=== PATIENT | male | born 1955 | race Caucasian/White ===

== ENCOUNTER 2018-08-03 20:40 | Inpatient (IN) | payer MEDICAID, OTHER ==
[2018-08-03] MEDS ORDERED: SOLU-Medrol IV ONE (20:52)
[2018-08-03] MEDS ORDERED: DUONEB *Not for PRN Use IH ONE (20:52)
[2018-08-03] MEDS ORDERED: MAGNESIUM SULFATE 2GM/50ML 2 GM/50 ML BAG IV ONE (21:02)
--- NOTE | 2018-08-03 21:15 | Emergency Department Report ---
ED Chest Pain HPI - General Stated Complaint: CHEST PAIN Time Seen by Provider: 08/03/18 20:43 Source: patient Mode of arrival: Stretcher Limitations: No Limitations - History of Present Illness Initial Comments: 62-year-old male with a past medical history of continued smoking, Osteoarthritis, HIV with undetectable viral load on meds, COPD without home oxygen use, HTN, elevated cholesterol, and family history of CAD presents to the hospital complaints of intermittent shortness of breath and chest tightness for the last several days. Symptoms worse with exertion. Patient does have some wheezing and states he uses a bronchodilator at home one time today with minimal improvement. Patient denies cough, fever, leg edema, or calf tenderness. He is on Eliquis for an unknown reason. He states he has several doctors but can not recall any of the names. He only has a card for Dr. Hurtado who is a pain specialist. Pt a sees a pain specialist for chronic back pain and denies being pain medications at this time. Pt did provide a written list of his meds that will be placed in the chart by RN. - Related Data Home Medications Medication Instructions Recorded Confirmed Last Taken Apixaban [Eliquis] 5 mg PO BID 08/03/18 08/03/18 Unknown Losartan-Hctz 50-12.5 mg Tab 1 each PO DAILY 08/03/18 08/04/18 Unknown Lovastatin 20 mg PO DAILY 08/03/18 08/03/18 Unknown Tamsulosin [Flomax] 0.4 mg PO DAILY 08/03/18 08/04/18 Unknown Triumeq 600-50-300 mg Tablet 1 each DAILY 08/03/18 08/04/18 Unknown clonazePAM 1 mg PO PRN PRN 08/03/18 08/04/18 1 Day Ago ~08/03/18 Previous Rx's Medication Instructions Recorded Last Taken Type Prednisone [predniSONE 10 mg 10 mg PO QDAY #5 tab.ds.pk 01/23/13 Unknown Rx (6-Day Pack, 21 Tabs)] traMADol [Ultram] 50 mg PO Q6HR PRN #20 tablet 12/21/15 Unknown Rx Allergies Allergy/AdvReac Type Severity Reaction Status Date / Time No Known Allergies Allergy Verified 01/22/13 22:23 Heart Score - HEART Score History: Moderately suspicious EKG: Normal Age: 45-65 Risk factors: > 3 risk factors or hx of atherosclerotic disease Troponin: < normal limit HEART Score: 4 ED Review of Systems ROS: Stated complaint: CHEST PAIN Other details as noted in HPI Comment: All other systems reviewed and negative ED Past Medical Hx - Past Medical History Hx Hypertension: Yes Hx COPD: Yes Hx HIV: Yes Additional medical history: Elevated Cholesterol & Chronic back pain. - Social History Smoking Status: Former Smoker Substance Use Type: None - Medications Home Medications: Home Medications Medication Instructions Recorded Confirmed Last Taken Type Prednisone [predniSONE 10 mg 10 mg PO QDAY #5 tab.ds.pk 01/23/13 08/04/18 Unknown Rx (6-Day Pack, 21 Tabs)] traMADol [Ultram] 50 mg PO Q6HR PRN #20 tablet 12/21/15 08/04/18 Unknown Rx Apixaban [Eliquis] 5 mg PO BID 08/03/18 08/03/18 Unknown History Losartan-Hctz 50-12.5 mg Tab 1 each PO DAILY 08/03/18 08/04/18 Unknown History Lovastatin 20 mg PO DAILY 08/03/18 08/03/18 Unknown History Tamsulosin [Flomax] 0.4 mg PO DAILY 08/03/18 08/04/18 Unknown History Triumeq 600-50-300 mg Tablet 1 each DAILY 08/03/18 08/04/18 Unknown History clonazePAM 1 mg PO PRN PRN 08/03/18 08/04/18 1 Day Ago History ~08/03/18 ED Physical Exam - Other Other exam information: General: No limitations, patient is alert in no acute distress Head exam: Atraumatic, normocephalic Eyes exam: Normal appearance ENT: Moist mucous membrane Neck exam: Normal inspection, full range of motion, no meningismus nontender Respiratory exam: Bilateral expiratory wheezing, tachypnea or accessory muscle use Cardiovascular: Normal rate and rhythm, normal heart sounds Abdomen: Soft, nondistended, and nontender, with normal bowel sounds, no rebound, or guarding Extremity: Full range of motion normal inspection no deformity, no calf tenderness or edema Back: Normal Inspection, full range of motion, no tenderness Neurologic: Alert, oriented x3, cranial nerves intact, no motor or sensory deficit Psychiatric: normal affect, normal mood Skin: Warm, dry, intact ED Course Vital Signs 08/03/18 08/03/18 08/03/18 20:53 20:56 21:00 Temperature 98.3 F Pulse Rate 87 85 86 Pulse Rate [ 82 Right Lower Lobe] Respiratory 16 18 18 Rate Respiratory 18 Rate [Right Lower Lobe] Blood Pressure 132/91 132/91 132/91 O2 Sat by Pulse 99 99 100 Oximetry 08/03/18 08/03/18 08/03/18 21:25 21:30 22:00 Temperature Pulse Rate 88 90 Pulse Rate [ Right Lower Lobe] Respiratory 18 18 42 H Rate Respiratory Rate [Right Lower Lobe] Blood Pressure 131/86 131/86 O2 Sat by Pulse 99 97 97 Oximetry 08/03/18 08/03/18 08/03/18 22:37 23:00 23:31 Temperature Pulse Rate 85 82 86 Pulse Rate [ Right Lower Lobe] Respiratory 13 22 16 Rate Respiratory Rate [Right Lower Lobe] Blood Pressure 131/86 131/84 131/84 O2 Sat by Pulse 96 93 94 Oximetry 08/04/18 00:00 Temperature Pulse Rate 80 Pulse Rate [ Right Lower Lobe] Respiratory 18 Rate Respiratory Rate [Right Lower Lobe] Blood Pressure 141/82 O2 Sat by Pulse 96 Oximetry GUIDO score - Guido Score Age > 65: (0) No Aspirin use within the Past 7 Days: (0) No 3 or more CAD Risk Factors: (1) Yes 2 or more Angina events in past 24 hrs: (1) Yes Known CAD with more than 50% Stenosis: (0) No Elevated Cardiac Markers: (0) No ST Deviation Greater than 0.5mm: (0) No GUIDO Score: 2 ED Medical Decision Making - Lab Data Result diagrams: 08/03/18 21:04 08/03/18 21:04 Lab Results 08/03/18 08/03/18 08/03/18 Range/Units 21:04 21:04 21:04 WBC 8.6 (4.5-11.0) K/mm3 RBC 3.55 L (3.65-5.03) M/mm3 Hgb 9.9 L (11.8-15.2) gm/dl Hct 30.8 L (35.5-45.6) % MCV 87 (84-94) fl MCH 28 (28-32) pg MCHC 32 (32-34) % RDW 16.8 H (13.2-15.2) % Plt Count 313 (140-440) K/mm3 Lymph % (Auto) 24.4 (13.4-35.0) % Hunt % (Auto) 11.5 H (0.0-7.3) % Eos % (Auto) 1.4 (0.0-4.3) % Baso % (Auto) 0.5 (0.0-1.8) % Lymph # 2.1 (1.2-5.4) K/mm3 Hunt # 1.0 H (0.0-0.8) K/mm3 Eos # 0.1 (0.0-0.4) K/mm3 Baso # 0.0 (0.0-0.1) K/mm3 Seg Neutrophils % 62.2 (40.0-70.0) % Seg Neutrophils # 5.3 (1.8-7.7) K/mm3 PT 14.4 (12.2-14.9) Sec. INR 1.05 (0.87-1.13) APTT 24.7 (24.2-36.6) Sec. Sodium 143 (137-145) mmol/L Potassium 3.9 (3.6-5.0) mmol/L Chloride 101.8 (98-107) mmol/L Carbon Dioxide 28 (22-30) mmol/L Anion Gap 17 mmol/L BUN 22 H (9-20) mg/dL Creatinine 1.8 H (0.8-1.5) mg/dL Estimated GFR 38 ml/min BUN/Creatinine Ratio 12 % Glucose 116 H (75-100) mg/dL Calcium 8.2 L (8.4-10.2) mg/dL Total Bilirubin 0.30 (0.1-1.2) mg/dL AST 29 (5-40) units/L ALT 17 (7-56) units/L Alkaline Phosphatase 60 (35-129) units/L Troponin T < 0.010 (0.00-0.029) ng/mL Total Protein 7.1 (6.3-8.2) g/dL Albumin 3.8 L (3.9-5) g/dL Albumin/Globulin Ratio 1.2 % - EKG Data -: EKG Interpreted by Mi EKG shows normal: sinus rhythm, axis (82), QRS complexes (qrs 106), ST-T waves (no stemi/t inv) Rate: normal - Radiology Data Radiology results: report reviewed PROCEDURE: XR CHEST 1V AP TECHNIQUE: Chest radiograph single view. HISTORY: sob, cp COMPARISONS: None . FINDINGS: Heart: Normal. Mediastinum/Vessels: Normal. Lungs/Pleural space: No infiltrate, effusion, or pneumothorax. Bony thorax: No acute osseous abnormality. Life support devices: None. IMPRESSION: No radiographic evidence of acute cardiopulmonary abnormality. - Medical Decision Making pt tx with nebs and steroids cp and sob due to copd vs cardiac unclear hx on eliquis plan to admit for further tx trop and ekg unremarkable - Differential Diagnosis copd, mi, unstable angina, pneumothorax, PE Critical Care Time: No Critical care attestation.: If time is entered above; I have spent that time in minutes in the direct care of this critically ill patient, excluding procedure time. ED Disposition Clinical Impression: COPD exacerbation, Chest pain, HIV (human immunodeficiency virus infection), Anticoagulant long-term use Disposition: OP ADMIT IP TO THIS HOSP Is pt being admited?: Yes Condition: Stable Time of Disposition: 22:07 (Hospitalist)
[2018-08-03 21:30] LABS: Basophils % (Auto) 0.5 % (0.0-1.8); Eosinophils # (Auto) 0.1 K/mm3 (0.0-0.4); Eosinophils % (Auto) 1.4 % (0.0-4.3); Hematocrit 30.8 % (35.5-45.6); Hemoglobin 9.9 gm/dl (11.8-15.2); Lymphocytes # (Auto) 2.1 K/mm3 (1.2-5.4); Lymphocytes % (Auto) 24.4 % (13.4-35.0); Mean Corpuscular HGB Conc 32 % (32-34); Mean Corpuscular Volume 87 fl (84-94); Monocytes % (Auto) 11.5 % (0.0-7.3); Platelet Count 313 K/mm3 (140-440); Red Blood Count 3.55 M/mm3 (3.65-5.03); Red Cell Distribution Width 16.8 % (13.2-15.2)
[2018-08-03 21:33] LABS: INR 1.05 (0.87-1.13)
[2018-08-03 21:34] LABS: Partial Thromboplastin Time 24.7 Sec. (24.2-36.6)
[2018-08-03 21:36] LABS: Alanine Aminotransferase 17 units/L (7-56); Albumin 3.8 g/dL (3.9-5); BUN/Creatinine Ratio 12; Blood Urea Nitrogen 22 mg/dL (9-20); Calcium 8.2 mg/dL (8.4-10.2); Hemolysis Index 3
--- NOTE | 2018-08-03 22:01 | XRay Report ---
PROCEDURE: XR CHEST 1V AP TECHNIQUE: Chest radiograph single view. HISTORY: sob, cp COMPARISONS: None . FINDINGS: Heart: Normal. Mediastinum/Vessels: Normal. Lungs/Pleural space: No infiltrate, effusion, or pneumothorax. Bony thorax: No acute osseous abnormality. Life support devices: None. IMPRESSION: No radiographic evidence of acute cardiopulmonary abnormality. This document is electronically signed by Kathleen Mcfadden MD., August 03 2018 09:59:09 PM ET
[2018-08-03] MEDS ORDERED: SODIUM CHLORIDE FLUSH SYRINGE 10 ML IV PRN (22:25)
[2018-08-03] MEDS ORDERED: ZOFRAN IV PRN (22:25)
[2018-08-03] MEDS ORDERED: PROVENTIL IH PRN (22:25)
[2018-08-03] MEDS ORDERED: DILAUDID IV PRN (22:28)
[2018-08-03] MEDS ORDERED: NITROSTAT SL PRN (22:29)
[2018-08-03] MEDS ORDERED: APRESOLINE IV PRN (22:35)
--- NOTE | 2018-08-03 23:02 | History and Physical Report ---
<VINNY LIN - Last Filed: 08/03/18 23:09> History of Present Illness Date of examination: 08/03/18 Date of admission: 08/03/18 22:26 Chief complaint: Chest pain and shortness of breath History of present illness: 62-year-old male who is an ongoing smoker with history of chronic back pain (sees Dr. Hurtado), DVT anticoagulated on Eliquis, COPD, HIV (undetectable viral loads compliant with antiretroviral meds), hypertension, hyperlipidemia who presents to [facility] ED with complaints of intermittent substernal chest for a day. Patient states that his symptoms began early this morning while sleeping. He was awakened from sleep with chest pain. He describes his pain as intermittent squeezing pressure with radiation to left upper extremity and posterior cervical area . He rates it 10/10. His pain is aggravated with exertion and relieved with pain medicine. Additionally patient complains of intermittent chest tightness, wheezing and shortness of breath for the past 2-3 days. Patient states that he tried using has bronchodilators with minimal relief. Admits: Cough, nausea, intermittent chest pain, shortness of breath at rest, wheezing Denies fever, vomiting, sputum production, hemoptysis, headache, visual disturb ances, gait dysfunction, or recent sick contacts Past History Past Medical History: COPD, DVT, HIV/AIDS, hypertension, hyperlipidemia Past Surgical History: No surgical history Social history: smoking (X4 to 5 cigarettes per day) Family history: no significant family history Medications and Allergies Allergies Allergy/AdvReac Type Severity Reaction Status Date / Time No Known Allergies Allergy Verified 01/22/13 22:23 Home Medications Medication Instructions Recorded Confirmed Last Taken Type Prednisone [predniSONE 10 mg 10 mg PO QDAY #5 tab.ds.pk 01/23/13 Unknown Rx (6-Day Pack, 21 Tabs)] traMADol [Ultram] 50 mg PO Q6HR PRN #20 tablet 12/21/15 Unknown Rx Apixaban [Eliquis] 5 mg PO BID 08/03/18 08/03/18 Unknown History Losartan-Hctz 50-12.5 mg Tab mg PO 08/03/18 Unknown History Lovastatin 20 mg PO DAILY 08/03/18 08/03/18 Unknown History Tamsulosin [Flomax] PO DAILY 08/03/18 Unknown History Triumeq 600-50-300 mg Tablet 50 DAILY 08/03/18 Unknown History clonazePAM 1 mg PO PRN 08/03/18 Unknown History Active Meds: Active Medications Acetaminophen (Tylenol) 650 mg PO Q4H PRN PRN Reason: Pain MILD(1-3)/Fever >100.5/KOENIG Albuterol (Proventil) 2.5 mg IH Q3HRT PRN PRN Reason: Shortness Of Breath Albuterol/Ipratropium (Duoneb *Not For Prn Use*) 1 ampul IH Q6HRT [facility] Amlodipine Besylate (Norvasc) 10 mg PO QDAY [facility] Apixaban (Eliquis) 5 mg PO BID [facility]; Protocol Aspirin (Baby Aspirin) 81 mg PO QDAY [facility] Atorvastatin Calcium (Lipitor) 40 mg PO QHS [facility] Budesonide (Pulmicort) 0.5 mg IH Q12HRT [facility] Docusate Sodium (Colace) 100 mg PO BID [facility] Hydralazine HCl (Apresoline) 10 mg IV Q4HR PRN PRN Reason: Blood Pressure Hydromorphone HCl (Dilaudid) 0.5 mg IV Q3H PRN PRN Reason: Pain , Severe (7-10) Stop: 08/04/18 23:59 Sodium Chloride (Nacl 0.9% 1000 Ml) 1,000 mls @ 100 mls/hr IV DIRECT [facility] Methylprednisolone Sodium Succinate (Solu-Medrol) 60 mg IV Q8HR [facility] Miscellaneous Medication (Triumeq 600-50-300 Mg Tablet) 600 mg PO DAILY [facility] Morphine Sulfate (Morphine) 2 mg IV Q4H PRN PRN Reason: Pain, Moderate (4-6) Stop: 08/04/18 23:59 Nicotine (Habitrol) 14 mg TD QDAY [facility] Nitroglycerin (Nitrostat) 0.4 mg SL Q5M PRN PRN Reason: Chest Pain Ondansetron HCl (Zofran) 4 mg IV Q8H PRN PRN Reason: Nausea And Vomiting Sodium Chloride (Sodium Chloride Flush Syringe 10 Ml) 10 ml IV BID [facility] Sodium Chloride (Sodium Chloride Flush Syringe 10 Ml) 10 ml IV PRN PRN PRN Reason: LINE FLUSH Tamsulosin HCl (Flomax) 0.4 mg PO DAILY [facility] Review of Systems All systems: negative (reviewed in no additional unremarkable complaints except as noted below) Cardiovascular: chest pain (with radiation to left upper extremity and left posterior cervical area), shortness of breath Respiratory: cough, congestion, wheezing Exam - Physical Exam Narrative exam: Physical exam General appearance: Present: No acute distress, alert and oriented 3, poor historian - EENT Eyes: Present: PERRL, EOM intact ENT: hearing intact, poor dentition - Neck Neck: Present: supple, normal ROM - Respiratory Respiratory effort: Non-labored Respiratory: Scattered wheezing with poor air movement - Cardiovascular Heart rate: 82 (bpm) Rhythm: Sinus rhythm Heart Sounds: Present: S1 & S2. Absent: rub, click - Extremities Extremities: no ischemia, pulses intact, - Peripheral Assessment Peripheral Pulses: within normal limits - Abdominal General gastrointestinal: soft, non-tender, normal bowel sounds - Integumentary Integumentary: Present: warm, dry - Musculoskeletal Musculoskeletal: generalized weakness -Neurological Neurological: Able to move all extremities - Psychiatric Psychiatric: cooperative - Constitutional Vitals: Temp Pulse Resp BP Pulse Ox 98.3 F 85 13 131/86 96 08/03/18 20:56 08/03/18 22:37 08/03/18 22:37 08/03/18 22:37 08/03/18 22:37 Results - Labs CBC & Chem 7: 08/03/18 21:04 08/03/18 21:04 Labs: Laboratory Last Values WBC 8.6 K/mm3 (4.5-11.0) 08/03/18 21:04 RBC 3.55 M/mm3 (3.65-5.03) L 08/03/18 21:04 Hgb 9.9 gm/dl (11.8-15.2) L 08/03/18 21:04 Hct 30.8 % (35.5-45.6) L 08/03/18 21:04 MCV 87 fl (84-94) 08/03/18 21:04 MCH 28 pg (28-32) 08/03/18 21:04 MCHC 32 % (32-34) 08/03/18 21:04 RDW 16.8 % (13.2-15.2) H 08/03/18 21:04 Plt Count 313 K/mm3 (140-440) 08/03/18 21:04 Lymph % (Auto) 24.4 % (13.4-35.0) 08/03/18 21:04 [place] % (Auto) 11.5 % (0.0-7.3) H 08/03/18 21:04 Eos % (Auto) 1.4 % (0.0-4.3) 08/03/18 21:04 Baso % (Auto) 0.5 % (0.0-1.8) 08/03/18 21:04 Lymph # 2.1 K/mm3 (1.2-5.4) 08/03/18 21:04 [place] # 1.0 K/mm3 (0.0-0.8) H 08/03/18 21:04 Eos # 0.1 K/mm3 (0.0-0.4) 08/03/18 21:04 Baso # 0.0 K/mm3 (0.0-0.1) 08/03/18 21:04 Seg Neutrophils % 62.2 % (40.0-70.0) 08/03/18 21:04 Seg Neutrophils # 5.3 K/mm3 (1.8-7.7) 08/03/18 21:04 PT 14.4 Sec. (12.2-14.9) 08/03/18 21:04 INR 1.05 (0.87-1.13) 08/03/18 21:04 APTT 24.7 Sec. (24.2-36.6) 08/03/18 21:04 Sodium 143 mmol/L (137-145) 08/03/18 21:04 Potassium 3.9 mmol/L (3.6-5.0) 08/03/18 21:04 Chloride 101.8 mmol/L (98-107) 08/03/18 21:04 Carbon Dioxide 28 mmol/L (22-30) 08/03/18 21:04 17 mmol/L 08/03/18 21:04 BUN 22 mg/dL (9-20) H 08/03/18 21:04 1.8 mg/dL (0.8-1.5) H 08/03/18 21:04 Estimated GFR 38 ml/min 08/03/18 21:04 12 % 08/03/18 21:04 Glucose 116 mg/dL (75-100) H 08/03/18 21:04 Calcium 8.2 mg/dL (8.4-10.2) L 08/03/18 21:04 0.30 mg/dL (0.1-1.2) 08/03/18 21:04 AST 29 units/L (5-40) 08/03/18 21:04 ALT 17 units/L (7-56) 08/03/18 21:04 60 units/L (35-129) 08/03/18 21:04 < 0.010 ng/mL (0.00-0.029) 08/03/18 21:04 7.1 g/dL (6.3-8.2) 08/03/18 21:04 3.8 g/dL (3.9-5) L 08/03/18 21:04 1.2 % 08/03/18 21:04 - Imaging and Cardiology EKG: image reviewed (sinus rhythm 82 bpm) Chest x-ray: report reviewed (No radiographic evidence of acute cardiopulmonary abnormality.), image reviewed Assessment and Plan Assessment and plan: 62-year-old male who is an ongoing smoker with history of chronic back pain (Dr. Hurtado), DVT anticoagulated on Eliquis, COPD, HIV (undetectable viral load compliant with antiretroviral meds), hypertension, hyperlipidemia who presents to [facility] ED with complaints of intermittent substernal chest radiating to left upper extremity and posterior cervical area for a day. Troponin negative 1. EKG unrevealing acute ischemic abnormalities. CXR unrevealing for acute cardiopulmonary abnormalities. On auscultation scattered wheezing with poor air movement noted. Patient has wet cough with no sputum production. We will admit to telemetry for further evaluation. R/O ACS AE COPD HTN HLD HIV Hx DVT on Eliquis Dehydration ANGELIC Tobacco abuse Plan: Continue supportive care Continuous telemetry monitoring Stress test (treadmill) pending for a.m. ASA 81mg, Lipitor 40 mg daily at bedtime Continue anti-retroviral medication Monitor BP Norvasc 10 mg daily; IV hydralazine when necessary Continue this 5 mg twice a day Hydrate with NS 100 mL/hr Monitor BUN/creatinine if no improvement will consider nephrology consult Counseled for smoking cessation, start nicotine patch Start Levaquin 500 mg every 24 hours 5 doses Schedule DuoNeb nebs and Pulmicort, albuterol when necessary Mucinex DVT PPX on Eliquis and SCD's Advance Directives: No VTE prophylaxis?: Chemical Plan of care discussed with patient/family: Yes <JUAN MTIMOTHY Gilliam - Last Filed: 08/03/18 23:53> History of Present Illness Date of admission: 08/03/18 22:26 Medications and Allergies Active Meds: Active Medications Abacavir Sulfate (Ziagen) 600 mg PO DAILY [facility] Acetaminophen (Tylenol) 650 mg PO Q4H PRN PRN Reason: Pain MILD(1-3)/Fever >100.5/KOENIG Albuterol (Proventil) 2.5 mg IH Q3HRT PRN PRN Reason: Shortness Of Breath Albuterol/Ipratropium (Duoneb *Not For Prn Use*) 1 ampul IH Q6HRT [facility] Amlodipine Besylate (Norvasc) 10 mg PO QDAY [facility] Apixaban (Eliquis) 5 mg PO BID [facility]; Protocol Aspirin (Baby Aspirin) 81 mg PO QDAY [facility] Atorvastatin Calcium (Lipitor) 40 mg PO QHS [facility] Budesonide (Pulmicort) 0.5 mg IH Q12HRT [facility] Docusate Sodium (Colace) 100 mg PO BID [facility] Hydralazine HCl (Apresoline) 10 mg IV Q4HR PRN PRN Reason: Blood Pressure Hydromorphone HCl (Dilaudid) 0.5 mg IV Q3H PRN PRN Reason: Pain , Severe (7-10) Stop: 08/04/18 23:59 Sodium Chloride (Nacl 0.9% 1000 Ml) 1,000 mls @ 100 mls/hr IV DIRECT [facility] Levofloxacin/Dextrose (Levaquin 500mg/100ml) 500 mg in 100 mls @ 100 mls/hr IV ONCE ONE; Protocol Stop: 08/04/18 10:59 Levofloxacin/Dextrose (Levaquin 250mg/50ml) 250 mg in 50 mls @ 50 mls/hr IV Q24HR [facility]; Protocol Lamivudine (Epivir) 300 mg PO DAILY [facility] Methylprednisolone Sodium Succinate (Solu-Medrol) 60 mg IV Q8HR [facility] Morphine Sulfate (Morphine) 2 mg IV Q4H PRN PRN Reason: Pain, Moderate (4-6) Stop: 08/04/18 23:59 Nicotine (Habitrol) 14 mg TD QDAY [facility] Nitroglycerin (Nitrostat) 0.4 mg SL Q5M PRN PRN Reason: Chest Pain Ondansetron HCl (Zofran) 4 mg IV Q8H PRN PRN Reason: Nausea And Vomiting Sodium Chloride (Sodium Chloride Flush Syringe 10 Ml) 10 ml IV BID [facility] Sodium Chloride (Sodium Chloride Flush Syringe 10 Ml) 10 ml IV PRN PRN PRN Reason: LINE FLUSH Tamsulosin HCl (Flomax) 0.4 mg PO DAILY [facility] Exam - Constitutional Vitals: Temp Pulse Resp BP Pulse Ox 98.3 F 85 13 131/86 96 08/03/18 20:56 08/03/18 22:37 08/03/18 22:37 08/03/18 22:37 08/03/18 22:37 Results - Labs CBC & Chem 7: 08/03/18 21:04 08/03/18 21:04 Labs: Laboratory Last Values WBC 8.6 K/mm3 (4.5-11.0) 08/03/18 21:04 RBC 3.55 M/mm3 (3.65-5.03) L 08/03/18 21:04 Hgb 9.9 gm/dl (11.8-15.2) L 08/03/18 21:04 Hct 30.8 % (35.5-45.6) L 08/03/18 21:04 MCV 87 fl (84-94) 08/03/18 21:04 MCH 28 pg (28-32) 08/03/18 21:04 MCHC 32 % (32-34) 08/03/18 21:04 RDW 16.8 % (13.2-15.2) H 08/03/18 21:04 Plt Count 313 K/mm3 (140-440) 08/03/18 21:04 Lymph % (Auto) 24.4 % (13.4-35.0) 08/03/18 21:04 [place] % (Auto) 11.5 % (0.0-7.3) H 08/03/18 21:04 Eos % (Auto) 1.4 % (0.0-4.3) 08/03/18 21:04 Baso % (Auto) 0.5 % (0.0-1.8) 08/03/18 21:04 Lymph # 2.1 K/mm3 (1.2-5.4) 08/03/18 21:04 [place] # 1.0 K/mm3 (0.0-0.8) H 08/03/18 21:04 Eos # 0.1 K/mm3 (0.0-0.4) 08/03/18 21:04 Baso # 0.0 K/mm3 (0.0-0.1) 08/03/18 21:04 Seg Neutrophils % 62.2 % (40.0-70.0) 08/03/18 21:04 Seg Neutrophils # 5.3 K/mm3 (1.8-7.7) 08/03/18 21:04 PT 14.4 Sec. (12.2-14.9) 08/03/18 21:04 INR 1.05 (0.87-1.13) 08/03/18 21:04 APTT 24.7 Sec. (24.2-36.6) 08/03/18 21:04 Sodium 143 mmol/L (137-145) 08/03/18 21:04 Potassium 3.9 mmol/L (3.6-5.0) 08/03/18 21:04 Chloride 101.8 mmol/L (98-107) 08/03/18 21:04 Carbon Dioxide 28 mmol/L (22-30) 08/03/18 21:04 17 mmol/L 08/03/18 21:04 BUN 22 mg/dL (9-20) H 08/03/18 21:04 1.8 mg/dL (0.8-1.5) H 08/03/18 21:04 Estimated GFR 38 ml/min 08/03/18 21:04 12 % 08/03/18 21:04 Glucose 116 mg/dL (75-100) H 08/03/18 21:04 Calcium 8.2 mg/dL (8.4-10.2) L 08/03/18 21:04 0.30 mg/dL (0.1-1.2) 08/03/18 21:04 AST 29 units/L (5-40) 08/03/18 21:04 ALT 17 units/L (7-56) 08/03/18 21:04 60 units/L (35-129) 08/03/18 21:04 < 0.010 ng/mL (0.00-0.029) 08/03/18 21:04 7.1 g/dL (6.3-8.2) 08/03/18 21:04 3.8 g/dL (3.9-5) L 08/03/18 21:04 1.2 % 08/03/18 21:04 Assessment and Plan Assessment and plan: I saw and evaluated the patient. I agree with the findings and the plan of care as documented in the Nurse Practitioner's~note, with the following corrections and additions.
[2018-08-04] MEDS: NACL 0.9% 1000 ML 1,000 ML IV SCH (00:56)
[2018-08-04] MEDS: SODIUM CHLORIDE FLUSH SYRINGE 10 ML IV SCH ×3 (00:57→22:00)
[2018-08-04] MEDS: DUONEB *Not for PRN Use IH SCH ×4 (01:39→19:20)
[2018-08-04 05:35] LABS: Hematocrit 29.3 % (35.5-45.6); Hemoglobin 9.6 gm/dl (11.8-15.2); Mean Corpuscular HGB Conc 33 % (32-34); Mean Corpuscular Volume 86 fl (84-94); Platelet Count 278 K/mm3 (140-440); Red Blood Count 3.41 M/mm3 (3.65-5.03); Red Cell Distribution Width 16.5 % (13.2-15.2)
[2018-08-04] MEDS: SOLU-Medrol IV SCH ×3 (05:43→22:00)
[2018-08-04 06:00] LABS: Calcium 7.7 mg/dL (8.4-10.2)
[2018-08-04] MEDS ORDERED: LEXISCAN IV ONE ×2 (08:18)
[2018-08-04 08:53] LABS: Basophils % (Manual) 0 % (0.0-1.8); Eosinophils % (Manual) 0 % (0.0-4.3); Monocytes % (Manual) 0 % (0.0-7.3); Total Cells Counted 100
[2018-08-04 08:54] LABS: Anisocytosis Few; Ovalocytes Few; Platelet Estimate Consistent w Auto
[2018-08-04] MEDS: BABY ASPIRIN PO SCH (09:57)
[2018-08-04] MEDS: COLACE PO SCH ×2 (09:57→22:00)
[2018-08-04] MEDS: ELIQUIS PO SCH ×2 (09:58→22:00)
[2018-08-04] MEDS: FLOMAX PO SCH (09:58)
[2018-08-04] MEDS: HABITROL TD SCH (09:58)
[2018-08-04] MEDS ORDERED: LEVAQUIN 500MG/100ML 500 MG/100 ML BAG IV ONE (10:00)
[2018-08-04] MEDS ORDERED: NON-FORMULARY (Triumeq 600-50-300 Mg Tablet 600 MG) PO SCH (10:00)
[2018-08-04] MEDS ORDERED: LEVAQUIN 500MG/100ML 500 MG/100 ML BAG IV SCH (10:00)
[2018-08-04] MEDS: NORVASC PO SCH (10:12)
[2018-08-04] MEDS: TYLENOL PO PRN (10:36)
[2018-08-04] MEDS: MORPHINE IV PRN ×2 (10:48→17:07)
[2018-08-04] MEDS: PULMICORT IH SCH ×2 (10:52→19:20)
[2018-08-04] MEDS: ZIAGEN PO SCH (13:39)
[2018-08-04] MEDS: EPIVIR PO SCH (13:42)
[2018-08-04] MEDS: TIVICAY PO SCH (13:43)
--- NOTE | 2018-08-04 23:32 | Progress Note ---
Assessment and Plan Assessment and plan: 62-year-old male who is an ongoing smoker with history of chronic back pain (Dr. Hurtado), DVT anticoagulated on Eliquis, COPD, HIV (undetectable viral load compliant with antiretroviral meds), hypertension, hyperlipidemia who presents to [facility] with complaints of intermittent substernal chest radiating to left upper extremity and posterior cervical area for a day. Troponin negative 1. EKG unrevealing acute ischemic abnormalities. CXR unrevealing for acute cardiopulmonary abnormalities. On auscultation scattered wheezing with poor air movement noted. Patient has wet cough with no sputum production. We will admit to telemetry for further evaluation. Atypical chest pain secondary to COPD AE COPD HTN HLD HIV Hx DVT on Eliquis Dehydration ANGELIC Tobacco abuse Plan: Continue supportive care Continuous telemetry monitoring Stress test (treadmill) pending for a.m. ASA 81mg, Lipitor 40 mg daily at bedtime Continue anti-retroviral medication Monitor BP Norvasc 10 mg daily; IV hydralazine when necessary Continue this 5 mg twice a day Monitor BUN/creatinine if no improvement will consider nephrology consult Counseled for smoking cessation, start nicotine patch Continue Levaquin 500 mg every 24 hours 5 doses Schedule DuoNeb nebs and Pulmicort, albuterol when necessary Mucinex DVT PPX on Eliquis and SCD's History Interval history: Patient seen and examined, still wheezing. No new complaints. Hospitalist Physical - Physical exam Narrative exam: VITAL SIGNS: Reviewed. GENERAL: The patient appeared well nourished and normally developed, Vital signs as documented. HEAD: No signs of head trauma. EYES: Pupils are equal. Extraocular motions intact. EARS: Hearing grossly intact. MOUTH: Oropharynx is normal. NECK: No adenopathy, no JVD. CHEST: Chest with wheezin breath sounds bilaterally. No rales, or rhonchi. CARDIAC: Regular rate and rhythm. S1 and S2, without murmurs, gallops, or rubs. VASCULAR: No Edema. Peripheral pulses normal and equal in all extremities. ABDOMEN: Soft, non tender and non distended. No rebound or guarding, and no masses palpated. Bowel Sounds normal. MUSCULOSKELETAL: Good range of motion of all major joints. Extremities without clubbing, cyanosis or edema. NEUROLOGIC EXAM: Alert and oriented x 3 No focal sensory or strength deficits. Speech normal. Follows commands. PSYCHIATRIC: Mood normal. SKIN: No rash or lesions. - Constitutional Vitals: Temp Pulse Resp BP Pulse Ox 98.6 F 91 H 17 145/85 99 08/04/18 19:25 08/04/18 19:31 08/04/18 19:31 08/04/18 19:25 08/04/18 19:25 Results - Labs CBC & Chem 7: 08/04/18 04:48 08/04/18 04:48 Labs: Laboratory Last Values WBC 3.9 K/mm3 (4.5-11.0) L 08/04/18 04:48 RBC 3.41 M/mm3 (3.65-5.03) L 08/04/18 04:48 Hgb 9.6 gm/dl (11.8-15.2) L 08/04/18 04:48 Hct 29.3 % (35.5-45.6) L 08/04/18 04:48 MCV 86 fl (84-94) 08/04/18 04:48 MCH 28 pg (28-32) 08/04/18 04:48 MCHC 33 % (32-34) 08/04/18 04:48 RDW 16.5 % (13.2-15.2) H 08/04/18 04:48 Plt Count 278 K/mm3 (140-440) 08/04/18 04:48 Lymph % (Auto) 24.4 % (13.4-35.0) 08/03/18 21:04 [place] % (Auto) 11.5 % (0.0-7.3) H 08/03/18 21:04 Eos % (Auto) 1.4 % (0.0-4.3) 08/03/18 21:04 Baso % (Auto) 0.5 % (0.0-1.8) 08/03/18 21:04 Lymph # 2.1 K/mm3 (1.2-5.4) 08/03/18 21:04 [place] # 1.0 K/mm3 (0.0-0.8) H 08/03/18 21:04 Eos # 0.1 K/mm3 (0.0-0.4) 08/03/18 21:04 Baso # 0.0 K/mm3 (0.0-0.1) 08/03/18 21:04 Add Manual Diff Complete 08/04/18 04:48 Total Counted 100 08/04/18 04:48 Seg Neutrophils % Hitting Coach 08/04/18 04:48 Seg Neuts % (Manual) 95.0 % (40.0-70.0) H 08/04/18 04:48 0 % 08/04/18 04:48 5.0 % (13.4-35.0) L 08/04/18 04:48 Reactive Lymphs % (Man) 0 % 08/04/18 04:48 0 % (0.0-7.3) 08/04/18 04:48 0 % (0.0-4.3) 08/04/18 04:48 0 % (0.0-1.8) 08/04/18 04:48 0 % 08/04/18 04:48 0 % 08/04/18 04:48 0 % 08/04/18 04:48 0 % 08/04/18 04:48 Nucleated RBC % Not Reportable 08/04/18 04:48 Seg Neutrophils # 5.3 K/mm3 (1.8-7.7) 08/03/18 21:04 Seg Neutrophils # Man 3.7 K/mm3 (1.8-7.7) 08/04/18 04:48 Band Neutrophils # 0.0 K/mm3 08/04/18 04:48 0.2 K/mm3 (1.2-5.4) L 08/04/18 04:48 Abs React Lymphs (Man) 0.0 K/mm3 08/04/18 04:48 0.0 K/mm3 (0.0-0.8) 08/04/18 04:48 0.0 K/mm3 (0.0-0.4) 08/04/18 04:48 0.0 K/mm3 (0.0-0.1) 08/04/18 04:48 0.0 K/mm3 08/04/18 04:48 0.0 K/mm3 08/04/18 04:48 0.0 K/mm3 08/04/18 04:48 Blast Cells # 0.0 K/mm3 08/04/18 04:48 WBC Morphology Not Reportable 08/04/18 04:48 Hypersegmented Neuts Not Reportable 08/04/18 04:48 Hyposegmented Neuts Not Reportable 08/04/18 04:48 Hypogranular Neuts Not Reportable 08/04/18 04:48 Not Reportable 08/04/18 04:48 Not Reportable 08/04/18 04:48 Not Reportable 08/04/18 04:48 Not Reportable 08/04/18 04:48 Not Reportable 08/04/18 04:48 Not Reportable 08/04/18 04:48 Consistent w auto 08/04/18 04:48 Not Reportable 08/04/18 04:48 Plt Clumps, EDTA Not Reportable 08/04/18 04:48 Not Reportable 08/04/18 04:48 Not Reportable 08/04/18 04:48 Not Reportable 08/04/18 04:48 Plt Morphology Comment Not Reportable 08/04/18 04:48 RBC Morphology Not Reportable 08/04/18 04:48 Dimorphic RBCs Not Reportable 08/04/18 04:48 Not Reportable 08/04/18 04:48 Not Reportable 08/04/18 04:48 Not Reportable 08/04/18 04:48 Few 08/04/18 04:48 Not Reportable 08/04/18 04:48 Not Reportable 08/04/18 04:48 Not Reportable 08/04/18 04:48 Not Reportable 08/04/18 04:48 Not Reportable 08/04/18 04:48 Not Reportable 08/04/18 04:48 Not Reportable 08/04/18 04:48 Few 08/04/18 04:48 Not Reportable 08/04/18 04:48 Not Reportable 08/04/18 04:48 Not Reportable 08/04/18 04:48 Not Reportable 08/04/18 04:48 Not Reportable 08/04/18 04:48 Not Reportable 08/04/18 04:48 Not Reportable 08/04/18 04:48 Acanthocytes (Spur) Not Reportable 08/04/18 04:48 Rouleaux Not Reportable 08/04/18 04:48 Not Reportable 08/04/18 04:48 Not Reportable 08/04/18 04:48 Not Reportable 08/04/18 04:48 Not Reportable 08/04/18 04:48 Hem Pathologist Commnt No 08/04/18 04:48 PT 14.4 Sec. (12.2-14.9) 08/03/18 21:04 INR 1.05 (0.87-1.13) 08/03/18 21:04 APTT 24.7 Sec. (24.2-36.6) 08/03/18 21:04 Sodium 139 mmol/L (137-145) 08/04/18 04:48 Potassium 3.8 mmol/L (3.6-5.0) 08/04/18 04:48 Chloride 101.1 mmol/L (98-107) 08/04/18 04:48 Carbon Dioxide 24 mmol/L (22-30) 08/04/18 04:48 18 mmol/L 08/04/18 04:48 BUN 20 mg/dL (9-20) 08/04/18 04:48 1.5 mg/dL (0.8-1.5) 08/04/18 04:48 Estimated GFR 47 ml/min 08/04/18 04:48 13 % 08/04/18 04:48 Glucose 170 mg/dL (75-100) H 08/04/18 04:48 Calcium 7.7 mg/dL (8.4-10.2) L 08/04/18 04:48 0.30 mg/dL (0.1-1.2) 08/03/18 21:04 AST 29 units/L (5-40) 08/03/18 21:04 ALT 17 units/L (7-56) 08/03/18 21:04 60 units/L (35-129) 08/03/18 21:04 < 0.010 ng/mL (0.00-0.029) 08/04/18 04:48 7.1 g/dL (6.3-8.2) 08/03/18 21:04 3.8 g/dL (3.9-5) L 08/03/18 21:04 1.2 % 08/03/18 21:04 Active Medications - Current Medications Current Medications: Generic Name Dose Route Start Last Admin Trade Name Freq PRN Reason Stop Dose Admin Abacavir Sulfate 600 mg 08/04/18 10:00 08/04/18 13:39 Ziagen PO 600 mg DAILY NADIA Administration Acetaminophen 650 mg 08/03/18 22:25 08/04/18 10:36 Tylenol PO 650 mg Q4H PRN Administration Pain MILD(1-3)/Fever >100.5/KOENIG Albuterol 2.5 mg 08/03/18 22:25 Proventil IH Q3HRT PRN Shortness Of Breath Albuterol/Ipratropium 1 ampul 08/04/18 02:00 08/04/18 19:20 Duoneb *Not For Prn Use* IH 1 ampul Q6HRT NADIA Administration Amlodipine Besylate 10 mg 08/04/18 10:00 08/04/18 10:12 Norvasc PO 10 mg QDAY NADIA Administration Apixaban 5 mg 08/04/18 10:00 08/04/18 09:58 Eliquis PO 5 mg BID NADIA Administration Protocol Aspirin 81 mg 08/04/18 10:00 08/04/18 09:57 Baby Aspirin PO 81 mg QDAY NADIA Administration Atorvastatin Calcium 40 mg 08/04/18 22:00 Lipitor PO QHS NADIA Budesonide 0.5 mg 08/04/18 08:00 08/04/18 19:20 Pulmicort IH 0.5 mg Q12HRT NADIA Administration Docusate Sodium 100 mg 08/04/18 10:00 08/04/18 09:57 Colace PO 100 mg BID NADIA Administration Hydralazine HCl 10 mg 08/03/18 22:35 Apresoline IV Q4HR PRN Blood Pressure Hydromorphone HCl 0.5 mg 08/03/18 22:28 Dilaudid IV 08/04/18 23:59 Q3H PRN Pain , Severe (7-10) Sodium Chloride 1,000 mls @ 100 mls/hr 08/03/18 23:00 08/04/18 00:56 Nacl 0.9% 1000 Ml IV 100 mls/hr DIRECT NADIA Administration Levofloxacin/Dextrose 250 mg in 50 mls @ 50 mls/hr 08/05/18 10:00 Levaquin 250mg/50ml IV Q24HR NADIA Protocol Lamivudine 300 mg 08/04/18 10:00 08/04/18 13:42 Epivir PO 300 mg DAILY NADIA Administration Methylprednisolone Sodium Succinate 60 mg 08/04/18 06:00 08/04/18 13:49 Solu-Medrol IV 60 mg Q8HR NADIA Administration Morphine Sulfate 2 mg 08/03/18 22:25 08/04/18 17:07 Morphine IV 08/04/18 23:59 2 mg Q4H PRN Administration Pain, Moderate (4-6) Nicotine 14 mg 08/04/18 10:00 08/04/18 09:58 Habitrol TD 14 mg QDAY NADIA Administration Nitroglycerin 0.4 mg 08/03/18 22:29 Nitrostat SL Q5M PRN Chest Pain Ondansetron HCl 4 mg 08/03/18 22:25 Zofran IV Q8H PRN Nausea And Vomiting Sodium Chloride 10 ml 08/04/18 10:00 08/04/18 10:19 Sodium Chloride Flush Syringe 10 Ml IV 10 ml BID NADIA Administration Sodium Chloride 10 ml 08/03/18 22:25 Sodium Chloride Flush Syringe 10 Ml IV PRN PRN LINE FLUSH Tamsulosin HCl 0.4 mg 08/04/18 10:00 08/04/18 09:58 Flomax PO 0.4 mg DAILY NADIA Administration
[2018-08-05] MEDS: DUONEB *Not for PRN Use IH SCH ×3 (01:31→13:15)
[2018-08-05] MEDS: SOLU-Medrol IV SCH ×2 (05:08→14:40)
[2018-08-05] MEDS: PULMICORT IH SCH (08:32)
[2018-08-05] MEDS ORDERED: LEVAQUIN 250MG/50ML 250 MG/50 ML BAG IV SCH (10:00)
[2018-08-05] MEDS: BABY ASPIRIN PO SCH (11:27)
[2018-08-05] MEDS: COLACE PO SCH (11:28)
[2018-08-05] MEDS: ELIQUIS PO SCH (11:28)
[2018-08-05] MEDS: TIVICAY PO SCH (11:28)
[2018-08-05] MEDS: ZIAGEN PO SCH (11:29)
[2018-08-05] MEDS: HABITROL TD SCH (11:30)
[2018-08-05] MEDS: NORVASC PO SCH (11:30)
[2018-08-05] MEDS: SODIUM CHLORIDE FLUSH SYRINGE 10 ML IV SCH (11:30)
[2018-08-05] MEDS: EPIVIR PO SCH (11:31)
[2018-08-05] MEDS: FLOMAX PO SCH (11:32)
[2018-08-05] MEDS: NACL 0.9% 1000 ML 1,000 ML IV SCH (11:40)
[2018-08-05] MEDS: TYLENOL PO PRN (12:20)
[2018-08-05] MEDS ORDERED: ULTRAM PO PRN (14:16)
[2018-08-05 16:54] VITALS: BP 131/83
--- NOTE | 2018-08-05 17:25 | Discharge Summary ---
Providers - Providers Date of Admission: 08/03/18 22:26 Attending physician: TIMOTHY MCGOWAN MD Primary care physician: CONY SIMPSON Hospitalization Reason for admission: chest pain Condition: Stable Hospital course: 62-year-old male who is an ongoing smoker with history of chronic back pain (Dr. Hurtado), DVT anticoagulated on Eliquis, COPD, HIV (undetectable viral load compliant with antiretroviral meds), hypertension, hyperlipidemia who presents to [facility] with complaints of intermittent substernal chest radiating to left upper extremity and posterior cervical area for a day. Troponin negative 1. EKG unrevealing acute ischemic abnormalities. CXR unrevealing for acute cardiopulmonary abnormalities. On auscultation scattered wheezing with poor air movement noted. Patient has wet cough with no sputum production. We will admit to telemetry for further evaluation. Patient was treated for copd exacerbation and improving, he underwent a stress test Which was negative for ischemia. his chest pain is now improved Atypical chest pain secondary to costochondritis Costochondritis AE COPD HTN HLD HIV Hx DVT on Eliquis Dehydration ANGELIC Tobacco abuse Disposition: DC-01 TO HOME OR SELFCARE Time spent for discharge: 35 mins Core Measure Documentation - Palliative Care Palliative Care/ Comfort Measures: Not Applicable - Core Measures Any of the following diagnoses?: none Exam - Physical Exam Narrative exam: VITAL SIGNS: Reviewed. GENERAL: The patient appeared well nourished and normally developed, Vital signs as documented. HEAD: No signs of head trauma. EYES: Pupils are equal. Extraocular motions intact. EARS: Hearing grossly intact. MOUTH: Oropharynx is normal. NECK: No adenopathy, no JVD. CHEST: Chest with wheezin breath sounds bilaterally. No rales, or rhonchi. CARDIAC: Regular rate and rhythm. S1 and S2, without murmurs, gallops, or rubs. VASCULAR: No Edema. Peripheral pulses normal and equal in all extremities. ABDOMEN: Soft, non tender and non distended. No rebound or guarding, and no masses palpated. Bowel Sounds normal. MUSCULOSKELETAL: Good range of motion of all major joints. Extremities without clubbing, cyanosis or edema. NEUROLOGIC EXAM: Alert and oriented x 3 No focal sensory or strength deficits. Speech normal. Follows commands. PSYCHIATRIC: Mood normal. SKIN: No rash or lesions. - Constitutional Vitals: Temp Pulse Resp BP Pulse Ox 98.1 F 96 H 18 131/83 98 08/05/18 16:52 08/05/18 16:52 08/05/18 16:52 08/05/18 16:52 08/05/18 16:52 Plan Follow up with: CONY SIMPSON MD [Primary Care Provider] - 7 Days Prescriptions: Aspirin [Aspirin BABY CHEW TAB] 81 mg PO QDAY #30 tab.chew Tamsulosin [Flomax] 0.4 mg PO DAILY #30 capsule Fluticasone Propionate [Flovent Hfa] 10.6 gm IH BID 30 Days aer.w.adap Nicotine [Habitrol] 14 mg TD QDAY #4 patch Lovastatin 20 mg PO DAILY #30 amLODIPine [Norvasc] 10 mg PO QDAY #30 tablet Prednisone [predniSONE 10 mg (6-Day Pack, 21 Tabs)] 10 mg PO QDAY #5 tab.ds.pk
--- NOTE | 2018-08-07 10:43 | Treadmill Report ---
NUCLEAR MYOCARDIAL PERFUSION IMAGING REPORT INDICATION FOR PROCEDURE: Myocardial perfusion images were obtained using 1-day protocol. Rest images followed by post-stress images and post-stress gated images were obtained using technetium pyrophosphate sestamibi. Post-stress images showed mild moderate sized apical defect, which appears to be more or less fixed during the rest images. No significant reversibility noted. Transient ischemic dilation ratio was found to be 1.08. The patient's left ventricular size was found to be normal with normal contractility. Calculated ejection fraction of 56% noted. FINAL IMPRESSION: 1. No evidence of significant ischemia on myocardial perfusion imaging. 2. Normal left ventricular systolic function, calculated to be 56% noted. 3. Prognostically, this was found to be low-risk study for future cardiac events. [facility]# [id number] ADAIR/MALORIE
== END 2018-08-05 19:00 | disposition home or self-care (01) | DRG 191 ==
LOC: ED 20:40 → 4A 22:26
PROVIDERS: ADMIT Internal Medicine; ATTEND Internal Medicine
DX: J44.1 Chronic obstructive pulmonary disease with (acute) exacerbation (principal); N17.9 Acute kidney failure, unspecified; B20 Human immunodeficiency virus [HIV] disease; M94.0 Chondrocostal junction syndrome [Tietze]; M19.90 Unspecified osteoarthritis, unspecified site; I10 Essential (primary) hypertension; G89.29 Other chronic pain; M54.9 Dorsalgia, unspecified; F17.210 Nicotine dependence, cigarettes, uncomplicated; E78.5 Hyperlipidemia, unspecified; Z86.718 Personal history of other venous thrombosis and embolism; Z79.01 Long term (current) use of anticoagulants
CPT/HCPCS: 36415; 71045; 78452; 80048; 80053; 84484; 85007; 85025; 85610; 85730; 93005; 93010; 93017; 94640; 96365; 96375; 99406; G0378; A9270-GY; A9502; J1170; J1956; J2270; J2785; J2930; J3475; J7030

== ENCOUNTER 2018-08-09 07:56 | Inpatient (IN) | payer MEDICAID, OTHER ==
[2018-08-09 08:48] LABS: Basophils % (Auto) 0.2 % (0.0-1.8); Eosinophils # (Auto) 0.2 K/mm3 (0.0-0.4); Eosinophils % (Auto) 2.7 % (0.0-4.3); Hematocrit 27.9 % (35.5-45.6); Hemoglobin 9.3 gm/dl (11.8-15.2); Lymphocytes # (Auto) 1.1 K/mm3 (1.2-5.4); Lymphocytes % (Auto) 19.6 % (13.4-35.0); Mean Corpuscular HGB Conc 33 % (32-34); Mean Corpuscular Volume 84 fl (84-94); Monocytes # (Auto) 0.6 K/mm3 (0.0-0.8); Monocytes % (Auto) 9.7 % (0.0-7.3); Platelet Count 306 K/mm3 (140-440); Red Blood Count 3.33 M/mm3 (3.65-5.03); Red Cell Distribution Width 16.6 % (13.2-15.2)
[2018-08-09 09:00] LABS: Albumin 3.7 g/dL (3.9-5); Calcium 7.5 mg/dL (8.4-10.2)
--- NOTE | 2018-08-09 09:31 | Emergency Department Report ---
ED Chest Pain HPI - General Chief Complaint: Chest Pain Stated Complaint: TIGHTNESS IN CHEST Time Seen by Provider: 08/09/18 09:29 Source: EMS Mode of arrival: Stretcher Limitations: No Limitations - History of Present Illness Initial Comments: This is a 62-year-old man former IV drug abuser positive for HIV continued tobacco dependency (cigarettes) with recurrent chest pain. Patient describes the chest pain as tightness in his central anterior chest which somewhat radiates to the neck. He denies arm radiation. He is also complaining of shortness of breath associated with his COPD. He was recently discharged from this hospital and did have a negative stress test. Patient does not complain of leg pain or swelling. Patient's current meds do include Eliquis. Hospitalization 07/2018: Reason for admission: chest pain Condition: Stable Hospital course: 62-year-old male who is an ongoing smoker with history of chronic back pain (Dr. Hurtado), DVT anticoagulated on Eliquis, COPD, HIV (undetectable viral load compliant with antiretroviral meds), hypertension, hyperlipidemia who presents to [facility] ED with complaints of intermittent substernal chest radiating to left upper extremity and posterior cervical area for a day. Troponin negative 1. EKG unrevealing acute ischemic abnormalities. CXR unrevealing for acute cardiop ulmonary abnormalities. On auscultation scattered wheezing with poor air movement noted. Patient has wet cough with no sputum production. We will admit to telemetry for further evaluation. Patient was treated for copd exacerbation and improving, he underwent a stress test Which was negative for ischemia. his chest pain is now improved Atypical chest pain secondary to costochondritis Costochondritis AE COPD HTN HLD HIV Hx DVT on Eliquis Dehydration ANGELIC Tobacco abuse Complaint: chest pain -: hour(s) (since about 3 in the morning) Onset: during rest Pain Location: substernal Pain Radiation: neck Severity: moderate Quality: tightness Consistency: constant (states still present) Improves With: nothing Worsens With: nothing re: dyspnea Other Symptoms: denies: cough, fever, syncope Treatments Prior to Arrival: none Aspirin use within the Past 7 Days: (0) No - Related Data Home Medications Medication Instructions Recorded Confirmed Last Taken Apixaban [Eliquis] 5 mg PO BID 08/03/18 08/03/18 Unknown Losartan-Hctz 50-12.5 mg Tab 1 each PO DAILY 08/03/18 08/04/18 Unknown Triumeq 600-50-300 mg Tablet 1 each DAILY 08/03/18 08/04/18 Unknown clonazePAM 1 mg PO PRN PRN 08/03/18 08/04/18 1 Day Ago ~08/03/18 Previous Rx's Medication Instructions Recorded Last Taken Type traMADol [Ultram 50 MG tab] 50 mg PO Q6HR PRN #20 tablet 12/21/15 Unknown Rx Aspirin [Aspirin BABY CHEW TAB] 81 mg PO QDAY #30 tab.chew 08/05/18 Unknown Rx Fluticasone Propionate [Flovent 10.6 gm IH BID 30 Days aer.w.adap 08/05/18 Unknown Rx Hfa] Lovastatin 20 mg PO DAILY #30 08/05/18 Unknown Rx Nicotine [Habitrol] 14 mg TD QDAY #4 patch 08/05/18 Unknown Rx Prednisone [predniSONE 10 mg 10 mg PO QDAY #5 tab.ds.pk 08/05/18 Unknown Rx (6-Day Pack, 21 Tabs)] Tamsulosin [Flomax] 0.4 mg PO DAILY #30 capsule 08/05/18 Unknown Rx amLODIPine [Norvasc] 10 mg PO QDAY #30 tablet 08/05/18 Unknown Rx Allergies Allergy/AdvReac Type Severity Reaction Status Date / Time No Known Allergies Allergy Verified 01/22/13 22:23 Heart Score - HEART Score History: Moderately suspicious EKG: Normal Age: 45-65 Risk factors: > 3 risk factors or hx of atherosclerotic disease Troponin: < normal limit HEART Score: 4 ED Review of Systems ROS: Stated complaint: TIGHTNESS IN CHEST Other details as noted in HPI Constitutional: denies: chills, fever Eyes: denies: eye pain, eye discharge, vision change ENT: denies: ear pain, throat pain Respiratory: shortness of breath, wheezing. denies: cough Cardiovascular: chest pain. denies: palpitations Endocrine: no symptoms reported Gastrointestinal: denies: abdominal pain, nausea, diarrhea Genitourinary: denies: urgency, dysuria Musculoskeletal: denies: back pain, joint swelling, arthralgia Skin: denies: rash, lesions Neurological: denies: headache, weakness, paresthesias Psychiatric: denies: anxiety, depression Hematological/Lymphatic: denies: easy bleeding, easy bruising ED Past Medical Hx - Past Medical History Hx Hypertension: Yes Hx Asthma: Yes Hx COPD: Yes Hx HIV: Yes Additional medical history: Elevated Cholesterol & Chronic back pain. - Social History Smoking Status: Unknown if ever smoked - Medications Home Medications: Home Medications Medication Instructions Recorded Confirmed Last Taken Type traMADol [Ultram 50 MG tab] 50 mg PO Q6HR PRN #20 tablet 12/21/15 08/04/18 Unknown Rx Apixaban [Eliquis] 5 mg PO BID 08/03/18 08/03/18 Unknown History Losartan-Hctz 50-12.5 mg Tab 1 each PO DAILY 08/03/18 08/04/18 Unknown History Triumeq 600-50-300 mg Tablet 1 each DAILY 08/03/18 08/04/18 Unknown History clonazePAM 1 mg PO PRN PRN 08/03/18 08/04/18 1 Day Ago History ~08/03/18 Aspirin [Aspirin BABY CHEW TAB] 81 mg PO QDAY #30 tab.chew 08/05/18 Unknown Rx Fluticasone Propionate [Flovent 10.6 gm IH BID 30 Days aer.w.adap 08/05/18 Unknown Rx Hfa] Lovastatin 20 mg PO DAILY #30 08/05/18 Unknown Rx Nicotine [Habitrol] 14 mg TD QDAY #4 patch 08/05/18 Unknown Rx Prednisone [predniSONE 10 mg 10 mg PO QDAY #5 tab.ds.pk 08/05/18 Unknown Rx (6-Day Pack, 21 Tabs)] Tamsulosin [Flomax] 0.4 mg PO DAILY #30 capsule 08/05/18 Unknown Rx amLODIPine [Norvasc] 10 mg PO QDAY #30 tablet 08/05/18 Unknown Rx ED Physical Exam - General Limitations: No Limitations General appearance: alert, in no apparent distress - Head Head exam: Present: atraumatic, normocephalic - Eye Eye exam: Present: normal appearance. Absent: scleral icterus - ENT ENT exam: Present: mucous membranes moist - Neck Neck exam: Present: normal inspection - Respiratory Respiratory exam: Present: wheezes (end expiratory), decreased breath sounds, other (increased work of breathing). Absent: respiratory distress - Cardiovascular Cardiovascular Exam: Present: regular rate, normal rhythm. Absent: systolic murmur, diastolic murmur, rubs, gallop - GI/Abdominal GI/Abdominal exam: Present: soft, normal bowel sounds - Rectal Rectal exam: Present: deferred - Extremities Exam Extremities exam: Present: normal inspection - Back Exam Back exam: Present: normal inspection - Neurological Exam Neurological exam: Present: alert, oriented X3 - Psychiatric Psychiatric exam: Present: normal affect, normal mood - Skin Skin exam: Present: warm, dry, intact, normal color. Absent: rash ED Course Vital Signs 08/09/18 08/09/18 07:58 09:34 Temperature 98.2 F 97.6 F Pulse Rate 85 66 Respiratory 16 18 Rate Blood Pressure 122/90 Blood Pressure 123/80 [Right] O2 Sat by Pulse 96 Oximetry - Reevaluation(s) Reevaluation #1: Given a DuoNeb. Ultimately given Solu-Medrol. A d-dimer over 350 is noted. This is discussed with Dr. MCGOWAN. CTA is ordered. I do note although the patient is presumably taking Eliquis, his coagulation studies are totally nor mal. 08/09/18 11:22 08/09/18 11:23 08/09/18 11:27 08/09/18 11:28 GUIDO score - Guido Score Age > 65: (0) No Aspirin use within the Past 7 Days: (0) No 3 or more CAD Risk Factors: (1) Yes 2 or more Angina events in past 24 hrs: (1) Yes Known CAD with more than 50% Stenosis: (0) No Elevated Cardiac Markers: (0) No ST Deviation Greater than 0.5mm: (0) No GUIDO Score: 2 ED Medical Decision Making - Lab Data Result diagrams: 08/09/18 08:35 08/09/18 08:35 Laboratory Results - last 24 hr 08/09/18 08/09/18 08:35 08:35 WBC 5.7 RBC 3.33 L Hgb 9.3 L Hct 27.9 L MCV 84 MCH 28 MCHC 33 RDW 16.6 H Plt Count 306 Lymph % (Auto) 19.6 Collier % (Auto) 9.7 H Eos % (Auto) 2.7 Baso % (Auto) 0.2 Lymph # 1.1 L Collier # 0.6 Eos # 0.2 Baso # 0.0 Seg Neutrophils % 67.8 Seg Neutrophils # 3.8 Sodium 141 Potassium 3.6 Chloride 100.7 Carbon Dioxide 30 Anion Gap 14 BUN 13 Creatinine 1.3 Estimated GFR 56 BUN/Creatinine Ratio 10 Glucose 108 H Calcium 7.5 L Total Bilirubin 0.40 AST 18 ALT 17 Alkaline Phosphatase 55 Total Protein 6.7 Albumin 3.7 L Albumin/Globulin Ratio 1.2 Laboratory Results - last 24 hr 08/09/18 08/09/18 08/09/18 08:35 08:35 08:35 WBC 5.7 RBC 3.33 L Hgb 9.3 L Hct 27.9 L MCV 84 MCH 28 MCHC 33 RDW 16.6 H Plt Count 306 Lymph % (Auto) 19.6 Collier % (Auto) 9.7 H Eos % (Auto) 2.7 Baso % (Auto) 0.2 Lymph # 1.1 L Collier # 0.6 Eos # 0.2 Baso # 0.0 Seg Neutrophils % 67.8 Seg Neutrophils # 3.8 PT INR APTT D-Dimer Sodium 141 Potassium 3.6 Chloride 100.7 Carbon Dioxide 30 Anion Gap 14 BUN 13 Creatinine 1.3 Estimated GFR 56 BUN/Creatinine Ratio 10 Glucose 108 H Calcium 7.5 L Magnesium 2.10 Total Bilirubin 0.40 Direct Bilirubin Indirect Bilirubin AST 18 ALT 17 Alkaline Phosphatase 55 NT-Pro-B Natriuret Pep Total Protein 6.7 Albumin 3.7 L Albumin/Globulin Ratio 1.2 TSH Free T4 PTH Intact 08/09/18 08/09/18 08/09/18 08:35 08:35 08:35 WBC RBC Hgb Hct MCV MCH MCHC RDW Plt Count Lymph % (Auto) Collier % (Auto) Eos % (Auto) Baso % (Auto) Lymph # Collier # Eos # Baso # Seg Neutrophils % Seg Neutrophils # PT INR APTT D-Dimer Sodium Potassium Chloride Carbon Dioxide Anion Gap BUN Creatinine Estimated GFR BUN/Creatinine Ratio Glucose Calcium Magnesium Total Bilirubin 0.40 Direct Bilirubin < 0.2 Indirect Bilirubin 0.2 AST 18 ALT 19 Alkaline Phosphatase 58 NT-Pro-B Natriuret Pep Total Protein 6.5 Albumin 3.8 L Albumin/Globulin Ratio 1.4 TSH 0.653 Free T4 1.76 H PTH Intact 25.41 08/09/18 08/09/18 08:35 08:35 WBC RBC Hgb Hct MCV MCH MCHC RDW Plt Count Lymph % (Auto) Collier % (Auto) Eos % (Auto) Baso % (Auto) Lymph # Collier # Eos # Baso # Seg Neutrophils % Seg Neutrophils # PT 13.6 INR 1.07 APTT 24.9 D-Dimer 364.66 H Sodium Potassium Chloride Carbon Dioxide Anion Gap BUN Creatinine Estimated GFR BUN/Creatinine Ratio Glucose Calcium Magnesium Total Bilirubin Direct Bilirubin Indirect Bilirubin AST ALT Alkaline Phosphatase NT-Pro-B Natriuret Pep 258.9 Total Protein Albumin Albumin/Globulin Ratio TSH Free T4 PTH Intact - EKG Data -: EKG Interpreted by Me EKG shows normal: sinus rhythm, axis, intervals, QRS complexes, ST-T waves Rate: normal - EKG Data Interpretation: no acute changes, other (somewhat low-voltage, right atrial enlargement.) - Radiology Data Radiology results: report reviewed Chest x-ray no acute process Critical care attestation.: If time is entered above; I have spent that time in minutes in the direct care of this critically ill patient, excluding procedure time. ED Disposition Clinical Impression: COPD exacerbation, Hypocalcemia, Elevated d-dimer Chest pain Qualifiers: Chest pain type: unspecified Qualified Code(s): R07.9 - Chest pain, unspecified HIV (human immunodeficiency virus infection) Qualifiers: HIV symptom status: unspecified Qualified Code(s): B20 - Human immunodeficiency virus [HIV] disease Anemia Qualifiers: Anemia type: unspecified type Qualified Code(s): D64.9 - Anemia, unspecified Disposition: 09 OP ADMIT IP TO THIS HOSP Is pt being admited?: Yes Does the pt Need Aspirin: Yes Condition: Stable Instructions: Chest Pain (ED), Chronic Obstructive Pulmonary Disease (ED) Referrals: BRINA GARCIA MD [Primary Care Provider] - 3-5 Days Time of Disposition: 11:29
[2018-08-09] MEDS ORDERED: DUONEB *Not for PRN Use IH ONE (09:40)
[2018-08-09] MEDS ORDERED: SODIUM CHLORIDE FLUSH SYRINGE 10 ML IV PRN ×2 (10:01→10:02)
[2018-08-09] MEDS ORDERED: NITROSTAT SL PRN (10:01)
[2018-08-09] MEDS ORDERED: TYLENOL PO PRN (10:02)
[2018-08-09] MEDS ORDERED: ZOFRAN IV PRN (10:02)
[2018-08-09] MEDS ORDERED: PROVENTIL IH PRN (10:03)
--- NOTE | 2018-08-09 10:13 | XRay Report ---
PROCEDURE: XR CHEST 1V AP TECHNIQUE: Chest, portable upright HISTORY: Chest Pain COMPARISON: 08/03/2018 FINDINGS: The heart size is normal. There is no pulmonary vascular congestion seen. Mediastinal contours are normal. Lungs are clear. There is no pleural effusion seen. There is no pneumothorax seen. IMPRESSION: No acute abnormality identified. This document is electronically signed by Maia Rosenberg MD., August 09 2018 10:11:57 AM ET
[2018-08-09 10:14] LABS: INR 1.07 (0.87-1.13)
[2018-08-09 10:15] LABS: Partial Thromboplastin Time 24.9 Sec. (24.2-36.6)
[2018-08-09] MEDS: SOLU-Medrol IV SCH ×2 (10:28→18:04)
[2018-08-09 10:34] LABS: Alanine Aminotransferase 19 units/L (7-56); Albumin 3.8 g/dL (3.9-5)
[2018-08-09 10:35] LABS: Bilirubin,Direct < 0.2 mg/dL (0-0.2)
[2018-08-09 10:41] LABS: Free T4 (Free Thyroxine) 1.76 ng/dL (0.76-1.46)
[2018-08-09] MEDS ORDERED: PULMICORT IH ONE (11:00)
[2018-08-09] MEDS ORDERED: BABY ASPIRIN PO ONE (11:30)
[2018-08-09] MEDS: BROVANA NEBU IH SCH ×2 (11:51→20:02)
--- NOTE | 2018-08-09 12:23 | Consultation ---
History of Present Illness Consult date: 08/09/18 Requesting physician: TIMOTHY MCGOWAN Consult reason: chest pain History of present illness: 62-year-old male who is an ongoing smoker with history of chronic back pain (Dr. Hurtado), DVT anticoagulated on Eliquis, COPD, HIV (undetectable viral load compliant with antiretroviral meds), hypertension, hyperlipidemia who presents to [facility] ED with complaints of intermittent substernal chest radiating to left upper extremity and posterior cervical area for a day. Troponin negative 1. EKG unrevealing acute ischemic abnormalities. CXR unrevealing for acute cardiopulmonary abnormalities. On auscultation scattered wheezing with poor air movement noted. Patient has wet cough with no sputum production. We will admit to telemetry for further evaluation. Patient was treated for copd exacerbation and improving, he underwent a stress test Which was negative for ischemia. his chest pain is now improved. Patient returns back to the emergency room having chest discomfort midsternal and takes deep breath patient has decreased breath sounds patient still smoker troponin has been negative reproducible-type pain Past History Past Medical History: COPD, DVT, HIV/AIDS, hypertension Social history: smoking. denies: alcohol abuse, prescription drug abuse Family history: denies: no significant family history Medications and Allergies Allergies Allergy/AdvReac Type Severity Reaction Status Date / Time No Known Allergies Allergy Verified 01/22/13 22:23 Home Medications Medication Instructions Recorded Confirmed Last Taken Type traMADol [Ultram 50 MG tab] 50 mg PO Q6HR PRN #20 tablet 12/21/15 08/04/18 Unknown Rx Apixaban [Eliquis] 5 mg PO BID 08/03/18 08/03/18 Unknown History Losartan-Hctz 50-12.5 mg Tab 1 each PO DAILY 08/03/18 08/04/18 Unknown History Triumeq 600-50-300 mg Tablet 1 each DAILY 08/03/18 08/04/18 Unknown History clonazePAM 1 mg PO PRN PRN 08/03/18 08/04/18 1 Day Ago History ~08/03/18 Aspirin [Aspirin BABY CHEW TAB] 81 mg PO QDAY #30 tab.chew 08/05/18 Unknown Rx Fluticasone Propionate [Flovent 10.6 gm IH BID 30 Days aer.w.adap 08/05/18 Unknown Rx Hfa] Lovastatin 20 mg PO DAILY #30 08/05/18 Unknown Rx Nicotine [Habitrol] 14 mg TD QDAY #4 patch 08/05/18 Unknown Rx Prednisone [predniSONE 10 mg 10 mg PO QDAY #5 tab.ds.pk 08/05/18 Unknown Rx (6-Day Pack, 21 Tabs)] Tamsulosin [Flomax] 0.4 mg PO DAILY #30 capsule 08/05/18 Unknown Rx amLODIPine [Norvasc] 10 mg PO QDAY #30 tablet 08/05/18 Unknown Rx Active Meds: Active Medications Acetaminophen (Tylenol) 650 mg PO Q4H PRN PRN Reason: Pain MILD(1-3)/Fever >100.5/KOENIG Albuterol (Proventil) 2.5 mg IH Q4H PRN PRN Reason: Shortness Of Breath Albuterol/Ipratropium (Duoneb *Not For Prn Use*) 1 ampul IH TIDRT [facility] Arformoterol Tartrate (Brovana Nebu) 15 mcg IH Q12HRT [facility] Last Admin: 08/09/18 11:51 Dose: Not Given Documented by: Atorvastatin Calcium (Lipitor) 40 mg PO QHS [facility] Budesonide (Pulmicort) 0.25 mg IH Q12HRT [facility] Methylprednisolone Sodium Succinate (Solu-Medrol) 80 mg IV Q8H [facility] Last Admin: 08/09/18 10:28 Dose: 80 mg Documented by: Nitroglycerin (Nitrostat) 0.4 mg SL Q5M PRN PRN Reason: Chest Pain Ondansetron HCl (Zofran) 4 mg IV Q8H PRN PRN Reason: Nausea And Vomiting Sodium Chloride (Sodium Chloride Flush Syringe 10 Ml) 10 ml IV PRN PRN PRN Reason: LINE FLUSH Sodium Chloride (Sodium Chloride Flush Syringe 10 Ml) 10 ml IV BID NADIA Sodium Chloride (Sodium Chloride Flush Syringe 10 Ml) 10 ml IV PRN PRN PRN Reason: LINE FLUSH Review of Systems All systems: negative (as per HPI) Physical Examination Vital Signs Temp Pulse Resp BP Pulse Ox 98.2 F 85 16 122/90 96 08/09/18 07:58 08/09/18 07:58 08/09/18 07:58 08/09/18 07:58 08/09/18 07:58 General appearance: no acute distress, well-nourished HEENT: Positive: PERRL, Mucus Membranes Moist Neck: Positive: neck supple, trachea midline Cardiac: Positive: Reg Rate and Rhythm, S1/S2. Negative: Audible Murmur Lungs: Positive: Decreased Breath Sounds Neuro: Positive: Grossly Intact Abdomen: Positive: Soft, Active Bowel Sounds. Negative: Tender, Distended Male genitourinary: Positive: normal Skin: Positive: Clear Incision: Cardiac Cath Site Musculoskeletal: No Pain, Normal Range of Motion Extremities: Present: normal. Absent: edema Results 08/09/18 08:35 08/09/18 08:35 Cardiac Enzymes 08/09/18 08/09/18 08/09/18 Range/Units 08:35 08:35 08:35 WBC 5.7 (4.5-11.0) K/mm3 RBC 3.33 L (3.65-5.03) M/mm3 Hgb 9.3 L (11.8-15.2) gm/dl Hct 27.9 L (35.5-45.6) % MCV 84 (84-94) fl MCH 28 (28-32) pg MCHC 33 (32-34) % RDW 16.6 H (13.2-15.2) % Plt Count 306 (140-440) K/mm3 Lymph % (Auto) 19.6 (13.4-35.0) % Emmet % (Auto) 9.7 H (0.0-7.3) % Eos % (Auto) 2.7 (0.0-4.3) % Baso % (Auto) 0.2 (0.0-1.8) % Lymph # 1.1 L (1.2-5.4) K/mm3 Emmet # 0.6 (0.0-0.8) K/mm3 Eos # 0.2 (0.0-0.4) K/mm3 Baso # 0.0 (0.0-0.1) K/mm3 Seg Neutrophils % 67.8 (40.0-70.0) % Seg Neutrophils # 3.8 (1.8-7.7) K/mm3 PT (12.2-14.9) Sec. INR (0.87-1.13) APTT (24.2-36.6) Sec. D-Dimer (0-234) ng/mlDDU POC ABG pH (7.35-7.45) POC ABG pCO2 (35-45) POC ABG pO2 (80-105) POC ABG HCO3 (22-26 mml/L) POC ABG Total CO2 (23-27mmol/L) POC ABG O2 Sat POC ABG Base Excess ((-2) - (+3)mmol/L) FiO2 % Sodium 141 (137-145) mmol/L Potassium 3.6 (3.6-5.0) mmol/L Chloride 100.7 (98-107) mmol/L Carbon Dioxide 30 (22-30) mmol/L Anion Gap 14 mmol/L BUN 13 (9-20) mg/dL Creatinine 1.3 (0.8-1.5) mg/dL Estimated GFR 56 ml/min BUN/Creatinine Ratio 10 % Glucose 108 H (75-100) mg/dL Calcium 7.5 L (8.4-10.2) mg/dL Magnesium 2.10 (1.7-2.3) mg/dL Total Bilirubin 0.40 (0.1-1.2) mg/dL Direct Bilirubin (0-0.2) mg/dL Indirect Bilirubin mg/dL AST 18 (5-40) units/L ALT 17 (7-56) units/L Alkaline Phosphatase 55 (35-129) units/L NT-Pro-B Natriuret Pep (0-900) pg/mL Total Protein 6.7 (6.3-8.2) g/dL Albumin 3.7 L (3.9-5) g/dL Albumin/Globulin Ratio 1.2 % TSH (0.270-4.200) mlU/mL Free T4 (0.76-1.46) ng/dL PTH Intact (15-65) pg/mL 08/09/18 08/09/18 08/09/18 Range/Units 08:35 08:35 08:35 WBC (4.5-11.0) K/mm3 RBC (3.65-5.03) M/mm3 Hgb (11.8-15.2) gm/dl Hct (35.5-45.6) % MCV (84-94) fl MCH (28-32) pg MCHC (32-34) % RDW (13.2-15.2) % Plt Count (140-440) K/mm3 Lymph % (Auto) (13.4-35.0) % Emmet % (Auto) (0.0-7.3) % Eos % (Auto) (0.0-4.3) % Baso % (Auto) (0.0-1.8) % Lymph # (1.2-5.4) K/mm3 Emmet # (0.0-0.8) K/mm3 Eos # (0.0-0.4) K/mm3 Baso # (0.0-0.1) K/mm3 Seg Neutrophils % (40.0-70.0) % Seg Neutrophils # (1.8-7.7) K/mm3 PT (12.2-14.9) Sec. INR (0.87-1.13) APTT (24.2-36.6) Sec. D-Dimer (0-234) ng/mlDDU POC ABG pH (7.35-7.45) POC ABG pCO2 (35-45) POC ABG pO2 (80-105) POC ABG HCO3 (22-26 mml/L) POC ABG Total CO2 (23-27mmol/L) POC ABG O2 Sat POC ABG Base Excess ((-2) - (+3)mmol/L) FiO2 % Sodium (137-145) mmol/L Potassium (3.6-5.0) mmol/L Chloride (98-107) mmol/L Carbon Dioxide (22-30) mmol/L Anion Gap mmol/L BUN (9-20) mg/dL Creatinine (0.8-1.5) mg/dL Estimated GFR ml/min BUN/Creatinine Ratio % Glucose (75-100) mg/dL Calcium (8.4-10.2) mg/dL Magnesium (1.7-2.3) mg/dL Total Bilirubin 0.40 (0.1-1.2) mg/dL Direct Bilirubin < 0.2 (0-0.2) mg/dL Indirect Bilirubin 0.2 mg/dL AST 18 (5-40) units/L ALT 19 (7-56) units/L Alkaline Phosphatase 58 (35-129) units/L NT-Pro-B Natriuret Pep (0-900) pg/mL Total Protein 6.5 (6.3-8.2) g/dL Albumin 3.8 L (3.9-5) g/dL Albumin/Globulin Ratio 1.4 % TSH 0.653 (0.270-4.200) mlU/mL Free T4 1.76 H (0.76-1.46) ng/dL PTH Intact 25.41 (15-65) pg/mL 08/09/18 08/09/18 08/09/18 Range/Units 08:35 08:35 12:14 WBC (4.5-11.0) K/mm3 RBC (3.65-5.03) M/mm3 Hgb (11.8-15.2) gm/dl Hct (35.5-45.6) % MCV (84-94) fl MCH (28-32) pg MCHC (32-34) % RDW (13.2-15.2) % Plt Count (140-440) K/mm3 Lymph % (Auto) (13.4-35.0) % Emmet % (Auto) (0.0-7.3) % Eos % (Auto) (0.0-4.3) % Baso % (Auto) (0.0-1.8) % Lymph # (1.2-5.4) K/mm3 Emmet # (0.0-0.8) K/mm3 Eos # (0.0-0.4) K/mm3 Baso # (0.0-0.1) K/mm3 Seg Neutrophils % (40.0-70.0) % Seg Neutrophils # (1.8-7.7) K/mm3 PT 13.6 (12.2-14.9) Sec. INR 1.07 (0.87-1.13) APTT 24.9 (24.2-36.6) Sec. D-Dimer 364.66 H (0-234) ng/mlDDU POC ABG pH 7.399 (7.35-7.45) POC ABG pCO2 45.3 H (35-45) POC ABG pO2 82 (80-105) POC ABG HCO3 28.0 (22-26 mml/L) POC ABG Total CO2 29 (23-27mmol/L) POC ABG O2 Sat 96 POC ABG Base Excess 3 ((-2) - (+3)mmol/L) FiO2 32 % Sodium (137-145) mmol/L Potassium (3.6-5.0) mmol/L Chloride (98-107) mmol/L Carbon Dioxide (22-30) mmol/L Anion Gap mmol/L BUN (9-20) mg/dL Creatinine (0.8-1.5) mg/dL Estimated GFR ml/min BUN/Creatinine Ratio % Glucose (75-100) mg/dL Calcium (8.4-10.2) mg/dL Magnesium (1.7-2.3) mg/dL Total Bilirubin (0.1-1.2) mg/dL Direct Bilirubin (0-0.2) mg/dL Indirect Bilirubin mg/dL AST (5-40) units/L ALT (7-56) units/L Alkaline Phosphatase (35-129) units/L NT-Pro-B Natriuret Pep 258.9 (0-900) pg/mL Total Protein (6.3-8.2) g/dL Albumin (3.9-5) g/dL Albumin/Globulin Ratio % TSH (0.270-4.200) mlU/mL Free T4 (0.76-1.46) ng/dL PTH Intact (15-65) pg/mL Coagulation 08/09/18 Range/Units 08:35 PT 13.6 (12.2-14.9) Sec. INR 1.07 (0.87-1.13) APTT 24.9 (24.2-36.6) Sec. CBC 08/09/18 Range/Units 08:35 WBC 5.7 (4.5-11.0) K/mm3 RBC 3.33 L (3.65-5.03) M/mm3 Hgb 9.3 L (11.8-15.2) gm/dl Hct 27.9 L (35.5-45.6) % Plt Count 306 (140-440) K/mm3 Lymph # 1.1 L (1.2-5.4) K/mm3 Emmet # 0.6 (0.0-0.8) K/mm3 Eos # 0.2 (0.0-0.4) K/mm3 Baso # 0.0 (0.0-0.1) K/mm3 Comprehensive Metabolic Panel 08/09/18 08/09/18 Range/Units 08:35 08:35 Sodium 141 (137-145) mmol/L Potassium 3.6 (3.6-5.0) mmol/L Chloride 100.7 (98-107) mmol/L Carbon Dioxide 30 (22-30) mmol/L BUN 13 (9-20) mg/dL Creatinine 1.3 (0.8-1.5) mg/dL Glucose 108 H (75-100) mg/dL Calcium 7.5 L (8.4-10.2) mg/dL Direct Bilirubin < 0.2 (0-0.2) mg/dL Indirect Bilirubin 0.2 mg/dL AST 18 18 (5-40) units/L ALT 17 19 (7-56) units/L Alkaline Phosphatase 55 58 (35-129) units/L Total Protein 6.7 6.5 (6.3-8.2) g/dL Albumin 3.7 L 3.8 L (3.9-5) g/dL - Imaging and Cardiology Stress echo: other (08/04/2018 normal myocardial perfusion scan no significant ischemia and normal LV function) EKG interpretations - Telemetry EKG Rhythm: Sinus Rhythm (normal sinus rhythm nonspecific ST-T is no change) Assessment and Plan Atypical chest pain possible costochondritis COPD Hypertension HIV DVT Recommend in view of recent negative stress negative troponin atypical chest pain treat patient with anti-inflammatories and for continued treatment of COPD he will have an echocardiogram for right-sided heart pressures
[2018-08-09] MEDS ORDERED: MORPHINE IV PRN (12:46)
[2018-08-09] MEDS ORDERED: NON-FORMULARY (Clonazepam 1 MG) PO PRN (12:47)
[2018-08-09] MEDS ORDERED: ULTRAM PO PRN (12:47)
--- NOTE | 2018-08-09 13:48 | Cat Scan Report ---
PROCEDURE: CT ANGIO CHEST TECHNIQUE: Computerized tomographic angiography of the chest was performed after the IV injection of iodinated nonionic contrast including image processing. The image data was postprocessed using 2-di mensional multiplanar reformatted (MPR) and 3-dimensional (MIP and/or volume rendered) techniques. Au tomated exposure control, adjustment of mA and/or kV according to patient size, or iterative reconstr uction dose optimization techniques were utilized. CT DOSE LENGTH PRODUCT: 517.4 mGycm HISTORY: chest pain and elevated d-dimer COMPARISONS: None . FINDINGS: Heart and pericardium: Normal. Thoracic aorta: Normal. Pulmonary vasculature: Normal. Lymph nodes: No enlarged thoracic lymph nodes. Lungs: Moderate to severe centrilobular and paraseptal emphysema is seen. Several calcified pulmonar y granulomas are seen. No noncalcified pulmonary nodules or masses are seen. Pleural space: No effusion, thickening, or pneumothorax. Musculoskeletal structures: No significant abnormality. Upper abdominal structures: A cluster of calcifications is seen in the right hepatic lobe. Colonic d iverticulosis is seen. No evidence of diverticulitis. The left gastric artery has a separate origin f rom the abdominal aorta. IMPRESSION: 1. No central or segmental pulmonary embolism. 2. Moderate to severe pulmonary emphysema. 3. Colonic diverticulosis. This document is electronically signed by Sharmila Chávez., August 09 2018 01:46:08 PM ET
[2018-08-09] MEDS: DUONEB *Not for PRN Use IH SCH ×2 (13:59→20:08)
[2018-08-09] MEDS: FLOMAX PO SCH (18:01)
[2018-08-09] MEDS: NORVASC PO SCH (18:02)
[2018-08-09] MEDS: HABITROL TD SCH ×2 (18:03→18:11)
--- NOTE | 2018-08-09 18:18 | History and Physical Report ---
History of Present Illness Date of examination: 08/09/18 Date of admission: 08/09/18 11:44 Chief complaint: shortness of breath and pleuritic chest pain History of present illness: 62-year-old male who is an ongoing smoker with history of chronic back pain (Dr. Hurtado), DVT anticoagulated on Eliquis, COPD, HIV (undetectable viral load compliant with antiretroviral meds), hypertension, hyperlipidemia who was recently discharged from the hospital with complaints of chest pain returns today with complaint of chest tightness and pressure with associated shortness of breath. On further evaluation appears that the patient when he has exacerbation of his COPD complaints of chest discomfort also. In the ER has recommended for admission due to wheezing but during my evaluation the patient consistently was asking for pain medication again he did not his primary care physicians and specialists as recommended on discharge. He had a recent stress test that was negative, but actively short of breath on my exam. Admits: Cough, nausea, intermittent chest pain, shortness of breath at rest, wheezing ROS: except as noted in the HPI all 14 point system have been reviewed and otherwise negative Past History Past Medical History: COPD, DVT, HIV/AIDS, hypertension, hyperlipidemia Past Surgical History: No surgical history Social history: smoking (X4 to 5 cigarettes per day) Family history: no significant family history Past History Past Medical History: COPD, DVT, HIV/AIDS, hypertension Social history: smoking. denies: alcohol abuse, prescription drug abuse Family history: denies: no significant family history Medications and Allergies Allergies Allergy/AdvReac Type Severity Reaction Status Date / Time No Known Allergies Allergy Verified 01/22/13 22:23 Home Medications Medication Instructions Recorded Confirmed Last Taken Type traMADol [Ultram 50 MG tab] 50 mg PO Q6HR PRN #20 tablet 12/21/15 08/09/18 Unknown Rx Apixaban [Eliquis] 5 mg PO BID 08/03/18 08/09/18 Unknown History Losartan-Hctz 50-12.5 mg Tab 1 each PO DAILY 08/03/18 08/09/18 Unknown History Triumeq 600-50-300 mg Tablet 1 each DAILY 08/03/18 08/09/18 Unknown History clonazePAM 1 mg PO PRN PRN 08/03/18 08/09/18 1 Day Ago History ~08/03/18 Aspirin [Aspirin BABY CHEW TAB] 81 mg PO QDAY #30 tab.chew 08/05/18 08/09/18 Unknown Rx Fluticasone Propionate [Flovent 10.6 gm IH BID 30 Days aer.w.adap 08/05/18 08/09/18 Unknown Rx Hfa] Lovastatin 20 mg PO DAILY #30 08/05/18 08/09/18 Unknown Rx Nicotine [Habitrol] 14 mg TD QDAY #4 patch 08/05/18 08/09/18 Unknown Rx Prednisone [predniSONE 10 mg 10 mg PO QDAY #5 tab.ds.pk 08/05/18 08/09/18 Unknown Rx (6-Day Pack, 21 Tabs)] Tamsulosin [Flomax] 0.4 mg PO DAILY #30 capsule 08/05/18 08/09/18 Unknown Rx amLODIPine [Norvasc] 10 mg PO QDAY #30 tablet 08/05/18 08/09/18 Unknown Rx Active Meds: Active Medications Abacavir Sulfate (Ziagen) 300 mg PO DAILY [facility] Acetaminophen (Tylenol) 650 mg PO Q4H PRN PRN Reason: Pain MILD(1-3)/Fever >100.5/KOENIG Albuterol (Proventil) 2.5 mg IH Q4H PRN PRN Reason: Shortness Of Breath Albuterol/Ipratropium (Duoneb *Not For Prn Use*) 1 ampul IH TIDRT [facility] Last Admin: 08/09/18 13:59 Dose: 1 ampul Documented by: Amlodipine Besylate (Norvasc) 10 mg PO QDAY [facility] Last Admin: 08/09/18 18:02 Dose: 10 mg Documented by: Apixaban (Eliquis) 5 mg PO BID [facility]; Protocol Arformoterol Tartrate (Brovana Nebu) 15 mcg IH Q12HRT [facility] Last Admin: 08/09/18 11:51 Dose: Not Given Documented by: Aspirin (Baby Aspirin) 81 mg PO QDAY [facility] Atorvastatin Calcium (Lipitor) 40 mg PO QHS [facility] Budesonide (Pulmicort) 0.25 mg IH Q12HRT [facility] Clonazepam (Klonopin) 1 mg PO BID PRN PRN Reason: anxiety Hydrochlorothiazide (Hctz) 12.5 mg PO QDAY [facility] Lamivudine (Epivir) 300 mg PO DAILY [facility] Losartan Potassium (Cozaar) 50 mg PO QDAY [facility] Methylprednisolone Sodium Succinate (Solu-Medrol) 80 mg IV Q8H [facility] Last Admin: 08/09/18 18:04 Dose: 80 mg Documented by: Morphine Sulfate (Morphine) 2 mg IV Q6H PRN PRN Reason: Pain, Moderate (4-6) Nicotine (Habitrol) 14 mg TD QDAY [facility] Last Admin: 08/09/18 18:11 Dose: Not Given Documented by: Nitroglycerin (Nitrostat) 0.4 mg SL Q5M PRN PRN Reason: Chest Pain Ondansetron HCl (Zofran) 4 mg IV Q8H PRN PRN Reason: Nausea And Vomiting Sodium Chloride (Sodium Chloride Flush Syringe 10 Ml) 10 ml IV PRN PRN PRN Reason: LINE FLUSH Sodium Chloride (Sodium Chloride Flush Syringe 10 Ml) 10 ml IV BID [facility] Sodium Chloride (Sodium Chloride Flush Syringe 10 Ml) 10 ml IV PRN PRN PRN Reason: LINE FLUSH Tamsulosin HCl (Flomax) 0.4 mg PO DAILY [facility] Last Admin: 08/09/18 18:01 Dose: 0.4 mg Documented by: Tramadol HCl (Ultram) 50 mg PO Q6H PRN PRN Reason: Pain (MILD to MODERATE) Last Admin: 08/09/18 18:02 Dose: 50 mg Documented by: Exam - Physical Exam Narrative exam: VITAL SIGNS: Reviewed. GENERAL: The patient appeared well nourished and normally developed, Vital signs as documented. HEAD: No signs of head trauma. EYES: Pupils are equal. Extraocular motions intact. EARS: Hearing grossly intact. MOUTH: Oropharynx is normal. NECK: No adenopathy, no JVD. CHEST: Chest with wheezing breath sounds bilaterally. No rales, or rhonchi. CARDIAC: Regular rate and rhythm. S1 and S2, without murmurs, gallops, or rubs. VASCULAR: No Edema. Peripheral pulses normal and equal in all extremities. ABDOMEN: Soft, non tender and non distended. No rebound or guarding, and no masses palpated. Bowel Sounds normal. MUSCULOSKELETAL: Good range of motion of all major joints. Extremities without clubbing, cyanosis or edema. NEUROLOGIC EXAM: Alert and oriented x 3 No focal sensory or strength deficits. Speech normal. Follows commands. PSYCHIATRIC: Mood normal. SKIN: No rash or lesions. - Constitutional Vitals: Temp Pulse Resp BP Pulse Ox 98.9 F 92 H 18 136/82 98 08/09/18 16:22 08/09/18 18:02 08/09/18 16:22 08/09/18 18:02 08/09/18 16:22 Results - Labs CBC & Chem 7: 08/10/18 03:56 08/10/18 03:56 Labs: Laboratory Last Values WBC 5.7 K/mm3 (4.5-11.0) 08/09/18 08:35 RBC 3.33 M/mm3 (3.65-5.03) L 08/09/18 08:35 Hgb 9.3 gm/dl (11.8-15.2) L 08/09/18 08:35 Hct 27.9 % (35.5-45.6) L 08/09/18 08:35 MCV 84 fl (84-94) 08/09/18 08:35 MCH 28 pg (28-32) 08/09/18 08:35 MCHC 33 % (32-34) 08/09/18 08:35 RDW 16.6 % (13.2-15.2) H 08/09/18 08:35 Plt Count 306 K/mm3 (140-440) 08/09/18 08:35 Lymph % (Auto) 19.6 % (13.4-35.0) 08/09/18 08:35 [place] % (Auto) 9.7 % (0.0-7.3) H 08/09/18 08:35 Eos % (Auto) 2.7 % (0.0-4.3) 08/09/18 08:35 Baso % (Auto) 0.2 % (0.0-1.8) 08/09/18 08:35 Lymph # 1.1 K/mm3 (1.2-5.4) L 08/09/18 08:35 [place] # 0.6 K/mm3 (0.0-0.8) 08/09/18 08:35 Eos # 0.2 K/mm3 (0.0-0.4) 08/09/18 08:35 Baso # 0.0 K/mm3 (0.0-0.1) 08/09/18 08:35 Seg Neutrophils % 67.8 % (40.0-70.0) 08/09/18 08:35 Seg Neutrophils # 3.8 K/mm3 (1.8-7.7) 08/09/18 08:35 PT 13.6 Sec. (12.2-14.9) 08/09/18 08:35 INR 1.07 (0.87-1.13) 08/09/18 08:35 APTT 24.9 Sec. (24.2-36.6) 08/09/18 08:35 364.66 ng/mlDDU (0-234) H 08/09/18 08:35 POC ABG pH 7.399 (7.35-7.45) 08/09/18 12:14 POC ABG pCO2 45.3 (35-45) H 08/09/18 12:14 POC ABG pO2 82 (80-105) 08/09/18 12:14 POC ABG HCO3 28.0 (22-26 mml/L) 08/09/18 12:14 POC ABG Total CO2 29 (23-27mmol/L) 08/09/18 12:14 POC ABG O2 Sat 96 08/09/18 12:14 POC ABG Base Excess 3 ((-2) - (+3)mmol/L) 08/09/18 12:14 32 % 08/09/18 12:14 Sodium 141 mmol/L (137-145) 08/09/18 08:35 Potassium 3.6 mmol/L (3.6-5.0) 08/09/18 08:35 Chloride 100.7 mmol/L (98-107) 08/09/18 08:35 Carbon Dioxide 30 mmol/L (22-30) 08/09/18 08:35 14 mmol/L 08/09/18 08:35 BUN 13 mg/dL (9-20) 08/09/18 08:35 1.3 mg/dL (0.8-1.5) 08/09/18 08:35 Estimated GFR 56 ml/min 08/09/18 08:35 10 % 08/09/18 08:35 Glucose 108 mg/dL (75-100) H 08/09/18 08:35 Calcium 7.5 mg/dL (8.4-10.2) L 08/09/18 08:35 Magnesium 2.10 mg/dL (1.7-2.3) 08/09/18 08:35 0.40 mg/dL (0.1-1.2) 08/09/18 08:35 0.40 mg/dL (0.1-1.2) 08/09/18 08:35 < 0.2 mg/dL (0-0.2) 08/09/18 08:35 0.2 mg/dL 08/09/18 08:35 AST 18 units/L (5-40) 08/09/18 08:35 AST 18 units/L (5-40) 08/09/18 08:35 ALT 17 units/L (7-56) 08/09/18 08:35 ALT 19 units/L (7-56) 08/09/18 08:35 55 units/L (35-129) 08/09/18 08:35 58 units/L (35-129) 08/09/18 08:35 NT-Pro-B Natriuret Pep 258.9 pg/mL (0-900) 08/09/18 08:35 6.5 g/dL (6.3-8.2) 08/09/18 08:35 6.7 g/dL (6.3-8.2) 08/09/18 08:35 3.7 g/dL (3.9-5) L 08/09/18 08:35 3.8 g/dL (3.9-5) L 08/09/18 08:35 1.2 % 08/09/18 08:35 1.4 % 08/09/18 08:35 TSH 0.653 mlU/mL (0.270-4.200) 08/09/18 08:35 Free T4 1.76 ng/dL (0.76-1.46) H 08/09/18 08:35 PTH Intact 25.41 pg/mL (15-65) 08/09/18 08:35 Assessment and Plan Assessment and plan: 62-year-old male who is an ongoing smoker with history of chronic back pain (Dr. Hurtado), DVT anticoagulated on Eliquis, COPD, HIV (undetectable viral load compliant with antiretroviral meds), hypertension, hyperlipidemia who was recently discharged from the hospital with complaints of chest pain returns today with complaint of chest tightness and pressure with associated shortness of breath. On further evaluation appears that the patient when he has exacerbation of his COPD complaints of chest discomfort also. In the ER has recommended for admission due to wheezing but during my evaluation the patient consistently was asking for pain medication again he did not his primary care physicians and specialists as recommended on discharge. He had a recent stress test that was negative, but actively short of breath on my exam. COPD EXACERBATION severe emphysema Atypical chest pain secondary to Pulmonary disease leading to costochondritis tobacco use disorder Secondary Hypercoagluopathy remote hx of IVDA HTN HLD HIV Hx DVT on Eliquis Dehydration ANGELIC Tobacco abuse Plan: Admit to observation with Tele Obtain cardiology and pulmonary consult Need to have case management assit with disposition. Patient at high risk for continued readmission Pain only due to copd exacerbation but patient continues to report generalized body pain. Continue anti-retroviral medication Monitor BP Monitor BUN/creatinine if no improvement will consider nephrology consult Counseled for smoking cessation, start nicotine patch Schedule DuoNeb nebs and Pulmicort, albuterol when necessary Mucinex DVT PPX on Eliquis and SCD's Advance Directives: Yes Plan of care discussed with patient/family: Yes
[2018-08-09] MEDS: PULMICORT IH SCH (20:02)
[2018-08-09] MEDS: ELIQUIS PO SCH (21:27)
[2018-08-09] MEDS: SODIUM CHLORIDE FLUSH SYRINGE 10 ML IV SCH (21:33)
[2018-08-09] MEDS ORDERED: FLUTICASONE PROPIONATE IH SCH (22:00)
[2018-08-10] MEDS: SOLU-Medrol IV SCH ×2 (02:02→12:22)
[2018-08-10 03:26] LABS: Amphetamine Screen,Urine PRESUMPTIVE NEGATIVE; Benzodiazepines Screen,Urine PRESUMPTIVE NEGATIVE; Cannabinoid Screen,Urine PRESUMPTIVE NEGATIVE; Methadone Screen,Urine PRESUMPTIVE NEGATIVE; Opiate Screen,Urine PRESUMPTIVE NEGATIVE
[2018-08-10 03:58] LABS: Cocaine Screen,Urine PRESUMPTIVE POSITIVE
[2018-08-10 04:12] LABS: Hematocrit 27.8 % (35.5-45.6); Hemoglobin 9.2 gm/dl (11.8-15.2); Mean Corpuscular HGB Conc 33 % (32-34); Mean Corpuscular Volume 84 fl (84-94); Platelet Count 318 K/mm3 (140-440); Red Cell Distribution Width 16.5 % (13.2-15.2)
[2018-08-10 04:36] LABS: Alanine Aminotransferase 17 units/L (7-56); Albumin 3.6 g/dL (3.9-5); BUN/Creatinine Ratio 13; Blood Urea Nitrogen 16 mg/dL (9-20); Calcium 7.3 mg/dL (8.4-10.2); Hemolysis Index 3
[2018-08-10 05:11] LABS: Basophils % (Manual) 0 % (0.0-1.8); Eosinophils % (Manual) 0 % (0.0-4.3); Monocytes % (Manual) 0 % (0.0-7.3); Total Cells Counted 100
[2018-08-10 05:13] LABS: Anisocytosis 1+; Hypochromasia 1+; Ovalocytes Few; Platelet Estimate Consistent w Auto; Target Cells Few
[2018-08-10] MEDS: PULMICORT IH SCH (08:51)
[2018-08-10] MEDS: BROVANA NEBU IH SCH (08:51)
[2018-08-10] MEDS: DUONEB *Not for PRN Use IH SCH (08:51)
[2018-08-10] MEDS ORDERED: TRIUMEQ PO SCH (10:00)
[2018-08-10] MEDS ORDERED: BABY ASPIRIN PO SCH (10:00)
[2018-08-10] MEDS ORDERED: HCTZ PO SCH (10:00)
[2018-08-10] MEDS ORDERED: LOVASTATIN 20 MG PO SCH (10:00)
[2018-08-10] MEDS ORDERED: ZIAGEN PO SCH (10:00)
[2018-08-10] MEDS ORDERED: TIVICAY PO SCH (10:00)
[2018-08-10] MEDS ORDERED: COZAAR PO SCH (10:00)
[2018-08-10] MEDS ORDERED: LOSARTAN HCTZ PO SCH (10:00)
[2018-08-10] MEDS ORDERED: EPIVIR PO SCH (10:00)
--- NOTE | 2018-08-10 10:41 | Consultation ---
History of Present Illness Consult date: 08/10/18 Requesting physician: TIMOTHY MCGOWAN Reason for consult: COPD History of present illness: 62 y/o male with known COPD, continued tobacco and drug abuse admitted with chest pain and COPD exacerbation. Patient continues to smoke cigarettes and states that the cigarettes must have been lined with cocaine as he does not sn ort it. Per patient he has an albuterol nebulizer at home and a rescue inhaler. He is on long acting medications but does not know the name of them. Remainder is negative. He does feel better with the treatments. Past History Past Medical History: COPD, DVT, HIV/AIDS, hypertension, other (substance abuse) Social history: smoking. denies: alcohol abuse, prescription drug abuse Family history: denies: no significant family history Medications and Allergies Allergies Allergy/AdvReac Type Severity Reaction Status Date / Time No Known Allergies Allergy Verified 01/22/13 22:23 Home Medications Medication Instructions Recorded Confirmed Last Taken Type traMADol [Ultram 50 MG tab] 50 mg PO Q6HR PRN #20 tablet 12/21/15 08/09/18 Unknown Rx Apixaban [Eliquis] 5 mg PO BID 08/03/18 08/09/18 Unknown History Losartan-Hctz 50-12.5 mg Tab 1 each PO DAILY 08/03/18 08/09/18 Unknown History Triumeq 600-50-300 mg Tablet 1 each DAILY 08/03/18 08/09/18 Unknown History clonazePAM 1 mg PO PRN PRN 08/03/18 08/09/18 1 Day Ago History ~08/03/18 Aspirin [Aspirin BABY CHEW TAB] 81 mg PO QDAY #30 tab.chew 08/05/18 08/09/18 Unknown Rx Fluticasone Propionate [Flovent 10.6 gm IH BID 30 Days aer.w.adap 08/05/18 Unknown Rx Hfa] Lovastatin 20 mg PO DAILY #30 08/05/18 08/09/18 Unknown Rx Nicotine [Habitrol] 14 mg TD QDAY #4 patch 08/05/18 08/09/18 Unknown Rx Prednisone [predniSONE 10 mg 10 mg PO QDAY #5 tab.ds.pk 08/05/18 08/09/18 Unknown Rx (6-Day Pack, 21 Tabs)] Tamsulosin [Flomax] 0.4 mg PO DAILY #30 capsule 08/05/18 08/09/18 Unknown Rx amLODIPine [Norvasc] 10 mg PO QDAY #30 tablet 08/05/18 08/09/18 Unknown Rx Active Meds: Active Medications Abacavir Sulfate (Ziagen) 300 mg PO DAILY [facility] Acetaminophen (Tylenol) 650 mg PO Q4H PRN PRN Reason: Pain MILD(1-3)/Fever >100.5/KOENIG Albuterol (Proventil) 2.5 mg IH Q4H PRN PRN Reason: Shortness Of Breath Albuterol/Ipratropium (Duoneb *Not For Prn Use*) 1 ampul IH TIDRT [facility] Last Admin: 08/10/18 08:51 Dose: 1 ampul Documented by: Amlodipine Besylate (Norvasc) 10 mg PO QDAY [facility] Last Admin: 08/09/18 18:02 Dose: 10 mg Documented by: Apixaban (Eliquis) 5 mg PO BID [facility]; Protocol Last Admin: 08/09/18 21:27 Dose: 5 mg Documented by: Arformoterol Tartrate (Brovana Nebu) 15 mcg IH Q12HRT [facility] Last Admin: 08/10/18 08:51 Dose: 15 mcg Documented by: Aspirin (Baby Aspirin) 81 mg PO QDAY [facility] Atorvastatin Calcium (Lipitor) 40 mg PO QHS [facility] Last Admin: 08/09/18 21:27 Dose: 40 mg Documented by: Budesonide (Pulmicort) 0.25 mg IH Q12HRT [facility] Last Admin: 08/10/18 08:51 Dose: 0.25 mg Documented by: Clonazepam (Klonopin) 1 mg PO BID PRN PRN Reason: anxiety Last Admin: 08/09/18 21:30 Dose: 1 mg Documented by: Hydrochlorothiazide (Hctz) 12.5 mg PO QDAY [facility] Lamivudine (Epivir) 300 mg PO DAILY [facility] Losartan Potassium (Cozaar) 50 mg PO QDAY [facility] Methylprednisolone Sodium Succinate (Solu-Medrol) 80 mg IV Q8H [facility] Last Admin: 08/10/18 02:02 Dose: 80 mg Documented by: Morphine Sulfate (Morphine) 2 mg IV Q6H PRN PRN Reason: Pain, Moderate (4-6) Nicotine (Habitrol) 14 mg TD QDAY [facility] Last Admin: 08/09/18 18:11 Dose: Not Given Documented by: Nitroglycerin (Nitrostat) 0.4 mg SL Q5M PRN PRN Reason: Chest Pain Ondansetron HCl (Zofran) 4 mg IV Q8H PRN PRN Reason: Nausea And Vomiting Sodium Chloride (Sodium Chloride Flush Syringe 10 Ml) 10 ml IV PRN PRN PRN Reason: LINE FLUSH Sodium Chloride (Sodium Chloride Flush Syringe 10 Ml) 10 ml IV BID [facility] Last Admin: 08/09/18 21:33 Dose: 10 ml Documented by: Sodium Chloride (Sodium Chloride Flush Syringe 10 Ml) 10 ml IV PRN PRN PRN Reason: LINE FLUSH Tamsulosin HCl (Flomax) 0.4 mg PO DAILY [facility] Last Admin: 08/09/18 18:01 Dose: 0.4 mg Documented by: Tramadol HCl (Ultram) 50 mg PO Q6H PRN PRN Reason: Pain (MILD to MODERATE) Last Admin: 08/09/18 18:02 Dose: 50 mg Documented by: Review of Systems All systems: negative Physical Examination Vital signs: Vital Signs Temp Pulse Resp BP Pulse Ox 98.2 F 85 16 122/90 96 08/09/18 07:58 08/09/18 07:58 08/09/18 07:58 08/09/18 07:58 08/09/18 07:58 General appearance: no acute distress, alert Eyes: non-icteric ENT: oropharynx moist, other (edentulous) Neck: supple Effort: normal Percussion: Bilateral: not dull Tactile fremitus: Bilateral: normal Cardiovascular: regular rate and rhythm Gastrointestinal: normoactive bowel sounds, soft, non-tender Extremities: no cyanosis, no edema, pink and warm, pulses normal normal mental status, non-focal exam mood appropriate, affect normal Results - Laboratory Findings CBC and BMP: 08/10/18 03:56 08/10/18 03:56 ABG POC ABG pH 7.399 (7.35-7.45) 08/09/18 12:14 POC ABG pCO2 45.3 (35-45) H 08/09/18 12:14 POC ABG pO2 82 (80-105) 08/09/18 12:14 POC ABG HCO3 28.0 (22-26 mml/L) 08/09/18 12:14 POC ABG Total CO2 29 (23-27mmol/L) 08/09/18 12:14 POC ABG O2 Sat 96 08/09/18 12:14 PT/INR, D-dimer PT 13.6 Sec. (12.2-14.9) 08/09/18 08:35 INR 1.07 (0.87-1.13) 08/09/18 08:35 364.66 ng/mlDDU (0-234) H 08/09/18 08:35 Abnormal lab findings: Abnormal Labs 08/09/18 08/09/18 08/09/18 08:35 08:35 08:35 RBC 3.33 L Hgb 9.3 L Hct 27.9 L RDW 16.6 H Person % (Auto) 9.7 H Lymph # 1.1 L Seg Neuts % (Manual) Lymphocytes % (Manual) Lymphocytes # (Manual) D-Dimer POC ABG pCO2 Glucose 108 H Calcium 7.5 L Albumin 3.7 L Free T4 1.76 H 08/09/18 08/09/18 08/09/18 08:35 08:35 12:14 RBC Hgb Hct RDW [place] % (Auto) Lymph # Seg Neuts % (Manual) Lymphocytes % (Manual) Lymphocytes # (Manual) D-Dimer 364.66 H POC ABG pCO2 45.3 H Glucose Calcium Albumin 3.8 L Free T4 08/10/18 08/10/18 03:56 03:56 RBC 3.30 L Hgb 9.2 L Hct 27.8 L RDW 16.5 H Person % (Auto) Lymph # Seg Neuts % (Manual) 99.0 H Lymphocytes % (Manual) 1.0 L Lymphocytes # (Manual) 0.1 L D-Dimer POC ABG pCO2 Glucose 157 H Calcium 7.3 L Albumin 3.6 L Free T4 - Diagnostic Findings CT scan - chest: image reviewed (centrilobular emphysema, otherwise no acute lung disease) Assessment and Plan 62 y/o male, smoker, admitted with exacerbation of COPD secondary to continued smoking and drub abuse (cocaine) 1. Stop smoking 2. Will place on BID pulmicort and brovana 3. Will schedule ipratroprium therapy 4. OOB to chair and ambulate as tolerated 5. Agree with steroids but would switch to PO 60 daily and taper from there as follows: 60x4 days, 40x4 days, 20x4 days, 10x4 days then stop
--- NOTE | 2018-08-10 11:21 | Progress Note ---
Assessment and Plan Assessment: Atypical chest pain - AMI r/o; possible costochondritis; s/p lexiscan MPI stress test 08/04/2018 which was negative COPD exacerbation Tobacco use Hypertension HIV H/o DVT Plan: Recommend in view of recent negative stress negative troponin atypical chest pain to treat patient with anti-inflammatories. Cont treatment of COPD. he will have an echocardiogram for right-sided heart pressures. The patient has been seen in conjunction with Dr. Gavino Jovel who agrees with the assessment and plan of care. Subjective Date of service: 08/10/18 Principal diagnosis: cp Interval history: pt resting in bed, reports resolution of chest pain, SOB improving. Objective Last Vital Signs Temp 98.2 F 08/10/18 07:56 Pulse 90 08/10/18 09:18 Resp 20 08/10/18 09:18 BP 131/83 08/10/18 07:56 Pulse Ox 95 08/10/18 08:55 - Physical Examination General: No Apparent Distress HEENT: Positive: PERRL, Mucus Membranes Moist Neck: Positive: neck supple, trachea midline Cardiac: Positive: Reg Rate and Rhythm, S1/S2 Lungs: Positive: Decreased Breath Sounds Neuro: Positive: Grossly Intact Abdomen: Positive: Soft, Active Bowel Sounds. Negative: Tender, Distended Skin: Positive: Clear Incision: Cardiac Cath Site Musculoskeletal: No Pain, Normal Range of Motion Extremities: Present: normal. Absent: edema - Labs and Meds Cardiac Enzymes 08/10/18 Range/Units 03:56 AST 13 (5-40) units/L CBC 08/10/18 Range/Units 03:56 WBC 6.7 (4.5-11.0) K/mm3 RBC 3.30 L (3.65-5.03) M/mm3 Hgb 9.2 L (11.8-15.2) gm/dl Hct 27.8 L (35.5-45.6) % Plt Count 318 (140-440) K/mm3 Comprehensive Metabolic Panel 08/10/18 Range/Units 03:56 Sodium 139 (137-145) mmol/L Potassium 3.8 (3.6-5.0) mmol/L Chloride 98.8 (98-107) mmol/L Carbon Dioxide 27 (22-30) mmol/L BUN 16 (9-20) mg/dL Creatinine 1.2 (0.8-1.5) mg/dL Glucose 157 H (75-100) mg/dL Calcium 7.3 L (8.4-10.2) mg/dL AST 13 (5-40) units/L ALT 17 (7-56) units/L Alkaline Phosphatase 55 (35-129) units/L Total Protein 6.4 (6.3-8.2) g/dL Albumin 3.6 L (3.9-5) g/dL - Imaging and Cardiology Stress echo: other (08/04/2018 normal myocardial perfusion scan no significant ischemia and normal LV function)
--- NOTE | 2018-08-10 11:31 | Discharge Summary ---
Providers - Providers Date of Admission: 08/09/18 11:44 Attending physician: TIMOTHY MCGOWAN MD 08/09/18 Consult to Cardiac Rehabilitation [CONS] Routine Reason For Exam: Phase I 08/09/18 10:01 Consult to Cardiology [CONS] Routine Consulting Provider: GODWIN CANALES Reason For Exam: chest pain 08/09/18 10:04 Consult to Physician [CONS] Routine Comment: Consulting Provider: LIVE REYNOSO Physician Instructions: Reason For Exam: copd exacerbation [facility] Reason for admission: copd exacerbation Condition: Stable Hospital course: 62-year-old male who is an ongoing smoker with history of chronic back pain (Dr. Hurtado), DVT anticoagulated on Eliquis, COPD, HIV (undetectable viral load compliant with antiretroviral meds), hypertension, hyperlipidemia who was recently discharged from the hospital with complaints of chest pain returns today with complaint of chest tightness and pressure with associated shortness of breath. On further evaluation appears that the patient when he has exacerbation of his COPD complaints of chest discomfort also. In the ER has recommended for admission due to wheezing but during my evaluation the patient consistently was asking for pain medication again he did not his primary care physicians and specialists as recommended on discharge. He had a recent stress test that was negative, but actively short of breath on my exam. Patient was seen by cardiology and pulmonary. Following extensive conversation patient verbalized understand of need to be complaint with medications. also follow up. Medications were renewed. COPD EXACERBATION Severe emphysema Atypical chest pain secondary to Pulmonary disease leading to costochondritis tobacco use disorder Secondary Hypercoagluopathy Remote hx of IVDA HTN HLD HIV Hx DVT on Eliquis Dehydration ANGELIC secondary to vasomotor nephropathy Tobacco abuse Disposition: TO HOME OR SELFCARE Time spent for discharge: 35 mins Core Measure Documentation - Palliative Care Palliative Care/ Comfort Measures: Not Applicable - Core Measures Any of the following diagnoses?: none Exam - Physical Exam Narrative exam: VITAL SIGNS: Reviewed. GENERAL: The patient appeared well nourished and normally developed, Vital signs as documented. HEAD: No signs of head trauma. EYES: Pupils are equal. Extraocular motions intact. EARS: Hearing grossly intact. MOUTH: Oropharynx is normal. NECK: No adenopathy, no JVD. CHEST: Chest with diminshed breath sounds bilaterally. No rales, or rhonchi. CARDIAC: Regular rate and rhythm. S1 and S2, without murmurs, gallops, or rubs. VASCULAR: No Edema. Peripheral pulses normal and equal in all extremities. ABDOMEN: Soft, non tender and non distended. No rebound or guarding, and no masses palpated. Bowel Sounds normal. MUSCULOSKELETAL: Good range of motion of all major joints. Extremities without clubbing, cyanosis or edema. NEUROLOGIC EXAM: Alert and oriented x 3 No focal sensory or strength deficits. Speech normal. Follows commands. PSYCHIATRIC: Mood normal. SKIN: No rash or lesions. - Constitutional Vitals: Temp Pulse Resp BP Pulse Ox 98.2 F 90 20 131/83 95 08/10/18 07:56 08/10/18 09:18 08/10/18 09:18 08/10/18 07:56 08/10/18 08:55 Plan Activity: advance as tolerated, fall precautions Diet: low fat Special Instructions: smoking cessation [facility]-5 Days MARTHA CRAWFORD MD [Staff Physician] - 7 Days FRANCIS WAGNER MD [Staff Physician] - 7 Days Prescriptions: Ipratropium/Albuterol Sulfate [DUONEB *Not for PRN Use*] 1 ampul IH Q6HR #120 ampul.neb Fluticasone Propionate [Flovent Hfa] 10.6 gm IH BID 30 Days aer.w.adap Prednisone [predniSONE 10 mg (6-Day Pack, 21 Tabs)] 10 mg PO QDAY #5 tab.ds.pk Other Discharge Orders: Nebulizer (Amb) Location: None Selected
[2018-08-10] MEDS ORDERED: ATROVENT IH SCH (12:00)
[2018-08-10] MEDS: NORVASC PO SCH (12:21)
[2018-08-10] MEDS: ELIQUIS PO SCH (12:21)
[2018-08-10] MEDS: HABITROL TD SCH (12:22)
[2018-08-10] MEDS: FLOMAX PO SCH (12:22)
[2018-08-10] MEDS: SODIUM CHLORIDE FLUSH SYRINGE 10 ML IV SCH (12:23)
[2018-08-10 13:30] VITALS: BP 117/72
== END 2018-08-10 14:30 | disposition home or self-care (01) | DRG 917 ==
LOC: ED 07:56 → 4A 11:44
PROVIDERS: ADMIT Internal Medicine; ATTEND Internal Medicine
PROC: 4A033R1 Measurement of Arterial Saturation, Peripheral, Percutaneous Approach (ICD-10-PCS; principal; 2018-08-09)
DX: T40.5X1A Poisoning by cocaine, accidental (unintentional), initial encounter (principal); N17.0 Acute kidney failure with tubular necrosis; D68.69 Other thrombophilia; B20 Human immunodeficiency virus [HIV] disease; M94.0 Chondrocostal junction syndrome [Tietze]; F17.210 Nicotine dependence, cigarettes, uncomplicated; I10 Essential (primary) hypertension; E78.5 Hyperlipidemia, unspecified; G89.29 Other chronic pain; M54.9 Dorsalgia, unspecified; E83.51 Hypocalcemia; D64.9 Anemia, unspecified; J43.9 Emphysema, unspecified; Y92.89 Other specified places as the place of occurrence of the external cause; Z79.01 Long term (current) use of anticoagulants; Z79.82 Long term (current) use of aspirin; Z86.718 Personal history of other venous thrombosis and embolism
CPT/HCPCS: 36415; 71045; 71275; 80053; 80076; 80307; 82803; 83735; 83880; 83970; 84439; 84443; 85007; 85025; 85379; 85610; 85730; 87116; 93005; 93010; 94640; 99406; G0378; A9270-GY; J2930; Q9967

== ENCOUNTER 2018-10-30 01:15 | Inpatient (IN) | payer OTHER ==
[2018-10-30] MEDS ORDERED: PROVENTIL IH ONE (02:23)
[2018-10-30] MEDS ORDERED: ATROVENT IH ONE (02:23)
--- NOTE | 2018-10-30 02:30 | Emergency Department Report ---
HPI - General Chief Complaint: Dyspnea/Respdistress Time Seen by Provider: 10/30/18 02:12 - HPI HPI: Room 19 The patient is a 62-year-old male presenting with a chief complaint shortness of breath. The patient reportedly has shortness of breath earlier today secondary to COPD. EMS was called and administered nebulizer and the patient improved. The patient then took his blood pressure medicationfor shortness of breath returned in addition to intermittent sharp substernal chest pain. Patient states shortness of breath worsened EMS was called second time and administered in addition to Solu-Medrol and magnesium sulfate. Patient presents to the ED with continued increased work of breathing. Patient currently is chest pain score 7/10. Patient denies cough or fever. The patient missed to occasional cocaine use and states he last used approximately 4 days ago. The patient states he's never had a cardiac catheterization Location: [See above] Duration: [See above] Quality: [See above] Severity: [See above] Timing: [See above] Context: [See above] Modifying factors: [See above] Associated signs and symptoms: [see above] ED Past Medical Hx - Past Medical History Previous Medical History?: Yes Hx Hypertension: Yes Hx Asthma: Yes Hx COPD: Yes Hx HIV: Yes Additional medical history: Elevated Cholesterol & Chronic back pain. - Surgical History Past Surgical History?: No - Family History Family history: no significant - Social History Smoking Status: Current Some Day Smoker (occasional) Substance Use Type: Cocaine (last use reported 4 days ago) - Medications Home Medications: Home Medications Medication Instructions Recorded Confirmed Last Taken Type traMADol [Ultram 50 MG tab] 50 mg PO Q6HR PRN #20 tablet 12/21/15 08/09/18 Unknown Rx Apixaban [Eliquis] 5 mg PO BID 08/03/18 08/09/18 Unknown History Losartan-Hctz 50-12.5 mg Tab 1 each PO DAILY 08/03/18 08/09/18 Unknown History Triumeq 600-50-300 mg Tablet 1 each DAILY 08/03/18 08/09/18 Unknown History clonazePAM 1 mg PO PRN PRN 08/03/18 08/09/18 1 Day Ago History ~08/03/18 Aspirin [Aspirin BABY CHEW TAB] 81 mg PO QDAY #30 tab.chew 08/05/18 08/09/18 Unknown Rx Lovastatin 20 mg PO DAILY #30 06/12/19 06/16/19 Unknown Rx Nicotine [Habitrol] 14 mg TD QDAY #4 patch 08/05/18 08/09/18 Unknown Rx Tamsulosin [Flomax] 0.4 mg PO DAILY #30 capsule 08/05/18 08/09/18 Unknown Rx amLODIPine [Norvasc] 10 mg PO QDAY #30 tablet 08/05/18 08/09/18 Unknown Rx Fluticasone Propionate [Flovent 10.6 gm IH BID 30 Days aer.w.adap 08/10/18 Unknown Rx Hfa] Ipratropium/Albuterol Sulfate 1 ampul IH Q6HR #120 ampul.neb 08/10/18 Unknown Rx [DUONEB *Not for PRN Use*] Prednisone [predniSONE 10 mg 10 mg PO QDAY #5 tab.ds.pk 08/10/18 Unknown Rx (6-Day Pack, 21 Tabs)] ED Review of Systems ROS: Stated complaint: RESP DISTRESS Other details as noted in HPI Constitutional: denies: fever Eyes: denies: eye pain ENT: denies: throat pain Respiratory: shortness of breath. denies: cough Cardiovascular: chest pain Endocrine: no symptoms reported Gastrointestinal: denies: abdominal pain Genitourinary: denies: dysuria Musculoskeletal: denies: back pain Neurological: denies: headache Physical Exam - Physical Exam Vital Signs: Vital Signs 10/30/18 10/30/18 10/30/18 01:25 01:30 01:45 Temperature 98.3 F Pulse Rate Respiratory 29 H Rate Blood Pressure O2 Sat by Pulse 95 93 82 L Oximetry 10/30/18 01:46 Temperature Pulse Rate 76 Respiratory 25 H Rate Blood Pressure 160/101 O2 Sat by Pulse 97 Oximetry Physical Exam: GENERAL: The patient is well-developed well-nourished female lying on stretcher exhibiting slightly increased work of breathing. [] HEENT: Normocephalic. Atraumatic. Extraocular motions are intact. Patient has moist mucous membranes. NECK: Supple. Trachea midline CHEST/LUNGS: Diminished breath sounds bilaterally. There is slightly increased work of breathing HEART/CARDIOVASCULAR: Regular. There is no tachycardia. There is no gallop rub or murmur. ABDOMEN: Abdomen is soft, nontender. Patient has normal bowel sounds. There is no abdominal distention. SKIN: There is no rash. There is no diaphoresis. NEURO: The patient is awake, alert, and oriented. The patient is cooperative. The patient has normal speech MUSCULOSKELETAL: There is no evidence of acute injury. ED Course Vital Signs 10/30/18 10/30/18 10/30/18 01:25 01:30 01:45 Temperature 98.3 F Pulse Rate Respiratory 29 H Rate Blood Pressure O2 Sat by Pulse 95 93 82 L Oximetry 10/30/18 01:46 Temperature Pulse Rate 76 Respiratory 25 H Rate Blood Pressure 160/101 O2 Sat by Pulse 97 Oximetry ED Medical Decision Making - Lab Data Result diagrams: 10/30/18 02:47 10/30/18 02:47 Laboratory Tests 10/30/18 10/30/18 10/30/18 02:47 02:47 02:47 WBC 6.7 RBC 4.27 Hgb 9.3 L Hct 30.0 L MCV 70 L MCH 22 L MCHC 31 L RDW 20.5 H Plt Count 340 Lymph % (Auto) 10.1 L [place] % (Auto) 3.8 Eos % (Auto) 1.5 Baso % (Auto) 0.6 Lymph # 0.7 L [place] # 0.3 Eos # 0.1 Baso # 0.0 Seg Neutrophils % 84.0 H Seg Neutrophils # 5.6 PT 12.8 INR 0.99 Sodium 142 Potassium 3.5 L Chloride 98.0 Carbon Dioxide 29 Anion Gap 19 BUN 16 Creatinine 1.4 Estimated GFR 51 BUN/Creatinine Ratio 11 Glucose 169 H Calcium 7.6 L Total Bilirubin 0.20 AST 21 ALT 14 Alkaline Phosphatase 59 Lactate Dehydrogenase Total Creatine Kinase 466 H CK-MB (CK-2) 6.5 H CK-MB (CK-2) Rel Index 1.3 Troponin T < 0.010 NT-Pro-B Natriuret Pep 237.8 Total Protein 8.0 Albumin 3.9 Albumin/Globulin Ratio 1.0 10/30/18 02:47 WBC RBC Hgb Hct MCV MCH MCHC RDW Plt Count Lymph % (Auto) [place] % (Auto) Eos % (Auto) Baso % (Auto) Lymph # [place] # Eos # Baso # Seg Neutrophils % Seg Neutrophils # PT INR Sodium Potassium Chloride Carbon Dioxide Anion Gap BUN Creatinine Estimated GFR BUN/Creatinine Ratio Glucose Calcium Total Bilirubin AST ALT Alkaline Phosphatase Lactate Dehydrogenase 272 H Total Creatine Kinase CK-MB (CK-2) CK-MB (CK-2) Rel Index Troponin T NT-Pro-B Natriuret Pep Total Protein Albumin Albumin/Globulin Ratio - EKG Data -: EKG Interpreted by Me EKG shows normal: sinus rhythm Rate: bradycardia (59 bpm) - EKG Data When compared to previous EKG there are: previous EKG unavailable Interpretation: other (no ischemic changes seen) - Radiology Data Radiology results: report reviewed (chest x-ray), image reviewed (chest x-ray) interpreted by me: Chest x-ray-no focal infiltrates, no pneumothorax [facility] [address] [place] [address] XRay Report Signed Patient: NAVARRO YAN MR #: [id number] : 1955 Acct:[id number] Age/Sex: 62 / M ADM Date: 10/30/18 Loc: ED Attending Dr: Ordering Physician: TUSHAR TRUONG MD Date of Service: 10/30/18 Procedure(s): XR chest 1V ap Accession Number(s): [id number] cc: TUSHAR TRUONG MD Fluoro Time In Minutes: CHEST 1 VIEW 10/30/2018 2:26 AM INDICATION / CLINICAL INFORMATION: shortness of breath. COMPARISON: Chest x-ray 08/09/2018 FINDINGS: SUPPORT DEVICES: None. HEART / MEDIASTINUM: No significant abnormality. LUNGS / PLEURA: No significant pulmonary or pleural abnormality. No pneumothorax. ADDITIONAL FINDINGS: No significant additional findings. IMPRESSION: 1. No acute findings. Signer Name: Narendra Torres MD Signed: 10/30/2018 2:49 AM Workstation Name: [id number] Transcribed By: TL Dictated By: Narendra Torres MD Electronically Authenticated By: Narendra Torres MD Signed Date/Time: 10/30/18248 DD/ 8 TD/TT: - Differential Diagnosis CPD exacerbation, pneumonia, PJP, ACS, pericarditis, GERD Critical care attestation.: If time is entered above; I have spent that time in minutes in the direct care of this critically ill patient, excluding procedure time. ED Disposition Clinical Impression: COPD exacerbation, Chest pain Disposition: OP ADMIT IP TO THIS HOSP Is pt being admited?: Yes Does the pt Need Aspirin: Yes Condition: Fair Instructions: Chest Pain (ED), Chronic Obstructive Pulmonary Disease (ED) Referrals: PRIMARY CARE,MD [Primary Care Provider] - 3-5 Days Time of Disposition: 03:50 (hospitalist paged (Dr. Ora Yang))
--- NOTE | 2018-10-30 02:54 | XRay Report ---
CHEST 1 VIEW 10/30/2018 2:26 AM INDICATION / CLINICAL INFORMATION: shortness of breath. COMPARISON: Chest x-ray 08/09/2018 FINDINGS: SUPPORT DEVICES: None. HEART / MEDIASTINUM: No significant abnormality. LUNGS / PLEURA: No significant pulmonary or pleural abnormality. No pneumothorax. ADDITIONAL FINDINGS: No significant additional findings. IMPRESSION: 1. No acute findings. Signer Name: Narendra Torres MD Signed: 10/30/2018 2:49 AM Workstation Name: [id number]
[2018-10-30 03:22] LABS: INR 0.99 (0.87-1.13)
[2018-10-30 03:23] LABS: Basophils % (Auto) 0.6 % (0.0-1.8); Creatine Kinase MB 6.5 ng/mL (0.0-4.0); Eosinophils # (Auto) 0.1 K/mm3 (0.0-0.4); Eosinophils % (Auto) 1.5 % (0.0-4.3); Hemoglobin 9.3 gm/dl (11.8-15.2); Lymphocytes # (Auto) 0.7 K/mm3 (1.2-5.4); Lymphocytes % (Auto) 10.1 % (13.4-35.0); Mean Corpuscular HGB Conc 31 % (32-34); Mean Corpuscular Volume 70 fl (84-94); Monocytes # (Auto) 0.3 K/mm3 (0.0-0.8); Monocytes % (Auto) 3.8 % (0.0-7.3); Platelet Count 340 K/mm3 (140-440); Red Blood Count 4.27 M/mm3 (3.65-5.03)
[2018-10-30 03:24] LABS: Alanine Aminotransferase 14 units/L (7-56); Albumin 3.9 g/dL (3.9-5); BUN/Creatinine Ratio 11; Blood Urea Nitrogen 16 mg/dL (9-20); Calcium 7.6 mg/dL (8.4-10.2); Hemolysis Index 1
[2018-10-30 03:37] LABS: Red Cell Distribution Width 20.5 % (13.2-15.2)
[2018-10-30] MEDS ORDERED: ASPIRIN PO ONE (03:51)
[2018-10-30] MEDS ORDERED: MORPHINE IV PRN (05:12)
[2018-10-30] MEDS ORDERED: ZOFRAN IV PRN (05:12)
[2018-10-30] MEDS ORDERED: SODIUM CHLORIDE FLUSH SYRINGE 10 ML IV PRN (05:12)
--- NOTE | 2018-10-30 05:23 | History and Physical Report ---
<CARI CARTAGENA - Last Filed: 10/30/18 06:21> History of Present Illness Date of examination: 10/30/18 Date of admission: T Chief complaint: chest pain, SOB History of present illness: Patient is a 62-year-old male with PMHx of COPD, HIV infection, HDL who was brought to the ER for c/o SOBx 2 days. Pt states that she has a h/o COPD, he use her negulizer at home without improvement in her symptoms, he was giving nebulizer by EMS with improvement of his symptoms. Pt states that the SOB returned, associated with sharp substernal chest pain, EMS was called again, he received additional nebulizer treatment and Solumedrol and was taking to the ER for further evaluation. In the ER, pt was put in a bipap due to unresolved dyspnea, he admits to occasional cocaine use, denies prior heart disease. Patient denies cough, chest congestion, denies ill-contact, denies any fever, denies chills. Pt was seen in the ER and admitted fof further evaluation and treatment. Past History Past Medical History: COPD, hypertension, hyperlipidemia, other (HIV infection) Past Surgical History: No surgical history Social history: other (cocaine use disorder) Family history: no significant family history Medications and Allergies Allergies Allergy/AdvReac Type Severity Reaction Status Date / Time No Known Allergies Allergy Verified 01/22/13 22:23 Home Medications Medication Instructions Recorded Confirmed Last Taken Type traMADol [Ultram 50 MG tab] 50 mg PO Q6HR PRN #20 tablet 12/21/15 08/09/18 Unknown Rx Apixaban [Eliquis] 5 mg PO BID 08/03/18 08/09/18 Unknown History Losartan-Hctz 50-12.5 mg Tab 1 each PO DAILY 08/03/18 08/09/18 Unknown History Triumeq 600-50-300 mg Tablet 1 each DAILY 08/03/18 08/09/18 Unknown History clonazePAM 1 mg PO PRN PRN 08/03/18 08/09/18 1 Day Ago History ~08/03/18 Aspirin [Aspirin BABY CHEW TAB] 81 mg PO QDAY #30 tab.chew 08/05/18 08/09/18 Unknown Rx Lovastatin 20 mg PO DAILY #30 08/05/18 08/09/18 Unknown Rx Nicotine [Habitrol] 14 mg TD QDAY #4 patch 08/05/18 08/09/18 Unknown Rx Tamsulosin [Flomax] 0.4 mg PO DAILY #30 capsule 08/05/18 08/09/18 Unknown Rx amLODIPine [Norvasc] 10 mg PO QDAY #30 tablet 08/05/18 08/09/18 Unknown Rx Fluticasone Propionate [Flovent 10.6 gm IH BID 30 Days aer.w.adap 08/10/18 Unknown Rx Hfa] Ipratropium/Albuterol Sulfate 1 ampul IH Q6HR #120 ampul.neb 08/10/18 Unknown Rx [DUONEB *Not for PRN Use*] Prednisone [predniSONE 10 mg 10 mg PO QDAY #5 tab.ds.pk 08/10/18 Unknown Rx (6-Day Pack, 21 Tabs)] Active Meds: Active Medications Acetaminophen (Tylenol) 650 mg PO Q4H PRN PRN Reason: Pain MILD(1-3)/Fever >100.5/KOENIG Famotidine (Pepcid) 20 mg IV BID NADIA Morphine Sulfate (Morphine) 2 mg IV Q4H PRN PRN Reason: Pain, Moderate (4-6) Ondansetron HCl (Zofran) 4 mg IV Q8H PRN PRN Reason: Nausea And Vomiting Sodium Chloride (Sodium Chloride Flush Syringe 10 Ml) 10 ml IV BID NADIA Sodium Chloride (Sodium Chloride Flush Syringe 10 Ml) 10 ml IV PRN PRN PRN Reason: LINE FLUSH Review of Systems Cardiovascular: chest pain, shortness of breath Respiratory: shortness of breath Exam - Constitutional Vitals: Temp Pulse Resp BP Pulse Ox 98.3 F 64 20 113/79 100 10/30/18 01:45 10/30/18 04:00 10/30/18 04:00 10/30/18 04:00 10/30/18 04:00 General appearance: Present: mild distress - EENT Eyes: Present: EOM intact ENT: hearing intact - Neck Neck: Present: normal ROM - Respiratory Respiratory effort: normal Respiratory: bilateral: diminished - Cardiovascular Rhythm: regular Heart Sounds: Present: S1 & S2 - Extremities Extremities: no ischemia, No edema, normal color, Full ROM Peripheral Pulses: within normal limits - Abdominal General gastrointestinal: Present: deferred Male genitourinary: Present: deferred - Rectal Rectal Exam: deferred - Integumentary Integumentary: Present: warm, dry - Musculoskeletal Musculoskeletal: strength equal bilaterally - Psychiatric Psychiatric: appropriate mood/affect - Neurologic Neurologic: moves all extremities Results - Labs CBC & Chem 7: 10/30/18 02:47 10/30/18 02:47 Labs: Laboratory Last Values WBC 6.7 K/mm3 (4.5-11.0) 10/30/18 02:47 RBC 4.27 M/mm3 (3.65-5.03) 10/30/18 02:47 Hgb 9.3 gm/dl (11.8-15.2) L 10/30/18 02:47 Hct 30.0 % (35.5-45.6) L 10/30/18 02:47 MCV 70 fl (84-94) L 10/30/18 02:47 MCH 22 pg (28-32) L 10/30/18 02:47 MCHC 31 % (32-34) L 10/30/18 02:47 RDW 20.5 % (13.2-15.2) H 10/30/18 02:47 Plt Count 340 K/mm3 (140-440) 10/30/18 02:47 Lymph % (Auto) 10.1 % (13.4-35.0) L 10/30/18 02:47 [place] % (Auto) 3.8 % (0.0-7.3) 10/30/18 02:47 Eos % (Auto) 1.5 % (0.0-4.3) 10/30/18 02:47 Baso % (Auto) 0.6 % (0.0-1.8) 10/30/18 02:47 Lymph # 0.7 K/mm3 (1.2-5.4) L 10/30/18 02:47 [place] # 0.3 K/mm3 (0.0-0.8) 10/30/18 02:47 Eos # 0.1 K/mm3 (0.0-0.4) 10/30/18 02:47 Baso # 0.0 K/mm3 (0.0-0.1) 10/30/18 02:47 Seg Neutrophils % 84.0 % (40.0-70.0) H 10/30/18 02:47 Seg Neutrophils # 5.6 K/mm3 (1.8-7.7) 10/30/18 02:47 PT 12.8 Sec. (12.2-14.9) 10/30/18 02:47 INR 0.99 (0.87-1.13) 10/30/18 02:47 Sodium 142 mmol/L (137-145) 10/30/18 02:47 Potassium 3.5 mmol/L (3.6-5.0) L 10/30/18 02:47 Chloride 98.0 mmol/L (98-107) 10/30/18 02:47 Carbon Dioxide 29 mmol/L (22-30) 10/30/18 02:47 19 mmol/L 10/30/18 02:47 BUN 16 mg/dL (9-20) 10/30/18 02:47 1.4 mg/dL (0.8-1.5) 10/30/18 02:47 Estimated GFR 51 ml/min 10/30/18 02:47 11 % 10/30/18 02:47 Glucose 169 mg/dL (75-100) H 10/30/18 02:47 Calcium 7.6 mg/dL (8.4-10.2) L 10/30/18 02:47 0.20 mg/dL (0.1-1.2) 10/30/18 02:47 AST 21 units/L (5-40) 10/30/18 02:47 ALT 14 units/L (7-56) 10/30/18 02:47 59 units/L (35-129) 10/30/18 02:47 272 units/L (91-180) H 10/30/18 02:47 466 units/L (55-170) H 10/30/18 02:47 CK-MB (CK-2) 6.5 ng/mL (0.0-4.0) H 10/30/18 02:47 CK-MB (CK-2) Rel Index 1.3 (0-4) 10/30/18 02:47 < 0.010 ng/mL (0.00-0.029) 10/30/18 02:47 NT-Pro-B Natriuret Pep 237.8 pg/mL (0-900) 10/30/18 02:47 8.0 g/dL (6.3-8.2) 10/30/18 02:47 3.9 g/dL (3.9-5) 10/30/18 02:47 1.0 % 10/30/18 02:47 Assessment and Plan Assessment and plan: Chest pain (Multifactorial, likely due to cocaine use) COPD exacerbation Acute dyspnea (due to COPD) HTN HDL H/o HIV infection Anemia Multifactirial) Admit to medtele Consult cardiology Continue CE q6hr x 2 more Monitor vital signs Continue home meds Nebulizer treatment q4hr PRN Sulumedrol q6hr RT to monitor bipap Plan of care d/w pt, voiced understading Advance Directives: Yes VTE prophylaxis?: Mechanical Plan of care discussed with patient/family: Yes <GISSELLE ROSSI - Last Filed: 10/30/18 06:32> History of Present Illness Date of admission: 10/30/18 05:12 Medications and Allergies Active Meds: Active Medications Acetaminophen (Tylenol) 650 mg PO Q4H PRN PRN Reason: Pain MILD(1-3)/Fever >100.5/KOENIG Albuterol/Ipratropium (Duoneb *Not For Prn Use*) 1 ampul IH Q6HRT NADIA Budesonide (Pulmicort) 0.5 mg IH Q12HRT NADIA Famotidine (Pepcid) 20 mg IV BID NADIA Methylprednisolone Sodium Succinate (Solu-Medrol) 80 mg IV Q6HR NADIA Montelukast Sodium (Singulair) 10 mg PO QHS NADIA Ondansetron HCl (Zofran) 4 mg IV Q8H PRN PRN Reason: Nausea And Vomiting Sodium Chloride (Sodium Chloride Flush Syringe 10 Ml) 10 ml IV BID NADIA Sodium Chloride (Sodium Chloride Flush Syringe 10 Ml) 10 ml IV PRN PRN PRN Reason: LINE FLUSH Exam - Constitutional Vitals: Temp Pulse Resp BP Pulse Ox 98.3 F 56 L 19 124/78 100 10/30/18 01:45 10/30/18 06:00 10/30/18 06:00 10/30/18 06:00 10/30/18 06:00 Results - Labs CBC & Chem 7: 10/30/18 02:47 10/30/18 02:47 Labs: Laboratory Last Values WBC 6.7 K/mm3 (4.5-11.0) 10/30/18 02:47 RBC 4.27 M/mm3 (3.65-5.03) 10/30/18 02:47 Hgb 9.3 gm/dl (11.8-15.2) L 10/30/18 02:47 Hct 30.0 % (35.5-45.6) L 10/30/18 02:47 MCV 70 fl (84-94) L 10/30/18 02:47 MCH 22 pg (28-32) L 10/30/18 02:47 MCHC 31 % (32-34) L 10/30/18 02:47 RDW 20.5 % (13.2-15.2) H 10/30/18 02:47 Plt Count 340 K/mm3 (140-440) 10/30/18 02:47 Lymph % (Auto) 10.1 % (13.4-35.0) L 10/30/18 02:47 [place] % (Auto) 3.8 % (0.0-7.3) 10/30/18 02:47 Eos % (Auto) 1.5 % (0.0-4.3) 10/30/18 02:47 Baso % (Auto) 0.6 % (0.0-1.8) 10/30/18 02:47 Lymph # 0.7 K/mm3 (1.2-5.4) L 10/30/18 02:47 [place] # 0.3 K/mm3 (0.0-0.8) 10/30/18 02:47 Eos # 0.1 K/mm3 (0.0-0.4) 10/30/18 02:47 Baso # 0.0 K/mm3 (0.0-0.1) 10/30/18 02:47 Seg Neutrophils % 84.0 % (40.0-70.0) H 10/30/18 02:47 Seg Neutrophils # 5.6 K/mm3 (1.8-7.7) 10/30/18 02:47 PT 12.8 Sec. (12.2-14.9) 10/30/18 02:47 INR 0.99 (0.87-1.13) 10/30/18 02:47 Sodium 142 mmol/L (137-145) 10/30/18 02:47 Potassium 3.5 mmol/L (3.6-5.0) L 10/30/18 02:47 Chloride 98.0 mmol/L (98-107) 10/30/18 02:47 Carbon Dioxide 29 mmol/L (22-30) 10/30/18 02:47 19 mmol/L 10/30/18 02:47 BUN 16 mg/dL (9-20) 10/30/18 02:47 1.4 mg/dL (0.8-1.5) 10/30/18 02:47 Estimated GFR 51 ml/min 10/30/18 02:47 11 % 10/30/18 02:47 Glucose 169 mg/dL (75-100) H 10/30/18 02:47 Calcium 7.6 mg/dL (8.4-10.2) L 10/30/18 02:47 0.20 mg/dL (0.1-1.2) 10/30/18 02:47 AST 21 units/L (5-40) 10/30/18 02:47 ALT 14 units/L (7-56) 10/30/18 02:47 59 units/L (35-129) 10/30/18 02:47 272 units/L (91-180) H 10/30/18 02:47 466 units/L (55-170) H 10/30/18 02:47 CK-MB (CK-2) 6.5 ng/mL (0.0-4.0) H 10/30/18 02:47 CK-MB (CK-2) Rel Index 1.3 (0-4) 10/30/18 02:47 < 0.010 ng/mL (0.00-0.029) 10/30/18 02:47 NT-Pro-B Natriuret Pep 237.8 pg/mL (0-900) 10/30/18 02:47 8.0 g/dL (6.3-8.2) 10/30/18 02:47 3.9 g/dL (3.9-5) 10/30/18 02:47 1.0 % 10/30/18 02:47 Assessment and Plan Assessment and plan: 62-year-old man with a history of HIV, COPD, hypertension, hyperlipidemia comes emergency room with complaints of shortness of breath, wheezing to started last night and tightness in his chest that radiated stress test a few months ago, agree with steroids, breathing treatment, BiPAP, check cardiac enzymes
[2018-10-30] MEDS ORDERED: SOLU-Medrol IV SCH ×2 (06:00→06:31)
[2018-10-30] MEDS: DUONEB *Not for PRN Use IH SCH ×5 (08:12→19:30)
[2018-10-30] MEDS: PULMICORT IH SCH ×2 (08:12→19:30)
[2018-10-30] MEDS: SODIUM CHLORIDE FLUSH SYRINGE 10 ML IV SCH ×2 (10:29→22:07)
[2018-10-30] MEDS: PEPCID IV SCH ×2 (10:29→22:07)
[2018-10-30 14:25] LABS: Creatine Kinase MB 7.5 ng/mL (0.0-4.0)
--- NOTE | 2018-10-30 15:06 | Event Note ---
Date: 10/30/18 Pt seen and examined. This is a follow up of admission earlier this am. We will continue plan as outlined in the h and p
[2018-10-30] MEDS: SOLU-Medrol IV SCH ×2 (16:26→22:06)
[2018-10-30] MEDS: TYLENOL PO PRN ×2 (16:33→22:10)
[2018-10-30] MEDS: SINGULAIR PO SCH (22:06)
[2018-10-31] MEDS: AMBIEN PO PRN ×2 (01:09→21:39)
[2018-10-31] MEDS: DUONEB *Not for PRN Use IH SCH ×4 (03:01→20:01)
[2018-10-31] MEDS: SOLU-Medrol IV SCH ×3 (06:00→21:38)
[2018-10-31] MEDS: PULMICORT IH SCH ×2 (08:00→20:01)
--- NOTE | 2018-10-31 09:33 | Progress Note ---
Subjective Date of service: 10/31/18 Interval history: Impression Atypical sharp chest pain Cigarette smoker Cocaine Use HTN Hyperlipidemia No prior CAD of CHF. COPD HIV. Plan Trop negative x 2 ECG normal SB otherwise wnl. CXR normal heart size, no CHF. CK elevated suspect mild rhabdo Monitor 24 hrs, outpt stress Objective Vital Signs Temp Pulse Pulse Resp Resp BP Pulse Ox 10/31/18 08:40 98.8 F 95 H 16 149/92 96 10/31/18 03:59 98.2 F 84 16 151/81 94 10/31/18 03:02 85 18 10/31/18 03:00 86 10/31/18 00:46 98.0 F 79 18 129/67 95 10/30/18 23:00 20 96 10/30/18 19:43 98.1 F 85 20 151/87 95 10/30/18 19:33 95 10/30/18 19:30 87 18 10/30/18 19:00 81 10/30/18 17:33 20 10/30/18 17:02 80 20 96 10/30/18 16:53 97.5 F L 80 20 146/91 96 10/30/18 16:33 20 10/30/18 14:46 122.0 F H 78 24 124/63 94 10/30/18 12:20 97 10/30/18 12:09 95 H 22 10/30/18 11:57 22 94 10/30/18 11:55 80 - Physical Examination General: No Apparent Distress Neck: Negative: JVD/HJR Cardiac: Positive: Reg Rate and Rhythm, S1/S2 Lungs: Positive: Normal Exam Neuro: Positive: Grossly Intact Abdomen: Positive: Soft Extremities: Present: normal - Labs and Meds Cardiac Enzymes 10/30/18 Range/Units 13:04 CK-MB (CK-2) 7.5 H (0.0-4.0) ng/mL
[2018-10-31] MEDS: SODIUM CHLORIDE FLUSH SYRINGE 10 ML IV SCH ×2 (10:07→21:39)
[2018-10-31] MEDS: PEPCID IV SCH ×2 (10:07→21:38)
[2018-10-31] MEDS: TYLENOL PO PRN (14:09)
--- NOTE | 2018-10-31 15:45 | Progress Note ---
Assessment and Plan Assessment and plan: Chest pain. Trop negative x 2, ECG normal. CXR normal heart size, no CHF. Cardiology consulted and recommends OP stress Rhabdomyolysis. CK elevated suspect mild rhabdo--IVF hydration COPD exacerbation. Cont. Bronchodilators and nebs, steroids HTN. Cont. BP meds HDL. Cont statin H/o HIV infection Anemia. H/H stable History Interval history: No new issues overnight Hospitalist Physical - Constitutional Vitals: Temp Pulse Resp BP Pulse Ox 98.8 F 81 20 149/92 98 10/31/18 08:40 10/31/18 13:00 10/31/18 13:00 10/31/18 08:40 10/31/18 10:00 General appearance: Present: no acute distress - EENT Eyes: Present: PERRL, EOM intact ENT: hearing intact, clear oral mucosa, dentition normal - Neck Neck: Present: supple, normal ROM - Respiratory Respiratory effort: normal Respiratory: bilateral: CTA - Cardiovascular Rhythm: regular Heart Sounds: Present: S1 & S2. Absent: gallop, rub - Extremities Extremities: no ischemia, No edema, Full ROM - Abdominal General gastrointestinal: soft, non-tender, non-distended, normal bowel sounds - Integumentary Integumentary: Present: clear, warm, dry - Neurologic Neurologic: CNII-XII intact, moves all extremities Results - Labs CBC & Chem 7: 10/30/18 02:47 10/30/18 02:47 Labs: Laboratory Last Values WBC 6.7 K/mm3 (4.5-11.0) 10/30/18 02:47 RBC 4.27 M/mm3 (3.65-5.03) 10/30/18 02:47 Hgb 9.3 gm/dl (11.8-15.2) L 10/30/18 02:47 Hct 30.0 % (35.5-45.6) L 10/30/18 02:47 MCV 70 fl (84-94) L 10/30/18 02:47 MCH 22 pg (28-32) L 10/30/18 02:47 MCHC 31 % (32-34) L 10/30/18 02:47 RDW 20.5 % (13.2-15.2) H 10/30/18 02:47 Plt Count 340 K/mm3 (140-440) 10/30/18 02:47 Lymph % (Auto) 10.1 % (13.4-35.0) L 10/30/18 02:47 [place] % (Auto) 3.8 % (0.0-7.3) 10/30/18 02:47 Eos % (Auto) 1.5 % (0.0-4.3) 10/30/18 02:47 Baso % (Auto) 0.6 % (0.0-1.8) 10/30/18 02:47 Lymph # 0.7 K/mm3 (1.2-5.4) L 10/30/18 02:47 [place] # 0.3 K/mm3 (0.0-0.8) 10/30/18 02:47 Eos # 0.1 K/mm3 (0.0-0.4) 10/30/18 02:47 Baso # 0.0 K/mm3 (0.0-0.1) 10/30/18 02:47 Seg Neutrophils % 84.0 % (40.0-70.0) H 10/30/18 02:47 Seg Neutrophils # 5.6 K/mm3 (1.8-7.7) 10/30/18 02:47 PT 12.8 Sec. (12.2-14.9) 10/30/18 02:47 INR 0.99 (0.87-1.13) 10/30/18 02:47 Sodium 142 mmol/L (137-145) 10/30/18 02:47 Potassium 3.5 mmol/L (3.6-5.0) L 10/30/18 02:47 Chloride 98.0 mmol/L (98-107) 10/30/18 02:47 Carbon Dioxide 29 mmol/L (22-30) 10/30/18 02:47 19 mmol/L 10/30/18 02:47 BUN 16 mg/dL (9-20) 10/30/18 02:47 1.4 mg/dL (0.8-1.5) 10/30/18 02:47 Estimated GFR 51 ml/min 10/30/18 02:47 11 % 10/30/18 02:47 Glucose 169 mg/dL (75-100) H 10/30/18 02:47 POC Glucose 119 (70-105) H 10/31/18 11:36 Calcium 7.6 mg/dL (8.4-10.2) L 10/30/18 02:47 0.20 mg/dL (0.1-1.2) 10/30/18 02:47 AST 21 units/L (5-40) 10/30/18 02:47 ALT 14 units/L (7-56) 10/30/18 02:47 59 units/L (35-129) 10/30/18 02:47 272 units/L (91-180) H 10/30/18 02:47 406 units/L (55-170) H 10/30/18 13:04 CK-MB (CK-2) 7.5 ng/mL (0.0-4.0) H 10/30/18 13:04 CK-MB (CK-2) Rel Index 1.8 (0-4) 10/30/18 13:04 < 0.010 ng/mL (0.00-0.029) 10/30/18 13:04 NT-Pro-B Natriuret Pep 237.8 pg/mL (0-900) 10/30/18 02:47 8.0 g/dL (6.3-8.2) 10/30/18 02:47 3.9 g/dL (3.9-5) 10/30/18 02:47 1.0 % 10/30/18 02:47 Active Medications - Current Medications Current Medications: Generic Name Dose Route Start Last Admin Trade Name Freq PRN Reason Stop Dose Admin Acetaminophen 650 mg 10/30/18 05:12 10/31/18 14:09 Tylenol PO 650 mg Q4H PRN Administration Pain MILD(1-3)/Fever >100.5/KOENIG Albuterol/Ipratropium 1 ampul 10/30/18 08:00 10/31/18 13:00 Duoneb *Not For Prn Use* IH 1 ampul Q6HRT NADIA Administration Budesonide 0.5 mg 10/30/18 08:00 10/31/18 08:00 Pulmicort IH 0.5 mg Q12HRT NADIA Administration Famotidine 20 mg 10/30/18 10:00 10/31/18 10:07 Pepcid IV 20 mg BID NADIA Administration Methylprednisolone Sodium Succinate 60 mg 10/30/18 14:00 10/31/18 14:09 Solu-Medrol IV 60 mg Q8HR NADIA Administration Montelukast Sodium 10 mg 10/30/18 22:00 10/30/18 22:06 Singulair PO 10 mg QHS NADIA Administration Ondansetron HCl 4 mg 10/30/18 05:12 Zofran IV Q8H PRN Nausea And Vomiting Sodium Chloride 10 ml 10/30/18 10:00 10/31/18 10:07 Sodium Chloride Flush Syringe 10 Ml IV 10 ml BID NADIA Administration Sodium Chloride 10 ml 10/30/18 05:12 Sodium Chloride Flush Syringe 10 Ml IV PRN PRN LINE FLUSH Zolpidem Tartrate 5 mg 10/30/18 22:52 10/31/18 01:09 Ambien PO 5 mg QHS PRN Administration Sleep
[2018-10-31] MEDS: SINGULAIR PO SCH (21:38)
[2018-11-01] MEDS: DUONEB *Not for PRN Use IH SCH ×3 (01:29→15:05)
[2018-11-01 06:06] VITALS: BP 146/88
[2018-11-01] MEDS: SOLU-Medrol IV SCH (06:30)
[2018-11-01] MEDS: PULMICORT IH SCH (07:02)
--- NOTE | 2018-11-01 07:59 | Discharge Summary ---
Providers - Providers Date of Admission: 10/30/18 05:12 Date of discharge: 11/01/18 Attending physician: HERO LANTIGUA 10/31/18 08:43 Consult to Physician [CONS] Routine Comment: Consulting Provider: LALI FRIED Physician Instructions: Reason For Exam: cp Primary care physician: [employer]ST[employer]ER Hospitalization Reason for admission: copd exac, cp Condition: Fair Hospital course: Patient is a 62-year-old male with PMHx of COPD, HIV infection, HDL who was brought to the ER for c/o SOBx 2 days [employer]PER[employer]. Pt states that he has a h/o COPD and used negulizer at home without improvement in symptoms. EMS was initially called and he received nebulizer treatment with improvement. Pt states that the SOB returned, associated with sharp substernal chest pain, EMS was called again and he received additional nebulizer treatment and Solumedrol and was taking to the ER for further evaluation. In the ER, pt was put in a bipap due to unresolved dyspnea. He admitted to occasional cocaine use but denied prior heart disease. Patient denied cough, chest congestion, denies ill-contact, denies any fever, denies chills. Pt was seen in the ER and admitted for further evaluation and treatment. The patient was admitted with diagnosis of atypical chest pain and COPD exacerbation. The patient received bronchodilators, nebulizer and steroid treatment for the COPD exacerbation with improvement back to baseline. The patient was seen by cardiology in consultation for the chest pain. Patient with troponin that was negative and ECG that was normal. Chest x-ray revealed normal heart size and no evidence of CHF. Cardiology recommended outpatient stress test. Patient is felt to have received [facility] enefit and will be discharged home. Dedicated discharge time 32 minutes. Disposition: DC-01 TO HOME OR SELFCARE Time spent for discharge: 32 - Discharge Diagnoses (1) COPD exacerbation Status: Acute (2) Chest pain Status: Acute (3) Anemia Status: Acute Qualifiers: Anemia type: unspecified type Qualified Code(s): D64.9 - Anemia, unspecified (4) HIV (human immunodeficiency virus infection) Status: Acute Qualifiers: HIV symptom status: unspecified Qualified Code(s): B20 - Human immunodeficiency virus [HIV] disease Core Measure Documentation - Palliative Care Palliative Care/ Comfort Measures: Not Applicable - Core Measures Any of the following diagnoses?: none Exam - Constitutional Vitals: Temp Pulse Resp BP Pulse Ox 98.3 F 86 20 146/88 95 11/01/18 05:17 11/01/18 05:17 11/01/18 05:17 11/01/18 05:11/01/18 05:17 General appearance: Present: no acute distress, well-nourished - EENT Eyes: Present: PERRL ENT: hearing intact, clear oral mucosa - Neck Neck: Present: supple, normal ROM - Respiratory Respiratory effort: normal Respiratory: bilateral: CTA - Cardiovascular Heart Sounds: Present: S1 & S2. Absent: rub, click - Extremities Extremities: pulses symmetrical, No edema Peripheral Pulses: within normal limits - Abdominal General gastrointestinal: Present: soft, non-tender, non-distended, normal bowel sounds Male genitourinary: Present: normal - Integumentary Integumentary: Present: clear, warm, dry - Musculoskeletal Musculoskeletal: gait normal, strength equal bilaterally - Psychiatric Psychiatric: appropriate mood/affect, intact judgment & insight - Neurologic Neurologic: CNII-XII intact, moves all extremities Plan Activity: no restrictions Weight Bearing Status: Full Weight Bearing Diet: low fat, low cholesterol, low salt Additional Instructions: F/U with Dr. Prince for OP stress test Follow up with: PRIMARY CAREMD [Primary Care Provider] - 3-5 Days DAVE PRINCE MD [Staff Physician] - 7 Days Prescriptions: Aspirin [Aspirin BABY CHEW TAB] 81 mg PO QDAY #30 tab.chew traZODone [Desyrel] 50 mg PO QHS #30 tablet Ipratropium/Albuterol Sulfate [DUONEB *Not for PRN Use*] 1 ampul IH Q6HR #120 ampul.neb Apixaban [Eliquis] 5 mg PO BID #60 tablet Tamsulosin [Flomax] 0.4 mg PO DAILY #30 capsule Fluticasone Propionate [Flovent Hfa] 10.6 gm IH BID 30 Days aer.w.adap Losartan-Hctz 50-12.5 mg Tab 1 each PO DAILY #30 methylPREDNISolone [Medrol 4MG DOSEPAK (21 tabs)] 4 mg PO DAILY #1 tab.ds.pk amLODIPine [Norvasc] 10 mg PO QDAY #30 tablet Montelukast [Singulair] 10 mg PO QHS #30 tablet
[2018-11-01] MEDS: PEPCID IV SCH (10:22)
[2018-11-01] MEDS: SODIUM CHLORIDE FLUSH SYRINGE 10 ML IV SCH (10:31)
== END 2018-11-01 13:35 | disposition home or self-care (01) | DRG 191 ==
LOC: ED 01:15 → 4A 05:12
PROVIDERS: ADMIT Internal Medicine; ATTEND Hospitalist
PROC: 5A09357 Assistance with Respiratory Ventilation, Less than 24 Consecutive Hours, Continuous Positive Airway Pressure (ICD-10-PCS; principal; 2018-10-30)
DX: J44.1 Chronic obstructive pulmonary disease with (acute) exacerbation (principal); M62.82 Rhabdomyolysis; I10 Essential (primary) hypertension; G89.29 Other chronic pain; F17.210 Nicotine dependence, cigarettes, uncomplicated; Z21 Asymptomatic human immunodeficiency virus [HIV] infection status; E87.5 Hyperkalemia; F14.90 Cocaine use, unspecified, uncomplicated; D64.9 Anemia, unspecified; R07.89 Other chest pain; Z79.82 Long term (current) use of aspirin
CPT/HCPCS: 36415; 71045; 80053; 82550; 82553; 82962; 83615; 83880; 84484; 85025; 85610; 93005; 93010; 94640; 94644; 94760; 99406; G0378; J2930

== ENCOUNTER 2018-12-01 12:28 | Emergency (ER) | payer SELFPAY ==
[2018-12-01] MEDS ORDERED: ACETAMINOPHEN 325 MG TAB PO ONE (13:14)
[2018-12-01] MEDS ORDERED: ALBUTEROL 2.5 MG/3 ML NEBU IH ONE (13:14)
[2018-12-01] MEDS ORDERED: SUCRALFATE 1 GM/10 ML ORAL LIQD PO ONE (13:14)
[2018-12-01] MEDS ORDERED: FAMOTIDINE 20 MG TAB PO ONE (13:14)
[2018-12-01] MEDS ORDERED: IBUPROFEN 400 MG TAB PO ONE (13:14)
--- NOTE | 2018-12-01 13:15 | Emergency Department Report ---
<SRI ESPANA - Last Filed: 12/01/18 16:20> ED General Adult HPI - General Chief complaint: Chest Pain Stated complaint: CP/RICKY Time Seen by Provider: 12/01/18 12:37 - Related Data Home Medications Medication Instructions Recorded Confirmed Last Taken Triumeq 600-50-300 mg Tablet 1 each DAILY 08/03/18 10/30/18 Unknown clonazePAM 1 mg PO PRN PRN 08/03/18 10/30/18 1 Day Ago ~08/03/18 Previous Rx's Medication Instructions Recorded Last Taken Type Nicotine [Habitrol] 14 mg TD QDAY #4 patch 08/05/18 Unknown Rx Apixaban [Eliquis] 5 mg PO BID #60 tablet 11/01/18 Unknown Rx Aspirin [Aspirin BABY CHEW TAB] 81 mg PO QDAY #30 tab.chew 11/01/18 Unknown Rx Fluticasone Propionate [Flovent 10.6 gm IH BID 30 Days aer.w.adap 11/01/18 Unknown Rx Hfa] Ipratropium/Albuterol Sulfate 1 ampul IH Q6HR #120 ampul.neb 11/01/18 Unknown Rx [DUONEB *Not for PRN Use*] Losartan-Hctz 50-12.5 mg Tab 1 each PO DAILY #30 11/01/18 Unknown Rx Montelukast [Singulair] 10 mg PO QHS #30 tablet 11/01/18 Unknown Rx Tamsulosin [Flomax] 0.4 mg PO DAILY #30 capsule 11/01/18 Unknown Rx amLODIPine [Norvasc] 10 mg PO QDAY #30 tablet 11/01/18 Unknown Rx methylPREDNISolone [Medrol 4MG 4 mg PO DAILY #1 tab.ds.pk 11/01/18 Unknown Rx DOSEPAK (21 tabs)] traZODone [Desyrel] 50 mg PO QHS #30 tablet 11/01/18 Unknown Rx Albuterol Sulfate [Proair 90 mcg IH Q4HR PRN #2 aer.pow.ba 11/14/18 Unknown Rx Respiclick] Aspirin [Aspirin BABY CHEW TAB] 81 mg PO QDAY #30 tab.chew 11/14/18 Unknown Rx Famotidine [Pepcid] 20 mg PO BID #10 tablet 11/14/18 Unknown Rx Acetaminophen [Non-Aspirin Extra 500 mg PO Q6HR PRN #30 tablet 12/01/18 Unknown Rx Strength] Albuterol Sulfate [Proair 90 mcg IH Q4HR PRN #2 aer.pow.ba 12/01/18 Unknown Rx Respiclick] Aspirin [Aspirin BABY CHEW TAB] 81 mg PO QDAY #30 tab.chew 12/01/18 Unknown Rx Famotidine [Pepcid] 20 mg PO BID #30 tablet 12/01/18 Unknown Rx Allergies Allergy/AdvReac Type Severity Reaction Status Date / Time No Known Allergies Allergy Verified 01/22/13 22:23 ED Past Medical Hx - Medications Home Medications: Home Medications Medication Instructions Recorded Confirmed Last Taken Type Triumeq 600-50-300 mg Tablet 1 each DAILY 08/03/18 10/30/18 Unknown History clonazePAM 1 mg PO PRN PRN 08/03/18 10/30/18 1 Day Ago History ~08/03/18 Nicotine [Habitrol] 14 mg TD QDAY #4 patch 08/05/18 10/30/18 Unknown Rx Apixaban [Eliquis] 5 mg PO BID #60 tablet 11/01/18 Unknown Rx Aspirin [Aspirin BABY CHEW TAB] 81 mg PO QDAY #30 tab.chew 11/01/18 Unknown Rx Fluticasone Propionate [Flovent 10.6 gm IH BID 30 Days aer.w.adap 11/01/18 Unknown Rx Hfa] Ipratropium/Albuterol Sulfate 1 ampul IH Q6HR #120 ampul.neb 11/01/18 Unknown Rx [DUONEB *Not for PRN Use*] Losartan-Hctz 50-12.5 mg Tab 1 each PO DAILY #30 11/01/18 Unknown Rx Montelukast [Singulair] 10 mg PO QHS #30 tablet 11/01/18 Unknown Rx Tamsulosin [Flomax] 0.4 mg PO DAILY #30 capsule 11/01/18 Unknown Rx amLODIPine [Norvasc] 10 mg PO QDAY #30 tablet 11/01/18 Unknown Rx methylPREDNISolone [Medrol 4MG 4 mg PO DAILY #1 tab.ds.pk 11/01/18 Unknown Rx DOSEPAK (21 tabs)] traZODone [Desyrel] 50 mg PO QHS #30 tablet 11/01/18 Unknown Rx Albuterol Sulfate [Proair 90 mcg IH Q4HR PRN #2 aer.pow.ba 11/14/18 Unknown Rx Respiclick] Aspirin [Aspirin BABY CHEW TAB] 81 mg PO QDAY #30 tab.chew 11/14/18 Unknown Rx Famotidine [Pepcid] 20 mg PO BID #10 tablet 11/14/18 Unknown Rx Acetaminophen [Non-Aspirin Extra 500 mg PO Q6HR PRN #30 tablet 12/01/18 Unknown Rx Strength] Albuterol Sulfate [Proair 90 mcg IH Q4HR PRN #2 aer.pow.ba 12/01/18 Unknown Rx Respiclick] Aspirin [Aspirin BABY CHEW TAB] 81 mg PO QDAY #30 tab.chew 12/01/18 Unknown Rx Famotidine [Pepcid] 20 mg PO BID #30 tablet 12/01/18 Unknown Rx ED Medical Decision Making - Lab Data Result diagrams: 12/01/18 13:18 12/01/18 13:18 ED Disposition Clinical Impression: Chest pain, Renal insufficiency Disposition: DC- TO HOME OR SELFCARE Condition: Stable Additional Instructions: Avoid consumption of Motrin, ibuprofen, Naprosyn, Aleve. Take the prescribed medications as needed/directed. Avoid consumption of heavy and/or spicy foods. Continue current outpatient medications, recommend follow-up with the primary care doctor within the next 7-10 days. Recommend follow-up with a hand cloth folder within the next 3-5 days. Return to the emergency room right away with new, worse or different symptoms not present on the initial emergency room evaluation. Prescriptions: Aspirin [Aspirin BABY CHEW TAB] 81 mg PO QDAY #30 tab.chew Acetaminophen [Non-Aspirin Extra Strength] 500 mg PO Q6HR PRN #30 tablet PRN Reason: Pain , Severe (7-10) Famotidine [Pepcid] 20 mg PO BID #30 tablet Albuterol Sulfate [Proair Respiclick] 90 mcg IH Q4HR PRN #2 aer.pow.ba PRN Reason: Wheezing Referrals: [facility] [Provider Group] - 3-5 Days [facility] [Provider Group] - 3-5 Days [facility] [Provider Group] - 3-5 Days <BLADE GABRIEL - Last Filed: 12/02/18 14:18> ED General Adult HPI - General Source: patient, EMS (ems notes not available at time of chart dictation), RN notes reviewed, old records reviewed Mode of arrival: Stretcher Limitations: No Limitations - History of Present Illness Initial comments: This is a 63-year-old gentleman. I am familiar with this patient. He has a past medical history of COPD, HIV, high cholesterol, who was recently evaluated by myself for chest pain. Patient also recently had an unremarkable nuclear stress at this hospital. When I recently evaluated him, he is a negative CT scan of the chest for pulmonary embolus, multiple negative troponins, and unchanged EKG. Today, the patient presents to the ER with a complaint of central chest pain, present for 11 hours. The pain is constant and does not radiate to the back. He endorses chronic shortness of breath. He denies recurrent or new DVT or pulmonary embolus risk factors. He denies vomiting, diaphoresis. He denies additional complaints. His presentation today is similar to his prior presentation. -: Gradual Location: chest Severity scale (0 -10): 7 Consistency: constant Improves with: none Worsens with: none ED Review of Systems ROS: Stated complaint: CP/RICKY Other details as noted in HPI Constitutional: denies: fever Eyes: denies: eye discharge ENT: congestion Respiratory: shortness of breath Cardiovascular: chest pain Gastrointestinal: denies: nausea, vomiting Musculoskeletal: denies: back pain Skin: denies: lesions Neurological: denies: weakness ED Past Medical Hx - Past Medical History Hx Hypertension: Yes Hx Congestive Heart Failure: No Hx Diabetes: No Hx Asthma: Yes Hx COPD: Yes Hx HIV: Yes Additional medical history: Elevated Cholesterol & Chronic back pain. - Social History Smoking Status: Current Every Day Smoker Substance Use Type: None ED Physical Exam - General Limitations: No Limitations General appearance: alert, in no apparent distress - Head Head exam: Present: atraumatic, normocephalic - Eye Eye exam: Present: normal appearance, EOMI. Absent: nystagmus - ENT ENT exam: Present: normal exam, normal orophraynx, mucous membranes moist, normal external ear exam - Neck Neck exam: Present: normal inspection, full ROM. Absent: tenderness, meningismus - Respiratory Respiratory exam: Present: normal lung sounds bilaterally, decreased breath sounds. Absent: respiratory distress, rales, rhonchi, stridor - Cardiovascular Cardiovascular Exam: Present: regular rate, normal rhythm, normal heart sounds. Absent: bradycardia, tachycardia, irregular rhythm, systolic murmur, diastolic murmur, rubs, gallop - GI/Abdominal GI/Abdominal exam: Present: soft. Absent: distended, tenderness, guarding, rebound, rigid, pulsatile mass - Rectal Rectal exam: Present: deferred - Extremities Exam Extremities exam: Present: normal inspection, full ROM, other (2+ pulses noted in the bilateral upper, lower extremities. Compartments soft. No long bony tenderness. The pelvis is stable.). Absent: pedal edema, calf tenderness - Back Exam Back exam: Present: normal inspection, full ROM. Absent: tenderness, CVA tenderness (R), CVA tenderness (L), paraspinal tenderness, vertebral tenderness - Neurological Exam Neurological exam: Present: alert, other (Extraocular movements intact. Tongue midline. No facial droop. Facial sensation intact to light touch in the V1, V2, V3 distribution bilaterally. 5 and 5 strength in 4 extremities.. Sensation is intact to light touch in 4 extremities.). Absent: motor sensory deficit - Psychiatric Psychiatric exam: Present: flat affect - Skin Skin exam: Present: warm, dry, intact, normal color. Absent: rash ED Course Vital Signs 12/01/18 12/01/18 12/01/18 12:48 12:58 16:35 Temperature 98.2 F 98.2 F 98.2 F Pulse Rate 90 90 72 Respiratory 17 17 17 Rate Blood Pressure 110/72 Blood Pressure 110/72 110/72 115/82 [Left] O2 Sat by Pulse 97 97 98 Oximetry - Reevaluation(s) Reevaluation #1: 12/01/18 14:18 Differential diagnosis, including but not limited to: Pneumonia, bronchitis, COPD, acute coronary syndrome, Assessment and plan: 63-year-old gentleman, presenting with recurrent chest pain and shortness of breath. He is not tachycardic, hypoxic, tachypneic, and he does not appear to be in any acute distress. His examination today is similar to her prior evaluation. I recently evaluated for similar complaints, and he was ruled out for pulmonary embolus, pneumonia and pneumothorax. I find him to be low risk by well's criteria, and given his recent extensive workup, did not see a reason to repeat risk stratification for pulmonary embolism, as I do not suspect a pulmonary embolism at this time. From a cardiac risk stratification standpoint, his troponin is negative, EKG is unchanged, and he recently had a nuclear stress test. Given all the subjective information, and clinical history, duration of symptoms, the patient in my opinion is at low risk for major adverse cardiac event. Has incidental mild renal insufficiency, he'll be given IV fluids. He can follow up with an outpatient primary care doctor. ED Medical Decision Making - Lab Data Result diagrams: 12/01/18 13:18 12/01/18 13:18 Vital Signs 12/01/18 12/01/18 12:48 12:58 Temperature 98.2 F 98.2 F Pulse Rate 90 90 Respiratory 17 17 Rate Blood Pressure 110/72 Blood Pressure 110/72 110/72 [Left] O2 Sat by Pulse 97 97 Oximetry Lab Results 12/01/18 12/01/18 12/01/18 Range/Units 13:18 13:18 13:18 WBC 6.2 (4.5-11.0) K/mm3 RBC 4.12 (3.65-5.03) M/mm3 Hgb 8.6 L (11.8-15.2) gm/dl Hct 28.2 L (35.5-45.6) % MCV 69 L (84-94) fl MCH 21 L (28-32) pg MCHC 30 L (32-34) % RDW 21.2 H (13.2-15.2) % Plt Count 341 (140-440) K/mm3 PT 13.8 (12.2-14.9) Sec. INR 1.09 (0.87-1.13) APTT 25.3 (24.2-36.6) Sec. Sodium 144 (137-145) mmol/L Potassium 4.0 (3.6-5.0) mmol/L Chloride 108.0 H (98-107) mmol/L Carbon Dioxide 24 (22-30) mmol/L Anion Gap 16 mmol/L BUN 24 H (9-20) mg/dL Creatinine 1.7 H (0.8-1.5) mg/dL Estimated GFR 41 ml/min BUN/Creatinine Ratio 14 % Glucose 103 H (75-100) mg/dL Calcium 7.3 L (8.4-10.2) mg/dL Magnesium 2.20 (1.7-2.3) mg/dL Total Creatine Kinase 711 H (55-170) units/L Troponin T < 0.010 (0.00-0.029) ng/mL - EKG Data -: EKG Interpreted by Hi EKG shows normal: sinus rhythm Rate: normal - EKG Data When compared to previous EKG there are: no significant change 12/01/18 14:17 Today's EKG is unchanged from prior. EKG #1 shows a sinus rhythm, 69 bpm, left axis deviation, low voltage, motion artifact, high left ventricular voltage, the EKG is abnormal, it is unchanged from prior October 2018, EKG #[address] is not consistent with ST elevation myocardial infarction. EKG #2 was unchanged from prior. Both EKGs are unchanged. - Radiology Data Radiology results: report reviewed, image reviewed Print Report Referring Physician: BLADE GABRIEL Patient Name: NAVARRO YAN Date of : 1955 Sex: Male Report Date: 2018-12-01 Report Status: Finalized Findings [facility] [address] [place] [address] XRay Report Signed Patient: NAVARRO YAN MR #: [id number] : 1955 Acct:[id number] Age/Sex: 63 / M ADM Date: 12/01/18 Loc: ED Attending Dr: Ordering Physician: BLADE GABRIEL MD Date of Service: 12/01/18 Procedure(s): XR chest 1V ap Accession Number(s): [id number] cc: BLADE GABRIEL MD Fluoro Time In Minutes: CHEST 1 VIEW INDICATION: Chest Pain. COMPARISON: 11/14/2018 FINDINGS: Support devices: None. Heart: Within normal limits. Lungs/Pleura: No acute air space or interstitial disease. Mild underlying emphysematous changes are suspected in the upper lobes. Additional findings: None. IMPRESSION: No acute findings. Signer Name: Edmund Valdes Jr, MD Signed: 12/01/2018 1:44 PM Workstation Name: [id number] Transcribed By: TTR Dictated By: EDMUND VALDES JR, MD Electronically Authenticated By: EDMUND VALDES JR, MD Signed Date/Time: 12/01/18 134 Referring Physician: BLADE GABRIEL Patient Name: NAVARRO YAN Date of : 1955 Sex: Male Report Date: 2018-11-14 Report Status: Finalized [facility] [address] [place] [address] Cat Scan Report Signed Patient: NAVARRO YAN MR #: [id number] : 1955 Acct:[id number] Age/Sex: 62 / M ADM Date: 11/14/18 Loc: ED Attending Dr: Ordering Physician: BLADE GABRIEL MD Date of Service: 11/14/18 Procedure(s): CT angio chest Accession Number(s): [id number] cc: BLADE GABRIEL MD CT angio chest INDICATION / CLINICAL INFORMATION: cp sob. TECHNIQUE: Precontrast bolus timing images were obtained followed by postcontrast axial and reformatted images. 3-plane MIP reconstructions were performed at an independent workstation by the technologist. All CT scans at this location are performed using CT dose reduction for ALARA by means of automated exposure control. COMPARISON: 08/09/2018 FINDINGS: Pulmonary arterial enhancement is normal bilaterally. No evidence of pulmonary embolus. No mediastinal abnormality. Scattered calcified granulomata are seen bilaterally. There is mild bullous lung disease but no superimposed acute pulmonary opacities. There is a small parenchymal density medially in the left lower lobe that likely represents atelectasis. No significant osseous abnormality. IMPRESSION: 1. No pulmonary embolus or acute lung disease. Signer Name: Rich Menendez MD Signed: 11/14/2018 3:29 PM Workstation Name: [id number] Transcribed By: MERE Dictated By: Rich Menendez MD Electronically Authenticated By: Rich Menendez MD Signed Date/Time: 11/14/18 1529 Vital Signs 12/01/18 12/01/18 12:48 12:58 Temperature 98.2 F 98.2 F Pulse Rate 90 90 Respiratory 17 17 Rate Blood Pressure 110/72 Blood Pressure 110/72 110/72 [Left] O2 Sat by Pulse 97 97 Oximetry Lab Results 12/01/18 12/01/18 12/01/18 Range/Units 13:18 13:18 13:18 WBC 6.2 (4.5-11.0) K/mm3 RBC 4.12 (3.65-5.03) M/mm3 Hgb 8.6 L (11.8-15.2) gm/dl Hct 28.2 L (35.5-45.6) % MCV 69 L (84-94) fl MCH 21 L (28-32) pg MCHC 30 L (32-34) % RDW 21.2 H (13.2-15.2) % Plt Count 341 (140-440) K/mm3 PT 13.8 (12.2-14.9) Sec. INR 1.09 (0.87-1.13) APTT 25.3 (24.2-36.6) Sec. Sodium 144 (137-145) mmol/L Potassium 4.0 (3.6-5.0) mmol/L Chloride 108.0 H (98-107) mmol/L Carbon Dioxide 24 (22-30) mmol/L Anion Gap 16 mmol/L BUN 24 H (9-20) mg/dL Creatinine 1.7 H (0.8-1.5) mg/dL Estimated GFR 41 ml/min BUN/Creatinine Ratio 14 % Glucose 103 H (75-100) mg/dL Calcium 7.3 L (8.4-10.2) mg/dL Magnesium 2.20 (1.7-2.3) mg/dL Total Creatine Kinase 711 H (55-170) units/L Troponin T < 0.010 (0.00-0.029) ng/mL Critical care attestation.: If time is entered above; I have spent that time in minutes in the direct care of this critically ill patient, excluding procedure time. ED Disposition Is pt being admited?: No Does the pt Need Aspirin: No
[2018-12-01 13:43] LABS: Hematocrit 28.2 % (35.5-45.6); Hemoglobin 8.6 gm/dl (11.8-15.2); INR 1.09 (0.87-1.13); Mean Corpuscular HGB Conc 30 % (32-34); Platelet Count 341 K/mm3 (140-440); Red Blood Count 4.12 M/mm3 (3.65-5.03)
[2018-12-01 13:44] LABS: Mean Corpuscular Volume 69 fl (84-94); Partial Thromboplastin Time 25.3 Sec. (24.2-36.6); Red Cell Distribution Width 21.2 % (13.2-15.2)
--- NOTE | 2018-12-01 13:48 | XRay Report ---
CHEST 1 VIEW INDICATION: Chest Pain. COMPARISON: 11/14/2018 FINDINGS: Support devices: None. Heart: Within normal limits. Lungs/Pleura: No acute air space or interstitial disease. Mild underlying emphysematous changes are s uspected in the upper lobes. Additional findings: None. IMPRESSION: No acute findings. Signer Name: Edmund Valdes Jr, MD Signed: 12/01/2018 1:44 PM Workstation Name: [id number]
[2018-12-01 14:00] LABS: BUN/Creatinine Ratio 14; Blood Urea Nitrogen 24 mg/dL (9-20); Calcium 7.3 mg/dL (8.4-10.2); Hemolysis Index 1
[2018-12-01] MEDS ORDERED: SODIUM CHLORIDE 0.9% 1000 ML 1,000 ML IV ONE (14:07)
[2018-12-01 16:36] VITALS: BP 115/82
== END 2018-12-01 16:35 | disposition home or self-care (01) ==
LOC: ED 12:28
DX: R07.89 Other chest pain (principal); R06.02 Shortness of breath; I10 Essential (primary) hypertension; J44.9 Chronic obstructive pulmonary disease, unspecified; E78.00 Pure hypercholesterolemia, unspecified; M54.9 Dorsalgia, unspecified; G89.29 Other chronic pain; F17.200 Nicotine dependence, unspecified, uncomplicated
CPT/HCPCS: 36415; 71045; 80048; 82550; 83735; 84484; 85027; 85610; 85730; 93005; 93010; 94640; 99284; J7030

== ENCOUNTER 2018-12-10 08:00 | Emergency (ER) | payer SELFPAY ==
--- NOTE | 2018-12-10 08:38 | Emergency Department Report ---
HPI - General Chief Complaint: Dyspnea/Respdistress Time Seen by Provider: 12/10/18 08:31 - HPI HPI: 63 yo AA male come to ER with co SOB. Per EMS they are at his place weekly to give him breathing treatment. He states he can not afford his meds. He does have GoodRx and states hes been to [facility] and they could not help him. EMS told pt they would bring him to the hosp everytime he comes because they cant keep coming to his home to give him without coming to hosp. On arrival to ER he has no wheezing. He admits to cocaine use- a week ago-- he gets it free. He has no chest pain. He lives alone and has no family close. PMH HTN COPD HIV denies cig/etoh PSH none Rx he can not tell me Pt has been in ER 6 times since July of this year. He has been admitted. He has had 2 CTA's Also, had nuclear stress test- which was normal. ED Past Medical Hx - Past Medical History Hx Hypertension: Yes Hx CVA: No Hx Heart Attack/AMI: No Hx Congestive Heart Failure: No Hx Diabetes: No Hx Deep Vein Thrombosis: No Hx Pulmonary Embolism: Yes (was on blood thinner at one time pt states taken off them) Hx GERD: No Hx Liver Disease: No Hx Renal Disease: No Hx of Cancer: No Hx Sickle Cell Disease: No Hx Arthritis: No Hx Headaches / Migraines: No Hx Seizures: No Hx Kidney Stones: No Hx Psychiatric Treatment: No Hx Asthma: Yes Hx COPD: Yes Hx Tuberculosis: No Hx Dementia: No Hx HIV: Yes Additional medical history: Elevated Cholesterol & Chronic back pain. - Surgical History Past Surgical History?: No - Family History Family history: no significant - Social History Smoking Status: Never Smoker Substance Use Type: Cocaine - Medications Home Medications: Home Medications Medication Instructions Recorded Confirmed Last Taken Type Triumeq 600-50-300 mg Tablet 1 each DAILY 08/03/18 10/30/18 Unknown History Albuterol Sulfate [Proair 90 mcg IH Q4HR PRN #2 aer.pow.ba 12/10/18 Unknown Rx Respiclick] Apixaban [Eliquis] 5 mg PO BID #60 tablet 12/10/18 Unknown Rx Aspirin [Aspirin BABY CHEW TAB] 81 mg PO QDAY #30 tab.chew 12/10/18 Unknown Rx Ipratropium/Albuterol Sulfate 1 ampul IH Q6HR #120 ampul.neb 12/10/18 Unknown Rx [DUONEB *Not for PRN Use*] Losartan/Hydrochlorothiazide 1 each PO DAILY #30 tablet 12/10/18 Unknown Rx [Losartan-Hctz 50-12.5 mg Tab] Montelukast [Singulair] 10 mg PO QHS #30 tablet 12/10/18 Unknown Rx ED Review of Systems ROS: Stated complaint: RICKY Other details as noted in HPI Comment: All other systems reviewed and negative Physical Exam - Physical Exam Vital Signs: Vital Signs 12/10/18 12/10/18 08:01 08:08 Temperature 98.0 F Pulse Rate 88 Respiratory 16 Rate Blood Pressure 178/114 O2 Sat by Pulse 100 99 Oximetry Physical Exam: ALERT AND ORIENTED S1S2 LUNGS CTA ON ARRIVAL NO EDEMA NO JVD ED Course Vital Signs 12/10/18 12/10/18 08:01 08:08 Temperature 98.0 F Pulse Rate 88 Respiratory 16 Rate Blood Pressure 178/114 O2 Sat by Pulse 100 99 Oximetry ED Medical Decision Making - Medical Decision Making Vital Signs 12/10/18 12/10/18 12/10/18 08:01 08:08 08:45 Temperature 98.0 F Pulse Rate 88 Respiratory 16 Rate Blood Pressure 178/114 112/63 O2 Sat by Pulse 100 99 Oximetry 12/10/18 12/10/18 12/10/18 09:00 09:16 09:31 Temperature Pulse Rate Respiratory Rate Blood Pressure 133/80 121/79 130/78 O2 Sat by Pulse Oximetry 12/10/18 12/10/18 12/10/18 09:45 10:00 10:46 Temperature Pulse Rate Respiratory Rate Blood Pressure 121/76 119/68 156/75 O2 Sat by Pulse Oximetry SOCIAL ADMIT - SEE HPI SOCIAL WORK HAS MET WITH PT PT VERBALIZES UNDERSTANDING OF DC PLAN OF CARE. DC HOME WITH PLAN FOR RX AND FOLLOW UP ARRANGED AMBULATORY NO WHEEZING VSS NO FEVER NO SPUTUM TAKING PO - Differential Diagnosis copd med non adherence issue Critical care attestation.: If time is entered above; I have spent that time in minutes in the direct care of this critically ill patient, excluding procedure time. ED Disposition Clinical Impression: COPD exacerbation, Nonadherence to medical treatment Disposition: DC-01 TO HOME OR SELFCARE Is pt being admited?: No Does the pt Need Aspirin: No Condition: Stable Instructions: Chronic Obstructive Pulmonary Disease (ED) Additional Instructions: TAKE MEDS INSTRUCTED IF YOU LIVE IN [facility] - THEY OFTEN HAVE PHARMACY SAMPLES AVOID DRUGS AND ALCOHOL FOLLOW UP WITH PCP REFERRAL BELOW Prescriptions: Montelukast [Singulair] 10 mg PO QHS #30 tablet Aspirin [Aspirin BABY CHEW TAB] 81 mg PO QDAY #30 tab.chew Ipratropium/Albuterol Sulfate [DUONEB *Not for PRN Use*] 1 ampul IH Q6HR #120 ampul.neb Apixaban [Eliquis] 5 mg PO BID #60 tablet Losartan/Hydrochlorothiazide [Losartan-Hctz 50-12.5 mg Tab] 1 each PO DAILY #30 tablet Albuterol Sulfate [Proair Respiclick] 90 mcg IH Q4HR PRN #2 aer.pow.ba PRN Reason: Wheezing Referrals: [facility] [Outside] - 3-5 Days [facility] [Outside] - 3-5 Days Time of Disposition: 09:08
[2018-12-10] MEDS ORDERED: methylPREDNISolone Sod Succinate 125 MG/2 ML INJ IM ONE (08:46)
[2018-12-10] MEDS ORDERED: cloNIDine 0.1 MG TAB PO ONE (09:08)
[2018-12-10 11:20] VITALS: BP 156/75
== END 2018-12-10 11:36 | disposition home or self-care (01) ==
LOC: ED 08:00
DX: J44.1 Chronic obstructive pulmonary disease with (acute) exacerbation (principal); I10 Essential (primary) hypertension; M54.9 Dorsalgia, unspecified; G89.29 Other chronic pain; Z91.19 Patient's noncompliance with other medical treatment and regimen; Z21 Asymptomatic human immunodeficiency virus [HIV] infection status; Z86.711 Personal history of pulmonary embolism; Z79.82 Long term (current) use of aspirin; Z79.899 Other long term (current) drug therapy
CPT/HCPCS: 99283; J2930; 96372

== ENCOUNTER 2018-12-30 10:38 | Emergency (ER) | payer OTHER ==
[2018-12-30] MEDS ORDERED: APIXABAN 5 MG TAB PO ONE (11:35)
--- NOTE | 2018-12-30 11:35 | Emergency Department Report ---
ED Chest Pain HPI - General Chief Complaint: Chest Pain Stated Complaint: RICKY Time Seen by Provider: 12/30/18 11:34 Source: EMS Mode of arrival: Stretcher Limitations: No Limitations - History of Present Illness Initial Comments: 63 yo male well known to us comes in with sob, cp and weakness. On provider entrance to room he is ambulatory and eating chips. PCP none RX- OFF all triumeq albuterol eloquid asa losartan singulair VSS. No tachycardia, hypoxia or hypotension. No JVD or swelling of legs. PSH none PMH HIV COPD HTN PE/DVT HPLD stress test normal, EF 56% 11-14-18 CT PE neg 07/2018 CT PE neg Pt states pain comes and goes and has for years. Denies fever or chills. Nothing makes pain better or worse. Pt has taken nothing at home to feel better. He does not take his home meds. Pt has had 3 admits and at least 4 ER visits since July 2018 MD Complaint: chest pain Aspirin use within the Past 7 Days: (0) No - Related Data Home Medications Medication Instructions Recorded Confirmed Last Taken Triumeq 600-50-300 mg Tablet 1 each DAILY 08/03/18 10/30/18 Unknown Previous Rx's Medication Instructions Recorded Last Taken Type Albuterol Sulfate [Proair 90 mcg IH Q4HR PRN #2 aer.pow.ba 12/10/18 Unknown Rx Respiclick] Apixaban [Eliquis] 5 mg PO BID #60 tablet 12/10/18 Unknown Rx Aspirin [Aspirin BABY CHEW TAB] 81 mg PO QDAY #30 tab.chew 12/10/18 Unknown Rx Ipratropium/Albuterol Sulfate 1 ampul IH Q6HR #120 ampul.neb 12/10/18 Unknown Rx [DUONEB *Not for PRN Use*] Losartan/Hydrochlorothiazide 1 each PO DAILY #30 tablet 12/10/18 Unknown Rx [Losartan-Hctz 50-12.5 mg Tab] Montelukast [Singulair] 10 mg PO QHS #30 tablet 12/10/18 Unknown Rx Allergies Allergy/AdvReac Type Severity Reaction Status Date / Time No Known Allergies Allergy Verified 12/30/18 10:44 Heart Score - HEART Score History: Slightly suspicious EKG: Normal Age: 45-65 Risk factors: 1-2 risk factors Troponin: < normal limit HEART Score: 2 ED Review of Systems ROS: Stated complaint: RICKY Other details as noted in HPI Comment: All other systems reviewed and negative ED Past Medical Hx - Past Medical History Hx Hypertension: Yes Hx CVA: No Hx Heart Attack/AMI: No Hx Congestive Heart Failure: No Hx Diabetes: No Hx Deep Vein Thrombosis: No Hx Pulmonary Embolism: Yes (was on blood thinner at one time pt states taken off them) Hx GERD: No Hx Liver Disease: No Hx Renal Disease: No Hx Sickle Cell Disease: No Hx Arthritis: No Hx Headaches / Migraines: No Hx Seizures: No Hx Kidney Stones: No Hx Psychiatric Treatment: No Hx Asthma: Yes Hx COPD: Yes Hx Tuberculosis: No Hx Dementia: No Hx HIV: Yes Additional medical history: Elevated Cholesterol & Chronic back pain. - Surgical History Past Surgical History?: No - Family History Family history: no significant - Social History Smoking Status: Never Smoker - Medications Home Medications: Home Medications Medication Instructions Recorded Confirmed Last Taken Type Triumeq 600-50-300 mg Tablet 1 each DAILY 08/03/18 10/30/18 Unknown History Albuterol Sulfate [Proair 90 mcg IH Q4HR PRN #2 aer.pow.ba 12/10/18 Unknown Rx Respiclick] Apixaban [Eliquis] 5 mg PO BID #60 tablet 12/10/18 Unknown Rx Aspirin [Aspirin BABY CHEW TAB] 81 mg PO QDAY #30 tab.chew 12/10/18 Unknown Rx Ipratropium/Albuterol Sulfate 1 ampul IH Q6HR #120 ampul.neb 12/10/18 Unknown Rx [DUONEB *Not for PRN Use*] Losartan/Hydrochlorothiazide 1 each PO DAILY #30 tablet 12/10/18 Unknown Rx [Losartan-Hctz 50-12.5 mg Tab] Montelukast [Singulair] 10 mg PO QHS #30 tablet 12/10/18 Unknown Rx ED Physical Exam - General Limitations: No Limitations General appearance: alert, in no apparent distress - Head Head exam: Present: atraumatic, normocephalic - Eye Eye exam: Present: normal appearance - ENT ENT exam: Present: mucous membranes moist - Neck Neck exam: Present: normal inspection - Respiratory Respiratory exam: Present: normal lung sounds bilaterally. Absent: respiratory distress - Cardiovascular Cardiovascular Exam: Present: regular rate, normal rhythm. Absent: systolic murmur, diastolic murmur, rubs, gallop - GI/Abdominal GI/Abdominal exam: Present: soft, normal bowel sounds - Rectal Rectal exam: Present: deferred - Extremities Exam Extremities exam: Present: normal inspection - Back Exam Back exam: Present: normal inspection - Neurological Exam Neurological exam: Present: alert, oriented X3 - Psychiatric Psychiatric exam: Present: normal affect, normal mood - Skin Skin exam: Present: warm, dry, intact, normal color. Absent: rash ED Course Vital Signs 12/30/18 12/30/18 12/30/18 10:41 11:48 13:54 Temperature 98.5 F 98.7 F Pulse Rate 82 76 78 Respiratory 18 16 16 Rate Blood Pressure 140/68 Blood Pressure 138/82 138/74 [Right] O2 Sat by Pulse 100 100 100 Oximetry GUIDO score - Guido Score Age > 65: (0) No Aspirin use within the Past 7 Days: (0) No 3 or more CAD Risk Factors: (0) No 2 or more Angina events in past 24 hrs: (0) No Known CAD with more than 50% Stenosis: (0) No Elevated Cardiac Markers: (0) No ST Deviation Greater than 0.5mm: (0) No GUIDO Score: 0 ED Medical Decision Making - Lab Data Result diagrams: 12/30/18 10:59 12/30/18 10:59 - EKG Data -: EKG Interpreted by Vt EKG shows normal: sinus rhythm Rate: normal - EKG Data When compared to previous EKG there are: no significant change - Radiology Data Radiology results: report reviewed, image reviewed - Medical Decision Making Labs 12/30/18 12/30/18 12/30/18 10:59 10:59 10:59 WBC 3.9 L RBC 3.72 Hgb 7.8 L Hct 25.4 L MCV 68 L MCH 21 L MCHC 31 L RDW 21.5 H Plt Count 422 Lymph % (Auto) Cash Management Clerk Mora % (Auto) Cash Management Clerk Eos % (Auto) Cash Management Clerk Baso % (Auto) Cash Management Clerk Lymph # Cash Management Clerk Mora # Cash Management Clerk Eos # Cash Management Clerk Baso # Cash Management Clerk Seg Neutrophils % Cash Management Clerk Seg Neutrophils # Cash Management Clerk PT 13.4 INR 1.03 APTT 26.5 Sodium 144 Potassium 3.8 Chloride 103.8 Carbon Dioxide 25 Anion Gap 19 BUN 11 Creatinine 1.4 Estimated GFR 51 BUN/Creatinine Ratio 8 Glucose 108 H Calcium 7.2 L Total Bilirubin 0.20 AST 13 ALT 9 Alkaline Phosphatase 57 Troponin T < 0.010 Total Protein 7.5 Albumin 4.0 Albumin/Globulin Ratio 1.1 12/30/18 12:58 WBC RBC Hgb Hct MCV MCH MCHC RDW Plt Count Lymph % (Auto) Mora % (Auto) Eos % (Auto) Baso % (Auto) Lymph # Mora # Eos # Baso # Seg Neutrophils % Seg Neutrophils # PT INR APTT Sodium Potassium Chloride Carbon Dioxide Anion Gap BUN Creatinine Estimated GFR BUN/Creatinine Ratio Glucose Calcium Total Bilirubin AST ALT Alkaline Phosphatase Troponin T < 0.010 Total Protein Albumin Albumin/Globulin Ratio Vital Signs 12/30/18 12/30/18 10:41 11:48 Temperature 98.5 F 98.7 F Pulse Rate 82 76 Respiratory 18 16 Rate Blood Pressure 140/68 Blood Pressure 138/82 [Right] O2 Sat by Pulse 100 100 Oximetry vss staffed with Dr Freeman 12 lead and trop neg x 2 Long discussion with pt about all of his ER visits/admits... and med non adheren ce. We have provided him Rx on numerous occasions for his meds but he does not get them filled. Pt being dc home with dc plan of care and referrals. Pt verbalizes understanding of his role in his health care. Pt has recently spoke at length with the hospice social worker who has provided resources. Dc home with family. Critical care attestation.: If time is entered above; I have spent that time in minutes in the direct care of this critically ill patient, excluding procedure time. ED Disposition Clinical Impression: Chest pain, HIV (human immunodeficiency virus infection), Chronic anemia, Non- adherence to medical treatment Disposition: DC-01 TO HOME OR SELFCARE Is pt being admited?: No Does the pt Need Aspirin: No Condition: Stable Instructions: Chest Pain (ED) Additional Instructions: FOLLOW UP WITH PCP REFERRAL BELOW THEY CAN SEE YOU FOR YOUR ONGOING MEDICAL NEEDS AND ASSIST WITH MEDICATIONS. DIET AND ACTIVITY TOLERATED NO DRUGS, CIGARETTES OR ALCOHOL TAKE YOUR HOME MEDS PER ROUTINE Referrals: [facility] [Outside] - 3-5 Days TRISH BERMEO MD [Staff Physician] - 3-5 Days Time of Disposition: 13:37
[2018-12-30 11:37] LABS: INR 1.03 (0.87-1.13)
[2018-12-30 11:38] LABS: Partial Thromboplastin Time 26.5 Sec. (24.2-36.6)
[2018-12-30 11:45] LABS: Hematocrit 25.4 % (35.5-45.6); Hemoglobin 7.8 gm/dl (11.8-15.2); Mean Corpuscular HGB Conc 31 % (32-34); Mean Corpuscular Volume 68 fl (84-94); Platelet Count 422 K/mm3 (140-440); Red Blood Count 3.72 M/mm3 (3.65-5.03); Red Cell Distribution Width 21.5 % (13.2-15.2)
[2018-12-30 11:52] LABS: Alanine Aminotransferase 9 units/L (7-56); BUN/Creatinine Ratio 8; Blood Urea Nitrogen 11 mg/dL (9-20); Calcium 7.2 mg/dL (8.4-10.2); Hemolysis Index 2
--- NOTE | 2018-12-30 12:13 | XRay Report ---
CHEST 2 VIEWS INDICATION / CLINICAL INFORMATION: Chest Pain. COMPARISON: 12/01/2018. FINDINGS: SUPPORT DEVICES: None. HEART / MEDIASTINUM: The heart size and pulmonary vasculature are normal LUNGS / PLEURA: The lungs are hyperinflated. There are a few tiny calcified granulomata in the upper lung zones. The lungs are otherwise clear. No pneumothorax. ADDITIONAL FINDINGS: No significant additional findings. IMPRESSION: Emphysema without acute abnormality. Signer Name: Juan Egan MD Signed: 12/30/2018 12:08 PM Workstation Name: [id number]
[2018-12-30 13:58] VITALS: BP 138/74
== END 2018-12-30 13:55 | disposition home or self-care (01) ==
LOC: ED 10:38
DX: D64.9 Anemia, unspecified (principal); R07.89 Other chest pain; I10 Essential (primary) hypertension; J45.909 Unspecified asthma, uncomplicated; E78.00 Pure hypercholesterolemia, unspecified; Z91.19 Patient's noncompliance with other medical treatment and regimen; Z21 Asymptomatic human immunodeficiency virus [HIV] infection status; Z86.711 Personal history of pulmonary embolism; Z79.899 Other long term (current) drug therapy
CPT/HCPCS: 36415; 71046; 80053; 84484; 85025; 85610; 85730; 93005; 93010

== ENCOUNTER 2019-04-26 13:57 | Inpatient (IN) | payer OTHER ==
[2019-04-26] MEDS ORDERED: IPRATROPIUM 0.02% NEBU 2.5 ML IH ONE (14:58)
[2019-04-26] MEDS ORDERED: methylPREDNISolone Sod Succinate 125 MG/2 ML INJ IV ONE (14:58)
[2019-04-26] MEDS ORDERED: ALBUTEROL 2.5 MG/3 ML NEBU IH ONE ×2 (14:58→20:23)
[2019-04-26] MEDS ORDERED: MAGNESIUM SULFATE 2 GM/50 ML BAG IV ONE (14:58)
[2019-04-26] MEDS ORDERED: KETOROLAC 30 MG/1 ML INJ IV ONE (14:59)
[2019-04-26 15:26] LABS: Hemoglobin 10.8 gm/dl (11.8-15.2); Mean Corpuscular HGB Conc 32 % (32-34); Mean Corpuscular Volume 78 fl (84-94); Platelet Count 344 K/mm3 (140-440); Red Blood Count 4.38 M/mm3 (3.65-5.03)
[2019-04-26 15:31] LABS: Red Cell Distribution Width 29.9 % (13.2-15.2)
--- NOTE | 2019-04-26 15:43 | XRay Report ---
CHEST 1 VIEW INDICATION: cp, sob. COMPARISON: 12/30/2018 FINDINGS: Support devices: None. Heart: Within normal limits. Lungs/Pleura: No acute air space or interstitial disease. Additional findings: None. IMPRESSION: 1. No acute findings. Signer Name: Tanvir Khan MD Signed: 04/26/2019 3:39 PM Workstation Name: [id number]
[2019-04-26 15:52] LABS: BUN/Creatinine Ratio 14; Blood Urea Nitrogen 24 mg/dL (9-20); Calcium 8.7 mg/dL (8.4-10.2); Hemolysis Index 0
[2019-04-26 16:25] LABS: Anisocytosis 2+; Basophils % (Manual) 0 % (0.0-1.8); Eosinophils % (Manual) 0 % (0.0-4.3); Total Cells Counted 100
[2019-04-26 16:26] LABS: Dimorphic RBC Yes; Hypochromasia 1+
[2019-04-26] MEDS ORDERED: SODIUM CHLORIDE 0.9% 1000 ML 1,000 ML IV ONE (17:06)
--- NOTE | 2019-04-26 18:35 | Emergency Department Report ---
ED Shortness of Breath HPI - General Chief Complaint: Dyspnea/Respdistress Stated Complaint: RICKY Time Seen by Provider: 04/26/19 14:49 Source: patient, EMS Mode of arrival: Stretcher Limitations: No Limitations - History of Present Illness Initial Comments: 63-year-old male with a past medical history of HIV with unknown CD4 (but pt denies AIDS), hypertension, COPD without home oxygen use, previous pulmonary embolism but not currently on Eliquis, elevated cholesterol, and asthma presents to the hospital complaining of shortness of breath and wheezing x2 days. Patient also reports a cough and anterior chest pain worse with palpation and cough. Patient been compliant with his medications. However, he does not have any bronchodilators and was unable to take any nebs when wheezing worsened. Patient had a room air saturation of 88% upon arrival. - Related Data Home Medications Medication Instructions Recorded Confirmed Last Taken Triumeq 600-50-300 mg Tablet 1 each DAILY 08/03/18 04/26/19 Unknown Previous Rx's Medication Instructions Recorded Last Taken Type Albuterol Sulfate [Proair 90 mcg IH Q4HR PRN #2 aer.pow.ba 12/10/18 Unknown Rx Respiclick] Apixaban [Eliquis] 5 mg PO BID #60 tablet 12/10/18 Unknown Rx Aspirin [Aspirin BABY CHEW TAB] 81 mg PO QDAY #30 tab.chew 12/10/18 Unknown Rx Ipratropium/Albuterol Sulfate 1 ampul IH Q6HR #120 ampul.neb 12/10/18 Unknown Rx [DUONEB *Not for PRN Use*] Losartan/Hydrochlorothiazide 1 each PO DAILY #30 tablet 12/10/18 Unknown Rx [Losartan-Hctz 50-12.5 mg Tab] Montelukast [Singulair] 10 mg PO QHS #30 tablet 12/10/18 Unknown Rx Allergies Allergy/AdvReac Type Severity Reaction Status Date / Time No Known Allergies Allergy Verified 12/30/18 10:44 ED Review of Systems ROS: Stated complaint: RICKY Other details as noted in HPI Comment: All other systems reviewed and negative ED Past Medical Hx - Past Medical History Hx Hypertension: Yes Hx CVA: No Hx Heart Attack/AMI: No Hx Congestive Heart Failure: No Hx Diabetes: No Hx Deep Vein Thrombosis: No Hx Pulmonary Embolism: Yes (was on blood thinner at one time pt states taken off them) Hx GERD: No Hx Liver Disease: No Hx Renal Disease: No Hx Sickle Cell Disease: No Hx Arthritis: No Hx Headaches / Migraines: No Hx Seizures: No Hx Kidney Stones: No Hx Psychiatric Treatment: No Hx Asthma: Yes Hx COPD: Yes Hx Tuberculosis: No Hx Dementia: No Hx HIV: Yes Additional medical history: Elevated Cholesterol & Chronic back pain. - Surgical History Past Surgical History?: No - Social History Smoking Status: Current Some Day Smoker Substance Use Type: Cocaine - Medications Home Medications: Home Medications Medication Instructions Recorded Confirmed Last Taken Type Triumeq 600-50-300 mg Tablet 1 each DAILY 08/03/18 04/26/19 Unknown History Albuterol Sulfate [Proair 90 mcg IH Q4HR PRN #2 aer.pow.ba 12/10/18 04/26/19 Unknown Rx Respiclick] Apixaban [Eliquis] 5 mg PO BID #60 tablet 12/10/18 04/26/19 Unknown Rx Aspirin [Aspirin BABY CHEW TAB] 81 mg PO QDAY #30 tab.chew 12/10/18 04/26/19 Unknown Rx Ipratropium/Albuterol Sulfate 1 ampul IH Q6HR #120 ampul.neb 12/10/18 04/26/19 Unknown Rx [DUONEB *Not for PRN Use*] Losartan/Hydrochlorothiazide 1 each PO DAILY #30 tablet 12/10/18 04/26/19 Unknown Rx [Losartan-Hctz 50-12.5 mg Tab] Montelukast [Singulair] 10 mg PO QHS #30 tablet 12/10/18 04/26/19 Unknown Rx ED Physical Exam - General Limitations: No Limitations - Other Other exam information: General: No acute distress Head: Atraumatic Eyes: normal appearance ENT: Moist mucous membranes Neck: Normal appearance, no midline tenderness Chest: Bilateral wheezing, mild tachypnea, anterior chest wall tenderness to palpation CV: Regular rate and rhythm Abdomen: Soft, normal bowel sounds, nontender, nondistended, no rebound or guarding Back: Normal inspection Extremity: Normal inspection, full range of motion, no calf tenderness or leg edema Neuro: Alert O x 3, no facial asymmetry, speech clear, no gross motor sensory deficit Psych: Appropriate behavior Skin: No rash ED Course Vital Signs 03/02/20 03/02/20 03/02/20 14:28 14:36 15:25 Temperature 99.4 F Pulse Rate 105 H Pulse Rate [ 103 H Anterior Bilateral Throughout] Respiratory 23 23 Rate Respiratory 21 Rate [Anterior Bilateral Throughout] Blood Pressure 123/78 Blood Pressure [Right] O2 Sat by Pulse 88 Oximetry 04/26/19 04/26/19 04/26/19 15:57 16:15 17:05 Temperature 98.6 F Pulse Rate 102 H 89 Pulse Rate [ Anterior Bilateral Throughout] Respiratory 24 19 20 Rate Respiratory Rate [Anterior Bilateral Throughout] Blood Pressure Blood Pressure 90/42 89/50 [Right] O2 Sat by Pulse 98 95 Oximetry 04/26/19 04/26/19 04/26/19 19:00 19:49 20:30 Temperature Pulse Rate 74 75 76 Pulse Rate [ Anterior Bilateral Throughout] Respiratory 27 H 26 H 24 Rate Respiratory Rate [Anterior Bilateral Throughout] Blood Pressure 91/60 Blood Pressure 93/51 120/92 [Right] O2 Sat by Pulse 95 88 94 Oximetry 04/26/19 21:16 Temperature Pulse Rate 77 Pulse Rate [ Anterior Bilateral Throughout] Respiratory 25 H Rate Respiratory Rate [Anterior Bilateral Throughout] Blood Pressure 111/71 Blood Pressure [Right] O2 Sat by Pulse 100 Oximetry ED Medical Decision Making - Lab Data Result diagrams: 04/26/19 15:05 04/26/19 15:05 Lab Results 04/26/19 04/26/19 04/26/19 Range/Units 15:05 15:05 20:00 WBC 5.7 (4.5-11.0) K/mm3 RBC 4.38 (3.65-5.03) M/mm3 Hgb 10.8 L (11.8-15.2) gm/dl Hct 34.0 L (35.5-45.6) % MCV 78 L (84-94) fl MCH 25 L (28-32) pg MCHC 32 (32-34) % RDW 29.9 H (13.2-15.2) % Plt Count 344 (140-440) K/mm3 Add Manual Diff Complete Total Counted 100 Seg Neuts % (Manual) 84.0 H (40.0-70.0) % Band Neutrophils % 0 % Lymphocytes % (Manual) 12.0 L (13.4-35.0) % Reactive Lymphs % (Man) 0 % Monocytes % (Manual) 4.0 (0.0-7.3) % Eosinophils % (Manual) 0 (0.0-4.3) % Basophils % (Manual) 0 (0.0-1.8) % Metamyelocytes % 0 % Myelocytes % 0 % Promyelocytes % 0 % Blast Cells % 0 % Nucleated RBC % Not Reportable Seg Neutrophils # Man 4.8 (1.8-7.7) K/mm3 Band Neutrophils # 0.0 K/mm3 Lymphocytes # (Manual) 0.7 L (1.2-5.4) K/mm3 Abs React Lymphs (Man) 0.0 K/mm3 Monocytes # (Manual) 0.2 (0.0-0.8) K/mm3 Eosinophils # (Manual) 0.0 (0.0-0.4) K/mm3 Basophils # (Manual) 0.0 (0.0-0.1) K/mm3 Metamyelocytes # 0.0 K/mm3 Myelocytes # 0.0 K/mm3 Promyelocytes # 0.0 K/mm3 Blast Cells # 0.0 K/mm3 WBC Morphology Not Reportable Hypersegmented Neuts Not Reportable Hyposegmented Neuts Not Reportable Hypogranular Neuts Not Reportable Smudge Cells Not Reportable Toxic Granulation Not Reportable Toxic Vacuolation Not Reportable Dohle Bodies Not Reportable Pelger-Huet Anomaly Not Reportable Ruma Rods Not Reportable Platelet Estimate Not Reportable Clumped Platelets Not Reportable Plt Clumps, EDTA Not Reportable Large Platelets Not Reportable Giant Platelets Not Reportable Platelet Satelliting Not Reportable Plt Morphology Comment Not Reportable RBC Morphology Not Reportable Dimorphic RBCs Yes Polychromasia Not Reportable Hypochromasia 1+ Poikilocytosis Not Reportable Anisocytosis 2+ Microcytosis Not Reportable Macrocytosis Not Reportable Spherocytes Not Reportable Pappenheimer Bodies Not Reportable Sickle Cells Not Reportable Target Cells Not Reportable Tear Drop Cells Not Reportable Ovalocytes Not Reportable Helmet Cells Not Reportable David-[place] Bodies Not Reportable [place] Rings Not Reportable Mangum Cells Not Reportable Bite Cells Not Reportable Crenated Cell Not Reportable Elliptocytes Not Reportable Acanthocytes (Spur) Not Reportable Rouleaux Not Reportable Hemoglobin C Crystals Not Reportable Schistocytes Not Reportable Malaria parasites Not Reportable Ric Bodies Not Reportable Hem Pathologist Commnt No ABG pH 7.335 L (7.350-7.450) pH Units ABG pCO2 55.8 mm Hg ABG pO2 46.5 L (80.0-90.0) mm Hg ABG HCO3 29.1 H (20.0-26.0) mmol/L ABG O2 Saturation 78.2 L (95.0-99.0) % ABG O2 Content 11.6 (0.0-44) ABG Base Excess 2.4 (-2.0-3.0) mmol/L ABG Hemoglobin 11.0 L (14.0-18.0) gm/dl ABG Carboxyhemoglobin 3.1 (0.0-5.0) % ABG Methemoglobin 0.8 (0.0-1.5) % Oxyhemoglobin 75.2 L (95.0-99.0) % FiO2 21 % Sodium 139 (137-145) mmol/L Potassium 4.8 (3.6-5.0) mmol/L Chloride 98.4 (98-107) mmol/L Carbon Dioxide 24 (22-30) mmol/L Anion Gap 21 mmol/L BUN 24 H (9-20) mg/dL Creatinine 1.7 H (0.8-1.5) mg/dL Estimated GFR 41 ml/min BUN/Creatinine Ratio 14 % Glucose 98 (75-100) mg/dL Calcium 8.7 (8.4-10.2) mg/dL Troponin T < 0.010 (0.00-0.029) ng/mL - EKG Data -: EKG Interpreted by Hi EKG shows normal: sinus rhythm, ST-T waves (no stemi) Rate: normal (95) - EKG Data When compared to previous EKG there are: no significant change - Radiology Data Radiology results: report reviewed CHEST 1 VIEW INDICATION: cp, sob. COMPARISON: 12/30/2018 FINDINGS: Support devices: None. Heart: Within normal limits. Lungs/Pleura: No acute air space or interstitial disease. Additional findings: None. IMPRESSION: 1. No acute findings. CTA CHEST WITH IV CONTRAST INDICATION: hypoxia copd hx of pe. TECHNIQUE: Axial CT images were obtained through the chest after injection of IV contrast. 3 plane MIP reconstructions were produced. All CT scans at this location are performed using CT dose reduction for ALARA by means of automated exposure control. COMPARISON: CT 11/14/2018 FINDINGS: Pulmonary Arteries: No pulmonary emboli. Thoracic Aorta: No acute abnormality. Heart: Normal. Lungs: Chronic COPD changes are noted. No consolidation is seen. Mild scarring versus atelectasis is noted in the bases, greater on the left. Stable calcified granulomas are noted. Pleura: No pleural effusion. No pneumothorax. Lymph Nodes: No significant adenopathy. Additional Findings: None. Upper Abdomen: No acute findings. Skeletal Structures: No significant osseous abnormality. IMPRESSION: 1. No CT evidence for pulmonary embolism. 2. Chronic COPD changes. No superimposed acute consolidation or pleural effusion. No pneumothorax. - Medical Decision Making With ED treatment wheezing seems to be improving the patient has persistent hypoxia. ABG reveals mild CO2 retention and respiratory acidosis with significant room air hypoxia. Given patient's history of pulmonary embolism a CT angiogram has been ordered to be followed up by the hospitalist. Patient will be admitted to the hospital with COPD exacerbation and hypoxia diagnosis with cta chest pending. Patient had transient hypotension that responded to 1 L normal saline bolus. mild renal sufficiency noted with GFR 41. Plan to perform CT angiogram therefore additional IV fluids provided and patient received a reduced contrast bolus. case d/w Dr Negar Masters informed of cta results neg for pe - Differential Diagnosis COPD, asthma, pneumonia, bronchitis, pulmonary embolus Critical Care Time: No Critical care attestation.: If time is entered above; I have spent that time in minutes in the direct care o f this critically ill patient, excluding procedure time. ED Disposition Clinical Impression: HIV (human immunodeficiency virus infection), COPD exacerbation, Hypoxia Disposition: OP ADMIT IP TO THIS HOSP Is pt being admited?: Yes Condition: Stable Time of Disposition: 21:27 (Dr masters/hosp)
[2019-04-26 20:07] LABS: ABG Base Excess 2.4 mmol/L (-2.0-3.0); ABG HCO3 29.1 mmol/L (20.0-26.0); ABG Methemoglobin 0.8 % (0.0-1.5); ABG Oxygen Saturation 78.2 % (95.0-99.0); ABG PCO2 55.8 mm Hg; ABG PH 7.335 pH Units (7.350-7.450); ABG PO2 46.5 mm Hg (80.0-90.0)
[2019-04-26] MEDS: SODIUM CHLORIDE 0.9% 1000 ML 1,000 ML IV ONE ×2 (22:14→22:16)
--- NOTE | 2019-04-26 22:51 | Cat Scan Report ---
CTA CHEST WITH IV CONTRAST INDICATION: hypoxia copd hx of pe. TECHNIQUE: Axial CT images were obtained through the chest after injection of IV contrast. 3 plane MIP reconstru ctions were produced. All CT scans at this location are performed using CT dose reduction for ALARA b y means of automated exposure control. COMPARISON: CT 11/14/2018 FINDINGS: Pulmonary Arteries: No pulmonary emboli. Thoracic Aorta: No acute abnormality. Heart: Normal. Lungs: Chronic COPD changes are noted. No consolidation is seen. Mild scarring versus atelectasis is noted in the bases, greater on the left. Stable calcified granulomas are noted. Pleura: No pleural effusion. No pneumothorax. Lymph Nodes: No significant adenopathy. Additional Findings: None. Upper Abdomen: No acute findings. Skeletal Structures: No significant osseous abnormality. IMPRESSION: 1. No CT evidence for pulmonary embolism. 2. Chronic COPD changes. No superimposed acute consolidation or pleural effusion. No pneumothorax. Signer Name: Jose Moreno MD Signed: 04/26/2019 10:47 PM Workstation Name: [id number]
[2019-04-26] MEDS ORDERED: NICOTINE 14 MG/24 HR PATCH TD ONE (23:47)
[2019-04-26] MEDS ORDERED: ONDANSETRON 4 MG/2 ML INJ IV PRN (23:47)
[2019-04-26] MEDS ORDERED: ACETAMINOPHEN 325 MG TAB PO PRN (23:47)
--- NOTE | 2019-04-26 23:57 | History and Physical Report ---
History of Present Illness Date of examination: 04/26/19 Chief complaint: SOB History of present illness: 63M with PMH of COPD, HIV, Tobacco dependence,Cocaine use, PE and who is on Eliquis presents with c/o progressive SOB and wheezing in the last few days. He quickly told me that he ran out of his inhaler 3 days ago and that he goes to a [facility] in [place]. He reports increase in phlegm production but denies any high fevers, hemoptysis, hematemesis, rash, orthopnea, PND, Dysuria, syncope, headaches. He was kept in ED for close monitoring and for likely DC but he was SOB and pt did not really improve with bronchodilators. He admits to continued cigarettes smoking of 2-3 per day. Also, upon my further questioning, he revealed that he smoked some Cocaine 2 days ago, "by being stupid". He denies any IV drug use. He says he does not have a pillbox and that he just has his meds on the table and takes what he needs. Past History Past Medical History: COPD, HIV/AIDS, pulmonary embolism Past Surgical History: Other Social history: Lives alone, smoking, full code. denies: IV drug use Family history: hypertension Medications and Allergies Allergies Allergy/AdvReac Type Severity Reaction Status Date / Time No Known Allergies Allergy Verified 04/27/19 00:01 Home Medications Medication Instructions Recorded Confirmed Last Taken Type Triumeq 600-50-300 mg Tablet 1 each DAILY 08/03/18 04/26/19 Unknown History Albuterol Sulfate [Proair 90 mcg IH Q4HR PRN #2 aer.pow.ba 12/10/18 04/26/19 Unknown Rx Respiclick] Apixaban [Eliquis] 5 mg PO BID #60 tablet 12/10/18 04/26/19 Unknown Rx Aspirin [Aspirin BABY CHEW TAB] 81 mg PO QDAY #30 tab.chew 12/10/18 04/26/19 Unknown Rx Ipratropium/Albuterol Sulfate 1 ampul IH Q6HR #120 ampul.neb 12/10/18 04/26/19 Unknown Rx [DUONEB *Not for PRN Use*] Losartan/Hydrochlorothiazide 1 each PO DAILY #30 tablet 12/10/18 04/26/19 Unknown Rx [Losartan-Hctz 50-12.5 mg Tab] Montelukast [Singulair] 10 mg PO QHS #30 tablet 12/10/18 04/26/19 Unknown Rx Active Meds: Active Medications Acetaminophen (Tylenol) 650 mg PO Q4H PRN PRN Reason: Pain MILD(1-3)/Fever >100.5/KOENIG Azithromycin (Zithromax) 500 mg PO QDAY [facility] Budesonide (Pulmicort) 0.5 mg IH Q12HRT [facility] Methylprednisolone Sodium Succinate 60 mg/ Sodium Chloride 100 mls @ 200 mls/hr IV Q6HR NADIA Sodium Chloride (Nacl 0.9% 1000 Ml) 1,000 mls @ 125 mls/hr IV DIRECT NADIA Stop: 04/28/19 07:44 Nicotine (Habitrol) 14 mg TD DAILY ONE Stop: 04/26/19 23:48 Ondansetron HCl (Zofran) 4 mg IV Q8H PRN PRN Reason: Nausea And Vomiting Oxycodone/Acetaminophen (Percocet 5/325) 1 tab PO Q6H PRN PRN Reason: Pain, Moderate (4-6) Sodium Chloride (Sodium Chloride Flush Syringe 10 Ml) 10 ml IV BID NADIA Sodium Chloride (Sodium Chloride Flush Syringe 10 Ml) 10 ml IV PRN PRN PRN Reason: LINE FLUSH Review of Systems All systems: negative Exam - Constitutional Vitals: Temp Pulse Resp BP Pulse Ox 98.6 F 77 25 H 111/71 100 04/26/19 17:05 04/26/19 21:16 04/26/19 21:16 04/26/19 21:16 04/26/19 21:16 General appearance: Present: no acute distress, well-nourished, cachectic, di sheveled - EENT Eyes: Present: PERRL ENT: hearing intact, clear oral mucosa - Neck Neck: Present: supple, normal ROM - Respiratory Respiratory: bilateral: rhonchi - Cardiovascular Heart Sounds: Present: S1 & S2. Absent: rub, click - Extremities Extremities: pulses symmetrical, No edema Peripheral Pulses: within normal limits - Abdominal Male genitourinary: Present: normal - Integumentary Integumentary: Present: clear, warm, dry - Musculoskeletal Musculoskeletal: gait normal, strength equal bilaterally - Psychiatric Psychiatric: appropriate mood/affect, intact judgment & insight - Neurologic Neurologic: CNII-XII intact, moves all extremities SHARIF score - Sharif Score Age > 65: (0) No Aspirin use within the Past 7 Days: (0) No 3 or more CAD Risk Factors: (0) No 2 or more Angina events in past 24 hrs: (0) No Known CAD with more than 50% Stenosis: (0) No Elevated Cardiac Markers: (0) No ST Deviation Greater than 0.5mm: (0) No SHARIF Score: 0 Results - Labs CBC & Chem 7: 04/26/19 15:05 04/26/19 15:05 Labs: Laboratory Last Values WBC 5.7 K/mm3 (4.5-11.0) 04/26/19 15:05 RBC 4.38 M/mm3 (3.65-5.03) 04/26/19 15:05 Hgb 10.8 gm/dl (11.8-15.2) L 04/26/19 15:05 Hct 34.0 % (35.5-45.6) L 04/26/19 15:05 MCV 78 fl (84-94) L 04/26/19 15:05 MCH 25 pg (28-32) L 04/26/19 15:05 MCHC 32 % (32-34) 04/26/19 15:05 RDW 29.9 % (13.2-15.2) H 04/26/19 15:05 Plt Count 344 K/mm3 (140-440) 04/26/19 15:05 Add Manual Diff Complete 04/26/19 15:05 Total Counted 100 04/26/19 15:05 Seg Neuts % (Manual) 84.0 % (40.0-70.0) H 04/26/19 15:05 Band Neutrophils % 0 % 04/26/19 15:05 Lymphocytes % (Manual) 12.0 % (13.4-35.0) L 04/26/19 15:05 Reactive Lymphs % (Man) 0 % 04/26/19 15:05 Monocytes % (Manual) 4.0 % (0.0-7.3) 04/26/19 15:05 Eosinophils % (Manual) 0 % (0.0-4.3) 04/26/19 15:05 Basophils % (Manual) 0 % (0.0-1.8) 04/26/19 15:05 Metamyelocytes % 0 % 04/26/19 15:05 Myelocytes % 0 % 04/26/19 15:05 Promyelocytes % 0 % 04/26/19 15:05 Blast Cells % 0 % 04/26/19 15:05 Nucleated RBC % Not Reportable 04/26/19 15:05 Seg Neutrophils # Man 4.8 K/mm3 (1.8-7.7) 04/26/19 15:05 Band Neutrophils # 0.0 K/mm3 04/26/19 15:05 Lymphocytes # (Manual) 0.7 K/mm3 (1.2-5.4) L 04/26/19 15:05 Abs React Lymphs (Man) 0.0 K/mm3 04/26/19 15:05 Monocytes # (Manual) 0.2 K/mm3 (0.0-0.8) 04/26/19 15:05 Eosinophils # (Manual) 0.0 K/mm3 (0.0-0.4) 04/26/19 15:05 Basophils # (Manual) 0.0 K/mm3 (0.0-0.1) 04/26/19 15:05 Metamyelocytes # 0.0 K/mm3 04/26/19 15:05 Myelocytes # 0.0 K/mm3 04/26/19 15:05 Promyelocytes # 0.0 K/mm3 04/26/19 15:05 Blast Cells # 0.0 K/mm3 04/26/19 15:05 WBC Morphology Not Reportable 04/26/19 15:05 Hypersegmented Neuts Not Reportable 04/26/19 15:05 Hyposegmented Neuts Not Reportable 04/26/19 15:05 Hypogranular Neuts Not Reportable 04/26/19 15:05 Smudge Cells Not Reportable 04/26/19 15:05 Toxic Granulation Not Reportable 04/26/19 15:05 Toxic Vacuolation Not Reportable 04/26/19 15:05 Dohle Bodies Not Reportable 04/26/19 15:05 Pelger-Huet Anomaly Not Reportable 04/26/19 15:05 Ruma Rods Not Reportable 04/26/19 15:05 Platelet Estimate Not Reportable 04/26/19 15:05 Clumped Platelets Not Reportable 04/26/19 15:05 Plt Clumps, EDTA Not Reportable 04/26/19 15:05 Large Platelets Not Reportable 04/26/19 15:05 Giant Platelets Not Reportable 04/26/19 15:05 Platelet Satelliting Not Reportable 04/26/19 15:05 Plt Morphology Comment Not Reportable 04/26/19 15:05 RBC Morphology Not Reportable 04/26/19 15:05 Dimorphic RBCs Yes 04/26/19 15:05 Polychromasia Not Reportable 04/26/19 15:05 Hypochromasia 1+ 04/26/19 15:05 Poikilocytosis Not Reportable 04/26/19 15:05 Anisocytosis 2+ 04/26/19 15:05 Microcytosis Not Reportable 04/26/19 15:05 Macrocytosis Not Reportable 04/26/19 15:05 Spherocytes Not Reportable 04/26/19 15:05 Pappenheimer Bodies Not Reportable 04/26/19 15:05 Sickle Cells Not Reportable 04/26/19 15:05 Target Cells Not Reportable 04/26/19 15:05 Tear Drop Cells Not Reportable 04/26/19 15:05 Ovalocytes Not Reportable 04/26/19 15:05 Helmet Cells Not Reportable 04/26/19 15:05 David-Yah-Ta-Hey Bodies Not Reportable 04/26/19 15:05 [place] Rings Not Reportable 04/26/19 15:05 [place] Cells Not Reportable 04/26/19 15:05 Bite Cells Not Reportable 04/26/19 15:05 Crenated Cell Not Reportable 04/26/19 15:05 Elliptocytes Not Reportable 04/26/19 15:05 Acanthocytes (Spur) Not Reportable 04/26/19 15:05 Rouleaux Not Reportable 04/26/19 15:05 Hemoglobin C Crystals Not Reportable 04/26/19 15:05 Schistocytes Not Reportable 04/26/19 15:05 Malaria parasites Not Reportable 04/26/19 15:05 Ric Bodies Not Reportable 04/26/19 15:05 Hem Pathologist Commnt No 04/26/19 15:05 ABG pH 7.335 pH Units (7.350-7.450) L 04/26/19 20:00 ABG pCO2 55.8 mm Hg 04/26/19 20:00 ABG pO2 46.5 mm Hg (80.0-90.0) L 04/26/19 20:00 ABG HCO3 29.1 mmol/L (20.0-26.0) H 04/26/19 20:00 ABG O2 Saturation 78.2 % (95.0-99.0) L 04/26/19 20:00 ABG O2 Content 11.6 (0.0-44) 04/26/19 20:00 ABG Base Excess 2.4 mmol/L (-2.0-3.0) 04/26/19 20:00 ABG Hemoglobin 11.0 gm/dl (14.0-18.0) L 04/26/19 20:00 ABG Carboxyhemoglobin 3.1 % (0.0-5.0) 04/26/19 20:00 ABG Methemoglobin 0.8 % (0.0-1.5) 04/26/19 20:00 Oxyhemoglobin 75.2 % (95.0-99.0) L 04/26/19 20:00 FiO2 21 % 04/26/19 20:00 Sodium 139 mmol/L (137-145) 04/26/19 15:05 Potassium 4.8 mmol/L (3.6-5.0) 04/26/19 15:05 Chloride 98.4 mmol/L (98-107) 04/26/19 15:05 Carbon Dioxide 24 mmol/L (22-30) 04/26/19 15:05 Anion Gap 21 mmol/L 04/26/19 15:05 BUN 24 mg/dL (9-20) H 04/26/19 15:05 Creatinine 1.7 mg/dL (0.8-1.5) H 04/26/19 15:05 Estimated GFR 41 ml/min 04/26/19 15:05 BUN/Creatinine Ratio 14 % 04/26/19 15:05 Glucose 98 mg/dL (75-100) 04/26/19 15:05 Calcium 8.7 mg/dL (8.4-10.2) 04/26/19 15:05 Troponin T < 0.010 ng/mL (0.00-0.029) 04/26/19 15:05 Assessment and Plan Assessment and plan: Acute HYpoxic Respiratory Failure Due to Acute COPD Exacerbation, likely caused by his recent Cocaine and Tobacco use - GIven Po2 of 46, PE was strongly considered given pt's history of PE and medication nonadherence but CT chest was negative for PE - Continue bronchodilators, steroids, Azithromycin Cocaine USe - pt counseled against any illcit drug use - MOnitor pt for any signs of withdrawal - with self admittance, no need for UDS - Drug program referral needed. Hx of PE - restart Eliquis - pt is unsure if he takes it daily - CT chest done is negative for PE HIV/AIDS - stable - no Age defining illness - continue HAART and pt to follow up with ID Polsubstance Dependence - Cocaine, Tobacco - pt counseled against illicit drug use and urged to quit Tobacco - Nicotine patch ANemia - stable - likely anemia of chronic inflammation CKD - stable renal indices - reassess after IVF Full code Advance Directives: Yes VTE prophylaxis?: Not ordered Reason for no VTE Prophylaxis: Medical contraindication Plan of care discussed with patient/family: Yes
[2019-04-27] MEDS: methylPREDNISolone Sod Suc 60 MG in SODIUM CHLORIDE 0.9% 100 ML IV SCH ×4 (01:54→18:42)
[2019-04-27] MEDS: BUDESONIDE 0.5 MG/2 ML NEBU IH SCH ×3 (02:50→22:14)
[2019-04-27] MEDS: SODIUM CHLORIDE 0.9% 1000 ML 1,000 ML IV SCH ×2 (04:43→14:20)
--- NOTE | 2019-04-27 09:04 | Progress Note ---
Assessment and Plan Assessment and plan: --Acute hypoxic respiratory Failure; Secondary to COPD exacerbation, ABG: PO2 46.5 O2 sats 78.2 room air Oxygen titrate O2 sats more than 90%, BiPAP as needed, nebulizers IV steroids Advised to quit cocaine use, smoking cessation --Hx of PE on Eliquis pt is unsure if he takes it daily CT chest done is negative for PE --Acute kidney injury; vasomotor nephropathy IV hydration, monitor renal function, avoid nephrotoxins Nephrology consult if no improvement --HIV/AIDS continue HAART and pt to follow up with ID/health department Upon discharge --Polsubstance Dependence Cocaine, Tobacco Smoking cessation advised, nicotine patch as needed Patient strongly counseled to quit recreational drug use Patient verbalized understanding --Anemia Monitor closelyTransfuse as needed --Full code Advance Directives: Yes VTE prophylaxis?: Not ordered Reason for no VTE Prophylaxis: Patient on Eliquis Plan of care discussed with patient/family: Yes Plan of care reviewed with the patient and his nurse History Interval history: Patient seen and examined at bedside patient's chart and medical records reviewed Admitted with worsening shortness of breath CTA chest negative for PE Patient complains of shortness of breath Vital signs noted Hospitalist Physical - Constitutional Vitals: Temp Pulse Resp BP Pulse Ox 98.0 F 77 18 102/57 98 04/27/19 04:28 04/27/19 04:28 04/27/19 04:28 04/27/19 04:28 04/27/19 04:28 General appearance: Present: no acute distress, well-nourished - EENT Eyes: Present: PERRL, EOM intact - Neck Neck: Present: supple, normal ROM - Respiratory Respiratory effort: normal Respiratory: bilateral: diminished, rhonchi, negative: rales, wheezing - Cardiovascular Rhythm: regular Heart Sounds: Present: S1 & S2 - Extremities Extremities: no ischemia, No edema - Abdominal General gastrointestinal: soft, non-tender, non-distended, normal bowel sounds - Integumentary Integumentary: Present: clear, warm - Psychiatric Psychiatric: appropriate mood/affect, cooperative - Neurologic Neurologic: CNII-XII intact, moves all extremities SHARIF score - Sharif Score Age > 65: (0) No Aspirin use within the Past 7 Days: (0) No 3 or more CAD Risk Factors: (0) No 2 or more Angina events in past 24 hrs: (0) No Known CAD with more than 50% Stenosis: (0) No Elevated Cardiac Markers: (0) No ST Deviation Greater than 0.5mm: (0) No SHARIF Score: 0 Results - Labs CBC & Chem 7: 04/27/19 08:34 04/27/19 08:34 Labs: Laboratory Last Values WBC 5.7 K/mm3 (4.5-11.0) 04/26/19 15:05 RBC 4.38 M/mm3 (3.65-5.03) 04/26/19 15:05 Hgb 10.8 gm/dl (11.8-15.2) L 04/26/19 15:05 Hct 34.0 % (35.5-45.6) L 04/26/19 15:05 MCV 78 fl (84-94) L 04/26/19 15:05 MCH 25 pg (28-32) L 04/26/19 15:05 MCHC 32 % (32-34) 04/26/19 15:05 RDW 29.9 % (13.2-15.2) H 04/26/19 15:05 Plt Count 344 K/mm3 (140-440) 04/26/19 15:05 Add Manual Diff Complete 04/26/19 15:05 Total Counted 100 04/26/19 15:05 Seg Neuts % (Manual) 84.0 % (40.0-70.0) H 04/26/19 15:05 Band Neutrophils % 0 % 04/26/19 15:05 Lymphocytes % (Manual) 12.0 % (13.4-35.0) L 04/26/19 15:05 Reactive Lymphs % (Man) 0 % 04/26/19 15:05 Monocytes % (Manual) 4.0 % (0.0-7.3) 04/26/19 15:05 Eosinophils % (Manual) 0 % (0.0-4.3) 04/26/19 15:05 Basophils % (Manual) 0 % (0.0-1.8) 04/26/19 15:05 Metamyelocytes % 0 % 04/26/19 15:05 Myelocytes % 0 % 04/26/19 15:05 Promyelocytes % 0 % 04/26/19 15:05 Blast Cells % 0 % 04/26/19 15:05 Nucleated RBC % Not Reportable 04/26/19 15:05 Seg Neutrophils # Man 4.8 K/mm3 (1.8-7.7) 04/26/19 15:05 Band Neutrophils # 0.0 K/mm3 04/26/19 15:05 Lymphocytes # (Manual) 0.7 K/mm3 (1.2-5.4) L 04/26/19 15:05 Abs React Lymphs (Man) 0.0 K/mm3 04/26/19 15:05 Monocytes # (Manual) 0.2 K/mm3 (0.0-0.8) 04/26/19 15:05 Eosinophils # (Manual) 0.0 K/mm3 (0.0-0.4) 04/26/19 15:05 Basophils # (Manual) 0.0 K/mm3 (0.0-0.1) 04/26/19 15:05 Metamyelocytes # 0.0 K/mm3 04/26/19 15:05 Myelocytes # 0.0 K/mm3 04/26/19 15:05 Promyelocytes # 0.0 K/mm3 04/26/19 15:05 Blast Cells # 0.0 K/mm3 04/26/19 15:05 WBC Morphology Not Reportable 04/26/19 15:05 Hypersegmented Neuts Not Reportable 04/26/19 15:05 Hyposegmented Neuts Not Reportable 04/26/19 15:05 Hypogranular Neuts Not Reportable 04/26/19 15:05 Smudge Cells Not Reportable 04/26/19 15:05 Toxic Granulation Not Reportable 04/26/19 15:05 Toxic Vacuolation Not Reportable 04/26/19 15:05 Dohle Bodies Not Reportable 04/26/19 15:05 Pelger-Huet Anomaly Not Reportable 04/26/19 15:05 Ruma Rods Not Reportable 04/26/19 15:05 Platelet Estimate Not Reportable 04/26/19 15:05 Clumped Platelets Not Reportable 04/26/19 15:05 Plt Clumps, EDTA Not Reportable 04/26/19 15:05 Large Platelets Not Reportable 04/26/19 15:05 Giant Platelets Not Reportable 04/26/19 15:05 Platelet Satelliting Not Reportable 04/26/19 15:05 Plt Morphology Comment Not Reportable 04/26/19 15:05 RBC Morphology Not Reportable 04/26/19 15:05 Dimorphic RBCs Yes 04/26/19 15:05 Polychromasia Not Reportable 04/26/19 15:05 Hypochromasia 1+ 04/26/19 15:05 Poikilocytosis Not Reportable 04/26/19 15:05 Anisocytosis 2+ 04/26/19 15:05 Microcytosis Not Reportable 04/26/19 15:05 Macrocytosis Not Reportable 04/26/19 15:05 Spherocytes Not Reportable 04/26/19 15:05 Pappenheimer Bodies Not Reportable 04/26/19 15:05 Sickle Cells Not Reportable 04/26/19 15:05 Target Cells Not Reportable 04/26/19 15:05 Tear Drop Cells Not Reportable 04/26/19 15:05 Ovalocytes Not Reportable 04/26/19 15:05 Helmet Cells Not Reportable 04/26/19 15:05 David-Barnard Bodies Not Reportable 04/26/19 15:05 [place] Rings Not Reportable 04/26/19 15:05 [place] Cells Not Reportable 04/26/19 15:05 Bite Cells Not Reportable 04/26/19 15:05 Crenated Cell Not Reportable 04/26/19 15:05 Elliptocytes Not Reportable 04/26/19 15:05 Acanthocytes (Spur) Not Reportable 04/26/19 15:05 Rouleaux Not Reportable 04/26/19 15:05 Hemoglobin C Crystals Not Reportable 04/26/19 15:05 Schistocytes Not Reportable 04/26/19 15:05 Malaria parasites Not Reportable 04/26/19 15:05 Ric Bodies Not Reportable 04/26/19 15:05 Hem Pathologist Commnt No 04/26/19 15:05 ABG pH 7.335 pH Units (7.350-7.450) L 04/26/19 20:00 ABG pCO2 55.8 mm Hg 04/26/19 20:00 ABG pO2 46.5 mm Hg (80.0-90.0) L 04/26/19 20:00 ABG HCO3 29.1 mmol/L (20.0-26.0) H 04/26/19 20:00 ABG O2 Saturation 78.2 % (95.0-99.0) L 04/26/19 20:00 ABG O2 Content 11.6 (0.0-44) 04/26/19 20:00 ABG Base Excess 2.4 mmol/L (-2.0-3.0) 04/26/19 20:00 ABG Hemoglobin 11.0 gm/dl (14.0-18.0) L 04/26/19 20:00 ABG Carboxyhemoglobin 3.1 % (0.0-5.0) 04/26/19 20:00 ABG Methemoglobin 0.8 % (0.0-1.5) 04/26/19 20:00 Oxyhemoglobin 75.2 % (95.0-99.0) L 04/26/19 20:00 FiO2 21 % 04/26/19 20:00 Sodium 139 mmol/L (137-145) 04/26/19 15:05 Potassium 4.8 mmol/L (3.6-5.0) 04/26/19 15:05 Chloride 98.4 mmol/L (98-107) 04/26/19 15:05 Carbon Dioxide 24 mmol/L (22-30) 04/26/19 15:05 Anion Gap 21 mmol/L 04/26/19 15:05 BUN 24 mg/dL (9-20) H 04/26/19 15:05 Creatinine 1.7 mg/dL (0.8-1.5) H 04/26/19 15:05 Estimated GFR 41 ml/min 04/26/19 15:05 BUN/Creatinine Ratio 14 % 04/26/19 15:05 Glucose 98 mg/dL (75-100) 04/26/19 15:05 Calcium 8.7 mg/dL (8.4-10.2) 04/26/19 15:05 Troponin T < 0.010 ng/mL (0.00-0.029) 04/26/19 15:05 Active Medications - Current Medications Current Medications: Generic Name Dose Route Start Last Admin Trade Name Freq PRN Reason Stop Dose Admin Abacavir Sulfate 600 mg 04/27/19 10:00 Ziagen PO QDAY NADIA Acetaminophen 650 mg 04/26/19 23:47 Tylenol PO Q4H PRN Pain MILD(1-3)/Fever >100.5/KOENIG Apixaban 5 mg 04/27/19 10:00 Eliquis PO BID [facility] Protocol Aspirin 81 mg 04/27/19 10:00 Baby Aspirin PO QDAY [facility] Azithromycin 500 mg 04/27/19 10:00 Zithromax PO QDAY [facility] Budesonide 0.5 mg 04/26/19 23:45 04/27/19 02:50 Pulmicort IH Not Given Q12HRT [facility] Methylprednisolone Sodium 100 mls @ 200 mls/hr 04/27/19 00:00 04/27/19 01:54 Succinate 60 mg/ Sodium IV 200 mls/hr Chloride Q6HR NADIA Administration Sodium Chloride 1,000 mls @ 125 mls/hr 04/26/19 23:45 04/27/19 04:43 Nacl 0.9% 1000 Ml IV 04/28/19 07:44 125 mls/hr DIRECT NADIA Administration Lamivudine 300 mg 04/27/19 10:00 Epivir PO QDAY [facility] Montelukast Sodium 10 mg 04/27/19 22:00 Singulair PO QHS [facility] Ondansetron HCl 4 mg 04/26/19 23:47 Zofran IV Q8H PRN Nausea And Vomiting Oxycodone/Acetaminophen 1 tab 04/26/19 23:47 Percocet 5/325 PO Q6H PRN Pain, Moderate (4-6) Pneumococcal Polyvalent Vaccine 0.5 ml 04/27/19 10:00 Pneumovax 23 IM 04/27/19 10:01 .ONCE ONE Sodium Chloride 10 ml 04/27/19 10:00 Sodium Chloride Flush Syringe 10 Ml IV BID [facility] Sodium Chloride 10 ml 04/26/19 23:47 04/27/19 04:43 Sodium Chloride Flush Syringe 10 Ml IV 10 ml PRN PRN Administration LINE FLUSH
[2019-04-27 09:19] LABS: Calcium 7.7 mg/dL (8.4-10.2)
[2019-04-27 09:25] LABS: Hematocrit 30.3 % (35.5-45.6); Hemoglobin 9.4 gm/dl (11.8-15.2); Mean Corpuscular HGB Conc 31 % (32-34); Mean Corpuscular Volume 78 fl (84-94); Platelet Count 268 K/mm3 (140-440); Red Blood Count 3.87 M/mm3 (3.65-5.03)
[2019-04-27 09:26] LABS: Red Cell Distribution Width 29.8 % (13.2-15.2)
[2019-04-27] MEDS ORDERED: PNEUMOCOCCAL 23 Valent 0.5 ML VIAL IM ONE (10:00)
[2019-04-27] MEDS ORDERED: TRIUMEQ PO SCH (10:00)
[2019-04-27] MEDS ORDERED: FLU VACC QUAD 2019-20 (3 YR UP)/PF 60 MCG/0.5 ML SYRINGE IM ONE (10:00)
[2019-04-27 10:14] LABS: Anisocytosis 2+; Basophils % (Manual) 0 % (0.0-1.8); Eosinophils % (Manual) 0 % (0.0-4.3); Total Cells Counted 100
[2019-04-27 10:15] LABS: Hypochromasia 1+; Platelet Estimate Consistent w Auto
[2019-04-27] MEDS: DOLUTEGRAVIR 50 MG TAB PO SCH (10:54)
[2019-04-27] MEDS: APIXABAN 5 MG TAB PO SCH ×2 (10:55→22:26)
[2019-04-27] MEDS: AZITHROMYCIN 250 MG TAB PO SCH (10:55)
[2019-04-27] MEDS: ABACAVIR 300 MG TAB PO SCH (10:56)
[2019-04-27] MEDS: ASPIRIN 81 MG TAB CHEW PO SCH (10:56)
[2019-04-27] MEDS ORDERED: MONTELUKAST 10 MG TAB PO SCH (22:00)
[2019-04-27] MEDS: oxyCODONE /ACETAMINOPHEN 5-325MG TAB PO PRN (22:26)
[2019-04-28] MEDS: SODIUM CHLORIDE 0.9% 1000 ML 1,000 ML IV SCH (01:40)
[2019-04-28] MEDS: methylPREDNISolone Sod Suc 60 MG in SODIUM CHLORIDE 0.9% 100 ML IV SCH ×5 (01:40→11:20)
[2019-04-28 06:43] LABS: Alanine Aminotransferase 13 units/L (7-56); Albumin 3.2 g/dL (3.9-5); BUN/Creatinine Ratio 20; Blood Urea Nitrogen 22 mg/dL (9-20); Calcium 7.5 mg/dL (8.4-10.2); Hemolysis Index 0
[2019-04-28 06:46] VITALS: BP 145/81
[2019-04-28] MEDS: BUDESONIDE 0.5 MG/2 ML NEBU IH SCH (07:59)
[2019-04-28] MEDS: AZITHROMYCIN 250 MG TAB PO SCH (11:11)
[2019-04-28] MEDS: ASPIRIN 81 MG TAB CHEW PO SCH (11:11)
[2019-04-28] MEDS: APIXABAN 5 MG TAB PO SCH (11:11)
[2019-04-28] MEDS: DOLUTEGRAVIR 50 MG TAB PO SCH (11:12)
[2019-04-28] MEDS: ABACAVIR 300 MG TAB PO SCH (11:12)
[2019-04-28] MEDS: oxyCODONE /ACETAMINOPHEN 5-325MG TAB PO PRN (11:19)
--- NOTE | 2019-04-28 13:01 | Discharge Summary ---
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 Hospitalization Reason for admission: Acute hypoxic respiratory failure, worsening shortness of breath Condition: Stable Pertinent studies: CTA chest; no CT evidence for pulmonary embolism Chronic COPD changes consolidation pleural effusion Chest x-ray; no acute abnormality Hospital course: Very pleasant 63-year-old male patient with significant past medical history of COPD HIV ongoing tobacco cocaine and other recreational drug use history of PE on Eliquis who was admitted through emergency room with worsening shortness of breath of few days duration, Patient also reports that he ran out of his inhalers and other medications.Patient was noted to be in acute hypoxic respiratory failure requiring BiPAP, symptoms slowly but gradually improved CTA chest negative for PE, however patient reports that his physician has requested him to continue anticoagulation as before Today patient is comfortable no new complaints vital signs stable physical examination unremarkable Hemodynamically and clinically stable at discharge Discharge diagnosis: --Acute hypoxic respiratory Failure; Oxygen titrate O2 sats to more than 90%, BiPAP as needed Treat the underlying cause --COPD exacerbation, ABG: PO2 46.5 O2 sats 78.2 room air Oxygen titrate O2 sats more than 90%, BiPAP as needed, nebulizers IV steroids Symptoms significantly improved Room air O2 sats more than 95% --Past Hx of PE;on Eliquis CTA chest done during this admission negative for PE However patient is on Eliquis and reports that his primary care physician advised him to continue --Acute kidney injury; vasomotor nephropathy IV hydration, monitor renal function, avoid nephrotoxins Resolved, continue current management --HIV/AIDS continue HAART and pt to follow up with ID/health department --Polsubstance Dependence; Strongly advised to quit tobacco use and recreational drug use Patient verbalized understanding Cocaine, Tobacco Smoking cessation advised, nicotine patch as needed --Anemia; monitor H&H, Transfuse as needed --Full code Advance Directives: Yes VTE prophylaxis?: Not ordered Reason for no VTE Prophylaxis: Patient on Eliquis Plan of care discussed with patient/family: Yes Patient is stable at discharge Follow-up with nephrology primary care physician ID/health department per schedule Disposition: TO HOME OR SELFCARE Time spent for discharge: 32 min Core Measure Documentation - Palliative Care Palliative Care/ Comfort Measures: Not Applicable - Core Measures Any of the following diagnoses?: none Exam - Constitutional Vitals: Temp Pulse Resp BP Pulse Ox 97.8 F 76 17 145/81 100 04/28/19 05:49 04/28/19 07:59 04/28/19 07:59 04/28/19 05:49 04/28/19 08:00 General appearance: Present: no acute distress, well-nourished - EENT Eyes: Present: PERRL, EOM intact - Neck Neck: Present: supple, normal ROM - Respiratory Respiratory effort: normal Respiratory: bilateral: diminished, negative: rales, rhonchi, wheezing - Cardiovascular Rhythm: regular Heart Sounds: Present: S1 & S2 - Extremities Extremities: no ischemia, No edema - Abdominal General gastrointestinal: Present: soft, non-tender, non-distended, normal bowel sounds - Integumentary Integumentary: Present: clear, warm - Musculoskeletal Musculoskeletal: strength equal bilaterally - Psychiatric Psychiatric: appropriate mood/affect, cooperative - Neurologic Neurologic: moves all extremities Plan Activity: advance as tolerated, fall precautions Diet: regular Additional Instructions: If you have severe shortness of breath or chest pain contact MD or go to emergency room. Follow ID or health department for your HIV needs Follow up with: PRIMARY CARE,MD [Primary Care Provider] - 3-5 Days Prescriptions: Prednisone [predniSONE 10 mg (6-Day Pack, 21 Tabs)] 10 mg PO .TAPER #1 tab.ds.pk Albuterol INH(or & Nicu Only) [ProAir HFA Inhaler] 2 puff IH QID PRN #8.5 gram PRN Reason: Shortness Of Breath Albuterol Sulfate [Proair Respiclick] 90 mcg IH Q4HR PRN #2 aer.[email or web address] PRN Reason: Wheezing Azithromycin [Zithromax Z-MYNOR] 0 mg PO DAILY #1 packet
== END 2019-04-28 19:30 | disposition home or self-care (01) | DRG 682 ==
LOC: ED 13:57 → 3A 23:47
PROVIDERS: ADMIT Hospitalist; ATTEND Internal Medicine
PROC: 4A033R1 Measurement of Arterial Saturation, Peripheral, Percutaneous Approach (ICD-10-PCS; principal; 2019-04-26)
PROC: 3E0234Z Introduction of Serum, Toxoid and Vaccine into Muscle, Percutaneous Approach (ICD-10-PCS; 2019-04-27)
DX: N17.0 Acute kidney failure with tubular necrosis (principal); J96.01 Acute respiratory failure with hypoxia; B20 Human immunodeficiency virus [HIV] disease; J44.1 Chronic obstructive pulmonary disease with (acute) exacerbation; F19.20 Other psychoactive substance dependence, uncomplicated; D64.9 Anemia, unspecified; F17.200 Nicotine dependence, unspecified, uncomplicated; F14.90 Cocaine use, unspecified, uncomplicated; N18.9 Chronic kidney disease, unspecified; I12.9 Hypertensive chronic kidney disease with stage 1 through stage 4 chronic kidney disease, or unspecified chronic kidney disease; G89.29 Other chronic pain; M54.9 Dorsalgia, unspecified; Z86.711 Personal history of pulmonary embolism; Z79.01 Long term (current) use of anticoagulants; Z71.51 Drug abuse counseling and surveillance of drug abuser; Z71.6 Tobacco abuse counseling; Z82.49 Family history of ischemic heart disease and other diseases of the circulatory system; Z79.899 Other long term (current) drug therapy; Z79.82 Long term (current) use of aspirin; Z23 Encounter for immunization
CPT/HCPCS: 36415; 71045; 71275; 80048; 80053; 82803; 84484; 85007; 85025; 87116; 90686; 90732; 93005; 93010; 94640; 94644; 94760; 96365; 96367; 96375; 99406; G0378; J1885; J2930; J3475; J7030; Q9967

== ENCOUNTER 2019-05-08 17:19 | Emergency (ER) | payer SELFPAY ==
[2019-05-08] MEDS ORDERED: HYDROmorphone 1 MG/1 ML INJ IV ONE (19:44)
[2019-05-08] MEDS ORDERED: methylPREDNISolone Sod Succinate 125 MG/2 ML INJ IV ONE (19:44)
[2019-05-08] MEDS ORDERED: ALBUTEROL 2.5 MG/3 ML NEBU IH ONE (19:44)
[2019-05-08] MEDS ORDERED: IPRATROPIUM 0.02% NEBU 2.5 ML IH ONE (19:44)
[2019-05-08] MEDS ORDERED: MAGNESIUM SULFATE 2 GM/50 ML BAG IV ONE (19:44)
--- NOTE | 2019-05-08 19:51 | Emergency Department Report ---
ED Chest Pain HPI - General Chief Complaint: Chest Pain Stated Complaint: CHEST PAIN/SOB Time Seen by Provider: 05/08/19 18:45 Source: patient Mode of arrival: Ambulatory Limitations: No Limitations - History of Present Illness Initial Comments: 63-year-old male with a past medical history of COPD now home oxygen use, hypertension, pulmonary embolism possibly still on Eliquis, HIV denies full- blown AIDS and takes antiretrovirals presents to the hospital planing of chest pain and shortness processes a.m. Patient have admitted in upper sharp intermit tent chest pain worse with inspiration, movement, and palpation. Presence of shortness and wheezing. Patient states he does not have any nebulizers at home despite recent hospital admission and prescriptions provided. I admitted patient April 25 for COPD exacerbation with mild CO2 retention and with a negative CT angiogram for PE at that time. Patient admits to continued smoking but has not smoked in 1 week and last used cocaine 4 days ago. - Related Data Home Medications Medication Instructions Recorded Confirmed Last Taken Triumeq 600-50-300 mg Tablet 1 each DAILY 08/03/18 04/26/19 Unknown Previous Rx's Medication Instructions Recorded Last Taken Type Apixaban [Eliquis] 5 mg PO BID #60 tablet 12/10/18 Unknown Rx Aspirin [Aspirin BABY CHEW TAB] 81 mg PO QDAY #30 tab.chew 12/10/18 Unknown Rx Losartan/Hydrochlorothiazide 1 each PO DAILY #30 tablet 12/10/18 Unknown Rx [Losartan-Hctz 50-12.5 mg Tab] Montelukast [Singulair] 10 mg PO QHS #30 tablet 12/10/18 Unknown Rx Albuterol INH(or & Nicu Only) 2 puff IH QID PRN #8.5 gram 04/28/19 Unknown Rx [ProAir HFA Inhaler] Albuterol Sulfate [Proair 90 mcg IH Q4HR PRN #2 aer.pow.ba 04/28/19 Unknown Rx Respiclick] Azithromycin [Zithromax Z-MYNOR] 0 mg PO DAILY #1 packet 04/28/19 Unknown Rx ALBUTEROL NEB's [Proventil 0.083% 2.5 mg IH TID PRN #60 neb 05/09/19 Unknown Rx NEBS] Ipratropium/Albuterol Sulfate 1 ampul IH Q6HR #120 ampul.neb 05/09/19 Unknown Rx [DUONEB *Not for PRN Use*] Prednisone [predniSONE 10 mg 10 mg PO .TAPER #1 tab.ds.pk 05/09/19 Unknown Rx (6-Day Pack, 21 Tabs)] traMADoL [Ultram 50 MG tab] 50 mg PO Q6HR PRN #14 tablet 05/09/19 Unknown Rx Allergies Allergy/AdvReac Type Severity Reaction Status Date / Time No Known Allergies Allergy Verified 04/27/19 00:01 Heart Score - HEART Score History: Slightly suspicious EKG: Non-specific Age: 45-65 Risk factors: > 3 risk factors or hx of atherosclerotic disease Troponin: < normal limit HEART Score: 4 ED Review of Systems ROS: Stated complaint: CHEST PAIN/SOB Other details as noted in HPI Comment: All other systems reviewed and negative ED Past Medical Hx - Past Medical History Hx Hypertension: Yes Hx CVA: No Hx Heart Attack/AMI: No Hx Congestive Heart Failure: No Hx Diabetes: No Hx Deep Vein Thrombosis: No Hx Pulmonary Embolism: Yes (was on blood thinner at one time pt states taken off them) Hx GERD: No Hx Liver Disease: No Hx Renal Disease: No Hx Sickle Cell Disease: No Hx Arthritis: No Hx Headaches / Migraines: No Hx Seizures: No Hx Kidney Stones: No Hx Psychiatric Treatment: No Hx Asthma: Yes Hx COPD: Yes Hx Tuberculosis: No Hx Dementia: No Hx HIV: No Additional medical history: Elevated Cholesterol & Chronic back pain. - Surgical History Past Surgical History?: No - Social History Smoking Status: Current Every Day Smoker - Medications Home Medications: Home Medications Medication Instructions Recorded Confirmed Last Taken Type Triumeq 600-50-300 mg Tablet 1 each DAILY 08/03/18 04/26/19 Unknown History Apixaban [Eliquis] 5 mg PO BID #60 tablet 12/10/18 04/26/19 Unknown Rx Aspirin [Aspirin BABY CHEW TAB] 81 mg PO QDAY #30 tab.chew 12/10/18 04/26/19 Unknown Rx Losartan/Hydrochlorothiazide 1 each PO DAILY #30 tablet 12/10/18 04/26/19 Unknown Rx [Losartan-Hctz 50-12.5 mg Tab] Montelukast [Singulair] 10 mg PO QHS #30 tablet 12/10/18 04/26/19 Unknown Rx Albuterol INH(or & Nicu Only) 2 puff IH QID PRN #8.5 gram 04/28/19 Unknown Rx [ProAir HFA Inhaler] Albuterol Sulfate [Proair 90 mcg IH Q4HR PRN #2 aer.pow.ba 04/28/19 Unknown Rx Respiclick] Azithromycin [Zithromax Z-MYNOR] 0 mg PO DAILY #1 packet 04/28/19 Unknown Rx ALBUTEROL NEB's [Proventil 0.083% 2.5 mg IH TID PRN #60 neb 05/09/19 Unknown Rx NEBS] Ipratropium/Albuterol Sulfate 1 ampul IH Q6HR #120 ampul.neb 05/09/19 Unknown Rx [DUONEB *Not for PRN Use*] Prednisone [predniSONE 10 mg 10 mg PO .TAPER #1 tab.ds.pk 05/09/19 Unknown Rx (6-Day Pack, 21 Tabs)] traMADoL [Ultram 50 MG tab] 50 mg PO Q6HR PRN #14 tablet 05/09/19 Unknown Rx ED Physical Exam - General Limitations: No Limitations - Other Other exam information: General: No acute distress Head: Atraumatic Eyes: normal appearance ENT: Moist mucous membranes Neck: Normal appearance, no midline tenderness Chest: Bilateral wheezing with mild tachypnea CV: Regular rate and rhythm Abdomen: Soft, normal bowel sounds, nontender, nondistended, no rebound or guarding Back: Normal inspection Extremity: Normal inspection, full range of motion, no calf tenderness or leg edema Neuro: Alert O x 3, no facial asymmetry, speech clear, no gross motor sensory deficit Psych: Appropriate behavior Skin: No rash ED Course Vital Signs 05/08/19 05/08/19 05/08/19 18:27 19:45 19:46 Temperature 99.0 F Pulse Rate 93 H 83 87 Pulse Rate [ Posterior Bilateral Throughout] Respiratory 22 17 16 Rate Respiratory Rate [Posterior Bilateral Throughout] Blood Pressure 152/98 Blood Pressure 131/86 152/98 [Right] O2 Sat by Pulse 93 97 Oximetry 05/08/19 05/08/19 05/08/19 20:20 20:30 21:00 Temperature Pulse Rate 82 75 Pulse Rate [ 82 Posterior Bilateral Throughout] Respiratory 17 20 Rate Respiratory 20 Rate [Posterior Bilateral Throughout] Blood Pressure 152/98 163/95 Blood Pressure [Right] O2 Sat by Pulse 100 100 Oximetry 05/08/19 05/08/19 05/08/19 21:30 21:33 21:50 Temperature Pulse Rate 77 76 Pulse Rate [ 78 Posterior Bilateral Throughout] Respiratory 30 H 20 Rate Respiratory 18 Rate [Posterior Bilateral Throughout] Blood Pressure 133/86 Blood Pressure 133/86 [Right] O2 Sat by Pulse 100 100 Oximetry 05/08/19 05/08/19 05/08/19 22:00 22:36 23:00 Temperature Pulse Rate 80 73 73 Pulse Rate [ Posterior Bilateral Throughout] Respiratory 24 22 24 Rate Respiratory Rate [Posterior Bilateral Throughout] Blood Pressure 147/87 160/97 Blood Pressure 160/97 [Right] O2 Sat by Pulse 91 94 83 L Oximetry 05/08/19 05/08/19 05/09/19 23:30 23:45 00:00 Temperature Pulse Rate 75 77 78 Pulse Rate [ Posterior Bilateral Throughout] Respiratory 27 H 28 H 25 H Rate Respiratory Rate [Posterior Bilateral Throughout] Blood Pressure 145/85 154/88 141/84 Blood Pressure [Right] O2 Sat by Pulse 88 92 92 Oximetry - Reevaluation(s) Reevaluation #1: 05/08/19 22:32 Patient feeling better after Solu-Medrol, magnesium, and hour continuous nebs as well as pain medication. Only complaint currently is being hungry and wanting food second troponin pending SHARIF score - Sharif Score Age > 65: (0) No Aspirin use within the Past 7 Days: (0) No 3 or more CAD Risk Factors: (0) No 2 or more Angina events in past 24 hrs: (0) No Known CAD with more than 50% Stenosis: (0) No Elevated Cardiac Markers: (0) No ST Deviation Greater than 0.5mm: (0) No SHARIF Score: 0 ED Medical Decision Making - Lab Data Result diagrams: 05/08/19 20:01 05/08/19 20:01 Lab Results 05/08/19 05/08/19 05/08/19 Range/Units 20:01 20:01 20:01 WBC 6.2 (4.5-11.0) K/mm3 RBC 4.36 (3.65-5.03) M/mm3 Hgb 11.1 L (11.8-15.2) gm/dl Hct 35.0 L (35.5-45.6) % MCV 80 L (84-94) fl MCH 26 L (28-32) pg MCHC 32 (32-34) % RDW 30.6 H (13.2-15.2) % Plt Count 342 (140-440) K/mm3 Add Manual Diff Complete Total Counted 100 Seg Neuts % (Manual) 74.0 H (40.0-70.0) % Band Neutrophils % 0 % Lymphocytes % (Manual) 17.0 (13.4-35.0) % Reactive Lymphs % (Man) 0 % Monocytes % (Manual) 8.0 H (0.0-7.3) % Eosinophils % (Manual) 1.0 (0.0-4.3) % Basophils % (Manual) 0 (0.0-1.8) % Metamyelocytes % 0 % Myelocytes % 0 % Promyelocytes % 0 % Blast Cells % 0 % Nucleated RBC % Not Reportable Seg Neutrophils # Man 4.6 (1.8-7.7) K/mm3 Band Neutrophils # 0.0 K/mm3 Lymphocytes # (Manual) 1.1 L (1.2-5.4) K/mm3 Abs React Lymphs (Man) 0.0 K/mm3 Monocytes # (Manual) 0.5 (0.0-0.8) K/mm3 Eosinophils # (Manual) 0.1 (0.0-0.4) K/mm3 Basophils # (Manual) 0.0 (0.0-0.1) K/mm3 Metamyelocytes # 0.0 K/mm3 Myelocytes # 0.0 K/mm3 Promyelocytes # 0.0 K/mm3 Blast Cells # 0.0 K/mm3 WBC Morphology Not Reportable Hypersegmented Neuts Not Reportable Hyposegmented Neuts Not Reportable Hypogranular Neuts Not Reportable Smudge Cells Not Reportable Toxic Granulation Not Reportable Toxic Vacuolation Not Reportable Dohle Bodies Not Reportable Pelger-Huet Anomaly Not Reportable Ruma Rods Not Reportable Platelet Estimate Consistent w auto Clumped Platelets Not Reportable Plt Clumps, EDTA Not Reportable Large Platelets Few Giant Platelets Not Reportable Platelet Satelliting Not Reportable Plt Morphology Comment Not Reportable RBC Morphology Not Reportable Dimorphic RBCs Not Reportable Polychromasia Not Reportable Hypochromasia Few Poikilocytosis Not Reportable Anisocytosis 1+ Microcytosis Not Reportable Macrocytosis Not Reportable Spherocytes Not Reportable Pappenheimer Bodies Not Reportable Sickle Cells Not Reportable Target Cells Not Reportable Tear Drop Cells Not Reportable Ovalocytes Not Reportable Helmet Cells Not Reportable David-[place] Bodies Not Reportable [place] Rings Not Reportable Don Cells Not Reportable Bite Cells Not Reportable Crenated Cell Not Reportable Elliptocytes Few Acanthocytes (Spur) Not Reportable Rouleaux Not Reportable Hemoglobin C Crystals Not Reportable Schistocytes Not Reportable Malaria parasites Not Reportable Ric Bodies Not Reportable Hem Pathologist Commnt No PT (12.2-14.9) Sec. INR (0.87-1.13) ABG pH (7.350-7.450) pH Units ABG pCO2 mm Hg ABG pO2 (80.0-90.0) mm Hg ABG HCO3 (20.0-26.0) mmol/L ABG O2 Saturation (95.0-99.0) % ABG O2 Content (0.0-44) ABG Base Excess (-2.0-3.0) mmol/L ABG Hemoglobin (14.0-18.0) gm/dl ABG Carboxyhemoglobin (0.0-5.0) % ABG Methemoglobin (0.0-1.5) % Oxyhemoglobin (95.0-99.0) % FiO2 % Sodium 132 L (137-145) mmol/L Potassium 4.3 (3.6-5.0) mmol/L Chloride 92.4 L (98-107) mmol/L Carbon Dioxide 26 (22-30) mmol/L Anion Gap 18 mmol/L BUN 19 (9-20) mg/dL Creatinine 1.7 H (0.8-1.5) mg/dL Estimated GFR 41 ml/min BUN/Creatinine Ratio 11 % Glucose 96 (75-100) mg/dL Calcium 7.8 L (8.4-10.2) mg/dL Total Bilirubin 0.20 (0.1-1.2) mg/dL AST 20 (5-40) units/L ALT 22 (7-56) units/L Alkaline Phosphatase 89 (35-129) units/L Troponin T < 0.010 (0.00-0.029) ng/mL NT-Pro-B Natriuret Pep 721.5 (0-900) pg/mL Total Protein 8.4 H (6.3-8.2) g/dL Albumin 3.2 L (3.9-5) g/dL Albumin/Globulin Ratio 0.6 % Urine Opiates Screen Urine Methadone Screen Ur Barbiturates Screen Ur Phencyclidine Scrn Ur Amphetamines Screen U Benzodiazepines Scrn Urine Cocaine Screen U Marijuana (THC) Screen Drugs of Abuse Note 05/08/19 05/08/19 05/08/19 Range/Units 20:01 20:12 23:16 WBC (4.5-11.0) K/mm3 RBC (3.65-5.03) M/mm3 Hgb (11.8-15.2) gm/dl Hct (35.5-45.6) % MCV (84-94) fl MCH (28-32) pg MCHC (32-34) % RDW (13.2-15.2) % Plt Count (140-440) K/mm3 Add Manual Diff Total Counted Seg Neuts % (Manual) (40.0-70.0) % Band Neutrophils % % Lymphocytes % (Manual) (13.4-35.0) % Reactive Lymphs % (Man) % Monocytes % (Manual) (0.0-7.3) % Eosinophils % (Manual) (0.0-4.3) % Basophils % (Manual) (0.0-1.8) % Metamyelocytes % % Myelocytes % % Promyelocytes % % Blast Cells % % Nucleated RBC % Seg Neutrophils # Man (1.8-7.7) K/mm3 Band Neutrophils # K/mm3 Lymphocytes # (Manual) (1.2-5.4) K/mm3 Abs React Lymphs (Man) K/mm3 Monocytes # (Manual) (0.0-0.8) K/mm3 Eosinophils # (Manual) (0.0-0.4) K/mm3 Basophils # (Manual) (0.0-0.1) K/mm3 Metamyelocytes # K/mm3 Myelocytes # K/mm3 Promyelocytes # K/mm3 Blast Cells # K/mm3 WBC Morphology Hypersegmented Neuts Hyposegmented Neuts Hypogranular Neuts Smudge Cells Toxic Granulation Toxic Vacuolation Dohle Bodies Pelger-Huet Anomaly Ruma Rods Platelet Estimate Clumped Platelets Plt Clumps, EDTA Large Platelets Giant Platelets Platelet Satelliting Plt Morphology Comment RBC Morphology Dimorphic RBCs Polychromasia Hypochromasia Poikilocytosis Anisocytosis Microcytosis Macrocytosis Spherocytes Pappenheimer Bodies Sickle Cells Target Cells Tear Drop Cells Ovalocytes Helmet Cells David-[place] Bodies [place] Rings Don Cells Bite Cells Crenated Cell Elliptocytes Acanthocytes (Spur) Rouleaux Hemoglobin C Crystals Schistocytes Malaria parasites Ric Bodies Hem Pathologist Commnt PT 13.9 (12.2-14.9) Sec. INR 1.06 (0.87-1.13) ABG pH 7.422 (7.350-7.450) pH Units ABG pCO2 44.8 mm Hg ABG pO2 73.4 L (80.0-90.0) mm Hg ABG HCO3 28.5 H (20.0-26.0) mmol/L ABG O2 Saturation 95.4 (95.0-99.0) % ABG O2 Content 14.8 (0.0-44) ABG Base Excess 3.6 H (-2.0-3.0) mmol/L ABG Hemoglobin 11.3 L (14.0-18.0) gm/dl ABG Carboxyhemoglobin 1.8 (0.0-5.0) % ABG Methemoglobin 0.5 (0.0-1.5) % Oxyhemoglobin 93.1 L (95.0-99.0) % FiO2 21 % Sodium (137-145) mmol/L Potassium (3.6-5.0) mmol/L Chloride (98-107) mmol/L Carbon Dioxide (22-30) mmol/L Anion Gap mmol/L BUN (9-20) mg/dL Creatinine (0.8-1.5) mg/dL Estimated GFR ml/min BUN/Creatinine Ratio % Glucose (75-100) mg/dL Calcium (8.4-10.2) mg/dL Total Bilirubin (0.1-1.2) mg/dL AST (5-40) units/L ALT (7-56) units/L Alkaline Phosphatase (35-129) units/L Troponin T (0.00-0.029) ng/mL NT-Pro-B Natriuret Pep (0-900) pg/mL Total Protein (6.3-8.2) g/dL Albumin (3.9-5) g/dL Albumin/Globulin Ratio % Urine Opiates Screen Presumptive negative Urine Methadone Screen Presumptive negative Ur Barbiturates Screen Presumptive negative Ur Phencyclidine Scrn Presumptive negative Ur Amphetamines Screen Presumptive negative U Benzodiazepines Scrn Presumptive negative Urine Cocaine Screen Presumptive positive U Marijuana (THC) Screen Presumptive negative Drugs of Abuse Note Disclamer 05/08/19 Range/Units 23:21 WBC (4.5-11.0) K/mm3 RBC (3.65-5.03) M/mm3 Hgb (11.8-15.2) gm/dl Hct (35.5-45.6) % MCV (84-94) fl MCH (28-32) pg MCHC (32-34) % RDW (13.2-15.2) % Plt Count (140-440) K/mm3 Add Manual Diff Total Counted Seg Neuts % (Manual) (40.0-70.0) % Band Neutrophils % % Lymphocytes % (Manual) (13.4-35.0) % Reactive Lymphs % (Man) % Monocytes % (Manual) (0.0-7.3) % Eosinophils % (Manual) (0.0-4.3) % Basophils % (Manual) (0.0-1.8) % Metamyelocytes % % Myelocytes % % Promyelocytes % % Blast Cells % % Nucleated RBC % Seg Neutrophils # Man (1.8-7.7) K/mm3 Band Neutrophils # K/mm3 Lymphocytes # (Manual) (1.2-5.4) K/mm3 Abs React Lymphs (Man) K/mm3 Monocytes # (Manual) (0.0-0.8) K/mm3 Eosinophils # (Manual) (0.0-0.4) K/mm3 Basophils # (Manual) (0.0-0.1) K/mm3 Metamyelocytes # K/mm3 Myelocytes # K/mm3 Promyelocytes # K/mm3 Blast Cells # K/mm3 WBC Morphology Hypersegmented Neuts Hyposegmented Neuts Hypogranular Neuts Smudge Cells Toxic Granulation Toxic Vacuolation Dohle Bodies Pelger-Huet Anomaly Ruma Rods Platelet Estimate Clumped Platelets Plt Clumps, EDTA Large Platelets Giant Platelets Platelet Satelliting Plt Morphology Comment RBC Morphology Dimorphic RBCs Polychromasia Hypochromasia Poikilocytosis Anisocytosis Microcytosis Macrocytosis Spherocytes Pappenheimer Bodies Sickle Cells Target Cells Tear Drop Cells Ovalocytes Helmet Cells David-[place] Bodies [place] Rings [place] Cells Bite Cells Crenated Cell Elliptocytes Acanthocytes (Spur) Rouleaux Hemoglobin C Crystals Schistocytes Malaria parasites Ric Bodies Hem Pathologist Commnt PT (12.2-14.9) Sec. INR (0.87-1.13) ABG pH (7.350-7.450) pH Units ABG pCO2 mm Hg ABG pO2 (80.0-90.0) mm Hg ABG HCO3 (20.0-26.0) mmol/L ABG O2 Saturation (95.0-99.0) % ABG O2 Content (0.0-44) ABG Base Excess (-2.0-3.0) mmol/L ABG Hemoglobin (14.0-18.0) gm/dl ABG Carboxyhemoglobin (0.0-5.0) % ABG Methemoglobin (0.0-1.5) % Oxyhemoglobin (95.0-99.0) % FiO2 % Sodium (137-145) mmol/L Potassium (3.6-5.0) mmol/L Chloride (98-107) mmol/L Carbon Dioxide (22-30) mmol/L Anion Gap mmol/L BUN (9-20) mg/dL Creatinine (0.8-1.5) mg/dL Estimated GFR ml/min BUN/Creatinine Ratio % Glucose (75-100) mg/dL Calcium (8.4-10.2) mg/dL Total Bilirubin (0.1-1.2) mg/dL AST (5-40) units/L ALT (7-56) units/L Alkaline Phosphatase (35-129) units/L Troponin T < 0.010 (0.00-0.029) ng/mL NT-Pro-B Natriuret Pep (0-900) pg/mL Total Protein (6.3-8.2) g/dL Albumin (3.9-5) g/dL Albumin/Globulin Ratio % Urine Opiates Screen Urine Methadone Screen Ur Barbiturates Screen Ur Phencyclidine Scrn Ur Amphetamines Screen U Benzodiazepines Scrn Urine Cocaine Screen U Marijuana (THC) Screen Drugs of Abuse Note - EKG Data -: EKG Interpreted by Me EKG shows normal: sinus rhythm - Radiology Data Radiology results: report reviewed CHEST 1 VIEW INDICATION / CLINICAL INFORMATION: Chest Pain. COMPARISON: 04/26/2019 FINDINGS: SUPPORT DEVICES: None. HEART / MEDIASTINUM: No significant abnormality. LUNGS / PLEURA: No significant pulmonary or pleural abnormality.. No pneumothorax. ADDITIONAL FINDINGS: No significant additional findings. IMPRESSION: 1. No significant change. - Medical Decision Making pt feeling better with ED treatment. Patient had a sharp intermittent chest pain with negative CTA performed less than 2 weeks ago. Patient had wheezing on exam suggestive of COPD exacerbation. Symptoms improved with ED treatment. Patient with history of PE in the past and is unsure if he is currently on Eliquis because he cannot recall any of his medications. ABG performed on room air and does not reveal significant hypoxia or CO2 retention compared to recent admission. Patient not require supplemental oxygenation at this time. Once again patient is not using his nebs and states he does not have any. I question patient's compliance with his meds and he is continuing to use cocaine. Troponin negative x2 without acute ischemic findings on EKG. Patient will be discharged home with meds for COPD exacerbation - Differential Diagnosis Costochondritis, PE, COPD, asthma, pneumonia, RI Critical Care Time: No Critical care attestation.: If time is entered above; I have spent that time in minutes in the direct care of this critically ill patient, excluding procedure time. ED Disposition Clinical Impression: COPD exacerbation, HIV (human immunodeficiency virus infection), Cocaine abuse Disposition: DC-01 TO HOME OR SELFCARE Is pt being admited?: No Does the pt Need Aspirin: No Condition: Stable Instructions: Chronic Obstructive Pulmonary Disease (ED), Cocaine Abuse (ED) Additional Instructions: Take the medication as prescribed. Follow-up with your doctor or doctor/clinic provided. Return if symptoms worsen as indicated by your discharge instructions. Prescriptions: Ipratropium/Albuterol Sulfate [DUONEB *Not for PRN Use*] 1 ampul IH Q6HR #120 ampul.neb Prednisone [predniSONE 10 mg (6-Day Pack, 21 Tabs)] 10 mg PO .TAPER #1 tab.ds.pk ALBUTEROL NEB's [Proventil 0.083% NEBS] 2.5 mg IH TID PRN #60 neb PRN Reason: Wheezing traMADoL [Ultram 50 MG tab] 50 mg PO Q6HR PRN #14 tablet PRN Reason: Pain Referrals: PRIMARY CARE,MD [Primary Care Provider] - 3-5 Days FRANCISCO MILLER MD [Staff Physician] - 3-5 Days (Lung specialist) CONY SIMPSON MD [Staff Physician] - 3-5 Days (Primary care doctor) Time of Disposition: 00:28
--- NOTE | 2019-05-08 20:01 | XRay Report ---
CHEST 1 VIEW INDICATION / CLINICAL INFORMATION: Chest Pain. COMPARISON: 04/26/2019 FINDINGS: SUPPORT DEVICES: None. HEART / MEDIASTINUM: No significant abnormality. LUNGS / PLEURA: No significant pulmonary or pleural abnormality.. No pneumothorax. ADDITIONAL FINDINGS: No significant additional findings. IMPRESSION: 1. No significant change. Signer Name: Hugo Gonzalez MD Signed: 05/08/2019 7:56 PM Workstation Name: [id number]
[2019-05-08 20:18] LABS: Hemoglobin 11.1 gm/dl (11.8-15.2); Mean Corpuscular HGB Conc 32 % (32-34); Mean Corpuscular Volume 80 fl (84-94); Platelet Count 342 K/mm3 (140-440); Red Blood Count 4.36 M/mm3 (3.65-5.03)
[2019-05-08 20:19] LABS: Red Cell Distribution Width 30.6 % (13.2-15.2)
[2019-05-08 20:21] LABS: ABG Base Excess 3.6 mmol/L (-2.0-3.0); ABG HCO3 28.5 mmol/L (20.0-26.0); ABG Methemoglobin 0.5 % (0.0-1.5); ABG Oxygen Saturation 95.4 % (95.0-99.0); ABG PCO2 44.8 mm Hg; ABG PH 7.422 pH Units (7.350-7.450); ABG PO2 73.4 mm Hg (80.0-90.0)
[2019-05-08 20:41] LABS: INR 1.06 (0.87-1.13)
[2019-05-08 20:42] LABS: Alanine Aminotransferase 22 units/L (7-56); Albumin 3.2 g/dL (3.9-5); BUN/Creatinine Ratio 11; Blood Urea Nitrogen 19 mg/dL (9-20); Calcium 7.8 mg/dL (8.4-10.2); Hemolysis Index 5
[2019-05-08] MEDS ORDERED: SODIUM CHLORIDE 0.9% 1000 ML 1,000 ML IV ONE (21:15)
[2019-05-08 22:11] LABS: Anisocytosis 1+; Basophils % (Manual) 0 % (0.0-1.8); Hypochromasia Few; Large Platelets Few; Platelet Estimate Consistent w Auto; Total Cells Counted 100
[2019-05-08 23:57] LABS: Amphetamine Screen,Urine PRESUMPTIVE NEGATIVE; Benzodiazepines Screen,Urine PRESUMPTIVE NEGATIVE; Cannabinoid Screen,Urine PRESUMPTIVE NEGATIVE; Methadone Screen,Urine PRESUMPTIVE NEGATIVE; Opiate Screen,Urine PRESUMPTIVE NEGATIVE
[2019-05-08 23:58] LABS: Cocaine Screen,Urine PRESUMPTIVE POSITIVE
[2019-05-09 00:04] VITALS: BP 141/84
== END 2019-05-09 00:46 | disposition home or self-care (01) ==
LOC: ED 17:19
DX: J44.1 Chronic obstructive pulmonary disease with (acute) exacerbation (principal); F14.10 Cocaine abuse, uncomplicated; I10 Essential (primary) hypertension; F17.200 Nicotine dependence, unspecified, uncomplicated; Z79.82 Long term (current) use of aspirin; Z21 Asymptomatic human immunodeficiency virus [HIV] infection status; Z79.899 Other long term (current) drug therapy
CPT/HCPCS: 36415; 71045; 80053; 80307; 82803; 83880; 84484; 85007; 85025; 85610; 93005; 93010; 94644; 96365; 96375; 99284; J1170; J2930; J3475; J7030

== ENCOUNTER 2019-06-29 14:52 | Emergency (ER) | payer SELFPAY ==
[2019-06-29 14:59] VITALS: BP 131/81
--- NOTE | 2019-06-29 15:23 | XRay Report ---
CHEST 2 VIEWS INDICATION: SOB hx of COPD. COMPARISON: 05/13/2019 FINDINGS: Support devices: None. Heart: Within normal limits. Lungs/pleura: Aside from a few scattered calcified granulomata, there is right perihilar interstitial thickening and a small amount of fluid tracking along the minor fissure. The left lung is clear. No pneumothorax. Additional findings: None. IMPRESSION: 1. Pulmonary findings as above. Signer Name: Tanvir Khan MD Signed: 06/29/2019 3:18 PM Workstation Name: [id number]
[2019-06-29 16:24] LABS: Basophils % (Auto) 0.6 % (0.0-1.8); Eosinophils # (Auto) 0.1 K/mm3 (0.0-0.4); Hematocrit 36.3 % (35.5-45.6); Hemoglobin 11.5 gm/dl (11.8-15.2); Lymphocytes # (Auto) 1.2 K/mm3 (1.2-5.4); Lymphocytes % (Auto) 16.3 % (13.4-35.0); Mean Corpuscular HGB Conc 32 % (32-34); Mean Corpuscular Volume 79 fl (84-94); Monocytes % (Auto) 13.5 % (0.0-7.3); Platelet Count 334 K/mm3 (140-440)
[2019-06-29] MEDS ORDERED: ALBUTEROL 2.5 MG/3 ML NEBU IH ONE (16:25)
[2019-06-29] MEDS ORDERED: SODIUM CHLORIDE 0.9% 1000 ML 1,000 ML IV ONE (16:25)
[2019-06-29] MEDS ORDERED: predniSONE 20 MG TAB PO ONE (16:27)
--- NOTE | 2019-06-29 16:27 | Emergency Department Report ---
Minor Respiratory - HPI Chief Complaint: Dyspnea/Respdistress Stated Complaint: RICKY Time Seen by Provider: 06/29/19 16:24 Pain Location: Chest Severity: mild Minor Respiratory: Yes Able to Tolerate Fluids, Yes Shortness of Breath, No Rhinorrhea, No Sore Throat, No Ear Pain, No Cough, No Sick Contacts, No Hemoptysis, No Chest Pain, No Fever Other History: Patient is a 63-year-old male that comes to the emergency room with underlying COPD and complaints of shortness of breath. His sat is 97% in triage. He tells me that he cannot afford his albuterol medications. It is made [place] and the allergies/pollen are aggravating his COPD/asthma. Patient does endorse history of cocaine use 2 days ago. He denies chest pain. He denied to me marijuana use however he told the nurse in triage that he does use marijuana. Patient is off of his HIV medications again due to insurance. He has no recent travel. Patient denies coughing or sputum. He denies fever or chills. He is ambulatory without hypoxia. Although patient is high risk I am not concerned based on his clinical presentation that he has COVID-19. ED Review of Systems ROS: Stated complaint: RICKY Other details as noted in HPI Comment: All other systems reviewed and negative ED Past Medical Hx - Past Medical History Previous Medical History?: Yes Hx Hypertension: Yes Hx CVA: No Hx Heart Attack/AMI: No Hx Congestive Heart Failure: No Hx Diabetes: No Hx Deep Vein Thrombosis: No Hx Pulmonary Embolism: Yes (was on blood thinner at one time pt states taken off them) Hx GERD: No Hx Liver Disease: No Hx Renal Disease: No Hx Sickle Cell Disease: No Hx Arthritis: No Hx Headaches / Migraines: No Hx Seizures: No Hx Kidney Stones: No Hx Psychiatric Treatment: No Hx Asthma: Yes Hx COPD: Yes Hx Tuberculosis: No Hx Dementia: No Hx HIV: No Additional medical history: Elevated Cholesterol & Chronic back pain. - Surgical History Past Surgical History?: No - Family History Family history: no significant - Social History Smoking Status: Current Every Day Smoker Substance Use Type: Cocaine - Medications Home Medications: Home Medications Medication Instructions Recorded Confirmed Last Taken Type Triumeq 600-50-300 mg Tablet 1 each DAILY 08/03/18 04/26/19 Unknown History ALBUTEROL NEB's [Proventil 0.083% 2.5 mg IH TID PRN #30 nebu 06/29/19 Unknown Rx NEBS] Albuterol INH(or & Nicu Only) 2 puff IH QID PRN #8.5 gram 06/29/19 Unknown Rx [ProAir HFA Inhaler] Azithromycin [Zithromax Z-MYNOR] 0 mg PO DAILY #1 packet 06/29/19 Unknown Rx Minor Respiratory Exam - Exam General: Vital signs noted. No distress. Alert and acting appropriately. HEENT: Yes Moist Mucous Membranes, No Pharyngeal Erythema, No Pharyngeal Exud ates, No Rhinorrhea, No Conjuctival Injection, No Frontal Tenderness, No Maxillary Tenderness Ear: Neither TM Bulge, Neither TM Erythema, Neither EAC Pain, Neither EAC Discharge Neck: Yes Supple, No Adenopathy Lungs: Yes Good Air Exchange, Yes Wheezes, No Ronchi, No Stridor, No Cough, No Labored Respirations, No Retractions, No Use of Accessory Muscles, No Other Abnormal Lung Sounds Heart: Yes Regular, No Murmur Abdomen: Yes Normal Bowel Sounds, No Tenderness, No Peritoneal Signs Skin: No Rash, No Edema Neurologic: Alert and oriented, no deficits. Musculoskeletal: Unremarkable. ED Course Vital Signs 06/29/19 14:56 Temperature 98.1 F Pulse Rate 73 Respiratory 24 Rate Blood Pressure 131/81 O2 Sat by Pulse 95 Oximetry ED Medical Decision Making - Lab Data Result diagrams: 06/29/19 15:39 06/29/19 15:39 - EKG Data -: EKG Interpreted by Ar EKG shows normal: sinus rhythm - EKG Data Interpretation: no acute changes - Radiology Data Radiology results: report reviewed, image reviewed - Medical Decision Making Vital Signs 06/29/19 14:56 Temperature 98.1 F Pulse Rate 73 Respiratory 24 Rate Blood Pressure 131/81 O2 Sat by Pulse 95 Oximetry Labs 06/29/19 06/29/19 15:39 15:39 WBC 7.6 RBC 4.60 Hgb 11.5 L Hct 36.3 MCV 79 L MCH 25 L MCHC 32 RDW 22.5 H Plt Count 334 Lymph % (Auto) 16.3 [place] % (Auto) 13.5 H Eos % (Auto) 1.0 Baso % (Auto) 0.6 Lymph # 1.2 [place] # 1.0 H Eos # 0.1 Baso # 0.0 Seg Neutrophils % 68.6 Seg Neutrophils # 5.2 Sodium 142 Potassium 4.4 Chloride 102.2 Carbon Dioxide 29 Anion Gap 15 BUN 12 Creatinine 1.5 Estimated GFR 47 BUN/Creatinine Ratio 8 Glucose 82 Calcium 7.5 L Total Bilirubin 0.20 AST 12 ALT 9 Alkaline Phosphatase 65 Total Protein 7.9 Albumin 3.3 L Albumin/Globulin Ratio 0.7 Vital Signs 06/29/19 14:56 Temperature 98.1 F Pulse Rate 73 Respiratory 24 Rate Blood Pressure 131/81 O2 Sat by Pulse 95 Oximetry Labs noted. X-ray noted. Twelve-lead EKG noted. Troponin negative. Patient medicated in the emergency room with DuoNeb, normal saline, prednisone and azithromycin. I have educated patient about the importance of following up with his primary care and/or the [place] [facility] given his HIV and high risk for COVID. Patient verbalizes understanding. He is also been given local referrals. He has been given good Rx and prescription discount codes. Patient is nontoxic, ambulatory and taking p.o. in the ER. Patient being discharged home with follow-up plan. - Differential Diagnosis Rule out pneumonia: COPD exacerbation with or without infection Critical care attestation.: If time is entered above; I have spent that time in minutes in the direct care of this critically ill patient, excluding procedure time. ED Disposition Clinical Impression: COPD exacerbation, HIV (human immunodeficiency virus infection), URTI (acute upper respiratory infection), Non-adherence to medical treatment, Substance abuse Disposition: - TO HOME OR SELFCARE Is pt being admited?: No Does the pt Need Aspirin: No Condition: Stable Instructions: Chronic Obstructive Pulmonary Disease (ED) Additional Instructions: DIET AND ACTIVITY TOLERATED AVOID DRUGS/CIG AND ALCOHOL MEDS ORDERED TODAY FOLLOW UP WITH PCP AND PATERSON ID CLINIC REFERRALS BELOW Prescriptions: Albuterol INH(or & Nicu Only) [ProAir HFA Inhaler] 2 puff IH QID PRN #8.5 gram PRN Reason: Shortness Of Breath ALBUTEROL NEB's [Proventil 0.083% NEBS] 2.5 mg IH TID PRN #30 nebu PRN Reason: Wheezing Azithromycin [Zithromax Z-MYNOR] 0 mg PO DAILY #1 packet Referrals: CONY SIMPSON MD [Staff Physician] - 3-5 Days [facility] [Outside] - 3-5 Days Time of Disposition: 16:48
[2019-06-29 16:29] LABS: Red Cell Distribution Width 22.5 % (13.2-15.2)
[2019-06-29 16:42] LABS: Albumin 3.3 g/dL (3.9-5); Calcium 7.5 mg/dL (8.4-10.2)
[2019-06-29] MEDS ORDERED: AZITHROMYCIN 500 MG in SODIUM CHLORIDE 0.9% 250ML 250 ML IV ONE (17:00)
== END 2019-06-29 18:45 | disposition home or self-care (01) ==
LOC: ED 14:52
DX: J44.9 Chronic obstructive pulmonary disease, unspecified (principal); J06.9 Acute upper respiratory infection, unspecified; F19.10 Other psychoactive substance abuse, uncomplicated; I10 Essential (primary) hypertension; F17.200 Nicotine dependence, unspecified, uncomplicated; F12.10 Cannabis abuse, uncomplicated; Z21 Asymptomatic human immunodeficiency virus [HIV] infection status; Z91.19 Patient's noncompliance with other medical treatment and regimen; Z79.899 Other long term (current) drug therapy
CPT/HCPCS: 36415; 71046; 80053; 84484; 85025; 93005; 94640; 96365; 99284; J0456; J7030; J7050; J7512

== ENCOUNTER 2019-07-12 04:56 | Emergency (ER) | payer SELFPAY ==
--- NOTE | 2019-07-12 05:10 | Emergency Department Report ---
ED Shortness of Breath HPI - General Stated Complaint: RICKY Time Seen by Provider: 07/12/19 05:10 - History of Present Illness Initial Comments: 63-year-old male no acute distress nontoxic in appearance well-known to this emergency room and just left yesterday for difficulty breathing. Patient reports back to the emergency room this morning for the same complaint. Patient reports he has not got his prescriptions filled for his medication. Patient has been seen here 3 times this month for the same complaints. Patient has not followed up with any primary care provider. Patient has a past medical history of asthma and HIV and currently on no medication. Patient denies any fever chills nausea vomiting no chest pain. -: During the night Known History Of: COPD, asthma, HIV Associated Symptoms: denies other symptoms Treatments Prior to Arrival: none - Related Data Home Oxygen Therapy: No Home Medications Medication Instructions Recorded Confirmed Last Taken Triumeq 600-50-300 mg Tablet 1 each DAILY 08/03/18 04/26/19 Unknown Previous Rx's Medication Instructions Recorded Last Taken Type ALBUTEROL NEB's [Proventil 0.083% 2.5 mg IH TID PRN #30 nebu 06/29/19 Unknown Rx NEBS] Albuterol INH(or & Nicu Only) 2 puff IH QID PRN #8.5 gram 06/29/19 Unknown Rx [ProAir HFA Inhaler] Azithromycin [Zithromax Z-MYNOR] 0 mg PO DAILY #1 packet 06/29/19 Unknown Rx Albuterol Sulfate [Proventil Hfa] 2 puff IH Q4HR PRN #1 hfa.aer.ad 07/05/19 Unkn own Rx predniSONE [Deltasone] 50 mg PO QDAY #5 tab 07/05/19 Unknown Rx Albuterol Sulfate [Albuterol 0.63% 0.63 mg IH TID PRN #1 box 07/11/19 Unknown Rx NEBS] Allergies Allergy/AdvReac Type Severity Reaction Status Date / Time No Known Allergies Allergy Verified 04/27/19 00:01 ED Review of Systems ROS: Stated complaint: RICKY Other details as noted in HPI Comment: All other systems reviewed and negative ED Past Medical Hx - Past Medical History Hx Hypertension: Yes Hx CVA: No Hx Heart Attack/AMI: No Hx Congestive Heart Failure: No Hx Diabetes: No Hx Deep Vein Thrombosis: No Hx Pulmonary Embolism: Yes (was on blood thinner at one time pt states taken off them) Hx GERD: No Hx Liver Disease: No Hx Renal Disease: No Hx Sickle Cell Disease: No Hx Arthritis: No Hx Headaches / Migraines: No Hx Seizures: No Hx Kidney Stones: No Hx Psychiatric Treatment: No Hx Asthma: Yes Hx COPD: Yes Hx Tuberculosis: No Hx Dementia: No Hx HIV: No Additional medical history: Elevated Cholesterol & Chronic back pain. - Social History Smoking Status: Former Smoker Substance Use Type: None - Medications Home Medications: Home Medications Medication Instructions Recorded Confirmed Last Taken Type Triumeq 600-50-300 mg Tablet 1 each DAILY 08/03/18 04/26/19 Unknown History ALBUTEROL NEB's [Proventil 0.083% 2.5 mg IH TID PRN #30 nebu 06/29/19 Unknown Rx NEBS] Albuterol INH(or & Nicu Only) 2 puff IH QID PRN #8.5 gram 06/29/19 Unknown Rx [ProAir HFA Inhaler] Azithromycin [Zithromax Z-MYNOR] 0 mg PO DAILY #1 packet 06/29/19 Unknown Rx Albuterol Sulfate [Proventil Hfa] 2 puff IH Q4HR PRN #1 hfa.aer.ad 07/05/19 Unknown Rx predniSONE [Deltasone] 50 mg PO QDAY #5 tab 07/05/19 Unknown Rx Albuterol Sulfate [Albuterol 0.63% 0.63 mg IH TID PRN #1 box 07/11/19 Unknown R x NEBS] ED Physical Exam - General General appearance: alert, in no apparent distress - Head Head exam: Present: atraumatic, normocephalic - Eye Eye exam: Present: normal appearance - ENT ENT exam: Present: mucous membranes moist - Neck Neck exam: Present: normal inspection - Respiratory Respiratory exam: Present: normal lung sounds bilaterally, accessory muscle use. Absent: respiratory distress - Cardiovascular Cardiovascular Exam: Present: regular rate, normal rhythm. Absent: systolic murmur, diastolic murmur, rubs, gallop - GI/Abdominal GI/Abdominal exam: Present: soft, normal bowel sounds - Rectal Rectal exam: Present: deferred - Extremities Exam Extremities exam: Present: normal inspection - Back Exam Back exam: Present: normal inspection - Neurological Exam Neurological exam: Present: alert, oriented X3 - Psychiatric Psychiatric exam: Present: normal affect, normal mood - Skin Skin exam: Present: warm, dry, intact, normal color. Absent: rash ED Course Vital Signs 07/12/19 05:22 Pulse Rate [ 79 Anterior Bilateral Throughout] Respiratory 18 Rate [Anterior Bilateral Throughout] ED Medical Decision Making - Medical Decision Making 63-year-old male no acute distress nontoxic in appearance well-known to this emergency room and just left yesterday for difficulty breathing. Patient reports back to the emergency room this morning for the same complaint. Patient reports he has not got his prescriptions filled for his medication. Patient has been seen here 3 times this month for the same complaints. Patient has not followed up with any primary care provider. Patient has a past medical history of asthma and HIV and currently on no medication. Patient denies any fever chills nausea vomiting no chest pain. Albuterol 5 mg inhalation has been ordered. Critical care attestation.: If time is entered above; I have spent that time in minutes in the direct care of this critically ill patient, excluding procedure time. ED Disposition Clinical Impression: Non-adherence to medical treatment, SOB (shortness of breath), Asthma Disposition: DC-01 TO HOME OR SELFCARE Is pt being admited?: No Does the pt Need Aspirin: No Condition: Stable Instructions: Asthma (ED) Additional Instructions: Please fill your prescription that was given to you yesterday. Referrals: CONY SIMPSON MD [Staff Physician] - 3-5 Days
[2019-07-12] MEDS ORDERED: ALBUTEROL 2.5 MG/3 ML NEBU IH ONE (05:13)
== END 2019-07-12 06:53 | disposition home or self-care (01) ==
LOC: ED 04:56
DX: J45.909 Unspecified asthma, uncomplicated (principal); Z91.19 Patient's noncompliance with other medical treatment and regimen; I10 Essential (primary) hypertension
CPT/HCPCS: 94640; 94644; 99283

== ENCOUNTER 2019-07-17 01:51 | Observation (INO) | payer SELFPAY ==
[2019-07-17] MEDS ORDERED: ASPIRIN 325 MG TAB PO ONE (02:26)
--- NOTE | 2019-07-17 02:51 | XRay Report ---
CHEST 1 VIEW, 07/17/2019 2:50 AM CLINICAL INFORMATION/INDICATION: Chest pain COMPARISON: Chest radiograph, 07/11/2019 FINDINGS: SUPPORT DEVICES: None. HEART: The cardiac silhouette is normal in size. LUNGS/PLEURA: The lungs are hyperexpanded but appear clear of focal airspace disease or significant p leural effusion. Few small scattered calcified granulomas are noted within the right upper lobe. ADDITIONAL FINDINGS: No additional acute findings. IMPRESSION: 1. No evidence of acute cardiopulmonary process. Signer Name: Jodee Tran MD Signed: 07/17/2019 2:46 AM Workstation Name: [id number]
[2019-07-17] MEDS ORDERED: MAGNESIUM SULFATE 2 GM/50 ML BAG IV ONE (03:44)
[2019-07-17] MEDS ORDERED: ALBUTEROL 2.5 MG/3 ML NEBU IH ONE (03:44)
[2019-07-17] MEDS ORDERED: methylPREDNISolone Sod Succinate 125 MG/2 ML INJ IV ONE (03:44)
[2019-07-17] MEDS ORDERED: IPRATROPIUM 0.02% NEBU 2.5 ML IH ONE (03:44)
--- NOTE | 2019-07-17 03:46 | Emergency Department Report ---
ED Chest Pain HPI - General Chief Complaint: Chest Pain Stated Complaint: CHEST PAIN/RICKY PUI?: No Time Seen by Provider: 07/17/19 03:43 Source: patient Mode of arrival: Ambulatory Limitations: No Limitations - History of Present Illness Initial Comments: Patient is a 63-year-old male that presents emergency room with complaints of chest pain, shortness of breath and dizziness. Patient states his chest pain or shortness of breath started approximately 2 hours ago. Patient states his chest pain shortness breath worse with exertion better with rest. Patient states he is having difficulty breathing. Patient is a history of HIV, COPD and hypertension. They states he is a former smoker. Patient states that is brought in by EMS. Patient denies fever and chills. Patient denies cough. Patient denies recent travel. Patient denies recent international travel. Patient denies exposure to the novel coronavirus. Patient denies sick contacts. Patient denies fever and chills. Patient denies cough. Patient denies krut rrhea. Patient denies coming in contact with anybody with symptoms of the novel coronavirus. MD Complaint: chest pain -: Sudden Onset: during rest Pain Location: substernal Severity: moderate Severity scale (0 -10): 6 Quality: tightness, heaviness, pressure Consistency: constant Improves With: rest Worsens With: exertion, movement re: dyspnea. denies: nausea, vomting, diaphoresis, sense of impending doom Other Symptoms: cough. denies: fever, syncope, rash, acid taste in mouth, leg swelling, palpitations, burping Treatments Prior to Arrival: none Aspirin use within the Past 7 Days: (0) No - Related Data On Oral Contraceptives: No Home Medications Medication Instructions Recorded Confirmed Last Taken Triumeq 600-50-300 mg Tablet 1 each DAILY 08/03/18 04/26/19 Unknown Previous Rx's Medication Instructions Recorded Last Taken Type ALBUTEROL NEB's [Proventil 0.083% 2.5 mg IH TID PRN #30 nebu 06/29/19 Unknown Rx NEBS] Albuterol INH(or & Nicu Only) 2 puff IH QID PRN #8.5 gram 06/29/19 Unknown Rx [ProAir HFA Inhaler] Azithromycin [Zithromax Z-MYNOR] 0 mg PO DAILY #1 packet 06/29/19 Unknown Rx Albuterol Sulfate [Proventil Hfa] 2 puff IH Q4HR PRN #1 hfa.aer.ad 07/05/19 Unknown Rx predniSONE [Deltasone] 50 mg PO QDAY #5 tab 07/05/19 Unknown Rx Albuterol Sulfate [Albuterol 0.63% 0.63 mg IH TID PRN #1 box 07/11/19 Unknown Rx NEBS] Allergies Allergy/AdvReac Type Severity Reaction Status Date / Time No Known Allergies Allergy Verified 04/27/19 00:01 Heart Score - HEART Score History: Slightly suspicious EKG: Normal Age: 45-65 Risk factors: 1-2 risk factors Troponin: < normal limit HEART Score: 2 ED Review of Systems ROS: Stated complaint: CHEST PAIN/RICKY Other details as noted in HPI Constitutional: denies: chills, fever Eyes: denies: eye pain, eye discharge, vision change ENT: denies: ear pain, throat pain Respiratory: cough, shortness of breath. denies: wheezing Cardiovascular: chest pain. denies: palpitations Endocrine: no symptoms reported Gastrointestinal: denies: abdominal pain, nausea, diarrhea Genitourinary: denies: urgency, dysuria Musculoskeletal: denies: back pain, joint swelling, arthralgia Skin: denies: rash, lesions Neurological: denies: headache, weakness, paresthesias Psychiatric: denies: anxiety, depression Hematological/Lymphatic: denies: easy bleeding, easy bruising ED Past Medical Hx - Past Medical History Previous Medical History?: Yes Hx Hypertension: Yes Hx CVA: No Hx Heart Attack/AMI: No Hx Congestive Heart Failure: No Hx Diabetes: No Hx Deep Vein Thrombosis: No Hx Pulmonary Embolism: Yes (was on blood thinner at one time pt states taken off them) Hx GERD: No Hx Liver Disease: No Hx Renal Disease: No Hx Sickle Cell Disease: No Hx Arthritis: No Hx Headaches / Migraines: No Hx Seizures: No Hx Kidney Stones: No Hx Psychiatric Treatment: No Hx Asthma: Yes Hx COPD: Yes Hx Tuberculosis: No Hx Dementia: No Hx HIV: Yes Additional medical history: Elevated Cholesterol & Chronic back pain. - Surgical History Past Surgical History?: Yes - Family History Family history: no significant - Social History Smoking Status: Former Smoker Substance Use Type: None - Medications Home Medications: Home Medications Medication Instructions Recorded Confirmed Last Taken Type Triumeq 600-50-300 mg Tablet 1 each DAILY 08/03/18 04/26/19 Unknown History ALBUTEROL NEB's [Proventil 0.083% 2.5 mg IH TID PRN #30 nebu 06/29/19 Unknown Rx NEBS] Albuterol INH(or & Nicu Only) 2 puff IH QID PRN #8.5 gram 06/29/19 Unknown Rx [ProAir HFA Inhaler] Azithromycin [Zithromax Z-MYNOR] 0 mg PO DAILY #1 packet 06/29/19 Unknown Rx Albuterol Sulfate [Proventil Hfa] 2 puff IH Q4HR PRN #1 hfa.aer.ad 07/05/19 Unknown Rx predniSONE [Deltasone] 50 mg PO QDAY #5 tab 07/05/19 Unknown Rx Albuterol Sulfate [Albuterol 0.63% 0.63 mg IH TID PRN #1 box 07/11/19 Unknown Rx NEBS] ED Physical Exam - General Limitations: No Limitations General appearance: alert, in no apparent distress - Head Head exam: Present: atraumatic, normocephalic - Eye Eye exam: Present: normal appearance - ENT ENT exam: Present: mucous membranes moist - Neck Neck exam: Present: normal inspection - Respiratory Respiratory exam: Present: wheezes, chest wall tenderness, decreased breath sounds. Absent: respiratory distress - Cardiovascular Cardiovascular Exam: Present: regular rate, normal rhythm. Absent: systolic murmur, diastolic murmur, rubs, gallop - GI/Abdominal GI/Abdominal exam: Present: soft, normal bowel sounds - Rectal Rectal exam: Present: deferred - Extremities Exam Extremities exam: Present: normal inspection - Back Exam Back exam: Present: normal inspection - Neurological Exam Neurological exam: Present: alert, oriented X3 - Psychiatric Psychiatric exam: Present: normal affect, normal mood - Skin Skin exam: Present: warm, dry, intact, normal color. Absent: rash ED Course Vital Signs 07/17/19 07/17/19 07/17/19 02:17 02:25 03:55 Temperature 98.1 F 97.9 F Pulse Rate 72 73 Respiratory 18 24 Rate Blood Pressure 154/96 Blood Pressure 187/116 [Left] O2 Sat by Pulse 96 100 Oximetry - Reevaluation(s) Reevaluation #1: Patient's lung sounds are improved. Patient states he is feeling better. Patient states the chest pain has improved. Patient states shortness of breath is improved. 07/17/19 04:24 Reevaluation #2: I discussed all results with patient. I discussed plan of care with patient. Patient agrees with plan of care and admission. Patient to be admitted to the hospitalist service. 07/17/19 05:24 - Consultations Consultation #1: Hospitalist consulted for admission. Hospitalist to admit patient. 07/17/19 05:05 SHARIF score - Sharif Score Age > 65: (0) No Aspirin use within the Past 7 Days: (0) No 3 or more CAD Risk Factors: (0) No 2 or more Angina events in past 24 hrs: (0) No Known CAD with more than 50% Stenosis: (0) No Elevated Cardiac Markers: (0) No ST Deviation Greater than 0.5mm: (0) No SHARIF Score: 0 ED Medical Decision Making - Lab Data Result diagrams: 07/17/19 03:08 07/17/19 03:08 - EKG Data -: EKG Interpreted by Tx EKG shows normal: sinus rhythm, axis, intervals, QRS complexes, ST-T waves Rate: normal - Radiology Data Radiology results: report reviewed, image reviewed CHEST 1 VIEW, 07/17/2019 2:50 AM CLINICAL INFORMATION/INDICATION: Chest pain COMPARISON: Chest radiograph, 07/11/2019 FINDINGS: SUPPORT DEVICES: None. HEART: The cardiac silhouette is normal in size. LUNGS/PLEURA: The lungs are hyperexpanded but appear clear of focal airspace disease or significant pleural effusion. Few small scattered calcified granulomas are noted within the right upper lobe. ADDITIONAL FINDINGS: No additional acute findings. IMPRESSION: 1. No evidence of acute cardiopulmonary process. - Medical Decision Making Patient is a 63-year-old male that presents emergency room with complaints of shortness of breath and chest pain. Patient found to be hypoxic and placed on oxygen. Patient's lung sounds are abnormal and found to have wheezing and increased work to breathe. Patient given Solu-Medrol, magnesium, DuoNeb and patient's lung sounds and work to breathe improved. Patient's oxygen also improved with treatment and nasal cannula oxygen. Patient's chest x-ray is ne gative for acute findings. Patient's labs are essentially unremarkable. Patient EKG shows no acute findings. Patient admitted to the hospitalist service for further evaluation and treatment. Patient clinical findings are consistent with a COPD exacerbation and hypoxia. - Differential Diagnosis COPD exacerbation, chest pain, shortness of breath, hypoxia. Pneumonia Critical Care Time: Yes Critical care time in (mins) excluding proc time.: 35 Critical care attestation.: If time is entered above; I have spent that time in minutes in the direct care of this critically ill patient, excluding procedure time. Critical Care Time: 35 minutes ED Disposition Clinical Impression: COPD exacerbation, Hypoxia, SOB (shortness of breath) Asthma with acute exacerbation Qualifiers: Asthma severity: severe Asthma persistence: unspecified Qualified Code(s): J45.901 - Unspecified asthma with (acute) exacerbation Chest pain Qualifiers: Chest pain type: unspecified Qualified Code(s): R07.9 - Chest pain, unspecified Disposition: DC-09 OP ADMIT IP TO THIS HOSP Is pt being admited?: Yes Does the pt Need Aspirin: No Condition: Critical Time of Disposition: 05:05
[2019-07-17 03:48] LABS: Basophils % (Auto) 0.5 % (0.0-1.8); Eosinophils # (Auto) 0.1 K/mm3 (0.0-0.4); Eosinophils % (Auto) 1.3 % (0.0-4.3); Hematocrit 37.9 % (35.5-45.6); Lymphocytes # (Auto) 1.2 K/mm3 (1.2-5.4); Lymphocytes % (Auto) 15.7 % (13.4-35.0); Mean Corpuscular HGB Conc 32 % (32-34); Mean Corpuscular Volume 78 fl (84-94); Monocytes # (Auto) 0.9 K/mm3 (0.0-0.8); Monocytes % (Auto) 12.3 % (0.0-7.3); Platelet Count 283 K/mm3 (140-440); Red Blood Count 4.84 M/mm3 (3.65-5.03)
[2019-07-17 04:00] LABS: BUN/Creatinine Ratio 18; Blood Urea Nitrogen 23 mg/dL (9-20); Calcium 8.2 mg/dL (8.4-10.2); Hemolysis Index 2
[2019-07-17 04:16] LABS: Red Cell Distribution Width 21.1 % (13.2-15.2)
[2019-07-17] MEDS ORDERED: ONDANSETRON 4 MG/2 ML INJ IV PRN (05:52)
--- NOTE | 2019-07-17 05:58 | History and Physical Report ---
History of Present Illness History of present illness: 63-year-old man with a history of HIV, COPD, hypertension, hyperlipidemia comes emergency room for evaluation. He complaints of shortness of breath, wheezing to started today, symptoms not relieved with his nebulizer treatment. Also stated that at the same time he developed chest pain in the anterior chest which he describes a sharp pain, intermittent every 2 minutes, intensity 4/10, no radiation. Denies nausea vomiting, diaphoresis or palpitation. He had a stress test last year. The patient will be admitted for COPD exacerbation, chest pain Review Of Systems: Constitutional: no weight loss, fever, chills Ears, eyes, nose, mouth and throat: no nasal congestion, no nasal discharge, no sinus pressure, blurry vision, diplopia Neck: No neck pain or rigidity. Cardiovascular: No palpitations, chest pain Respiratory: No cough Gastrointestinal: No hematochezia Genitourinary : no dysuria, frequency Musculoskeletal: no muscle ache , joint pain Integumentary: no rash, no pruritis Neurological: no parathesias, focal weakness Endocrine: no cold or heat intolerance, no polyuria or polydipsia Hematologic/Lymphatic: no easy bruising, no easy bleeding, no gland swelling Allergic/Immunologic: no urticaria, no angioedema. PAST MEDICAL HISTORY: HIV, COPD, hypertension, hyperlipidemia PAST SURGICAL HISTORY: None SOCIAL HISTORY: Denies alcohol, tobacco, drugs FAMILY HISTORY: Hypertension l Medications and Allergies Allergies Allergy/AdvReac Type Severity Reaction Status Date / Time No Known Allergies Allergy Verified 04/27/19 00:01 Home Medications Medication Instructions Recorded Confirmed Last Taken Type Triumeq 600-50-300 mg Tablet 1 each DAILY 08/03/18 07/17/19 06/17/19 History ALBUTEROL NEB's [Proventil 0.083% 2.5 mg IH TID PRN #30 nebu 06/29/19 07/17/19 07/14/19 Rx NEBS] Albuterol INH(or & Nicu Only) 2 puff IH QID PRN #8.5 gram 06/29/19 07/17/19 07/17/19 09:01 Rx [ProAir HFA Inhaler] Albuterol Sulfate [Proventil Hfa] 2 puff IH Q4HR PRN #1 hfa.aer.ad 07/05/19 07/17/19 07/14/19 Rx lisinopriL [Zestril TAB] 10 mg PO QDAY 07/17/19 07/17/19 07/14/19 09:00 History Active Meds: Active Medications Acetaminophen (Tylenol) 650 mg PO Q4H PRN PRN Reason: Pain MILD(1-3)/Fever >100.5/KOENIG Albuterol/Ipratropium (Duoneb *Not For Prn Use*) 1 ampul IH Q6HRT NADIA Enoxaparin Sodium (Enoxaparin) 30 mg SUB-Q QDAY NADIA Ondansetron HCl (Zofran) 4 mg IV Q8H PRN PRN Reason: Nausea And Vomiting Sodium Chloride (Sodium Chloride Flush Syringe 10 Ml) 10 ml IV BID NADIA Sodium Chloride (Sodium Chloride Flush Syringe 10 Ml) 10 ml IV PRN PRN PRN Reason: LINE FLUSH Exam - Physical Exam Narrative exam: Gen. appearance: Patient lying in bed, no apparent distress HEENT: Normocephalic, atraumatic, pupils equally round and reactive to light, extraocular movement intact, and no sclericterus,. No JVD or thyromegaly or nodule,neck supple, no carotid bruit ,mucous membranes moist, no exudate or erythema Heart: S1, S2, regular rate and rhythm Lungs: Wheezing bilaterally, breathing comfortable Abdomen: Positive bowel sounds, nontender, nondistended, no organomegaly Extremity: no edema, cyanosis, clubbing Skin: No rash, nodules, warm, dry Neuro: Cranial nerves II to XII intact, speech is fluent, moves extremities, sensory intact - Constitutional Vitals: Temp Pulse Resp BP Pulse Ox 97.9 F 73 24 187/116 100 07/17/19 03:55 07/17/19 03:55 07/17/19 03:55 07/17/19 03:55 07/17/19 03:55 HEART Score - HEART Score EKG: Normal Age: 45-65 Risk factors: 1-2 risk factors Troponin: Troponin T < 0.010 ng/mL (0.00-0.029) 07/17/19 03:08 Troponin: < normal limit Results - Labs CBC & Chem 7: 07/17/19 03:08 07/17/19 03:08 Labs: Abnormal lab results 07/17/19 07/17/19 Range/Units 03:08 03:08 MCV 78 L (84-94) fl MCH 25 L (28-32) pg RDW 21.1 H (13.2-15.2) % [place] % (Auto) 12.3 H (0.0-7.3) % [place] # 0.9 H (0.0-0.8) K/mm3 Seg Neutrophils % 70.2 H (40.0-70.0) % Carbon Dioxide 31 H (22-30) mmol/L BUN 23 H (9-20) mg/dL Calcium 8.2 L (8.4-10.2) mg/dL - Imaging and Cardiology EKG: image reviewed Chest x-ray: report reviewed Assessment and Plan Assessment COPD exacerbation Start high-dose steroids, nebulizer treatments Chest pain, atypical Check cardiac enzymes, consult cardiology Status post stress test last year Hypertension Restart outpatient medications HIV, continue medications DVT prophylaxis
[2019-07-17] MEDS: MORPHINE 2 MG/1 ML INJ IV PRN ×3 (06:20→22:48)
[2019-07-17 06:25] LABS: Creatine Kinase MB 4.7 ng/mL (0.0-4.0)
[2019-07-17] MEDS: IPRATROPIUM/ALBUTEROL SULFATE 3 ML AMPUL.NEB IH SCH ×3 (09:00→21:03)
[2019-07-17] MEDS ORDERED: ENOXAPARIN 30 MG/0.3 ML INJ SUB-Q SCH (10:00)
[2019-07-17] MEDS: ENOXAPARIN 40 MG/0.4 ML INJ SUB-Q SCH (10:17)
--- NOTE | 2019-07-17 11:20 | Consultation ---
Medications and Allergies Allergies Allergy/AdvReac Type Severity Reaction Status Date / Time No Known Allergies Allergy Verified 04/27/19 00:01 Home Medications Medication Instructions Recorded Confirmed Last Taken Type Triumeq 600-50-300 mg Tablet 1 each DAILY 08/03/18 07/17/19 06/17/19 History ALBUTEROL NEB's [Proventil 0.083% 2.5 mg IH TID PRN #30 nebu 06/29/19 07/17/19 07/14/19 Rx NEBS] Albuterol INH(or & Nicu Only) 2 puff IH QID PRN #8.5 gram 06/29/19 07/17/19 07/17/19 09:01 Rx [ProAir HFA Inhaler] Albuterol Sulfate [Proventil Hfa] 2 puff IH Q4HR PRN #1 hfa.aer.ad 07/05/19 07/17/19 07/14/19 Rx Active Meds: Active Medications Acetaminophen (Tylenol) 650 mg PO Q4H PRN PRN Reason: Pain MILD(1-3)/Fever >100.5/KOENIG Albuterol/Ipratropium (Duoneb *Not For Prn Use*) 1 ampul IH Q6HRT [facility] Last Admin: 07/17/19 09:00 Dose: 1 ampul Documented by: Amlodipine Besylate (Amlodipine) 5 mg PO QDAY [facility] Aspirin (Baby Aspirin) 81 mg PO QDAY [facility] Enoxaparin Sodium (Enoxaparin) 40 mg SUB-Q QDAY@1000 [facility] Last Admin: 07/17/19 10:17 Dose: 40 mg Documented by: Hydralazine HCl (Apresoline) 10 mg IV Q4HR PRN PRN Reason: SBP>160 or DBP>110 Methylprednisolone Sodium Succinate (Solu-Medrol) 60 mg IV Q8HR [facility] Morphine Sulfate (Morphine) 2 mg IV Q4H PRN PRN Reason: Pain, Moderate (4-6) Last Admin: 07/17/19 06:20 Dose: 2 mg Documented by: Ondansetron HCl (Zofran) 4 mg IV Q8H PRN PRN Reason: Nausea And Vomiting Sodium Chloride (Sodium Chloride Flush Syringe 10 Ml) 10 ml IV BID [facility] Last Admin: 07/17/19 10:18 Dose: 10 ml Documented by: Sodium Chloride (Sodium Chloride Flush Syringe 10 Ml) 10 ml IV PRN PRN PRN Reason: LINE FLUSH Physical Examination Vital Signs Temp Resp BP 98.1 F 18 154/96 07/17/19 02:17 07/17/19 02:17 07/17/19 02:17 Results 07/17/19 03:08 07/17/19 03:08 Cardiac Enzymes 07/17/19 Range/Units 05:32 CK-MB (CK-2) 4.7 H (0.0-4.0) ng/mL CBC 07/17/19 Range/Units 03:08 WBC 7.6 (4.5-11.0) K/mm3 RBC 4.84 (3.65-5.03) M/mm3 Hgb 12.0 (11.8-15.2) gm/dl Hct 37.9 (35.5-45.6) % Plt Count 283 (140-440) K/mm3 Lymph # 1.2 (1.2-5.4) K/mm3 [place] # 0.9 H (0.0-0.8) K/mm3 Eos # 0.1 (0.0-0.4) K/mm3 Baso # 0.0 (0.0-0.1) K/mm3 Comprehensive Metabolic Panel 07/17/19 Range/Units 03:08 Sodium 143 (137-145) mmol/L Potassium 4.9 (3.6-5.0) mmol/L Chloride 98.7 (98-107) mmol/L Carbon Dioxide 31 H (22-30) mmol/L BUN 23 H (9-20) mg/dL Creatinine 1.3 (0.8-1.5) mg/dL Glucose 90 (75-100) mg/dL Calcium 8.2 L (8.4-10.2) mg/dL Assessment and Plan pt seen and examined full consult dictated
--- NOTE | 2019-07-17 11:39 | Event Note ---
Date: 07/17/19 Patient presents with chest pain. BP elevated. I have seen and examined him. Add Hydralazine iv prn. resume home meds. cardiology following.
[2019-07-17] MEDS: methylPREDNISolone Sod Succinate 125 MG/2 ML INJ IV SCH ×2 (11:51→21:56)
[2019-07-17] MEDS: ASPIRIN 81 MG TAB CHEW PO SCH (11:51)
[2019-07-17] MEDS: amLODIPine 5 MG TAB PO SCH (11:51)
--- NOTE | 2019-07-17 12:52 | Consultation ---
CARDIOLOGY CONSULTATION Room 476. REFERRING PHYSICIAN: Dr. Calloway. REASON FOR CONSULTATION: Advice regarding shortness of breath. HISTORY OF PRESENT ILLNESS: The patient is a very pleasant 63-year-old gentleman with a history of HIV, COPD, hypertension, hyperlipidemia, who presents to Emergency Room for evaluation of shortness of breath. Started wheezing, had worsening wheezing. Denies any chest pain today, states she had sharp chest pain yesterday, which was fleeting, has not had any further chest pain, no syncope or presyncope, no abdominal pain. States he feels much better. No nausea, vomiting, diaphoresis, rash, hematochezia, melena, hemoptysis, blurred vision or headache. No fevers, chills, dysuria or polyuria. PAST MEDICAL HISTORY: As aforementioned. PAST SURGICAL HISTORY: None. SOCIAL HISTORY: He does smoke, no alcohol or drugs. FAMILY HISTORY: Hypertension. ALLERGIES: No known drug, food, or environmental allergies. MEDICATIONS: Inpatient and outpatient medications reviewed. PHYSICAL EXAMINATION: VITAL SIGNS: Blood pressure is 160/70, is afebrile. Tele reveals sinus rhythm in the 60s-80s. O2 sats 98% on room air. His chest x-ray on arrival to the Emergency Room yesterday revealed no acute cardiopulmonary process. He did have an EKG, which revealed normal sinus rhythm, indeterminate axis. No acute ST segment shift. LABORATORY DATA: Cardiac enzymes are negative x 1, creatinine and potassium are normal. ASSESSMEN: In summary, the patient is a pleasant 63-year-old gentleman. 1. Acute on chronic hypoxemic respiratory failure, likely consistent with chronic obstructive pulmonary disease exacerbation, clinically improving. 2. Atypical chest pain with normal EKG and 1 normal troponin. He has had no further chest pain, stress lab is now unavailable and closed. Initiate baby aspirin. 4. Hypertension. We will add Norvasc if his blood pressure is trending up. Creatinine is borderline at 1.3. I had a long discussion with the patient regarding lifestyle changes discussed smoking cessation for approximately 5 minutes. At this point, he is clinically stable. No further chest pain, COPD exacerbation is improving. We will consider outpatient stress testing. Check echocardiogram. Thank you for this consultation. We would be happy following with you. JOB# [id number] SBM/NTS
[2019-07-17 12:54] LABS: Creatine Kinase MB 6.4 ng/mL (0.0-4.0)
[2019-07-17] MEDS: hydrALAZINE 20 MG/1 ML INJ IV PRN ×2 (17:44→21:56)
[2019-07-17] MEDS: ACETAMINOPHEN 325 MG TAB PO PRN (20:41)
[2019-07-18] MEDS: IPRATROPIUM/ALBUTEROL SULFATE 3 ML AMPUL.NEB IH SCH ×2 (02:24→07:30)
[2019-07-18] MEDS: methylPREDNISolone Sod Succinate 125 MG/2 ML INJ IV SCH ×2 (06:08→12:59)
[2019-07-18 07:02] LABS: Basophils % (Auto) 0.1 % (0.0-1.8); Hematocrit 34.5 % (35.5-45.6); Hemoglobin 10.9 gm/dl (11.8-15.2); Lymphocytes # (Auto) 0.7 K/mm3 (1.2-5.4); Lymphocytes % (Auto) 6.1 % (13.4-35.0); Mean Corpuscular HGB Conc 32 % (32-34); Mean Corpuscular Volume 77 fl (84-94); Monocytes # (Auto) 0.5 K/mm3 (0.0-0.8); Monocytes % (Auto) 3.9 % (0.0-7.3); Platelet Count 254 K/mm3 (140-440); Red Blood Count 4.48 M/mm3 (3.65-5.03)
[2019-07-18 07:18] LABS: BUN/Creatinine Ratio 21; Blood Urea Nitrogen 25 mg/dL (9-20); Calcium 7.6 mg/dL (8.4-10.2); Hemolysis Index 2
[2019-07-18 07:26] LABS: Red Cell Distribution Width 21.7 % (13.2-15.2)
[2019-07-18] MEDS: ACETAMINOPHEN 325 MG TAB PO PRN (08:05)
[2019-07-18] MEDS ORDERED: ALBUTEROL 2.5 MG/3 ML NEBU IH PRN (09:01)
[2019-07-18] MEDS: amLODIPine 5 MG TAB PO SCH (09:33)
[2019-07-18] MEDS: ASPIRIN 81 MG TAB CHEW PO SCH (09:34)
[2019-07-18] MEDS: ENOXAPARIN 40 MG/0.4 ML INJ SUB-Q SCH (09:34)
[2019-07-18] MEDS: MORPHINE 2 MG/1 ML INJ IV PRN (09:38)
--- NOTE | 2019-07-18 09:56 | Discharge Summary ---
Providers - Providers Date of Admission: 07/17/19 06:58 Date of discharge: 07/18/19 Attending physician: BALDE DUONG 07/17/19 05:54 Consult to Physician [CONS] Routine Comment: Consulting Provider: CATRACHITA JOVEL Physician Instructions: Reason For Exam: cp Primary care physician: COOK PRESSURE Hospitalization Condition: Fair Hospital course: patient is 63-year-old man with a history of HIV, COPD, hypertension, hyperlipidemia presented with shortness of breath, wheezing. His symptoms not relieved with his nebulizer treatment. Also stated that at the same time he developed chest pain in the anterior chest which he describes a sharp pain, intermittent every 2 minutes, intensity 4/10, no radiation. He was started on Aspirin, solumedrol, nebulizer and admitted. The patient will be admitted for COPD exacerbation, chest pain. He was evaluated by Cardiology. By that time, chest pain had resolved and cardiology recommended outpatient stress test. he was then discharged home. R Disposition: DC-01 TO HOME OR SELFCARE - Discharge Diagnoses (1) GERD (gastroesophageal reflux disease) Status: Acute (2) COPD exacerbation Status: Acute (3) Chest pain Status: Acute Qualifiers: Chest pain type: unspecified Qualified Code(s): R07.9 - Chest pain, unspecified Comment: Due to GERD Core Measure Documentation - Palliative Care Palliative Care/ Comfort Measures: Not Applicable - Core Measures Any of the following diagnoses?: none Exam - Constitutional Vitals: Temp Pulse Resp BP Pulse Ox 98.1 F 103 H 20 145/77 96 07/18/19 08:24 07/18/19 09:33 07/18/19 08:24 07/18/19 09:33 07/18/19 08:35 Plan Activity: advance as tolerated Diet: low fat, low cholesterol, low salt Additional Instructions: 1.Follow up with PCP in 1 week. 2.Follow up with Dr. Catrachita Jovel in 1 week Plan of Treatment: 1.Follow up with PCP in 1 week. 2.Follow up with Dr. Catrachita Jovel in 1 week Follow up with: PRIMARY CARE, [Primary Care Provider] - 7 Days Prescriptions: Aspirin EC [Halfprin EC] 81 mg PO QDAY #30 tablet.dr Prednisone [predniSONE 5 mg (6-Day Pack, 21 Tabs)] 5 mg PO .TAPER #1 tab.ds.pk
--- NOTE | 2019-07-18 10:23 | Progress Note ---
Assessment and Plan asx (atypical cp 2 days ago), stress not available in hopsital for 2 days ecg nonacute, ce neg echo reviewed baby asa avois sig exertion until w/u is complete stress mpi as an outpt- contact info given to pt Subjective Date of service: 07/18/19 Interval history: no sxs overnight Objective Vital Signs Temp Pulse Pulse Pulse Pulse Pulse Resp 07/18/19 09:33 103 H 07/18/19 08:35 07/18/19 08:24 98.1 F 98 H 20 07/18/19 07:30 103 H 07/18/19 07:00 103 H 103 H 103 H 19 07/18/19 03:24 97.7 F 106 H 16 07/18/19 02:32 100 H 07/17/19 23:24 97.8 F 116 H 16 07/17/19 23:18 16 07/17/19 22:48 18 07/17/19 21:56 104 H 07/17/19 21:41 16 07/17/19 21:06 102 H 07/17/19 21:05 07/17/19 20:41 0 L 07/17/19 19:42 98.2 F 104 H 20 07/17/19 16:46 83 07/17/19 16:38 97.8 F 80 20 07/17/19 15:32 81 07/17/19 13:29 76 07/17/19 11:56 98.0 F 79 19 07/17/19 11:51 81 Resp BP Pulse Ox 07/18/19 09:33 145/77 07/18/19 08:35 96 07/18/19 08:24 150/91 98 07/18/19 07:30 20 07/18/19 07:00 99 07/18/19 03:24 130/79 96 07/18/19 02:32 20 07/17/19 23:24 165/83 98 07/17/19 23:18 07/17/19 22:48 07/17/19 21:56 180/104 07/17/19 21:41 07/17/19 21:06 20 07/17/19 21:05 98 07/17/19 20:41 07/17/19 19:42 181/104 98 07/17/19 16:46 188/100 93 07/17/19 16:38 181/97 93 05/23/20 15:32 07/17/19 13:29 20 07/17/19 11:56 158/98 92 07/17/19 11:51 185/103 - Labs and Meds Cardiac Enzymes 07/17/19 Range/Units 12:04 CK-MB (CK-2) 6.4 H (0.0-4.0) ng/mL CBC 07/18/19 Range/Units 05:51 WBC 11.8 H (4.5-11.0) K/mm3 RBC 4.48 (3.65-5.03) M/mm3 Hgb 10.9 L (11.8-15.2) gm/dl Hct 34.5 L (35.5-45.6) % Plt Count 254 (140-440) K/mm3 Lymph # 0.7 L (1.2-5.4) K/mm3 [place] # 0.5 (0.0-0.8) K/mm3 Eos # 0.0 (0.0-0.4) K/mm3 Baso # 0.0 (0.0-0.1) K/mm3 Comprehensive Metabolic Panel 07/18/19 Range/Units 05:51 Sodium 138 (137-145) mmol/L Potassium 4.6 (3.6-5.0) mmol/L Chloride 97.9 L (98-107) mmol/L Carbon Dioxide 28 (22-30) mmol/L BUN 25 H (9-20) mg/dL Creatinine 1.2 (0.8-1.5) mg/dL Glucose 108 H (75-100) mg/dL Calcium 7.6 L (8.4-10.2) mg/dL - Imaging and Cardiology EKG: image reviewed
[2019-07-18 12:33] VITALS: BP 142/83
== END 2019-07-18 13:15 | disposition home or self-care (01) ==
LOC: ED 01:51 → SUATTDRO 01:51 → 4A 06:58 → UNDOADMOB 06:58
PROVIDERS: ADMIT Internal Medicine; ATTEND Internal Medicine
DX: J44.1 Chronic obstructive pulmonary disease with (acute) exacerbation (principal); I10 Essential (primary) hypertension; E78.5 Hyperlipidemia, unspecified; E78.00 Pure hypercholesterolemia, unspecified; G89.29 Other chronic pain; M54.9 Dorsalgia, unspecified; Z86.711 Personal history of pulmonary embolism; Z87.891 Personal history of nicotine dependence; Z79.899 Other long term (current) drug therapy
CPT/HCPCS: 36415; 71045; 80048; 82550; 82553; 84484; 85025; 87641; 93005; 93306; 94640; 96365; 96372; 96375; 96376; 99291; G0378; J0360; J1650; J2270; J2405; J2930; J3475

== ENCOUNTER 2019-07-19 16:01 | Emergency (ER) | payer SELFPAY ==
[2019-07-19] MEDS ORDERED: dexAMETHasone 20 MG/5 ML VIAL IV ONE (17:08)
[2019-07-19] MEDS ORDERED: IPRATROPIUM/ALBUTEROL SULFATE 3 ML AMPUL.NEB IH ONE (17:08)
--- NOTE | 2019-07-19 17:36 | XRay Report ---
CHEST 2 VIEWS INDICATION / CLINICAL INFORMATION: Chest Pain. COMPARISON: Chest radiograph 07/17/2019 FINDINGS: SUPPORT DEVICES: None. HEART / MEDIASTINUM: No significant abnormality. LUNGS / PLEURA: No significant pulmonary or pleural abnormality. No pneumothorax. ADDITIONAL FINDINGS: No significant additional findings. IMPRESSION: No acute finding or significant change. Signer Name: Hayden Ambrocio MD Signed: 07/19/2019 5:32 PM Workstation Name: [id number]
[2019-07-19 17:42] LABS: Hematocrit 37.1 % (35.5-45.6); Hemoglobin 11.7 gm/dl (11.8-15.2); Mean Corpuscular HGB Conc 32 % (32-34); Mean Corpuscular Volume 77 fl (84-94); Platelet Count 314 K/mm3 (140-440)
[2019-07-19 18:06] LABS: Alanine Aminotransferase 22 units/L (7-56); Albumin 3.7 g/dL (3.9-5); BUN/Creatinine Ratio 24; Blood Urea Nitrogen 34 mg/dL (9-20); Calcium 7.9 mg/dL (8.4-10.2); Hemolysis Index 5
[2019-07-19 18:43] LABS: Basophils % (Manual) 0 % (0.0-1.8); Eosinophils % (Manual) 0 % (0.0-4.3); Total Cells Counted 100
[2019-07-19 18:44] LABS: Anisocytosis 1+; Hypochromasia 1+
[2019-07-19] MEDS ORDERED: ACETAMINOPHEN 325 MG TAB PO ONE (19:33)
--- NOTE | 2019-07-19 19:54 | Emergency Department Report ---
ED General Adult HPI - General Chief complaint: Dyspnea/Respdistress Stated complaint: SOB Time Seen by Provider: 07/19/19 16:58 Source: patient Mode of arrival: Ambulatory Limitations: No Limitations - History of Present Illness Initial comments: Patient is a 63-year-old male presents emergency room with complaints of a productive cough and shortness of breath that began this morning. He states that he also experiences chest pain after frequent coughing. He denies any nausea, vomiting, diarrhea, fever. He states that he ran out of his albuterol inhaler. He states that he has been taking prednisone. He has a past medical history of hypertension, COPD, HIV. He states he has been taking his medications. He reports he quit smoking 3 weeks ago, he reports that he last used cocaine a week ago. - Related Data Home Medications Medication Instructions Recorded Confirmed Last Taken Triumeq 600-50-300 mg Tablet 1 each DAILY 08/03/18 07/17/19 06/17/19 lisinopriL [Zestril TAB] 10 mg PO QDAY 07/17/19 07/17/19 07/14/19 09:00 Previous Rx's Medication Instructions Recorded Last Taken Type Albuterol Sulfate [Proventil Hfa] 2 puff IH Q4HR PRN #1 hfa.aer.ad 07/05/19 07/14/19 Rx Aspirin EC [Halfprin EC] 81 mg PO QDAY #30 tablet.dr 07/18/19 Unknown Rx Prednisone [predniSONE 5 mg (6-Day 5 mg PO .TAPER #1 tab.ds.pk 07/18/19 Unknown Rx Pack, 21 Tabs)] ALBUTEROL NEB's [Proventil 0.083% 2.5 mg IH TID PRN #30 nebu 07/19/19 Unknown Rx NEBS] Albuterol INH(or & Nicu Only) 2 puff IH QID PRN #8.5 gram 07/19/19 Unknown Rx [ProAir HFA Inhaler] Azithromycin [Zithromax TAB] 250 mg PO QDAY 5 Days #6 tablet 07/19/19 Unknown Rx amLODIPine 10 mg PO DAILY #30 tab 07/19/19 Unknown Rx guaiFENesin/DEXTROMETHORPHAN 1 each PO Q8HR PRN #10 capsule 07/19/19 Unknown Rx [Coricidin Hbp Chest Ajith-Cough] Allergies Allergy/AdvReac Type Severity Reaction Status Date / Time No Known Allergies Allergy Verified 04/27/19 00:01 ED Review of Systems ROS: Stated complaint: SOB Other details as noted in HPI Comment: All other systems reviewed and negative ED Past Medical Hx - Past Medical History Previous Medical History?: Yes Hx Hypertension: Yes Hx CVA: No Hx Heart Attack/AMI: No Hx Congestive Heart Failure: No Hx Diabetes: No Hx Deep Vein Thrombosis: No Hx Pulmonary Embolism: Yes (was on blood thinner at one time pt states taken off them) Hx GERD: No Hx Liver Disease: No Hx Renal Disease: No Hx Sickle Cell Disease: No Hx Arthritis: No Hx Headaches / Migraines: No Hx Seizures: No Hx Kidney Stones: No Hx Psychiatric Treatment: No Hx Asthma: Yes Hx COPD: Yes Hx Tuberculosis: No Hx Dementia: No Hx HIV: No Additional medical history: Elevated Cholesterol & Chronic back pain. - Social History Smoking Status: Former Smoker Substance Use Type: Cocaine - Medications Home Medications: Home Medications Medication Instructions Recorded Confirmed Last Taken Type Triumeq 600-50-300 mg Tablet 1 each DAILY 08/03/18 07/17/19 06/17/19 History Albuterol Sulfate [Proventil Hfa] 2 puff IH Q4HR PRN #1 hfa.aer.ad 07/05/1907/14/19 Rx lisinopriL [Zestril TAB] 10 mg PO QDAY 07/17/19 07/17/19 07/14/19 09:00 History Aspirin EC [Halfprin EC] 81 mg PO QDAY #30 tablet.dr 07/18/19 Unknown Rx Prednisone [predniSONE 5 mg (6-Day 5 mg PO .TAPER #1 tab.ds.pk 07/18/19 Unknown Rx Pack, 21 Tabs)] ALBUTEROL NEB's [Proventil 0.083% 2.5 mg IH TID PRN #30 nebu 07/19/19 Unknown Rx NEBS] Albuterol INH(or & Nicu Only) 2 puff IH QID PRN #8.5 gram 07/19/19 Unknown Rx [ProAir HFA Inhaler] Azithromycin [Zithromax TAB] 250 mg PO QDAY 5 Days #6 tablet 07/19/19 Unknown Rx amLODIPine 10 mg PO DAILY #30 tab 07/19/19 Unknown Rx guaiFENesin/DEXTROMETHORPHAN 1 each PO Q8HR PRN #10 capsule 07/19/19 Unknown Rx [Coricidin Hbp Chest Ajith-Cough] ED Physical Exam - General Limitations: No Limitations General appearance: alert, in no apparent distress - Head Head exam: Present: atraumatic, normocephalic - Eye Eye exam: Present: normal appearance - ENT ENT exam: Present: mucous membranes moist - Respiratory Respiratory exam: Present: wheezes (mild), rhonchi (bilaterally). Absent: respiratory distress, rales, stridor, chest wall tenderness, accessory muscle use, decreased breath sounds, prolonged expiratory - Cardiovascular Cardiovascular Exam: Present: regular rate, normal rhythm, normal heart sounds. Absent: systolic murmur, diastolic murmur, rubs, gallop - Neurological Exam Neurological exam: Present: alert, oriented X3 - Psychiatric Psychiatric exam: Present: normal affect, normal mood - Skin Skin exam: Present: warm, dry, intact ED Course Vital Signs 07/19/19 07/19/19 07/19/19 16:12 19:53 20:26 Temperature 98.7 F Pulse Rate 85 78 Respiratory 22 18 18 Rate Blood Pressure 170/105 Blood Pressure 188/113 [Left] O2 Sat by Pulse 95 100 Oximetry ED Medical Decision Making - Lab Data Result diagrams: 07/19/19 17:23 07/19/19 17:23 Lab Results 07/19/19 07/19/19 07/19/19 Range/Units 17:23 17:23 19:45 WBC 16.9 H (4.5-11.0) K/mm3 RBC 4.80 (3.65-5.03) M/mm3 Hgb 11.7 L (11.8-15.2) gm/dl Hct 37.1 (35.5-45.6) % MCV 77 L (84-94) fl MCH 24 L (28-32) pg MCHC 32 (32-34) % RDW 22.0 H (13.2-15.2) % Plt Count 314 (140-440) K/mm3 Add Manual Diff Complete Total Counted 100 Seg Neutrophils % Search Director Seg Neuts % (Manual) 88.0 H (40.0-70.0) % Band Neutrophils % 0 % Lymphocytes % (Manual) 9.0 L (13.4-35.0) % Reactive Lymphs % (Man) 0 % Monocytes % (Manual) 3.0 (0.0-7.3) % Eosinophils % (Manual) 0 (0.0-4.3) % Basophils % (Manual) 0 (0.0-1.8) % Metamyelocytes % 0 % Myelocytes % 0 % Promyelocytes % 0 % Blast Cells % 0 % Nucleated RBC % Not Reportable Seg Neutrophils # Man 14.9 H (1.8-7.7) K/mm3 Band Neutrophils # 0.0 K/mm3 Lymphocytes # (Manual) 1.5 (1.2-5.4) K/mm3 Abs React Lymphs (Man) 0.0 K/mm3 Monocytes # (Manual) 0.5 (0.0-0.8) K/mm3 Eosinophils # (Manual) 0.0 (0.0-0.4) K/mm3 Basophils # (Manual) 0.0 (0.0-0.1) K/mm3 Metamyelocytes # 0.0 K/mm3 Myelocytes # 0.0 K/mm3 Promyelocytes # 0.0 K/mm3 Blast Cells # 0.0 K/mm3 WBC Morphology Not Reportable Hypersegmented Neuts Not Reportable Hyposegmented Neuts Not Reportable Hypogranular Neuts Not Reportable Smudge Cells Not Reportable Toxic Granulation Not Reportable Toxic Vacuolation Not Reportable Dohle Bodies Not Reportable Pelger-Huet Anomaly Not Reportable Ruma Rods Not Reportable Platelet Estimate Not Reportable Clumped Platelets Not Reportable Plt Clumps, EDTA Not Reportable Large Platelets Not Reportable Giant Platelets Not Reportable Platelet Satelliting Not Reportable Plt Morphology Comment Not Reportable RBC Morphology Not Reportable Dimorphic RBCs Not Reportable Polychromasia Not Reportable Hypochromasia 1+ Poikilocytosis Not Reportable Anisocytosis 1+ Microcytosis 1+ Macrocytosis Not Reportable Spherocytes Not Reportable Pappenheimer Bodies Not Reportable Sickle Cells Not Reportable Target Cells Not Reportable Tear Drop Cells Not Reportable Ovalocytes Not Reportable Helmet Cells Not Reportable [place] Bodies Not Reportable Cantril Rings Not Reportable [place] Cells Not Reportable Bite Cells Not Reportable Crenated Cell Not Reportable Elliptocytes Not Reportable Acanthocytes (Spur) Not Reportable Rouleaux Not Reportable Hemoglobin C Crystals Not Reportable Schistocytes Not Reportable Malaria parasites Not Reportable Ric Bodies Not Reportable Hem Pathologist Commnt No Sodium 140 (137-145) mmol/L Potassium 5.3 H (3.6-5.0) mmol/L Chloride 97.2 L (98-107) mmol/L Carbon Dioxide 29 (22-30) mmol/L Anion Gap 19 mmol/L BUN 34 H (9-20) mg/dL Creatinine 1.4 (0.8-1.5) mg/dL Estimated GFR 51 ml/min BUN/Creatinine Ratio 24 % Glucose 109 H (75-100) mg/dL Calcium 7.9 L (8.4-10.2) mg/dL Total Bilirubin < 0.20 (0.1-1.2) mg/dL AST 17 (5-40) units/L ALT 22 (7-56) units/L Alkaline Phosphatase 69 (35-129) units/L Troponin T < 0.010 < 0.010 (0.00-0.029) ng/mL Total Protein 8.6 H (6.3-8.2) g/dL Albumin 3.7 L (3.9-5) g/dL Albumin/Globulin Ratio 0.8 % - EKG Data EKG shows normal: sinus rhythm, axis, intervals, QRS complexes, ST-T waves Rate: normal - Radiology Data Radiology results: report reviewed CHEST 2 VIEWS INDICATION / CLINICAL INFORMATION: Chest Pain. COMPARISON: Chest radiograph 07/17/2019 FINDINGS: SUPPORT DEVICES: None. HEART / MEDIASTINUM: No significant abnormality. LUNGS / PLEURA: No significant pulmonary or pleural abnormality. No pneumothorax. ADDITIONAL FINDINGS: No significant additional findings. IMPRESSION: No acute finding or significant change. Signer Name: Hayden Ambrocio MD Signed: 07/19/2019 5:32 PM Workstation Name: [id number] Transcribed By: DMB Dictated By: Hayden Ambrocio MD Electronically Authenticated By: Hayden Ambrocio MD Signed Date/Time: 07/19/191731 DD/ 30 TD/TT: - Medical Decision Making Patient is a 63-year-old male presents emergency room with complaints of a productive cough and shortness of breath that began this morning. He states that he also experiences chest pain after frequent coughing. He denies any nausea, vomiting, diarrhea, fever. He states that he ran out of his albuterol inhaler. He states that he has been taking prednisone. He has a past medical history of hypertension, COPD, HIV. He states he has been taking his medications. He reports he quit smoking 3 weeks ago, he reports that he last used cocaine a week ago. Vitals with elevated blood pressure otherwise stable. He states that they changed his lisinopril to carvedilol but he states he does not think it has been controlling his blood pressure. He is not complaining of any elevated blood pressure symptoms. Labs with elevated white blood cell count most likely secondary to steroid use. CMP is stable from priors. Troponin is negative x2. EKG is within normal limits. Chest x-ray with no acute process. On exam patient has mild wheezing and rhonchi. Patient given DuoNeb and steroids and breath sounds improved. Given that patient has COPD and is now having a change in his sputum, will cover patient with antibiotics for acute bronchitis. Patient given refill of his inhaler and his nebulizer solution. Patient given prescription for azithromycin and Coricidin. We will also start patient on amlodipine for better blood pressure control and discussed that he would need to see his primary care doctor regarding his blood pressure. Advised patient Please take medication as prescribed. Please continue taking the prednisone. Please follow-up with a primary care doctor in the next 2 to 3 days for reexamination. Please take your blood pressure and keep a log and take this to the primary care doctor. Eat a low-sodium low-salt diet incorporate 30 minutes of daily exercise return to the emergency room for any new or worsening symptoms. - Differential Diagnosis acute on COPD, CHF, PNA, URI, viral syndrome, asthma, reactive airway Critical care attestation.: If time is entered above; I have spent that time in minutes in the direct care of this critically ill patient, excluding procedure time. ED Disposition Clinical Impression: Acute bronchitis with chronic obstructive pulmonary disease (COPD), Elevated blood pressure reading Disposition: TO HOME OR SELFCARE Is pt being admited?: No Does the pt Need Aspirin: No Condition: Stable Instructions: Chronic Obstructive Pulmonary Disease (ED), Chronic Hypertension (ED) Additional Instructions: Please take medication as prescribed. Please continue taking the prednisone. Please follow-up with a primary care doctor in the next 2 to 3 days for reexamination. Please take your blood pressure and keep a log and take this to the primary care doctor. Eat a low-sodium low-salt diet incorporate 30 minutes of daily exercise return to the emergency room for any new or worsening symptoms. Prescriptions: amLODIPine 10 mg PO DAILY #30 tab guaiFENesin/DEXTROMETHORPHAN [Coricidin Hbp Chest Ajith-Cough] 1 each PO Q8HR PRN #10 capsule PRN Reason: cough Albuterol INH(or & Nicu Only) [ProAir HFA Inhaler] 2 puff IH QID PRN #8.5 gram PRN Reason: Shortness Of Breath ALBUTEROL NEB's [Proventil 0.083% NEBS] 2.5 mg IH TID PRN #30 nebu PRN Reason: Wheezing Azithromycin [Zithromax TAB] 250 mg PO QDAY 5 Days #6 tablet Referrals: CONY SIMPSON MD [Staff Physician] - 3-5 Days [facility] [Provider Group] - 3-5 Days Time of Disposition: 20:36 Print Language: GHANAIAN
[2019-07-19 20:27] VITALS: BP 188/113
== END 2019-07-19 21:03 | disposition home or self-care (01) ==
LOC: ED 16:01
DX: J44.9 Chronic obstructive pulmonary disease, unspecified (principal); I10 Essential (primary) hypertension; E78.00 Pure hypercholesterolemia, unspecified; Z87.891 Personal history of nicotine dependence
CPT/HCPCS: 36415; 71046; 80053; 84484; 85007; 85025; 93005; 96374; 99284; J1100

== ENCOUNTER 2019-07-26 05:12 | Emergency (ER) | payer SELFPAY ==
[2019-07-26 06:17] LABS: Eosinophils # (Auto) 0.1 K/mm3 (0.0-0.4); Eosinophils % (Auto) 1.5 % (0.0-4.3); Monocytes # (Auto) 0.7 K/mm3 (0.0-0.8); Monocytes % (Auto) 9.3 % (0.0-7.3)
[2019-07-26 06:22] LABS: Basophils % (Auto) 0.2 % (0.0-1.8); Hematocrit 33.3 % (35.5-45.6); Hemoglobin 10.9 gm/dl (11.8-15.2); Lymphocytes # (Auto) 0.8 K/mm3 (1.2-5.4); Mean Corpuscular HGB Conc 33 % (32-34); Mean Corpuscular Volume 77 fl (84-94); Platelet Count 300 K/mm3 (140-440)
--- NOTE | 2019-07-26 06:22 | XRay Report ---
CHEST 1 VIEW INDICATION / CLINICAL INFORMATION: SOB. Dyspnea COMPARISON: None available. FINDINGS: SUPPORT DEVICES: None. HEART / MEDIASTINUM: No significant abnormality. LUNGS / PLEURA: No significant pulmonary or pleural abnormality. No pneumothorax. ADDITIONAL FINDINGS: No significant additional findings. IMPRESSION: 1. No acute findings. Signer Name: Cristi Triana MD Signed: 07/26/2019 6:18 AM Workstation Name: [id number]
[2019-07-26 06:31] LABS: Alanine Aminotransferase 22 units/L (7-56); Albumin 3.7 g/dL (3.9-5); BUN/Creatinine Ratio 16; Blood Urea Nitrogen 19 mg/dL (9-20); Calcium 7.4 mg/dL (8.4-10.2)
[2019-07-26 06:32] LABS: Red Cell Distribution Width 22.1 % (13.2-15.2)
[2019-07-26] MEDS ORDERED: ACETAMINOPHEN 500 MG TAB PO ONE (06:35)
[2019-07-26 06:37] LABS: INR 0.94 (0.87-1.13)
[2019-07-26 06:38] LABS: Partial Thromboplastin Time 24.6 Sec. (24.2-36.6)
[2019-07-26] MEDS ORDERED: IPRATROPIUM 0.02% NEBU 2.5 ML IH ONE (06:39)
[2019-07-26] MEDS ORDERED: ALBUTEROL 2.5 MG/3 ML NEBU IH ONE (06:39)
--- NOTE | 2019-07-26 06:39 | Emergency Department Report ---
ED Shortness of Breath HPI - General Chief Complaint: Dyspnea/Respdistress Stated Complaint: DIFFICULTY BREATHING Time Seen by Provider: 07/26/19 06:34 Source: patient, EMS Mode of arrival: Ambulatory Limitations: No Limitations - History of Present Illness Initial Comments: Patient is 63 years old male with history of COPD and asthma. Patient brought to the emergency room via EMS from home for evaluation of shortness of breath for the last few days. Patient also complaining of cough, greenish sputum. Patient denied any fever or chills. No chest pain. Patient also denied any nausea or vomiting. Patient stated that he has been using his albuterol with no significant improvement. Patient received albuterol and Solu-Medrol 125 mg in route. MD Complaint: shortness of breath, cough - Related Data Home Medications Medication Instructions Recorded Confirmed Last Taken Triumeq 600-50-300 mg Tablet 1 each DAILY 08/03/18 07/17/19 06/17/19 lisinopriL [Zestril TAB] 10 mg PO QDAY 07/17/19 07/17/19 07/14/19 09:00 Previous Rx's Medication Instructions Recorded Last Taken Type Albuterol Sulfate [Proventil Hfa] 2 puff IH Q4HR PRN #1 hfa.aer.ad 07/05/19 07/14/19 Rx Aspirin EC [Halfprin EC] 81 mg PO QDAY #30 tablet.dr 07/18/19 Unknown Rx Prednisone [predniSONE 5 mg (6-Day 5 mg PO .TAPER #1 tab.ds.pk 07/18/19 Unknown Rx Pack, 21 Tabs)] ALBUTEROL NEB's [Proventil 0.083% 2.5 mg IH TID PRN #30 nebu 07/19/19 Unknown Rx NEBS] Albuterol INH(or & Nicu Only) 2 puff IH QID PRN #8.5 gram 07/19/19 Unknown Rx [ProAir HFA Inhaler] Azithromycin [Zithromax TAB] 250 mg PO QDAY 5 Days #6 tablet 07/19/19 Unknown Rx amLODIPine 10 mg PO DAILY #30 tab 07/19/19 Unknown Rx guaiFENesin/DEXTROMETHORPHAN 1 each PO Q8HR PRN #10 capsule 07/19/19 Unknown Rx [Coricidin Hbp Chest Ajith-Cough] Allergies Allergy/AdvReac Type Severity Reaction Status Date / Time No Known Allergies Allergy Verified 04/27/19 00:01 ED Review of Systems ROS: Stated complaint: DIFFICULTY BREATHING Other details as noted in HPI ED Past Medical Hx - Past Medical History Previous Medical History?: Yes Hx Hypertension: Yes Hx CVA: No Hx Heart Attack/AMI: No Hx Congestive Heart Failure: No Hx Diabetes: No Hx Deep Vein Thrombosis: No Hx Pulmonary Embolism: Yes (was on blood thinner at one time pt states taken off them) Hx GERD: No Hx Liver Disease: No Hx Renal Disease: No Hx Sickle Cell Disease: No Hx Arthritis: No Hx Headaches / Migraines: No Hx Seizures: No Hx Kidney Stones: No Hx Psychiatric Treatment: No Hx Asthma: Yes Hx COPD: Yes Hx Tuberculosis: No Hx Dementia: No Hx HIV: Yes Additional medical history: Elevated Cholesterol & Chronic back pain. - Social History Smoking Status: Former Smoker - Medications Home Medications: Home Medications Medication Instructions Recorded Confirmed Last Taken Type Triumeq 600-50-300 mg Tablet 1 each DAILY 08/03/18 07/17/19 06/17/19 History Albuterol Sulfate [Proventil Hfa] 2 puff IH Q4HR PRN #1 hfa.aer.ad 07/05/19 07/17/19 07/14/19 Rx lisinopriL [Zestril TAB] 10 mg PO QDAY 07/17/19 07/17/19 07/14/19 09:00 History Aspirin EC [Halfprin EC] 81 mg PO QDAY #30 tablet.dr 07/18/19 Unknown Rx Prednisone [predniSONE 5 mg (6-Day 5 mg PO .TAPER #1 tab.ds.pk 07/18/19 Unknown Rx Pack, 21 Tabs)] ALBUTEROL NEB's [Proventil 0.083% 2.5 mg IH TID PRN #30 nebu 07/19/19 Unknown Rx NEBS] Albuterol INH(or & Nicu Only) 2 puff IH QID PRN #8.5 gram 07/19/19 Unknown Rx [ProAir HFA Inhaler] Azithromycin [Zithromax TAB] 250 mg PO QDAY 5 Days #6 tablet 07/19/19 Unknown Rx amLODIPine 10 mg PO DAILY #30 tab 07/19/19 Unknown Rx guaiFENesin/DEXTROMETHORPHAN 1 each PO Q8HR PRN #10 capsule 07/19/19 Unknown Rx [Coricidin Hbp Chest Ajith-Cough] ED Physical Exam - General Limitations: No Limitations General appearance: alert, in no apparent distress - Head Head exam: Present: atraumatic, normocephalic, normal inspection - Eye Eye exam: Present: normal appearance - ENT ENT exam: Present: normal exam, normal orophraynx, mucous membranes moist - Neck Neck exam: Present: normal inspection, full ROM. Absent: tenderness, meni ngismus - Respiratory Respiratory exam: Present: wheezes. Absent: rales, rhonchi, accessory muscle use, decreased breath sounds, prolonged expiratory - Cardiovascular Cardiovascular Exam: Present: regular rate, normal rhythm, normal heart sounds - GI/Abdominal GI/Abdominal exam: Present: soft, normal bowel sounds. Absent: distended, tenderness, guarding, rebound, rigid, organomegaly, mass, bruit, pulsatile mass, hernia - Extremities Exam Extremities exam: Present: normal inspection, full ROM, normal capillary refill. Absent: pedal edema, calf tenderness - Back Exam Back exam: Present: normal inspection, full ROM. Absent: CVA tenderness (R), CVA tenderness (L), muscle spasm, paraspinal tenderness, vertebral tenderness - Neurological Exam Neurological exam: Present: alert, oriented X3, CN II-XII intact, normal gait. Absent: motor sensory deficit - Psychiatric Psychiatric exam: Present: normal mood - Skin Skin exam: Present: warm, intact, normal color ED Course Vital Signs 07/26/19 07/26/19 07/26/19 05:30 05:33 05:53 Temperature 97.9 F 97.9 F Pulse Rate 78 78 Respiratory 20 20 20 Rate Blood Pressure 137/91 Blood Pressure 137/91 [Left] O2 Sat by Pulse 91 91 91 Oximetry ED Medical Decision Making - Lab Data Result diagrams: 07/26/19 06:00 07/26/19 06:00 - EKG Data -: EKG Interpreted by Wa EKG shows normal: sinus rhythm Rate: normal - EKG Data Interpretation: no acute changes - Radiology Data Radiology results: report reviewed - Medical Decision Making Patient is 63 years old male with history of COPD and asthma. Patient brought to the emergency room via EMS from home for evaluation of shortness of breath for the last few days. Patient also complaining of cough, greenish sputum. Patient denied any fever or chills. No chest pain. Patient denied any contact with patient with COVID-19. Patient also denied any nausea or vomiting. Patient stated that he has been using his albuterol with no significant improvement. Patient received albuterol and Solu-Medrol 125 mg in route. Patient received albuterol and Atrovent in the emergency room. Labs reviewed and is unremarkable. Chest x-ray is unremarkable. Patient stated that he is feeling much better. Patient given prescription for prednisone, Levaquin. Patient advised to follow-up with his primary care physician in the next 2 to 3 days and to return to the ER if he develop any new symptoms. Critical care attestation.: If time is entered above; I have spent that time in minutes in the direct care of this critically ill patient, excluding procedure time. ED Disposition Clinical Impression: COPD exacerbation Disposition: DC-01 TO HOME OR SELFCARE Is pt being admited?: No Condition: Stable Instructions: Chronic Obstructive Pulmonary Disease (ED) Referrals: PRIMARY CARE, [Primary Care Provider] - 3-5 Days
[2019-07-26 09:03] VITALS: BP 125/83
== END 2019-07-26 09:05 | disposition home or self-care (01) ==
LOC: ED 05:12
DX: J44.1 Chronic obstructive pulmonary disease with (acute) exacerbation (principal)
CPT/HCPCS: 36415; 71045; 80053; 83880; 84484; 85025; 85610; 85730; 93005

== ENCOUNTER 2019-07-31 11:06 | Emergency (ER) | payer SELFPAY ==
[2019-07-31 11:32] VITALS: BP 120/82
--- NOTE | 2019-07-31 12:21 | XRay Report ---
CHEST 1 VIEW INDICATION: Lightheadedness/Dizziness COMPARISON: 07/26/2019 FINDINGS: SUPPORT DEVICES: None. HEART / MEDIASTINUM: No significant abnormality. LUNGS / PLEURA: No significant pulmonary or pleural abnormality. No pneumothorax. ADDITIONAL FINDINGS: IMPRESSION: 1. No acute cardiopulmonary disease Signer Name: Te Zarate MD Signed: 07/31/2019 12:17 PM Workstation Name: [id number]
[2019-07-31 12:29] LABS: Basophils % (Auto) 0.2 % (0.0-1.8); Eosinophils % (Auto) 0.3 % (0.0-4.3); Hematocrit 33.4 % (35.5-45.6); Hemoglobin 10.7 gm/dl (11.8-15.2); Lymphocytes # (Auto) 0.7 K/mm3 (1.2-5.4); Lymphocytes % (Auto) 10.8 % (13.4-35.0); Mean Corpuscular HGB Conc 32 % (32-34); Mean Corpuscular Volume 77 fl (84-94); Monocytes # (Auto) 0.6 K/mm3 (0.0-0.8); Monocytes % (Auto) 9.6 % (0.0-7.3); Platelet Count 371 K/mm3 (140-440); Red Blood Count 4.33 M/mm3 (3.65-5.03)
[2019-07-31 12:30] LABS: Red Cell Distribution Width 21.9 % (13.2-15.2)
[2019-07-31 12:48] LABS: BUN/Creatinine Ratio 20; Blood Urea Nitrogen 38 mg/dL (9-20); Calcium 8.1 mg/dL (8.4-10.2); Hemolysis Index 1
== END 2019-07-31 13:44 | disposition left against medical advice (07) ==
LOC: ED 11:06
DX: R42 Dizziness and giddiness (principal); Z53.21 Procedure and treatment not carried out due to patient leaving prior to being seen by health care provider
CPT/HCPCS: 36415; 71045; 80048; 83690; 84484; 85025

== ENCOUNTER 2019-08-23 17:37 | Observation (INO) | payer OTHER ==
--- NOTE | 2019-08-23 18:37 | Event Note ---
ED Screening Note Date of service: 08/23/19 Time: 18:35 ED Screening Note: Pt complains of substernal chest pain x this morning. Patient also states he is short of breath History of cocaine abuse Denies history of congestive heart failure +Hx of COPD-current O2 sat 92% on room air This initial assessment/diagnostic orders/clinical plan/treatment(s) is/are subject to change based on patients health status, clinical progression and re- assessment by fellow clinical providers in the ED. Further treatment and workup at subsequent clinical providers discretion. Patient/guardian urged not to elope from the ED as their condition may be serious if not clinically assessed and managed. Initial orders include: labs CXR EKG oxygen via nasal cannula
--- NOTE | 2019-08-23 19:23 | XRay Report ---
CHEST 2 VIEWS INDICATION: chest pain. COMPARISON: 08/21/2019 FINDINGS: Support devices: None. Heart: Within normal limits. Lungs/Pleura: No acute air space or interstitial disease. No significant pleural effusion. IMPRESSION: No acute findings. Signer Name: Bobby Vela MD Signed: 08/23/2019 7:18 PM Workstation Name: [id number]
[2019-08-23 19:25] LABS: Basophils % (Auto) 0.3 % (0.0-1.8); Eosinophils # (Auto) 0.1 K/mm3 (0.0-0.4); Eosinophils % (Auto) 1.6 % (0.0-4.3); Hematocrit 29.8 % (35.5-45.6); Hemoglobin 9.6 gm/dl (11.8-15.2); Lymphocytes # (Auto) 1.2 K/mm3 (1.2-5.4); Lymphocytes % (Auto) 18.9 % (13.4-35.0); Mean Corpuscular HGB Conc 32 % (32-34); Mean Corpuscular Volume 79 fl (84-94); Monocytes # (Auto) 0.7 K/mm3 (0.0-0.8); Monocytes % (Auto) 10.8 % (0.0-7.3); Platelet Count 442 K/mm3 (140-440); Red Blood Count 3.79 M/mm3 (3.65-5.03)
[2019-08-23 19:33] LABS: Red Cell Distribution Width 20.5 % (13.2-15.2)
[2019-08-23 19:52] LABS: Alanine Aminotransferase 16 units/L (7-56); Albumin 3.7 g/dL (3.9-5); BUN/Creatinine Ratio 14; Blood Urea Nitrogen 19 mg/dL (9-20); Calcium 7.6 mg/dL (8.4-10.2); Hemolysis Index 14
[2019-08-23 20:26] LABS: Bilirubin,Urine NEG (Negative); Blood,Urine NEG (Negative); Color,Urine Yellow (Yellow); Mucus,Urine FEW /HPF; RBC,Urine < 1.0 /HPF (0.0-6.0); WBC,Urine < 1.0 /HPF (0.0-6.0)
[2019-08-23] MEDS ORDERED: fentaNYL 100 MCG/2 ML INJ IV ONE (20:33)
[2019-08-23] MEDS ORDERED: ONDANSETRON 4 MG/2 ML INJ IV ONE (20:33)
[2019-08-23] MEDS ORDERED: NITROGLYCERIN 2% OINT 1 GM TP ONE (20:33)
[2019-08-23] MEDS ORDERED: ASPIRIN 325 MG TAB PO ONE (20:34)
--- NOTE | 2019-08-23 20:53 | Emergency Department Report ---
HPI - General Chief Complaint: Chest Pain Time Seen by Provider: 08/23/19 20:29 - HPI HPI: Room 7 The patient is a 63-year-old male present with a chief complaint of chest pain. Patient states he developed anterior chest pain this morning that was sharp in nature associated with shortness of breath. Patient admits to pleurisy but denies fever or cough. Patient denies nausea/vomiting or diaphoresis with this pain. Patient states he is never had a cardiac catheterization. Patient gives his pain a score of 9/10 ED Past Medical Hx - Past Medical History Previous Medical History?: Yes Hx Hypertension: Yes Hx Pulmonary Embolism: Yes (was on blood thinner at one time pt states taken off them) Hx Asthma: Yes Hx COPD: Yes Hx HIV: Yes Additional medical history: Elevated Cholesterol & Chronic back pain. - Family History Family history: no significant - Social History Smoking Status: Current Some Day Smoker Substance Use Type: Cocaine (Last use 1 week ago) - Medications Home Medications: Home Medications Medication Instructions Recorded Confirmed Last Taken Type clonazePAM [Klonopin] 1 mg PO HS 08/23/19 08/23/19 Unknown History traZODone 50 mg PO 08/23/19 08/23/19 Unknown History ED Review of Systems ROS: Stated complaint: RICKY/CHEST PAIN Other details as noted in HPI Constitutional: denies: fever Eyes: denies: eye pain Respiratory: shortness of breath. denies: cough Cardiovascular: chest pain Endocrine: no symptoms reported Gastrointestinal: denies: nausea, vomiting Genitourinary: denies: dysuria Musculoskeletal: denies: back pain Neurological: denies: headache Physical Exam - Physical Exam Vital Signs: Vital Signs 08/23/19 08/23/19 18:00 18:35 Temperature 98.1 F 98.1 F Pulse Rate 98 H 99 H Respiratory 20 24 Rate Blood Pressure 145/81 145/81 O2 Sat by Pulse 94 92 Oximetry Physical Exam: GENERAL: The patient is well-developed well-nourished male lying on stretcher not appearing to be in acute distress. [] HEENT: Normocephalic. Atraumatic. Extraocular motions are intact. Patient has moist mucous membranes. NECK: Supple. Trachea midline CHEST/LUNGS: Clear to auscultation. There is no respiratory distress noted. HEART/CARDIOVASCULAR: Regular. There is no tachycardia. There is no gallop rub or murmur. ABDOMEN: Abdomen is soft, nontender. Patient has normal bowel sounds. There is no abdominal distention. SKIN: There is no rash. There is no edema. There is no diaphoresis. NEURO: The patient is awake, alert, and oriented. The patient is cooperative. The patient has normal speech MUSCULOSKELETAL: There is no evidence of acute injury. ED Course Vital Signs 08/23/19 08/23/19 18:00 18:35 Temperature 98.1 F 98.1 F Pulse Rate 98 H 99 H Respiratory 20 24 Rate Blood Pressure 145/81 145/81 O2 Sat by Pulse 94 92 Oximetry ED Medical Decision Making - Lab Data Result diagrams: 08/23/19 19:04 08/23/19 19:04 Laboratory Tests 08/23/19 08/23/19 08/23/19 19:04 19:04 19:04 WBC 6.6 RBC 3.79 Hgb 9.6 L Hct 29.8 L MCV 79 L MCH 25 L MCHC 32 RDW 20.5 H Plt Count 442 H Lymph % (Auto) 18.9 [place] % (Auto) 10.8 H Eos % (Auto) 1.6 Baso % (Auto) 0.3 Lymph # 1.2 [place] # 0.7 Eos # 0.1 Baso # 0.0 Seg Neutrophils % 68.4 Seg Neutrophils # 4.5 D-Dimer Sodium 142 Potassium 4.2 Chloride 99.8 Carbon Dioxide 31 H Anion Gap 15 BUN 19 Creatinine 1.4 Estimated GFR 51 BUN/Creatinine Ratio 14 Glucose 87 Calcium 7.6 L Total Bilirubin 0.20 AST 17 ALT 16 Alkaline Phosphatase 73 Troponin T < 0.010 NT-Pro-B Natriuret Pep 312.5 Total Protein 7.9 Albumin 3.7 L Albumin/Globulin Ratio 0.9 Urine Color Urine Turbidity Urine pH Ur Specific [place] Urine Protein Urine Glucose (UA) Urine Ketones Urine Blood Urine Nitrite Urine Bilirubin Urine Urobilinogen Ur Leukocyte Esterase Urine WBC (Auto) Urine RBC (Auto) Urine Mucus Urine Opiates Screen Urine Methadone Screen Ur Barbiturates Screen Ur Phencyclidine Scrn Ur Amphetamines Screen U Benzodiazepines Scrn Urine Cocaine Screen U Marijuana (THC) Screen Drugs of Abuse Note 08/23/19 08/23/19 08/23/19 20:51 20:51 Unknown WBC RBC Hgb Hct MCV MCH MCHC RDW Plt Count Lymph % (Auto) [place] % (Auto) Eos % (Auto) Baso % (Auto) Lymph # [place] # Eos # Baso # Seg Neutrophils % Seg Neutrophils # D-Dimer 425.09 H Sodium Potassium Chloride Carbon Dioxide Anion Gap BUN Creatinine Estimated GFR BUN/Creatinine Ratio Glucose Calcium Total Bilirubin AST ALT Alkaline Phosphatase Troponin T < 0.010 NT-Pro-B Natriuret Pep Total Protein Albumin Albumin/Globulin Ratio Urine Color Yellow Urine Turbidity Clear Urine pH 6.0 Ur Specific [place] 1.017 Urine Protein 100 mg/dl Urine Glucose (UA) Neg Urine Ketones Neg Urine Blood Neg Urine Nitrite Neg Urine Bilirubin Neg Urine Urobilinogen 2.0 Ur Leukocyte Esterase Neg Urine WBC (Auto) < 1.0 Urine RBC (Auto) < 1.0 Urine Mucus Few Urine Opiates Screen Urine Methadone Screen Ur Barbiturates Screen Ur Phencyclidine Scrn Ur Amphetamines Screen U Benzodiazepines Scrn Urine Cocaine Screen U Marijuana (THC) Screen Drugs of Abuse Note 08/23/19 Unknown WBC RBC Hgb Hct MCV MCH MCHC RDW Plt Count Lymph % (Auto) [place] % (Auto) Eos % (Auto) Baso % (Auto) Lymph # [place] # Eos # Baso # Seg Neutrophils % Seg Neutrophils # D-Dimer Sodium Potassium Chloride Carbon Dioxide Anion Gap BUN Creatinine Estimated GFR BUN/Creatinine Ratio Glucose Calcium Total Bilirubin AST ALT Alkaline Phosphatase Troponin T NT-Pro-B Natriuret Pep Total Protein Albumin Albumin/Globulin Ratio Urine Color Urine Turbidity Urine pH Ur Specific [place] Urine Protein Urine Glucose (UA) Urine Ketones Urine Blood Urine Nitrite Urine Bilirubin Urine Urobilinogen Ur Leukocyte Esterase Urine WBC (Auto) Urine RBC (Auto) Urine Mucus Urine Opiates Screen Presumptive negative Urine Methadone Screen Presumptive negative Ur Barbiturates Screen Presumptive negative Ur Phencyclidine Scrn Presumptive negative Ur Amphetamines Screen Presumptive negative U Benzodiazepines Scrn Presumptive negative Urine Cocaine Screen Presumptive positive U Marijuana (THC) Screen Presumptive negative Drugs of Abuse Note Disclamer - EKG Data -: EKG Interpreted by Me EKG shows normal: sinus rhythm Rate: normal - EKG Data When compared to previous EKG there are: previous EKG unavailable Interpretation: other (no ischemic changes) - Radiology Data Radiology results: report reviewed (CXR, CT chest), image reviewed (CXR, CT chest) interpreted by me: CXR- no focal infilktrates no ptx Findings [facility] [address] [place] [address] XRay Report Signed Patient: NAVARRO YAN MR #: [id number] : 1955 Acct:[id number] Age/Sex: 63 / M ADM Date: 08/23/19 Loc: ED Attending Dr: Ordering Physician: NARAYAN GIPSON Date of Service: 08/23/19 Procedure(s): XR chest routine 2V Accession Number(s): [id number] cc: NARAYAN GIPSON Fluoro Time In Minutes: CHEST 2 VIEWS INDICATION: chest pain. COMPARISON: 08/21/2019 FINDINGS: Support devices: None. Heart: Within normal limits. Lungs/Pleura: No acute air space or interstitial disease. No significant pleural effusion. IMPRESSION: No acute findings. Signer Name: Bobby Vela MD Signed: 08/23/2019 7:18 PM Workstation Name: [id number] Transcribed By: ES Dictated By: Bobby Vela MD Electronically Authenticated By: Bobby Vela MD Signed Date/Time: 08/23/191917 DD/ 17 TD/TT: [facility] [address] [place] [address] Cat Scan Report Signed Patient: NAVARRO YAN MR #: [id number] : 1955 Acct:[id number] Age/Sex: 63 / M ADM Date: 08/23/19 Loc: ED Attend ing Dr: Ordering Physician: TUSHAR TRUONG MD Date of Service: 08/23/19 Procedure(s): CT angio chest Accession Number(s): [id number] cc: TUSHAR TRUONG MD CTA CHEST WITH IV CONTRAST INDICATION: P.E. PROTOCOL!! Chest pain, shortness of breath x 3 days. Omnipaque 350 / 100ml's was used for this exam. . TECHNIQUE: Axial CT images were obtained through the chest after injection of IV contrast. 3 plane MIP reconstructions were produced. All CT scans at this location are performed using CT dose reduction for ALARA by means of automated exposure control. COMPARISON: CTA 08/03/2019 FINDINGS: Pulmonary Arteries: No pulmonary emboli. Thoracic Aorta: No acute abnormality. Heart: Normal. Lungs: No acute air space or interstitial disease. Emphysematous changes are again noted. Pleura: No pleural effusion. No pneumothorax. Lymph Nodes: No significant adenopathy. Additional Findings: None. Upper Abdomen: No acute findings. Skeletal Structures: No significant osseous abnormality. IMPRESSION: 1. No CT evidence for pulmonary embolism. 2. No acute findings. Signer Name: Jose Moreno MD Signed: 08/23/2019 11:44 PM Workstation Name: [id number] Transcribed By: KINJAL Dictated By: Jose Moreno MD Electronically Authenticated By: Jose Moreno MD Signed Date/Time: 08/23/192343 DD/ 41 TD/TT: - Differential Diagnosis acs, pe, pericarditis, gerd Critical care attestation.: If time is entered above; I have spent that time in minutes in the direct care of this critically ill patient, excluding procedure time. ED Disposition Clinical Impression: Chest pain Disposition: -09 OP ADMIT IP TO THIS HOSP Is pt being admited?: Yes Does the pt Need Aspirin: Yes Condition: Fair Instructions: Chest Pain (ED) Referrals: PRIMARY CARE, [Primary Care Provider] - 3-5 Days Time of Disposition: 00:29 (Hospitalist paged (Dr Cook))
[2019-08-23 20:59] LABS: Amphetamine Screen,Urine PRESUMPTIVE NEGATIVE; Benzodiazepines Screen,Urine PRESUMPTIVE NEGATIVE; Cannabinoid Screen,Urine PRESUMPTIVE NEGATIVE; Cocaine Screen,Urine PRESUMPTIVE POSITIVE
[2019-08-23 21:00] LABS: Methadone Screen,Urine PRESUMPTIVE NEGATIVE; Opiate Screen,Urine PRESUMPTIVE NEGATIVE
--- NOTE | 2019-08-23 23:49 | Cat Scan Report ---
CTA CHEST WITH IV CONTRAST INDICATION: P.E. PROTOCOL!! Chest pain, shortness of breath x 3 days. Omnipaque 350 / 100ml's was used for this exam. . TECHNIQUE: Axial CT images were obtained through the chest after injection of IV contrast. 3 plane MIP reconstru ctions were produced. All CT scans at this location are performed using CT dose reduction for ALARA b y means of automated exposure control. COMPARISON: CTA 08/03/2019 FINDINGS: Pulmonary Arteries: No pulmonary emboli. Thoracic Aorta: No acute abnormality. Heart: Normal. Lungs: No acute air space or interstitial disease. Emphysematous changes are again noted. Pleura: No pleural effusion. No pneumothorax. Lymph Nodes: No significant adenopathy. Additional Findings: None. Upper Abdomen: No acute findings. Skeletal Structures: No significant osseous abnormality. IMPRESSION: 1. No CT evidence for pulmonary embolism. 2. No acute findings. Signer Name: Jose Moreno MD Signed: 08/23/2019 11:44 PM Workstation Name: [id number]
[2019-08-24] MEDS ORDERED: ACETAMINOPHEN 325 MG TAB PO PRN (01:20)
[2019-08-24] MEDS ORDERED: hydrALAZINE 20 MG/1 ML INJ IV PRN (01:20)
[2019-08-24] MEDS ORDERED: MORPHINE 2 MG/1 ML INJ IV PRN (01:20)
[2019-08-24] MEDS ORDERED: ONDANSETRON 4 MG/2 ML INJ IV PRN (01:20)
[2019-08-24] MEDS ORDERED: NITROGLYCERIN 0.4 MG TAB SUBL SL PRN (01:20)
[2019-08-24] MEDS ORDERED: MAGNESIUM HYDROXIDE (MOM) ORAL LIQD UDC PO PRN (01:20)
--- NOTE | 2019-08-24 01:32 | History and Physical Report ---
History of Present Illness Date of examination: 08/24/19 Date of admission: 08/24/19 00:56 Chief complaint: Chest pain History of present illness: 63-year-old male presenting to the emergency room today complaining of chest pain He has known history of COPD, history of pulmonary embolism in the past, history of HIV with unknown CD4 count. Chest pain is said to be sharp and was said to be in the midsternal area. No no relieving or exacerbating factor. He had associated shortness of breath, denies any nausea vomiting, denies any diaphoresis, no fever or chills, no headache or dizziness. On a scale of 10 pain was said to be about 9/10. Patient admits to using cocaine about a week ago. He denies any use sick contacts, no recent travel, and no contact with anyone with COVID-19. Evaluation in the emergency room today did not reveal any significant findings except for positive cocaine in the UDS. Past History Past Medical History: COPD, GERD, hypertension, hyperlipidemia, pulmonary embolism, other (Chronic back pain, history of HIV CD4 count unknown) Past Surgical History: No surgical history Social history: smoking (Current every day smoker), other (This cocaine occasionally. Last use was about a week ago) Family history: no significant family history Medications and Allergies Allergies Allergy/AdvReac Type Severity Reaction Status Date / Time No Known Allergies Allergy Verified 04/27/19 00:01 Home Medications Medication Instructions Recorded Confirmed Last Taken Type clonazePAM [Klonopin] 1 mg PO HS 08/23/19 08/23/19 Unknown History traZODone 50 mg PO HS 08/23/19 08/23/19 Unknown History Review of Systems Constitutional: no fever, no chills Ears, nose, mouth and throat: no nasal congestion, no sore throat Cardiovascular: chest pain, no palpitations Respiratory: no cough, no shortness of breath Gastrointestinal: no abdominal pain, no nausea, no vomiting, no diarrhea Genitourinary Male: no dysuria, no hematuria, no flank pain Musculoskeletal: no neck pain, no low back pain Integumentary: no rash, no pruritis Neurological: no headaches, no confusion Psychiatric: no anxiety, no depression Exam - Constitutional Vitals: Temp Pulse Resp BP Pulse Ox 98.2 F 90 25 H 146/102 98 08/23/19 20:49 08/23/19 20:57 08/23/19 20:56 08/23/19 20:57 08/23/19 20:49 General appearance: Present: no acute distress, well-nourished - EENT Eyes: Present: PERRL, EOM intact. Absent: scleral icterus ENT: hearing intact, clear oral mucosa, dentition normal - Neck Neck: Present: supple - Respiratory Respiratory effort: normal Respiratory: bilateral: CTA - Cardiovascular Rhythm: regular Heart Sounds: Present: S1 & S2. Absent: gallop, systolic murmur, diastolic murmur, rub - Extremities Extremities: no ischemia, pulses intact, pulses symmetrical, No edema, Full ROM Peripheral Pulses: within normal limits - Abdominal General gastrointestinal: Present: soft, non-tender, non-distended, normal bowel sounds. Absent: mass - Integumentary Integumentary: Present: clear, warm, dry. Absent: jaundice, rash - Musculoskeletal Musculoskeletal: strength equal bilaterally - Psychiatric Psychiatric: appropriate mood/affect, intact judgment & insight, memory intact, cooperative - Neurologic Neurologic: CNII-XII intact, moves all extremities HEART Score - HEART Score Troponin: Troponin T < 0.010 ng/mL (0.00-0.029) 08/23/19 20:51 Results - Labs CBC & Chem 7: 08/23/19 19:04 08/23/19 19:04 Labs: Abnormal lab results 08/23/19 08/23/19 08/23/19 Range/Units 19:04 19:04 20:51 Hgb 9.6 L (11.8-15.2) gm/dl Hct 29.8 L (35.5-45.6) % MCV 79 L (84-94) fl MCH 25 L (28-32) pg RDW 20.5 H (13.2-15.2) % Plt Count 442 H (140-440) K/mm3 [place] % (Auto) 10.8 H (0.0-7.3) % D-Dimer 425.09 H (0-234) ng/mlDDU Carbon Dioxide 31 H (22-30) mmol/L Calcium 7.6 L (8.4-10.2) mg/dL Albumin 3.7 L (3.9-5) g/dL Assessment and Plan - Patient Problems (1) Chest pain Current Visit: Yes Status: Acute Plan to address problem: Patient admitted and placed on telemetry. Will check serial cardiac enzymes. Patient will be scheduled for echocardiogram and stress test in the a.m. He has been placed on aspirin, sublingual nitroglycerin and IV morphine as needed for chest pain. Will monitor EKG and will continue to trend serial cardiac enzymes. (2) Cocaine abuse Current Visit: No Status: Acute Plan to address problem: Patient counseled on quitting cocaine abuse. (3) Hypertension Current Visit: No Status: Acute Plan to address problem: We will continue patient on his routine antihypertensive. Will monitor vitals closely. (4) HIV (human immunodeficiency virus infection) Current Visit: No Status: Acute Plan to address problem: CD4 count unknown. We will continue patient on his routine home medications. (5) DVT prophylaxis Current Visit: No Status: Acute Plan to address problem: Patient placed on subcutaneous heparin. (6) Full code status Current Visit: No Status: Acute
[2019-08-24 06:51] LABS: Calcium 7.3 mg/dL (8.4-10.2)
[2019-08-24 06:52] LABS: Chol/HDL Ratio 1.68 %
[2019-08-24 07:50] LABS: Hematocrit 27.9 % (35.5-45.6); Hemoglobin 8.8 gm/dl (11.8-15.2); Mean Corpuscular HGB Conc 31 % (32-34); Mean Corpuscular Volume 77 fl (84-94); Platelet Count 414 K/mm3 (140-440); Red Blood Count 3.64 M/mm3 (3.65-5.03); Red Cell Distribution Width 18.9 % (13.2-15.2)
[2019-08-24] MEDS ORDERED: REGADENOSON 0.4 MG/5 ML INJ IV ONE ×2 (10:25→10:34)
--- NOTE | 2019-08-24 11:36 | Consultation ---
History of Present Illness Consult date: 08/24/19 Requesting physician: RONA KINCAID Consult reason: chest pain History of present illness: The pt is a 63-year-old male with a past medical history of HIV, COPD, tobacco use, PE in the past. He has been seen by our practice on prior hospitalization. He presented with c/o chest pain for the past several days. He describes his chest pain as a sharp, midsternal intermittent pain with no clear aggravating or alleviating factors. He reports associated shortness of breath. He denies any palpitations, n/v, diaphoresis, dizziness or syncope. Patient admits to using cocaine about a week ago. Evaluation in the emergency room did not reveal any significant findings except for positive cocaine in the UDS. Pt was ordered st ress test overnight and is evaluated in stress lab. No current complaints on evaluation. Stress MPI done 07/2018 was negative. tte done 06/2019 showed EF 60-65%, impaired relaxation. Past History Past Medical History: COPD, GERD, hypertension, hyperlipidemia, pulmonary embolism, other (Chronic back pain, history of HIV CD4 count unknown) Past Surgical History: No surgical history Social history: smoking (Current every day smoker), other (This cocaine occasionally. Last use was about a week ago) Family history: no significant family history Medications and Allergies Allergies Allergy/AdvReac Type Severity Reaction Status Date / Time No Known Allergies Allergy Verified 04/27/19 00:01 Home Medications Medication Instructions Recorded Confirmed Last Taken Type clonazePAM [Klonopin] 1 mg PO HS 08/23/19 08/23/19 Unknown History traZODone 50 mg PO HS 08/23/19 08/23/19 Unknown History Active Meds: Active Medications Acetaminophen (Tylenol) 650 mg PO Q4H PRN PRN Reason: Pain MILD(1-3)/Fever >100.5/KOENIG Aspirin (Ecotrin) 325 mg PO QDAY NADIA Heparin Sodium (Porcine) (Heparin) 5,000 unit SUB-Q Q8HR NADIA Hydralazine HCl (Apresoline) 10 mg IV Q6H PRN PRN Reason: FOR SBP > target Magnesium Hydroxide (Milk Of Magnesia) 30 ml PO Q4H PRN PRN Reason: Constipation Morphine Sulfate (Morphine) 2 mg IV Q5MIN PRN PRN Reason: Chest Pain unrelieved by NTG Last Admin: 08/24/19 02:28 Dose: 2 mg Documented by: Nitroglycerin (Nitrostat) 0.4 mg SL Q5M PRN PRN Reason: Chest Pain Ondansetron HCl (Zofran) 4 mg IV Q8H PRN PRN Reason: Nausea And Vomiting Sodium Chloride (Sodium Chloride Flush Syringe 10 Ml) 10 ml IV BID NADIA Sodium Chloride (Sodium Chloride Flush Syringe 10 Ml) 10 ml IV PRN PRN PRN Reason: LINE FLUSH Last Admin: 08/24/19 02:29 Dose: 10 ml Documented by: Review of Systems Constitutional: no weight loss, no weight gain, no fever, no chills, no sweats Ears, nose, mouth and throat: no ear pain, no nose pain, no sinus pressure, no sinus pain Cardiovascular: chest pain, shortness of breath, high blood pressure, no orthopnea, no palpitations, no rapid/irregular heart beat, no edema, no syncope, no lightheadedness, no dyspnea on exertion, no leg edema Respiratory: shortness of breath, no cough, no congestion, no wheezing, no pain on inspiration Gastrointestinal: no abdominal pain, no nausea, no vomiting, no diarrhea, no constipation, no change in bowel habits Genitourinary Male: no dysuria, no hematuria, no flank pain, no discharge, no urinary frequency, no urinary hesitancy Musculoskeletal: no neck stiffness, no neck pain, no shooting arm pain, no arm numbness/tingling, no low back pain, no shooting leg pain Integumentary: no rash, no pruritis, no redness, no sores, no wounds Neurological: no head injury, no paralysis, no weakness, no parathesias, no numbness, no tingling, no seizures, no syncope Psychiatric: no anxiety Endocrine: no cold intolerance, no heat intolerance Hematologic/Lymphatic: no easy bruising, no easy bleeding Allergic/Immunologic: no urticaria Physical Examination Vital Signs Temp Pulse Resp BP Pulse Ox 98.1 F 98 H 20 145/81 94 08/23/19 18:00 08/23/19 18:00 08/23/19 18:00 08/23/19 18:00 08/23/19 18:00 General appearance: no acute distress HEENT: Positive: PERRL, Normocephaly, Mucus Membranes Moist Neck: Positive: neck supple, trachea midline Cardiac: Positive: Reg Rate and Rhythm, S1/S2 Lungs: Positive: Decreased Breath Sounds Neuro: Positive: Grossly Intact Abdomen: Negative: Tender Skin: Negative: Rash Musculoskeletal: No Pain Extremities: Absent: edema Results 08/24/19 05:22 08/24/19 05:22 Cardiac Enzymes 08/23/19 Range/Units 19:04 AST 17 (5-40) units/L Lipids 08/24/19 Range/Units 05:22 Triglycerides 38 (2-149) mg/dL Cholesterol 175 (50-199) mg/dL HDL Cholesterol 104 H (40-59) mg/dL Cholesterol/HDL Ratio 1.68 % CBC 08/23/19 08/24/19 Range/Units 19:04 05:22 WBC 6.6 5.9 (4.5-11.0) K/mm3 RBC 3.79 3.64 L (3.65-5.03) M/mm3 Hgb 9.6 L 8.8 L (11.8-15.2) gm/dl Hct 29.8 L 27.9 L (35.5-45.6) % Plt Count 442 H 414 (140-440) K/mm3 Lymph # 1.2 (1.2-5.4) K/mm3 [place] # 0.7 (0.0-0.8) K/mm3 Eos # 0.1 (0.0-0.4) K/mm3 Baso # 0.0 (0.0-0.1) K/mm3 Comprehensive Metabolic Panel 08/23/19 08/24/19 Range/Units 19:04 05:22 Sodium 142 141 (137-145) mmol/L Potassium 4.2 4.2 (3.6-5.0) mmol/L Chloride 99.8 98.2 (98-107) mmol/L Carbon Dioxide 31 H 35 H (22-30) mmol/L BUN 19 17 (9-20) mg/dL Creatinine 1.4 1.4 (0.8-1.5) mg/dL Glucose 87 104 H (75-100) mg/dL Calcium 7.6 L 7.3 L (8.4-10.2) mg/dL AST 17 (5-40) units/L ALT 16 (7-56) units/L Alkaline Phosphatase 73 (35-129) units/L Total Protein 7.9 (6.3-8.2) g/dL Albumin 3.7 L (3.9-5) g/dL - Imaging and Cardiology Echo: report reviewed (06/2019 showed EF 60-65%, impaired relaxation. ) EKG: report reviewed, image reviewed EKG interpretations - Telemetry EKG Rhythm: Sinus Rhythm - EKG Sinus rhythms and dysrhythmias: sinus rhythm Assessment and Plan DDimer elevated - chest CTA negative for PE, no significant findings. AMI r/o. Chest pain currently resolved. S/p lexiscan MPI stress test today which was negative for ischemia. Currently stable cardiac status. Pt may discharge from cardiology standpoint. Recommend pt follow up in our office with Dr. Gavino Jovel within 1-2 weeks ([phone]). The patient has been seen in conjunction with Dr. Gavino Jovel who agrees with the assessment and plan of care. - Patient Problems (1) Chest pain Current Visit: Yes Status: Resolved (2) Hypertension Current Visit: Yes Status: Chronic (3) COPD (chronic obstructive pulmonary disease) Current Visit: Yes Status: Chronic (4) Tobacco use Current Visit: Yes Status: Chronic (5) Cocaine abuse Current Visit: Yes Status: Acute (6) HIV (human immunodeficiency virus infection) Current Visit: Yes Status: Chronic (7) History of pulmonary embolism Current Visit: Yes Status: Chronic (8) Anemia Current Visit: Yes Status: Chronic Qualifiers: Anemia type: unspecified type Qualified Code(s): D64.9 - Anemia, unspecified
[2019-08-24 11:45] VITALS: BP 146/90
--- NOTE | 2019-08-24 13:01 | Discharge Summary ---
Providers - Providers Date of Admission: 08/24/19 00:56 Date of discharge: 08/24/19 Attending physician: SUE LEON 08/24/19 Consult to Cardiac Rehabilitation [CONS] Routine Reason For Exam: Phase I 08/24/19 01:20 Consult to Cardiology [CONS] Routine Consulting Provider: EMELYN LÓPEZ Reason For Exam: CHEST PAIN Primary care physician: AUTOMOTIVE PAINT TECHNICIAN Hospitalization Condition: Fair Hospital course: The pt is a 63-year-old male with a past medical history of HIV, COPD, tobacco use, PE in the past presented with c/o chest pain for the past several days. Patient was evaluated in the ER, initial cardiac enzyme and EKG was unremarkable, chest x-ray showed no infiltrates. Patient was admitted and underwent myocardial stress test which was normal. Patient was then discharged home in stable condition with outpatient follow-up. Discharge diagnosis: (1) Chest pain, atypical Current Visit: Yes Status: Resolved Could be cocaine induced versus GERD DDimer elevated - chest CTA negative for PE, no significant findings. S/p lexiscan MPI stress test today which was negative for ischemia. tte done 06/2019 showed EF 60-65%, impaired relaxation. (2) Hypertension Current Visit: Yes Status: Chronic (3) COPD (chronic obstructive pulmonary disease) Current Visit: Yes Status: Chronic (4) Tobacco use Current Visit: Yes Status: Chronic (5) Cocaine abuse Current Visit: Yes Status: Acute (6) HIV (human immunodeficiency virus infection) Current Visit: Yes Status: Chronic (7) History of pulmonary embolism Current Visit: Yes Status: Chronic (8) Anemia Current Visit: Yes Status: Chronic Qualifiers: Anemia type: unspecified type Qualified Code(s): D64.9 - Anemia, unspecified Physical exam: GENERAL: well-developed -[place] male lying on bed appeared to be in no discomfort. HEENT: Normocephalic. Atraumatic. No conjunctival congestion or icterus. Patient has moist mucous membranes. NECK: Supple. Trachea midline. CHEST/LUNGS: Clear to auscultated bilaterally, breathing nonlabored. No wheezes crackles or rhonchi. HEART/CARDIOVASCULAR: Regular in rate and rhythm. S1 and S2 positive. ABDOMEN: Abdomen is soft, nontender. Patient has normal bowel sounds. SKIN: There is no rash. Warm and dry. NEURO: No focal motor deficit. Follows command. MUSCULOSKELETAL: No joint effusion or tenderness. EXTRIMITY: No edema, no cyanosis or clubbing. PSYCH: Cooperative. Disposition: DC-01 TO HOME OR SELFCARE Core Measure Documentation - Palliative Care Palliative Care/ Comfort Measures: Not Applicable - Core Measures Any of the following diagnoses?: none Exam - Constitutional Vitals: Temp Pulse Resp BP Pulse Ox 98.4 F 90 18 146/90 99 08/24/19 07:27 08/24/19 04:19 08/24/19 07:27 08/24/19 10:38 08/24/19 12:42 Plan Activity: advance as tolerated Weight Bearing Status: Weight Bear as Tolerated Diet: low fat, low salt Follow up with: PRIMARY CARE, [Primary Care Provider] - 3-5 Days Prescriptions: Pantoprazole [Protonix] 40 mg PO QDAY #30 tablet
[2019-08-24] MEDS ORDERED: HEPARIN 5,000 UNIT/1 ML VIAL SUB-Q SCH (14:00)
[2019-08-24 15:05] LABS: Band Neutrophils # (Manual) 0.1 K/mm3; Basophils % (Manual) 0 % (0.0-1.8); Myelocytes # (Manual) 0.1 K/mm3; Total Cells Counted 100
[2019-08-24 15:06] LABS: Hypochromasia 1+; Ovalocytes Few; Platelet Estimate Consistent w Auto
[2019-08-25] MEDS ORDERED: ASPIRIN EC 325 MG TAB PO SCH (10:00)
--- NOTE | 2019-08-25 15:01 | Treadmill Report ---
REFERRING PHYSICIAN: Hospitalist service. PROTOCOL: The patient was assessed in a postabsorptive state, given 10 mCi of technetium 99m at of rest. Imaging was performed. Lexiscan stress test performed via standard protocol. At peak stress, the patient was given 26 mCi of technetium 99m. Shortly thereafter, the patient underwent stress imaging. Raw imaging reveals mild GI artifact, no significant motion artifact. SPECT images examined carefully in horizontal long axis, vertical long axis, short axis views. There is normal mitral uptake of radioisotope in all parts segments. No evidence of significant fixed or reversible perfusion defect suggestive of prior infarction or ischemia. Gated wall motion reveals mild global left ventricular hypokinesis. Estimated ejection fraction of 45%, no TID. CONCLUSIONS: 1. Normal myocardial perfusion scan without evidence of active ischemia or prior infarction. 2. Mild global left ventricular hypokinesis estimated at 45% without evidence of stress-induced segmental wall motion abnormalities or transient ischemic dilation. JOB# [id number] JAMAL/MALORIE
== END 2019-08-24 17:40 | disposition home or self-care (01) ==
LOC: ED 17:37 → 4A 08-24 00:56
PROVIDERS: ADMIT Internal Medicine Geriatric Medicine; ATTEND Internal Medicine
DX: R07.89 Other chest pain (principal); I10 Essential (primary) hypertension; J44.9 Chronic obstructive pulmonary disease, unspecified; K21.9 Gastro-esophageal reflux disease without esophagitis; E78.5 Hyperlipidemia, unspecified; D64.9 Anemia, unspecified; G89.29 Other chronic pain; M54.9 Dorsalgia, unspecified; F14.10 Cocaine abuse, uncomplicated; F17.200 Nicotine dependence, unspecified, uncomplicated; Z86.711 Personal history of pulmonary embolism; Z79.899 Other long term (current) drug therapy
CPT/HCPCS: 36415; 71046; 71275; 78452; 80048; 80053; 80061; 80307; 81001; 83880; 84484; 85007; 85025; 85379; 93005; 93017; 94760; 96374; 96375; 99285; A9502; G0378; J2270; J2405; J2785; J3010; Q9967

== ENCOUNTER 2019-09-04 04:28 | Inpatient (IN) | payer SELFPAY ==
[2019-09-04 05:41] LABS: Basophils % (Auto) 0.6 % (0.0-1.8); Eosinophils # (Auto) 0.1 K/mm3 (0.0-0.4); Eosinophils % (Auto) 1.8 % (0.0-4.3); Hematocrit 29.3 % (35.5-45.6); Hemoglobin 9.1 gm/dl (11.8-15.2); Lymphocytes % (Auto) 15.5 % (13.4-35.0); Mean Corpuscular HGB Conc 31 % (32-34); Mean Corpuscular Volume 76 fl (84-94); Monocytes # (Auto) 0.9 K/mm3 (0.0-0.8); Monocytes % (Auto) 13.8 % (0.0-7.3); Platelet Count 360 K/mm3 (140-440); Red Blood Count 3.85 M/mm3 (3.65-5.03); Red Cell Distribution Width 18.9 % (13.2-15.2)
[2019-09-04 05:56] LABS: BUN/Creatinine Ratio 9; Blood Urea Nitrogen 15 mg/dL (9-20); Hemolysis Index 0
--- NOTE | 2019-09-04 06:25 | Emergency Department Report ---
ED Shortness of Breath HPI - General Chief Complaint: Dyspnea/Respdistress Stated Complaint: CHEST PAIN/RICKY Time Seen by Provider: 09/04/19 06:16 Source: patient Mode of arrival: Ambulatory Limitations: Other - History of Present Illness Initial Comments: Discharge diagnosis: (1) Chest pain, atypical Current Visit: Yes Status: Resolved Could be cocaine induced versus GERD DDimer elevated - chest CTA negative for PE, no significant findings. S/p lexiscan MPI stress test today which was negative for ischemia. tte done 06/2019 showed EF 60-65%, impaired relaxation. (2) Hypertension Current Visit: Yes Status: Chronic (3) COPD (chronic obstructive pulmonary disease) Current Visit: Yes Status: Chronic (4) Tobacco use Current Visit: Yes Status: Chronic (5) Cocaine abuse Current Visit: Yes Status: Acute (6) HIV (human immunodeficiency virus infection) Current Visit: Yes Status: Chronic (7) History of pulmonary embolism Current Visit: Yes Status: Chronic (8) Anemia Current Visit: Yes Status: Chronic Qualifiers: Anemia type: unspecified type Qualified Code(s): D64.9 - Anemia, unspecified - Related Data Home Medications Medication Instructions Recorded Confirmed Last Taken clonazePAM [Klonopin] 1 mg PO HS 08/23/19 08/23/19 Unknown traZODone 50 mg PO HS 08/23/19 08/23/19 Unknown Previous Rx's Medication Instructions Recorded Last Taken Type ALBUTEROL NEB's [Proventil 0.083% 2.5 mg IH TID PRN #30 neb 08/24/19 Unknown Rx NEBS] Pantoprazole [Protonix] 40 mg PO QDAY #30 tablet 08/24/19 Unknown Rx Allergies Allergy/AdvReac Type Severity Reaction Status Date / Time No Known Allergies Allergy Verified 04/27/19 00:01 ED Review of Systems ROS: Stated complaint: CHEST PAIN/RICKY Other details as noted in HPI ED Past Medical Hx - Past Medical History Previous Medical History?: Yes Hx Hypertension: Yes Hx Pulmonary Embolism: Yes (was on blood thinner at one time pt states taken off them) Hx Asthma: Yes Hx COPD: Yes Hx HIV: Yes Additional medical history: Elevated Cholesterol & Chronic back pain. - Surgical History Past Surgical History?: No - Social History Smoking Status: Current Every Day Smoker Substance Use Type: None, Cocaine - Medications Home Medications: Home Medications Medication Instructions Recorded Confirmed Last Taken Type clonazePAM [Klonopin] 1 mg PO HS 08/23/19 08/23/19 Unknown History traZODone 50 mg PO HS 08/23/19 08/23/19 Unknown History ALBUTEROL NEB's [Proventil 0.083% 2.5 mg IH TID PRN #30 neb 08/24/19 Unknown Rx NEBS] Pantoprazole [Protonix] 40 mg PO QDAY #30 tablet 08/24/19 Unknown Rx ED Physical Exam - General Limitations: Other ED Course Vital Signs 09/04/19 09/04/19 04:44 05:00 Temperature 98.2 F Pulse Rate 83 80 Respiratory 22 25 H Rate Blood Pressure 125/81 155/83 O2 Sat by Pulse 100 100 Oximetry ED Medical Decision Making - Lab Data Result diagrams: 09/04/19 05:20 09/04/19 05:20 Laboratory Results - last 24 hr 09/04/19 09/04/19 05:20 05:20 WBC 6.4 RBC 3.85 Hgb 9.1 L Hct 29.3 L MCV 76 L MCH 24 L MCHC 31 L RDW 18.9 H Plt Count 360 Lymph % (Auto) 15.5 [place] % (Auto) 13.8 H Eos % (Auto) 1.8 Baso % (Auto) 0.6 Lymph # 1.0 L [place] # 0.9 H Eos # 0.1 Baso # 0.0 Seg Neutrophils % 68.3 Seg Neutrophils # 4.4 Sodium 142 Potassium 4.9 Chloride 105.2 Carbon Dioxide 26 Anion Gap 16 BUN 15 Creatinine 1.6 H Estimated GFR 44 BUN/Creatinine Ratio 9 Glucose 119 H Calcium 8.0 L Troponin T < 0.010 Critical care attestation.: If time is entered above; I have spent that time in minutes in the direct care of this critically ill patient, excluding procedure time. ED Disposition Condition: Stable Referrals: BRINA GARCIA MD [Primary Care Provider] - 3-5 Days
--- NOTE | 2019-09-04 06:42 | XRay Report ---
CHEST 1 VIEW 09/04/2019 5:25 AM INDICATION / CLINICAL INFORMATION: Chest Pain. COMPARISON: 08/23/2019 FINDINGS: SUPPORT DEVICES: None. HEART / MEDIASTINUM: No significant abnormality. LUNGS / PLEURA: No significant pulmonary or pleural abnormality. No pneumothorax. ADDITIONAL FINDINGS: No significant additional findings. IMPRESSION: 1. No acute findings. Signer Name: Narendra Torres MD Signed: 09/04/2019 6:37 AM Workstation Name: [id number]
[2019-09-04] MEDS ORDERED: AZITHROMYCIN 500 MG in SODIUM CHLORIDE 0.9% 250ML 250 ML IV ONE (07:00)
[2019-09-04] MEDS ORDERED: methylPREDNISolone Sod Succinate 125 MG/2 ML INJ IV ONE (07:44)
[2019-09-04] MEDS ORDERED: MAGNESIUM SULFATE 2 GM/50 ML BAG IV ONE (07:44)
--- NOTE | 2019-09-04 07:44 | Emergency Department Report ---
ED Chest Pain HPI - General Chief Complaint: Dyspnea/Respdistress Stated Complaint: CHEST PAIN/RICKY Time Seen by Provider: 09/04/19 06:16 Source: patient Mode of arrival: Ambulatory Limitations: Other - History of Present Illness Initial Comments: This is a 63-year-old man who has multiple medical comorbidities to include COPD hypertension and asthma. He does have a history of pulmonary embolism. He has had multiple previous CTAs to rule out pulmonary embolism the last 1 was the end of July which was negative. He was admitted here for atypical chest pain at that time. See following discharge summary. The patient states that at about 10:00 last night he developed chest pain which was anterior in his chest and associated with shortness of breath. He had no cough. He states he has not been exposed to anyone with coronavirus. EMS was summoned. He was given albuterol. I do not know if he was given Solu-Medrol and magnesium. This has been ordered. He was found to have a room air pulse oximetry of 83%. He is again noncompliant with his HIV meds, etc. At the time of my encounter the patient states that the chest pain is resolved. He is resting comfortably. He is not short of breath. His pulse oximetry has been measured at 100% on room air. Discharge diagnosis: (1) Chest pain, atypical Current Visit: Yes Status: Resolved Could be cocaine induced versus GERD DDimer elevated - chest CTA negative for PE, no significant findings. S/p lexiscan MPI stress test today which was negative for ischemia. tte done 06/2019 showed EF 60-65%, impaired relaxation. (2) Hypertension Current Visit: Yes Status: Chronic (3) COPD (chronic obstructive pulmonary disease) Current Visit: Yes Status: Chronic (4) Tobacco use Current Visit: Yes Status: Chronic (5) Cocaine abuse Current Visit: Yes Status: Acute (6) HIV (human immunodeficiency virus infection) Current Visit: Yes Status: Chronic (7) History of pulmonary embolism Current Visit: Yes Status: Chronic (8) Anemia Current Visit: Yes Status: Chronic Qualifiers: Anemia type: unspecified type Qualified Code(s): D64.9 - Anemia, unspecified - Related Data MD Complaint: chest pain -: Sudden Onset: during rest Pain Location: substernal Pain Radiation: none Severity: moderate Quality: sharp Consistency: now resolved Improves With: nothing Worsens With: nothing re: dyspnea. denies: nausea, vomting, diaphoresis Other Symptoms: denies: cough, fever, syncope Treatments Prior to Arrival: none Aspirin use within the Past 7 Days: (0) No - Related Data On Oral Contraceptives: No Home Medications Medication Instructions Recorded Confirmed Last Taken clonazePAM [Klonopin] 1 mg PO HS 08/23/19 08/23/19 Unknown traZODone 50 mg PO HS 08/23/19 08/23/19 Unknown Previous Rx's Medication Instructions Recorded Last Taken Type ALBUTEROL NEB's [Proventil 0.083% 2.5 mg IH TID PRN #30 neb 08/24/19 Unknown Rx NEBS] Pantoprazole [Protonix] 40 mg PO QDAY #30 tablet 08/24/19 Unknown Rx Allergies Allergy/AdvReac Type Severity Reaction Status Date / Time No Known Allergies Allergy Verified 04/27/19 00:01 Heart Score - HEART Score History: Slightly suspicious EKG: Non-specific Age: 45-65 Risk factors: > 3 risk factors or hx of atherosclerotic disease Troponin: < normal limit HEART Score: 4 - Critical Actions Critical Actions: 4-6 pts:12-16.6% risk of adverse cardiac event. Should be admitted ED Review of Systems ROS: Stated complaint: CHEST PAIN/RICKY Other details as noted in HPI Constitutional: denies: chills, fever Eyes: denies: eye pain, eye discharge, vision change ENT: denies: ear pain, throat pain Respiratory: shortness of breath. denies: cough, wheezing Cardiovascular: chest pain. denies: palpitations Endocrine: no symptoms reported Gastrointestinal: denies: abdominal pain, nausea, diarrhea Genitourinary: denies: urgency, dysuria Musculoskeletal: denies: back pain, joint swelling, arthralgia Skin: denies: rash, lesions Neurological: denies: headache, weakness, paresthesias Psychiatric: denies: anxiety, depression Hematological/Lymphatic: denies: easy bleeding, easy bruising ED Past Medical Hx - Past Medical History Previous Medical History?: Yes Hx Hypertension: Yes Hx Pulmonary Embolism: Yes (was on blood thinner at one time pt states taken off them) Hx Asthma: Yes Hx COPD: Yes Hx HIV: Yes Additional medical history: Elevated Cholesterol & Chronic back pain. - Surgical History Past Surgical History?: No - Social History Smoking Status: Current Every Day Smoker Substance Use Type: None, Cocaine - Medications Home Medications: Home Medications Medication Instructions Recorded Confirmed Last Taken Type clonazePAM [Klonopin] 1 mg PO HS 08/23/19 08/23/19 Unknown History traZODone 50 mg PO HS 08/23/19 08/23/19 Unknown History ALBUTEROL NEB's [Proventil 0.083% 2.5 mg IH TID PRN #30 neb 08/24/19 Unknown Rx NEBS] Pantoprazole [Protonix] 40 mg PO QDAY #30 tablet 08/24/19 Unknown Rx ED Physical Exam - General Limitations: Other General appearance: alert, in no apparent distress - Head Head exam: Present: atraumatic, normocephalic - Eye Eye exam: Present: normal appearance. Absent: scleral icterus - ENT ENT exam: Present: mucous membranes moist - Neck Neck exam: Present: normal inspection - Respiratory Respiratory exam: Present: normal lung sounds bilaterally. Absent: respiratory distress - Cardiovascular Cardiovascular Exam: Present: regular rate, normal rhythm. Absent: systolic murmur, diastolic murmur, rubs, gallop - GI/Abdominal GI/Abdominal exam: Present: soft, normal bowel sounds. Absent: distended, tenderness, guarding, rebound - Rectal Rectal exam: Present: deferred - Extremities Exam Extremities exam: Present: normal inspection - Back Exam Back exam: Present: normal inspection - Neurological Exam Neurological exam: Present: alert, oriented X3 - Psychiatric Psychiatric exam: Present: normal affect, normal mood - Skin Skin exam: Present: warm, dry, intact, normal color. Absent: rash ED Course Vital Signs 09/04/19 09/04/19 04:44 05:00 Temperature 98.2 F Pulse Rate 83 80 Respiratory 22 25 H Rate Blood Pressure 125/81 155/83 O2 Sat by Pulse 100 100 Oximetry - Reevaluation(s) Reevaluation #1: Patient with COPD and hypoxia. Also complaining of chest pain. His sats have improved. He is clinically stable. He will be admitted to the hospital for further care and evaluation. 09/04/19 08:02 GUIDO score - Guido Score Age > 65: (0) No Aspirin use within the Past 7 Days: (0) No 3 or more CAD Risk Factors: (0) No 2 or more Angina events in past 24 hrs: (1) Yes Known CAD with more than 50% Stenosis: (0) No Elevated Cardiac Markers: (0) No ST Deviation Greater than 0.5mm: (0) No GUIDO Score: 1 ED Medical Decision Making - Lab Data Result diagrams: 09/04/19 05:20 09/04/19 05:20 Laboratory Results - last 24 hr 09/04/19 09/04/19 05:20 05:20 WBC 6.4 RBC 3.85 Hgb 9.1 L Hct 29.3 L MCV 76 L MCH 24 L MCHC 31 L RDW 18.9 H Plt Count 360 Lymph % (Auto) 15.5 [place] % (Auto) 13.8 H Eos % (Auto) 1.8 Baso % (Auto) 0.6 Lymph # 1.0 L [place] # 0.9 H Eos # 0.1 Baso # 0.0 Seg Neutrophils % 68.3 Seg Neutrophils # 4.4 Sodium 142 Potassium 4.9 Chloride 105.2 Carbon Dioxide 26 Anion Gap 16 BUN 15 Creatinine 1.6 H Estimated GFR 44 BUN/Creatinine Ratio 9 Glucose 119 H Calcium 8.0 L Troponin T < 0.010 - EKG Data -: EKG Interpreted by Pr EKG shows normal: sinus rhythm, axis, intervals, QRS complexes, ST-T waves - EKG Data Interpretation: other (Low voltage standard leads) - Radiology Data Radiology results: report reviewed (No acute findings, chronic changes), image reviewed Critical care attestation.: If time is entered above; I have spent that time in minutes in the direct care of this critically ill patient, excluding procedure time. ED Disposition Clinical Impression: COPD exacerbation, Hypoxia, Medical non-compliance Chest pain Qualifiers: Chest pain type: unspecified Qualified Code(s): R07.9 - Chest pain, unspecified HIV (human immunodeficiency virus infection) Qualifiers: HIV symptom status: asymptomatic Qualified Code(s): Z21 - Asymptomatic human immunodeficiency virus [HIV] infection status Disposition: OP ADMIT IP TO THIS HOSP Is pt being admited?: Yes Does the pt Need Aspirin: Yes Condition: Stable Instructions: Chest Pain (ED), Chronic Obstructive Pulmonary Disease (ED) Referrals: BRINA GARCIA MD [Primary Care Provider] - 3-5 Days Time of Disposition: 08:37
[2019-09-04] MEDS ORDERED: SODIUM CHLORIDE 0.9% 1000 ML 1,000 ML IV ONE (07:58)
[2019-09-04] MEDS ORDERED: ASPIRIN 325 MG TAB PO ONE (08:38)
[2019-09-04 08:45] LABS: C-Reactive Protein 0.5 mg/dL (0.00-1.30)
[2019-09-04] MEDS ORDERED: IPRATROPIUM/ALBUTEROL SULFATE 3 ML AMPUL.NEB IH ONE ×2 (12:19→12:29)
--- NOTE | 2019-09-04 12:45 | History and Physical Report ---
History of Present Illness Date of examination: 09/04/19 Date of admission: 09/04/19 09:28 Chief complaint: Increasing shortness of breath since yesterday History of present illness: History of Present Illness 63-year-old male with history of COPD hypertension, HIV and asthma comes in for increasing shortness of breath since yesterday morning. No relief with his inhalers. Cough productive of mucoid sputum. No fever or chills. Patient had some chest pain last night which resolved immediately. Patient had a chest pain work-up in July which was negative for Lexiscan and a and his echo was normal with ejection fraction of 60 to 65%. Last admission was reviewed from August to July 2019 where he was admitted for chest pain and hypertension and COPD and tobacco use and cocaine use and HIV. Patient is short of breath and was hypoxic initially in the emergency room. His oxygen saturation was 83% is improved to 93% with breathing treatments. Last admission from July reviewed - Past Medical History Previous Medical History?: Yes Hx Hypertension: Yes Hx Pulmonary Embolism: Yes (was on blood thinner at one time pt states taken off them) Hx Asthma: Yes Hx COPD: Yes Hx HIV: Yes0--not taking any medicines Additional medical history: Elevated Cholesterol & Chronic back pain. - Surgical History Past Surgical History?: No - Social History Smoking Status: Current Every Day Smoker Substance Use Type: None, Cocaine - Medications Home Medications: Home Medications Medication Instructions Recorded Confirmed Last Taken Type clonazePAM [Klonopin] 1 mg PO HS 08/23/19 08/23/19 Unknown History traZODone 50 mg PO HS 08/23/19 08/23/19 Unknown History ALBUTEROL NEB's [Proventil 0.083% 2.5 mg IH TID PRN #30 neb 08/24/19 Unknown Rx NEBS] Pantoprazole [Protonix] 40 mg PO QDAY #30 tablet 08/24/19 Unknown Rx Review of Systems ROS: Stated complaint: CHEST PAIN/RICKY Other details as noted in HPI Constitutional: denies: chills, fever Eyes: denies: eye pain, eye discharge, vision change ENT: denies: ear pain, throat pain Respiratory: shortness of breath. denies: cough, wheezing Cardiovascular: chest pain. denies: palpitations Endocrine: no symptoms reported Gastrointestinal: denies: abdominal pain, nausea, diarrhea Genitourinary: denies: urgency, dysuria Musculoskeletal: denies: back pain, joint swelling, arthralgia Skin: denies: rash, lesions Neurological: denies: headache, weakness, paresthesias Psychiatric: denies: anxiety, depression Hematological/Lymphatic: denies: easy bleeding, easy bruising Medications and Allergies Allergies Allergy/AdvReac Type Severity Reaction Status Date / Time No Known Allergies Allergy Verified 04/27/19 00:01 Home Medications Medication Instructions Recorded Confirmed Last Taken Type clonazePAM [Klonopin] 1 mg PO HS 08/23/19 09/04/19 Unknown History traZODone 50 mg PO HS 08/23/19 09/04/19 Unknown History ALBUTEROL NEB's [Proventil 0.083% 2.5 mg IH TID PRN #30 neb 08/24/19 09/04/19 Unknown Rx NEBS] Lisinopril [Zestril TAB] 2.5 mg PO QDAY 09/04/19 09/04/19 Unknown History Active Meds: Active Medications Sodium Chloride (Nacl 0.9% 1000 Ml) 1,000 mls @ 125 mls/hr IV ONCE ONE Stop: 09/04/19 15:57 Last Admin: 09/04/19 08:53 Dose: 125 mls/hr Documented by: Exam - Constitutional Vitals: Temp Pulse Resp BP Pulse Ox 98.2 F 82 27 H 128/81 100 09/04/19 04:44 09/04/19 10:53 09/04/19 10:53 09/04/19 10:53 09/04/19 10:53 General appearance: Present: no acute distress, mild distress, well-nourished - EENT Eyes: Present: PERRL ENT: hearing intact, clear oral mucosa - Neck Neck: Present: supple, normal ROM - Respiratory Respiratory effort: normal Respiratory: bilateral: CTA, diminished, rhonchi, wheezing - Cardiovascular Heart rate: 78 Rhythm: regular Heart Sounds: Present: S1 & S2. Absent: rub, click - Extremities Extremities: no ischemia, pulses intact, pulses symmetrical, No edema Peripheral Pulses: within normal limits - Abdominal General gastrointestinal: Present: soft, non-tender, non-distended, normal bowel sounds Male genitourinary: Present: normal - Rectal Rectal Exam: deferred - Integumentary Integumentary: Present: clear, warm, dry - Musculoskeletal Musculoskeletal: gait normal, strength equal bilaterally - Psychiatric Psychiatric: appropriate mood/affect, intact judgment & insight - Neurologic Neurologic: CNII-XII intact, moves all extremities - Allied Health Allied health notes reviewed: nursing, case management HEART Score - HEART Score EKG: Non-specific Age: 45-65 Risk factors: > 3 risk factors or hx of atherosclerotic disease Troponin: Troponin T < 0.010 ng/mL (0.00-0.029) 09/04/19 11:01 Troponin: < normal limit - Critical Actions Critical Actions: 4-6 pts:12-16.6% risk of adverse cardiac event. Should be admitted Results - Labs CBC & Chem 7: 09/04/19 05:20 09/04/19 07:11 Labs: Laboratory Last Values WBC 6.4 K/mm3 (4.5-11.0) 09/04/19 05:20 RBC 3.85 M/mm3 (3.65-5.03) 09/04/19 05:20 Hgb 9.1 gm/dl (11.8-15.2) L 09/04/19 05:20 Hct 29.3 % (35.5-45.6) L 09/04/19 05:20 MCV 76 fl (84-94) L 09/04/19 05:20 MCH 24 pg (28-32) L 09/04/19 05:20 MCHC 31 % (32-34) L 09/04/19 05:20 RDW 18.9 % (13.2-15.2) H 09/04/19 05:20 Plt Count 360 K/mm3 (140-440) 09/04/19 05:20 Lymph % (Auto) 15.5 % (13.4-35.0) 09/04/19 05:20 [place] % (Auto) 13.8 % (0.0-7.3) H 09/04/19 05:20 Eos % (Auto) 1.8 % (0.0-4.3) 09/04/19 05:20 Baso % (Auto) 0.6 % (0.0-1.8) 09/04/19 05:20 Lymph # 1.0 K/mm3 (1.2-5.4) L 09/04/19 05:20 [place] # 0.9 K/mm3 (0.0-0.8) H 09/04/19 05:20 Eos # 0.1 K/mm3 (0.0-0.4) 09/04/19 05:20 Baso # 0.0 K/mm3 (0.0-0.1) 09/04/19 05:20 Seg Neutrophils % 68.3 % (40.0-70.0) 09/04/19 05:20 Seg Neutrophils # 4.4 K/mm3 (1.8-7.7) 09/04/19 05:20 D-Dimer 513.32 ng/mlDDU (0-234) H 09/04/19 07:11 Sodium 142 mmol/L (137-145) 09/04/19 05:20 Potassium 4.9 mmol/L (3.6-5.0) 09/04/19 05:20 Chloride 105.2 mmol/L (98-107) 09/04/19 05:20 Carbon Dioxide 26 mmol/L (22-30) 09/04/19 05:20 Anion Gap 16 mmol/L 09/04/19 05:20 BUN 15 mg/dL (9-20) 09/04/19 05:20 Creatinine 1.6 mg/dL (0.8-1.5) H 09/04/19 05:20 Estimated GFR 44 ml/min 09/04/19 05:20 BUN/Creatinine Ratio 9 % 09/04/19 05:20 Glucose 114 mg/dL (75-100) H 09/04/19 07:11 Lactic Acid 0.90 mmol/L (0.7-2.0) 09/04/19 07:11 Calcium 8.0 mg/dL (8.4-10.2) L 09/04/19 05:20 Ferritin 12.9 ng/mL (13.0-400.0) L 09/04/19 07:11 Ferritin 14.2 ng/mL (13.0-400.0) 09/04/19 07:11 Lactate Dehydrogenase 305 units/L (91-180) H 09/04/19 07:11 Troponin T < 0.010 ng/mL (0.00-0.029) 09/04/19 11:01 C-Reactive Protein 0.50 mg/dL (0.00-1.30) 09/04/19 07:11 Procalcitonin < 0.05 ng/mL (<0.15) 09/04/19 07:11 Short CBC 09/04/19 Range/Units 05:20 WBC 6.4 (4.5-11.0) K/mm3 Hgb 9.1 L (11.8-15.2) gm/dl Hct 29.3 L (35.5-45.6) % Plt Count 360 (140-440) K/mm3 BMP 09/04/19 09/04/19 05:20 07:11 Sodium 142 Potassium 4.9 Chloride 105.2 Carbon Dioxide 26 BUN 15 Creatinine 1.6 H Glucose 119 H 114 H Calcium 8.0 L Cardiac Enzymes 09/04/19 09/04/19 Range/Units 05:20 11:01 Troponin T < 0.010 < 0.010 (0.00-0.029) ng/mL - Imaging and Cardiology Chest x-ray: report reviewed (No acute findings) [place]/IV: IV Catheter Type [Right Hand] INT / Saline Lock Assessment and Plan Advance Directives: Yes (Full code) VTE prophylaxis?: Chemical Plan of care discussed with patient/family: Yes - Patient Problems (1) Acute respiratory failure with hypoxia Current Visit: Yes Status: Acute Plan to address problem: Patient to get nebulizer treatments duo nebs PRN and [id number], IV Levaquin and IV Solu-Medrol at 40 mg every 8 hours Patient does not need BiPAP or intubation at this point of time (2) COPD exacerbation Current Visit: Yes Status: Acute Plan to address problem: Patient initiated on nebulizer treatments [id number] and as needed, IV with Solu-Medrol 40 mg every 8 and IV Levaquin 750 mg every 24 BiPAP and intubation if necessary Stable at this point (3) HIV (human immunodeficiency virus infection) Current Visit: Yes Status: Chronic Qualifiers: HIV symptom status: asymptomatic Qualified Code(s): Z21 - Asymptomatic human immunodeficiency virus [HIV] infection status Plan to address problem: Patient not taking any medication He wants to wait till he gets his Medicare card (4) Elevated d-dimer Current Visit: No Status: Acute Plan to address problem: No work-up necessary at this point Nonspecific elevation (5) Hypertension Current Visit: No Status: Chronic Qualifiers: Hypertension type: essential hypertension Qualified Code(s): I10 - Essential (primary) hypertension Plan to address problem: Continue antihypertensives Monitor blood pressure Adjust medications as necessary (6) Tobacco use Current Visit: No Status: Chronic Plan to address problem: Counseled about stopping smoking (7) Chest pain Current Visit: No Status: Inactive Qualifiers: Chest pain type: unspecified Qualified Code(s): R07.9 - Chest pain, unspecified Plan to address problem: Very nonspecific and resolved within 5 minutes Musculoskeletal Patient had Lexiscan and echocardiogram last month and was normal (8) DVT prophylaxis Current Visit: No Status: Acute Plan to address problem: Heparin 5000 every 12 and GI prophylaxis
[2019-09-04] MEDS ORDERED: ALBUTEROL 2.5 MG/3 ML NEBU IH PRN (12:49)
[2019-09-04] MEDS ORDERED: ACETAMINOPHEN 325 MG TAB PO PRN ×2 (12:50→13:59)
[2019-09-04] MEDS ORDERED: ONDANSETRON 4 MG/2 ML INJ IV PRN ×2 (12:50→13:59)
[2019-09-04] MEDS ORDERED: IPRATROPIUM/ALBUTEROL SULFATE 3 ML AMPUL.NEB IH PRN (12:53)
[2019-09-04] MEDS ORDERED: NON-FORMULARY EACH (Lisinopril [Zestril Tab] 2.5 MG) PO SCH (13:00)
[2019-09-04] MEDS ORDERED: SODIUM CHLORIDE 0.9% 1000 ML 1,000 ML IV SCH (13:00)
[2019-09-04] MEDS ORDERED: LISINOPRIL 5 MG TAB ONE ×2 (13:21→14:25)
[2019-09-04] MEDS ORDERED: DOCUSATE SODIUM 100 MG CAP ONE (13:21)
[2019-09-04] MEDS ORDERED: methylPREDNISolone Sod Succinate 40 MG/1 ML INJ ONE (13:21)
[2019-09-04] MEDS: DOCUSATE SODIUM 100 MG CAP PO SCH ×2 (13:43→21:43)
[2019-09-04] MEDS ORDERED: HYDROmorphone 1 MG/1 ML INJ IV PRN (13:59)
[2019-09-04] MEDS ORDERED: HEPARIN 5,000 UNIT/1 ML VIAL ONE (14:25)
[2019-09-04] MEDS: HEPARIN 5,000 UNIT/1 ML VIAL SUB-Q SCH ×2 (14:25→21:44)
[2019-09-04 17:38] LABS: Bilirubin,Urine NEG (Negative); Blood,Urine SM (Negative); Color,Urine Yellow (Yellow); Mucus,Urine FEW /HPF; Urobilinogen,Urine < 2.0 mg/dL (<2.0); WBC,Urine < 1.0 /HPF (0.0-6.0)
[2019-09-04 17:42] LABS: Amphetamine Screen,Urine PRESUMPTIVE NEGATIVE; Benzodiazepines Screen,Urine PRESUMPTIVE NEGATIVE; Cannabinoid Screen,Urine PRESUMPTIVE NEGATIVE; Cocaine Screen,Urine PRESUMPTIVE POSITIVE; Methadone Screen,Urine PRESUMPTIVE NEGATIVE; Opiate Screen,Urine PRESUMPTIVE NEGATIVE
[2019-09-04] MEDS: IPRATROPIUM/ALBUTEROL SULFATE 3 ML AMPUL.NEB IH SCH ×3 (18:54→21:59)
[2019-09-04] MEDS: methylPREDNISolone Sod Succinate 125 MG/2 ML INJ IV SCH (21:41)
[2019-09-04] MEDS: clonazePAM 0.5 MG TAB PO SCH (21:42)
[2019-09-04] MEDS: FAMOTIDINE 20 MG/2 ML INJ IV SCH (21:43)
[2019-09-04] MEDS: traZODone 50 MG TAB PO SCH (21:43)
[2019-09-04] MEDS ORDERED: NON-FORMULARY EACH (Trazodone 50 MG) PO SCH (22:00)
[2019-09-04] MEDS ORDERED: NON-FORMULARY EACH (Clonazepam [Klonopin] 1 MG) PO SCH (22:00)
[2019-09-05] MEDS: methylPREDNISolone Sod Succinate 125 MG/2 ML INJ IV SCH ×3 (04:57→21:33)
[2019-09-05 08:09] LABS: Basophils % (Auto) 0.1 % (0.0-1.8); Hematocrit 26.5 % (35.5-45.6); Hemoglobin 8.3 gm/dl (11.8-15.2); Lymphocytes # (Auto) 0.4 K/mm3 (1.2-5.4); Lymphocytes % (Auto) 11.3 % (13.4-35.0); Mean Corpuscular HGB Conc 32 % (32-34); Mean Corpuscular Volume 75 fl (84-94); Monocytes # (Auto) 0.1 K/mm3 (0.0-0.8); Monocytes % (Auto) 3.8 % (0.0-7.3); Platelet Count 292 K/mm3 (140-440); Red Blood Count 3.52 M/mm3 (3.65-5.03); Red Cell Distribution Width 18.5 % (13.2-15.2)
[2019-09-05] MEDS: IPRATROPIUM/ALBUTEROL SULFATE 3 ML AMPUL.NEB IH SCH ×4 (08:11→21:26)
[2019-09-05 08:18] LABS: Albumin 3.7 g/dL (3.9-5); Calcium 7.8 mg/dL (8.4-10.2)
[2019-09-05] MEDS: HEPARIN 5,000 UNIT/1 ML VIAL SUB-Q SCH ×2 (09:25→21:34)
[2019-09-05] MEDS: FAMOTIDINE 20 MG/2 ML INJ IV SCH ×2 (09:25→21:30)
[2019-09-05] MEDS: DOCUSATE SODIUM 100 MG CAP PO SCH ×2 (09:25→21:30)
[2019-09-05] MEDS: LISINOPRIL 5 MG TAB PO SCH (09:26)
[2019-09-05] MEDS ORDERED: MAGNESIUM CITRATE 300 ML ORAL LIQD PO PRN (13:58)
[2019-09-05] MEDS: oxyCODONE /ACETAMINOPHEN 5-325MG TAB PO PRN (14:01)
--- NOTE | 2019-09-05 15:43 | Progress Note ---
Assessment and Plan - Patient Problems (1) Acute respiratory failure with hypoxia Current Visit: Yes Status: Acute Plan to address problem: Patient to get nebulizer treatments duo nebs PRN and [id number], IV Levaquin and IV Solu-Medrol at 40 mg every 8 hours Patient does not need BiPAP or intubation at this point of time (2) COPD exacerbation Current Visit: Yes Status: Acute Plan to address problem: Patient initiated on nebulizer treatments [id number] and as needed, IV with Solu-Medrol 40 mg every 8 and IV Levaquin 750 mg every 24 BiPAP and intubation if necessary Stable at this point (3) HIV (human immunodeficiency virus infection) Current Visit: Yes Status: Chronic Qualifiers: HIV symptom status: asymptomatic Qualified Code(s): Z21 - Asymptomatic human immunodeficiency virus [HIV] infection status Plan to address problem: Patient not taking any medication He wants to wait till he gets his Medicare card (4) Elevated d-dimer Current Visit: No Status: Acute Plan to address problem: No work-up necessary at this point Nonspecific elevation (5) Hypertension Current Visit: No Status: Chronic Qualifiers: Hypertension type: essential hypertension Qualified Code(s): I10 - Essential (primary) hypertension Plan to address problem: Continue antihypertensives Monitor blood pressure Adjust medications as necessary (6) Tobacco use Current Visit: No Status: Chronic Plan to address problem: Counseled about stopping smoking (7) Chest pain Current Visit: No Status: Inactive Qualifiers: Chest pain type: unspecified Qualified Code(s): R07.9 - Chest pain, unspecified Plan to address problem: Very nonspecific and resolved within 5 minutes Musculoskeletal Patient had Lexiscan and echocardiogram last month and was normal (8) DVT prophylaxis Current Visit: No Status: Acute Plan to address problem: Heparin 5000 every 12 and GI prophylaxis Subjective Date of service: 09/05/19 Objective - Constitutional Vitals: Vital Signs - 12hr 09/05/19 09/05/19 09/05/19 08:00 09:31 10:00 Temperature Pulse Rate Pulse Rate [ 87 Posterior] Respiratory Rate Respiratory 20 Rate [Posterior ] Blood Pressure 118/65 O2 Sat by Pulse 99 Oximetry 09/05/19 09/05/19 13:54 15:31 Temperature 98.7 F Pulse Rate 82 Pulse Rate [ 82 Posterior] Respiratory 24 Rate Respiratory 20 Rate [Posterior ] Blood Pressure 116/73 O2 Sat by Pulse 100 Oximetry - Labs CBC & Chem 7: 09/05/19 07:35 09/05/19 07:35 Labs: Abnormal lab results 09/05/19 09/05/19 Range/Units 07:35 07:35 WBC 3.9 L (4.5-11.0) K/mm3 RBC 3.52 L (3.65-5.03) M/mm3 Hgb 8.3 L (11.8-15.2) gm/dl Hct 26.5 L (35.5-45.6) % MCV 75 L (84-94) fl MCH 24 L (28-32) pg RDW 18.5 H (13.2-15.2) % Lymph % (Auto) 11.3 L (13.4-35.0) % Lymph # 0.4 L (1.2-5.4) K/mm3 Seg Neutrophils % 84.8 H (40.0-70.0) % Glucose 149 H (75-100) mg/dL Calcium 7.8 L (8.4-10.2) mg/dL Albumin 3.7 L (3.9-5) g/dL HEART Score - HEART Score EKG: Non-specific Age: 45-65 Risk factors: > 3 risk factors or hx of atherosclerotic disease Troponin: Troponin T < 0.010 ng/mL (0.00-0.029) 09/04/19 11:01 Troponin: < normal limit - Critical Actions Critical Actions: 4-6 pts:12-16.6% risk of adverse cardiac event. Should be admitted
[2019-09-05] MEDS: clonazePAM 0.5 MG TAB PO SCH (21:30)
[2019-09-05] MEDS: traZODone 50 MG TAB PO SCH (21:30)
[2019-09-06] MEDS: methylPREDNISolone Sod Succinate 125 MG/2 ML INJ IV SCH ×2 (04:09→12:40)
[2019-09-06] MEDS: IPRATROPIUM/ALBUTEROL SULFATE 3 ML AMPUL.NEB IH SCH ×2 (07:35→14:21)
--- NOTE | 2019-09-06 08:41 | Nuclear Medicine Report ---
NUCLEAR MEDICINE PERFUSION ONLY LUNG SCAN HISTORY: Difficulty in breathing TECHNIQUE: 5.1 mCi of technetium 99m MAA was administered intravenously. Multiple perfusion images of the chest were obtained. COMPARISON: AP chest performed the same day. CTA chest performed 08/03/2019. IMPRESSION: There is heterogeneous distribution of the radiotracer bilaterally, particularly in the upper lung zo zeynep. No segmental perfusion defect extending to the pleural surface is confidently identified. These findings are more suggestive of COPD or pulmonary hypertension than pulmonary emboli. Recent CTA ches t on 08/23/2019 demonstrates moderate emphysematous changes. If further evaluation is needed, CTA ches t could be obtained. Signer Name: Edmund Valdes Jr, MD Signed: 09/06/2019 8:37 AM Workstation Name: [id number]
--- NOTE | 2019-09-06 08:42 | XRay Report ---
CHEST 1 VIEW INDICATION: dimer /sob. COMPARISON: 08/05/2019 FINDINGS: Support devices: None. Heart: Within normal limits. Lungs/Pleura: The lungs remain hyperinflated suggesting underlying emphysema. No evidence for infiltr ate, pleural fluid or pneumothorax. Additional findings: None. IMPRESSION: Hyperinflated lungs. No acute change since 08/05/2019. Signer Name: Edmund Valdes Jr, MD Signed: 09/06/2019 8:38 AM Workstation Name: [id number]
[2019-09-06] MEDS: HEPARIN 5,000 UNIT/1 ML VIAL SUB-Q SCH (10:26)
[2019-09-06] MEDS: DOCUSATE SODIUM 100 MG CAP PO SCH (10:26)
[2019-09-06] MEDS: FAMOTIDINE 20 MG/2 ML INJ IV SCH (10:26)
[2019-09-06] MEDS: LISINOPRIL 5 MG TAB PO SCH (10:33)
[2019-09-06] MEDS: oxyCODONE /ACETAMINOPHEN 5-325MG TAB PO PRN (10:51)
[2019-09-06 18:15] VITALS: BP 137/95
[2019-09-06] MEDS ORDERED: FAMOTIDINE 20 MG TAB PO SCH (22:00)
== END 2019-09-06 18:49 | disposition home or self-care (01) | DRG 189 ==
LOC: ED 04:28 → 3A 09:28
PROVIDERS: ADMIT Internal Medicine; ATTEND Internal Medicine
DX: J96.01 Acute respiratory failure with hypoxia (principal); J44.1 Chronic obstructive pulmonary disease with (acute) exacerbation; Z21 Asymptomatic human immunodeficiency virus [HIV] infection status; I10 Essential (primary) hypertension; F17.200 Nicotine dependence, unspecified, uncomplicated; G89.29 Other chronic pain; M54.9 Dorsalgia, unspecified; F14.90 Cocaine use, unspecified, uncomplicated; Z79.899 Other long term (current) drug therapy; Z03.818 Encounter for observation for suspected exposure to other biological agents ruled out; Z71.6 Tobacco abuse counseling; Z86.711 Personal history of pulmonary embolism; Z91.14 Patient's other noncompliance with medication regimen
CPT/HCPCS: 36415; 71045; 78580; 80048; 80053; 80307; 81001; 82140; 82728; 82947; 83036; 83615; 84145; 84484; 85025; 85379; 86140; 87040; 93005; 94640; 94760; G0378; A9540; J0456; J1644; J1956; J2920; J2930; J3475; J7030; J7050; U0003-CS

== ENCOUNTER 2019-10-01 18:26 | Emergency (ER) | payer SELFPAY ==
[2019-10-01] MEDS ORDERED: ASPIRIN 325 MG TAB PO ONE (23:03)
[2019-10-01] MEDS ORDERED: NITROGLYCERIN 0.4 MG TAB SUBL SL ONE (23:03)
--- NOTE | 2019-10-01 23:45 | XRay Report ---
CHEST 1 VIEW INDICATION / CLINICAL INFORMATION: SOB. COMPARISON: 09/22/2019 FINDINGS: SUPPORT DEVICES: None. HEART / MEDIASTINUM: No significant abnormality. LUNGS / PLEURA: No significant pulmonary or pleural abnormality. No pneumothorax. ADDITIONAL FINDINGS: No significant additional findings. IMPRESSION: No acute pulmonary or pleural abnormality. No change from 09/22/2019 Signer Name: Leno Monzon MD FACR Signed: 10/01/2019 11:40 PM Workstation Name: [id number]
[2019-10-02 00:11] VITALS: BP 135/84
[2019-10-02 00:12] LABS: Basophils % (Auto) 0.2 % (0.0-1.8); Eosinophils # (Auto) 0.1 K/mm3 (0.0-0.4); Eosinophils % (Auto) 0.9 % (0.0-4.3); Hematocrit 28.7 % (35.5-45.6); Lymphocytes # (Auto) 2.1 K/mm3 (1.2-5.4); Lymphocytes % (Auto) 22.1 % (13.4-35.0); Mean Corpuscular HGB Conc 31 % (32-34); Mean Corpuscular Volume 72 fl (84-94); Monocytes # (Auto) 1.3 K/mm3 (0.0-0.8); Monocytes % (Auto) 14.1 % (0.0-7.3); Platelet Count 507 K/mm3 (140-440); Red Blood Count 3.99 M/mm3 (3.65-5.03); Red Cell Distribution Width 18.8 % (13.2-15.2)
[2019-10-02 00:36] LABS: BUN/Creatinine Ratio 17; Blood Urea Nitrogen 26 mg/dL (9-20); Calcium 8.2 mg/dL (8.4-10.2); Hemolysis Index 0
--- NOTE | 2019-10-02 02:27 | Emergency Department Report ---
ED Chest Pain HPI - General Chief Complaint: Dyspnea/Respdistress Stated Complaint: SOB Time Seen by Provider: 10/01/19 22:59 Source: patient, EMS Mode of arrival: Ambulatory Limitations: No Limitations - History of Present Illness Initial Comments: Patient is a 63-year-old male with past medical history of COPD as well as cocaine abuse who states his last cocaine abuse use was 3 days ago. He states he is having shortness of breath chest pain. He received 5 mg of albuterol prior to arrival which he states helped with shortness of breath he states his chest still feels very tight. He has shortness of breath worse with exertion. Patient denies cough congestion fevers or chills. Of note review of the patient's past medical history he is well-known to the department is been here numerous times for the same complaint. Patient had a treadmill stress test performed August 23 of this year which showed normal myocardial perfusion without evidence of active ischemia or prior infarction. Patient also had a echocardiogram in June 2019 which showed ejection fraction of 60 to 65%. There was no significant significant findings at that time except for some mild diastolic dysfunction. Severity scale (0 -10): 9 - Related Data Previous Rx's Medication Instructions Recorded Last Taken Type ALBUTEROL NEB's [Proventil 0.083% 2.5 mg IH TID PRN #30 neb 09/24/19 Unknown Rx NEBS] Aspirin EC [Halfprin EC] 81 mg PO QDAY #30 tablet. 09/24/19 Unknown Rx AtorvaSTATin [Lipitor] 40 mg PO QHS #30 tab 09/24/19 Unknown Rx Famotidine [Pepcid] 20 mg PO BID #60 tablet 09/24/19 Unknown Rx Ipratropium/Albuterol Sulfate 1 ampul IH TIDRT #50 ampul.andre 09/24/19 Unknown Rx [DUONEB *Not for PRN Use*] Lisinopril [Zestril TAB] 2.5 mg PO QDAY #30 09/24/19 Unknown Rx Nicotine [Habitrol] 14 mg TD DAILY #30 patch 09/24/19 Unknown Rx Prednisone [predniSONE 10 mg 10 mg PO .TAPER #1 tab.ds.pk 09/24/19 Unknown Rx (6-Day Pack, 21 Tabs)] Sennosides Tab [Senokot] 8.6 mg PO Q12HR #30 tablet 09/24/19 Unknown Rx clonazePAM [Klonopin] 1 mg PO HS #10 09/24/19 Unknown Rx traZODone 50 mg PO HS #14 09/24/19 Unknown Rx Allergies Allergy/AdvReac Type Severity Reaction Status Date / Time No Known Allergies Allergy Verified 10/01/19 18:34 Heart Score - HEART Score History: Slightly suspicious EKG: Normal Age: 45-65 Risk factors: 1-2 risk factors Troponin: < normal limit HEART Score: 2 ED Review of Systems ROS: Stated complaint: SOB Other details as noted in HPI Comment: All other systems reviewed and negative ED Past Medical Hx - Past Medical History Previous Medical History?: Yes Hx Hypertension: Yes Hx Pulmonary Embolism: Yes Hx Asthma: Yes Hx COPD: Yes Hx HIV: Yes (Unknown CD4 count) Additional medical history: Elevated Cholesterol & Chronic back pain. - Surgical History Past Surgical History?: No - Social History Smoking Status: Current Some Day Smoker Substance Use Type: Cocaine - Medications Home Medications: Home Medications Medication Instructions Recorded Confirmed Last Taken Type ALBUTEROL NEB's [Proventil 0.083% 2.5 mg IH TID PRN #30 neb 09/24/19 Unknown Rx NEBS] Aspirin EC [Halfprin EC] 81 mg PO QDAY #30 tablet. 09/24/19 Unknown Rx AtorvaSTATin [Lipitor] 40 mg PO QHS #30 tab 09/24/19 Unknown Rx Famotidine [Pepcid] 20 mg PO BID #60 tablet 09/24/19 Unknown Rx Ipratropium/Albuterol Sulfate 1 ampul IH TIDRT #50 ampul.neb 09/24/19 Unknown Rx [DUONEB *Not for PRN Use*] Lisinopril [Zestril TAB] 2.5 mg PO QDAY #30 09/24/19 Unknown Rx Nicotine [Habitrol] 14 mg TD DAILY #30 patch 09/24/19 Unknown Rx Prednisone [predniSONE 10 mg 10 mg PO .TAPER #1 tab.ds.pk 09/24/19 Unknown Rx (6-Day Pack, 21 Tabs)] Sennosides Tab [Senokot] 8.6 mg PO Q12HR #30 tablet 09/24/19 Unknown Rx clonazePAM [Klonopin] 1 mg PO HS #10 09/24/19 Unknown Rx traZODone 50 mg PO HS #14 09/24/19 Unknown Rx ED Physical Exam - General Limitations: No Limitations General appearance: alert, in no apparent distress - Head Head exam: Present: atraumatic, normocephalic - Eye Eye exam: Present: normal appearance, PERRL, EOMI - ENT ENT exam: Present: mucous membranes moist - Neck Neck exam: Present: normal inspection - Respiratory Respiratory exam: Present: normal lung sounds bilaterally. Absent: respiratory distress, wheezes, rales, rhonchi, stridor - Cardiovascular Cardiovascular Exam: Present: regular rate, normal rhythm, normal heart sounds. Absent: systolic murmur, diastolic murmur, rubs, gallop - GI/Abdominal GI/Abdominal exam: Present: soft, normal bowel sounds. Absent: distended, tenderness, guarding, rebound - Rectal Rectal exam: Present: deferred - Extremities Exam Extremities exam: Present: normal inspection - Back Exam Back exam: Present: normal inspection - Neurological Exam Neurological exam: Present: alert, oriented X3 - Psychiatric Psychiatric exam: Present: normal affect, normal mood - Skin Skin exam: Present: warm, dry, intact, normal color. Absent: rash ED Course Vital Signs 10/01/19 10/01/19 10/01/19 18:41 18:57 23:20 Temperature 98.4 F Pulse Rate 84 92 H Respiratory 18 18 Rate Blood Pressure 110/76 Blood Pressure 155/86 [Left] O2 Sat by Pulse 97 97 Oximetry 10/02/19 00:07 Temperature Pulse Rate 89 Respiratory Rate Blood Pressure 135/84 Blood Pressure [Left] O2 Sat by Pulse Oximetry SHARIF score - Sharif Score Age > 65: (0) No Aspirin use within the Past 7 Days: (0) No 3 or more CAD Risk Factors: (1) Yes 2 or more Angina events in past 24 hrs: (1) Yes Known CAD with more than 50% Stenosis: (0) No Elevated Cardiac Markers: (0) No ST Deviation Greater than 0.5mm: (0) No SHARIF Score: 2 ED Medical Decision Making - Lab Data Result diagrams: 10/01/19 23:24 10/01/19 23:24 Lab Results 10/01/19 10/01/19 10/02/19 Range/Units 23:24 23:24 01:22 WBC 9.5 (4.5-11.0) K/mm3 RBC 3.99 (3.65-5.03) M/mm3 Hgb 9.0 L (11.8-15.2) gm/dl Hct 28.7 L (35.5-45.6) % MCV 72 L (84-94) fl MCH 23 L (28-32) pg MCHC 31 L (32-34) % RDW 18.8 H (13.2-15.2) % Plt Count 507 H (140-440) K/mm3 Lymph % (Auto) 22.1 (13.4-35.0) % [place] % (Auto) 14.1 H (0.0-7.3) % Eos % (Auto) 0.9 (0.0-4.3) % Baso % (Auto) 0.2 (0.0-1.8) % Lymph # 2.1 (1.2-5.4) K/mm3 [place] # 1.3 H (0.0-0.8) K/mm3 Eos # 0.1 (0.0-0.4) K/mm3 Baso # 0.0 (0.0-0.1) K/mm3 Seg Neutrophils % 62.7 (40.0-70.0) % Seg Neutrophils # 5.9 (1.8-7.7) K/mm3 Sodium 145 (137-145) mmol/L Potassium 4.9 (3.6-5.0) mmol/L Chloride 101.7 (98-107) mmol/L Carbon Dioxide 30 (22-30) mmol/L Anion Gap 18 mmol/L BUN 26 H (9-20) mg/dL Creatinine 1.5 H (0.8-1.3) mg/dL Estimated GFR 47 ml/min BUN/Creatinine Ratio 17 % Glucose 89 (75-100) mg/dL Calcium 8.2 L (8.4-10.2) mg/dL Troponin T < 0.010 < 0.010 (0.00-0.029) ng/mL - EKG Data -: EKG Interpreted by [place] EKG shows normal: sinus rhythm, axis, intervals, QRS complexes, ST-T waves Rate: normal - EKG Data Interpretation: normal EKG - Radiology Data Chest x-ray shows no acute abnormality - Medical Decision Making Patient is a 63-year-old male with history of cocaine abuse and COPD who is presenting with chest pain shortness of breath. I personally never heard patient wheezing during his interaction. He received a 5 mg albuterol prior to arrival. Regarding patient's chest pain is likely secondary to is breathing status. Is also could be secondary to his cocaine abuse which was recent. He has 2- troponins and negative stress test approximately 2 months ago. I feel confident the patient does not have an acute MT. Patient will be discharged home. Critical care attestation.: If time is entered above; I have spent that time in minutes in the direct care of this critically ill patient, excluding procedure time. ED Disposition Clinical Impression: Atypical chest pain, COPD exacerbation, Cocaine abuse Disposition: DC-01 TO HOME OR SELFCARE Is pt being admited?: No Does the pt Need Aspirin: No Condition: Stable Instructions: Chest Pain (ED), Cocaine Abuse (ED) Referrals: BRINA GARCIA MD [Referring] - 3-5 Days Time of Disposition: 02:26
== END 2019-10-02 04:00 | disposition home or self-care (01) ==
LOC: ED 18:26
DX: J44.1 Chronic obstructive pulmonary disease with (acute) exacerbation (principal); F14.10 Cocaine abuse, uncomplicated; I10 Essential (primary) hypertension; F17.200 Nicotine dependence, unspecified, uncomplicated; Z21 Asymptomatic human immunodeficiency virus [HIV] infection status; Z79.899 Other long term (current) drug therapy
CPT/HCPCS: 36415; 71045; 80048; 84484; 85025; 93005

== ENCOUNTER 2019-10-20 09:28 | Emergency (ER) | payer SELFPAY ==
[2019-10-20] MEDS ORDERED: FAMOTIDINE 20 MG TAB PO STA (13:42)
[2019-10-20] MEDS ORDERED: ALBUTEROL 2.5 MG/3 ML NEBU IH PRN (13:42)
[2019-10-20] MEDS ORDERED: NON-FORMULARY EACH (Lisinopril [Zestril Tab] 5 MG) PO STA (13:42)
--- NOTE | 2019-10-20 13:44 | Emergency Department Report ---
ED General Adult HPI - General Chief complaint: Dyspnea/Respdistress Stated complaint: SOB/MED REFILL PUI?: No Time Seen by Provider: 10/20/19 12:55 Source: patient, EMS ( EMS documentation not available at time of chart dictation ), RN notes reviewed, old records reviewed Mode of arrival: Stretcher Limitations: No Limitations - History of Present Illness Initial comments: The patient was evaluated in the emergency department for symptoms described in the history of present illness. He/she was evaluated in the context of the global COVID-19 pandemic, which necessitated consideration that the patient might be at risk for infection with the virus that causes COVID-19. Institutional protocols and algorithms that pertain to the evaluation of patients at risk for COVID-19 are in a state of rapid change based on informatio n released by regulatory bodies including the CDC and federal and state organizations. These policies and algorithms were followed during the patient's care in the emergency department. Please note that these policies, procedures and recommendations changed on a rapid basis. This is a 63-year-old gentleman. I have evaluated him in the past. Past medical history includes COPD, HIV, high cholesterol, negative nuclear cardiac stress test. In addition, patient had a CT angiogram of the chest October 2018, April 2019, July. All of these were negative for pulmonary embolism. In addition, the patient had a cardiac catheterization in August 2019. The catheterization showed mild nonobstructive coronary artery disease, and a right dominant system, with a 25% mid right coronary artery stenosis. He was found to have an ejection fraction of 50 to 60%, no evidence of aortic stenosis, and unremarkable root aortography. Extensive discussions were had in the past with the patient recommending blood pressure control, primary and secondary prevention measures, baby aspirin, statin therapy, and appropriate diet lifestyle modifications. He is also had a history of noncompliance, and tobacco use. Today, the patient presents to the ER with complaints of central, left-sided, and right-sided chest pain. The pain does not radiate anywhere. There is no nausea or vomiting. There is no diaphoresis. He has chronic shortness of breath and a chronic cough. The cough is not new, worsened or different. He is also asking for refills on his medications. No posterior leg pain and/or swelling. No complaint of headache, neck pain, abdominal pain. -: days(s) Location: chest Consistency: intermittent Improves with: none Worsens with: none - Related Data Previous Rx's Medication Instructions Recorded Last Taken Type Ipratropium/Albuterol Sulfate 1 ampul IH TIDRT #50 ampul.neb 09/24/19 Unknown Rx [DUONEB *Not for PRN Use*] Nicotine [Habitrol] 14 mg TD DAILY #30 patch 09/24/19 Unknown Rx Sennosides Tab [Senokot] 8.6 mg PO Q12HR #30 tablet 09/24/19 Unknown Rx clonazePAM [Klonopin] 1 mg PO HS #10 09/24/19 Unknown Rx traZODone 50 mg PO HS #14 09/24/19 Unknown Rx ALBUTEROL NEB's [Proventil 0.083% 2.5 mg IH TID PRN #30 neb 10/20/19 Unknown Rx NEBS] Aspirin EC [Halfprin EC] 81 mg PO QDAY #30 tablet. 10/20/19 Unknown Rx AtorvaSTATin [Lipitor] 40 mg PO QHS #30 tab 10/20/19 Unknown Rx Famotidine [Pepcid] 20 mg PO BID #60 tablet 10/20/19 Unknown Rx Lisinopril [Zestril TAB] 2.5 mg PO QDAY #30 10/20/19 Unknown Rx clonazePAM [KlonoPIN] 1 mg PO QHS tablet 10/20/19 Unknown Rx Allergies Allergy/AdvReac Type Severity Reaction Status Date / Time No Known Allergies Allergy Verified 10/01/19 18:34 ED Review of Systems ROS: Stated complaint: SOB/MED REFILL Other details as noted in HPI Constitutional: denies: fever Eyes: denies: eye discharge ENT: congestion Respiratory: cough, shortness of breath Cardiovascular: chest pain Gastrointestinal: denies: abdominal pain, nausea, vomiting Musculoskeletal: myalgia Neurological: denies: weakness Hematological/Lymphatic: denies: easy bleeding ED Past Medical Hx - Past Medical History Hx Hypertension: Yes Hx Pulmonary Embolism: Yes Hx Asthma: Yes Hx COPD: Yes Hx HIV: Yes (Unknown CD4 count) Additional medical history: Elevated Cholesterol & Chronic back pain. - Social History Smoking Status: Never Smoker Substance Use Type: Cocaine - Medications Home Medications: Home Medications Medication Instructions Recorded Confirmed Last Taken Type Ipratropium/Albuterol Sulfate 1 ampul IH TIDRT #50 ampul.neb 09/24/19 Unknown Rx [DUONEB *Not for PRN Use*] Nicotine [Habitrol] 14 mg TD DAILY #30 patch 09/24/19 Unknown Rx Sennosides Tab [Senokot] 8.6 mg PO Q12HR #30 tablet 09/24/19 Unknown Rx clonazePAM [Klonopin] 1 mg PO HS #10 09/24/19 Unknown Rx traZODone 50 mg PO HS #14 09/24/19 Unknown Rx ALBUTEROL NEB's [Proventil 0.083% 2.5 mg IH TID PRN #30 neb 10/20/19 Unknown Rx NEBS] Aspirin EC [Halfprin EC] 81 mg PO QDAY #30 tablet. 10/20/19 Unknown Rx AtorvaSTATin [Lipitor] 40 mg PO QHS #30 tab 10/20/19 Unknown Rx Famotidine [Pepcid] 20 mg PO BID #60 tablet 10/20/19 Unknown Rx Lisinopril [Zestril TAB] 2.5 mg PO QDAY #30 10/20/19 Unknown Rx clonazePAM [KlonoPIN] 1 mg PO QHS tablet 10/20/19 Unknown Rx ED Physical Exam - General Limitations: No Limitations General appearance: alert, in no apparent distress, obese - Head Head exam: Present: atraumatic, normocephalic - Eye Eye exam: Present: normal appearance, EOMI. Absent: nystagmus - ENT ENT exam: Present: normal exam, normal orophraynx, mucous membranes moist, normal external ear exam - Neck Neck exam: Present: normal inspection, full ROM. Absent: tenderness, me ningismus - Respiratory Respiratory exam: Present: normal lung sounds bilaterally. Absent: respiratory distress - Cardiovascular Cardiovascular Exam: Present: regular rate, normal rhythm, normal heart sounds. Absent: bradycardia, tachycardia, irregular rhythm, systolic murmur, diastolic murmur, rubs, gallop - GI/Abdominal GI/Abdominal exam: Present: soft. Absent: distended, tenderness, guarding, rebound, rigid, pulsatile mass - Rectal Rectal exam: Present: deferred - Extremities Exam Extremities exam: Present: normal inspection (Right upper extremity shows no evidence of thrill or bruit.), full ROM, other (2+ pulses noted in the bilateral upper and lower extremities. There is no palpable cord. negative Homans sign. Muscular compartments are soft. The pelvis is stable.). Absent: pedal e regina, calf tenderness - Back Exam Back exam: Present: normal inspection, full ROM. Absent: tenderness, CVA tenderness (R), CVA tenderness (L), paraspinal tenderness, vertebral tenderness - Neurological Exam Neurological exam: Present: alert, normal gait, other (No facial droop. Tongue midline. Extraocular movements intact bilaterally. Facial sensation intact to light touch in V1, V2, V3 distribution bilaterally. 5 and a 5 strength in 4 extremities. Sensation intact to light touch in 4 extremities.). Absent: motor sensory deficit - Psychiatric Psychiatric exam: Present: anxious - Skin Skin exam: Present: warm, dry, intact, normal color. Absent: rash ED Course Vital Signs 10/20/19 10/20/19 10/20/19 09:56 13:00 13:07 Temperature 98.2 F Pulse Rate 80 87 Respiratory 18 30 H 31 H Rate Blood Pressure 164/100 179/110 O2 Sat by Pulse 97 97 98 Oximetry 10/20/19 15:09 Temperature Pulse Rate 91 H Respiratory Rate Blood Pressure 179/109 O2 Sat by Pulse Oximetry - Reevaluation(s) Reevaluation #1: 10/20/19 14:36 Differential diagnosis, including but not limited to: GERD, gastritis, hiatal hernia, pneumonia, medication refill Assessment and plan: 63-year-old gentleman, who is not currently tachycardic, tachypneic or hypoxic, who does not appear to be any in any acute distress, has had multiple CAT scans of the chest this year which were negative for pulmonary embolism, had a cardiac catheterization last month which did not show any significant coronary artery disease, recommended for medical management. Patient also requesting medication refill. Check EKG x1, unchanged from prior. Check basic labs, x-ray the chest which was unremarkable. Continue current outpatient medications. He will need to follow-up as an outpatient assuming unremarkable diagnostics Reevaluation #2: 10/20/19 16:02 Patient reassessed multiple times. He is in no acute distress. His laboratory studies and x-ray were unremarkable. His EKG is unchanged from prior. We will refill his medications. He will need to follow-up as an outpatient ED Medical Decision Making - Lab Data Result diagrams: 10/20/19 14:54 10/20/19 14:54 Vital Signs 10/20/19 10/20/19 10/20/19 09:56 13:00 13:07 Temperature 98.2 F Pulse Rate 80 87 Respiratory 18 30 H 31 H Rate Blood Pressure 164/100 179/110 O2 Sat by Pulse 97 97 98 Oximetry Lab Results 10/20/19 10/20/19 10/20/19 Range/Units 14:54 14:54 14:54 Hgb 9.0 L (11.8-15.2) gm/dl Hct 29.0 L (35.5-45.6) % Plt Count 347 (140-440) K/mm3 PT 14.0 (12.2-14.9) Sec. INR 1.06 (0.87-1.13) Sodium 138 (137-145) mmol/L Potassium 4.3 (3.6-5.0) mmol/L Chloride 98.6 (98-107) mmol/L Carbon Dioxide 24 (22-30) mmol/L Anion Gap 20 mmol/L BUN 11 (9-20) mg/dL Creatinine 1.2 (0.8-1.3) mg/dL Estimated GFR > 60 ml/min BUN/Creatinine Ratio 9 % Glucose 89 (75-100) mg/dL Calcium 8.3 L (8.4-10.2) mg/dL Magnesium 2.10 (1.7-2.3) mg/dL Total Creatine Kinase 255 H (55-170) units/L Troponin T (0.00-0.029) ng/mL 10/20/19 Range/Units 14:54 Hgb (11.8-15.2) gm/dl Hct (35.5-45.6) % Plt Count (140-440) K/mm3 PT (12.2-14.9) Sec. INR (0.87-1.13) Sodium (137-145) mmol/L Potassium (3.6-5.0) mmol/L Chloride (98-107) mmol/L Carbon Dioxide (22-30) mmol/L Anion Gap mmol/L BUN (9-20) mg/dL Creatinine (0.8-1.3) mg/dL Estimated GFR ml/min BUN/Creatinine Ratio % Glucose (75-100) mg/dL Calcium (8.4-10.2) mg/dL Magnesium (1.7-2.3) mg/dL Total Creatine Kinase (55-170) units/L Troponin T < 0.010 (0.00-0.029) ng/mL - EKG Data -: EKG Interpreted by Me EKG shows normal: sinus rhythm Rate: normal - EKG Data When compared to previous EKG there are: no significant change 10/20/19 14:34 Compared to prior EKG from October 02, 2019. No acute findings/changes. Sinus rhythm, 91 bpm, normal axis, QTC prolonged, left ventricular hypertrophy, Q waves noted in V2, motion artifact. Abnormal EKG, not a STEMI. - Radiology Data Radiology results: pending, report reviewed, image reviewed interpreted by me: 1 view x-ray of the chest, interpreted by myself: Chronic emphysematous findings, no infiltrate, no pneumothorax, unremarkable cardiac silhouette, unremarkable bony anatomy X-ray of the chest negative for acute finding Critical care attestation.: If time is entered above; I have spent that time in minutes in the direct care of this critically ill patient, excluding procedure time. ED Disposition Clinical Impression: Medical non-compliance, Chronic chest pain, Medication refill COPD (chronic obstructive pulmonary disease) Qualifiers: COPD type: unspecified COPD Qualified Code(s): J44.9 - Chronic obstructive pulmonary disease, unspecified Disposition: - TO HOME OR SELFCARE Is pt being admited?: No Does the pt Need Aspirin: No Condition: Stable Additional Instructions: Please continue current outpatient medications. Take the prescribed medications as directed and needed. Avoid consumption of Motrin, ibuprofen, Naprosyn, Aleve, heavy and spicy foods, and tobacco consumption. Follow-up with a primary care doctor or your electron beam welding machine operator within the next 3 to 5 days. Follow-up with a security support analyst within the next month. Long-term consumption of tobacco/cigarette smoke may lead to disability, , paralysis, loss of quality of life. Noncompliance with prescription medications may lead to worsening medical conditions, which can lead to , paralysis, loss of quality of life, heart attack and stroke. Please return to the emergency room right away with new pain, worsened pain, migration of pain, rectal vomiting, change in mental status, confusion, inability to tolerate liquid feeds, new, worsened or different symptoms not present on the initial emergency room evaluation peer Prescriptions: AtorvaSTATin [Lipitor] 40 mg PO QHS #30 tab Aspirin EC [Halfprin EC] 81 mg PO QDAY #30 tablet. Famotidine [Pepcid] 20 mg PO BID #60 tablet ALBUTEROL NEB's [Proventil 0.083% NEBS] 2.5 mg IH TID PRN #30 neb PRN Reason: Wheezing Lisinopril [Zestril TAB] 2.5 mg PO QDAY #30 Referrals: CATRACHITA RAE MD [Staff Physician] - 3-5 Days ENRRIQUE VINES MD [Staff Physician] - 3-5 Days [facility] [Provider Group] - 3-5 Days
[2019-10-20] MEDS ORDERED: amLODIPine 5 MG TAB PO ONE (13:47)
[2019-10-20] MEDS ORDERED: IPRATROPIUM/ALBUTEROL SULFATE 3 ML AMPUL.NEB IH SCH (14:00)
[2019-10-20] MEDS ORDERED: SUCRALFATE 1 GM/10 ML ORAL LIQD PO ONE (14:29)
[2019-10-20] MEDS ORDERED: ACETAMINOPHEN 325 MG TAB PO ONE (14:29)
--- NOTE | 2019-10-20 14:55 | XRay Report ---
CHEST 1 VIEW INDICATION: cp. COMPARISON: Chest x-ray from 10/01/2019 FINDINGS: SUPPORT DEVICES: None. HEART: Within normal limits. LUNGS/PLEURA: Tiny calcified granulomata in the right upper lobe. Otherwise clear lungs. ADDITIONAL FINDINGS: None. IMPRESSION: 1. No acute findings. Signer Name: Tanvir Khan MD Signed: 10/20/2019 2:50 PM Workstation Name: [id number]
[2019-10-20] MEDS: NICOTINE 14 MG/24 HR PATCH TD SCH ×2 (15:09→15:14)
[2019-10-20 15:25] LABS: INR 1.06 (0.87-1.13)
[2019-10-20 15:49] LABS: BUN/Creatinine Ratio 9; Blood Urea Nitrogen 11 mg/dL (9-20); Calcium 8.3 mg/dL (8.4-10.2); Hemolysis Index 2
[2019-10-20 16:12] VITALS: BP 165/101
[2019-10-20] MEDS ORDERED: clonazePAM 0.5 MG TAB PO SCH (22:00)
[2019-10-20] MEDS ORDERED: NON-FORMULARY EACH (Clonazepam [Klonopin] 1 MG) PO SCH (22:00)
[2019-10-21] MEDS ORDERED: ASPIRIN EC 81 MG TAB PO SCH (10:00)
== END 2019-10-20 16:12 | disposition home or self-care (01) ==
LOC: ED 09:28
DX: I10 Essential (primary) hypertension (principal); J44.9 Chronic obstructive pulmonary disease, unspecified; E78.00 Pure hypercholesterolemia, unspecified; F14.10 Cocaine abuse, uncomplicated; Z79.899 Other long term (current) drug therapy; Z86.711 Personal history of pulmonary embolism; Z79.01 Long term (current) use of anticoagulants
CPT/HCPCS: 36415; 71045; 80048; 82550; 83735; 84484; 85014; 85018; 85049; 85610; 93005; 94644; 99284; A9270; J3246

== ENCOUNTER 2019-10-22 05:38 | Observation (INO) | payer SELFPAY ==
--- NOTE | 2019-10-22 06:31 | XRay Report ---
CHEST 1 VIEW, 10/22/2019 5:22 AM CLINICAL INFORMATION/INDICATION: Chest pain COMPARISON: Chest radiograph, 10/20/2019 at 1:54 PM FINDINGS: SUPPORT DEVICES: None. HEART: The cardiac silhouette is normal in size. LUNGS/PLEURA: The lungs are clear of focal airspace disease or significant pleural effusion. ADDITIONAL FINDINGS: No additional acute findings. IMPRESSION: 1. No evidence of acute cardiopulmonary process. Signer Name: Jodee Tran MD Signed: 10/22/2019 6:27 AM Workstation Name: [id number]
[2019-10-22 07:11] LABS: Hemoglobin 8.5 gm/dl (11.8-15.2); Mean Corpuscular HGB Conc 30 % (32-34); Mean Corpuscular Volume 70 fl (84-94); Platelet Count 407 K/mm3 (140-440); Red Blood Count 3.99 M/mm3 (3.65-5.03)
[2019-10-22 07:14] LABS: BUN/Creatinine Ratio 10; Blood Urea Nitrogen 14 mg/dL (9-20); Calcium 7.9 mg/dL (8.4-10.2); Hemolysis Index 12
[2019-10-22 10:01] LABS: Anisocytosis 1+; Basophils % (Manual) 0 % (0.0-1.8); Hypochromasia 2+; Ovalocytes Few; Platelet Estimate Consistent w Auto; Total Cells Counted 100
--- NOTE | 2019-10-22 17:49 | Emergency Department Report ---
HPI - General Chief Complaint: Chest Pain Time Seen by Provider: 10/22/19 17:29 - HPI HPI: Room 35 The patient is a 63-year-old male present with a chief complaint of chest pain. Patient states his symptoms began last night with substernal chest pain that was constant and sharp in nature. Patient admits to nausea but denies vomiting. Patient admits to diaphoresis with his pain. The patient admits to cocaine use and states he last used 6 days ago ED Past Medical Hx - Past Medical History Previous Medical History?: Yes Hx Hypertension: Yes Hx Pulmonary Embolism: Yes Hx Asthma: Yes Hx COPD: Yes Hx HIV: Yes (Unknown CD4 count) Additional medical history: Elevated Cholesterol & Chronic back pain. - Surgical History Past Surgical History?: No - Family History Family history: no significant - Social History Smoking Status: Former Smoker (None x5 months) Substance Use Type: Cocaine - Medications Home Medications: Home Medications Medication Instructions Recorded Confirmed Last Taken Type Ipratropium/Albuterol Sulfate 1 ampul IH TIDRT #50 ampul.neb 09/24/19 Unknown Rx [DUONEB *Not for PRN Use*] Nicotine [Habitrol] 14 mg TD DAILY #30 patch 09/24/19 Unknown Rx Sennosides Tab [Senokot] 8.6 mg PO Q12HR #30 tablet 09/24/19 Unknown Rx clonazePAM [Klonopin] 1 mg PO HS #10 09/24/19 Unknown Rx traZODone 50 mg PO HS #14 09/24/19 Unknown Rx ALBUTEROL NEB's [Proventil 0.083% 2.5 mg IH TID PRN #30 neb 10/20/19 Unknown Rx NEBS] Aspirin EC [Halfprin EC] 81 mg PO QDAY #30 tablet. 10/20/19 Unknown Rx AtorvaSTATin [Lipitor] 40 mg PO QHS #30 tab 10/20/19 Unknown Rx Famotidine [Pepcid] 20 mg PO BID #60 tablet 10/20/19 Unknown Rx Lisinopril [Zestril TAB] 2.5 mg PO QDAY #30 10/20/19 Unknown Rx clonazePAM [KlonoPIN] 1 mg PO QHS tablet 10/20/19 Unknown Rx ED Review of Systems ROS: Stated complaint: RICKY Other details as noted in HPI Constitutional: diaphoresis Respiratory: shortness of breath Cardiovascular: chest pain Endocrine: no symptoms reported Gastrointestinal: nausea. denies: vomiting Physical Exam - Physical Exam Vital Signs: Vital Signs 10/22/19 10/22/19 10/22/19 05:45 05:47 05:50 Temperature 98.1 F Pulse Rate 82 86 Respiratory 18 20 Rate Blood Pressure 170/102 O2 Sat by Pulse 100 100 100 Oximetry 10/22/19 15:35 Temperature 97.9 F Pulse Rate 106 H Respiratory 26 H Rate Blood Pressure 169/115 O2 Sat by Pulse 89 Oximetry Physical Exam: GENERAL: The patient is well-developed well-nourished male lying on stretcher not appearing to be in acute distress. [] HEENT: Normocephalic. Atraumatic. Extraocular motions are intact. Patient has moist mucous membranes. NECK: Supple. Trachea midline CHEST/LUNGS: Clear to auscultation. There is no respiratory distress noted. HEART/CARDIOVASCULAR: Regular. There is no tachycardia. There is no gallop rub or murmur. ABDOMEN: Abdomen is soft, nontender. Patient has normal bowel sounds. There is no abdominal distention. SKIN: There is no rash. There is no edema. There is no diaphoresis. NEURO: The patient is awake, alert, and oriented. The patient is cooperative. The patient has normal speech MUSCULOSKELETAL: There is no evidence of acute injury. ED Course Vital Signs 10/22/19 10/22/19 10/22/19 05:45 05:47 05:50 Temperature 98.1 F Pulse Rate 82 86 Respiratory 18 20 Rate Blood Pressure 170/102 O2 Sat by Pulse 100 100 100 Oximetry 10/22/19 15:35 Temperature 97.9 F Pulse Rate 106 H Respiratory 26 H Rate Blood Pressure 169/115 O2 Sat by Pulse 89 Oximetry ED Medical Decision Making - Lab Data Result diagrams: 10/22/19 06:00 10/22/19 06:00 Laboratory Tests 10/22/19 10/22/19 10/22/19 06:00 06:00 08:44 WBC 4.8 RBC 3.99 Hgb 8.5 L Hct 28.0 L MCV 70 L MCH 21 L MCHC 30 L RDW 18.0 H Plt Count 407 [place] % (Auto) Swimming Pool Service Technician Add Manual Diff Complete Total Counted 100 Seg Neuts % (Manual) 64.0 Band Neutrophils % 1.0 Lymphocytes % (Manual) 18.0 Reactive Lymphs % (Man) 0 Monocytes % (Manual) 13.0 H Eosinophils % (Manual) 4.0 Basophils % (Manual) 0 Metamyelocytes % 0 Myelocytes % 0 Promyelocytes % 0 Blast Cells % 0 Nucleated RBC % Not Reportable Seg Neutrophils # Man 3.1 Band Neutrophils # 0.0 Lymphocytes # (Manual) 0.9 L Abs React Lymphs (Man) 0.0 Monocytes # (Manual) 0.6 Eosinophils # (Manual) 0.2 Basophils # (Manual) 0.0 Metamyelocytes # 0.0 Myelocytes # 0.0 Promyelocytes # 0.0 Blast Cells # 0.0 WBC Morphology Not Reportable Hypersegmented Neuts Not Reportable Hyposegmented Neuts Not Reportable Hypogranular Neuts Not Reportable Smudge Cells Not Reportable Toxic Granulation Not Reportable Toxic Vacuolation Not Reportable Dohle Bodies Not Reportable Pelger-Huet Anomaly Not Reportable Ruma Rods Not Reportable Platelet Estimate Consistent w auto Clumped Platelets Not Reportable Plt Clumps, EDTA Not Reportable Large Platelets Not Reportable Giant Platelets Not Reportable Platelet Satelliting Not Reportable Plt Morphology Comment Not Reportable RBC Morphology Not Reportable Dimorphic RBCs Not Reportable Polychromasia Not Reportable Hypochromasia 2+ Poikilocytosis Not Reportable Anisocytosis 1+ Microcytosis 1+ Macrocytosis Not Reportable Spherocytes Not Reportable Pappenheimer Bodies Not Reportable Sickle Cells Not Reportable Target Cells Not Reportable Tear Drop Cells Not Reportable Ovalocytes Few Helmet Cells Not Reportable [place] Bodies Not Reportable [place] Rings Not Reportable [place] Cells Not Reportable Bite Cells Not Reportable Crenated Cell Not Reportable Elliptocytes Not Reportable Acanthocytes (Spur) Not Reportable Rouleaux Not Reportable Hemoglobin C Crystals Not Reportable Schistocytes Not Reportable Malaria parasites Not Reportable Ric Bodies Not Reportable Hem Pathologist Commnt No Sodium 141 Potassium 4.5 Chloride 101.6 Carbon Dioxide 23 Anion Gap 21 BUN 14 Creatinine 1.4 H Estimated GFR 51 BUN/Creatinine Ratio 10 Glucose 101 H Calcium 7.9 L Troponin T < 0.010 < 0.010 10/22/19 13:47 WBC RBC Hgb Hct MCV MCH MCHC RDW Plt Count [place] % (Auto) Add Manual Diff Total Counted Seg Neuts % (Manual) Band Neutrophils % Lymphocytes % (Manual) Reactive Lymphs % (Man) Monocytes % (Manual) Eosinophils % (Manual) Basophils % (Manual) Metamyelocytes % Myelocytes % Promyelocytes % Blast Cells % Nucleated RBC % Seg Neutrophils # Man Band Neutrophils # Lymphocytes # (Manual) Abs React Lymphs (Man) Monocytes # (Manual) Eosinophils # (Manual) Basophils # (Manual) Metamyelocytes # Myelocytes # Promyelocytes # Blast Cells # WBC Morphology Hypersegmented Neuts Hyposegmented Neuts Hypogranular Neuts Smudge Cells Toxic Granulation Toxic Vacuolation Dohle Bodies Pelger-Huet Anomaly Ruma Rods Platelet Estimate Clumped Platelets Plt Clumps, EDTA Large Platelets Giant Platelets Platelet Satelliting Plt Morphology Comment RBC Morphology Dimorphic RBCs Polychromasia Hypochromasia Poikilocytosis Anisocytosis Microcytosis Macrocytosis Spherocytes Pappenheimer Bodies Sickle Cells Target Cells Tear Drop Cells Ovalocytes Helmet Cells [place] Bodies [place] Rings Remington Cells Bite Cells Crenated Cell Elliptocytes Acanthocytes (Spur) Rouleaux Hemoglobin C Crystals Schistocytes Malaria parasites Ric Bodies Hem Pathologist Commnt Sodium Potassium Chloride Carbon Dioxide Anion Gap BUN Creatinine Estimated GFR BUN/Creatinine Ratio Glucose Calcium Troponin T < 0.010 - EKG Data -: EKG Interpreted by Me EKG shows normal: sinus rhythm Rate: normal - EKG Data When compared to previous EKG there are: no significant change Interpretation: other (No ischemic changes seen) - Radiology Data Radiology results: report reviewed (Chest x-ray), image reviewed (Chest x-ray) interpreted by me: Chest x-ray-no focal infiltrates, no pneumothorax Findings [facility] [address] [place] [address] XRay Report Signed Patient: NAVARRO YAN MR #: [id number] : 1955 Acct:[id number] Age/Sex: 63 / M ADM Date: 10/22/19 Loc: ED Attending Dr: Ordering Physician: SERINA MCKINNEY MD Date of Service: 10/22/19 Procedure(s): XR chest 1V ap Accession Number(s): [id number] cc: ED MD FAYE Fluoro Time In Minutes: CHEST 1 VIEW, 10/22/2019 5:22 AM CLINICAL INFORMATION/INDICATION: Chest pain COMPARISON: Chest radiograph, 10/20/2019 at 1:54 PM FINDINGS: SUPPORT DEVICES: None. HEART: The cardiac silhouette is normal in size. LUNGS/PLEURA: The lungs are clear of focal airspace disease or significant pleural effusion. ADDITIONAL FINDINGS: No additional acute findings. IMPRESSION: 1. No evidence of acute cardiopulmonary process. Signer Name: Jodee Tran MD Signed: 10/22/2019 6:27 AM Workstation Name: [id number] Transcribed By: EB Dictated By: Jodee Tran MD Electronically Authenticated By: Jodee Tran MD Signed Date/Time: 10/22/19626 DD/ 5 TD/TT: - Differential Diagnosis ACS, pericarditis, GERD Critical care attestation.: If time is entered above; I have spent that time in minutes in the direct care of this critically ill patient, excluding procedure time. ED Disposition Clinical Impression: Chest pain, Cocaine use Disposition: -09 OP ADMIT IP TO THIS HOSP Is pt being admited?: Yes Does the pt Need Aspirin: Yes Condition: Fair Instructions: Chest Pain (ED) Referrals: PRIMARY CARE, [Primary Care Provider] - 3-5 Days Time of Disposition: 18:41 (Hospitalist paged (Dr Correa))
[2019-10-22] MEDS ORDERED: ASPIRIN 325 MG TAB PO ONE (17:51)
[2019-10-22] MEDS ORDERED: MORPHINE 4 MG/1 ML INJ IV ONE (17:52)
[2019-10-22] MEDS ORDERED: NITROGLYCERIN 2% OINT 1 GM TP ONE (17:52)
[2019-10-22] MEDS ORDERED: ONDANSETRON 4 MG/2 ML INJ IV ONE (17:52)
[2019-10-22] MEDS ORDERED: IPRATROPIUM 0.02% NEBU 2.5 ML IH ONE (19:08)
[2019-10-22] MEDS ORDERED: ALBUTEROL 2.5 MG/3 ML NEBU IH ONE (19:08)
[2019-10-22] MEDS ORDERED: ACETAMINOPHEN 325 MG TAB PO PRN ×2 (22:56)
[2019-10-22] MEDS ORDERED: MAGNESIUM HYDROXIDE (MOM) ORAL LIQD UDC PO PRN (22:56)
[2019-10-22] MEDS ORDERED: ONDANSETRON 4 MG/2 ML INJ IV PRN (22:56)
[2019-10-22] MEDS ORDERED: MORPHINE 4 MG/1 ML INJ IV PRN (22:56)
[2019-10-22] MEDS ORDERED: NITROGLYCERIN 0.4 MG TAB SUBL SL PRN (22:56)
--- NOTE | 2019-10-22 23:13 | History and Physical Report ---
History of Present Illness Date of examination: 10/22/19 Date of admission: 10/22/19 21:27 Chief complaint: Chest Pain History of present illness: 63-year-old male with significant past medical history of hypertension, COPD, hyperlipidemia, history of pulmonary embolism, history of HIV with unknown CD4 count presenting to the emergency room today complaining of chest pain. Chest pain is said to be substernal and started overnight. Pain is constant and sharp in nature. He had associated nausea and was diaphoretic. He denies any vomiting, no headache or dizziness, denies any fever or chills. Patient also admits to using illicit drug-cocaine. Last use was about 6 days ago. Work-up in the emergency room so far has been unremarkable. Patient is being ad mitted for further work-up. Past History Past Medical History: COPD, hypertension, hyperlipidemia, pulmonary embolism, other (Asthma,HIV + with unknown CD4 count,Chronic Back Pain) Past Surgical History: No surgical history Social history: smoking (Former Smoker,), other (H/O Cocaine use.) Family history: no significant family history Medications and Allergies Allergies Allergy/AdvReac Type Severity Reaction Status Date / Time No Known Allergies Allergy Verified 10/01/19 18:34 Home Medications Medication Instructions Recorded Confirmed Last Taken Type Ipratropium/Albuterol Sulfate 1 ampul IH TIDRT #50 ampul.neb 09/24/19 10/22/19 Unknown Rx [DUONEB *Not for PRN Use*] Sennosides Tab [Senokot] 8.6 mg PO Q12HR #30 tablet 09/24/19 10/22/19 Unknown Rx clonazePAM [Klonopin] 1 mg PO HS #10 09/24/19 10/23/19 1 Day Ago Rx ~10/22/19 1 mg traZODone 50 mg PO HS #14 09/24/19 10/22/19 Unknown Rx ALBUTEROL NEB's [Proventil 0.083% 2.5 mg IH TID PRN #30 neb 10/20/19 10/22/19 Unknown Rx NEBS] Aspirin EC [Halfprin EC] 81 mg PO QDAY #30 tablet. 10/20/19 10/22/19 Unknown Rx AtorvaSTATin [Lipitor] 40 mg PO QHS #30 tab 10/20/19 10/23/19 Unknown Rx Famotidine [Pepcid] 20 mg PO BID #60 tablet 10/20/19 10/22/19 Unknown Rx Lisinopril [Zestril TAB] 2.5 mg PO QDAY #30 10/20/19 10/23/19 1 Day Ago Rx ~10/22/19 2.5 mg Active Meds: Active Medications Acetaminophen (Tylenol) 650 mg PO Q6H PRN PRN Reason: Pain, Mild (1-3) Acetaminophen (Tylenol) 650 mg PO Q4H PRN PRN Reason: Pain MILD(1-3)/Fever >100.5/KOENIG Aspirin (Ecotrin) 325 mg PO QDAY NADIA Magnesium Hydroxide (Milk Of Magnesia) 30 ml PO Q4H PRN PRN Reason: Constipation Morphine Sulfate (Morphine) 2 mg IV Q5MIN PRN PRN Reason: Chest Pain Nitroglycerin (Nitrostat) 0.4 mg SL Q5M PRN PRN Reason: Chest Pain Ondansetron HCl (Zofran) 4 mg IV Q8H PRN PRN Reason: Nausea And Vomiting Sodium Chloride (Sodium Chloride Flush Syringe 10 Ml) 10 ml IV PRN PRN PRN Reason: LINE FLUSH Sodium Chloride (Sodium Chloride Flush Syringe 10 Ml) 10 ml IV BID NADIA Sodium Chloride (Sodium Chloride Flush Syringe 10 Ml) 10 ml IV PRN PRN PRN Reason: LINE FLUSH Review of Systems Constitutional: no fever, no chills Ears, nose, mouth and throat: no nasal congestion, no sore throat Cardiovascular: chest pain, no palpitations Respiratory: no cough, no shortness of breath Gastrointestinal: no abdominal pain, no nausea, no vomiting, no diarrhea Genitourinary Male: no dysuria, no hematuria, no flank pain Musculoskeletal: no neck pain, no low back pain Integumentary: no rash, no pruritis Neurological: no headaches, no confusion Psychiatric: no anxiety, no depression Exam - Constitutional Vitals: Temp Pulse Resp BP Pulse Ox 97.9 F 94 H 18 170/117 96 10/22/19 15:35 10/22/19 19:52 10/22/19 19:52 10/22/19 19:52 10/22/19 19:52 General appearance: Present: no acute distress, well-nourished - EENT Eyes: Present: PERRL, EOM intact. Absent: scleral icterus ENT: hearing intact, clear oral mucosa, dentition normal - Neck Neck: Present: supple, normal ROM - Respiratory Respiratory effort: normal Respiratory: bilateral: CTA - Cardiovascular Rhythm: regular Heart Sounds: Present: S1 & S2. Absent: gallop, systolic murmur, diastolic murmur, rub - Extremities Extremities: no ischemia, pulses intact, pulses symmetrical, No edema, Full ROM Peripheral Pulses: within normal limits - Abdominal General gastrointestinal: Present: soft, non-tender, non-distended, normal bowel sounds. Absent: mass - Integumentary Integumentary: Present: clear, warm, dry - Musculoskeletal Musculoskeletal: strength equal bilaterally - Psychiatric Psychiatric: appropriate mood/affect, intact judgment & insight, memory intact, cooperative - Neurologic Neurologic: CNII-XII intact, no focal deficits, moves all extremities HEART Score - HEART Score Troponin: Troponin T < 0.010 ng/mL (0.00-0.029) 10/22/19 13:47 Results - Labs CBC & Chem 7: 10/23/19 02:55 10/23/19 02:55 Labs: Abnormal lab results 10/22/19 10/22/19 Range/Units 06:00 06:00 Hgb 8.5 L (11.8-15.2) gm/dl Hct 28.0 L (35.5-45.6) % MCV 70 L (84-94) fl MCH 21 L (28-32) pg MCHC 30 L (32-34) % RDW 18.0 H (13.2-15.2) % Monocytes % (Manual) 13.0 H (0.0-7.3) % Lymphocytes # (Manual) 0.9 L (1.2-5.4) K/mm3 Creatinine 1.4 H (0.8-1.3) mg/dL Glucose 101 H (75-100) mg/dL Calcium 7.9 L (8.4-10.2) mg/dL Assessment and Plan - Patient Problems (1) Chest pain Current Visit: Yes Status: Acute Plan to address problem: Patient admitted and placed on telemetry. Will check serial cardiac enzymes. Patient is placed on daily aspirin, sublingual nitroglycerin and IV morphine as needed for chest pain. Patient had a cardiac cath sometime in August 2019 and it showed a 25% RCA stenos is. We will await further evaluation and recommendation from cardiology. (2) Cocaine use Current Visit: Yes Status: Acute Plan to address problem: Patient counseled on quitting illicit drug use. (3) HIV (human immunodeficiency virus infection) Current Visit: No Status: Chronic Qualifiers: HIV symptom status: asymptomatic Qualified Code(s): Z21 - Asymptomatic human immunodeficiency virus [HIV] infection status Plan to address problem: We will encourage patient to follow-up with infectious disease. CD4 count is unknown. (4) DVT prophylaxis Current Visit: No Status: Acute Plan to address problem: Patient placed on subcutaneous heparin. (5) Full code status Current Visit: No Status: Acute (6) Hypertension Current Visit: No Status: Chronic Qualifiers: Hypertension type: essential hypertension Qualified Code(s): I10 - Essential (primary) hypertension
[2019-10-23 01:10] LABS: Hematocrit 29.8 % (35.5-45.6); Hemoglobin 9.1 gm/dl (11.8-15.2); Mean Corpuscular HGB Conc 31 % (32-34); Mean Corpuscular Volume 70 fl (84-94); Platelet Count 415 K/mm3 (140-440); Red Blood Count 4.25 M/mm3 (3.65-5.03)
[2019-10-23 03:01] LABS: Anisocytosis 1+; Basophils % (Manual) 0 % (0.0-1.8); Eosinophils % (Manual) 0 % (0.0-4.3); Platelet Estimate Consistent w Auto; Total Cells Counted 100
[2019-10-23 03:20] LABS: Calcium 8.3 mg/dL (8.4-10.2); Chol/HDL Ratio 2.39 %
[2019-10-23 04:07] LABS: Hematocrit 27.8 % (35.5-45.6); Hemoglobin 8.6 gm/dl (11.8-15.2); Mean Corpuscular HGB Conc 31 % (32-34); Mean Corpuscular Volume 71 fl (84-94); Platelet Count 364 K/mm3 (140-440); Red Blood Count 3.93 M/mm3 (3.65-5.03); Red Cell Distribution Width 17.9 % (13.2-15.2)
[2019-10-23 04:18] LABS: INR 0.85 (0.87-1.13)
[2019-10-23 04:19] LABS: Calcium 7.9 mg/dL (8.4-10.2)
[2019-10-23 06:09] LABS: Total Cells Counted 100
[2019-10-23 06:10] LABS: Anisocytosis 1+; Hypochromasia 1+; Platelet Estimate Consistent w Auto
[2019-10-23] MEDS: HEPARIN 5,000 UNIT/1 ML VIAL SUB-Q SCH ×2 (06:25→13:18)
--- NOTE | 2019-10-23 08:42 | Consultation ---
History of Present Illness Consult date: 10/23/19 Requesting physician: RONA KINCAID Consult reason: chest pain History of present illness: Pt is a 63 y.o. male who presented with complaints of constant substernal chest pain for several months. Pt states pain became severe last night, prompting him to seek care. He describes the pain as sharp and reports it is worse with exertion. Pain is non-radiating. Associated with SOB and occasional diaphoresis. No additional cardiac sx. Of note, pt admits to cocaine use, last use approximately 1 week ago. Trop neg x 3. ECG reveals no acute ischemic changes. CXR unremarkable. Pt presents frequently with similar complaints and has been seen by our group during previous hospitalizations. LHC 09/15/2019 - mild non-obstructive CAD; 25% mid RCA stenosis; EF 55-60%. Stress test 08/24/2019 - no evidence of ischemia or prior infarction; mild global LV hypokinesis estimated at 45% without evidence of stress-induced segmental wall motion abnormalities or transient ischemic dilation. Echo 07/17/2019 - EF 60-65%; impaired relaxation; no significant valvular abnormalities. Past History Past Medical History: COPD, hypertension, hyperlipidemia, pulmonary embolism, other (asthma, HIV + with unknown CD4 count) Social history: smoking (former smoker), other (active cocaine abuse) Medications and Allergies Allergies Allergy/AdvReac Type Severity Reaction Status Date / Time No Known Allergies Allergy Verified 10/01/19 18:34 Home Medications Medication Instructions Recorded Confirmed Last Taken Type Ipratropium/Albuterol Sulfate 1 ampul IH TIDRT #50 ampul.neb 09/24/19 10/22/19 Unknown Rx [DUONEB *Not for PRN Use*] Sennosides Tab [Senokot] 8.6 mg PO Q12HR #30 tablet 09/24/19 10/22/19 Unknown Rx clonazePAM [Klonopin] 1 mg PO HS #10 09/24/19 10/23/19 1 Day Ago Rx ~10/22/19 1 mg traZODone 50 mg PO HS #14 09/24/19 10/22/19 Unknown Rx ALBUTEROL NEB's [Proventil 0.083% 2.5 mg IH TID PRN #30 neb 10/20/19 10/22/19 Unknown Rx NEBS] Aspirin EC [Halfprin EC] 81 mg PO QDAY #30 tablet. 10/20/19 10/22/19 Unknown Rx AtorvaSTATin [Lipitor] 40 mg PO QHS #30 tab 10/20/19 10/23/19 Unknown Rx Famotidine [Pepcid] 20 mg PO BID #60 tablet 10/20/19 10/22/19 Unknown Rx Lisinopril [Zestril TAB] 2.5 mg PO QDAY #30 10/20/19 10/23/19 1 Day Ago Rx ~10/22/19 2.5 mg Active Meds: Active Medications Acetaminophen (Tylenol) 650 mg PO Q4H PRN PRN Reason: Pain MILD(1-3)/Fever >100.5/KOENIG Aspirin (Ecotrin) 325 mg PO QDAY NADIA Heparin Sodium (Porcine) (Heparin) 5,000 unit SUB-Q Q8HR NADIA Last Admin: 10/23/19 06:25 Dose: 5,000 unit Documented by: Labetalol HCl (Labetalol) 20 mg IV Q6HR PRN PRN Reason: Give for SBP greater than 160 Last Admin: 10/23/19 02:03 Dose: 20 mg Documented by: Magnesium Hydroxide (Milk Of Magnesia) 30 ml PO Q4H PRN PRN Reason: Constipation Morphine Sulfate (Morphine) 2 mg IV Q5MIN PRN PRN Reason: Chest Pain Nitroglycerin (Nitrostat) 0.4 mg SL Q5M PRN PRN Reason: Chest Pain Ondansetron HCl (Zofran) 4 mg IV Q8H PRN PRN Reason: Nausea And Vomiting Sodium Chloride (Sodium Chloride Flush Syringe 10 Ml) 10 ml IV PRN PRN PRN Reason: LINE FLUSH Last Admin: 10/23/19 02:05 Dose: 10 ml Documented by: Sodium Chloride (Sodium Chloride Flush Syringe 10 Ml) 10 ml IV BID [facility] Review of Systems Constitutional: sweats, no fever, no chills Ears, nose, mouth and throat: no nasal congestion, no sore throat Cardiovascular: chest pain, shortness of breath, no orthopnea, no palpitations, no edema, no syncope, no lightheadedness, no dyspnea on exertion, no paroxysmal nocturnal dyspnea, no claudication Respiratory: shortness of breath, no cough, no dyspnea on exertion Gastrointestinal: nausea, no abdominal pain, no vomiting, no diarrhea, no constipation Genitourinary Male: no dysuria, no flank pain Musculoskeletal: no neck stiffness, no neck pain, no myalgias Integumentary: no rash, no wounds Neurological: no head injury, no paralysis, no weakness, no parathesias, no numbness, no tingling, no seizures, no syncope, no vertigo, no headaches Endocrine: no cold intolerance, no heat intolerance, no polydipsia, no polyuria Hematologic/Lymphatic: no easy bruising, no easy bleeding Allergic/Immunologic: no urticaria Physical Examination Last Vital Signs Temp 98.2 F 10/23/19 07:24 Pulse 89 10/23/19 08:23 Resp 19 10/23/19 08:23 BP 142/88 10/23/19 07:24 Pulse Ox 94 10/23/19 08:23 General appearance: no acute distress HEENT: Positive: EOMI, Normocephaly, Mucus Membranes Moist Neck: Positive: neck supple, trachea midline Cardiac: Positive: Reg Rate and Rhythm, S1/S2 Lungs: Positive: clear to auscultation (bilaterally) Neuro: Positive: Grossly Intact Abdomen: Positive: Soft, Active Bowel Sounds. Negative: Tender Skin: Negative: Rash Musculoskeletal: No Pain, Normal Range of Motion Extremities: Present: upper extr. pulses, lower extr. pulses. Absent: edema Results 10/23/19 02:55 10/23/19 02:55 Coagulation 10/23/19 Range/Units 02:55 PT 11.7 L (12.2-14.9) Sec. INR 0.85 L (0.87-1.13) Lipids 10/23/19 Range/Units 00:40 Triglycerides 98 (2-149) mg/dL Cholesterol 199 (50-199) mg/dL HDL Cholesterol 83 H (40-59) mg/dL Cholesterol/HDL Ratio 2.39 % CBC 10/22/19 10/23/19 10/23/19 Range/Units 06:00 00:40 02:55 WBC 4.8 5.4 4.7 (4.5-11.0) K/mm3 RBC 3.99 4.25 3.93 (3.65-5.03) M/mm3 Hgb 8.5 L 9.1 L 8.6 L (11.8-15.2) gm/dl Hct 28.0 L 29.8 L 27.8 L (35.5-45.6) % Plt Count 407 415 364 (140-440) K/mm3 Comprehensive Metabolic Panel 10/23/19 10/23/19 Range/Units 00:40 02:55 Sodium 140 140 (137-145) mmol/L Potassium 4.6 4.8 (3.6-5.0) mmol/L Chloride 98.6 101.2 (98-107) mmol/L Carbon Dioxide 21 L 24 (22-30) mmol/L BUN 19 20 (9-20) mg/dL Creatinine 1.6 H 1.7 H (0.8-1.3) mg/dL Glucose 105 H 89 (75-100) mg/dL Calcium 8.3 L 7.9 L (8.4-10.2) mg/dL - Imaging and Cardiology Echo: report reviewed (07/17/2019 - EF 60-65%; impaired relaxation; no significant valvular abnormalities) Cardiac cath: report reviewed (09/15/2019 mild non-obstructive CAD; 25% mid RCA stenosis; EF 55-60%. ) EKG: report reviewed, image reviewed - EKG Interpretation EKG: no acute changes EKG interpretations - EKG Sinus rhythms and dysrhythmias: sinus rhythm Chamber hypertrophy or enlargement: right atrial enlargment Assessment and Plan No plans for further ischemic workup at this time. Initiate PO Lopressor 25mg BID. Hold home Lisinopril for now given renal fxn. Pt seen in conjunction with Dr. LESLIE Jovel, who agrees with the assessment and plan of care. - Patient Problems (1) Chest pain Current Visit: Yes Status: Acute Qualifiers: Ischemic chest pain type: stable angina pectoris (2) COPD (chronic obstructive pulmonary disease) Current Visit: Yes Status: Chronic Qualifiers: COPD type: unspecified COPD Qualified Code(s): J44.9 - Chronic obstructive pulmonary disease, unspecified (3) Asthma Current Visit: Yes Status: Chronic (4) ANGELIC (acute kidney injury) Current Visit: Yes Status: Acute (5) Anemia Current Visit: Yes Status: Acute Qualifiers: Anemia type: unspecified type Qualified Code(s): D64.9 - Anemia, unspecified (6) Cocaine use Current Visit: Yes Status: Chronic (7) Hypertension Current Visit: Yes Status: Chronic Qualifiers: Hypertension type: essential hypertension Qualified Code(s): I10 - Essential (primary) hypertension (8) History of pulmonary embolism Current Visit: Yes Status: Chronic (9) HIV (human immunodeficiency virus infection) Current Visit: Yes Status: Chronic Qualifiers: HIV symptom status: asymptomatic Qualified Code(s): Z21 - Asymptomatic human immunodeficiency virus [HIV] infection status
[2019-10-23] MEDS ORDERED: ASPIRIN EC 325 MG TAB PO SCH (10:00)
--- NOTE | 2019-10-23 11:26 | Progress Note ---
Assessment and Plan Assessment and plan: (1) Chest pain Current Visit: Yes Status: Acute Plan to address problem: Patient admitted and placed on telemetry. Will check serial cardiac enzymes. Patient is placed on daily aspirin, sublingual nitroglycerin and IV morphine as needed for chest pain. Patient had a cardiac cath sometime in August 2019 and it showed a 25% RCA stenosis. We will await further evaluation and recommendation from cardiology. (2) Cocaine use Current Visit: Yes Status: Acute Plan to address problem: Patient counseled on quitting illicit drug use. (3) HIV (human immunodeficiency virus infection) Current Visit: No Status: Chronic Qualifiers: HIV symptom status: asymptomatic Qualified Code(s): Z21 - Asymptomatic human immunodeficiency virus [HIV] infection status Plan to address problem: We will encourage patient to follow-up with infectious disease. CD4 count is unknown. (4) DVT prophylaxis Current Visit: No Status: Acute Plan to address problem: Patient placed on subcutaneous heparin. (5) Full code status Current Visit: No Status: Acute (6) Hypertension Current Visit: No Status: Chronic Qualifiers: Hypertension type: essential hypertension Qualified Code(s): I10 - Essential (primary) hypertension Hospitalist Physical - Constitutional Vitals: Temp Pulse Resp BP Pulse Ox 98.2 F 89 19 142/88 94 10/23/19 07:24 10/23/19 08:23 10/23/19 08:23 10/23/19 07:24 10/23/19 08:23 General appearance: Present: no acute distress HEART Score - HEART Score Troponin: Troponin T < 0.010 ng/mL (0.00-0.029) 10/23/19 04:09 Results - Labs CBC & Chem 7: 10/23/19 02:55 10/23/19 02:55 Labs: Laboratory Last Values WBC 4.7 K/mm3 (4.5-11.0) 10/23/19 02:55 RBC 3.93 M/mm3 (3.65-5.03) 10/23/19 02:55 Hgb 8.6 gm/dl (11.8-15.2) L 10/23/19 02:55 Hct 27.8 % (35.5-45.6) L 10/23/19 02:55 MCV 71 fl (84-94) L 10/23/19 02:55 MCH 22 pg (28-32) L 10/23/19 02:55 MCHC 31 % (32-34) L 10/23/19 02:55 RDW 17.9 % (13.2-15.2) H 10/23/19 02:55 Plt Count 364 K/mm3 (140-440) 10/23/19 02:55 [place] % (Auto) Cutter Hand 10/23/19 02:55 Add Manual Diff Complete 10/23/19 02:55 Total Counted 100 10/23/19 02:55 Seg Neuts % (Manual) 64.0 % (40.0-70.0) 10/23/19 02:55 Band Neutrophils % 0 % 10/23/19 02:55 Lymphocytes % (Manual) 22.0 % (13.4-35.0) 10/23/19 02:55 Reactive Lymphs % (Man) 0 % 10/23/19 02:55 Monocytes % (Manual) 9.0 % (0.0-7.3) H 10/23/19 02:55 Eosinophils % (Manual) 4.0 % (0.0-4.3) 10/23/19 02:55 Basophils % (Manual) 1.0 % (0.0-1.8) 10/23/19 02:55 Metamyelocytes % 0 % 10/23/19 02:55 Myelocytes % 0 % 10/23/19 02:55 Promyelocytes % 0 % 10/23/19 02:55 Blast Cells % 0 % 10/23/19 02:55 Nucleated RBC % Not Reportable 10/23/19 02:55 Seg Neutrophils # Man 3.0 K/mm3 (1.8-7.7) 10/23/19 02:55 Band Neutrophils # 0.0 K/mm3 10/23/19 02:55 Lymphocytes # (Manual) 1.0 K/mm3 (1.2-5.4) L 10/23/19 02:55 Abs React Lymphs (Man) 0.0 K/mm3 10/23/19 02:55 Monocytes # (Manual) 0.4 K/mm3 (0.0-0.8) 10/23/19 02:55 Eosinophils # (Manual) 0.2 K/mm3 (0.0-0.4) 10/23/19 02:55 Basophils # (Manual) 0.0 K/mm3 (0.0-0.1) 10/23/19 02:55 Metamyelocytes # 0.0 K/mm3 10/23/19 02:55 Myelocytes # 0.0 K/mm3 10/23/19 02:55 Promyelocytes # 0.0 K/mm3 10/23/19 02:55 Blast Cells # 0.0 K/mm3 10/23/19 02:55 WBC Morphology Not Reportable 10/23/19 02:55 Hypersegmented Neuts Not Reportable 10/23/19 02:55 Hyposegmented Neuts Not Reportable 10/23/19 02:55 Hypogranular Neuts Not Reportable 10/23/19 02:55 Smudge Cells Not Reportable 10/23/19 02:55 Toxic Granulation Not Reportable 10/23/19 02:55 Toxic Vacuolation Not Reportable 10/23/19 02:55 Dohle Bodies Not Reportable 10/23/19 02:55 Pelger-Huet Anomaly Not Reportable 10/23/19 02:55 Ruma Rods Not Reportable 10/23/19 02:55 Platelet Estimate Consistent w auto 10/23/19 02:55 Clumped Platelets Not Reportable 10/23/19 02:55 Plt Clumps, EDTA Not Reportable 10/23/19 02:55 Large Platelets Not Reportable 10/23/19 02:55 Giant Platelets Not Reportable 10/23/19 02:55 Platelet Satelliting Not Reportable 10/23/19 02:55 Plt Morphology Comment Not Reportable 10/23/19 02:55 RBC Morphology Not Reportable 10/23/19 02:55 Dimorphic RBCs Not Reportable 10/23/19 02:55 Polychromasia Not Reportable 10/23/19 02:55 Hypochromasia 1+ 10/23/19 02:55 Poikilocytosis Not Reportable 10/23/19 02:55 Anisocytosis 1+ 10/23/19 02:55 Microcytosis Not Reportable 10/23/19 02:55 Macrocytosis Not Reportable 10/23/19 02:55 Spherocytes Not Reportable 10/23/19 02:55 Pappenheimer Bodies Not Reportable 10/23/19 02:55 Sickle Cells Not Reportable 10/23/19 02:55 Target Cells Not Reportable 10/23/19 02:55 Tear Drop Cells Not Reportable 10/23/19 02:55 Ovalocytes Not Reportable 10/23/19 02:55 Helmet Cells Not Reportable 10/23/19 02:55 David-Humnoke Bodies Not Reportable 10/23/19 02:55 [place] Rings Not Reportable 10/23/19 02:55 Don Cells Not Reportable 10/23/19 02:55 Bite Cells Not Reportable 10/23/19 02:55 Crenated Cell Not Reportable 10/23/19 02:55 Elliptocytes Not Reportable 10/23/19 02:55 Acanthocytes (Spur) Not Reportable 10/23/19 02:55 Rouleaux Not Reportable 10/23/19 02:55 Hemoglobin C Crystals Not Reportable 10/23/19 02:55 Schistocytes Not Reportable 10/23/19 02:55 Malaria parasites Not Reportable 10/23/19 02:55 Ric Bodies Not Reportable 10/23/19 02:55 Hem Pathologist Commnt No 10/23/19 02:55 PT 11.7 Sec. (12.2-14.9) L 10/23/19 02:55 INR 0.85 (0.87-1.13) L 10/23/19 02:55 Sodium 140 mmol/L (137-145) 10/23/19 02:55 Potassium 4.8 mmol/L (3.6-5.0) 10/23/19 02:55 Chloride 101.2 mmol/L (98-107) 10/23/19 02:55 Carbon Dioxide 24 mmol/L (22-30) 10/23/19 02:55 Anion Gap 20 mmol/L 10/23/19 02:55 BUN 20 mg/dL (9-20) 10/23/19 02:55 Creatinine 1.7 mg/dL (0.8-1.3) H 10/23/19 02:55 Estimated GFR 41 ml/min 10/23/19 02:55 BUN/Creatinine Ratio 12 % 10/23/19 02:55 Glucose 89 mg/dL (75-100) 10/23/19 02:55 Calcium 7.9 mg/dL (8.4-10.2) L 10/23/19 02:55 Troponin T < 0.010 ng/mL (0.00-0.029) 10/23/19 04:09 Triglycerides 98 mg/dL (2-149) 10/23/19 00:40 Cholesterol 199 mg/dL (50-199) 10/23/19 00:40 LDL Cholesterol Direct 102 mg/dL (50-130) 10/23/19 00:40 HDL Cholesterol 83 mg/dL (40-59) H 10/23/19 00:40 Cholesterol/HDL Ratio 2.39 % 10/23/19 00:40 [place]/IV: Voiding Method Urinal IV Catheter Type [Right Distal INT / Saline Lock Port Hand] Active Medications - Current Medications Current Medications: Generic Name Dose Route Start Last Admin Trade Name Freq PRN Reason Stop Dose Admin Acetaminophen 650 mg 10/22/19 22:56 Tylenol PO Q4H PRN Pain MILD(1-3)/Fever >100.5/KOENIG Aspirin 325 mg 10/23/19 10:00 10/23/19 09:41 Ecotrin PO 325 mg QDAY NADIA Administration Heparin Sodium (Porcine) 5,000 unit 10/23/19 06:00 10/23/19 06:25 Heparin SUB-Q 5,000 unit Q8HR NADIA Administration Labetalol HCl 20 mg 10/23/19 01:23 10/23/19 02:03 Labetalol IV 20 mg Q6HR PRN Administration Give for SBP greater than 160 Magnesium Hydroxide 30 ml 10/22/19 22:56 Milk Of Magnesia PO Q4H PRN Constipation Morphine Sulfate 2 mg 10/22/19 22:56 10/23/19 11:08 Morphine IV 2 mg Q5MIN PRN Administration Chest Pain Nitroglycerin 0.4 mg 10/22/19 22:56 Nitrostat SL Q5M PRN Chest Pain Ondansetron HCl 4 mg 10/22/19 22:56 Zofran IV Q8H PRN Nausea And Vomiting Sodium Chloride 10 ml 10/22/19 22:56 10/23/19 02:05 Sodium Chloride Flush Syringe 10 Ml IV 10 ml PRN PRN Administration LINE FLUSH Sodium Chloride 10 ml 10/23/19 10:00 10/23/19 10:45 Sodium Chloride Flush Syringe 10 Ml IV Not Given BID NADIA
[2019-10-23] MEDS ORDERED: IPRATROPIUM/ALBUTEROL SULFATE 3 ML AMPUL.NEB IH SCH (14:00)
--- NOTE | 2019-10-23 15:20 | Discharge Summary ---
Providers - Providers Date of Admission: 10/22/19 21:27 Date of discharge: 10/23/19 Attending physician: KIMBERLY GUTIERREZ 10/22/19 Consult to Cardiac Rehabilitation [CONS] Routine Reason For Exam: Phase I 10/22/19 22:56 Consult to Cardiology [CONS] Routine Consulting Provider: DEE RAE Reason For Exam: chest pain Primary care physician: [employer] Hospitalization Condition: Fair Disposition: DC-01 TO HOME OR SELFCARE Time spent for discharge: 32 min Core Measure Documentation - Palliative Care Palliative Care/ Comfort Measures: Not Applicable - Core Measures Any of the following diagnoses?: none Exam - Constitutional Vitals: Temp Pulse Resp BP Pulse Ox 98.3 F 70 20 148/93 97 10/23/19 11:25 10/23/19 13:59 10/23/19 13:59 10/23/19 11:25 10/23/19 13:38 General appearance: Present: no acute distress, well-nourished - EENT Eyes: Present: PERRL, EOM intact - Neck Neck: Present: supple, normal ROM - Respiratory Respiratory effort: normal Respiratory: bilateral: diminished, negative: rales, rhonchi, wheezing - Cardiovascular Rhythm: regular Heart Sounds: Present: S1 & S2 - Extremities Extremities: no ischemia, No edema Peripheral Pulses: within normal limits - Abdominal General gastrointestinal: Present: soft, non-tender, non-distended, normal bowel sounds - Integumentary Integumentary: Present: clear, warm - Musculoskeletal Musculoskeletal: strength equal bilaterally - Psychiatric Psychiatric: appropriate mood/affect, cooperative - Neurologic Neurologic: moves all extremities Plan Activity: advance as tolerated Diet: other (cardiac diet) Additional Instructions: If you have worsening symptoms contact MD or go to emergency room. Advised to drink plenty of oral fluids. Check with your optical advisor within 1 week. Follow-up jewel bearing polisher in 1 to 2 weeks. Do not take your BP medicine LISINOPRIL Follow up with: NIKOS SEWELL MD [Primary Care Provider] - 3-5 Days SAPNA HASSAN MD [Staff Physician] - 7 Days DEE RAE MD [Staff Physician] - 14 Days Prescriptions: Metoprolol [Lopressor TAB] 25 mg PO BID #60 tablet
[2019-10-23 16:20] VITALS: BP 122/83
[2019-10-23] MEDS ORDERED: METOPROLOL TARTRATE 25 MG TAB PO SCH (22:00)
== END 2019-10-23 16:27 | disposition home or self-care (01) ==
LOC: ED 05:38 → 4A 21:27
PROVIDERS: ADMIT Internal Medicine Geriatric Medicine; ATTEND Internal Medicine
DX: R07.89 Other chest pain (principal); F14.90 Cocaine use, unspecified, uncomplicated; I10 Essential (primary) hypertension; J44.9 Chronic obstructive pulmonary disease, unspecified; E78.5 Hyperlipidemia, unspecified; N17.9 Acute kidney failure, unspecified; D64.9 Anemia, unspecified; Z21 Asymptomatic human immunodeficiency virus [HIV] infection status; Z86.711 Personal history of pulmonary embolism; Z87.891 Personal history of nicotine dependence; Z79.82 Long term (current) use of aspirin
CPT/HCPCS: 36415; 71045; 80048; 80061; 84484; 85007; 85025; 85610; 93005; 94640; 94644; 96372; 96374; 96375; 96376; 99285; 99406; G0378; J1644; J2270; J2405

== ENCOUNTER 2019-10-24 16:12 | Emergency (ER) | payer SELFPAY ==
[2019-10-24 16:44] LABS: Hematocrit 29.9 % (35.5-45.6); Mean Corpuscular HGB Conc 30 % (32-34); Mean Corpuscular Volume 71 fl (84-94); Platelet Count 389 K/mm3 (140-440); Red Cell Distribution Width 17.5 % (13.2-15.2)
--- NOTE | 2019-10-24 16:46 | XRay Report ---
CHEST 1 VIEW 10/24/2019 4:36 PM INDICATION / CLINICAL INFORMATION: Cough. COMPARISON: 10/22/2019 FINDINGS: SUPPORT DEVICES: None. HEART / MEDIASTINUM: No significant abnormality. LUNGS / PLEURA: Calcified right upper lobe granulomas No significant pulmonary or pleural abnormality . No pneumothorax. ADDITIONAL FINDINGS: No significant additional findings. IMPRESSION: 1. No acute findings. Signer Name: Narendra Torres MD Signed: 10/24/2019 4:41 PM Workstation Name: [id number]
--- NOTE | 2019-10-24 17:20 | Emergency Department Report ---
ED General Adult HPI - General Chief complaint: Dyspnea/Respdistress Stated complaint: CP/SOB PUI?: No Time Seen by Provider: 10/24/19 17:18 Source: patient, EMS ( EMS documentation not available at time of chart dictatio n ), RN notes reviewed Mode of arrival: Ambulatory Limitations: No Limitations - History of Present Illness Initial comments: The patient was evaluated in the emergency department for symptoms described in the history of present illness. He/she was evaluated in the context of the global COVID-19 pandemic, which necessitated consideration that the patient might be at risk for infection with the virus that causes COVID-19. Institutional protocols and algorithms that pertain to the evaluation of patients at risk for COVID-19 are in a state of rapid change based on information released by regulatory bodies including the CDC and federal and state organizations. These policies and algorithms were followed during the patient's care in the emergency department. Please note that these policies, procedures and recommendations changed on a rapid basis. The patient is a 63-year-old gentleman. This patient is a frequent utilizer of this emergency room. I saw this patient 4 days ago. Please see my note from October 20, 2019 for complete details on the patient's past medical history. Today, the patient presents with his typical complaint of nontraumatic sporadic central, right-sided and left-sided chest pain. He also has a chronic shortness of breath. He was recently seen by cardiology, and he recently had a cardiac catheterization. Recent cardiology documentation indicates no further recom mendations for cardiac risk ratification. The patient denies vomiting and diaphoresis. The patient denies fever, abdominal pain, focal extremity weakness and or numbness. The patient endorses that he does not have insurance at this time and therefore he cannot afford his prescriptions, and he cannot follow-up with a primary care doctor or choirmaster until next month. He does not describe exacerbating or relieving factors that he is aware of. He indicates his pain does not radiate anywhere. -: week(s) Location: chest - Related Data Previous Rx's Medication Instructions Recorded Last Taken Type Ipratropium/Albuterol Sulfate 1 ampul IH TIDRT #50 ampul.neb 09/24/19 Unknown Rx [DUONEB *Not for PRN Use*] Sennosides Tab [Senokot] 8.6 mg PO Q12HR #30 tablet 09/24/19 Unknown Rx clonazePAM [Klonopin] 1 mg PO HS #10 09/24/19 1 Day Ago Rx ~10/22/19 1 mg traZODone 50 mg PO HS #14 09/24/19 Unknown Rx ALBUTEROL NEB's [Proventil 0.083% 2.5 mg IH TID PRN #30 neb 10/20/19 Unknown Rx NEBS] Aspirin EC [Halfprin EC] 81 mg PO QDAY #30 tablet.dr 10/20/19 Unknown Rx AtorvaSTATin [Lipitor] 40 mg PO QHS #30 tab 10/20/19 Unknown Rx Famotidine [Pepcid] 20 mg PO BID #60 tablet 10/20/19 Unknown Rx Metoprolol [Lopressor TAB] 25 mg PO BID #60 tablet 10/23/19 Unknown Rx Allergies Allergy/AdvReac Type Severity Reaction Status Date / Time No Known Allergies Allergy Verified 10/01/19 18:34 ED Review of Systems ROS: Stated complaint: CP/SOB Other details as noted in HPI Constitutional: denies: fever ENT: congestion Respiratory: shortness of breath Cardiovascular: chest pain Gastrointestinal: denies: vomiting ED Past Medical Hx - Past Medical History Previous Medical History?: Yes Hx Hypertension: Yes Hx Pulmonary Embolism: Yes Hx Asthma: Yes Hx COPD: Yes Hx HIV: Yes (unknown CD4 count) Additional medical history: Elevated Cholesterol & Chronic back pain. - Surgical History Past Surgical History?: No - Social History Smoking Status: Former Smoker Substance Use Type: Cocaine - Medications Home Medications: Home Medications Medication Instructions Recorded Confirmed Last Taken Type Ipratropium/Albuterol Sulfate 1 ampul IH TIDRT #50 ampul.neb 09/24/19 10/22/19 Unknown Rx [DUONEB *Not for PRN Use*] Sennosides Tab [Senokot] 8.6 mg PO Q12HR #30 tablet 09/24/19 10/22/19 Unknown Rx clonazePAM [Klonopin] 1 mg PO HS #10 09/24/19 10/23/19 1 Day Ago Rx ~10/22/19 1 mg traZODone 50 mg PO HS #14 09/24/19 10/22/19 Unknown Rx ALBUTEROL NEB's [Proventil 0.083% 2.5 mg IH TID PRN #30 neb 10/20/19 10/22/19 Unknown Rx NEBS] Aspirin EC [Halfprin EC] 81 mg PO QDAY #30 tablet. 10/20/19 10/22/19 Unknown Rx AtorvaSTATin [Lipitor] 40 mg PO QHS #30 tab 10/20/19 10/23/19 Unknown Rx Famotidine [Pepcid] 20 mg PO BID #60 tablet 10/20/19 10/22/19 Unknown Rx Metoprolol [Lopressor TAB] 25 mg PO BID #60 tablet 10/23/19 Unknown Rx ED Physical Exam - General Limitations: No Limitations General appearance: alert, in no apparent distress - Head Head exam: Present: atraumatic, normocephalic - Eye Eye exam: Present: normal appearance, EOMI. Absent: nystagmus - ENT ENT exam: Present: normal exam, normal orophraynx, mucous membranes moist, normal external ear exam - Neck Neck exam: Present: normal inspection, full ROM. Absent: tenderness, meningismus - Respiratory Respiratory exam: Present: normal lung sounds bilaterally. Absent: respiratory distress, wheezes, rales, rhonchi, stridor, decreased breath sounds - Cardiovascular Cardiovascular Exam: Present: regular rate, normal rhythm, normal heart sounds. Absent: bradycardia, tachycardia, irregular rhythm, systolic murmur, diastolic murmur, rubs, gallop - GI/Abdominal GI/Abdominal exam: Present: soft. Absent: distended, tenderness, guarding, rebound, rigid, pulsatile mass - Rectal Rectal exam: Present: deferred - Extremities Exam Extremities exam: Present: normal inspection, full ROM, other (2+ pulses noted in the bilateral upper and lower extremities. There is no palpable cord. negative Homans sign. Muscular compartments are soft. The pelvis is stable.). Absent: pedal edema, calf tenderness - Back Exam Back exam: Present: normal inspection, full ROM. Absent: tenderness, CVA tenderness (R), CVA tenderness (L), paraspinal tenderness, vertebral tenderness - Neurological Exam Neurological exam: Present: alert, normal gait, other (No facial droop. Tongue midline. Extraocular movements intact bilaterally. Facial sensation intact to light touch in V1, V2, V3 distribution bilaterally. 5 and a 5 strength in 4 extremities. Sensation intact to light touch in 4 extremities.). Absent: motor sensory deficit - Psychiatric Psychiatric exam: Present: normal affect, normal mood - Skin Skin exam: Present: warm, dry, intact, normal color. Absent: rash ED Course Vital Signs 10/24/19 16:17 Temperature 97.9 F Pulse Rate 74 Respiratory 22 Rate Blood Pressure 145/104 O2 Sat by Pulse 100 Oximetry ED Medical Decision Making - Lab Data Result diagrams: 10/24/19 16:25 10/24/19 16:25 Vital Signs 10/24/19 16:17 Temperature 97.9 F Pulse Rate 74 Respiratory 22 Rate Blood Pressure 145/104 O2 Sat by Pulse 100 Oximetry Lab Results 10/24/19 Range/Units 16:25 WBC 4.2 L (4.5-11.0) K/mm3 RBC 4.20 (3.65-5.03) M/mm3 Hgb 9.0 L (11.8-15.2) gm/dl Hct 29.9 L (35.5-45.6) % MCV 71 L (84-94) fl MCH 21 L (28-32) pg MCHC 30 L (32-34) % RDW 17.5 H (13.2-15.2) % Plt Count 389 (140-440) K/mm3 [place] % (Auto) Research/Program Director Add Manual Diff Complete Total Counted 100 Seg Neuts % (Manual) 50.0 (40.0-70.0) % Band Neutrophils % 0 % Lymphocytes % (Manual) 27.0 (13.4-35.0) % Reactive Lymphs % (Man) 3.0 % Monocytes % (Manual) 15.0 H (0.0-7.3) % Eosinophils % (Manual) 4.0 (0.0-4.3) % Basophils % (Manual) 1.0 (0.0-1.8) % Metamyelocytes % 0 % Myelocytes % 0 % Promyelocytes % 0 % Blast Cells % 0 % Nucleated RBC % Not Reportable Seg Neutrophils # Man 2.1 (1.8-7.7) K/mm3 Band Neutrophils # 0.0 K/mm3 Lymphocytes # (Manual) 1.1 L (1.2-5.4) K/mm3 Abs React Lymphs (Man) 0.1 K/mm3 Monocytes # (Manual) 0.6 (0.0-0.8) K/mm3 Eosinophils # (Manual) 0.2 (0.0-0.4) K/mm3 Basophils # (Manual) 0.0 (0.0-0.1) K/mm3 Metamyelocytes # 0.0 K/mm3 Myelocytes # 0.0 K/mm3 Promyelocytes # 0.0 K/mm3 Blast Cells # 0.0 K/mm3 WBC Morphology Not Reportable Hypersegmented Neuts Not Reportable Hyposegmented Neuts Not Reportable Hypogranular Neuts Not Reportable Smudge Cells Not Reportable Toxic Granulation Not Reportable Toxic Vacuolation Not Reportable Dohle Bodies Not Reportable Pelger-Huet Anomaly Not Reportable Ruma Rods Not Reportable Platelet Estimate Consistent w auto Clumped Platelets Not Reportable Plt Clumps, EDTA Not Reportable Large Platelets Not Reportable Giant Platelets Not Reportable Platelet Satelliting Not Reportable Plt Morphology Comment Not Reportable RBC Morphology Not Reportable Dimorphic RBCs Not Reportable Polychromasia Not Reportable Hypochromasia 2+ Poikilocytosis Not Reportable Anisocytosis 1+ Microcytosis Not Reportable Macrocytosis Not Reportable Spherocytes Not Reportable Pappenheimer Bodies Not Reportable Sickle Cells Not Reportable Target Cells Not Reportable Tear Drop Cells Not Reportable Ovalocytes Not Reportable Helmet Cells Not Reportable David-Lyford Bodies Not Reportable [place] Rings Not Reportable Don Cells Not Reportable Bite Cells Not Reportable Crenated Cell Not Reportable Elliptocytes Not Reportable Acanthocytes (Spur) Not Reportable Rouleaux Not Reportable Hemoglobin C Crystals Not Reportable Schistocytes Not Reportable Malaria parasites Not Reportable Ric Bodies Not Reportable Hem Pathologist Commnt No Lab Results 10/24/19 10/24/19 Range/Units 16:25 16:25 WBC 4.2 L (4.5-11.0) K/mm3 RBC 4.20 (3.65-5.03) M/mm3 Hgb 9.0 L (11.8-15.2) gm/dl Hct 29.9 L (35.5-45.6) % MCV 71 L (84-94) fl MCH 21 L (28-32) pg MCHC 30 L (32-34) % RDW 17.5 H (13.2-15.2) % Plt Count 389 (140-440) K/mm3 [place] % (Auto) Research/Program Director Add Manual Diff Complete Total Counted 100 Seg Neuts % (Manual) 50.0 (40.0-70.0) % Band Neutrophils % 0 % Lymphocytes % (Manual) 27.0 (13.4-35.0) % Reactive Lymphs % (Man) 3.0 % Monocytes % (Manual) 15.0 H (0.0-7.3) % Eosinophils % (Manual) 4.0 (0.0-4.3) % Basophils % (Manual) 1.0 (0.0-1.8) % Metamyelocytes % 0 % Myelocytes % 0 % Promyelocytes % 0 % Blast Cells % 0 % Nucleated RBC % Not Reportable Seg Neutrophils # Man 2.1 (1.8-7.7) K/mm3 Band Neutrophils # 0.0 K/mm3 Lymphocytes # (Manual) 1.1 L (1.2-5.4) K/mm3 Abs React Lymphs (Man) 0.1 K/mm3 Monocytes # (Manual) 0.6 (0.0-0.8) K/mm3 Eosinophils # (Manual) 0.2 (0.0-0.4) K/mm3 Basophils # (Manual) 0.0 (0.0-0.1) K/mm3 Metamyelocytes # 0.0 K/mm3 Myelocytes # 0.0 K/mm3 Promyelocytes # 0.0 K/mm3 Blast Cells # 0.0 K/mm3 WBC Morphology Not Reportable Hypersegmented Neuts Not Reportable Hyposegmented Neuts Not Reportable Hypogranular Neuts Not Reportable Smudge Cells Not Reportable Toxic Granulation Not Reportable Toxic Vacuolation Not Reportable Dohle Bodies Not Reportable Pelger-Huet Anomaly Not Reportable Ruma Rods Not Reportable Platelet Estimate Consistent w auto Clumped Platelets Not Reportable Plt Clumps, EDTA Not Reportable Large Platelets Not Reportable Giant Platelets Not Reportable Platelet Satelliting Not Reportable Plt Morphology Comment Not Reportable RBC Morphology Not Reportable Dimorphic RBCs Not Reportable Polychromasia Not Reportable Hypochromasia 2+ Poikilocytosis Not Reportable Anisocytosis 1+ Microcytosis Not Reportable Macrocytosis Not Reportable Spherocytes Not Reportable Pappenheimer Bodies Not Reportable Sickle Cells Not Reportable Target Cells Not Reportable Tear Drop Cells Not Reportable Ovalocytes Not Reportable Helmet Cells Not Reportable David-Lyford Bodies Not Reportable [place] Rings Not Reportable Don Cells Not Reportable Bite Cells Not Reportable Crenated Cell Not Reportable Elliptocytes Not Reportable Acanthocytes (Spur) Not Reportable Rouleaux Not Reportable Hemoglobin C Crystals Not Reportable Schistocytes Not Reportable Malaria parasites Not Reportable Ric Bodies Not Reportable Hem Pathologist Commnt No Sodium 141 (137-145) mmol/L Potassium 4.9 (3.6-5.0) mmol/L Chloride 101.9 (98-107) mmol/L Carbon Dioxide 27 (22-30) mmol/L Anion Gap 17 mmol/L BUN 24 H (9-20) mg/dL Creatinine 1.6 H (0.8-1.3) mg/dL Estimated GFR 44 ml/min BUN/Creatinine Ratio 15 % Glucose 98 (75-100) mg/dL Calcium 8.0 L (8.4-10.2) mg/dL Troponin T < 0.010 (0.00-0.029) ng/mL - EKG Data -: EKG Interpreted by [facility] EKG shows normal: sinus rhythm Rate: normal - EKG Data 10/24/19 17:31 EKG shows a sinus rhythm, 74 bpm, normal axis, QTC 436 ms, there is left ventricular hypertrophy and motion artifact. The EKG is not a STEMI. The EKG has nonspecific abnormalities. The EKG appears to be grossly unchanged from prior EKGs. - Radiology Data Radiology results: pending, report reviewed, image reviewed X-ray of the chest negative for acute findings. Chronic findings are noted, and appears to be unchanged from prior. - Medical Decision Making Differential diagnosis, including not limited to: Chronic chest pain, chronic shortness of breath, chronic noncompliance, case management patient Assessment and plan: 63-year-old gentleman whom I have evaluated multiple times in the past, who has had 4 visits to this emergency department this month with a complaint of chest pain or shortness of breath. His EKG is unchanged multiple times. He recently had a cardiac catheterization. He has had multiple CT scans of the chest within the past year and 1/2 to 2 years which were negative for pulmonary embolism. He was recently seen by cardiology who did not recommend further cardiac risk ratification. We appreciate that the patient has multiple medical comorbidities, but he is not clinically decompensated at this time. He is resting comfortably, in no acute distress, laboratory studies appear to be at baseline, and the patient does not meet criteria for hospitalization or admission at this time. He is clinically sober at this time. Patient will be given a good Rx affordable prescription card. I recently re filled his prescription medications. I will also place a case management consultation in the computer so that they may consult the/assist the patient tomorrow and provide assistance with following up as an outpatient and and assisting with prescriptions. Critical care attestation.: If time is entered above; I have spent that time in minutes in the direct care of this critically ill patient, excluding procedure time. ED Disposition Clinical Impression: Chronic dyspnea, Chronic chest pain, Case management patient, Medical non- compliance Disposition: DC- TO HOME OR SELFCARE Is pt being admited?: No Does the pt Need Aspirin: No Condition: Stable Additional Instructions: Please continue the outpatient medications that were recently prescribed for you by this emergency department. For the patient's convenience, he is being provided with a good Rx affordable prescription drug savings card. Please follow the instructions on the card to obtain assistance and acquiring affordable prescriptions. Recommend abstinence from tobacco, alcohol, cocaine, recreational drugs. Recommend follow-up with a primary care doctor/choirmaster within the next week. Please return to the emergency room right away with new pain, worsening pain, migration of pain, projectile vomiting, change in mental status, confusion, inability to tolerate liquid feeds, new, worsened or different symptoms not present on the initial emergency room evaluation Referrals: JOSE NATARAJAN MD [Staff Physician] - 7-10 days CONY SIMPSON MD [Staff Physician] - 7-10 days
[2019-10-24 17:23] LABS: Anisocytosis 1+; Hypochromasia 2+; Platelet Estimate Consistent w Auto; Total Cells Counted 100
[2019-10-24] MEDS ORDERED: FAMOTIDINE 20 MG TAB PO STA (17:25)
[2019-10-24] MEDS ORDERED: ALBUTEROL 2.5 MG/3 ML NEBU IH STA (17:25)
[2019-10-24] MEDS ORDERED: METOPROLOL TARTRATE 25 MG TAB PO STA (17:25)
[2019-10-24] MEDS ORDERED: ASPIRIN EC 81 MG TAB PO ONE (17:25)
[2019-10-24 17:42] LABS: BUN/Creatinine Ratio 15; Blood Urea Nitrogen 24 mg/dL (9-20); Hemolysis Index 1
[2019-10-24 17:52] VITALS: BP 147/99
== END 2019-10-24 18:15 | disposition home or self-care (01) ==
LOC: ED 16:12
DX: R07.89 Other chest pain (principal); R06.02 Shortness of breath; G89.29 Other chronic pain
CPT/HCPCS: 36415; 71045; 80048; 84484; 85007; 85025; 94644; 99284; A9270

== ENCOUNTER 2019-11-02 00:54 | Observation (INO) | payer MEDICARE ==
[2019-11-02] MEDS ORDERED: ALBUTEROL 2.5 MG/3 ML NEBU IH ONE (01:14)
[2019-11-02] MEDS ORDERED: IPRATROPIUM 0.02% NEBU 2.5 ML IH ONE (01:14)
[2019-11-02 01:41] LABS: ABG Base Excess 2.6 mmol/L (-2.0-3.0); ABG HCO3 28.4 mmol/L (20.0-26.0); ABG Methemoglobin 0.4 % (0.0-1.5); ABG Oxygen Saturation 96.7 % (95.0-99.0); ABG PCO2 51.3 mm Hg; ABG PH 7.361 pH Units (7.350-7.450); ABG PO2 82.6 mm Hg (80.0-90.0)
[2019-11-02 01:45] LABS: Basophils % (Auto) 0.4 % (0.0-1.8); Eosinophils # (Auto) 0.2 K/mm3 (0.0-0.4); Eosinophils % (Auto) 2.6 % (0.0-4.3); Lymphocytes # (Auto) 1.2 K/mm3 (1.2-5.4); Lymphocytes % (Auto) 18.2 % (13.4-35.0); Mean Corpuscular HGB Conc 31 % (32-34); Mean Corpuscular Volume 70 fl (84-94); Monocytes # (Auto) 0.9 K/mm3 (0.0-0.8); Monocytes % (Auto) 14.2 % (0.0-7.3); Platelet Count 330 K/mm3 (140-440); Red Blood Count 3.71 M/mm3 (3.65-5.03); Red Cell Distribution Width 18.2 % (13.2-15.2)
[2019-11-02 01:47] LABS: INR 0.99 (0.87-1.13)
[2019-11-02 01:48] LABS: Partial Thromboplastin Time 25.7 Sec. (24.2-36.6)
--- NOTE | 2019-11-02 01:51 | XRay Report ---
CHEST 1 VIEW INDICATION: sob COMPARISON: 10/26/2019 FINDINGS: SUPPORT DEVICES: None. HEART / MEDIASTINUM: No significant abnormality. LUNGS / PLEURA: No significant pulmonary or pleural abnormality. No pneumothorax. ADDITIONAL FINDINGS: IMPRESSION: 1. No acute cardiopulmonary disease Signer Name: Te Zarate MD Signed: 11/02/2019 1:47 AM Workstation Name: [id number]
[2019-11-02 01:57] LABS: BUN/Creatinine Ratio 11; Blood Urea Nitrogen 17 mg/dL (9-20); Calcium 7.6 mg/dL (8.4-10.2); Hemolysis Index 0
--- NOTE | 2019-11-02 02:17 | Emergency Department Report ---
ED Shortness of Breath HPI - General Chief Complaint: Dyspnea/Respdistress Stated Complaint: RICKY Time Seen by Provider: 11/02/19 01:00 Source: EMS Mode of arrival: Stretcher Limitations: Other - History of Present Illness Initial Comments: 63-year-old male with history of COPD presents to ED with difficulty breathing. Patient has had multiple visits to this facility for same. Patient admits to using cocaine approximately 1 week ago. Patient also had an admission sometime last week. Patient reports his difficulty breathing started this evening. EMS was called, patient was given albuterol nebulizer, Solu-Medrol 125 mg, magnesium sulfate 2 g IV. Patient presents to ED diaphoretic and in tripod position in acute respiratory distress. Patient immediately placed on BiPAP. MD Complaint: shortness of breath -: Last night Severity: severe Consistency: constant Improves With: nothing Worsens With: exertion Known History Of: COPD Associated Symptoms: chest pain Treatments Prior to Arrival: bronchodilator, other - Related Data Home Oxygen Therapy: No Previous Rx's Medication Instructions Recorded Last Taken Type Ipratropium/Albuterol Sulfate 1 ampul IH TIDRT #50 ampul.neb 09/24/19 Unknown Rx [DUONEB *Not for PRN Use*] clonazePAM [Klonopin] 1 mg PO HS #10 09/24/19 1 Day Ago Rx ~10/22/19 1 mg traZODone 50 mg PO HS #14 09/24/19 Unknown Rx Aspirin EC [Halfprin EC] 81 mg PO QDAY #30 tablet. 10/24/19 Unknown Rx AtorvaSTATin [Lipitor] 40 mg PO QHS #30 tab 10/24/19 Unknown Rx Famotidine [Pepcid] 20 mg PO BID #60 tablet 10/24/19 Unknown Rx Sennosides Tab [Senokot] 8.6 mg PO Q12HR #30 tablet 10/24/19 Unknown Rx ALBUTEROL NEB's [Proventil 0.083% 2.5 mg IH TID PRN #30 neb 10/28/19 Unknown Rx NEBS] Fluticasone/Vilanterol [Breo 1 each IH DAILY #1 blst.w.dev 10/28/19 Unknown Rx Ellipta 100-25 Mcg INH] Metoprolol [Lopressor TAB] 25 mg PO BID #60 tablet 10/28/19 Unknown Rx Prednisone [predniSONE 10 mg 10 mg PO .TAPER #1 tab.ds.pk 10/28/19 Unknown Rx (6-Day Pack, 21 Tabs)] Allergies Allergy/AdvReac Type Severity Reaction Status Date / Time No Known Allergies Allergy Verified 10/01/19 18:34 ED Review of Systems ROS: Stated complaint: RICKY Other details as noted in HPI Comment: All other systems reviewed and negative Constitutional: denies: chills, fever Respiratory: shortness of breath Cardiovascular: chest pain ED Past Medical Hx - Past Medical History Hx Hypertension: Yes Hx Pulmonary Embolism: Yes Hx Asthma: Yes Hx COPD: Yes Hx HIV: Yes (unknown CD4 count) Additional medical history: Elevated Cholesterol & Chronic back pain. - Social History Smoking Status: Current Some Day Smoker Substance Use Type: Alcohol, Cocaine - Medications Home Medications: Home Medications Medication Instructions Recorded Confirmed Last Taken Type Ipratropium/Albuterol Sulfate 1 ampul IH TIDRT #50 ampul.neb 09/24/19 10/22/19 Unknown Rx [DUONEB *Not for PRN Use*] clonazePAM [Klonopin] 1 mg PO HS #10 09/24/19 10/23/19 1 Day Ago Rx ~10/22/19 1 mg traZODone 50 mg PO HS #14 09/24/19 10/22/19 Unknown Rx Aspirin EC [Halfprin EC] 81 mg PO QDAY #30 tablet. 10/24/19 Unknown Rx AtorvaSTATin [Lipitor] 40 mg PO QHS #30 tab 10/24/19 Unknown Rx Famotidine [Pepcid] 20 mg PO BID #60 tablet 10/24/19 Unknown Rx Sennosides Tab [Senokot] 8.6 mg PO Q12HR #30 tablet 10/24/19 Unknown Rx ALBUTEROL NEB's [Proventil 0.083% 2.5 mg IH TID PRN #30 neb 10/28/19 Unknown Rx NEBS] Fluticasone/Vilanterol [Breo 1 each IH DAILY #1 blst.w.dev 10/28/19 Unknown Rx Ellipta 100-25 Mcg INH] Metoprolol [Lopressor TAB] 25 mg PO BID #60 tablet 10/28/19 Unknown Rx Prednisone [predniSONE 10 mg 10 mg PO .TAPER #1 tab.ds.pk 09/03/20 Unknown Rx (6-Day Pack, 21 Tabs)] ED Physical Exam - General Limitations: Other General appearance: alert - Head Head exam: Present: atraumatic, normocephalic - Eye Eye exam: Present: normal appearance, EOMI - ENT ENT exam: Present: mucous membranes moist - Neck Neck exam: Present: normal inspection - Respiratory Respiratory exam: Present: respiratory distress, accessory muscle use, decreased breath sounds - Cardiovascular Cardiovascular Exam: Present: regular rate, normal rhythm - GI/Abdominal GI/Abdominal exam: Present: soft. Absent: distended, tenderness - Extremities Exam Extremities exam: Present: normal inspection. Absent: pedal edema, calf tenderness - Neurological Exam Neurological exam: Present: alert, oriented X3 - Psychiatric Psychiatric exam: Present: normal affect, normal mood - Skin Skin exam: Present: diaphoretic ED Course Vital Signs 11/02/19 11/02/19 11/02/19 01:00 01:15 01:22 Temperature 98 F Pulse Rate 81 86 Pulse Rate [ 90 Anterior Bilateral Throughout] Respiratory 24 32 H Rate Respiratory 28 H Rate [Anterior Bilateral Throughout] Blood Pressure 194/121 [Left] O2 Sat by Pulse 95 98 Oximetry 11/02/19 11/02/19 11/02/19 01:32 01:56 02:15 Temperature Pulse Rate 84 76 Pulse Rate [ 88 Anterior Bilateral Throughout] Respiratory 20 19 Rate Respiratory 18 Rate [Anterior Bilateral Throughout] Blood Pressure 166/114 168/112 [Left] O2 Sat by Pulse 98 100 Oximetry 11/02/19 03:22 Temperature Pulse Rate 62 Pulse Rate [ Anterior Bilateral Throughout] Respiratory 26 H Rate Respiratory Rate [Anterior Bilateral Throughout] Blood Pressure 156/106 [Left] O2 Sat by Pulse 98 Oximetry ED Medical Decision Making - Lab Data Result diagrams: 11/02/19 01:21 11/02/19 01:21 - EKG Data -: EKG Interpreted by [facility] EKG shows normal: sinus rhythm, axis, intervals, QRS complexes, ST-T waves Rate: normal - EKG Data Interpretation: no acute changes - Radiology Data Radiology results: report reviewed, image reviewed - Medical Decision Making 63-year-old male with acute COPD exacerbation requiring BiPAP. Patient given albuterol nebs, Solu-Medrol, mag sulfate. Labs are unremarkable. Chest x-ray shows no acute findings. Patient will be admitted to hospitalist, Dr. Cook, for further management. - Differential Diagnosis COPD, pneumonia, pulmonary edema Critical Care Time: Yes Critical care time in (mins) excluding proc time.: 35 Critical care attestation.: If time is entered above; I have spent that time in minutes in the direct care of this critically ill patient, excluding procedure time. Critical Care Time: 35 min ED Disposition Clinical Impression: Acute respiratory failure with hypoxia, COPD exacerbation Disposition: OP ADMIT IP TO THIS HOSP Is pt being admited?: Yes Condition: Stable Time of Disposition: 02:17
[2019-11-02] MEDS ORDERED: ACETAMINOPHEN 325 MG TAB PO PRN (03:04)
[2019-11-02] MEDS ORDERED: DEXTROSE 50% IN WATER (25GM) 50 ML SYRINGE IV PRN (03:04)
[2019-11-02] MEDS ORDERED: MAGNESIUM HYDROXIDE (MOM) ORAL LIQD UDC PO PRN (03:04)
[2019-11-02] MEDS ORDERED: ONDANSETRON 4 MG/2 ML INJ IV PRN (03:04)
--- NOTE | 2019-11-02 03:32 | History and Physical Report ---
History of Present Illness Date of examination: 11/02/19 Date of admission: 11/02/2019 Chief complaint: Shortness of Breath History of present illness: 63-year-old male with known history of COPD who has been admitted to this hospital on multiple occasions presenting to the emergency room today complaining of shortness of breath. Patient admits to using cocaine about a week ago. And started having shortness of breath sometime this evening. EMS was called and patient had nebulizing treatments, IV Solu-Medrol and magnesium with some improvement. Patient continues to smoke tobacco on a daily basis and has been admitted on multiple occasions with similar complaints. Upon arrival in the emergency room patient was found to be in respiratory distress and was diaphoretic. Was subsequently placed on BiPAP. Work-up in the emergency room today including chest x-ray did not reveal any significant abnormality. Past History Past Medical History: hypertension, hyperlipidemia, pulmonary embolism, other (HIV +ve - unknown CD 4 count,) Past Surgical History: Other (Chronic back pain) Social history: smoking (Current daily Smoker), alcohol abuse, other (Uses Cociane) Family history: no significant family history Medications and Allergies Allergies Allergy/AdvReac Type Severity Reaction Status Date / Time No Known Allergies Allergy Verified 10/01/19 18:34 Home Medications Medication Instructions Recorded Confirmed Last Taken Type Ipratropium/Albuterol Sulfate 1 ampul IH TIDRT #50 ampul.andre 09/24/19 10/22/19 Unknown Rx [DUONEB *Not for PRN Use*] clonazePAM [Klonopin] 1 mg PO HS #10 09/24/19 10/23/19 1 Day Ago Rx ~10/22/19 1 mg traZODone 50 mg PO HS #14 09/24/19 10/22/19 Unknown Rx Aspirin EC [Halfprin EC] 81 mg PO QDAY #30 tablet. 10/24/19 Unknown Rx AtorvaSTATin [Lipitor] 40 mg PO QHS #30 tab 10/24/19 Unknown Rx Famotidine [Pepcid] 20 mg PO BID #60 tablet 10/24/19 Unknown Rx Sennosides Tab [Senokot] 8.6 mg PO Q12HR #30 tablet 10/24/19 Unknown Rx ALBUTEROL NEB's [Proventil 0.083% 2.5 mg IH TID PRN #30 neb 10/28/19 Unknown Rx NEBS] Fluticasone/Vilanterol [Breo 1 each IH DAILY #1 blst.w.dev 10/28/19 Unknown Rx Ellipta 100-25 Mcg INH] Metoprolol [Lopressor TAB] 25 mg PO BID #60 tablet 10/28/19 Unknown Rx Prednisone [predniSONE 10 mg 10 mg PO .TAPER #1 tab.ds.pk 10/28/19 Unknown Rx (6-Day Pack, 21 Tabs)] Review of Systems Constitutional: no fever, no chills Ears, nose, mouth and throat: no nasal congestion, no sore throat Cardiovascular: no chest pain, no palpitations Respiratory: cough, shortness of breath Gastrointestinal: no abdominal pain, no nausea, no vomiting, no diarrhea Genitourinary Male: no dysuria, no hematuria, no flank pain Musculoskeletal: no neck pain, no low back pain Integumentary: no rash, no pruritis Neurological: no headaches, no confusion Psychiatric: no anxiety, no depression Exam - Constitutional Vitals: Temp Pulse Resp BP Pulse Ox 98 F 62 26 H 156/106 98 11/02/19 01:00 11/02/19 03:22 11/02/19 03:22 11/02/19 03:22 11/02/19 03:22 General appearance: Present: no acute distress, well-nourished - EENT Eyes: Present: PERRL, EOM intact. Absent: scleral icterus ENT: hearing intact, clear oral mucosa, dentition normal - Neck Neck: Present: supple, normal ROM - Respiratory Respiratory effort: normal Respiratory: bilateral: diminished - Cardiovascular Rhythm: regular Heart Sounds: Present: S1 & S2. Absent: gallop, systolic murmur, diastolic murmur, rub - Extremities Extremities: no ischemia, pulses intact, pulses symmetrical, No edema, Full ROM Peripheral Pulses: within normal limits - Abdominal General gastrointestinal: Present: soft, non-tender, non-distended, normal bowel sounds. Absent: mass - Integumentary Integumentary: Present: clear, warm, dry. Absent: rash - Musculoskeletal Musculoskeletal: strength equal bilaterally - Psychiatric Psychiatric: appropriate mood/affect, intact judgment & insight, memory intact, cooperative - Neurologic Neurologic: CNII-XII intact, no focal deficits, moves all extremities HEART Score - HEART Score Troponin: Troponin T < 0.010 ng/mL (0.00-0.029) 11/02/19 01:21 Results - Labs CBC & Chem 7: 11/02/19 01:21 11/02/19 01:21 Labs: Abnormal lab results 11/02/19 11/02/19 11/02/19 Range/Units 01:14 01:21 01:21 Hgb 8.0 L (11.8-15.2) gm/dl Hct 26.0 L (35.5-45.6) % MCV 70 L (84-94) fl MCH 21 L (28-32) pg MCHC 31 L (32-34) % RDW 18.2 H (13.2-15.2) % [place] % (Auto) 14.2 H (0.0-7.3) % [place] # 0.9 H (0.0-0.8) K/mm3 ABG HCO3 28.4 H (20.0-26.0) mmol/L ABG Hemoglobin 7.9 L (14.0-18.0) gm/dl Oxyhemoglobin 94.7 L (95.0-99.0) % Creatinine 1.6 H (0.8-1.3) mg/dL Glucose 120 H (75-100) mg/dL Calcium 7.6 L (8.4-10.2) mg/dL Assessment and Plan - Patient Problems (1) Acute respiratory failure with hypoxia Current Visit: Yes Status: Acute Plan to address problem: Possibly secondary to COPD exacerbation. We will keep O2 saturation greater or equal to 94%. (2) COPD exacerbation Current Visit: Yes Status: Acute Plan to address problem: Patient placed on nebulizing treatments and IV steroid. (3) History of HIV infection Current Visit: Yes Status: Acute Plan to address problem: CD4 count unknown. Patient encouraged to follow-up with infectious disease. (4) DVT prophylaxis Current Visit: No Status: Acute Plan to address problem: We will place patient on subcutaneous heparin. (5) Full code status Current Visit: No Status: Acute
[2019-11-02] MEDS: HEPARIN 5,000 UNIT/1 ML VIAL SUB-Q SCH ×3 (06:25→21:37)
[2019-11-02] MEDS: methylPREDNISolone Sod Succinate 40 MG/1 ML INJ IV SCH ×3 (06:25→21:38)
[2019-11-02] MEDS: IPRATROPIUM/ALBUTEROL SULFATE 3 ML AMPUL.NEB IH SCH ×5 (06:28→21:00)
--- NOTE | 2019-11-02 15:00 | Event Note ---
Date: 11/02/19 Patient seen and examined c/o SOB, on NC O2 cont nebs, steroid possible d/c tomorrow
[2019-11-02] MEDS: oxyCODONE /ACETAMINOPHEN 5-325MG TAB PO PRN ×2 (15:25→21:38)
[2019-11-03] MEDS: IPRATROPIUM/ALBUTEROL SULFATE 3 ML AMPUL.NEB IH SCH ×2 (02:18→07:45)
[2019-11-03] MEDS: oxyCODONE /ACETAMINOPHEN 5-325MG TAB PO PRN ×2 (05:12→12:04)
[2019-11-03] MEDS: methylPREDNISolone Sod Succinate 40 MG/1 ML INJ IV SCH (05:12)
[2019-11-03] MEDS: HEPARIN 5,000 UNIT/1 ML VIAL SUB-Q SCH (05:16)
[2019-11-03 06:37] LABS: Basophils % (Auto) 0.1 % (0.0-1.8); Hematocrit 25.3 % (35.5-45.6); Hemoglobin 7.9 gm/dl (11.8-15.2); Lymphocytes # (Auto) 0.7 K/mm3 (1.2-5.4); Lymphocytes % (Auto) 8.6 % (13.4-35.0); Mean Corpuscular HGB Conc 31 % (32-34); Monocytes # (Auto) 0.5 K/mm3 (0.0-0.8); Monocytes % (Auto) 5.5 % (0.0-7.3); Platelet Count 376 K/mm3 (140-440); Red Blood Count 3.72 M/mm3 (3.65-5.03); Red Cell Distribution Width 18.2 % (13.2-15.2)
[2019-11-03 06:38] LABS: Mean Corpuscular Volume 68 fl (84-94)
[2019-11-03 06:49] LABS: BUN/Creatinine Ratio 18; Blood Urea Nitrogen 20 mg/dL (9-20); Calcium 7.4 mg/dL (8.4-10.2); Hemolysis Index 0
[2019-11-03] MEDS ORDERED: FLUTICASONE IH SCH (10:30)
[2019-11-03] MEDS ORDERED: VILANTEROL IH SCH (10:30)
[2019-11-03] MEDS ORDERED: amLODIPine 10 MG TAB PO SCH (11:30)
[2019-11-03 11:44] VITALS: BP 152/90
[2019-11-03] MEDS ORDERED: METOPROLOL TARTRATE 25 MG TAB PO SCH ×2 (12:00→22:00)
[2019-11-03] MEDS ORDERED: IPRATROPIUM/ALBUTEROL SULFATE 3 ML AMPUL.NEB IH SCH (14:00)
--- NOTE | 2019-11-03 15:30 | Discharge Summary ---
Providers - Providers Date of Admission: 11/02/19 03:08 Date of discharge: 11/03/19 Attending physician: SUE LOEN Primary care physician: FIREWORKS MAKER Hospitalization Condition: Stable Pertinent studies: CXR Hospital course: 63-year-old male with known history of COPD, HIV, with history of cocaine and tobacco abuse who has been admitted to this hospital on multiple occasions presented to the emergency room this time with complaining of shortness of breath. Patient admited using cocaine about a week ago. EMS was called and patient had nebulizing treatments, IV Solu-Medrol and magnesium with some improvement. Upon arrival in the emergency room patient was found to be in respiratory distress and was diaphoretic. Was subsequently placed on BiPAP. Patient was admitted to medical floor with scheduled nebs, iv steroids, weaned off from BiPAP and placed on supplemental O2 to keep O2 sat at 94%. CXR showed no infiltrates. Patients symptom improved with medical management. Patient was then discharged home in stable condition with outpt f/u. Discharge diagnosis: Acute hypoxic and hypercapnic respiratory failure, resolved COPD with acute exacerbation, resolved HIV, on antiretroviral medications Cocaine abuse, counseled Tobacco abuse, counseled Hypertension, continue home medications Disposition: DC- TO HOME OR SELFCARE Time spent for discharge: 34 minutes Core Measure Documentation - Palliative Care Palliative Care/ Comfort Measures: Not Applicable - Core Measures Any of the following diagnoses?: none Exam - Physical Exam Narrative exam: GENERAL: well-developed and well-nourished male lying on bed appeared to be in no discomfort. HEENT: Normocephalic. Atraumatic. No conjunctival congestion or icterus. Patient has moist mucous membranes. NECK: Supple. Trachea midline. CHEST/LUNGS: Clear to auscultated bilaterally, breathing nonlabored. No wheezes crackles or rhonchi. HEART/CARDIOVASCULAR: Regular in rate and rhythm. S1 and S2 positive. ABDOMEN: Abdomen is soft, nontender. Patient has normal bowel sounds. SKIN: There is no rash. Warm and dry. NEURO: No focal motor deficit. Follows command. MUSCULOSKELETAL: No joint effusion or tenderness. EXTRIMITY: No edema, no cyanosis or clubbing. PSYCH: Cooperative. - Constitutional Vitals: Temp Pulse Resp BP Pulse Ox 97.3 F L 71 20 152/90 100 11/03/19 11:39 11/03/19 11:44 11/03/19 11:39 11/03/19 11:44 11/03/19 11:39 Plan Activity: advance as tolerated Weight Bearing Status: Weight Bear as Tolerated Diet: low fat, low salt Special Instructions: smoking cessation Follow up with: PRIMARY CARE, [Primary Care Provider] - 3-5 Days MEGAN IRAHETA MD [Staff Physician] - 7 Days Prescriptions: AtorvaSTATin [Lipitor] 40 mg PO QHS #30 tab amLODIPine 10 mg PO QDAY #30 tablet Fluticasone/Vilanterol [Breo Ellipta 100-25 Mcg INH] 1 each IH DAILY #1 blst.w.dev Metoprolol [Lopressor TAB] 25 mg PO BID #60 tablet Prednisone [predniSONE 10 mg (6-Day Pack, 21 Tabs)] 10 mg PO .TAPER #1 tab.ds.pk Ipratropium/Albuterol Sulfate [DUONEB *Not for PRN Use*] 1 ampul IH TIDRT #50 ampul.neb
[2019-11-03] MEDS ORDERED: NON-FORMULARY EACH (Clonazepam [Klonopin] 1 MG) PO SCH (22:00)
[2019-11-03] MEDS ORDERED: SENNOSIDES 8.6 MG TAB PO SCH (22:00)
[2019-11-03] MEDS ORDERED: FAMOTIDINE 20 MG TAB PO SCH (22:00)
[2019-11-03] MEDS ORDERED: clonazePAM 0.5 MG TAB PO SCH (22:00)
[2019-11-03] MEDS ORDERED: NON-FORMULARY EACH (Trazodone 50 MG) PO SCH (22:00)
[2019-11-03] MEDS ORDERED: traZODone 50 MG TAB PO SCH (22:00)
[2019-11-04] MEDS ORDERED: ASPIRIN EC 81 MG TAB PO SCH (10:00)
[2019-11-04] MEDS ORDERED: methylPREDNISolone Sod Succinate 40 MG/1 ML INJ IV SCH (10:00)
== END 2019-11-03 13:44 | disposition home or self-care (01) ==
LOC: ED 00:54 → 4A 03:08
PROVIDERS: ADMIT Internal Medicine Geriatric Medicine; ATTEND Internal Medicine
DX: J96.91 Respiratory failure, unspecified with hypoxia (principal); J44.1 Chronic obstructive pulmonary disease with (acute) exacerbation; I10 Essential (primary) hypertension; E78.5 Hyperlipidemia, unspecified; F17.200 Nicotine dependence, unspecified, uncomplicated; F14.10 Cocaine abuse, uncomplicated; G89.29 Other chronic pain; M54.9 Dorsalgia, unspecified; Z21 Asymptomatic human immunodeficiency virus [HIV] infection status; Z86.711 Personal history of pulmonary embolism; Z79.82 Long term (current) use of aspirin
CPT/HCPCS: 36415; 71045; 80048; 82803; 82962; 84484; 85025; 85610; 85730; 93005; 94640; 94644; 94760; 96372; 96374; 96376; 99291; G0378; J1644; J2920

== ENCOUNTER 2019-11-18 23:21 | Observation (INO) | payer MEDICARE ==
[2019-11-19 02:31] LABS: Albumin 4.6 g/dL (3.9-5); Calcium 8.1 mg/dL (8.4-10.2)
[2019-11-19 02:33] LABS: Hematocrit 31.2 % (35.5-45.6); Hemoglobin 9.5 gm/dl (11.8-15.2); Mean Corpuscular HGB Conc 31 % (32-34); Platelet Count 292 K/mm3 (140-440); Red Blood Count 4.55 M/mm3 (3.65-5.03); Red Cell Distribution Width 18.2 % (13.2-15.2)
--- NOTE | 2019-11-19 02:36 | XRay Report ---
CHEST 2 VIEWS INDICATION / CLINICAL INFORMATION: shortness of breath. COMPARISON: 11/13/2019 FINDINGS: SUPPORT DEVICES: None. HEART / MEDIASTINUM: No significant abnormality. LUNGS / PLEURA: No significant pulmonary or pleural abnormality. Calcified right upper lobe granuloma , unchanged No pneumothorax. ADDITIONAL FINDINGS: No significant additional findings. IMPRESSION: 1. No acute findings. Signer Name: Narendra Torres MD Signed: 11/19/2019 2:30 AM Workstation Name: [id number]
[2019-11-19 02:45] LABS: Basophils % (Auto) 0.2 % (0.0-1.8); Eosinophils % (Auto) 0.2 % (0.0-4.3); Lymphocytes % (Auto) 3.6 % (13.4-35.0); Mean Corpuscular Volume 69 fl (84-94); Monocytes % (Auto) 1.7 % (0.0-7.3)
[2019-11-19 02:46] LABS: Lymphocytes # (Auto) 0.4 K/mm3 (1.2-5.4); Monocytes # (Auto) 0.2 K/mm3 (0.0-0.8)
[2019-11-19] MEDS ORDERED: ALBUTEROL 2.5 MG/3 ML NEBU IH PRN (07:30)
[2019-11-19] MEDS ORDERED: ALBUTEROL 8.5 GM MDI INHALATION IH PRN (07:55)
--- NOTE | 2019-11-19 08:37 | Emergency Department Report ---
ED General Adult HPI - General Chief complaint: Dyspnea/Respdistress Stated complaint: RESP DISTRESS PUI?: No Time Seen by Provider: 11/19/19 07:41 Source: patient, EMS ( EMS documentation not available at time of chart d ictation ), RN notes reviewed, old records reviewed Mode of arrival: Stretcher Limitations: No Limitations - History of Present Illness Initial comments: The patient was evaluated in the emergency department for symptoms described in the history of present illness. He/she was evaluated in the context of the global COVID-19 pandemic, which necessitated consideration that the patient might be at risk for infection with the virus that causes COVID-19. Institutional protocols and algorithms that pertain to the evaluation of patients at risk for COVID-19 are in a state of rapid change based on information released by regulatory bodies including the CDC and federal and state organizations. These policies and algorithms were followed during the patient's care in the emergency department. Please note that these policies, procedures and recommendations changed on a rapid basis. The patient is a 63-year-old gentleman who is well-known to myself in this department, he is a frequent utilizer of this emergency department. His past medical history includes COPD, HIV, history of cocaine and tobacco ab use. He recently had a cardiac catheterization at this hospital which was negative for significant findings. He recently had a CT scan of the chest at this hospital, negative for pulmonary embolism/pneumonia. The patient frequently presents to this hospital with complaints of poorly characterized chest pain and shortness of breath. Today, the patient presents with his typical constellation of symptoms, including chest pain and shortness of breath. Reportedly he was hypoxic in the field, and treated appropriately by emergency medical services. The patient indicates his chest pain is central and left-sided. He does not indicate that it radiates to the back, arms or neck. There is no vomiting or diaphoresis. There is chronic shortness of breath. The patient denies leg pain, leg swel ling, oral contraceptive use, and DVT, pulmonary embolism risk factors. Patient makes no complaint of headache, neck pain or abdominal pain. The patient complains of chronic shortness of breath. -: days(s) Location: chest Radiation: non-radiation Severity scale (0 -10): 0 Consistency: constant Improves with: none Worsens with: none - Related Data Previous Rx's Medication Instructions Recorded Last Taken Type Albuterol Mdi (or & Nicu Only) 2 puff IH QID PRN #1 inhalation 11/19/19 Unknown Rx [ProAir HFA Inhaler] Aspirin EC [Halfprin EC] 81 mg PO QDAY #30 tablet. 11/19/19 Unknown Rx AtorvaSTATin [Lipitor] 40 mg PO QHS #30 tab 11/19/19 Unknown Rx Famotidine [Pepcid] 20 mg PO BID #60 tablet 11/19/19 Unknown Rx Fluticasone/Vilanterol [Breo 1 each IH DAILY #1 blst.w.dev 11/19/19 Unknown Rx Ellipta 100-25 Mcg INH] Sennosides Tab [Senokot] 8.6 mg PO Q12HR #30 tablet 11/19/19 Unknown Rx amLODIPine 10 mg PO QDAY #30 tablet 11/19/19 Unknown Rx Allergies Allergy/AdvReac Type Severity Reaction Status Date / Time No Known Allergies Allergy Verified 10/01/19 18:34 ED Review of Systems ROS: Stated complaint: RESP DISTRESS Other details as noted in HPI Constitutional: denies: fever ENT: congestion Respiratory: cough, shortness of breath Cardiovascular: chest pain Gastrointestinal: denies: abdominal pain Genitourinary: as per HPI Musculoskeletal: as per HPI Skin: as per HPI Neurological: as per HPI Psychiatric: as per HPI, anxiety ED Past Medical Hx - Past Medical History Previous Medical History?: Yes Hx Hypertension: Yes Hx Congestive Heart Failure: No Hx Diabetes: No Hx Pulmonary Embolism: Yes Hx Asthma: Yes Hx COPD: Yes Hx HIV: Yes (unknown CD4 count) Additional medical history: Elevated Cholesterol & Chronic back pain. - Surgical History Past Surgical History?: No - Social History Smoking Status: Never Smoker Substance Use Type: Cocaine - Medications Home Medications: Home Medications Medication Instructions Recorded Confirmed Last Taken Type Albuterol Mdi (or & Nicu Only) 2 puff IH QID PRN #1 inhalation 11/19/19 Unknown Rx [ProAir HFA Inhaler] Aspirin EC [Halfprin EC] 81 mg PO QDAY #30 tablet. 11/19/19 Unknown Rx AtorvaSTATin [Lipitor] 40 mg PO QHS #30 tab 11/19/19 Unknown Rx Famotidine [Pepcid] 20 mg PO BID #60 tablet 11/19/19 Unknown Rx Fluticasone/Vilanterol [Breo 1 each IH DAILY #1 blst.w.dev 11/19/19 Unknown Rx Ellipta 100-25 Mcg INH] Sennosides Tab [Senokot] 8.6 mg PO Q12HR #30 tablet 11/19/19 Unknown Rx amLODIPine 10 mg PO QDAY #30 tablet 11/19/19 Unknown Rx ED Physical Exam - General Limitations: No Limitations General appearance: alert, anxious - Head Head exam: Present: atraumatic, normocephalic - Eye Eye exam: Present: normal appearance, EOMI. Absent: nystagmus - ENT ENT exam: Present: normal exam, normal orophraynx, mucous membranes moist, normal external ear exam - Neck Neck exam: Present: normal inspection, full ROM. Absent: tenderness, meningismus - Respiratory Respiratory exam: Present: normal lung sounds bilaterally, accessory muscle use. Absent: respiratory distress, wheezes, rales, rhonchi, stridor - Cardiovascular Cardiovascular Exam: Present: regular rate, normal rhythm, normal heart sounds. Absent: bradycardia, tachycardia, irregular rhythm, systolic murmur, diastolic murmur, rubs, gallop - GI/Abdominal GI/Abdominal exam: Present: soft. Absent: distended, tenderness, guarding, rebound, rigid, pulsatile mass - Rectal Rectal exam: Present: deferred - Extremities Exam Extremities exam: Present: normal inspection, full ROM, other (2+ pulses noted in the bilateral upper and lower extremities. There is no palpable cord. negative Homans sign. Muscular compartments are soft. The pelvis is stable.). Absent: pedal edema, calf tenderness - Back Exam Back exam: Present: normal inspection, full ROM. Absent: tenderness, CVA tenderness (R), CVA tenderness (L), paraspinal tenderness, vertebral tenderness - Neurological Exam Neurological exam: Present: alert, other (No facial droop. Tongue midline. Extraocular movements intact bilaterally. Facial sensation intact to light touch in V1, V2, V3 distribution bilaterally. 5 and a 5 strength in 4 extremities. Sensation intact to light touch in 4 extremities.). Absent: motor sensory deficit - Psychiatric Psychiatric exam: Present: anxious - Skin Skin exam: Present: warm, dry, intact, normal color. Absent: rash ED Course Vital Signs 11/19/19 11/19/19 11/19/19 01:33 07:33 09:25 Temperature 98.3 F 98.0 F Pulse Rate 100 H 94 H Pulse Rate [ 97 H Anterior Bilateral Throughout] Respiratory 18 24 Rate Respiratory 22 Rate [Anterior Bilateral Throughout] Blood Pressure 144/90 125/92 [Left] O2 Sat by Pulse 98 94 Oximetry - Reevaluation(s) Reevaluation #1: 11/19/19 09:32 Arterial blood gas shows hypoxemic respiratory failure, PaO2 62. This correlates with patient's tachypnea, and reported inability to ambulate. The patient would not/was unable to participate with his trial of ambulation supplemental oxygen is ordered. Additional medications ordered. Patient now meets criteria for hospitalization/admission for hypoxemic respiratory failure, likely secondary to noncompliance and COPD. Hospital physician, Dr. Chandra to admit 11/19/19 09:33 ED Medical Decision Making - Lab Data Result diagrams: 11/19/19 02:00 11/19/19 02:00 Vital Signs 11/19/19 11/19/19 01:33 07:33 Temperature 98.3 F 98.0 F Pulse Rate 100 H 94 H Respiratory 18 24 Rate Blood Pressure 144/90 125/92 [Left] O2 Sat by Pulse 98 94 Oximetry Lab Results 11/19/19 11/19/19 11/19/19 Range/Units 02:00 02:00 02:00 WBC 10.6 (4.5-11.0) K/mm3 RBC 4.55 (3.65-5.03) M/mm3 Hgb 9.5 L (11.8-15.2) gm/dl Hct 31.2 L (35.5-45.6) % MCV 69 L (84-94) fl MCH 21 L (28-32) pg MCHC 31 L (32-34) % RDW 18.2 H (13.2-15.2) % Plt Count 292 (140-440) K/mm3 Lymph % (Auto) 3.6 L (13.4-35.0) % [place] % (Auto) 1.7 (0.0-7.3) % Eos % (Auto) 0.2 (0.0-4.3) % Baso % (Auto) 0.2 (0.0-1.8) % Lymph # (Auto) 0.4 L (1.2-5.4) K/mm3 [place] # (Auto) 0.2 (0.0-0.8) K/mm3 Eos # (Auto) 0.0 (0.0-0.4) K/mm3 Baso # (Auto) 0.0 (0.0-0.1) K/mm3 Seg Neutrophils % Karate Teacher Seg Neutrophils # 9.9 H (1.8-7.7) K/mm3 Sodium 142 (137-145) mmol/L Potassium 4.6 (3.6-5.0) mmol/L Chloride 101.6 (98-107) mmol/L Carbon Dioxide 25 (22-30) mmol/L Anion Gap 20 mmol/L BUN 23 H (9-20) mg/dL Creatinine 1.5 H (0.8-1.3) mg/dL Estimated GFR 47 ml/min BUN/Creatinine Ratio 15 % Glucose 141 H (75-100) mg/dL Calcium 8.1 L (8.4-10.2) mg/dL Total Bilirubin 0.30 (0.1-1.2) mg/dL AST 16 (5-40) units/L ALT 17 (7-56) units/L Alkaline Phosphatase 85 (35-129) units/L Total Creatine Kinase 127 (55-170) units/L Troponin T < 0.010 (0.00-0.029) ng/mL Total Protein 8.6 H (6.3-8.2) g/dL Albumin 4.6 (3.9-5) g/dL Albumin/Globulin Ratio 1.2 % - EKG Data -: EKG Interpreted by Nh EKG shows normal: sinus rhythm Rate: normal - EKG Data Interpretation: unchanged when compared t 11/19/19 08:39 The EKG today shows a sinus rhythm, 96 bpm, there is a normal axis, the QTC is prolonged, there is borderline left ventricular hypertrophy and motion artifact. The EKG is abnormal. The EKG is not a STEMI. The EKG appears to be unchanged from prior EKG from October 2019 This EKG is not a STEMI. - Radiology Data Radiology results: report reviewed, image reviewed Print Report Referring Physician: NARAYAN GIPSON Patient Name: NAVARRO YAN Date of : 1955 Sex: Male Report Date: 2019-11-19 Report Status: Finalized Findings [facility] [address] [id number] XRay Report Signed Patient: NAVARRO YAN MR #: [id number] : 1955 Acct:[id number] Age/Sex: 63 / M ADM Date: 11/18/19 Loc: ED Attending Dr: Ordering Physician: NARAYAN GIPSON Date of Service: 11/19/19 Procedure(s): XR chest routine 2V Accession Number(s): [id number] cc: NARAYAN GIPSON Fluoro Time In Minutes: CHEST 2 VIEWS INDICATION / CLINICAL INFORMATION: shortness of breath. COMPARISON: 11/13/2019 FINDINGS: SUPPORT DEVICES: None. HEART / MEDIASTINUM: No significant abnormality. LUNGS / PLEURA: No significant pulmonary or pleural abnormality. Calcified right upper lobe granuloma, unchanged No pneumothorax. ADDITIONAL FINDINGS: No significant additional findings. IMPRESSION: 1. No acute findings. Signer Name: Narendra Torres MD Signed: 11/19/2019 2:30 AM Workstation Name: [id number] Transcribed By: TL Dictated By: Narendra Torres MD Electronically Authenticated By: Narendra Torres MD Signed Date/Time: 11/19/19229 DD/ 9 TD/TT: - Medical Decision Making Differential diagnosis, including but not limited to: Reactive airway disease, COPD, noncompliance, GERD, gastritis, hiatal hernia, coronary artery disease, malingering Assessment and plan: 63-year-old gentleman, who is afebrile, with reassuring vital signs, not currently tachycardic or hypoxic, saturating at 95 to 100% on room air, has been observed in this department for 8 hours, without clinical decompensation. Recently had a cardiac catheterization which was negative for angiographic findings, no further ischemic work-up was recommended by cardio logy, recently had a CT scan of the chest which was negative for acute findings, EKG unchanged from prior, troponin chronically negative, has chronic renal insufficiency, chronic microcytic anemia. The patient is clinically sober at this time, and does exhibit decision-making capacity, he does not meet criteria for 1013 hold or involuntary hold He refused to get up for trial of ambulation, arterial blood gas will be obtained, however, we anticipate discharge. I will refill the patient's medic ations, and he has been counseled to discontinue recreational drug consumption. Critical care attestation.: If time is entered above; I have spent that time in minutes in the direct care of this critically ill patient, excluding procedure time. ED Disposition Clinical Impression: COPD (chronic obstructive pulmonary disease), Cocaine use, Renal insufficiency, Medical non-compliance, History of chest pain, Microcytic anemia, COPD exacerbation, SOB (shortness of breath), Acute respiratory failure with hypoxia Disposition: 09 OP ADMIT IP TO THIS HOSP Is pt being admited?: Yes Does the pt Need Aspirin: No Condition: Fair Instructions: Chronic Obstructive Pulmonary Disease (ED) Additional Instructions: Take the prescribed medications as needed and directed. Recommend that patient avoid consumption of cocaine, alcohol, tobacco and smoke products. Consumption of the aforementioned puts the patient at risk for disability, paralysis, permanent loss of quality of life. 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 Please return to the emergency room right away with new, worsened or different symptoms, or symptoms not present on the initial emergency room evaluation. Prescriptions: AtorvaSTATin [Lipitor] 40 mg PO QHS #30 tab amLODIPine 10 mg PO QDAY #30 tablet Fluticasone/Vilanterol [Breo Ellipta 100-25 Mcg INH] 1 each IH DAILY #1 blst.w.dev Aspirin EC [Halfprin EC] 81 mg PO QDAY #30 tablet. Famotidine [Pepcid] 20 mg PO BID #60 tablet Albuterol Mdi (or & Nicu Only) [ProAir HFA Inhaler] 2 puff IH QID PRN #1 inhalation PRN Reason: Shortness Of Breath Sennosides Tab [Senokot] 8.6 mg PO Q12HR #30 tablet Referrals: OCNY SIMPSON MD [Staff Physician] - 3-5 Days KARAN TROTTER MD [Staff Physician] - 3-5 Days
[2019-11-19 09:19] LABS: ABG Base Excess 0.2 mmol/L (-2.0-3.0); ABG HCO3 25.7 mmol/L (20.0-26.0); ABG Methemoglobin 0.5 % (0.0-1.5); ABG Oxygen Saturation 90.4 % (95.0-99.0); ABG PCO2 45.6 mm Hg; ABG PH 7.368 pH Units (7.350-7.450); ABG PO2 62.9 mm Hg (80.0-90.0)
[2019-11-19] MEDS ORDERED: IPRATROPIUM 0.02% NEBU 2.5 ML IH ONE ×2 (09:30→11:35)
[2019-11-19] MEDS ORDERED: ALBUTEROL 2.5 MG/3 ML NEBU IH ONE ×2 (09:30→11:35)
[2019-11-19] MEDS ORDERED: methylPREDNISolone Sod Succinate 40 MG/1 ML INJ IV ONE (09:30)
[2019-11-19] MEDS: IPRATROPIUM/ALBUTEROL SULFATE 3 ML AMPUL.NEB IH SCH ×3 (09:31→19:18)
[2019-11-19] MEDS ORDERED: DOXYCYCLINE 100 MG CAP PO ONE (09:34)
[2019-11-19] MEDS ORDERED: ASPIRIN EC 81 MG TAB PO SCH (10:00)
[2019-11-19] MEDS: amLODIPine 10 MG TAB PO SCH (10:33)
[2019-11-19] MEDS: FAMOTIDINE 20 MG TAB PO SCH ×2 (10:33→21:01)
[2019-11-19] MEDS ORDERED: MORPHINE 2 MG/1 ML INJ IV ONE (14:49)
[2019-11-19] MEDS ORDERED: ONDANSETRON 4 MG/2 ML INJ IV PRN (17:59)
[2019-11-19] MEDS ORDERED: ACETAMINOPHEN 325 MG TAB PO PRN (17:59)
--- NOTE | 2019-11-19 18:05 | History and Physical Report ---
History of Present Illness Date of examination: 11/19/19 Date of admission: 11/19/19 09:34 Chief complaint: Shortness of breath. History of present illness: 63-year-old male with a history of COPD hypertension cocaine abuse tobacco abuse presents with atypical chest pain. Patient presents for the same atypical chest pain each time. Patient has had extensive negative work-up including CT scan of chest cardiac work-up. Been unremarkable. Patient comes in after cocaine use and abuse noncompliant with medications for COPD. At present patient is resting comfortably not hypoxemic satting 100% on room air. Patient is eating very fast. Limited conversation about chest pain. Patient is in no acute distress. He understands chest pain is been worked up 20 times is currently chest pain- free does not appear to be any pain or distress at all. Patient was up walking to the bathroom bending over without any discomfort. Past History Past Medical History: COPD, hypertension, hyperlipidemia. denies: acute OK, atrial fib, arrhythmia, anemia, arthritis, CAD, cancer, dialysis, DVT, GERD, heart failure, hypothyroidism, liver disease, pulmonary embolism, renal failure Past Surgical History: No surgical history Social history: single, Lives alone, smoking. denies: IV drug use Family history: no significant family history Medications and Allergies Allergies Allergy/AdvReac Type Severity Reaction Status Date / Time No Known Allergies Allergy Verified 10/01/19 18:34 Home Medications Medication Instructions Recorded Confirmed Last Taken Type Albuterol Mdi (or & Nicu Only) 2 puff IH QID PRN #1 inhalation 11/19/19 Unknown Rx [ProAir HFA Inhaler] Aspirin EC [Halfprin EC] 81 mg PO QDAY #30 tablet. 11/19/19 Unknown Rx AtorvaSTATin [Lipitor] 40 mg PO QHS #30 tab 11/19/19 Unknown Rx Famotidine [Pepcid] 20 mg PO BID #60 tablet 11/19/19 Unknown Rx Fluticasone/Vilanterol [Breo 1 each IH DAILY #1 blst.w.dev 11/19/19 Unknown Rx Ellipta 100-25 Mcg INH] Sennosides Tab [Senokot] 8.6 mg PO Q12HR #30 tablet 11/19/19 Unknown Rx amLODIPine 10 mg PO QDAY #30 tablet 11/19/19 Unknown Rx Active Meds: Active Medications Albuterol (Proventil) 2.5 mg IH QIDRT PRN PRN Reason: Shortness Of Breath Albuterol/Ipratropium (Duoneb *Not For Prn Use*) 1 ampul IH TIDRT [facility] Last Admin: 11/19/19 16:50 Dose: 1 ampul Documented by: Amlodipine Besylate (Amlodipine) 10 mg PO QDAY [facility] Last Admin: 11/19/19 10:33 Dose: 10 mg Documented by: Aspirin (Halfprin Ec) 81 mg PO QDAY [facility] Atorvastatin Calcium (Lipitor) 40 mg PO QHS [facility] Clonazepam (Klonopin) 1 mg PO QHS [facility] Famotidine (Pepcid) 20 mg PO BID [facility] Last Admin: 11/19/19 10:33 Dose: 20 mg Documented by: Review of Systems Constitutional: no weight loss, no weight gain, no fever, no night sweats, no fatigue, no weakness, no malaise, no daytime sleepiness Ears, nose, mouth and throat: no ear pain, no tinnitis, no nose pain, no nasal congestion, no bleeding gums, no dental pain, no mouth pain, no voice changes, no post-nasal drip, no vertigo Cardiovascular: chest pain, shortness of breath, no orthopnea, no palpitations, no rapid/irregular heart beat, no edema, no syncope, no lightheadedness, no dyspnea on exertion, no paroxysmal nocturnal dyspnea, no claudication, no phlebitis, no decreased exercise tolerance Respiratory: no cough with sputum, no excessive sputum, no hemoptysis, no dyspnea on exertion, no wheezing, no sleep apnea Gastrointestinal: no nausea, no diarrhea, no hematemesis, no hematochezia, no loss of appetite, no dyspepsia/bloating, no lactose intolerance Rectal: no bleeding Musculoskeletal: no neck pain, no arm numbness/tingling, no shooting leg pain, no leg numbness/tingling, no hot joints, no muscle weakness, no myalgias, no frequent falls, no fractures Integumentary: no blisters, no onychomycosis Neurological: no weakness, no parathesias, no seizures, no migraines, no aphasia, no change in mentation, no loss of vision Endocrine: no cold intolerance, no heat intolerance, no excessive thirst, no proptosis, no high blood sugars Exam - Constitutional Vitals: Temp Pulse Resp BP Pulse Ox 98.0 F 86 24 136/86 96 11/19/19 07:33 11/19/19 12:00 11/19/19 12:00 11/19/19 12:00 11/19/19 12:00 General appearance: Present: no acute distress, well-nourished - EENT Eyes: Present: PERRL ENT: hearing intact, clear oral mucosa - Neck Neck: Present: supple, normal ROM - Respiratory Respiratory effort: normal Respiratory: bilateral: CTA - Cardiovascular Heart Sounds: Present: S1 & S2. Absent: rub, click - Extremities Extremities: pulses symmetrical, No edema Peripheral Pulses: within normal limits - Abdominal General gastrointestinal: Present: soft, non-tender, non-distended, normal bowel sounds Male genitourinary: Present: normal - Integumentary Integumentary: Present: clear, warm, dry - Musculoskeletal Musculoskeletal: gait normal, strength equal bilaterally - Psychiatric Psychiatric: appropriate mood/affect, intact judgment & insight - Neurologic Neurologic: CNII-XII intact, moves all extremities HEART Score - HEART Score History: Slightly suspicious EKG: Normal Age: 45-65 Risk factors: 1-2 risk factors Troponin: Troponin T < 0.010 ng/mL (0.00-0.029) 11/19/19 02:00 Troponin: < normal limit HEART Score: 2 Results - Labs CBC & Chem 7: 11/19/19 02:00 11/19/19 02:00 Labs: Laboratory Last Values WBC 10.6 K/mm3 (4.5-11.0) 11/19/19 02:00 RBC 4.55 M/mm3 (3.65-5.03) 11/19/19 02:00 Hgb 9.5 gm/dl (11.8-15.2) L 11/19/19 02:00 Hct 31.2 % (35.5-45.6) L 11/19/19 02:00 MCV 69 fl (84-94) L 11/19/19 02:00 MCH 21 pg (28-32) L 11/19/19 02:00 MCHC 31 % (32-34) L 11/19/19 02:00 RDW 18.2 % (13.2-15.2) H 11/19/19 02:00 Plt Count 292 K/mm3 (140-440) 11/19/19 02:00 Lymph % (Auto) 3.6 % (13.4-35.0) L 11/19/19 02:00 Evans % (Auto) 1.7 % (0.0-7.3) 11/19/19 02:00 Eos % (Auto) 0.2 % (0.0-4.3) 11/19/19 02:00 Baso % (Auto) 0.2 % (0.0-1.8) 11/19/19 02:00 Lymph # (Auto) 0.4 K/mm3 (1.2-5.4) L 11/19/19 02:00 Evans # (Auto) 0.2 K/mm3 (0.0-0.8) 11/19/19 02:00 Eos # (Auto) 0.0 K/mm3 (0.0-0.4) 11/19/19 02:00 Baso # (Auto) 0.0 K/mm3 (0.0-0.1) 11/19/19 02:00 Seg Neutrophils % [employer] 11/19/19 02:00 Seg Neutrophils # 9.9 K/mm3 (1.8-7.7) H 11/19/19 02:00 ABG pH 7.368 pH Units (7.350-7.450) 11/19/19 09:10 ABG pCO2 45.6 mm Hg 11/19/19 09:10 ABG pO2 62.9 mm Hg (80.0-90.0) L 11/19/19 09:10 ABG HCO3 25.7 mmol/L (20.0-26.0) 11/19/19 09:10 ABG O2 Saturation 90.4 % (95.0-99.0) L 11/19/19 09:10 ABG O2 Content 11.3 (0.0-44) 11/19/19 09:10 ABG Base Excess 0.2 mmol/L (-2.0-3.0) 11/19/19 09:10 ABG Hemoglobin 9.0 gm/dl (14.0-18.0) L 11/19/19 09:10 ABG Carboxyhemoglobin 1.5 % (0.0-5.0) 11/19/19 09:10 ABG Methemoglobin 0.5 % (0.0-1.5) 11/19/19 09:10 Oxyhemoglobin 88.6 % (95.0-99.0) L 11/19/19 09:10 FiO2 21 % 11/19/19 09:10 Sodium 142 mmol/L (137-145) 11/19/19 02:00 Potassium 4.6 mmol/L (3.6-5.0) 11/19/19 02:00 Chloride 101.6 mmol/L (98-107) 11/19/19 02:00 Carbon Dioxide 25 mmol/L (22-30) 11/19/19 02:00 Anion Gap 20 mmol/L 11/19/19 02:00 BUN 23 mg/dL (9-20) H 11/19/19 02:00 Creatinine 1.5 mg/dL (0.8-1.3) H 11/19/19 02:00 Estimated GFR 47 ml/min 11/19/19 02:00 BUN/Creatinine Ratio 15 % 11/19/19 02:00 Glucose 141 mg/dL (75-100) H 11/19/19 02:00 Calcium 8.1 mg/dL (8.4-10.2) L 11/19/19 02:00 Total Bilirubin 0.30 mg/dL (0.1-1.2) 11/19/19 02:00 AST 16 units/L (5-40) 11/19/19 02:00 ALT 17 units/L (7-56) 11/19/19 02:00 Alkaline Phosphatase 85 units/L (35-129) 11/19/19 02:00 Total Creatine Kinase 127 units/L (55-170) 11/19/19 02:00 Troponin T < 0.010 ng/mL (0.00-0.029) 11/19/19 02:00 Total Protein 8.6 g/dL (6.3-8.2) H 11/19/19 02:00 Albumin 4.6 g/dL (3.9-5) 11/19/19 02:00 Albumin/Globulin Ratio 1.2 % 11/19/19 02:00 - Imaging and Cardiology EKG: image reviewed Chest x-ray: report reviewed, image reviewed [place]/IV: Voiding Method Toilet IV Catheter Type [Right Hand] Peripheral IV Assessment and Plan Advance Directives: Yes Plan of care discussed with patient/family: Yes - Patient Problems (1) COPD exacerbation Current Visit: Yes Status: Acute Plan to address problem: Patient presents minimal mild COPD exacerbation. Will start Solu-Medrol will start nebulizers. Patient actually is satting at 100% on room air without any discomfort. Patient eating well. No concerns no distress. Will just anticipate discharge in a.m. We will not use steroids upon discharge patient does not appear to be having a significant enough exacerbation. (2) History of chest pain Current Visit: Yes Status: Acute Plan to address problem: Patient extensive work-up currently chest pain-free no new recommendations at this time continue present medical management. (3) Medical non-compliance Current Visit: Yes Status: Acute Plan to address problem: Explained about importance of compliance and continue therapeutic COPD meds. (4) Renal insufficiency Current Visit: Yes Status: Acute (5) Cocaine use Current Visit: Yes Status: Chronic Plan to address problem: Discussed concurrent cocaine abuse tobacco abuse and noncompliance and is significant for an acute OK. (6) Full code status Current Visit: No Status: Acute
[2019-11-19] MEDS ORDERED: clonazePAM 0.5 MG TAB PO SCH (22:00)
[2019-11-19] MEDS ORDERED: NON-FORMULARY EACH (Clonazepam [Klonopin] 1 MG) PO SCH (22:00)
[2019-11-19] MEDS: oxyCODONE /ACETAMINOPHEN 5-325MG TAB PO PRN (22:27)
[2019-11-20 06:38] LABS: Calcium 7.4 mg/dL (8.4-10.2)
--- NOTE | 2019-11-20 08:29 | Discharge Summary ---
Providers - Providers Date of Admission: 11/19/19 09:34 Date of discharge: 11/20/19 Attending physician: DAIN MILLER none Primary care physician: INTERNAL MEDICINE PHYSICIAN ASSISTANT Hospitalization Condition: Fair Hospital course: 63-year-old male presents with COPD exacerbation. Patient defervesced well with steroids and nebulizer treatments. Stable for discharge. Satting 98% room air. Walking without difficulty no wheezing. Disposition: - TO HOME OR SELFCARE - Discharge Diagnoses (1) COPD exacerbation Status: Acute Comment: Most likely secondary to noncompliance. Patient educated to use nebulizers accordingly. (2) History of chest pain Status: Acute (3) Medical non-compliance Status: Acute (4) Renal insufficiency Status: Acute (5) Cocaine use Status: Chronic (6) Full code status Status: Acute Core Measure Documentation - Palliative Care Palliative Care/ Comfort Measures: Not Applicable - Core Measures Any of the following diagnoses?: none Exam - Constitutional Vitals: Temp Pulse Resp BP Pulse Ox 97.5 F L 86 20 160/99 96 11/20/19 06:02 11/20/19 06:02 11/20/19 06:02 11/20/19 06:02 11/20/19 06:02 Plan Activity: advance as tolerated Weight Bearing Status: Full Weight Bearing Diet: low cholesterol Follow up with: CONY SIMPSON MD [Staff Physician] - 3-5 Days KARAN TROTTER MD [Staff Physician] - 3-5 Days Prescriptions: amLODIPine 10 mg PO QDAY #30 tablet Fluticasone/Vilanterol [Breo Ellipta 100-25 Mcg INH] 1 each IH DAILY #1 blst.w.dev Ipratropium/Albuterol Sulfate [DUONEB *Not for PRN Use*] 1 ampul IH TIDRT #1 ampul.neb Aspirin EC [Halfprin EC] 81 mg PO QDAY #30 tablet. AtorvaSTATin [Lipitor] 40 mg PO QHS #30 tab Famotidine [Pepcid] 20 mg PO BID #60 tablet oxyCODONE /ACETAMINOPHEN [Percocet 5/325 mg] 1 tab PO Q6H PRN #7 tablet PRN Reason: Pain, Moderate (4-6) Albuterol Mdi (or & Nicu Only) [ProAir HFA Inhaler] 2 puff IH QID PRN #1 inhalation PRN Reason: Shortness Of Breath Sennosides Tab [Senokot] 8.6 mg PO Q12HR #30 tablet
[2019-11-20] MEDS ORDERED: FAMOTIDINE 20 MG TAB PO SCH (10:00)
[2019-11-20] MEDS: IPRATROPIUM/ALBUTEROL SULFATE 3 ML AMPUL.NEB IH SCH ×2 (10:06→15:31)
[2019-11-20] MEDS: oxyCODONE /ACETAMINOPHEN 5-325MG TAB PO PRN (10:06)
[2019-11-20] MEDS: amLODIPine 10 MG TAB PO SCH (10:08)
[2019-11-20 16:50] VITALS: BP 132/94
== END 2019-11-20 15:15 | disposition home or self-care (01) ==
LOC: ED 23:21 → 3A 11-19 09:34
PROVIDERS: ADMIT Internal Medicine; ATTEND Internal Medicine
DX: J96.01 Acute respiratory failure with hypoxia (principal); J44.1 Chronic obstructive pulmonary disease with (acute) exacerbation; N28.9 Disorder of kidney and ureter, unspecified; D50.9 Iron deficiency anemia, unspecified; R07.89 Other chest pain; I10 Essential (primary) hypertension; E78.5 Hyperlipidemia, unspecified; E78.00 Pure hypercholesterolemia, unspecified; M54.9 Dorsalgia, unspecified; G89.29 Other chronic pain; F14.90 Cocaine use, unspecified, uncomplicated; Z79.82 Long term (current) use of aspirin; Z91.19 Patient's noncompliance with other medical treatment and regimen; Z86.711 Personal history of pulmonary embolism; Z68.21 Body mass index [BMI] 21.0-21.9, adult
CPT/HCPCS: 36415; 71046; 80048; 80053; 82550; 82803; 84484; 85025; 93005; 94640; 94644; 94760; 96374; 96375; 99285; A9270; G0378; J2270; J2920

== ENCOUNTER 2019-12-04 21:28 | Emergency (ER) | payer MEDICARE ==
[2019-12-04] MEDS ORDERED: ASPIRIN 325 MG TAB PO ONE (21:59)
--- NOTE | 2019-12-04 22:21 | XRay Report ---
CHEST 1 VIEW INDICATION / CLINICAL INFORMATION: Chest Pain. FINDINGS: SUPPORT DEVICES: None. HEART / MEDIASTINUM: No significant abnormality. LUNGS / PLEURA: No significant pulmonary or pleural abnormality. No pneumothorax. ADDITIONAL FINDINGS: No significant additional findings. IMPRESSION: 1. No acute findings. Signer Name: Cristi Triana MD Signed: 12/04/2019 10:16 PM Workstation Name: [id number]
[2019-12-04 22:31] LABS: Hematocrit 24.1 % (35.5-45.6); Hemoglobin 7.7 gm/dl (11.8-15.2); Lymphocytes # (Auto) 0.6 K/mm3 (1.2-5.4); Lymphocytes % (Auto) 7.9 % (13.4-35.0); Mean Corpuscular HGB Conc 32 % (32-34); Monocytes # (Auto) 0.5 K/mm3 (0.0-0.8); Monocytes % (Auto) 6.6 % (0.0-7.3); Platelet Count 428 K/mm3 (140-440); Red Blood Count 3.61 M/mm3 (3.65-5.03)
[2019-12-04 22:33] LABS: Mean Corpuscular Volume 67 fl (84-94)
[2019-12-04 22:52] LABS: BUN/Creatinine Ratio 29; Blood Urea Nitrogen 46 mg/dL (9-20); Calcium 7.9 mg/dL (8.4-10.2); Hemolysis Index 6
[2019-12-04] MEDS ORDERED: IPRATROPIUM 0.02% NEBU 2.5 ML IH ONE (23:10)
[2019-12-04] MEDS ORDERED: ALBUTEROL 2.5 MG/3 ML NEBU IH ONE (23:10)
[2019-12-04] MEDS ORDERED: predniSONE 20 MG TAB PO ONE (23:11)
--- NOTE | 2019-12-04 23:11 | Emergency Department Report ---
ED Shortness of Breath HPI - General Chief Complaint: Chest Pain Stated Complaint: DIFF BREATHING Time Seen by Provider: 12/04/19 22:56 Source: patient, EMS Mode of arrival: Stretcher Limitations: No Limitations - History of Present Illness Initial Comments: 64-year-old male, history of HIV, renal insufficiency, anemia, presents to the ED with complaint of shortness of breath. Patient has history of COPD and crack cocaine abuse. He reports last use of crack was 2 days ago. He reports onset of difficulty breathing this morning. Patient states he administered nebulizer treatment at home, however called EMS so that he can get some additional oxygen which usually helps. Patient is not on home O2. Patient states he is currently feeling much better but feels like he may need another breathing treatment. Patient reported associated chest tightness that usually accompanies his COPD exacerbation. Patient denies any cough or fever, nausea or vomiting, or diaphoresis. MD Complaint: shortness of breath -: This morning Severity: moderate Consistency: intermittent Improves With: oxygen, bronchodilators Worsens With: exertion Known History Of: COPD Associated Symptoms: chest pain Treatments Prior to Arrival: oxygen, bronchodilator - Related Data Home Oxygen Therapy: No Previous Rx's Medication Instructions Recorded Last Taken Type Albuterol Mdi (or & Nicu Only) 2 puff IH QID PRN #1 inhalation 11/19/19 Unknown Rx [ProAir HFA Inhaler] Aspirin EC [Halfprin EC] 81 mg PO QDAY #30 tablet.dr 11/19/19 Unknown Rx AtorvaSTATin [Lipitor] 40 mg PO QHS #30 tab 11/19/19 Unknown Rx Famotidine [Pepcid] 20 mg PO BID #60 tablet 11/19/19 Unknown Rx Fluticasone/Vilanterol [Breo 1 each IH DAILY #1 blst.w.dev 11/19/19 Unknown Rx Ellipta 100-25 Mcg INH] Sennosides Tab [Senokot] 8.6 mg PO Q12HR #30 tablet 11/19/19 Unknown Rx amLODIPine 10 mg PO QDAY #30 tablet 11/19/19 Unknown Rx Acetaminophen [Acetaminophen TAB] 650 mg PO Q4H PRN tablet 11/20/19 Unknown Rx Aspirin EC [Halfprin EC] 81 mg PO QDAY tablet 11/20/19 Unknown Rx AtorvaSTATin [Lipitor] 40 mg PO QHS #30 tablet 11/20/19 Unknown Rx Famotidine [Pepcid] 20 mg PO DAILY #14 tablet 11/20/19 Unknown Rx Ipratropium/Albuterol Sulfate 1 ampul IH TIDRT #1 ampul.neb 11/20/19 Unknown Rx [DUONEB *Not for PRN Use*] amLODIPine 10 mg PO QDAY #30 tablet 11/20/19 Unknown Rx clonazePAM [KlonoPIN] 1 mg PO QHS #30 tablet 11/20/19 Unknown Rx oxyCODONE /ACETAMINOPHEN [Percocet 1 tab PO Q6H PRN #7 tablet 11/20/19 Unknown Rx 5/325 mg] ALBUTEROL NEB's [Proventil 0.083% 2.5 mg IH QIDRT PRN #60 nebu 12/05/19 Unknown Rx NEBS] Albuterol Sulfate [Proventil Hfa] 2 puff IH Q4HR PRN #1 hfa.aer.ad 12/05/19 Unknown Rx predniSONE [Deltasone] 50 mg PO QDAY #5 tab 12/05/19 Unknown Rx Allergies Allergy/AdvReac Type Severity Reaction Status Date / Time No Known Allergies Allergy Verified 10/01/19 18:34 ED Review of Systems ROS: Stated complaint: DIFF BREATHING Other details as noted in HPI Comment: All other systems reviewed and negative Constitutional: denies: chills, fever Respiratory: shortness of breath Cardiovascular: chest pain Gastrointestinal: denies: nausea, vomiting ED Past Medical Hx - Past Medical History Previous Medical History?: Yes Hx Hypertension: Yes Hx Congestive Heart Failure: No Hx Diabetes: No Hx Pulmonary Embolism: Yes Hx Asthma: Yes Hx COPD: Yes Hx HIV: Yes (unknown CD4 count) Additional medical history: Elevated Cholesterol & Chronic back pain. - Surgical History Past Surgical History?: No - Social History Smoking Status: Current Every Day Smoker Substance Use Type: Marijuana - Medications Home Medications: Home Medications Medication Instructions Recorded Confirmed Last Taken Type Albuterol Mdi (or & Nicu Only) 2 puff IH QID PRN #1 inhalation 11/19/19 Unknown Rx [ProAir HFA Inhaler] Aspirin EC [Halfprin EC] 81 mg PO QDAY #30 tablet. 11/19/19 Unknown Rx AtorvaSTATin [Lipitor] 40 mg PO QHS #30 tab 11/19/19 Unknown Rx Famotidine [Pepcid] 20 mg PO BID #60 tablet 11/19/19 Unknown Rx Fluticasone/Vilanterol [Breo 1 each IH DAILY #1 blst.w.dev 11/19/19 Unknown Rx Ellipta 100-25 Mcg INH] Sennosides Tab [Senokot] 8.6 mg PO Q12HR #30 tablet 11/19/19 Unknown Rx amLODIPine 10 mg PO QDAY #30 tablet 11/19/19 Unknown Rx Acetaminophen [Acetaminophen TAB] 650 mg PO Q4H PRN tablet 11/20/19 Unknown Rx Aspirin EC [Halfprin EC] 81 mg PO QDAY tablet 11/20/19 Unknown Rx AtorvaSTATin [Lipitor] 40 mg PO QHS #30 tablet 11/20/19 Unknown Rx Famotidine [Pepcid] 20 mg PO DAILY #14 tablet 11/20/19 Unknown Rx Ipratropium/Albuterol Sulfate 1 ampul IH TIDRT #1 ampul.neb 11/20/19 Unknown Rx [DUONEB *Not for PRN Use*] amLODIPine 10 mg PO QDAY #30 tablet 11/20/19 Unknown Rx clonazePAM [KlonoPIN] 1 mg PO QHS #30 tablet 11/20/19 Unknown Rx oxyCODONE /ACETAMINOPHEN [Percocet 1 tab PO Q6H PRN #7 tablet 11/20/19 Unknown Rx 5/325 mg] ALBUTEROL NEB's [Proventil 0.083% 2.5 mg IH QIDRT PRN #60 nebu 12/05/19 Unknown Rx NEBS] Albuterol Sulfate [Proventil Hfa] 2 puff IH Q4HR PRN #1 hfa.aer.ad 12/05/19 Unknown Rx predniSONE [Deltasone] 50 mg PO QDAY #5 tab 12/05/19 Unknown Rx ED Physical Exam - General Limitations: No Limitations General appearance: alert, in no apparent distress - Head Head exam: Present: atraumatic, normocephalic - Eye Eye exam: Present: normal appearance, EOMI - ENT ENT exam: Present: mucous membranes moist - Neck Neck exam: Present: normal inspection - Respiratory Respiratory exam: Present: respiratory distress (mild), wheezes (faint), prolonged expiratory - Cardiovascular Cardiovascular Exam: Present: regular rate, normal rhythm - GI/Abdominal GI/Abdominal exam: Present: soft. Absent: distended, tenderness - Extremities Exam Extremities exam: Present: normal inspection - Neurological Exam Neurological exam: Present: alert, oriented X3 - Psychiatric Psychiatric exam: Present: normal affect, normal mood - Skin Skin exam: Present: warm, dry, intact, normal color ED Course Vital Signs 12/04/19 12/05/19 21:48 00:49 Temperature 98.3 F Pulse Rate 79 Respiratory 18 20 Rate Blood Pressure 117/74 O2 Sat by Pulse 95 94 Oximetry ED Medical Decision Making - Lab Data Result diagrams: 12/04/19 22:02 12/04/19 22:02 - EKG Data -: EKG Interpreted by Nh EKG shows normal: sinus rhythm, axis, intervals, QRS complexes, ST-T waves Rate: normal - EKG Data Interpretation: no acute changes - Radiology Data Radiology results: report reviewed, image reviewed - Medical Decision Making History of renal insufficiency. GFR at baseline compared to last couple of admissions. Hemoglobin is 7.7, patient has history of anemia. He does not require transfusion at this time. O2 sats are normal. Patient given nebulizer treatment and prednisone here in ED. Chest x-ray is negative. EKG is unremarkable. Troponin is normal. Patient is feeling much better at this time. Will discharge home. Outpatient follow-up advised. Return precautions given. - Differential Diagnosis COPD, pneumonia, ACS Critical care attestation.: If time is entered above; I have spent that time in minutes in the direct care of this critically ill patient, excluding procedure time. ED Disposition Clinical Impression: COPD exacerbation Disposition: - TO HOME OR SELFCARE Is pt being admited?: No Condition: Stable Instructions: Chronic Obstructive Pulmonary Disease (ED) Prescriptions: predniSONE [Deltasone] 50 mg PO QDAY #5 tab Albuterol Sulfate [Proventil Hfa] 2 puff IH Q4HR PRN #1 hfa.aer.ad PRN Reason: Wheezing ALBUTEROL NEB's [Proventil 0.083% NEBS] 2.5 mg IH QIDRT PRN #60 nebu PRN Reason: Shortness Of Breath Referrals: PRIMARY CARE, [Primary Care Provider] - 3-5 Days [facility] [Provider Group] - 3-5 Days Time of Disposition: 01:04
[2019-12-05 03:15] VITALS: BP 124/53
== END 2019-12-05 02:30 | disposition home or self-care (01) ==
LOC: ED 21:28
DX: J44.1 Chronic obstructive pulmonary disease with (acute) exacerbation (principal); I10 Essential (primary) hypertension; F17.200 Nicotine dependence, unspecified, uncomplicated; F12.10 Cannabis abuse, uncomplicated; Z79.82 Long term (current) use of aspirin; Z79.899 Other long term (current) drug therapy
CPT/HCPCS: 36415; 71045; 80048; 84484; 85025; 93005; 94644; 94645; 99285; J7512

== ENCOUNTER 2019-12-10 10:52 | Emergency (ER) | payer MEDICARE ==
[2019-12-10] MEDS ORDERED: ASPIRIN 325 MG TAB PO ONE (11:19)
--- NOTE | 2019-12-10 11:47 | XRay Report ---
CHEST 1 VIEW 12/10/2019 10:41 AM INDICATION / CLINICAL INFORMATION: Chest Pain. COMPARISON: 12/04/2019 FINDINGS: SUPPORT DEVICES: None. HEART / MEDIASTINUM: No significant abnormality. LUNGS / PLEURA: Stable scattered calcified granulomata. No acute findings. No pneumothorax. ADDITIONAL FINDINGS: No significant additional findings. IMPRESSION: 1. No acute findings. Signer Name: Omega Mcintyre MD Signed: 12/10/2019 11:43 AM Workstation Name: [id number]
[2019-12-10 11:58] LABS: Hematocrit 30.4 % (35.5-45.6); Hemoglobin 9.4 gm/dl (11.8-15.2); Mean Corpuscular HGB Conc 31 % (32-34); Platelet Count 439 K/mm3 (140-440); Red Blood Count 4.38 M/mm3 (3.65-5.03)
[2019-12-10 12:02] LABS: Mean Corpuscular Volume 69 fl (84-94); Red Cell Distribution Width 21.2 % (13.2-15.2)
[2019-12-10 12:20] LABS: BUN/Creatinine Ratio 16; Blood Urea Nitrogen 21 mg/dL (9-20); Calcium 7.3 mg/dL (8.4-10.2); Hemolysis Index 2
[2019-12-10 14:02] LABS: Anisocytosis 1+; Basophils % (Manual) 0 % (0.0-1.8); Eosinophils % (Manual) 0 % (0.0-4.3); Total Cells Counted 100
[2019-12-10 14:03] LABS: Hypochromasia 2+; Platelet Clumps Rare; Platelet Estimate Appears Decreased; Target Cells Rare
[2019-12-10] MEDS ORDERED: HYDROcodone/ACETAMINOPHEN 5-325 MG TAB PO ONE (18:09)
[2019-12-10] MEDS ORDERED: IPRATROPIUM/ALBUTEROL SULFATE 3 ML AMPUL.NEB IH ONE (18:09)
--- NOTE | 2019-12-10 18:09 | Emergency Department Report ---
ED Chest Pain HPI - General Chief Complaint: Chest Pain Stated Complaint: RICKY Time Seen by Provider: 12/10/19 17:56 Source: patient Mode of arrival: Wheelchair Limitations: No Limitations - History of Present Illness Initial Comments: This is a 64-year-old male presents to the emergency department with a complaint of midsternal chest pain and shortness of breath that started earlier today. Currently the chest pain is a 6 out of 10 in intensity. It worsens with respirations. No known alleviating factors. He has not taken anything for symptoms prior to presentation. He denies any fever, cough, lower extremity swelling, nausea, vomiting, back pain or diaphoresis. He has a past medical history of asthma, COPD, HIV, hypertension, elevated cholesterol and a history of previous pulmonary embolism. Patient is not on any anticoagulation. He is also not on any oxygen at home for his COPD. He is still a tobacco smoker but says he only smokes 1 to 2 cigarettes/day. No recent travel or sick contacts at home. He has not taken anything for symptoms prior to presentation today. The patient has some recent cardiac work-ups including a negative stress test in July and in late August the patient had a cardiac catheterization that showed very mild nonobstructive coronary artery disease with 25% mid right coronary artery stenosis. 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 - Related Data Previous Rx's Medication Instructions Recorded Last Taken Type Albuterol Mdi (or & Nicu Only) 2 puff IH QID PRN #1 inhalation 11/19/19 Unknown Rx [ProAir HFA Inhaler] Aspirin EC [Halfprin EC] 81 mg PO QDAY #30 tablet. 11/19/19 Unknown Rx AtorvaSTATin [Lipitor] 40 mg PO QHS #30 tab 11/19/19 Unknown Rx Famotidine [Pepcid] 20 mg PO BID #60 tablet 11/19/19 Unknown Rx Fluticasone/Vilanterol [Breo 1 each IH DAILY #1 blst.w.dev 11/19/19 Unknown Rx Ellipta 100-25 Mcg INH] Sennosides Tab [Senokot] 8.6 mg PO Q12HR #30 tablet 11/19/19 Unknown Rx amLODIPine 10 mg PO QDAY #30 tablet 11/19/19 Unknown Rx Acetaminophen [Acetaminophen TAB] 650 mg PO Q4H PRN tablet 11/20/19 Unknown Rx Aspirin EC [Halfprin EC] 81 mg PO QDAY tablet 11/20/19 Unknown Rx AtorvaSTATin [Lipitor] 40 mg PO QHS #30 tablet 11/20/19 Unknown Rx Famotidine [Pepcid] 20 mg PO DAILY #14 tablet 11/20/19 Unknown Rx Ipratropium/Albuterol Sulfate 1 ampul IH TIDRT #1 ampul.neb 11/20/19 Unknown Rx [DUONEB *Not for PRN Use*] amLODIPine 10 mg PO QDAY #30 tablet 11/20/19 Unknown Rx clonazePAM [KlonoPIN] 1 mg PO QHS #30 tablet 11/20/19 Unknown Rx oxyCODONE /ACETAMINOPHEN [Percocet 1 tab PO Q6H PRN #7 tablet 11/20/19 Unknown Rx 5/325 mg] ALBUTEROL NEB's [Proventil 0.083% 2.5 mg IH QIDRT PRN #60 nebu 12/05/19 Unknown Rx NEBS] predniSONE [Deltasone] 50 mg PO QDAY #5 tab 12/05/19 Unknown Rx Albuterol Sulfate [Proventil Hfa] 2 puff IH Q4HR PRN #1 hfa.aer.ad 12/10/19 U nknown Rx predniSONE [Deltasone] 20 mg PO BID #6 tab 12/10/19 Unknown Rx Allergies Allergy/AdvReac Type Severity Reaction Status Date / Time No Known Allergies Allergy Verified 10/01/19 18:34 Heart Score - HEART Score History: Slightly suspicious EKG: Normal Age: 45-65 Risk factors: > 3 risk factors or hx of atherosclerotic disease Troponin: < normal limit HEART Score: 3 - Critical Actions Critical Actions: 0-3 pts:0.9-1.7%risk of adverse cardiac event.Candidate for discharge ED Review of Systems ROS: Stated complaint: RICKY Other details as noted in HPI Comment: All other systems reviewed and negative Constitutional: denies: chills, fever Eyes: denies: eye pain, vision change ENT: denies: ear pain, throat pain Respiratory: shortness of breath. denies: wheezing Cardiovascular: chest pain. denies: palpitations, edema Gastrointestinal: denies: abdominal pain, vomiting Genitourinary: denies: dysuria, discharge Musculoskeletal: denies: back pain, arthralgia Skin: denies: rash, lesions Neurological: denies: headache, weakness ED Past Medical Hx - Past Medical History Previous Medical History?: Yes Hx Hypertension: Yes Hx Congestive Heart Failure: No Hx Diabetes: No Hx Pulmonary Embolism: Yes Hx Asthma: Yes Hx COPD: Yes Hx HIV: Yes (unknown CD4 count) Additional medical history: Elevated Cholesterol & Chronic back pain. - Social History Smoking Status: Former Smoker Substance Use Type: Cocaine - Medications Home Medications: Home Medications Medication Instructions Recorded Confirmed Last Taken Type Albuterol Mdi (or & Nicu Only) 2 puff IH QID PRN #1 inhalation 11/19/19 Unknown Rx [ProAir HFA Inhaler] Aspirin EC [Halfprin EC] 81 mg PO QDAY #30 tablet. 11/19/19 Unknown Rx AtorvaSTATin [Lipitor] 40 mg PO QHS #30 tab 11/19/19 Unknown Rx Famotidine [Pepcid] 20 mg PO BID #60 tablet 11/19/19 Unknown Rx Fluticasone/Vilanterol [Breo 1 each IH DAILY #1 blst.w.dev 11/19/19 Unknown Rx Ellipta 100-25 Mcg INH] Sennosides Tab [Senokot] 8.6 mg PO Q12HR #30 tablet 11/19/19 Unknown Rx amLODIPine 10 mg PO QDAY #30 tablet 11/19/19 Unknown Rx Acetaminophen [Acetaminophen TAB] 650 mg PO Q4H PRN tablet 11/20/19 Unknown Rx Aspirin EC [Halfprin EC] 81 mg PO QDAY tablet 11/20/19 Unknown Rx AtorvaSTATin [Lipitor] 40 mg PO QHS #30 tablet 11/20/19 Unknown Rx Famotidine [Pepcid] 20 mg PO DAILY #14 tablet 11/20/19 Unknown Rx Ipratropium/Albuterol Sulfate 1 ampul IH TIDRT #1 ampul.neb 11/20/19 Unknown Rx [DUONEB *Not for PRN Use*] amLODIPine 10 mg PO QDAY #30 tablet 11/20/19 Unknown Rx clonazePAM [KlonoPIN] 1 mg PO QHS #30 tablet 11/20/19 Unknown Rx oxyCODONE /ACETAMINOPHEN [Percocet 1 tab PO Q6H PRN #7 tablet 11/20/19 Unknown Rx 5/325 mg] ALBUTEROL NEB's [Proventil 0.083% 2.5 mg IH QIDRT PRN #60 nebu 12/05/19 Unknown Rx NEBS] predniSONE [Deltasone] 50 mg PO QDAY #5 tab 12/05/19 Unknown Rx Albuterol Sulfate [Proventil Hfa] 2 puff IH Q4HR PRN #1 hfa.aer.ad 12/10/19 Unknown Rx predniSONE [Deltasone] 20 mg PO BID #6 tab 12/10/19 Unknown Rx ED Physical Exam - General Limitations: No Limitations - Other Other exam information: GENERAL: The patient is well-developed well-nourished. HENT: Normocephalic. Atraumatic. Patient has moist mucous membranes. EYES: Extraocular motions are intact. NECK: Supple. Trachea is midline. CHEST/LUNGS: Mild expiratory wheezing. A cough heard during examination. No tachypnea or accessory muscle use. There is no respiratory distress noted. There is reproducible tenderness to palpation along the chest wall, but no crepitus or deformity. HEART/CARDIOVASCULAR: Regular. There is no tachycardia. There is no murmur. ABDOMEN: Abdomen is soft, nontender. Patient has normal bowel sounds. SKIN: Skin is warm and dry. NEURO: The patient is awake, alert, and oriented. The patient is cooperative. The patient has no focal neurologic deficits. Normal speech. MUSCULOSKELETAL: There is no tenderness or deformity. There is no limitation range of motion. ED Course Vital Signs 12/10/19 12/10/19 18:19 20:10 Temperature 98.2 F Pulse Rate 65 Respiratory 18 18 Rate Blood Pressure 134/96 [Left] O2 Sat by Pulse 97 Oximetry SHARIF score - Sharif Score Age > 65: (0) No Aspirin use within the Past 7 Days: (0) No 3 or more CAD Risk Factors: (1) Yes 2 or more Angina events in past 24 hrs: (1) Yes Known CAD with more than 50% Stenosis: (0) No Elevated Cardiac Markers: (0) No ST Deviation Greater than 0.5mm: (0) No SHARIF Score: 2 ED Medical Decision Making - Lab Data Result diagrams: 12/10/19 11:40 12/10/19 11:40 - EKG Data -: EKG Interpreted by De EKG shows normal: sinus rhythm, axis, intervals, QRS complexes, ST-T waves Rate: normal - EKG Data When compared to previous EKG there are: no significant change Interpretation: unchanged when compared t (12/04/19) - Radiology Data Radiology results: image reviewed interpreted by me: Chest x-ray does not show any acute process. There are no pleural effusions, obvious pneumonia and there is no pneumothorax. No significant cardiomegaly. - Medical Decision Making This patient presents to the emergency department with a complaint of some chest pain and shortness of breath that started earlier today. EKG is normal without any morphology consistent with ST elevation myocardial infarction or any dysrhythmia or ischemia. Chest x-ray does not show any pneumonia, pleural effusions, pneumothorax, focal consolidation, or any other acute process. The patient's labs have been unremarkable including CBC, metabolic panel, negative troponins x3 and a D-dimer under the negative predictive value for DVT/PE. On examination the patient has some mild expiratory wheezing but does not appear in any respiratory or acute distress. His chest pain is reproducible to palpation of the chest wall. The patient had a negative stress test in July of this year and had a recent heart catheterization that showed nonobstructive coronary artery disease. His vital signs have been reassuring throughout his ED course including being afebrile. For obvious reason the patient appears safe for discharge home. He was given a breathing treatment, and a dose of [place], and upon reevaluation he is feeling greatly improved. He will be discharged home with an albuterol inhaler and a few days of steroids for what I also believe is a COPD exacerbation. The patient's contact information has been sent over to [facility], and someone from their office should be contacting him shortly for close outpatient follow-up. The patient has been instructed to return to the emergency department with any worsening of his symptoms or with any acute distress. Critical Care Time: No Critical care attestation.: If time is entered above; I have spent that time in minutes in the direct care of this critically ill patient, excluding procedure time. ED Disposition Clinical Impression: Tobacco use, History of HIV infection Chest pain Qualifiers: Chest pain type: unspecified Qualified Code(s): R07.9 - Chest pain, unspecified COPD (chronic obstructive pulmonary disease) Qualifiers: COPD type: COPD with acute exacerbation Qualified Code(s): J44.1 - Chronic obstructive pulmonary disease with (acute) exacerbation Disposition: DC-01 TO HOME OR SELFCARE Is pt being admited?: No Condition: Stable Instructions: Chest Pain (ED), Chronic Obstructive Pulmonary Disease (ED) Additional Instructions: Please follow-up with a primary care physician in the next few days. I am sending your contact information to [facility], and someone from their office should be contacting you shortly for close outpatient follow- up. Just in case, I have also given you a referral for Dr. Hernandez, who is one of the cardiologists from that group. Please quit smoking. Take your home medications as prescribed. Return to the emergency department with any worsening of your symptoms, new or concerning symptoms not addressed during this current emergency department visit, or with any acute distress. Prescriptions: predniSONE [Deltasone] 20 mg PO BID #6 tab Albuterol Sulfate [Proventil Hfa] 2 puff IH Q4HR PRN #1 hfa.aer.ad PRN Reason: Wheezing Referrals: PRIMARY CAREMD [Primary Care Provider] - 3-5 Days DAIN MILLER MD [Staff Physician] - 3-5 Days [facility] [Provider Group] - 3-5 Days FRANCIS HERNANDEZ MD [Staff Physician] - 3-5 Days Time of Disposition: 19:48
[2019-12-10 20:11] VITALS: BP 134/96
== END 2019-12-10 20:22 | disposition home or self-care (01) ==
LOC: ED 10:52
DX: J44.9 Chronic obstructive pulmonary disease, unspecified (principal); R07.89 Other chest pain; I10 Essential (primary) hypertension; Z72.0 Tobacco use; Z21 Asymptomatic human immunodeficiency virus [HIV] infection status; Z79.899 Other long term (current) drug therapy
CPT/HCPCS: 36415; 71045; 80048; 84484; 85007; 85025; 85379; 93005; 94640

== ENCOUNTER 2019-12-16 14:38 | Observation (INO) | payer MEDICARE ==
[2019-12-16] MEDS ORDERED: ASPIRIN 325 MG TAB PO ONE (15:20)
[2019-12-16 15:52] LABS: Mean Corpuscular HGB Conc 30 % (32-34); Mean Corpuscular Volume 75 fl (84-94); Platelet Count 287 K/mm3 (140-440); Red Blood Count 4.09 M/mm3 (3.65-5.03)
--- NOTE | 2019-12-16 16:02 | XRay Report ---
CHEST 1 VIEW INDICATION / CLINICAL INFORMATION: Chest Pain. COMPARISON: 12/10/2019 FINDINGS: SUPPORT DEVICES: None. HEART / MEDIASTINUM: No significant abnormality. LUNGS / PLEURA: No significant pulmonary or pleural abnormality. No pneumothorax. ADDITIONAL FINDINGS: No significant additional findings. IMPRESSION: No acute disease or interval change from 12/10/2019 Signer Name: Leno Monzon MD FACR Signed: 12/16/2019 3:57 PM Workstation Name: [id number]
[2019-12-16 16:03] LABS: Hematocrit 30.5 % (35.5-45.6); Hemoglobin 9.1 gm/dl (11.8-15.2); Red Cell Distribution Width 28.8 % (13.2-15.2)
[2019-12-16 16:12] LABS: Calcium 6.9 mg/dL (8.4-10.2)
[2019-12-16] MEDS ORDERED: MORPHINE 4 MG/1 ML INJ IV ONE (16:29)
[2019-12-16] MEDS ORDERED: ONDANSETRON 4 MG/2 ML INJ IV ONE (16:29)
[2019-12-16] MEDS ORDERED: NITROGLYCERIN 2% OINT 1 GM TP ONE (16:29)
--- NOTE | 2019-12-16 16:30 | Emergency Department Report ---
HPI - General Chief Complaint: Chest Pain Time Seen by Provider: 12/16/19 16:18 - HPI HPI: Room 26 The patient is a 64-year-old male present with a chief complaint of chest pain. The patient states this morning developed substernal chest pain that was sharp and constant in nature. Patient is to shortness of breath, diaphoresis and nausea without vomiting associated with this chest pain. Patient currently gives his pain a score of 8/10. The patient admits to cocaine use and states he last used yesterday. Patient states he has never had a cardiac catheterization ED Past Medical Hx - Past Medical History Previous Medical History?: Yes Hx Hypertension: Yes Hx Pulmonary Embolism: Yes Hx Asthma: Yes Hx COPD: Yes Hx HIV: Yes (unknown CD4 count) Additional medical history: Elevated Cholesterol & Chronic back pain. - Family History Family history: no significant - Social History Smoking Status: Former Smoker Substance Use Type: Cocaine - Medications Home Medications: Home Medications Medication Instructions Recorded Confirmed Last Taken Type Albuterol Mdi (or & Nicu Only) 2 puff IH QID PRN #1 inhalation 11/19/19 Unknown Rx [ProAir HFA Inhaler] Aspirin EC [Halfprin EC] 81 mg PO QDAY #30 tablet. 11/19/19 Unknown Rx AtorvaSTATin [Lipitor] 40 mg PO QHS #30 tab 11/19/19 Unknown Rx Famotidine [Pepcid] 20 mg PO BID #60 tablet 11/19/19 Unknown Rx Fluticasone/Vilanterol [Breo 1 each IH DAILY #1 blst.w.dev 11/19/19 Unknown Rx Ellipta 100-25 Mcg INH] Sennosides Tab [Senokot] 8.6 mg PO Q12HR #30 tablet 11/19/19 Unknown Rx amLODIPine 10 mg PO QDAY #30 tablet 11/19/19 Unknown Rx Acetaminophen [Acetaminophen TAB] 650 mg PO Q4H PRN tablet 11/20/19 Unknown Rx Aspirin EC [Halfprin EC] 81 mg PO QDAY tablet 11/20/19 Unknown Rx AtorvaSTATin [Lipitor] 40 mg PO QHS #30 tablet 11/20/19 Unknown Rx Famotidine [Pepcid] 20 mg PO DAILY #14 tablet 11/20/19 Unknown Rx Ipratropium/Albuterol Sulfate 1 ampul IH TIDRT #1 ampul.neb 11/20/19 Unknown Rx [DUONEB *Not for PRN Use*] amLODIPine 10 mg PO QDAY #30 tablet 11/20/19 Unknown Rx clonazePAM [KlonoPIN] 1 mg PO QHS #30 tablet 11/20/19 Unknown Rx oxyCODONE /ACETAMINOPHEN [Percocet 1 tab PO Q6H PRN #7 tablet 11/20/19 Unknown Rx 5/325 mg] ALBUTEROL NEB's [Proventil 0.083% 2.5 mg IH QIDRT PRN #60 nebu 12/05/19 Unknown Rx NEBS] predniSONE [Deltasone] 50 mg PO QDAY #5 tab 12/05/19 Unknown Rx Albuterol Sulfate [Proventil Hfa] 2 puff IH Q4HR PRN #1 hfa.aer.ad 12/10/19 Unknown Rx predniSONE [Deltasone] 20 mg PO BID #6 tab 12/10/19 Unknown Rx ED Review of Systems ROS: Stated complaint: RICKY Other details as noted in HPI Constitutional: diaphoresis Respiratory: shortness of breath Cardiovascular: chest pain Gastrointestinal: nausea. denies: vomiting Physical Exam - Physical Exam Vital Signs: Vital Signs 12/16/19 15:20 Temperature 98 F Pulse Rate 99 H Respiratory 24 Rate Blood Pressure 150/90 [Right] O2 Sat by Pulse 99 Oximetry Physical Exam: GENERAL: The patient is well-developed well-nourished male lying on stretcher not appearing to be in acute distress. [] HEENT: Normocephalic. Atraumatic. Extraocular motions are intact. Patient has moist mucous membranes. NECK: Supple. Trachea midline CHEST/LUNGS: Clear to auscultation. There is no respiratory distress noted. HEART/CARDIOVASCULAR: Regular. There is no tachycardia. There is no gallop rub or murmur. ABDOMEN: Abdomen is soft, nontender. Patient has normal bowel sounds. There is no abdominal distention. SKIN: There is no rash. There is no edema. There is no diaphoresis. NEURO: The patient is awake, alert, and oriented. The patient is cooperative. The patient has normal speech MUSCULOSKELETAL: There is no evidence of acute injury. ED Course Vital Signs 12/16/19 15:20 Temperature 98 F Pulse Rate 99 H Respiratory 24 Rate Blood Pressure 150/90 [Right] O2 Sat by Pulse 99 Oximetry ED Medical Decision Making - Lab Data Result diagrams: 12/16/19 15:36 12/16/19 15:36 Laboratory Tests 12/16/19 12/16/19 15:36 15:36 WBC 8.3 RBC 4.09 Hgb 9.1 L Hct 30.5 L MCV 75 L MCH 22 L MCHC 30 L RDW 28.8 H Plt Count 287 Add Manual Diff Complete Total Counted 100 Seg Neuts % (Manual) 84.0 H Band Neutrophils % 0 Lymphocytes % (Manual) 6.0 L Reactive Lymphs % (Man) 0 Monocytes % (Manual) 8.0 H Eosinophils % (Manual) 2.0 Basophils % (Manual) 0 Metamyelocytes % 0 Myelocytes % 0 Promyelocytes % 0 Blast Cells % 0 Nucleated RBC % Not Reportable Seg Neutrophils # Man 7.0 Band Neutrophils # 0.0 Lymphocytes # (Manual) 0.5 L Abs React Lymphs (Man) 0.0 Monocytes # (Manual) 0.7 Eosinophils # (Manual) 0.2 Basophils # (Manual) 0.0 Metamyelocytes # 0.0 Myelocytes # 0.0 Promyelocytes # 0.0 Blast Cells # 0.0 WBC Morphology Not Reportable Hypersegmented Neuts Not Reportable Hyposegmented Neuts Not Reportable Hypogranular Neuts Not Reportable Smudge Cells Not Reportable Toxic Granulation Not Reportable Toxic Vacuolation Not Reportable Dohle Bodies Not Reportable Pelger-Huet Anomaly Not Reportable Ruma Rods Not Reportable Platelet Estimate Consistent w auto Clumped Platelets Not Reportable Plt Clumps, EDTA Not Reportable Large Platelets Not Reportable Giant Platelets Not Reportable Platelet Satelliting Not Reportable Plt Morphology Comment Not Reportable RBC Morphology Not Reportable Dimorphic RBCs Not Reportable Polychromasia Not Reportable Hypochromasia 1+ Poikilocytosis Not Reportable Anisocytosis 3+ Microcytosis Few Macrocytosis Not Reportable Spherocytes Not Reportable Pappenheimer Bodies Not Reportable Sickle Cells Not Reportable Target Cells Not Reportable Tear Drop Cells Not Reportable Ovalocytes Not Reportable Helmet Cells Not Reportable [place] Bodies Not Reportable [place] Rings Not Reportable [place] Cells Not Reportable Bite Cells Not Reportable Crenated Cell Not Reportable Elliptocytes Few Acanthocytes (Spur) Rare Rouleaux Not Reportable Hemoglobin C Crystals Not Reportable Schistocytes Not Reportable Malaria parasites Not Reportable Ric Bodies Not Reportable Hem Pathologist Commnt No Sodium 142 Potassium 4.1 Chloride 101.7 Carbon Dioxide 23 Anion Gap 21 BUN 24 H Creatinine 1.7 H Estimated GFR 41 BUN/Creatinine Ratio 14 Glucose 88 Calcium 6.9 L - EKG Data -: EKG Interpreted by Me EKG shows normal: sinus rhythm Rate: normal - EKG Data When compared to previous EKG there are: no significant change Interpretation: nonspecific ST-T wave toya (T wave inversion in lead aVL) - Radiology Data Radiology results: report reviewed (Chest x-ray), image reviewed (Chest x-ray) interpreted by me: Chest x-ray-no focal infiltrates, no pneumothorax. No foreign body seen [facility] [address] [place] [address] XRay Report Signed Patient: NAVARRO YAN MR #: [id number] : 1955 Acct:[id number] Age/Sex: 64 / M ADM Date: 12/16/19 Loc: ED Attending Dr: Ordering Physician: ED MD FAYE Date of Service: 12/16/19 Procedure(s): XR chest 1V ap Accession Number(s): [id number] cc: ED DOCMD Fluoro Time In Minutes: CHEST 1 VIEW INDICATION / CLINICAL INFORMATION: Chest Pain. COMPARISON: 12/10/2019 FINDINGS: SUPPORT DEVICES: None. HEART / MEDIASTINUM: No significant abnormality. LUNGS / PLEURA: No significant pulmonary or pleural abnormality. No pneumothorax. ADDITIONAL FINDINGS: No significant additional findings. IMPRESSION: No acute disease or interval change from 12/10/2019 Signer Name: Leno Monzon MD FACR Signed: 12/16/2019 3:57 PM Workstation Name: [id number] Transcribed By: MS Dictated By: Leno Monzon MD Electronically Authenticated By: Leno Monzon MD Signed Date/Time: 12/16/191556 DD/ 56 TD/TT: - Differential Diagnosis Cocaine cardiomyopathy, ACS, pericarditis, GERD Critical care attestation.: If time is entered above; I have spent that time in minutes in the direct care of this critically ill patient, excluding procedure time. ED Disposition Clinical Impression: Chest pain, Cocaine use Disposition: DC- OP ADMIT IP TO THIS HOSP Is pt being admited?: Yes Does the pt Need Aspirin: Yes Condition: Fair Instructions: Chest Pain (ED) Time of Disposition: 17:54 (Hospitalist paged (Dr. Rangel)) HEART Score - HEART Score History: Moderately suspicious EKG: Non-specific Age: 45-65 Risk factors: > 3 risk factors or hx of atherosclerotic disease Troponin: < normal limit HEART Score: 5
[2019-12-16 17:08] LABS: Anisocytosis 3+; Basophils % (Manual) 0 % (0.0-1.8); Hypochromasia 1+; Total Cells Counted 100
[2019-12-16 17:11] LABS: Platelet Estimate Consistent w Auto
[2019-12-16 17:57] LABS: Creatine Kinase MB 13.2 ng/mL (0.0-4.0)
--- NOTE | 2019-12-16 18:59 | Event Note ---
Date: 12/16/19
[2019-12-16 21:38] VITALS: BP 109/68
== END 2019-12-16 21:38 | disposition home or self-care (01) ==
LOC: ED 14:38 → 4A 17:55
PROVIDERS: ADMIT Internal Medicine; ATTEND Internal Medicine
DX: R07.89 Other chest pain (principal); F14.90 Cocaine use, unspecified, uncomplicated; I10 Essential (primary) hypertension; J44.9 Chronic obstructive pulmonary disease, unspecified; E78.00 Pure hypercholesterolemia, unspecified; G89.29 Other chronic pain; M54.9 Dorsalgia, unspecified; Z21 Asymptomatic human immunodeficiency virus [HIV] infection status; Z86.711 Personal history of pulmonary embolism; Z87.891 Personal history of nicotine dependence; Z79.82 Long term (current) use of aspirin
CPT/HCPCS: 36415; 71045; 80048; 82550; 82553; 84484; 85007; 85025; 93005; 96374; 96375; 99285; G0378; J2270; J2405

== ENCOUNTER 2019-12-22 04:16 | Emergency (ER) | payer MEDICARE ==
--- NOTE | 2019-12-22 05:21 | XRay Report ---
CHEST 1 VIEW 4:48 AM INDICATION / CLINICAL INFORMATION: Chest Pain. Difficulty breathing. COMPARISON: 12/16/19. FINDINGS: SUPPORT DEVICES: None. HEART / MEDIASTINUM: The heart size and pulmonary vasculature are normal. LUNGS / PLEURA: There is a tiny calcified granuloma in the right upper lobe. The lungs are otherwise clear. No pneumothorax. ADDITIONAL FINDINGS: No significant additional findings. IMPRESSION: No acute abnormality or significant change. Signer Name: Juan Egan MD Signed: 12/22/2019 5:17 AM Workstation Name: [id number]
[2019-12-22 06:18] LABS: Hematocrit 29.2 % (35.5-45.6); Hemoglobin 8.7 gm/dl (11.8-15.2); Mean Corpuscular HGB Conc 30 % (32-34); Mean Corpuscular Volume 75 fl (84-94); Platelet Count 256 K/mm3 (140-440); Red Blood Count 3.92 M/mm3 (3.65-5.03)
[2019-12-22 06:19] LABS: Red Cell Distribution Width 28.5 % (13.2-15.2)
[2019-12-22 06:20] LABS: Basophils % (Auto) 0.1 % (0.0-1.8); Eosinophils # (Auto) 0.4 K/mm3 (0.0-0.4); Eosinophils % (Auto) 6.1 % (0.0-4.3); Lymphocytes # (Auto) 0.5 K/mm3 (1.2-5.4); Lymphocytes % (Auto) 7.8 % (13.4-35.0); Monocytes # (Auto) 0.6 K/mm3 (0.0-0.8); Monocytes % (Auto) 9.3 % (0.0-7.3)
[2019-12-22] MEDS ORDERED: IPRATROPIUM/ALBUTEROL SULFATE 3 ML AMPUL.NEB IH ONE (06:39)
[2019-12-22] MEDS ORDERED: MAGNESIUM SULFATE 2 GM/50 ML BAG IV ONE (06:39)
[2019-12-22] MEDS ORDERED: methylPREDNISolone Sod Succinate 125 MG/2 ML INJ IV ONE (06:39)
[2019-12-22 06:45] LABS: BUN/Creatinine Ratio 12; Blood Urea Nitrogen 20 mg/dL (9-20); Calcium 7.2 mg/dL (8.4-10.2); Hemolysis Index 0
--- NOTE | 2019-12-22 07:25 | Emergency Department Report ---
ED General Adult HPI - General Chief complaint: Dyspnea/Respdistress Stated complaint: RICKY PUI?: No Time Seen by Provider: 12/22/19 06:14 Source: patient, EMS Mode of arrival: Stretcher Limitations: No Limitations - History of Present Illness Initial comments: Patient is a 64-year old man with a history of COPD, HIV positive. He states that he is not on oxygen but he is on home nebs. He states this was ineffective. EMS was called. Patient himself states that they administered no treatments or medication. The nurse informs me that the medics stated that they did give a albuterol neb. Not withstanding this, the patient states that he still is short of breath. He was noted to be a bit tachypneic but not wheezing. He denied fever or chills. He denied any significant cough. He states he stopped smoking "3 weeks ago". He is not on prednisone currently but states he is placed on this typically. He states he was here 5 days ago in the emergency department and was given a course of prednisone. Review of the patient's last visit here indicates that he was seen for chest pain associated with cocaine abuse. There is an event note by a hospitalist which is not filled out. I would presume that the patient eloped or signed out AMA. The triage record indicates that "upon arrival to the emergency department the patient reported sharp, burning, constant sternal chest pain that radiates to the left chest onset 30 minutes prior to arrival". He had no complaint of chest pain upon my encounter. -: Gradual, days(s) Location: chest Quality: other (Not complaining of chest pain to me) Associated Symptoms: denies other symptoms - Related Data Previous Rx's Medication Instructions Recorded Last Taken Type AtorvaSTATin [Lipitor] 40 mg PO QHS #30 tab 11/19/19 Unknown Rx Famotidine [Pepcid] 20 mg PO BID #60 tablet 11/19/19 Unknown Rx Fluticasone/Vilanterol [Breo 1 each IH DAILY #1 blst.w.dev 11/19/19 Unknown Rx Ellipta 100-25 Mcg INH] Sennosides Tab [Senokot] 8.6 mg PO Q12HR #30 tablet 11/19/19 Unknown Rx amLODIPine 10 mg PO QDAY #30 tablet 11/19/19 Unknown Rx Acetaminophen [Acetaminophen TAB] 650 mg PO Q4H PRN tablet 11/20/19 Unknown Rx Aspirin EC [Halfprin EC] 81 mg PO QDAY tablet 11/20/19 Unknown Rx AtorvaSTATin [Lipitor] 40 mg PO QHS #30 tablet 11/20/19 Unknown Rx Famotidine [Pepcid] 20 mg PO DAILY #14 tablet 11/20/19 Unknown Rx Ipratropium/Albuterol Sulfate 1 ampul IH TIDRT #1 ampul.neb 11/20/19 Unknown Rx [DUONEB *Not for PRN Use*] amLODIPine 10 mg PO QDAY #30 tablet 11/20/19 Unknown Rx clonazePAM [KlonoPIN] 1 mg PO QHS #30 tablet 11/20/19 Unknown Rx oxyCODONE /ACETAMINOPHEN [Percocet 1 tab PO Q6H PRN #7 tablet 11/20/19 Unknown Rx 5/325 mg] predniSONE [Deltasone] 50 mg PO QDAY #5 tab 12/05/19 Unknown Rx Albuterol Sulfate [Proventil Hfa] 2 puff IH Q4HR PRN #1 hfa.aer.ad 12/10/19 Unknown Rx predniSONE [Deltasone] 20 mg PO BID #6 tab 12/10/19 Unknown Rx ALBUTEROL NEB's [Proventil 0.083% 2.5 mg IH QIDRT PRN #60 nebu 12/22/19 Unknown Rx NEBS] Albuterol Mdi (or & Nicu Only) 2 puff IH QID PRN #1 inhalation 12/22/19 Unknown Rx [ProAir HFA Inhaler] Aspirin EC [Halfprin EC] 81 mg PO QDAY #30 tablet. 12/22/19 Unknown Rx Allergies Allergy/AdvReac Type Severity Reaction Status Date / Time No Known Allergies Allergy Verified 10/01/19 18:34 ED Review of Systems ROS: Stated complaint: RICKY Other details as noted in HPI Constitutional: denies: chills, fever Eyes: denies: eye pain, eye discharge, vision change ENT: denies: ear pain, throat pain Respiratory: shortness of breath, wheezing. denies: cough Cardiovascular: as per HPI. denies: palpitations Endocrine: no symptoms reported Gastrointestinal: denies: abdominal pain, nausea, diarrhea Genitourinary: denies: urgency, dysuria Musculoskeletal: denies: back pain, joint swelling, arthralgia Skin: denies: rash, lesions Neurological: denies: headache, weakness, paresthesias Psychiatric: denies: anxiety, depression Hematological/Lymphatic: denies: easy bleeding, easy bruising ED Past Medical Hx - Past Medical History Previous Medical History?: Yes Hx Hypertension: Yes Hx Congestive Heart Failure: No Hx Diabetes: No Hx Pulmonary Embolism: Yes Hx Asthma: Yes Hx COPD: Yes Hx HIV: Yes (unknown CD4 count) Additional medical history: Elevated Cholesterol & Chronic back pain. - Surgical History Past Surgical History?: No - Social History Smoking Status: Former Smoker - Medications Home Medications: Home Medications Medication Instructions Recorded Confirmed Last Taken Type AtorvaSTATin [Lipitor] 40 mg PO QHS #30 tab 11/19/19 12/22/19 Unknown Rx Famotidine [Pepcid] 20 mg PO BID #60 tablet 11/19/19 12/22/19 Unknown Rx Fluticasone/Vilanterol [Breo 1 each IH DAILY #1 blst.w.dev 11/19/19 12/22/19 Unknown Rx Ellipta 100-25 Mcg INH] Sennosides Tab [Senokot] 8.6 mg PO Q12HR #30 tablet 11/19/19 12/22/19 Unknown Rx amLODIPine 10 mg PO QDAY #30 tablet 11/19/19 12/22/19 Unknown Rx Acetaminophen [Acetaminophen TAB] 650 mg PO Q4H PRN tablet 11/20/19 12/22/19 Unknown Rx Aspirin EC [Halfprin EC] 81 mg PO QDAY tablet 11/20/19 12/22/19 Unknown Rx AtorvaSTATin [Lipitor] 40 mg PO QHS #30 tablet 11/20/19 12/22/19 Unknown Rx Famotidine [Pepcid] 20 mg PO DAILY #14 tablet 11/20/19 12/22/19 Unknown Rx Ipratropium/Albuterol Sulfate 1 ampul IH TIDRT #1 ampul.neb 11/20/19 12/22/19 Unknown Rx [DUONEB *Not for PRN Use*] amLODIPine 10 mg PO QDAY #30 tablet 11/20/19 12/22/19 Unknown Rx clonazePAM [KlonoPIN] 1 mg PO QHS #30 tablet 11/20/19 12/22/19 Unknown Rx oxyCODONE /ACETAMINOPHEN [Percocet 1 tab PO Q6H PRN #7 tablet 11/20/19 12/22/19 Unknown Rx 5/325 mg] predniSONE [Deltasone] 50 mg PO QDAY #5 tab 12/05/19 12/22/19 Unknown Rx Albuterol Sulfate [Proventil Hfa] 2 puff IH Q4HR PRN #1 hfa.aer.ad 12/10/19 12/22/19 Unknown Rx predniSONE [Deltasone] 20 mg PO BID #6 tab 12/10/19 12/22/19 Unknown Rx ALBUTEROL NEB's [Proventil 0.083% 2.5 mg IH QIDRT PRN #60 nebu 12/22/19 Unknown Rx NEBS] Albuterol Mdi (or & Nicu Only) 2 puff IH QID PRN #1 inhalation 12/22/19 Unknown Rx [ProAir HFA Inhaler] Aspirin EC [Halfprin EC] 81 mg PO QDAY #30 tablet. 12/22/19 Unknown Rx ED Physical Exam - General Limitations: No Limitations General appearance: alert, in no apparent distress - Head Head exam: Present: atraumatic, normocephalic - Eye Eye exam: Present: normal appearance. Absent: scleral icterus - ENT ENT exam: Present: mucous membranes moist - Neck Neck exam: Present: normal inspection - Respiratory Respiratory exam: Present: other (Somewhat tachypneic but no wheezes noted). Absent: respiratory distress, wheezes - Cardiovascular Cardiovascular Exam: Present: regular rate, normal rhythm. Absent: systolic murmur, diastolic murmur, rubs, gallop - GI/Abdominal GI/Abdominal exam: Present: soft, normal bowel sounds. Absent: distended, tenderness, guarding, rebound, rigid - Rectal Rectal exam: Present: deferred - Extremities Exam Extremities exam: Present: normal inspection. Absent: calf tenderness - Back Exam Back exam: Present: normal inspection - Neurological Exam Neurological exam: Present: alert, oriented X3, CN II-XII intact. Absent: motor sensory deficit - Psychiatric Psychiatric exam: Present: normal affect, normal mood - Skin Skin exam: Present: warm, dry, intact, normal color. Absent: rash ED Course Vital Signs 12/22/19 12/22/19 12/22/19 04:28 04:30 05:00 Temperature 98.4 F Pulse Rate 90 88 90 Respiratory 22 22 23 Rate Blood Pressure 154/100 136/88 O2 Sat by Pulse 100 100 99 Oximetry 12/22/19 12/22/19 12/22/19 05:30 06:00 06:30 Temperature Pulse Rate 83 80 60 Respiratory 25 H 20 22 Rate Blood Pressure 136/88 131/83 129/87 O2 Sat by Pulse 93 98 78 L Oximetry 12/22/19 12/22/19 12/22/19 07:00 07:30 08:00 Temperature Pulse Rate 86 70 69 Respiratory 19 18 27 H Rate Blood Pressure 144/96 140/94 136/81 O2 Sat by Pulse 91 90 Oximetry 12/22/19 12/22/19 12/22/19 08:30 09:00 09:30 Temperature Pulse Rate 66 62 64 Respiratory 24 24 24 Rate Blood Pressure 124/68 142/79 128/78 O2 Sat by Pulse 92 89 94 Oximetry 12/22/19 12:00 Temperature Pulse Rate 86 Respiratory 21 Rate Blood Pressure 118/82 O2 Sat by Pulse 95 Oximetry - Reevaluation(s) Reevaluation #1: Patient resting comfortably. He is breathing without wheezing. He agrees that he should stop abusing cocaine. 12/22/19 12:27 ED Medical Decision Making - Lab Data Result diagrams: 12/22/19 05:30 12/22/19 05:30 Laboratory Results - last 24 hr 12/22/19 12/22/19 12/22/19 05:30 05:30 07:44 WBC 6.0 RBC 3.92 Hgb 8.7 L Hct 29.2 L MCV 75 L MCH 22 L MCHC 30 L RDW 28.5 H Plt Count 256 Lymph % (Auto) 7.8 L [place] % (Auto) 9.3 H Eos % (Auto) 6.1 H Baso % (Auto) 0.1 Lymph # (Auto) 0.5 L [place] # (Auto) 0.6 Eos # (Auto) 0.4 Baso # (Auto) 0.0 Seg Neutrophils % 76.7 H Seg Neutrophils # 4.6 PT INR APTT D-Dimer ABG pH ABG pCO2 ABG pO2 ABG HCO3 ABG O2 Saturation ABG O2 Content ABG Base Excess ABG Hemoglobin ABG Carboxyhemoglobin ABG Methemoglobin Oxyhemoglobin FiO2 Sodium 142 Potassium 3.7 Chloride 102.6 Carbon Dioxide 31 H Anion Gap 12 BUN 20 Creatinine 1.7 H Estimated GFR 41 BUN/Creatinine Ratio 12 Glucose 100 Calcium 7.2 L Magnesium Total Bilirubin Direct Bilirubin Indirect Bilirubin AST ALT Alkaline Phosphatase Troponin T < 0.010 < 0.010 NT-Pro-B Natriuret Pep Total Protein Albumin Albumin/Globulin Ratio Urine Bilirubin Urine RBC (Auto) U Epithel Cells (Auto) Urine Opiates Screen Urine Methadone Screen Ur Barbiturates Screen Ur Phencyclidine Scrn Ur Amphetamines Screen U Benzodiazepines Scrn U Marijuana (THC) Screen 12/22/19 12/22/19 12/22/19 07:44 08:11 08:21 WBC RBC Hgb Hct MCV MCH MCHC RDW Plt Count Lymph % (Auto) [place] % (Auto) Eos % (Auto) Baso % (Auto) Lymph # (Auto) [place] # (Auto) Eos # (Auto) Baso # (Auto) Seg Neutrophils % Seg Neutrophils # PT 13.6 INR 1.03 APTT 23.9 L D-Dimer 420.59 H ABG pH 7.408 ABG pCO2 46.1 ABG pO2 64.2 L ABG HCO3 28.4 H ABG O2 Saturation 92.0 L ABG O2 Content 11.4 ABG Base Excess 3.3 H ABG Hemoglobin 9.0 L ABG Carboxyhemoglobin 2.0 ABG Methemoglobin 0.5 Oxyhemoglobin 89.7 L FiO2 21 Sodium Potassium Chloride Carbon Dioxide Anion Gap BUN Creatinine Estimated GFR BUN/Creatinine Ratio Glucose Calcium Magnesium 2.10 Total Bilirubin 0.20 Direct Bilirubin < 0.2 Indirect Bilirubin 0.0 AST 17 ALT 21 Alkaline Phosphatase 64 Troponin T NT-Pro-B Natriuret Pep 476.1 Total Protein 6.7 Albumin 3.2 L Albumin/Globulin Ratio 0.9 Urine Bilirubin Urine RBC (Auto) U Epithel Cells (Auto) Urine Opiates Screen Urine Methadone Screen Ur Barbiturates Screen Ur Phencyclidine Scrn Ur Amphetamines Screen U Benzodiazepines Scrn U Marijuana (THC) Screen 12/22/19 12/22/19 08:40 08:40 WBC RBC Hgb Hct MCV MCH MCHC RDW Plt Count Lymph % (Auto) [place] % (Auto) Eos % (Auto) Baso % (Auto) Lymph # (Auto) [place] # (Auto) Eos # (Auto) Baso # (Auto) Seg Neutrophils % Seg Neutrophils # PT INR APTT D-Dimer ABG pH ABG pCO2 ABG pO2 ABG HCO3 ABG O2 Saturation ABG O2 Content ABG Base Excess ABG Hemoglobin ABG Carboxyhemoglobin ABG Methemoglobin Oxyhemoglobin FiO2 Sodium Potassium Chloride Carbon Dioxide Anion Gap BUN Creatinine Estimated GFR BUN/Creatinine Ratio Glucose Calcium Magnesium Total Bilirubin Direct Bilirubin Indirect Bilirubin AST ALT Alkaline Phosphatase Troponin T NT-Pro-B Natriuret Pep Total Protein Albumin Albumin/Globulin Ratio Urine Bilirubin Neg Urine RBC (Auto) < 1.0 U Epithel Cells (Auto) < 1.0 Urine Opiates Screen Negative Urine Methadone Screen Negative Ur Barbiturates Screen Negative Ur Phencyclidine Scrn Negative Ur Amphetamines Screen Negative U Benzodiazepines Scrn Negative U Marijuana (THC) Screen Negative Laboratory Results - last 24 hr 12/22/19 12/22/19 12/22/19 05:30 05:30 07:44 WBC 6.0 RBC 3.92 Hgb 8.7 L Hct 29.2 L MCV 75 L MCH 22 L MCHC 30 L RDW 28.5 H Plt Count 256 Lymph % (Auto) 7.8 L [place] % (Auto) 9.3 H Eos % (Auto) 6.1 H Baso % (Auto) 0.1 Lymph # (Auto) 0.5 L [place] # (Auto) 0.6 Eos # (Auto) 0.4 Baso # (Auto) 0.0 Seg Neutrophils % 76.7 H Seg Neutrophils # 4.6 PT INR APTT D-Dimer ABG pH ABG pCO2 ABG pO2 ABG HCO3 ABG O2 Saturation ABG O2 Content ABG Base Excess ABG Hemoglobin ABG Carboxyhemoglobin ABG Methemoglobin Oxyhemoglobin FiO2 Sodium 142 Potassium 3.7 Chloride 102.6 Carbon Dioxide 31 H Anion Gap 12 BUN 20 Creatinine 1.7 H Estimated GFR 41 BUN/Creatinine Ratio 12 Glucose 100 Calcium 7.2 L Magnesium Total Bilirubin Direct Bilirubin Indirect Bilirubin AST ALT Alkaline Phosphatase Troponin T < 0.010 < 0.010 NT-Pro-B Natriuret Pep Total Protein Albumin Albumin/Globulin Ratio Urine Color Urine Turbidity Urine pH Ur Specific [place] Urine Protein Urine Glucose (UA) Urine Ketones Urine Blood Urine Nitrite Urine Bilirubin Urine Urobilinogen Ur Leukocyte Esterase Urine WBC (Auto) Urine RBC (Auto) U Epithel Cells (Auto) Urine Opiates Screen Urine Methadone Screen Ur Barbiturates Screen Ur Phencyclidine Scrn Ur Amphetamines Screen U Benzodiazepines Scrn Urine Cocaine Screen U Marijuana (THC) Screen Drugs of Abuse Note 12/22/19 12/22/19 12/22/19 07:44 08:11 08:21 WBC RBC Hgb Hct MCV MCH MCHC RDW Plt Count Lymph % (Auto) [place] % (Auto) Eos % (Auto) Baso % (Auto) Lymph # (Auto) [place] # (Auto) Eos # (Auto) Baso # (Auto) Seg Neutrophils % Seg Neutrophils # PT 13.6 INR 1.03 APTT 23.9 L D-Dimer 420.59 H ABG pH 7.408 ABG pCO2 46.1 ABG pO2 64.2 L ABG HCO3 28.4 H ABG O2 Saturation 92.0 L ABG O2 Content 11.4 ABG Base Excess 3.3 H ABG Hemoglobin 9.0 L ABG Carboxyhemoglobin 2.0 ABG Methemoglobin 0.5 Oxyhemoglobin 89.7 L FiO2 21 Sodium Potassium Chloride Carbon Dioxide Anion Gap BUN Creatinine Estimated GFR BUN/Creatinine Ratio Glucose Calcium Magnesium 2.10 Total Bilirubin 0.20 Direct Bilirubin < 0.2 Indirect Bilirubin 0.0 AST 17 ALT 21 Alkaline Phosphatase 64 Troponin T NT-Pro-B Natriuret Pep 476.1 Total Protein 6.7 Albumin 3.2 L Albumin/Globulin Ratio 0.9 Urine Color Urine Turbidity Urine pH Ur Specific [place] Urine Protein Urine Glucose (UA) Urine Ketones Urine Blood Urine Nitrite Urine Bilirubin Urine Urobilinogen Ur Leukocyte Esterase Urine WBC (Auto) Urine RBC (Auto) U Epithel Cells (Auto) Urine Opiates Screen Urine Methadone Screen Ur Barbiturates Screen Ur Phencyclidine Scrn Ur Amphetamines Screen U Benzodiazepines Scrn Urine Cocaine Screen U Marijuana (THC) Screen Drugs of Abuse Note 12/22/19 12/22/19 12/22/19 08:40 08:40 10:39 WBC RBC Hgb Hct MCV MCH MCHC RDW Plt Count Lymph % (Auto) [place] % (Auto) Eos % (Auto) Baso % (Auto) Lymph # (Auto) [place] # (Auto) Eos # (Auto) Baso # (Auto) Seg Neutrophils % Seg Neutrophils # PT INR APTT D-Dimer ABG pH ABG pCO2 ABG pO2 ABG HCO3 ABG O2 Saturation ABG O2 Content ABG Base Excess ABG Hemoglobin ABG Carboxyhemoglobin ABG Methemoglobin Oxyhemoglobin FiO2 Sodium Potassium Chloride Carbon Dioxide Anion Gap BUN Creatinine Estimated GFR BUN/Creatinine Ratio Glucose Calcium Magnesium Total Bilirubin Direct Bilirubin Indirect Bilirubin AST ALT Alkaline Phosphatase Troponin T < 0.010 NT-Pro-B Natriuret Pep Total Protein Albumin Albumin/Globulin Ratio Urine Color Yellow Urine Turbidity Clear Urine pH 5.0 Ur Specific [place] 1.019 Urine Protein 100 mg/dl Urine Glucose (UA) 50 Urine Ketones Neg Urine Blood Neg Urine Nitrite Neg Urine Bilirubin Neg Urine Urobilinogen < 2.0 Ur Leukocyte Esterase Neg Urine WBC (Auto) < 1.0 Urine RBC (Auto) < 1.0 U Epithel Cells (Auto) < 1.0 Urine Opiates Screen Negative Urine Methadone Screen Negative Ur Barbiturates Screen Negative Ur Phencyclidine Scrn Negative Ur Amphetamines Screen Negative U Benzodiazepines Scrn Negative Urine Cocaine Screen Positive U Marijuana (THC) Screen Negative Drugs of Abuse Note Disclamer - EKG Data -: EKG Interpreted by Me EKG shows normal: sinus rhythm, axis, intervals, QRS complexes, ST-T waves Rate: normal - EKG Data Interpretation: other (P pulmonale no acute ischemic changes) - Radiology Data Radiology results: report reviewed (No acute process consistent with COPD, perfusion scan was not indicative of pulmonary embolism), image reviewed Critical care attestation.: If time is entered above; I have spent that time in minutes in the direct care of this critically ill patient, excluding procedure time. ED Disposition Clinical Impression: Atypical chest pain, COPD exacerbation, Cocaine abuse Disposition: TO HOME OR SELFCARE Is pt being admited?: No Does the pt Need Aspirin: No Condition: Stable Instructions: Chest Pain (ED), Chronic Obstructive Pulmonary Disease (ED), Cocaine Abuse (ED) Additional Instructions: Return to the emergency department any acute change or problem. Prescriptions: Aspirin EC [Halfprin EC] 81 mg PO QDAY #30 tablet. Albuterol i (or & Nicu Only) [ProAir HFA Inhaler] 2 puff IH QID PRN #1 inhalation PRN Reason: Shortness Of Breath ALBUTEROL NEB's [Proventil 0.083% NEBS] 2.5 mg IH QIDRT PRN #60 nebu PRN Reason: Shortness Of Breath Referrals: PRIMARY CARE, [Primary Care Provider] - 3-5 Days [facility] [Provider Group] - 2-3 Days Time of Disposition: 12:28
[2019-12-22 08:37] LABS: ABG Base Excess 3.3 mmol/L (-2.0-3.0); ABG HCO3 28.4 mmol/L (20.0-26.0); ABG Methemoglobin 0.5 % (0.0-1.5); ABG PCO2 46.1 mm Hg; ABG PH 7.408 pH Units (7.350-7.450); ABG PO2 64.2 mm Hg (80.0-90.0)
[2019-12-22 08:40] LABS: Alanine Aminotransferase 21 units/L (7-56); Albumin 3.2 g/dL (3.9-5)
[2019-12-22 08:41] LABS: INR 1.03 (0.87-1.13)
[2019-12-22 08:42] LABS: Partial Thromboplastin Time 23.9 Sec. (24.2-36.6)
[2019-12-22 08:44] LABS: Bilirubin,Direct < 0.2 mg/dL (0-0.2)
[2019-12-22 09:24] LABS: Bilirubin,Urine NEG (Negative); Blood,Urine NEG (Negative); Color,Urine Yellow (Yellow); RBC,Urine < 1.0 /HPF (0.0-6.0); Urobilinogen,Urine < 2.0 mg/dL (<2.0); WBC,Urine < 1.0 /HPF (0.0-6.0)
[2019-12-22 09:29] LABS: Amphetamine Screen,Urine Negative; Benzodiazepines Screen,Urine Negative; Cannabinoid Screen,Urine Negative; Methadone Screen,Urine Negative; Opiate Screen,Urine Negative
[2019-12-22 10:00] LABS: Cocaine Screen,Urine Positive
--- NOTE | 2019-12-22 10:15 | Nuclear Medicine Report ---
NM perfusion only lung scan INDICATION / CLINICAL INFORMATION: CP mildly elevated dimer. TECHNIQUE: Dose / Agent / Route 4.8 mCi technetium MAA, IV COMPARISON: 09/12/2019, chest radiograph done earlier today. FINDINGS: Uptake throughout both lungs is very inhomogeneous but unchanged from the previous exam. Current ches t radiograph shows emphysema but no acute disease. IMPRESSION: 1. Perfusion scan is abnormal, but findings are probably due to emphysema. The lack of change in 3 mo nths suggests no pulmonary embolus. In this patient, radionuclide scan is not very helpful. If pulmonary emboli are suspected, CT angiogr am is the better choice. Signer Name: Clifton Burr MD Signed: 12/22/2019 10:11 AM Workstation Name: [id number]
[2019-12-22 14:51] VITALS: BP 131/86
== END 2019-12-22 14:51 | disposition home or self-care (01) ==
LOC: ED 04:16
DX: J44.1 Chronic obstructive pulmonary disease with (acute) exacerbation (principal); R07.89 Other chest pain; F14.10 Cocaine abuse, uncomplicated; I10 Essential (primary) hypertension; Z21 Asymptomatic human immunodeficiency virus [HIV] infection status; Z87.891 Personal history of nicotine dependence; Z79.899 Other long term (current) drug therapy
CPT/HCPCS: 36415; 71045; 78580; 80048; 80076; 80307; 81001; 82803; 83735; 83880; 84484; 85025; 85379; 85610; 85730; 93005; 94640; 96365; 96375; 99285; A9540; J2930; J3475; 94644

== ENCOUNTER 2019-12-24 19:35 | Emergency (ER) | payer MEDICARE ==
[2019-12-24 22:16] VITALS: BP 151/92
[2019-12-24] MEDS ORDERED: IPRATROPIUM/ALBUTEROL SULFATE 3 ML AMPUL.NEB IH ONE ×2 (22:53→22:58)
[2019-12-24] MEDS ORDERED: ASPIRIN 81 MG TAB CHEW PO ONE (23:31)
--- NOTE | 2019-12-25 00:23 | XRay Report ---
CHEST 2 VIEWS INDICATION / CLINICAL INFORMATION: Chest Pain. FINDINGS: SUPPORT DEVICES: None. HEART / MEDIASTINUM: No significant abnormality. LUNGS / PLEURA: No significant pulmonary or pleural abnormality. No pneumothorax. ADDITIONAL FINDINGS: No significant additional findings. IMPRESSION: 1. No acute findings. Signer Name: Cristi Triana MD Signed: 12/25/2019 12:19 AM Workstation Name: [id number]
[2019-12-25 00:48] LABS: Hematocrit 30.9 % (35.5-45.6); Hemoglobin 9.6 gm/dl (11.8-15.2); Mean Corpuscular HGB Conc 31 % (32-34); Mean Corpuscular Volume 73 fl (84-94); Platelet Count 396 K/mm3 (140-440); Red Blood Count 4.22 M/mm3 (3.65-5.03)
[2019-12-25 01:02] LABS: Red Cell Distribution Width 27.7 % (13.2-15.2)
[2019-12-25 01:08] LABS: Alanine Aminotransferase 25 units/L (7-56); Albumin 3.8 g/dL (3.9-5); BUN/Creatinine Ratio 18; Blood Urea Nitrogen 35 mg/dL (9-20); Calcium 7.3 mg/dL (8.4-10.2); Hemolysis Index 1
--- NOTE | 2019-12-25 02:54 | Emergency Department Report ---
ED Chest Pain HPI - General Chief Complaint: Adult Asthma Stated Complaint: DIFF BREATHING Time Seen by Provider: 12/24/19 23:29 Source: patient Mode of arrival: Stretcher Limitations: No Limitations - History of Present Illness Initial Comments: 64-year-old male with past medical history of asthma, COPD, HIV with unknown CD4 count, hypertension ,hypercholesterolemia and several visits to the emergency department involving chest pain and/or shortness of breath some involving the utilization of cocaine presents emerged department complaining of a sudden onset of shortness of breath associated with wheezing, chest pressure and a cough. Symptoms have been going on for the past few hours and were exacerbated while ambulating and smoking. Reports no fever, chills, hemoptysis, hematemesis, hematochezia. States that chest pain is substernal, she is towards advised with no palliative or provocative factors. Is not tried any [id number] counter home medications to remedy this exacerbation shortness of breath and chest pain was recently seen in the emergency department for similar symptoms. Severity scale (0 -10): 0 Improves With: nothing Worsens With: nothing - Related Data Previous Rx's Medication Instructions Recorded Last Taken Type AtorvaSTATin [Lipitor] 40 mg PO QHS #30 tab 11/19/19 Unknown Rx Famotidine [Pepcid] 20 mg PO BID #60 tablet 11/19/19 Unknown Rx Fluticasone/Vilanterol [Breo 1 each IH DAILY #1 blst.w.dev 11/19/19 Unknown Rx Ellipta 100-25 Mcg INH] Sennosides Tab [Senokot] 8.6 mg PO Q12HR #30 tablet 11/19/19 Unknown Rx amLODIPine 10 mg PO QDAY #30 tablet 11/19/19 Unknown Rx Acetaminophen [Acetaminophen TAB] 650 mg PO Q4H PRN tablet 11/20/19 Unknown Rx Aspirin EC [Halfprin EC] 81 mg PO QDAY tablet 11/20/19 Unknown Rx AtorvaSTATin [Lipitor] 40 mg PO QHS #30 tablet 11/20/19 Unknown Rx Famotidine [Pepcid] 20 mg PO DAILY #14 tablet 11/20/19 Unknown Rx Ipratropium/Albuterol Sulfate 1 ampul IH TIDRT #1 ampul.neb 11/20/19 Unknown Rx [DUONEB *Not for PRN Use*] amLODIPine 10 mg PO QDAY #30 tablet 11/20/19 Unknown Rx clonazePAM [KlonoPIN] 1 mg PO QHS #30 tablet 11/20/19 Unknown Rx oxyCODONE /ACETAMINOPHEN [Percocet 1 tab PO Q6H PRN #7 tablet 11/20/19 Unknown Rx 5/325 mg] Albuterol Sulfate [Proventil Hfa] 2 puff IH Q4HR PRN #1 hfa.aer.ad 12/10/19 Unknown Rx predniSONE [Deltasone] 20 mg PO BID #6 tab 12/10/19 Unknown Rx ALBUTEROL NEB's [Proventil 0.083% 2.5 mg IH QIDRT PRN #60 nebu 12/22/19 Unknown Rx NEBS] Albuterol Mdi (or & Nicu Only) 2 puff IH QID PRN #1 inhalation 12/22/19 Unknown Rx [ProAir HFA Inhaler] Aspirin EC [Halfprin EC] 81 mg PO QDAY #30 tablet.dr 12/22/19 Unknown Rx Montelukast (Nf) [Singulair (Nf)] 5 mg PO QPM #20 tab.chew 12/25/19 Unknown Rx Montelukast [Singulair] 10 mg PO QPM #30 tablet 12/25/19 Unknown Rx predniSONE [Deltasone] 50 mg PO QDAY #5 tab 12/25/19 Unknown Rx Allergies Allergy/AdvReac Type Severity Reaction Status Date / Time No Known Allergies Allergy Verified 10/01/19 18:34 Heart Score - HEART Score History: Slightly suspicious EKG: Normal Age: < 45 Risk factors: No known risk factors Troponin: < normal limit HEART Score: 0 ED Review of Systems ROS: Stated complaint: DIFF BREATHING Other details as noted in HPI Comment: All other systems reviewed and negative ED Past Medical Hx - Past Medical History Previous Medical History?: Yes Hx Hypertension: Yes Hx Congestive Heart Failure: No Hx Diabetes: No Hx Pulmonary Embolism: Yes Hx Asthma: Yes Hx COPD: Yes Hx HIV: Yes (unknown CD4 count) Additional medical history: Elevated Cholesterol & Chronic back pain. - Surgical History Past Surgical History?: No - Social History Smoking Status: Current Every Day Smoker Substance Use Type: Cocaine, Marijuana - Medications Home Medications: Home Medications Medication Instructions Recorded Confirmed Last Taken Type AtorvaSTATin [Lipitor] 40 mg PO QHS #30 tab 11/19/19 12/22/19 Unknown Rx Famotidine [Pepcid] 20 mg PO BID #60 tablet 11/19/19 12/22/19 Unknown Rx Fluticasone/Vilanterol [Breo 1 each IH DAILY #1 blst.w.dev 11/19/19 12/22/19 Unknown Rx Ellipta 100-25 Mcg INH] Sennosides Tab [Senokot] 8.6 mg PO Q12HR #30 tablet 11/19/19 12/22/19 Unknown Rx amLODIPine 10 mg PO QDAY #30 tablet 11/19/19 12/22/19 Unknown Rx Acetaminophen [Acetaminophen TAB] 650 mg PO Q4H PRN tablet 11/20/19 12/22/19 Unknown Rx Aspirin EC [Halfprin EC] 81 mg PO QDAY tablet 11/20/19 12/22/19 Unknown Rx AtorvaSTATin [Lipitor] 40 mg PO QHS #30 tablet 11/20/19 12/22/19 Unknown Rx Famotidine [Pepcid] 20 mg PO DAILY #14 tablet 11/20/19 12/22/19 Unknown Rx Ipratropium/Albuterol Sulfate 1 ampul IH TIDRT #1 ampul.neb 11/20/19 12/22/19 Unknown Rx [DUONEB *Not for PRN Use*] amLODIPine 10 mg PO QDAY #30 tablet 11/20/19 12/22/19 Unknown Rx clonazePAM [KlonoPIN] 1 mg PO QHS #30 tablet 11/20/19 12/22/19 Unknown Rx oxyCODONE /ACETAMINOPHEN [Percocet 1 tab PO Q6H PRN #7 tablet 11/20/19 12/22/19 Unknown Rx 5/325 mg] Albuterol Sulfate [Proventil Hfa] 2 puff IH Q4HR PRN #1 hfa.aer.ad 12/10/19 12/22/19 Unknown Rx predniSONE [Deltasone] 20 mg PO BID #6 tab 12/10/19 12/22/19 Unknown Rx ALBUTEROL NEB's [Proventil 0.083% 2.5 mg IH QIDRT PRN #60 nebu 12/22/19 Unknown Rx NEBS] Albuterol Mdi (or & Nicu Only) 2 puff IH QID PRN #1 inhalation 12/22/19 Unknown Rx [ProAir HFA Inhaler] Aspirin EC [Halfprin EC] 81 mg PO QDAY #30 tablet.dr 12/22/19 Unknown Rx Montelukast (Nf) [Singulair (Nf)] 5 mg PO QPM #20 tab.chew 12/25/19 Unknown Rx Montelukast [Singulair] 10 mg PO QPM #30 tablet 12/25/19 Unknown Rx predniSONE [Deltasone] 50 mg PO QDAY #5 tab 12/25/19 Unknown Rx ED Physical Exam - General Limitations: No Limitations General appearance: alert, in no apparent distress - Head Head exam: Present: atraumatic, normocephalic - Eye Eye exam: Present: normal appearance, PERRL, EOMI Pupils: Present: normal accommodation - ENT ENT exam: Present: normal exam, normal orophraynx, mucous membranes moist, TM's normal bilaterally - Neck Neck exam: Present: normal inspection, full ROM - Respiratory Respiratory exam: Present: normal lung sounds bilaterally, wheezes, decreased breath sounds, prolonged expiratory. Absent: respiratory distress, rales, chest wall tenderness, accessory muscle use - Cardiovascular Cardiovascular Exam: Present: regular rate, normal rhythm. Absent: systolic murmur, diastolic murmur, rubs, gallop - GI/Abdominal GI/Abdominal exam: Present: soft, normal bowel sounds. Absent: distended, tenderness, guarding, rebound, hyperactive bowel sounds, organomegaly, mass, pulsatile mass - Rectal Rectal exam: Present: deferred - Extremities Exam Extremities exam: Present: normal inspection, full ROM, normal capillary refill - Back Exam Back exam: Present: normal inspection. Absent: CVA tenderness (R), CVA tenderness (L) - Neurological Exam Neurological exam: Present: alert, oriented X3 - Psychiatric Psychiatric exam: Present: normal affect, normal mood - Skin Skin exam: Present: warm, dry, intact, normal color. Absent: rash ED Course Vital Signs 12/24/19 12/24/19 12/24/19 22:11 23:06 23:42 Temperature 98.9 F Pulse Rate 108 H 98 H Pulse Rate [ 103 H Bilateral Throughout] Respiratory 22 20 Rate Respiratory 22 Rate [Bilateral Throughout] Blood Pressure 151/92 O2 Sat by Pulse 100 97 Oximetry - Consultations Consultation #1: 12/25/19 06:[address] Viera and Dr. Schear SHARIF score - Sharif Score Age > 65: (0) No Aspirin use within the Past 7 Days: (0) No 3 or more CAD Risk Factors: (1) Yes 2 or more Angina events in past 24 hrs: (0) No Known CAD with more than 50% Stenosis: (0) No Elevated Cardiac Markers: (0) No ST Deviation Greater than 0.5mm: (0) No SHARIF Score: 1 ED Medical Decision Making - Lab Data Result diagrams: 12/25/19 00:40 12/25/19 00:40 - EKG Data EKG shows normal: sinus rhythm Rate: normal - EKG Data When compared to previous EKG there are: no significant change Interpretation: no acute changes - Radiology Data Radiology results: report reviewed Referring Physician:KAREEN VELASCOPatient Name:NAVARRO Sandovaltient ID:[id number] of :[id number]:MaleAccession:[id number] Date:[id number] Status:[place] [address] XRay Report Signed Patient: NAVARRO YAN MR #: [id number] : 1955 Acct:[id number] Age/Sex: 64 / M ADM Date: 12/24/19 Loc: ED Attending Dr: Ordering Physician: PITER PENNINGTON Date of Service: 12/24/19 Procedure(s): XR chest routine 2V Accession Number(s): [id number] cc: PITER PENNINGTON Fluoro Time In Minutes: CHEST 2 VIEWS INDICATION / CLINICAL INFORMATION: Chest Pain. FINDINGS: SUPPORT DEVICES: None. HEART / MEDIASTINUM: No significant abnormality. LUNGS / PLEURA: No significant pulmonary or pleural abnormality. No pneumothorax. ADDITIONAL FINDINGS: No significant additional findings. IMPRESSION: 1. No acute findings. Signer Name: Cristi Triana MD Signed: 12/25/2019 12:19 AM Workstation Name: [id number] Transcribed By: BC Dictated By: Cristi Triana MD Electronically Authenticated By: Cristi Triana MD Signed Date/Time: 12/25/1918 DD/ TD/TT: - Medical Decision Making 64-year-old male with past medical history asthma, COPD, HIV who was recently seen in the emergency department to 2 to 3 days ago for similar symptoms presents complaining of chest pain shortness of breath and was found to have very similar symptoms as well has an elevated dimer. Labs also appear to support chronic renal insufficiency as well. He obtained a VQ scan on 10/14/2019 which was positive suggestive of emphysema which also showed the lack of change in eighth 3 months. When compared to the previous VQ scan. His symptoms are similar to today with similar laboratory findings and similar resolution with the utilization of steroids as well as bronchodilators so we will forego a repeat VQ scan at this point have the patient to follow-up with [facility] and also advised him to follow-up with pulmonology. Currently he is resting comfortably no acute distress states that he feels much better and is seeking to be discharged home. He admitted later to cocaine utilization prior to his arrival to the emergency department his troponins and cardiac findings have remained negative throughout this hospital visit. The emergency department evaluation has not identified any cause for suspicion that this chest pain has a cardiac etiology. Based on their history, EKG (which showed no evidence of infarction) and imaging, in addition to the patient's physical exam, I see no evidence at this time for a malignant etiology for the patient's chest pain. There is evidence for pulmonary embolus but given the prior history and findings on VQ scan unlikely, no evidence of acute myocardial infarction, pneumothorax, Boerhaeve syndrome, cardiac tamponade, thoracic artery dissection, or any other emergent cardiac, pulmonary or aortic pathology. Given the low pre-test probability for cardiac etiology of chest pain and the absence of any sign of ischemia or infarction, discharge for outpatient follow-up and further evaluation is reasonable. I have explained to the patient that even though a cardiac problem is very unlikely, follow-up and further testing is required to reduce further the already small uncertainty that exists. Other life-threatening diagnoses have been considered. The patient understands the need to return immediately if their symptoms worsen or they develop any new symptoms, and not to engage in any significant exertional activity until follow-up is obtained. Critical care attestation.: If time is entered above; I have spent that time in minutes in the direct care of this critically ill patient, excluding procedure time. ED Disposition Clinical Impression: Cocaine use, Asthma with acute exacerbation, Chest pain Disposition: DC-01 TO HOME OR SELFCARE Is pt being admited?: No Does the pt Need Aspirin: No Condition: Stable Instructions: Chest Pain (ED), Asthma (ED) Additional Instructions: We have faxed information over to [facility] to arrange a follow-up for chest pain Prescriptions: predniSONE [Deltasone] 50 mg PO QDAY #5 tab Montelukast [Singulair] 10 mg PO QPM #30 tablet Montelukast (Nf) [Singulair (Nf)] 5 mg PO QPM #20 tab.chew Referrals: PRIMARY CARE,MD [Primary Care Provider] - 3-[address] [facility] [Provider Group] - 2-3 Days
[2019-12-25 05:29] LABS: Anisocytosis 1+; Band Neutrophils # (Manual) 0.1 K/mm3; Basophils % (Manual) 0 % (0.0-1.8); Platelet Estimate Consistent w Auto; Total Cells Counted 100
== END 2019-12-25 07:28 | disposition home or self-care (01) ==
LOC: ED 19:35
DX: J45.901 Unspecified asthma with (acute) exacerbation (principal); R07.89 Other chest pain; F14.10 Cocaine abuse, uncomplicated; I10 Essential (primary) hypertension; F17.200 Nicotine dependence, unspecified, uncomplicated; F12.10 Cannabis abuse, uncomplicated; Z21 Asymptomatic human immunodeficiency virus [HIV] infection status; Z86.711 Personal history of pulmonary embolism; Z79.899 Other long term (current) drug therapy
CPT/HCPCS: 36415; 71046; 80053; 84484; 85007; 85025; 85379; 93005; 94640; 94644

== ENCOUNTER 2019-12-26 13:04 | Emergency (ER) | payer MEDICARE ==
--- NOTE | 2019-12-26 13:06 | Emergency Department Report ---
Blank Doc - Documentation Documentation: 64-year-old male with cp and SOB. This initial assessment/diagnostic orders/clinical plan/treatment(s) is/are subject to change based on patient's health status, clinical progression and re- assessment by fellow clinical providers in the ED. Further treatment and workup at subsequent clinical providers discretion. Patient/guardians urged not to elope from the ED as their condition may be serious if not clinically assessed and managed. Initial orders include: 1- Patient sent to MAIN ED for further evaluation and treatment 2- cardiac workup
--- NOTE | 2019-12-26 13:36 | XRay Report ---
CHEST 2 VIEWS INDICATION / CLINICAL INFORMATION: Chest Pain. COMPARISON: 12/25/2019 FINDINGS: SUPPORT DEVICES: None. HEART / MEDIASTINUM: No significant abnormality. LUNGS / PLEURA: No significant pulmonary or pleural abnormality. No pneumothorax. ADDITIONAL FINDINGS: No significant additional findings. IMPRESSION: 1. No acute findings. No significant change from the prior study. Signer Name: Omega Mcintyre MD Signed: 12/26/2019 1:31 PM Workstation Name: [id number]
[2019-12-26 14:58] LABS: Hematocrit 31.3 % (35.5-45.6); Hemoglobin 9.7 gm/dl (11.8-15.2); Mean Corpuscular HGB Conc 31 % (32-34); Mean Corpuscular Volume 75 fl (84-94); Platelet Count 416 K/mm3 (140-440); Red Blood Count 4.17 M/mm3 (3.65-5.03)
[2019-12-26 15:01] LABS: Red Cell Distribution Width 27.3 % (13.2-15.2)
[2019-12-26 15:06] LABS: INR 1.01 (0.87-1.13)
[2019-12-26 15:07] LABS: Partial Thromboplastin Time 26.2 Sec. (24.2-36.6)
[2019-12-26 15:21] LABS: Alanine Aminotransferase 23 units/L (7-56); Albumin 3.3 g/dL (3.9-5); BUN/Creatinine Ratio 10; Blood Urea Nitrogen 17 mg/dL (9-20); Hemolysis Index 5
[2019-12-26 15:34] LABS: Anisocytosis 1+; Total Cells Counted 100
[2019-12-26] MEDS ORDERED: methylPREDNISolone Sod Succinate 125 MG/2 ML INJ IV ONE (20:32)
--- NOTE | 2019-12-26 20:32 | Emergency Department Report ---
ED Chest Pain HPI - General Chief Complaint: Chest Pain Stated Complaint: CHEST PAIN/RICKY Time Seen by Provider: 12/26/19 13:05 Source: patient Mode of arrival: Wheelchair Limitations: No Limitations - History of Present Illness Initial Comments: This is a 64-year-old male who presents to the emergency department with complaint of midsternal chest pain that has been going on since this morning. It is associated with some shortness of breath and a dry cough. He denies any fever, nausea, vomiting, back pain, diaphoresis. The patient was admitted here on 12/15 for similar symptoms. He was also seen in the emergency department on 12/21 and yesterday for similar symptoms as well. He has a past medical history that includes HIV, COPD not oxygen dependent, asthma, hyperlipidemia, hypertension, tobacco and cocaine abuse, and a previous PE. Patient had a ventilation/perfusion scan done 3 days ago that appeared consistent with his emphysema/COPD. There was a left heart cath done on 09/15/2019 that showed mild nonobstructive coronary artery disease. He had a negative stress test on 08/24/2019. No recent travel or sick contacts at home. The patient did not take anything for his symptoms prior to presentation. Severity scale (0 -10): 0 - Related Data Previous Rx's Medication Instructions Recorded Last Taken Type AtorvaSTATin [Lipitor] 40 mg PO QHS #30 tab 11/19/19 Unknown Rx Famotidine [Pepcid] 20 mg PO BID #60 tablet 11/19/19 Unknown Rx Fluticasone/Vilanterol [Breo 1 each IH DAILY #1 blst.w.dev 11/19/19 Unknown Rx Ellipta 100-25 Mcg INH] Sennosides Tab [Senokot] 8.6 mg PO Q12HR #30 tablet 11/19/19 Unknown Rx amLODIPine 10 mg PO QDAY #30 tablet 11/19/19 Unknown Rx Acetaminophen [Acetaminophen TAB] 650 mg PO Q4H PRN tablet 11/20/19 Unknown Rx Aspirin EC [Halfprin EC] 81 mg PO QDAY tablet 11/20/19 Unknown Rx AtorvaSTATin [Lipitor] 40 mg PO QHS #30 tablet 11/20/19 Unknown Rx Famotidine [Pepcid] 20 mg PO DAILY #14 tablet 11/20/19 Unknown Rx Ipratropium/Albuterol Sulfate 1 ampul IH TIDRT #1 ampul.neb 11/20/19 Unknown Rx [DUONEB *Not for PRN Use*] amLODIPine 10 mg PO QDAY #30 tablet 11/20/19 Unknown Rx clonazePAM [KlonoPIN] 1 mg PO QHS #30 tablet 11/20/19 Unknown Rx oxyCODONE /ACETAMINOPHEN [Percocet 1 tab PO Q6H PRN #7 tablet 11/20/19 Unknown Rx 5/325 mg] Albuterol Mdi (or & Nicu Only) 2 puff IH QID PRN #1 inhalation 12/22/19 Unknown Rx [ProAir HFA Inhaler] Aspirin EC [Halfprin EC] 81 mg PO QDAY #30 tablet.dr 12/22/19 Unknown Rx Montelukast (Nf) [Singulair (Nf)] 5 mg PO QPM #20 tab.chew 12/25/19 Unknown Rx Montelukast [Singulair] 10 mg PO QPM #30 tablet 12/25/19 Unknown Rx predniSONE [Deltasone] 50 mg PO QDAY #5 tab 12/25/19 Unknown Rx ALBUTEROL NEB's [Proventil 0.083% 2.5 mg IH QIDRT PRN #60 nebu 12/26/19 Unknown Rx NEBS] Albuterol Sulfate [Proventil Hfa] 2 puff IH Q4HR PRN #1 hfa.aer.ad 12/26/19 Unknown Rx predniSONE [Deltasone] 20 mg PO BID #6 tab 12/26/19 Unknown Rx Allergies Allergy/AdvReac Type Severity Reaction Status Date / Time No Known Allergies Allergy Verified 10/01/19 18:34 Heart Score - HEART Score History: Slightly suspicious EKG: Normal Age: 45-65 Risk factors: > 3 risk factors or hx of atherosclerotic disease Troponin: < normal limit HEART Score: 3 - Critical Actions Critical Actions: 0-3 pts:0.9-1.7%risk of adverse cardiac event.Candidate for discharge ED Review of Systems ROS: Stated complaint: CHEST PAIN/RICKY Other details as noted in HPI Comment: All other systems reviewed and negative Constitutional: denies: chills, fever Eyes: denies: eye pain, vision change ENT: denies: ear pain, throat pain Respiratory: cough, shortness of breath, wheezing Cardiovascular: chest pain. denies: edema Gastrointestinal: denies: abdominal pain, vomiting Genitourinary: denies: dysuria, discharge Musculoskeletal: denies: back pain, arthralgia Skin: denies: rash, lesions Neurological: denies: headache, weakness ED Past Medical Hx - Past Medical History Previous Medical History?: Yes Hx Hypertension: Yes Hx Congestive Heart Failure: No Hx Diabetes: No Hx Pulmonary Embolism: Yes Hx Asthma: Yes Hx COPD: Yes Hx HIV: Yes (unknown CD4 count) Additional medical history: Elevated Cholesterol & Chronic back pain. - Social History Smoking Status: Never Smoker Substance Use Type: None - Medications Home Medications: Home Medications Medication Instructions Recorded Confirmed Last Taken Type AtorvaSTATin [Lipitor] 40 mg PO QHS #30 tab 11/19/19 12/22/19 Unknown Rx Famotidine [Pepcid] 20 mg PO BID #60 tablet 11/19/19 12/22/19 Unknown Rx Fluticasone/Vilanterol [Breo 1 each IH DAILY #1 blst.w.dev 11/19/19 12/22/19 Unknown Rx Ellipta 100-25 Mcg INH] Sennosides Tab [Senokot] 8.6 mg PO Q12HR #30 tablet 11/19/19 12/22/19 Unknown Rx amLODIPine 10 mg PO QDAY #30 tablet 11/19/19 12/22/19 Unknown Rx Acetaminophen [Acetaminophen TAB] 650 mg PO Q4H PRN tablet 11/20/19 12/22/19 Unknown Rx Aspirin EC [Halfprin EC] 81 mg PO QDAY tablet 11/20/19 12/22/19 Unknown Rx AtorvaSTATin [Lipitor] 40 mg PO QHS #30 tablet 11/20/19 12/22/19 Unknown Rx Famotidine [Pepcid] 20 mg PO DAILY #14 tablet 11/20/19 12/22/19 Unknown Rx Ipratropium/Albuterol Sulfate 1 ampul IH TIDRT #1 ampul.neb 11/20/19 12/22/19 Unknown Rx [DUONEB *Not for PRN Use*] amLODIPine 10 mg PO QDAY #30 tablet 11/20/19 12/22/19 Unknown Rx clonazePAM [KlonoPIN] 1 mg PO QHS #30 tablet 11/20/19 12/22/19 Unknown Rx oxyCODONE /ACETAMINOPHEN [Percocet 1 tab PO Q6H PRN #7 tablet 11/20/19 12/22/19 Unknown Rx 5/325 mg] Albuterol Mdi (or & Nicu Only) 2 puff IH QID PRN #1 inhalation 12/22/19 Unknown Rx [ProAir HFA Inhaler] Aspirin EC [Halfprin EC] 81 mg PO QDAY #30 tablet.dr 12/22/19 Unknown Rx Montelukast (Nf) [Singulair (Nf)] 5 mg PO QPM #20 tab.chew 12/25/19 Unknown Rx Montelukast [Singulair] 10 mg PO QPM #30 tablet 12/25/19 Unknown Rx predniSONE [Deltasone] 50 mg PO QDAY #5 tab 12/25/19 Unknown Rx ALBUTEROL NEB's [Proventil 0.083% 2.5 mg IH QIDRT PRN #60 nebu 12/26/19 Unknown Rx NEBS] Albuterol Sulfate [Proventil Hfa] 2 puff IH Q4HR PRN #1 hfa.aer.ad 12/26/19 Unknown Rx predniSONE [Deltasone] 20 mg PO BID #6 tab 12/26/19 Unknown Rx ED Physical Exam - General Limitations: No Limitations - Other Other exam information: GENERAL: The patient is well-developed well-nourished. HENT: Normocephalic. Atraumatic. Patient has moist mucous membranes. EYES: Extraocular motions are intact. NECK: Supple. Trachea is midline. CHEST/LUNGS: Mild wheezing throughout the chest. No tachypnea accessory muscle use. There is no respiratory distress noted. Chest pain is reproducible to palpation of the chest wall. HEART/CARDIOVASCULAR: Regular. There is no tachycardia. There is no murmur. ABDOMEN: Abdomen is soft, nontender. Patient has normal bowel sounds. SKIN: Skin is warm and dry. NEURO: The patient is awake, alert, and oriented. The patient is cooperative. The patient has no focal neurologic deficits. Normal speech. MUSCULOSKELETAL: There is no tenderness or deformity. There is no limitation range of motion. ED Course Vital Signs 12/26/19 12/26/19 12/26/19 13:40 18:57 20:38 Temperature 98.3 F 98.5 F Pulse Rate 94 H 125 H Pulse Rate [ Anterior Bilateral Throughout] Respiratory 24 32 H Rate Respiratory Rate [Anterior Bilateral Throughout] Blood Pressure 122/88 150/92 O2 Sat by Pulse 94 90 99 Oximetry 12/26/19 12/26/19 12/26/19 20:54 20:55 20:57 Temperature Pulse Rate 91 H 95 H Pulse Rate [ 94 H Anterior Bilateral Throughout] Respiratory 22 31 H Rate Respiratory 23 Rate [Anterior Bilateral Throughout] Blood Pressure O2 Sat by Pulse 100 100 Oximetry 12/26/19 12/26/19 12/26/19 21:00 21:15 21:31 Temperature Pulse Rate 93 H 96 H 96 H Pulse Rate [ Anterior Bilateral Throughout] Respiratory 22 28 H 20 Rate Respiratory Rate [Anterior Bilateral Throughout] Blood Pressure 143/89 152/86 96/63 O2 Sat by Pulse 100 100 100 Oximetry 12/26/19 12/26/19 12/26/19 21:45 22:00 22:15 Temperature Pulse Rate 97 H 92 H 120 H Pulse Rate [ Anterior Bilateral Throughout] Respiratory 33 H 28 H 49 H Rate Respiratory Rate [Anterior Bilateral Throughout] Blood Pressure 136/85 107/54 107/54 O2 Sat by Pulse 100 99 81 L Oximetry 12/26/19 12/26/19 12/26/19 22:30 22:45 23:00 Temperature Pulse Rate 100 H 92 H 109 H Pulse Rate [ Anterior Bilateral Throughout] Respiratory 41 H 28 H 39 H Rate Respiratory Rate [Anterior Bilateral Throughout] Blood Pressure 153/87 128/80 146/89 O2 Sat by Pulse 91 99 93 Oximetry 12/26/19 12/26/19 12/26/19 23:15 23:30 23:45 Temperature Pulse Rate 99 H 79 73 Pulse Rate [ Anterior Bilateral Throughout] Respiratory 32 H 32 H 25 H Rate Respiratory Rate [Anterior Bilateral Throughout] Blood Pressure 146/89 117/64 100/52 O2 Sat by Pulse 94 97 99 Oximetry 12/27/19 12/27/19 12/27/19 00:00 00:02 00:15 Temperature Pulse Rate 88 93 H Pulse Rate [ 96 H Anterior Bilateral Throughout] Respiratory 22 15 Rate Respiratory 23 Rate [Anterior Bilateral Throughout] Blood Pressure 106/70 106/70 O2 Sat by Pulse 100 100 Oximetry 12/27/19 12/27/19 12/27/19 00:30 00:45 00:50 Temperature Pulse Rate 103 H 85 Pulse Rate [ Anterior Bilateral Throughout] Respiratory 18 20 Rate Respiratory Rate [Anterior Bilateral Throughout] Blood Pressure 115/78 115/78 O2 Sat by Pulse 99 95 Oximetry - Reevaluation(s) Reevaluation #1: 12/27/19 01:24 Lab Results 12/26/19 12/26/19 12/26/19 Range/Units 14:45 14:45 14:45 WBC 6.3 (4.5-11.0) K/mm3 RBC 4.17 (3.65-5.03) M/mm3 Hgb 9.7 L (11.8-15.2) gm/dl Hct 31.3 L (35.5-45.6) % MCV 75 L (84-94) fl MCH 23 L (28-32) pg MCHC 31 L (32-34) % RDW 27.3 H (13.2-15.2) % Plt Count 416 (140-440) K/mm3 [place] % (Auto) Transfer And Line Up Worker Add Manual Diff Complete Total Counted 100 Seg Neuts % (Manual) 69.0 (40.0-70.0) % Band Neutrophils % 0 % Lymphocytes % (Manual) 10.0 L (13.4-35.0) % Reactive Lymphs % (Man) 0 % Monocytes % (Manual) 17.0 H (0.0-7.3) % Eosinophils % (Manual) 2.0 (0.0-4.3) % Basophils % (Manual) 2.0 H (0.0-1.8) % Metamyelocytes % 0 % Myelocytes % 0 % Promyelocytes % 0 % Blast Cells % 0 % Nucleated RBC % Not Reportable Seg Neutrophils # Man 4.3 (1.8-7.7) K/mm3 Band Neutrophils # 0.0 K/mm3 Lymphocytes # (Manual) 0.6 L (1.2-5.4) K/mm3 Abs React Lymphs (Man) 0.0 K/mm3 Monocytes # (Manual) 1.1 H (0.0-0.8) K/mm3 Eosinophils # (Manual) 0.1 (0.0-0.4) K/mm3 Basophils # (Manual) 0.1 (0.0-0.1) K/mm3 Metamyelocytes # 0.0 K/mm3 Myelocytes # 0.0 K/mm3 Promyelocytes # 0.0 K/mm3 Blast Cells # 0.0 K/mm3 WBC Morphology Not Reportable Hypersegmented Neuts Not Reportable Hyposegmented Neuts Not Reportable Hypogranular Neuts Not Reportable Smudge Cells Not Reportable Toxic Granulation Not Reportable Toxic Vacuolation Not Reportable Dohle Bodies Not Reportable Pelger-Huet Anomaly Not Reportable Ruma Rods Not Reportable Platelet Estimate Not Reportable Clumped Platelets Not Reportable Plt Clumps, EDTA Not Reportable Large Platelets Not Reportable Giant Platelets Not Reportable Platelet Satelliting Not Reportable Plt Morphology Comment Not Reportable RBC Morphology Not Reportable Dimorphic RBCs Not Reportable Polychromasia Not Reportable Hypochromasia Not Reportable Poikilocytosis Not Reportable Anisocytosis 1+ Microcytosis Not Reportable Macrocytosis Not Reportable Spherocytes Not Reportable Pappenheimer Bodies Not Reportable Sickle Cells Not Reportable Target Cells Not Reportable Tear Drop Cells Not Reportable Ovalocytes Not Reportable Helmet Cells Not Reportable [place] Bodies Not Reportable [place] Rings Not Reportable [place] Cells Not Reportable Bite Cells Not Reportable Crenated Cell Not Reportable Elliptocytes Not Reportable Acanthocytes (Spur) Not Reportable Rouleaux Not Reportable Hemoglobin C Crystals Not Reportable Schistocytes Not Reportable Malaria parasites Not Reportable Ric Bodies Not Reportable Hem Pathologist Commnt No PT 13.5 (12.2-14.9) Sec. INR 1.01 (0.87-1.13) APTT 26.2 (24.2-36.6) Sec. Sodium 143 (137-145) mmol/L Potassium 4.1 (3.6-5.0) mmol/L Chloride 102.1 (98-107) mmol/L Carbon Dioxide 28 (22-30) mmol/L Anion Gap 17 mmol/L BUN 17 (9-20) mg/dL Creatinine 1.7 H (0.8-1.3) mg/dL Estimated GFR 41 ml/min BUN/Creatinine Ratio 10 % Glucose 110 H (75-100) mg/dL Calcium 7.0 L (8.4-10.2) mg/dL Total Bilirubin 0.30 (0.1-1.2) mg/dL AST 17 (5-40) units/L ALT 23 (7-56) units/L Alkaline Phosphatase 72 (35-129) units/L Troponin T < 0.010 (0.00-0.029) ng/mL Total Protein 7.4 (6.3-8.2) g/dL Albumin 3.3 L (3.9-5) g/dL Albumin/Globulin Ratio 0.8 % 12/26/19 Range/Units 17:55 WBC (4.5-11.0) K/mm3 RBC (3.65-5.03) M/mm3 Hgb (11.8-15.2) gm/dl Hct (35.5-45.6) % MCV (84-94) fl MCH (28-32) pg MCHC (32-34) % RDW (13.2-15.2) % Plt Count (140-440) K/mm3 [place] % (Auto) Add Manual Diff Total Counted Seg Neuts % (Manual) (40.0-70.0) % Band Neutrophils % % Lymphocytes % (Manual) (13.4-35.0) % Reactive Lymphs % (Man) % Monocytes % (Manual) (0.0-7.3) % Eosinophils % (Manual) (0.0-4.3) % Basophils % (Manual) (0.0-1.8) % Metamyelocytes % % Myelocytes % % Promyelocytes % % Blast Cells % % Nucleated RBC % Seg Neutrophils # Man (1.8-7.7) K/mm3 Band Neutrophils # K/mm3 Lymphocytes # (Manual) (1.2-5.4) K/mm3 Abs React Lymphs (Man) K/mm3 Monocytes # (Manual) (0.0-0.8) K/mm3 Eosinophils # (Manual) (0.0-0.4) K/mm3 Basophils # (Manual) (0.0-0.1) K/mm3 Metamyelocytes # K/mm3 Myelocytes # K/mm3 Promyelocytes # K/mm3 Blast Cells # K/mm3 WBC Morphology Hypersegmented Neuts Hyposegmented Neuts Hypogranular Neuts Smudge Cells Toxic Granulation Toxic Vacuolation Dohle Bodies Pelger-Huet Anomaly Ruma Rods Platelet Estimate Clumped Platelets Plt Clumps, EDTA Large Platelets Giant Platelets Platelet Satelliting Plt Morphology Comment RBC Morphology Dimorphic RBCs Polychromasia Hypochromasia Poikilocytosis Anisocytosis Microcytosis Macrocytosis Spherocytes Pappenheimer Bodies Sickle Cells Target Cells Tear Drop Cells Ovalocytes Helmet Cells David-[place] Bodies [place] Rings Don Cells Bite Cells Crenated Cell Elliptocytes Acanthocytes (Spur) Rouleaux Hemoglobin C Crystals Schistocytes Malaria parasites Ric Bodies Hem Pathologist Commnt PT (12.2-14.9) Sec. INR (0.87-1.13) APTT (24.2-36.6) Sec. Sodium (137-145) mmol/L Potassium (3.6-5.0) mmol/L Chloride (98-107) mmol/L Carbon Dioxide (22-30) mmol/L Anion Gap mmol/L BUN (9-20) mg/dL Creatinine (0.8-1.3) mg/dL Estimated GFR ml/min BUN/Creatinine Ratio % Glucose (75-100) mg/dL Calcium (8.4-10.2) mg/dL Total Bilirubin (0.1-1.2) mg/dL AST (5-40) units/L ALT (7-56) units/L Alkaline Phosphatase (35-129) units/L Troponin T < 0.010 (0.00-0.029) ng/mL Total Protein (6.3-8.2) g/dL Albumin (3.9-5) g/dL Albumin/Globulin Ratio % SHARIF score - Sharif Score Age > 65: (0) No Aspirin use within the Past 7 Days: (0) No 3 or more CAD Risk Factors: (1) Yes 2 or more Angina events in past 24 hrs: (0) No Known CAD with more than 50% Stenosis: (0) No Elevated Cardiac Markers: (0) No ST Deviation Greater than 0.5mm: (0) No SHARIF Score: 1 ED Medical Decision Making - Lab Data Result diagrams: 12/26/19 14:45 12/26/19 14:45 - EKG Data -: EKG Interpreted by Me EKG shows normal: sinus rhythm, axis, intervals, QRS complexes, ST-T waves Rate: normal - EKG Data When compared to previous EKG there are: no significant change Interpretation: unchanged when compared t (12/22/19) - Radiology Data Radiology results: image reviewed interpreted by me: Chest x-ray does not show any acute process. There are no pleural effusions, obvious pneumonia and there is no pneumothorax. No significant cardiomegaly. - Medical Decision Making This patient presents to the emergency department with complaint of midsternal chest pain and shortness of breath. He has been here multiple times for the same symptoms. EKG is normal without ST elevation [place], ischemia or dysrhythmia. Chest x-ray does not show any pneumonia, pleural effusions, pneumothorax, or any other acute process. The patient's labs have been unremarkable including CBC, metabolic panel, and negative troponins x2. The patient does have some renal insufficiency but this is consistent with previous visits. Patient was given 2 rounds of breathing treatments, Solu-Medrol, magnesium, IV fluid and upon reevaluation appears improved. Heart and lung sounds are normal to auscultation. The pain is reproducible to palpation of chest wall without crepitus or deformity. The patient had a left heart catheterization done a few months ago that showed mild nonobstructive coronary artery disease. For these reasons the patient appears safe for discharge home at this time. He has been given a prescription for albuterol inhaler and nebulizer treatments, as well as a course of steroids. His contact information has been sent over to the [facility], and someone from their office should be contacting him shortly for close outpatient follow-up. He has been instructed to return to the emergency department with any worsening of his symptoms or with any acute distress. Critical Care Time: No Critical care attestation.: If time is entered above; I have spent that time in minutes in the direct care of this critically ill patient, excluding procedure time. ED Disposition Clinical Impression: Atypical chest pain, COPD exacerbation, Tobacco use Anemia Qualifiers: Anemia type: unspecified type Qualified Code(s): D64.9 - Anemia, unspecified CKD (chronic kidney disease) Qualifiers: Chronic kidney disease stage: unspecified stage Qualified Code(s): N18.9 - Chronic kidney disease, unspecified Disposition: DC-01 TO HOME OR SELFCARE Is pt being admited?: No Condition: Stable Instructions: Chest Pain (ED), Costochondritis (ED), Chronic Obstructive Pulmonary Disease (ED) Additional Instructions: Please follow-up with a primary care physician in the next few days. Your contact information has been sent over to [facility], and someone from their office should be contacting you shortly for close outpatient follow-up. I am also giving you a referral for one of their cardiologists, Dr. Hernandez. Please quit smoking. Do not use any further cocaine or any other illicit drugs. Return to the emergency department with any worsening of your symptoms, new or concerning symptoms not addressed during this current emergency department visit, or with any acute distress. Prescriptions: predniSONE [Deltasone] 20 mg PO BID #6 tab Albuterol Sulfate [Proventil Hfa] 2 puff IH Q4HR PRN #1 hfa.aer.ad PRN Reason: Wheezing ALBUTEROL NEB's [Proventil 0.083% NEBS] 2.5 mg IH QIDRT PRN #60 nebu PRN Reason: Shortness Of Breath Referrals: PRIMARY CARE, [Primary Care Provider] - 2-3 Days FRANCIS HERNANDEZ MD [Staff Physician] - 2-3 Days Time of Disposition: 22:51
[2019-12-26] MEDS ORDERED: ALBUTEROL 2.5 MG/3 ML NEBU IH ONE ×2 (20:33→23:09)
[2019-12-26] MEDS ORDERED: IPRATROPIUM 0.02% NEBU 2.5 ML IH ONE (20:33)
[2019-12-26] MEDS ORDERED: SODIUM CHLORIDE 0.9% 1000 ML 1,000 ML IV ONE (20:33)
[2019-12-26] MEDS ORDERED: MAGNESIUM SULFATE 2 GM/50 ML BAG IV ONE (23:09)
[2019-12-27 00:43] VITALS: BP 115/78
== END 2019-12-27 01:00 | disposition home or self-care (01) ==
LOC: ED 13:04
DX: J44.9 Chronic obstructive pulmonary disease, unspecified (principal); D64.9 Anemia, unspecified; I12.9 Hypertensive chronic kidney disease with stage 1 through stage 4 chronic kidney disease, or unspecified chronic kidney disease; N18.9 Chronic kidney disease, unspecified; Z86.711 Personal history of pulmonary embolism; Z79.01 Long term (current) use of anticoagulants; Z72.0 Tobacco use; Z79.899 Other long term (current) drug therapy
CPT/HCPCS: 36415; 71046; 80053; 84484; 85007; 85025; 85610; 85730; 93005; 94640; 96361; 96365; 96375; 99285; J2930; J3475; J7030; 94644

== ENCOUNTER 2020-01-21 09:56 | Emergency (ER) | payer MEDICARE ==
[2020-01-21] MEDS ORDERED: ALBUTEROL 2.5 MG/3 ML NEBU IH ONE ×2 (11:43→14:04)
[2020-01-21] MEDS ORDERED: IPRATROPIUM 0.02% NEBU 2.5 ML IH ONE (11:43)
[2020-01-21] MEDS ORDERED: methylPREDNISolone Sod Succinate 125 MG/2 ML INJ IV ONE (11:43)
--- NOTE | 2020-01-21 12:06 | XRay Report ---
XR chest 1V ap INDICATION / CLINICAL INFORMATION: resp distress. COMPARISON: 01/04/2020. FINDINGS: SUPPORT DEVICES: None. HEART /PULMONARY VASCULATURE: No significant abnormality. LUNGS / PLEURA: There are mild diffuse increased interstitial markings bilaterally, unchanged from pr ior study. No focal airspace consolidation or pleural effusion. No pneumothorax. ADDITIONAL FINDINGS: No significant additional findings. IMPRESSION: Stable findings in the chest without acute cardiopulmonary abnormality. Signer Name: Mingo Alvarado MD Signed: 01/21/2020 12:02 PM Workstation Name: [id number]
[2020-01-21 12:42] VITALS: BP 145/79
[2020-01-21 13:09] LABS: Hematocrit 26.4 % (35.5-45.6); Hemoglobin 8.1 gm/dl (11.8-15.2); Mean Corpuscular HGB Conc 31 % (32-34); Mean Corpuscular Volume 74 fl (84-94); Platelet Count 309 K/mm3 (140-440); Red Blood Count 3.56 M/mm3 (3.65-5.03)
[2020-01-21 13:12] LABS: Red Cell Distribution Width 23.6 % (13.2-15.2)
[2020-01-21 13:25] LABS: Amphetamine Screen,Urine Negative; Benzodiazepines Screen,Urine Negative; Cannabinoid Screen,Urine Negative; Methadone Screen,Urine Negative; Opiate Screen,Urine Negative
[2020-01-21 13:30] LABS: Alanine Aminotransferase 21 units/L (7-56); Albumin 3.5 g/dL (3.9-5); BUN/Creatinine Ratio 14; Blood Urea Nitrogen 19 mg/dL (9-20); Calcium 7.7 mg/dL (8.4-10.2); Hemolysis Index 2
[2020-01-21] MEDS ORDERED: HYDROcodone/ACETAMINOPHEN 5-325 MG TAB PO ONE (13:49)
--- NOTE | 2020-01-21 13:55 | Emergency Department Report ---
ED Chest Pain HPI - General Chief Complaint: Dyspnea/Respdistress Stated Complaint: RICKY Time Seen by Provider: 01/21/20 11:42 Source: patient Mode of arrival: Ambulatory Limitations: No Limitations - History of Present Illness Initial Comments: Patient is a 64-year-old male with past medical history of COPD and cocaine abuse who is well-known to our department is coming in with chest pain and shortness of breath. Patient states symptoms been present throughout the day. He states he has not used cocaine in the last 2 weeks however the patient is known for denies use is testing positive for cocaine. He denies any nausea vomiting diarrhea or body aches or fever. Severity scale (0 -10): 0 - Related Data Previous Rx's Medication Instructions Recorded Last Taken Type Acetaminophen [Acetaminophen TAB] 650 mg PO Q4H PRN tablet 11/20/19 Unknown Rx Ipratropium/Albuterol Sulfate 1 ampul IH TIDRT #1 ampul.neb 11/20/19 Unknown Rx [DUONEB *Not for PRN Use*] clonazePAM [KlonoPIN] 1 mg PO QHS #30 tablet 11/20/19 Unknown Rx Albuterol Mdi (or & Nicu Only) 2 puff IH QID PRN #1 inhalation 01/07/20 Unknown Rx [ProAir HFA Inhaler] Aspirin EC [Halfprin EC] 81 mg PO QDAY #30 tablet. 01/07/20 Unknown Rx AtorvaSTATin [Lipitor] 40 mg PO QHS #30 tablet 01/07/20 Unknown Rx Montelukast (Nf) [Singulair] 5 mg PO QPM #20 tab.chew 01/07/20 Unknown Rx dilTIAZem CD [Cardizem CD] 120 mg PO QDAY #30 capsule 01/07/20 Unknown Rx oxyCODONE /ACETAMINOPHEN [Percocet 1 tab PO BID PRN #6 01/07/20 Unknown Rx 5/325 mg] predniSONE [Deltasone] 20 mg PO BID #6 tab 01/07/20 Unknown Rx Albuterol Mdi (or & Nicu Only) 2 puff IH QID PRN #1 inhalation 01/21/20 Unknown Rx [ProAir HFA Inhaler] Benzonatate [Tessalon Perles] 100 mg PO Q8HR #10 capsule 01/21/20 Unknown Rx DOXYCYCLINE Hyclate [Vibramycin 100 mg PO Q12HR #14 capsule 01/21/20 Unknown Rx CAP] HYDROcodone/APAP 5-325 [[place] 1 each PO Q6HR PRN #6 tablet 01/21/20 Unknown Rx 5/325] predniSONE [Deltasone] 20 mg PO QDAY #5 tab 01/21/20 Unknown Rx Allergies Allergy/AdvReac Type Severity Reaction Status Date / Time No Known Allergies Allergy Verified 01/21/20 10:26 Heart Score - HEART Score History: Slightly suspicious EKG: Normal Age: 45-65 Risk factors: 1-2 risk factors Troponin: < normal limit HEART Score: 2 ED Review of Systems ROS: Stated complaint: RICKY Other details as noted in HPI Comment: All other systems reviewed and negative ED Past Medical Hx - Past Medical History Hx Hypertension: Yes Hx Congestive Heart Failure: No Hx Diabetes: No Hx Pulmonary Embolism: Yes Hx Asthma: Yes Hx COPD: Yes Hx HIV: Yes Additional medical history: Elevated Cholesterol & Chronic back pain. - Social History Smoking Status: Current Some Day Smoker - Medications Home Medications: Home Medications Medication Instructions Recorded Confirmed Last Taken Type Acetaminophen [Acetaminophen TAB] 650 mg PO Q4H PRN tablet 11/20/19 01/05/20 Unknown Rx Ipratropium/Albuterol Sulfate 1 ampul IH TIDRT #1 ampul.neb 11/20/19 01/05/20 Unknown Rx [DUONEB *Not for PRN Use*] clonazePAM [KlonoPIN] 1 mg PO QHS #30 tablet 11/20/19 01/05/20 Unknown Rx Albuterol Mdi (or & Nicu Only) 2 puff IH QID PRN #1 inhalation 01/07/20 Unknown Rx [ProAir HFA Inhaler] Aspirin EC [Halfprin EC] 81 mg PO QDAY #30 tablet. 01/07/20 Unknown Rx AtorvaSTATin [Lipitor] 40 mg PO QHS #30 tablet 01/07/20 Unknown Rx Montelukast (Nf) [Singulair] 5 mg PO QPM #20 tab.chew 01/07/20 Unknown Rx dilTIAZem CD [Cardizem CD] 120 mg PO QDAY #30 capsule 01/07/20 Unknown Rx oxyCODONE /ACETAMINOPHEN [Percocet 1 tab PO BID PRN #6 01/07/20 Unknown Rx 5/325 mg] predniSONE [Deltasone] 20 mg PO BID #6 tab 01/07/20 Unknown Rx Albuterol Mdi (or & Nicu Only) 2 puff IH QID PRN #1 inhalation 01/21/20 Unknown Rx [ProAir HFA Inhaler] Benzonatate [Tessalon Perles] 100 mg PO Q8HR #10 capsule 01/21/20 Unknown Rx DOXYCYCLINE Hyclate [Vibramycin 100 mg PO Q12HR #14 capsule 01/21/20 Unknown Rx CAP] HYDROcodone/APAP 5-325 [[place] 1 each PO Q6HR PRN #6 tablet 01/21/20 Unknown Rx 5/325] predniSONE [Deltasone] 20 mg PO QDAY #5 tab 01/21/20 Unknown Rx ED Physical Exam - General Limitations: No Limitations General appearance: alert, in no apparent distress - Head Head exam: Present: atraumatic, normocephalic - Eye Eye exam: Present: normal appearance - ENT ENT exam: Present: mucous membranes moist - Neck Neck exam: Present: normal inspection - Respiratory Respiratory exam: Present: respiratory distress, wheezes. Absent: normal lung sounds bilaterally, rales, rhonchi, stridor - Cardiovascular Cardiovascular Exam: Present: regular rate, normal rhythm, normal heart sounds. Absent: systolic murmur, diastolic murmur, rubs, gallop - GI/Abdominal GI/Abdominal exam: Present: soft, normal bowel sounds. Absent: distended, tenderness, guarding - Rectal Rectal exam: Present: deferred - Extremities Exam Extremities exam: Present: normal inspection - Back Exam Back exam: Present: normal inspection - Neurological Exam Neurological exam: Present: alert, oriented X3 - Psychiatric Psychiatric exam: Present: normal affect, normal mood - Skin Skin exam: Present: warm, dry, intact, normal color. Absent: rash ED Course Vital Signs 01/21/20 01/21/20 01/21/20 10:29 11:46 12:00 Temperature 98.4 F Pulse Rate 85 88 84 Respiratory 20 38 H 13 Rate Blood Pressure 124/66 156/78 Blood Pressure [Left] O2 Sat by Pulse 95 96 94 Oximetry 01/21/20 01/21/20 01/21/20 12:16 12:30 12:40 Temperature Pulse Rate 111 H 81 84 Respiratory 14 32 H 30 H Rate Blood Pressure 141/77 136/85 Blood Pressure 145/79 [Left] O2 Sat by Pulse 81 L 96 93 Oximetry 01/21/20 01/21/20 12:45 13:00 Temperature Pulse Rate 83 81 Respiratory 14 21 Rate Blood Pressure 145/92 145/79 Blood Pressure [Left] O2 Sat by Pulse 97 100 Oximetry SHARIF score - Sharif Score Age > 65: (0) No Aspirin use within the Past 7 Days: (0) No 3 or more CAD Risk Factors: (1) Yes 2 or more Angina events in past 24 hrs: (0) No Known CAD with more than 50% Stenosis: (0) No Elevated Cardiac Markers: (0) No ST Deviation Greater than 0.5mm: (0) No SHARIF Score: 1 ED Medical Decision Making - Lab Data Result diagrams: 01/21/20 12:22 01/21/20 12:22 Lab Results 01/21/20 01/21/20 01/21/20 Range/Units 12:22 12:22 13:03 WBC 6.8 (4.5-11.0) K/mm3 RBC 3.56 L (3.65-5.03) M/mm3 Hgb 8.1 L (11.8-15.2) gm/dl Hct 26.4 L (35.5-45.6) % MCV 74 L (84-94) fl MCH 23 L (28-32) pg MCHC 31 L (32-34) % RDW 23.6 H (13.2-15.2) % Plt Count 309 (140-440) K/mm3 [place] % (Auto) Relay Technician Sodium 140 (137-145) mmol/L Potassium 4.4 (3.6-5.0) mmol/L Chloride 103.8 (98-107) mmol/L Carbon Dioxide 27 (22-30) mmol/L Anion Gap 14 mmol/L BUN 19 (9-20) mg/dL Creatinine 1.4 H (0.8-1.3) mg/dL Estimated GFR 51 ml/min BUN/Creatinine Ratio 14 % Glucose 93 (75-100) mg/dL Calcium 7.7 L (8.4-10.2) mg/dL Total Bilirubin 0.20 (0.1-1.2) mg/dL AST 17 (5-40) units/L ALT 21 (7-56) units/L Alkaline Phosphatase 92 (35-129) units/L Troponin T < 0.010 (0.00-0.029) ng/mL NT-Pro-B Natriuret Pep 169.4 (0-900) pg/mL Total Protein 7.7 (6.3-8.2) g/dL Albumin 3.5 L (3.9-5) g/dL Albumin/Globulin Ratio 0.8 % Urine Opiates Screen Negative Urine Methadone Screen Negative Ur Barbiturates Screen Negative Ur Phencyclidine Scrn Negative Ur Amphetamines Screen Negative U Benzodiazepines Scrn Negative U Marijuana (THC) Screen Negative - EKG Data -: EKG Interpreted by Me EKG shows normal: sinus rhythm, axis, intervals, QRS complexes, ST-T waves Rate: normal - EKG Data Interpretation: normal EKG - Radiology Data [facility] [address] [place] [address] XRay Report Signed Patient: NAVARRO YAN MR #: [id number] : 1955 Acct:[id number] Age/Sex: 64 / M ADM Date: 01/21/20 Loc: ED Attending Dr: Ordering Physician: DELMI GARDINER MD Date of Service: 01/21/20 Procedure(s): XR chest 1V ap Accession Number(s): [id number] cc: DELMI GARDINER MD Fluoro Time In Minutes: XR chest 1V ap INDICATION / CLINICAL INFORMATION: resp distress. COMPARISON: 01/04/2020. FINDINGS: SUPPORT DEVICES: None. HEART /PULMONARY VASCULATURE: No significant abnormality. LUNGS / PLEURA: There are mild diffuse increased interstitial markings channing aterally, unchanged from prior study. No focal airspace consolidation or pleural effusion. No pneu mothorax. ADDITIONAL FINDINGS: No significant additional findings. IMPRESSION: Stable findings in the chest without acute cardiopulmonary abnormality. Signer Name: Mingo Alvarado MD Signed: 01/21/2020 12:02 PM Workstation Name: [id number] - Medical Decision Making Patient is a 64-year-old male with a history of cocaine abuse who is here for shortness of breath. Patient was wheezing. Received hour-long neb treatment Decadron and did have improvement of his shortness of breath and is wheezing. Patient still states that he has some soreness in his chest. At the time of discharge patient cocaine level is still pending and was likely positiv e. Patient given 1 Vicodin for pain control can be discharged home. Critical care attestation.: If time is entered above; I have spent that time in minutes in the direct care of this critically ill patient, excluding procedure time. ED Disposition Clinical Impression: COPD exacerbation, Cocaine abuse, Atypical chest pain Disposition: TO HOME OR SELFCARE Is pt being admited?: No Does the pt Need Aspirin: No Condition: Stable Instructions: Chronic Obstructive Pulmonary Disease (ED), Chest Pain (ED), Nonspecific Chest Pain, Adult, Chronic Obstructive Pulmonary Disease, [id number] Referrals: PRIMARY CARE, [Primary Care Provider] - 3-5 Days Time of Disposition: 13:55
[2020-01-21] MEDS ORDERED: MAGNESIUM SULFATE 2 GM/50 ML BAG IV ONE (14:01)
[2020-01-21 14:04] LABS: Cocaine Screen,Urine PRESUMPTIVE POSITIVE
[2020-01-21 14:57] LABS: Hypochromasia 1+; Total Cells Counted 100
[2020-01-21 14:58] LABS: Anisocytosis 2+; Schistocytes Few
[2020-01-21 14:59] LABS: Platelet Estimate Consistent w Auto
== END 2020-01-21 15:38 ==
LOC: ED 09:56
DX: J44.9 Chronic obstructive pulmonary disease, unspecified (principal); F14.10 Cocaine abuse, uncomplicated; I10 Essential (primary) hypertension; E78.00 Pure hypercholesterolemia, unspecified; F17.200 Nicotine dependence, unspecified, uncomplicated; Z79.899 Other long term (current) drug therapy
CPT/HCPCS: 36415; 71045; 80053; 80307; 83880; 84484; 85007; 85025; 93005; 96365; 96375; 99285; J2930; J3475

== ENCOUNTER 2020-01-28 15:22 | Emergency (ER) | payer MEDICARE ==
--- NOTE | 2020-01-28 15:53 | Event Note ---
ED Screening Note Date of service: 01/28/20 Time: 15:52 ED Screening Note: Patient presents with complaints of chest pain and suicidal thoughts Denies plan This initial assessment/diagnostic orders/clinical plan/treatment(s) is/are subject to change based on patients health status, clinical progression and re- assessment by fellow clinical providers in the ED. Further treatment and workup at subsequent clinical providers discretion. Patient/guardian urged not to elope from the ED as their condition may be serious if not clinically assessed and managed. Initial orders include: Labs EKG Chest x-ray 1013
--- NOTE | 2020-01-28 16:16 | XRay Report ---
CHEST 2 VIEWS INDICATION: Chest Pain. COMPARISON: 01/21/2020 FINDINGS: Support devices: None. Heart: Within normal limits. Lungs/Pleura: No acute air space or interstitial disease. No significant pleural effusion. Mild und erlying COPD. IMPRESSION: No acute findings. Signer Name: Bobby Vela MD Signed: 01/28/2020 4:11 PM Workstation Name: [id number]
[2020-01-28 16:35] LABS: Hematocrit 28.7 % (35.5-45.6); Hemoglobin 8.9 gm/dl (11.8-15.2); Mean Corpuscular HGB Conc 31 % (32-34); Mean Corpuscular Volume 73 fl (84-94); Platelet Count 482 K/mm3 (140-440); Red Blood Count 3.93 M/mm3 (3.65-5.03)
[2020-01-28 16:36] LABS: Red Cell Distribution Width 22.4 % (13.2-15.2)
[2020-01-28 17:12] LABS: Alanine Aminotransferase 20 units/L (7-56); Albumin 3.9 g/dL (3.9-5); BUN/Creatinine Ratio 22; Blood Urea Nitrogen 38 mg/dL (9-20); Calcium 7.9 mg/dL (8.4-10.2); Hemolysis Index 4
[2020-01-28] MEDS ORDERED: SODIUM CHLORIDE 0.9% 1000 ML 1,000 ML IV ONE (17:32)
[2020-01-28] MEDS ORDERED: ALBUTEROL 2.5 MG/3 ML NEBU IH ONE (17:46)
[2020-01-28] MEDS ORDERED: predniSONE 20 MG TAB PO ONE (17:46)
[2020-01-28] MEDS ORDERED: IPRATROPIUM 0.02% NEBU 2.5 ML IH ONE (17:46)
--- NOTE | 2020-01-28 17:59 | Emergency Department Report ---
ED General Adult HPI - General Chief complaint: Chest Pain Stated complaint: SOB Time Seen by Provider: 01/28/20 15:46 Source: EMS Mode of arrival: Wheelchair Limitations: No Limitations - History of Present Illness Initial comments: Patient is a 64-year-old male well-known to our department who is presenting with shortness of breath and chest pain. Patient is here almost weekly throughout the last year. Patient states he has not gotten his last prescriptions out of the pharmacy. Does have COPD as well. Patient used a large amount of cocaine last night. At triage patient stated that he was suicidal and wanted to kill himself with cocaine. During my interaction the patient stated that he was not suicidal and stated "are you crazy? do you think I would hurt myself?". Patient may have wanted to get into a room quicker by stating that he was suicidal. - Related Data Previous Rx's Medication Instructions Recorded Last Taken Type Acetaminophen [Acetaminophen TAB] 650 mg PO Q4H PRN tablet 11/20/19 Unknown Rx Ipratropium/Albuterol Sulfate 1 ampul IH TIDRT #1 ampul.neb 11/20/19 Unknown Rx [DUONEB *Not for PRN Use*] clonazePAM [KlonoPIN] 1 mg PO QHS #30 tablet 11/20/19 Unknown Rx Albuterol Mdi (or & Nicu Only) 2 puff IH QID PRN #1 inhalation 01/07/20 Unknown Rx [ProAir HFA Inhaler] Aspirin EC [Halfprin EC] 81 mg PO QDAY #30 tablet. 01/07/20 Unknown Rx AtorvaSTATin [Lipitor] 40 mg PO QHS #30 tablet 01/07/20 Unknown Rx Montelukast (Nf) [Singulair] 5 mg PO QPM #20 tab.chew 01/07/20 Unknown Rx dilTIAZem CD [Cardizem CD] 120 mg PO QDAY #30 capsule 01/07/20 Unknown Rx oxyCODONE /ACETAMINOPHEN [Percocet 1 tab PO BID PRN #6 01/07/20 Unknown Rx 5/325 mg] predniSONE [Deltasone] 20 mg PO BID #6 tab 01/07/20 Unknown Rx Albuterol Mdi (or & Nicu Only) 2 puff IH QID PRN #1 inhalation 01/21/20 Unknown Rx [ProAir HFA Inhaler] Benzonatate [Tessalon Perles] 100 mg PO Q8HR #10 capsule 01/21/20 Unknown Rx DOXYCYCLINE Hyclate [Vibramycin 100 mg PO Q12HR #14 capsule 01/21/20 Unknown Rx CAP] HYDROcodone/APAP 5-325 [[place] 1 each PO Q6HR PRN #6 tablet 01/21/20 Unknown Rx 5/325] predniSONE [Deltasone] 20 mg PO QDAY #5 tab 01/21/20 Unknown Rx Albuterol Mdi (or & Nicu Only) 2 puff IH QID PRN #1 inhalation 01/28/20 Unknown Rx [ProAir HFA Inhaler] Allergies Allergy/AdvReac Type Severity Reaction Status Date / Time No Known Allergies Allergy Verified 01/28/20 15:32 ED Review of Systems ROS: Stated complaint: SOB Other details as noted in HPI Comment: All other systems reviewed and negative ED Past Medical Hx - Past Medical History Hx Hypertension: Yes Hx Congestive Heart Failure: No Hx Diabetes: No Hx Pulmonary Embolism: Yes Hx Asthma: Yes Hx COPD: Yes Hx HIV: Yes Additional medical history: Elevated Cholesterol & Chronic back pain. - Surgical History Past Surgical History?: No - Social History Smoking Status: Current Some Day Smoker Substance Use Type: Alcohol, Cocaine - Medications Home Medications: Home Medications Medication Instructions Recorded Confirmed Last Taken Type Acetaminophen [Acetaminophen TAB] 650 mg PO Q4H PRN tablet 11/20/19 01/05/20 Unknown Rx Ipratropium/Albuterol Sulfate 1 ampul IH TIDRT #1 ampul.neb 11/20/19 01/05/20 Unknown Rx [DUONEB *Not for PRN Use*] clonazePAM [KlonoPIN] 1 mg PO QHS #30 tablet 11/20/19 01/05/20 Unknown Rx Albuterol Mdi (or & Nicu Only) 2 puff IH QID PRN #1 inhalation 01/07/20 Unknown Rx [ProAir HFA Inhaler] Aspirin EC [Halfprin EC] 81 mg PO QDAY #30 tablet. 01/07/20 Unknown Rx AtorvaSTATin [Lipitor] 40 mg PO QHS #30 tablet 01/07/20 Unknown Rx Montelukast (Nf) [Singulair] 5 mg PO QPM #20 tab.chew 01/07/20 Unknown Rx dilTIAZem CD [Cardizem CD] 120 mg PO QDAY #30 capsule 01/07/20 Unknown Rx oxyCODONE /ACETAMINOPHEN [Percocet 1 tab PO BID PRN #6 01/07/20 Unknown Rx 5/325 mg] predniSONE [Deltasone] 20 mg PO BID #6 tab 01/07/20 Unknown Rx Albuterol Mdi (or & Nicu Only) 2 puff IH QID PRN #1 inhalation 01/21/20 Unknown Rx [ProAir HFA Inhaler] Benzonatate [Tessalon Perles] 100 mg PO Q8HR #10 capsule 01/21/20 Unknown Rx DOXYCYCLINE Hyclate [Vibramycin 100 mg PO Q12HR #14 capsule 01/21/20 Unknown Rx CAP] HYDROcodone/APAP 5-325 [[place] 1 each PO Q6HR PRN #6 tablet 01/21/20 Unknown Rx 5/325] predniSONE [Deltasone] 20 mg PO QDAY #5 tab 01/21/20 Unknown Rx Albuterol Mdi (or & Nicu Only) 2 puff IH QID PRN #1 inhalation 01/28/20 Unknown Rx [ProAir HFA Inhaler] ED Physical Exam - General Limitations: No Limitations General appearance: alert, in no apparent distress - Head Head exam: Present: atraumatic, normocephalic - Eye Eye exam: Present: normal appearance, PERRL, EOMI - ENT ENT exam: Present: mucous membranes moist - Neck Neck exam: Present: normal inspection - Respiratory Respiratory exam: Present: normal lung sounds bilaterally, prolonged expiratory. Absent: respiratory distress, wheezes, rales, rhonchi - Cardiovascular Cardiovascular Exam: Present: regular rate, normal rhythm. Absent: systolic murmur, diastolic murmur, rubs, gallop - GI/Abdominal GI/Abdominal exam: Present: soft, normal bowel sounds - Rectal Rectal exam: Present: deferred - Extremities Exam Extremities exam: Present: normal inspection - Back Exam Back exam: Present: normal inspection - Neurological Exam Neurological exam: Present: alert, oriented X3 - Psychiatric Psychiatric exam: Present: normal affect, normal mood - Skin Skin exam: Present: warm, dry, intact, normal color. Absent: rash ED Course Vital Signs 01/28/20 15:34 Temperature 98.2 F Pulse Rate 98 H Respiratory 16 Rate Blood Pressure 162/105 O2 Sat by Pulse 100 Oximetry ED Medical Decision Making - Lab Data Result diagrams: 01/28/20 15:54 01/28/20 15:54 Lab Results 01/28/20 01/28/20 01/28/20 Range/Units 15:54 15:54 15:54 WBC 7.7 (4.5-11.0) K/mm3 RBC 3.93 (3.65-5.03) M/mm3 Hgb 8.9 L (11.8-15.2) gm/dl Hct 28.7 L (35.5-45.6) % MCV 73 L (84-94) fl MCH 23 L (28-32) pg MCHC 31 L (32-34) % RDW 22.4 H (13.2-15.2) % Plt Count 482 H (140-440) K/mm3 Lymph % (Auto) Confidential Secretary [place] % (Auto) Confidential Secretary Eos % (Auto) Confidential Secretary Baso % (Auto) Confidential Secretary Lymph # (Auto) Confidential Secretary [place] # (Auto) Confidential Secretary Eos # (Auto) Confidential Secretary Baso # (Auto) Confidential Secretary Seg Neutrophils % Confidential Secretary Seg Neutrophils # Confidential Secretary Sodium 139 (137-145) mmol/L Potassium 4.1 (3.6-5.0) mmol/L Chloride 102.7 (98-107) mmol/L Carbon Dioxide 25 (22-30) mmol/L Anion Gap 15 mmol/L BUN 38 H (9-20) mg/dL Creatinine 1.7 H (0.8-1.3) mg/dL Estimated GFR 41 ml/min BUN/Creatinine Ratio 22 % Glucose 110 H (75-100) mg/dL Calcium 7.9 L (8.4-10.2) mg/dL Total Bilirubin 0.30 (0.1-1.2) mg/dL AST 18 (5-40) units/L ALT 20 (7-56) units/L Alkaline Phosphatase 88 (35-129) units/L Troponin T < 0.010 (0.00-0.029) ng/mL Total Protein 8.3 H (6.3-8.2) g/dL Albumin 3.9 (3.9-5) g/dL Albumin/Globulin Ratio 0.9 % Salicylates < 0.3 L (2.8-20.0) mg/dL Acetaminophen (10.0-30.0) ug/mL 01/28/20 Range/Units 15:54 WBC (4.5-11.0) K/mm3 RBC (3.65-5.03) M/mm3 Hgb (11.8-15.2) gm/dl Hct (35.5-45.6) % MCV (84-94) fl MCH (28-32) pg MCHC (32-34) % RDW (13.2-15.2) % Plt Count (140-440) K/mm3 Lymph % (Auto) [place] % (Auto) Eos % (Auto) Baso % (Auto) Lymph # (Auto) [place] # (Auto) Eos # (Auto) Baso # (Auto) Seg Neutrophils % Seg Neutrophils # Sodium (137-145) mmol/L Potassium (3.6-5.0) mmol/L Chloride (98-107) mmol/L Carbon Dioxide (22-30) mmol/L Anion Gap mmol/L BUN (9-20) mg/dL Creatinine (0.8-1.3) mg/dL Estimated GFR ml/min BUN/Creatinine Ratio % Glucose (75-100) mg/dL Calcium (8.4-10.2) mg/dL Total Bilirubin (0.1-1.2) mg/dL AST (5-40) units/L ALT (7-56) units/L Alkaline Phosphatase (35-129) units/L Troponin T (0.00-0.029) ng/mL Total Protein (6.3-8.2) g/dL Albumin (3.9-5) g/dL Albumin/Globulin Ratio % Salicylates (2.8-20.0) mg/dL Acetaminophen 5.0 L (10.0-30.0) ug/mL - EKG Data -: EKG Interpreted by Sc EKG shows normal: sinus rhythm, axis, intervals, QRS complexes, ST-T waves Rate: normal - EKG Data Interpretation: normal EKG - Radiology Data Fluoro Time In Minutes: CHEST 2 VIEWS INDICATION: Chest Pain. COMPARISON: 01/21/2020 FINDINGS: Support devices: None. Heart: Within normal limits. Lungs/Pleura: No acute air space or interstitial disease. No significant pleural effusion. Mild underlying COPD. IMPRESSION: No acute findings. Signer Name: Bobby Vela MD Signed: 01/28/2020 4:11 PM Workstation Name: [id number] Transcribed By: ES Dictated By: Bobby Vela MD Electronically Authenticated By: Bobby Vela MD Signed Date/Time: 01/28/20 1611 - Medical Decision Making Patient is a 64-year-old male who is presenting with chest pain shortness of breath. Patient is a chronic cocaine user and is often here stating he cannot breathe. O2 saturation was 95% and above today. Patient is not wheezing but did have a prolonged expiratory phase and was given a neb treatment. Do not believe the patient is suicidal at this time and likely said there is a triage for secondary gain. Patient will be discharged home and has been encouraged to get his prescriptions filled and take better care of himself. Also given the patient follow-up with substance abuse facilities. Critical care attestation.: If time is entered above; I have spent that time in minutes in the direct care of this critically ill patient, excluding procedure time. ED Disposition Clinical Impression: COPD exacerbation, Cocaine abuse Disposition: DC-01 TO HOME OR SELFCARE Is pt being admited?: No Does the pt Need Aspirin: No Condition: Stable Instructions: Chronic Obstructive Pulmonary Disease (ED) Referrals: PRIMARY CARE, [Primary Care Provider] - 3-5 Days Time of Disposition: 18:00
[2020-01-28 21:34] VITALS: BP 141/99
== END 2020-01-28 20:00 | disposition home or self-care (01) ==
LOC: ED 15:22
DX: J44.1 Chronic obstructive pulmonary disease with (acute) exacerbation (principal); F14.10 Cocaine abuse, uncomplicated; I10 Essential (primary) hypertension; F17.200 Nicotine dependence, unspecified, uncomplicated; Z21 Asymptomatic human immunodeficiency virus [HIV] infection status; Z79.899 Other long term (current) drug therapy
CPT/HCPCS: 36415; 71046; 80053; 84484; 85025; 93005; 94640; 99285; J7512; 80320; 94644; G0480

== ENCOUNTER 2020-02-18 03:27 | Emergency (ER) | payer MEDICARE ==
[2020-02-18] MEDS ORDERED: ASPIRIN 325 MG TAB PO ONE (05:10)
--- NOTE | 2020-02-18 06:00 | XRay Report ---
CHEST 1 VIEW INDICATION: Chest Pain. COMPARISON: 02/10/2020 FINDINGS: SUPPORT DEVICES: None. HEART: Within normal limits. LUNGS/PLEURA: Aside from a few scattered calcified granulomata, the lungs remain clear. ADDITIONAL FINDINGS: None. IMPRESSION: 1. No acute findings. Signer Name: Tanvir Khan MD Signed: 02/18/2020 5:55 AM Workstation Name: [id number]
[2020-02-18 06:45] LABS: BUN/Creatinine Ratio 19; Basophils % (Auto) 0.1 % (0.0-1.8); Blood Urea Nitrogen 21 mg/dL (9-20); Eosinophils # (Auto) 0.3 K/mm3 (0.0-0.4); Eosinophils % (Auto) 3.7 % (0.0-4.3); Hemoglobin 8.3 gm/dl (11.8-15.2); Hemolysis Index 0; Lymphocytes # (Auto) 0.9 K/mm3 (1.2-5.4); Lymphocytes % (Auto) 11.2 % (13.4-35.0); Mean Corpuscular HGB Conc 31 % (32-34); Mean Corpuscular Volume 70 fl (84-94); Monocytes % (Auto) 12.1 % (0.0-7.3); Platelet Count 376 K/mm3 (140-440); Red Blood Count 3.84 M/mm3 (3.65-5.03)
[2020-02-18 06:46] LABS: Red Cell Distribution Width 21.2 % (13.2-15.2)
--- NOTE | 2020-02-18 10:22 | Emergency Department Report ---
ED Chest Pain HPI - General Chief Complaint: Chest Pain Stated Complaint: DIFFICULTY BREATHING Time Seen by Provider: 02/18/20 10:09 Source: patient Mode of arrival: Stretcher Limitations: No Limitations - History of Present Illness Initial Comments: This is a 64-year-old male presents to the emergency department from home with complaint of some generalized chest discomfort and shortness of breath that has been going on since this morning. It is associated with a mixed dry and productive cough, but the patient denies any back pain, fever, lower extremity swelling, nausea, vomiting or diaphoresis. He has been using his albuterol inhaler and nebulizer at home without any relief. He has a past medical history of HIV, COPD not oxygen dependent, continued tobacco use, and the patient has been seen and admitted here multiple times in the past for recurrent respiratory failure. The patient had a cardiac catheterization done in August of this year that showed mild nonobstructive coronary artery disease. No recent travel or sick contacts at home. No known exposure to anyone with COVID-19. Severity scale (0 -10): 8 - Related Data Previous Rx's Medication Instructions Recorded Last Taken Type Acetaminophen [Acetaminophen TAB] 650 mg PO Q4H PRN tablet 11/20/19 Unknown Rx Ipratropium/Albuterol Sulfate 1 ampul IH TIDRT #1 ampul.neb 11/20/19 Unknown Rx [DUONEB *Not for PRN Use*] clonazePAM [KlonoPIN] 1 mg PO QHS #30 tablet 11/20/19 Unknown Rx Aspirin EC [Halfprin EC] 81 mg PO QDAY #30 tablet.dr 01/07/20 Unknown Rx AtorvaSTATin [Lipitor] 40 mg PO QHS #30 tablet 01/07/20 Unknown Rx Montelukast (Nf) [Singulair] 5 mg PO QPM #20 tab.chew 01/07/20 Unknown Rx dilTIAZem CD [Cardizem CD] 120 mg PO QDAY #30 capsule 01/07/20 Unknown Rx oxyCODONE /ACETAMINOPHEN [Percocet 1 tab PO BID PRN #6 01/07/20 Unknown Rx 5/325 mg] Albuterol Mdi (or & Nicu Only) 2 puff IH QID PRN #1 inhalation 01/21/20 Unknown Rx [ProAir HFA Inhaler] Benzonatate [Tessalon Perles] 100 mg PO Q8HR #10 capsule 01/21/20 Unknown Rx DOXYCYCLINE Hyclate [Vibramycin 100 mg PO Q12HR #14 capsule 01/21/20 Unknown Rx CAP] HYDROcodone/APAP 5-325 [[place] 1 each PO Q6HR PRN #6 tablet 01/21/20 Unknown Rx 5-325 mg TAB] Albuterol Mdi (or & Nicu Only) 2 puff IH QID PRN #1 inhalation 01/28/20 Unknown Rx [ProAir HFA Inhaler] Azithromycin [Zithromax Z-MYNOR] 250 mg PO DAILY #6 tablet 02/14/20 Unknown Rx predniSONE [Deltasone] 20 mg PO QDAY #5 tab 02/14/20 Unknown Rx ALBUTEROL NEB's [Proventil 0.083% 2.5 mg IH TID PRN #1 box 02/18/20 Unknown Rx NEBS] Albuterol Mdi (or & Nicu Only) 2 puff IH QID PRN #1 inhalation 02/18/20 Unknown Rx [ProAir HFA Inhaler] predniSONE [Deltasone] 20 mg PO BID #6 tab 02/18/20 Unknown Rx Allergies Allergy/AdvReac Type Severity Reaction Status Date / Time No Known Allergies Allergy Verified 01/28/20 15:32 Heart Score - HEART Score History: Slightly suspicious EKG: Normal Age: 45-65 Risk factors: > 3 risk factors or hx of atherosclerotic disease Troponin: < normal limit HEART Score: 3 - Critical Actions Critical Actions: 0-3 pts:0.9-1.7%risk of adverse cardiac event.Candidate for discharge ED Review of Systems ROS: Stated complaint: DIFFICULTY BREATHING Other details as noted in HPI Comment: All other systems reviewed and negative Constitutional: denies: chills, fever Eyes: denies: eye pain, vision change ENT: denies: ear pain, throat pain Respiratory: cough, shortness of breath Cardiovascular: chest pain. denies: edema Gastrointestinal: denies: abdominal pain, vomiting Genitourinary: denies: dysuria, discharge Musculoskeletal: denies: back pain, arthralgia Skin: denies: rash, lesions Neurological: denies: headache, weakness ED Past Medical Hx - Past Medical History Previous Medical History?: Yes Hx Hypertension: Yes Hx Congestive Heart Failure: No Hx Diabetes: No Hx Pulmonary Embolism: Yes Hx Asthma: Yes Hx COPD: Yes Hx HIV: Yes Additional medical history: Elevated Cholesterol & Chronic back pain. - Surgical History Past Surgical History?: No - Social History Smoking Status: Current Every Day Smoker - Medications Home Medications: Home Medications Medication Instructions Recorded Confirmed Last Taken Type Acetaminophen [Acetaminophen TAB] 650 mg PO Q4H PRN tablet 11/20/19 01/05/20 Unknown Rx Ipratropium/Albuterol Sulfate 1 ampul IH TIDRT #1 ampul.neb 11/20/19 01/05/20 Unknown Rx [DUONEB *Not for PRN Use*] clonazePAM [KlonoPIN] 1 mg PO QHS #30 tablet 11/20/19 01/05/20 Unknown Rx Aspirin EC [Halfprin EC] 81 mg PO QDAY #30 tablet.dr 01/07/20 Unknown Rx AtorvaSTATin [Lipitor] 40 mg PO QHS #30 tablet 01/07/20 Unknown Rx Montelukast (Nf) [Singulair] 5 mg PO QPM #20 tab.chew 01/07/20 Unknown Rx dilTIAZem CD [Cardizem CD] 120 mg PO QDAY #30 capsule 01/07/20 Unknown Rx oxyCODONE /ACETAMINOPHEN [Percocet 1 tab PO BID PRN #6 01/07/20 Unknown Rx 5/325 mg] Albuterol Mdi (or & Nicu Only) 2 puff IH QID PRN #1 inhalation 01/21/20 Unknown Rx [ProAir HFA Inhaler] Benzonatate [Tessalon Perles] 100 mg PO Q8HR #10 capsule 01/21/20 Unknown Rx DOXYCYCLINE Hyclate [Vibramycin 100 mg PO Q12HR #14 capsule 01/21/20 Unknown Rx CAP] HYDROcodone/APAP 5-325 [[place] 1 each PO Q6HR PRN #6 tablet 01/21/20 Unknown Rx 5-325 mg TAB] Albuterol Mdi (or & Nicu Only) 2 puff IH QID PRN #1 inhalation 01/28/20 Unknown Rx [ProAir HFA Inhaler] Azithromycin [Zithromax Z-MYNOR] 250 mg PO DAILY #6 tablet 02/14/20 Unknown Rx predniSONE [Deltasone] 20 mg PO QDAY #5 tab 02/14/20 Unknown Rx ALBUTEROL NEB's [Proventil 0.083% 2.5 mg IH TID PRN #1 box 02/18/20 Unknown Rx NEBS] Albuterol Mdi (or & Nicu Only) 2 puff IH QID PRN #1 inhalation 02/18/20 Unknown Rx [ProAir HFA Inhaler] predniSONE [Deltasone] 20 mg PO BID #6 tab 02/18/20 Unknown Rx ED Physical Exam - General Limitations: No Limitations - Other Other exam information: GENERAL: The patient is well-developed well-nourished. HENT: Normocephalic. Atraumatic. Patient has moist mucous membranes. EYES: Extraocular motions are intact. NECK: Supple. Trachea is midline. CHEST/LUNGS: Clear to auscultation. There is no respiratory distress noted. HEART/CARDIOVASCULAR: Regular. There is no tachycardia. There is no murmur. ABDOMEN: Abdomen is soft, nontender. Patient has normal bowel sounds. SKIN: Skin is warm and dry. NEURO: The patient is awake, alert, and oriented. The patient is cooperative. The patient has no focal neurologic deficits. Normal speech. MUSCULOSKELETAL: There is no tenderness or deformity. There is no limitation range of motion. ED Course Vital Signs 02/18/20 02/18/20 02/18/20 04:45 09:42 13:00 Temperature 98.0 F 98.4 F Pulse Rate 93 H 84 Respiratory 14 16 16 Rate Blood Pressure 152/86 Blood Pressure 147/92 [Left] O2 Sat by Pulse 99 97 Oximetry SHARIF score - Sharif Score Age > 65: (0) No Aspirin use within the Past 7 Days: (0) No 3 or more CAD Risk Factors: (1) Yes 2 or more Angina events in past 24 hrs: (1) Yes Known CAD with more than 50% Stenosis: (0) No Elevated Cardiac Markers: (0) No ST Deviation Greater than 0.5mm: (0) No SHARIF Score: 2 ED Medical Decision Making - Lab Data Result diagrams: 02/18/20 05:59 02/18/20 05:59 Lab Results 02/18/20 02/18/20 02/18/20 Range/Units 05:59 05:59 08:06 WBC 7.9 (4.5-11.0) K/mm3 RBC 3.84 (3.65-5.03) M/mm3 Hgb 8.3 L (11.8-15.2) gm/dl Hct 27.0 L (35.5-45.6) % MCV 70 L (84-94) fl MCH 22 L (28-32) pg MCHC 31 L (32-34) % RDW 21.2 H (13.2-15.2) % Plt Count 376 (140-440) K/mm3 Lymph % (Auto) 11.2 L (13.4-35.0) % [place] % (Auto) 12.1 H (0.0-7.3) % Eos % (Auto) 3.7 (0.0-4.3) % Baso % (Auto) 0.1 (0.0-1.8) % Lymph # (Auto) 0.9 L (1.2-5.4) K/mm3 [place] # (Auto) 1.0 H (0.0-0.8) K/mm3 Eos # (Auto) 0.3 (0.0-0.4) K/mm3 Baso # (Auto) 0.0 (0.0-0.1) K/mm3 Seg Neutrophils % 72.9 H (40.0-70.0) % Seg Neutrophils # 5.8 (1.8-7.7) K/mm3 Sodium 142 (137-145) mmol/L Potassium 3.6 (3.6-5.0) mmol/L Chloride 100.2 (98-107) mmol/L Carbon Dioxide 29 (22-30) mmol/L Anion Gap 16 mmol/L BUN 21 H (9-20) mg/dL Creatinine 1.1 (0.8-1.3) mg/dL Estimated GFR > 60 ml/min BUN/Creatinine Ratio 19 % Glucose 96 (75-100) mg/dL Calcium 7.0 L (8.4-10.2) mg/dL Troponin T < 0.010 < 0.010 (0.00-0.029) ng/mL 02/18/20 Range/Units 10:54 WBC (4.5-11.0) K/mm3 RBC (3.65-5.03) M/mm3 Hgb (11.8-15.2) gm/dl Hct (35.5-45.6) % MCV (84-94) fl MCH (28-32) pg MCHC (32-34) % RDW (13.2-15.2) % Plt Count (140-440) K/mm3 Lymph % (Auto) (13.4-35.0) % [place] % (Auto) (0.0-7.3) % Eos % (Auto) (0.0-4.3) % Baso % (Auto) (0.0-1.8) % Lymph # (Auto) (1.2-5.4) K/mm3 [place] # (Auto) (0.0-0.8) K/mm3 Eos # (Auto) (0.0-0.4) K/mm3 Baso # (Auto) (0.0-0.1) K/mm3 Seg Neutrophils % (40.0-70.0) % Seg Neutrophils # (1.8-7.7) K/mm3 Sodium (137-145) mmol/L Potassium (3.6-5.0) mmol/L Chloride (98-107) mmol/L Carbon Dioxide (22-30) mmol/L Anion Gap mmol/L BUN (9-20) mg/dL Creatinine (0.8-1.3) mg/dL Estimated GFR ml/min BUN/Creatinine Ratio % Glucose (75-100) mg/dL Calcium (8.4-10.2) mg/dL Troponin T < 0.010 (0.00-0.029) ng/mL - EKG Data -: EKG Interpreted by Me EKG shows normal: sinus rhythm, axis, intervals, QRS complexes, ST-T waves Rate: normal - EKG Data When compared to previous EKG there are: no significant change (02/11/20) Interpretation: normal EKG, unchanged when compared t - Radiology Data Radiology results: image reviewed interpreted by me: Chest x-ray does not show any acute process. There are no pleural effusions, obvious pneumonia and there is no pneumothorax. No significant cardiomegaly. - Medical Decision Making This patient presents to the emergency department with complaints of some generalized chest discomfort and shortness of breath. The patient's work-up was initiated prior to my shift starting today at 10 AM. The chest x-ray does not show any pneumonia, pleural effusions, pneumothorax, focal consolidation, or any other acute process. Patient's labs have been mostly unremarkable including CBC, metabolic panel and negative troponins x3. EKG did not have any morphology consistent with ST elevation myocardial infarction or any dysrhythmia and is unchanged from previous. Patient was given some steroids, a dose of Toradol, and a breathing treatment, and upon reevaluation says that he is feeling greatly improved. The patient is low on the heart and SHARIF score. The patient does not have any significant tachycardia, hypoxia, and does not have any risk factors noted for thromboembolic disease. The patient also had a heart cath d one in August of this year that showed nonobstructive disease. For all these reasons the patient will be discharged home at this time and has been given outpatient referrals for primary care and pulmonology. His contact information has also been sent over to the [facility] and someone from their office should be contacting him shortly for close outpatient follow-up as part of our [facility] low risk chest pain protocol. Critical Care Time: No Critical care attestation.: If time is entered above; I have spent that time in minutes in the direct care of this critically ill patient, excluding procedure time. ED Disposition Clinical Impression: COPD exacerbation Anemia Qualifiers: Anemia type: unspecified type Qualified Code(s): D64.9 - Anemia, unspecified Hypertension Qualifiers: Hypertension type: essential hypertension Qualified Code(s): I10 - Essential (primary) hypertension Disposition: DC- TO HOME OR SELFCARE Is pt being admited?: No Condition: Stable Instructions: Chronic Obstructive Pulmonary Disease Exacerbation, Tobacco Use Disorder, Hypertension, Adult, Chronic Obstructive Pulmonary Disease (ED), Hypertension (ED) Additional Instructions: Please follow-up with a primary care physician in the next few days. I have given you a referral for a local bottom precipitator operator, Dr. Vines. Please quit smoking. Take your medications as prescribed. Return to the emergency department with any worsening of your symptoms, new or concerning symptoms not addressed during this current emergency department visit, or with any acute distress. Prescriptions: predniSONE [Deltasone] 20 mg PO BID #6 tab Albuterol Mdi (or & Nicu Only) [ProAir HFA Inhaler] 2 puff IH QID PRN #1 inhalation PRN Reason: Shortness Of Breath ALBUTEROL NEB's [Proventil 0.083% NEBS] 2.5 mg IH TID PRN #1 box PRN Reason: Wheezing Referrals: PRIMARY CARE, [Primary Care Provider] - 3-5 Days ENRRIQUE VINES MD [Staff Physician] - 3-5 Days DAIN MILLER MD [Staff Physician] - 3-5 Days [facility] [Provider Group] - 3-5 Days Time of Disposition: 12:35
[2020-02-18] MEDS ORDERED: KETOROLAC 30 MG/1 ML INJ IM ONE (10:24)
[2020-02-18] MEDS ORDERED: ALBUTEROL 2.5 MG/3 ML NEBU IH ONE (10:24)
[2020-02-18] MEDS ORDERED: IPRATROPIUM 0.02% NEBU 2.5 ML IH ONE (10:24)
[2020-02-18] MEDS ORDERED: predniSONE 20 MG TAB PO ONE (10:24)
[2020-02-18 14:46] VITALS: BP 147/92
== END 2020-02-18 13:05 | disposition home or self-care (01) ==
LOC: ED 03:27
DX: J44.1 Chronic obstructive pulmonary disease with (acute) exacerbation (principal); D64.9 Anemia, unspecified; I10 Essential (primary) hypertension; F17.200 Nicotine dependence, unspecified, uncomplicated; Z21 Asymptomatic human immunodeficiency virus [HIV] infection status; Z79.899 Other long term (current) drug therapy
CPT/HCPCS: 36415; 71045; 80048; 84484; 85025; 93005; 94640; 96372; 99284; J1885; J7512

== ENCOUNTER 2020-03-13 15:46 | Emergency (ER) | payer MEDICARE ==
[2020-03-13] MEDS ORDERED: dexAMETHasone 20 MG/5 ML VIAL IV ONE (17:32)
[2020-03-13] MEDS ORDERED: ALBUTEROL 2.5 MG/3 ML NEBU IH ONE (17:32)
[2020-03-13] MEDS ORDERED: IPRATROPIUM 0.02% NEBU 2.5 ML IH ONE (17:32)
[2020-03-13] MEDS ORDERED: MAGNESIUM SULFATE 2 GM/50 ML BAG IV ONE (17:32)
--- NOTE | 2020-03-13 17:46 | Emergency Department Report ---
ED Shortness of Breath HPI - General Chief Complaint: Dyspnea/Respdistress Stated Complaint: DIFFICULTY BREATHING Time Seen by Provider: 03/13/20 16:21 Source: patient, EMS Mode of arrival: Wheelchair Limitations: No Limitations - History of Present Illness Initial Comments: Patient is a 64-year-old male who presents emergency room with complaints of sh ortness of breath that began this morning. He has associated chest tightness. He states it feels like his COPD. He states that he has been out of his nebulizer solution for 1 day and has not been able to do his nebulizer treatments. He does not have a rescue inhaler. He denies any cough, fever, vomiting, diarrhea. He denies any leg swelling. He denies any sick contacts or recent travel. He has a past medical history of HIV not on his medications, COPD, hypertension. No allergies to medications. - Related Data Previous Rx's Medication Instructions Recorded Last Taken Type Acetaminophen [Acetaminophen TAB] 650 mg PO Q4H PRN tablet 11/20/19 Unknown Rx Ipratropium/Albuterol Sulfate 1 ampul IH TIDRT #1 ampul.neb 11/20/19 Unknown Rx [DUONEB *Not for PRN Use*] clonazePAM [KlonoPIN] 1 mg PO QHS #30 tablet 11/20/19 Unknown Rx Aspirin EC [Halfprin EC] 81 mg PO QDAY #30 tablet.dr 01/07/20 Unknown Rx AtorvaSTATin [Lipitor] 40 mg PO QHS #30 tablet 01/07/20 Unknown Rx Montelukast (Nf) [Singulair] 5 mg PO QPM #20 tab.chew 01/07/20 Unknown Rx dilTIAZem CD [Cardizem CD] 120 mg PO QDAY #30 capsule 01/07/20 Unknown Rx oxyCODONE /ACETAMINOPHEN [Percocet 1 tab PO BID PRN #6 01/07/20 Unknown Rx 5/325 mg] Albuterol Mdi (or & Nicu Only) 2 puff IH QID PRN #1 inhalation 01/21/20 Unknown Rx [ProAir HFA Inhaler] Benzonatate [Tessalon Perles] 100 mg PO Q8HR #10 capsule 01/21/20 Unknown Rx DOXYCYCLINE Hyclate [Vibramycin 100 mg PO Q12HR #14 capsule 01/21/20 Unknown Rx CAP] HYDROcodone/APAP 5-325 [[place] 1 each PO Q6HR PRN #6 tablet 01/21/20 Unknown Rx 5-325 mg TAB] Albuterol Mdi (or & Nicu Only) 2 puff IH QID PRN #1 inhalation 01/28/20 Unknown Rx [ProAir HFA Inhaler] Azithromycin [Zithromax Z-MYNOR] 250 mg PO DAILY #6 tablet 02/14/20 Unknown Rx predniSONE [Deltasone] 20 mg PO QDAY #5 tab 02/14/20 Unknown Rx predniSONE [Deltasone] 20 mg PO BID #6 tab 02/18/20 Unknown Rx ALBUTEROL NEB's [Proventil 0.083% 2.5 mg IH TID PRN #1 box 03/13/20 Unknown Rx NEBS] Albuterol Mdi (or & Nicu Only) 2 puff IH QID PRN #1 inhalation 03/13/20 Unknown Rx [ProAir HFA Inhaler] predniSONE [Deltasone] 20 mg PO QDAY 9 Days #18 tab 03/13/20 Unknown Rx Allergies Allergy/AdvReac Type Severity Reaction Status Date / Time No Known Allergies Allergy Verified 01/28/20 15:32 ED Review of Systems ROS: Stated complaint: DIFFICULTY BREATHING Other details as noted in HPI Comment: All other systems reviewed and negative ED Past Medical Hx - Past Medical History Previous Medical History?: Yes Hx Hypertension: Yes Hx Congestive Heart Failure: No Hx Diabetes: No Hx Pulmonary Embolism: Yes Hx Asthma: Yes Hx COPD: Yes Hx HIV: Yes Additional medical history: Elevated Cholesterol & Chronic back pain. - Social History Smoking Status: Never Smoker Substance Use Type: None - Medications Home Medications: Home Medications Medication Instructions Recorded Confirmed Last Taken Type Acetaminophen [Acetaminophen TAB] 650 mg PO Q4H PRN tablet 11/20/19 01/05/20 Unknown Rx Ipratropium/Albuterol Sulfate 1 ampul IH TIDRT #1 ampul.neb 11/20/19 01/05/20 Unknown Rx [DUONEB *Not for PRN Use*] clonazePAM [KlonoPIN] 1 mg PO QHS #30 tablet 11/20/19 01/05/20 Unknown Rx Aspirin EC [Halfprin EC] 81 mg PO QDAY #30 tablet. 01/07/20 Unknown Rx AtorvaSTATin [Lipitor] 40 mg PO QHS #30 tablet 01/07/20 Unknown Rx Montelukast (Nf) [Singulair] 5 mg PO QPM #20 tab.chew 01/07/20 Unknown Rx dilTIAZem CD [Cardizem CD] 120 mg PO QDAY #30 capsule 01/07/20 Unknown Rx oxyCODONE /ACETAMINOPHEN [Percocet 1 tab PO BID PRN #6 01/07/20 Unknown Rx 5/325 mg] Albuterol Mdi (or & Nicu Only) 2 puff IH QID PRN #1 inhalation 01/21/20 Unknown Rx [ProAir HFA Inhaler] Benzonatate [Tessalon Perles] 100 mg PO Q8HR #10 capsule 01/21/20 Unknown Rx DOXYCYCLINE Hyclate [Vibramycin 100 mg PO Q12HR #14 capsule 01/21/20 Unknown Rx CAP] HYDROcodone/APAP 5-325 [[place] 1 each PO Q6HR PRN #6 tablet 01/21/20 Unknown Rx 5-325 mg TAB] Albuterol Mdi (or & Nicu Only) 2 puff IH QID PRN #1 inhalation 01/28/20 Unknown Rx [ProAir HFA Inhaler] Azithromycin [Zithromax Z-MYNOR] 250 mg PO DAILY #6 tablet 02/14/20 Unknown Rx predniSONE [Deltasone] 20 mg PO QDAY #5 tab 02/14/20 Unknown Rx predniSONE [Deltasone] 20 mg PO BID #6 tab 02/18/20 Unknown Rx ALBUTEROL NEB's [Proventil 0.083% 2.5 mg IH TID PRN #1 box 03/13/20 Unknown Rx NEBS] Albuterol Mdi (or & Nicu Only) 2 puff IH QID PRN #1 inhalation 03/13/20 Unknown Rx [ProAir HFA Inhaler] predniSONE [Deltasone] 20 mg PO QDAY 9 Days #18 tab 03/13/20 Unknown Rx ED Physical Exam - General Limitations: No Limitations General appearance: alert, in no apparent distress - Head Head exam: Present: atraumatic, normocephalic - Eye Eye exam: Present: normal appearance - ENT ENT exam: Present: mucous membranes moist - Respiratory Respiratory exam: Present: wheezes (bilaterally), decreased breath sounds (bilaterally), prolonged expiratory. Absent: respiratory distress, rales, rhonchi, stridor, chest wall tenderness - Cardiovascular Cardiovascular Exam: Present: regular rate, normal rhythm, normal heart sounds. Absent: systolic murmur, diastolic murmur, rubs, gallop - Neurological Exam Neurological exam: Present: alert, oriented X3 - Psychiatric Psychiatric exam: Present: normal affect, normal mood - Skin Skin exam: Present: warm, dry, intact ED Course Vital Signs 03/13/20 03/13/20 03/13/20 16:49 20:55 21:50 Temperature 98.2 F 97.9 F Pulse Rate 92 H 106 H 95 H Respiratory 20 20 20 Rate Blood Pressure 148/83 Blood Pressure 150/93 [Right] O2 Sat by Pulse 99 92 94 Oximetry - Consultations Consultation #1: 03/13/20 21:[address] Marc Gaines, ER attending who advised to discharge patient home with outpatient follow-up ED Medical Decision Making - Lab Data Vital Signs 03/13/20 03/13/20 03/13/20 16:49 20:55 21:50 Temperature 98.2 F 97.9 F Pulse Rate 92 H 106 H 95 H Respiratory 20 20 20 Rate Blood Pressure 148/83 Blood Pressure 150/93 [Right] O2 Sat by Pulse 99 92 94 Oximetry - Radiology Data Radiology results: report reviewed Chest x-ray no acute findings - Medical Decision Making Patient is a 64-year-old male who presents emergency room with complaints of shortness of breath that began this morning. He has associated chest tightness. He states it feels like his COPD. He states that he has been out of his nebulizer solution for 1 day and has not been able to do his nebulizer treatments. He does not have a rescue inhaler. He denies any cough, fever, vomiting, diarrhea. He denies any leg swelling. He denies any sick contacts or recent travel. He has a past medical history of HIV not on his medications, COPD, hypertension. No allergies to medications. Vitals are stable. Oxygen saturation is 92% or greater on room air. During patient's last hospitalization, he was sent home with supplemental home oxygen but has not been using it. On initial exam he has wheezing and poor air movement and prolonged expiratory phase, patient given IV Decadron, IV magnesium, continuous neb treatment and wheezing has improved. Discussed patient with Dr. Marc Gaines, ER attending who advised to discharge patient home with outpatient follow-up. Examination appears consistent with acute on chronic COPD exacerbation, patient does not meet criteria for hospitalization at this time. Patient given prescription for his home medications and steroid taper. Advised patient Please use medication as prescribed. Please follow-up with your primary care doctor. Please follow-up with a trauma surgeon. Return to emergency room for any new or worsening symptoms. Also discussed with patient the importance of following up with her primary care doctor or his infectious disease doctor to get back on his medications, he verbalized understanding. Critical care attestation.: If time is entered above; I have spent that time in minutes in the direct care of this critically ill patient, excluding procedure time. ED Disposition Clinical Impression: COPD exacerbation Disposition: - TO HOME OR SELFCARE Is pt being admited?: No Does the pt Need Aspirin: No Condition: Stable Instructions: Chronic Obstructive Pulmonary Disease, [id number], Chronic Obstructive Pulmonary Disease (ED) Additional Instructions: Please use medication as prescribed. Please follow-up with your primary care doctor. Please follow-up with a trauma surgeon. Return to emergency room for any new or worsening symptoms. Prescriptions: predniSONE [Deltasone] 20 mg PO QDAY 9 Days #18 tab Albuterol Mdi (or & Nicu Only) [ProAir HFA Inhaler] 2 puff IH QID PRN #1 inhalation PRN Reason: Shortness Of Breath ALBUTEROL NEB's [Proventil 0.083% NEBS] 2.5 mg IH TID PRN #1 box PRN Reason: Wheezing Referrals: PRIMARY CARE, [Primary Care Provider] - 2-3 Days MEGAN IRAHETA MD [Staff Physician] - 2-3 Days Time of Disposition: 21:30 Print Language: SAMI
--- NOTE | 2020-03-13 18:07 | XRay Report ---
CHEST 2 VIEWS INDICATION / CLINICAL INFORMATION: SOB, hx of copd. COMPARISON: 02/18/2020 FINDINGS: SUPPORT DEVICES: None. HEART / MEDIASTINUM: No significant abnormality. LUNGS / PLEURA: Stable hyperexpansion and scattered calcified granulomata without acute abnormality. No pneumothorax. ADDITIONAL FINDINGS: No significant additional findings. IMPRESSION: 1. No acute findings. Signer Name: Omega Mcintyre MD Signed: 03/13/2020 6:02 PM Workstation Name: [id number]
[2020-03-13 20:56] VITALS: BP 150/93
== END 2020-03-13 21:52 | disposition home or self-care (01) ==
LOC: ED 15:46
DX: J44.1 Chronic obstructive pulmonary disease with (acute) exacerbation (principal); I10 Essential (primary) hypertension; Z21 Asymptomatic human immunodeficiency virus [HIV] infection status; Z79.2 Long term (current) use of antibiotics; Z79.899 Other long term (current) drug therapy
CPT/HCPCS: 71046; 94640; 96365; 96366; 96375; 99284; J1100; J3475

== ENCOUNTER 2020-03-22 13:24 | Inpatient (IN) | payer MEDICARE ==
--- NOTE | 2020-03-22 13:33 | Event Note ---
ED Screening Note ED Screening Note: copd home oxygen out of all meds co cp and sob covid test 2 w ago neg hx drug use non well appearing This initial assessment/diagnostic orders/clinical plan/treatment(s) is/are subject to change based on patients health status, clinical progression and re- assessment by fellow clinical providers in the ED. Further treatment and workup at subsequent clinical providers discretion. Patient/guardian urged not to elope from the ED as their condition may be serious if not clinically assessed and managed. Initial orders include: copd ae ro infection
--- NOTE | 2020-03-22 13:57 | XRay Report ---
CHEST 2 VIEWS INDICATION: Dyspnea. COMPARISON: 03/13/2020. FINDINGS: Support devices: None. Heart: Within normal limits. Lungs/Pleura: No acute air space or interstitial disease. Hyperexpansion of the lungs and changes of prior granulomatous exposure is stable. No significant pleural effusion. IMPRESSION: Stable chest. Signer Name: Bobby Vela MD Signed: 03/22/2020 1:53 PM Workstation Name: [id number]
[2020-03-22 15:04] LABS: Mean Corpuscular HGB Conc 30 % (32-34); Mean Corpuscular Volume 73 fl (84-94); Platelet Count 421 K/mm3 (140-440); Red Blood Count 4.66 M/mm3 (3.65-5.03)
[2020-03-22 15:09] LABS: Hematocrit 33.8 % (35.5-45.6); Hemoglobin 10.1 gm/dl (11.8-15.2); Red Cell Distribution Width 23.7 % (13.2-15.2)
[2020-03-22 15:28] LABS: Alanine Aminotransferase 32 units/L (7-56); Albumin 3.7 g/dL (3.9-5); BUN/Creatinine Ratio 32; Blood Urea Nitrogen 32 mg/dL (9-20); Calcium 6.9 mg/dL (8.4-10.2); Hemolysis Index 6
[2020-03-22 15:57] LABS: Anisocytosis 2+; Total Cells Counted 100
[2020-03-22 15:58] LABS: Hypochromasia 1+
[2020-03-22] MEDS ORDERED: IPRATROPIUM 0.02% NEBU 2.5 ML IH ONE (17:46)
[2020-03-22] MEDS ORDERED: ALBUTEROL 2.5 MG/3 ML NEBU IH ONE (17:46)
[2020-03-22] MEDS ORDERED: methylPREDNISolone Sod Succinate 125 MG/2 ML INJ IV ONE (17:46)
--- NOTE | 2020-03-22 17:52 | Emergency Department Report ---
ED Shortness of Breath HPI - General Chief Complaint: Dyspnea/Respdistress Stated Complaint: RICKY, CHEST PAIN Time Seen by Provider: 03/22/20 13:32 Source: patient, EMS Mode of arrival: Wheelchair Limitations: No Limitations - History of Present Illness Initial Comments: Patient is 64 years old male with history of COPD on 2 L of oxygen at home. Patient also has a history of HIV. Patient presented to the ER complaining of shortness of breath and difficulty breathing for the last 2 to 3 days. Patient stated that he is using his albuterol with no improvement. Patient denied any fever or chills. No chest pain. Patient also denied any nausea or vomiting. MD Complaint: shortness of breath, cough -: days(s) Known History Of: COPD - Related Data Previous Rx's Medication Instructions Recorded Last Taken Type Ipratropium/Albuterol Sulfate 1 ampul IH TIDRT #1 ampul.neb 11/20/19 Unknown Rx [DUONEB *Not for PRN Use*] clonazePAM [KlonoPIN] 1 mg PO QHS #30 tablet 11/20/19 Unknown Rx Aspirin EC [Halfprin EC] 81 mg PO QDAY #30 tablet.dr 01/07/20 Unknown Rx AtorvaSTATin [Lipitor] 40 mg PO QHS #30 tablet 01/07/20 Unknown Rx Montelukast (Nf) [Singulair] 5 mg PO QPM #20 tab.chew 01/07/20 Unknown Rx dilTIAZem CD [Cardizem CD] 120 mg PO QDAY #30 capsule 01/07/20 Unknown Rx Albuterol Mdi (or & Nicu Only) 2 puff IH QID PRN #1 inhalation 01/21/20 Unknown Rx [ProAir HFA Inhaler] ALBUTEROL NEB's [Proventil 0.083% 2.5 mg IH TID PRN #1 box 03/13/20 Unknown Rx NEBS] Allergies Allergy/AdvReac Type Severity Reaction Status Date / Time No Known Allergies Allergy Verified 01/28/20 15:32 ED Review of Systems ROS: Stated complaint: RICKY, CHEST PAIN Other details as noted in HPI Comment: All other systems reviewed and negative Constitutional: denies: chills, fever Respiratory: cough, orthopnea, shortness of breath, SOB with exertion, SOB at rest, wheezing Cardiovascular: denies: chest pain, palpitations Gastrointestinal: denies: abdominal pain, nausea, vomiting ED Past Medical Hx - Past Medical History Previous Medical History?: Yes Hx Hypertension: Yes Hx Congestive Heart Failure: No Hx Diabetes: No Hx Pulmonary Embolism: Yes Hx Asthma: Yes Hx COPD: Yes Hx HIV: Yes Additional medical history: Elevated Cholesterol & Chronic back pain. - Social History Smoking Status: Smoker, Current Status Unknown Substance Use Type: Cocaine, Other - Medications Home Medications: Home Medications Medication Instructions Recorded Confirmed Last Taken Type Ipratropium/Albuterol Sulfate 1 ampul IH TIDRT #1 ampul.neb 11/20/19 01/05/20 Unknown Rx [DUONEB *Not for PRN Use*] clonazePAM [KlonoPIN] 1 mg PO QHS #30 tablet 11/20/19 01/05/20 Unknown Rx Aspirin EC [Halfprin EC] 81 mg PO QDAY #30 tablet.dr 01/07/20 Unknown Rx AtorvaSTATin [Lipitor] 40 mg PO QHS #30 tablet 01/07/20 Unknown Rx Montelukast (Nf) [Singulair] 5 mg PO QPM #20 tab.chew 01/07/20 Unknown Rx dilTIAZem CD [Cardizem CD] 120 mg PO QDAY #30 capsule 01/07/20 Unknown Rx Albuterol Mdi (or & Nicu Only) 2 puff IH QID PRN #1 inhalation 01/21/20 Unknown Rx [ProAir HFA Inhaler] ALBUTEROL NEB's [Proventil 0.083% 2.5 mg IH TID PRN #1 box 03/13/20 Unknown Rx NEBS] ED Physical Exam - General Limitations: No Limitations General appearance: alert, in distress - Head Head exam: Present: atraumatic, normocephalic, normal inspection - Eye Eye exam: Present: normal appearance, PERRL - ENT ENT exam: Present: normal exam, normal orophraynx, mucous membranes moist - Neck Neck exam: Present: normal inspection, full ROM. Absent: tenderness, meningismus - Respiratory Respiratory exam: Present: respiratory distress, wheezes, rales, rhonchi, accessory muscle use, decreased breath sounds, prolonged expiratory - Cardiovascular Cardiovascular Exam: Present: regular rate, normal rhythm, normal heart sounds - GI/Abdominal GI/Abdominal exam: Present: soft, normal bowel sounds. Absent: distended, tenderness, guarding, rebound, rigid, organomegaly, mass, bruit, pulsatile mass, hernia - Extremities Exam Extremities exam: Present: normal inspection - Neurological Exam Neurological exam: Present: alert, oriented X3, CN II-XII intact - Psychiatric Psychiatric exam: Present: normal mood - Skin Skin exam: Present: warm, intact, normal color ED Course Vital Signs 03/22/20 13:27 Temperature 98.1 F Pulse Rate 76 Respiratory 22 Rate Blood Pressure 136/69 O2 Sat by Pulse 99 Oximetry ED Medical Decision Making - Lab Data Result diagrams: 03/22/20 14:42 03/22/20 14:42 - Radiology Data Radiology results: report reviewed - Medical Decision Making Patient is 64 years old male with history of COPD on 2 L of oxygen at home. Patient presented to the ER complaining of shortness of breath and difficulty breathing for the last 2 to 3 days. Patient stated that he is using his albuterol with no improvement. Patient denied any fever or chills. No chest pain. Patient also denied any nausea or vomiting. Patient received albuterol, Atrovent and Solu-Medrol. Chest x-ray showed no evidence of pneumonia however patient white blood cells of 17,000 indicating probably bronchitis with greenish sputum. I discussed the patient with , He agreed to admit the patient to medical service for further management. Critical Care Time: Yes Critical care time in (mins) excluding proc time.: 30 Critical care attestation.: If time is entered above; I have spent that time in minutes in the direct care of this critically ill patient, excluding procedure time. ED Disposition Clinical Impression: Asthma with acute exacerbation, COPD exacerbation Disposition: OP ADMIT IP TO THIS HOSP Is pt being admited?: Yes Condition: Stable Instructions: Chronic Obstructive Pulmonary Disease (ED) Referrals: PRIMARY CARE, [Primary Care Provider] - 3-5 Days
[2020-03-22] MEDS ORDERED: MAGNESIUM HYDROXIDE (MOM) ORAL LIQD UDC PO PRN (18:22)
[2020-03-22] MEDS ORDERED: ONDANSETRON 4 MG/2 ML INJ IV PRN (18:22)
--- NOTE | 2020-03-22 18:34 | History and Physical Report ---
History of Present Illness Date of examination: 03/22/20 Date of admission: 03/22/2020 Chief complaint: Shortness of Breath History of present illness: 64-year-old male with known history of hypertension, hyperlipidemia, COPD, HIV with unknown CD4 count presenting to the emergency room today complaining of shortness of breath and cough. This has been ongoing for about 2 to 3 days. Cough has been productive of some yellowish to greenish sputum. He denies any fever or chills, no chest pain, no headache or dizziness, no nausea or vomiting, no abdominal pain, no hematuria or dysuria. Patient denies any sick contacts and no recent travel. Denies any contact with anyone with COVID-19. Upon arrival in the emergency room patient was tachypneic and slightly tach ycardic. Work-up in the emergency room reveals elevated white count. His x-ray shows chronic changes. Patient admitted with COPD exacerbation with possible underlying bronchitis. Past History Past Medical History: COPD, hypertension, hyperlipidemia, pulmonary embolism, other (Chronic pain,HIV,) Past Surgical History: No surgical history Social history: smoking (Current daily smoker,), other (Cocaine abuse) Family history: no significant family history Medications and Allergies Allergies Allergy/AdvReac Type Severity Reaction Status Date / Time No Known Allergies Allergy Verified 01/28/20 15:32 Home Medications Medication Instructions Recorded Confirmed Last Taken Type Ipratropium/Albuterol Sulfate 1 ampul IH TIDRT #1 ampul.neb 11/20/19 01/05/20 Unknown Rx [DUONEB *Not for PRN Use*] clonazePAM [KlonoPIN] 1 mg PO QHS #30 tablet 11/20/19 01/05/20 Unknown Rx Aspirin EC [Halfprin EC] 81 mg PO QDAY #30 tablet.dr 01/07/20 Unknown Rx AtorvaSTATin [Lipitor] 40 mg PO QHS #30 tablet 01/07/20 Unknown Rx Montelukast (Nf) [Singulair] 5 mg PO QPM #20 tab.chew 01/07/20 Unknown Rx dilTIAZem CD [Cardizem CD] 120 mg PO QDAY #30 capsule 01/07/20 Unknown Rx Albuterol Mdi (or & Nicu Only) 2 puff IH QID PRN #1 inhalation 01/21/20 Unknown Rx [ProAir HFA Inhaler] ALBUTEROL NEB's [Proventil 0.083% 2.5 mg IH TID PRN #1 box 03/13/20 Unknown Rx NEBS] Active Meds: Active Medications Acetaminophen (Acetaminophen 325 Mg Tab) 650 mg PO Q4H PRN PRN Reason: Pain MILD(1-3)/Fever >100.5/KOENIG Levofloxacin/Dextrose (Levaquin 500mg/100ml) 500 mg in 100 mls @ 100 mls/hr IV ONCE ONE; Protocol Stop: 03/22/20 18:45 Last Admin: 03/22/20 18:04 Dose: 100 mls/hr Documented by: Levofloxacin/Dextrose (Levaquin 750mg/150ml) 750 mg in 150 mls @ 100 mls/hr IV Q24H NADIA; Protocol Magnesium Hydroxide (Magnesium Hydroxide (Mom) Oral Liqd Udc) 30 ml PO Q4H PRN PRN Reason: Constipation Methylprednisolone Sodium Succinate (Methylprednisolone Sod Succinate 40 Mg/1 Ml Inj) 40 mg IV Q8HR NADIA Morphine Sulfate (Morphine 2 Mg/1 Ml Inj) 2 mg IV Q4H PRN PRN Reason: Pain, Moderate (4-6) Ondansetron HCl (Ondansetron 4 Mg/2 Ml Inj) 4 mg IV Q8H PRN PRN Reason: Nausea And Vomiting Sodium Chloride (Sodium Chloride 0.9% 10 Ml Flush Syringe) 10 ml IV BID NADIA Sodium Chloride (Sodium Chloride 0.9% 10 Ml Flush Syringe) 10 ml IV PRN PRN PRN Reason: LINE FLUSH Review of Systems Constitutional: no fever, no chills Ears, nose, mouth and throat: no nasal congestion, no sore throat Cardiovascular: no chest pain, no palpitations Respiratory: cough, shortness of breath Gastrointestinal: no abdominal pain, no nausea, no vomiting, no diarrhea Genitourinary Male: no dysuria, no hematuria, no flank pain Musculoskeletal: no neck pain, no low back pain Integumentary: no rash, no pruritis Neurological: no headaches, no confusion Psychiatric: no anxiety, no depression Exam - Constitutional Vitals: Temp Pulse Resp BP Pulse Ox 98.1 F 92 H 22 157/92 100 03/22/20 13:27 03/22/20 18:16 03/22/20 18:16 03/22/20 17:48 03/22/20 17:48 General appearance: Present: no acute distress, well-nourished - EENT Eyes: Present: PERRL, EOM intact. Absent: scleral icterus ENT: hearing intact, clear oral mucosa, dentition normal - Neck Neck: Present: supple, normal ROM - Respiratory Respiratory effort: normal Respiratory: bilateral: diminished - Cardiovascular Rhythm: regular Heart Sounds: Present: S1 & S2. Absent: gallop, systolic murmur, diastolic murmur, rub - Extremities Extremities: no ischemia, pulses intact, pulses symmetrical, Full ROM Extremity abnormal: edema (Trace bilateral ankle edema) Peripheral Pulses: within normal limits - Abdominal General gastrointestinal: Present: soft, non-tender, non-distended, normal bowel sounds. Absent: mass - Integumentary Integumentary: Present: clear, warm, dry, normal turgor. Absent: rash - Musculoskeletal Musculoskeletal: strength equal bilaterally - Psychiatric Psychiatric: appropriate mood/affect, intact judgment & insight, memory intact, cooperative - Neurologic Neurologic: CNII-XII intact, no focal deficits, moves all extremities HEART Score - HEART Score Troponin: Troponin T < 0.010 ng/mL (0.00-0.029) 03/22/20 16:07 Results - Labs CBC & Chem 7: 03/22/20 14:42 03/22/20 14:42 Labs: Abnormal lab results 03/22/20 03/22/20 Range/Units 14:42 14:42 WBC 17.0 H (4.5-11.0) K/mm3 Hgb 10.1 L (11.8-15.2) gm/dl Hct 33.8 L (35.5-45.6) % MCV 73 L (84-94) fl MCH 22 L (28-32) pg MCHC 30 L (32-34) % RDW 23.7 H (13.2-15.2) % Seg Neuts % (Manual) 77.0 H (40.0-70.0) % Monocytes % (Manual) 8.0 H (0.0-7.3) % Seg Neutrophils # Man 13.1 H (1.8-7.7) K/mm3 Monocytes # (Manual) 1.4 H (0.0-0.8) K/mm3 Chloride 97.8 L (98-107) mmol/L Carbon Dioxide 38 H (22-30) mmol/L BUN 32 H (9-20) mg/dL Glucose 117 H (75-100) mg/dL Calcium 6.9 L (8.4-10.2) mg/dL Albumin 3.7 L (3.9-5) g/dL Assessment and Plan - Patient Problems (1) COPD exacerbation Current Visit: Yes Status: Acute Plan to address problem: Patient placed on nebulizing treatments and IV steroid. We will keep O2 saturation greater or equal to 94%. We will place consult to pulmonology for evaluation. (2) HIV (human immunodeficiency virus infection) Current Visit: No Status: Chronic Qualifiers: HIV symptom status: asymptomatic Plan to address problem: CD4 count unknown. Patient encouraged to follow-up with his infectious disease physician. (3) Hypertension Current Visit: No Status: Chronic Qualifiers: Hypertension type: essential hypertension Qualified Code(s): I10 - Ess ential (primary) hypertension Plan to address problem: We will resume routine home medications once reconciled and monitor vital signs closely. (4) DVT prophylaxis Current Visit: No Status: Acute Plan to address problem: Patient placed on subcutaneous Lovenox. (5) Full code status Current Visit: No Status: Acute Plan to address problem: Patient is a full code.
[2020-03-22] MEDS: MORPHINE 2 MG/1 ML INJ IV PRN (19:54)
[2020-03-22] MEDS: ENOXAPARIN 40 MG/0.4 ML INJ SUB-Q SCH (22:07)
[2020-03-22] MEDS: methylPREDNISolone Sod Succinate 40 MG/1 ML INJ IV SCH (22:07)
[2020-03-23] MEDS: methylPREDNISolone Sod Succinate 40 MG/1 ML INJ IV SCH ×3 (05:16→21:58)
[2020-03-23 06:12] LABS: BUN/Creatinine Ratio 32; Blood Urea Nitrogen 32 mg/dL (9-20); Calcium 6.4 mg/dL (8.4-10.2); Hemolysis Index 2
[2020-03-23 06:35] LABS: Hematocrit 27.4 % (35.5-45.6); Hemoglobin 8.6 gm/dl (11.8-15.2); Mean Corpuscular HGB Conc 31 % (32-34); Mean Corpuscular Volume 71 fl (84-94); Platelet Count 336 K/mm3 (140-440); Red Blood Count 3.85 M/mm3 (3.65-5.03)
[2020-03-23 06:42] LABS: Red Cell Distribution Width 23.5 % (13.2-15.2)
[2020-03-23 06:44] LABS: INR 1.13 (0.87-1.13)
[2020-03-23 08:06] LABS: Total Cells Counted 100
[2020-03-23 08:07] LABS: Anisocytosis 2+; Hypochromasia 2+; Ovalocytes 1+; Platelet Estimate Consistent w Auto; Poikilocytosis 1+; Tear Drop Cells Few
[2020-03-23] MEDS: MORPHINE 2 MG/1 ML INJ IV PRN ×3 (09:01→18:12)
[2020-03-23] MEDS: ACETAMINOPHEN 325 MG TAB PO PRN (10:54)
--- NOTE | 2020-03-23 14:28 | Consultation ---
History of Present Illness Consult date: 03/23/20 Requesting physician: RONA KINCAID Reason for consult: COPD (with acute exacerbation) History of present illness: PULMONARY/CCM CONSULT NOTE (Full dictation # [id number]) Please see dictated notes for full details Past History Past Medical History: COPD, hypertension, hyperlipidemia, pulmonary embolism, other (Chronic pain,HIV,) Past Surgical History: No surgical history Social history: smoking (Current daily smoker,), other (Cocaine abuse) Family history: no significant family history Medications and Allergies Allergies Allergy/AdvReac Type Severity Reaction Status Date / Time No Known Allergies Allergy Verified 01/28/20 15:32 Home Medications Medication Instructions Recorded Confirmed Last Taken Type Ipratropium/Albuterol Sulfate 1 ampul IH TIDRT #1 ampul.neb 11/20/19 01/05/20 Unknown Rx [DUONEB *Not for PRN Use*] clonazePAM [KlonoPIN] 1 mg PO QHS #30 tablet 11/20/19 01/05/20 Unknown Rx Aspirin EC [Halfprin EC] 81 mg PO QDAY #30 tablet.dr 01/07/20 Unknown Rx AtorvaSTATin [Lipitor] 40 mg PO QHS #30 tablet 01/07/20 Unknown Rx Montelukast (Nf) [Singulair] 5 mg PO QPM #20 tab.chew 01/07/20 Unknown Rx dilTIAZem CD [Cardizem CD] 120 mg PO QDAY #30 capsule 01/07/20 Unknown Rx Albuterol Mdi (or & Nicu Only) 2 puff IH QID PRN #1 inhalation 01/21/20 Unknown Rx [ProAir HFA Inhaler] ALBUTEROL NEB's [Proventil 0.083% 2.5 mg IH TID PRN #1 box 03/13/20 Unknown Rx NEBS] Active Meds: Active Medications Acetaminophen (Acetaminophen 325 Mg Tab) 650 mg PO Q4H PRN PRN Reason: Pain MILD(1-3)/Fever >100.5/KOENIG Last Admin: 03/23/20 10:54 Dose: 650 mg Documented by: Enoxaparin Sodium (Enoxaparin 40 Mg/0.4 Ml Inj) 40 mg SUB-Q QDAY@2200 NADIA; Protocol Last Admin: 03/22/20 22:07 Dose: 40 mg Documented by: Levofloxacin/Dextrose (Levaquin 750mg/150ml) 750 mg in 150 mls @ 100 mls/hr IV Q24H NADIA; Protocol Magnesium Hydroxide (Magnesium Hydroxide (Mom) Oral Liqd Udc) 30 ml PO Q4H PRN PRN Reason: Constipation Methylprednisolone Sodium Succinate (Methylprednisolone Sod Succinate 40 Mg/1 Ml Inj) 40 mg IV Q8HR NADIA Last Admin: 03/23/20 13:55 Dose: 40 mg Documented by: Morphine Sulfate (Morphine 2 Mg/1 Ml Inj) 2 mg IV Q4H PRN PRN Reason: Pain, Moderate (4-6) Last Admin: 03/23/20 13:55 Dose: 2 mg Documented by: Ondansetron HCl (Ondansetron 4 Mg/2 Ml Inj) 4 mg IV Q8H PRN PRN Reason: Nausea And Vomiting Sodium Chloride (Sodium Chloride 0.9% 10 Ml Flush Syringe) 10 ml IV BID NADIA Last Admin: 03/23/20 09:03 Dose: 10 ml Documented by: Sodium Chloride (Sodium Chloride 0.9% 10 Ml Flush Syringe) 10 ml IV PRN PRN PRN Reason: LINE FLUSH Physical Examination Vital signs: Vital Signs Temp Pulse Resp BP Pulse Ox 98.1 F 76 22 136/69 99 03/22/20 13:27 03/22/20 13:27 03/22/20 13:27 03/22/20 13:27 03/22/20 13:27 Results - Laboratory Findings CBC and BMP: 03/23/20 05:35 03/23/20 05:35 PT/INR, D-dimer PT 14.4 Sec. (12.2-14.9) 03/23/20 05:35 INR 1.13 (0.87-1.13) 03/23/20 05:35 Abnormal lab findings: Abnormal Labs 03/22/20 03/22/20 03/23/20 14:42 14:42 05:35 WBC 17.0 H Hgb 10.1 L 8.6 L Hct 33.8 L 27.4 L D MCV 73 L 71 L MCH 22 L 22 L MCHC 30 L 31 L RDW 23.7 H 23.5 H Seg Neuts % (Manual) 77.0 H 99.0 H Monocytes % (Manual) 8.0 H Seg Neutrophils # Man 13.1 H 8.6 H Lymphocytes # (Manual) 0.0 L Monocytes # (Manual) 1.4 H Chloride 97.8 L Carbon Dioxide 38 H BUN 32 H Glucose 117 H Calcium 6.9 L Albumin 3.7 L 03/23/20 05:35 WBC Hgb Hct MCV MCH MCHC RDW Seg Neuts % (Manual) Monocytes % (Manual) Seg Neutrophils # Man Lymphocytes # (Manual) Monocytes # (Manual) Chloride Carbon Dioxide 35 H BUN 32 H Glucose 229 H Calcium 6.4 L Albumin
[2020-03-23] MEDS: ALBUTEROL 2.5 MG/3 ML NEBU IH SCH ×2 (15:26→19:58)
--- NOTE | 2020-03-23 17:48 | Progress Note ---
Assessment and Plan Assessment and plan: 64-year-old male with past medical history as above who presents with acute dyspnea secondary to COPD exacerbation. Plan: Acute COPD exacerbation Pulmonology consulted Albuterol nebulizers and IV steroids Levaquin antibiotics HIV infection, chronic CD4 is unknown Patient follow-up with his infectious disease physician in the outpatient setting Hypertension We will start patient on amlodipine, patient's home medication Continue to monitor Chronic microcytic anemia Etiology unknown, possibly secondary to HIV infection Continue to monitor, consider iron supplementation. Steroid-induced hyperglycemia Continue to monitor Hypocalcemia Replete as needed CODE STATUS: Full DVT prophylaxis: Heparin History Interval history: 03/23/2020 patient seen and examined, continues to have shortness of breath, no fevers or chills. Hospitalist Physical - Physical exam Narrative exam: General appearance: Present: no acute distress, well-nourished - EENT Eyes: Present: PERRL, EOM intact ENT: hearing intact, clear oral mucosa - Respiratory Respiratory effort: normal Respiratory: bilateral: Bilateral wheezes and middle lung cano, no crackles or rhonchi heard - Cardiovascular Rhythm: regular Heart Sounds: Present: S1 & S2. Absent: rub, click - Extremities Extremities: no ischemia, No edema, normal temperature, normal color, Full ROM - Abdominal General gastrointestinal: soft, non-tender, non-distended, normal bowel sounds - Integumentary Integumentary: Present: clear, warm, dry, normal turgor - Neurologic Neurologic: CNII-XII intact, no focal deficits, moves all extremities - Constitutional Vitals: Temp Pulse Resp BP Pulse Ox 98.6 F 97 H 20 155/85 100 03/23/20 16:00 03/23/20 16:00 03/23/20 16:00 03/23/20 16:00 03/23/20 16:00 HEART Score - HEART Score Troponin: Troponin T < 0.010 ng/mL (0.00-0.029) 03/22/20 16:07 Results - Labs CBC & Chem 7: 03/23/20 05:35 03/23/20 05:35 Labs: Laboratory Last Values WBC 8.7 K/mm3 (4.5-11.0) 03/23/20 05:35 RBC 3.85 M/mm3 (3.65-5.03) 03/23/20 05:35 Hgb 8.6 gm/dl (11.8-15.2) L 03/23/20 05:35 Hct 27.4 % (35.5-45.6) L D 03/23/20 05:35 MCV 71 fl (84-94) L 03/23/20 05:35 MCH 22 pg (28-32) L 03/23/20 05:35 MCHC 31 % (32-34) L 03/23/20 05:35 RDW 23.5 % (13.2-15.2) H 03/23/20 05:35 Plt Count 336 K/mm3 (140-440) 03/23/20 05:35 Add Manual Diff Complete 03/23/20 05:35 Total Counted 100 03/23/20 05:35 Seg Neutrophils % Power Sweeper Operator 03/23/20 05:35 Seg Neuts % (Manual) 99.0 % (40.0-70.0) H 03/23/20 05:35 Lymphocytes % (Manual) 15.0 % (13.4-35.0) 03/22/20 14:42 Monocytes % (Manual) 1.0 % (0.0-7.3) 03/23/20 05:35 Nucleated RBC % Not Reportable 03/23/20 05:35 Seg Neutrophils # Man 8.6 K/mm3 (1.8-7.7) H 03/23/20 05:35 Band Neutrophils # 0.0 K/mm3 03/23/20 05:35 Lymphocytes # (Manual) 0.0 K/mm3 (1.2-5.4) L 03/23/20 05:35 Abs React Lymphs (Man) 0.0 K/mm3 03/23/20 05:35 Monocytes # (Manual) 0.1 K/mm3 (0.0-0.8) 03/23/20 05:35 Eosinophils # (Manual) 0.0 K/mm3 (0.0-0.4) 03/23/20 05:35 Basophils # (Manual) 0.0 K/mm3 (0.0-0.1) 03/23/20 05:35 Metamyelocytes # 0.0 K/mm3 03/23/20 05:35 Myelocytes # 0.0 K/mm3 03/23/20 05:35 Promyelocytes # 0.0 K/mm3 03/23/20 05:35 Blast Cells # 0.0 K/mm3 03/23/20 05:35 WBC Morphology Not Reportable 03/23/20 05:35 Hypersegmented Neuts Not Reportable 03/23/20 05:35 Hyposegmented Neuts Not Reportable 03/23/20 05:35 Hypogranular Neuts Not Reportable 03/23/20 05:35 Smudge Cells Not Reportable 03/23/20 05:35 Toxic Granulation Not Reportable 03/23/20 05:35 Toxic Vacuolation Not Reportable 03/23/20 05:35 Dohle Bodies Not Reportable 03/23/20 05:35 Pelger-Huet Anomaly Not Reportable 03/23/20 05:35 Ruma Rods Not Reportable 03/23/20 05:35 Platelet Estimate Consistent w auto 03/23/20 05:35 Clumped Platelets Not Reportable 03/23/20 05:35 Plt Clumps, EDTA Not Reportable 03/23/20 05:35 Large Platelets Not Reportable 03/23/20 05:35 Giant Platelets Not Reportable 03/23/20 05:35 Platelet Satelliting Not Reportable 03/23/20 05:35 Plt Morphology Comment Not Reportable 03/23/20 05:35 RBC Morphology Not Reportable 03/23/20 05:35 Dimorphic RBCs Not Reportable 03/23/20 05:35 Polychromasia Not Reportable 03/23/20 05:35 Hypochromasia 2+ 03/23/20 05:35 Poikilocytosis 1+ 03/23/20 05:35 Anisocytosis 2+ 03/23/20 05:35 Microcytosis Not Reportable 03/23/20 05:35 Macrocytosis Not Reportable 03/23/20 05:35 Spherocytes Not Reportable 03/23/20 05:35 Pappenheimer Bodies Not Reportable 03/23/20 05:35 Sickle Cells Not Reportable 03/23/20 05:35 Target Cells Not Reportable 03/23/20 05:35 Tear Drop Cells Few 03/23/20 05:35 Ovalocytes 1+ 03/23/20 05:35 Helmet Cells Not Reportable 03/23/20 05:35 [place] Bodies Not Reportable 03/23/20 05:35 [place] Rings Not Reportable 03/23/20 05:35 [place] Cells Not Reportable 03/23/20 05:35 Bite Cells Not Reportable 03/23/20 05:35 Crenated Cell Not Reportable 03/23/20 05:35 Elliptocytes Few 03/23/20 05:35 Acanthocytes (Spur) Not Reportable 03/23/20 05:35 Rouleaux Not Reportable 03/23/20 05:35 Hemoglobin C Crystals Not Reportable 03/23/20 05:35 Schistocytes Not Reportable 03/23/20 05:35 Malaria parasites Not Reportable 03/23/20 05:35 Ric Bodies Not Reportable 03/23/20 05:35 Hem Pathologist Commnt No 03/23/20 05:35 PT 14.4 Sec. (12.2-14.9) 03/23/20 05:35 INR 1.13 (0.87-1.13) 03/23/20 05:35 Sodium 144 mmol/L (137-145) 03/23/20 05:35 Potassium 4.1 mmol/L (3.6-5.0) 03/23/20 05:35 Chloride 99.1 mmol/L (98-107) 03/23/20 05:35 Carbon Dioxide 35 mmol/L (22-30) H 03/23/20 05:35 Anion Gap 14 mmol/L 03/23/20 05:35 BUN 32 mg/dL (9-20) H 03/23/20 05:35 Creatinine 1.0 mg/dL (0.8-1.3) 03/23/20 05:35 Estimated GFR > 60 ml/min 03/23/20 05:35 BUN/Creatinine Ratio 32 % 03/23/20 05:35 Glucose 229 mg/dL (75-100) H 03/23/20 05:35 Lactic Acid 1.50 mmol/L (0.7-2.0) 03/22/20 16:07 Calcium 6.4 mg/dL (8.4-10.2) L 03/23/20 05:35 Total Bilirubin 0.40 mg/dL (0.1-1.2) 03/22/20 14:42 AST 16 units/L (5-40) 03/22/20 14:42 ALT 32 units/L (7-56) 03/22/20 14:42 Alkaline Phosphatase 62 units/L (35-129) 03/22/20 14:42 Troponin T < 0.010 ng/mL (0.00-0.029) 03/22/20 16:07 Total Protein 7.0 g/dL (6.3-8.2) 03/22/20 14:42 Albumin 3.7 g/dL (3.9-5) L 03/22/20 14:42 Albumin/Globulin Ratio 1.1 % 03/22/20 14:42 Microbiology: Microbiology 03/22/20 18:07 Peripheral/Venous Blood Culture - Preliminary Culture in Progress 03/22/20 17:54 Peripheral/Venous Blood Culture - Preliminary Culture in Progress [place]/IV: Voiding Method Urinal IV Catheter Type [Left Hand] Peripheral IV IV Catheter Type [Right Hand] INT / Saline Lock Active Medications - Current Medications Current Medications: Generic Name Dose Route Start Last Admin Trade Name Freq PRN Reason Stop Dose Admin Acetaminophen 650 mg 03/22/20 18:22 03/23/20 10:54 Acetaminophen 325 Mg Tab PO 650 mg Q4H PRN Administration Pain MILD(1-3)/Fever >100.5/KOENIG Albuterol 2.5 mg 03/23/20 15:14 03/23/20 15:26 Albuterol 2.5 Mg/3 Ml Nebu IH 2.5 mg TIDRT NADIA Administration Amlodipine Besylate 10 mg 03/23/20 18:00 Amlodipine 10 Mg Tab PO QDAY NADIA Enoxaparin Sodium 40 mg 03/22/20 22:00 03/22/20 22:07 Enoxaparin 40 Mg/0.4 Ml Inj SUB-Q 40 mg QDAY@2200 NADIA Administration Protocol Ferrous Sulfate 325 mg 03/23/20 20:00 Ferrous Sulfate 325 Mg Tab PO TID NADIA Levofloxacin/Dextrose 750 mg in 150 mls @ 100 mls/hr 03/23/20 17:00 Levaquin 750mg/150ml IV Q24H [facility] Protocol Calcium Gluconate 1,000 mg/ 110 mls @ 660 mls/hr 03/23/20 17:42 Sodium Chloride IV 03/23/20 17:51 ONCE ONE Magnesium Hydroxide 30 ml 03/22/20 18:22 Magnesium Hydroxide (Mom) Oral Liqd Udc PO Q4H PRN Constipation Methylprednisolone Sodium Succinate 40 mg 03/22/20 22:00 03/23/20 13:55 Methylprednisolone Sod Succinate 40 Mg/1 Ml Inj IV 40 mg Q8HR NADIA Administration Morphine Sulfate 2 mg 03/22/20 18:22 03/23/20 13:55 Morphine 2 Mg/1 Ml Inj IV 2 mg Q4H PRN Administration Pain, Moderate (4-6) Ondansetron HCl 4 mg 03/22/20 18:22 Ondansetron 4 Mg/2 Ml Inj IV Q8H PRN Nausea And Vomiting Sodium Chloride 10 ml 03/22/20 22:00 03/23/20 09:03 Sodium Chloride 0.9% 10 Ml Flush Syringe IV 10 ml BID NADIA Administration Sodium Chloride 10 ml 03/22/20 18:22 Sodium Chloride 0.9% 10 Ml Flush Syringe IV PRN PRN LINE FLUSH
[2020-03-23] MEDS: amLODIPine 10 MG TAB PO SCH (18:12)
[2020-03-23 18:47] LABS: Bilirubin,Urine NEG (Negative); Blood,Urine NEG (Negative); Color,Urine Yellow (Yellow); Mucus,Urine FEW /HPF; Urobilinogen,Urine < 2.0 mg/dL (<2.0)
[2020-03-23 18:48] LABS: RBC,Urine < 1.0 /HPF (0.0-6.0)
[2020-03-23 18:53] LABS: Amphetamine Screen,Urine Negative; Benzodiazepines Screen,Urine Negative; Cannabinoid Screen,Urine Negative; Cocaine Screen,Urine Negative; Methadone Screen,Urine Negative; Opiate Screen,Urine Negative
[2020-03-23] MEDS ORDERED: CALCIUM GLUCONATE 1,000 MG in SODIUM CHLORIDE 0.9% 100 ML IV ONE (19:00)
[2020-03-23] MEDS ORDERED: ALBUTEROL 2.5 MG/3 ML NEBU IH SCH (20:00)
[2020-03-23] MEDS ORDERED: ALBUTEROL 2.5 MG/3 ML NEBU IH PRN (20:07)
[2020-03-23] MEDS: ENOXAPARIN 40 MG/0.4 ML INJ SUB-Q SCH (21:58)
[2020-03-23] MEDS: FERROUS SULFATE 325 MG TAB PO SCH (21:59)
[2020-03-23] MEDS ORDERED: dilTIAZem 25 MG/5 ML INJ IV ONE ×2 (22:46→23:14)
[2020-03-24] MEDS: dilTIAZem/D5W 100 MG/100 ML BAG IV SCH ×2 (00:40→11:55)
[2020-03-24] MEDS ORDERED: ALBUTEROL 8.5 GM MDI INHALATION IH PRN (00:44)
[2020-03-24] MEDS ORDERED: ALBUTEROL 2.5 MG/3 ML NEBU IH PRN (00:44)
[2020-03-24] MEDS: ALUM-MAG HYDROXIDE-SIMETHICONE 200-200-20MG/5ML ORAL LIQD 30 ML PO PRN ×2 (00:47→23:34)
[2020-03-24] MEDS: MORPHINE 2 MG/1 ML INJ IV PRN ×3 (02:35→23:49)
[2020-03-24] MEDS: methylPREDNISolone Sod Succinate 40 MG/1 ML INJ IV SCH ×3 (05:24→21:00)
[2020-03-24] MEDS ORDERED: IPRATROPIUM/ALBUTEROL SULFATE 3 ML AMPUL.NEB IH SCH (08:00)
--- NOTE | 2020-03-24 08:18 | Progress Note ---
Assessment and Plan AE-COPD Afib with RVR Acute hypoxia Moderate protein calorie malnutrition Tobacco use disorder/Nicotine dependence Substance abuse disorder-h/o Cocaine, UDS negative this visit Microcytic anemia HIV-AIDS Wean steroids as tolerated On Cardizem infusion for Afib with RVR, was stopped this morning. Monitor heart rate, keep <100 Get lower extremity dopplers and D-dimer r/o possible VTE. If renal function is stable get CTA r/o PE May benefit from low dose Beta blockers, his UDS was negative for cocaine this visit CXR, ABG as clinically indicated Wean supplemental oxygen to keep O2 sats 88-90% ID for ART and HIV management - Continue bronchodilators, HEIDI/CLEMENTE - Continue steroids, start taper in the morning - Continue VTE prophylaxis - Continue Nicotine withdrawal precautions -Smoking cessation counselling, done at the bedside -Accuchecks with glycemic control while on steroids, keep blood glucose <180mg/dL -Chronic home medications -Monitor renal functions and dose medications for CrCL/GFR -Optimize nutritional status -Outpatient pulmonary follow up to evaluate FEV1, optimize pulmonary status Subjective Date of service: 03/24/20 Interval history: Patient seen in follow up for:AE-COPD;Acute hypoxia;Moderate protein calorie malnutrition;Tobacco use disorder/Nicotine dependence Patient seen and examined. Vitals, labs, medications, chart reviewed. Discussed with nursing and respiratory staff; Transferred to ICU fro Cardizem infusion, developed Afib with RVR overnight. Feeling better, slight cough. Denies any chest pain, no shortness of breath. Objective - Exam Narrative Exam: Vitals reviewed General appearance: Present: no acute distress, chronically ill looking - EENT Eyes: Present: PERRL, EOM intact ENT: hearing intact, clear oral mucosa - Respiratory Respiratory effort: normal Respiratory: Bilateral wheezes heard, no crackles or rhonchi heard - Cardiovascular Rhythm: Irregular rate and rhythm Heart Sounds: Present: S1 & S2. Absent: rub, click - Extremities Extremities: no ischemia, No edema, normal temperature, normal color, Full ROM - Abdominal General gastrointestinal: soft, non-tender, non-distended, normal bowel sounds - Integumentary Integumentary: Present: clear, warm, dry, normal turgor - Neurologic Neurologic: CNII-XII intact, no focal deficits, moves all extremities Vital Signs - 12hr 03/23/20 03/23/20 03/23/20 21:40 22:53 23:20 Temperature 98.1 F Pulse Rate 87 146 H 150 H Pulse Rate [ From Monitor] Respiratory 18 Rate Blood Pressure 150/80 148/100 112/84 O2 Sat by Pulse 97 Oximetry 03/24/20 03/24/20 03/24/20 00:42 00:50 01:01 Temperature Pulse Rate 159 H 158 H Pulse Rate [ From Monitor] Respiratory 22 34 H 28 H Rate Blood Pressure 152/123 152/123 O2 Sat by Pulse 96 97 Oximetry 03/24/20 03/24/20 03/24/20 01:03 01:11 01:21 Temperature Pulse Rate 140 H 148 H Pulse Rate [ 155 H From Monitor] Respiratory 25 H 23 21 Rate Blood Pressure 158/90 114/66 O2 Sat by Pulse 99 99 100 Oximetry 03/24/20 03/24/20 03/24/20 01:31 01:41 01:51 Temperature Pulse Rate 136 H 138 H 150 H Pulse Rate [ From Monitor] Respiratory 21 22 25 H Rate Blood Pressure 110/71 110/71 98/74 O2 Sat by Pulse 100 99 97 Oximetry 03/24/20 03/24/20 03/24/20 02:01 02:11 02:21 Temperature Pulse Rate 131 H 140 H 167 H Pulse Rate [ From Monitor] Respiratory 21 21 30 H Rate Blood Pressure 98/74 98/74 122/95 O2 Sat by Pulse 98 97 97 Oximetry 03/24/20 03/24/20 03/24/20 02:31 02:41 02:50 Temperature Pulse Rate 158 H 131 H 145 H Pulse Rate [ From Monitor] Respiratory 23 19 22 Rate Blood Pressure 106/73 96/65 102/60 O2 Sat by Pulse 99 99 98 Oximetry 03/24/20 03/24/20 03/24/20 03:00 03:10 03:21 Temperature Pulse Rate 133 H 140 H 118 H Pulse Rate [ From Monitor] Respiratory 20 22 21 Rate Blood Pressure 102/60 100/70 O2 Sat by Pulse 99 100 100 Oximetry 03/24/20 03/24/20 03/24/20 03:31 03:41 03:51 Temperature Pulse Rate 143 H 144 H 120 H Pulse Rate [ From Monitor] Respiratory 25 H 29 H 23 Rate Blood Pressure 96/68 96/68 103/65 O2 Sat by Pulse 99 99 100 Oximetry 01/03/24/20 03/24/20 04:00 04:11 04:21 Temperature 97.7 F Pulse Rate 123 H 122 H 119 H Pulse Rate [ 134 H From Monitor] Respiratory 24 23 21 Rate Blood Pressure 96/63 96/63 102/70 O2 Sat by Pulse 97 95 97 Oximetry 03/24/20 03/24/20 03/24/20 04:31 04:41 04:51 Temperature Pulse Rate 138 H 152 H 111 H Pulse Rate [ From Monitor] Respiratory 26 H 53 H 19 Rate Blood Pressure 102/70 121/77 130/69 O2 Sat by Pulse 97 96 100 Oximetry 03/24/20 03/24/20 03/24/20 05:01 05:11 05:21 Temperature Pulse Rate 129 H 119 H 114 H Pulse Rate [ From Monitor] Respiratory 21 20 18 Rate Blood Pressure 117/60 117/60 117/69 O2 Sat by Pulse 98 100 100 Oximetry 03/24/20 03/24/20 03/24/20 05:30 05:41 05:51 Temperature Pulse Rate 121 H 113 H 105 H Pulse Rate [ From Monitor] Respiratory Rate Blood Pressure 111/70 111/70 123/55 O2 Sat by Pulse 99 100 100 Oximetry 03/24/20 06:01 Temperature Pulse Rate 110 H Pulse Rate [ From Monitor] Respiratory Rate Blood Pressure 123/55 O2 Sat by Pulse 99 Oximetry CBC and BMP: 03/25/20 04:24 03/25/20 04:24 ABG, PT/INR, D-dimer: PT/INR, D-dimer PT 14.4 Sec. (12.2-14.9) 03/23/20 05:35 INR 1.13 (0.87-1.13) 03/23/20 05:35 Abnormal lab findings: Abnormal Labs 03/22/20 03/22/20 03/23/20 14:42 14:42 05:35 WBC 17.0 H Hgb 10.1 L 8.6 L Hct 33.8 L 27.4 L D MCV 73 L 71 L MCH 22 L 22 L MCHC 30 L 31 L RDW 23.7 H 23.5 H Seg Neuts % (Manual) 77.0 H 99.0 H Monocytes % (Manual) 8.0 H Seg Neutrophils # Man 13.1 H 8.6 H Lymphocytes # (Manual) 0.0 L Monocytes # (Manual) 1.4 H Chloride 97.8 L Carbon Dioxide 38 H BUN 32 H Glucose 117 H Calcium 6.9 L Albumin 3.7 L 03/23/20 05:35 WBC Hgb Hct MCV MCH MCHC RDW Seg Neuts % (Manual) Monocytes % (Manual) Seg Neutrophils # Man Lymphocytes # (Manual) Monocytes # (Manual) Chloride Carbon Dioxide 35 H BUN 32 H Glucose 229 H Calcium 6.4 L Albumin
[2020-03-24] MEDS: IPRATROPIUM/ALBUTEROL SULFATE 3 ML AMPUL.NEB IH SCH ×3 (08:39→20:45)
[2020-03-24] MEDS: FERROUS SULFATE 325 MG TAB PO SCH ×3 (08:45→20:55)
[2020-03-24] MEDS ORDERED: dilTIAZem CD 120 MG CAP PO SCH (10:00)
[2020-03-24] MEDS: ASPIRIN EC 81 MG TAB PO SCH (10:29)
[2020-03-24] MEDS: amLODIPine 10 MG TAB PO SCH (11:41)
--- NOTE | 2020-03-24 15:46 | Consultation ---
History of Present Illness Consult date: 03/24/20 Requesting physician: JOSE DAS Consult reason: atrial fibrillation History of present illness: The pt is a 64-year-old male with a past medical history of transient atrial fibrillation (no systemic AC in the past secondary to brief duration of AFib, anemia and medical noncompliance), nonobstructive CAD, HTN, HIV with unknown CD4 count, COPD, tobacco use, cocaine abuse, PE in the past. He has been seen by our practice on multiple prior hospitalizations. He presented with c/o shortness of breath and palpitations for several days prior to arrival. He admits that he has not taken any prescription medications in several months. Following arrival, pt was noted to be in AFib with RVR and was initiated on cardizem gtt. LHC done 09/15/2019 showed mild nonobstructive CAD (25% mid RCA), EF 55-60%. Stress MPI done 08/24/2019 was negative. tte done 06/2019 showed EF 60-65%, impaired relaxation. Past History Past Medical History: COPD, hypertension, hyperlipidemia, pulmonary embolism, other (Chronic pain,HIV,) Past Surgical History: No surgical history Social history: smoking (Current daily smoker,), other (Cocaine abuse) Family history: no significant family history Medications and Allergies Allergies Allergy/AdvReac Type Severity Reaction Status Date / Time No Known Allergies Allergy Verified 01/28/20 15:32 Home Medications Medication Instructions Recorded Confirmed Last Taken Type Ipratropium/Albuterol Sulfate 1 ampul IH TIDRT #1 ampul.neb 11/20/19 01/05/20 Unknown Rx [DUONEB *Not for PRN Use*] clonazePAM [KlonoPIN] 1 mg PO QHS #30 tablet 11/20/19 01/05/20 Unknown Rx Aspirin EC [Halfprin EC] 81 mg PO QDAY #30 tablet. 01/07/20 Unknown Rx AtorvaSTATin [Lipitor] 40 mg PO QHS #30 tablet 01/07/20 Unknown Rx Montelukast (Nf) [Singulair] 5 mg PO QPM #20 tab.chew 01/07/20 Unknown Rx dilTIAZem CD [Cardizem CD] 120 mg PO QDAY #30 capsule 01/07/20 Unknown Rx Albuterol Mdi (or & Nicu Only) 2 puff IH QID PRN #1 inhalation 01/21/20 Unknown Rx [ProAir HFA Inhaler] ALBUTEROL NEB's [Proventil 0.083% 2.5 mg IH TID PRN #1 box 03/13/20 Unknown Rx NEBS] Active Meds: Active Medications Acetaminophen (Acetaminophen 325 Mg Tab) 650 mg PO Q4H PRN PRN Reason: Pain MILD(1-3)/Fever >100.5/KOENIG Last Admin: 03/23/20 10:54 Dose: 650 mg Documented by: Al Hydrox/Mg Hydrox/Simethicone (Alum-Mag Hydroxide-Simethicone [phone]/5ml Oral Liqd 30 Ml) 30 ml PO Q6H PRN PRN Reason: Indigestion Last Admin: 03/24/20 00:47 Dose: 30 ml Documented by: Albuterol (Albuterol 2.5 Mg/3 Ml Nebu) 2.5 mg IH Q4HRT PRN PRN Reason: Shortness Of Breath Albuterol/Ipratropium (Ipratropium/Albuterol Sulfate 3 Ml Ampul.Neb) 1 ampul IH TIDRT [facility] Last Admin: 03/24/20 15:09 Dose: Not Given Documented by: Amlodipine Besylate (Amlodipine 10 Mg Tab) 10 mg PO QDAY [facility] Last Admin: 03/24/20 11:41 Dose: Not Given Documented by: Aspirin (Aspirin Ec 81 Mg Tab) 81 mg PO QDAY [facility] Last Admin: 03/24/20 10:29 Dose: 81 mg Documented by: Atorvastatin Calcium (Atorvastatin 40 Mg Tab) 40 mg PO QHS [facility] Clonazepam (Clonazepam 0.5 Mg Tab) 1 mg PO QHS [facility] Diltiazem HCl (Diltiazem Cd 120 Mg Cap) 120 mg PO QDAY [facility] Last Admin: 03/24/20 10:29 Dose: 120 mg Documented by: Enoxaparin Sodium (Enoxaparin 40 Mg/0.4 Ml Inj) 40 mg SUB-Q QDAY@2200 [facility]; Protocol Last Admin: 03/23/20 21:58 Dose: 40 mg Documented by: Ferrous Sulfate (Ferrous Sulfate 325 Mg Tab) 325 mg PO TID [facility] Last Admin: 03/24/20 13:50 Dose: 325 mg Documented by: Levofloxacin/Dextrose (Levaquin 750mg/150ml) 750 mg in 150 mls @ 100 mls/hr IV Q24H NADIA; Protocol Last Admin: 03/23/20 18:11 Dose: 100 mls/hr Documented by: Diltiazem HCl (Cardizem/D5w 100mg/100ml) 100 mg in 100 mls @ 5 mls/hr IV TITR NADIA; Protocol Last Titration: 03/24/20 15:10 Dose: 5 mg/hr, 5 mls/hr Documented by: Magnesium Hydroxide (Magnesium Hydroxide (Mom) Oral Liqd Udc) 30 ml PO Q4H PRN PRN Reason: Constipation Methylprednisolone Sodium Succinate (Methylprednisolone Sod Succinate 40 Mg/1 Ml Inj) 40 mg IV Q8HR NADIA Last Admin: 03/24/20 13:50 Dose: 40 mg Documented by: Morphine Sulfate (Morphine 2 Mg/1 Ml Inj) 2 mg IV Q4H PRN PRN Reason: Pain, Moderate (4-6) Last Admin: 03/24/20 02:35 Dose: 2 mg Documented by: Ondansetron HCl (Ondansetron 4 Mg/2 Ml Inj) 4 mg IV Q8H PRN PRN Reason: Nausea And Vomiting Sodium Chloride (Sodium Chloride 0.9% 10 Ml Flush Syringe) 10 ml IV BID NADIA Last Admin: 03/24/20 10:30 Dose: 10 ml Documented by: Sodium Chloride (Sodium Chloride 0.9% 10 Ml Flush Syringe) 10 ml IV PRN PRN PRN Reason: LINE FLUSH Review of Systems Constitutional: no weight loss, no weight gain, no fever, no chills, no sweats Ears, nose, mouth and throat: no ear pain, no nose pain, no sinus pressure, no sinus pain Cardiovascular: palpitations, rapid/irregular heart beat, shortness of breath, dyspnea on exertion, high blood pressure, no chest pain, no orthopnea, no edema, no syncope, no lightheadedness Respiratory: no cough, no congestion, no wheezing, no pain on inspiration Gastrointestinal: no abdominal pain, no nausea, no vomiting, no diarrhea, no constipation, no change in bowel habits Genitourinary Male: no dysuria, no hematuria, no flank pain, no discharge, no urinary frequency, no urinary hesitancy Musculoskeletal: no neck stiffness, no neck pain, no shooting arm pain, no arm numbness/tingling, no low back pain, no shooting leg pain Integumentary: no rash, no pruritis, no redness, no sores, no wounds Neurological: no head injury, no paralysis, no weakness, no parathesias, no numbness, no tingling, no seizures, no syncope Psychiatric: no anxiety Endocrine: no cold intolerance, no heat intolerance Hematologic/Lymphatic: no easy bruising, no easy bleeding Allergic/Immunologic: no urticaria Physical Examination Vital Signs Temp Pulse Resp BP Pulse Ox 98.1 F 76 22 136/69 99 03/22/20 13:27 03/22/20 13:27 03/22/20 13:27 03/22/20 13:27 03/22/20 13:27 General appearance: no acute distress HEENT: Positive: PERRL, Normocephaly, Mucus Membranes Moist Neck: Positive: neck supple, trachea midline Cardiac: Positive: irregularly irregular, S1/S2 Lungs: Positive: Decreased Breath Sounds Neuro: Positive: Grossly Intact Abdomen: Negative: Tender Skin: Negative: Rash Musculoskeletal: No Pain Extremities: Absent: edema Results 03/23/20 05:35 03/23/20 05:35 - Imaging and Cardiology Echo: report reviewed (06/2019 showed EF 60-65%, impaired relaxation. ) Cardiac cath: report reviewed (09/15/2019 showed mild nonobstructive CAD (25% mid RCA), EF 55-60%. ) EKG: report reviewed, image reviewed EKG interpretations - Telemetry EKG Rhythm: Atrial Fibrillation - EKG Supraventricular dysrhythmia: atrial fibrillation Assessment and Plan Optimize HR and BPs - agree with IV cardizem, cont PO cardizem and wean cardizem gtt off for resting HR <100. Avoid BB given h/o cocaine abuse. Pt has not received systemic AC in the past secondary to brief duration of AFib, anemia and medical noncompliance. However, given recurrent AFib, will initiate full dosage lovenox BID and consider transition to OAC prior to hospital discharge. F/u CBC in AM. Will follow. The patient has been seen in conjunction with Dr. Gavino Jovel who agrees with the assessment and plan of care. - Patient Problems (1) Paroxysmal atrial fibrillation with RVR Current Visit: Yes Status: Acute (2) Nonobstructive atherosclerosis of coronary artery Current Visit: Yes Status: Chronic (3) Hypertension Current Visit: Yes Status: Chronic Qualifiers: Hypertension type: essential hypertension Qualified Code(s): I10 - Essential (primary) hypertension (4) COPD (chronic obstructive pulmonary disease) Current Visit: Yes Status: Chronic Qualifiers: COPD type: unspecified COPD Qualified Code(s): J44.9 - Chronic obstructive pulmonary disease, unspecified (5) HIV (human immunodeficiency virus infection) Current Visit: Yes Status: Chronic Qualifiers: HIV symptom status: asymptomatic Qualified Code(s): Z21 - Asymptomatic human immunodeficiency virus [HIV] infection status (6) Anemia Current Visit: Yes Status: Chronic Qualifiers: Anemia type: unspecified type Qualified Code(s): D64.9 - Anemia, unspecified (7) History of pulmonary embolism Current Visit: Yes Status: Chronic (8) Tobacco use Current Visit: Yes Status: Chronic (9) Medical noncompliance Current Visit: Yes Status: Chronic (10) Cocaine use Current Visit: Yes Status: Chronic
[2020-03-24] MEDS: dilTIAZem 60 MG TAB PO SCH ×3 (16:15→23:46)
--- NOTE | 2020-03-24 18:28 | Progress Note ---
Assessment and Plan Assessment and plan: 64-year-old male with past medical history as above who presents with acute dyspnea secondary to COPD exacerbation. Plan: Acute COPD exacerbation Pulmonology consulted Albuterol nebulizers and IV steroids Levaquin antibiotics Atrial fibrillation with RVR Cardiology consulted Cardizem drip Transition to p.o. Cardizem We will start oral anticoagulation HIV infection, chronic CD4 is unknown Patient follow-up with his infectious disease physician in the outpatient setting Hypertension We will start patient on amlodipine, patient's home medication Continue to monitor Chronic microcytic anemia Etiology unknown, possibly secondary to HIV infection Continue to monitor, consider iron supplementation. Steroid-induced hyperglycemia Continue to monitor Hypocalcemia Replete as needed CODE STATUS: Full DVT prophylaxis: Heparin History Interval history: Patient with shortness of breath especially with exertion. Nurse at the bedside, seen in the CCU. Patient continues to be in [facility] Hospitalist Physical - Physical exam Narrative exam: General appearance: Present: no acute distress, well-nourished - EENT Eyes: Present: PERRL, EOM intact ENT: hearing intact, clear oral mucosa - Respiratory Respiratory effort: normal Respiratory: Bilateral wheezes heard, no crackles or rhonchi heard - Cardiovascular Rhythm: Irregular rate and rhythm Heart Sounds: Present: S1 & S2. Absent: rub, click - Extremities Extremities: no ischemia, No edema, normal temperature, normal color, Full ROM - Abdominal General gastrointestinal: soft, non-tender, non-distended, normal bowel sounds - Integumentary Integumentary: Present: clear, warm, dry, normal turgor - Neurologic Neurologic: CNII-XII intact, no focal deficits, moves all extremities - Constitutional Vitals: Temp Pulse Resp BP Pulse Ox 98.2 F 106 H 25 H 101/65 100 03/24/20 16:00 03/24/20 18:00 03/24/20 13:11 03/24/20 18:00 03/24/20 13:11 General appearance: Present: no acute distress HEART Score - HEART Score Troponin: Troponin T < 0.010 ng/mL (0.00-0.029) 03/22/20 16:07 Results - Labs CBC & Chem 7: 03/23/20 05:35 03/23/20 05:35 Labs: Laboratory Last Values WBC 8.7 K/mm3 (4.5-11.0) 03/23/20 05:35 RBC 3.85 M/mm3 (3.65-5.03) 03/23/20 05:35 Hgb 8.6 gm/dl (11.8-15.2) L 03/23/20 05:35 Hct 27.4 % (35.5-45.6) L D 03/23/20 05:35 MCV 71 fl (84-94) L 03/23/20 05:35 MCH 22 pg (28-32) L 03/23/20 05:35 MCHC 31 % (32-34) L 03/23/20 05:35 RDW 23.5 % (13.2-15.2) H 03/23/20 05:35 Plt Count 336 K/mm3 (140-440) 03/23/20 05:35 Add Manual Diff Complete 03/23/20 05:35 Total Counted 100 03/23/20 05:35 Seg Neutrophils % Industrial/Organizational Psychologist 03/23/20 05:35 Seg Neuts % (Manual) 99.0 % (40.0-70.0) H 03/23/20 05:35 Lymphocytes % (Manual) 15.0 % (13.4-35.0) 03/22/20 14:42 Monocytes % (Manual) 1.0 % (0.0-7.3) 03/23/20 05:35 Nucleated RBC % Not Reportable 03/23/20 05:35 Seg Neutrophils # Man 8.6 K/mm3 (1.8-7.7) H 03/23/20 05:35 Band Neutrophils # 0.0 K/mm3 03/23/20 05:35 Lymphocytes # (Manual) 0.0 K/mm3 (1.2-5.4) L 03/23/20 05:35 Abs React Lymphs (Man) 0.0 K/mm3 03/23/20 05:35 Monocytes # (Manual) 0.1 K/mm3 (0.0-0.8) 03/23/20 05:35 Eosinophils # (Manual) 0.0 K/mm3 (0.0-0.4) 03/23/20 05:35 Basophils # (Manual) 0.0 K/mm3 (0.0-0.1) 03/23/20 05:35 Metamyelocytes # 0.0 K/mm3 03/23/20 05:35 Myelocytes # 0.0 K/mm3 03/23/20 05:35 Promyelocytes # 0.0 K/mm3 03/23/20 05:35 Blast Cells # 0.0 K/mm3 03/23/20 05:35 WBC Morphology Not Reportable 03/23/20 05:35 Hypersegmented Neuts Not Reportable 03/23/20 05:35 Hyposegmented Neuts Not Reportable 03/23/20 05:35 Hypogranular Neuts Not Reportable 03/23/20 05:35 Smudge Cells Not Reportable 03/23/20 05:35 Toxic Granulation Not Reportable 03/23/20 05:35 Toxic Vacuolation Not Reportable 03/23/20 05:35 Dohle Bodies Not Reportable 03/23/20 05:35 Pelger-Huet Anomaly Not Reportable 03/23/20 05:35 Ruma Rods Not Reportable 03/23/20 05:35 Platelet Estimate Consistent w auto 03/23/20 05:35 Clumped Platelets Not Reportable 03/23/20 05:35 Plt Clumps, EDTA Not Reportable 03/23/20 05:35 Large Platelets Not Reportable 03/23/20 05:35 Giant Platelets Not Reportable 03/23/20 05:35 Platelet Satelliting Not Reportable 03/23/20 05:35 Plt Morphology Comment Not Reportable 03/23/20 05:35 RBC Morphology Not Reportable 03/23/20 05:35 Dimorphic RBCs Not Reportable 03/23/20 05:35 Polychromasia Not Reportable 03/23/20 05:35 Hypochromasia 2+ 03/23/20 05:35 Poikilocytosis 1+ 03/23/20 05:35 Anisocytosis 2+ 03/23/20 05:35 Microcytosis Not Reportable 03/23/20 05:35 Macrocytosis Not Reportable 03/23/20 05:35 Spherocytes Not Reportable 03/23/20 05:35 Pappenheimer Bodies Not Reportable 03/23/20 05:35 Sickle Cells Not Reportable 03/23/20 05:35 Target Cells Not Reportable 03/23/20 05:35 Tear Drop Cells Few 03/23/20 05:35 Ovalocytes 1+ 03/23/20 05:35 Helmet Cells Not Reportable 03/23/20 05:35 David-Osino Bodies Not Reportable 03/23/20 05:35 Frederick Rings Not Reportable 03/23/20 05:35 Don Cells Not Reportable 03/23/20 05:35 Bite Cells Not Reportable 03/23/20 05:35 Crenated Cell Not Reportable 03/23/20 05:35 Elliptocytes Few 03/23/20 05:35 Acanthocytes (Spur) Not Reportable 03/23/20 05:35 Rouleaux Not Reportable 03/23/20 05:35 Hemoglobin C Crystals Not Reportable 03/23/20 05:35 Schistocytes Not Reportable 03/23/20 05:35 Malaria parasites Not Reportable 03/23/20 05:35 Ric Bodies Not Reportable 03/23/20 05:35 Hem Pathologist Commnt No 03/23/20 05:35 PT 14.4 Sec. (12.2-14.9) 03/23/20 05:35 INR 1.13 (0.87-1.13) 03/23/20 05:35 Sodium 144 mmol/L (137-145) 03/23/20 05:35 Potassium 4.1 mmol/L (3.6-5.0) 03/23/20 05:35 Chloride 99.1 mmol/L (98-107) 03/23/20 05:35 Carbon Dioxide 35 mmol/L (22-30) H 03/23/20 05:35 Anion Gap 14 mmol/L 03/23/20 05:35 BUN 32 mg/dL (9-20) H 03/23/20 05:35 Creatinine 1.0 mg/dL (0.8-1.3) 03/23/20 05:35 Estimated GFR > 60 ml/min 03/23/20 05:35 BUN/Creatinine Ratio 32 % 03/23/20 05:35 Glucose 229 mg/dL (75-100) H 03/23/20 05:35 Lactic Acid 1.50 mmol/L (0.7-2.0) 03/22/20 16:07 Calcium 6.4 mg/dL (8.4-10.2) L 03/23/20 05:35 Total Bilirubin 0.40 mg/dL (0.1-1.2) 03/22/20 14:42 AST 16 units/L (5-40) 03/22/20 14:42 ALT 32 units/L (7-56) 03/22/20 14:42 Alkaline Phosphatase 62 units/L (35-129) 03/22/20 14:42 Troponin T < 0.010 ng/mL (0.00-0.029) 03/22/20 16:07 Total Protein 7.0 g/dL (6.3-8.2) 03/22/20 14:42 Albumin 3.7 g/dL (3.9-5) L 03/22/20 14:42 Albumin/Globulin Ratio 1.1 % 03/22/20 14:42 Urine Color Yellow (Yellow) 03/23/20 Unknown Urine Turbidity Clear (Clear) 03/23/20 Unknown Urine pH 5.0 (5.0-7.0) 03/23/20 Unknown Ur Specific Somis 1.015 (1.003-1.030) 03/23/20 Unknown Urine Protein 100 mg/dl mg/dL (Negative) 03/23/20 Unknown Urine Glucose (UA) >=500 mg/dL (Negative) 03/23/20 Unknown Urine Ketones Neg mg/dL (Negative) 03/23/20 Unknown Urine Blood Neg (Negative) 03/23/20 Unknown Urine Nitrite Neg (Negative) 03/23/20 Unknown Urine Bilirubin Neg (Negative) 03/23/20 Unknown Urine Urobilinogen < 2.0 mg/dL (<2.0) 03/23/20 Unknown Ur Leukocyte Esterase Neg (Negative) 03/23/20 Unknown Urine WBC (Auto) 2.0 /HPF (0.0-6.0) 03/23/20 Unknown Urine RBC (Auto) < 1.0 /HPF (0.0-6.0) 03/23/20 Unknown Urine Mucus Few /HPF 03/23/20 Unknown Urine Opiates Screen Negative 03/23/20 Unknown Urine Methadone Screen Negative 03/23/20 Unknown Ur Barbiturates Screen Negative 03/23/20 Unknown Ur Phencyclidine Scrn Negative 03/23/20 Unknown Ur Amphetamines Screen Negative 03/23/20 Unknown U Benzodiazepines Scrn Negative 03/23/20 Unknown Urine Cocaine Screen Negative 03/23/20 Unknown U Marijuana (THC) Screen Negative 03/23/20 Unknown Drugs of Abuse Note Disclamer 03/23/20 Unknown Microbiology: Microbiology 03/22/20 18:07 Peripheral/Venous Blood Culture - Preliminary NO GROWTH AFTER 48 HOURS 03/22/20 17:54 Peripheral/Venous Blood Culture - Preliminary NO GROWTH AFTER 48 HOURS Clayton/IV: Voiding Method Urinal IV Catheter Type [Left Hand] Peripheral IV IV Catheter Type [Right Hand] INT / Saline Lock Active Medications - Current Medications Current Medications: Generic Name Dose Route Start Last Admin Trade Name Freq PRN Reason Stop Dose Admin Acetaminophen 650 mg 03/22/20 18:22 03/23/20 10:54 Acetaminophen 325 Mg Tab PO 650 mg Q4H PRN Administration Pain MILD(1-3)/Fever >100.5/KOENIG Al Hydrox/Mg Hydrox/Simethicone 30 ml 03/24/20 00:36 03/24/20 00:47 Alum-Mag Hydroxide-Simethicone [id number]/5ml Oral Liqd 30 Ml PO 30 ml Q6H PRN Administration Indigestion Albuterol 2.5 mg 03/23/20 20:07 Albuterol 2.5 Mg/3 Ml Nebu IH Q4HRT PRN Shortness Of Breath Albuterol/Ipratropium 1 ampul 03/24/20 08:00 03/24/20 15:09 Ipratropium/Albuterol Sulfate 3 Ml Ampul.Neb IH Not Given TIDRT NADIA Aspirin 81 mg 03/24/20 10:00 03/24/20 10:29 Aspirin Ec 81 Mg Tab PO 81 mg QDAY NADIA Administration Atorvastatin Calcium 40 mg 03/24/20 22:00 Atorvastatin 40 Mg Tab PO QHS NADIA Clonazepam 1 mg 03/24/20 22:00 Clonazepam 0.5 Mg Tab PO QHS [facility] Diltiazem HCl 60 mg 03/24/20 15:56 03/24/20 18:00 Diltiazem 60 Mg Tab PO 60 mg Q6HR NADIA Administration Enoxaparin Sodium 70 mg 03/24/20 22:00 Enoxaparin 80 Mg/0.8 Ml Inj SUB-Q Q12HR [facility] Protocol Ferrous Sulfate 325 mg 03/23/20 20:00 03/24/20 13:50 Ferrous Sulfate 325 Mg Tab PO 325 mg TID NADIA Administration Levofloxacin/Dextrose 750 mg in 150 mls @ 100 mls/hr 03/23/20 17:00 03/24/20 18:00 Levaquin 750mg/150ml IV 100 mls/hr Q24H NADIA Administration Protocol Diltiazem HCl 100 mg in 100 mls @ 5 mls/hr 03/23/20 23:45 03/24/20 18:00 Cardizem/D5w 100mg/100ml IV 5 mg/hr TITR NADIA 5 mls/hr Titration Protocol 5 MG/HR Magnesium Hydroxide 30 ml 03/22/20 18:22 Magnesium Hydroxide (Mom) Oral Liqd Udc PO Q4H PRN Constipation Methylprednisolone Sodium Succinate 40 mg 03/22/20 22:00 03/24/20 13:50 Methylprednisolone Sod Succinate 40 Mg/1 Ml Inj IV 40 mg Q8HR NADIA Administration Morphine Sulfate 2 mg 03/22/20 18:22 03/24/20 16:16 Morphine 2 Mg/1 Ml Inj IV 2 mg Q4H PRN Administration Pain, Moderate (4-6) Ondansetron HCl 4 mg 03/22/20 18:22 Ondansetron 4 Mg/2 Ml Inj IV Q8H PRN Nausea And Vomiting Sodium Chloride 10 ml 03/22/20 22:00 03/24/20 10:30 Sodium Chloride 0.9% 10 Ml Flush Syringe IV 10 ml BID NADIA Administration Sodium Chloride 10 ml 03/22/20 18:22 Sodium Chloride 0.9% 10 Ml Flush Syringe IV PRN PRN LINE FLUSH
[2020-03-24] MEDS: ENOXAPARIN 80 MG/0.8 ML INJ SUB-Q SCH (21:00)
[2020-03-24] MEDS: clonazePAM 0.5 MG TAB PO SCH (21:00)
--- NOTE | 2020-03-24 21:37 | Consultation ---
PULMONARY CONSULT NOTE CONSULTING PHYSICIAN: Dr. Rodney Cook REASON FOR CONSULTATION: Acute COPD exacerbation. CHIEF COMPLAINT AND HISTORY OF PRESENT ILLNESS: The patient is a now 64-year-old male with a past medical history significant amongst other things for a diagnosis of COPD, who came into the Emergency Room complaining of shortness of breath, cough that was mostly nonproductive. It had been going on for about a couple of days. He states he is on albuterol at home and states he has been compliant with his albuterol. He told me he had a dry cough, but in the Emergency Room it mentioned yellowish to greenish phlegm. He denied any fevers or chills. He denied nausea, vomiting, or overt aspiration. He denied any new onset leg pain or swelling either unilaterally or bilaterally. He denied any known contacts with anyone with COVID-19 infection. He denied any recent travel. In the Emergency Room, he was tachypneic. He was tachycardic. He was short of breath. He had an elevated white count. He was admitted with a diagnosis of COPD exacerbation. We are asked to assist with management. When I stopped by to see him, he was resting in bed. He was on supplemental oxygen at the time I saw him at 2 liters nasal cannula. That really is as much of the history of presentation. PAST MEDICAL HISTORY: COPD, hypertension, hyperlipidemia, history of pulmonary embolism. He has a history of chronic pain. He is HIV positive. PAST SURGICAL HISTORY: Denies. MEDICATIONS: He was on at the time I stopped by to see him were reviewed. Pertinent medications according to the medication administration record included the following: He was on Tylenol 650 mg p.o. q. 4 hours p.r.n. mild pain or fevers, Lovenox 40 mg subcutaneous daily, Levaquin 750 mg IV daily, p.r.n. magnesium hydroxide, Solu-Medrol 40 mg IV q. 8 hours, morphine sulfate 2 mg IV q. 4 hours p.r.n. moderate pain, Zofran 4 mg IV q. 8 hours p.r.n. nausea and vomiting. ALLERGIES: No known drug allergies. DIET: Thin gentleman. Denies acute weight loss or gain in the preceding few weeks to months. FAMILY AND SOCIAL HISTORY: Lives in the community. He denies alcohol use or abuse. He does smoke. He tries to give me a history about a [id number] tobacco smoking history, states now he is smoking only about 2 sticks a day. He also has a history of cocaine abuse. FAMILY HISTORY: Otherwise, unknown. REVIEW OF SYSTEMS: No loss of consciousness. No new onset seizures. No new onset focal weakness. Denies gross hematochezia or melena. Denies gross hematuria or dysuria. Denies hematemesis. Denies hemoptysis, denies heat or cold intolerance. Denies polydipsia or polyuria. Complains of shortness of breath. He denies rhinorrhea, diarrhea, sore throat, itchy eyes, or any other sign of upper viral infection. Review of systems otherwise unobtainable or as in the body of history above. PHYSICAL EXAMINATION: VITAL SIGNS: At presentation in the Emergency Room, review of vital signs show that he was afebrile, temperature 98.1 degrees Fahrenheit with a pulse of 76, respiratory rate of 22, blood pressure 136/69, O2 sats were 99%, inspired oxygen concentration at that time was not recorded, O2 sats were 98% at the time of my examination on 2 liters nasal cannula. GENERAL: He is an elderly looking male. Normocephalic, atraumatic. Talking to me in full sentences without significantly increased respiratory effort at rest. HEAD, EYES, EARS, NOSE AND THROAT: Anicteric. No conjunctival erythema. Oropharynx was moist. No gross jugular venous distention, no thyromegaly. NECK: Grossly, there were no palpable lymph nodes in the supraclavicular or submandibular lymph node chains. LUNGS: Auscultation of both lung cano significant for diminished bilateral breath sounds, prolonged expiratory phase, faint expiratory wheezing particularly in the upper left posterior chest wall. HEART: Heart sounds 1 and 2 are heard. They were regular in rate and rhythm at time of my evaluation without overt rubs or murmurs. ABDOMEN: Soft, flat. Bowel sounds are positive, nontender, no palpable hepatosplenomegaly. EXTREMITIES: Without overt digital clubbing, no cyanosis, no pedal edema. Pedal pulses were 2+ bilaterally. NEUROLOGIC: Pupils were equal, round, about 4 mm, reactive to light. Extraocular muscle movements were intact. He moves all 4 extremities spontaneously. SKIN: Normal turgor in the areas examined without overt cellulitis or rash. Please see the wound care nurse's notes for full description of his skin. PSYCHIATRIC: Mood was normal. Affect was appropriate. He had intact insight and judgment. LABORATORY DATA: From my review were as follows: Admission white cell count 17,000 with a hemoglobin of 10.1, hematocrit of 33.8 and a platelet count of 421. No band forms on the manual differential. INR 1.13. Serum sodium was 145, potassium 4.4, chloride 98, bicarbonate 38, BUN 32, creatinine 1.0, glucose was 117. Lactic acid level was within normal limits. Liver function tests essentially within normal limits. Urinalysis was negative for nitrites and leukocyte esterase and essentially bland. Urine drug screen was negative on all drugs screened for. Two sets of blood cultures, no growth to date. He had a chest x-ray done that essentially shows chronically increased looking interstitial markings. Taking the hyperinflation into consideration, he has borderline cardiomegaly. There is significant tenting of the hemidiaphragm, no gross pneumothorax, no gross bony fracture, no focal infiltrate that I can see and looked stable. ASSESSMENT: 1. Acute hypoxemic respiratory failure, possibly on chronic, he says he is not on home oxygen. 2. Acute chronic obstructive pulmonary disease exacerbation. 3. Human immunodeficiency virus positive. 4. History of hypertension. 5. Anemia that is microcytic. 6. History of cocaine abuse. 7. Tobacco use disorder. 8. Acute kidney injury. PLAN: I do agree with current interventions including empiric treatment for community-acquired pneumonia as well as systemic steroids. I will add long-acting bronchodilators into the mix as well as inhaled corticosteroids. Oxygen will be weaned to keep sats greater than or equal to about 88-90% acutely with restrictive oxygen therapies. Tobacco abstinence has been strongly counseled. I have explained to him he would still continue to benefit from stopping tobacco abuse at any point in time. We will continue GI and DVT prophylaxis. A consideration should be given for volume rehydration in light of the prerenal numbers. Flu and pneumonia vaccination will be addressed per protocol. Thank you very much for the consult. We will follow along and make further recommendations as picture progresses/becomes clearer. JOB# [id number] AJM/NTS
[2020-03-25 05:37] LABS: Hematocrit 29.3 % (35.5-45.6); Mean Corpuscular HGB Conc 31 % (32-34); Mean Corpuscular Volume 73 fl (84-94); Platelet Count 321 K/mm3 (140-440); Red Blood Count 4.03 M/mm3 (3.65-5.03)
[2020-03-25] MEDS: dilTIAZem 60 MG TAB PO SCH ×3 (05:44→17:24)
[2020-03-25] MEDS: ALUM-MAG HYDROXIDE-SIMETHICONE 200-200-20MG/5ML ORAL LIQD 30 ML PO PRN (05:44)
[2020-03-25] MEDS: methylPREDNISolone Sod Succinate 40 MG/1 ML INJ IV SCH ×3 (05:44→21:23)
[2020-03-25 05:54] LABS: Calcium 6.9 mg/dL (8.4-10.2)
[2020-03-25 06:12] LABS: Red Cell Distribution Width 23.9 % (13.2-15.2)
[2020-03-25] MEDS: IPRATROPIUM/ALBUTEROL SULFATE 3 ML AMPUL.NEB IH SCH ×3 (08:39→19:53)
[2020-03-25] MEDS: ASPIRIN EC 81 MG TAB PO SCH (09:05)
[2020-03-25] MEDS: FERROUS SULFATE 325 MG TAB PO SCH ×2 (09:05→14:17)
[2020-03-25] MEDS: ENOXAPARIN 80 MG/0.8 ML INJ SUB-Q SCH ×2 (09:05→21:23)
--- NOTE | 2020-03-25 11:16 | Progress Note ---
Assessment and Plan AE-COPD Afib with RVR Acute hypoxia Moderate protein calorie malnutrition Tobacco use disorder/Nicotine dependence Substance abuse disorder-h/o Cocaine, UDS negative this visit Microcytic anemia HIV-AIDS Continue to wean steroids as tolerated On Cardizem infusion for Afib with RVR, once he i soff Cardizem adn HR is controlled , can whit Cardiac telemtry May benefit from low dose Beta blockers, his UDS was negative for cocaine this visit-defer Cardiology CXR, ABG as clinically indicated Wean supplemental oxygen to keep O2 sats 88-90% ID for ART and HIV management - Continue bronchodilators, HEIDI/CLEMENTE - Continue steroids, start taper in the morning - Continue VTE prophylaxis - Continue Nicotine withdrawal precautions -Smoking cessation counselling, done at the bedside -Accuchecks with glycemic control while on steroids, keep blood glucose <180mg/dL -Chronic home medications -Monitor renal functions and dose medications for CrCL/GFR -Optimize nutritional status -Outpatient pulmonary follow up to evaluate FEV1, optimize pulmonary status Subjective Date of service: 03/25/20 Interval history: Patient seen in follow up for:AE-COPD;Acute hypoxia;Moderate protein calorie malnutrition;Tobacco use disorder/Nicotine dependence Patient seen and examined. Vitals, labs, medications, chart reviewed. Discussed with nursing and respiratory staff; Feeling better, slight cough. Denies any chest pain, no shortness of breath, no fevers, no diarrhea States he stopped Cocaine use, smokes a cigarette occasionally had to go back on Cardizem infusion, his HR remained consistently above 100 Objective - Exam Narrative Exam: General appearance: Present: no acute distress, chronically ill looking - EENT Eyes: Present: PERRL, EOM intact ENT: hearing intact, clear oral mucosa - Respiratory Respiratory effort: normal Respiratory: Continues to have bilateral wheezes in upper middle and lower lobe of the lungs, no rales rhonchi heard - Cardiovascular Rhythm: Irregular rate and rhythm, tachycardia Heart Sounds: Present: S1 & S2. Absent: rub, click - Extremities Extremities: no ischemia, No edema, normal temperature, normal color, Full ROM - Abdominal General gastrointestinal: soft, non-tender, non-distended, normal bowel sounds - Integumentary Integumentary: Present: clear, warm, dry, normal turgor - Neurologic Neurologic: CNII-XII intact, no focal deficits, moves all extremities Vital Signs - 12hr 03/24/20 03/24/20 03/24/20 23:21 23:31 23:39 Temperature Pulse Rate 100 H 123 H 124 H Pulse Rate [ Anterior Bilateral Throughout] Pulse Rate [ From Monitor] Respiratory 26 H 35 H 18 Rate Respiratory Rate [Anterior Bilateral Throughout] Blood Pressure 108/67 108/67 O2 Sat by Pulse 100 95 94 Oximetry 03/24/20 03/24/20 03/24/20 23:41 23:46 23:49 Temperature Pulse Rate 119 H 116 H Pulse Rate [ Anterior Bilateral Throughout] Pulse Rate [ From Monitor] Respiratory 31 H 26 H Rate Respiratory Rate [Anterior Bilateral Throughout] Blood Pressure 108/67 111/63 O2 Sat by Pulse 96 Oximetry 03/24/20 03/25/20 03/25/20 23:51 00:00 00:11 Temperature 98.0 F Pulse Rate 107 H 106 H 119 H Pulse Rate [ Anterior Bilateral Throughout] Pulse Rate [ 106 H From Monitor] Respiratory 25 H 25 H 26 H Rate Respiratory Rate [Anterior Bilateral Throughout] Blood Pressure 111/63 96/58 96/58 O2 Sat by Pulse 100 100 100 Oximetry 03/25/20 03/25/20 03/25/20 00:21 00:30 00:41 Temperature Pulse Rate 97 H 112 H 109 H Pulse Rate [ Anterior Bilateral Throughout] Pulse Rate [ From Monitor] Respiratory 20 25 H 27 H Rate Respiratory Rate [Anterior Bilateral Throughout] Blood Pressure 90/60 99/59 99/59 O2 Sat by Pulse 98 96 97 Oximetry 03/25/20 03/25/20 03/25/20 00:51 01:01 01:11 Temperature Pulse Rate 125 H 113 H 114 H Pulse Rate [ Anterior Bilateral Throughout] Pulse Rate [ From Monitor] Respiratory 31 H 26 H 26 H Rate Respiratory Rate [Anterior Bilateral Throughout] Blood Pressure 120/85 105/66 105/66 O2 Sat by Pulse 100 100 99 Oximetry 03/25/20 03/25/20 03/25/20 01:21 01:31 01:41 Temperature Pulse Rate 114 H 94 H 110 H Pulse Rate [ Anterior Bilateral Throughout] Pulse Rate [ From Monitor] Respiratory 25 H 26 H 27 H Rate Respiratory Rate [Anterior Bilateral Throughout] Blood Pressure 99/67 99/67 103/68 O2 Sat by Pulse 98 98 97 Oximetry 03/25/20 03/25/20 03/25/20 01:51 02:01 02:11 Temperature Pulse Rate 98 H 114 H 118 H Pulse Rate [ Anterior Bilateral Throughout] Pulse Rate [ From Monitor] Respiratory 26 H 24 20 Rate Respiratory Rate [Anterior Bilateral Throughout] Blood Pressure 79/46 79/46 107/72 O2 Sat by Pulse 92 93 93 Oximetry 03/25/20 03/25/20 03/25/20 02:21 02:31 02:41 Temperature Pulse Rate 104 H 96 H 121 H Pulse Rate [ Anterior Bilateral Throughout] Pulse Rate [ From Monitor] Respiratory 24 27 H 27 H Rate Respiratory Rate [Anterior Bilateral Throughout] Blood Pressure 111/78 111/78 106/73 O2 Sat by Pulse 100 98 96 Oximetry 03/25/20 03/25/20 03/25/20 02:51 03:01 03:11 Temperature Pulse Rate 109 H 106 H 115 H Pulse Rate [ Anterior Bilateral Throughout] Pulse Rate [ From Monitor] Respiratory 13 24 30 H Rate Respiratory Rate [Anterior Bilateral Throughout] Blood Pressure 89/66 100/70 100/70 O2 Sat by Pulse 93 93 92 Oximetry 03/25/20 03/25/20 03/25/20 03:21 03:31 03:41 Temperature Pulse Rate 126 H 104 H 110 H Pulse Rate [ Anterior Bilateral Throughout] Pulse Rate [ From Monitor] Respiratory 24 18 22 Rate Respiratory Rate [Anterior Bilateral Throughout] Blood Pressure 99/77 99/77 O2 Sat by Pulse 92 99 99 Oximetry 03/25/20 03/25/20 03/25/20 03:51 03:58 04:00 Temperature 97.9 F Pulse Rate 92 H 95 H Pulse Rate [ Anterior Bilateral Throughout] Pulse Rate [ 95 H From Monitor] Respiratory 23 22 Rate Respiratory Rate [Anterior Bilateral Throughout] Blood Pressure O2 Sat by Pulse 98 99 Oximetry 03/25/20 03/25/20 03/25/20 04:01 04:11 04:20 Temperature Pulse Rate 95 H 107 H 111 H Pulse Rate [ Anterior Bilateral Throughout] Pulse Rate [ From Monitor] Respiratory 22 15 27 H Rate Respiratory Rate [Anterior Bilateral Throughout] Blood Pressure 53/34 108/70 O2 Sat by Pulse 99 99 95 Oximetry 03/25/20 03/25/20 03/25/20 04:31 04:41 04:51 Temperature Pulse Rate 108 H 101 H 102 H Pulse Rate [ Anterior Bilateral Throughout] Pulse Rate [ From Monitor] Respiratory 24 25 H 26 H Rate Respiratory Rate [Anterior Bilateral Throughout] Blood Pressure 69/40 69/40 122/89 O2 Sat by Pulse 99 99 94 Oximetry 03/25/20 03/25/20 03/25/20 05:01 05:11 05:21 Temperature Pulse Rate 120 H 102 H 99 H Pulse Rate [ Anterior Bilateral Throughout] Pulse Rate [ From Monitor] Respiratory 24 21 25 H Rate Respiratory Rate [Anterior Bilateral Throughout] Blood Pressure 114/92 114/92 114/92 O2 Sat by Pulse 94 93 93 Oximetry 03/25/20 03/25/20 03/25/20 05:31 05:41 05:44 Temperature Pulse Rate 92 H 114 H 82 Pulse Rate [ Anterior Bilateral Throughout] Pulse Rate [ From Monitor] Respiratory 11 L 19 Rate Respiratory Rate [Anterior Bilateral Throughout] Blood Pressure 114/92 110/76 110/76 O2 Sat by Pulse 100 94 Oximetry 03/25/20 03/25/20 03/25/20 05:51 06:00 06:11 Temperature Pulse Rate 102 H 101 H 106 H Pulse Rate [ Anterior Bilateral Throughout] Pulse Rate [ From Monitor] Respiratory 26 H 28 H 22 Rate Respiratory Rate [Anterior Bilateral Throughout] Blood Pressure 131/88 131/88 113/63 O2 Sat by Pulse 95 93 91 Oximetry 03/25/20 03/25/20 03/25/20 06:21 06:31 06:41 Temperature Pulse Rate 113 H 91 H 90 Pulse Rate [ Anterior Bilateral Throughout] Pulse Rate [ From Monitor] Respiratory 17 24 16 Rate Respiratory Rate [Anterior Bilateral Throughout] Blood Pressure 121/88 121/88 113/63 O2 Sat by Pulse 90 95 97 Oximetry 03/25/20 03/25/20 03/25/20 06:51 07:00 07:11 Temperature Pulse Rate 94 H 115 H 93 H Pulse Rate [ Anterior Bilateral Throughout] Pulse Rate [ From Monitor] Respiratory 18 13 22 Rate Respiratory Rate [Anterior Bilateral Throughout] Blood Pressure 109/73 104/70 104/70 O2 Sat by Pulse 98 94 94 Oximetry 03/25/20 03/25/20 03/25/20 07:21 07:31 07:41 Temperature Pulse Rate 102 H 89 99 H Pulse Rate [ Anterior Bilateral Throughout] Pulse Rate [ From Monitor] Respiratory 21 25 H 14 Rate Respiratory Rate [Anterior Bilateral Throughout] Blood Pressure 71/49 120/86 120/86 O2 Sat by Pulse 93 92 97 Oximetry 03/25/20 03/25/20 03/25/20 07:51 08:00 08:11 Temperature 97.8 F Pulse Rate 104 H 91 H 95 H Pulse Rate [ Anterior Bilateral Throughout] Pulse Rate [ 91 H From Monitor] Respiratory 43 H 27 H 20 Rate Respiratory Rate [Anterior Bilateral Throughout] Blood Pressure 66/36 122/64 O2 Sat by Pulse 86 92 93 Oximetry 03/25/20 03/25/20 03/25/20 08:21 08:31 08:39 Temperature Pulse Rate 129 H 115 H Pulse Rate [ 100 H Anterior Bilateral Throughout] Pulse Rate [ From Monitor] Respiratory 37 H 39 H Rate Respiratory 26 H Rate [Anterior Bilateral Throughout] Blood Pressure 127/71 127/71 O2 Sat by Pulse 96 98 Oximetry 03/25/20 03/25/20 03/25/20 08:41 08:45 08:51 Temperature Pulse Rate 94 H 122 H Pulse Rate [ Anterior Bilateral Throughout] Pulse Rate [ From Monitor] Respiratory 28 H 18 Rate Respiratory Rate [Anterior Bilateral Throughout] Blood Pressure 127/71 103/53 O2 Sat by Pulse 97 95 100 Oximetry 03/25/20 03/25/20 03/25/20 09:01 09:11 09:21 Temperature Pulse Rate 112 H 107 H 114 H Pulse Rate [ Anterior Bilateral Throughout] Pulse Rate [ From Monitor] Respiratory 28 H 27 H 26 H Rate Respiratory Rate [Anterior Bilateral Throughout] Blood Pressure 106/64 106/64 105/64 O2 Sat by Pulse 97 94 94 Oximetry 03/25/20 03/25/20 03/25/20 09:31 09:41 09:51 Temperature Pulse Rate 117 H 106 H 107 H Pulse Rate [ Anterior Bilateral Throughout] Pulse Rate [ From Monitor] Respiratory 27 H 27 H 24 Rate Respiratory Rate [Anterior Bilateral Throughout] Blood Pressure 103/53 67/52 103/71 O2 Sat by Pulse 93 91 Oximetry 03/25/20 03/25/20 03/25/20 10:01 10:11 10:21 Temperature Pulse Rate 121 H 116 H 98 H Pulse Rate [ Anterior Bilateral Throughout] Pulse Rate [ From Monitor] Respiratory 28 H 29 H 29 H Rate Respiratory Rate [Anterior Bilateral Throughout] Blood Pressure 101/63 101/63 117/67 O2 Sat by Pulse 92 88 89 Oximetry 03/25/20 03/25/20 03/25/20 10:31 10:41 10:51 Temperature Pulse Rate 123 H 106 H Pulse Rate [ Anterior Bilateral Throughout] Pulse Rate [ From Monitor] Respiratory 25 H 26 H Rate Respiratory Rate [Anterior Bilateral Throughout] Blood Pressure 102/67 102/67 120/69 O2 Sat by Pulse 90 89 95 Oximetry 03/25/20 11:01 Temperature Pulse Rate 122 H Pulse Rate [ Anterior Bilateral Throughout] Pulse Rate [ From Monitor] Respiratory 27 H Rate Respiratory Rate [Anterior Bilateral Throughout] Blood Pressure 117/72 O2 Sat by Pulse 90 Oximetry CBC and BMP: 03/27/20 06:47 03/27/20 06:47 ABG, PT/INR, D-dimer: PT/INR, D-dimer PT 14.4 Sec. (12.2-14.9) 03/23/20 05:35 INR 1.13 (0.87-1.13) 03/23/20 05:35 Abnormal lab findings: Abnormal Labs 03/22/20 03/22/20 03/23/20 14:42 14:42 05:35 WBC 17.0 H Hgb 10.1 L 8.6 L Hct 33.8 L 27.4 L D MCV 73 L 71 L MCH 22 L 22 L MCHC 30 L 31 L RDW 23.7 H 23.5 H Seg Neuts % (Manual) 77.0 H 99.0 H Monocytes % (Manual) 8.0 H Seg Neutrophils # Man 13.1 H 8.6 H Lymphocytes # (Manual) 0.0 L Monocytes # (Manual) 1.4 H Chloride 97.8 L Carbon Dioxide 38 H BUN 32 H Creatinine Glucose 117 H Calcium 6.9 L Albumin 3.7 L 03/23/20 03/25/20 03/25/20 05:35 04:24 04:24 WBC 15.5 H Hgb 9.0 L Hct 29.3 L MCV 73 L MCH 22 L MCHC 31 L RDW 23.9 H Seg Neuts % (Manual) Monocytes % (Manual) Seg Neutrophils # Man Lymphocytes # (Manual) Monocytes # (Manual) Chloride 96.4 L Carbon Dioxide 35 H 32 H BUN 32 H 43 H Creatinine 1.4 H Glucose 229 H 223 H Calcium 6.4 L 6.9 L Albumin Chest x-ray: image reviewed Allied health notes reviewed: nursing
--- NOTE | 2020-03-25 11:46 | Progress Note ---
Assessment and Plan Assessment and plan: 64-year-old male with past medical history as above who presents with acute dyspnea secondary to COPD exacerbation. Plan: Acute COPD exacerbation Pulmonology consulted Solu-Medrol Breathing treatments, Levaquin antibiotics Atrial fibrillation with RVR Cardiology consulted Cardizem drip as needed Transition to p.o. Cardizem Patient started on Lovenox HIV infection, chronic CD4 is unknown Patient follow-up with his infectious disease physician in the outpatient setting Hypertension We will start patient on amlodipine, patient's home medication Continue to monitor Chronic microcytic anemia Etiology unknown, possibly secondary to HIV infection Continue to monitor, consider iron supplementation. Steroid-induced hyperglycemia Continue to monitor Hypocalcemia Replete as needed CODE STATUS: Full DVT prophylaxis: Heparin Disposition: Continue hospitalization care History Interval history: Patient continues have shortness of breath. No fevers or chills. Spoke with the nurse at the bedside, patient continues to be in A. fib RVR, Cardizem drip and Cardizem p.o. administered. Hospitalist Physical - Physical exam Narrative exam: General appearance: Present: no acute distress, well-nourished - EENT Eyes: Present: PERRL, EOM intact ENT: hearing intact, clear oral mucosa - Respiratory Respiratory effort: normal Respiratory: Bilateral wheezes heard, no crackles or rhonchi heard - Cardiovascular Rhythm: Irregular rate and rhythm Heart Sounds: Present: S1 & S2. Absent: rub, click - Extremities Extremities: no ischemia, No edema, normal temperature, normal color, Full ROM - Abdominal General gastrointestinal: soft, non-tender, non-distended, normal bowel sounds - Integumentary Integumentary: Present: clear, warm, dry, normal turgor - Neurologic Neurologic: CNII-XII intact, no focal deficits, moves all extremities - Constitutional Vitals: Temp Pulse Resp BP Pulse Ox 97.8 F 122 H 27 H 117/72 90 03/25/20 08:00 03/25/20 11:01 03/25/20 11:01 03/25/20 11:01 03/25/20 11:01 General appearance: Present: no acute distress HEART Score - HEART Score Troponin: Troponin T < 0.010 ng/mL (0.00-0.029) 03/22/20 16:07 Results - Labs CBC & Chem 7: 03/25/20 04:24 03/25/20 04:24 Labs: Laboratory Last Values WBC 15.5 K/mm3 (4.5-11.0) H 03/25/20 04:24 RBC 4.03 M/mm3 (3.65-5.03) 03/25/20 04:24 Hgb 9.0 gm/dl (11.8-15.2) L 03/25/20 04:24 Hct 29.3 % (35.5-45.6) L 03/25/20 04:24 MCV 73 fl (84-94) L 03/25/20 04:24 MCH 22 pg (28-32) L 03/25/20 04:24 MCHC 31 % (32-34) L 03/25/20 04:24 RDW 23.9 % (13.2-15.2) H 03/25/20 04:24 Plt Count 321 K/mm3 (140-440) 03/25/20 04:24 Add Manual Diff Complete 03/23/20 05:35 Total Counted 100 03/23/20 05:35 Seg Neutrophils % Breaker Operator 03/23/20 05:35 Seg Neuts % (Manual) 99.0 % (40.0-70.0) H 03/23/20 05:35 Lymphocytes % (Manual) 15.0 % (13.4-35.0) 03/22/20 14:42 Monocytes % (Manual) 1.0 % (0.0-7.3) 03/23/20 05:35 Nucleated RBC % Not Reportable 03/23/20 05:35 Seg Neutrophils # Man 8.6 K/mm3 (1.8-7.7) H 03/23/20 05:35 Band Neutrophils # 0.0 K/mm3 03/23/20 05:35 Lymphocytes # (Manual) 0.0 K/mm3 (1.2-5.4) L 03/23/20 05:35 Abs React Lymphs (Man) 0.0 K/mm3 03/23/20 05:35 Monocytes # (Manual) 0.1 K/mm3 (0.0-0.8) 03/23/20 05:35 Eosinophils # (Manual) 0.0 K/mm3 (0.0-0.4) 03/23/20 05:35 Basophils # (Manual) 0.0 K/mm3 (0.0-0.1) 03/23/20 05:35 Metamyelocytes # 0.0 K/mm3 03/23/20 05:35 Myelocytes # 0.0 K/mm3 03/23/20 05:35 Promyelocytes # 0.0 K/mm3 03/23/20 05:35 Blast Cells # 0.0 K/mm3 03/23/20 05:35 WBC Morphology Not Reportable 03/23/20 05:35 Hypersegmented Neuts Not Reportable 03/23/20 05:35 Hyposegmented Neuts Not Reportable 03/23/20 05:35 Hypogranular Neuts Not Reportable 03/23/20 05:35 Smudge Cells Not Reportable 03/23/20 05:35 Toxic Granulation Not Reportable 03/23/20 05:35 Toxic Vacuolation Not Reportable 03/23/20 05:35 Dohle Bodies Not Reportable 03/23/20 05:35 Pelger-Huet Anomaly Not Reportable 03/23/20 05:35 Ruma Rods Not Reportable 03/23/20 05:35 Platelet Estimate Consistent w auto 03/23/20 05:35 Clumped Platelets Not Reportable 03/23/20 05:35 Plt Clumps, EDTA Not Reportable 03/23/20 05:35 Large Platelets Not Reportable 03/23/20 05:35 Giant Platelets Not Reportable 03/23/20 05:35 Platelet Satelliting Not Reportable 03/23/20 05:35 Plt Morphology Comment Not Reportable 03/23/20 05:35 RBC Morphology Not Reportable 03/23/20 05:35 Dimorphic RBCs Not Reportable 03/23/20 05:35 Polychromasia Not Reportable 03/23/20 05:35 Hypochromasia 2+ 03/23/20 05:35 Poikilocytosis 1+ 03/23/20 05:35 Anisocytosis 2+ 03/23/20 05:35 Microcytosis Not Reportable 03/23/20 05:35 Macrocytosis Not Reportable 03/23/20 05:35 Spherocytes Not Reportable 03/23/20 05:35 Pappenheimer Bodies Not Reportable 03/23/20 05:35 Sickle Cells Not Reportable 03/23/20 05:35 Target Cells Not Reportable 03/23/20 05:35 Tear Drop Cells Few 03/23/20 05:35 Ovalocytes 1+ 03/23/20 05:35 Helmet Cells Not Reportable 03/23/20 05:35 David-[place] Bodies Not Reportable 03/23/20 05:35 [place] Rings Not Reportable 03/23/20 05:35 Don Cells Not Reportable 03/23/20 05:35 Bite Cells Not Reportable 03/23/20 05:35 Crenated Cell Not Reportable 03/23/20 05:35 Elliptocytes Few 03/23/20 05:35 Acanthocytes (Spur) Not Reportable 03/23/20 05:35 Rouleaux Not Reportable 03/23/20 05:35 Hemoglobin C Crystals Not Reportable 03/23/20 05:35 Schistocytes Not Reportable 03/23/20 05:35 Malaria parasites Not Reportable 03/23/20 05:35 Ric Bodies Not Reportable 03/23/20 05:35 Hem Pathologist Commnt No 03/23/20 05:35 PT 14.4 Sec. (12.2-14.9) 03/23/20 05:35 INR 1.13 (0.87-1.13) 03/23/20 05:35 Sodium 142 mmol/L (137-145) 03/25/20 04:24 Potassium 4.3 mmol/L (3.6-5.0) 03/25/20 04:24 Chloride 96.4 mmol/L (98-107) L 03/25/20 04:24 Carbon Dioxide 32 mmol/L (22-30) H 03/25/20 04:24 Anion Gap 18 mmol/L 03/25/20 04:24 BUN 43 mg/dL (9-20) H 03/25/20 04:24 Creatinine 1.4 mg/dL (0.8-1.3) H 03/25/20 04:24 Estimated GFR 51 ml/min 03/25/20 04:24 BUN/Creatinine Ratio 31 % 03/25/20 04:24 Glucose 223 mg/dL (75-100) H 03/25/20 04:24 Lactic Acid 1.50 mmol/L (0.7-2.0) 03/22/20 16:07 Calcium 6.9 mg/dL (8.4-10.2) L 03/25/20 04:24 Total Bilirubin 0.40 mg/dL (0.1-1.2) 03/22/20 14:42 AST 16 units/L (5-40) 03/22/20 14:42 ALT 32 units/L (7-56) 03/22/20 14:42 Alkaline Phosphatase 62 units/L (35-129) 03/22/20 14:42 Troponin T < 0.010 ng/mL (0.00-0.029) 03/22/20 16:07 Total Protein 7.0 g/dL (6.3-8.2) 03/22/20 14:42 Albumin 3.7 g/dL (3.9-5) L 03/22/20 14:42 Albumin/Globulin Ratio 1.1 % 03/22/20 14:42 Urine Color Yellow (Yellow) 03/23/20 Unknown Urine Turbidity Clear (Clear) 03/23/20 Unknown Urine pH 5.0 (5.0-7.0) 03/23/20 Unknown Ur Specific [place] 1.015 (1.003-1.030) 03/23/20 Unknown Urine Protein 100 mg/dl mg/dL (Negative) 03/23/20 Unknown Urine Glucose (UA) >=500 mg/dL (Negative) 03/23/20 Unknown Urine Ketones Neg mg/dL (Negative) 03/23/20 Unknown Urine Blood Neg (Negative) 03/23/20 Unknown Urine Nitrite Neg (Negative) 03/23/20 Unknown Urine Bilirubin Neg (Negative) 03/23/20 Unknown Urine Urobilinogen < 2.0 mg/dL (<2.0) 03/23/20 Unknown Ur Leukocyte Esterase Neg (Negative) 03/23/20 Unknown Urine WBC (Auto) 2.0 /HPF (0.0-6.0) 03/23/20 Unknown Urine RBC (Auto) < 1.0 /HPF (0.0-6.0) 03/23/20 Unknown Urine Mucus Few /HPF 03/23/20 Unknown Urine Opiates Screen Negative 03/23/20 Unknown Urine Methadone Screen Negative 03/23/20 Unknown Ur Barbiturates Screen Negative 03/23/20 Unknown Ur Phencyclidine Scrn Negative 03/23/20 Unknown Ur Amphetamines Screen Negative 03/23/20 Unknown U Benzodiazepines Scrn Negative 03/23/20 Unknown Urine Cocaine Screen Negative 03/23/20 Unknown U Marijuana (THC) Screen Negative 03/23/20 Unknown Drugs of Abuse Note Disclamer 03/23/20 Unknown Microbiology: Microbiology 03/22/20 18:07 Peripheral/Venous Blood Culture - Preliminary NO GROWTH AFTER 48 HOURS 03/22/20 17:54 Peripheral/Venous Blood Culture - Preliminary NO GROWTH AFTER 48 HOURS [place]/IV: Voiding Method Urinal IV Catheter Type [Left Hand] Peripheral IV IV Catheter Type [Right Hand] INT / Saline Lock Active Medications - Current Medications Current Medications: Generic Name Dose Route Start Last Admin Trade Name Freq PRN Reason Stop Dose Admin Acetaminophen 650 mg 03/22/20 18:22 03/23/20 10:54 Acetaminophen 325 Mg Tab PO 650 mg Q4H PRN Administration Pain MILD(1-3)/Fever >100.5/KOENIG Al Hydrox/Mg Hydrox/Simethicone 30 ml 03/24/20 00:36 03/25/20 05:44 Alum-Mag Hydroxide-Simethicone [phone]/5ml Oral Liqd 30 Ml PO 30 ml Q6H PRN Administration Indigestion Albuterol 2.5 mg 03/23/20 20:07 Albuterol 2.5 Mg/3 Ml Nebu IH Q4HRT PRN Shortness Of Breath Albuterol/Ipratropium 1 ampul 03/24/20 08:00 03/25/20 08:39 Ipratropium/Albuterol Sulfate 3 Ml Ampul.Neb IH 1 ampul TIDRT NADIA Administration Aspirin 81 mg 03/24/20 10:00 03/25/20 09:05 Aspirin Ec 81 Mg Tab PO 81 mg QDAY NADIA Administration Atorvastatin Calcium 40 mg 03/24/20 22:00 03/24/20 21:00 Atorvastatin 40 Mg Tab PO 40 mg QHS NADIA Administration Budesonide 0.5 mg 03/25/20 11:15 Budesonide 0.5 Mg/2 Ml Nebu IH Q12HRT NADIA Clonazepam 1 mg 03/24/20 22:00 03/24/20 21:00 Clonazepam 0.5 Mg Tab PO 1 mg QHS NADIA Administration Diltiazem HCl 60 mg 03/24/20 15:56 03/25/20 05:44 Diltiazem 60 Mg Tab PO 60 mg Q6HR NADIA Administration Enoxaparin Sodium 70 mg 03/24/20 22:00 03/25/20 09:05 Enoxaparin 80 Mg/0.8 Ml Inj SUB-Q 70 mg Q12HR NADIA Administration Protocol Ferrous Sulfate 325 mg 03/23/20 20:00 03/25/20 09:05 Ferrous Sulfate 325 Mg Tab PO 325 mg TID NADIA Administration Levofloxacin/Dextrose 750 mg in 150 mls @ 100 mls/hr 03/23/20 17:00 03/24/20 18:00 Levaquin 750mg/150ml IV 100 mls/hr Q24H NADIA Administration Protocol Diltiazem HCl 100 mg in 100 mls @ 5 mls/hr 03/23/20 23:45 03/24/20 23:44 Cardizem/D5w 100mg/100ml IV 5 mg/hr TITR NADIA 5 mls/hr Titration Protocol 5 MG/HR Ipratropium [place] 0.5 mg 03/25/20 14:00 Ipratropium 0.02% Nebu 2.5 Ml IH Q6HRT [facility] Magnesium Hydroxide 30 ml 03/22/20 18:22 Magnesium Hydroxide (Mom) Oral Liqd Udc PO Q4H PRN Constipation Methylprednisolone Sodium Succinate 40 mg 03/22/20 22:00 03/25/20 05:44 Methylprednisolone Sod Succinate 40 Mg/1 Ml Inj IV 40 mg Q8HR NADIA Administration Morphine Sulfate 2 mg 03/22/20 18:22 03/24/20 23:49 Morphine 2 Mg/1 Ml Inj IV 2 mg Q4H PRN Administration Pain, Moderate (4-6) Ondansetron HCl 4 mg 03/22/20 18:22 Ondansetron 4 Mg/2 Ml Inj IV Q8H PRN Nausea And Vomiting Sodium Chloride 10 ml 03/22/20 22:00 03/25/20 09:05 Sodium Chloride 0.9% 10 Ml Flush Syringe IV 10 ml BID NADIA Administration Sodium Chloride 10 ml 03/22/20 18:22 Sodium Chloride 0.9% 10 Ml Flush Syringe IV PRN PRN LINE FLUSH
--- NOTE | 2020-03-25 14:06 | Progress Note ---
Assessment and Plan Atrial fibrillation with RVR Acute COPD exacerbation Hypertension Chronic anemia HIV infection History of pulmonary embolus Nonobstructive CAD Polysubstance abuse (tobacco/cocaine) [facility] 09/15/2019: showed mild nonobstructive CAD (25% mid RCA), EF 55-60%. Stress MPI 08/24/2019: was negative. tte 06/2019: showed EF 60-65%, impaired relaxation. Telemetry today suggests sinus rhythm. Agree with transitioning to p.o. Cardizem Issues in the past with compliance decided not a good oral anticoagulation candidate Subjective Date of service: 03/25/20 Principal diagnosis: Atrial fibrillation with RVR Interval history: Patient lying in bed and states that he feels somewhat better Objective Vital Signs Temp Pulse Pulse Pulse Resp Resp BP 03/25/20 12:31 112 H 117/67 03/25/20 11:01 122 H 27 H 117/72 03/25/20 10:51 106 H 26 H 120/69 03/25/20 10:41 102/67 03/25/20 10:31 123 H 25 H 102/67 03/25/20 10:21 98 H 29 H 117/67 03/25/20 10:11 116 H 29 H 101/63 03/25/20 10:01 121 H 28 H 101/63 03/25/20 09:51 107 H 24 103/71 03/25/20 09:41 106 H 27 H 67/52 03/25/20 09:31 117 H 27 H 103/53 03/25/20 09:21 114 H 26 H 105/64 03/25/20 09:11 107 H 27 H 106/64 03/25/20 09:01 112 H 28 H 106/64 03/25/20 08:51 122 H 18 103/53 03/25/20 08:45 03/25/20 08:41 94 H 28 H 127/71 03/25/20 08:39 100 H 26 H 03/25/20 08:31 115 H 39 H 127/71 03/25/20 08:21 129 H 37 H 127/71 03/25/20 08:11 95 H 20 03/25/20 08:00 97.8 F 91 H 91 H 27 H 122/64 03/25/20 07:51 104 H 43 H 66/36 03/25/20 07:41 99 H 14 120/86 03/25/20 07:31 89 25 H 120/86 03/25/20 07:21 102 H 21 71/49 03/25/20 07:11 93 H 22 104/70 03/25/20 07:00 115 H 13 104/70 03/25/20 06:51 94 H 18 109/73 03/25/20 06:41 90 16 113/63 03/25/20 06:31 91 H 24 121/88 03/25/20 06:21 113 H 17 121/88 03/25/20 06:11 106 H 22 113/63 03/25/20 06:00 101 H 28 H 131/88 03/25/20 05:51 102 H 26 H 131/88 03/25/20 05:44 82 110/76 03/25/20 05:41 114 H 19 110/76 03/25/20 05:31 92 H 11 L 114/92 03/25/20 05:21 99 H 25 H 114/92 03/25/20 05:11 102 H 21 114/92 03/25/20 05:01 120 H 24 114/92 03/25/20 04:51 102 H 26 H 122/89 03/25/20 04:41 101 H 25 H 69/40 03/25/20 04:31 108 H 24 69/40 03/25/20 04:20 111 H 27 H 108/70 03/25/20 04:11 107 H 15 53/34 03/25/20 04:01 95 H 22 03/25/20 04:00 95 H 95 H 22 03/25/20 03:58 97.9 F 03/25/20 03:51 92 H 23 03/25/20 03:41 110 H 22 03/25/20 03:31 104 H 18 99/77 03/25/20 03:21 126 H 24 99/77 03/25/20 03:11 115 H 30 H 100/70 03/25/20 03:01 106 H 24 100/70 03/25/20 02:51 109 H 13 89/66 03/25/20 02:41 121 H 27 H 106/73 03/25/20 02:31 96 H 27 H 111/78 03/25/20 02:21 104 H 24 111/78 03/25/20 02:11 118 H 20 107/72 01/30/21 02:01 114 H 24 79/46 03/25/20 01:51 98 H 26 H 79/46 03/25/20 01:41 110 H 27 H 103/68 03/25/20 01:31 94 H 26 H 99/67 03/25/20 01:21 114 H 25 H 99/67 03/25/20 01:11 114 H 26 H 105/66 03/25/20 01:01 113 H 26 H 105/66 03/25/20 00:51 125 H 31 H 120/85 03/25/20 00:41 109 H 27 H 99/59 03/25/20 00:30 112 H 25 H 99/59 03/25/20 00:21 97 H 20 90/60 03/25/20 00:11 119 H 26 H 96/58 03/25/20 00:00 98.0 F 106 H 106 H 25 H 96/58 03/24/20 23:51 107 H 25 H 111/63 03/24/20 23:49 26 H 03/24/20 23:46 116 H 111/63 03/24/20 23:41 119 H 31 H 108/67 03/24/20 23:39 124 H 18 108/67 03/24/20 23:31 123 H 35 H 108/67 03/24/20 23:21 100 H 26 H 03/24/20 23:11 90 26 H 87/52 03/24/20 23:01 99 H 26 H 87/52 03/24/20 22:51 107 H 18 89/47 03/24/20 22:41 95 H 24 95/55 03/24/20 22:30 94 H 16 95/55 03/24/20 22:21 89 16 93/57 03/24/20 22:11 100 H 28 H 91/50 03/24/20 22:00 89 19 91/50 03/24/20 21:51 84 26 H 83/48 03/24/20 21:41 101 H 26 H 94/49 03/24/20 21:30 80 25 H 94/49 03/24/20 21:21 96 H 24 102/49 03/24/20 21:11 103 H 32 H 107/70 03/24/20 21:01 107 H 25 H 107/70 03/24/20 20:51 20 99/69 03/24/20 20:49 03/24/20 20:47 83 20 03/24/20 20:41 92 H 18 107/62 03/24/20 20:31 80 22 107/62 03/24/20 20:21 87 22 97/54 03/24/20 20:11 95 H 25 H 103/81 03/24/20 20:00 98.3 F 116 H 116 H 21 103/81 03/24/20 19:51 123 H 32 H 121/77 03/24/20 19:41 106 H 28 H 121/77 03/24/20 19:31 139 H 26 H 123/77 03/24/20 19:21 113 H 35 H 66/38 03/24/20 19:11 125 H 22 120/85 03/24/20 19:01 119 H 22 100/65 03/24/20 18:51 103 H 28 H 100/65 03/24/20 18:41 100 H 24 99/57 03/24/20 18:31 106 H 24 97/54 03/24/20 18:21 113 H 22 97/54 03/24/20 18:11 108 H 21 101/65 03/24/20 18:00 119 H 25 H 101/65 03/24/20 17:51 125 H 23 97/54 03/24/20 17:41 134 H 17 111/81 03/24/20 17:30 124 H 23 111/81 03/24/20 17:21 132 H 26 H 112/81 03/24/20 17:11 129 H 32 H 125/75 03/24/20 17:00 146 H 22 125/75 03/24/20 16:51 147 H 19 124/94 03/24/20 16:41 144 H 17 128/86 03/24/20 16:30 117 H 23 128/86 03/24/20 16:21 151 H 26 H 137/79 03/24/20 16:15 157 H 112/70 03/24/20 16:11 143 H 26 H 112/70 03/24/20 16:01 113 H 28 H 112/70 03/24/20 16:00 98.2 F 124 H 113 H 28 H 03/24/20 15:51 123 H 25 H 120/69 03/24/20 15:41 120 H 24 101/67 03/24/20 15:31 109 H 23 117/79 03/24/20 15:21 112 H 18 117/79 03/24/20 15:11 144 H 21 129/81 03/24/20 15:01 132 H 29 H 139/80 03/24/20 14:51 139/80 03/24/20 14:41 141 H 27 H 143/112 03/24/20 14:31 124 H 27 H 130/88 03/24/20 14:21 139 H 24 130/88 03/24/20 14:11 133 H 29 H 109/75 Pulse Ox 03/25/20 12:31 03/25/20 11:01 90 03/25/20 10:51 95 03/25/20 10:41 89 03/25/20 10:31 90 03/25/20 10:21 89 03/25/20 10:11 88 03/25/20 10:01 92 03/25/20 09:51 91 03/25/20 09:41 93 03/25/20 09:31 03/25/20 09:21 94 03/25/20 09:11 94 03/25/20 09:01 97 03/25/20 08:51 100 03/25/20 08:45 95 03/25/20 08:41 97 03/25/20 08:39 03/25/20 08:31 98 03/25/20 08:21 96 03/25/20 08:11 93 03/25/20 08:00 92 03/25/20 07:51 86 03/25/20 07:41 97 03/25/20 07:31 92 03/25/20 07:21 93 03/25/20 07:11 94 03/25/20 07:00 94 03/25/20 06:51 98 03/25/20 06:41 97 03/25/20 06:31 95 03/25/20 06:21 90 03/25/20 06:11 91 03/25/20 06:00 93 03/25/20 05:51 95 03/25/20 05:44 03/25/20 05:41 94 03/25/20 05:31 100 03/25/20 05:21 93 03/25/20 05:11 93 03/25/20 05:01 94 03/25/20 04:51 94 03/25/20 04:41 99 03/25/20 04:31 99 03/25/20 04:20 95 03/25/20 04:11 99 03/25/20 04:01 99 03/25/20 04:00 99 03/25/20 03:58 03/25/20 03:51 98 03/25/20 03:41 99 03/25/20 03:31 99 03/25/20 03:21 92 03/25/20 03:11 92 03/25/20 03:01 93 03/25/20 02:51 93 03/25/20 02:41 96 03/25/20 02:31 98 03/25/20 02:21 100 03/25/20 02:11 93 03/25/20 02:01 93 03/25/20 01:51 92 03/25/20 01:41 97 03/25/20 01:31 98 03/25/20 01:21 98 03/25/20 01:11 99 03/25/20 01:01 100 03/25/20 00:51 100 03/25/20 00:41 97 03/25/20 00:30 96 03/25/20 00:21 98 03/25/20 00:11 100 03/25/20 00:00 100 03/24/20 23:51 100 03/24/20 23:49 03/24/20 23:46 03/24/20 23:41 96 03/24/20 23:39 94 03/24/20 23:31 95 03/24/20 23:21 100 03/24/20 23:11 98 03/24/20 23:01 97 03/24/20 22:51 90 03/24/20 22:41 92 03/24/20 22:30 91 03/24/20 22:21 92 03/24/20 22:11 94 03/24/20 22:00 96 03/24/20 21:51 95 03/24/20 21:41 99 03/24/20 21:30 98 03/24/20 21:21 99 03/24/20 21:11 99 03/24/20 21:01 98 03/24/20 20:51 98 03/24/20 20:49 99 03/24/20 20:47 03/24/20 20:41 100 03/24/20 20:31 100 03/24/20 20:21 100 03/24/20 20:11 100 03/24/20 20:00 100 03/24/20 19:51 99 03/24/20 19:41 100 03/24/20 19:31 100 03/24/20 19:21 100 03/24/20 19:11 97 03/24/20 19:01 99 03/24/20 18:51 96 03/24/20 18:41 99 03/24/20 18:31 100 03/24/20 18:21 100 03/24/20 18:11 100 03/24/20 18:00 100 03/24/20 17:51 100 03/24/20 17:41 100 03/24/20 17:30 100 03/24/20 17:21 99 03/24/20 17:11 98 03/24/20 17:00 93 03/24/20 16:51 94 03/24/20 16:41 99 03/24/20 16:30 100 03/24/20 16:21 97 03/24/20 16:15 03/24/20 16:11 95 03/24/20 16:01 94 03/24/20 16:00 94 03/24/20 15:51 96 03/24/20 15:41 98 03/24/20 15:31 100 03/24/20 15:21 100 03/24/20 15:11 100 03/24/20 15:01 100 03/24/20 14:51 100 03/24/20 14:41 100 03/24/20 14:31 100 03/24/20 14:21 98 03/24/20 14:11 95 - Physical Examination HEENT: Positive: PERRL, Normocephaly, Mucus Membranes Moist Neck: Positive: neck supple, trachea midline Cardiac: Positive: Reg Rate and Rhythm Lungs: Positive: Decreased Breath Sounds Neuro: Positive: Grossly Intact Abdomen: Negative: Tender Skin: Negative: Rash Musculoskeletal: No Pain Extremities: Absent: edema - Labs and Meds CBC 03/25/20 Range/Units 04:24 WBC 15.5 H (4.5-11.0) K/mm3 RBC 4.03 (3.65-5.03) M/mm3 Hgb 9.0 L (11.8-15.2) gm/dl Hct 29.3 L (35.5-45.6) % Plt Count 321 (140-440) K/mm3 Comprehensive Metabolic Panel 03/25/20 Range/Units 04:24 Sodium 142 (137-145) mmol/L Potassium 4.3 (3.6-5.0) mmol/L Chloride 96.4 L (98-107) mmol/L Carbon Dioxide 32 H (22-30) mmol/L BUN 43 H (9-20) mg/dL Creatinine 1.4 H (0.8-1.3) mg/dL Glucose 223 H (75-100) mg/dL Calcium 6.9 L (8.4-10.2) mg/dL - Imaging and Cardiology EKG: report reviewed, image reviewed Echo: report reviewed (06/2019 showed EF 60-65%, impaired relaxation. ) Cardiac cath: report reviewed (09/15/2019 showed mild nonobstructive CAD (25% mid RCA), EF 55-60%. )
[2020-03-25] MEDS: IPRATROPIUM 0.02% NEBU 2.5 ML IH SCH ×2 (14:30→19:56)
[2020-03-25] MEDS: ACETAMINOPHEN 325 MG TAB PO PRN (16:13)
[2020-03-25] MEDS: BUDESONIDE 0.5 MG/2 ML NEBU IH SCH (19:52)
[2020-03-25] MEDS: clonazePAM 0.5 MG TAB PO SCH (21:22)
[2020-03-26] MEDS: dilTIAZem 60 MG TAB PO SCH ×4 (00:25→17:23)
[2020-03-26] MEDS: IPRATROPIUM 0.02% NEBU 2.5 ML IH SCH ×5 (03:13→20:42)
[2020-03-26] MEDS: MORPHINE 2 MG/1 ML INJ IV PRN ×3 (06:28→19:55)
[2020-03-26] MEDS: methylPREDNISolone Sod Succinate 40 MG/1 ML INJ IV SCH ×3 (06:32→22:05)
[2020-03-26 06:54] LABS: BUN/Creatinine Ratio 28; Blood Urea Nitrogen 34 mg/dL (9-20); Calcium 6.9 mg/dL (8.4-10.2); Hemolysis Index 2
[2020-03-26] MEDS: FERROUS SULFATE 325 MG TAB PO SCH ×4 (07:31→22:15)
[2020-03-26] MEDS: BUDESONIDE 0.5 MG/2 ML NEBU IH SCH ×3 (08:28→20:42)
[2020-03-26] MEDS: IPRATROPIUM/ALBUTEROL SULFATE 3 ML AMPUL.NEB IH SCH (08:28)
[2020-03-26] MEDS: ENOXAPARIN 80 MG/0.8 ML INJ SUB-Q SCH ×2 (09:24→22:00)
[2020-03-26] MEDS: ASPIRIN EC 81 MG TAB PO SCH (09:24)
--- NOTE | 2020-03-26 13:21 | Progress Note ---
Assessment and Plan Atrial fibrillation with RVR Acute COPD exacerbation Hypertension Chronic anemia HIV infection History of pulmonary embolus Nonobstructive CAD Polysubstance abuse (tobacco/cocaine) [facility] 09/15/2019: showed mild nonobstructive CAD (25% mid RCA), EF 55-60%. Stress MPI 08/24/2019: was negative. tte 06/2019: showed EF 60-65%, impaired relaxation. sinus rhythm today Continue oral Cardizem Issues in the past with compliance decided not a good oral anticoagulation candidate Subjective Date of service: 03/26/20 Principal diagnosis: Atrial fibrillation with RVR Interval history: Patient lying in bed and states that he feels somewhat better Objective Vital Signs Temp Pulse Pulse Pulse Resp Resp BP 03/26/20 13:00 82 130/80 03/26/20 12:51 81 121/79 03/26/20 12:41 80 127/79 03/26/20 12:30 79 127/79 03/26/20 12:21 80 136/72 03/26/20 12:11 105 H 22 141/70 03/26/20 12:07 92 H 03/26/20 12:00 98.2 F 99 H 90 35 H 141/70 03/26/20 11:55 18 03/26/20 11:51 105 H 34 H 133/67 03/26/20 11:41 78 23 124/71 03/26/20 11:30 82 27 H 124/71 03/26/20 11:21 87 24 117/74 03/26/20 11:16 77 117/74 03/26/20 11:11 79 22 134/75 03/26/20 11:01 83 22 134/75 03/26/20 10:51 88 24 128/96 03/26/20 10:41 83 14 95/58 03/26/20 10:30 74 21 95/58 03/26/20 10:21 76 24 106/59 03/26/20 10:11 79 24 116/72 03/26/20 10:01 103 H 29 H 144/75 03/26/20 09:51 79 23 144/75 03/26/20 09:41 89 24 139/90 03/26/20 09:30 82 20 116/72 03/26/20 09:21 80 21 139/90 03/26/20 09:11 88 18 151/97 03/26/20 09:00 87 15 125/80 03/26/20 08:51 83 20 120/77 03/26/20 08:41 88 15 151/97 03/26/20 08:30 86 20 151/97 03/26/20 08:28 88 18 03/26/20 08:21 81 17 148/91 03/26/20 08:11 82 27 H 140/81 03/26/20 08:00 98 F 100 H 100 H 24 140/81 03/26/20 07:51 99 H 25 H 140/82 03/26/20 07:41 90 19 129/87 03/26/20 07:31 82 20 129/87 03/26/20 07:21 74 15 155/74 03/26/20 07:11 106 H 16 126/82 03/26/20 07:01 84 16 126/82 03/26/20 06:51 76 21 146/98 03/26/20 06:41 77 14 145/82 03/26/20 06:30 145/82 03/26/20 06:29 92 H 145/82 03/26/20 06:21 160/103 03/26/20 06:11 146/104 03/26/20 06:01 141/90 03/26/20 05:51 141/90 03/26/20 05:41 156/87 03/26/20 05:31 156/87 03/26/20 05:21 171/87 03/26/20 05:11 165/82 03/26/20 05:01 165/82 03/26/20 04:51 89 170/80 03/26/20 04:41 84 128/101 03/26/20 04:31 161/74 03/26/20 04:21 161/74 03/26/20 04:11 98 H 139/76 03/26/20 04:01 82 29 H 139/76 03/26/20 04:00 96 H 97 H 21 03/26/20 03:51 82 30 H 125/74 03/26/20 03:41 80 27 H 125/74 03/26/20 03:31 98.1 F 83 23 114/71 03/26/20 03:21 82 25 H 114/71 03/26/20 03:11 88 14 130/68 03/26/20 03:01 80 24 130/68 03/26/20 02:51 83 28 H 143/89 03/26/20 02:41 83 25 H 147/79 03/26/20 02:30 86 20 147/79 03/26/20 02:20 84 26 H 113/60 03/26/20 02:10 86 28 H 148/81 03/26/20 02:00 83 20 157/110 03/26/20 01:51 82 27 H 157/110 03/26/20 01:41 85 22 148/74 03/26/20 01:30 86 26 H 148/74 03/26/20 01:21 84 26 H 192/102 03/26/20 01:11 108 H 30 H 120/72 03/26/20 01:00 81 29 H 120/72 03/26/20 00:51 79 25 H 117/72 03/26/20 00:41 91 H 26 H 106/58 03/26/20 00:31 83 28 H 110/53 03/26/20 00:25 90 110/53 03/26/20 00:21 82 28 H 110/53 03/26/20 00:11 79 24 120/72 03/26/20 00:00 78 89 24 120/72 03/25/20 23:51 97.7 F 80 26 H 112/74 03/25/20 23:41 79 24 110/69 03/25/20 23:31 80 25 H 110/69 03/25/20 23:21 77 26 H 69/47 03/25/20 23:13 120/72 03/25/20 23:11 120/72 03/25/20 23:00 120/72 03/25/20 22:51 120/76 03/25/20 22:41 112/72 03/25/20 22:30 112/72 03/25/20 22:21 80 15 103/62 03/25/20 22:11 80 24 108/72 03/25/20 22:01 94 H 16 102/67 03/25/20 21:51 81 27 H 102/67 03/25/20 21:41 82 25 H 127/68 03/25/20 21:31 93 H 25 H 127/68 03/25/20 21:21 81 26 H 122/68 03/25/20 21:11 87 20 99/65 03/25/20 21:00 84 29 H 99/65 03/25/20 20:51 82 25 H 112/65 03/25/20 20:41 88 35 H 117/63 03/25/20 20:31 87 24 117/63 03/25/20 20:21 84 66/34 03/25/20 20:11 82 122/62 03/25/20 20:00 97.7 F 83 83 27 H 122/62 03/25/20 19:55 03/25/20 19:54 83 20 03/25/20 19:51 87 119/68 03/25/20 19:41 100 H 114/63 03/25/20 19:31 74 28 H 114/63 03/25/20 19:21 29 H 120/69 03/25/20 19:11 87 21 106/69 03/25/20 19:01 83 24 115/62 03/25/20 18:51 88 31 H 123/54 03/25/20 18:41 90 16 106/63 03/25/20 18:30 81 20 106/69 03/25/20 18:21 80 21 106/63 03/25/20 18:10 82 22 105/66 03/25/20 18:01 75 24 105/66 03/25/20 17:51 78 26 H 105/66 03/25/20 17:41 75 27 H 110/69 03/25/20 17:30 83 24 111/63 03/25/20 17:24 81 110/69 03/25/20 17:21 80 14 103/69 03/25/20 17:11 92 H 29 H 103/69 03/25/20 17:01 104 H 16 103/69 03/25/20 16:51 95 H 24 103/69 03/25/20 16:41 79 23 106/71 03/25/20 16:30 80 21 106/71 03/25/20 16:21 83 28 H 116/64 03/25/20 16:11 92 H 20 90/68 03/25/20 16:01 86 28 H 112/74 03/25/20 16:00 97.8 F 85 86 28 H 03/25/20 15:51 85 15 112/74 03/25/20 15:40 88 24 122/72 03/25/20 15:31 100 H 33 H 122/78 03/25/20 15:21 90 25 H 122/78 03/25/20 15:11 87 42 H 131/79 03/25/20 15:00 87 27 H 131/79 03/25/20 14:51 83 26 H 126/71 03/25/20 14:41 82 19 136/75 03/25/20 14:30 87 82 22 22 136/75 03/25/20 14:21 94 H 24 118/78 03/25/20 14:11 86 26 H 120/74 03/25/20 14:00 87 23 120/74 03/25/20 13:51 96 H 26 H 121/73 03/25/20 13:41 92 H 33 H 114/66 03/25/20 13:31 99 H 26 H 114/66 03/25/20 13:21 84 26 H 122/68 Pulse Ox 03/26/20 13:00 94 03/26/20 12:51 97 03/26/20 12:41 99 03/26/20 12:30 99 03/26/20 12:21 100 03/26/20 12:11 97 03/26/20 12:07 03/26/20 12:00 100 03/26/20 11:55 03/26/20 11:51 98 03/26/20 11:41 99 03/26/20 11:30 98 03/26/20 11:21 93 03/26/20 11:16 03/26/20 11:11 91 03/26/20 11:01 92 03/26/20 10:51 96 03/26/20 10:41 100 03/26/20 10:30 99 03/26/20 10:21 99 03/26/20 10:11 100 03/26/20 10:01 94 03/26/20 09:51 99 03/26/20 09:41 100 03/26/20 09:30 100 03/26/20 09:21 96 03/26/20 09:11 94 03/26/20 09:00 95 03/26/20 08:51 98 03/26/20 08:41 100 03/26/20 08:30 92 03/26/20 08:28 93 03/26/20 08:21 99 03/26/20 08:11 99 03/26/20 08:00 94 03/26/20 07:51 95 03/26/20 07:41 99 03/26/20 07:31 97 03/26/20 07:21 98 03/26/20 07:11 89 03/26/20 07:01 92 03/26/20 06:51 96 03/26/20 06:41 97 03/26/20 06:30 91 03/26/20 06:29 03/26/20 06:21 93 03/26/20 06:11 95 03/26/20 06:01 94 03/26/20 05:51 97 03/26/20 05:41 98 03/26/20 05:31 94 03/26/20 05:21 91 03/26/20 05:11 94 03/26/20 05:01 93 03/26/20 04:51 91 03/26/20 04:41 96 03/26/20 04:31 98 03/26/20 04:21 99 03/26/20 04:11 90 03/26/20 04:01 91 03/26/20 04:00 97 03/26/20 03:51 92 03/26/20 03:41 93 03/26/20 03:31 94 03/26/20 03:21 95 03/26/20 03:11 96 03/26/20 03:01 95 03/26/20 02:51 97 03/26/20 02:41 96 03/26/20 02:30 93 03/26/20 02:20 97 03/26/20 02:10 94 03/26/20 02:00 97 03/26/20 01:51 99 03/26/20 01:41 95 03/26/20 01:30 95 03/26/20 01:21 98 03/26/20 01:11 96 03/26/20 01:00 93 03/26/20 00:51 97 03/26/20 00:41 96 03/26/20 00:31 96 03/26/20 00:25 03/26/20 00:21 93 03/26/20 00:11 93 03/26/20 00:00 95 03/25/20 23:51 94 03/25/20 23:41 95 03/25/20 23:31 97 03/25/20 23:21 96 03/25/20 23:13 97 03/25/20 23:11 97 03/25/20 23:00 96 03/25/20 22:51 94 03/25/20 22:41 95 03/25/20 22:30 92 03/25/20 22:21 94 03/25/20 22:11 95 03/25/20 22:01 92 03/25/20 21:51 98 03/25/20 21:41 98 03/25/20 21:31 95 03/25/20 21:21 98 03/25/20 21:11 96 03/25/20 21:00 98 03/25/20 20:51 98 03/25/20 20:41 97 03/25/20 20:31 96 03/25/20 20:21 98 03/25/20 20:11 100 03/25/20 20:00 100 03/25/20 19:55 99 03/25/20 19:54 03/25/20 19:51 99 03/25/20 19:41 96 03/25/20 19:31 98 03/25/20 19:21 100 03/25/20 19:11 96 03/25/20 19:01 98 03/25/20 18:51 100 03/25/20 18:41 92 03/25/20 18:30 95 03/25/20 18:21 95 03/25/20 18:10 96 03/25/20 18:01 99 03/25/20 17:51 100 03/25/20 17:41 100 03/25/20 17:30 100 03/25/20 17:24 03/25/20 17:21 100 03/25/20 17:11 98 03/25/20 17:01 99 03/25/20 16:51 97 03/25/20 16:41 97 03/25/20 16:30 98 03/25/20 16:21 97 03/25/20 16:11 92 03/25/20 16:01 93 03/25/20 16:00 93 03/25/20 15:51 95 03/25/20 15:40 99 03/25/20 15:31 03/25/20 15:21 92 03/25/20 15:11 92 03/25/20 15:00 95 03/25/20 14:51 95 03/25/20 14:41 94 03/25/20 14:30 92 03/25/20 14:21 91 03/25/20 14:11 96 03/25/20 14:00 94 03/25/20 13:51 88 03/25/20 13:41 94 03/25/20 13:31 88 03/25/20 13:21 92 - Physical Examination HEENT: Positive: PERRL, Normocephaly, Mucus Membranes Moist Neck: Positive: neck supple, trachea midline Cardiac: Positive: Reg Rate and Rhythm Lungs: Positive: Decreased Breath Sounds Neuro: Positive: Grossly Intact Abdomen: Positive: Soft, Active Bowel Sounds. Negative: Tender Skin: Negative: Rash Musculoskeletal: No Pain Extremities: Absent: edema - Labs and Meds Comprehensive Metabolic Panel 03/26/20 Range/Units 06:04 Sodium 141 (137-145) mmol/L Potassium 4.2 (3.6-5.0) mmol/L Chloride 97.2 L (98-107) mmol/L Carbon Dioxide 33 H (22-30) mmol/L BUN 34 H (9-20) mg/dL Creatinine 1.2 (0.8-1.3) mg/dL Glucose 212 H (75-100) mg/dL Calcium 6.9 L (8.4-10.2) mg/dL - Imaging and Cardiology EKG: report reviewed, image reviewed Echo: report reviewed (06/2019 showed EF 60-65%, impaired relaxation. ) Cardiac cath: report reviewed (09/15/2019 showed mild nonobstructive CAD (25% mid RCA), EF 55-60%. )
--- NOTE | 2020-03-26 13:26 | Progress Note ---
Assessment and Plan Assessment and plan: 64-year-old male with past medical history as above who presents with acute dyspnea secondary to COPD exacerbation. Plan: Acute COPD exacerbation Pulmonology consulted Solu-Medrol Breathing treatments, Levaquin antibiotics Atrial fibrillation with RVR, rate controlled Cardiology consulted Patient off Cardizem drip Transition to p.o. Cardizem currently normal sinus rhythm Patient currently on Lovenox therapeutic dose, but patient is noncompliant. HIV infection, chronic CD4 is unknown Patient follow-up with his infectious disease physician in the outpatient setting Hypertension Diltiazem p.o. Continue to monitor Chronic microcytic anemia Iron studies Etiology unknown, possibly secondary to HIV infection Iron supplementation Steroid-induced hyperglycemia Continue to monitor Hypocalcemia Replete as needed Patient initially meeting SIRS criteria but without signs of sepsis. Most likely secondary to chronic HIV infection and acute COPD exacerbation. CODE STATUS: Full DVT prophylaxis: Lovenox therapeutic dose due to A. fib Disposition: Continue hospitalization care. Transfer out of the ICU to [facility] telemetry. History Interval history: Patient seen and examined, continues to have some shortness of breath but no respiratory distress or increased respiratory effort, on nasal cannula oxygen. Hospitalist Physical - Physical exam Narrative exam: General appearance: Present: no acute distress, well-nourished - EENT Eyes: Present: PERRL, EOM intact ENT: hearing intact, clear oral mucosa - Respiratory Respiratory effort: normal Respiratory: Continues to have bilateral wheezes in upper middle and lower lobe of the lungs, no rales rhonchi heard - Cardiovascular Rhythm: Irregular rate and rhythm Heart Sounds: Present: S1 & S2. Absent: rub, click - Extremities Extremities: no ischemia, No edema, normal temperature, normal color, Full ROM - Abdominal General gastrointestinal: soft, non-tender, non-distended, normal bowel sounds - Integumentary Integumentary: Present: clear, warm, dry, normal turgor - Neurologic Neurologic: CNII-XII intact, no focal deficits, moves all extremities - Constitutional Vitals: Temp Pulse Resp BP Pulse Ox 98.2 F 82 22 130/80 94 03/26/20 12:00 03/26/20 13:00 03/26/20 12:11 03/26/20 13:00 03/26/20 13:00 General appearance: Present: no acute distress HEART Score - HEART Score Troponin: Troponin T < 0.010 ng/mL (0.00-0.029) 03/22/20 16:07 Results - Labs CBC & Chem 7: 03/25/20 04:24 03/26/20 06:04 Labs: Laboratory Last Values WBC 15.5 K/mm3 (4.5-11.0) H 03/25/20 04:24 RBC 4.03 M/mm3 (3.65-5.03) 03/25/20 04:24 Hgb 9.0 gm/dl (11.8-15.2) L 03/25/20 04:24 Hct 29.3 % (35.5-45.6) L 03/25/20 04:24 MCV 73 fl (84-94) L 03/25/20 04:24 MCH 22 pg (28-32) L 03/25/20 04:24 MCHC 31 % (32-34) L 03/25/20 04:24 RDW 23.9 % (13.2-15.2) H 03/25/20 04:24 Plt Count 321 K/mm3 (140-440) 03/25/20 04:24 Add Manual Diff Complete 03/23/20 05:35 Total Counted 100 03/23/20 05:35 Seg Neutrophils % Sales Project Coordinator 03/23/20 05:35 Seg Neuts % (Manual) 99.0 % (40.0-70.0) H 03/23/20 05:35 Lymphocytes % (Manual) 15.0 % (13.4-35.0) 03/22/20 14:42 Monocytes % (Manual) 1.0 % (0.0-7.3) 03/23/20 05:35 Nucleated RBC % Not Reportable 03/23/20 05:35 Seg Neutrophils # Man 8.6 K/mm3 (1.8-7.7) H 03/23/20 05:35 Band Neutrophils # 0.0 K/mm3 03/23/20 05:35 Lymphocytes # (Manual) 0.0 K/mm3 (1.2-5.4) L 03/23/20 05:35 Abs React Lymphs (Man) 0.0 K/mm3 03/23/20 05:35 Monocytes # (Manual) 0.1 K/mm3 (0.0-0.8) 03/23/20 05:35 Eosinophils # (Manual) 0.0 K/mm3 (0.0-0.4) 03/23/20 05:35 Basophils # (Manual) 0.0 K/mm3 (0.0-0.1) 03/23/20 05:35 Metamyelocytes # 0.0 K/mm3 03/23/20 05:35 Myelocytes # 0.0 K/mm3 03/23/20 05:35 Promyelocytes # 0.0 K/mm3 03/23/20 05:35 Blast Cells # 0.0 K/mm3 03/23/20 05:35 WBC Morphology Not Reportable 03/23/20 05:35 Hypersegmented Neuts Not Reportable 03/23/20 05:35 Hyposegmented Neuts Not Reportable 03/23/20 05:35 Hypogranular Neuts Not Reportable 03/23/20 05:35 Smudge Cells Not Reportable 03/23/20 05:35 Toxic Granulation Not Reportable 03/23/20 05:35 Toxic Vacuolation Not Reportable 03/23/20 05:35 Dohle Bodies Not Reportable 03/23/20 05:35 Pelger-Huet Anomaly Not Reportable 03/23/20 05:35 Ruma Rods Not Reportable 03/23/20 05:35 Platelet Estimate Consistent w auto 03/23/20 05:35 Clumped Platelets Not Reportable 03/23/20 05:35 Plt Clumps, EDTA Not Reportable 03/23/20 05:35 Large Platelets Not Reportable 03/23/20 05:35 Giant Platelets Not Reportable 03/23/20 05:35 Platelet Satelliting Not Reportable 03/23/20 05:35 Plt Morphology Comment Not Reportable 03/23/20 05:35 RBC Morphology Not Reportable 03/23/20 05:35 Dimorphic RBCs Not Reportable 03/23/20 05:35 Polychromasia Not Reportable 03/23/20 05:35 Hypochromasia 2+ 03/23/20 05:35 Poikilocytosis 1+ 03/23/20 05:35 Anisocytosis 2+ 03/23/20 05:35 Microcytosis Not Reportable 03/23/20 05:35 Macrocytosis Not Reportable 03/23/20 05:35 Spherocytes Not Reportable 03/23/20 05:35 Pappenheimer Bodies Not Reportable 03/23/20 05:35 Sickle Cells Not Reportable 03/23/20 05:35 Target Cells Not Reportable 03/23/20 05:35 Tear Drop Cells Few 03/23/20 05:35 Ovalocytes 1+ 03/23/20 05:35 Helmet Cells Not Reportable 03/23/20 05:35 [place] Bodies Not Reportable 03/23/20 05:35 [place] Rings Not Reportable 03/23/20 05:35 [place] Cells Not Reportable 03/23/20 05:35 Bite Cells Not Reportable 03/23/20 05:35 Crenated Cell Not Reportable 03/23/20 05:35 Elliptocytes Few 03/23/20 05:35 Acanthocytes (Spur) Not Reportable 03/23/20 05:35 Rouleaux Not Reportable 03/23/20 05:35 Hemoglobin C Crystals Not Reportable 03/23/20 05:35 Schistocytes Not Reportable 03/23/20 05:35 Malaria parasites Not Reportable 03/23/20 05:35 Ric Bodies Not Reportable 03/23/20 05:35 Hem Pathologist Commnt No 03/23/20 05:35 PT 14.4 Sec. (12.2-14.9) 03/23/20 05:35 INR 1.13 (0.87-1.13) 03/23/20 05:35 D-Dimer 198.95 ng/mlDDU (0-234) 03/25/20 11:28 Sodium 141 mmol/L (137-145) 03/26/20 06:04 Potassium 4.2 mmol/L (3.6-5.0) 03/26/20 06:04 Chloride 97.2 mmol/L (98-107) L 03/26/20 06:04 Carbon Dioxide 33 mmol/L (22-30) H 03/26/20 06:04 Anion Gap 15 mmol/L 03/26/20 06:04 BUN 34 mg/dL (9-20) H 03/26/20 06:04 Creatinine 1.2 mg/dL (0.8-1.3) 03/26/20 06:04 Estimated GFR > 60 ml/min 03/26/20 06:04 BUN/Creatinine Ratio 28 % 03/26/20 06:04 Glucose 212 mg/dL (75-100) H 03/26/20 06:04 Lactic Acid 1.50 mmol/L (0.7-2.0) 03/22/20 16:07 Calcium 6.9 mg/dL (8.4-10.2) L 03/26/20 06:04 Total Bilirubin 0.40 mg/dL (0.1-1.2) 03/22/20 14:42 AST 16 units/L (5-40) 03/22/20 14:42 ALT 32 units/L (7-56) 03/22/20 14:42 Alkaline Phosphatase 62 units/L (35-129) 03/22/20 14:42 Troponin T < 0.010 ng/mL (0.00-0.029) 03/22/20 16:07 Total Protein 7.0 g/dL (6.3-8.2) 03/22/20 14:42 Albumin 3.7 g/dL (3.9-5) L 03/22/20 14:42 Albumin/Globulin Ratio 1.1 % 03/22/20 14:42 Urine Color Yellow (Yellow) 03/23/20 Unknown Urine Turbidity Clear (Clear) 03/23/20 Unknown Urine pH 5.0 (5.0-7.0) 03/23/20 Unknown Ur Specific [place] 1.015 (1.003-1.030) 03/23/20 Unknown Urine Protein 100 mg/dl mg/dL (Negative) 03/23/20 Unknown Urine Glucose (UA) >=500 mg/dL (Negative) 03/23/20 Unknown Urine Ketones Neg mg/dL (Negative) 03/23/20 Unknown Urine Blood Neg (Negative) 03/23/20 Unknown Urine Nitrite Neg (Negative) 03/23/20 Unknown Urine Bilirubin Neg (Negative) 03/23/20 Unknown Urine Urobilinogen < 2.0 mg/dL (<2.0) 03/23/20 Unknown Ur Leukocyte Esterase Neg (Negative) 03/23/20 Unknown Urine WBC (Auto) 2.0 /HPF (0.0-6.0) 03/23/20 Unknown Urine RBC (Auto) < 1.0 /HPF (0.0-6.0) 03/23/20 Unknown Urine Mucus Few /HPF 03/23/20 Unknown Urine Opiates Screen Negative 03/23/20 Unknown Urine Methadone Screen Negative 03/23/20 Unknown Ur Barbiturates Screen Negative 03/23/20 Unknown Ur Phencyclidine Scrn Negative 03/23/20 Unknown Ur Amphetamines Screen Negative 03/23/20 Unknown U Benzodiazepines Scrn Negative 03/23/20 Unknown Urine Cocaine Screen Negative 03/23/20 Unknown U Marijuana (THC) Screen Negative 03/23/20 Unknown Drugs of Abuse Note Disclamer 03/23/20 Unknown Microbiology: Microbiology 03/22/20 18:07 Peripheral/Venous Blood Culture - Preliminary NO GROWTH AFTER 72 HOURS 03/22/20 17:54 Peripheral/Venous Blood Culture - Preliminary NO GROWTH AFTER 72 HOURS [place]/IV: Voiding Method Urinal IV Catheter Type [Left Hand] Peripheral IV IV Catheter Type [Right Hand] INT / Saline Lock Active Medications - Current Medications Current Medications: Generic Name Dose Route Start Last Admin Trade Name Freq PRN Reason Stop Dose Admin Acetaminophen 650 mg 03/22/20 18:22 03/25/20 16:13 Acetaminophen 325 Mg Tab PO 650 mg Q4H PRN Administration Pain MILD(1-3)/Fever >100.5/KOENIG Al Hydrox/Mg Hydrox/Simethicone 30 ml 03/24/20 00:36 03/25/20 05:44 Alum-Mag Hydroxide-Simethicone [phone] Oral Liqd 30 Ml PO 30 ml Q6H PRN Administration Indigestion Albuterol 2.5 mg 03/23/20 20:07 Albuterol 2.5 Mg/3 Ml Nebu IH Q4HRT PRN Shortness Of Breath Aspirin 81 mg 03/24/20 10:00 03/26/20 09:24 Aspirin Ec 81 Mg Tab PO 81 mg QDAY NADIA Administration Atorvastatin Calcium 40 mg 03/24/20 22:00 03/25/20 21:22 Atorvastatin 40 Mg Tab PO 40 mg QHS NADIA Administration Budesonide 0.5 mg 03/25/20 11:15 03/26/20 08:28 Budesonide 0.5 Mg/2 Ml Nebu IH 0.5 mg Q12HRT NADIA Administration Clonazepam 1 mg 03/24/20 22:00 03/25/20 21:22 Clonazepam 0.5 Mg Tab PO 1 mg QHS NADIA Administration Diltiazem HCl 60 mg 03/24/20 15:56 03/26/20 11:16 Diltiazem 60 Mg Tab PO 60 mg Q6HR NADIA Administration Enoxaparin Sodium 70 mg 03/24/20 22:00 03/26/20 09:24 Enoxaparin 80 Mg/0.8 Ml Inj SUB-Q 70 mg Q12HR NADIA Administration Protocol Ferrous Sulfate 325 mg 03/23/20 20:00 03/26/20 07:31 Ferrous Sulfate 325 Mg Tab PO 325 mg TID NADIA Administration Levofloxacin/Dextrose 750 mg in 150 mls @ 100 mls/hr 03/23/20 17:00 03/25/20 17:24 Levaquin 750mg/150ml IV 100 mls/hr Q24H NADIA Administration Protocol Diltiazem HCl 100 mg in 100 mls @ 5 mls/hr 03/23/20 23:45 03/25/20 14:30 Cardizem/D5w 100mg/100ml IV Infused TITR NADIA Titration Protocol 5 MG/HR Ipratropium Roland 0.5 mg 03/25/20 14:00 03/26/20 08:29 Ipratropium 0.02% Nebu 2.5 Ml IH Not Given Q6HRT [facility] Magnesium Hydroxide 30 ml 03/22/20 18:22 Magnesium Hydroxide (Mom) Oral Liqd Udc PO Q4H PRN Constipation Methylprednisolone Sodium Succinate 40 mg 03/22/20 22:00 03/26/20 06:32 Methylprednisolone Sod Succinate 40 Mg/1 Ml Inj IV 40 mg Q8HR NADIA Administration Morphine Sulfate 2 mg 03/22/20 18:22 03/26/20 11:55 Morphine 2 Mg/1 Ml Inj IV 2 mg Q4H PRN Administration Pain, Moderate (4-6) Ondansetron HCl 4 mg 03/22/20 18:22 Ondansetron 4 Mg/2 Ml Inj IV Q8H PRN Nausea And Vomiting Sodium Chloride 10 ml 03/22/20 22:00 03/26/20 09:25 Sodium Chloride 0.9% 10 Ml Flush Syringe IV 10 ml BID NADIA Administration Sodium Chloride 10 ml 03/22/20 18:22 03/26/20 09:24 Sodium Chloride 0.9% 10 Ml Flush Syringe IV 10 ml PRN PRN Administration LINE FLUSH
--- NOTE | 2020-03-26 18:10 | Progress Note ---
Assessment and Plan AE-COPD Afib with RVR Acute hypoxia Moderate protein calorie malnutrition Tobacco use disorder/Nicotine dependence Substance abuse disorder-h/o Cocaine, UDS negative this visit Microcytic anemia HIV-AIDS -Continue to wean steroids as tolerated- stop Solumedrol and start prednisone in am -Stop IV Levofloxacin adn change to oral in am -CXR, ABG as clinically indicated -Continue to wean supplemental oxygen to keep O2 sats 88-90% -Continue ipratropium nebulized, - Continue VTE prophylaxis- therapeutic anticoagulation with Enoxaparin - Continue Nicotine withdrawal precautions -Smoking cessation counselling, done at the bedside -Accuchecks with glycemic control while on steroids, keep blood glucose <180mg/dL -Chronic home medications -Monitor renal functions and dose medications for CrCL/GFR -Optimize nutritional status -Outpatient pulmonary follow up to evaluate FEV1, optimize pulmonary status Subjective Date of service: 03/26/20 Principal diagnosis: Atrial fibrillation with RVR Interval history: Patient seen in follow up for:AE-COPD;Acute hypoxia;Moderate protein calorie malnutrition;Tobacco use disorder/Nicotine dependence Patient seen and examined. Vitals, labs, medications, chart reviewed. Discussed with nursing and respiratory staff; Off Cardizem, transferred out of the ICU Denies any chest pain, no shortness of breath. Resting peacefully in bed on supplemental oxygen Objective - Exam Narrative Exam: General appearance: Present: no acute distress, chronically ill looking - EENT Eyes: Present: PERRL, EOM intact ENT: hearing intact, clear oral mucosa - Respiratory Respiratory effort: normal Respiratory: Continues to have bilateral wheezes in upper middle and lower lobe of the lungs, no rales rhonchi heard - Cardiovascular Rhythm: Irregular rate and rhythm, Heart Sounds: Present: S1 & S2. Absent: rub, click - Extremities Extremities: no ischemia, No edema, normal temperature, normal color, Full ROM - Abdominal General gastrointestinal: soft, non-tender, non-distended, normal bowel sounds - Integumentary Integumentary: Present: clear, warm, dry, normal turgor - Neurologic Neurologic: CNII-XII intact, no focal deficits, moves all extremities Vital Signs - 12hr 03/26/20 03/26/20 03/26/20 06:11 06:21 06:29 Temperature Pulse Rate 92 H Pulse Rate [ Anterior Bilateral Throughout] Pulse Rate [ From Monitor] Respiratory Rate Respiratory Rate [Anterior Bilateral Throughout] Blood Pressure 146/104 160/103 145/82 O2 Sat by Pulse 95 93 Oximetry 03/26/20 03/26/20 03/26/20 06:30 06:41 06:51 Temperature Pulse Rate 77 76 Pulse Rate [ Anterior Bilateral Throughout] Pulse Rate [ From Monitor] Respiratory 14 21 Rate Respiratory Rate [Anterior Bilateral Throughout] Blood Pressure 145/82 145/82 146/98 O2 Sat by Pulse 91 97 96 Oximetry 03/26/20 03/26/20 03/26/20 07:01 07:11 07:21 Temperature Pulse Rate 84 106 H 74 Pulse Rate [ Anterior Bilateral Throughout] Pulse Rate [ From Monitor] Respiratory 16 16 15 Rate Respiratory Rate [Anterior Bilateral Throughout] Blood Pressure 126/82 126/82 155/74 O2 Sat by Pulse 92 89 98 Oximetry 03/26/20 03/26/20 03/26/20 07:31 07:41 07:51 Temperature Pulse Rate 82 90 99 H Pulse Rate [ Anterior Bilateral Throughout] Pulse Rate [ From Monitor] Respiratory 20 19 25 H Rate Respiratory Rate [Anterior Bilateral Throughout] Blood Pressure 129/87 129/87 140/82 O2 Sat by Pulse 97 99 95 Oximetry 03/26/20 03/26/20 03/26/20 08:00 08:11 08:21 Temperature 98 F Pulse Rate 100 H 82 81 Pulse Rate [ Anterior Bilateral Throughout] Pulse Rate [ 100 H From Monitor] Respiratory 24 27 H 17 Rate Respiratory Rate [Anterior Bilateral Throughout] Blood Pressure 140/81 140/81 148/91 O2 Sat by Pulse 94 99 99 Oximetry 03/26/20 03/26/20 03/26/20 08:28 08:30 08:41 Temperature Pulse Rate 86 88 Pulse Rate [ 88 Anterior Bilateral Throughout] Pulse Rate [ From Monitor] Respiratory 20 15 Rate Respiratory 18 Rate [Anterior Bilateral Throughout] Blood Pressure 151/97 151/97 O2 Sat by Pulse 93 92 100 Oximetry 03/26/20 03/26/20 03/26/20 08:51 09:00 09:11 Temperature Pulse Rate 83 87 88 Pulse Rate [ Anterior Bilateral Throughout] Pulse Rate [ From Monitor] Respiratory 20 15 18 Rate Respiratory Rate [Anterior Bilateral Throughout] Blood Pressure 120/77 125/80 151/97 O2 Sat by Pulse 98 95 94 Oximetry 03/26/20 03/26/20 03/26/20 09:21 09:30 09:41 Temperature Pulse Rate 80 82 89 Pulse Rate [ Anterior Bilateral Throughout] Pulse Rate [ From Monitor] Respiratory 21 20 24 Rate Respiratory Rate [Anterior Bilateral Throughout] Blood Pressure 139/90 116/72 139/90 O2 Sat by Pulse 96 100 100 Oximetry 03/26/20 03/26/20 03/26/20 09:51 10:01 10:11 Temperature Pulse Rate 79 103 H 79 Pulse Rate [ Anterior Bilateral Throughout] Pulse Rate [ From Monitor] Respiratory 23 29 H 24 Rate Respiratory Rate [Anterior Bilateral Throughout] Blood Pressure 144/75 144/75 116/72 O2 Sat by Pulse 99 94 100 Oximetry 03/26/20 03/26/20 03/26/20 10:21 10:30 10:41 Temperature Pulse Rate 76 74 83 Pulse Rate [ Anterior Bilateral Throughout] Pulse Rate [ From Monitor] Respiratory 24 21 14 Rate Respiratory Rate [Anterior Bilateral Throughout] Blood Pressure 106/59 95/58 95/58 O2 Sat by Pulse 99 99 100 Oximetry 03/26/20 03/26/20 03/26/20 10:51 11:01 11:11 Temperature Pulse Rate 88 83 79 Pulse Rate [ Anterior Bilateral Throughout] Pulse Rate [ From Monitor] Respiratory 24 22 22 Rate Respiratory Rate [Anterior Bilateral Throughout] Blood Pressure 128/96 134/75 134/75 O2 Sat by Pulse 96 92 91 Oximetry 03/26/20 03/26/20 03/26/20 11:16 11:21 11:30 Temperature Pulse Rate 77 87 82 Pulse Rate [ Anterior Bilateral Throughout] Pulse Rate [ From Monitor] Respiratory 24 27 H Rate Respiratory Rate [Anterior Bilateral Throughout] Blood Pressure 117/74 117/74 124/71 O2 Sat by Pulse 93 98 Oximetry 03/26/20 03/26/20 03/26/20 11:41 11:51 11:55 Temperature Pulse Rate 78 105 H Pulse Rate [ Anterior Bilateral Throughout] Pulse Rate [ From Monitor] Respiratory 23 34 H 18 Rate Respiratory Rate [Anterior Bilateral Throughout] Blood Pressure 124/71 133/67 O2 Sat by Pulse 99 98 Oximetry 03/26/20 03/26/20 03/26/20 12:00 12:07 12:11 Temperature 98.2 F Pulse Rate 99 H 92 H 105 H Pulse Rate [ Anterior Bilateral Throughout] Pulse Rate [ 90 From Monitor] Respiratory 35 H 22 Rate Respiratory Rate [Anterior Bilateral Throughout] Blood Pressure 141/70 141/70 O2 Sat by Pulse 100 97 Oximetry 03/26/20 03/26/20 03/26/20 12:21 12:30 12:41 Temperature Pulse Rate 80 79 80 Pulse Rate [ Anterior Bilateral Throughout] Pulse Rate [ From Monitor] Respiratory Rate Respiratory Rate [Anterior Bilateral Throughout] Blood Pressure 136/72 127/79 127/79 O2 Sat by Pulse 100 99 99 Oximetry 03/26/20 03/26/20 03/26/20 12:51 13:00 13:11 Temperature Pulse Rate 81 82 83 Pulse Rate [ Anterior Bilateral Throughout] Pulse Rate [ From Monitor] Respiratory Rate Respiratory Rate [Anterior Bilateral Throughout] Blood Pressure 121/79 130/80 130/80 O2 Sat by Pulse 97 94 92 Oximetry 03/26/20 03/26/20 03/26/20 13:20 13:30 13:40 Temperature Pulse Rate 96 H 93 H Pulse Rate [ Anterior Bilateral Throughout] Pulse Rate [ From Monitor] Respiratory Rate Respiratory Rate [Anterior Bilateral Throughout] Blood Pressure 137/68 137/68 O2 Sat by Pulse 91 89 85 Oximetry 03/26/20 03/26/20 03/26/20 13:51 14:01 14:11 Temperature Pulse Rate 88 83 82 Pulse Rate [ Anterior Bilateral Throughout] Pulse Rate [ From Monitor] Respiratory Rate Respiratory Rate [Anterior Bilateral Throughout] Blood Pressure 137/68 137/68 90/67 O2 Sat by Pulse 92 97 85 Oximetry 03/26/20 03/26/20 03/26/20 16:00 16:12 17:23 Temperature 97.8 F Pulse Rate 88 82 Pulse Rate [ Anterior Bilateral Throughout] Pulse Rate [ From Monitor] Respiratory 18 Rate Respiratory Rate [Anterior Bilateral Throughout] Blood Pressure 131/80 131/60 O2 Sat by Pulse 97 Oximetry CBC and BMP: 03/27/20 06:47 03/27/20 06:47 ABG, PT/INR, D-dimer: PT/INR, D-dimer PT 14.4 Sec. (12.2-14.9) 03/23/20 05:35 INR 1.13 (0.87-1.13) 03/23/20 05:35 D-Dimer 198.95 ng/mlDDU (0-234) 03/25/20 11:28 Abnormal lab findings: Abnormal Labs 03/22/20 03/22/20 03/23/20 14:42 14:42 05:35 WBC 17.0 H Hgb 10.1 L 8.6 L Hct 33.8 L 27.4 L D MCV 73 L 71 L MCH 22 L 22 L MCHC 30 L 31 L RDW 23.7 H 23.5 H Seg Neuts % (Manual) 77.0 H 99.0 H Monocytes % (Manual) 8.0 H Seg Neutrophils # Man 13.1 H 8.6 H Lymphocytes # (Manual) 0.0 L Monocytes # (Manual) 1.4 H Chloride 97.8 L Carbon Dioxide 38 H BUN 32 H Creatinine Glucose 117 H Calcium 6.9 L Albumin 3.7 L 03/23/20 03/25/20 03/25/20 05:35 04:24 04:24 WBC 15.5 H Hgb 9.0 L Hct 29.3 L MCV 73 L MCH 22 L MCHC 31 L RDW 23.9 H Seg Neuts % (Manual) Monocytes % (Manual) Seg Neutrophils # Man Lymphocytes # (Manual) Monocytes # (Manual) Chloride 96.4 L Carbon Dioxide 35 H 32 H BUN 32 H 43 H Creatinine 1.4 H Glucose 229 H 223 H Calcium 6.4 L 6.9 L Albumin 03/26/20 06:04 WBC Hgb Hct MCV MCH MCHC RDW Seg Neuts % (Manual) Monocytes % (Manual) Seg Neutrophils # Man Lymphocytes # (Manual) Monocytes # (Manual) Chloride 97.2 L Carbon Dioxide 33 H BUN 34 H Creatinine Glucose 212 H Calcium 6.9 L Albumin
[2020-03-26] MEDS: clonazePAM 0.5 MG TAB PO SCH (22:04)
[2020-03-26] MEDS: ALUM-MAG HYDROXIDE-SIMETHICONE 200-200-20MG/5ML ORAL LIQD 30 ML PO PRN (23:18)
[2020-03-27] MEDS: dilTIAZem 60 MG TAB PO SCH ×4 (01:03→17:47)
[2020-03-27] MEDS: methylPREDNISolone Sod Succinate 40 MG/1 ML INJ IV SCH (06:01)
[2020-03-27] MEDS: IPRATROPIUM 0.02% NEBU 2.5 ML IH SCH ×4 (06:19→20:23)
[2020-03-27] MEDS: MORPHINE 2 MG/1 ML INJ IV PRN ×3 (06:25→22:33)
[2020-03-27 07:47] LABS: BUN/Creatinine Ratio 31; Blood Urea Nitrogen 31 mg/dL (9-20); Calcium 6.3 mg/dL (8.4-10.2); Hemolysis Index 5; Iron 84 ug/dL (49-181); Total Iron Binding Capacity 280 mcg/dL (250-450)
[2020-03-27 07:50] LABS: Hematocrit 26.3 % (35.5-45.6); Mean Corpuscular HGB Conc 30 % (32-34); Mean Corpuscular Volume 73 fl (84-94); Platelet Count 214 K/mm3 (140-440); Red Blood Count 3.63 M/mm3 (3.65-5.03)
[2020-03-27] MEDS: BUDESONIDE 0.5 MG/2 ML NEBU IH SCH ×2 (08:00→20:23)
[2020-03-27 08:01] LABS: Red Cell Distribution Width 24.2 % (13.2-15.2)
[2020-03-27] MEDS: ENOXAPARIN 80 MG/0.8 ML INJ SUB-Q SCH (09:30)
[2020-03-27] MEDS: ASPIRIN EC 81 MG TAB PO SCH (09:30)
[2020-03-27] MEDS: FERROUS SULFATE 325 MG TAB PO SCH ×2 (09:30→14:49)
--- NOTE | 2020-03-27 09:41 | Progress Note ---
Assessment and Plan Patient awake. Resting on 2 litres O2. O2 saturation 97%. Still complaining some shortness of breath and chest pain. Denies cough. Patient afebrile and has leukocytosis. Patients chest xray done 03/22/20 reported No acute air space or interstitial disease. Hyperexpansion of the lungs and changes of prior granulomatous exposure is stable. No significant pleural effusion. Patient has history of smoking 1 or 2 cigaretts a day for 40 years. Counseled to stop smoking. Denies alcohol abuse. Used drugs when he is young. Works in [employer]. No Known drug allergies. Patient is on Albuterol/atrovent aerosol tratments, Levaquin and Prednisone. Recommend DVT and GI prophylaxis. - Patient Problems (1) Asthma with acute exacerbation Current Visit: Yes Status: Acute Plan to address problem: O2 2 litres via nasal canula. Albuterol/atrovent aerosol treatments q 6 hours. Continue PO prednisone. Recommend DVT and GI prophylaxis. (2) ANGELIC (acute kidney injury) Current Visit: No Status: Acute Plan to address problem: Management as per nephrology. (3) Acute respiratory failure with hypoxia Current Visit: No Status: Acute Plan to address problem: O2 2 litres via nasal canula. Albuterol/atrovent aerosol treatments q 6 hours. Continue PO prednisone. ABGs on O2. Recommend DVT and GI prophylaxis. (4) GERD (gastroesophageal reflux disease) Current Visit: No Status: Acute Plan to address problem: Recommend Prilosec or protonix or any other proton pump inhibitor. (5) History of HIV infection Current Visit: No Status: Acute Plan to address problem: Management as per primary care and infectious diseases. (6) Cocaine use Current Visit: No Status: Chronic Plan to address problem: Counseled not use illegal drugs. (7) Tobacco use Current Visit: No Status: Chronic Plan to address problem: Counseled to stop smoking. Subjective Date of service: 03/27/20 Principal diagnosis: Atrial fibrillation with RVR Interval history: Patient awake. Resting on 2 litres O2. O2 saturation 97%. Still complaining some shortness of breath and chest pain. Denies cough. cough. Patient afebrile and has leukocytosis. Patients chest xray done 03/22/20 reported No acute air space or interstitial disease. Hyperexpansion of the lungs and changes of prior granulomatous exposure is stable. No significant pleural effusion. Patient has history of smoking 1 or 2 cigaretts a day for 40 years. Counseled to stop smoking. Denies alcohol abuse. Used drugs when he is young. Works in [employer]. No Known drug allergies. Patient is on Albuterol/atrovent aerosol tratments, Levaquin and Prednisone. Recommend DVT and GI prophylaxis. Objective Vital Signs - 12hr 03/26/20 03/26/20 03/27/20 23:00 23:32 00:00 Temperature 98.1 F Pulse Rate 77 Pulse Rate [ Anterior Bilateral Throughout] Respiratory 18 Rate Respiratory Rate [Anterior Bilateral Throughout] Respiratory 17 Rate [Chest] Blood Pressure 112/64 O2 Sat by Pulse Oximetry 03/27/20 03/27/20 03/27/20 01:03 04:00 04:29 Temperature Pulse Rate 86 87 Pulse Rate [ Anterior Bilateral Throughout] Respiratory 18 Rate Respiratory Rate [Anterior Bilateral Throughout] Respiratory Rate [Chest] Blood Pressure 129/67 O2 Sat by Pulse 96 Oximetry 03/27/20 03/27/20 03/27/20 04:34 05:24 06:01 Temperature 98.6 F Pulse Rate 89 84 Pulse Rate [ Anterior Bilateral Throughout] Respiratory 18 Rate Respiratory Rate [Anterior Bilateral Throughout] Respiratory Rate [Chest] Blood Pressure 115/62 122/68 O2 Sat by Pulse 89 98 Oximetry 03/27/20 03/27/20 03/27/20 06:25 06:55 08:00 Temperature Pulse Rate Pulse Rate [ 87 Anterior Bilateral Throughout] Respiratory 17 17 Rate Respiratory 20 Rate [Anterior Bilateral Throughout] Respiratory Rate [Chest] Blood Pressure O2 Sat by Pulse 97 Oximetry Constitutional: alert, other (Mild shortness of breath at rest.) Eyes: non-icteric ENT: oropharynx moist Neck: supple, no lymphadenopathy Ascultation: Bilateral: other (Prolonged expiratory phase.) Cardiovascular: regular rate and rhythm Gastrointestinal: normoactive bowel sounds, soft, non-tender Integumentary: normal Extremities: no cyanosis, no edema Neurologic: normal mental status, non-focal exam, pupils equal and round, CN II- XII normal Psychiatric: mood appropriate CBC and BMP: 03/28/20 07:01 03/28/20 07:01 ABG, PT/INR, D-dimer: PT/INR, D-dimer PT 14.4 Sec. (12.2-14.9) 03/23/20 05:35 INR 1.13 (0.87-1.13) 03/23/20 05:35 D-Dimer 198.95 ng/mlDDU (0-234) 03/25/20 11:28 Abnormal lab findings: Abnormal Labs 03/22/20 03/22/20 03/23/20 14:42 14:42 05:35 WBC 17.0 H RBC Hgb 10.1 L 8.6 L Hct 33.8 L 27.4 L D MCV 73 L 71 L MCH 22 L 22 L MCHC 30 L 31 L RDW 23.7 H 23.5 H Seg Neuts % (Manual) 77.0 H 99.0 H Monocytes % (Manual) 8.0 H Seg Neutrophils # Man 13.1 H 8.6 H Lymphocytes # (Manual) 0.0 L Monocytes # (Manual) 1.4 H Chloride 97.8 L Carbon Dioxide 38 H BUN 32 H Creatinine Glucose 117 H Calcium 6.9 L Albumin 3.7 L 03/23/20 03/25/20 03/25/20 05:35 04:24 04:24 WBC 15.5 H RBC Hgb 9.0 L Hct 29.3 L MCV 73 L MCH 22 L MCHC 31 L RDW 23.9 H Seg Neuts % (Manual) Monocytes % (Manual) Seg Neutrophils # Man Lymphocytes # (Manual) Monocytes # (Manual) Chloride 96.4 L Carbon Dioxide 35 H 32 H BUN 32 H 43 H Creatinine 1.4 H Glucose 229 H 223 H Calcium 6.4 L 6.9 L Albumin 03/26/20 03/27/20 03/27/20 06:04 06:47 06:47 WBC 17.9 H RBC 3.63 L Hgb 8.0 L Hct 26.3 L MCV 73 L MCH 22 L MCHC 30 L RDW 24.2 H Seg Neuts % (Manual) Monocytes % (Manual) Seg Neutrophils # Man Lymphocytes # (Manual) Monocytes # (Manual) Chloride 97.2 L Carbon Dioxide 33 H 36 H BUN 34 H 31 H Creatinine Glucose 212 H 210 H Calcium 6.9 L 6.3 L Albumin Chest x-ray: report reviewed, image reviewed Additional Studies: CHEST 2 VIEWS 03/22/20 INDICATION: Dyspnea. COMPARISON: 03/13/2020. FINDINGS: Support devices: None. Heart: Within normal limits. Lungs/Pleura: No acute air space or interstitial disease. Hyperexpansion of the lungs and changes of prior granulomatous exposure is stable. No significant pleural effusion. IMPRESSION: Stable chest.
--- NOTE | 2020-03-27 11:14 | Progress Note ---
Assessment and Plan Pt is maintaining NSR on PO cardizem. Pt is not a good candidate for half-way systemic AC due to chronic anemia and medical noncompliance. Currently stable cardiac status. Pt may discharge from cardiology standpoint. At discharge, recommend PO cardizem CD 240mg daily. Recommend pt follow up in our office with Dr. Gavino Jovel within 2 weeks ([phone]). The patient has been seen in conjunction with Dr. Hernandez who agrees with the assessment and plan of care. - Patient Problems (1) Paroxysmal atrial fibrillation with RVR Current Visit: Yes Status: Acute (2) Nonobstructive atherosclerosis of coronary artery Current Visit: Yes Status: Chronic (3) Hypertension Current Visit: Yes Status: Chronic Qualifiers: Hypertension type: essential hypertension Qualified Code(s): I10 - Essential (primary) hypertension (4) COPD (chronic obstructive pulmonary disease) Current Visit: Yes Status: Chronic Qualifiers: COPD type: unspecified COPD Qualified Code(s): J44.9 - Chronic obstructive pulmonary disease, unspecified (5) HIV (human immunodeficiency virus infection) Current Visit: Yes Status: Chronic Qualifiers: HIV symptom status: asymptomatic Qualified Code(s): Z21 - Asymptomatic human immunodeficiency virus [HIV] infection status (6) Anemia Current Visit: Yes Status: Chronic Qualifiers: Anemia type: unspecified type Qualified Code(s): D64.9 - Anemia, unspecified (7) History of pulmonary embolism Current Visit: Yes Status: Chronic (8) Tobacco use Current Visit: Yes Status: Chronic (9) Medical noncompliance Current Visit: Yes Status: Chronic (10) Cocaine use Current Visit: Yes Status: Chronic Subjective Date of service: 03/27/20 Principal diagnosis: Atrial fibrillation with RVR Interval history: pt resting in bed, no current cardiac complaints. tele reviewed- in SR HR 70s with PACs. Objective Last Vital Signs Temp 98.6 F 03/27/20 04:34 Pulse 87 03/27/20 08:00 Resp 20 03/27/20 08:00 BP 122/68 03/27/20 06:01 Pulse Ox 97 03/27/20 08:00 - Physical Examination General: No Apparent Distress HEENT: Positive: PERRL, Normocephaly, Mucus Membranes Moist Neck: Positive: neck supple, trachea midline Cardiac: Positive: Reg Rate and Rhythm, S1/S2 Lungs: Positive: Decreased Breath Sounds Neuro: Positive: Grossly Intact Abdomen: Positive: Soft, Active Bowel Sounds. Negative: Tender Skin: Negative: Rash Musculoskeletal: No Pain Extremities: Absent: edema - Labs and Meds CBC 03/27/20 Range/Units 06:47 WBC 17.9 H (4.5-11.0) K/mm3 RBC 3.63 L (3.65-5.03) M/mm3 Hgb 8.0 L (11.8-15.2) gm/dl Hct 26.3 L (35.5-45.6) % Plt Count 214 (140-440) K/mm3 Comprehensive Metabolic Panel 03/27/20 Range/Units 06:47 Sodium 142 (137-145) mmol/L Potassium 3.9 (3.6-5.0) mmol/L Chloride 99.7 (98-107) mmol/L Carbon Dioxide 36 H (22-30) mmol/L BUN 31 H (9-20) mg/dL Creatinine 1.0 (0.8-1.3) mg/dL Glucose 210 H (75-100) mg/dL Calcium 6.3 L (8.4-10.2) mg/dL - Imaging and Cardiology EKG: report reviewed, image reviewed Echo: report reviewed (06/2019 showed EF 60-65%, impaired relaxation. ) Cardiac cath: report reviewed (09/15/2019 showed mild nonobstructive CAD (25% mid RCA), EF 55-60%. ) - Telemetry EKG Rhythm: Sinus Rhythm - Allied health notes Allied health notes reviewed: nursing
[2020-03-27] MEDS: predniSONE 10 MG TAB PO SCH (11:24)
--- NOTE | 2020-03-27 16:10 | Progress Note ---
Assessment and Plan Assessment and plan: 64-year-old male with past medical history as above who presents with acute dyspnea secondary to COPD exacerbation. Plan: Acute COPD exacerbation Pulmonology consulted Solu-Medrol Breathing treatments, Levaquin antibiotics Atrial fibrillation with RVR, rate controlled Cardiology consulted Patient off Cardizem drip Transition to p.o. Cardizem currently normal sinus rhythm Patient currently on Lovenox therapeutic dose, but patient is noncompliant. HIV infection, chronic CD4 is unknown Patient follow-up with his infectious disease physician in the outpatient setting Hypertension Diltiazem p.o. Continue to monitor Chronic microcytic anemia Iron studies Etiology unknown, possibly secondary to HIV infection Steroid-induced hyperglycemia Continue to monitor Hypocalcemia Replete as needed Patient initially meeting SIRS criteria but without signs of sepsis. Most likely secondary to chronic HIV infection and acute COPD exacerbation. CODE STATUS: Full DVT prophylaxis: Lovenox therapeutic dose due to A. fib Disposition: Case management to arrange for home oxygen. Ambulatory O2 sat test pending. Continue breathing treatments, patient needs significant home health s upport to prevent readmission to the hospital. History Interval history: Patient seen and examined, patient has a history of hospitalizations due to noncompliance with oxygen he is supposed to be on but does not know how to use. Continues to have wheezing upon presentation. Hospitalist Physical - Physical exam Narrative exam: General appearance: Present: no acute distress, well-nourished - EENT Eyes: Present: PERRL, EOM intact ENT: hearing intact, clear oral mucosa - Respiratory Respiratory effort: normal Respiratory: Continues to have bilateral wheezes in upper middle and lower lobe of the lungs, no rales rhonchi heard - Cardiovascular Rhythm: Irregular rate and rhythm Heart Sounds: Present: S1 & S2. Absent: rub, click - Extremities Extremities: no ischemia, No edema, normal temperature, normal color, Full ROM - Abdominal General gastrointestinal: soft, non-tender, non-distended, normal bowel sounds - Integumentary Integumentary: Present: clear, warm, dry, normal turgor - Neurologic Neurologic: CNII-XII intact, no focal deficits, moves all extremities - Constitutional Vitals: Temp Pulse Resp BP Pulse Ox 98.1 F 91 H 20 141/81 97 03/27/20 09:31 03/27/20 13:47 03/27/20 13:47 03/27/20 12:37 03/27/20 12:37 HEART Score - HEART Score Troponin: Troponin T < 0.010 ng/mL (0.00-0.029) 03/27/20 13:17 Results - Labs CBC & Chem 7: 03/27/20 06:47 03/27/20 06:47 Labs: Laboratory Last Values WBC 17.9 K/mm3 (4.5-11.0) H 03/27/20 06:47 RBC 3.63 M/mm3 (3.65-5.03) L 03/27/20 06:47 Hgb 8.0 gm/dl (11.8-15.2) L 03/27/20 06:47 Hct 26.3 % (35.5-45.6) L 03/27/20 06:47 MCV 73 fl (84-94) L 03/27/20 06:47 MCH 22 pg (28-32) L 03/27/20 06:47 MCHC 30 % (32-34) L 03/27/20 06:47 RDW 24.2 % (13.2-15.2) H 03/27/20 06:47 Plt Count 214 K/mm3 (140-440) 03/27/20 06:47 Add Manual Diff Complete 03/23/20 05:35 Total Counted 100 03/23/20 05:35 Seg Neutrophils % Medicare Specialist 03/23/20 05:35 Seg Neuts % (Manual) 99.0 % (40.0-70.0) H 03/23/20 05:35 Lymphocytes % (Manual) 15.0 % (13.4-35.0) 03/22/20 14:42 Monocytes % (Manual) 1.0 % (0.0-7.3) 03/23/20 05:35 Nucleated RBC % Not Reportable 03/23/20 05:35 Seg Neutrophils # Man 8.6 K/mm3 (1.8-7.7) H 03/23/20 05:35 Band Neutrophils # 0.0 K/mm3 03/23/20 05:35 Lymphocytes # (Manual) 0.0 K/mm3 (1.2-5.4) L 03/23/20 05:35 Abs React Lymphs (Man) 0.0 K/mm3 03/23/20 05:35 Monocytes # (Manual) 0.1 K/mm3 (0.0-0.8) 03/23/20 05:35 Eosinophils # (Manual) 0.0 K/mm3 (0.0-0.4) 03/23/20 05:35 Basophils # (Manual) 0.0 K/mm3 (0.0-0.1) 03/23/20 05:35 Metamyelocytes # 0.0 K/mm3 03/23/20 05:35 Myelocytes # 0.0 K/mm3 03/23/20 05:35 Promyelocytes # 0.0 K/mm3 03/23/20 05:35 Blast Cells # 0.0 K/mm3 03/23/20 05:35 WBC Morphology Not Reportable 03/23/20 05:35 Hypersegmented Neuts Not Reportable 03/23/20 05:35 Hyposegmented Neuts Not Reportable 03/23/20 05:35 Hypogranular Neuts Not Reportable 03/23/20 05:35 Smudge Cells Not Reportable 03/23/20 05:35 Toxic Granulation Not Reportable 03/23/20 05:35 Toxic Vacuolation Not Reportable 03/23/20 05:35 Dohle Bodies Not Reportable 03/23/20 05:35 Pelger-Huet Anomaly Not Reportable 03/23/20 05:35 Ruma Rods Not Reportable 03/23/20 05:35 Platelet Estimate Consistent w auto 03/23/20 05:35 Clumped Platelets Not Reportable 03/23/20 05:35 Plt Clumps, EDTA Not Reportable 03/23/20 05:35 Large Platelets Not Reportable 03/23/20 05:35 Giant Platelets Not Reportable 03/23/20 05:35 Platelet Satelliting Not Reportable 03/23/20 05:35 Plt Morphology Comment Not Reportable 03/23/20 05:35 RBC Morphology Not Reportable 03/23/20 05:35 Dimorphic RBCs Not Reportable 03/23/20 05:35 Polychromasia Not Reportable 03/23/20 05:35 Hypochromasia 2+ 03/23/20 05:35 Poikilocytosis 1+ 03/23/20 05:35 Anisocytosis 2+ 03/23/20 05:35 Microcytosis Not Reportable 03/23/20 05:35 Macrocytosis Not Reportable 03/23/20 05:35 Spherocytes Not Reportable 03/23/20 05:35 Pappenheimer Bodies Not Reportable 03/23/20 05:35 Sickle Cells Not Reportable 03/23/20 05:35 Target Cells Not Reportable 03/23/20 05:35 Tear Drop Cells Few 03/23/20 05:35 Ovalocytes 1+ 03/23/20 05:35 Helmet Cells Not Reportable 03/23/20 05:35 [place] Bodies Not Reportable 03/23/20 05:35 [place] Rings Not Reportable 03/23/20 05:35 [place] Cells Not Reportable 03/23/20 05:35 Bite Cells Not Reportable 03/23/20 05:35 Crenated Cell Not Reportable 03/23/20 05:35 Elliptocytes Few 03/23/20 05:35 Acanthocytes (Spur) Not Reportable 03/23/20 05:35 Rouleaux Not Reportable 03/23/20 05:35 Hemoglobin C Crystals Not Reportable 03/23/20 05:35 Schistocytes Not Reportable 03/23/20 05:35 Malaria parasites Not Reportable 03/23/20 05:35 Ric Bodies Not Reportable 03/23/20 05:35 Hem Pathologist Commnt No 03/23/20 05:35 PT 14.4 Sec. (12.2-14.9) 03/23/20 05:35 INR 1.13 (0.87-1.13) 03/23/20 05:35 D-Dimer 198.95 ng/mlDDU (0-234) 03/25/20 11:28 Sodium 142 mmol/L (137-145) 03/27/20 06:47 Potassium 3.9 mmol/L (3.6-5.0) 03/27/20 06:47 Chloride 99.7 mmol/L (98-107) 03/27/20 06:47 Carbon Dioxide 36 mmol/L (22-30) H 03/27/20 06:47 Anion Gap 10 mmol/L 03/27/20 06:47 BUN 31 mg/dL (9-20) H 03/27/20 06:47 Creatinine 1.0 mg/dL (0.8-1.3) 03/27/20 06:47 Estimated GFR > 60 ml/min 03/27/20 06:47 BUN/Creatinine Ratio 31 % 03/27/20 06:47 Glucose 210 mg/dL (75-100) H 03/27/20 06:47 Lactic Acid 1.50 mmol/L (0.7-2.0) 03/22/20 16:07 Calcium 6.3 mg/dL (8.4-10.2) L 03/27/20 06:47 Iron 84 ug/dL (49-181) 03/27/20 06:47 TIBC 280 mcg/dL (250-450) 03/27/20 06:47 Ferritin 37.5 ng/mL (30.0-300.0) 03/27/20 06:47 Total Bilirubin 0.40 mg/dL (0.1-1.2) 03/22/20 14:42 AST 16 units/L (5-40) 03/22/20 14:42 ALT 32 units/L (7-56) 03/22/20 14:42 Alkaline Phosphatase 62 units/L (35-129) 03/22/20 14:42 Troponin T < 0.010 ng/mL (0.00-0.029) 03/27/20 13:17 Total Protein 7.0 g/dL (6.3-8.2) 03/22/20 14:42 Albumin 3.7 g/dL (3.9-5) L 03/22/20 14:42 Albumin/Globulin Ratio 1.1 % 03/22/20 14:42 Urine Color Yellow (Yellow) 03/23/20 Unknown Urine Turbidity Clear (Clear) 03/23/20 Unknown Urine pH 5.0 (5.0-7.0) 03/23/20 Unknown Ur Specific [place] 1.015 (1.003-1.030) 03/23/20 Unknown Urine Protein 100 mg/dl mg/dL (Negative) 03/23/20 Unknown Urine Glucose (UA) >=500 mg/dL (Negative) 03/23/20 Unknown Urine Ketones Neg mg/dL (Negative) 03/23/20 Unknown Urine Blood Neg (Negative) 03/23/20 Unknown Urine Nitrite Neg (Negative) 03/23/20 Unknown Urine Bilirubin Neg (Negative) 03/23/20 Unknown Urine Urobilinogen < 2.0 mg/dL (<2.0) 03/23/20 Unknown Ur Leukocyte Esterase Neg (Negative) 03/23/20 Unknown Urine WBC (Auto) 2.0 /HPF (0.0-6.0) 03/23/20 Unknown Urine RBC (Auto) < 1.0 /HPF (0.0-6.0) 03/23/20 Unknown Urine Mucus Few /HPF 03/23/20 Unknown Urine Opiates Screen Negative 03/23/20 Unknown Urine Methadone Screen Negative 03/23/20 Unknown Ur Barbiturates Screen Negative 03/23/20 Unknown Ur Phencyclidine Scrn Negative 03/23/20 Unknown Ur Amphetamines Screen Negative 03/23/20 Unknown U Benzodiazepines Scrn Negative 03/23/20 Unknown Urine Cocaine Screen Negative 03/23/20 Unknown U Marijuana (THC) Screen Negative 03/23/20 Unknown Drugs of Abuse Note Disclamer 03/23/20 Unknown Microbiology: Microbiology 03/22/20 18:07 Peripheral/Venous Blood Culture - Preliminary NO GROWTH AFTER 4 DAYS 03/22/20 17:54 Peripheral/Venous Blood Culture - Preliminary NO GROWTH AFTER 4 DAYS [place]/IV: Voiding Method Urinal IV Catheter Type [Left Hand] Peripheral IV IV Catheter Type [Right Hand] INT / Saline Lock Active Medications - Current Medications Current Medications: Generic Name Dose Route Start Last Admin Trade Name Freq PRN Reason Stop Dose Admin Acetaminophen 650 mg 03/22/20 18:22 03/25/20 16:13 Acetaminophen 325 Mg Tab PO 650 mg Q4H PRN Administration Pain MILD(1-3)/Fever >100.5/KOENIG Al Hydrox/Mg Hydrox/Simethicone 30 ml 03/24/20 00:36 03/26/20 23:18 Alum-Mag Hydroxide-Simethicone [phone]/5ml Oral Liqd 30 Ml PO 30 ml Q6H PRN Administration Indigestion Albuterol 2.5 mg 03/23/20 20:07 Albuterol 2.5 Mg/3 Ml Nebu IH Q4HRT PRN Shortness Of Breath Aspirin 81 mg 03/24/20 10:00 03/27/20 09:30 Aspirin Ec 81 Mg Tab PO 81 mg QDAY NADIA Administration Atorvastatin Calcium 40 mg 03/24/20 22:00 03/26/20 22:05 Atorvastatin 40 Mg Tab PO 40 mg QHS NADIA Administration Budesonide 0.5 mg 03/25/20 11:15 03/27/20 08:00 Budesonide 0.5 Mg/2 Ml Nebu IH 0.5 mg Q12HRT NADIA Administration Clonazepam 1 mg 03/24/20 22:00 03/26/20 22:04 Clonazepam 0.5 Mg Tab PO 1 mg QHS NADIA Administration Diltiazem HCl 60 mg 03/24/20 15:56 03/27/20 11:44 Diltiazem 60 Mg Tab PO 60 mg Q6HR NADIA Administration Ferrous Sulfate 325 mg 03/23/20 20:00 03/27/20 14:49 Ferrous Sulfate 325 Mg Tab PO 325 mg TID NADIA Administration Levofloxacin/Dextrose 750 mg in 150 mls @ 100 mls/hr 03/23/20 17:00 03/26/20 17:24 Levaquin 750mg/150ml IV 03/27/20 18:29 100 mls/hr Q24H NADIA Administration Protocol Ipratropium Combs 0.5 mg 03/27/20 08:00 03/27/20 13:47 Ipratropium 0.02% Nebu 2.5 Ml IH 0.5 mg TIDRT NADIA Administration Magnesium Hydroxide 30 ml 03/22/20 18:22 Magnesium Hydroxide (Mom) Oral Liqd Udc PO Q4H PRN Constipation Morphine Sulfate 2 mg 03/22/20 18:22 03/27/20 12:27 Morphine 2 Mg/1 Ml Inj IV 2 mg Q4H PRN Administration Pain, Moderate (4-6) Ondansetron HCl 4 mg 03/22/20 18:22 Ondansetron 4 Mg/2 Ml Inj IV Q8H PRN Nausea And Vomiting Prednisone 30 mg 03/27/20 11:00 03/27/20 11:24 Prednisone 10 Mg Tab PO 30 mg QDAY NADIA Administration Sodium Chloride 10 ml 03/22/20 22:00 03/27/20 11:25 Sodium Chloride 0.9% 10 Ml Flush Syringe IV 10 ml BID NADIA Administration Sodium Chloride 10 ml 03/22/20 18:22 03/26/20 09:24 Sodium Chloride 0.9% 10 Ml Flush Syringe IV 10 ml PRN PRN Administration LINE FLUSH
--- NOTE | 2020-03-27 19:38 | Vascular Lab Report ---
DUPLEX DOPPLER LOWER EXTREMITY VEINS, BILATERAL INDICATION / CLINICAL INFORMATION: Afib with RVR, r/o DVT. TECHNIQUE: Duplex doppler imaging was performed through the veins of both lower extremities using venous bijal katheryn and other maneuvers. COMPARISON: None available. FINDINGS: RIGHT COMMON FEMORAL VEIN: Negative. RIGHT FEMORAL VEIN: Negative. RIGHT POPLITEAL VEIN: Negative. RIGHT CALF VEINS: Negative. LEFT COMMON FEMORAL VEIN: Negative. LEFT FEMORAL VEIN: Negative. LEFT POPLITEAL VEIN: Negative. LEFT CALF VEINS: Negative. ADDITIONAL FINDINGS: None. IMPRESSION: 1. No sonographic evidence for DVT in either lower extremity. Signer Name: Jose Moreno MD Signed: 03/27/2020 7:34 PM Workstation Name: [id number]
[2020-03-27] MEDS: clonazePAM 0.5 MG TAB PO SCH (22:30)
[2020-03-28] MEDS: dilTIAZem 60 MG TAB PO SCH ×4 (01:20→17:02)
[2020-03-28 07:17] LABS: Hematocrit 25.6 % (35.5-45.6); Mean Corpuscular HGB Conc 31 % (32-34); Mean Corpuscular Volume 73 fl (84-94); Platelet Count 166 K/mm3 (140-440); Red Blood Count 3.53 M/mm3 (3.65-5.03)
[2020-03-28 07:18] LABS: Red Cell Distribution Width 24.8 % (13.2-15.2)
[2020-03-28 07:38] LABS: BUN/Creatinine Ratio 31; Blood Urea Nitrogen 31 mg/dL (9-20); Calcium 6.1 mg/dL (8.4-10.2); Hemolysis Index 4
[2020-03-28] MEDS: BUDESONIDE 0.5 MG/2 ML NEBU IH SCH ×2 (07:42→18:24)
[2020-03-28] MEDS: IPRATROPIUM 0.02% NEBU 2.5 ML IH SCH ×3 (07:42→18:24)
[2020-03-28] MEDS: MORPHINE 2 MG/1 ML INJ IV PRN ×2 (08:46→14:52)
[2020-03-28] MEDS: ASPIRIN EC 81 MG TAB PO SCH (09:14)
[2020-03-28] MEDS: predniSONE 10 MG TAB PO SCH (09:14)
--- NOTE | 2020-03-28 10:17 | Progress Note ---
Assessment and Plan atient sleeping but arousable. Patient suppose to be on 2 litres O2. However he is not keeping his o2. Strongly recommended to keep O2 all the time. Still complaining some shortness of breath Says better than yesterday. Denies cough. Patient afebrile and has leukocytosis. Patients chest xray done 03/22/20 reported No acute air space or interstitial disease. Hyperexpansion of the lungs and changes of prior granulomatous exposure is stable. No significant pleural effusion. Venous doppler studies of legs done 03/25/20 reported no sonographic evidence of DVT. Patient has history of smoking 1 or 2 cigaretts a day for 40 years. Counseled to stop smoking. Denies alcohol abuse. Used drugs when he is young. Works in [employer]. No Known drug allergies. Patient is on Albuterol/atrovent aerosol tratments, Levaquin and Prednisone and O2 2 litres via nasal canula. Recommend DVT and GI prophylaxis. - Patient Problems (1) Asthma with acute exacerbation Current Visit: Yes Status: Acute Plan to address problem: O2 2 litres via nasal canula. Albuterol/atrovent aerosol treatments q 6 hours. Continue PO prednisone. Recommend DVT and GI prophylaxis. (2) ANGELIC (acute kidney injury) Current Visit: No Status: Acute Plan to address problem: Management as per nephrology. (3) Acute respiratory failure with hypoxia Current Visit: No Status: Acute Plan to address problem: O2 2 litres via nasal canula. Albuterol/atrovent aerosol treatments q 6 hours. Continue PO prednisone. ABGs on O2. Recommend DVT and GI prophylaxis. (4) GERD (gastroesophageal reflux disease) Current Visit: No Status: Acute Plan to address problem: Recommend Prilosec or protonix or any other proton pump inhibitor. (5) History of HIV infection Current Visit: No Status: Acute Plan to address problem: Management as per primary care and infectious diseases. (6) Cocaine use Current Visit: No Status: Chronic Plan to address problem: Counseled not use illegal drugs. (7) Tobacco use Current Visit: No Status: Chronic Plan to address problem: Counseled to stop smoking. Subjective Date of service: 03/28/20 Principal diagnosis: Atrial fibrillation with RVR Interval history: Patient sleeping but arousable. Patient suppose to be on 2 litres O2. However he is not keeping his o2. Strongly recommended to keep O2 all the time. Still complaining some shortness of breath Says better than yesterday. Denies cough. Patient afebrile and has leukocytosis. Patients chest xray done 03/22/20 reported No acute air space or interstitial disease. Hyperexpansion of the lungs and changes of prior granulomatous exposure is stable. No significant pleural effusion. Venous doppler studies of legs done 03/25/20 reported no sonographic evidence of DVT. Patient has history of smoking 1 or 2 cigaretts a day for 40 years. Counseled to stop smoking. Denies alcohol abuse. Used drugs when he is young. Works in [employer]. No Known drug allergies. Patient is on Albuterol/atrovent aerosol tratments, Levaquin and Prednisone and O2 2 litres via nasal canula. Recommend DVT and GI prophylaxis. Objective Vital Signs - 12hr 03/27/20 03/28/20 03/28/20 23:27 00:00 04:09 Temperature 98.0 F 98.0 F Pulse Rate 99 H 99 H 90 Pulse Rate [ Anterior Bilateral Throughout] Respiratory 24 20 Rate Respiratory Rate [Anterior Bilateral Throughout] Blood Pressure 136/90 126/73 Blood Pressure [Left] O2 Sat by Pulse 98 90 Oximetry 03/28/20 03/28/20 03/28/20 06:19 07:42 08:42 Temperature 97.3 F L Pulse Rate 90 89 Pulse Rate [ 94 H Anterior Bilateral Throughout] Respiratory 17 Rate Respiratory 16 Rate [Anterior Bilateral Throughout] Blood Pressure Blood Pressure 121/73 [Left] O2 Sat by Pulse 94 Oximetry 03/28/20 08:46 Temperature Pulse Rate Pulse Rate [ Anterior Bilateral Throughout] Respiratory 17 Rate Respiratory Rate [Anterior Bilateral Throughout] Blood Pressure Blood Pressure [Left] O2 Sat by Pulse Oximetry Constitutional: no acute distress, asleep, other (Mild shortness of breath at rest.) Eyes: non-icteric ENT: oropharynx moist Neck: supple, no lymphadenopathy Ascultation: Bilateral: other (Prolonged expiratory phase.) Cardiovascular: regular rate and rhythm Gastrointestinal: normoactive bowel sounds, soft, non-tender Integumentary: normal Extremities: no cyanosis, no edema Neurologic: normal mental status, non-focal exam, pupils equal and round, CN II- XII normal Psychiatric: mood appropriate CBC and BMP: 03/28/20 07:01 03/28/20 07:01 ABG, PT/INR, D-dimer: PT/INR, D-dimer PT 14.4 Sec. (12.2-14.9) 03/23/20 05:35 INR 1.13 (0.87-1.13) 03/23/20 05:35 D-Dimer 198.95 ng/mlDDU (0-234) 03/25/20 11:28 Abnormal lab findings: Abnormal Labs 03/22/20 03/22/20 03/23/20 14:42 14:42 05:35 WBC 17.0 H RBC Hgb 10.1 L 8.6 L Hct 33.8 L 27.4 L D MCV 73 L 71 L MCH 22 L 22 L MCHC 30 L 31 L RDW 23.7 H 23.5 H Seg Neuts % (Manual) 77.0 H 99.0 H Monocytes % (Manual) 8.0 H Seg Neutrophils # Man 13.1 H 8.6 H Lymphocytes # (Manual) 0.0 L Monocytes # (Manual) 1.4 H Chloride 97.8 L Carbon Dioxide 38 H BUN 32 H Creatinine Glucose 117 H Calcium 6.9 L Albumin 3.7 L 03/23/20 03/25/20 03/25/20 05:35 04:24 04:24 WBC 15.5 H RBC Hgb 9.0 L Hct 29.3 L MCV 73 L MCH 22 L MCHC 31 L RDW 23.9 H Seg Neuts % (Manual) Monocytes % (Manual) Seg Neutrophils # Man Lymphocytes # (Manual) Monocytes # (Manual) Chloride 96.4 L Carbon Dioxide 35 H 32 H BUN 32 H 43 H Creatinine 1.4 H Glucose 229 H 223 H Calcium 6.4 L 6.9 L Albumin 03/26/20 03/27/20 03/27/20 06:04 06:47 06:47 WBC 17.9 H RBC 3.63 L Hgb 8.0 L Hct 26.3 L MCV 73 L MCH 22 L MCHC 30 L RDW 24.2 H Seg Neuts % (Manual) Monocytes % (Manual) Seg Neutrophils # Man Lymphocytes # (Manual) Monocytes # (Manual) Chloride 97.2 L Carbon Dioxide 33 H 36 H BUN 34 H 31 H Creatinine Glucose 212 H 210 H Calcium 6.9 L 6.3 L Albumin 03/28/20 03/28/20 07:01 07:01 WBC 15.9 H RBC 3.53 L Hgb 8.0 L Hct 25.6 L MCV 73 L MCH 23 L MCHC 31 L RDW 24.8 H Seg Neuts % (Manual) Monocytes % (Manual) Seg Neutrophils # Man Lymphocytes # (Manual) Monocytes # (Manual) Chloride Carbon Dioxide 34 H BUN 31 H Creatinine Glucose 174 H Calcium 6.1 L Albumin Allied health notes reviewed: nursing
--- NOTE | 2020-03-28 15:34 | Discharge Summary ---
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 Hospitalization Condition: Stable Disposition: DC/[place]-06 HOME UNDER HOME [facility] Time spent for discharge: 34 minutes Core Measure Documentation - Palliative Care Palliative Care/ Comfort Measures: Not Applicable - Core Measures Any of the following diagnoses?: none Exam - Constitutional Vitals: Temp Pulse Resp BP Pulse Ox 97.1 F L 92 H 16 132/85 99 03/28/20 13:02 03/28/20 13:36 03/28/20 14:52 03/28/20 13:08 03/28/20 13:02 Plan Activity: advance as tolerated Weight Bearing Status: Weight Bear as Tolerated Diet: low fat, low salt Special Instructions: home oxygen via (2L n/c) Follow up with: PRIMARY MD DONATO [Primary Care Provider] - 3-5 Days CATRACHITA RAE MD [Staff Physician] - 7 Days Prescriptions: dilTIAZem CD [Cardizem CD] 240 mg PO QDAY #30 capsule predniSONE [Deltasone] 20 mg PO BID #10
[2020-03-28 19:44] VITALS: BP 121/76
[2020-03-28] MEDS: ACETAMINOPHEN 325 MG TAB PO PRN (20:23)
[2020-03-29] MEDS: BUDESONIDE 0.5 MG/2 ML NEBU IH SCH (01:07)
[2020-03-29] MEDS: IPRATROPIUM 0.02% NEBU 2.5 ML IH SCH (01:07)
== END 2020-03-28 20:34 | disposition home health service (06) | DRG 189 ==
LOC: ED 13:24 → 4A 18:03 → 3B-SURG 20:12 → CC1 03-24 00:40 → 4A 03-26 14:34
PROVIDERS: ADMIT Internal Medicine Geriatric Medicine; ATTEND Internal Medicine
PROC: 4A033R1 Measurement of Arterial Saturation, Peripheral, Percutaneous Approach (ICD-10-PCS; principal; 2020-03-28)
DX: J96.01 Acute respiratory failure with hypoxia (principal); N17.0 Acute kidney failure with tubular necrosis; J44.1 Chronic obstructive pulmonary disease with (acute) exacerbation; E44.0 Moderate protein-calorie malnutrition; R65.10 Systemic inflammatory response syndrome (SIRS) of non-infectious origin without acute organ dysfunction; E78.5 Hyperlipidemia, unspecified; I10 Essential (primary) hypertension; I48.0 Paroxysmal atrial fibrillation; D50.9 Iron deficiency anemia, unspecified; G89.29 Other chronic pain; I25.10 Atherosclerotic heart disease of native coronary artery without angina pectoris; F14.10 Cocaine abuse, uncomplicated; K21.9 Gastro-esophageal reflux disease without esophagitis; F17.210 Nicotine dependence, cigarettes, uncomplicated; E83.51 Hypocalcemia; R73.9 Hyperglycemia, unspecified; T38.0X5A Adverse effect of glucocorticoids and synthetic analogues, initial encounter; Y92.89 Other specified places as the place of occurrence of the external cause; Z86.711 Personal history of pulmonary embolism; Z79.899 Other long term (current) drug therapy; Z91.14 Patient's other noncompliance with medication regimen; Z68.24 Body mass index [BMI] 24.0-24.9, adult; Z71.6 Tobacco abuse counseling; Z99.81 Dependence on supplemental oxygen; Z21 Asymptomatic human immunodeficiency virus [HIV] infection status
CPT/HCPCS: 36415; 36600; 71046; 80048; 80053; 80307; 81001; 82140; 82728; 82805; 83550; 84484; 85007; 85025; 85027; 85379; 85610; 87040; 93005; 93970; 94640; 94644; 94760; 96374; 96375; 96376; G0378; A9270-GY; J0610; J1650; J1956; J2270; J2920; J2930; J7512

== ENCOUNTER 2020-04-27 09:11 | Emergency (ER) | payer MEDICARE ==
--- NOTE | 2020-04-27 10:01 | Emergency Department Report ---
ED General Adult HPI - General Chief complaint: Dyspnea/Respdistress Stated complaint: RESPIRATORY DISTRESS PUI?: Yes Time Seen by Provider: 04/27/20 09:16 Source: patient, EMS (Verbal report received from emergency medical services), RN notes reviewed, old records reviewed Mode of arrival: Stretcher Limitations: No Limitations - History of Present Illness Initial comments: The patient was evaluated in the emergency department for symptoms described in the history of present illness. He/she was evaluated in the context of the global COVID-19 pandemic, which necessitated consideration that the patient might be at risk for infection with the virus that causes COVID-19. Institutional protocols and algorithms that pertain to the evaluation of patients at risk for COVID-19 are in a state of rapid change based on informati on released by regulatory bodies including the CDC and federal and state organizations. These policies and algorithms were followed during the patient's care in the emergency department. Please note that these policies, procedures and recommendations changed on a rapid basis. During the entire history and physical examination, I had on complete personal protective equipment. The patient is a 64-year-old gentleman. He has a past medical history of COPD, chronic respiratory failure, HIV, noncompliance, crack cocaine use, and is a frequent utilizer of this emergency room. He also is on chronic home oxygen. He was recently admitted to this hospital for COPD exacerbation, and had a CT angiogram of his chest which was negative for acute/significant findings. The patient is brought to the hospital today by emergency medical services with a complaint of chest tightness, cough, shortness of breath. EMS treated the patient with albuterol, magnesium, and steroids in the field. The patient is feeling improved. The patient has chronic chest tightness. He denies fever, loss of taste and smell. He denies hematemesis and bright red blood per rectum. He is not homicidal or suicidal. He states that he has not recently used crack cocaine. -: Gradual, hour(s) Location: chest Radiation: non-radiation Severity scale (0 -10): 0 Quality: aching Consistency: constant Improves with: none Worsens with: none - Related Data Previous Rx's Medication Instructions Recorded Last Taken Type Albuterol Mdi (or & Nicu Only) 2 puff IH QID PRN #1 inhalation 04/11/20 Unknown Rx [ProAir HFA Inhaler] Aspirin EC [Halfprin EC] 81 mg PO QDAY #30 tablet.dr 04/11/20 Unknown Rx AtorvaSTATin [Lipitor] 40 mg PO QHS tablet 04/11/20 Unknown Rx AtorvaSTATin [Lipitor] 40 mg PO QHS #30 tablet 04/11/20 Unknown Rx Ipratropium/Albuterol Sulfate 1 ampul IH TIDRT #1 ampul.neb 04/11/20 Unknown Rx [DUONEB *Not for PRN Use*] Montelukast (Nf) [Singulair] 5 mg PO QPM #20 tab.chew 04/11/20 Unknown Rx Montelukast [Singulair] 10 mg PO QHS tablet 04/11/20 Unknown Rx Pantoprazole [Protonix TAB] 40 mg PO QDAC #30 tablet 04/11/20 Unknown Rx dilTIAZem CD [Cardizem CD] 240 mg PO QDAY capsule 04/11/20 Unknown Rx dilTIAZem CD [Cardizem CD] 240 mg PO QDAY #30 capsule 04/11/20 Unknown Rx levoFLOXacin [Levaquin TAB] 500 mg PO Q24H #7 tablet 04/11/20 Unknown Rx methylPREDNISolone [Medrol 4MG 4 mg PO QAM #1 tab.ds.pk 04/11/20 Unknown Rx DOSEPAK (21 tabs)] oxyCODONE /ACETAMINOPHEN [Percocet 1 tab PO Q6H PRN #8 tablet 04/11/20 Unknown Rx 5/325 mg] Albuterol Sulfate [Proair 90 mcg IH Q4HR PRN #2 aer.pow.ba 04/27/20 Unknown Rx Respiclick] Calcium Carbonate [Calcium 400 mg PO QDAY #30 tab.chew 04/27/20 Unknown Rx Carbonate 400MG CHEW] Docusate Sodium [Colace] 100 mg PO BID PRN #60 capsule 04/27/20 Unknown Rx Ferrous Sulfate [Feosol 325 MG tab] 325 mg PO BID #60 tablet 04/27/20 Unknown Rx methylPREDNISolone [Medrol 4MG 4 mg PO QDAY #1 tab.ds.pk 04/27/20 Unknown Rx DOSEPAK (21 tabs)] Allergies Allergy/AdvReac Type Severity Reaction Status Date / Time No Known Allergies Allergy Verified 01/28/20 15:32 ED Review of Systems ROS: Stated complaint: RESPIRATORY DISTRESS Other details as noted in HPI Constitutional: malaise. denies: fever Eyes: denies: eye discharge Respiratory: cough, shortness of breath Cardiovascular: chest pain Gastrointestinal: denies: abdominal pain, hematemesis, melena, hematochezia Musculoskeletal: denies: back pain Neurological: weakness Hematological/Lymphatic: denies: easy bleeding ED Past Medical Hx - Past Medical History Hx Hypertension: Yes Hx Heart Attack/AMI: No Hx Congestive Heart Failure: No Hx Diabetes: No Hx Deep Vein Thrombosis: No Hx Pulmonary Embolism: Yes Hx Renal Disease: No Hx Sickle Cell Disease: No Hx Arthritis: No Hx Kidney Stones: No Hx Asthma: Yes Hx COPD: Yes (Home O2) Hx Tuberculosis: No Hx HIV: Yes Additional medical history: Elevated Cholesterol & Chronic back pain. - Surgical History Hx Coronary Stent: No Hx Open Heart Surgery: No Hx Pacemaker: No Hx Internal Defibrillator: No Hx Cholecystectomy: No Hx Appendectomy: No - Social History Smoking Status: Former Smoker - Medications Home Medications: Home Medications Medication Instructions Recorded Confirmed Last Taken Type Albuterol Mdi (or & Nicu Only) 2 puff IH QID PRN #1 inhalation 04/11/20 04/27/20 Unknown Rx [ProAir HFA Inhaler] Aspirin EC [Halfprin EC] 81 mg PO QDAY #30 tablet. 04/11/20 04/27/20 Unknown Rx AtorvaSTATin [Lipitor] 40 mg PO QHS tablet 04/11/20 04/27/20 Unknown Rx AtorvaSTATin [Lipitor] 40 mg PO QHS #30 tablet 04/11/20 04/27/20 Unknown Rx Ipratropium/Albuterol Sulfate 1 ampul IH TIDRT #1 ampul.neb 04/11/20 04/27/20 Unknown Rx [DUONEB *Not for PRN Use*] Montelukast (Nf) [Singulair] 5 mg PO QPM #20 tab.chew 04/11/20 04/27/20 Unknown Rx Montelukast [Singulair] 10 mg PO QHS tablet 04/11/20 04/27/20 Unknown Rx Pantoprazole [Protonix TAB] 40 mg PO QDAC #30 tablet 04/11/20 04/27/20 Unknown Rx dilTIAZem CD [Cardizem CD] 240 mg PO QDAY capsule 04/11/20 04/27/20 Unknown Rx dilTIAZem CD [Cardizem CD] 240 mg PO QDAY #30 capsule 04/11/20 04/27/20 Unknown Rx levoFLOXacin [Levaquin TAB] 500 mg PO Q24H #7 tablet 04/11/20 04/27/20 Unknown Rx methylPREDNISolone [Medrol 4MG 4 mg PO QAM #1 tab.ds.pk 04/11/20 04/27/20 Unknown Rx DOSEPAK (21 tabs)] oxyCODONE /ACETAMINOPHEN [Percocet 1 tab PO Q6H PRN #8 tablet 04/11/20 04/27/20 Unknown Rx 5/325 mg] Albuterol Sulfate [Proair 90 mcg IH Q4HR PRN #2 aer.pow.ba 04/27/20 Unknown Rx Respiclick] Calcium Carbonate [Calcium 400 mg PO QDAY #30 tab.chew 04/27/20 Unknown Rx Carbonate 400MG CHEW] Docusate Sodium [Colace] 100 mg PO BID PRN #60 capsule 04/27/20 Unknown Rx Ferrous Sulfate [Feosol 325 MG tab] 325 mg PO BID #60 tablet 04/27/20 Unknown Rx methylPREDNISolone [Medrol 4MG 4 mg PO QDAY #1 tab.ds.pk 04/27/20 Unknown Rx DOSEPAK (21 tabs)] ED Physical Exam - General Limitations: No Limitations General appearance: alert, in no apparent distress - Head Head exam: Present: atraumatic, normocephalic - Eye Eye exam: Present: normal appearance, EOMI. Absent: nystagmus - ENT ENT exam: Present: normal exam, normal orophraynx, mucous membranes moist, normal external ear exam - Neck Neck exam: Present: normal inspection, full ROM. Absent: tenderness, meningismus - Respiratory Respiratory exam: Present: decreased breath sounds. Absent: respiratory distress, wheezes, rales, rhonchi, stridor - Cardiovascular Cardiovascular Exam: Present: normal rhythm, tachycardia, normal heart sounds. Absent: bradycardia, irregular rhythm, systolic murmur, diastolic murmur, rubs, gallop - GI/Abdominal GI/Abdominal exam: Present: soft. Absent: distended, tenderness, guarding, rebound, rigid, pulsatile mass - Rectal Rectal exam: Present: deferred - Extremities Exam Extremities exam: Present: normal inspection, full ROM, other (2+ pulses noted in the bilateral upper and lower extremities. There is no palpable cord. negative Homans sign. Muscular compartments are soft. The pelvis is stable.). Absent: pedal edema, calf tenderness - Back Exam Back exam: Present: normal inspection, full ROM. Absent: tenderness, CVA tenderness (R), CVA tenderness (L), paraspinal tenderness, vertebral tenderness - Neurological Exam Neurological exam: Present: alert, other (No facial droop. Tongue midline. Extraocular movements intact bilaterally. Facial sensation intact to light touch in V1, V2, V3 distribution bilaterally. 5 and a 5 strength in 4 extremit ies. Sensation intact to light touch in 4 extremities.). Absent: motor sensory deficit - Psychiatric Psychiatric exam: Present: normal affect, normal mood. Absent: homicidal ideation, suicidal ideation - Skin Skin exam: Present: warm, dry, intact, normal color. Absent: rash ED Course Vital Signs 04/27/20 04/27/20 04/27/20 09:18 09:23 09:30 Temperature 97.3 F L Pulse Rate 112 H 108 H Respiratory 22 29 H 21 Rate Blood Pressure 136/81 Blood Pressure 140/87 [Left] O2 Sat by Pulse 97 100 Oximetry 04/27/20 04/27/20 04/27/20 09:46 10:00 10:16 Temperature Pulse Rate 102 H 104 H Respiratory 25 H 28 H 27 H Rate Blood Pressure 120/84 147/83 125/81 Blood Pressure [Left] O2 Sat by Pulse 100 100 100 Oximetry 04/27/20 04/27/20 04/27/20 10:30 10:46 11:00 Temperature Pulse Rate Respiratory 23 18 20 Rate Blood Pressure 137/80 120/68 145/88 Blood Pressure [Left] O2 Sat by Pulse 100 100 99 Oximetry - Reevaluation(s) Reevaluation #1: 04/27/20 12:42 Tachycardia likely secondary to albuterol administration. 04/27/20 13:23 Patient had a cardiac catheterization in 2019, which showed minimal luminal disease. Medical management was recommended. Given that chest tightness is present for days, weeks and month, multiple negative troponins, chronicity of symptoms, frequency and presentation to this emergency room, do not see indication for repeat cardiac risk ratification at this time. Anemia is chronic, slightly worse than baseline, this is likely progression of patient's chronic disease. ED Medical Decision Making - Lab Data Result diagrams: 04/27/20 10:53 04/27/20 10:53 Vital Signs 04/27/20 04/27/20 04/27/20 09:18 09:23 09:30 Temperature 97.3 F L Pulse Rate 112 H 108 H Respiratory 22 29 H 21 Rate Blood Pressure 136/81 Blood Pressure 140/87 [Left] O2 Sat by Pulse 97 100 Oximetry 04/27/20 04/27/20 04/27/20 09:46 10:00 10:16 Temperature Pulse Rate 102 H 104 H Respiratory 25 H 28 H 27 H Rate Blood Pressure 120/84 147/83 125/81 Blood Pressure [Left] O2 Sat by Pulse 100 100 100 Oximetry 04/27/20 04/27/20 04/27/20 10:30 10:46 11:00 Temperature Pulse Rate Respiratory 23 18 20 Rate Blood Pressure 137/80 120/68 145/88 Blood Pressure [Left] O2 Sat by Pulse 100 100 99 Oximetry Lab Results 04/27/20 04/27/20 04/27/20 Range/Units 10:53 10:53 10:53 WBC 13.3 H (4.5-11.0) K/mm3 RBC 2.94 L (3.65-5.03) M/mm3 Hgb 6.8 L (11.8-15.2) gm/dl Hct 21.9 L (35.5-45.6) % MCV 75 L (84-94) fl MCH 23 L (28-32) pg MCHC 31 L (32-34) % RDW 26.1 H (13.2-15.2) % Plt Count 498 H (140-440) K/mm3 PT 13.6 (12.2-14.9) Sec. INR 1.06 (0.87-1.13) Sodium 144 (137-145) mmol/L Potassium 3.5 L (3.6-5.0) mmol/L Chloride 103.0 (98-107) mmol/L Carbon Dioxide 28 (22-30) mmol/L Anion Gap 17 mmol/L BUN 14 (9-20) mg/dL Creatinine 1.1 (0.8-1.3) mg/dL Estimated GFR > 60 ml/min BUN/Creatinine Ratio 13 % Glucose 128 H (75-100) mg/dL Calcium 6.6 L (8.4-10.2) mg/dL Magnesium 2.50 H (1.7-2.3) mg/dL Total Creatine Kinase 127 (55-170) units/L Troponin T < 0.010 (0.00-0.029) ng/mL Salicylates (2.8-20.0) mg/dL Acetaminophen (10.0-30.0) ug/mL 04/27/20 04/27/20 Range/Units 10:53 10:53 WBC (4.5-11.0) K/mm3 RBC (3.65-5.03) M/mm3 Hgb (11.8-15.2) gm/dl Hct (35.5-45.6) % MCV (84-94) fl MCH (28-32) pg MCHC (32-34) % RDW (13.2-15.2) % Plt Count (140-440) K/mm3 PT (12.2-14.9) Sec. INR (0.87-1.13) Sodium (137-145) mmol/L Potassium (3.6-5.0) mmol/L Chloride (98-107) mmol/L Carbon Dioxide (22-30) mmol/L Anion Gap mmol/L BUN (9-20) mg/dL Creatinine (0.8-1.3) mg/dL Estimated GFR ml/min BUN/Creatinine Ratio % Glucose (75-100) mg/dL Calcium (8.4-10.2) mg/dL Magnesium (1.7-2.3) mg/dL Total Creatine Kinase (55-170) units/L Troponin T (0.00-0.029) ng/mL Salicylates 1.3 L (2.8-20.0) mg/dL Acetaminophen 5.0 L (10.0-30.0) ug/mL - EKG Data -: EKG Interpreted by [facility] EKG shows normal: sinus rhythm Rate: normal - EKG Data Interpretation: unchanged when compared t 04/27/20 12:34 EKG, time of interpretation: 11: 20 2 AM Sinus rhythm, tachycardia, QTC prolonged, motion artifact, left ventricular hypertrophy. This is an abnormal EKG. This is not a STEMI. Unchanged from prior EKG from March 2020 - Radiology Data Radiology results: pending, report reviewed, image reviewed X-ray the chest negative for acute finding CHEST 1 VIEW INDICATION / CLINICAL INFORMATION: cp. COMPARISON: 04/08/2020 FINDINGS: SUPPORT DEVICES: None. HEART / MEDIASTINUM: No significant a bnormality. LUNGS / PLEURA: No significant pulmonary or pleural abnormality. No pneumothorax. ADDITIONAL FINDINGS: No significant additional findings. IMPRESSION: No acute disease or interval change from 04/08/2020 Signer Name: Leno Monzon MD FACR Signed: 04/27/2020 10:46 AM - Medical Decision Making Differential diagnosis, including but not limited to: Pneumonia, co stochondritis, COPD, COVID-19, coronary artery disease Assessment and plan: 64-year-old gentleman who is a frequent utilizer of this emergency department. I am very familiar with this patient. He is alert and oriented that at this time, and clinically sober. On my initial assessment, he is sleeping in his stretcher and in no acute distress, saturating at 99/100% on chronic supplemental oxygen. He was recently ruled out for pulmonary embolism at this facility. On trial of ambulation, with supplemental oxygen, oxygen saturation lowest point 89%, and in the low 90s. X-ray the chest is clear. Troponin negative. Symptoms present for days, weeks and months. This patient frequently complains of chest tightness, his EKG is unchanged from prior. Serum toxicology study unremarkable. Denies hematemesis and bright red blood per rectum, has chronic anemia. Patient does not meet criteria for admission/hospitalization at this time. He will need to follow-up with his outpatient primary care doctor for his multiple chronic medical issues. Critical care attestation.: If time is entered above; I have spent that time in minutes in the direct care of this critically ill patient, excluding procedure time. ED Disposition Clinical Impression: COPD (chronic obstructive pulmonary disease), Person under investigation for COVID-19, History of HIV infection, Anemia Disposition: DC- TO HOME OR SELFCARE Is pt being admited?: No Does the pt Need Aspirin: No Condition: Good Instructions: Chronic Obstructive Pulmonary Disease (ED) Additional Instructions: Please continue current outpatient medications. Take the iron sulfate supplementation as directed. This medication may cause constipation, black stool. Take the Colace as needed for constipation. Take the albuterol and steroids as directed. Take the calcium carbonate as directed. Follow-up with a primary care doctor within the next week. Follow-up with your cardiopulmonary technologist chief within the next month. Follow-up with your HIV specialist within the next month. Please return to the emergency room right away with new pain, worsened pain, migration of pain, projectile vomiting, change in mental status, confusion, inability to tolerate liquid feeds, new, worsened or different symptoms not present on the initial emergency room evaluation. Prescriptions: Calcium Carbonate [Calcium Carbonate 400MG CHEW] 400 mg PO QDAY #30 tab.chew Docusate Sodium [Colace] 100 mg PO BID PRN #60 capsule PRN Reason: Constip Unreliev By Mom/Or Npo Ferrous Sulfate [Feosol 325 MG tab] 325 mg PO BID #60 tablet methylPREDNISolone [Medrol 4MG DOSEPAK (21 tabs)] 4 mg PO QDAY #1 tab.ds.pk Albuterol Sulfate [Proair Respiclick] 90 mcg IH Q4HR PRN #2 aer.pow.ba PRN Reason: Wheezing Referrals: [facility] [Provider Group] - 3-5 Days CONY SIMPSON MD [Staff Physician] - 3-5 Days (Primary care) PIPPA SHANNON MD [Staff Physician] - as needed (Pulmonology/lung) JAMI MANCINI MD [Staff Physician] - as needed (Infectious disease)
[2020-04-27] MEDS ORDERED: LACTATED RINGERS 1,000 ML IV ONE (10:37)
[2020-04-27] MEDS ORDERED: FAMOTIDINE 20 MG TAB PO ONE (10:37)
[2020-04-27 11:09] LABS: Hematocrit 21.9 % (35.5-45.6); Hemoglobin 6.8 gm/dl (11.8-15.2); Mean Corpuscular HGB Conc 31 % (32-34); Mean Corpuscular Volume 75 fl (84-94); Platelet Count 498 K/mm3 (140-440); Red Blood Count 2.94 M/mm3 (3.65-5.03)
[2020-04-27 11:13] LABS: Red Cell Distribution Width 26.1 % (13.2-15.2)
[2020-04-27 11:19] LABS: INR 1.06 (0.87-1.13)
[2020-04-27 11:41] LABS: BUN/Creatinine Ratio 13; Blood Urea Nitrogen 14 mg/dL (9-20); Calcium 6.6 mg/dL (8.4-10.2); Hemolysis Index 0
--- NOTE | 2020-04-27 11:50 | XRay Report ---
CHEST 1 VIEW INDICATION / CLINICAL INFORMATION: cp. COMPARISON: 04/08/2020 FINDINGS: SUPPORT DEVICES: None. HEART / MEDIASTINUM: No significant abnormality. LUNGS / PLEURA: No significant pulmonary or pleural abnormality. No pneumothorax. ADDITIONAL FINDINGS: No significant additional findings. IMPRESSION: No acute disease or interval change from 04/08/2020 Signer Name: Leno Monzon MD FACR Signed: 04/27/2020 11:46 AM Workstation Name: [id number]
[2020-04-27] MEDS ORDERED: CALCIUM CARBONATE 500 MG TAB CHEW PO ONE (11:52)
[2020-04-27] MEDS ORDERED: FERROUS SULFATE 325 MG TAB PO ONE (11:52)
[2020-04-27] MEDS ORDERED: CALCIUM GLUCONATE 2,000 MG in SODIUM CHLORIDE 0.9% 100 ML IV ONE (12:30)
[2020-04-27 17:53] VITALS: BP 139/97
== END 2020-04-27 17:40 | disposition home or self-care (01) ==
LOC: ED 09:11
DX: J44.9 Chronic obstructive pulmonary disease, unspecified (principal); D64.9 Anemia, unspecified; Z21 Asymptomatic human immunodeficiency virus [HIV] infection status; I10 Essential (primary) hypertension; Z87.891 Personal history of nicotine dependence; Z79.2 Long term (current) use of antibiotics; Z79.899 Other long term (current) drug therapy
CPT/HCPCS: 36415; 71045; 80048; 82550; 83735; 84484; 85027; 85610; 93005; 96361; 96365; 99284; J0610; J7120; 80320; G0480

== ENCOUNTER 2020-05-05 05:34 | Emergency (ER) | payer MEDICARE ==
[2020-05-05] MEDS ORDERED: ALBUTEROL 2.5 MG/3 ML NEBU IH ONE (06:12)
[2020-05-05] MEDS ORDERED: IPRATROPIUM 0.02% NEBU 2.5 ML IH ONE (06:12)
[2020-05-05] MEDS ORDERED: oxyCODONE /ACETAMINOPHEN 5-325MG TAB PO ONE (06:13)
[2020-05-05] MEDS ORDERED: DOXYCYCLINE 100 MG CAP PO ONE (06:21)
[2020-05-05] MEDS ORDERED: predniSONE 20 MG TAB PO ONE (06:21)
--- NOTE | 2020-05-05 06:21 | Emergency Department Report ---
ED Shortness of Breath HPI - General Chief Complaint: Dyspnea/Respdistress Stated Complaint: RICKY/CHEST PAIN NON CARDIAC Time Seen by Provider: 05/05/20 06:10 Source: EMS Mode of arrival: Stretcher Limitations: No Limitations - History of Present Illness Initial Comments: Chief complaint: "I have trouble breathing." HPI: This is a 64 yo male with hx of HIV, COPD on 2 liters NC, HTN, cocaine use, pulmonary embolism, GERD who presents with shortness of breath via EMS. Shortness of breath present for 3 days. He does [place] see his PCP [place] MD Complaint: shortness of breath, cough -: Gradual, days(s) (3 days) Severity: severe Consistency: constant Improves With: oxygen Worsens With: lying flat Known History Of: COPD Context: medication noncompliance, other (cocaine use) Associated Symptoms: denies other symptoms - Related Data Previous Rx's Medication Instructions Recorded Last Taken Type Albuterol Mdi (or & Nicu Only) 2 puff IH QID PRN #1 inhalation 04/11/20 Unknown Rx [ProAir HFA Inhaler] Aspirin EC [Halfprin EC] 81 mg PO QDAY #30 tablet. 04/11/20 Unknown Rx AtorvaSTATin [Lipitor] 40 mg PO QHS tablet 04/11/20 Unknown Rx AtorvaSTATin [Lipitor] 40 mg PO QHS #30 tablet 04/11/20 Unknown Rx Ipratropium/Albuterol Sulfate 1 ampul IH TIDRT #1 ampul.neb 04/11/20 Unknown Rx [DUONEB *Not for PRN Use*] Montelukast (Nf) [Singulair] 5 mg PO QPM #20 tab.chew 04/11/20 Unknown Rx Montelukast [Singulair] 10 mg PO QHS tablet 04/11/20 Unknown Rx Pantoprazole [Protonix TAB] 40 mg PO QDAC #30 tablet 04/11/20 Unknown Rx dilTIAZem CD [Cardizem CD] 240 mg PO QDAY capsule 04/11/20 Unknown Rx dilTIAZem CD [Cardizem CD] 240 mg PO QDAY #30 capsule 04/11/20 Unknown Rx levoFLOXacin [Levaquin TAB] 500 mg PO Q24H #7 tablet 04/11/20 Unknown Rx methylPREDNISolone [Medrol 4MG 4 mg PO QAM #1 tab.ds.pk 04/11/20 Unknown Rx DOSEPAK (21 tabs)] oxyCODONE /ACETAMINOPHEN [Percocet 1 tab PO Q6H PRN #8 tablet 04/11/20 Unknown Rx 5/325 mg] Albuterol Sulfate [Proair 90 mcg IH Q4HR PRN #2 aer.pow.ba 04/27/20 Unknown Rx Respiclick] Calcium Carbonate [Calcium 400 mg PO QDAY #30 tab.chew 04/27/20 Unknown Rx Carbonate 400MG CHEW] Docusate Sodium [Colace] 100 mg PO BID PRN #60 capsule 04/27/20 Unknown Rx Ferrous Sulfate [Feosol 325 MG tab] 325 mg PO BID #60 tablet 04/27/20 Unknown Rx methylPREDNISolone [Medrol 4MG 4 mg PO QDAY #1 tab.ds.pk 04/27/20 Unknown Rx DOSEPAK (21 tabs)] Albuterol Mdi (or & Nicu Only) 2 puff IH QID PRN #8.5 gram 05/05/20 Unknown Rx [ProAir HFA Inhaler] Doxycycline Hyclate [Doxycycline 100 mg PO Q12HR 7 Days #14 tab 05/05/20 Unknown Rx Hyclate TAB] Prednisone [predniSONE 10 mg 10 mg PO .TAPER #1 tab.ds.pk 05/05/20 Unknown Rx (6-Day Pack, 21 Tabs)] Allergies Allergy/AdvReac Type Severity Reaction Status Date / Time No Known Allergies Allergy Verified 01/28/20 15:32 ED Review of Systems ROS: Stated complaint: RICKY/CHEST PAIN NON CARDIAC Other details as noted in HPI Comment: All other systems reviewed and negative Constitutional: denies: fever, malaise Respiratory: cough, shortness of breath, wheezing Gastrointestinal: denies: abdominal pain, nausea, vomiting ED Past Medical Hx - Past Medical History Previous Medical History?: Yes Hx Hypertension: Yes Hx Heart Attack/AMI: No Hx Congestive Heart Failure: No Hx Diabetes: No Hx Deep Vein Thrombosis: No Hx Pulmonary Embolism: Yes Hx Renal Disease: No Hx Sickle Cell Disease: No Hx Arthritis: No Hx Kidney Stones: No Hx Asthma: Yes Hx COPD: Yes (Home O2) Hx Tuberculosis: No Hx HIV: Yes Additional medical history: Elevated Cholesterol & Chronic back pain. - Surgical History Past Surgical History?: No Hx Coronary Stent: No Hx Open Heart Surgery: No Hx Pacemaker: No Hx Internal Defibrillator: No Hx Cholecystectomy: No Hx Appendectomy: No - Social History Smoking Status: Current Every Day Smoker Substance Use Type: Cocaine - Medications Home Medications: Home Medications Medication Instructions Recorded Confirmed Last Taken Type Albuterol Mdi (or & Nicu Only) 2 puff IH QID PRN #1 inhalation 04/11/20 04/27/20 Unknown Rx [ProAir HFA Inhaler] Aspirin EC [Halfprin EC] 81 mg PO QDAY #30 tablet. 04/11/20 04/27/20 Unknown Rx AtorvaSTATin [Lipitor] 40 mg PO QHS tablet 04/11/20 04/27/20 Unknown Rx AtorvaSTATin [Lipitor] 40 mg PO QHS #30 tablet 04/11/20 04/27/20 Unknown Rx Ipratropium/Albuterol Sulfate 1 ampul IH TIDRT #1 ampul.neb 04/11/20 04/27/20 Unknown Rx [DUONEB *Not for PRN Use*] Montelukast (Nf) [Singulair] 5 mg PO QPM #20 tab.chew 04/11/20 04/27/20 Unknown Rx Montelukast [Singulair] 10 mg PO QHS tablet 04/11/20 04/27/20 Unknown Rx Pantoprazole [Protonix TAB] 40 mg PO QDAC #30 tablet 04/11/20 04/27/20 Unknown Rx dilTIAZem CD [Cardizem CD] 240 mg PO QDAY capsule 04/11/20 04/27/20 Unknown Rx dilTIAZem CD [Cardizem CD] 240 mg PO QDAY #30 capsule 04/11/20 04/27/20 Unknown Rx levoFLOXacin [Levaquin TAB] 500 mg PO Q24H #7 tablet 04/11/20 04/27/20 Unknown Rx methylPREDNISolone [Medrol 4MG 4 mg PO QAM #1 tab.ds.pk 04/11/20 04/27/20 Unknown Rx DOSEPAK (21 tabs)] oxyCODONE /ACETAMINOPHEN [Percocet 1 tab PO Q6H PRN #8 tablet 04/11/20 04/27/20 Unknown Rx 5/325 mg] Albuterol Sulfate [Proair 90 mcg IH Q4HR PRN #2 aer.pow.ba 04/27/20 Unknown Rx Respiclick] Calcium Carbonate [Calcium 400 mg PO QDAY #30 tab.chew 04/27/20 Unknown Rx Carbonate 400MG CHEW] Docusate Sodium [Colace] 100 mg PO BID PRN #60 capsule 04/27/20 Unknown Rx Ferrous Sulfate [Feosol 325 MG tab] 325 mg PO BID #60 tablet 04/27/20 Unknown Rx methylPREDNISolone [Medrol 4MG 4 mg PO QDAY #1 tab.ds.pk 04/27/20 Unknown Rx DOSEPAK (21 tabs)] Albuterol Mdi (or & Nicu Only) 2 puff IH QID PRN #8.5 gram 05/05/20 Unknown Rx [ProAir HFA Inhaler] Doxycycline Hyclate [Doxycycline 100 mg PO Q12HR 7 Days #14 tab 05/05/20 Unknown Rx Hyclate TAB] Prednisone [predniSONE 10 mg 10 mg PO .TAPER #1 tab.ds.pk 05/05/20 Unknown Rx (6-Day Pack, 21 Tabs)] ED Physical Exam - General Limitations: No Limitations General appearance: alert, in no apparent distress, other (speaking full word sentences, no acute distress) - Head Head exam: Present: atraumatic, normocephalic - Eye Eye exam: Present: normal appearance - ENT ENT exam: Present: mucous membranes moist - Neck Neck exam: Present: normal inspection, full ROM - Respiratory Respiratory exam: Present: wheezes, prolonged expiratory, other (Expiratory wheezing). Absent: rales, rhonchi - Cardiovascular Cardiovascular Exam: Present: regular rate, normal rhythm, normal heart sounds. Absent: systolic murmur, diastolic murmur, rubs, gallop - GI/Abdominal GI/Abdominal exam: Present: soft, normal bowel sounds. Absent: distended, tenderness, guarding, rebound - Rectal Rectal exam: Present: deferred - Extremities Exam Extremities exam: Present: normal inspection - Neurological Exam Neurological exam: Present: alert, oriented X3 - Psychiatric Psychiatric exam: Present: normal affect, normal mood - Skin Skin exam: Present: warm, dry, intact, normal color. Absent: rash ED Course Vital Signs 05/05/20 05/05/20 05/05/20 05:43 05:46 06:00 Temperature 98.3 F Pulse Rate 113 H 118 H 102 H Respiratory 15 15 16 Rate Blood Pressure 158/95 Blood Pressure 158/95 [left arm] O2 Sat by Pulse 100 100 Oximetry 05/05/20 07:34 Temperature Pulse Rate 103 H Respiratory 25 H Rate Blood Pressure Blood Pressure 151/89 [left arm] O2 Sat by Pulse 100 Oximetry - Reevaluation(s) Reevaluation #1: 05/05/20 07:51 upon reassessment, improved air movement. Patient is laying on left side. He appears comfortable. Speaking full word sentences. No respiratory distress. He requested transportation home as well as food and drink. ED Medical Decision Making - Medical Decision Making Mild COPD exacerbation: Patient was treated with continuous nebulizer therapy with albuterol Atrovent. Also treated with antibiotics p.o. doxycycline and p.o. prednisone. Critical care attestation.: If time is entered above; I have spent that time in minutes in the direct care of this critically ill patient, excluding procedure time. ED Disposition Clinical Impression: COPD exacerbation Disposition: DC-01 TO HOME OR SELFCARE Is pt being admited?: No Does the pt Need Aspirin: No Condition: Stable Instructions: Chronic Obstructive Pulmonary Disease, [id number], Chronic Obstructive Pulmonary Disease (ED) Prescriptions: Doxycycline Hyclate [Doxycycline Hyclate TAB] 100 mg PO Q12HR 7 Days #14 tab Prednisone [predniSONE 10 mg (6-Day Pack, 21 Tabs)] 10 mg PO .TAPER #1 tab.ds.pk Albuterol Mdi (or & Nicu Only) [ProAir HFA Inhaler] 2 puff IH QID PRN #8.5 gram PRN Reason: Shortness Of Breath Referrals: CONY SIMPSON MD [Staff Physician] - 3-5 Days
[2020-05-05 07:35] VITALS: BP 151/89
== END 2020-05-05 08:37 | disposition home or self-care (01) ==
LOC: ED 05:34
DX: J44.1 Chronic obstructive pulmonary disease with (acute) exacerbation (principal); I10 Essential (primary) hypertension; F17.200 Nicotine dependence, unspecified, uncomplicated; F14.10 Cocaine abuse, uncomplicated; Z79.899 Other long term (current) drug therapy
CPT/HCPCS: 94644; 99284; J7512

== ENCOUNTER 2020-05-07 22:04 | Emergency (ER) | payer MEDICARE ==
[2020-05-07] MEDS ORDERED: ASPIRIN 325 MG TAB PO ONE (23:48)
--- NOTE | 2020-05-08 00:10 | Event Note ---
ED Screening Note Date of service: 05/08/20 Time: 00:09 ED Screening Note: 64-year-old male well-known here to the emergency room presents to the ER for shortness of breath and chest pain. Patient states that he ran out of his home medications. Patient has a past medical history of asthma COPD on home oxygen chronic back pain and noncompliance to healthcare. This initial assessment/diagnostic orders/clinical plan/treatment(s) is/are subject to change based on patients health status, clinical progression and re- assessment by fellow clinical providers in the ED. Further treatment and workup at subsequent clinical providers discretion. Patient/guardian urged not to elope from the ED as their condition may be serious if not clinically assessed and managed. Initial orders include:
--- NOTE | 2020-05-08 00:35 | XRay Report ---
XR chest 1V ap INDICATION / CLINICAL INFORMATION: Chest Pain COMPARISON: 04/27/2020 FINDINGS: SUPPORT DEVICES: None. HEART / MEDIASTINUM: No significant abnormality. LUNGS / PLEURA: Lungs are clear. Costophrenic sulci are sharp. No pneumothorax. ADDITIONAL FINDINGS: No significant additional findings. IMPRESSION: 1. No acute findings. Signer Name: Ludwig Sequeira MD Signed: 05/08/2020 12:30 AM Workstation Name: [id number]
[2020-05-08 00:36] LABS: Hematocrit 23.8 % (35.5-45.6); Hemoglobin 7.1 gm/dl (11.8-15.2); Mean Corpuscular HGB Conc 30 % (32-34); Mean Corpuscular Volume 76 fl (84-94); Platelet Count 336 K/mm3 (140-440); Red Blood Count 3.15 M/mm3 (3.65-5.03)
[2020-05-08 00:44] LABS: Red Cell Distribution Width 26.3 % (13.2-15.2)
[2020-05-08 00:55] LABS: BUN/Creatinine Ratio 16; Blood Urea Nitrogen 22 mg/dL (9-20); Calcium 7.2 mg/dL (8.4-10.2); Hemolysis Index 1
--- NOTE | 2020-05-08 01:57 | Emergency Department Report ---
ED General Adult HPI - General Chief complaint: Chest Pain Stated complaint: SOB PUI?: No Time Seen by Provider: 05/08/20 01:16 Source: patient, EMS, RN notes reviewed, old records reviewed Mode of arrival: Wheelchair Limitations: No Limitations - History of Present Illness Initial comments: The patient was evaluated in the emergency department for symptoms described in the history of present illness. He/she was evaluated in the context of the global COVID-19 pandemic, which necessitated consideration that the patient might be at risk for infection with the virus that causes COVID-19. Institutional protocols and algorithms that pertain to the evaluation of patients at risk for COVID-19 are in a state of rapid change based on information released by regulatory bodies including the CDC and federal and state organizations. These policies and algorithms were followed during the patient's care in the emergency department. Please note that these policies, procedures and recommendations changed on a rapid basis. The patient is a 64-year-old gentleman, who is a frequent utilizer of this emergency room. I have evaluated this patient multiple times. Patient recently had a CT scan of the chest which was negative for pulmonary embolism. 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 Please see my most recent chart on this patient from his earlier visit earlier on this month, and the aforementioned studies/interventions. The patient frequently presents to this emergency room with a complaint of chest tightness, wheezing, cough and shortness of breath. Today, he presents with the same complaint. He complains of left-sided constant chest wall tightness, present upon waking up since this morning. Apparently, he was also wheezing. He endorses using crack cocaine 2 days ago. He is not homicidal or suicidal. He also tells me that he does indeed have working oxygen at home. He makes no complaint of headache, neck pain, loss of taste, loss of smell, vomiting, hematemesis, bright red blood per rectum, focal extremity weakness/numbness. -: Gradual, days(s) Location: chest Radiation: non-radiation Severity scale (0 -10): 9 Quality: aching Consistency: constant Improves with: none Worsens with: none - Related Data Previous Rx's Medication Instructions Recorded Last Taken Type Albuterol Mdi (or & Nicu Only) 2 puff IH QID PRN #1 inhalation 04/11/20 Unknown Rx [ProAir HFA Inhaler] Aspirin EC [Halfprin EC] 81 mg PO QDAY #30 tablet. 04/11/20 Unknown Rx AtorvaSTATin [Lipitor] 40 mg PO QHS tablet 04/11/20 Unknown Rx AtorvaSTATin [Lipitor] 40 mg PO QHS #30 tablet 04/11/20 Unknown Rx Ipratropium/Albuterol Sulfate 1 ampul IH TIDRT #1 ampul.neb 04/11/20 Unknown Rx [DUONEB *Not for PRN Use*] Montelukast (Nf) [Singulair] 5 mg PO QPM #20 tab.chew 04/11/20 Unknown Rx Montelukast [Singulair] 10 mg PO QHS tablet 04/11/20 Unknown Rx Pantoprazole [Protonix TAB] 40 mg PO QDAC #30 tablet 04/11/20 Unknown Rx dilTIAZem CD [Cardizem CD] 240 mg PO QDAY capsule 04/11/20 Unknown Rx dilTIAZem CD [Cardizem CD] 240 mg PO QDAY #30 capsule 04/11/20 Unknown Rx levoFLOXacin [Levaquin TAB] 500 mg PO Q24H #7 tablet 04/11/20 Unknown Rx methylPREDNISolone [Medrol 4MG 4 mg PO QAM #1 tab.ds.pk 04/11/20 Unknown Rx DOSEPAK (21 tabs)] oxyCODONE /ACETAMINOPHEN [Percocet 1 tab PO Q6H PRN #8 tablet 04/11/20 Unknown Rx 5/325 mg] Albuterol Sulfate [Proair 90 mcg IH Q4HR PRN #2 aer.pow.ba 04/27/20 Unknown Rx Respiclick] Calcium Carbonate [Calcium 400 mg PO QDAY #30 tab.chew 04/27/20 Unknown Rx Carbonate 400MG CHEW] Docusate Sodium [Colace] 100 mg PO BID PRN #60 capsule 04/27/20 Unknown Rx Ferrous Sulfate [Feosol 325 MG tab] 325 mg PO BID #60 tablet 04/27/20 Unknown Rx methylPREDNISolone [Medrol 4MG 4 mg PO QDAY #1 tab.ds.pk 04/27/20 Unknown Rx DOSEPAK (21 tabs)] Albuterol Mdi (or & Nicu Only) 2 puff IH QID PRN #8.5 gram 05/05/20 Unknown Rx [ProAir HFA Inhaler] Doxycycline Hyclate [Doxycycline 100 mg PO Q12HR 7 Days #14 tab 05/05/20 Unknown Rx Hyclate TAB] Prednisone [predniSONE 10 mg 10 mg PO .TAPER #1 tab.ds.pk 05/05/20 Unknown Rx (6-Day Pack, 21 Tabs)] Allergies Allergy/AdvReac Type Severity Reaction Status Date / Time No Known Allergies Allergy Verified 01/28/20 15:32 ED Review of Systems ROS: Stated complaint: SOB Other details as noted in HPI Constitutional: denies: malaise ENT: congestion Respiratory: cough, shortness of breath, wheezing Cardiovascular: chest pain Gastrointestinal: denies: vomiting Genitourinary: denies: dysuria Psychiatric: denies: homicidal thoughts, suicidal thoughts ED Past Medical Hx - Past Medical History Previous Medical History?: Yes Hx Hypertension: Yes Hx Heart Attack/AMI: No Hx Congestive Heart Failure: No Hx Diabetes: No Hx Deep Vein Thrombosis: No Hx Pulmonary Embolism: Yes Hx Renal Disease: No Hx Sickle Cell Disease: No Hx Arthritis: No Hx Kidney Stones: No Hx Asthma: Yes Hx COPD: Yes (Home O2) Hx Tuberculosis: No Hx HIV: Yes Additional medical history: Elevated Cholesterol & Chronic back pain. - Surgical History Past Surgical History?: No Hx Coronary Stent: No Hx Open Heart Surgery: No Hx Pacemaker: No Hx Internal Defibrillator: No Hx Cholecystectomy: No Hx Appendectomy: No - Social History Smoking Status: Current Some Day Smoker - Medications Home Medications: Home Medications Medication Instructions Recorded Confirmed Last Taken Type Albuterol Mdi (or & Nicu Only) 2 puff IH QID PRN #1 inhalation 04/11/20 04/27/20 Unknown Rx [ProAir HFA Inhaler] Aspirin EC [Halfprin EC] 81 mg PO QDAY #30 tablet. 04/11/20 04/27/20 Unknown Rx AtorvaSTATin [Lipitor] 40 mg PO QHS tablet 04/11/20 04/27/20 Unknown Rx AtorvaSTATin [Lipitor] 40 mg PO QHS #30 tablet 04/11/20 04/27/20 Unknown Rx Ipratropium/Albuterol Sulfate 1 ampul IH TIDRT #1 ampul.andre 04/11/20 04/27/20 Unknown Rx [DUONEB *Not for PRN Use*] Montelukast (Nf) [Singulair] 5 mg PO QPM #20 tab.chew 04/11/20 04/27/20 Unknown Rx Montelukast [Singulair] 10 mg PO QHS tablet 04/11/20 04/27/20 Unknown Rx Pantoprazole [Protonix TAB] 40 mg PO QDAC #30 tablet 04/11/20 04/27/20 Unknown Rx dilTIAZem CD [Cardizem CD] 240 mg PO QDAY capsule 04/11/20 04/27/20 Unknown Rx dilTIAZem CD [Cardizem CD] 240 mg PO QDAY #30 capsule 04/11/20 04/27/20 Unknown Rx levoFLOXacin [Levaquin TAB] 500 mg PO Q24H #7 tablet 04/11/20 04/27/20 Unknown Rx methylPREDNISolone [Medrol 4MG 4 mg PO QAM #1 tab.ds.pk 04/11/20 04/27/20 Unknown Rx DOSEPAK (21 tabs)] oxyCODONE /ACETAMINOPHEN [Percocet 1 tab PO Q6H PRN #8 tablet 04/11/20 04/27/20 Unknown Rx 5/325 mg] Albuterol Sulfate [Proair 90 mcg IH Q4HR PRN #2 aer.pow.ba 04/27/20 Unknown Rx Respiclick] Calcium Carbonate [Calcium 400 mg PO QDAY #30 tab.chew 04/27/20 Unknown Rx Carbonate 400MG CHEW] Docusate Sodium [Colace] 100 mg PO BID PRN #60 capsule 04/27/20 Unknown Rx Ferrous Sulfate [Feosol 325 MG tab] 325 mg PO BID #60 tablet 04/27/20 Unknown Rx methylPREDNISolone [Medrol 4MG 4 mg PO QDAY #1 tab.ds.pk 04/27/20 Unknown Rx DOSEPAK (21 tabs)] Albuterol Mdi (or & Nicu Only) 2 puff IH QID PRN #8.5 gram 05/05/20 Unknown Rx [ProAir HFA Inhaler] Doxycycline Hyclate [Doxycycline 100 mg PO Q12HR 7 Days #14 tab 05/05/20 Unknown Rx Hyclate TAB] Prednisone [predniSONE 10 mg 10 mg PO .TAPER #1 tab.ds.pk 05/05/20 Unknown Rx (6-Day Pack, 21 Tabs)] ED Physical Exam - General Limitations: No Limitations General appearance: alert, in no apparent distress - Head Head exam: Present: atraumatic, normocephalic - Eye Eye exam: Present: normal appearance, EOMI. Absent: nystagmus - ENT ENT exam: Present: normal exam, normal orophraynx, mucous membranes moist, normal external ear exam - Neck Neck exam: Present: normal inspection, full ROM. Absent: tenderness, meningismus - Respiratory Respiratory exam: Present: normal lung sounds bilaterally, chest wall tenderness. Absent: respiratory distress, wheezes, rales, rhonchi, stridor, decreased breath sounds - Cardiovascular Cardiovascular Exam: Present: normal rhythm, tachycardia, normal heart sounds. Absent: bradycardia, irregular rhythm, systolic murmur, diastolic murmur, rubs, gallop - GI/Abdominal GI/Abdominal exam: Present: soft. Absent: distended, tenderness, guarding, rebound, rigid, pulsatile mass - Rectal Rectal exam: Present: deferred - Extremities Exam Extremities exam: Present: normal inspection, full ROM, other (2+ pulses noted in the bilateral upper and lower extremities. There is no palpable cord. negative Homans sign. Muscular compartments are soft. The pelvis is stable.). Absent: pedal edema, calf tenderness - Back Exam Back exam: Present: normal inspection, full ROM. Absent: tenderness, CVA tenderness (R), CVA tenderness (L), paraspinal tenderness, vertebral tenderness - Neurological Exam Neurological exam: Present: alert, other (No facial droop. Tongue midline. Extraocular movements intact bilaterally. Facial sensation intact to light touch in V1, V2, V3 distribution bilaterally. 5 and a 5 strength in 4 extremities. Sensation intact to light touch in 4 extremities.). Absent: motor sensory deficit - Psychiatric Psychiatric exam: Absent: homicidal ideation, suicidal ideation - Skin Skin exam: Present: warm, dry, intact, normal color. Absent: rash ED Course Vital Signs 05/07/20 05/08/20 05/08/20 23:03 01:30 03:30 Temperature 98.1 F Pulse Rate 106 H 99 H 86 Respiratory 22 24 24 Rate Blood Pressure 156/103 Blood Pressure 142/97 128/82 [Left] O2 Sat by Pulse 96 100 100 Oximetry - Reevaluation(s) Reevaluation #1: 05/08/20 04:11 Patient resting comfortably, sleeping in stretcher, no acute distress. Laboratory studies at baseline. Patient appears to be at his baseline. ED Medical Decision Making - Lab Data Result diagrams: 05/08/20 00:12 05/08/20 00:12 Vital Signs 05/07/20 05/08/20 23:03 01:30 Temperature 98.1 F Pulse Rate 106 H 99 H Respiratory 22 24 Rate Blood Pressure 156/103 Blood Pressure 142/97 [Left] O2 Sat by Pulse 96 100 Oximetry Lab Results 05/08/20 05/08/20 Range/Units 00:12 00:12 WBC 11.4 H (4.5-11.0) K/mm3 RBC 3.15 L (3.65-5.03) M/mm3 Hgb 7.1 L (11.8-15.2) gm/dl Hct 23.8 L (35.5-45.6) % MCV 76 L (84-94) fl MCH 23 L (28-32) pg MCHC 30 L (32-34) % RDW 26.3 H (13.2-15.2) % Plt Count 336 (140-440) K/mm3 Sodium 146 H (137-145) mmol/L Potassium 3.7 (3.6-5.0) mmol/L Chloride 103.0 (98-107) mmol/L Carbon Dioxide 30 (22-30) mmol/L Anion Gap 17 mmol/L BUN 22 H (9-20) mg/dL Creatinine 1.4 H (0.8-1.3) mg/dL Estimated GFR 51 ml/min BUN/Creatinine Ratio 16 % Glucose 137 H (75-100) mg/dL Calcium 7.2 L (8.4-10.2) mg/dL Troponin T < 0.010 (0.00-0.029) ng/mL - EKG Data -: EKG Interpreted by Md EKG shows normal: sinus rhythm Rate: normal - EKG Data Interpretation: unchanged when compared t 05/08/20 02:06 EKG interpretation, 23: 17 Sinus rhythm, tachycardia, 102 bpm. Normal axis, QTC 463 ms, motion artifact, left ventricular hypertrophy. Abnormal EKG. Not a STEMI. Unchanged from prior EKG from April 27, 2020 - Radiology Data Radiology results: pending, report reviewed, image reviewed XR chest 1V ap INDICATION / CLINICAL INFORMATION: Chest Pain COMPARISON: 04/27/2020 FINDINGS: SUPPORT DEVICES: None. HEART / MEDIASTINUM: No significant abnormality. LUNGS / PLEURA: Lungs are clear. Costophrenic sulci are sharp. No pneumothorax. ADDITIONAL FINDINGS: No significant additional findings. IMPRESSION: 1. No acute findings. Signer Name: Ludwig Sequeira MD Signed: 05/07/2020 11:30 PM Workstation Name: [id number] CTA CHEST WITH IV CONTRAST INDICATION: Shortness of breath, elevated d-dimer. TECHNIQUE: Axial CT images were obtained through the chest after injection of 100 cc Omnipaque 350 IV contrast. 3 plane MIP reconstructions were produced. All CT scans at this location are performed using CT dose reduction for ALARA by means of automated exposure control. COMPARISON: One view of the chest from earlier today. FINDINGS: PULMONARY ARTERIES: Diagnostic opacification to the subsegmental level without visualization of thromboemboli. AORTA AND ARTERIES: No acute abnormality. Mild aortic and coronary atherosclerosis. HEART: No significant abnormality. MEDIASTINUM: No mass or lymphadenopathy. The trachea and main bronchi are patent and normal in caliber. LUNGS: No suspicious consolidation, nodule or mass. No pneumothorax or pleural effusion. Mild bilateral emphysema. ADDITIONAL FINDINGS: None. UPPER ABDOMEN: No acute findings. BONES: No significant osseous abnormality. IMPRESSION: 1. No CT evidence for pulmonary embolism. 2. No acute findings. Signer Name: Erwin Hernandez MD Signed: 04/08/2020 3:33 PM Workstation Name: [id number] - Medical Decision Making Differential diagnosis, including but not limited to: Costochondritis, GERD, gastritis, hiatal hernia, pneumonia, coronary artery disease, COPD Assessment and plan: 64-year-old gentleman who is clinically sober at this time, with a chronic complaint of chest wall pain, cough and wheezing. Symptoms present for greater than 8 hours, troponin negative x1, therefore as per the [employer] clinical policy, acute myocardial infarction is excluded. EKG unchanged from prior. Laboratory studies appear to be at baseline. Cardiac history reviewed and appreciated. Patient had a cardiac catheterization last year. On my initial assessment, he is clinically sober, sleeping comfortably in stretcher, in no acute distress, with no sig nificant crackles, rales, or respiratory distress. This is most likely the patient's chronic state of existence, he does not appear to have an acute medical decompensation, he does not meet criteria for 1013 hold or involuntary hold at this time, and he informs me that he does indeed have home working oxygen. Check CK, Tylenol level, aspirin level, if unremarkable, discharged with outpatient follow-up. Critical care attestation.: If time is entered above; I have spent that time in minutes in the direct care of this critically ill patient, excluding procedure time. ED Disposition Clinical Impression: COPD (chronic obstructive pulmonary disease), Renal insufficiency, Cocaine use, History of chest pain, Chronic respiratory failure with hypoxia, on home O2 therapy Disposition: TO HOME OR SELFCARE Is pt being admited?: No Does the pt Need Aspirin: No Condition: Stable Instructions: COPD and Physical Activity, Chest Wall Pain, Chronic Obstructive Pulmonary Disease (ED) Additional Instructions: Please continue home medications. Please take an aspirin [id number] daily. Please follow-up with your primary care doctor or enterprise applications manager within the next 3 to 5 days. Please avoid consumption of crack, cocaine, tobacco, recreational drugs. Please return to the emergency room right away with new pain, worsened pain, migration of pain, projectile vomiting, change in mental status, confusion, inability to tolerate liquid feeds, new, worsened or different symptoms not present on the initial emergency room evaluation peer Referrals: CONY SIMPSON MD [Staff Physician] - 3-5 Days REHANA MANNING MD [Staff Physician] - 3-5 Days
[2020-05-08 04:49] VITALS: BP 148/93
[2020-05-08 06:22] LABS: Anisocytosis 3+; Hypochromasia 1+; Schistocytes Few; Total Cells Counted 100
[2020-05-08 06:23] LABS: Platelet Estimate Consistent w Auto
== END 2020-05-08 04:48 | disposition home or self-care (01) ==
LOC: ED 22:04
DX: J44.9 Chronic obstructive pulmonary disease, unspecified (principal); N28.9 Disorder of kidney and ureter, unspecified; F14.10 Cocaine abuse, uncomplicated; J96.11 Chronic respiratory failure with hypoxia; I10 Essential (primary) hypertension; F17.200 Nicotine dependence, unspecified, uncomplicated; Z21 Asymptomatic human immunodeficiency virus [HIV] infection status; Z79.899 Other long term (current) drug therapy
CPT/HCPCS: 36415; 71045; 80048; 80320; 82550; 83735; 84484; 85007; 85025; 93005; G0480

== ENCOUNTER 2020-05-08 06:59 | Emergency (ER) | payer MEDICARE ==
[2020-05-08 07:09] VITALS: BP 147/94
--- NOTE | 2020-05-08 07:54 | Emergency Department Report ---
ED Shortness of Breath HPI - General Chief Complaint: Dyspnea/Respdistress Stated Complaint: RICKY Time Seen by Provider: 05/08/20 07:34 Source: patient Mode of arrival: Wheelchair Limitations: No Limitations - History of Present Illness Initial Comments: This is a 64-year-old male nontoxic, well nourished in appearance, no acute signs of distress presents to the ED with c/o of shortness of breath. Patient was discharged this morning at 2 AM with cardiac work-up that was done. Patient denies any changes in symptoms. Currently patient stated he still has shortness of breath and is asking for peanut butter and jelly sandwich. Otherwise patient denies any chest pain. Please see MD note from this morning: "The patient is a 64-year-old gentleman, who is a frequent utilizer of this emergency room. I have evaluated this patient multiple times. Patient recently had a CT scan of the chest which was negative for pulmonary embolism. 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 Please see my most recent chart on this patient from his earlier visit earlier on this month, and the aforementioned studies/interventions. The patient frequently presents to this emergency room with a complaint of chest tightness, wheezing, cough and shortness of breath. Today, he presents with the same complaint. He complains of left-sided constant chest wall tightness, present upon waking up since this morning. Apparently, he was also wheezing. He endorses using crack cocaine 2 days ago. He is not homicidal or suicidal. He also tells me that he does indeed have working oxygen at home. He makes no complaint of headache, neck pain, loss of taste, loss of smell, vomiting, hematemesis, bright red blood per rectum, focal extremity weakness/numbness." MD Complaint: shortness of breath Pain Scale: 0 Improves With: oxygen Worsens With: nothing Known History Of: COPD Associated Symptoms: denies other symptoms Treatments Prior to Arrival: oxygen - Related Data Home Oxygen Therapy: Yes Previous Rx's Medication Instructions Recorded Last Taken Type Albuterol Mdi (or & Nicu Only) 2 puff IH QID PRN #1 inhalation 04/11/20 Unknown Rx [ProAir HFA Inhaler] Aspirin EC [Halfprin EC] 81 mg PO QDAY #30 tablet. 04/11/20 Unknown Rx AtorvaSTATin [Lipitor] 40 mg PO QHS tablet 04/11/20 Unknown Rx AtorvaSTATin [Lipitor] 40 mg PO QHS #30 tablet 04/11/20 Unknown Rx Ipratropium/Albuterol Sulfate 1 ampul IH TIDRT #1 ampul.neb 04/11/20 Unknown Rx [DUONEB *Not for PRN Use*] Montelukast (Nf) [Singulair] 5 mg PO QPM #20 tab.chew 04/11/20 Unknown Rx Montelukast [Singulair] 10 mg PO QHS tablet 04/11/20 Unknown Rx Pantoprazole [Protonix TAB] 40 mg PO QDAC #30 tablet 04/11/20 Unknown Rx dilTIAZem CD [Cardizem CD] 240 mg PO QDAY capsule 04/11/20 Unknown Rx dilTIAZem CD [Cardizem CD] 240 mg PO QDAY #30 capsule 04/11/20 Unknown Rx levoFLOXacin [Levaquin TAB] 500 mg PO Q24H #7 tablet 04/11/20 Unknown Rx methylPREDNISolone [Medrol 4MG 4 mg PO QAM #1 tab.ds.pk 04/11/20 Unknown Rx DOSEPAK (21 tabs)] oxyCODONE /ACETAMINOPHEN [Percocet 1 tab PO Q6H PRN #8 tablet 04/11/20 Unknown Rx 5/325 mg] Albuterol Sulfate [Proair 90 mcg IH Q4HR PRN #2 aer.pow.ba 04/27/20 Unknown Rx Respiclick] Calcium Carbonate [Calcium 400 mg PO QDAY #30 tab.chew 04/27/20 Unknown Rx Carbonate 400MG CHEW] Docusate Sodium [Colace] 100 mg PO BID PRN #60 capsule 04/27/20 Unknown Rx Ferrous Sulfate [Feosol 325 MG tab] 325 mg PO BID #60 tablet 04/27/20 Unknown Rx methylPREDNISolone [Medrol 4MG 4 mg PO QDAY #1 tab.ds.pk 04/27/20 Unknown Rx DOSEPAK (21 tabs)] Albuterol Mdi (or & Nicu Only) 2 puff IH QID PRN #8.5 gram 05/05/20 Unknown Rx [ProAir HFA Inhaler] Doxycycline Hyclate [Doxycycline 100 mg PO Q12HR 7 Days #14 tab 05/05/20 Unknown Rx Hyclate TAB] Prednisone [predniSONE 10 mg 10 mg PO .TAPER #1 tab.ds.pk 05/05/20 Unknown Rx (6-Day Pack, 21 Tabs)] Allergies Allergy/AdvReac Type Severity Reaction Status Date / Time No Known Allergies Allergy Verified 01/28/20 15:32 ED Review of Systems ROS: Stated complaint: RICKY Other details as noted in HPI Constitutional: denies: chills, fever Eyes: denies: eye pain, eye discharge, vision change ENT: denies: ear pain, throat pain Respiratory: shortness of breath. denies: cough, orthopnea, SOB with exertion, SOB at rest, stridor, wheezing Cardiovascular: denies: chest pain, palpitations Endocrine: no symptoms reported Gastrointestinal: denies: abdominal pain, nausea, diarrhea Genitourinary: denies: urgency, dysuria Musculoskeletal: denies: back pain, joint swelling, arthralgia Skin: denies: rash, lesions Neurological: denies: headache, weakness, paresthesias Psychiatric: denies: anxiety, depression Hematological/Lymphatic: denies: easy bleeding, easy bruising ED Past Medical Hx - Past Medical History Previous Medical History?: Yes Hx Hypertension: Yes Hx Heart Attack/AMI: No Hx Congestive Heart Failure: No Hx Diabetes: No Hx Deep Vein Thrombosis: No Hx Pulmonary Embolism: Yes Hx Renal Disease: No Hx Sickle Cell Disease: No Hx Arthritis: No Hx Kidney Stones: No Hx Asthma: Yes Hx COPD: Yes (Home O2) Hx Tuberculosis: No Hx HIV: Yes Additional medical history: Elevated Cholesterol & Chronic back pain. - Surgical History Past Surgical History?: No Hx Coronary Stent: No Hx Open Heart Surgery: No Hx Pacemaker: No Hx Internal Defibrillator: No Hx Cholecystectomy: No Hx Appendectomy: No - Social History Smoking Status: Current Every Day Smoker Substance Use Type: None - Medications Home Medications: Home Medications Medication Instructions Recorded Confirmed Last Taken Type Albuterol Mdi (or & Nicu Only) 2 puff IH QID PRN #1 inhalation 04/11/20 04/27/20 Unknown Rx [ProAir HFA Inhaler] Aspirin EC [Halfprin EC] 81 mg PO QDAY #30 tablet. 04/11/20 04/27/20 Unknown Rx AtorvaSTATin [Lipitor] 40 mg PO QHS tablet 04/11/20 04/27/20 Unknown Rx AtorvaSTATin [Lipitor] 40 mg PO QHS #30 tablet 04/11/20 04/27/20 Unknown Rx Ipratropium/Albuterol Sulfate 1 ampul IH TIDRT #1 ampul.neb 04/11/20 04/27/20 Unknown Rx [DUONEB *Not for PRN Use*] Montelukast (Nf) [Singulair] 5 mg PO QPM #20 tab.chew 04/11/20 04/27/20 Unknown Rx Montelukast [Singulair] 10 mg PO QHS tablet 04/11/20 04/27/20 Unknown Rx Pantoprazole [Protonix TAB] 40 mg PO QDAC #30 tablet 04/11/20 04/27/20 Unknown Rx dilTIAZem CD [Cardizem CD] 240 mg PO QDAY capsule 04/11/20 04/27/20 Unknown Rx dilTIAZem CD [Cardizem CD] 240 mg PO QDAY #30 capsule 04/11/20 04/27/20 Unknown Rx levoFLOXacin [Levaquin TAB] 500 mg PO Q24H #7 tablet 04/11/20 04/27/20 Unknown Rx methylPREDNISolone [Medrol 4MG 4 mg PO QAM #1 tab.ds.pk 04/11/20 04/27/20 Unknown Rx DOSEPAK (21 tabs)] oxyCODONE /ACETAMINOPHEN [Percocet 1 tab PO Q6H PRN #8 tablet 04/11/20 04/27/20 Unknown Rx 5/325 mg] Albuterol Sulfate [Proair 90 mcg IH Q4HR PRN #2 aer.pow.ba 04/27/20 Unknown Rx Respiclick] Calcium Carbonate [Calcium 400 mg PO QDAY #30 tab.chew 04/27/20 Unknown Rx Carbonate 400MG CHEW] Docusate Sodium [Colace] 100 mg PO BID PRN #60 capsule 04/27/20 Unknown Rx Ferrous Sulfate [Feosol 325 MG tab] 325 mg PO BID #60 tablet 04/27/20 Unknown Rx methylPREDNISolone [Medrol 4MG 4 mg PO QDAY #1 tab.ds.pk 04/27/20 Unknown Rx DOSEPAK (21 tabs)] Albuterol Mdi (or & Nicu Only) 2 puff IH QID PRN #8.5 gram 05/05/20 Unknown Rx [ProAir HFA Inhaler] Doxycycline Hyclate [Doxycycline 100 mg PO Q12HR 7 Days #14 tab 05/05/20 Unknown Rx Hyclate TAB] Prednisone [predniSONE 10 mg 10 mg PO .TAPER #1 tab.ds.pk 05/05/20 Unknown Rx (6-Day Pack, 21 Tabs)] ED Physical Exam - General Limitations: No Limitations General appearance: alert, in no apparent distress - Head Head exam: Present: atraumatic, normocephalic - Eye Eye exam: Present: normal appearance - Neck Neck exam: Present: normal inspection, full ROM. Absent: tenderness, meningismus, lymphadenopathy - Respiratory Respiratory exam: Present: normal lung sounds bilaterally. Absent: respiratory distress, wheezes, rales, rhonchi, stridor, chest wall tenderness, accessory muscle use, decreased breath sounds, prolonged expiratory - Cardiovascular Cardiovascular Exam: Present: regular rate, normal rhythm, normal heart sounds. Absent: irregular rhythm, systolic murmur, diastolic murmur, rubs, gallop - GI/Abdominal GI/Abdominal exam: Present: soft, normal bowel sounds. Absent: distended, tenderness, guarding, rebound, rigid, diminished bowel sounds - Extremities Exam Extremities exam: Present: normal inspection, full ROM - Back Exam Back exam: Present: normal inspection, full ROM. Absent: tenderness, CVA tenderness (R), CVA tenderness (L), muscle spasm, paraspinal tenderness, v ertebral tenderness, rash noted - Neurological Exam Neurological exam: Present: alert, oriented X3 - Psychiatric Psychiatric exam: Present: normal affect, normal mood - Skin Skin exam: Present: warm, dry, intact, normal color. Absent: rash ED Course Vital Signs 05/08/20 07:06 Temperature 98.3 F Pulse Rate 109 H Respiratory 18 Rate Blood Pressure 147/94 O2 Sat by Pulse 96 Oximetry - Reevaluation(s) Reevaluation #1: 05/08/20 07:55 Patient is speaking in full sentences with no signs of distress noted. - Consultations Consultation #1: 05/08/20 07:55 Patient has been consulted with Dr. Eder V about patient history, physical exam, and this morning labs/EKG/imaging results and no need to repeat workup but patient needs appropriate discharge instructions and follow-up with polymer tester. ED Medical Decision Making - EKG Data 05/08/20 07:56 Sinus tachycardia at [address] or T wave intermittent maladies. Previous EKG with no changes. Reviewed and signed by MD. - Medical Decision Making This is a 64-year-old male that presents with shortness of breath. Patient is stable and was examined by me. EKG with no changes. Consulted with attending with patient needing appropriate follow-up. Vital signs are stable with no changes from this morning. Patient was instructed to follow-up with a primary care and polymer tester doctor in 2-3 days or if symptoms worsen and continue return to emergency room as soon as possible. At time of discharge, the patient does not seem toxic or ill in appearance. No acute signs of distress noted. Patient agrees to discharge treatment plan of care. No further questions noted by the patient. Critical care attestation.: If time is entered above; I have spent that time in minutes in the direct care of this critically ill patient, excluding procedure time. ED Disposition Clinical Impression: COPD (chronic obstructive pulmonary disease) Qualifiers: COPD type: unspecified COPD Qualified Code(s): J44.9 - Chronic obstructive pulmonary disease, unspecified Disposition: DC-01 TO HOME OR SELFCARE Is pt being admited?: No Does the pt Need Aspirin: No Condition: Stable Instructions: Chronic Obstructive Pulmonary Disease (ED), Chronic Obstructive Pulmonary Disease Exacerbation, [id number] Additional Instructions: follow-up with a primary care and polymer tester doctor in 2-3 days or if symptoms worsen and continue return to emergency room as soon as possible. Referrals: JOSE NATARAJAN MD [Staff Physician] - 2-3 Days CONY SIMPSON MD [Staff Physician] - 2-3 Days PRIMARY CARE, [Primary Care Provider] - 2-3 Days Time of Disposition: 07:58
== END 2020-05-08 08:04 | disposition home or self-care (01) ==
LOC: ED 06:59
DX: J44.9 Chronic obstructive pulmonary disease, unspecified (principal); Z21 Asymptomatic human immunodeficiency virus [HIV] infection status; F17.200 Nicotine dependence, unspecified, uncomplicated; Z79.899 Other long term (current) drug therapy

== ENCOUNTER 2020-05-12 20:22 | Observation (INO) | payer MEDICARE ==
[2020-05-12] MEDS ORDERED: ASPIRIN 325 MG TAB PO ONE (20:50)
[2020-05-12 21:17] LABS: Hematocrit 24.3 % (35.5-45.6); Hemoglobin 7.5 gm/dl (11.8-15.2); Mean Corpuscular HGB Conc 31 % (32-34); Mean Corpuscular Volume 78 fl (84-94); Platelet Count 333 K/mm3 (140-440); Red Blood Count 3.12 M/mm3 (3.65-5.03)
[2020-05-12 21:18] LABS: Red Cell Distribution Width 27.2 % (13.2-15.2)
--- NOTE | 2020-05-12 21:35 | XRay Report ---
CHEST 1 VIEW INDICATION / CLINICAL INFORMATION: chestpain and RICKY. COMPARISON: 05/08/2020 FINDINGS: SUPPORT DEVICES: None. HEART / MEDIASTINUM: No significant abnormality. LUNGS / PLEURA: The lungs remain hyperinflated suggesting COPD. The lungs are otherwise grossly clear and without suggestion for acute superimposed disease. There is a small calcified granuloma incident ally noted in the right upper lobe. No pneumothorax. ADDITIONAL FINDINGS: No significant additional findings. IMPRESSION: 1. No acute pulmonary disease. 2. Hyperinflation of the lungs consistent with COPD. Signer Name: Nancie Gross MD Signed: 05/12/2020 9:30 PM Workstation Name: [id number]
[2020-05-12 21:36] LABS: Alanine Aminotransferase 20 units/L (7-56); Albumin 3.5 g/dL (3.9-5); BUN/Creatinine Ratio 19; Blood Urea Nitrogen 17 mg/dL (9-20); Calcium 8.1 mg/dL (8.4-10.2); Hemolysis Index 3
[2020-05-12 22:08] LABS: Total Cells Counted 100
[2020-05-12 22:09] LABS: Anisocytosis 3+; Hypochromasia 1+; Ovalocytes Few
[2020-05-12 22:10] LABS: Schistocytes Rare; Tear Drop Cells Rare
[2020-05-12 22:11] LABS: Platelet Estimate Consistent w Auto
[2020-05-12] MEDS ORDERED: NITROGLYCERIN 2% OINT 1 GM TP ONE (23:04)
[2020-05-12] MEDS ORDERED: fentaNYL 100 MCG/2 ML INJ IV ONE (23:05)
[2020-05-12] MEDS ORDERED: ONDANSETRON 4 MG/2 ML INJ IV ONE (23:05)
--- NOTE | 2020-05-12 23:08 | Emergency Department Report ---
HPI - General Chief Complaint: Chest Pain Time Seen by Provider: 05/12/20 22:50 - HPI HPI: Room 24 The patient is a 64-year-old male present with chief complaint of chest pain. The patient states he smoked a friend cigarette but did not know there was cocaine inside at approximate 14: 00. The patient states he then developed substernal chest pain associated with shortness of breath, nausea/vomiting and diaphoresis. Patient describes pain as sharp and constant in nature. Patient currently gives his pain a score of 9/10 ED Past Medical Hx - Past Medical History Previous Medical History?: Yes Hx Hypertension: Yes Hx Pulmonary Embolism: Yes Hx Asthma: Yes Hx COPD: Yes (Home O2) Hx HIV: Yes Additional medical history: Elevated Cholesterol & Chronic back pain. - Family History Family history: no significant - Social History Smoking Status: Current Every Day Smoker Substance Use Type: Cocaine, Marijuana - Medications Home Medications: Home Medications Medication Instructions Recorded Confirmed Last Taken Type Albuterol Mdi (or & Nicu Only) 2 puff IH QID PRN #1 inhalation 04/11/20 05/12/20 Unknown Rx [ProAir HFA Inhaler] Aspirin EC [Halfprin EC] 81 mg PO QDAY #30 tablet. 04/11/20 05/12/20 Unknown Rx AtorvaSTATin [Lipitor] 40 mg PO QHS tablet 04/11/20 05/12/20 Unknown Rx AtorvaSTATin [Lipitor] 40 mg PO QHS #30 tablet 04/11/20 05/12/20 Unknown Rx Ipratropium/Albuterol Sulfate 1 ampul IH TIDRT #1 ampul.neb 04/11/20 05/12/20 Unknown Rx [DUONEB *Not for PRN Use*] Montelukast (Nf) [Singulair] 5 mg PO QPM #20 tab.chew 04/11/20 05/12/20 Unknown Rx Montelukast [Singulair] 10 mg PO QHS tablet 04/11/20 05/12/20 Unknown Rx Pantoprazole [Protonix TAB] 40 mg PO QDAC #30 tablet 04/11/20 05/12/20 Unknown Rx dilTIAZem CD [Cardizem CD] 240 mg PO QDAY capsule 04/11/20 05/12/20 Unknown Rx methylPREDNISolone [Medrol 4MG 4 mg PO QAM #1 tab.ds.pk 04/11/20 05/12/20 Unknown Rx DOSEPAK (21 tabs)] oxyCODONE /ACETAMINOPHEN [Percocet 1 tab PO Q6H PRN #8 tablet 04/11/20 05/12/20 Unknown Rx 5/325 mg] Albuterol Sulfate [Proair 90 mcg IH Q4HR PRN #2 aer.pow.ba 04/27/20 05/12/20 Unknown Rx Respiclick] Calcium Carbonate [Calcium 400 mg PO QDAY #30 tab.chew 04/27/20 05/12/20 Unknown Rx Carbonate 400MG CHEW] Docusate Sodium [Colace] 100 mg PO BID PRN #60 capsule 04/27/20 05/12/20 Unknown Rx Ferrous Sulfate [Feosol 325 MG tab] 325 mg PO BID #60 tablet 04/27/20 05/12/20 Unknown Rx methylPREDNISolone [Medrol 4MG 4 mg PO QDAY #1 tab.ds.pk 04/27/20 05/12/20 Unknown Rx DOSEPAK (21 tabs)] Albuterol Mdi (or & Nicu Only) 2 puff IH QID PRN #8.5 gram 05/05/20 05/12/20 Unknown Rx [ProAir HFA Inhaler] ED Review of Systems ROS: Stated complaint: RICKY Other details as noted in HPI Constitutional: diaphoresis Eyes: denies: eye pain ENT: denies: throat pain Respiratory: shortness of breath Cardiovascular: chest pain Endocrine: no symptoms reported Gastrointestinal: nausea, vomiting Genitourinary: denies: dysuria Musculoskeletal: denies: back pain Neurological: denies: headache Physical Exam - Physical Exam Vital Signs: Vital Signs 05/12/20 21:06 Temperature 98.1 F Pulse Rate 97 H Respiratory 18 Rate Blood Pressure 144/95 O2 Sat by Pulse 100 Oximetry Physical Exam: GENERAL: The patient is well-developed well-nourished male lying on stretcher not appearing to be in acute distress. [] HEENT: Normocephalic. Atraumatic. Extraocular motions are intact. Patient has moist mucous membranes. NECK: Supple. Trachea midline CHEST/LUNGS: Clear to auscultation. There is no respiratory distress noted. HEART/CARDIOVASCULAR: Regular. There is no tachycardia. There is no gallop rub or murmur. ABDOMEN: Abdomen is soft, nontender. Patient has normal bowel sounds. There is no abdominal distention. SKIN: There is no rash. There is no edema. There is no diaphoresis. NEURO: The patient is awake, alert, and oriented. The patient is cooperative. The patient has no focal neurologic deficits. The patient has normal speech MUSCULOSKELETAL: There is no evidence of acute injury. ED Course Vital Signs 05/12/20 21:06 Temperature 98.1 F Pulse Rate 97 H Respiratory 18 Rate Blood Pressure 144/95 O2 Sat by Pulse 100 Oximetry ED Medical Decision Making - Lab Data Result diagrams: 05/12/20 21:07 05/12/20 21:07 Laboratory Tests 05/12/20 05/12/20 05/12/20 21:07 21:07 Unknown WBC 12.2 H RBC 3.12 L Hgb 7.5 L Hct 24.3 L MCV 78 L MCH 24 L MCHC 31 L RDW 27.2 H Plt Count 333 Add Manual Diff Complete Total Counted 100 Seg Neutrophils % Hydrochloric Manufacturing Supervisor Lymphocytes % (Manual) 1.0 L Monocytes % (Manual) 5.0 Nucleated RBC % Not Reportable Seg Neutrophils # Man 11.5 H Band Neutrophils # 0.0 Lymphocytes # (Manual) 0.1 L Abs React Lymphs (Man) 0.0 Monocytes # (Manual) 0.6 Eosinophils # (Manual) 0.0 Basophils # (Manual) 0.0 Metamyelocytes # 0.0 Myelocytes # 0.0 Promyelocytes # 0.0 Blast Cells # 0.0 WBC Morphology Not Reportable Hypersegmented Neuts Not Reportable Hyposegmented Neuts Not Reportable Hypogranular Neuts Not Reportable Smudge Cells Not Reportable Toxic Granulation Not Reportable Toxic Vacuolation Not Reportable Dohle Bodies Not Reportable Pelger-Huet Anomaly Not Reportable Ruma Rods Not Reportable Platelet Estimate Consistent w auto Clumped Platelets Not Reportable Plt Clumps, EDTA Not Reportable Large Platelets Not Reportable Giant Platelets Not Reportable Platelet Satelliting Not Reportable Plt Morphology Comment Not Reportable RBC Morphology Not Reportable Dimorphic RBCs Not Reportable Polychromasia Not Reportable Hypochromasia 1+ Poikilocytosis Not Reportable Anisocytosis 3+ Microcytosis Not Reportable Macrocytosis Not Reportable Spherocytes Not Reportable Pappenheimer Bodies Not Reportable Sickle Cells Not Reportable Target Cells Not Reportable Tear Drop Cells Rare Ovalocytes Few Helmet Cells Not Reportable David-Leonidas Bodies Not Reportable Lismore Rings Not Reportable Don Cells Not Reportable Bite Cells Not Reportable Crenated Cell Not Reportable Elliptocytes Not Reportable Acanthocytes (Spur) Rare Rouleaux Not Reportable Hemoglobin C Crystals Not Reportable Schistocytes Rare Malaria parasites Not Reportable Ric Bodies Not Reportable Hem Pathologist Commnt No Sodium 143 Potassium 3.6 Chloride 101.5 Carbon Dioxide 32 H Anion Gap 13 BUN 17 Creatinine 0.9 Estimated GFR > 60 BUN/Creatinine Ratio 19 Glucose 133 H Calcium 8.1 L Total Bilirubin 0.20 AST 17 ALT 20 Alkaline Phosphatase 86 Total Creatine Kinase 127 CK-MB (CK-2) 3.4 CK-MB (CK-2) Rel Index 2.6 Troponin T < 0.010 Total Protein 7.0 Albumin 3.5 L Albumin/Globulin Ratio 1.0 - EKG Data -: EKG Interpreted by Me EKG shows normal: sinus rhythm Rate: normal - EKG Data When compared to previous EKG there are: no significant change Interpretation: unchanged when compared t (05/08/2020) - Radiology Data Radiology results: report reviewed (Chest x-ray), image reviewed (Chest x-ray) interpreted by me: Chest x-ray-no focal infiltrates, no pneumothorax. No foreign body seen [facility] [address] [place] [address] XRay Report Signed Patient: NAVARRO YAN MR #: [id number] : 0 1955 Acct:[id number] Age/Sex: 64 / M ADM Date: 05/12/20 Loc: ED Attending Dr: Ordering Physician: ED MD FAYE Date of Service: 05/12/20 Procedure(s): XR chest routine 2V Accession Number(s): [id number] cc: ED MD FAYE Fluoro Time In Minutes: CHEST 1 VIEW INDICATION / CLINICAL INFORMATION: chestpain and RICKY. COMPARISON: 05/08/2020 FINDINGS: SUPPORT DEVICES: None. HEART / MEDIASTINUM: No significant abnormality. LUNGS / PLEURA: The lungs remain hyperinflated suggesting COPD. The lungs are otherwise grossly clear and without suggestion for acute superimposed disease. There is a small calcified granuloma incidentally noted in the right upper lobe. No pneumothorax. ADDITIONAL FINDINGS: No significant additional findings. IMPRESSION: 1. No acute pulmonary disease. 2. Hyperinflation of the lungs consistent with COPD. Signer Name: Nancie Gross MD Signed: 05/12/2020 9:30 PM Workstation Name: [id number] Transcribed By: Dictated By: Nancie Gross MD Electronically Authenticated By: Nancie Gross MD Signed Date/Time: 05/12/202129 DD/ 28 TD/TT: - Differential Diagnosis ACS, pericarditis, GERD Critical care attestation.: If time is entered above; I have spent that time in minutes in the direct care of this critically ill patient, excluding procedure time. ED Disposition Clinical Impression: Chest pain, Cocaine use Disposition: OP ADMIT IP TO THIS HOSP Is pt being admited?: Yes Does the pt Need Aspirin: Yes Condition: Fair Instructions: Nonspecific Chest Pain, Adult [facility]: [facility] ANGEL [Primary Care Provider] - 3-5 Days Time of Disposition: 00:02 (Hospitalist notified)
[2020-05-12 23:13] LABS: Creatine Kinase MB 3.4 ng/mL (0.0-4.0)
--- NOTE | 2020-05-13 00:34 | History and Physical Report ---
History of Present Illness Date of examination: 05/12/20 Date of admission: 05/12/20 23:18 Chief complaint: Chest pain Shortness of breath History of present illness: The patient is a 64-year-old male present with chief complaint of chest pain. The patient states he smoked a friend cigarette but did not know there was cocaine inside at approximate 14: 00. The patient states he then developed substernal chest pain associated with shortness of breath, nausea/vomiting and diaphoresis. Patient describes pain as sharp and constant in nature. Patient currently gives his pain a score of 9/10 ED work-up shows WBC 12.2 hemoglobin 7.5, platelet 333, sodium 143 potassium 3.6 troponin negative Creatinine 0.9, glucose 133 Chest x-ray done-no focal infiltrates, no pneumothorax. No foreign body seen Patient seen in ED at bedside. Patient on oxygen at 2 L nasal cannula. Patient has shortness of breath. Patient admits cocaine use and he said his chest pain started after using the cocaine. He said he cocaine was given to him by a friend At the time of assessment patient reports chest pain 2/10, has shortness of breath, but he denied nausea or vomiting. Reviewed lab values, medication record, and vital signs. Past History Past Medical History: COPD, HIV/AIDS, hypertension, hyperlipidemia Past Surgical History: No surgical history Social history: Lives alone, smoking, IV drug use Family history: no significant family history Medications and Allergies Allergies Allergy/AdvReac Type Severity Reaction Status Date / Time No Known Allergies Allergy Verified 01/28/20 15:32 Home Medications Medication Instructions Recorded Confirmed Last Taken Type Albuterol Mdi (or & Nicu Only) 2 puff IH QID PRN #1 inhalation 04/11/20 05/12/20 Unknown Rx [ProAir HFA Inhaler] Aspirin EC [Halfprin EC] 81 mg PO QDAY #30 tablet. 04/11/20 05/12/20 Unknown Rx AtorvaSTATin [Lipitor] 40 mg PO QHS tablet 04/11/20 05/12/20 Unknown Rx AtorvaSTATin [Lipitor] 40 mg PO QHS #30 tablet 04/11/20 05/12/20 Unknown Rx Ipratropium/Albuterol Sulfate 1 ampul IH TIDRT #1 ampul.andre 04/11/20 05/12/20 Unknown Rx [DUONEB *Not for PRN Use*] Montelukast (Nf) [Singulair] 5 mg PO QPM #20 tab.chew 04/11/20 05/12/20 Unknown Rx Montelukast [Singulair] 10 mg PO QHS tablet 04/11/20 05/12/20 Unknown Rx Pantoprazole [Protonix TAB] 40 mg PO QDAC #30 tablet 04/11/20 05/12/20 Unknown Rx dilTIAZem CD [Cardizem CD] 240 mg PO QDAY capsule 04/11/20 05/12/20 Unknown Rx methylPREDNISolone [Medrol 4MG 4 mg PO QAM #1 tab.ds.pk 04/11/20 05/12/20 Unknown Rx DOSEPAK (21 tabs)] oxyCODONE /ACETAMINOPHEN [Percocet 1 tab PO Q6H PRN #8 tablet 04/11/20 05/12/20 Unknown Rx 5/325 mg] Albuterol Sulfate [Proair 90 mcg IH Q4HR PRN #2 aer.pow.ba 04/27/20 05/12/20 Unknown Rx Respiclick] Calcium Carbonate [Calcium 400 mg PO QDAY #30 tab.chew 04/27/20 05/12/20 Unknown Rx Carbonate 400MG CHEW] Docusate Sodium [Colace] 100 mg PO BID PRN #60 capsule 04/27/20 05/12/20 Unknown Rx Ferrous Sulfate [Feosol 325 MG tab] 325 mg PO BID #60 tablet 04/27/20 05/12/20 Unknown Rx methylPREDNISolone [Medrol 4MG 4 mg PO QDAY #1 tab.ds.pk 04/27/20 05/12/20 Unknown Rx DOSEPAK (21 tabs)] Albuterol Mdi (or & Nicu Only) 2 puff IH QID PRN #8.5 gram 05/05/20 05/12/20 Unknown Rx [ProAir HFA Inhaler] Review of Systems Constitutional: fatigue, weakness Ears, nose, mouth and throat: no epistaxis Cardiovascular: chest pain, shortness of breath, high blood pressure, decreased exercise tolerance Respiratory: shortness of breath, home oxygen Gastrointestinal: no abdominal pain, no nausea Genitourinary Male: no hematuria Rectal: no pain Musculoskeletal: no neck stiffness Integumentary: no rash, no pruritis Neurological: no ataxia Psychiatric: anxiety, no disorientation, no hallucinations Hematologic/Lymphatic: no easy bruising Allergic/Immunologic: no urticaria Exam - Constitutional Vitals: Temp Pulse Resp BP Pulse Ox 98.1 F 102 H 19 180/93 100 05/12/20 21:06 05/13/20 00:15 05/13/20 00:15 05/13/20 00:15 05/13/20 00:15 General appearance: Present: mild distress, other (appears fragile) - EENT Eyes: Present: PERRL ENT: hearing intact, clear oral mucosa - Neck Neck: Present: supple, normal ROM - Respiratory Respiratory effort: accessory muscle use Respiratory: bilateral: diminished - Cardiovascular Heart rate: 108 Heart Sounds: Present: S1 & S2. Absent: rub, click - Extremities Extremities: pulses symmetrical, No edema Peripheral Pulses: within normal limits - Abdominal General gastrointestinal: Present: soft, non-tender, non-distended, normal bowel sounds Male genitourinary: Present: normal - Integumentary Integumentary: Present: clear, warm, dry - Musculoskeletal Musculoskeletal: gait normal, strength equal bilaterally - Psychiatric Psychiatric: appropriate mood/affect, intact judgment & insight - Neurologic Neurologic: CNII-XII intact, moves all extremities - Allied Health Allied health notes reviewed: nursing HEART Score - HEART Score Troponin: Troponin T < 0.010 ng/mL (0.00-0.029) 05/12/20 Unknown Results - Labs CBC & Chem 7: 05/12/20 21:07 05/12/20 21:07 Labs: Abnormal lab results 05/12/20 05/12/20 Range/Units 21:07 21:07 WBC 12.2 H (4.5-11.0) K/mm3 RBC 3.12 L (3.65-5.03) M/mm3 Hgb 7.5 L (11.8-15.2) gm/dl Hct 24.3 L (35.5-45.6) % MCV 78 L (84-94) fl MCH 24 L (28-32) pg MCHC 31 L (32-34) % RDW 27.2 H (13.2-15.2) % Lymphocytes % (Manual) 1.0 L (13.4-35.0) % Seg Neutrophils # Man 11.5 H (1.8-7.7) K/mm3 Lymphocytes # (Manual) 0.1 L (1.2-5.4) K/mm3 Carbon Dioxide 32 H (22-30) mmol/L Glucose 133 H (75-100) mg/dL Calcium 8.1 L (8.4-10.2) mg/dL Albumin 3.5 L (3.9-5) g/dL Assessment and Plan - Patient Problems (1) Chest pain Current Visit: Yes Status: Acute Plan to address problem: As needed nitro sublingual Troponin negative and CT of the chest negative. Fire Prevention Officer consult (2) Cocaine use Current Visit: Yes Status: Chronic Plan to address problem: History of cocaine Discussed cocaine use cessation Consequences of cocaine use explained to patient including cardiac arrest (3) COPD (chronic obstructive pulmonary disease) Current Visit: No Status: Chronic Qualifiers: COPD type: unspecified COPD Qualified Code(s): J44.9 - Chronic obstructive pulmonary disease, unspecified Plan to address problem: History of COPD Continue oxygen supplement with ABGs as needed Chest x-ray showed no acute findings Bronchodilator as needed (4) Hypertension Current Visit: No Status: Chronic Qualifiers: Hypertension type: essential hypertension Qualified Code(s): I10 - Essential (primary) hypertension Plan to address problem: Monitor blood pressure To resume home BP medication As needed hydralazine Would adjust blood pressure medicine if needed (5) Acute respiratory failure with hypoxia Current Visit: No Status: Acute Plan to address problem: Patient has home oxygen Continue with oxygen supplements with ABG as needed (6) Anemia Current Visit: Yes Status: Acute Plan to address problem: Questionable cause- malnutrition/iron deficiency Monitor her H&H will transfuse packed red blood cells if H&H is less than 7 Multivitamin and iron supplements. (7) DVT prophylaxis Current Visit: Yes Status: Acute Plan to address problem: SCD
[2020-05-13] MEDS ORDERED: hydrALAZINE 20 MG/1 ML INJ IV PRN (00:47)
[2020-05-13] MEDS ORDERED: traZODone 50 MG TAB PO PRN (00:48)
[2020-05-13] MEDS ORDERED: NITROGLYCERIN 0.4 MG TAB SUBL SL PRN (00:48)
[2020-05-13] MEDS ORDERED: ONDANSETRON 4 MG/2 ML INJ IV PRN (00:48)
[2020-05-13] MEDS: ALBUTEROL 2.5 MG/3 ML NEBU IH PRN ×3 (04:36→16:41)
--- NOTE | 2020-05-13 08:36 | Progress Note ---
Subjective Date of service: 05/13/20 Objective - Constitutional Vitals: Vital Signs - 12hr 05/12/20 05/12/20 05/12/20 21:06 23:42 23:45 Temperature 98.1 F Pulse Rate 97 H 133 H 104 H Pulse Rate [ Bilateral] Respiratory 18 23 23 Rate Respiratory Rate [Bilateral ] Blood Pressure 144/95 O2 Sat by Pulse 100 95 96 Oximetry 05/13/20 05/13/20 05/13/20 00:01 00:15 00:21 Temperature Pulse Rate 79 102 H 87 Pulse Rate [ Bilateral] Respiratory 20 19 22 Rate Respiratory Rate [Bilateral ] Blood Pressure 180/93 180/91 O2 Sat by Pulse 100 100 100 Oximetry 05/13/20 05/13/20 05/13/20 00:31 01:15 03:31 Temperature 97.7 F 97.3 F L Pulse Rate 79 96 H 94 H Pulse Rate [ Bilateral] Respiratory 21 20 20 Rate Respiratory Rate [Bilateral ] Blood Pressure 180/91 191/111 158/111 O2 Sat by Pulse 100 100 100 Oximetry 05/13/20 04:06 Temperature Pulse Rate Pulse Rate [ 70 Bilateral] Respiratory Rate Respiratory 22 Rate [Bilateral ] Blood Pressure O2 Sat by Pulse Oximetry - Labs CBC & Chem 7: 05/12/20 21:07 05/12/20 21:07 Labs: Abnormal lab results 05/12/20 05/12/20 Range/Units 21:07 21:07 WBC 12.2 H (4.5-11.0) K/mm3 RBC 3.12 L (3.65-5.03) M/mm3 Hgb 7.5 L (11.8-15.2) gm/dl Hct 24.3 L (35.5-45.6) % MCV 78 L (84-94) fl MCH 24 L (28-32) pg MCHC 31 L (32-34) % RDW 27.2 H (13.2-15.2) % Lymphocytes % (Manual) 1.0 L (13.4-35.0) % Seg Neutrophils # Man 11.5 H (1.8-7.7) K/mm3 Lymphocytes # (Manual) 0.1 L (1.2-5.4) K/mm3 Carbon Dioxide 32 H (22-30) mmol/L Glucose 133 H (75-100) mg/dL Calcium 8.1 L (8.4-10.2) mg/dL Albumin 3.5 L (3.9-5) g/dL HEART Score - HEART Score Troponin: Troponin T < 0.010 ng/mL (0.00-0.029) 05/12/20 Unknown
[2020-05-13] MEDS ORDERED: MULTIVITAMINS ,THERAPEUTIC TAB PO SCH (10:00)
[2020-05-13] MEDS ORDERED: FERROUS SULFATE 325 MG TAB PO SCH (10:00)
[2020-05-13] MEDS ORDERED: ASPIRIN EC 81 MG TAB PO SCH (10:00)
[2020-05-13] MEDS ORDERED: dilTIAZem CD 240 MG CAP PO SCH (10:00)
[2020-05-13] MEDS ORDERED: METOPROLOL TARTRATE 50 MG TAB PO SCH (10:00)
--- NOTE | 2020-05-13 10:27 | Consultation ---
History of Present Illness Consult date: 05/13/20 Requesting physician: MOUNA LEO Consult reason: chest pain History of present illness: 64-year-old male with hypertension hyperlipidemia coronary arterial disease drug abuse multiple admissions to the emergency room patient was smoking and had cocaine in the cigarette. Patient came to emergency room for evaluation patient complains of chest pain which is worse with deep inspiration. Not exertional. No nausea no vomiting no syncope no fever no chills. Troponin x3 - cardiac cath last year showed patent left coronary system mild disease in RCA. Recent echocardiogram normally function without significant regurgitation Past History Past Medical History: CAD, COPD, HIV/AIDS, hypertension, hyperlipidemia Past Surgical History: No surgical history Social history: Lives alone, smoking, IV drug use Family history: no significant family history Medications and Allergies Allergies Allergy/AdvReac Type Severity Reaction Status Date / Time No Known Allergies Allergy Verified 01/28/20 15:32 Home Medications Medication Instructions Recorded Confirmed Last Taken Type Albuterol Mdi (or & Nicu Only) 2 puff IH QID PRN #1 inhalation 04/11/20 05/12/20 Unknown Rx [ProAir HFA Inhaler] Aspirin EC [Halfprin EC] 81 mg PO QDAY #30 tablet. 04/11/20 05/12/20 Unknown Rx AtorvaSTATin [Lipitor] 40 mg PO QHS tablet 04/11/20 05/12/20 Unknown Rx AtorvaSTATin [Lipitor] 40 mg PO QHS #30 tablet 04/11/20 05/12/20 Unknown Rx Ipratropium/Albuterol Sulfate 1 ampul IH TIDRT #1 ampul.neb 04/11/20 05/12/20 Unknown Rx [DUONEB *Not for PRN Use*] Montelukast (Nf) [Singulair] 5 mg PO QPM #20 tab.chew 04/11/20 05/12/20 Unknown Rx Montelukast [Singulair] 10 mg PO QHS tablet 04/11/20 05/12/20 Unknown Rx Pantoprazole [Protonix TAB] 40 mg PO QDAC #30 tablet 04/11/20 05/12/20 Unknown Rx dilTIAZem CD [Cardizem CD] 240 mg PO QDAY capsule 04/11/20 05/12/20 Unknown Rx methylPREDNISolone [Medrol 4MG 4 mg PO QAM #1 tab.ds.pk 04/11/20 05/12/20 Unknown Rx DOSEPAK (21 tabs)] oxyCODONE /ACETAMINOPHEN [Percocet 1 tab PO Q6H PRN #8 tablet 04/11/20 05/12/20 Unknown Rx 5/325 mg] Albuterol Sulfate [Proair 90 mcg IH Q4HR PRN #2 aer.pow.ba 04/27/20 05/12/20 Unknown Rx Respiclick] Calcium Carbonate [Calcium 400 mg PO QDAY #30 tab.chew 04/27/20 05/12/20 Unknown Rx Carbonate 400MG CHEW] Docusate Sodium [Colace] 100 mg PO BID PRN #60 capsule 04/27/20 05/12/20 Unknown Rx Ferrous Sulfate [Feosol 325 MG tab] 325 mg PO BID #60 tablet 04/27/20 05/12/20 Unknown Rx methylPREDNISolone [Medrol 4MG 4 mg PO QDAY #1 tab.ds.pk 04/27/20 05/12/20 Unknown Rx DOSEPAK (21 tabs)] Albuterol Mdi (or & Nicu Only) 2 puff IH QID PRN #8.5 gram 05/05/20 05/12/20 Unknown Rx [ProAir HFA Inhaler] Active Meds: Active Medications Albuterol (Albuterol 2.5 Mg/3 Ml Nebu) 2.5 mg IH Q4HRT PRN PRN Reason: Shortness Of Breath Last Admin: 05/13/20 04:36 Dose: 2.5 mg Documented by: Aspirin (Aspirin Ec 81 Mg Tab) 81 mg PO QDAY NADIA Atorvastatin Calcium (Atorvastatin 40 Mg Tab) 40 mg PO QHS [facility] Diltiazem HCl (Diltiazem Cd 240 Mg Cap) 240 mg PO QDAY NADIA Ferrous Sulfate (Ferrous Sulfate 325 Mg Tab) 325 mg PO BID [facility] Hydralazine HCl (Hydralazine 20 Mg/1 Ml Inj) 5 mg IV Q4H PRN PRN Reason: Hypertension Multivitamins (Multivitamins ,Therapeutic Tab) 1 each PO QDAY [facility] Nitroglycerin (Nitroglycerin 0.4 Mg Tab Subl) 0.4 mg SL .Q5MIN PRN PRN Reason: Chest Pain Ondansetron HCl (Ondansetron 4 Mg/2 Ml Inj) 4 mg IV Q4H PRN PRN Reason: Nausea And Vomiting Trazodone HCl (Trazodone 50 Mg Tab) 50 mg PO QHS PRN PRN Reason: Insomnia Review of Systems All systems: negative (As per the HPI) Physical Examination Vital Signs Temp Pulse Resp BP Pulse Ox 98.1 F 97 H 18 144/95 100 05/12/20 21:06 05/12/20 21:06 05/12/20 21:06 05/12/20 21:06 05/12/20 21:06 General appearance: no acute distress, well-nourished HEENT: Positive: PERRL, Mucus Membranes Moist Neck: Positive: neck supple, trachea midline Cardiac: Positive: Reg Rate and Rhythm, S1/S2. Negative: Audible Murmur Lungs: Positive: clear to auscultation, Normal Breath Sounds Neuro: Positive: Grossly Intact Abdomen: Positive: Soft, Active Bowel Sounds. Negative: Tender, Distended Male genitourinary: Positive: normal Skin: Positive: Clear Incision: Cardiac Cath Site Musculoskeletal: No Pain, Normal Range of Motion Extremities: Present: normal. Absent: edema Results 05/12/20 21:07 05/12/20 21:07 Cardiac Enzymes 05/12/20 05/12/20 Range/Units 21:07 Unknown AST 17 (5-40) units/L CK-MB (CK-2) 3.4 (0.0-4.0) ng/mL CBC 05/12/20 Range/Units 21:07 WBC 12.2 H (4.5-11.0) K/mm3 RBC 3.12 L (3.65-5.03) M/mm3 Hgb 7.5 L (11.8-15.2) gm/dl Hct 24.3 L (35.5-45.6) % Plt Count 333 (140-440) K/mm3 Comprehensive Metabolic Panel 05/12/20 Range/Units 21:07 Sodium 143 (137-145) mmol/L Potassium 3.6 (3.6-5.0) mmol/L Chloride 101.5 (98-107) mmol/L Carbon Dioxide 32 H (22-30) mmol/L BUN 17 (9-20) mg/dL Creatinine 0.9 (0.8-1.3) mg/dL Glucose 133 H (75-100) mg/dL Calcium 8.1 L (8.4-10.2) mg/dL AST 17 (5-40) units/L ALT 20 (7-56) units/L Alkaline Phosphatase 86 (35-129) units/L Total Protein 7.0 (6.3-8.2) g/dL Albumin 3.5 L (3.9-5) g/dL - Imaging and Cardiology Echo: report reviewed (04/16 normal LV function without significant regurgitation) Cardiac cath: report reviewed (2019 left main patent LAD patent circumflex pain RCA proximal 20% normal LV function) EKG interpretations - Telemetry EKG Rhythm: Sinus Rhythm (Normal sinus rhythm nonspecific ST-T's) Assessment and Plan 64-year-old male with chronic anemia HIV tobacco abuse hypertension hyperlipidemia continue calcium channel dominik and statin and low-dose aspirin no beta-dominik in view of history of cocaine use. Negative troponin x3. Nonobstructive coronary disease based on cath last year. Normal LV function recent echocardiogram. Patient chest pain is atypical in nature reproducible. Patient may be discharged from a cardiovascular point of view discussed the fact smoking cessation and stopping drug use - Patient Problems (1) Anemia Current Visit: Yes Status: Acute (2) Chest pain Current Visit: Yes Status: Acute (3) Cocaine use Current Visit: Yes Status: Chronic (4) History of HIV infection Current Visit: No Status: Acute (5) History of chest pain Current Visit: No Status: Acute (6) COPD (chronic obstructive pulmonary disease) Current Visit: No Status: Chronic Qualifiers: COPD type: unspecified COPD Qualified Code(s): J44.9 - Chronic obstructive pulmonary disease, unspecified (7) HIV (human immunodeficiency virus infection) Current Visit: No Status: Chronic (8) Hypertension Current Visit: No Status: Chronic Qualifiers: Hypertension type: essential hypertension Qualified Code(s): I10 - Essential (primary) hypertension (9) Nonobstructive atherosclerosis of coronary artery Current Visit: No Status: Chronic (10) Tobacco use Current Visit: No Status: Chronic
[2020-05-13 15:31] VITALS: BP 121/79
--- NOTE | 2020-05-13 16:28 | Discharge Summary ---
Providers - Providers Date of Admission: 05/12/20 23:18 Date of discharge: 05/13/20 Attending physician: MOUNA LEO 05/13/20 06:31 Consult to Physician [CONS] Routine Comment: [facility] Physician Instructions: Reason For Exam: chest pain [facility] Condition: Fair Hospital course: 64-year-old male with hypertension hyperlipidemia coronary arterial disease drug abuse multiple admissions to the emergency room patient was smoking and had cocaine in the cigarette. Patient came to emergency room for evaluation patient complains of chest pain which is worse with deep inspiration. Not exertional. No nausea no vomiting no syncope no fever no chills. Troponin x3 - cardiac cath last year showed patent left coronary system mild disease in RCA. Recent echocardiogram normally function without significant regurgitation Past History Past Medical History: COPD, HIV/AIDS, hypertension, hyperlipidemia Past Surgical History: No surgical history Social history: Lives alone, smoking, IV drug use Family history: no significant family history Assessment and Plan 64-year-old male with chronic anemia HIV tobacco abuse hypertension hyperlipidemia continue calcium channel dominik and statin and low-dose aspirin no beta-dominik in view of history of cocaine use. Negative troponin x3. Nonob structive coronary disease based on cath last year. Normal LV function recent echocardiogram. Patient chest pain is atypical in nature reproducible. Discussed smoking cessation and stopping drug use Assessment and Plan - Patient Problems (1) Chest pain Current Visit: Yes Status: Acute Plan to address problem: Atypical chest pain Reproducible Costochondritis (2) Cocaine use Current Visit: Yes Status: Chronic Plan to address problem: History of cocaine Discussed cocaine use cessation Consequences of cocaine use explained to patient including cardiac arrest (3) costochondritis Meloxicam 15 mg daily for 10 days (4) Hypertension Current Visit: No Status: Chronic Qualifiers: Hypertension type: essential hypertension Qualified Code(s): I10 - Essential (primary) hypertension Plan to address problem: Monitor blood pressure To resume home BP medication As needed hydralazine Would adjust blood pressure medicine if needed (5) Acute respiratory failure with hypoxia Current Visit: No Status: Acute Plan to address problem: Patient has home oxygen Continue with oxygen supplements with ABG as needed (6) Anemia Current Visit: Yes Status: Acute Plan to address problem: Iron deficiency anemia MCH MCV is low Disposition: DC-01 TO HOME OR SELFCARE Final Discharge Diagnosis (Prints w/discharge instructions): Costochondritis. Anemia. Cocaine abuse. Atypical chest pain Time spent for discharge: 35 minutes - Discharge Diagnoses (1) Costochondritis, acute Status: Acute Comment: Meloxicam 15 mg daily for 7 days (2) Chest pain Status: Acute (3) Anemia Status: Chronic Qualifiers: Anemia type: iron deficiency (4) Cocaine use Status: Chronic Comment: Counseled (5) DVT prophylaxis Status: Acute Core Measure Documentation - Palliative Care Palliative Care/ Comfort Measures: Not Applicable - Core Measures Any of the following diagnoses?: none Exam - Constitutional Vitals: Temp Pulse Resp BP Pulse Ox 98.2 F 88 20 121/79 100 05/13/20 11:47 05/13/20 11:47 05/13/20 11:47 05/13/20 11:47 05/13/20 11:47 General appearance: Present: no acute distress, well-nourished - EENT Eyes: Present: PERRL ENT: hearing intact, clear oral mucosa - Neck Neck: Present: supple, normal ROM - Respiratory Respiratory effort: normal Respiratory: bilateral: CTA - Cardiovascular Heart rate: 78 Heart Sounds: Present: S1 & S2. Absent: rub, click - Extremities Extremities: no ischemia, pulses intact, pulses symmetrical, No edema Peripheral Pulses: within normal limits - Abdominal General gastrointestinal: Present: soft, non-tender, non-distended, normal bowel sounds Male genitourinary: Present: normal - Integumentary Integumentary: Present: clear, warm, dry - Musculoskeletal Musculoskeletal: gait normal, strength equal bilaterally - Psychiatric Psychiatric: appropriate mood/affect, intact judgment & insight - Neurologic Neurologic: CNII-XII intact, moves all extremities Plan Activity: no restrictions Diet: low salt Follow up with: BRINA GARCIA MD [Primary Care Provider] - 3-5 Days Forms: Discharge Signature Page
[2020-05-13] MEDS ORDERED: ALPRAZolam 1 MG TAB PO ONE (16:30)
--- NOTE | 2020-05-14 13:58 | Electrocardiograph Report ---
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
== END 2020-05-13 17:59 | disposition home or self-care (01) ==
LOC: ED 20:22 → 4A 23:18
PROVIDERS: ADMIT Internal Medicine Geriatric Medicine; ATTEND Internal Medicine
DX: J96.01 Acute respiratory failure with hypoxia (principal); R07.89 Other chest pain; I10 Essential (primary) hypertension; J44.9 Chronic obstructive pulmonary disease, unspecified; D64.9 Anemia, unspecified; I25.10 Atherosclerotic heart disease of native coronary artery without angina pectoris; E78.00 Pure hypercholesterolemia, unspecified; E78.5 Hyperlipidemia, unspecified; M54.9 Dorsalgia, unspecified; M94.0 Chondrocostal junction syndrome [Tietze]; G89.29 Other chronic pain; F17.210 Nicotine dependence, cigarettes, uncomplicated; F14.90 Cocaine use, unspecified, uncomplicated; Z86.711 Personal history of pulmonary embolism; Z21 Asymptomatic human immunodeficiency virus [HIV] infection status; Z79.82 Long term (current) use of aspirin
CPT/HCPCS: 36415; 71046; 80053; 82550; 82553; 84484; 85025; 93005; 94640; 96374; 96375; 99285; 99406; G0378; J2405; J3010; 85007

== ENCOUNTER 2020-05-15 09:15 | Emergency (ER) | payer MEDICARE ==
[2020-05-15] MEDS ORDERED: ASPIRIN 325 MG TAB PO ONE ×2 (09:21→12:48)
--- NOTE | 2020-05-15 10:45 | XRay Report ---
CHEST 2 VIEWS INDICATION / CLINICAL INFORMATION: CP WITH DIFF BREATHING. COMPARISON: May 12, 2020 FINDINGS: SUPPORT DEVICES: None. HEART / MEDIASTINUM: No significant abnormality. LUNGS / PLEURA: No significant pulmonary or pleural abnormality. No pneumothorax. ADDITIONAL FINDINGS: No significant additional findings. IMPRESSION: 1. No acute findings. Signer Name: Richard Hope MD Signed: 05/15/2020 10:41 AM Workstation Name: [id number]
[2020-05-15 10:47] LABS: Hematocrit 25.9 % (35.5-45.6); Hemoglobin 7.8 gm/dl (11.8-15.2); Mean Corpuscular HGB Conc 30 % (32-34); Mean Corpuscular Volume 78 fl (84-94); Platelet Count 352 K/mm3 (140-440); Red Blood Count 3.31 M/mm3 (3.65-5.03)
[2020-05-15 10:58] LABS: Red Cell Distribution Width 26.5 % (13.2-15.2)
--- NOTE | 2020-05-15 11:34 | Emergency Department Report ---
ED General Adult HPI - General Chief complaint: Chest Pain Stated complaint: RICKY Time Seen by Provider: 05/15/20 11:24 Source: patient, EMS Mode of arrival: Wheelchair Limitations: No Limitations - History of Present Illness Initial comments: Patient is a 64-year-old male presents to emergency department for evaluation of acute exacerbation of chronic chest pain beginning last night, described as diffuse dull pressure across his entire chest. Patient denies dyspnea, denies cough, denies calf pain or swelling, denies fever. Of note, patient evaluated in this emergency department frequently for same. Patient notes noncompliance with all medications as well as noncompliance with follow-up. Severity scale (0 -10): 9 - Related Data Previous Rx's Medication Instructions Recorded Last Taken Type Albuterol Mdi (or & Nicu Only) 2 puff IH QID PRN #1 inhalation 04/11/20 Unknown Rx [ProAir HFA Inhaler] AtorvaSTATin [Lipitor] 40 mg PO QHS tablet 04/11/20 Unknown Rx Montelukast [Singulair] 10 mg PO QHS tablet 04/11/20 Unknown Rx methylPREDNISolone [Medrol 4MG 4 mg PO QAM #1 tab.ds.pk 04/11/20 Unknown Rx DOSEPAK (21 tabs)] oxyCODONE /ACETAMINOPHEN [Percocet 1 tab PO Q6H PRN #8 tablet 04/11/20 Unknown Rx 5/325 mg] Albuterol Sulfate [Proair 90 mcg IH Q4HR PRN #2 aer.pow.ba 04/27/20 Unknown Rx Respiclick] Docusate Sodium [Colace] 100 mg PO BID PRN #60 capsule 04/27/20 Unknown Rx Albuterol Mdi (or & Nicu Only) 2 puff IH QID PRN #8.5 gram 05/05/20 Unknown Rx [ProAir HFA Inhaler] ALPRAZolam [Xanax TAB] 0.5 mg PO BID #16 tablet 05/13/20 Unknown Rx Albuterol Mdi (or & Nicu Only) 2 puff IH QID PRN #8.5 gram 05/13/20 Unknown Rx [ProAir HFA Inhaler] Calcium Carbonate [Calcium 400 mg PO QDAY 30 Days #30 tab.chew 05/13/20 Unknown Rx Carbonate 400MG CHEW] Ferrous Sulfate [Feosol 325 MG tab] 325 mg PO QDAY 60 Days #60 tablet 05/13/20 Unknown Rx Ipratropium/Albuterol Sulfate 1 ampul IH TIDRT #50 ampul.neb 05/13/20 Unknown Rx [DUONEB *Not for PRN Use*] Montelukast (Nf) [Singulair] 10 mg PO QPM #30 tab.chew 05/13/20 Unknown Rx Pantoprazole [Protonix TAB] 40 mg PO QDAY 30 Days #30 tablet 05/13/20 Unknown Rx methylPREDNISolone [Medrol 4MG 4 mg PO QDAY #1 tab.ds.pk 05/13/20 Unknown Rx DOSEPAK (21 tabs)] Aspirin EC [Halfprin EC] 81 mg PO QDAY #100 tablet.dr 05/15/20 Unknown Rx AtorvaSTATin [Lipitor] 40 mg PO QHS #30 tablet 05/15/20 Unknown Rx dilTIAZem CD [Cardizem CD] 240 mg PO QDAY #30 capsule 05/15/20 Unknown Rx Allergies Allergy/AdvReac Type Severity Reaction Status Date / Time No Known Allergies Allergy Verified 05/15/20 09:18 ED Review of Systems ROS: Stated complaint: RICKY Other details as noted in HPI Comment: All other systems reviewed and negative ED Past Medical Hx - Past Medical History Hx Hypertension: Yes Hx Pulmonary Embolism: No Hx Asthma: Yes Hx COPD: Yes (Home O2) Hx HIV: Yes Additional medical history: Elevated Cholesterol & Chronic back pain. - Social History Smoking Status: Current Some Day Smoker Substance Use Type: Alcohol, Cocaine - Medications Home Medications: Home Medications Medication Instructions Recorded Confirmed Last Taken Type Albuterol Mdi (or & Nicu Only) 2 puff IH QID PRN #1 inhalation 04/11/20 05/12/20 Unknown Rx [ProAir HFA Inhaler] AtorvaSTATin [Lipitor] 40 mg PO QHS tablet 04/11/20 05/12/20 Unknown Rx Montelukast [Singulair] 10 mg PO QHS tablet 04/11/20 05/12/20 Unknown Rx methylPREDNISolone [Medrol 4MG 4 mg PO QAM #1 tab.ds.pk 04/11/20 05/12/20 Unknown Rx DOSEPAK (21 tabs)] oxyCODONE /ACETAMINOPHEN [Percocet 1 tab PO Q6H PRN #8 tablet 04/11/20 05/12/20 Unknown Rx 5/325 mg] Albuterol Sulfate [Proair 90 mcg IH Q4HR PRN #2 aer.pow.ba 04/27/20 05/12/20 Unknown Rx Respiclick] Docusate Sodium [Colace] 100 mg PO BID PRN #60 capsule 04/27/20 05/12/20 Unknown Rx Albuterol Mdi (or & Nicu Only) 2 puff IH QID PRN #8.5 gram 05/05/20 05/12/20 Unknown Rx [ProAir HFA Inhaler] ALPRAZolam [Xanax TAB] 0.5 mg PO BID #16 tablet 05/13/20 Unknown Rx Albuterol Mdi (or & Nicu Only) 2 puff IH QID PRN #8.5 gram 05/13/20 Unknown Rx [ProAir HFA Inhaler] Calcium Carbonate [Calcium 400 mg PO QDAY 30 Days #30 tab.chew 05/13/20 Unknown Rx Carbonate 400MG CHEW] Ferrous Sulfate [Feosol 325 MG tab] 325 mg PO QDAY 60 Days #60 tablet 05/13/20 Unknown Rx Ipratropium/Albuterol Sulfate 1 ampul IH TIDRT #50 ampul.neb 05/13/20 Unknown Rx [DUONEB *Not for PRN Use*] Montelukast (Nf) [Singulair] 10 mg PO QPM #30 tab.chew 05/13/20 Unknown Rx Pantoprazole [Protonix TAB] 40 mg PO QDAY 30 Days #30 tablet 05/13/20 Unknown Rx methylPREDNISolone [Medrol 4MG 4 mg PO QDAY #1 tab.ds.pk 05/13/20 Unknown Rx DOSEPAK (21 tabs)] Aspirin EC [Halfprin EC] 81 mg PO QDAY #100 tablet.dr 05/15/20 Unknown Rx AtorvaSTATin [Lipitor] 40 mg PO QHS #30 tablet 05/15/20 Unknown Rx dilTIAZem CD [Cardizem CD] 240 mg PO QDAY #30 capsule 05/15/20 Unknown Rx ED Physical Exam - General Limitations: No Limitations General appearance: alert, in no apparent distress - Head Head exam: Present: atraumatic, normocephalic - Eye Eye exam: Present: normal appearance - ENT ENT exam: Present: mucous membranes moist - Neck Neck exam: Present: normal inspection - Respiratory Respiratory exam: Present: normal lung sounds bilaterally. Absent: respiratory distress - Cardiovascular Cardiovascular Exam: Present: regular rate, normal rhythm - GI/Abdominal GI/Abdominal exam: Present: soft, normal bowel sounds - Rectal Rectal exam: Present: deferred - Extremities Exam Extremities exam: Present: normal inspection - Back Exam Back exam: Present: normal inspection - Neurological Exam Neurological exam: Present: alert, oriented X3 - Psychiatric Psychiatric exam: Present: normal affect, normal mood - Skin Skin exam: Present: warm, dry, intact, normal color. Absent: rash ED Course Vital Signs 05/15/20 05/15/20 05/15/20 09:18 11:24 11:25 Temperature 97.2 F L Pulse Rate 97 H Respiratory 18 18 Rate Blood Pressure 149/92 Blood Pressure [Right] O2 Sat by Pulse 100 100 100 Oximetry 05/15/20 05/15/20 05/15/20 11:27 11:30 11:46 Temperature Pulse Rate 88 94 H 89 Respiratory 20 22 22 Rate Blood Pressure 155/88 155/88 Blood Pressure 155/88 [Right] O2 Sat by Pulse 100 100 100 Oximetry 05/15/20 05/15/20 05/15/20 12:00 12:16 12:30 Temperature Pulse Rate 93 H 72 72 Respiratory 26 H 24 24 Rate Blood Pressure 149/96 138/92 147/85 Blood Pressure [Right] O2 Sat by Pulse 98 100 100 Oximetry 05/15/20 05/15/20 05/15/20 12:46 13:00 13:16 Temperature Pulse Rate 82 103 H 85 Respiratory 25 H 35 H 28 H Rate Blood Pressure 154/82 155/89 155/92 Blood Pressure [Right] O2 Sat by Pulse 100 100 100 Oximetry 05/15/20 13:30 Temperature Pulse Rate 91 H Respiratory 27 H Rate Blood Pressure 152/94 Blood Pressure [Right] O2 Sat by Pulse 97 Oximetry - Reevaluation(s) Reevaluation #1: 05/15/20 11:33 Patient seen frequently from same, note from visit 6 days ago copied below, however, patient has been evaluated multiple times since this visit: "Please see MD note from this morning: "The patient is a 64-year-old gentleman, who is a frequent utilizer of this emergency room. I have evaluated this patient multiple times. Patient recently had a CT scan of the chest which was negative for pulmonary embolism. 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 Please see my most recent chart on this patient from his earlier visit earlier on this month, and the aforementioned studies/interventions." Reevaluation #2: 05/15/20 14:03 Patient reevaluated and denies chest pain. Wrote refills of statin, diltiazem, and aspirin on request. Discussed at length importance of cardiology and primary care doctor follow-up. Provided information for cardiology on-call. Discussed with patient pre-existing heart disease which is seemingly unamenable to invasive treatment and consequently requires intense follow-up. ED Medical Decision Making - Lab Data Result diagrams: 05/15/20 10:15 05/15/20 10:15 Lab Results 05/15/20 05/15/20 05/15/20 Range/Units 10:15 10:15 12:31 WBC 13.2 H (4.5-11.0) K/mm3 RBC 3.31 L (3.65-5.03) M/mm3 Hgb 7.8 L (11.8-15.2) gm/dl Hct 25.9 L (35.5-45.6) % MCV 78 L (84-94) fl MCH 24 L (28-32) pg MCHC 30 L (32-34) % RDW 26.5 H (13.2-15.2) % Plt Count 352 (140-440) K/mm3 Sodium 139 (137-145) mmol/L Potassium 3.9 (3.6-5.0) mmol/L Chloride 100.5 (98-107) mmol/L Carbon Dioxide 31 H (22-30) mmol/L Anion Gap 11 mmol/L BUN 17 (9-20) mg/dL Creatinine 1.0 (0.8-1.3) mg/dL Estimated GFR > 60 ml/min BUN/Creatinine Ratio 17 % Glucose 113 H (75-100) mg/dL Calcium 7.8 L (8.4-10.2) mg/dL Total Bilirubin 0.30 (0.1-1.2) mg/dL AST 18 (5-40) units/L ALT 23 (7-56) units/L Alkaline Phosphatase 90 (35-129) units/L Troponin T < 0.010 (0.00-0.029) ng/mL Total Protein 7.2 (6.3-8.2) g/dL Albumin 3.3 L (3.9-5) g/dL Albumin/Globulin Ratio 0.8 % Vital Signs 05/15/20 05/15/20 05/15/20 09:18 11:24 11:25 Temperature 97.2 F L Pulse Rate 97 H Respiratory 18 18 Rate Blood Pressure 149/92 Blood Pressure [Right] O2 Sat by Pulse 100 100 100 Oximetry 05/15/20 05/15/20 05/15/20 11:27 11:30 11:46 Temperature Pulse Rate 88 94 H 89 Respiratory 20 22 22 Rate Blood Pressure 155/88 155/88 Blood Pressure 155/88 [Right] O2 Sat by Pulse 100 100 100 Oximetry 05/15/20 05/15/20 05/15/20 12:00 12:16 12:30 Temperature Pulse Rate 93 H 72 72 Respiratory 26 H 24 24 Rate Blood Pressure 149/96 138/92 147/85 Blood Pressure [Right] O2 Sat by Pulse 98 100 100 Oximetry 05/15/20 05/15/20 05/15/20 12:46 13:00 13:16 Temperature Pulse Rate 82 103 H 85 Respiratory 25 H 35 H 28 H Rate Blood Pressure 154/82 155/89 155/92 Blood Pressure [Right] O2 Sat by Pulse 100 100 100 Oximetry 05/15/20 13:30 Temperature Pulse Rate 91 H Respiratory 27 H Rate Blood Pressure 152/94 Blood Pressure [Right] O2 Sat by Pulse 97 Oximetry - EKG Data -: EKG Interpreted by Me (Sinus rhythm at 95, no ST-T changes, normal QRS) - Radiology Data Radiology results: report reviewed Chest x-ray negative per radiology Critical care attestation.: If time is entered above; I have spent that time in minutes in the direct care of this critically ill patient, excluding procedure time. ED Disposition Clinical Impression: Chest pain Disposition: DC-01 TO HOME OR SELFCARE Is pt being admited?: No Does the pt Need Aspirin: Yes Condition: Stable Instructions: Nonspecific Chest Pain, Adult Additional Instructions: Follow-up with PMD or cardiology in 1 to 2 days for reevaluation. Return to the emergency department for worsening symptoms. Prescriptions: AtorvaSTATin [Lipitor] 40 mg PO QHS #30 tablet dilTIAZem CD [Cardizem CD] 240 mg PO QDAY #30 capsule Aspirin EC [Halfprin EC] 81 mg PO QDAY #100 tablet.dr Referrals: BARRINGTON WALKER MD [Staff Physician] - 3-5 Days PRIMARY CARE, [Primary Care Provider] - 3-5 Days Heart Score - HEART Score History: Slightly suspicious EKG: Normal Age: 45-65 Risk factors: > 3 risk factors or hx of atherosclerotic disease Troponin: < normal limit HEART Score: 3 - Critical Actions Critical Actions: 0-3 pts:0.9-1.7%risk of adverse cardiac event.Candidate for discharge
[2020-05-15 11:37] LABS: Alanine Aminotransferase 23 units/L (7-56); Albumin 3.3 g/dL (3.9-5); BUN/Creatinine Ratio 17; Blood Urea Nitrogen 17 mg/dL (9-20); Calcium 7.8 mg/dL (8.4-10.2); Hemolysis Index 7
[2020-05-15 13:51] VITALS: BP 152/94
[2020-05-15 17:19] LABS: Anisocytosis 2+; Hypochromasia 1+; Ovalocytes Few; Schistocytes Rare; Tear Drop Cells Rare; Total Cells Counted 100
--- NOTE | 2020-05-18 10:53 | Electrocardiograph Report ---
[facility] Test Date: 2020-05-15 Test Time: 09:32:18 Pat Name: NAVARRO YAN Department: Room: Gender: M Radius Grinder: : 1955 Requested By: ANG MIMS Order Number: [id number] Reading MD: Barney Hall Measurements Intervals [place] Rate: 95 P: 79 NM: 144 QRS: 47 QRSD: 92 T: 60 QT: 350 QTc: 442 Interpretive Statements Sinus rhythm Atrial premature complex Right atrial enlargement Consider anterior infarct Compared to ECG 05/12/2020 21:00:52 Atrial premature complex(es) now present Electronically Signed On 05-18-2020 7:53:01 PDT by Barney Hall
--- NOTE | 2020-05-18 11:01 | Electrocardiograph Report ---
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 Electronically Signed On 05-18-2020 8:01:26 PDT by Barney Hall
== END 2020-05-15 13:52 | disposition home or self-care (01) ==
LOC: ED 09:15
DX: R07.89 Other chest pain (principal); I10 Essential (primary) hypertension; J45.909 Unspecified asthma, uncomplicated; J44.9 Chronic obstructive pulmonary disease, unspecified; F17.200 Nicotine dependence, unspecified, uncomplicated; F14.10 Cocaine abuse, uncomplicated; Z21 Asymptomatic human immunodeficiency virus [HIV] infection status; Z79.899 Other long term (current) drug therapy
CPT/HCPCS: 36415; 71046; 80053; 84484; 85007; 85025; 93005

== ENCOUNTER 2020-05-16 03:51 | Emergency (ER) | payer MEDICARE ==
--- NOTE | 2020-05-16 04:14 | Event Note ---
Date: 05/16/20 The patient was evaluated in the emergency department for symptoms described in the history of present illness. He/she was evaluated in the context of the global COVID-19 pandemic, which necessitated consideration that the patient might be at risk for infection with the virus that causes COVID-19. Institutional protocols and algorithms that pertain to the evaluation of patients at risk for COVID-19 are in a state of rapid change based on information released by regulatory bodies including the CDC and federal and state organizations. These policies and algorithms were followed during the patient's care in the emergency department. Please note that these policies, procedures and recommendations changed on a rapid basis. 64-year-old gentleman, well-known to this department, frequent utilizer of this department, presenting with his typical constellation of complaints, including chest tightness, and COPD. He is resting comfortably in his stretcher at this time, and does not appear to be in any acute distress. Obtain EKG, laboratory studies, x-ray the chest. Reassess.
[2020-05-16] MEDS ORDERED: ALBUTEROL 2.5 MG/3 ML NEBU IH ONE ×3 (04:52→05:09)
[2020-05-16] MEDS ORDERED: IPRATROPIUM 0.02% NEBU 2.5 ML IH ONE ×3 (04:52→05:10)
--- NOTE | 2020-05-16 04:58 | XRay Report ---
CHEST 1 VIEW 05/16/2020 3:42 AM INDICATION / CLINICAL INFORMATION: cp. COMPARISON: 05/15/2020 FINDINGS: SUPPORT DEVICES: None. HEART / MEDIASTINUM: No significant abnormality. LUNGS / PLEURA: No significant pulmonary or pleural abnormality. No pneumothorax. ADDITIONAL FINDINGS: No significant additional findings. IMPRESSION: 1. No acute findings. Signer Name: Narendra Torres MD Signed: 05/16/2020 4:54 AM Workstation Name: [id number]
[2020-05-16 05:03] LABS: Hematocrit 23.5 % (35.5-45.6); Hemoglobin 7.1 gm/dl (11.8-15.2); Mean Corpuscular HGB Conc 30 % (32-34); Mean Corpuscular Volume 80 fl (84-94); Platelet Count 310 K/mm3 (140-440); Red Blood Count 2.93 M/mm3 (3.65-5.03)
[2020-05-16 05:09] LABS: Red Cell Distribution Width 25.6 % (13.2-15.2)
[2020-05-16 05:17] LABS: INR 0.94 (0.87-1.13)
[2020-05-16 05:39] LABS: Alanine Aminotransferase 30 units/L (7-56); Albumin 3.1 g/dL (3.9-5); BUN/Creatinine Ratio 18; Blood Urea Nitrogen 22 mg/dL (9-20); Calcium 7.1 mg/dL (8.4-10.2); Hemolysis Index 0
--- NOTE | 2020-05-16 07:02 | Emergency Department Report ---
ED Shortness of Breath HPI - General Chief Complaint: Dyspnea/Respdistress Stated Complaint: RICKY Time Seen by Provider: 05/16/20 06:15 Source: EMS Mode of arrival: Stretcher Limitations: No Limitations - History of Present Illness Initial Comments: 64-year-old male, history of COPD, presents to ED with difficulty breathing and chest tightness secondary to COPD exacerbation. Patient has been seen multiple times for same complaints. Patient was seen in the ED on yesterday, and admitted 3 days ago. Patient denies any cough or fever. Patient states last cocaine use was 2 weeks ago. Patient received albuterol nebs prior to my arrival here in the ED. Patient is currently laying on the stretcher, asleep, comfortable, easily aroused. States he is feeling much better at this time. No chest pain currently. MD Complaint: shortness of breath -: This morning Severity: moderate Quality: other (Tightness) Consistency: intermittent, now resolved Improves With: bronchodilators Worsens With: exertion Known History Of: COPD Associated Symptoms: chest pain Treatments Prior to Arrival: none - Related Data Home Oxygen Therapy: Yes Previous Rx's Medication Instructions Recorded Last Taken Type Albuterol Mdi (or & Nicu Only) 2 puff IH QID PRN #1 inhalation 04/11/20 Unknown Rx [ProAir HFA Inhaler] AtorvaSTATin [Lipitor] 40 mg PO QHS tablet 04/11/20 Unknown Rx Montelukast [Singulair] 10 mg PO QHS tablet 04/11/20 Unknown Rx methylPREDNISolone [Medrol 4MG 4 mg PO QAM #1 tab.ds.pk 04/11/20 Unknown Rx DOSEPAK (21 tabs)] oxyCODONE /ACETAMINOPHEN [Percocet 1 tab PO Q6H PRN #8 tablet 04/11/20 Unknown Rx 5/325 mg] Albuterol Sulfate [Proair 90 mcg IH Q4HR PRN #2 aer.pow.ba 04/27/20 Unknown Rx Respiclick] Docusate Sodium [Colace] 100 mg PO BID PRN #60 capsule 04/27/20 Unknown Rx Albuterol Mdi (or & Nicu Only) 2 puff IH QID PRN #8.5 gram 05/05/20 Unknown Rx [ProAir HFA Inhaler] ALPRAZolam [Xanax TAB] 0.5 mg PO BID #16 tablet 05/13/20 Unknown Rx Albuterol Mdi (or & Nicu Only) 2 puff IH QID PRN #8.5 gram 05/13/20 Unknown Rx [ProAir HFA Inhaler] Calcium Carbonate [Calcium 400 mg PO QDAY 30 Days #30 tab.chew 05/13/20 Unknown Rx Carbonate 400MG CHEW] Ferrous Sulfate [Feosol 325 MG tab] 325 mg PO QDAY 60 Days #60 tablet 05/13/20 Unknown Rx Montelukast (Nf) [Singulair] 10 mg PO QPM #30 tab.chew 05/13/20 Unknown Rx Pantoprazole [Protonix TAB] 40 mg PO QDAY 30 Days #30 tablet 05/13/20 Unknown Rx methylPREDNISolone [Medrol 4MG 4 mg PO QDAY #1 tab.ds.pk 05/13/20 Unknown Rx DOSEPAK (21 tabs)] Aspirin EC [Halfprin EC] 81 mg PO QDAY #100 tablet.dr 05/15/20 Unknown Rx AtorvaSTATin [Lipitor] 40 mg PO QHS #30 tablet 05/15/20 Unknown Rx dilTIAZem CD [Cardizem CD] 240 mg PO QDAY #30 capsule 05/15/20 Unknown Rx Ipratropium/Albuterol Sulfate 1 ampul IH TIDRT #50 ampul.neb 05/16/20 Unknown Rx [DUONEB *Not for PRN Use*] Allergies Allergy/AdvReac Type Severity Reaction Status Date / Time No Known Allergies Allergy Verified 05/15/20 09:18 ED Review of Systems ROS: Stated complaint: RICKY Other details as noted in HPI Comment: All other systems reviewed and negative Constitutional: denies: chills, fever Respiratory: shortness of breath. denies: cough Cardiovascular: chest pain ED Past Medical Hx - Past Medical History Previous Medical History?: Yes Hx Hypertension: Yes Hx Pulmonary Embolism: No Hx Asthma: Yes Hx COPD: Yes (Home O2) Hx HIV: Yes Additional medical history: Elevated Cholesterol & Chronic back pain. - Surgical History Past Surgical History?: Yes - Social History Smoking Status: Current Every Day Smoker Substance Use Type: Cocaine - Medications Home Medications: Home Medications Medication Instructions Recorded Confirmed Last Taken Type Albuterol Mdi (or & Nicu Only) 2 puff IH QID PRN #1 inhalation 04/11/20 05/12/20 Unknown Rx [ProAir HFA Inhaler] AtorvaSTATin [Lipitor] 40 mg PO QHS tablet 04/11/20 05/12/20 Unknown Rx Montelukast [Singulair] 10 mg PO QHS tablet 04/11/20 05/12/20 Unknown Rx methylPREDNISolone [Medrol 4MG 4 mg PO QAM #1 tab.ds.pk 04/11/20 05/12/20 Unknown Rx DOSEPAK (21 tabs)] oxyCODONE /ACETAMINOPHEN [Percocet 1 tab PO Q6H PRN #8 tablet 04/11/20 05/12/20 Unknown Rx 5/325 mg] Albuterol Sulfate [Proair 90 mcg IH Q4HR PRN #2 aer.pow.ba 04/27/20 05/12/20 Unknown Rx Respiclick] Docusate Sodium [Colace] 100 mg PO BID PRN #60 capsule 04/27/20 05/12/20 Unknown Rx Albuterol Mdi (or & Nicu Only) 2 puff IH QID PRN #8.5 gram 05/05/20 05/12/20 Unknown Rx [ProAir HFA Inhaler] ALPRAZolam [Xanax TAB] 0.5 mg PO BID #16 tablet 05/13/20 Unknown Rx Albuterol Mdi (or & Nicu Only) 2 puff IH QID PRN #8.5 gram 05/13/20 Unknown Rx [ProAir HFA Inhaler] Calcium Carbonate [Calcium 400 mg PO QDAY 30 Days #30 tab.chew 05/13/20 Unknown Rx Carbonate 400MG CHEW] Ferrous Sulfate [Feosol 325 MG tab] 325 mg PO QDAY 60 Days #60 tablet 05/13/20 Unknown Rx Montelukast (Nf) [Singulair] 10 mg PO QPM #30 tab.chew 05/13/20 Unknown Rx Pantoprazole [Protonix TAB] 40 mg PO QDAY 30 Days #30 tablet 05/13/20 Unknown Rx methylPREDNISolone [Medrol 4MG 4 mg PO QDAY #1 tab.ds.pk 05/13/20 Unknown Rx DOSEPAK (21 tabs)] Aspirin EC [Halfprin EC] 81 mg PO QDAY #100 tablet. 05/15/20 Unknown Rx AtorvaSTATin [Lipitor] 40 mg PO QHS #30 tablet 05/15/20 Unknown Rx dilTIAZem CD [Cardizem CD] 240 mg PO QDAY #30 capsule 05/15/20 Unknown Rx Ipratropium/Albuterol Sulfate 1 ampul IH TIDRT #50 ampul.neb 05/16/20 Unknown Rx [DUONEB *Not for PRN Use*] ED Physical Exam - General Limitations: No Limitations General appearance: alert, in no apparent distress - Head Head exam: Present: atraumatic, normocephalic - Eye Eye exam: Present: normal appearance, EOMI - ENT ENT exam: Present: mucous membranes moist - Neck Neck exam: Present: normal inspection - Respiratory Respiratory exam: Present: normal lung sounds bilaterally, prolonged expiratory. Absent: respiratory distress, wheezes - Cardiovascular Cardiovascular Exam: Present: regular rate, normal rhythm - GI/Abdominal GI/Abdominal exam: Present: soft. Absent: distended, tenderness - Extremities Exam Extremities exam: Present: normal inspection - Neurological Exam Neurological exam: Present: alert, oriented X3 - Psychiatric Psychiatric exam: Present: normal affect, normal mood - Skin Skin exam: Present: warm, dry, intact, normal color ED Course Vital Signs 05/16/20 05/16/20 05/16/20 04:04 04:16 04:31 Pulse Rate 111 H 107 H 103 H Respiratory 24 20 20 Rate Blood Pressure 166/92 166/92 O2 Sat by Pulse 100 100 Oximetry 05/16/20 05/16/20 05/16/20 04:45 05:01 05:15 Pulse Rate 108 H 108 H Respiratory 27 H 24 Rate Blood Pressure 166/92 166/92 174/86 O2 Sat by Pulse 100 100 100 Oximetry 05/16/20 05/16/20 05/16/20 05:31 05:45 06:01 Pulse Rate Respiratory Rate Blood Pressure 174/86 108/85 108/85 O2 Sat by Pulse 100 100 100 Oximetry 05/16/20 05/16/20 05/16/20 06:15 06:30 06:45 Pulse Rate Respiratory Rate Blood Pressure 108/85 125/58 O2 Sat by Pulse 100 99 Oximetry 05/16/20 05/16/20 05/16/20 07:01 07:15 07:31 Pulse Rate Respiratory Rate Blood Pressure 125/51 137/96 139/86 O2 Sat by Pulse 93 100 100 Oximetry 05/16/20 07:41 Pulse Rate 54 L Respiratory Rate Blood Pressure O2 Sat by Pulse Oximetry ED Medical Decision Making - Lab Data Result diagrams: 05/16/20 04:27 05/16/20 04:27 - Radiology Data Radiology results: report reviewed, image reviewed - Medical Decision Making 64-year-old male presents to ED with COPD exacerbation. Patient has been given albuterol/Atrovent nebulizer treatments. Chest x-ray is unremarkable. He is feeling much better at this time. Will discharge home. Outpatient follow-up advised, return precautions given. - Differential Diagnosis COPD, pneumonia Critical care attestation.: If time is entered above; I have spent that time in minutes in the direct care of this critically ill patient, excluding procedure time. ED Disposition Clinical Impression: COPD exacerbation Disposition: - TO HOME OR SELFCARE Is pt being admited?: No Condition: Stable Instructions: Chronic Obstructive Pulmonary Disease, [id number], Chronic Obstructive Pulmonary Disease (ED) Prescriptions: Ipratropium/Albuterol Sulfate [DUONEB *Not for PRN Use*] 1 ampul IH TIDRT #50 ampul.neb Referrals: PRIMARY CARE, [Primary Care Provider] - 3-5 Days [facility] [Provider Group] - 3-5 Days Time of Disposition: 07:06
[2020-05-16 07:41] VITALS: BP 139/86
== END 2020-05-16 07:42 | disposition home or self-care (01) ==
LOC: ED 03:51
DX: J44.1 Chronic obstructive pulmonary disease with (acute) exacerbation (principal); I10 Essential (primary) hypertension; E78.00 Pure hypercholesterolemia, unspecified; F17.200 Nicotine dependence, unspecified, uncomplicated; F14.90 Cocaine use, unspecified, uncomplicated; Z79.899 Other long term (current) drug therapy; Z21 Asymptomatic human immunodeficiency virus [HIV] infection status
CPT/HCPCS: 36415; 71045; 80053; 80320; 82550; 83735; 85027; 85610; 93005; 94640; G0480

== ENCOUNTER 2020-05-17 22:34 | Observation (INO) | payer MEDICARE ==
[2020-05-17] MEDS ORDERED: ASPIRIN 325 MG TAB PO ONE (22:52)
[2020-05-17] MEDS ORDERED: ACETAMINOPHEN 325 MG TAB ONE (22:55)
[2020-05-17] MEDS ORDERED: ACETAMINOPHEN 325 MG TAB PO ONE (22:58)
--- NOTE | 2020-05-17 23:36 | XRay Report ---
CHEST 2 VIEWS INDICATION / CLINICAL INFORMATION: SOB. COMPARISON: 05/16/2020 FINDINGS: SUPPORT DEVICES: None. HEART / MEDIASTINUM: No significant abnormality. LUNGS / PLEURA: No significant pulmonary or pleural abnormality. No pneumothorax. ADDITIONAL FINDINGS: No significant additional findings. IMPRESSION: 1. No acute findings. Signer Name: Narendra Torres MD Signed: 05/17/2020 11:32 PM Workstation Name: [id number]
[2020-05-17 23:50] LABS: Alanine Aminotransferase 34 units/L (7-56); Albumin 3.5 g/dL (3.9-5); BUN/Creatinine Ratio 14; Blood Urea Nitrogen 15 mg/dL (9-20); Calcium 6.9 mg/dL (8.4-10.2); Hemolysis Index 4
[2020-05-17 23:59] LABS: Hematocrit 25.9 % (35.5-45.6); Hemoglobin 7.9 gm/dl (11.8-15.2); Mean Corpuscular HGB Conc 30 % (32-34); Mean Corpuscular Volume 78 fl (84-94); Platelet Count 344 K/mm3 (140-440); Red Blood Count 3.31 M/mm3 (3.65-5.03)
[2020-05-18 01:58] LABS: Anisocytosis 2+; Band Neutrophils # (Manual) 0.1 K/mm3; Hypochromasia 1+; Ovalocytes 1+; Platelet Estimate Consistent w Auto; Poikilocytosis 1+; Total Cells Counted 100
[2020-05-18] MEDS ORDERED: methylPREDNISolone Sod Succinate 125 MG/2 ML INJ IV ONE (02:15)
[2020-05-18] MEDS ORDERED: IPRATROPIUM/ALBUTEROL SULFATE 3 ML AMPUL.NEB IH ONE (02:15)
--- NOTE | 2020-05-18 02:16 | Emergency Department Report ---
ED Shortness of Breath HPI - General Chief Complaint: Dyspnea/Respdistress Stated Complaint: DIFF BREATHING Time Seen by Provider: 05/18/20 02:08 Source: patient, EMS Mode of arrival: Wheelchair Limitations: No Limitations - History of Present Illness Initial Comments: Patient is a 64-year-old male that presents to the emergency room with complaints of chest pain or shortness of breath. Patient has a history of COPD. Patient has frequent ER visits. Patient's charts were reviewed. Patient is on 2 L of home O2. Patient brought in by EMS. Patient states he was given magnesium in route by EMS. Patient states the magnesium helped. Patient states that his shortness of breath is better with rest. Patient states his shortness of breath is worse with exertion. Patient states his chest pain is better with rest. Patient states his chest pain is worse with palpation and deep breaths. Patient states he is still using cocaine. Patient denies recent travel. Patient denies recent international travel. Patient denies exposure to the novel coronavirus. Patient denies sick contacts. Patient denies fever and chills. Patient denies cough. Patient denies diarrhea. Patient denies coming in contact with anybody with symptoms of the novel coronavirus. Patient in triage found to have a 70% room air and was placed on his home oxygen of 2 L and he is 99%. MD Complaint: shortness of breath -: Sudden Severity: severe Consistency: constant, other (Improving) Improves With: rest Worsens With: exertion Known History Of: COPD Treatments Prior to Arrival: other (Magnesium) - Related Data Home Oxygen Therapy: Yes Home Oxygen Amount: 2 Liters Previous Rx's Medication Instructions Recorded Last Taken Type Albuterol Mdi (or & Nicu Only) 2 puff IH QID PRN #1 inhalation 04/11/20 Unknown Rx [ProAir HFA Inhaler] AtorvaSTATin [Lipitor] 40 mg PO QHS tablet 04/11/20 Unknown Rx Montelukast [Singulair] 10 mg PO QHS tablet 04/11/20 Unknown Rx methylPREDNISolone [Medrol 4MG 4 mg PO QAM #1 tab.ds.pk 04/11/20 Unknown Rx DOSEPAK (21 tabs)] oxyCODONE /ACETAMINOPHEN [Percocet 1 tab PO Q6H PRN #8 tablet 04/11/20 Unknown Rx 5/325 mg] Albuterol Sulfate [Proair 90 mcg IH Q4HR PRN #2 aer.pow.ba 04/27/20 Unknown Rx Respiclick] Docusate Sodium [Colace] 100 mg PO BID PRN #60 capsule 04/27/20 Unknown Rx Albuterol Mdi (or & Nicu Only) 2 puff IH QID PRN #8.5 gram 05/05/20 Unknown Rx [ProAir HFA Inhaler] ALPRAZolam [Xanax TAB] 0.5 mg PO BID #16 tablet 05/13/20 Unknown Rx Albuterol Mdi (or & Nicu Only) 2 puff IH QID PRN #8.5 gram 05/13/20 Unknown Rx [ProAir HFA Inhaler] Calcium Carbonate [Calcium 400 mg PO QDAY 30 Days #30 tab.chew 05/13/20 Unknown Rx Carbonate 400MG CHEW] Ferrous Sulfate [Feosol 325 MG tab] 325 mg PO QDAY 60 Days #60 tablet 05/13/20 Unknown Rx Montelukast (Nf) [Singulair] 10 mg PO QPM #30 tab.chew 05/13/20 Unknown Rx Pantoprazole [Protonix TAB] 40 mg PO QDAY 30 Days #30 tablet 05/13/20 Unknown Rx methylPREDNISolone [Medrol 4MG 4 mg PO QDAY #1 tab.ds.pk 05/13/20 Unknown Rx DOSEPAK (21 tabs)] Aspirin EC [Halfprin EC] 81 mg PO QDAY #100 tablet. 05/15/20 Unknown Rx AtorvaSTATin [Lipitor] 40 mg PO QHS #30 tablet 05/15/20 Unknown Rx dilTIAZem CD [Cardizem CD] 240 mg PO QDAY #30 capsule 05/15/20 Unknown Rx Ipratropium/Albuterol Sulfate 1 ampul IH TIDRT #50 ampul.neb 05/16/20 Unknown Rx [DUONEB *Not for PRN Use*] Allergies Allergy/AdvReac Type Severity Reaction Status Date / Time No Known Allergies Allergy Verified 05/15/20 09:18 ED Review of Systems ROS: Stated complaint: DIFF BREATHING Other details as noted in HPI Constitutional: denies: chills, fever Eyes: denies: eye pain, eye discharge, vision change ENT: denies: ear pain, throat pain Respiratory: see HPI, shortness of breath, SOB with exertion, SOB at rest. denies: cough, wheezing Cardiovascular: chest pain. denies: palpitations Endocrine: no symptoms reported Gastrointestinal: denies: abdominal pain, nausea, diarrhea Genitourinary: denies: urgency, dysuria Musculoskeletal: denies: back pain, joint swelling, arthralgia Skin: denies: rash, lesions Neurological: denies: headache, weakness, paresthesias Psychiatric: denies: anxiety, depression Hematological/Lymphatic: denies: easy bleeding, easy bruising ED Past Medical Hx - Past Medical History Previous Medical History?: Yes Hx Hypertension: Yes Hx Pulmonary Embolism: No Hx Asthma: Yes Hx COPD: Yes (Home O2) Hx HIV: Yes Additional medical history: Elevated Cholesterol & Chronic back pain. - Surgical History Past Surgical History?: No - Family History Family history: no significant - Social History Smoking Status: Current Some Day Smoker Substance Use Type: None - Medications Home Medications: Home Medications Medication Instructions Recorded Confirmed Last Taken Type Albuterol Mdi (or & Nicu Only) 2 puff IH QID PRN #1 inhalation 04/11/20 05/12/20 Unknown Rx [ProAir HFA Inhaler] AtorvaSTATin [Lipitor] 40 mg PO QHS tablet 04/11/20 05/12/20 Unknown Rx Montelukast [Singulair] 10 mg PO QHS tablet 04/11/20 05/12/20 Unknown Rx methylPREDNISolone [Medrol 4MG 4 mg PO QAM #1 tab.ds.pk 04/11/20 05/12/20 Unknown Rx DOSEPAK (21 tabs)] oxyCODONE /ACETAMINOPHEN [Percocet 1 tab PO Q6H PRN #8 tablet 04/11/20 05/12/20 Unknown Rx 5/325 mg] Albuterol Sulfate [Proair 90 mcg IH Q4HR PRN #2 aer.pow.ba 04/27/20 05/12/20 Unknown Rx Respiclick] Docusate Sodium [Colace] 100 mg PO BID PRN #60 capsule 04/27/20 05/12/20 Unknown Rx Albuterol Mdi (or & Nicu Only) 2 puff IH QID PRN #8.5 gram 05/05/20 05/12/20 Unknown Rx [ProAir HFA Inhaler] ALPRAZolam [Xanax TAB] 0.5 mg PO BID #16 tablet 05/13/20 Unknown Rx Albuterol Mdi (or & Nicu Only) 2 puff IH QID PRN #8.5 gram 05/13/20 Unknown Rx [ProAir HFA Inhaler] Calcium Carbonate [Calcium 400 mg PO QDAY 30 Days #30 tab.chew 05/13/20 Unknown Rx Carbonate 400MG CHEW] Ferrous Sulfate [Feosol 325 MG tab] 325 mg PO QDAY 60 Days #60 tablet 05/13/20 Unknown Rx Montelukast (Nf) [Singulair] 10 mg PO QPM #30 tab.chew 05/13/20 Unknown Rx Pantoprazole [Protonix TAB] 40 mg PO QDAY 30 Days #30 tablet 05/13/20 Unknown Rx methylPREDNISolone [Medrol 4MG 4 mg PO QDAY #1 tab.ds.pk 05/13/20 Unknown Rx DOSEPAK (21 tabs)] Aspirin EC [Halfprin EC] 81 mg PO QDAY #100 tablet.dr 05/15/20 Unknown Rx AtorvaSTATin [Lipitor] 40 mg PO QHS #30 tablet 05/15/20 Unknown Rx dilTIAZem CD [Cardizem CD] 240 mg PO QDAY #30 capsule 05/15/20 Unknown Rx Ipratropium/Albuterol Sulfate 1 ampul IH TIDRT #50 ampul.neb 05/16/20 Unknown Rx [DUONEB *Not for PRN Use*] ED Physical Exam - General Limitations: No Limitations General appearance: alert, in distress - Head Head exam: Present: atraumatic, normocephalic - Eye Eye exam: Present: normal appearance - ENT ENT exam: Present: mucous membranes moist - Neck Neck exam: Present: normal inspection - Respiratory Respiratory exam: Present: respiratory distress, wheezes, chest wall tenderness, decreased breath sounds. Absent: rales - Cardiovascular Cardiovascular Exam: Present: regular rate, normal rhythm. Absent: systolic murmur, diastolic murmur, rubs, gallop - GI/Abdominal GI/Abdominal exam: Present: soft, normal bowel sounds. Absent: distended, tenderness, guarding - Rectal Rectal exam: Present: deferred - Extremities Exam Extremities exam: Present: normal inspection - Back Exam Back exam: Present: normal inspection - Neurological Exam Neurological exam: Present: alert, oriented X3 - Psychiatric Psychiatric exam: Present: normal affect, normal mood - Skin Skin exam: Present: warm, dry, intact, normal color. Absent: rash ED Course Vital Signs 05/17/20 05/18/20 05/18/20 22:50 02:09 02:11 Temperature 100.9 F H 98.3 F Pulse Rate 117 H Pulse Rate [ Bilateral Upper Lobe] Respiratory 28 H 26 H Rate Respiratory Rate [Bilateral Upper Lobe] Blood Pressure 170/100 O2 Sat by Pulse 99 Oximetry 05/18/20 02:48 Temperature Pulse Rate Pulse Rate [ 99 H Bilateral Upper Lobe] Respiratory Rate Respiratory 24 Rate [Bilateral Upper Lobe] Blood Pressure O2 Sat by Pulse Oximetry - Reevaluation(s) Reevaluation #1: Patient has normal temperature now. Patient had a fever in triage and was given Tylenol. 05/18/20 02:30 Reevaluation #2: I discussed all results with patient. I discussed plan of care with patient. Patient agrees with plan of care and admission. Patient to be admitted to the hospitalist service. 05/18/20 03:03 - Consultations Consultation #1: Hospitalist consulted for admission. Hospitalist to admit patient. 05/18/20 03:03 ED Medical Decision Making - Lab Data Result diagrams: 05/17/20 23:09 05/18/20 03:00 - EKG Data -: EKG Interpreted by Me EKG shows normal: sinus rhythm, axis, intervals, QRS complexes, ST-T waves Rate: tachycardia - Radiology Data Radiology results: report reviewed, image reviewed interpreted by me: Chest x-ray: No pneumonia, no pneumothorax, no foreign body, no osseous findings, no acute findings CHEST 2 VIEWS INDICATION / CLINICAL INFORMATION: SOB. COMPARISON: 05/16/2020 FINDINGS: SUPPORT DEVICES: None. HEART / MEDIASTINUM: No significant abnormality. LUNGS / PLEURA: No significant pulmonary or pleural abnormality. No pneumothorax. ADDITIONAL FINDINGS: No significant additional findings. IMPRESSION: 1. No acute findings. - Medical Decision Making Patient is a 64-year-old male who presents emergency room for shortness of breath and chest pain. Patient found to be febrile and hypoxic in triage. Patient was then placed on his home O2 of 2 L and his oxygen improved. Patient has chronic respiratory failure is on home O2. Patient given Tylenol in triage and his fever improved. Patient had labs done which were essentially unremarkable except for anemia. Patient troponin was negative. Patient's chest x-ray was negative for acute findings. Patient's EKG was negative for acute findings and a normal ST but showed a sinus tach. I personally reviewed the EKG and a chest x-ray. Patient has high risk for ACS. [facility] and [facility]. Patient's Covid panel is ordered and the hospitalist will follow up on. Critical care time documented due to the multiple reassessments, prolonged time at the bedside, interpretation of diagnostics and labs. - Differential Diagnosis Fever, pneumonia, COPD exacerbation, shortness of breath, hypoxia, PUI Critical Care Time: Yes Critical care time in (mins) excluding proc time.: 35 Critical care attestation.: If time is entered above; I have spent that time in minutes in the direct care of this critically ill patient, excluding procedure time. Critical Care Time: 35 minutes ED Disposition Clinical Impression: COPD exacerbation, SOB (shortness of breath), Tobacco use, Chronic respiratory failure with hypoxia, on home O2 therapy, Hypoxia, Person under investigation for COVID-19 Anemia Qualifiers: Anemia type: unspecified type Qualified Code(s): D64.9 - Anemia, unspecified Chest pain Qualifiers: Chest pain type: unspecified Qualified Code(s): R07.9 - Chest pain, unspecified Fever Qualifiers: Fever type: unspecified Qualified Code(s): R50.9 - Fever, unspecified Disposition: 09 OP ADMIT IP TO THIS HOSP Is pt being admited?: Yes Does the pt Need Aspirin: No Condition: Critical Time of Disposition: 03:02 Heart Score - HEART Score History: Moderately suspicious EKG: Non-specific Age: > 65 Risk factors: 1-2 risk factors Troponin: < normal limit HEART Score: 5 GUIDO score - Guido Score Age > 65: (0) No Aspirin use within the Past 7 Days: (0) No 3 or more CAD Risk Factors: (1) Yes 2 or more Angina events in past 24 hrs: (0) No Known CAD with more than 50% Stenosis: (0) No Elevated Cardiac Markers: (0) No ST Deviation Greater than 0.5mm: (0) No GUIDO Score: 1
[2020-05-18] MEDS ORDERED: cefTRIAXone/NS 2 GM/100 ML 2 GM/100 ML BAG IV ONE (02:58)
[2020-05-18] MEDS ORDERED: AZITHROMYCIN/NS 500 MG/250 ML 500 MG/250 ML BAG IV ONE (02:58)
[2020-05-18] MEDS ORDERED: DOCUSATE SODIUM 100 MG CAP PO PRN (03:10)
[2020-05-18] MEDS ORDERED: ALBUTEROL 8.5 GM MDI INHALATION IH PRN (03:10)
[2020-05-18] MEDS ORDERED: NON-FORMULARY EACH (Albuterol Sulfate [Proair Respiclick] 90 MCG Aer.Pow.Ba) IH PRN (03:10)
[2020-05-18] MEDS ORDERED: NITROGLYCERIN 0.4 MG TAB SUBL SL PRN (03:12)
[2020-05-18] MEDS ORDERED: MORPHINE 2 MG/1 ML INJ IV PRN (03:12)
[2020-05-18] MEDS ORDERED: ACETAMINOPHEN 325 MG TAB PO PRN (03:12)
--- NOTE | 2020-05-18 03:20 | History and Physical Report ---
History of Present Illness Date of examination: 05/18/20 Date of admission: 05/18/20 Chief complaint: Respiratory distress, chest pain History of present illness: 64-year-old male with past medical history of cocaine abuse, COPD on home oxygen 2 L was brought to the emergency room with complaints of chest pain or shortness of breath since this morning patient has frequent ER visits. Patient brought in by EMS. Patient states he was given magnesium in route by EMS. Patient states the magnesium helped. Patient states that his shortness of breath is better with rest. Patient states his shortness of breath is worse with exertion. Patient states his chest pain is better with rest. Patient states his chest pain is worse with palpation and deep breaths. In the emergency room initial cardiac enzyme is negative troponin is 0.01 Past History Past Medical History: COPD Medications and Allergies Allergies Allergy/AdvReac Type Severity Reaction Status Date / Time No Known Allergies Allergy Verified 05/15/20 09:18 Home Medications Medication Instructions Recorded Confirmed Last Taken Type Albuterol Mdi (or & Nicu Only) 2 puff IH QID PRN #1 inhalation 04/11/20 05/12/20 Unknown Rx [ProAir HFA Inhaler] AtorvaSTATin [Lipitor] 40 mg PO QHS tablet 04/11/20 05/12/20 Unknown Rx Montelukast [Singulair] 10 mg PO QHS tablet 04/11/20 05/12/20 Unknown Rx methylPREDNISolone [Medrol 4MG 4 mg PO QAM #1 tab.ds.pk 04/11/20 05/12/20 Unknown Rx DOSEPAK (21 tabs)] oxyCODONE /ACETAMINOPHEN [Percocet 1 tab PO Q6H PRN #8 tablet 04/11/20 05/12/20 Unknown Rx 5/325 mg] Albuterol Sulfate [Proair 90 mcg IH Q4HR PRN #2 aer.pow.ba 04/27/20 05/12/20 Unknown Rx Respiclick] Docusate Sodium [Colace] 100 mg PO BID PRN #60 capsule 04/27/20 05/12/20 Unknown Rx Albuterol Mdi (or & Nicu Only) 2 puff IH QID PRN #8.5 gram 05/05/20 05/12/20 Unknown Rx [ProAir HFA Inhaler] ALPRAZolam [Xanax TAB] 0.5 mg PO BID #16 tablet 05/13/20 Unknown Rx Albuterol Mdi (or & Nicu Only) 2 puff IH QID PRN #8.5 gram 05/13/20 Unknown Rx [ProAir HFA Inhaler] Calcium Carbonate [Calcium 400 mg PO QDAY 30 Days #30 tab.chew 05/13/20 Unknown Rx Carbonate 400MG CHEW] Ferrous Sulfate [Feosol 325 MG tab] 325 mg PO QDAY 60 Days #60 tablet 05/13/20 Unknown Rx Montelukast (Nf) [Singulair] 10 mg PO QPM #30 tab.chew 05/13/20 Unknown Rx Pantoprazole [Protonix TAB] 40 mg PO QDAY 30 Days #30 tablet 05/13/20 Unknown Rx methylPREDNISolone [Medrol 4MG 4 mg PO QDAY #1 tab.ds.pk 05/13/20 Unknown Rx DOSEPAK (21 tabs)] Aspirin EC [Halfprin EC] 81 mg PO QDAY #100 tablet.dr 05/15/20 Unknown Rx AtorvaSTATin [Lipitor] 40 mg PO QHS #30 tablet 05/15/20 Unknown Rx dilTIAZem CD [Cardizem CD] 240 mg PO QDAY #30 capsule 05/15/20 Unknown Rx Ipratropium/Albuterol Sulfate 1 ampul IH TIDRT #50 ampul.neb 05/16/20 Unknown Rx [DUONEB *Not for PRN Use*] Active Meds: Active Medications Acetaminophen (Acetaminophen 325 Mg Tab) 650 mg PO Q6H PRN PRN Reason: Pain, Mild (1-3) Albuterol (Albuterol 8.5 Gm Mdi Inhalation) 2 puff IH QID PRN PRN Reason: Shortness Of Breath Albuterol/Ipratropium (Ipratropium/Albuterol Sulfate 3 Ml Ampul.Neb) 1 ampul IH TIDRT NADIA Alprazolam (Alprazolam 0.5 Mg Tab) 0.5 mg PO BID NADIA Aspirin (Aspirin Ec 81 Mg Tab) 81 mg PO QDAY NADIA Aspirin (Aspirin 81 Mg Tab Chew) 324 mg PO ONCE STA Stop: 05/18/20 03:13 Atorvastatin Calcium (Atorvastatin 40 Mg Tab) 40 mg PO QHS NADIA Atorvastatin Calcium (Atorvastatin 40 Mg Tab) 40 mg PO QHS NADIA Diltiazem HCl (Diltiazem Cd 240 Mg Cap) 240 mg PO QDAY NADIA Docusate Sodium (Docusate Sodium 100 Mg Cap) 100 mg PO BID PRN PRN Reason: Constip unreliev by MOM/or NPO Ferrous Sulfate (Ferrous Sulfate 325 Mg Tab) 325 mg PO QDAY [facility] Heparin Sodium (Porcine) (Heparin 5,000 Unit/1 Ml Vial) 5,000 unit SUB-Q Q8HR NADIA Azithromycin (Zithromax/Ns) 500 mg in 250 mls @ 250 mls/hr IV ONCE ONE; Pro tocol Stop: 05/18/20 03:57 Ceftriaxone Sodium (Rocephin/Ns 2 Gm/100 Ml) 2 gm in 100 mls @ 200 mls/hr IV ONCE ONE; Protocol Stop: 05/18/20 03:27 Methylprednisolone Sodium Succinate (Methylprednisolone Sod Succinate 40 Mg/1 Ml Inj) 60 mg IV Q8H NADIA Miscellaneous Medication (Albuterol Sulfate [Proair Respiclick]) 90 mcg IH Q4HR PRN PRN Reason: Wheezing Miscellaneous Medication (Calcium Carbonate [Calcium Carbonate 400mg Chew]) 400 mg PO QDAY NADIA Montelukast Sodium (Montelukast 10 Mg Tab) 10 mg PO QHS NADIA Morphine Sulfate (Morphine 4 Mg/1 Ml Inj) 2 mg IV Q5MIN PRN PRN Reason: Chest Pain Nitroglycerin (Nitroglycerin 0.4 Mg Tab Subl) 0.4 mg SL Q5M PRN PRN Reason: Chest Pain Pantoprazole Sodium (Pantoprazole 40 Mg Tab) 40 mg PO QDAY [facility] Sodium Chloride (Sodium Chloride 0.9% 10 Ml Flush Syringe) 10 ml IV PRN PRN PRN Reason: LINE FLUSH Tramadol HCl (Tramadol 50 Mg Tab) 50 mg PO Q6H PRN PRN Reason: Pain, Moderate (4-6) Review of Systems Cardiovascular: chest pain, shortness of breath Respiratory: shortness of breath, dyspnea on exertion, wheezing Exam - Constitutional Vitals: Temp Pulse Resp BP Pulse Ox 98.3 F 99 H 24 170/100 99 05/18/20 02:09 05/18/20 02:48 05/18/20 02:48 05/17/20 22:50 05/17/20 22:50 General appearance: Present: no acute distress, well-nourished - EENT Eyes: Present: PERRL ENT: hearing intact, clear oral mucosa - Neck Neck: Present: supple, normal ROM - Respiratory Respiratory effort: labored Respiratory: bilateral: CTA - Cardiovascular Rhythm: regular Heart Sounds: Present: S1 & S2. Absent: rub, click - Extremities Extremities: pulses symmetrical, No edema Peripheral Pulses: within normal limits - Abdominal General gastrointestinal: Present: soft, non-tender, non-distended, normal bowel sounds Male genitourinary: Present: normal - Integumentary Integumentary: Present: clear, warm, dry - Musculoskeletal Musculoskeletal: gait normal, strength equal bilaterally - Psychiatric Psychiatric: appropriate mood/affect, intact judgment & insight - Neurologic Neurologic: CNII-XII intact, moves all extremities HEART Score - HEART Score EKG: Non-specific Age: > 65 Risk factors: 1-2 risk factors Troponin: Troponin T 0.011 ng/mL (0.00-0.029) 05/17/20 23:09 Troponin: < normal limit Results - Labs CBC & Chem 7: 05/17/20 23:09 05/17/20 23:09 Labs: Laboratory Last Values WBC 10.2 K/mm3 (4.5-11.0) 05/17/20 23:09 RBC 3.31 M/mm3 (3.65-5.03) L 05/17/20 23:09 Hgb 7.9 gm/dl (11.8-15.2) L 05/17/20 23:09 Hct 25.9 % (35.5-45.6) L 05/17/20 23:09 MCV 78 fl (84-94) L 05/17/20 23:09 MCH 24 pg (28-32) L 05/17/20 23:09 MCHC 30 % (32-34) L 05/17/20 23:09 RDW 26.0 % (13.2-15.2) H 05/17/20 23:09 Plt Count 344 K/mm3 (140-440) 05/17/20 23:09 Add Manual Diff Complete 05/17/20 23:09 Total Counted 100 05/17/20 23:09 Seg Neuts % (Manual) 89.0 % (40.0-70.0) H 05/17/20 23:09 Band Neutrophils % 1.0 % 05/17/20 23:09 Lymphocytes % (Manual) 5.0 % (13.4-35.0) L 05/17/20 23:09 Monocytes % (Manual) 4.0 % (0.0-7.3) 05/17/20 23:09 Eosinophils % (Manual) 1.0 % (0.0-4.3) 05/17/20 23:09 Nucleated RBC % Not Reportable 05/17/20 23:09 Seg Neutrophils # Man 9.1 K/mm3 (1.8-7.7) H 05/17/20 23:09 Band Neutrophils # 0.1 K/mm3 05/17/20 23:09 Lymphocytes # (Manual) 0.5 K/mm3 (1.2-5.4) L 05/17/20 23:09 Abs React Lymphs (Man) 0.0 K/mm3 05/17/20 23:09 Monocytes # (Manual) 0.4 K/mm3 (0.0-0.8) 05/17/20 23:09 Eosinophils # (Manual) 0.1 K/mm3 (0.0-0.4) 05/17/20 23:09 Basophils # (Manual) 0.0 K/mm3 (0.0-0.1) 05/17/20 23:09 Metamyelocytes # 0.0 K/mm3 05/17/20 23:09 Myelocytes # 0.0 K/mm3 05/17/20 23:09 Promyelocytes # 0.0 K/mm3 05/17/20 23:09 Blast Cells # 0.0 K/mm3 05/17/20 23:09 WBC Morphology Not Reportable 05/17/20 23:09 Hypersegmented Neuts Not Reportable 05/17/20 23:09 Hyposegmented Neuts Not Reportable 05/17/20 23:09 Hypogranular Neuts Not Reportable 05/17/20 23:09 Smudge Cells Not Reportable 05/17/20 23:09 Toxic Granulation Not Reportable 05/17/20 23:09 Toxic Vacuolation Not Reportable 05/17/20 23:09 Dohle Bodies Not Reportable 05/17/20 23:09 Pelger-Huet Anomaly Not Reportable 05/17/20 23:09 Ruma Rods Not Reportable 05/17/20 23:09 Platelet Estimate Consistent w auto 05/17/20 23:09 Clumped Platelets Not Reportable 05/17/20 23:09 Plt Clumps, EDTA Not Reportable 05/17/20 23:09 Large Platelets Not Reportable 05/17/20 23:09 Giant Platelets Not Reportable 05/17/20 23:09 Platelet Satelliting Not Reportable 05/17/20 23:09 Plt Morphology Comment Not Reportable 05/17/20 23:09 RBC Morphology Not Reportable 05/17/20 23:09 Dimorphic RBCs Not Reportable 05/17/20 23:09 Polychromasia Not Reportable 05/17/20 23:09 Hypochromasia 1+ 05/17/20 23:09 Poikilocytosis 1+ 05/17/20 23:09 Anisocytosis 2+ 05/17/20 23:09 Microcytosis Not Reportable 05/17/20 23:09 Macrocytosis Not Reportable 05/17/20 23:09 Spherocytes Not Reportable 05/17/20 23:09 Pappenheimer Bodies Not Reportable 05/17/20 23:09 Sickle Cells Not Reportable 05/17/20 23:09 Target Cells Not Reportable 05/17/20 23:09 Tear Drop Cells Not Reportable 05/17/20 23:09 Ovalocytes 1+ 05/17/20 23:09 Helmet Cells Not Reportable 05/17/20 23:09 David-Andale Bodies Not Reportable 05/17/20 23:09 Codorus Rings Not Reportable 05/17/20 23:09 Don Cells Not Reportable 05/17/20 23:09 Bite Cells Not Reportable 05/17/20 23:09 Crenated Cell Not Reportable 05/17/20 23:09 Elliptocytes Few 05/17/20 23:09 Acanthocytes (Spur) Not Reportable 05/17/20 23:09 Rouleaux Not Reportable 05/17/20 23:09 Hemoglobin C Crystals Not Reportable 05/17/20 23:09 Schistocytes Not Reportable 05/17/20 23:09 Malaria parasites Not Reportable 05/17/20 23:09 Rci Bodies Not Reportable 05/17/20 23:09 Hem Pathologist Commnt No 05/17/20 23:09 Sodium 142 mmol/L (137-145) 05/17/20 23:09 Potassium 3.8 mmol/L (3.6-5.0) 05/17/20 23:09 Chloride 99.5 mmol/L (98-107) 05/17/20 23:09 Carbon Dioxide 30 mmol/L (22-30) 05/17/20 23:09 Anion Gap 16 mmol/L 05/17/20 23:09 BUN 15 mg/dL (9-20) 05/17/20 23:09 Creatinine 1.1 mg/dL (0.8-1.3) 05/17/20 23:09 Estimated GFR > 60 ml/min 05/17/20 23:09 BUN/Creatinine Ratio 14 % 05/17/20 23:09 Glucose 112 mg/dL (75-100) H 05/17/20 23:09 Calcium 6.9 mg/dL (8.4-10.2) L 05/17/20 23:09 Total Bilirubin 0.40 mg/dL (0.1-1.2) 05/17/20 23:09 AST 28 units/L (5-40) 05/17/20 23:09 ALT 34 units/L (7-56) 05/17/20 23:09 Alkaline Phosphatase 126 units/L (35-129) 05/17/20 23:09 Troponin T 0.011 ng/mL (0.00-0.029) 05/17/20 23:09 Total Protein 6.5 g/dL (6.3-8.2) 05/17/20 23:09 Albumin 3.5 g/dL (3.9-5) L 05/17/20 23:09 Albumin/Globulin Ratio 1.2 % 05/17/20 23:09 - Imaging and Cardiology Chest x-ray: image reviewed Assessment and Plan VTE prophylaxis?: Chemical Plan of care discussed with patient/family: Yes - Patient Problems (1) COPD exacerbation Current Visit: Yes Status: Acute Plan to address problem: Admit the patient to the medical floor. Put the patient on oxygen by nasal cannula 3 L/min. DuoNeb by nebulizer every 4 hours as needed. Solu-Medrol 60 mg IV every 8 hours. Singular 10 mg p.o. daily. We will continue the home medication. (2) Chest pain Current Visit: Yes Status: Acute Qualifiers: Chest pain type: unspecified Qualified Code(s): R07.9 - Chest pain, unspecified Plan to address problem: Aspirin 81 mg p.o. daily. Lipitor 40 mg p.o. daily. We will do the serial cardiac enzyme. We also do a Lexiscan. Will consult cardiology if needed. Heparin 5000 units subcu every 8 hours (3) Chronic respiratory failure with hypoxia, on home O2 therapy Current Visit: Yes Status: Acute Plan to address problem: Put the patient on oxygen by nasal cannula 3 L/min. DuoNeb by nebulizer every 4 hours as needed. Solu-Medrol 60 mg IV every 8 hours. Singular 10 mg p.o. daily. We will continue the home medication. (4) DVT prophylaxis Current Visit: No Status: Acute Plan to address problem: Heparin 5000 units subcu every 8 hours for DVT prophylaxis. Protonix 40 mg p.o. daily for GI prophylaxis. Patient is a full code (5) Cocaine use Current Visit: No Status: Chronic Plan to address problem: Patient counseled regarding quit taking drugs.
[2020-05-18 03:26] LABS: C-Reactive Protein 5.9 mg/dL (0.00-1.30)
[2020-05-18] MEDS ORDERED: ASPIRIN 81 MG TAB CHEW PO ONE (04:00)
[2020-05-18] MEDS: methylPREDNISolone Sod Succinate 40 MG/1 ML INJ IV SCH ×3 (07:45→21:53)
[2020-05-18] MEDS: HEPARIN 5,000 UNIT/1 ML VIAL SUB-Q SCH ×2 (07:46→13:27)
[2020-05-18 08:08] LABS: Hematocrit 22.6 % (35.5-45.6); Hemoglobin 6.9 gm/dl (11.8-15.2); Mean Corpuscular HGB Conc 31 % (32-34); Mean Corpuscular Volume 78 fl (84-94); Platelet Count 280 K/mm3 (140-440); Red Blood Count 2.88 M/mm3 (3.65-5.03)
[2020-05-18 08:15] LABS: Red Cell Distribution Width 25.8 % (13.2-15.2)
[2020-05-18 08:26] LABS: Amphetamine Screen,Urine Negative; Benzodiazepines Screen,Urine Negative; Cannabinoid Screen,Urine Negative; Methadone Screen,Urine Negative; Opiate Screen,Urine Negative
[2020-05-18 08:27] LABS: BUN/Creatinine Ratio 15; Blood Urea Nitrogen 16 mg/dL (9-20); Calcium 6.8 mg/dL (8.4-10.2); Hemolysis Index 0
[2020-05-18] MEDS: IPRATROPIUM/ALBUTEROL SULFATE 3 ML AMPUL.NEB IH SCH ×3 (09:02→19:32)
[2020-05-18 09:13] LABS: Cocaine Screen,Urine PRESUMPTIVE POSITIVE
[2020-05-18] MEDS: dilTIAZem CD 240 MG CAP PO SCH (10:34)
[2020-05-18] MEDS: CALCIUM CARBONATE 500 MG TAB CHEW PO SCH (10:35)
[2020-05-18] MEDS: ALPRAZolam 0.5 MG TAB PO SCH ×2 (10:35→21:53)
[2020-05-18] MEDS: FERROUS SULFATE 325 MG TAB PO SCH (10:35)
[2020-05-18] MEDS: PANTOPRAZOLE 40 MG TAB PO SCH (10:35)
[2020-05-18] MEDS: ASPIRIN EC 81 MG TAB PO SCH (10:35)
[2020-05-18] MEDS ORDERED: SODIUM CHLORIDE 0.9% 500 ML 500 ML IV NR (10:46)
[2020-05-18] MEDS: MORPHINE 2 MG/1 ML INJ IV PRN ×2 (11:05→16:23)
--- NOTE | 2020-05-18 11:48 | Event Note ---
Date: 05/18/20 This is the second visit following midnight Patient seen and examined Hemoglobin slightly dropped today to 6.9 Ordered for 1 unit of packed RBC and stool for occult blood Stress test got canceled because of anemia Consult cardiology for further evaluation and management Continue current management and plan If stool for occult blood is positive will consult GI Continue to follow
--- NOTE | 2020-05-18 11:49 | Consultation ---
History of Present Illness Consult date: 05/18/20 Requesting physician: SUE LEON Consult reason: chest pain History of present illness: The pt is a 64-year-old male with a past medical history of transient atrial fibrillation (no systemic AC in the past secondary to brief duration of AFib, anemia and medical noncompliance), nonobstructive CAD, HTN, HIV with unknown CD4 count, COPD, tobacco use, chronic cocaine use, PE in the past. He has been seen by our practice on multiple prior hospitalizations. He presented with c/o recurrent chest pain and SOB. Patient brought in by EMS. Patient states he was given magnesium in route by EMS. Patient states the magnesium helped. Patient states that his shortness of breath is better with rest. Patient states his shortness of breath is worse with exertion. Patient states his chest pain is better with rest. Patient states his chest pain is worse with palpation and deep breaths. He admits to ongoing crack cocaine use. Pt last seen here at [facility] on 05/13/2020 with similar presentation, no additional cardiac w/u was recommended at that time, discharged home. LHC done 09/15/2019 showed mild nonobstructive CAD (25% mid RCA), EF 55-60%. Stress MPI done 08/24/2019 was negative. tte done 03/2020 showed EF 60-65%, no significant abnormalities. Past History Past Medical History: COPD, other (as per HPI) Medications and Allergies Allergies Allergy/AdvReac Type Severity Reaction Status Date / Time No Known Allergies Allergy Verified 05/15/20 09:18 Home Medications Medication Instructions Recorded Confirmed Last Taken Type Albuterol Mdi (or & Nicu Only) 2 puff IH QID PRN #1 inhalation 04/11/20 05/12/20 Unknown Rx [ProAir HFA Inhaler] AtorvaSTATin [Lipitor] 40 mg PO QHS tablet 04/11/20 05/12/20 Unknown Rx Montelukast [Singulair] 10 mg PO QHS tablet 04/11/20 05/12/20 Unknown Rx methylPREDNISolone [Medrol 4MG 4 mg PO QAM #1 tab.ds.pk 04/11/20 05/12/20 Unknown Rx DOSEPAK (21 tabs)] oxyCODONE /ACETAMINOPHEN [Percocet 1 tab PO Q6H PRN #8 tablet 04/11/20 05/12/20 Unknown Rx 5/325 mg] Albuterol Sulfate [Proair 90 mcg IH Q4HR PRN #2 aer.pow.ba 04/27/20 05/12/20 Unknown Rx Respiclick] Docusate Sodium [Colace] 100 mg PO BID PRN #60 capsule 04/27/20 05/12/20 Unknown Rx Albuterol Mdi (or & Nicu Only) 2 puff IH QID PRN #8.5 gram 05/05/20 05/12/20 Unknown Rx [ProAir HFA Inhaler] ALPRAZolam [Xanax TAB] 0.5 mg PO BID #16 tablet 05/13/20 Unknown Rx Albuterol Mdi (or & Nicu Only) 2 puff IH QID PRN #8.5 gram 05/13/20 Unknown Rx [ProAir HFA Inhaler] Calcium Carbonate [Calcium 400 mg PO QDAY 30 Days #30 tab.chew 05/13/20 Unknown Rx Carbonate 400MG CHEW] Ferrous Sulfate [Feosol 325 MG tab] 325 mg PO QDAY 60 Days #60 tablet 05/13/20 Unknown Rx Montelukast (Nf) [Singulair] 10 mg PO QPM #30 tab.chew 05/13/20 Unknown Rx Pantoprazole [Protonix TAB] 40 mg PO QDAY 30 Days #30 tablet 05/13/20 Unknown Rx methylPREDNISolone [Medrol 4MG 4 mg PO QDAY #1 tab.ds.pk 05/13/20 Unknown Rx DOSEPAK (21 tabs)] Aspirin EC [Halfprin EC] 81 mg PO QDAY #100 tablet. 05/15/20 Unknown Rx AtorvaSTATin [Lipitor] 40 mg PO QHS #30 tablet 05/15/20 Unknown Rx dilTIAZem CD [Cardizem CD] 240 mg PO QDAY #30 capsule 05/15/20 Unknown Rx Ipratropium/Albuterol Sulfate 1 ampul IH TIDRT #50 ampul.neb 05/16/20 Unknown Rx [DUONEB *Not for PRN Use*] Active Meds: Active Medications Acetaminophen (Acetaminophen 325 Mg Tab) 650 mg PO Q6H PRN PRN Reason: Pain, Mild (1-3) Albuterol (Albuterol 8.5 Gm Mdi Inhalation) 2 puff IH QID PRN PRN Reason: Shortness Of Breath Albuterol/Ipratropium (Ipratropium/Albuterol Sulfate 3 Ml Ampul.Neb) 1 ampul IH TIDRT REPLACED BY [facility] Last Admin: 05/18/20 09:02 Dose: 1 ampul Documented by: Alprazolam (Alprazolam 0.5 Mg Tab) 0.5 mg PO BID REPLACED BY [facility] Last Admin: 05/18/20 10:35 Dose: 0.5 mg Documented by: Aspirin (Aspirin Ec 81 Mg Tab) 81 mg PO QDAY REPLACED BY [facility] Last Admin: 05/18/20 10:35 Dose: 81 mg Documented by: Atorvastatin Calcium (Atorvastatin 40 Mg Tab) 40 mg PO QHS REPLACED BY [facility] Calcium Carbonate/Glycine (Calcium Carbonate 500 Mg Tab Chew) 500 mg PO QDAY REPLACED BY [facility] Last Admin: 05/18/20 10:35 Dose: 500 mg Documented by: Diltiazem HCl (Diltiazem Cd 240 Mg Cap) 240 mg PO QDAY REPLACED BY [facility] Last Admin: 05/18/20 10:34 Dose: 240 mg Documented by: Docusate Sodium (Docusate Sodium 100 Mg Cap) 100 mg PO BID PRN PRN Reason: Constip unreliev by MOM/or NPO Ferrous Sulfate (Ferrous Sulfate 325 Mg Tab) 325 mg PO QDAY REPLACED BY [facility] Last Admin: 05/18/20 10:35 Dose: 325 mg Documented by: Heparin Sodium (Porcine) (Heparin 5,000 Unit/1 Ml Vial) 5,000 unit SUB-Q Q8HR REPLACED BY [facility] Last Admin: 05/18/20 07:46 Dose: 5,000 unit Documented by: Sodium Chloride (Nacl 0.9% 500 Ml) 500 mls @ 0 mls/hr IV ONCE NR Stop: 05/19/20 10:45 Methylprednisolone Sodium Succinate (Methylprednisolone Sod Succinate 40 Mg/1 Ml Inj) 60 mg IV Q8HR REPLACED BY [facility] Last Admin: 05/18/20 07:45 Dose: 60 mg Documented by: Montelukast Sodium (Montelukast 10 Mg Tab) 10 mg PO QHS REPLACED BY [facility] Morphine Sulfate (Morphine 2 Mg/1 Ml Inj) 1 mg IV Q5MIN PRN PRN Reason: Chest Pain Last Admin: 05/18/20 11:05 Dose: 1 mg Documented by: Nitroglycerin (Nitroglycerin 0.4 Mg Tab Subl) 0.4 mg SL Q5M PRN PRN Reason: Chest Pain Pantoprazole Sodium (Pantoprazole 40 Mg Tab) 40 mg PO QDAY NADIA Last Admin: 05/18/20 10:35 Dose: 40 mg Documented by: Sodium Chloride (Sodium Chloride 0.9% 10 Ml Flush Syringe) 10 ml IV PRN PRN PRN Reason: LINE FLUSH Tramadol HCl (Tramadol 50 Mg Tab) 50 mg PO Q6H PRN PRN Reason: Pain, Moderate (4-6) Review of Systems Constitutional: no weight loss, no weight gain, no fever, no chills, no sweats Ears, nose, mouth and throat: no ear pain, no nose pain, no sinus pressure, no sinus pain Cardiovascular: chest pain, shortness of breath, dyspnea on exertion, no orthopnea, no palpitations, no rapid/irregular heart beat, no edema, no syncope, no lightheadedness Respiratory: shortness of breath, dyspnea on exertion, pain on inspiration, no cough, no congestion, no wheezing Gastrointestinal: no abdominal pain, no nausea, no vomiting, no diarrhea, no constipation, no change in bowel habits Genitourinary Male: no dysuria, no hematuria, no flank pain, no discharge, no urinary frequency, no urinary hesitancy Musculoskeletal: no neck stiffness, no neck pain, no shooting arm pain, no arm numbness/tingling, no low back pain, no shooting leg pain Integumentary: no rash, no pruritis, no redness, no sores, no wounds Neurological: no head injury, no paralysis, no weakness, no parathesias, no numbness, no tingling, no seizures, no syncope Psychiatric: no anxiety Endocrine: no cold intolerance, no heat intolerance Hematologic/Lymphatic: no easy bruising Allergic/Immunologic: no urticaria Physical Examination Vital Signs Temp Pulse Resp BP Pulse Ox 100.9 F H 117 H 28 H 170/100 99 05/17/20 22:50 05/17/20 22:50 05/17/20 22:50 05/17/20 22:50 05/17/20 22:50 General appearance: no acute distress HEENT: Positive: PERRL, Normocephaly, Mucus Membranes Moist Neck: Positive: neck supple, trachea midline Cardiac: Positive: Reg Rate and Rhythm, S1/S2 Lungs: Positive: Decreased Breath Sounds Neuro: Positive: Grossly Intact Abdomen: Negative: Tender Skin: Negative: Rash Musculoskeletal: No Pain Extremities: Absent: edema Results 05/18/20 07:22 05/18/20 07:22 Cardiac Enzymes 05/17/20 05/18/20 Range/Units 23:09 03:00 AST 28 (5-40) units/L Lactate Dehydrogenase 282 H (91-180) units/L CBC 05/17/20 05/18/20 Range/Units 23:09 07:22 WBC 10.2 5.6 (4.5-11.0) K/mm3 RBC 3.31 L 2.88 L (3.65-5.03) M/mm3 Hgb 7.9 L 6.9 L (11.8-15.2) gm/dl Hct 25.9 L 22.6 L (35.5-45.6) % Plt Count 344 280 (140-440) K/mm3 Comprehensive Metabolic Panel 05/17/20 05/18/20 05/18/20 Range/Units 23:09 03:00 07:22 Sodium 142 140 (137-145) mmol/L Potassium 3.8 4.2 (3.6-5.0) mmol/L Chloride 99.5 97.0 L (98-107) mmol/L Carbon Dioxide 30 36 H (22-30) mmol/L BUN 15 16 (9-20) mg/dL Creatinine 1.1 1.1 (0.8-1.3) mg/dL Glucose 112 H 115 H 225 H (75-100) mg/dL Calcium 6.9 L 6.8 L (8.4-10.2) mg/dL AST 28 (5-40) units/L ALT 34 (7-56) units/L Alkaline Phosphatase 126 (35-129) units/L Total Protein 6.5 (6.3-8.2) g/dL Albumin 3.5 L (3.9-5) g/dL - Imaging and Cardiology Echo: report reviewed (03/2020 showed EF 60-65%, no significant abnormalities. ) Cardiac cath: report reviewed (09/15/2019 showed mild nonobstructive CAD (25% mid RCA), EF 55-60%. ) EKG: report reviewed, image reviewed EKG interpretations - Telemetry EKG Rhythm: Sinus Rhythm - EKG Sinus rhythms and dysrhythmias: sinus rhythm Assessment and Plan 64-year-old male with chronic anemia HIV tobacco use, cocaine use, hypertension hyperlipidemia. continue calcium channel dominik and statin and low-dose aspirin no beta-dominik in view of history of cocaine use. Negative troponin x2. EKG NSR no acute ischemic changes. Nonobstructive coronary disease based on cath last year. Normal LV function recent echocardiogram. Patient chest pain is atypical in nature reproducible. No indication for additional cardiac w/u at this time. Pt has h/o paroxysmal AFib, currently in NSR. Pt is not a good candidate for senior living systemic AC due to chronic anemia and medical noncompliance. The patient has been seen in conjunction with Dr. Hall who agrees with the assessment and plan of care. - Patient Problems (1) Chest pain Current Visit: Yes Status: Acute (2) Nonobstructive atherosclerosis of coronary artery Current Visit: Yes Status: Chronic (3) Paroxysmal atrial fibrillation Current Visit: Yes Status: Chronic (4) Hypertension Current Visit: Yes Status: Chronic Qualifiers: Hypertension type: essential hypertension Qualified Code(s): I10 - Essential (primary) hypertension (5) COPD (chronic obstructive pulmonary disease) Current Visit: Yes Status: Chronic Qualifiers: COPD type: unspecified COPD Qualified Code(s): J44.9 - Chronic obstructive pulmonary disease, unspecified (6) HIV (human immunodeficiency virus infection) Current Visit: Yes Status: Chronic Qualifiers: HIV symptom status: asymptomatic Qualified Code(s): Z21 - Asymptomatic human immunodeficiency virus [HIV] infection status (7) Anemia Current Visit: Yes Status: Chronic Qualifiers: Anemia type: unspecified type Qualified Code(s): D64.9 - Anemia, unspecified (8) History of pulmonary embolism Current Visit: Yes Status: Chronic (9) Tobacco use Current Visit: Yes Status: Chronic (10) Medical noncompliance Current Visit: Yes Status: Chronic (11) Cocaine use Current Visit: Yes Status: Chronic
[2020-05-18 17:32] LABS: Total Cells Counted 100
[2020-05-18 17:33] LABS: Anisocytosis 2+; Hypochromasia 1+; Ovalocytes 1+
[2020-05-18 17:34] LABS: Helmet Cells Rare; Schistocytes Rare
[2020-05-18 17:35] LABS: Large Platelets Rare; Platelet Estimate Consistent w Auto
[2020-05-18] MEDS ORDERED: MONTELUKAST 5 MG PO SCH (18:00)
[2020-05-18] MEDS: traMADol 50 MG TAB PO PRN (20:00)
[2020-05-18] MEDS ORDERED: MONTELUKAST 10 MG TAB PO SCH (22:00)
[2020-05-19] MEDS: traMADol 50 MG TAB PO PRN (02:49)
[2020-05-19] MEDS: methylPREDNISolone Sod Succinate 40 MG/1 ML INJ IV SCH ×2 (05:43→15:28)
[2020-05-19] MEDS: IPRATROPIUM/ALBUTEROL SULFATE 3 ML AMPUL.NEB IH SCH ×2 (08:21→13:56)
[2020-05-19] MEDS: MORPHINE 2 MG/1 ML INJ IV PRN (09:47)
[2020-05-19] MEDS: CALCIUM CARBONATE 500 MG TAB CHEW PO SCH (09:48)
[2020-05-19] MEDS: FERROUS SULFATE 325 MG TAB PO SCH (09:48)
[2020-05-19] MEDS: ALPRAZolam 0.5 MG TAB PO SCH (09:48)
[2020-05-19] MEDS: ASPIRIN EC 81 MG TAB PO SCH (09:48)
[2020-05-19] MEDS: PANTOPRAZOLE 40 MG TAB PO SCH (09:48)
--- NOTE | 2020-05-19 09:52 | Electrocardiograph Report ---
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
--- NOTE | 2020-05-19 09:53 | Electrocardiograph Report ---
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
[2020-05-19] MEDS: dilTIAZem CD 240 MG CAP PO SCH (10:31)
[2020-05-19 11:05] LABS: Hematocrit 27.1 % (35.5-45.6); Hemoglobin 8.4 gm/dl (11.8-15.2)
--- NOTE | 2020-05-19 11:24 | Discharge Summary ---
Providers - Providers Date of Admission: 05/18/20 03:02 Date of discharge: 05/19/20 Attending physician: SUE LEON 05/18/20 Consult to Cardiac Rehabilitation [CONS] Routine Reason For Exam: Phase I 05/18/20 10:46 Consult to Physician [CONS] Routine Comment: Consulting Provider: CATRACHITA RAE Physician Instructions: Reason For Exam: chest pain [facility] Condition[facility] Hospital course: 64-year-old male with history of chronic anemia, HIV with unknown CD4 count, tobacco abuse, cocaine abuse, hypertension, hyperlipidemia, transient atrial fibrillation (no systemic AC in the past secondary to brief duration of AFib, anemia and medical noncompliance), nonobstructive CAD, COPD on 2 L home O2, PE in the past, with a history of multiple prior hospitalization transient presented to ER by EMS with complaints of chest pain. Patient stated that his chest pain is worse with palpation and deep breaths. He also admits ongoing crack cocaine use and his UDS was positive for cocaine. Patient was just recently discharged on 05/13/2020 after having similar presentation. No additional cardiac work-up was recommended at that time. In the ER patient had negative troponin x2. EKG NSR no acute ischemic changes. LHC done 09/15/2019 showed mild nonobstructive CAD (25% mid RCA), EF 55-60%. Stress MPI done 08/24/2019 was negative. tte done 03/2020 showed EF 60-65%, no significant abnormalities. Cardiology was consulted, patient chest pain is atypical in nature reproducible. Cardiology recommended no further additional cardiac work-up at this time. Pt has h/o paroxysmal AFib, currently in NSR. 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 Patient noted to have hemoglobin of 6.9, 1 unit of packed RBC was transfused. Patient did not have any active bleeding. Patient was counseled to follow-up outpatient with process expert and also GI for possible EGD/colonoscopy. Patient verbalized understanding and was discharged home in stable condition with outpatient follow-up Disposition: [id number] HOME UNDER HOME [facility] Final Discharge Diagnosis (Prints w/discharge instructions): (1) Chest pain due to GERD and cocaine. Current Visit: Yes Status: Acute. (2) Nonobstructive atherosclerosis of coronary artery. Current Visit: Yes Status: Chronic. (3) Paroxysmal atrial fibrillation, not on anticoagulation due to noncompliance and chronic anemia. Current Visit: Yes Status: Chronic. (4) Hypertension. Current Visit: Yes Status: Chronic. Qualifiers: Hypertension type: essential hypertension Qualified Code(s): I10 - Essential (primary) hypertension. (5) COPD (chronic obstructive pulmonary disease) with chronic respiratory failure on home O2. Current Visit: Yes Status: Chronic. Qualifiers: COPD type: unspecified COPD Qualified Code(s): J44.9 - Chronic obstructive pulmonary disease, unspecified. (6) HIV (human immunodeficiency virus infection). Current Visit: Yes Status: Chronic. Qualifiers: HIV symptom status: asymp tomatic Qualified Code(s): Z21 - Asymptomatic human immunodeficiency virus [HIV] infection status. (7) Anemia of CD. Current Visit: Yes Status: Chronic. Qualifiers: Anemia type: unspecified type Qualified Code(s): D64.9 - Anemia, unspecified. (8) History of pulmonary embolism. Current Visit: Yes Status: Chronic. (9) Tobacco use. Current Visit: Yes Status: Chronic. (10) Medical noncompliance. Current Visit: Yes Status: Chronic. (11) Cocaine abuse, UDS was positive, counseled for cessation. Current Visit: Yes Status: Chronic Time spent for discharge: 34 minutes Core Measure Documentation - Palliative Care Palliative Care/ Comfort Measures: Not Applicable - Core Measures Any of the following diagnoses?: none Exam - Constitutional Vitals: Temp Pulse Resp BP Pulse Ox 97.5 F L 74 24 121/81 95 05/19/20 06:23 05/19/20 10:31 05/19/20 08:21 05/19/20 10:31 05/19/20 08:21 Plan Activity: advance as tolerated Weight Bearing Status: Weight Bear as Tolerated Diet: low fat, low salt Follow up with: BRINA GARCIA MD [Primary Care Provider] - 7 Days GODWIN CANALES MD [Staff Physician] - 7 Days
[2020-05-19 11:51] VITALS: BP 117/64
[2020-05-19] MEDS ORDERED: PNEUMOCOCCAL 23 Valent 0.5 ML VIAL IM ONE (12:00)
== END 2020-05-19 15:30 | disposition home health service (06) ==
LOC: ED 22:34 → 3A 05-18 03:02
PROVIDERS: ADMIT Hospitalist; ATTEND Internal Medicine
DX: J96.11 Chronic respiratory failure with hypoxia (principal); Z20.822 Contact with and (suspected) exposure to COVID-19; J44.1 Chronic obstructive pulmonary disease with (acute) exacerbation; R07.89 Other chest pain; D64.9 Anemia, unspecified; I25.10 Atherosclerotic heart disease of native coronary artery without angina pectoris; F14.10 Cocaine abuse, uncomplicated; I48.0 Paroxysmal atrial fibrillation; E78.00 Pure hypercholesterolemia, unspecified; M54.9 Dorsalgia, unspecified; F17.210 Nicotine dependence, cigarettes, uncomplicated; G89.29 Other chronic pain; Z79.82 Long term (current) use of aspirin; Z21 Asymptomatic human immunodeficiency virus [HIV] infection status; Z86.711 Personal history of pulmonary embolism; Z91.14 Patient's other noncompliance with medication regimen
CPT/HCPCS: 36415; 71046; 80048; 80053; 80307; 82728; 82947; 83615; 84145; 84484; 85014; 85018; 85025; 85379; 86140; 86850; 86900; 86901; 86920; 93005; 94640; 96365; 96367; 96372; 96375; 96376; 99291; 99406; A9270; G0378; J0456; J0696; J1644; J2270; J2920; J2930; P9016; U0003; 85007; 94644

== ENCOUNTER 2020-05-24 07:14 | Emergency (ER) | payer MEDICARE ==
[2020-05-24] MEDS ORDERED: ASPIRIN 325 MG TAB PO ONE (07:34)
[2020-05-24 07:52] LABS: Hematocrit 27.2 % (35.5-45.6); Hemoglobin 8.7 gm/dl (11.8-15.2); Mean Corpuscular HGB Conc 32 % (32-34); Mean Corpuscular Volume 79 fl (84-94); Platelet Count 320 K/mm3 (140-440); Red Blood Count 3.44 M/mm3 (3.65-5.03)
[2020-05-24 08:15] LABS: Alanine Aminotransferase 37 units/L (7-56); Albumin 3.2 g/dL (3.9-5); BUN/Creatinine Ratio 17; Blood Urea Nitrogen 20 mg/dL (9-20); Calcium 6.8 mg/dL (8.4-10.2); Hemolysis Index 3
[2020-05-24 08:22] LABS: Red Cell Distribution Width 22.7 % (13.2-15.2)
--- NOTE | 2020-05-24 08:33 | XRay Report ---
CHEST 2 VIEWS INDICATION: chest pain, SOB. COMPARISON: 05/17/2020 FINDINGS: Support devices: None. Heart: Within normal limits. Lungs/pleura: Moderate to severe COPD changes appear stable. The lungs are generally clear with no e vidence for infiltrate, pleural fluid or pneumothorax. Additional findings: None. IMPRESSION: No acute findings. COPD. Signer Name: Edmund Valdes Jr, MD Signed: 05/24/2020 8:29 AM Workstation Name: [id number]
[2020-05-24] MEDS ORDERED: methylPREDNISolone Sod Succinate 125 MG/2 ML INJ IV ONE (09:07)
[2020-05-24] MEDS ORDERED: MORPHINE 4 MG/1 ML INJ IV ONE (09:07)
[2020-05-24] MEDS ORDERED: MAGNESIUM SULFATE 2 GM/50 ML BAG IV ONE (09:07)
[2020-05-24] MEDS ORDERED: IPRATROPIUM 0.02% NEBU 2.5 ML IH ONE ×3 (09:07→13:44)
[2020-05-24] MEDS ORDERED: ONDANSETRON 4 MG/2 ML INJ IV ONE (09:07)
[2020-05-24] MEDS ORDERED: ALBUTEROL 2.5 MG/3 ML NEBU IH ONE ×3 (09:07→13:44)
--- NOTE | 2020-05-24 09:11 | Emergency Department Report ---
HPI - General Chief Complaint: Chest Pain Time Seen by Provider: 05/24/20 08:59 - HPI HPI: Room 22 The patient is a 64-year-old male present with a chief complaint of shortness of breath and chest pain. Patient states he developed chest pain last night in addition to shortness of breath and nausea without vomiting. Patient has been to this emergency department multiple times for the same. When asked when was last time he used cocaine the patient replies 1 month. I reminded the patient that I saw him 12 days ago when he said he smoked cocaine that was in a cigarette and the patient states this was the last time. Patient had a cardiac catheterization performed in 2019 that showed nonobstructive disease ED Past Medical Hx - Past Medical History Previous Medical History?: Yes Hx Hypertension: Yes Hx Asthma: Yes Hx COPD: Yes (Home O2) Hx HIV: Yes Additional medical history: Elevated Cholesterol & Chronic back pain. - Surgical History Past Surgical History?: No - Family History Family history: no significant - Social History Smoking Status: Current Every Day Smoker Substance Use Type: Alcohol, Cocaine - Medications Home Medications: Home Medications Medication Instructions Recorded Confirmed Last Taken Type Albuterol Mdi (or & Nicu Only) 2 puff IH QID PRN #1 inhalation 04/11/20 05/12/20 Unknown Rx [ProAir HFA Inhaler] AtorvaSTATin [Lipitor] 40 mg PO QHS tablet 04/11/20 05/12/20 Unknown Rx Montelukast [Singulair] 10 mg PO QHS tablet 04/11/20 05/12/20 Unknown Rx Docusate Sodium [Colace CAP] 100 mg PO BID PRN #60 capsule 04/27/20 05/12/20 Unknown Rx ALPRAZolam [Xanax TAB] 0.5 mg PO BID #16 tablet 05/13/20 Unknown Rx Calcium Carbonate [Calcium 400 mg PO QDAY 30 Days #30 tab.chew 05/13/20 Unknown Rx Carbonate 400MG CHEW] Ferrous Sulfate [Feosol 325 MG tab] 325 mg PO QDAY 60 Days #60 tablet 05/13/20 Unknown Rx Pantoprazole [Protonix TAB] 40 mg PO QDAY 30 Days #30 tablet 05/13/20 Unknown Rx Aspirin EC [Halfprin EC] 81 mg PO QDAY #100 05/15/20 Unknown Rx dilTIAZem CD [Cardizem CD] 240 mg PO QDAY #30 capsule 05/15/20 Unknown Rx Ipratropium/Albuterol Sulfate 1 ampul IH TIDRT #50 ampul.neb 05/16/20 Unknown Rx [DUONEB *Not for PRN Use*] Albuterol Mdi (or & Nicu Only) 2 puff IH QID PRN #8.5 gram 05/24/20 Unknown Rx [ProAir HFA Inhaler] Azithromycin [Zithromax Z-MYNOR] 0 mg PO DAILY #6 tab 05/24/20 Unknown Rx Prednisone [predniSONE 10 mg 10 mg PO .TAPER #1 tab.ds.pk 05/24/20 Unknown Rx (6-Day Pack, 21 Tabs)] guaiFENesin [Guaifenesin] 400 mg PO Q4H #20 tablet 05/24/20 Unknown Rx ED Review of Systems ROS: Stated complaint: CHEST PAIN Other details as noted in HPI Constitutional: no symptoms reported Eyes: denies: eye pain ENT: denies: throat pain Respiratory: shortness of breath Cardiovascular: chest pain Endocrine: no symptoms reported Gastrointestinal: nausea Genitourinary: denies: dysuria Musculoskeletal: denies: back pain Neurological: denies: headache Physical Exam - Physical Exam Vital Signs: Vital Signs 05/24/20 07:27 Temperature 98.6 F Pulse Rate 60 Respiratory 30 H Rate Blood Pressure 124/60 [Right] O2 Sat by Pulse 91 Oximetry Physical Exam: GENERAL: The patient is well-developed well-nourished male lying on stretcher exhibiting slightly increased work of breathing. [] HEENT: Normocephalic. Atraumatic. Extraocular motions are intact. Patient has moist mucous membranes. NECK: Supple. Trachea midline CHEST/LUNGS: Faint expiratory wheezing. There is no respiratory distress noted. HEART/CARDIOVASCULAR: Regular. There is no tachycardia. There is no gallop rub or murmur. ABDOMEN: Abdomen is soft, nontender. Patient has normal bowel sounds. There is no abdominal distention. SKIN: There is no rash. There is no edema. There is no diaphoresis. NEURO: The patient is awake, alert, and oriented. The patient is cooperative. The patient has normal speech MUSCULOSKELETAL: There is no evidence of acute injury. ED Course Vital Signs 05/24/20 07:27 Temperature 98.6 F Pulse Rate 60 Respiratory 30 H Rate Blood Pressure 124/60 [Right] O2 Sat by Pulse 91 Oximetry - Reevaluation(s) Reevaluation #1: 05/24/20 15:18 Patient improved. Lungs clear to auscultation. ED Medical Decision Making - Lab Data Result diagrams: 05/24/20 07:42 05/24/20 07:42 Laboratory Tests 05/24/20 05/24/20 05/24/20 07:42 07:42 10:31 WBC 10.3 RBC 3.44 L Hgb 8.7 L Hct 27.2 L MCV 79 L MCH 25 L MCHC 32 RDW 22.7 H Plt Count 320 Add Manual Diff Complete Total Counted 100 Seg Neuts % (Manual) 82.0 H Lymphocytes % (Manual) 10.0 L Monocytes % (Manual) 4.0 Eosinophils % (Manual) 4.0 Nucleated RBC % Not Reportable Seg Neutrophils # Man 8.4 H Band Neutrophils # 0.0 Lymphocytes # (Manual) 1.0 L Abs React Lymphs (Man) 0.0 Monocytes # (Manual) 0.4 Eosinophils # (Manual) 0.4 Basophils # (Manual) 0.0 Metamyelocytes # 0.0 Myelocytes # 0.0 Promyelocytes # 0.0 Blast Cells # 0.0 WBC Morphology Not Reportable Hypersegmented Neuts Not Reportable Hyposegmented Neuts Not Reportable Hypogranular Neuts Not Reportable Smudge Cells Not Reportable Toxic Granulation Not Reportable Toxic Vacuolation Not Reportable Dohle Bodies Not Reportable Pelger-Huet Anomaly Not Reportable Ruma Rods Not Reportable Platelet Estimate Consistent w auto Clumped Platelets Not Reportable Plt Clumps, EDTA Not Reportable Large Platelets Not Reportable Giant Platelets Not Reportable Platelet Satelliting Not Reportable Plt Morphology Comment Not Reportable RBC Morphology Not Reportable Dimorphic RBCs Not Reportable Polychromasia Not Reportable Hypochromasia 1+ Poikilocytosis Not Reportable Anisocytosis 1+ Microcytosis Not Reportable Macrocytosis Not Reportable Spherocytes Not Reportable Pappenheimer Bodies Not Reportable Sickle Cells Not Reportable Target Cells Not Reportable Tear Drop Cells Not Reportable Ovalocytes Not Reportable Helmet Cells Not Reportable David-Trosky Bodies Not Reportable [place] Rings Not Reportable [place] Cells Not Reportable Bite Cells Not Reportable Crenated Cell Not Reportable Elliptocytes Rare Acanthocytes (Spur) Not Reportable Rouleaux Not Reportable Hemoglobin C Crystals Not Reportable Schistocytes Rare Malaria parasites Not Reportable Ric Bodies Not Reportable Hem Pathologist Commnt No Sodium 135 L Potassium 3.7 Chloride 92.0 L Carbon Dioxide 36 H Anion Gap 11 BUN 20 Creatinine 1.2 Estimated GFR > 60 BUN/Creatinine Ratio 17 Glucose 107 H Calcium 6.8 L Total Bilirubin 0.40 AST 25 ALT 37 Alkaline Phosphatase 102 Total Creatine Kinase 62 Troponin T < 0.010 NT-Pro-B Natriuret Pep 380.8 Total Protein 6.3 Albumin 3.2 L Albumin/Globulin Ratio 1.0 Urine Color Urine Turbidity Urine pH Ur Specific [place] Urine Protein Urine Glucose (UA) Urine Ketones Urine Blood Urine Nitrite Urine Bilirubin Urine Urobilinogen Ur Leukocyte Esterase Urine WBC (Auto) Urine RBC (Auto) U Epithel Cells (Auto) Urine Mucus Urine Opiates Screen Urine Methadone Screen Ur Barbiturates Screen Ur Phencyclidine Scrn Ur Amphetamines Screen U Benzodiazepines Scrn Urine Cocaine Screen U Marijuana (THC) Screen Drugs of Abuse Note 05/24/20 05/24/20 05/24/20 13:38 Unknown Unknown WBC RBC Hgb Hct MCV MCH MCHC RDW Plt Count Add Manual Diff Total Counted Seg Neuts % (Manual) Lymphocytes % (Manual) Monocytes % (Manual) Eosinophils % (Manual) Nucleated RBC % Seg Neutrophils # Man Band Neutrophils # Lymphocytes # (Manual) Abs React Lymphs (Man) Monocytes # (Manual) Eosinophils # (Manual) Basophils # (Manual) Metamyelocytes # Myelocytes # Promyelocytes # Blast Cells # WBC Morphology Hypersegmented Neuts Hyposegmented Neuts Hypogranular Neuts Smudge Cells Toxic Granulation Toxic Vacuolation Dohle Bodies Pelger-Huet Anomaly Ruma Rods Platelet Estimate Clumped Platelets Plt Clumps, EDTA Large Platelets Giant Platelets Platelet Satelliting Plt Morphology Comment RBC Morphology Dimorphic RBCs Polychromasia Hypochromasia Poikilocytosis Anisocytosis Microcytosis Macrocytosis Spherocytes Pappenheimer Bodies Sickle Cells Target Cells Tear Drop Cells Ovalocytes Helmet Cells David-Trosky Bodies [place] Rings [place] Cells Bite Cells Crenated Cell Elliptocytes Acanthocytes (Spur) Rouleaux Hemoglobin C Crystals Schistocytes Malaria parasites Ric Bodies Hem Pathologist Commnt Sodium Potassium Chloride Carbon Dioxide Anion Gap BUN Creatinine Estimated GFR BUN/Creatinine Ratio Glucose Calcium Total Bilirubin AST ALT Alkaline Phosphatase Total Creatine Kinase Troponin T < 0.010 NT-Pro-B Natriuret Pep Total Protein Albumin Albumin/Globulin Ratio Urine Color Yellow Urine Turbidity Clear Urine pH 7.0 Ur Specific [place] 1.012 Urine Protein 30 mg/dl Urine Glucose (UA) Neg Urine Ketones Neg Urine Blood Neg Urine Nitrite Neg Urine Bilirubin Neg Urine Urobilinogen < 2.0 Ur Leukocyte Esterase Neg Urine WBC (Auto) < 1.0 Urine RBC (Auto) < 1.0 U Epithel Cells (Auto) < 1.0 Urine Mucus Few Urine Opiates Screen Negative Urine Methadone Screen Negative Ur Barbiturates Screen Negative Ur Phencyclidine Scrn Negative Ur Amphetamines Screen Negative U Benzodiazepines Scrn Negative Urine Cocaine Screen Presumptive positive U Marijuana (THC) Screen Negative Drugs of Abuse Note Disclamer - EKG Data -: EKG Interpreted by Me EKG shows normal: sinus rhythm Rate: normal - EKG Data When compared to previous EKG there are: no significant change Interpretation: nonspecific ST-T wave toya (T wave inversions lead III) - Radiology Data Radiology results: report reviewed (Chest x-ray), image reviewed (Chest x-ray) interpreted by me: Chest x-ray-no focal infiltrates, no pneumothorax. No foreign body seen [facility] [address] [place] [address] XRay Report Signed Patient: NAVARRO YAN MR #: [id number] : 1955 Acct:[id number] Age/Sex: 64 / M ADM Date: 05/24/20 Loc: ED Attending Dr: Ordering Physician: ED MD FAYE Date of Service: 05/24/20 Procedure(s): XR chest routine 2V Accession Number(s): [id number] cc: ED MD FAYE Fluoro Time In Minutes: CHEST 2 VIEWS INDICATION: chest pain, SOB. COMPARISON: 05/17/2020 FINDINGS: Support devices: None. Heart: Within normal limits. Lungs/pleura: Moderate to severe COPD changes appear stable. The lungs are generally clear with no evidence for infiltrate, pleural fluid or pneumothorax. Additional findings: None. IMPRESSION: No acute findings. COPD. Signer Name: Edmund García Jr, MD Signed: 05/24/2020 8:29 AM Workstation Name: [id number] Transcribed By: TTR Dictated By: EDMUND GARCÍA JR, MD Electronically Authenticated By: EDMUND GARCÍA JR, MD Signed Date/Time: 05/24/20828 DD/ 7 TD/TT: Print Cancel - Differential Diagnosis COPD exacerbation, ACS, pericarditis, costochondritis Critical care attestation.: If time is entered above; I have spent that time in minutes in the direct care of this critically ill patient, excluding procedure time. ED Disposition Clinical Impression: COPD exacerbation, Atypical chest pain, Bronchitis Disposition: TO HOME OR SELFCARE Is pt being admited?: No Does the pt Need Aspirin: No Condition: Stable Instructions: Nonspecific Chest Pain, Adult, Chronic Obstructive Pulmonary Disease (ED), Chronic Bronchitis (ED) Additional Instructions: Return to the emergency department should you develop worsening symptoms, inability to tolerate food or liquids, high fever or any other concerns Prescriptions: guaiFENesin [Guaifenesin] 400 mg PO Q4H #20 tablet Prednisone [predniSONE 10 mg (6-Day Pack, 21 Tabs)] 10 mg PO .TAPER #1 tab.ds.pk Albuterol Mdi (or & Nicu Only) [ProAir HFA Inhaler] 2 puff IH QID PRN #8.5 gram PRN Reason: Shortness Of Breath Azithromycin [Zithromax Z-MYNOR] 0 mg PO DAILY #6 tab Referrals: [facility] [Provider Group] - 3-5 Days Time of Disposition: 15:22
[2020-05-24 10:24] LABS: Total Cells Counted 100
[2020-05-24 10:25] LABS: Anisocytosis 1+; Hypochromasia 1+
[2020-05-24 10:26] LABS: Schistocytes Rare
[2020-05-24 10:27] LABS: Platelet Estimate Consistent w Auto
[2020-05-24 11:56] LABS: Bilirubin,Urine NEG (Negative); Blood,Urine NEG (Negative); Color,Urine Yellow (Yellow); Mucus,Urine FEW /HPF; RBC,Urine < 1.0 /HPF (0.0-6.0); Urobilinogen,Urine < 2.0 mg/dL (<2.0)
[2020-05-24 12:02] LABS: Amphetamine Screen,Urine Negative; Benzodiazepines Screen,Urine Negative; Cannabinoid Screen,Urine Negative; Methadone Screen,Urine Negative; Opiate Screen,Urine Negative
[2020-05-24 12:13] LABS: WBC,Urine < 1.0 /HPF (0.0-6.0)
[2020-05-24 13:03] LABS: Cocaine Screen,Urine PRESUMPTIVE POSITIVE
[2020-05-24 14:20] VITALS: BP 126/75
--- NOTE | 2020-05-26 14:36 | Electrocardiograph Report ---
[facility] Test Date: 2020-05-24 Test Time: 07:58:38 Pat Name: NAVARRO YAN Department: Room: Gender: M Insole Taper: : 1955 Requested By: TUSHAR TRUONG Order Number: [id number] Reading MD: Yenny Chan Measurements Intervals Golf Rate: 97 P: -19 CO: 163 QRS: 33 QRSD: 83 T: -5 QT: 389 QTc: 489 Interpretive Statements Sinus rhythm Atrial premature complexes Low voltage, extremity leads Compared to ECG 05/18/2020 13:23:52 Atrial premature complex(es) now present Low QRS voltage now present ST (T wave) deviation no longer present Prolonged QT interval no longer present Electronically Signed On 05-26-2020 14:35:42 EDT by Yenny Chan
== END 2020-05-24 16:05 | disposition home or self-care (01) ==
LOC: ED 07:14
DX: J44.1 Chronic obstructive pulmonary disease with (acute) exacerbation (principal); R07.89 Other chest pain; I10 Essential (primary) hypertension; Z21 Asymptomatic human immunodeficiency virus [HIV] infection status; F17.200 Nicotine dependence, unspecified, uncomplicated; F14.10 Cocaine abuse, uncomplicated; Z79.899 Other long term (current) drug therapy
CPT/HCPCS: 36415; 71046; 80053; 80307; 81001; 82550; 83880; 84484; 85007; 85025; 93005; 94640; 96365; 96366; 96375; 99284; J2270; J2405; J2930; J3475; 94644

== ENCOUNTER 2020-05-24 16:33 | Emergency (ER) | payer MEDICARE ==
[2020-05-24 16:37] VITALS: BP 134/83
== END 2020-05-24 17:00 | disposition left against medical advice (07) ==
LOC: ED 16:33
DX: R06.00 Dyspnea, unspecified (principal); Z53.21 Procedure and treatment not carried out due to patient leaving prior to being seen by health care provider

== ENCOUNTER 2020-05-31 12:35 | Emergency (ER) | payer MEDICARE ==
[2020-05-31] MEDS ORDERED: methylPREDNISolone Sod Succinate 125 MG/2 ML INJ IV ONE (13:51)
[2020-05-31] MEDS ORDERED: IPRATROPIUM/ALBUTEROL SULFATE 3 ML AMPUL.NEB IH ONE (13:52)
--- NOTE | 2020-05-31 13:56 | Emergency Department Report ---
ED Chest Pain HPI - General Chief Complaint: Dyspnea/Respdistress Stated Complaint: CHEST PAIN/RICKY Time Seen by Provider: 05/31/20 13:35 Source: EMS, old records reviewed Mode of arrival: Wheelchair Limitations: No Limitations - History of Present Illness Initial Comments: 64-year-old male with a past medical history of COPD on home oxygen, pulmonary embolism, HIV noncompliant with meds for several years with unknown CD4 count, elevated cholesterol, asthma, hypertension and frequent ER visits for chest pain or shortness of breath presents to the hospital complaining of chest pain and shortness of breath since this a.m. Complains of chest tightness with difficulty breathing. Patient received bronchodilators and supplemental oxygen in route via EMS with some improvement in symptoms. Patient also occasionally smokes cigarettes and is known to be regular cocaine user but denies current use. Patient complains of cough without fever. He is not currently on steroids. Last ER visit May 14. Last admission May 16 as per medical record review. May 18 inpatient Covid test negative As per May 19 discharge summary: 64-year-old male with history of chronic anemia, HIV with unknown CD4 count, tobacco abuse, cocaine abuse, hypertension, hyperlipidemia, transient atrial fibrillation (no systemic AC in the past secondary to brief duration of AFib, anemia and medical noncompliance), nonobstructive CAD, COPD on 2 L home O2, PE in the past, with a history of multiple prior hospitalization transient presented to ER by EMS with complaints of chest pain. Patient stated that his chest pain is worse with palpation and deep breaths. He also admits ongoing crack cocaine use and his UDS was positive for cocaine. Patient was just recently discharged on 05/13/2020 after having similar presentation. No additional cardiac work-up was recommended at that time. In the ER patient had negative troponin x2. EKG NSR no acute ischemic changes. LHC done 09/15/2019 showed mild nonobstructive CAD (25% mid RCA), EF 55-60%. Stress MPI done 08/24/2019 was negative. tte done 03/2020 showed EF 60-65%, no significant abnormalities. Cardiology was consulted, patient chest pain is atypical in nature reproducible. Cardiology recommended no further additional cardiac work-up at this time. Pt has h/o paroxysmal AFib, currently in NSR. Pt is not a good candidate for assistant terminal manager systemic AC due to chronic anemia and medical noncompliance. Patient noted to have hemoglobin of 6.9, 1 unit of packed RBC was transfused. Patient did not have any active bleeding. Patient was counseled to follow-up outpatient with clinical information systems director and also GI for possible EGD/colonoscopy. Patient verbalized understanding and was discharged home in stable condition with outpatient follow-up Disposition: [id number]/TX-06 HOME UNDER HOME [facility] Final Discharge Diagnosis (Prints w/discharge instructions): (1) Chest pain due to GERD and cocaine. Current Visit: Yes Status: Acute. (2) Nonobstructive atherosclerosis of coronary artery. Current Visit: Yes Status: Chronic. (3) Paroxysmal atrial fibrillation, not on anticoagulation due to noncompliance and chronic anemia. Current Visit: Yes Status: Chronic. (4) Hypertension. Current Visit: Yes Status: Chronic. Qualifiers: Hypertension type: essential hypertension Qualified Code(s): I10 - Essential (primary) hypertension. (5) COPD (chronic obstructive pulmonary disease) with chronic respiratory failure on home O2. Current Visit: Yes Status: Chronic. Qualifiers: COPD type: unspe cified COPD Qualified Code(s): J44.9 - Chronic obstructive pulmonary disease, unspecified. (6) HIV (human immunodeficiency virus infection). Current Visit: Yes Status: Chronic. Qualifiers: HIV symptom status: asymptomatic Qualified Code(s): Z21 - Asymptomatic human immunodeficiency virus [HIV] infection status. (7) Anemia of CD. Current Visit: Yes Status: Chronic. Qualifiers: Anemia type: unspecified type Qualified Code(s): D64.9 - Anemia, unspecified. (8) History of pulmonary embolism. Current Visit: Yes Status: Chronic. (9) Tobacco use. Current Visit: Yes Status: Chronic. (10) Medical noncompliance. Current Visit: Yes Status: Chronic. (11) Cocaine abuse, UDS was positive, counseled for cessation. Current Visit: Yes Status: Chronic Time spent for discharge: 34 minutes - Related Data Previous Rx's Medication Instructions Recorded Last Taken Type AtorvaSTATin [Lipitor] 40 mg PO QHS tablet 04/11/20 Unknown Rx Docusate Sodium [Colace CAP] 100 mg PO BID PRN #60 capsule 04/27/20 Unknown Rx ALPRAZolam [Xanax TAB] 0.5 mg PO BID #16 tablet 05/13/20 Unknown Rx Calcium Carbonate [Calcium 400 mg PO QDAY 30 Days #30 tab.chew 05/13/20 Unknown Rx Carbonate 400MG CHEW] Ferrous Sulfate [Feosol 325 MG tab] 325 mg PO QDAY 60 Days #60 tablet 05/13/20 Unknown Rx Pantoprazole [Protonix TAB] 40 mg PO QDAY 30 Days #30 tablet 05/13/20 Unknown Rx Aspirin EC [Halfprin EC] 81 mg PO QDAY #100 tablet.dr 05/15/20 Unknown Rx dilTIAZem CD [Cardizem CD] 240 mg PO QDAY #30 capsule 05/15/20 Unknown Rx Ipratropium/Albuterol Sulfate 1 ampul IH TIDRT #50 ampul.neb 05/16/20 Unknown Rx [DUONEB *Not for PRN Use*] Albuterol Mdi (or & Nicu Only) 2 puff IH QID PRN #8.5 gram 05/24/20 Unknown Rx [ProAir HFA Inhaler] Azithromycin [Zithromax Z-MYNOR] 0 mg PO DAILY #6 tab 05/24/20 Unknown Rx guaiFENesin [Guaifenesin] 400 mg PO Q4H #20 tablet 05/24/20 Unknown Rx Acetaminophen [8 Hour 650 mg PO Q6HR PRN #20 tablet.er 05/31/20 Unknown Rx Acetaminophen] Albuterol Mdi (or & Nicu Only) 2 puff IH QID PRN #1 inhalation 05/31/20 Unknown Rx [ProAir HFA Inhaler] Montelukast [Singulair] 10 mg PO QHS #30 tablet 05/31/20 Unknown Rx Prednisone [predniSONE 10 mg 10 mg PO .TAPER #1 tab.ds.pk 05/31/20 Unknown Rx (6-Day Pack, 21 Tabs)] Allergies Allergy/AdvReac Type Severity Reaction Status Date / Time No Known Allergies Allergy Verified 05/15/20 09:18 Heart Score - EKG Read Time Time EKG Completed: 14:11 EKG Read Time: 14:14 ED Review of Systems ROS: Stated complaint: CHEST PAIN/RICKY Other details as noted in HPI Comment: All other systems reviewed and negative ED Past Medical Hx - Past Medical History Previous Medical History?: Yes Hx Hypertension: Yes Hx Pulmonary Embolism: Yes Hx Asthma: Yes Hx COPD: Yes (Home O2) Hx HIV: Yes Additional medical history: Elevated Cholesterol & Chronic back pain. - Social History Smoking Status: Current Some Day Smoker Substance Use Type: None - Medications Home Medications: Home Medications Medication Instructions Recorded Confirmed Last Taken Type AtorvaSTATin [Lipitor] 40 mg PO QHS tablet 04/11/20 05/12/20 Unknown Rx Docusate Sodium [Colace CAP] 100 mg PO BID PRN #60 capsule 04/27/20 05/12/20 Unknown Rx ALPRAZolam [Xanax TAB] 0.5 mg PO BID #16 tablet 05/13/20 Unknown Rx Calcium Carbonate [Calcium 400 mg PO QDAY 30 Days #30 tab.chew 05/13/20 Unknown Rx Carbonate 400MG CHEW] Ferrous Sulfate [Feosol 325 MG tab] 325 mg PO QDAY 60 Days #60 tablet 05/13/20 Unknown Rx Pantoprazole [Protonix TAB] 40 mg PO QDAY 30 Days #30 tablet 05/13/20 Unknown Rx Aspirin EC [Halfprin EC] 81 mg PO QDAY #100 tablet.dr 05/15/20 Unknown Rx dilTIAZem CD [Cardizem CD] 240 mg PO QDAY #30 capsule 05/15/20 Unknown Rx Ipratropium/Albuterol Sulfate 1 ampul IH TIDRT #50 ampul.neb 05/16/20 Unknown Rx [DUONEB *Not for PRN Use*] Albuterol Mdi (or & Nicu Only) 2 puff IH QID PRN #8.5 gram 05/24/20 Unknown Rx [ProAir HFA Inhaler] Azithromycin [Zithromax Z-MYNOR] 0 mg PO DAILY #6 tab 05/24/20 Unknown Rx guaiFENesin [Guaifenesin] 400 mg PO Q4H #20 tablet 05/24/20 Unknown Rx Acetaminophen [8 Hour 650 mg PO Q6HR PRN #20 tablet.er 05/31/20 Unknown Rx Acetaminophen] Albuterol Mdi (or & Nicu Only) 2 puff IH QID PRN #1 inhalation 05/31/20 Unknown Rx [ProAir HFA Inhaler] Montelukast [Singulair] 10 mg PO QHS #30 tablet 05/31/20 Unknown Rx Prednisone [predniSONE 10 mg 10 mg PO .TAPER #1 tab.ds.pk 05/31/20 Unknown Rx (6-Day Pack, 21 Tabs)] ED Physical Exam - General Limitations: No Limitations - Other Other exam information: General: No acute distress Head: Atraumatic Eyes: normal appearance ENT: Moist mucous membranes Neck: Normal appearance, no midline tenderness Chest: Clear to auscultation bilaterally, no wheezing, rales, crackles mild tachypnea.. + chest wall tenderness CV: Regular rate and rhythm Abdomen: Soft, normal bowel sounds, nontender, nondistended, no rebound or guarding Back: Normal inspection Extremity: Normal inspection, full range of motion, no calf tenderness or leg edema Neuro: Alert O x 3, no facial asymmetry, speech clear, no gross motor sensory deficit Psych: Appropriate behavior Skin: No rash ED Course Vital Signs 05/31/20 05/31/20 05/31/20 13:08 13:16 13:27 Temperature 98.8 F Pulse Rate 77 Pulse Rate [ Anterior Bilateral Throughout] Respiratory 25 H 26 H Rate Respiratory Rate [Anterior Bilateral Throughout] Blood Pressure 140/75 Blood Pressure 140/75 [Left] O2 Sat by Pulse 100 100 100 Oximetry 05/31/20 05/31/20 05/31/20 13:30 13:46 14:00 Temperature Pulse Rate 74 82 80 Pulse Rate [ Anterior Bilateral Throughout] Respiratory 30 H 24 28 H Rate Respiratory Rate [Anterior Bilateral Throughout] Blood Pressure 140/75 138/81 138/81 Blood Pressure [Left] O2 Sat by Pulse 100 100 96 Oximetry 05/31/20 05/31/20 05/31/20 14:16 14:24 14:30 Temperature Pulse Rate Pulse Rate [ 86 Anterior Bilateral Throughout] Respiratory Rate Respiratory 19 Rate [Anterior Bilateral Throughout] Blood Pressure 123/61 123/61 Blood Pressure [Left] O2 Sat by Pulse 100 100 Oximetry 05/31/20 05/31/20 05/31/20 14:46 15:00 15:16 Temperature Pulse Rate Pulse Rate [ Anterior Bilateral Throughout] Respiratory Rate Respiratory Rate [Anterior Bilateral Throughout] Blood Pressure 155/80 155/80 137/77 Blood Pressure [Left] O2 Sat by Pulse 100 100 100 Oximetry 05/31/20 05/31/20 18:00 18:02 Temperature Pulse Rate Pulse Rate [ Anterior Bilateral Throughout] Respiratory 20 20 Rate Respiratory Rate [Anterior Bilateral Throughout] Blood Pressure Blood Pressure [Left] O2 Sat by Pulse Oximetry SHARIF score - Sharif Score Age > 65: (0) No Aspirin use within the Past 7 Days: (0) No 3 or more CAD Risk Factors: (1) Yes 2 or more Angina events in past 24 hrs: (0) No Known CAD with more than 50% Stenosis: (0) No Elevated Cardiac Markers: (0) No ST Deviation Greater than 0.5mm: (0) No SHARIF Score: 1 ED Medical Decision Making - Lab Data Result diagrams: 05/31/20 14:03 05/31/20 14:03 Lab Results 05/31/20 05/31/20 05/31/20 Range/Units 14:03 14:03 14:03 WBC 10.6 (4.5-11.0) K/mm3 RBC 3.41 L (3.65-5.03) M/mm3 Hgb 8.6 L (11.8-15.2) gm/dl Hct 27.1 L (35.5-45.6) % MCV 80 L (84-94) fl MCH 25 L (28-32) pg MCHC 32 (32-34) % RDW 21.4 H (13.2-15.2) % Plt Count 319 (140-440) K/mm3 Lymph % (Auto) 4.8 L (13.4-35.0) % Dixie % (Auto) 7.3 (0.0-7.3) % Eos % (Auto) 1.4 (0.0-4.3) % Baso % (Auto) 0.4 (0.0-1.8) % Lymph # (Auto) 0.5 L (1.2-5.4) K/mm3 Dixie # (Auto) 0.8 (0.0-0.8) K/mm3 Eos # (Auto) 0.1 (0.0-0.4) K/mm3 Baso # (Auto) 0.0 (0.0-0.1) K/mm3 Seg Neutrophils % 86.1 H (40.0-70.0) % Seg Neutrophils # 9.1 H (1.8-7.7) K/mm3 PT 12.5 (12.2-14.9) Sec. INR 0.95 (0.87-1.13) Sodium 141 (137-145) mmol/L Potassium 3.6 (3.6-5.0) mmol/L Chloride 99.0 (98-107) mmol/L Carbon Dioxide 37 H (22-30) mmol/L Anion Gap 9 mmol/L BUN 16 (9-20) mg/dL Creatinine 1.3 (0.8-1.3) mg/dL Estimated GFR 55 ml/min BUN/Creatinine Ratio 12 % Glucose 82 (75-100) mg/dL Calcium 7.2 L (8.4-10.2) mg/dL Total Creatine Kinase (55-170) units/L CK-MB (CK-2) (0.0-4.0) ng/mL CK-MB (CK-2) Rel Index (0-4) Troponin T < 0.010 (0.00-0.029) ng/mL Urine Opiates Screen Urine Methadone Screen Ur Barbiturates Screen Ur Phencyclidine Scrn Ur Amphetamines Screen U Benzodiazepines Scrn Urine Cocaine Screen U Marijuana (THC) Screen Drugs of Abuse Note 05/31/20 05/31/20 05/31/20 Range/Units 14:03 16:45 Unknown WBC (4.5-11.0) K/mm3 RBC (3.65-5.03) M/mm3 Hgb (11.8-15.2) gm/dl Hct (35.5-45.6) % MCV (84-94) fl MCH (28-32) pg MCHC (32-34) % RDW (13.2-15.2) % Plt Count (140-440) K/mm3 Lymph % (Auto) (13.4-35.0) % Dixie % (Auto) (0.0-7.3) % Eos % (Auto) (0.0-4.3) % Baso % (Auto) (0.0-1.8) % Lymph # (Auto) (1.2-5.4) K/mm3 Dixie # (Auto) (0.0-0.8) K/mm3 Eos # (Auto) (0.0-0.4) K/mm3 Baso # (Auto) (0.0-0.1) K/mm3 Seg Neutrophils % (40.0-70.0) % Seg Neutrophils # (1.8-7.7) K/mm3 PT (12.2-14.9) Sec. INR (0.87-1.13) Sodium (137-145) mmol/L Potassium (3.6-5.0) mmol/L Chloride (98-107) mmol/L Carbon Dioxide (22-30) mmol/L Anion Gap mmol/L BUN (9-20) mg/dL Creatinine (0.8-1.3) mg/dL Estimated GFR ml/min BUN/Creatinine Ratio % Glucose (75-100) mg/dL Calcium (8.4-10.2) mg/dL Total Creatine Kinase 56 (55-170) units/L CK-MB (CK-2) 3.1 (0.0-4.0) ng/mL CK-MB (CK-2) Rel Index 5.5 H (0-4) Troponin T < 0.010 (0.00-0.029) ng/mL Urine Opiates Screen Negative Urine Methadone Screen Negative Ur Barbiturates Screen Negative Ur Phencyclidine Scrn Negative Ur Amphetamines Screen Negative U Benzodiazepines Scrn Negative Urine Cocaine Screen Positive U Marijuana (THC) Screen Negative Drugs of Abuse Note Disclamer - EKG Data -: EKG Interpreted by [place] EKG shows normal: sinus rhythm, ST-T waves (no stemi) Rate: normal (77) - EKG Data 05/31/20 17:32 Repeat EKG performed at 17: 22 does not show any acute findings or ischemic changes. - Radiology Data Radiology results: report reviewed CHEST 1 VIEW 05/31/2020 1:30 PM INDICATION / CLINICAL INFORMATION: Chest Pain. COMPARISON: 05/25/2019 FINDINGS: SUPPORT DEVICES: None. HEART / MEDIASTINUM: No significant abnormality. LUNGS / PLEURA: No significant pulmonary or pleural abnormality. No pneumothorax. ADDITIONAL FINDINGS: No significant additional findings. IMPRESSION: 1. No acute findings - Medical Decision Making 64-year-old male with frequent ED visits for similar symptoms of chest pain, shortness of breath, COPD exacerbation. Patient treated with bronchodilators and steroids as well as Toradol and Tylenol for pain. Symptoms improved with ED treatment. Patient has had fairly recent cardiac work-up including a heart cath last year without signs of significant CAD. In ED patient has unchanged EKG compared to previous with repeat ED EKG also lacking signs of acute ischemia. Troponin negative x2. No DVT symptoms on examination of persistent tachycardia. Patient is oxygen dependent. Contrary to patient's denial of drug use cocaine still detected in the urine. Patient has a long history of noncompliance, substance abuse, and frequent ED visits. Patient be encouraged to follow-up as outpatient for better self-care and to stop using cocaine. Critical Care Time: No Critical care attestation.: If time is entered above; I have spent that time in minutes in the direct care of this critically ill patient, excluding procedure time. ED Disposition Clinical Impression: Cocaine use, COPD exacerbation, Costochondritis, acute, O2 dependent, History of HIV infection, Chronic anemia Disposition: DC-01 TO HOME OR SELFCARE Is pt being admited?: No Does the pt Need Aspirin: No Condition: Stable Instructions: Chronic Obstructive Pulmonary Disease (ED), Chronic Obstructive P ulmonary Disease, Oxof-fl-Xeic, Chest Wall Pain, Stfs-ct-[id number], Stimulant Use Disorder-Cocaine Additional Instructions: Take the medication as prescribed. Follow-up with your doctor or doctor/clinic provided. Return if symptoms worsen as indicated by your discharge instruc tions. SUBSTANCE ABUSE PROGRAMS: [facility]: Location: [place], [place] [employer] Address: [address] [place] [address] [facility]: Address: [address] [place] [address] [place] [address] [facility]: Address: [address] [place] [address] [facility]: Address: [address] [place] [address] Prescriptions: Acetaminophen [8 Hour Acetaminophen] 650 mg PO Q6HR PRN #20 tablet.er PRN Reason: Pain , Severe (7-10) Prednisone [predniSONE 10 mg (6-Day Pack, 21 Tabs)] 10 mg PO .TAPER #1 tab.ds.pk Albuterol Mdi (or & Nicu Only) [ProAir HFA Inhaler] 2 puff IH QID PRN #1 inhalation PRN Reason: Shortness Of Breath Montelukast [Singulair] 10 mg PO QHS #30 tablet Referrals: JANENE VASQUEZ MD [Primary Care Provider] - 3-5 Days FRANCISCO MILLER MD [Staff Physician] - 3-5 Days (lung specialist ) Time of Disposition: 18:52
[2020-05-31 14:33] LABS: Basophils % (Auto) 0.4 % (0.0-1.8); Eosinophils # (Auto) 0.1 K/mm3 (0.0-0.4); Eosinophils % (Auto) 1.4 % (0.0-4.3); Hematocrit 27.1 % (35.5-45.6); Hemoglobin 8.6 gm/dl (11.8-15.2); Lymphocytes # (Auto) 0.5 K/mm3 (1.2-5.4); Lymphocytes % (Auto) 4.8 % (13.4-35.0); Mean Corpuscular HGB Conc 32 % (32-34); Mean Corpuscular Volume 80 fl (84-94); Monocytes # (Auto) 0.8 K/mm3 (0.0-0.8); Monocytes % (Auto) 7.3 % (0.0-7.3); Platelet Count 319 K/mm3 (140-440); Red Blood Count 3.41 M/mm3 (3.65-5.03)
[2020-05-31 14:36] LABS: Red Cell Distribution Width 21.4 % (13.2-15.2)
--- NOTE | 2020-05-31 14:39 | XRay Report ---
CHEST 1 VIEW 05/31/2020 1:30 PM INDICATION / CLINICAL INFORMATION: Chest Pain. COMPARISON: 05/25/2019 FINDINGS: SUPPORT DEVICES: None. HEART / MEDIASTINUM: No significant abnormality. LUNGS / PLEURA: No significant pulmonary or pleural abnormality. No pneumothorax. ADDITIONAL FINDINGS: No significant additional findings. IMPRESSION: 1. No acute findings. Signer Name: Omega Mcintyre MD Signed: 05/31/2020 2:34 PM Workstation Name: [id number]
[2020-05-31 14:43] LABS: INR 0.95 (0.87-1.13)
[2020-05-31 14:55] LABS: BUN/Creatinine Ratio 12; Blood Urea Nitrogen 16 mg/dL (9-20); Calcium 7.2 mg/dL (8.4-10.2); Hemolysis Index 1
[2020-05-31 14:57] LABS: Creatine Kinase MB 3.1 ng/mL (0.0-4.0)
[2020-05-31 15:01] LABS: Amphetamine Screen,Urine Negative; Benzodiazepines Screen,Urine Negative; Cannabinoid Screen,Urine Negative; Methadone Screen,Urine Negative; Opiate Screen,Urine Negative
[2020-05-31 15:19] LABS: Cocaine Screen,Urine Positive
[2020-05-31 15:27] VITALS: BP 137/77
[2020-05-31] MEDS ORDERED: ACETAMINOPHEN 325 MG TAB PO ONE (17:29)
[2020-05-31] MEDS ORDERED: KETOROLAC 60 MG/2 ML INJ IM ONE (17:29)
[2020-05-31] MEDS ORDERED: ALBUTEROL 2.5 MG/3 ML NEBU IH ONE (17:30)
--- NOTE | 2020-06-02 11:19 | Electrocardiograph Report ---
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
--- NOTE | 2020-06-02 11:20 | Electrocardiograph Report ---
[facility] Test Date: 2020-05-31 Test Time: 17:22:31 Pat Name: NAVARRO YAN Department: Room: Gender: M Social Services Manager: JIMMY : 1955 Requested By: ELIZ ANDRADE Order Number: [id number] Reading MD: Alberto Hernandez Measurements Intervals [place] Rate: 81 P: 74 [place]: 155 QRS: -11 QRSD: 94 T: 54 QT: 391 QTc: 453 Interpretive Statements Sinus rhythm Compared to ECG 05/31/2020 14:11:44 No significant changes Electronically Signed On 06-02-2020 11:19:53 EDT by Alberto Hernandez
== END 2020-05-31 19:52 | disposition home or self-care (01) ==
LOC: ED 12:35
DX: F14.10 Cocaine abuse, uncomplicated (principal); M94.0 Chondrocostal junction syndrome [Tietze]; J44.9 Chronic obstructive pulmonary disease, unspecified; D64.89 Other specified anemias; I10 Essential (primary) hypertension; E11.9 Type 2 diabetes mellitus without complications; Z21 Asymptomatic human immunodeficiency virus [HIV] infection status; Z99.81 Dependence on supplemental oxygen; Z79.899 Other long term (current) drug therapy; F17.200 Nicotine dependence, unspecified, uncomplicated
CPT/HCPCS: 36415; 71045; 80048; 80307; 82550; 82553; 84484; 85025; 85610; 93005; 94640; 96372; 96374; 99284; J1885; J2930; 94644

== ENCOUNTER 2020-06-16 11:09 | Emergency (ER) | payer MEDICARE ==
--- NOTE | 2020-06-16 12:03 | XRay Report ---
CHEST 2 VIEWS INDICATION / CLINICAL INFORMATION: Chest pain. COMPARISON: 05/31/20. FINDINGS: SUPPORT DEVICES: None. HEART / MEDIASTINUM: The heart size and pulmonary vasculature are normal. The aorta is normal in nola danae. LUNGS / PLEURA: There are small calcified granulomata in both upper lung zones. Minimal linear opacit y in the right lateral costophrenic angle is new. The lungs are hyperinflated. No pneumothorax. ADDITIONAL FINDINGS: No significant additional findings. IMPRESSION: Emphysema. Minimal subsegmental atelectasis in the right lateral lung base. Signer Name: Juan Egan MD Signed: 06/16/2020 11:58 AM Workstation Name: [id number]
--- NOTE | 2020-06-16 12:10 | Event Note ---
ED Screening Note Date of service: 06/16/20 Time: 12:09 ED Screening Note: Patient presents to the ER today with left-sided chest pain, dizziness and increased shortness of breath since yesterday. Patient has a history of COPD currently on home O2, HIV, hyperlipidemia and hypertension. Patient appears to be noncompliant with any of his medications. This initial assessment/diagnostic orders/clinical plan/treatment(s) is/are subject to change based on patients health status, clinical progression and re- assessment by fellow clinical providers in the ED. Further treatment and workup at subsequent clinical providers discretion. Patient/guardian urged not to elope from the ED as their condition may be serious if not clinically assessed and managed. Initial orders include: Chest pain order set
[2020-06-16 12:15] LABS: Eosinophils % (Auto) 0.2 % (0.0-4.3); Hematocrit 21.2 % (35.5-45.6); Hemoglobin 6.6 gm/dl (11.8-15.2); Lymphocytes # (Auto) 0.6 K/mm3 (1.2-5.4); Mean Corpuscular HGB Conc 31 % (32-34); Mean Corpuscular Volume 79 fl (84-94); Monocytes # (Auto) 0.8 K/mm3 (0.0-0.8); Monocytes % (Auto) 6.5 % (0.0-7.3); Platelet Count 250 K/mm3 (140-440); Red Blood Count 2.68 M/mm3 (3.65-5.03); Red Cell Distribution Width 19.9 % (13.2-15.2)
[2020-06-16 12:20] LABS: Alanine Aminotransferase 42 units/L (7-56); Albumin 3.2 g/dL (3.9-5); BUN/Creatinine Ratio 17; Blood Urea Nitrogen 15 mg/dL (9-20); Calcium 7.4 mg/dL (8.4-10.2); Hemolysis Index 6
--- NOTE | 2020-06-17 03:15 | Emergency Department Report ---
HPI - General Chief Complaint: Chest Pain Time Seen by Provider: 06/16/20 11:44 - HPI HPI: Room 25 The patient is a 64-year-old male present with a chief complaint of chest pain and shortness of breath. Patient states symptom began yesterday morning with substernal chest pain associated with shortness of breath. Patient also admits to pleurisy. Patient denies history of fever but states she has had an occasional nonproductive cough. Patient is well-known to this emergency department and comes frequently for the above complaint ED Past Medical Hx - Past Medical History Previous Medical History?: Yes Hx Hypertension: Yes Hx Pulmonary Embolism: Yes Hx Asthma: Yes Hx COPD: Yes (Home O2) Hx HIV: Yes Additional medical history: Elevated Cholesterol & Chronic back pain. - Surgical History Past Surgical History?: No - Family History Family history: no significant - Social History Smoking Status: Never Smoker Substance Use Type: Cocaine - Medications Home Medications: Home Medications Medication Instructions Recorded Confirmed Last Taken Type AtorvaSTATin [Lipitor] 40 mg PO QHS tablet 04/11/20 05/12/20 Unknown Rx Docusate Sodium [Colace CAP] 100 mg PO BID PRN #60 capsule 04/27/20 05/12/20 Unknown Rx ALPRAZolam [Xanax TAB] 0.5 mg PO BID #16 tablet 05/13/20 Unknown Rx Calcium Carbonate [Calcium 400 mg PO QDAY 30 Days #30 tab.chew 05/13/20 Unknown Rx Carbonate 400MG CHEW] Ferrous Sulfate [Feosol 325 MG tab] 325 mg PO QDAY 60 Days #60 tablet 05/13/20 Unknown Rx Pantoprazole [Protonix TAB] 40 mg PO QDAY 30 Days #30 tablet 05/13/20 Unknown Rx Aspirin EC [Halfprin EC] 81 mg PO QDAY #100 tablet. 05/15/20 Unknown Rx dilTIAZem CD [Cardizem CD] 240 mg PO QDAY #30 capsule 05/15/20 Unknown Rx Ipratropium/Albuterol Sulfate 1 ampul IH TIDRT #50 ampul.neb 05/16/20 Unknown Rx [DUONEB *Not for PRN Use*] Albuterol Mdi (or & Nicu Only) 2 puff IH QID PRN #8.5 gram 05/24/20 Unknown Rx [ProAir HFA Inhaler] Azithromycin [Zithromax Z-MYNOR] 0 mg PO DAILY #6 tab 05/24/20 Unknown Rx guaiFENesin [Guaifenesin] 400 mg PO Q4H #20 tablet 05/24/20 Unknown Rx Acetaminophen [8 Hour 650 mg PO Q6HR PRN #20 tablet.er 05/31/20 Unknown Rx Acetaminophen] Albuterol Mdi (or & Nicu Only) 2 puff IH QID PRN #1 inhalation 05/31/20 Unknown Rx [ProAir HFA Inhaler] Montelukast [Singulair] 10 mg PO QHS #30 tablet 05/31/20 Unknown Rx Prednisone [predniSONE 10 mg 10 mg PO .TAPER #1 tab.ds.pk 05/31/20 Unknown Rx (6-Day Pack, 21 Tabs)] Ibuprofen [Motrin 800 MG tab] 800 mg PO Q8HR PRN #20 tablet 06/17/20 Unknown Rx ED Review of Systems ROS: Stated complaint: chest pains Other details as noted in HPI Constitutional: denies: fever Eyes: denies: eye pain ENT: denies: throat pain Respiratory: cough, shortness of breath Cardiovascular: chest pain Endocrine: no symptoms reported Gastrointestinal: denies: abdominal pain Genitourinary: denies: dysuria Musculoskeletal: back pain Neurological: denies: headache Physical Exam - Physical Exam Vital Signs: Vital Signs 06/16/20 06/16/20 06/16/20 11:17 16:57 20:00 Temperature 98.3 F Pulse Rate 102 H 122 H 110 H Respiratory 20 22 Rate Blood Pressure 134/80 Blood Pressure 211/134 146/86 [Right] O2 Sat by Pulse 96 93 99 Oximetry 06/17/20 00:00 Temperature Pulse Rate 111 H Respiratory Rate Blood Pressure Blood Pressure [Right] O2 Sat by Pulse 100 Oximetry Physical Exam: GENERAL: The patient is well-developed well-nourished male lying on stretcher not appearing to be in acute distress. [] HEENT: Normocephalic. Atraumatic. Extraocular motions are intact. Patient has moist mucous membranes. NECK: Supple. Trachea midline CHEST/LUNGS: Clear to auscultation. There is no respiratory distress noted. HEART/CARDIOVASCULAR: Regular. There is no tachycardia. There is no gallop rub or murmur. ABDOMEN: Abdomen is soft, nontender. Patient has normal bowel sounds. There is no abdominal distention. SKIN: There is no rash. There is no edema. There is no diaphoresis. NEURO: The patient is awake, alert, and oriented. The patient is cooperative. The patient has normal speech MUSCULOSKELETAL: There is no evidence of acute injury. ED Course Vital Signs 06/16/20 06/16/20 06/16/20 11:17 16:57 20:00 Temperature 98.3 F Pulse Rate 102 H 122 H 110 H Respiratory 20 22 Rate Blood Pressure 134/80 Blood Pressure 211/134 146/86 [Right] O2 Sat by Pulse 96 93 99 Oximetry 06/17/20 00:00 Temperature Pulse Rate 111 H Respiratory Rate Blood Pressure Blood Pressure [Right] O2 Sat by Pulse 100 Oximetry ED Medical Decision Making - Lab Data Result diagrams: 06/16/20 11:35 06/16/20 11:35 Laboratory Tests 06/16/20 06/16/20 06/16/20 11:35 11:35 14:25 WBC 13.0 H RBC 2.68 L Hgb 6.6 L Hct 21.2 L MCV 79 L MCH 24 L MCHC 31 L RDW 19.9 H Plt Count 250 Lymph % (Auto) 5.0 L Emmons % (Auto) 6.5 Eos % (Auto) 0.2 Baso % (Auto) 0.0 Lymph # (Auto) 0.6 L Emmons # (Auto) 0.8 Eos # (Auto) 0.0 Baso # (Auto) 0.0 Seg Neutrophils % 88.3 H Seg Neutrophils # 11.5 H Sodium 138 Potassium 3.5 L Chloride 100.7 Carbon Dioxide 27 Anion Gap 14 BUN 15 Creatinine 0.9 Estimated GFR > 60 BUN/Creatinine Ratio 17 Glucose 139 H Calcium 7.4 L Total Bilirubin 0.20 AST 18 ALT 42 Alkaline Phosphatase 141 H Troponin T < 0.010 < 0.010 Total Protein 6.1 L Albumin 3.2 L Albumin/Globulin Ratio 1.1 06/17/20 03:24 WBC RBC Hgb Hct MCV MCH MCHC RDW Plt Count Lymph % (Auto) Emmons % (Auto) Eos % (Auto) Baso % (Auto) Lymph # (Auto) Emmons # (Auto) Eos # (Auto) Baso # (Auto) Seg Neutrophils % Seg Neutrophils # Sodium Potassium Chloride Carbon Dioxide Anion Gap BUN Creatinine Estimated GFR BUN/Creatinine Ratio Glucose Calcium Total Bilirubin AST ALT Alkaline Phosphatase Troponin T < 0.010 Total Protein Albumin Albumin/Globulin Ratio - EKG Data -: EKG Interpreted by Me EKG shows normal: sinus rhythm Rate: normal - EKG Data When compared to previous EKG there are: no significant change Interpretation: other (No ischemic changes seen) - Radiology Data Radiology results: report reviewed (CT chest), image reviewed (CT chest) [facility] [address] [place] [address] Cat Scan Report Signed Patient: NAVARRO YAN MR #: [id number] : 1955 Acct:[id number] Age/Sex: 64 / M ADM Date: 06/16/20 Loc: ED Attending Dr: Ordering Physician: TUSHAR TRUONG MD Date of Service: 06/17/20 Procedure(s): CT angio chest Accession Number(s): [id number] cc: TUSHAR TRUONG MD CTA CHEST WITH CONTRAST INDICATION / CLINICAL INFORMATION: Chest pain and pleurisy. TECHNIQUE: Axial CT images were obtained through the chest after injection of 100 cc Omnipaque 350 IV contrast. 3 plane MIP and/or 3D reconstructions were produced. All CT scans at this location are performed using CT dose reduction for ALARA by means of automated exposure control. COMPARISON: 04/08/20. FINDINGS: PULMONARY ARTERIES: There is excellent opacification of the pulmonary arterial system bilaterally without intraluminal filling defect to suggest acute PTE. THORACIC AORTA: Mild atherosclerotic calcification without acute abnormality. HEART: No significant abnormality. CORONARY ARTERY CALCIFICATION: Minimal. MEDIASTINUM / CHARISSA: No significant abnormality. PLEURA: No pleural effusion. No pneumothorax. LUNGS: Confluent centrilobular emphysema. Substantial paraseptal emphysema. Old calcified granulomatous disease in the right upper lobe. ADDITIONAL FINDINGS: None. UPPER ABDOMEN: Focal calcification in the liver is likely granulomatous and has not changed. SKELETAL STRUCTURES: No significant osseous abnormality. IMPRESSION: 1. No CT evidence for pulmonary embolism. 2. Confluent centrilobular emphysema Signer Name: Juan Egan MD Signed: 06/17/2020 4:21 AM Workstation Name: [id number] Transcribed By: RT Dictated By: Juan Egan MD Electronically Authenticated By: Juan Egan MD Signed Date/Time: 06/17/20420 DD/ 5 TD/TT: - Differential Diagnosis ACS, PE, pericarditis, COPD exacerbation Critical care attestation.: If time is entered above; I have spent that time in minutes in the direct care of this critically ill patient, excluding procedure time. ED Disposition Clinical Impression: Atypical chest pain Disposition: DC-01 TO HOME OR SELFCARE Is pt being admited?: No Does the pt Need Aspirin: No Condition: Stable Instructions: Nonspecific Chest Pain, Adult Additional Instructions: Return to the emergency department should you develop worsening symptoms, inability to tolerate food or liquids, high fever or any other concerns Prescriptions: Ibuprofen [Motrin 800 MG tab] 800 mg PO Q8HR PRN #20 tablet PRN Reason: Pain, Moderate (4-6) Referrals: PRIMARY CARE,MD [Primary Care Provider] - 3-5 Days Time of Disposition: 04:40
--- NOTE | 2020-06-17 04:25 | Cat Scan Report ---
CTA CHEST WITH CONTRAST INDICATION / CLINICAL INFORMATION: Chest pain and pleurisy. TECHNIQUE: Axial CT images were obtained through the chest after injection of 100 cc Omnipaque 350 IV contrast. 3 plane MIP and/or 3D reconstructions were produced. All CT scans at this location are per formed using CT dose reduction for ALARA by means of automated exposure control. COMPARISON: 04/08/20. FINDINGS: PULMONARY ARTERIES: There is excellent opacification of the pulmonary arterial system bilaterally wit hout intraluminal filling defect to suggest acute PTE. THORACIC AORTA: Mild atherosclerotic calcification without acute abnormality. HEART: No significant abnormality. CORONARY ARTERY CALCIFICATION: Minimal. MEDIASTINUM / CHARISSA: No significant abnormality. PLEURA: No pleural effusion. No pneumothorax. LUNGS: Confluent centrilobular emphysema. Substantial paraseptal emphysema. Old calcified granulomato us disease in the right upper lobe. ADDITIONAL FINDINGS: None. UPPER ABDOMEN: Focal calcification in the liver is likely granulomatous and has not changed. SKELETAL STRUCTURES: No significant osseous abnormality. IMPRESSION: 1. No CT evidence for pulmonary embolism. 2. Confluent centrilobular emphysema Signer Name: Juan Egan MD Signed: 06/17/2020 4:21 AM Workstation Name: [id number]
[2020-06-17 05:05] VITALS: BP 139/83
[2020-06-17] MEDS ORDERED: IPRATROPIUM/ALBUTEROL SULFATE 3 ML AMPUL.NEB IH ONE (07:40)
== END 2020-06-17 11:00 | disposition home or self-care (01) ==
LOC: ED 11:09
DX: R07.89 Other chest pain (principal); R06.02 Shortness of breath; I10 Essential (primary) hypertension; J44.9 Chronic obstructive pulmonary disease, unspecified; Z21 Asymptomatic human immunodeficiency virus [HIV] infection status; F14.10 Cocaine abuse, uncomplicated; Z79.1 Long term (current) use of non-steroidal anti-inflammatories (NSAID); Z79.899 Other long term (current) drug therapy
CPT/HCPCS: 36415; 71046; 71275; 80053; 84484; 85025; 93005; 94640; 99285; Q9967; 94644

== ENCOUNTER 2020-07-10 11:36 | Inpatient (IN) | payer MEDICARE ==
[2020-07-10] MEDS ORDERED: IPRATROPIUM 0.02% NEBU 2.5 ML IH ONE ×2 (11:41→13:54)
[2020-07-10] MEDS ORDERED: ALBUTEROL 2.5 MG/3 ML NEBU IH ONE ×2 (11:41→13:54)
[2020-07-10] MEDS ORDERED: ONDANSETRON 4 MG/2 ML INJ IV ONE (11:42)
[2020-07-10] MEDS ORDERED: fentaNYL 100 MCG/2 ML INJ IV ONE (11:42)
[2020-07-10] MEDS ORDERED: MAGNESIUM SULFATE 2 GM/50 ML BAG IV ONE (11:42)
[2020-07-10] MEDS ORDERED: methylPREDNISolone Sod Succinate 125 MG/2 ML INJ IV ONE (11:42)
[2020-07-10] MEDS ORDERED: ASPIRIN 325 MG TAB PO ONE (11:43)
--- NOTE | 2020-07-10 11:47 | Emergency Department Report ---
HPI - HPI HPI: Room 20 The patient is a 64-year-old male present with a chief complaint of shortness of breath and chest pain. Patient states his symptoms began last night. Patient denies history of cough or fever. The patient states his chest pain is been intermittent. Patient currently gives his pain a score of 9/10. The patient states he has not used cocaine in approximately 1 month <TUSHAR TRUONG - Last Filed: 07/10/20 15:58> <REGINE WING - Last Filed: 07/10/20 17:40> - General Chief Complaint: Dyspnea/Respdistress Time Seen by Provider: 07/10/20 11:41 ED Past Medical Hx - Past Medical History Hx Hypertension: Yes Hx Pulmonary Embolism: Yes Hx Asthma: Yes Hx COPD: Yes (Home O2) Hx HIV: Yes Additional medical history: Elevated Cholesterol & Chronic back pain. - Surgical History Past Surgical History?: No - Social History Smoking Status: Never Smoker Substance Use Type: Cocaine (Per patient none x1 month) <TUSHAR TRUONG - Last Filed: 07/10/20 15:58> <REGINE WING - Last Filed: 07/10/20 17:40> - Medications Home Medications: Home Medications Medication Instructions Recorded Confirmed Last Taken Type AtorvaSTATin [Lipitor] 40 mg PO QHS tablet 04/11/20 05/12/20 Unknown Rx Docusate Sodium [Colace CAP] 100 mg PO BID PRN #60 capsule 04/27/20 05/12/20 Unknown Rx ALPRAZolam [Xanax TAB] 0.5 mg PO BID #16 tablet 05/13/20 Unknown Rx Calcium Carbonate [Calcium 400 mg PO QDAY 30 Days #30 tab.chew 05/13/20 Unknown Rx Carbonate 400MG CHEW] Ferrous Sulfate [Feosol 325 MG tab] 325 mg PO QDAY 60 Days #60 tablet 05/13/20 Unknown Rx Pantoprazole [Protonix TAB] 40 mg PO QDAY 30 Days #30 tablet 05/13/20 Unknown Rx Aspirin EC [Halfprin EC] 81 mg PO QDAY #100 tablet. 05/15/20 Unknown Rx dilTIAZem CD [Cardizem CD] 240 mg PO QDAY #30 capsule 05/15/20 Unknown Rx Ipratropium/Albuterol Sulfate 1 ampul IH TIDRT #50 ampul.neb 05/16/20 Unknown Rx [DUONEB *Not for PRN Use*] Albuterol Mdi (or & Nicu Only) 2 puff IH QID PRN #8.5 gram 05/24/20 Unknown Rx [ProAir HFA Inhaler] Azithromycin [Zithromax Z-MYNOR] 0 mg PO DAILY #6 tab 05/24/20 Unknown Rx guaiFENesin [Guaifenesin] 400 mg PO Q4H #20 tablet 05/24/20 Unknown Rx Acetaminophen [8 Hour 650 mg PO Q6HR PRN #20 tablet.er 05/31/20 Unknown Rx Acetaminophen] Albuterol Mdi (or & Nicu Only) 2 puff IH QID PRN #1 inhalation 05/31/20 Unknown Rx [ProAir HFA Inhaler] Montelukast [Singulair] 10 mg PO QHS #30 tablet 05/31/20 Unknown Rx Prednisone [predniSONE 10 mg 10 mg PO .TAPER #1 tab.ds.pk 05/31/20 Unknown Rx (6-Day Pack, 21 Tabs)] Albuterol Sulfate [Albuterol 0.63% 0.63 mg IH TID PRN #90 ml 06/17/20 Unknown Rx NEBS] Ibuprofen [Motrin 800 MG tab] 800 mg PO Q8HR PRN #20 tablet 06/17/20 Unknown Rx Albuterol Sulfate [Proventil Hfa] 6.7 gm IH QID PRN #1 hfa.aer.ad 07/10/20 Unknown Rx Prednisone [predniSONE 10 mg 10 mg PO .TAPER #1 tab.ds.pk 07/10/20 Unknown Rx (6-Day Pack, 21 Tabs)] traMADoL [Ultram] 50 mg PO Q6HR PRN #10 tablet 07/10/20 Unknown Rx ED Review of Systems ROS: Stated complaint: RICKY/CP Other details as noted in HPI Constitutional: denies: fever Eyes: denies: eye pain ENT: denies: throat pain Respiratory: shortness of breath Cardiovascular: chest pain Endocrine: no symptoms reported Gastrointestinal: denies: nausea, vomiting Genitourinary: denies: dysuria Musculoskeletal: denies: back pain Neurological: denies: headache <TUSHAR TRUONG K - Last Filed: 07/10/20 15:58> ROS: Stated complaint: RICKY/CP Other details as noted in HPI <REGINE WING - Last Filed: 07/10/20 17:40> Physical Exam - Physical Exam Physical Exam: GENERAL: The patient is well-developed well-nourished male lying on stretcher not appearing to be in acute distress. [] HEENT: Normocephalic. Atraumatic. Extraocular motions are intact. Patient has moist mucous membranes. NECK: Supple. Trachea midline CHEST/LUNGS: Diminished with occasional faint expiratory wheezing. Increased work of breathing. HEART/CARDIOVASCULAR: Regular. There is no tachycardia. There is no gallop rub or murmur. ABDOMEN: Abdomen is soft, nontender. Patient has normal bowel sounds. There is no abdominal distention. SKIN: There is no rash. There is no edema. There is no diaphoresis. NEURO: The patient is awake, alert, and oriented. The patient is cooperative. The patient has no focal neurologic deficits. The patient has normal speech MUSCULOSKELETAL: There is no evidence of acute injury. <TUSHAR TRUONG - Last Filed: 07/10/20 15:58> - Physical Exam Vital Signs: Vital Signs 07/10/20 07/10/20 07/10/20 11:47 11:49 11:50 Temperature 98.9 F Pulse Rate 92 H Pulse Rate [ 86 Posterior Bilateral Throughout] Respiratory 20 Rate Respiratory 18 Rate [Posterior Bilateral Throughout] Blood Pressure Blood Pressure 131/84 [Right] O2 Sat by Pulse 94 Oximetry 07/10/20 07/10/20 07/10/20 12:15 12:30 13:00 Temperature Pulse Rate 95 H 83 Pulse Rate [ Posterior Bilateral Throughout] Respiratory 24 30 H 25 H Rate Respiratory Rate [Posterior Bilateral Throughout] Blood Pressure 128/95 132/81 113/62 Blood Pressure [Right] O2 Sat by Pulse 100 100 Oximetry 07/10/20 07/10/20 13:11 14:13 Temperature Pulse Rate Pulse Rate [ 90 Posterior Bilateral Throughout] Respiratory 22 Rate Respiratory 18 Rate [Posterior Bilateral Throughout] Blood Pressure Blood Pressure [Right] O2 Sat by Pulse 97 Oximetry <REGINE WING - Last Filed: 07/10/20 17:40> ED Course - Reevaluation(s) Reevaluation #1: 07/10/20 15:58 Patient SPO2 86% on room air. Will obtain ABG and provide supplemental O2. Patient will be admitted to the hospital for further management <TUSHAR TRUONG - Last Filed: 07/10/20 15:58> Vital Signs 07/10/20 07/10/20 07/10/20 11:47 11:49 11:50 Temperature 98.9 F Pulse Rate 92 H Pulse Rate [ 86 Posterior Bilateral Throughout] Respiratory 20 Rate Respiratory 18 Rate [Posterior Bilateral Throughout] Blood Pressure Blood Pressure 131/84 [Right] O2 Sat by Pulse 94 Oximetry 07/10/20 07/10/20 07/10/20 12:15 12:30 13:00 Temperature Pulse Rate 95 H 83 Pulse Rate [ Posterior Bilateral Throughout] Respiratory 24 30 H 25 H Rate Respiratory Rate [Posterior Bilateral Throughout] Blood Pressure 128/95 132/81 113/62 Blood Pressure [Right] O2 Sat by Pulse 100 100 Oximetry 07/10/20 07/10/20 13:11 14:13 Temperature Pulse Rate Pulse Rate [ 90 Posterior Bilateral Throughout] Respiratory 22 Rate Respiratory 18 Rate [Posterior Bilateral Throughout] Blood Pressure Blood Pressure [Right] O2 Sat by Pulse 97 Oximetry <REGINE WING - Last Filed: 07/10/20 17:40> ED Medical Decision Making - Lab Data Result diagrams: 07/10/20 12:03 07/10/20 12:03 - EKG Data -: EKG Interpreted by Me EKG shows normal: sinus rhythm Rate: normal - EKG Data When compared to previous EKG there are: no significant change Interpretation: other (No ischemic changes seen) - Radiology Data Radiology results: report reviewed (Chest x-ray), image reviewed (Chest x-ray) interpreted by me: Chest x-ray-no definite focal infiltrates, no pneumothorax. No foreign body seen [facility] [address] [place] [address] XRay Report Signed Patient: NAVARRO YNA MR #: [id number] : 1955 Acct:[id number] Age/Sex: 64 / M ADM Date: 07/10/20 Loc: ED Attending Dr: Ordering Physician: TUSHAR TRUONG MD Date of Service: 07/10/20 Procedure(s): XR chest 1V ap Accession Number(s): [id number] cc: TUSHAR TRUONG MD Fluoro Time In Minutes: CHEST 1 VIEW 07/10/2020 12:08 PM INDICATION / CLINICAL INFORMATION: Shortness of breath. COMPARISON: None available. FINDINGS: SUPPORT DEVICES: None. HEART / MEDIASTINUM: No significant abnormality. LUNGS / PLEURA: Mild pulmonary hyperinflation. No significant pulmonary or pleural abnormality. No pneumothorax. ADDITIONAL FINDINGS: No significant additional findings. IMPRESSION: No acute cardiopulmonary abnormality. Stable emphysema. Signer Name: Akua Monzon MD Signed: 07/10/2020 12:37 PM Workstation Name: [id number]- [id number] Transcribed By: SS Dictated By: AKUA MONZON Electronically Authenticated By: AKUA MONZON Signed Date/Time: 07/10/201236 DD/ 36 TD/TT: Print Cancel - Differential Diagnosis COPD exacerbation, ACS, pericarditis, GERD <TUSHAR TRUONG - Last Filed: 07/10/20 15:58> - Lab Data Result diagrams: 07/10/20 12:03 07/10/20 12:03 - Medical Decision Making VQ scan showed intermediate probability. Patient oxygen dropped to 91% on room air. Patient restarted on 2 L of oxygen and his oxygen saturation went up to 95%. I discussed the patient with Dr. Virk, he agreed to admit the patient to medical service for further management. <REGINE WING - Last Filed: 07/10/20 17:40> Critical care attestation.: If time is entered above; I have spent that time in minutes in the direct care of this critically ill patient, excluding procedure time. <TUSHAR TRUONG - Last Filed: 07/10/20 15:58> Critical Care Time: Yes Critical care time in (mins) excluding proc time.: 30 Critical care attestation.: If time is entered above; I have spent that time in minutes in the direct care of this critically ill patient, excluding procedure time. <REGINE WING - Last Filed: 07/10/20 17:40> ED Disposition Is pt being admited?: Yes Does the pt Need Aspirin: Yes <TUSHAR TRUONG - Last Filed: 07/10/20 15:58> <REGINE WING - Last Filed: 07/10/20 17:40> Clinical Impression: COPD exacerbation, Pulmonary embolism Disposition: - OP ADMIT IP TO THIS HOSP Condition: Fair Instructions: Nonspecific Chest Pain, Adult, Chronic Obstructive Pulmonary Disease (ED) Additional Instructions: Return to the emergency department should you develop worsening symptoms, inability to tolerate food or liquids, high fever or any other concerns Prescriptions: Prednisone [predniSONE 10 mg (6-Day Pack, 21 Tabs)] 10 mg PO .TAPER #1 tab.ds.pk Albuterol Sulfate [Proventil Hfa] 6.7 gm IH QID PRN #1 hfa.aer.ad PRN Reason: Wheezing traMADoL [Ultram] 50 mg PO Q6HR PRN #10 tablet PRN Reason: Pain Referrals: [facility] [Provider Group] - 3-5 Days
[2020-07-10 12:33] LABS: Basophils % (Auto) 0.2 % (0.0-1.8); Eosinophils # (Auto) 0.1 K/mm3 (0.0-0.4); Eosinophils % (Auto) 1.3 % (0.0-4.3); Hematocrit 29.7 % (35.5-45.6); Hemoglobin 9.4 gm/dl (11.8-15.2); Lymphocytes # (Auto) 0.8 K/mm3 (1.2-5.4); Lymphocytes % (Auto) 8.9 % (13.4-35.0); Mean Corpuscular HGB Conc 32 % (32-34); Mean Corpuscular Volume 81 fl (84-94); Monocytes # (Auto) 0.8 K/mm3 (0.0-0.8); Monocytes % (Auto) 8.5 % (0.0-7.3); Platelet Count 310 K/mm3 (140-440); Red Blood Count 3.69 M/mm3 (3.65-5.03); Red Cell Distribution Width 19.6 % (13.2-15.2)
--- NOTE | 2020-07-10 12:42 | XRay Report ---
CHEST 1 VIEW 07/10/2020 12:08 PM INDICATION / CLINICAL INFORMATION: Shortness of breath. COMPARISON: None available. FINDINGS: SUPPORT DEVICES: None. HEART / MEDIASTINUM: No significant abnormality. LUNGS / PLEURA: Mild pulmonary hyperinflation. No significant pulmonary or pleural abnormality. No pn eumothorax. ADDITIONAL FINDINGS: No significant additional findings. IMPRESSION: No acute cardiopulmonary abnormality. Stable emphysema. Signer Name: Joselo Monzon MD Signed: 07/10/2020 12:37 PM Workstation Name: [id number]
[2020-07-10 12:43] LABS: INR 1.05 (0.87-1.13)
[2020-07-10 12:59] LABS: BUN/Creatinine Ratio 13; Blood Urea Nitrogen 13 mg/dL (9-20); Calcium 7.1 mg/dL (8.4-10.2); Hemolysis Index 0
[2020-07-10] MEDS ORDERED: HYDROcodone/ACETAMINOPHEN 5-325 MG TAB PO ONE (15:35)
--- NOTE | 2020-07-10 16:39 | Nuclear Medicine Report ---
NUCLEAR MEDICINE PERFUSION LUNG SCAN INDICATION / CLINICAL INFORMATION: Chest pain, shortness of breath. TECHNIQUE: 4.7 mCi of Tc-99m MAA were given by IV. COMPARISON: Chest radiograph dated chest x-ray done earlier on 07/10/2020. FINDINGS: PERFUSION: There are bilateral mild nonsegmental defects in both mid and upper lungs. ADDITIONAL FINDINGS: None. IMPRESSION: 1. Intermediate probability for pulmonary embolism. Signer Name: Omega Mcintyre MD Signed: 07/10/2020 4:35 PM Workstation Name: [email or web address]
--- NOTE | 2020-07-10 17:41 | History and Physical Report ---
History of Present Illness Chief complaint: It is hard to breathe and my chest is sore History of present illness: 64 YO Male with HTN, COPD, cocaine Dependence, Chronic Respiratory Failure on Home Oxygen, HIV, Asthma, HLD, PE not currently taking therapeutic anticoagulation, LDD complicated by Chronic Pain Syndrome presents to ED for evaluation. Patient reports "it is hard to breathe and my chest feels sore". Patient states that he has experienced shortness of breath over the past 1 day with persistently worsening symptoms over the same timeframe. Patient states that his shortness of breath has resulted in and chest tightness. EMS was notified and upon arrival the patient was found to be in distress and s ubsequently transported to [facility] for further care and evaluation of the aforementioned symptoms. The patient was seen and evaluated in the emergency department. All lab and imaging studies reviewed. The patient was found to be in respiratory distress and using accessory muscles to breathe with inability to speak in complete sentences. Patient was able to ambulate 5 feet continuously without worsening shortness of breath. Patient was found to have a pulse oximetry of 84% with exertion which is consistent with acute hypoxemic respiratory failure secondary to COPD exacerbation. Patient treated with supplemental oxygen with mild improvement in symptoms. Patient admitted to medical floor due to increased risk of worsening symptoms. Patient is unable to speak in complete sentences and uses head gestures to deny fever, chills, palpitation, skin rash, recent ill contacts, or known exposure to COVID-19. Prior admission on 05/18/2020 reviewed. All medication listed at time of admission has been reconciled. Advanced care planning conducted in ED. Past History Past Medical History: COPD, HIV/AIDS, hypertension, hyperlipidemia Past Surgical History: No surgical history, Other (Reviewed) Social history: single, Lives alone. denies: smoking, alcohol abuse, prescription drug abuse Family history: hypertension Medications and Allergies Allergies Allergy/AdvReac Type Severity Reaction Status Date / Time No Known Allergies Allergy Verified 05/15/20 09:18 Home Medications Medication Instructions Recorded Confirmed Last Taken Type AtorvaSTATin [Lipitor] 40 mg PO QHS tablet 04/11/20 05/12/20 Unknown Rx Docusate Sodium [Colace CAP] 100 mg PO BID PRN #60 capsule 04/27/20 05/12/20 Unknown Rx ALPRAZolam [Xanax TAB] 0.5 mg PO BID #16 tablet 05/13/20 Unknown Rx Calcium Carbonate [Calcium 400 mg PO QDAY 30 Days #30 tab.chew 05/13/20 Unknown Rx Carbonate 400MG CHEW] Ferrous Sulfate [Feosol 325 MG tab] 325 mg PO QDAY 60 Days #60 tablet 05/13/20 Unknown Rx Pantoprazole [Protonix TAB] 40 mg PO QDAY 30 Days #30 tablet 05/13/20 Unknown Rx Aspirin EC [Halfprin EC] 81 mg PO QDAY #100 tablet.dr 05/15/20 Unknown Rx dilTIAZem CD [Cardizem CD] 240 mg PO QDAY #30 capsule 05/15/20 Unknown Rx Ipratropium/Albuterol Sulfate 1 ampul IH TIDRT #50 ampul.neb 05/16/20 Unknown Rx [DUONEB *Not for PRN Use*] Albuterol Mdi (or & Nicu Only) 2 puff IH QID PRN #8.5 gram 05/24/20 Unknown Rx [ProAir HFA Inhaler] Azithromycin [Zithromax Z-MYNOR] 0 mg PO DAILY #6 tab 05/24/20 Unknown Rx guaiFENesin [Guaifenesin] 400 mg PO Q4H #20 tablet 05/24/20 Unknown Rx Acetaminophen [8 Hour 650 mg PO Q6HR PRN #20 tablet.er 05/31/20 Unknown Rx Acetaminophen] Albuterol Mdi (or & Nicu Only) 2 puff IH QID PRN #1 inhalation 05/31/20 Unknown Rx [ProAir HFA Inhaler] Montelukast [Singulair] 10 mg PO QHS #30 tablet 05/31/20 Unknown Rx Prednisone [predniSONE 10 mg 10 mg PO .TAPER #1 tab.ds.pk 05/31/20 Unknown Rx (6-Day Pack, 21 Tabs)] Albuterol Sulfate [Albuterol 0.63% 0.63 mg IH TID PRN #90 ml 06/17/20 Unknown Rx NEBS] Ibuprofen [Motrin 800 MG tab] 800 mg PO Q8HR PRN #20 tablet 06/17/20 Unknown Rx Albuterol Sulfate [Proventil Hfa] 6.7 gm IH QID PRN #1 hfa.aer.ad 07/10/20 Unknown Rx Prednisone [predniSONE 10 mg 10 mg PO .TAPER #1 tab.ds.pk 07/10/20 Unknown Rx (6-Day Pack, 21 Tabs)] traMADoL [Ultram] 50 mg PO Q6HR PRN #10 tablet 07/10/20 Unknown Rx Review of Systems Constitutional: no weight loss, no weight gain, no fever, no chills Ears, nose, mouth and throat: no ear pain, no ear discharge, no decreased hearing, no nose pain, no nasal discharge Cardiovascular: no chest pain, no orthopnea, no syncope Respiratory: shortness of breath, dyspnea on exertion, no cough Gastrointestinal: no abdominal pain, no nausea, no vomiting, no diarrhea, no constipation Genitourinary Male: no hematuria, no flank pain, no discharge, no urinary fr equency, no urinary hesitancy Rectal: no pain, no incontinence, no bleeding Musculoskeletal: no neck stiffness, no neck pain, no shooting arm pain, no low back pain Integumentary: no rash, no pruritis, no redness, no sores, no wounds, no jaundice Neurological: no transient paralysis, no paralysis, no weakness, no numbness, no tingling, no seizures Psychiatric: no anxiety, no memory loss, no sleep disturbances, no insomnia, no change in libido Endocrine: no cold intolerance, no heat intolerance, no polyphagia, no polydipsia Hematologic/Lymphatic: no easy bruising, no easy bleeding Allergic/Immunologic: no allergic rhinitis, no wheezing Exam - Constitutional Vitals: Temp Pulse Resp BP Pulse Ox 98.9 F 90 18 113/62 97 07/10/20 11:47 07/10/20 14:13 07/10/20 14:13 07/10/20 13:00 07/10/20 13:11 General appearance: Present: mild distress - EENT Eyes: Present: PERRL ENT: hearing intact, clear oral mucosa - Neck Neck: Present: supple, normal ROM - Respiratory Respiratory effort: normal, labored, accessory muscle use, stridor Respiratory: bilateral: diminished, rhonchi - Cardiovascular Heart Sounds: Present: S1 & S2. Absent: rub, click - Extremities Extremities: pulses symmetrical, No edema Peripheral Pulses: within normal limits - Abdominal General gastrointestinal: Present: soft, non-tender, non-distended, normal bowel sounds Male genitourinary: Present: normal - Integumentary Integumentary: Present: clear, warm, dry - Musculoskeletal Musculoskeletal: gait normal, strength equal bilaterally - Psychiatric Psychiatric: appropriate mood/affect, intact judgment & insight - Neurologic Neurologic: CNII-XII intact, moves all extremities HEART Score - HEART Score Troponin: Troponin T < 0.010 ng/mL (0.00-0.029) 07/10/20 14:56 Results - Labs CBC & Chem 7: 07/10/20 12:03 07/10/20 12:03 Labs: Abnormal lab results 07/10/20 07/10/20 07/10/20 Range/Units 12:03 12:03 12:03 Hgb 9.4 L (11.8-15.2) gm/dl Hct 29.7 L (35.5-45.6) % MCV 81 L (84-94) fl MCH 25 L (28-32) pg RDW 19.6 H (13.2-15.2) % Lymph % (Auto) 8.9 L (13.4-35.0) % [place] % (Auto) 8.5 H (0.0-7.3) % Lymph # (Auto) 0.8 L (1.2-5.4) K/mm3 Seg Neutrophils % 81.1 H (40.0-70.0) % D-Dimer 274.10 H (0-234) ng/mlDDU Chloride 97.1 L (98-107) mmol/L Carbon Dioxide 34 H (22-30) mmol/L Calcium 7.1 L (8.4-10.2) mg/dL Assessment and Plan - Patient Problems (1) Acute respiratory failure with hypoxia Current Visit: No Status: Acute Plan to address problem: Supplemental oxygen, pulse oximetry, nebulizer therapy, chest x-ray, VQ scan, pulmonary toilet. (2) HIV (human immunodeficiency virus infection) Current Visit: Yes Status: Acute Qualifiers: HIV symptom status: asymptomatic, with no history of HIV-related illness Qualified Code(s): Z21 - Asymptomatic human immunodeficiency virus [HIV] infection status Plan to address problem: Outpatient infectious disease follow-up, (3) COPD exacerbation Current Visit: Yes Status: Acute Plan to address problem: Supplemental oxygen, pulse oximetry, chest x-ray, nebulizer therapy, IV steroid therapy, supportive care. (4) Cocaine dependence Current Visit: Yes Status: Acute Qualifiers: Substance use status: uncomplicated Qualified Code(s): F14.20 - Cocaine dependence, uncomplicated Plan to address problem: Supportive care, behavior change counseling+15 minutes., outpatient drug dependence follow-up. (5) DVT prophylaxis Current Visit: Yes Status: Acute Plan to address problem: SCD to bilateral lower extremities while in bed, patient is ambulatory (6) Advance care planning Current Visit: Yes Status: Acute Plan to address problem: Disease education conducted, care plan discussed, diagnoses discussed, prognosis discussed, patient is full code, patient knowledges understanding and agreement with care plan. +30 minutes.
[2020-07-10] MEDS ORDERED: ALBUTEROL 2.5 MG/3 ML NEBU IH PRN (18:20)
[2020-07-10] MEDS ORDERED: ONDANSETRON 4 MG/2 ML INJ IV PRN (18:20)
[2020-07-10] MEDS ORDERED: DOCUSATE SODIUM 100 MG CAP PO PRN (18:22)
[2020-07-10] MEDS ORDERED: ACETAMINOPHEN 650 MG PO PRN (18:22)
[2020-07-10] MEDS ORDERED: GUAIFENESIN 400 MG PO SCH (18:30)
[2020-07-10] MEDS: methylPREDNISolone Sod Succinate 40 MG/1 ML INJ IV SCH (21:37)
[2020-07-10] MEDS: MONTELUKAST 10 MG TAB PO SCH (21:37)
[2020-07-10] MEDS: ALPRAZolam 0.5 MG TAB PO SCH (21:37)
[2020-07-10] MEDS: guaiFENesin 200 MG TAB PO SCH (21:37)
[2020-07-10] MEDS: IPRATROPIUM/ALBUTEROL SULFATE 3 ML AMPUL.NEB IH SCH (21:55)
[2020-07-11] MEDS: guaiFENesin 200 MG TAB PO SCH ×6 (02:10→21:41)
[2020-07-11] MEDS: IPRATROPIUM/ALBUTEROL SULFATE 3 ML AMPUL.NEB IH SCH ×4 (02:12→20:45)
[2020-07-11 05:51] LABS: BUN/Creatinine Ratio 20; Blood Urea Nitrogen 24 mg/dL (9-20); Calcium 6.7 mg/dL (8.4-10.2); Hemolysis Index 0
[2020-07-11] MEDS: methylPREDNISolone Sod Succinate 40 MG/1 ML INJ IV SCH ×3 (05:55→21:41)
[2020-07-11] MEDS ORDERED: ALBUTEROL 2.5 MG/3 ML NEBU IH PRN (08:52)
[2020-07-11] MEDS: ALPRAZolam 0.5 MG TAB PO SCH ×2 (09:41→21:41)
[2020-07-11] MEDS: PANTOPRAZOLE 40 MG TAB PO SCH (09:41)
[2020-07-11] MEDS: FERROUS SULFATE 325 MG TAB PO SCH (09:41)
[2020-07-11] MEDS: ASPIRIN EC 81 MG TAB PO SCH (09:41)
[2020-07-11] MEDS: CALCIUM CARBONATE 500 MG TAB CHEW PO SCH (09:41)
[2020-07-11] MEDS: dilTIAZem CD 240 MG CAP PO SCH (09:54)
[2020-07-11] MEDS ORDERED: CALCIUM CARBONATE 400 MG PO SCH (10:00)
--- NOTE | 2020-07-11 10:28 | Electrocardiograph Report ---
[facility] Test Date: 2020-07-10 Test Time: 16:05:06 Pat Name: NAVARRO YAN Department: Room: A391 1 Gender: M [employer]ing Carrier: KOMAL : 1955 Requested By: TUSHAR TRUONG Order Number: [id number] Reading MD: Alberto Hernandez Measurements Intervals [place] Rate: 91 P: 84 MS: 140 QRS: -15 QRSD: 95 T: 71 QT: 397 QTc: 484 Interpretive Statements Sinus rhythm Multiple premature complexes, vent & supraven Right atrial enlargement Compared to ECG 06/16/2020 11:28:30 Low QRS voltage now present Electronically Signed On 07-11-2020 10:28:29 EDT by Alberto Hernandez
--- NOTE | 2020-07-11 11:18 | Progress Note ---
Assessment and Plan Assessment and plan: -- Acute respiratory failure with hypoxia Current Visit: No Status: Acute Plan to address problem: Supplemental oxygen, pulse oximetry, nebulizer therapy, chest x-ray, VQ scan, pulmonary toilet. --h/o HIV (human immunodeficiency virus infection) Outpatient follow-up with healthcare department or infectious disease office, --h/o Atherosclerotic coronary artery disease [facility] 08/2019, nonobstructive coronaries Negative stress test 07/2019 EF 60 to 65%, continue current cardiac medications -- COPD exacerbation Supplemental oxygen, pulse oximetry, chest x-ray, nebulizer therapy, IV steroid therapy, supportive care. --h/o Cocaine dependence Supportive care, behavior change counseling+15 minutes., outpatient drug dependence follow-up. Strongly advised to quit recreational drug use Patient verbalized understanding --DVT prophylaxis SCD to bilateral lower extremities while in bed, patient is ambulatory -- Advance care planning Disease education conducted, care plan discussed, diagnoses discussed, prognosis discussed, patient is full code, patient knowledges understanding and agreement with care plan. +30 minutes. Closely monitor the patient and adjust management as needed Plan of care reviewed with the patient and her nurse 07/11/2020; patient complains of mild intermittent chest pain, patient had extensive negative cardiac work-up last year Managed symptomatically, pain medications, Protonix, closely monitor cardiac enzymes, cardiology evaluation if needed History Interval history: I have seen and examined the patient at the bedside this morning Patient's chart and medications reviewed Patient feels slightly better mild agitation Vital signs noted Hospitalist Physical - Constitutional Vitals: Temp Pulse Resp BP Pulse Ox 97.7 F 78 22 105/61 95 07/11/20 04:30 07/11/20 09:54 07/11/20 08:59 07/11/20 09:54 07/11/20 08:59 General appearance: Present: mild distress - EENT Eyes: Present: PERRL, EOM intact - Neck Neck: Present: supple, normal ROM - Respiratory Respiratory effort: normal Respiratory: bilateral: diminished, rhonchi, negative: rales, wheezing - Cardiovascular Rhythm: regular Heart Sounds: Present: S1 & S2 - Extremities Extremities: no ischemia, No edema - Abdominal General gastrointestinal: soft, non-tender, non-distended, normal bowel sounds - Integumentary Integumentary: Present: clear, warm - Psychiatric Psychiatric: appropriate mood/affect, cooperative - Neurologic Neurologic: CNII-XII intact, moves all extremities HEART Score - HEART Score Troponin: Troponin T < 0.010 ng/mL (0.00-0.029) 07/10/20 14:56 Results - Labs CBC & Chem 7: 07/10/20 12:03 07/11/20 04:54 Labs: Laboratory Last Values WBC 9.1 K/mm3 (4.5-11.0) 07/10/20 12:03 RBC 3.69 M/mm3 (3.65-5.03) 07/10/20 12:03 Hgb 9.4 gm/dl (11.8-15.2) L 07/10/20 12:03 Hct 29.7 % (35.5-45.6) L 07/10/20 12:03 MCV 81 fl (84-94) L 07/10/20 12:03 MCH 25 pg (28-32) L 07/10/20 12:03 MCHC 32 % (32-34) 07/10/20 12:03 RDW 19.6 % (13.2-15.2) H 07/10/20 12:03 Plt Count 310 K/mm3 (140-440) 07/10/20 12:03 Lymph % (Auto) 8.9 % (13.4-35.0) L 07/10/20 12:03 [place] % (Auto) 8.5 % (0.0-7.3) H 07/10/20 12:03 Eos % (Auto) 1.3 % (0.0-4.3) 07/10/20 12:03 Baso % (Auto) 0.2 % (0.0-1.8) 07/10/20 12:03 Lymph # (Auto) 0.8 K/mm3 (1.2-5.4) L 07/10/20 12:03 [place] # (Auto) 0.8 K/mm3 (0.0-0.8) 07/10/20 12:03 Eos # (Auto) 0.1 K/mm3 (0.0-0.4) 07/10/20 12:03 Baso # (Auto) 0.0 K/mm3 (0.0-0.1) 07/10/20 12:03 Seg Neutrophils % 81.1 % (40.0-70.0) H 07/10/20 12:03 Seg Neutrophils # 7.4 K/mm3 (1.8-7.7) 07/10/20 12:03 PT 13.6 Sec. (12.2-14.9) 07/10/20 12:03 INR 1.05 (0.87-1.13) 07/10/20 12:03 D-Dimer 274.10 ng/mlDDU (0-234) H 07/10/20 12:03 Sodium 136 mmol/L (137-145) L 07/11/20 04:54 Potassium 3.9 mmol/L (3.6-5.0) 07/11/20 04:54 Chloride 93.2 mmol/L (98-107) L 07/11/20 04:54 Carbon Dioxide 33 mmol/L (22-30) H 07/11/20 04:54 Anion Gap 14 mmol/L 07/11/20 04:54 BUN 24 mg/dL (9-20) H 07/11/20 04:54 Creatinine 1.2 mg/dL (0.8-1.3) 07/11/20 04:54 Estimated GFR > 60 ml/min 07/11/20 04:54 BUN/Creatinine Ratio 20 % 07/11/20 04:54 Glucose 299 mg/dL (75-100) H 07/11/20 04:54 Calcium 6.7 mg/dL (8.4-10.2) L 07/11/20 04:54 Total Creatine Kinase 56 units/L (55-170) 07/10/20 12:03 CK-MB (CK-2) 2.0 ng/mL (0.0-4.0) 07/10/20 12:03 CK-MB (CK-2) Rel Index 3.5 (0-4) 07/10/20 12:03 Troponin T < 0.010 ng/mL (0.00-0.029) 07/10/20 14:56 NT-Pro-B Natriuret Pep 461.2 pg/mL (0-900) 07/10/20 12:03 [place]/IV: Voiding Method Urinal Active Medications - Current Medications Current Medications: Generic Name Dose Route Start Last Admin Trade Name Freq PRN Reason Stop Dose Admin Acetaminophen 650 mg 07/10/20 18:20 Acetaminophen 325 Mg Tab PO Q4H PRN Pain MILD(1-3)/Fever >100.5/KOENIG Albuterol 2.5 mg 07/11/20 08:52 Albuterol 2.5 Mg/3 Ml Nebu IH Q4HRT PRN Shortness Of Breath Albuterol/Ipratropium 1 ampul 07/11/20 14:00 Ipratropium/Albuterol Sulfate 3 Ml Ampul.Neb IH TIDRT NADIA Alprazolam 0.5 mg 07/10/20 22:00 07/11/20 09:41 Alprazolam 0.5 Mg Tab PO 0.5 mg BID NADIA Administration Aspirin 81 mg 07/11/20 10:00 07/11/20 09:41 Aspirin Ec 81 Mg Tab PO 81 mg QDAY NADIA Administration Atorvastatin Calcium 40 mg 07/10/20 22:00 07/10/20 21:37 Atorvastatin 40 Mg Tab PO 40 mg QHS NADIA Administration Calcium Carbonate/Glycine 500 mg 07/11/20 10:00 07/11/20 09:41 Calcium Carbonate 500 Mg Tab Chew PO 500 mg QDAY NADIA Administration Diltiazem HCl 240 mg 07/11/20 10:00 07/11/20 09:54 Diltiazem Cd 240 Mg Cap PO 240 mg QDAY NADIA Administration Docusate Sodium 100 mg 07/10/20 18:22 Docusate Sodium 100 Mg Cap PO BID PRN Constip unreliev by MOM/or NPO Ferrous Sulfate 325 mg 07/11/20 10:00 07/11/20 09:41 Ferrous Sulfate 325 Mg Tab PO 325 mg QDAY NADIA Administration Guaifenesin 400 mg 07/10/20 22:00 07/11/20 09:41 Guaifenesin 200 Mg Tab PO 400 mg Q4HR NADIA Administration Ibuprofen 800 mg 07/10/20 18:22 Ibuprofen 800 Mg Tab PO Q8HR PRN Pain, Moderate (4-6) Methylprednisolone Sodium Succinate 40 mg 07/10/20 22:00 07/11/20 05:55 Methylprednisolone Sod Succinate 40 Mg/1 Ml Inj IV 40 mg Q8H NADIA Administration Montelukast Sodium 10 mg 07/10/20 22:00 07/10/20 21:37 Montelukast 10 Mg Tab PO 10 mg QHS NADIA Administration Ondansetron HCl 4 mg 07/10/20 18:20 Ondansetron 4 Mg/2 Ml Inj IV Q8H PRN Nausea And Vomiting Pantoprazole Sodium 40 mg 07/11/20 10:00 07/11/20 09:41 Pantoprazole 40 Mg Tab PO 40 mg QDAY NADIA Administration Sodium Chloride 10 ml 07/10/20 22:00 07/11/20 09:41 Sodium Chloride 0.9% 10 Ml Flush Syringe IV 10 ml BID NADIA Administration Sodium Chloride 10 ml 07/10/20 18:20 Sodium Chloride 0.9% 10 Ml Flush Syringe IV PRN PRN LINE FLUSH
[2020-07-11] MEDS ORDERED: MORPHINE 4 MG/1 ML INJ IV PRN (12:34)
[2020-07-11] MEDS: MORPHINE 2 MG/1 ML INJ IV PRN ×2 (12:41→21:42)
[2020-07-11] MEDS: ALUM-MAG HYDROXIDE-SIMETHICONE 200-200-20MG/5ML ORAL LIQD 30 ML PO PRN (12:42)
[2020-07-11] MEDS: IBUPROFEN 800 MG TAB PO PRN (18:02)
[2020-07-11] MEDS: MONTELUKAST 10 MG TAB PO SCH (21:41)
[2020-07-12] MEDS: guaiFENesin 200 MG TAB PO SCH ×5 (03:19→22:26)
[2020-07-12] MEDS: methylPREDNISolone Sod Succinate 40 MG/1 ML INJ IV SCH ×3 (07:36→22:27)
[2020-07-12] MEDS: IPRATROPIUM/ALBUTEROL SULFATE 3 ML AMPUL.NEB IH SCH ×3 (09:01→19:46)
[2020-07-12] MEDS: PANTOPRAZOLE 40 MG TAB PO SCH (09:14)
[2020-07-12] MEDS: ALPRAZolam 0.5 MG TAB PO SCH ×2 (09:15→22:27)
[2020-07-12] MEDS: CALCIUM CARBONATE 500 MG TAB CHEW PO SCH (09:15)
[2020-07-12] MEDS: FERROUS SULFATE 325 MG TAB PO SCH (09:15)
[2020-07-12] MEDS: ASPIRIN EC 81 MG TAB PO SCH (09:15)
[2020-07-12] MEDS: dilTIAZem CD 240 MG CAP PO SCH (09:15)
[2020-07-12] MEDS: ALUM-MAG HYDROXIDE-SIMETHICONE 200-200-20MG/5ML ORAL LIQD 30 ML PO PRN (09:18)
[2020-07-12] MEDS: IBUPROFEN 800 MG TAB PO PRN (09:18)
--- NOTE | 2020-07-12 11:33 | Progress Note ---
History Interval history: I have seen and examined the patient at the bedside Patient's chart and medications reviewed Patient complains of intermittent chest pain Had extensive evaluation with negative heart cath and stress test recently Alert awake oriented x3 Vital signs noted Hospitalist Physical - Constitutional Vitals: Temp Pulse Resp BP Pulse Ox 97.7 F 80 20 118/70 98 07/11/20 20:50 07/12/20 09:15 07/12/20 09:11 07/12/20 09:10 07/12/20 09:11 General appearance: Present: no acute distress, well-nourished - EENT Eyes: Present: PERRL, EOM intact - Neck Neck: Present: supple, normal ROM - Respiratory Respiratory effort: normal Respiratory: bilateral: diminished, negative: rales, rhonchi, wheezing - Cardiovascular Rhythm: regular Heart Sounds: Present: S1 & S2 - Extremities Extremities: no ischemia, No edema - Abdominal General gastrointestinal: soft, non-tender, non-distended, normal bowel sounds - Integumentary Integumentary: Present: clear, warm - Psychiatric Psychiatric: appropriate mood/affect, cooperative - Neurologic Neurologic: moves all extremities HEART Score - HEART Score Troponin: Troponin T < 0.010 ng/mL (0.00-0.029) 07/10/20 14:56 Results - Labs CBC & Chem 7: 07/10/20 12:03 07/11/20 04:54 Labs: Laboratory Last Values WBC 9.1 K/mm3 (4.5-11.0) 07/10/20 12:03 RBC 3.69 M/mm3 (3.65-5.03) 07/10/20 12:03 Hgb 9.4 gm/dl (11.8-15.2) L 07/10/20 12:03 Hct 29.7 % (35.5-45.6) L 07/10/20 12:03 MCV 81 fl (84-94) L 07/10/20 12:03 MCH 25 pg (28-32) L 07/10/20 12:03 MCHC 32 % (32-34) 07/10/20 12:03 RDW 19.6 % (13.2-15.2) H 07/10/20 12:03 Plt Count 310 K/mm3 (140-440) 07/10/20 12:03 Lymph % (Auto) 8.9 % (13.4-35.0) L 07/10/20 12:03 [place] % (Auto) 8.5 % (0.0-7.3) H 07/10/20 12:03 Eos % (Auto) 1.3 % (0.0-4.3) 07/10/20 12:03 Baso % (Auto) 0.2 % (0.0-1.8) 07/10/20 12:03 Lymph # (Auto) 0.8 K/mm3 (1.2-5.4) L 07/10/20 12:03 [place] # (Auto) 0.8 K/mm3 (0.0-0.8) 07/10/20 12:03 Eos # (Auto) 0.1 K/mm3 (0.0-0.4) 07/10/20 12:03 Baso # (Auto) 0.0 K/mm3 (0.0-0.1) 07/10/20 12:03 Seg Neutrophils % 81.1 % (40.0-70.0) H 07/10/20 12:03 Seg Neutrophils # 7.4 K/mm3 (1.8-7.7) 07/10/20 12:03 PT 13.6 Sec. (12.2-14.9) 07/10/20 12:03 INR 1.05 (0.87-1.13) 07/10/20 12:03 D-Dimer 274.10 ng/mlDDU (0-234) H 07/10/20 12:03 Sodium 136 mmol/L (137-145) L 07/11/20 04:54 Potassium 3.9 mmol/L (3.6-5.0) 07/11/20 04:54 Chloride 93.2 mmol/L (98-107) L 07/11/20 04:54 Carbon Dioxide 33 mmol/L (22-30) H 07/11/20 04:54 Anion Gap 14 mmol/L 07/11/20 04:54 BUN 24 mg/dL (9-20) H 07/11/20 04:54 Creatinine 1.2 mg/dL (0.8-1.3) 07/11/20 04:54 Estimated GFR > 60 ml/min 07/11/20 04:54 BUN/Creatinine Ratio 20 % 07/11/20 04:54 Glucose 299 mg/dL (75-100) H 07/11/20 04:54 Calcium 6.7 mg/dL (8.4-10.2) L 07/11/20 04:54 Total Creatine Kinase 56 units/L (55-170) 07/10/20 12:03 CK-MB (CK-2) 2.0 ng/mL (0.0-4.0) 07/10/20 12:03 CK-MB (CK-2) Rel Index 3.5 (0-4) 07/10/20 12:03 Troponin T < 0.010 ng/mL (0.00-0.029) 07/10/20 14:56 NT-Pro-B Natriuret Pep 461.2 pg/mL (0-900) 07/10/20 12:03 [place]/IV: Voiding Method Toilet Active Medications - Current Medications Current Medications: Generic Name Dose Route Start Last Admin Trade Name Freq PRN Reason Stop Dose Admin Acetaminophen 650 mg 07/10/20 18:20 Acetaminophen 325 Mg Tab PO Q4H PRN Pain MILD(1-3)/Fever >100.5/KOENIG Al Hydrox/Mg Hydrox/Simethicone 30 ml 07/11/20 12:33 07/12/20 09:18 Alum-Mag Hydroxide-Simethicone [id number]/5ml Oral Liqd 30 Ml PO 30 ml DAILY PRN Administration Indigestion Albuterol 2.5 mg 07/11/20 08:52 Albuterol 2.5 Mg/3 Ml Nebu IH Q4HRT PRN Shortness Of Breath Albuterol/Ipratropium 1 ampul 07/11/20 14:00 07/12/20 09:01 Ipratropium/Albuterol Sulfate 3 Ml Ampul.Neb IH 1 ampul TIDRT NADIA Administration Alprazolam 0.5 mg 07/10/20 22:00 07/12/20 09:15 Alprazolam 0.5 Mg Tab PO 0.5 mg BID NADIA Administration Aspirin 81 mg 07/11/20 10:00 07/12/20 09:15 Aspirin Ec 81 Mg Tab PO 81 mg QDAY NADIA Administration Atorvastatin Calcium 40 mg 07/10/20 22:00 07/11/20 21:41 Atorvastatin 40 Mg Tab PO 40 mg QHS NADIA Administration Calcium Carbonate/Glycine 500 mg 07/11/20 10:00 07/12/20 09:15 Calcium Carbonate 500 Mg Tab Chew PO 500 mg QDAY NADIA Administration Diltiazem HCl 240 mg 07/11/20 10:00 07/12/20 09:15 Diltiazem Cd 240 Mg Cap PO 240 mg QDAY NADIA Administration Docusate Sodium 100 mg 07/10/20 18:22 Docusate Sodium 100 Mg Cap PO BID PRN Constip unreliev by MOM/or NPO Ferrous Sulfate 325 mg 07/11/20 10:00 07/12/20 09:15 Ferrous Sulfate 325 Mg Tab PO 325 mg QDAY NADIA Administration Guaifenesin 400 mg 07/10/20 22:00 07/12/20 09:14 Guaifenesin 200 Mg Tab PO 400 mg Q4HR NADIA Administration Ibuprofen 800 mg 07/10/20 18:22 07/12/20 09:18 Ibuprofen 800 Mg Tab PO 800 mg Q8HR PRN Administration Pain, Moderate (4-6) Methylprednisolone Sodium Succinate 40 mg 07/10/20 22:00 07/12/20 07:36 Methylprednisolone Sod Succinate 40 Mg/1 Ml Inj IV 40 mg Q8H NADIA Administration Montelukast Sodium 10 mg 07/10/20 22:00 07/11/20 21:41 Montelukast 10 Mg Tab PO 10 mg QHS NADIA Administration Morphine Sulfate 1 mg 07/11/20 13:00 07/11/20 21:42 Morphine 2 Mg/1 Ml Inj IV 1 mg Q8H PRN Administration Chest Pain Ondansetron HCl 4 mg 07/10/20 18:20 Ondansetron 4 Mg/2 Ml Inj IV Q8H PRN Nausea And Vomiting Pantoprazole Sodium 40 mg 07/11/20 10:00 07/12/20 09:14 Pantoprazole 40 Mg Tab PO 40 mg QDAY NADIA Administration Sodium Chloride 10 ml 07/10/20 22:00 07/12/20 09:16 Sodium Chloride 0.9% 10 Ml Flush Syringe IV 10 ml BID NADIA Administration Sodium Chloride 10 ml 07/10/20 18:20 Sodium Chloride 0.9% 10 Ml Flush Syringe IV PRN PRN LINE FLUSH Nutrition/Malnutrition Assess - Dietary Evaluation Nutrition/Malnutrition Findings: Nutrition Notes Start: 07/11/20 14:18 Freq: Status: Active Protocol: Document 07/11/20 14:19 AL (Rec: 07/11/20 14:27 AL [id number]) Co-Sign 07/11/20 14:19 LP Nutrition Notes 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 Chevy score unavailable. Pt reports loss of appetite and weight loss in past two weeks, but unable to identify how much. Yesterday, meals were tolerated at about 25%. Also today, meals tolerated at 25%. Loss of appetite persists. Percent of energy/protein needs met: 31%/35% Burn Absent Trauma Absent GI Symptoms None Minimum of two criteria No Body Fat Depletion Mild depletion (non-severe) #1 Nutrition Diagnosis Inadequate oral intake Etiology Loss of appetite As Evidenced by Signs and Symptoms Pt meets 31%/35% of etimated energy and protein needs PO Is patient on ventilator? No Is Patient Ambulatory and/or Out of Bed Yes REE-([facility]-ambulatory/OOB) [ 1689.844 [id number]] Calculation Used for Recommendations [facility] Additional Notes Protein: 58- 71 g (1-1.2 g/kg) Fluid: 1 ml/kcal or per MD Nutrition Intervention Change Diet Order: Continue current diet Add Supplement/Snack (indicate name/kcal Ensure Enlive BID /protein ) Provides kCal: 700 Provides Protein (gm) 40 Goal #1 Meet at least 75% of estimated energy and protein needs Goal #2 ONS tolerance Goal #3 Wt gain/maintenence Anticipated Discharge Needs: Cardiac Diet Follow-Up By: 07/13/20 Additional Comments F/U for intakes and ONS tolerance.
[2020-07-12] MEDS: MORPHINE 2 MG/1 ML INJ IV PRN ×2 (12:07→20:38)
[2020-07-12] MEDS: ACETAMINOPHEN 325 MG TAB PO PRN (15:24)
--- NOTE | 2020-07-12 19:48 | Progress Note ---
Assessment and Plan Assessment and plan: --VQ scan intermediate probability for PE Empiric anticoagulation check CTA chest, to confirm PE Lovenox 1 mg/kg body weight every 12 hours Supportive care -- Acute respiratory failure with hypoxia Current Visit: No Status: Acute Plan to address problem: Supplemental oxygen, pulse oximetry, nebulizer therapy, chest x-ray, VQ scan, pulmonary toilet. --h/o HIV (human immunodeficiency virus infection) Outpatient follow-up with healthcare department or infectious disease office, --h/o Atherosclerotic coronary artery disease [facility] 08/2019, nonobstructive coronaries Negative stress test 07/2019 EF 60 to 65%, continue current cardiac medications -- COPD exacerbation Supplemental oxygen, pulse oximetry, chest x-ray, nebulizer therapy, IV steroid therapy, supportive care. --h/o Cocaine dependence Supportive care, behavior change counseling+15 minutes., outpatient drug dependence follow-up. Strongly advised to quit recreational drug use Patient verbalized understanding --DVT prophylaxis SCD to bilateral lower extremities while in bed, patient is ambulatory -- Advance care planning Disease education conducted, care plan discussed, diagnoses discussed, prognosis discussed, patient is full code, patient knowledges understanding and agreement with care plan. +30 minutes. Closely monitor the patient and adjust management as needed Plan of care reviewed with the patient and her nurse 07/11/2020; patient complains of mild intermittent chest pain, patient had extensive negative cardiac work-up last year Managed symptomatically, pain medications, Protonix, closely monitor cardiac enzymes, cardiology evaluation if needed 07/12/2020; patient feels slightly better, VQ scan is intermediate probability for PE I requested CTA chest and lower extremity venous Doppler Orders Lovenox 1 mg/kg body weight every 12 hours History Interval history: I have seen and examined the patient at the bedside Patient feels slightly better VQ scan intermediate probability for PE Will check CTA chest Vital signs noted Hospitalist Physical - Constitutional Vitals: Temp Pulse Resp BP Pulse Ox 98.4 F 74 18 105/63 99 07/12/20 11:39 07/12/20 16:43 07/12/20 16:43 07/12/20 16:43 07/12/20 16:43 General appearance: Present: no acute distress, well-nourished - EENT Eyes: Present: PERRL, EOM intact - Neck Neck: Present: supple, normal ROM - Respiratory Respiratory effort: normal Respiratory: bilateral: diminished, negative: rales, rhonchi, wheezing - Cardiovascular Rhythm: regular Heart Sounds: Present: S1 & S2 - Extremities Extremities: no ischemia, No edema - Abdominal General gastrointestinal: soft, non-tender, non-distended, normal bowel sounds - Integumentary Integumentary: Present: clear, warm - Psychiatric Psychiatric: appropriate mood/affect, cooperative - Neurologic Neurologic: moves all extremities HEART Score - HEART Score Troponin: Troponin T < 0.010 ng/mL (0.00-0.029) 07/10/20 14:56 Results - Labs CBC & Chem 7: 07/10/20 12:03 07/11/20 04:54 Labs: Laboratory Last Values WBC 9.1 K/mm3 (4.5-11.0) 07/10/20 12:03 RBC 3.69 M/mm3 (3.65-5.03) 07/10/20 12:03 Hgb 9.4 gm/dl (11.8-15.2) L 07/10/20 12:03 Hct 29.7 % (35.5-45.6) L 07/10/20 12:03 MCV 81 fl (84-94) L 07/10/20 12:03 MCH 25 pg (28-32) L 07/10/20 12:03 MCHC 32 % (32-34) 07/10/20 12:03 RDW 19.6 % (13.2-15.2) H 07/10/20 12:03 Plt Count 310 K/mm3 (140-440) 07/10/20 12:03 Lymph % (Auto) 8.9 % (13.4-35.0) L 07/10/20 12:03 Irwin % (Auto) 8.5 % (0.0-7.3) H 07/10/20 12:03 Eos % (Auto) 1.3 % (0.0-4.3) 07/10/20 12:03 Baso % (Auto) 0.2 % (0.0-1.8) 07/10/20 12:03 Lymph # (Auto) 0.8 K/mm3 (1.2-5.4) L 07/10/20 12:03 Irwin # (Auto) 0.8 K/mm3 (0.0-0.8) 07/10/20 12:03 Eos # (Auto) 0.1 K/mm3 (0.0-0.4) 07/10/20 12:03 Baso # (Auto) 0.0 K/mm3 (0.0-0.1) 07/10/20 12:03 Seg Neutrophils % 81.1 % (40.0-70.0) H 07/10/20 12:03 Seg Neutrophils # 7.4 K/mm3 (1.8-7.7) 07/10/20 12:03 PT 13.6 Sec. (12.2-14.9) 07/10/20 12:03 INR 1.05 (0.87-1.13) 07/10/20 12:03 D-Dimer 274.10 ng/mlDDU (0-234) H 07/10/20 12:03 Sodium 136 mmol/L (137-145) L 07/11/20 04:54 Potassium 3.9 mmol/L (3.6-5.0) 07/11/20 04:54 Chloride 93.2 mmol/L (98-107) L 07/11/20 04:54 Carbon Dioxide 33 mmol/L (22-30) H 07/11/20 04:54 Anion Gap 14 mmol/L 07/11/20 04:54 BUN 24 mg/dL (9-20) H 07/11/20 04:54 Creatinine 1.2 mg/dL (0.8-1.3) 07/11/20 04:54 Estimated GFR > 60 ml/min 07/11/20 04:54 BUN/Creatinine Ratio 20 % 07/11/20 04:54 Glucose 299 mg/dL (75-100) H 07/11/20 04:54 Calcium 6.7 mg/dL (8.4-10.2) L 07/11/20 04:54 Total Creatine Kinase 56 units/L (55-170) 07/10/20 12:03 CK-MB (CK-2) 2.0 ng/mL (0.0-4.0) 07/10/20 12:03 CK-MB (CK-2) Rel Index 3.5 (0-4) 07/10/20 12:03 Troponin T < 0.010 ng/mL (0.00-0.029) 07/10/20 14:56 NT-Pro-B Natriuret Pep 461.2 pg/mL (0-900) 07/10/20 12:03 Clayton/IV: Voiding Method Toilet Active Medications - Current Medications Current Medications: Generic Name Dose Route Start Last Admin Trade Name Freq PRN Reason Stop Dose Admin Acetaminophen 650 mg 07/10/20 18:20 07/12/20 15:24 Acetaminophen 325 Mg Tab PO 650 mg Q4H PRN Administration Pain MILD(1-3)/Fever >100.5/KOENIG Al Hydrox/Mg Hydrox/Simethicone 30 ml 07/11/20 12:33 07/12/20 09:18 Alum-Mag Hydroxide-Simethicone 084-097-48gs/5ml Oral Liqd 30 Ml PO 30 ml DAILY PRN Administration Indigestion Albuterol 2.5 mg 07/11/20 08:52 Albuterol 2.5 Mg/3 Ml Nebu IH Q4HRT PRN Shortness Of Breath Albuterol/Ipratropium 1 ampul 07/11/20 14:00 07/12/20 19:46 Ipratropium/Albuterol Sulfate 3 Ml Ampul.Neb IH 1 ampul TIDRT NADIA Administration Alprazolam 0.5 mg 07/10/20 22:00 07/12/20 09:15 Alprazolam 0.5 Mg Tab PO 0.5 mg BID NADIA Administration Aspirin 81 mg 07/11/20 10:00 07/12/20 09:15 Aspirin Ec 81 Mg Tab PO 81 mg QDAY NADIA Administration Atorvastatin Calcium 40 mg 07/10/20 22:00 07/11/20 21:41 Atorvastatin 40 Mg Tab PO 40 mg QHS NADIA Administration Calcium Carbonate/Glycine 500 mg 07/11/20 10:00 07/12/20 09:15 Calcium Carbonate 500 Mg Tab Chew PO 500 mg QDAY NADIA Administration Diltiazem HCl 240 mg 07/11/20 10:00 07/12/20 09:15 Diltiazem Cd 240 Mg Cap PO 240 mg QDAY NADIA Administration Docusate Sodium 100 mg 07/10/20 18:22 Docusate Sodium 100 Mg Cap PO BID PRN Constip unreliev by MOM/or NPO Enoxaparin Sodium 40 mg 07/12/20 22:00 Enoxaparin 40 Mg/0.4 Ml Inj SUB-Q QDAY@2200 [facility] Protocol Ferrous Sulfate 325 mg 07/11/20 10:00 07/12/20 09:15 Ferrous Sulfate 325 Mg Tab PO 325 mg QDAY NADIA Administration Guaifenesin 400 mg 07/10/20 22:00 07/12/20 15:24 Guaifenesin 200 Mg Tab PO 400 mg Q4HR NDAIA Administration Ibuprofen 800 mg 07/10/20 18:22 07/12/20 09:18 Ibuprofen 800 Mg Tab PO 800 mg Q8HR PRN Administration Pain, Moderate (4-6) Methylprednisolone Sodium Succinate 40 mg 07/10/20 22:00 07/12/20 15:25 Methylprednisolone Sod Succinate 40 Mg/1 Ml Inj IV 40 mg Q8H NADIA Administration Montelukast Sodium 10 mg 07/10/20 22:00 07/11/20 21:41 Montelukast 10 Mg Tab PO 10 mg QHS NADIA Administration Morphine Sulfate 1 mg 07/11/20 13:00 07/12/20 12:07 Morphine 2 Mg/1 Ml Inj IV 1 mg Q8H PRN Administration Chest Pain Ondansetron HCl 4 mg 07/10/20 18:20 Ondansetron 4 Mg/2 Ml Inj IV Q8H PRN Nausea And Vomiting Pantoprazole Sodium 40 mg 07/11/20 10:00 07/12/20 09:14 Pantoprazole 40 Mg Tab PO 40 mg QDAY NADIA Administration Sodium Chloride 10 ml 07/10/20 22:00 07/12/20 09:16 Sodium Chloride 0.9% 10 Ml Flush Syringe IV 10 ml BID NADIA Administration Sodium Chloride 10 ml 07/10/20 18:20 Sodium Chloride 0.9% 10 Ml Flush Syringe IV PRN PRN LINE FLUSH Nutrition/Malnutrition Assess - Dietary Evaluation Nutrition/Malnutrition Findings: Nutrition Notes Start: 07/11/20 14:18 Freq: Status: Active Protocol: Document 07/11/20 14:19 AL (Rec: 07/11/20 14:27 AL [id number]) Co-Sign 07/11/20 14:19 LP Nutrition Notes Need for Assessment generated from: special librarian Initial or Follow up Assessment Current Diagnosis COPD,Hypertension,Respiratory Failure,Hyperlipidemia Other Pertinent Diagnosis PE, HIV, Asthma, HIV Current Diet Cardiac Labs/Tests Na 136 BUN 24 BG 299 Pertinent Medications Solumedrol Height 5 ft 5 in Weight 58.8 kg Tolstoy Body Weight (kg) 61.81 BMI 21.5 Weight Status Appropriate Subjective/Other Information RN screen for skin risk. Chevy score unavailable. Pt reports loss of appetite and weight loss in past two weeks, but unable to identify how much. Yesterday, meals were tolerated at about 25%. Also today, meals tolerated at 25%. Loss of appetite persists. Percent of energy/protein needs met: 31%/35% Burn Absent Trauma Absent GI Symptoms None Minimum of two criteria No Body Fat Depletion Mild depletion (non-severe) #1 Nutrition Diagnosis Inadequate oral intake Etiology Loss of appetite As Evidenced by Signs and Symptoms Pt meets 31%/35% of etimated energy and protein needs PO Is patient on ventilator? No Is Patient Ambulatory and/or Out of Bed Yes REE-([facility]-ambulatory/OOB) [ 1689.844 [id number]] Calculation Used for Recommendations [facility] Additional Notes Protein: 58- 71 g (1-1.2 g/kg) Fluid: 1 ml/kcal or per MD Nutrition Intervention Change Diet Order: Continue current diet Add Supplement/Snack (indicate name/kcal Ensure Enlive BID /protein ) Provides kCal: 700 Provides Protein (gm) 40 Goal #1 Meet at least 75% of estimated energy and protein needs Goal #2 ONS tolerance Goal #3 Wt gain/maintenence Anticipated Discharge Needs: Cardiac Diet Follow-Up By: 07/13/20 Additional Comments F/U for intakes and ONS tolerance.
[2020-07-12] MEDS ORDERED: ENOXAPARIN 40 MG/0.4 ML INJ SUB-Q SCH (22:00)
[2020-07-12] MEDS ORDERED: ENOXAPARIN 100 MG/1 ML INJ SUB-Q SCH (22:00)
[2020-07-12] MEDS ORDERED: ENOXAPARIN 60 MG/0.6 ML INJ SUB-Q SCH (22:00)
[2020-07-12] MEDS: MONTELUKAST 10 MG TAB PO SCH (22:27)
--- NOTE | 2020-07-12 23:27 | Cat Scan Report ---
CTA CHEST WITH IV CONTRAST INDICATION: Chest pain / elevated D-dimer / intermediate probability PE. TECHNIQUE: Axial CT images were obtained through the chest after injection of 100 cc Omnipaque 350 IV contrast. 3 plane MIP reconstructions were produced. All CT scans at this location are performed using CT dose reduction for ALARA by means of automated exposure control. COMPARISON: VQ scan and one view of the chest performed earlier today. FINDINGS: PULMONARY ARTERIES: No pulmonary emboli. AORTA AND ARTERIES: The aorta is normal in caliber with mild aortic and coronary atherosclerosis. No other significant abnormality. HEART: No significant abnormality. MEDIASTINUM: No significant abnormality. LUNGS: No suspicious consolidation, nodule or mass. No pneumothorax or pleural effusion. ADDITIONAL FINDINGS: None. UPPER ABDOMEN: No acute findings. BONES: No significant osseous abnormality. IMPRESSION: 1. No CT evidence for pulmonary embolism. 2. No acute findings. Signer Name: Erwin Hernandez MD Signed: 07/12/2020 11:23 PM Workstation Name: [id number]
[2020-07-13] MEDS: guaiFENesin 200 MG TAB PO SCH ×5 (02:35→15:18)
[2020-07-13 06:05] VITALS: BP 95/48
[2020-07-13] MEDS: methylPREDNISolone Sod Succinate 40 MG/1 ML INJ IV SCH ×2 (06:19→15:18)
[2020-07-13] MEDS: MORPHINE 2 MG/1 ML INJ IV PRN (06:57)
[2020-07-13] MEDS ORDERED: ALPRAZolam 0.5 MG TAB PO PRN (07:09)
[2020-07-13] MEDS: IPRATROPIUM/ALBUTEROL SULFATE 3 ML AMPUL.NEB IH SCH ×2 (09:10→16:32)
[2020-07-13] MEDS: dilTIAZem CD 240 MG CAP PO SCH (09:37)
[2020-07-13] MEDS: FERROUS SULFATE 325 MG TAB PO SCH (09:40)
[2020-07-13] MEDS: ASPIRIN EC 81 MG TAB PO SCH (09:40)
[2020-07-13] MEDS: CALCIUM CARBONATE 500 MG TAB CHEW PO SCH (09:40)
[2020-07-13] MEDS ORDERED: PANTOPRAZOLE 40 MG INJ IV SCH (10:00)
--- NOTE | 2020-07-13 10:53 | Electrocardiograph Report ---
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
--- NOTE | 2020-07-13 11:53 | Discharge Summary ---
Providers - Providers Date of Admission: 07/10/20 18:20 Date of discharge: 07/13/20 Attending physician: KIMBERLY GUTIERREZ Primary care physician: UI [employer] WE[employer] DEVELOPER Hospitalization Reason for admission: Acute hypoxic respiratory failure requiring supplemental oxygen Condition: Fair Pertinent studies: VQ scan; intermediate probability for PE CTA chest; negative for PE Hospital course: 64-year-old male patient with significant past medical history of HIV, COPD, coronary artery disease, cocaine abuse was admitted through emergency room with worsening shortness of breath, patient was in hypoxia requiring supplemental oxygen, patient was managed with oxygen titrating O2 sats to more than 90%, nebulizers, tapering dose of IV steroids, patient had V/Q scan which was intermediate probability, started on empiric therapeutic dose of Lovenox, subsequently had negative CTA chest for PE. Lovenox was discontinued Patient symptoms slowly but gradually improved, counseling done strongly advised to quit cocaine use, patient verbalized understanding Patient symptoms significantly improved today patient is comfortable no new com plaints, vital signs stable, physical examination prior to discharge did not show any new changes. Patient is hemodynamically and clinically stable at discharge. 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 Patient verbalized understanding --DVT prophylaxis SCD to bilateral lower extremities in hospital Advised increase ambulation upon discharge The patient is comfortable no new complaints vital signs stable Physical examination prior to discharge no new changes Hemodynamically and clinically stable at discharge Disposition: DC-01 TO HOME OR SELFCARE Final Discharge Diagnosis (Prints w/discharge instructions): Acute hypoxic resp iratory failure. Negative PE on CTA chest. History of HIV. History of coronary artery disease. COPD acute exacerbation. History of cocaine abuse. Moderate malnutrition /hypoalbuminemia Time spent for discharge: 35 min Core Measure Documentation - Palliative Care Palliative Care/ Comfort Measures: Not Applicable - Core Measures Any of the following diagnoses?: none Exam - Constitutional Vitals: Temp Pulse Resp BP Pulse Ox 97.4 F L 68 18 95/48 100 07/13/20 04:13 07/13/20 09:37 07/13/20 08:00 07/13/20 09:37 07/13/20 09:10 General appearance: Present: no acute distress, well-nourished, cachectic - EENT Eyes: Present: PERRL, EOM intact - Neck Neck: Present: supple, normal ROM - Respiratory Respiratory effort: normal Respiratory: bilateral: diminished, negative: rales, rhonchi, wheezing - Cardiovascular Rhythm: regular Heart Sounds: Present: S1 & S2 - Extremities Extremities: no ischemia - Abdominal General gastrointestinal: Present: soft, non-tender, non-distended, normal bowel sounds - Integumentary Integumentary: Present: clear, warm - Musculoskeletal Musculoskeletal: strength equal bilaterally - Psychiatric Psychiatric: appropriate mood/affect, cooperative - Neurologic Neurologic: moves all extremities Plan Activity: advance as tolerated, fall precautions Diet: other (Cardiac diet) Additional Instructions: Advised to see primary distillery laborer in 1 to 2 weeks. Advised to quit recreational drug use. Follow primary care physician in 3 to 5 days. If you have worsening symptoms contact as needed. Continue home oxygen as before Follow up with: [facility] [Provider Group] - 3-5 Days Prescriptions: oxyCODONE /ACETAMINOPHEN [Percocet 5/325] 1 tab PO BID PRN #8 tablet PRN Reason: Pain , Severe (7-10) Prednisone [predniSONE 10 mg (6-Day Pack, 21 Tabs)] 10 mg PO .TAPER #1 tab.ds.pk Albuterol Mdi (or & Nicu Only) [ProAir HFA Inhaler] 2 puff IH QID PRN #8.5 gram PRN Reason: Shortness Of Breath Albuterol Sulfate [Proventil Hfa] 6.7 gm IH QID PRN #1 hfa.aer.ad PRN Reason: Wheezing traMADoL [Ultram] 50 mg PO Q6HR PRN #10 tablet PRN Reason: Pain
[2020-07-13] MEDS: ACETAMINOPHEN 325 MG TAB PO PRN (12:24)
[2020-07-14] MEDS ORDERED: PANTOPRAZOLE 40 MG TAB PO SCH (07:30)
== END 2020-07-13 17:51 | disposition home or self-care (01) | DRG 189 ==
LOC: ED 11:36 → 3A 18:20
PROVIDERS: ADMIT Internal Medicine; ATTEND Internal Medicine
PROC: 4A033R1 Measurement of Arterial Saturation, Peripheral, Percutaneous Approach (ICD-10-PCS; principal; 2020-07-10)
DX: J96.21 Acute and chronic respiratory failure with hypoxia (principal); J44.1 Chronic obstructive pulmonary disease with (acute) exacerbation; F14.20 Cocaine dependence, uncomplicated; B20 Human immunodeficiency virus [HIV] disease; I25.10 Atherosclerotic heart disease of native coronary artery without angina pectoris; I10 Essential (primary) hypertension; G89.4 Chronic pain syndrome; Z99.81 Dependence on supplemental oxygen; Z82.49 Family history of ischemic heart disease and other diseases of the circulatory system; Z79.899 Other long term (current) drug therapy; Z79.82 Long term (current) use of aspirin; Z86.711 Personal history of pulmonary embolism
CPT/HCPCS: 36415; 71045; 71275; 78580; 80048; 82550; 82553; 83880; 84484; 85025; 85379; 85610; 93005; 94640; 94644; 96365; 96375; G0378; A9270-GY; A9540; C9113; J1650; J2270; J2405; J2920; J2930; J3010; J3475; Q9967

== ENCOUNTER 2020-08-24 17:56 | Inpatient (IN) | payer MEDICARE ==
--- NOTE | 2020-08-24 19:17 | Emergency Department Report ---
ED Shortness of Breath HPI - General Chief Complaint: Dyspnea/Respdistress Stated Complaint: RICKY Time Seen by Provider: 08/24/20 19:12 Source: EMS Mode of arrival: Stretcher Limitations: No Limitations - History of Present Illness Initial Comments: Patient is a 64-year-old male that presents emergency room with complaints of shortness of breath. Patient states his shortness of breath started this morning. Patient brought in by EMS. Report received from EMS. Patient had an IV started by EMS and was given IV mag, Solu-Medrol and an albuterol treatment. EMS states that the patient took patient states his symptoms are worsening. Patient states 5 breathing treatment just prior to arrival and did not work. Shortness of breath better with rest and worse with exertion. Patient states he has a long history of COPD and asthma. Patient states he had multiple visits to the ER for this. Patient denies chest pain. Patient denies fever and chills. Patient complains of dry cough. Patient denies recent travel. Patient denies recent international travel. Patient denies exposure to the novel coronavirus. Patient denies sick contacts. Patient denies fever and chills. Patient denies loss of smell.. Patient denies diarrhea. Patient denies coming in contact with anybody with symptoms of the novel coronavirus. Patient states he has not been vaccinated for COVID-19. Patient found to be hypoxic by EMS and placed on oxygen therapy of 2 L via nasal cannula. Complaint: shortness of breath, cough -: Sudden Consistency: constant Improves With: oxygen, rest Worsens With: exertion, movement, coughing, inspiration Known History Of: COPD, asthma Context: recent URI Associated Symptoms: cough Treatments Prior to Arrival: oxygen, bronchodilator - Related Data Previous Rx's Medication Instructions Recorded Last Taken Type AtorvaSTATin [Lipitor] 40 mg PO QHS tablet 04/11/20 Unknown Rx Docusate Sodium [Colace CAP] 100 mg PO BID PRN #60 capsule 04/27/20 Unknown Rx Calcium Carbonate [Calcium 400 mg PO QDAY 30 Days #30 tab.chew 05/13/20 Unknown Rx Carbonate 400MG CHEW] Ferrous Sulfate [Feosol 325 MG tab] 325 mg PO QDAY 60 Days #60 tablet 05/13/20 Unknown Rx Pantoprazole [Protonix TAB] 40 mg PO QDAY 30 Days #30 tablet 05/13/20 Unknown Rx Aspirin EC [Halfprin EC] 81 mg PO QDAY #100 tablet. 05/15/20 Unknown Rx dilTIAZem CD [Cardizem CD] 240 mg PO QDAY #30 capsule 05/15/20 Unknown Rx Ipratropium/Albuterol Sulfate 1 ampul IH TIDRT #50 ampul.neb 05/16/20 Unknown Rx [DUONEB *Not for PRN Use*] guaiFENesin [Guaifenesin] 400 mg PO Q4H #20 tablet 05/24/20 Unknown Rx Acetaminophen [8 Hour 650 mg PO Q6HR PRN #20 tablet.er 05/31/20 Unknown Rx Acetaminophen] Montelukast [Singulair] 10 mg PO QHS #30 tablet 05/31/20 Unknown Rx Ibuprofen [Motrin 800 MG tab] 800 mg PO Q8HR PRN #20 tablet 06/17/20 Unknown Rx Albuterol Sulfate [Proventil Hfa] 6.7 gm IH QID PRN #1 hfa.aer.ad 07/10/20 Unknown Rx traMADoL [Ultram] 50 mg PO Q6HR PRN #10 tablet 07/10/20 Unknown Rx Albuterol Mdi (or & Nicu Only) 2 puff IH QID PRN #8.5 gram 07/13/20 Unknown Rx [ProAir HFA Inhaler] Prednisone [predniSONE 10 mg 10 mg PO .TAPER #1 tab.ds.pk 07/13/20 Unknown Rx (6-Day Pack, 21 Tabs)] oxyCODONE /ACETAMINOPHEN [Percocet 1 tab PO BID PRN #8 tablet 07/13/20 Unknown Rx 5/325] Allergies Allergy/AdvReac Type Severity Reaction Status Date / Time No Known Allergies Allergy Verified 05/15/20 09:18 ED Review of Systems ROS: Stated complaint: RICKY Other details as noted in HPI Constitutional: denies: chills, fever Eyes: denies: eye pain, eye discharge, vision change ENT: denies: ear pain, throat pain Respiratory: see HPI, cough, shortness of breath, SOB with exertion, SOB at rest, wheezing Cardiovascular: denies: chest pain, palpitations Endocrine: no symptoms reported Gastrointestinal: denies: abdominal pain, nausea, diarrhea Genitourinary: denies: urgency, dysuria Musculoskeletal: denies: back pain, joint swelling, arthralgia Skin: denies: rash, lesions Neurological: denies: headache, weakness, paresthesias Psychiatric: denies: anxiety, depression Hematological/Lymphatic: denies: easy bleeding, easy bruising ED Past Medical Hx - Past Medical History Previous Medical History?: Yes Hx Hypertension: Yes Hx Heart Attack/AMI: No Hx Congestive Heart Failure: No Hx Diabetes: No Hx Deep Vein Thrombosis: No Hx Pulmonary Embolism: Yes Hx Liver Disease: No Hx Renal Disease: No Hx Sickle Cell Disease: No Hx Arthritis: No Hx Seizures: No Hx Kidney Stones: No Hx Asthma: Yes Hx COPD: Yes Hx Tuberculosis: No Hx Dementia: No Hx HIV: Yes Additional medical history: Elevated Cholesterol & Chronic back pain. - Surgical History Past Surgical History?: No Hx Coronary Stent: No Hx Pacemaker: No Hx Internal Defibrillator: No - Family History Family history: no significant - Social History Smoking Status: Current Some Day Smoker Substance Use Type: Cocaine - Medications Home Medications: Home Medications Medication Instructions Recorded Confirmed Last Taken Type AtorvaSTATin [Lipitor] 40 mg PO QHS tablet 04/11/20 05/12/20 Unknown Rx Docusate Sodium [Colace CAP] 100 mg PO BID PRN #60 capsule 04/27/20 05/12/20 Unknown Rx Calcium Carbonate [Calcium 400 mg PO QDAY 30 Days #30 tab.chew 05/13/20 Unknown Rx Carbonate 400MG CHEW] Ferrous Sulfate [Feosol 325 MG tab] 325 mg PO QDAY 60 Days #60 tablet 05/13/20 Unknown Rx Pantoprazole [Protonix TAB] 40 mg PO QDAY 30 Days #30 tablet 05/13/20 Unknown Rx Aspirin EC [Halfprin EC] 81 mg PO QDAY #100 tablet.dr 05/15/20 Unknown Rx dilTIAZem CD [Cardizem CD] 240 mg PO QDAY #30 capsule 05/15/20 Unknown Rx Ipratropium/Albuterol Sulfate 1 ampul IH TIDRT #50 ampul.neb 05/16/20 Unknown Rx [DUONEB *Not for PRN Use*] guaiFENesin [Guaifenesin] 400 mg PO Q4H #20 tablet 05/24/20 Unknown Rx Acetaminophen [8 Hour 650 mg PO Q6HR PRN #20 tablet.er 05/31/20 Unknown Rx Acetaminophen] Montelukast [Singulair] 10 mg PO QHS #30 tablet 05/31/20 Unknown Rx Ibuprofen [Motrin 800 MG tab] 800 mg PO Q8HR PRN #20 tablet 06/17/20 Unknown Rx Albuterol Sulfate [Proventil Hfa] 6.7 gm IH QID PRN #1 hfa.aer.ad 07/10/20 Unknown Rx traMADoL [Ultram] 50 mg PO Q6HR PRN #10 tablet 07/10/20 Unknown Rx Albuterol Mdi (or & Nicu Only) 2 puff IH QID PRN #8.5 gram 07/13/20 Unknown Rx [ProAir HFA Inhaler] Prednisone [predniSONE 10 mg 10 mg PO .TAPER #1 tab.ds.pk 07/13/20 Unknown Rx (6-Day Pack, 21 Tabs)] oxyCODONE /ACETAMINOPHEN [Percocet 1 tab PO BID PRN #8 tablet 07/13/20 Unknown Rx 5/325] ED Physical Exam - General Limitations: No Limitations General appearance: alert, in distress - Head Head exam: Present: atraumatic, normocephalic - Eye Eye exam: Present: normal appearance - ENT ENT exam: Present: mucous membranes moist - Neck Neck exam: Present: normal inspection - Respiratory Respiratory exam: Present: respiratory distress, wheezes - Cardiovascular Cardiovascular Exam: Present: regular rate, normal rhythm. Absent: systolic murmur, diastolic murmur, rubs, gallop - GI/Abdominal GI/Abdominal exam: Present: soft, normal bowel sounds - Rectal Rectal exam: Present: deferred - Extremities Exam Extremities exam: Present: normal inspection - Back Exam Back exam: Present: normal inspection - Neurological Exam Neurological exam: Present: alert, oriented X3 - Psychiatric Psychiatric exam: Present: normal affect, normal mood - Skin Skin exam: Present: warm, dry, intact, normal color. Absent: rash ED Course Vital Signs 08/24/20 08/24/20 08/24/20 18:22 18:30 18:32 Temperature Pulse Rate 105 H 109 H Pulse Rate [ Bilateral] Respiratory 20 20 Rate Respiratory Rate [Bilateral ] Blood Pressure 155/82 Blood Pressure 155/82 [Left] O2 Sat by Pulse 97 100 91 Oximetry 08/24/20 08/24/20 08/24/20 18:45 19:00 19:15 Temperature Pulse Rate 108 H 105 H Pulse Rate [ Bilateral] Respiratory 28 H 15 27 H Rate Respiratory Rate [Bilateral ] Blood Pressure 155/82 155/82 155/82 Blood Pressure [Left] O2 Sat by Pulse 99 100 100 Oximetry 08/24/20 08/24/20 08/24/20 19:31 19:45 20:00 Temperature Pulse Rate 103 H 103 H 99 H Pulse Rate [ Bilateral] Respiratory 26 H 19 21 Rate Respiratory Rate [Bilateral ] Blood Pressure 155/82 155/82 155/82 Blood Pressure [Left] O2 Sat by Pulse 98 100 100 Oximetry 08/24/20 08/24/20 08/24/20 20:15 20:31 20:32 Temperature Pulse Rate Pulse Rate [ 120 H Bilateral] Respiratory Rate Respiratory 26 H Rate [Bilateral ] Blood Pressure 155/82 Blood Pressure [Left] O2 Sat by Pulse 100 97 Oximetry 08/24/20 08/24/20 08/24/20 20:45 21:01 21:15 Temperature Pulse Rate Pulse Rate [ Bilateral] Respiratory Rate Respiratory Rate [Bilateral ] Blood Pressure 155/82 155/82 155/82 Blood Pressure [Left] O2 Sat by Pulse 100 98 97 Oximetry 08/24/20 08/24/20 08/24/20 21:31 21:45 22:01 Temperature Pulse Rate Pulse Rate [ Bilateral] Respiratory Rate Respiratory Rate [Bilateral ] Blood Pressure 155/82 155/82 155/82 Blood Pressure [Left] O2 Sat by Pulse 99 99 100 Oximetry 08/24/20 08/25/20 22:03 00:12 Temperature 98.4 F Pulse Rate 115 H Pulse Rate [ 105 H Bilateral] Respiratory 20 Rate Respiratory 26 H Rate [Bilateral ] Blood Pressure 118/75 Blood Pressure [Left] O2 Sat by Pulse 100 Oximetry - Reevaluation(s) Reevaluation #1: Patient is to have increased work to breathe. Patient's lung sounds are better. Patient still requiring oxygen therapy. Patient still receiving the albuterol treatment. 08/24/20 20:43 Reevaluation #2: Patient is to have increased work to breathe. Patient will be given an hour- long albuterol DuoNeb. Patient still requiring respiratory support. I discussed all results with patient. I discussed plan of care with patient. Patient agrees with plan of care and admission. Patient to be admitted to the hospitalist service. 08/24/20 21:44 - Consultations Consultation #1: Hospitalist consulted for admission. Hospitalist to admit patient. 08/24/20 21:48 ED Medical Decision Making - Lab Data Result diagrams: 08/24/20 19:29 08/24/20 19:29 - Radiology Data Radiology results: report reviewed, image reviewed interpreted by me: Chest x-ray: No pneumonia, no pneumothorax, no foreign body, no osseous findings, no acute findings CHEST 1 VIEW 08/24/2020 6:44 PM INDICATION / CLINICAL INFORMATION: Dyspnea. COMPARISON: 07/10/2020 FINDINGS: SUPPORT DEVICES: None. HEART / MEDIASTINUM: Unchanged LUNGS / PLEURA: There is hyperinflation the lungs. No focal infiltrate is seen. Calcified granulomata are noted in the upper lung zones bilaterally. No pneumothorax. ADDITIONAL FINDINGS: No significant additional findings. IMPRESSION: 1. No significant change. - Medical Decision Making Patient is a 64-year-old male who presents emergency room for shortness of breath. Patient has history of COPD patient found to have COPD exacerbation and status asthmaticus. Patient given duo nebs, Solu-Medrol, magnesium and the patient still required oxygen therapy. Patient given multiple albuterol DuoNeb treatments in the ER. Patient had a chest x-ray which was negative for acute finding. Patient states to rule out pneumonia. Patient's chest x-ray is negative for acute findings. I personally reviewed the chest x-ray. Patient had labs done which were essentially unremarkable save for anemia. Patient history of anemia. Patient admitted to the hospital service for further evaluation treatment. Critical care time documented due to the multiple reassessments, prolonged time at the bedside, interpretation of diagnostics and labs. - Differential Diagnosis sob, COPD exacerbation, pneumonia, cough, wheezing Critical Care Time: Yes Critical care time in (mins) excluding proc time.: 35 Critical care attestation.: If time is entered above; I have spent that time in minutes in the direct care of this critically ill patient, excluding procedure time. Critical Care Time: 35 minutes ED Disposition Clinical Impression: COPD exacerbation Respiratory failure Qualifiers: Chronicity: acute Respiratory failure complication: hypoxia Qualified Code(s): J96.01 - Acute respiratory failure with hypoxia Anemia Qualifiers: Anemia type: unspecified type Qualified Code(s): D64.9 - Anemia, unspecified Asthma with acute exacerbation Qualifiers: Asthma severity: severe Asthma persistence: unspecified Qualified Code(s): J45.901 - Unspecified asthma with (acute) exacerbation Disposition: 09 OP ADMIT IP TO THIS HOSP Is pt being admited?: Yes Does the pt Need Aspirin: No Condition: Critical Time of Disposition: 21:48
[2020-08-24] MEDS ORDERED: ALBUTEROL 2.5 MG/3 ML NEBU IH ONE (19:22)
[2020-08-24] MEDS ORDERED: IPRATROPIUM 0.02% NEBU 2.5 ML IH ONE (19:22)
[2020-08-24] MEDS ORDERED: methylPREDNISolone Sod Succinate 125 MG/2 ML INJ IV ONE (19:22)
[2020-08-24 19:41] LABS: Hematocrit 28.5 % (35.5-45.6); Hemoglobin 9.7 gm/dl (11.8-15.2); Mean Corpuscular HGB Conc 34 % (32-34); Mean Corpuscular Volume 85 fl (84-94); Platelet Count 210 K/mm3 (140-440); Red Blood Count 3.36 M/mm3 (3.65-5.03)
[2020-08-24 19:45] LABS: Red Cell Distribution Width 20.6 % (13.2-15.2)
--- NOTE | 2020-08-24 20:01 | XRay Report ---
CHEST 1 VIEW 08/24/2020 6:44 PM INDICATION / CLINICAL INFORMATION: Dyspnea. COMPARISON: 07/10/2020 FINDINGS: SUPPORT DEVICES: None. HEART / MEDIASTINUM: Unchanged LUNGS / PLEURA: There is hyperinflation the lungs. No focal infiltrate is seen. Calcified granulomata are noted in the upper lung zones bilaterally. No pneumothorax. ADDITIONAL FINDINGS: No significant additional findings. IMPRESSION: 1. No significant change. Signer Name: Hugo Gonzalez MD Signed: 08/24/2020 7:57 PM Workstation Name: [email or web address] [id number]
[2020-08-24 20:03] LABS: Alanine Aminotransferase 36 units/L (7-56); Albumin 3.4 g/dL (3.9-5); BUN/Creatinine Ratio 14; Blood Urea Nitrogen 13 mg/dL (9-20); Calcium 7.6 mg/dL (8.4-10.2); Hemolysis Index 5
[2020-08-24 20:37] LABS: Anisocytosis 1+; Ovalocytes 1+; Poikilocytosis 1+; Total Cells Counted 100
[2020-08-24 20:38] LABS: Platelet Estimate Consistent w Auto
[2020-08-24] MEDS ORDERED: IPRATROPIUM/ALBUTEROL SULFATE 3 ML AMPUL.NEB IH ONE (21:42)
[2020-08-24] MEDS ORDERED: ALBUTEROL 2.5 MG/3 ML NEBU IH PRN (22:12)
[2020-08-24] MEDS ORDERED: ACETAMINOPHEN 325 MG TAB PO PRN (22:12)
[2020-08-24] MEDS ORDERED: ONDANSETRON 4 MG/2 ML INJ IV PRN (22:12)
--- NOTE | 2020-08-24 22:20 | History and Physical Report ---
History of Present Illness Date of examination: 08/24/20 Date of admission: 08/24/20 Chief complaint: Dyspnea Respiratory distress History of present illness: 4-year-old male with past medical history of COPD, hypertension asthma PE was brought to the emergency room because of shortness of breath since this morning. Patient had an IV started by EMS and was given IV mag, Solu-Medrol and an albuterol treatment. EMS states that the patient took patient states his symptoms are worsening. Patient states 5 breathing treatment just prior to arrival and did not work. Shortness of breath better with rest and worse with exertion. Patient states he has a long history of COPD and asthma. Patient states he had multiple visits to the ER for this. Patient denies chest pain. Patient denies fever and chills. Patient complains of dry cough. In the emergency room patient is found to have acute COPD exacerbation Past History Past Medical History: COPD, hypertension, hyperlipidemia, other (Pulmonary embolism, HIV) Medications and Allergies Allergies Allergy/AdvReac Type Severity Reaction Status Date / Time No Known Allergies Allergy Verified 05/15/20 09:18 Home Medications Medication Instructions Recorded Confirmed Last Taken Type AtorvaSTATin [Lipitor] 40 mg PO QHS tablet 04/11/20 05/12/20 Unknown Rx Docusate Sodium [Colace CAP] 100 mg PO BID PRN #60 capsule 04/27/20 05/12/20 Unknown Rx Calcium Carbonate [Calcium 400 mg PO QDAY 30 Days #30 tab.chew 05/13/20 Unknown Rx Carbonate 400MG CHEW] Ferrous Sulfate [Feosol 325 MG tab] 325 mg PO QDAY 60 Days #60 tablet 05/13/20 Unknown Rx Pantoprazole [Protonix TAB] 40 mg PO QDAY 30 Days #30 tablet 05/13/20 Unknown Rx Aspirin EC [Halfprin EC] 81 mg PO QDAY #100 tablet. 05/15/20 Unknown Rx dilTIAZem CD [Cardizem CD] 240 mg PO QDAY #30 capsule 05/15/20 Unknown Rx Ipratropium/Albuterol Sulfate 1 ampul IH TIDRT #50 ampul.neb 05/16/20 Unknown Rx [DUONEB *Not for PRN Use*] guaiFENesin [Guaifenesin] 400 mg PO Q4H #20 tablet 05/24/20 Unknown Rx Acetaminophen [8 Hour 650 mg PO Q6HR PRN #20 tablet.er 05/31/20 Unknown Rx Acetaminophen] Montelukast [Singulair] 10 mg PO QHS #30 tablet 05/31/20 Unknown Rx Ibuprofen [Motrin 800 MG tab] 800 mg PO Q8HR PRN #20 tablet 06/17/20 Unknown Rx Albuterol Sulfate [Proventil Hfa] 6.7 gm IH QID PRN #1 hfa.aer.ad 07/10/20 Unknown Rx traMADoL [Ultram] 50 mg PO Q6HR PRN #10 tablet 07/10/20 Unknown Rx Albuterol Mdi (or & Nicu Only) 2 puff IH QID PRN #8.5 gram 07/13/20 Unknown Rx [ProAir HFA Inhaler] Prednisone [predniSONE 10 mg 10 mg PO .TAPER #1 tab.ds.pk 07/13/20 Unknown Rx (6-Day Pack, 21 Tabs)] oxyCODONE /ACETAMINOPHEN [Percocet 1 tab PO BID PRN #8 tablet 07/13/20 Unknown Rx 5/325] Active Meds: Active Medications Acetaminophen (Acetaminophen 325 Mg Tab) 650 mg PO Q4H PRN PRN Reason: Pain MILD(1-3)/Fever >100.5/KOENIG Review of Systems Cardiovascular: shortness of breath, dyspnea on exertion Respiratory: cough, shortness of breath, dyspnea on exertion Exam - Constitutional Vitals: Temp Pulse Resp BP Pulse Ox 105 H 26 H 155/82 91 08/24/20 22:03 08/24/20 22:03 08/24/20 18:32 08/24/20 18:32 General appearance: Present: no acute distress, well-nourished - EENT Eyes: Present: PERRL ENT: hearing intact, clear oral mucosa - Neck Neck: Present: supple, normal ROM - Respiratory Respiratory effort: normal Respiratory: bilateral: wheezing - Cardiovascular Heart Sounds: Present: S1 & S2. Absent: rub, click - Extremities Extremities: pulses symmetrical, No edema Peripheral Pulses: within normal limits - Abdominal General gastrointestinal: Present: soft, non-tender, non-distended, normal bowel sounds Male genitourinary: Present: normal - Integumentary Integumentary: Present: clear, warm, dry - Musculoskeletal Musculoskeletal: gait normal, strength equal bilaterally - Psychiatric Psychiatric: appropriate mood/affect, intact judgment & insight - Neurologic Neurologic: CNII-XII intact, moves all extremities HEART Score - HEART Score Troponin: Troponin T < 0.010 ng/mL (0.00-0.029) 08/24/20 19: Results - Labs CBC & Chem 7: 08/24/20 19:29 08/24/20 19: Labs: Laboratory Last Values WBC 10.5 K/mm3 (4.5-11.0) 08/24/20 19: RBC 3.36 M/mm3 (3.65-5.03) L 08/24/20 19: Hgb 9.7 gm/dl (11.8-15.2) L 08/24/20 19: Hct 28.5 % (35.5-45.6) L 08/24/20 19: MCV 85 fl (84-94) 08/24/20 19: MCH 29 pg (28-32) 08/24/20 19: MCHC 34 % (32-34) 08/24/20: RDW 20.6 % (13.2-15.2) H 08/24/20 19: Plt Count 210 K/mm3 (140-440) 08/24/20 19: Add Manual Diff Complete 08/24/20: Total Counted 100 08/24/20 19: Seg Neutrophils % [employer] Sharpener 08/24/20 19: Seg Neuts % (Manual) 97.0 % (40.0-70.0) H 08/24/20 19: Lymphocytes % (Manual) 1.0 % (13.4-35.0) L 08/24/20 19: Monocytes % (Manual) 2.0 % (0.0-7.3) 08/24/20 19: Nucleated RBC % Not Reportable 08/24/20 19: Seg Neutrophils # Man 10.2 K/mm3 (1.8-7.7) H 08/24/20 19: Band Neutrophils # 0.0 K/mm3 08/24/20 19:29 Lymphocytes # (Manual) 0.1 K/mm3 (1.2-5.4) L 08/24/20 19: Abs React Lymphs (Man) 0.0 K/mm3 08/24/20 19: Monocytes # (Manual) 0.2 K/mm3 (0.0-0.8) 08/24/20 19:29 Eosinophils # (Manual) 0.0 K/mm3 (0.0-0.4) 08/24/20 19:29 Basophils # (Manual) 0.0 K/mm3 (0.0-0.1) 08/24/20 19:29 Metamyelocytes # 0.0 K/mm3 08/24/20 19:29 Myelocytes # 0.0 K/mm3 08/24/20 19:29 Promyelocytes # 0.0 K/mm3 08/24/20 19:29 Blast Cells # 0.0 K/mm3 08/24/20 19:29 WBC Morphology Not Reportable 08/24/20 19:29 Hypersegmented Neuts Not Reportable 08/24/20 19:29 Hyposegmented Neuts Not Reportable 08/24/20 19:29 Hypogranular Neuts Not Reportable 08/24/20 19:29 Smudge Cells Not Reportable 08/24/20 19:29 Toxic Granulation Not Reportable 08/24/20 19:29 Toxic Vacuolation Not Reportable 08/24/20 19:29 Dohle Bodies Not Reportable 08/24/20 19:29 Pelger-Huet Anomaly Not Reportable 08/24/20 19:29 Rmua Rods Not Reportable 08/24/20 19:29 Platelet Estimate Consistent w auto 08/24/20 19:29 Clumped Platelets Not Reportable 08/24/20 19:29 Plt Clumps, EDTA Not Reportable 08/24/20 19:29 Large Platelets Not Reportable 08/24/20 19:29 Giant Platelets Not Reportable 08/24/20 19:29 Platelet Satelliting Not Reportable 08/24/20 19:29 Plt Morphology Comment Not Reportable 08/24/20 19:29 RBC Morphology Not Reportable 08/24/20 19:29 Dimorphic RBCs Not Reportable 08/24/20 19:29 Polychromasia Not Reportable 08/24/20 19:29 Hypochromasia Not Reportable 08/24/20 19:29 Poikilocytosis 1+ 08/24/20 19:29 Anisocytosis 1+ 08/24/20 19:29 Microcytosis Not Reportable 08/24/20 19:29 Macrocytosis Not Reportable 08/24/20 19:29 Spherocytes Not Reportable 08/24/20 19:29 Pappenheimer Bodies Not Reportable 08/24/20 19:29 Sickle Cells Not Reportable 08/24/20 19:29 Target Cells Not Reportable 08/24/20 19:29 Tear Drop Cells Not Reportable 08/24/20 19:29 Ovalocytes 1+ 08/24/20 19:29 Helmet Cells Not Reportable 08/24/20 19:29 David-Pabellones Bodies Not Reportable 08/24/20 19:29 Burrton Rings Not Reportable 08/24/20 19:29 W[place]ly Cells Not Reportable 08/24/20 19:29 Bite Cells Not Reportable 08/24/20 19:29 Crenated Cell Not Reportable 08/24/20 19:29 Elliptocytes Few 08/24/20 19:29 Acanthocytes (Spur) Few 08/24/20 19:29 Rouleaux Not Reportable 08/24/20 19:29 Hemoglobin C Crystals Not Reportable 08/24/20 19:29 Schistocytes Not Reportable 08/24/20 19:29 Malaria parasites Not Reportable 08/24/20 19:29 Ric Bodies Not Reportable 08/24/20 19:29 Hem Pathologist Commnt No 08/24/20 19:29 Sodium 143 mmol/L (137-145) 08/24/20 19:29 Potassium 3.3 mmol/L (3.6-5.0) L 08/24/20 19:29 Chloride 101.5 mmol/L (98-107) 08/24/20 19:29 Carbon Dioxide 28 mmol/L (22-30) 08/24/20 19:29 Anion Gap 17 mmol/L 08/24/20 19:29 BUN 13 mg/dL (9-20) 08/24/20 19:29 Creatinine 0.9 mg/dL (0.8-1.3) 08/24/20 19:29 Estimated GFR > 60 ml/min 08/24/20 19:29 BUN/Creatinine Ratio 14 % 08/24/20 19:29 Glucose 121 mg/dL (75-100) H 08/24/20 19:29 Calcium 7.6 mg/dL (8.4-10.2) L 08/24/20 19:29 Total Bilirubin 0.40 mg/dL (0.1-1.2) 08/24/20 19:29 AST 21 units/L (5-40) 08/24/20 19:29 ALT 36 units/L (7-56) 08/24/20 19:29 Alkaline Phosphatase 154 units/L (35-129) H 08/24/20 19:29 Troponin T < 0.010 ng/mL (0.00-0.029) 08/24/20 19:29 Total Protein 6.5 g/dL (6.3-8.2) 08/24/20 19:29 Albumin 3.4 g/dL (3.9-5) L 08/24/20 19:29 Albumin/Globulin Ratio 1.1 % 08/24/20 19:29 - Imaging and Cardiology Chest x-ray: report reviewed Assessment and Plan VTE prophylaxis?: Chemical Plan of care discussed with patient/family: Yes - Patient Problems (1) COPD exacerbation Status: Acute Plan to address problem: Admit to the medical floor. Oxygen per nasal cannula 3 to per minute. DuoNeb by nebulizer every 4 hours. Albuterol via nebulizer every 4 hours as needed. Solu-Medrol 40 mg IV every 6 hours. Singular 10 mg p.o. daily we will do the blood cultures sputum culture. Consult pulmonary if needed (2) Acute respiratory failure with hypoxia Status: Acute Plan to address problem: Oxygen per nasal cannula 3 to per minute. DuoNeb by nebulizer every 4 hours. Albuterol via nebulizer every 4 hours as needed. Solu-Medrol 40 mg IV every 6 h ours. Singular 10 mg p.o. daily we will do the blood cultures sputum culture. Consult pulmonary if needed (3) Asthma exacerbation Status: Acute Plan to address problem: Oxygen per nasal cannula 3 to per minute. DuoNeb by nebulizer every 4 hours. Albuterol via nebulizer every 4 hours as needed. Solu-Medrol 40 mg IV every 6 h ours. Singular 10 mg p.o. daily we will do the blood cultures sputum culture. Consult pulmonary if needed (4) Hypertension Status: Acute Plan to address problem: Hydralazine 10 mg IV every 6 hours as needed. Cardizem CD 240 mg p.o. daily we will monitor the blood pressure closely (5) Hyperlipidemia Status: Acute Plan to address problem: Lipitor 40 mg p.o. daily. We will check the lipid panel (6) HIV (human immunodeficiency virus infection) Status: Acute Qualifiers: Plan to address problem: Stable we will continue the home medication outpatient follow-up with infectious disease (7) Tobacco use Status: Chronic Plan to address problem: We counseled regarding quitting smoking patient is offered nicotine patch (8) DVT prophylaxis Status: Acute Plan to address problem: Heparin 5000 units subcu every 8 hours for DVT prophylaxis. Protonix 40 mg p.o. daily for GI prophylaxis. Patient is a full code
[2020-08-24] MEDS ORDERED: IBUPROFEN 800 MG TAB PO PRN (22:23)
[2020-08-24] MEDS ORDERED: ALBUTEROL 8.5 GM MDI INHALATION IH PRN (22:23)
[2020-08-24] MEDS ORDERED: DOCUSATE SODIUM 100 MG CAP PO PRN (22:23)
[2020-08-24] MEDS ORDERED: GUAIFENESIN 400 MG PO SCH (22:30)
[2020-08-25] MEDS: guaiFENesin 200 MG TAB PO SCH ×6 (01:09→22:26)
[2020-08-25] MEDS: oxyCODONE /ACETAMINOPHEN 5-325MG TAB PO PRN ×3 (01:10→17:18)
[2020-08-25] MEDS: IPRATROPIUM/ALBUTEROL SULFATE 3 ML AMPUL.NEB IH SCH ×4 (02:10→19:51)
[2020-08-25] MEDS: methylPREDNISolone Sod Succinate 40 MG/1 ML INJ IV SCH ×4 (03:00→22:29)
[2020-08-25] MEDS: HEPARIN 5,000 UNIT/1 ML VIAL SUB-Q SCH ×3 (05:55→22:29)
[2020-08-25] MEDS: BUDESONIDE 0.5 MG/2 ML NEBU IH SCH ×2 (07:41→19:51)
[2020-08-25 08:30] LABS: Hematocrit 26.5 % (35.5-45.6); Hemoglobin 8.9 gm/dl (11.8-15.2); Mean Corpuscular HGB Conc 34 % (32-34); Mean Corpuscular Volume 85 fl (84-94); Platelet Count 197 K/mm3 (140-440); Red Blood Count 3.13 M/mm3 (3.65-5.03)
[2020-08-25 08:44] LABS: Red Cell Distribution Width 20.6 % (13.2-15.2)
[2020-08-25 08:57] LABS: BUN/Creatinine Ratio 20; Blood Urea Nitrogen 18 mg/dL (9-20); Calcium 7.4 mg/dL (8.4-10.2); Hemolysis Index 0
[2020-08-25] MEDS ORDERED: FAMOTIDINE 20 MG TAB PO SCH (10:00)
[2020-08-25] MEDS ORDERED: CALCIUM CARBONATE 400 MG PO SCH (10:00)
[2020-08-25] MEDS ORDERED: dilTIAZem CD 240 MG CAP PO SCH (10:00)
[2020-08-25] MEDS: CALCIUM CARBONATE 500 MG TAB CHEW PO SCH (10:14)
[2020-08-25] MEDS: FERROUS SULFATE 325 MG TAB PO SCH (10:15)
[2020-08-25] MEDS: ASPIRIN EC 81 MG TAB PO SCH (10:15)
[2020-08-25] MEDS: AZITHROMYCIN 250 MG TAB PO SCH (10:15)
[2020-08-25] MEDS: PANTOPRAZOLE 40 MG TAB PO SCH (10:15)
[2020-08-25 11:24] LABS: Myelocytes # (Manual) 0.1 K/mm3; Total Cells Counted 100
[2020-08-25 11:25] LABS: Ovalocytes 1+; Platelet Estimate Consistent w Auto; Poikilocytosis 1+
[2020-08-25 11:26] LABS: Anisocytosis 1+; Hypochromasia 1+
--- NOTE | 2020-08-25 13:07 | Progress Note ---
Subjective Date of service: 08/25/20 Interval history: 64-year-old male with past medical history of COPD, hypertension asthma PE was brought to the emergency room because of shortness of breath since this morning. Patient had an IV started by EMS and was given IV mag, Solu-Medrol and an albuterol treatment. EMS states that the patient took patient states his symptoms are worsening. Patient states 5 breathing treatment just prior to arrival and did not work. Shortness of breath better with rest and worse with e xertion. Patient states he has a long history of COPD and asthma. Patient states he had multiple visits to the ER for this. Patient denies chest pain. Patient denies fever and chills. Patient complains of dry cough. In the emergency room patient is found to have acute COPD exacerbation / A&O. Complains of dry cough and feels mildly short of breath. Also complains of diminished appetite. He denies any fever or chills. Denies chest pain, palpitations or dizziness. Lab results reviewed Assessment and plan COPD exacerbation Patient is a current smoker Slow improvement decrease Solu-Medrol to 40 mg every 8 hours Continue aggressive neb treatments with budesonide , arformoterol and DuoNeb solutions Continue empiric antibiotic but will change to p.o. Hypoxia Continue oxygen via nasal cannula "Oxygen saturation is 96 to 98% Hypertension In the low normal range Will hold extended release Cardizem for now and start him on low-dose short acting Cardizem as his blood pressure is in the low normal range but tachycardic Normocytic anemia No overt bleed Monitor H&H Hypokalemia Mild Improved Hyperglycemia A1c 5.8 Start on Accu-Cheks with sliding scale coverage as the patient is on steroids Tobacco abuse Patient counseled on tobacco cessation history of HIV infection for many years Patient states that he has not taken medication for more than a month Outpatient follow-up with his infectious disease specialist Objective - Constitutional Vitals: Vital Signs - 12hr 08/25/20 08/25/20 08/25/20 02:13 03:35 03:58 Temperature 97.9 F Pulse Rate 90 Pulse Rate [ 110 H 99 H Bilateral] Respiratory 16 Rate Respiratory 18 18 Rate [Bilateral ] Blood Pressure 92/48 O2 Sat by Pulse 96 Oximetry 08/25/20 08/25/20 08/25/20 07:41 10:12 11:05 Temperature 97.3 F L Pulse Rate 90 87 Pulse Rate [ 93 H Bilateral] Respiratory 24 Rate Respiratory 20 Rate [Bilateral ] Blood Pressure 113/82 111/56 O2 Sat by Pulse 97 99 99 Oximetry General appearance: Present: no acute distress - EENT Eyes: PERRL, EOM intact ENT: hearing intact, clear oral mucosa - Neck Neck: supple, normal ROM, no masses or JVD - Respiratory Respiratory effort: normal Respiratory: bilateral: CTA, diminished - Cardiovascular Rhythm: regular Heart Sounds: Present: S1 & S2 Extremities: No edema - Gastrointestinal General gastrointestinal: Present: soft, non-tender Rectal Exam: deferred - Genitourinary Male genitourinary: deferred - Integumentary Integumentary: clear - Musculoskeletal Musculoskeletal: strength equal bilaterally - Neurologic Neurologic: no focal deficits, moves all extremities - Psychiatric Psychiatric: appropriate mood/affect - Labs CBC & Chem 7: 08/25/20 07:21 08/25/20 07:21 Labs: Abnormal lab results 08/24/20 08/24/20 08/25/20 Range/Units 19:29 19:29 07:00 RBC 3.36 L (3.65-5.03) M/mm3 Hgb 9.7 L (11.8-15.2) gm/dl Hct 28.5 L (35.5-45.6) % RDW 20.6 H (13.2-15.2) % Seg Neuts % (Manual) 97.0 H (40.0-70.0) % Lymphocytes % (Manual) 1.0 L (13.4-35.0) % Seg Neutrophils # Man 10.2 H (1.8-7.7) K/mm3 Lymphocytes # (Manual) 0.1 L (1.2-5.4) K/mm3 Potassium 3.3 L (3.6-5.0) mmol/L Carbon Dioxide (22-30) mmol/L Glucose 121 H (75-100) mg/dL POC Glucose 211 H (70-105) mg/dL Calcium 7.6 L (8.4-10.2) mg/dL Alkaline Phosphatase 154 H (35-129) units/L Albumin 3.4 L (3.9-5) g/dL 08/25/20 08/25/20 08/25/20 Range/Units 07:21 07:21 12:06 RBC 3.13 L (3.65-5.03) M/mm3 Hgb 8.9 L (11.8-15.2) gm/dl Hct 26.5 L (35.5-45.6) % RDW 20.6 H (13.2-15.2) % Seg Neuts % (Manual) 96.0 H (40.0-70.0) % Lymphocytes % (Manual) 3.0 L (13.4-35.0) % Seg Neutrophils # Man (1.8-7.7) K/mm3 Lymphocytes # (Manual) 0.2 L (1.2-5.4) K/mm3 Potassium (3.6-5.0) mmol/L Carbon Dioxide 31 H (22-30) mmol/L Glucose 208 H (75-100) mg/dL POC Glucose 162 H (70-105) mg/dL Calcium 7.4 L (8.4-10.2) mg/dL Alkaline Phosphatase (35-129) units/L Albumin (3.9-5) g/dL HEART Score - HEART Score Troponin: Troponin T < 0.010 ng/mL (0.00-0.029) 08/24/20 19:29
[2020-08-25] MEDS: dilTIAZem 60 MG TAB PO SCH ×2 (13:37→22:25)
[2020-08-25] MEDS: ARFORMOTEROL 15 MCG/2 ML NEBU IH SCH (19:51)
[2020-08-25] MEDS: MONTELUKAST 10 MG TAB PO SCH (22:26)
[2020-08-25] MEDS: MIRTAZAPINE 15 MG TAB PO SCH (22:29)
[2020-08-25] MEDS: INSULIN LISPRO 100 UNIT/ML SUB-Q SCH (22:30)
[2020-08-26] MEDS: guaiFENesin 200 MG TAB PO SCH ×6 (01:51→21:40)
[2020-08-26] MEDS: IPRATROPIUM/ALBUTEROL SULFATE 3 ML AMPUL.NEB IH SCH ×5 (01:56→21:35)
[2020-08-26 05:22] LABS: Hematocrit 26.7 % (35.5-45.6); Hemoglobin 8.9 gm/dl (11.8-15.2); Mean Corpuscular HGB Conc 33 % (32-34); Mean Corpuscular Volume 86 fl (84-94); Platelet Count 204 K/mm3 (140-440); Red Blood Count 3.11 M/mm3 (3.65-5.03)
[2020-08-26] MEDS: dilTIAZem 60 MG TAB PO SCH (05:28)
[2020-08-26] MEDS: methylPREDNISolone Sod Succinate 40 MG/1 ML INJ IV SCH ×3 (05:28→21:42)
[2020-08-26] MEDS: HEPARIN 5,000 UNIT/1 ML VIAL SUB-Q SCH ×3 (05:29→21:42)
[2020-08-26 05:41] LABS: Red Cell Distribution Width 20.6 % (13.2-15.2)
[2020-08-26 06:06] LABS: BUN/Creatinine Ratio 26; Blood Urea Nitrogen 21 mg/dL (9-20); Hemolysis Index 0
[2020-08-26] MEDS: BUDESONIDE 0.5 MG/2 ML NEBU IH SCH ×2 (08:32→21:35)
[2020-08-26] MEDS: ARFORMOTEROL 15 MCG/2 ML NEBU IH SCH ×2 (08:33→21:35)
[2020-08-26] MEDS: AZITHROMYCIN 250 MG TAB PO SCH (09:06)
[2020-08-26] MEDS: FERROUS SULFATE 325 MG TAB PO SCH (09:07)
[2020-08-26] MEDS: ASPIRIN EC 81 MG TAB PO SCH (09:07)
[2020-08-26] MEDS: CALCIUM CARBONATE 500 MG TAB CHEW PO SCH (09:07)
[2020-08-26] MEDS: PANTOPRAZOLE 40 MG TAB PO SCH (09:07)
[2020-08-26] MEDS: dilTIAZem CD 240 MG CAP PO SCH (09:08)
--- NOTE | 2020-08-26 09:43 | Progress Note ---
Subjective Date of service: 08/26/20 Interval history: 64-year-old male with past medical history of COPD, hypertension asthma PE was brought to the emergency room because of shortness of breath since this morning. Patient had an IV started by EMS and was given IV mag, Solu-Medrol and an albuterol treatment. EMS states that the patient took patient states his symptoms are worsening. Patient states 5 breathing treatment just prior to arrival and did not work. Shortness of breath better with rest and worse with e xertion. Patient states he has a long history of COPD and asthma. Patient states he had multiple visits to the ER for this. Patient denies chest pain. Patient denies fever and chills. Patient complains of dry cough. In the emergency room patient is found to have acute COPD exacerbation 08/25 A&O. Complains of dry cough and feels mildly short of breath. Also complains of diminished appetite. He denies any fever or chills. Denies chest pain, palpitations or dizziness. Lab results reviewed 08/26 patient is sitting by bedside and eating breakfast, appears mildly short of breath, alert and oriented, complains of shortness of breath with minimal effort, has dry cough. Denies chest pain. Denies nausea or abdominal pain. Lab results reviewed Assessment and plan COPD exacerbation Patient is a current smoker Slow improvement Continue Solu-Medrol to 40 mg every 8 hours Continue aggressive neb treatments with budesonide , arformoterol and DuoNeb solutions Continue empiric antibiotic We will request pulmonary consult Hypoxia Continue oxygen via nasal cannula He is at 4 L via nasal cannula "Oxygen saturation is 94 to 97% Leukocytosis Suspect secondary to steroids Chest x-ray reviewed Monitor CBC Hypertension Restart on Cardizem CD 240 Normocytic anemia No overt bleed Monitor H&H Hypokalemia Mild Improved Hyperglycemia A1c 5.8 Accu-Cheks reviewed Continue insulin sliding scale coverage Tobacco abuse Patient counseled on tobacco cessation history of HIV infection for many years Patient states that he has not taken medication for more than a month Outpatient follow-up with his infectious disease specialist Objective - Constitutional Vitals: Vital Signs - 12hr 08/25/20 08/26/20 08/26/20 21:54 04:43 05:28 Temperature 98.0 F 98.2 F Pulse Rate 117 H 101 H 101 H Respiratory 20 20 Rate Blood Pressure 141/79 155/78 155/78 O2 Sat by Pulse 97 94 Oximetry General appearance: Present: mild distress - EENT Eyes: PERRL, EOM intact ENT: hearing intact, clear oral mucosa, no thrush - Neck Neck: supple, normal ROM - Respiratory Respiratory: bilateral: diminished, rhonchi (Bilateral diffuse expiratory r honchi) - Cardiovascular Rhythm: regular Heart Sounds: Present: S1 & S2 Extremities: No edema - Gastrointestinal General gastrointestinal: Present: soft, non-tender Rectal Exam: deferred - Genitourinary Male genitourinary: deferred - Integumentary Integumentary: clear - Musculoskeletal Musculoskeletal: strength equal bilaterally - Neurologic Neurologic: focal deficits - Psychiatric Psychiatric: appropriate mood/affect - Labs CBC & Chem 7: 08/26/20 05:09 08/26/20 05:09 Labs: Abnormal lab results 08/25/20 08/25/20 08/25/20 Range/Units 07:21 12:06 17:01 WBC (4.5-11.0) K/mm3 RBC (3.65-5.03) M/mm3 Hgb (11.8-15.2) gm/dl Hct (35.5-45.6) % RDW (13.2-15.2) % Seg Neuts % (Manual) 96.0 H (40.0-70.0) % Lymphocytes % (Manual) 3.0 L (13.4-35.0) % Lymphocytes # (Manual) 0.2 L (1.2-5.4) K/mm3 Carbon Dioxide (22-30) mmol/L BUN (9-20) mg/dL Glucose (75-100) mg/dL POC Glucose 162 H 158 H (70-105) mg/dL Calcium (8.4-10.2) mg/dL 08/25/20 08/26/20 08/26/20 Range/Units 21:52 05:09 05:09 WBC 14.9 H (4.5-11.0) K/mm3 RBC 3.11 L (3.65-5.03) M/mm3 Hgb 8.9 L (11.8-15.2) gm/dl Hct 26.7 L (35.5-45.6) % RDW 20.6 H (13.2-15.2) % Seg Neuts % (Manual) (40.0-70.0) % Lymphocytes % (Manual) (13.4-35.0) % Lymphocytes # (Manual) (1.2-5.4) K/mm3 Carbon Dioxide 31 H (22-30) mmol/L BUN 21 H (9-20) mg/dL Glucose 183 H (75-100) mg/dL POC Glucose 175 H (70-105) mg/dL Calcium 7.0 L (8.4-10.2) mg/dL 08/26/20 Range/Units 07:21 WBC (4.5-11.0) K/mm3 RBC (3.65-5.03) M/mm3 Hgb (11.8-15.2) gm/dl Hct (35.5-45.6) % RDW (13.2-15.2) % Seg Neuts % (Manual) (40.0-70.0) % Lymphocytes % (Manual) (13.4-35.0) % Lymphocytes # (Manual) (1.2-5.4) K/mm3 Carbon Dioxide (22-30) mmol/L BUN (9-20) mg/dL Glucose (75-100) mg/dL POC Glucose 149 H (70-105) mg/dL Calcium (8.4-10.2) mg/dL HEART Score - HEART Score Troponin: Troponin T < 0.010 ng/mL (0.00-0.029) 08/24/20 19:29
--- NOTE | 2020-08-26 09:48 | Electrocardiograph Report ---
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
--- NOTE | 2020-08-26 10:39 | Event Note ---
Date: 08/26/20 Patient has been seen by Dr. Kincaid, Dr. Rand and Dr. Pace as recent as Feb of this year. Assuming he follows with them as an outpatient please consult this group. I have cancelled the consult placed to me.
[2020-08-26] MEDS: MONTELUKAST 10 MG TAB PO SCH (21:41)
[2020-08-26] MEDS: MIRTAZAPINE 15 MG TAB PO SCH (21:41)
[2020-08-26] MEDS: INSULIN LISPRO 100 UNIT/ML SUB-Q SCH (21:43)
[2020-08-27] MEDS: IPRATROPIUM/ALBUTEROL SULFATE 3 ML AMPUL.NEB IH SCH ×6 (02:12→19:23)
[2020-08-27] MEDS: guaiFENesin 200 MG TAB PO SCH ×6 (02:44→21:58)
[2020-08-27 05:13] LABS: Hematocrit 25.2 % (35.5-45.6); Mean Corpuscular HGB Conc 32 % (32-34); Mean Corpuscular Volume 86 fl (84-94); Platelet Count 201 K/mm3 (140-440); Red Blood Count 2.93 M/mm3 (3.65-5.03)
[2020-08-27 05:32] LABS: BUN/Creatinine Ratio 27; Blood Urea Nitrogen 24 mg/dL (9-20); Calcium 7.3 mg/dL (8.4-10.2); Hemolysis Index 3
[2020-08-27] MEDS: HEPARIN 5,000 UNIT/1 ML VIAL SUB-Q SCH ×3 (05:57→21:58)
[2020-08-27] MEDS: methylPREDNISolone Sod Succinate 40 MG/1 ML INJ IV SCH ×3 (05:57→16:27)
[2020-08-27] MEDS: BUDESONIDE 0.5 MG/2 ML NEBU IH SCH ×2 (08:28→19:23)
[2020-08-27] MEDS: ARFORMOTEROL 15 MCG/2 ML NEBU IH SCH ×2 (08:28→20:48)
--- NOTE | 2020-08-27 10:02 | Progress Note ---
Subjective Date of service: 08/27/20 Interval history: 64-year-old male with past medical history of COPD, hypertension asthma PE was brought to the emergency room because of shortness of breath since this morning. Patient had an IV started by EMS and was given IV mag, Solu-Medrol and an albuterol treatment. EMS states that the patient took patient states his symptoms are worsening. Patient states 5 breathing treatment just prior to arrival and did not work. Shortness of breath better with rest and worse with e xertion. Patient states he has a long history of COPD and asthma. Patient states he had multiple visits to the ER for this. Patient denies chest pain. Patient denies fever and chills. Patient complains of dry cough. In the emergency room patient is found to have acute COPD exacerbation 08/25 A&O. Complains of dry cough and feels mildly short of breath. Also complains of diminished appetite. He denies any fever or chills. Denies chest pain, palpitations or dizziness. Lab results reviewed 08/26 patient is sitting by bedside and eating breakfast, appears mildly short of breath, alert and oriented, complains of shortness of breath with minimal effort, has dry cough. Denies chest pain. Denies nausea or abdominal pain. Lab results reviewed 08/27 patient is alert and oriented. Continues to be short of breath and mildly dyspneic. No significant improvement. Complains of cough mostly dry. He denies any fever or chills or chest pain. Lab results reviewed Assessment and plan COPD exacerbation Patient is a current smoker Slow improvement increase Solu-Medrol to 40 mg every 6 hours Continue aggressive neb treatments with budesonide , arformoterol and DuoNeb solutions Continue empiric antibiotic pulmonary consulted/ changed to Dr. Joe wood. pending Hypoxia Continue oxygen via nasal cannula He is at 4 L via nasal cannula "Oxygen saturation is 94 to 97% Leukocytosis Suspect secondary to steroids WBC count is down to 11.5 this morning Chest x-ray reviewed Monitor CBC Hypertension Continue Cardizem CD 240 Tachycardia Secondary to COPD exacerbation Normocytic anemia Hemoglobin is down to 8.0 this morning No overt bleed Monitor H&H Transfuse as needed Hypokalemia Mild Improved Hyperglycemia -likely secondary to steroids A1c 5.8 Accu-Cheks reviewed Continue insulin sliding scale coverage Tobacco abuse Patient counseled on tobacco cessation history of HIV infection for many years Patient states that he has not taken medication for more than a month Outpatient follow-up with his infectious disease specialist Objective - Constitutional Vitals: Vital Signs - 12hr 08/26/20 08/27/20 08/27/20 22:00 02:10 05:08 Temperature 98.0 F Pulse Rate 94 H Pulse Rate [ 95 H Bilateral] Respiratory 20 Rate Respiratory 20 Rate [Bilateral ] Blood Pressure 120/77 O2 Sat by Pulse 95 98 Oximetry 08/27/20 08/27/20 08:29 08:30 Temperature Pulse Rate Pulse Rate [ 110 H Bilateral] Respiratory Rate Respiratory 18 Rate [Bilateral ] Blood Pressure O2 Sat by Pulse 97 Oximetry General appearance: Present: no acute distress, well-nourished - EENT Eyes: PERRL, EOM intact ENT: hearing intact, clear oral mucosa - Neck Neck: supple, normal ROM, no masses or JVD - Respiratory Respiratory: bilateral: diminished, rhonchi (Diffuse bilateral inspiratory and expiratory rhonchi), negative: rales - Cardiovascular Rhythm: regular Heart Sounds: Present: S1 & S2 Extremity abnormal: edema (Trace dorsal pedal edema) - Gastrointestinal General gastrointestinal: Present: soft, non-tender Rectal Exam: deferred - Genitourinary Male genitourinary: deferred - Integumentary Integumentary: clear - Musculoskeletal Musculoskeletal: strength equal bilaterally - Neurologic Neurologic: no focal deficits, moves all extremities - Psychiatric Psychiatric: appropriate mood/affect - Labs CBC & Chem 7: 08/27/20 04:41 08/27/20 04:41 Labs: Abnormal lab results 08/26/20 08/26/20 08/26/20 Range/Units 11:21 16:49 21:19 WBC (4.5-11.0) K/mm3 RBC (3.65-5.03) M/mm3 Hgb (11.8-15.2) gm/dl Hct (35.5-45.6) % MCH (28-32) pg RDW (13.2-15.2) % Carbon Dioxide (22-30) mmol/L BUN (9-20) mg/dL Glucose (75-100) mg/dL POC Glucose 145 H 177 H 144 H (70-105) mg/dL Calcium (8.4-10.2) mg/dL 08/27/20 08/27/20 08/27/20 Range/Units 04:41 04:41 07:25 WBC 11.5 H (4.5-11.0) K/mm3 RBC 2.93 L (3.65-5.03) M/mm3 Hgb 8.0 L (11.8-15.2) gm/dl Hct 25.2 L (35.5-45.6) % MCH 27 L (28-32) pg RDW 21.0 H (13.2-15.2) % Carbon Dioxide 35 H (22-30) mmol/L BUN 24 H (9-20) mg/dL Glucose 173 H (75-100) mg/dL POC Glucose 153 H (70-105) mg/dL Calcium 7.3 L (8.4-10.2) mg/dL 08/27/20 Range/Units 07:30 WBC (4.5-11.0) K/mm3 RBC (3.65-5.03) M/mm3 Hgb (11.8-15.2) gm/dl Hct (35.5-45.6) % MCH (28-32) pg RDW (13.2-15.2) % Carbon Dioxide (22-30) mmol/L BUN (9-20) mg/dL Glucose (75-100) mg/dL POC Glucose 143 H (70-105) mg/dL Calcium (8.4-10.2) mg/dL HEART Score - HEART Score Troponin: Troponin T < 0.010 ng/mL (0.00-0.029) 08/24/20 19:29
[2020-08-27] MEDS: AZITHROMYCIN 250 MG TAB PO SCH (10:29)
[2020-08-27] MEDS: dilTIAZem CD 240 MG CAP PO SCH (10:29)
[2020-08-27] MEDS: FERROUS SULFATE 325 MG TAB PO SCH (10:30)
[2020-08-27] MEDS: PANTOPRAZOLE 40 MG TAB PO SCH (10:30)
[2020-08-27] MEDS: ASPIRIN EC 81 MG TAB PO SCH (10:30)
[2020-08-27] MEDS: CALCIUM CARBONATE 500 MG TAB CHEW PO SCH (10:30)
[2020-08-27] MEDS: oxyCODONE /ACETAMINOPHEN 5-325MG TAB PO PRN (14:27)
[2020-08-27] MEDS: hydrALAZINE 20 MG/1 ML INJ IV PRN (16:27)
--- NOTE | 2020-08-27 18:44 | Consultation ---
History of Present Illness Consult date: 08/27/20 Reason for consult: dyspnea, cough, COPD, hypoxemia History of present illness: 64-year-old male with past medical history of COPD, hypertension, Diabetes,asthma PE was brought to the emergency room because of shortness of breath since this morning. Patient had an IV started by EMS and was given IV mag, Solu-Medrol and an albuterol treatment. EMS states that the patient states his symptoms are worsening. Patient states 5 breathing treatment just prior to arrival and did not work. Shortness of breath better with rest and worse with exertion. Patient states he has a long history of COPD and asthma. Patient states he had multiple visits to the ER for this. Patient denies chest pain. Patient denies fever and chills. Patient complains of dry cough Patient has history of smoking 1 pack x 40 years. Says stopped smoking 2 months ago. History of using Cocaine. Denies alcohol abuse. Says worked in [employer] before he disabled. Patient and has two children.No Known drug allergies Patient awake. Having some increase in work of breathing at rest. Complaining some productive cough. Chest tightness with shortness of breath. O2 saturation 99% on 5 litres O2. Patient afebrile and has mild leukocytosis. Chest xray done 08/24/20 reported There is hyperinflation the lungs. No focal infiltrate is seen. Calcified granulomata are noted in the upper lung zones bilaterally. No pneumothorax. Patient is on I/V solumedrol, Albuterol/atrovent aerosol treatments, Zithromax, S/C Heparin and Protonix. Past History Past Medical History: COPD, hypertension, hyperlipidemia, other (Pulmonary embolism, HIV) Medications and Allergies Allergies Allergy/AdvReac Type Severity Reaction Status Date / Time No Known Allergies Allergy Verified 05/15/20 09:18 Home Medications Medication Instructions Recorded Confirmed Last Taken Type AtorvaSTATin [Lipitor] 40 mg PO QHS tablet 04/11/20 08/25/20 08/24/20 Rx Docusate Sodium [Colace CAP] 100 mg PO BID PRN #60 capsule 04/27/20 08/25/20 08/24/20 Rx Calcium Carbonate [Calcium 400 mg PO QDAY 30 Days #30 tab.chew 05/13/20 08/25/20 08/24/20 Rx Carbonate 400MG CHEW] Ferrous Sulfate [Feosol 325 MG tab] 325 mg PO QDAY 60 Days #60 tablet 05/13/20 08/25/20 08/24/20 Rx Pantoprazole [Protonix TAB] 40 mg PO QDAY 30 Days #30 tablet 05/13/20 08/25/20 08/24/20 Rx Aspirin EC [Halfprin EC] 81 mg PO QDAY #100 tablet. 05/15/20 08/25/20 08/24/20 Rx dilTIAZem CD [Cardizem CD] 240 mg PO QDAY #30 capsule 05/15/20 08/25/20 08/24/20 Rx Ipratropium/Albuterol Sulfate 1 ampul IH TIDRT #50 ampul.neb 05/16/20 08/25/20 08/24/20 Rx [DUONEB *Not for PRN Use*] guaiFENesin [Guaifenesin] 400 mg PO Q4H #20 tablet 05/24/20 08/25/20 08/24/20 Rx Acetaminophen [8 Hour 650 mg PO Q6HR PRN #20 tablet.er 05/31/20 08/25/20 08/24/20 Rx Acetaminophen] Montelukast [Singulair] 10 mg PO QHS #30 tablet 05/31/20 08/25/20 08/24/20 Rx Ibuprofen [Motrin 800 MG tab] 800 mg PO Q8HR PRN #20 tablet 06/17/20 08/25/20 08/24/20 Rx Albuterol Sulfate [Proventil Hfa] 6.7 gm IH QID PRN #1 hfa.aer.ad 07/10/20 08/25/20 08/24/20 Rx traMADoL [Ultram] 50 mg PO Q6HR PRN #10 tablet 07/10/20 08/25/20 08/24/20 Rx Albuterol Mdi (or & Nicu Only) 2 puff IH QID PRN #8.5 gram 07/13/20 08/25/20 08/24/20 Rx [ProAir HFA Inhaler] Prednisone [predniSONE 10 mg 10 mg PO .TAPER #1 tab.ds.pk 07/13/20 08/25/20 08/24/20 Rx (6-Day Pack, 21 Tabs)] oxyCODONE /ACETAMINOPHEN [Percocet 1 tab PO BID PRN #8 tablet 07/13/20 08/25/20 08/24/20 Rx 5/325] Active Meds: Active Medications Acetaminophen (Acetaminophen 325 Mg Tab) 650 mg PO Q4H PRN PRN Reason: Pain MILD(1-3)/Fever >100.5/KOENIG Albuterol/Ipratropium (Ipratropium/Albuterol Sulfate 3 Ml Ampul.Neb) 1 ampul IH Q4H COUNTS INCLUDE 234 BEDS AT THE [facility] Last Admin: 08/27/20 13:27 Dose: 1 ampul Documented by: Arformoterol Tartrate (Arformoterol 15 Mcg/2 Ml Nebu) 15 mcg IH Q12HRT COUNTS INCLUDE 234 BEDS AT THE [facility] Last Admin: 08/27/20 08:28 Dose: 15 mcg Documented by: Aspirin (Aspirin Ec 81 Mg Tab) 81 mg PO QDAY COUNTS INCLUDE 234 BEDS AT THE [facility] Last Admin: 08/27/20 10:30 Dose: 81 mg Documented by: Atorvastatin Calcium (Atorvastatin 40 Mg Tab) 40 mg PO QHS COUNTS INCLUDE 234 BEDS AT THE [facility] Last Admin: 08/26/20 21:41 Dose: 40 mg Documented by: Azithromycin (Azithromycin 250 Mg Tab) 250 mg PO QDAY COUNTS INCLUDE 234 BEDS AT THE [facility]; Protocol Stop: 08/29/20 10:01 Last Admin: 08/27/20 10:29 Dose: 250 mg Documented by: Budesonide (Budesonide 0.5 Mg/2 Ml Nebu) 0.5 mg IH Q12HRT COUNTS INCLUDE 234 BEDS AT THE [facility] Last Admin: 08/27/20 08:28 Dose: 0.5 mg Documented by: Calcium Carbonate/Glycine (Calcium Carbonate 500 Mg Tab Chew) 500 mg PO QDAY COUNTS INCLUDE 234 BEDS AT THE [facility] Last Admin: 08/27/20 10:30 Dose: 500 mg Documented by: Diltiazem HCl (Diltiazem Cd 240 Mg Cap) 240 mg PO QDAY COUNTS INCLUDE 234 BEDS AT THE [facility] Last Admin: 08/27/20 10:29 Dose: 240 mg Documented by: Docusate Sodium (Docusate Sodium 100 Mg Cap) 100 mg PO BID PRN PRN Reason: Constip unreliev by MOM/or NPO Ferrous Sulfate (Ferrous Sulfate 325 Mg Tab) 325 mg PO QDAY COUNTS INCLUDE 234 BEDS AT THE [facility] Last Admin: 08/27/20 10:30 Dose: 325 mg Documented by: Guaifenesin (Guaifenesin 200 Mg Tab) 400 mg PO Q4HR COUNTS INCLUDE 234 BEDS AT THE [facility] Last Admin: 08/27/20 17:50 Dose: 400 mg Documented by: Heparin Sodium (Porcine) (Heparin 5,000 Unit/1 Ml Vial) 5,000 unit SUB-Q Q8HR COUNTS INCLUDE 234 BEDS AT THE [facility] Last Admin: 08/27/20 13:31 Dose: 5,000 unit Documented by: Hydralazine HCl (Hydralazine 20 Mg/1 Ml Inj) 10 mg IV Q6H PRN PRN Reason: Blood Pressure Last Admin: 08/27/20 16:27 Dose: 10 mg Documented by: Insulin Human Lispro (Insulin Lispro 100 Unit/Ml) 0 unit SUB-Q QHS COUNTS INCLUDE 234 BEDS AT THE [facility]; Protocol Last Admin: 08/26/20 21:43 Dose: Not Given Documented by: Methylprednisolone Sodium Succinate (Methylprednisolone Sod Succinate 40 Mg/1 Ml Inj) 40 mg IV Q6H COUNTS INCLUDE 234 BEDS AT THE [facility] Last Admin: 08/27/20 16:27 Dose: 40 mg Documented by: Mirtazapine (Mirtazapine 15 Mg Tab) 7.5 mg PO QHS COUNTS INCLUDE 234 BEDS AT THE [facility] Last Admin: 08/26/20 21:41 Dose: 7.5 mg Documented by: Montelukast Sodium (Montelukast 10 Mg Tab) 10 mg PO QHS COUNTS INCLUDE 234 BEDS AT THE [facility] Last Admin: 08/26/20 21:41 Dose: 10 mg Documented by: Ondansetron HCl (Ondansetron 4 Mg/2 Ml Inj) 4 mg IV Q8H PRN PRN Reason: Nausea And Vomiting Oxycodone/Acetaminophen (Oxycodone /Acetaminophen 5-325mg Tab) 1 tab PO BID PRN PRN Reason: Pain , Severe (7-10) Last Admin: 08/27/20 14:27 Dose: 1 tab Documented by: Pantoprazole Sodium (Pantoprazole 40 Mg Tab) 40 mg PO QDAY COUNTS INCLUDE 234 BEDS AT THE [facility] Last Admin: 08/27/20 10:30 Dose: 40 mg Documented by: Sodium Chloride (Sodium Chloride 0.9% 10 Ml Flush Syringe) 10 ml IV BID COUNTS INCLUDE 234 BEDS AT THE [facility] Last Admin: 08/27/20 10:30 Dose: 10 ml Documented by: Sodium Chloride (Sodium Chloride 0.9% 10 Ml Flush Syringe) 10 ml IV PRN PRN PRN Reason: LINE FLUSH Tramadol HCl (Tramadol 50 Mg Tab) 50 mg PO Q6HR PRN PRN Reason: Pain, Moderate (4-6) Review of Systems All systems: negative Physical Examination Vital signs: Vital Signs Pulse Ox 97 08/24/20 18:22 General appearance: alert, appears uncomfortable, other (Slight increased work of breathing at rest,) Eyes: non-icteric ENT: oropharynx moist Neck: supple, no JVD Ascultation: Bilateral: diminished breath sounds, wheezes, other (Prolonged expiratory phase.) Cardiovascular: regular rate and rhythm Gastrointestinal: normoactive bowel sounds, soft, non-tender Integumentary: normal Extremities: no cyanosis, no edema Musculoskeletal: no deformities, joint inflammation normal mental status, non-focal exam, pupils equal and round anxious, depressed Results - Laboratory Findings CBC and BMP: 08/28/20 05:55 08/28/20 05:55 Abnormal lab findings: Abnormal Labs 08/24/20 08/24/20 08/25/20 19:29 19:29 07:00 WBC RBC 3.36 L Hgb 9.7 L Hct 28.5 L MCH RDW 20.6 H Seg Neuts % (Manual) 97.0 H Lymphocytes % (Manual) 1.0 L Seg Neutrophils # Man 10.2 H Lymphocytes # (Manual) 0.1 L Potassium 3.3 L Carbon Dioxide BUN Glucose 121 H POC Glucose 211 H Calcium 7.6 L Alkaline Phosphatase 154 H Albumin 3.4 L 08/25/20 08/25/20 08/25/20 07:21 07:21 12:06 WBC RBC 3.13 L Hgb 8.9 L Hct 26.5 L MCH RDW 20.6 H Seg Neuts % (Manual) 96.0 H Lymphocytes % (Manual) 3.0 L Seg Neutrophils # Man Lymphocytes # (Manual) 0.2 L Potassium Carbon Dioxide 31 H BUN Glucose 208 H POC Glucose 162 H Calcium 7.4 L Alkaline Phosphatase Albumin 08/25/20 08/25/20 08/26/20 17:01 21:52 05:09 WBC 14.9 H RBC 3.11 L Hgb 8.9 L Hct 26.7 L MCH RDW 20.6 H Seg Neuts % (Manual) Lymphocytes % (Manual) Seg Neutrophils # Man Lymphocytes # (Manual) Potassium Carbon Dioxide BUN Glucose POC Glucose 158 H 175 H Calcium Alkaline Phosphatase Albumin 08/26/20 08/26/20 08/26/20 05:09 07:21 11:21 WBC RBC Hgb Hct MCH RDW Seg Neuts % (Manual) Lymphocytes % (Manual) Seg Neutrophils # Man Lymphocytes # (Manual) Potassium Carbon Dioxide 31 H BUN 21 H Glucose 183 H POC Glucose 149 H 145 H Calcium 7.0 L Alkaline Phosphatase Albumin 08/26/20 08/26/20 08/27/20 16:49 21:19 04:41 WBC 11.5 H RBC 2.93 L Hgb 8.0 L Hct 25.2 L MCH 27 L RDW 21.0 H Seg Neuts % (Manual) Lymphocytes % (Manual) Seg Neutrophils # Man Lymphocytes # (Manual) Potassium Carbon Dioxide BUN Glucose POC Glucose 177 H 144 H Calcium Alkaline Phosphatase Albumin 08/27/20 08/27/20 08/27/20 04:41 07:25 07:30 WBC RBC Hgb Hct MCH RDW Seg Neuts % (Manual) Lymphocytes % (Manual) Seg Neutrophils # Man Lymphocytes # (Manual) Potassium Carbon Dioxide 35 H BUN 24 H Glucose 173 H POC Glucose 153 H 143 H Calcium 7.3 L Alkaline Phosphatase Albumin 08/27/20 08/27/20 11:27 15:49 WBC RBC Hgb Hct MCH RDW Seg Neuts % (Manual) Lymphocytes % (Manual) Seg Neutrophils # Man Lymphocytes # (Manual) Potassium Carbon Dioxide BUN Glucose POC Glucose 236 H 184 H Calcium Alkaline Phosphatase Albumin - Diagnostic Findings Chest x-ray: report reviewed, image reviewed Additional studies: CHEST 1 VIEW 08/24/2020 6:44 PM INDICATION / CLINICAL INFORMATION: Dyspnea. COMPARISON: 07/10/2020 FINDINGS: SUPPORT DEVICES: None. HEART / MEDIASTINUM: Unchanged LUNGS / PLEURA: There is hyperinflation the lungs. No focal infiltrate is seen. Calcified granulomata are noted in the upper lung zones bilaterally. No pneumothorax. ADDITIONAL FINDINGS: No significant additional findings. IMPRESSION: 1. No significant change. Assessment and Plan 64-year-old male with past medical history of COPD, hypertension, Diabetes,asthma PE was brought to the emergency room because of shortness of breath since this morning. Patient had an IV started by EMS and was given IV mag, Solu-Medrol and an albuterol treatment. EMS states that the patient states his symptoms are worsening. Patient states 5 breathing treatment just prior to arrival and did not work. Shortness of breath better with rest and worse with exertion. Patient states he has a long history of COPD and asthma. Patient states he had multiple visits to the ER for this. Patient denies chest pain. Patient denies fever and chills. Patient complains of dry cough Patient has history of smoking 1 pack x 40 years. Says stopped smoking 2 months ago. History of using Cocaine. Denies alcohol abuse. 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 Patient and has two children.No Known drug allergies Patient awake. Having some increase in work of breathing at rest. Complaining some productive cough. Chest tightness with shortness of breath. O2 saturation 99% on 5 litres O2. Patient afebrile and has mild leukocytosis. Chest xray done 08/24/20 reported There is hyperinflation the lungs. No focal infiltrate is seen. Calcified granulomata are noted in the upper lung zones bilaterally. No pneumothorax. Patient is on I/V solumedrol, Albuterol/atrovent aerosol treatments, Zithromax, S/C Heparin and Protonix. - Patient Problems (1) Acute respiratory failure with hypoxia Current Visit: No Status: Acute Plan to address problem: O2 5 litres via nasal canula. Continue I/V solumedrol Albuterol/atrovent aerosol treatments S/C Heparine. Famotidine. (2) COPD exacerbation Current Visit: No Status: Acute Plan to address problem: O2 5 litres via nasal canula. Continue I/V solumedrol Albuterol/atrovent aerosol treatments S/C Heparine. Famotidine. Zithromax. ABGs on O2. (3) ANGELIC (acute kidney injury) Current Visit: No Status: Acute Plan to address problem: Management as per nephrology. (4) GERD (gastroesophageal reflux disease) Current Visit: No Status: Acute Plan to address problem: Patient is on Protonix. (5) HIV (human immunodeficiency virus infection) Current Visit: No Status: Acute Qualifiers: Plan to address problem: Management as per infectious disease consultants. (6) Hypertension Current Visit: No Status: Acute Plan to address problem: Management as per primary care. (7) Cocaine use Current Visit: No Status: Chronic Plan to address problem: Counseled do not use any illegal drugs. (8) Tobacco use Current Visit: No Status: Chronic Plan to address problem: Counseled continue stop smoking.
[2020-08-27] MEDS ORDERED: methylPREDNISolone Sod Succinate 40 MG/1 ML INJ IV SCH (20:16)
[2020-08-27] MEDS: MONTELUKAST 10 MG TAB PO SCH (21:58)
[2020-08-27] MEDS: MIRTAZAPINE 15 MG TAB PO SCH (21:58)
[2020-08-27] MEDS: INSULIN LISPRO 100 UNIT/ML SUB-Q SCH (21:59)
[2020-08-28] MEDS: methylPREDNISolone Sod Succinate 125 MG/2 ML INJ IV SCH ×5 (00:32→23:01)
[2020-08-28] MEDS: guaiFENesin 200 MG TAB PO SCH ×6 (01:50→21:26)
[2020-08-28] MEDS: IPRATROPIUM/ALBUTEROL SULFATE 3 ML AMPUL.NEB IH SCH ×8 (02:24→20:06)
[2020-08-28] MEDS: HEPARIN 5,000 UNIT/1 ML VIAL SUB-Q SCH ×3 (05:52→21:27)
[2020-08-28 06:48] LABS: Hematocrit 22.1 % (35.5-45.6); Hemoglobin 7.6 gm/dl (11.8-15.2); Mean Corpuscular HGB Conc 35 % (32-34); Mean Corpuscular Volume 85 fl (84-94); Platelet Count 165 K/mm3 (140-440); Red Blood Count 2.58 M/mm3 (3.65-5.03); Red Cell Distribution Width 20.3 % (13.2-15.2)
[2020-08-28 07:03] LABS: BUN/Creatinine Ratio 28; Blood Urea Nitrogen 33 mg/dL (9-20); Calcium 6.8 mg/dL (8.4-10.2); Hemolysis Index 5
[2020-08-28] MEDS: BUDESONIDE 0.5 MG/2 ML NEBU IH SCH ×2 (07:31→20:06)
[2020-08-28] MEDS: ARFORMOTEROL 15 MCG/2 ML NEBU IH SCH (07:31)
[2020-08-28] MEDS: traMADol 50 MG TAB PO PRN (09:18)
[2020-08-28] MEDS: ASPIRIN EC 81 MG TAB PO SCH (09:18)
[2020-08-28] MEDS: AZITHROMYCIN 250 MG TAB PO SCH (09:18)
[2020-08-28] MEDS: CALCIUM CARBONATE 500 MG TAB CHEW PO SCH (09:18)
[2020-08-28] MEDS: FERROUS SULFATE 325 MG TAB PO SCH (09:18)
[2020-08-28] MEDS: PANTOPRAZOLE 40 MG TAB PO SCH (09:18)
[2020-08-28] MEDS: dilTIAZem CD 240 MG CAP PO SCH (09:21)
--- NOTE | 2020-08-28 09:58 | Progress Note ---
Subjective Date of service: 08/28/20 Interval history: 64-year-old male with past medical history of COPD, hypertension asthma PE was brought to the emergency room because of shortness of breath since this morning. Patient had an IV started by EMS and was given IV mag, Solu-Medrol and an albuterol treatment. EMS states that the patient took patient states his symptoms are worsening. Patient states 5 breathing treatment just prior to arrival and did not work. Shortness of breath better with rest and worse with e xertion. Patient states he has a long history of COPD and asthma. Patient states he had multiple visits to the ER for this. Patient denies chest pain. Patient denies fever and chills. Patient complains of dry cough. In the emergency room patient is found to have acute COPD exacerbation 08/25 A&O. Complains of dry cough and feels mildly short of breath. Also complains of diminished appetite. He denies any fever or chills. Denies chest pain, palpitations or dizziness. Lab results reviewed 08/26 patient is sitting by bedside and eating breakfast, appears mildly short of breath, alert and oriented, complains of shortness of breath with minimal effort, has dry cough. Denies chest pain. Denies nausea or abdominal pain. Lab results reviewed 08/27 patient is alert and oriented. Continues to be short of breath and mildly dyspneic. No significant improvement. Complains of cough mostly dry. He denies any fever or chills or chest pain. Lab results reviewed 08/28 mildly short of breath, alert and oriented, states he feels no better, lab results reviewed, pulmonary note reviewed Assessment and plan COPD exacerbation Patient is a current smoker Continue aggressive neb treatments with budesonide , arformoterol and DuoNeb solutions Continue empiric antibiotic pulmonary consulted/pulmonary consult note reviewed Solu-Medrol increased to 60 mg every 6 hours Hypoxia Continue oxygen via nasal cannula He is at 4 L via nasal cannula "Oxygen saturation is 94 to 97% Leukocytosis-improved Suspect secondary to steroids WBC count is down to 11.5 this morning Chest x-ray reviewed Monitor CBC Hypertension Continue Cardizem CD 240 Tachycardia Secondary to COPD exacerbation Normocytic anemia Hemoglobin is down to 8.0 > 7.6 this morning No overt bleed Monitor H&H Transfuse as needed Hypokalemia Mild Potassium supplements ordered Hyperglycemia -likely secondary to steroids A1c 5.8 Accu-Cheks reviewed Continue insulin sliding scale coverage Tobacco abuse Patient counseled on tobacco cessation history of HIV infection for many years Patient states that he has not taken medication for more than a month Outpatient follow-up with his infectious disease specialist Objective - Constitutional Vitals: Vital Signs - 12hr 08/27/20 08/28/20 08/28/20 22:00 02:35 05:16 Temperature 98.7 F Pulse Rate 80 Pulse Rate [ 91 H Bilateral] Respiratory 24 Rate Respiratory 20 Rate [Bilateral ] Blood Pressure 114/57 O2 Sat by Pulse 97 98 Oximetry 08/28/20 09:21 Temperature Pulse Rate 80 Pulse Rate [ Bilateral] Respiratory Rate Respiratory Rate [Bilateral ] Blood Pressure 114/57 O2 Sat by Pulse Oximetry General appearance: Present: no acute distress - EENT Eyes: PERRL, EOM intact ENT: hearing intact, clear oral mucosa - Neck Neck: supple, normal ROM - Respiratory Respiratory effort: normal Respiratory: bilateral: diminished, rhonchi (Diffuse bilateral rhonchi) - Cardiovascular Rhythm: regular Heart Sounds: Present: S1 & S2 Extremities: No edema - Gastrointestinal General gastrointestinal: Present: soft, non-tender Rectal Exam: deferred - Genitourinary Male genitourinary: deferred - Integumentary Integumentary: clear - Musculoskeletal Musculoskeletal: strength equal bilaterally - Neurologic Neurologic: no focal deficits - Psychiatric Psychiatric: appropriate mood/affect - Labs CBC & Chem 7: 08/28/20 05:55 08/28/20 05:55 Labs: Abnormal lab results 08/27/20 08/27/20 08/27/20 Range/Units 11:27 15:49 21:17 RBC (3.65-5.03) M/mm3 Hgb (11.8-15.2) gm/dl Hct (35.5-45.6) % MCHC (32-34) % RDW (13.2-15.2) % Potassium (3.6-5.0) mmol/L BUN (9-20) mg/dL Glucose (75-100) mg/dL POC Glucose 236 H 184 H 144 H (70-105) mg/dL Calcium (8.4-10.2) mg/dL 08/28/20 08/28/20 08/28/20 Range/Units 05:55 05:55 07:25 RBC 2.58 L (3.65-5.03) M/mm3 Hgb 7.6 L (11.8-15.2) gm/dl Hct 22.1 L (35.5-45.6) % MCHC 35 H (32-34) % RDW 20.3 H (13.2-15.2) % Potassium 3.5 L (3.6-5.0) mmol/L BUN 33 H (9-20) mg/dL Glucose 183 H (75-100) mg/dL POC Glucose 164 H (70-105) mg/dL Calcium 6.8 L (8.4-10.2) mg/dL HEART Score - HEART Score Troponin: Troponin T < 0.010 ng/mL (0.00-0.029) 08/24/20 19:29
[2020-08-28] MEDS: POLYETHYLENE GLYCOL 3350 17 GM POWDER PO SCH (10:24)
--- NOTE | 2020-08-28 13:37 | Progress Note ---
Assessment and Plan 64-year-old male with past medical history of COPD, hypertension, Diabetes,asthma PE was brought to the emergency room because of shortness of breath since this morning. Patient had an IV started by EMS and was given IV mag, Solu-Medrol and an albuterol treatment. EMS states that the patient states his symptoms are worsening. Patient states 5 breathing treatment just prior to arrival and did not work. Shortness of breath better with rest and worse with exertion. Patient states he has a long history of COPD and asthma. Patient states he had multiple visits to the ER for this. Patient denies chest pain. Patient denies fever and chills. Patient complains of dry cough Patient has history of smoking 1 pack x 40 years. Says stopped smoking 2 months ago. History of using Cocaine. Denies alcohol abuse. Says worked in [employer] field before he disabled. Patient and has two children.No Known drug allergies Patient awake. Patient still Having some increase in work of breathing at rest. Shortness of breath better than yesterday. Still complaining some cough. O2 saturation 96% on 5 litres O2. Patient afebrile and has no leukocytosis. Chest xray done 08/24/20 reported There is hyperinflation the lungs. No focal infiltrate is seen. Calcified granulomata are noted in the upper lung zones bilaterally. No pneumothorax. ABGs on 5 litres O2. ABG pH 7.316 (7.320-7.450) L 08/28/20 11:00 POC ABG pCO2 68.0 mmHg (32.0-48.0) H 08/28/20 11:00 POC ABG pO2 75.4 mmHg (83-108) L 08/28/20 11:00 POC ABG HCO3 33.9 08/28/20 11:00 ABG O2 Saturation 93.6 (0-100) 08/28/20 11:00 Patient is on I/V solumedrol, Albuterol/atrovent aerosol treatments, Zithromax, S/C Heparin and Protonix. - Patient Problems (1) Acute respiratory failure with hypoxia Current Visit: No Status: Acute Plan to address problem: O2 5 litres via nasal canula. Continue I/V solumedrol Albuterol/atrovent aerosol treatments S/C Heparine. Famotidine. (2) COPD exacerbation Current Visit: No Status: Acute Plan to address problem: O2 5 litres via nasal canula. Continue I/V solumedrol Albuterol/atrovent aerosol treatments S/C Heparine. Famotidine. Zithromax. (3) ANGELIC (acute kidney injury) Current Visit: No Status: Acute Plan to address problem: Management as per nephrology. (4) GERD (gastroesophageal reflux disease) Current Visit: No Status: Acute Plan to address problem: Patient is on Protonix. (5) HIV (human immunodeficiency virus infection) Current Visit: No Status: Acute Qualifiers: Plan to address problem: Management as per infectious disease consultants. (6) Hypertension Current Visit: No Status: Acute Plan to address problem: Management as per primary care. (7) Cocaine use Current Visit: No Status: Chronic Plan to address problem: Counseled do not use any illegal drugs. (8) Tobacco use Current Visit: No Status: Chronic Plan to address problem: Counseled continue stop smoking. Subjective Date of service: 08/28/20 Interval history: 64-year-old male with past medical history of COPD, hypertension, Diabetes,asthma PE was brought to the emergency room because of shortness of breath since this morning. Patient had an IV started by EMS and was given IV mag, Solu-Medrol and an albuterol treatment. EMS states that the patient states his symptoms are worsening. Patient states 5 breathing treatment just prior to arrival and did not work. Shortness of breath better with rest and worse with exertion. Patient states he has a long history of COPD and asthma. Patient states he had multiple visits to the ER for this. Patient denies chest pain. Patient denies fever and chills. Patient complains of dry cough Patient has history of smoking 1 pack x 40 years. Says stopped smoking 2 months ago. History of using Cocaine. Denies alcohol abuse. Says worked in [employer] before he disabled. Patient and has two children.No Known drug allergies Patient awake. Patient still Having some increase in work of breathing at rest. Shortness of breath better than yesterday. Still complaining some cough. O2 saturation 96% on 5 litres O2. Patient afebrile and has no leukocytosis. Chest xray done 08/24/20 reported There is hyperinflation the lungs. No focal infiltrate is seen. Calcified granulomata are noted in the upper lung zones bilaterally. No pneumothorax. ABG on 5 litres O2. ABG pH 7.316 (7.320-7.450) L 08/28/20 11:00 POC ABG pCO2 68.0 mmHg (32.0-48.0) H 08/28/20 11:00 POC ABG pO2 75.4 mmHg (83-108) L 08/28/20 11:00 POC ABG HCO3 33.9 08/28/20 11:00 ABG O2 Saturation 93.6 (0-100) 08/28/20 11:00 Patient is on I/V solumedrol, Albuterol/atrovent aerosol treatments, Zithromax, S/C Heparin and Protonix. Objective Vital Signs - 12hr 08/28/20 08/28/20 08/28/20 02:35 05:16 09:21 Temperature 98.7 F Pulse Rate 80 80 Pulse Rate [ 91 H Bilateral] Respiratory 24 Rate Respiratory 20 Rate [Bilateral ] Blood Pressure 114/57 114/57 O2 Sat by Pulse 98 Oximetry Constitutional: alert, appears uncomfortable, other (Slight increased work of breathing at rest,) Eyes: non-icteric ENT: oropharynx moist Neck: supple, no JVD Ascultation: Bilateral: diminished breath sounds, wheezes, other (Prolonged expiratory phase.) Cardiovascular: regular rate and rhythm Gastrointestinal: normoactive bowel sounds, soft, non-tender Integumentary: normal Extremities: no cyanosis, no edema Neurologic: normal mental status, non-focal exam, pupils equal and round Psychiatric: anxious, depressed CBC and BMP: 08/28/20 05:55 08/28/20 05:55 ABG, PT/INR, D-dimer: ABG ABG pH 7.316 (7.320-7.450) L 08/28/20 11:00 POC ABG pCO2 68.0 mmHg (32.0-48.0) H 08/28/20 11:00 POC ABG pO2 75.4 mmHg (83-108) L 08/28/20 11:00 POC ABG HCO3 33.9 08/28/20 11:00 ABG O2 Saturation 93.6 (0-100) 08/28/20 11:00 Abnormal lab findings: Abnormal Labs 08/24/20 08/24/20 08/25/20 19:29 19:29 07:00 WBC RBC 3.36 L Hgb 9.7 L Hct 28.5 L MCH MCHC RDW 20.6 H Seg Neuts % (Manual) 97.0 H Lymphocytes % (Manual) 1.0 L Seg Neutrophils # Man 10.2 H Lymphocytes # (Manual) 0.1 L ABG pH POC ABG pCO2 POC ABG pO2 ABG Hemoglobin ABG Oxyhemoglobin ABG Glucose Potassium 3.3 L Carbon Dioxide BUN Glucose 121 H POC Glucose 211 H Calcium 7.6 L Alkaline Phosphatase 154 H Albumin 3.4 L Arterial Blood Glucose Arterial Blood Ionized Calcium 08/25/20 08/25/20 08/25/20 07:21 07:21 12:06 WBC RBC 3.13 L Hgb 8.9 L Hct 26.5 L MCH MCHC RDW 20.6 H Seg Neuts % (Manual) 96.0 H Lymphocytes % (Manual) 3.0 L Seg Neutrophils # Man Lymphocytes # (Manual) 0.2 L ABG pH POC ABG pCO2 POC ABG pO2 ABG Hemoglobin ABG Oxyhemoglobin ABG Glucose Potassium Carbon Dioxide 31 H BUN Glucose 208 H POC Glucose 162 H Calcium 7.4 L Alkaline Phosphatase Albumin Arterial Blood Glucose Arterial Blood Ionized Calcium 08/25/20 08/25/20 08/26/20 17:01 21:52 05:09 WBC 14.9 H RBC 3.11 L Hgb 8.9 L Hct 26.7 L MCH MCHC RDW 20.6 H Seg Neuts % (Manual) Lymphocytes % (Manual) Seg Neutrophils # Man Lymphocytes # (Manual) ABG pH POC ABG pCO2 POC ABG pO2 ABG Hemoglobin ABG Oxyhemoglobin ABG Glucose Potassium Carbon Dioxide BUN Glucose POC Glucose 158 H 175 H Calcium Alkaline Phosphatase Albumin Arterial Blood Glucose Arterial Blood Ionized Calcium 08/26/20 08/26/20 08/26/20 05:09 07:21 11:21 WBC RBC Hgb Hct MCH MCHC RDW Seg Neuts % (Manual) Lymphocytes % (Manual) Seg Neutrophils # Man Lymphocytes # (Manual) ABG pH POC ABG pCO2 POC ABG pO2 ABG Hemoglobin ABG Oxyhemoglobin ABG Glucose Potassium Carbon Dioxide 31 H BUN 21 H Glucose 183 H POC Glucose 149 H 145 H Calcium 7.0 L Alkaline Phosphatase Albumin Arterial Blood Glucose Arterial Blood Ionized Calcium 08/26/20 08/26/20 08/27/20 16:49 21:19 04:41 WBC 11.5 H RBC 2.93 L Hgb 8.0 L Hct 25.2 L MCH 27 L MCHC RDW 21.0 H Seg Neuts % (Manual) Lymphocytes % (Manual) Seg Neutrophils # Man Lymphocytes # (Manual) ABG pH POC ABG pCO2 POC ABG pO2 ABG Hemoglobin ABG Oxyhemoglobin ABG Glucose Potassium Carbon Dioxide BUN Glucose POC Glucose 177 H 144 H Calcium Alkaline Phosphatase Albumin Arterial Blood Glucose Arterial Blood Ionized Calcium 08/27/20 08/27/20 08/27/20 04:41 07:25 07:30 WBC RBC Hgb Hct MCH MCHC RDW Seg Neuts % (Manual) Lymphocytes % (Manual) Seg Neutrophils # Man Lymphocytes # (Manual) ABG pH POC ABG pCO2 POC ABG pO2 ABG Hemoglobin ABG Oxyhemoglobin ABG Glucose Potassium Carbon Dioxide 35 H BUN 24 H Glucose 173 H POC Glucose 153 H 143 H Calcium 7.3 L Alkaline Phosphatase Albumin Arterial Blood Glucose Arterial Blood Ionized Calcium 08/27/20 08/27/20 08/27/20 11:27 15:49 21:17 WBC RBC Hgb Hct MCH MCHC RDW Seg Neuts % (Manual) Lymphocytes % (Manual) Seg Neutrophils # Man Lymphocytes # (Manual) ABG pH POC ABG pCO2 POC ABG pO2 ABG Hemoglobin ABG Oxyhemoglobin ABG Glucose Potassium Carbon Dioxide BUN Glucose POC Glucose 236 H 184 H 144 H Calcium Alkaline Phosphatase Albumin Arterial Blood Glucose Arterial Blood Ionized Calcium 08/28/20 08/28/20 08/28/20 05:55 05:55 07:25 WBC RBC 2.58 L Hgb 7.6 L Hct 22.1 L MCH MCHC 35 H RDW 20.3 H Seg Neuts % (Manual) Lymphocytes % (Manual) Seg Neutrophils # Man Lymphocytes # (Manual) ABG pH POC ABG pCO2 POC ABG pO2 ABG Hemoglobin ABG Oxyhemoglobin ABG Glucose Potassium 3.5 L Carbon Dioxide BUN 33 H Glucose 183 H POC Glucose 164 H Calcium 6.8 L Alkaline Phosphatase Albumin Arterial Blood Glucose Arterial Blood Ionized Calcium 08/28/20 08/28/20 11:00 12:06 WBC RBC Hgb Hct MCH MCHC RDW Seg Neuts % (Manual) Lymphocytes % (Manual) Seg Neutrophils # Man Lymphocytes # (Manual) ABG pH 7.316 L POC ABG pCO2 68.0 H POC ABG pO2 75.4 L ABG Hemoglobin 8.3 L ABG Oxyhemoglobin 92.5 L ABG Glucose 302 H Potassium Carbon Dioxide BUN Glucose POC Glucose 233 H Calcium Alkaline Phosphatase Albumin Arterial Blood Glucose 302 H Arterial Blood Ionized Calcium 3.8 L
[2020-08-28] MEDS: MONTELUKAST 10 MG TAB PO SCH (21:27)
[2020-08-28] MEDS: MIRTAZAPINE 15 MG TAB PO SCH (21:27)
[2020-08-28] MEDS: INSULIN LISPRO 100 UNIT/ML SUB-Q SCH (22:27)
[2020-08-29] MEDS: IPRATROPIUM/ALBUTEROL SULFATE 3 ML AMPUL.NEB IH SCH ×7 (00:18→20:58)
[2020-08-29] MEDS: ARFORMOTEROL 15 MCG/2 ML NEBU IH SCH ×3 (00:19→20:58)
[2020-08-29] MEDS: guaiFENesin 200 MG TAB PO SCH ×3 (01:43→09:26)
[2020-08-29] MEDS: methylPREDNISolone Sod Succinate 125 MG/2 ML INJ IV SCH ×4 (06:18→23:41)
[2020-08-29] MEDS: HEPARIN 5,000 UNIT/1 ML VIAL SUB-Q SCH ×3 (06:18→21:38)
[2020-08-29] MEDS: BUDESONIDE 0.5 MG/2 ML NEBU IH SCH ×2 (07:25→20:57)
[2020-08-29] MEDS: CALCIUM CARBONATE 500 MG TAB CHEW PO SCH (09:26)
[2020-08-29] MEDS: FERROUS SULFATE 325 MG TAB PO SCH (09:26)
[2020-08-29] MEDS: PANTOPRAZOLE 40 MG TAB PO SCH (09:26)
[2020-08-29] MEDS: ASPIRIN EC 81 MG TAB PO SCH (09:26)
[2020-08-29] MEDS: AZITHROMYCIN 250 MG TAB PO SCH (09:26)
[2020-08-29] MEDS: POLYETHYLENE GLYCOL 3350 17 GM POWDER PO SCH (09:26)
--- NOTE | 2020-08-29 09:34 | Progress Note ---
Assessment and Plan Assessment and plan: --Acute exacerbation of COPD ; Patient is a current smoker Continue aggressive neb treatments with budesonide , arformoterol and DuoNeb solutions Continue empiric antibiotic, oxygen titrate O2 sats to more than 90% BiPAP as needed, home O2 evaluation at discharge pulmonary following Solu-Medrol increased to 60 mg every 6 hours --Acute hypoxic respiratory failure ; requiring BiPAP Continue oxygen via nasal cannula Titrate O2 sats more than 90%, BiPAP as needed Home O2 evaluation prior to discharge --Leukocytosis-improved Suspect secondary to steroids As well as bronchitis/pneumonitis Continue bronchodilators, empiric antibiotics, tapering steroids --Hypertension; moderate control Continue current antihypertensives, as needed medications --Normocytic anemia Hemoglobin is down to 8.0 > 7.6 this morning Closely monitor H&H transfuse as needed --Hypokalemia; Replenished, follow electrolytes --Hyperglycemia -likely secondary to steroids HD A1c 5.8, Accu-Chek sliding scale coverage Long-acting insulin if needed --Ongoing tobacco abuse Patient counseled on tobacco cessation Nicotine patch as needed --history of HIV infection for many years Patient follow-up private ID/health department upon discharge --Mild to moderate malnutrition/hypoalbuminemia Nutrition supplements and supportive care --DVT prophylaxis; Heparin subcu/SCDs We will closely monitor the patient and adjust the management as needed Possible discharge in 1 to 2 days if stable and cleared by pulmonary Plan of care reviewed with the patient and his nurse I also discussed with racking machine operator Dr. Rahman and the case management History Interval history: I have seen and examined the patient at the bedside Patient's chart and medications reviewed Patient is in severe respiratory distress Is on BiPAP Vital signs noted Hospitalist Physical - Constitutional Vitals: Temp Pulse Resp BP Pulse Ox 98.0 F 85 22 112/75 100 08/29/20 05:00 08/29/20 07:50 08/29/20 07:50 08/29/20 05:00 08/29/20 07:25 General appearance: Present: mild distress, cachectic, disheveled, other (On BiPAP) - EENT Eyes: Present: PERRL, EOM intact - Neck Neck: Present: supple, normal ROM - Respiratory Respiratory effort: labored Respiratory: bilateral: diminished, rhonchi, negative: rales, wheezing - Cardiovascular Rhythm: regular Heart Sounds: Present: S1 & S2 - Extremities Extremities: no ischemia, No edema - Abdominal General gastrointestinal: soft, non-tender, non-distended, normal bowel sounds - Integumentary Integumentary: Present: clear, warm - Psychiatric Psychiatric: appropriate mood/affect, cooperative - Neurologic Neurologic: moves all extremities HEART Score - HEART Score Troponin: Troponin T < 0.010 ng/mL (0.00-0.029) 08/24/20 19:29 Results - Labs CBC & Chem 7: 08/28/20 05:55 08/28/20 05:55 Labs: Laboratory Last Values WBC 7.8 K/mm3 (4.5-11.0) 08/28/20 05:55 RBC 2.58 M/mm3 (3.65-5.03) L 08/28/20 05:55 Hgb 7.6 gm/dl (11.8-15.2) L 08/28/20 05:55 Hct 22.1 % (35.5-45.6) L 08/28/20 05:55 MCV 85 fl (84-94) 08/28/20 05:55 MCH 30 pg (28-32) 08/28/20 05:55 MCHC 35 % (32-34) H 08/28/20 05:55 RDW 20.3 % (13.2-15.2) H 08/28/20 05:55 Plt Count 165 K/mm3 (140-440) 08/28/20 05:55 Add Manual Diff Complete 08/25/20 07:21 Total Counted 100 08/25/20 07:21 Seg Neutrophils % [employer] Hand 08/25/20 07:21 Seg Neuts % (Manual) 96.0 % (40.0-70.0) H 08/25/20 07:21 Lymphocytes % (Manual) 3.0 % (13.4-35.0) L 08/25/20 07:21 Monocytes % (Manual) 2.0 % (0.0-7.3) 08/24/20 19:29 Myelocytes % 1.0 % 08/25/20 07:21 Nucleated RBC % Not Reportable 08/25/20 07: Seg Neutrophils # Man 4.8 K/mm3 (1.8-7.7) 08/25/20 07:21 Band Neutrophils # 0.0 K/mm3 08/25/20 07:21 Lymphocytes # (Manual) 0.2 K/mm3 (1.2-5.4) L 08/25/20 07:21 Abs React Lymphs (Man) 0.0 K/mm3 08/25/20 07:21 Monocytes # (Manual) 0.0 K/mm3 (0.0-0.8) 08/25/20 07:21 Eosinophils # (Manual) 0.0 K/mm3 (0.0-0.4) 08/25/20 07:21 Basophils # (Manual) 0.0 K/mm3 (0.0-0.1) 08/25/20 07:21 Metamyelocytes # 0.0 K/mm3 08/25/20 07:21 Myelocytes # 0.1 K/mm3 08/25/20 07:21 Promyelocytes # 0.0 K/mm3 08/25/20 07:21 Blast Cells # 0.0 K/mm3 08/25/20 07:21 WBC Morphology Not Reportable 08/25/20 07:21 Hypersegmented Neuts Not Reportable 08/25/20 07:21 Hyposegmented Neuts Not Reportable 08/25/20 07:21 Hypogranular Neuts Not Reportable 08/25/20 07:21 Smudge Cells Not Reportable 08/25/20 07:21 Toxic Granulation Not Reportable 08/25/20 07:21 Toxic Vacuolation Not Reportable 08/25/20 07:21 Dohle Bodies Not Reportable 08/25/20 07:21 Pelger-Huet Anomaly Not Reportable 08/25/20 07:21 Ruma Rods Not Reportable 08/25/20 07:21 Platelet Estimate Consistent w auto 08/25/20 07:21 Clumped Platelets Not Reportable 08/25/20 07:21 Plt Clumps, EDTA Not Reportable 08/25/20 07:21 Large Platelets Not Reportable 08/25/20 07:21 Giant Platelets Not Reportable 08/25/20 07:21 Platelet Satelliting Not Reportable 08/25/20 07:21 Plt Morphology Comment Not Reportable 08/25/20 07:21 RBC Morphology Not Reportable 08/25/20 07:21 Dimorphic RBCs Not Reportable 08/25/20 07:21 Polychromasia Not Reportable 08/25/20 07:21 Hypochromasia 1+ 08/25/20 07:21 Poikilocytosis 1+ 08/25/20 07:21 Anisocytosis 1+ 08/25/20 07:21 Microcytosis Not Reportable 08/25/20 07:21 Macrocytosis Not Reportable 08/25/20 07:21 Spherocytes Not Reportable 08/25/20 07:21 Pappenheimer Bodies Not Reportable 08/25/20 07:21 Sickle Cells Not Reportable 08/25/20 07:21 Target Cells Not Reportable 08/25/20 07:21 Tear Drop Cells Not Reportable 08/25/20 07:21 Ovalocytes 1+ 08/25/20 07:21 Helmet Cells Not Reportable 08/25/20 07:21 David-Lovelady Bodies Not Reportable 08/25/20 07:21 [place] Rings Not Reportable 08/25/20 07:21 Leroy Cells Not Reportable 08/25/20 07:21 Bite Cells Not Reportable 08/25/20 07:21 Crenated Cell Not Reportable 08/25/20 07:21 Elliptocytes 2+ 08/25/20 07:21 Acanthocytes (Spur) 1+ 08/25/20 07:21 Rouleaux Not Reportable 08/25/20 07:21 Hemoglobin C Crystals Not Reportable 08/25/20 07:21 Schistocytes Not Reportable 08/25/20 07:21 Malaria parasites Not Reportable 08/25/20 07:21 Ric Bodies Not Reportable 08/25/20 07:21 Hem Pathologist Commnt No 08/25/20 07:21 ABG pH 7.316 (7.320-7.450) L 08/28/20 11:00 POC ABG pCO2 68.0 mmHg (32.0-48.0) H 08/28/20 11:00 POC ABG pO2 75.4 mmHg (83-108) L 08/28/20 11:00 POC ABG HCO3 33.9 08/28/20 11:00 ABG O2 Saturation 93.6 (0-100) 08/28/20 11:00 POC ABG Base Excess 6.6 08/28/20 11:00 ABG Hemoglobin 8.3 (12.0-17.5) L 08/28/20 11:00 ABG Oxyhemoglobin 92.5 (94-98) L 08/28/20 11:00 ABG Methemoglobin 0.3 (0.0-1.5) 08/28/20 11:00 ABG Sodium 143.2 mmol/L (136.0-145.0) 08/28/20 11:00 ABG Potassium 3.8 mmol/L (3.40-4.50) 08/28/20 11:00 ABG Chloride 103.0 mmol/L (98-107) 08/28/20 11:00 ABG Glucose 302 mg/dL (65-95) H 08/28/20 11:00 Carboxyhemoglobin 0.9 (0.5-1.5) 08/28/20 11:00 FiO2 % 40.0 08/28/20 11:00 Sodium 144 mmol/L (137-145) 08/28/20 05:55 Potassium 3.5 mmol/L (3.6-5.0) L 08/28/20 05:55 Chloride 103.3 mmol/L (98-107) 08/28/20 05:55 Carbon Dioxide 29 mmol/L (22-30) 08/28/20 05:55 Anion Gap 15 mmol/L 08/28/20 05:55 BUN 33 mg/dL (9-20) H 08/28/20 05:55 Creatinine 1.2 mg/dL (0.8-1.3) 08/28/20 05:55 Estimated GFR > 60 ml/min 08/28/20 05:55 BUN/Creatinine Ratio 28 % 08/28/20 05:55 Glucose 183 mg/dL (75-100) H 08/28/20 05:55 POC Glucose 167 mg/dL (70-105) H 08/29/20 07:26 Hemoglobin A1c 5.8 % (4-6) 08/25/20 07:27 Calcium 6.8 mg/dL (8.4-10.2) L 08/28/20 05:55 Total Bilirubin 0.40 mg/dL (0.1-1.2) 08/24/20 19:29 AST 21 units/L (5-40) 08/24/20 19:29 ALT 36 units/L (7-56) 08/24/20 19:29 Alkaline Phosphatase 154 units/L (35-129) H 08/24/20 19:29 Troponin T < 0.010 ng/mL (0.00-0.029) 08/24/20 19:29 Total Protein 6.5 g/dL (6.3-8.2) 08/24/20 19:29 Albumin 3.4 g/dL (3.9-5) L 08/24/20 19:29 Albumin/Globulin Ratio 1.1 % 08/24/20 19:29 Arterial Blood Glucose 302 mg/dL (65-95) H 08/28/20 11:00 Arterial Blood Ionized Calcium 3.8 mg/dL (4.6-5.3) L 08/28/20 11:00 [place]/IV: Voiding Method Urinal Active Medications - Current Medications Current Medications: Generic Name Dose Route Start Last Admin Trade Name Freq PRN Reason Stop Dose Admin Acetaminophen 650 mg 08/24/20 22:12 Acetaminophen 325 Mg Tab PO Q4H PRN Pain MILD(1-3)/Fever >100.5/KOENIG Albuterol/Ipratropium 1 ampul 08/26/20 09:45 08/29/20 09:17 Ipratropium/Albuterol Sulfate 3 Ml Ampul.Neb IH Not Given Q4H NADIA Arformoterol Tartrate 15 mcg 08/25/20 20:00 08/29/20 07:25 Arformoterol 15 Mcg/2 Ml Nebu IH 15 mcg Q12HRT NADIA Administration Aspirin 81 mg 08/25/20 10:00 08/29/20 09:26 Aspirin Ec 81 Mg Tab PO 81 mg QDAY NADIA Administration Atorvastatin Calcium 40 mg 08/25/20 22:00 08/28/20 21:27 Atorvastatin 40 Mg Tab PO 40 mg QHS NADIA Administration Azithromycin 250 mg 08/25/20 10:00 08/29/20 09:26 Azithromycin 250 Mg Tab PO 08/29/20 10:01 250 mg QDAY NADIA Administration Protocol Budesonide 0.5 mg 08/25/20 08:00 08/29/20 07:25 Budesonide 0.5 Mg/2 Ml Nebu IH 0.5 mg Q12HRT NADIA Administration Calcium Carbonate/Glycine 500 mg 08/25/20 10:00 08/29/20 09:26 Calcium Carbonate 500 Mg Tab Chew PO 500 mg QDAY NADIA Administration Diltiazem HCl 240 mg 08/26/20 10:00 08/28/20 09:21 Diltiazem Cd 240 Mg Cap PO 240 mg QDAY NADIA Administration Docusate Sodium 100 mg 08/24/20 22:23 Docusate Sodium 100 Mg Cap PO BID PRN Constip unreliev by MOM/or NPO Ferrous Sulfate 325 mg 08/25/20 10:00 08/29/20 09:26 Ferrous Sulfate 325 Mg Tab PO 325 mg QDAY NADIA Administration Guaifenesin 400 mg 08/25/20 02:00 08/29/20 09:26 Guaifenesin 200 Mg Tab PO 400 mg Q4HR NADIA Administration Heparin Sodium (Porcine) 5,000 unit 08/25/20 06:00 08/29/20 06:18 Heparin 5,000 Unit/1 Ml Vial SUB-Q 5,000 unit Q8HR NADIA Administration Hydralazine HCl 10 mg 08/24/20 22:14 08/27/20 16:27 Hydralazine 20 Mg/1 Ml Inj IV 10 mg Q6H PRN Administration Blood Pressure Insulin Human Lispro 0 unit 08/25/20 22:00 08/28/20 22:27 Insulin Lispro 100 Unit/Ml SUB-Q 3 unit QHS NADIA Administration Protocol Methylprednisolone Sodium Succinate 60 mg 08/28/20 00:00 08/29/20 06:18 Methylprednisolone Sod Succinate 125 Mg/2 Ml Inj IV 60 mg Q6HR NADIA Administration Mirtazapine 7.5 mg 08/25/20 22:00 08/28/20 21:27 Mirtazapine 15 Mg Tab PO 7.5 mg QHS NADIA Administration Montelukast Sodium 10 mg 08/25/20 22:00 08/28/20 21:27 Montelukast 10 Mg Tab PO 10 mg QHS NADIA Administration Ondansetron HCl 4 mg 08/24/20 22:12 Ondansetron 4 Mg/2 Ml Inj IV Q8H PRN Nausea And Vomiting Oxycodone/Acetaminophen 1 tab 08/24/20 22:23 08/27/20 14:27 Oxycodone /Acetaminophen 5-325mg Tab PO 1 tab BID PRN Administration Pain , Severe (7-10) Pantoprazole Sodium 40 mg 08/25/20 10:00 08/29/20 09:26 Pantoprazole 40 Mg Tab PO 40 mg QDAY NADIA Administration Polyethylene Glycol 17 gm 07/05/21 10:00 08/29/20 09:26 Polyethylene Glycol 3350 17 Gm Powder PO 17 gm QDAY NADIA Administration Sodium Chloride 10 ml 08/25/20 10:00 08/29/20 09:26 Sodium Chloride 0.9% 10 Ml Flush Syringe IV 10 ml BID NADIA Administration Sodium Chloride 10 ml 08/24/20 22:12 Sodium Chloride 0.9% 10 Ml Flush Syringe IV PRN PRN LINE FLUSH Tramadol HCl 50 mg 08/24/20 22:23 08/28/20 09:18 Tramadol 50 Mg Tab PO 50 mg Q6HR PRN Administration Pain, Moderate (4-6) Nutrition/Malnutrition Assess - Dietary Evaluation Nutrition/Malnutrition Findings: Nutrition Notes Start: 08/25/20 08:25 Freq: Status: Active Protocol: Document 08/25/20 08:25 SERGIO (Rec: 08/25/20 08:25 SERGIO [id number]) Nutrition Notes Need for Assessment generated from: signal circuit designer Initial or Follow up Brief Note Subjective/Other Information RN screen for skin risk. No Chevy score. No wounds noted. Likely an error. Nutrition Intervention Revisit per MD consult or patient Sign Off request: Additional Comments Please reconsult if needed
[2020-08-29] MEDS: dilTIAZem CD 240 MG CAP PO SCH (10:02)
--- NOTE | 2020-08-29 10:05 | Progress Note ---
Assessment and Plan 64-year-old male with past medical history of COPD, hypertension, Diabetes,asthma PE was brought to the emergency room because of shortness of breath since this morning. Patient had an IV started by EMS and was given IV mag, Solu-Medrol and an albuterol treatment. EMS states that the patient states his symptoms are worsening. Patient states 5 breathing treatment just prior to arrival and did not work. Shortness of breath better with rest and worse with exertion. Patient states he has a long history of COPD and asthma. Patient states he had multiple visits to the ER for this. Patient denies chest pain. Patient denies fever and chills. Patient complains of dry cough Patient has history of smoking 1 pack x 40 years. Says stopped smoking 2 months ago. History of using Cocaine. Denies alcohol abuse. Says worked in [employer] before he disabled. Patient and has two children.No Known drug allergies Patient sleepy but arousable. Patient still Having some increase in work of breathing at rest. Shortness of breath better than yesterday. Still complaining some cough. O2 saturation 100% on 4 litres O2. Patient afebrile and has no leukocytosis. Chest xray done 08/24/20 reported There is hyperinflation the lungs. No focal infiltrate is seen. Calcified granulomata are noted in the upper lung zones bilaterally. No pneumothorax. ABGs on 5 litres O2. ABG pH 7.316 (7.320-7.450) L 08/28/20 11:00 POC ABG pCO2 68.0 mmHg (32.0-48.0) H 08/28/20 11:00 POC ABG pO2 75.4 mmHg (83-108) L 08/28/20 11:00 POC ABG HCO3 33.9 08/28/20 11:00 ABG O2 Saturation 93.6 (0-100) 08/28/20 11:00 Patient is on I/V solumedrol, Albuterol/atrovent aerosol treatments, Zithromax, S/C Heparin and Protonix. - Patient Problems (1) Acute respiratory failure with hypoxia Current Visit: No Status: Acute Plan to address problem: O2 4 litres via nasal canula. Continue I/V solumedrol Albuterol/atrovent aerosol treatments S/C Heparine. Famotidine. (2) COPD exacerbation Current Visit: No Status: Acute Plan to address problem: O2 4 litres via nasal canula. Continue I/V solumedrol Albuterol/atrovent aerosol treatments S/C Heparine. Famotidine. Zithromax. (3) ANGELIC (acute kidney injury) Current Visit: No Status: Acute Plan to address problem: Management as per nephrology. (4) GERD (gastroesophageal reflux disease) Current Visit: No Status: Acute Plan to address problem: Patient is on Protonix. (5) HIV (human immunodeficiency virus infection) Current Visit: No Status: Acute Qualifiers: Plan to address problem: Management as per infectious disease consultants. (6) Hypertension Current Visit: No Status: Acute Plan to address problem: Management as per primary care. (7) Cocaine use Current Visit: No Status: Chronic Plan to address problem: Counseled do not use any illegal drugs. (8) Tobacco use Current Visit: No Status: Chronic Plan to address problem: Counseled continue stop smoking. Subjective Date of service: 08/29/20 Interval history: 64-year-old male with past medical history of COPD, hypertension, Diabetes,asthma PE was brought to the emergency room because of shortness of b reath since this morning. Patient had an IV started by EMS and was given IV mag, Solu-Medrol and an albuterol treatment. EMS states that the patient states his symptoms are worsening. Patient states 5 breathing treatment just prior to arrival and did not work. Shortness of breath better with rest and worse with exertion. Patient states he has a long history of COPD and asthma. Patient states he had multiple visits to the ER for this. Patient denies chest pain. Patient denies fever and chills. Patient complains of dry cough Patient has history of smoking 1 pack x 40 years. Says stopped smoking 2 months ago. History of using Cocaine. Denies alcohol abuse. Says worked in [employer] before he disabled. Patient and has two children.No Known drug allergies Patient sleepy but arousable. Patient still Having some increase in work of breathing at rest. Shortness of breath better than yesterday. Still complaining some cough. O2 saturation 100% on 4 litres O2. Patient afebrile and has no leukocytosis. Chest xray done 08/24/20 reported There is hyperinflation the lungs. No focal infiltrate is seen. Calcified granulomata are noted in the upper lung zones bilaterally. No pneumothorax. ABG on 5 litres O2. ABG pH 7.316 (7.320-7.450) L 08/28/20 11:00 POC ABG pCO2 68.0 mmHg (32.0-48.0) H 08/28/20 11:00 POC ABG pO2 75.4 mmHg (83-108) L 08/28/20 11:00 POC ABG HCO3 33.9 08/28/20 11:00 ABG O2 Saturation 93.6 (0-100) 08/28/20 11:00 Patient is on I/V solumedrol, Albuterol/atrovent aerosol treatments, Zithromax, S/C Heparin and Protonix. Objective Vital Signs - 12hr 08/29/20 08/29/20 08/29/20 00:21 00:22 05:00 Temperature 98.0 F Pulse Rate 98 H 88 Pulse Rate [ 95 H Bilateral] Respiratory 26 H 24 Rate Respiratory 26 H Rate [Bilateral ] Blood Pressure 112/75 O2 Sat by Pulse 98 99 Oximetry 08/29/20 08/29/20 08/29/20 07:25 07:50 10:02 Temperature Pulse Rate 88 Pulse Rate [ 85 Bilateral] Respiratory Rate Respiratory 22 Rate [Bilateral ] Blood Pressure O2 Sat by Pulse 100 Oximetry Constitutional: alert, appears uncomfortable, other (Slight increased work of breathing at rest,) Eyes: non-icteric ENT: oropharynx moist Neck: supple, no JVD Ascultation: Bilateral: diminished breath sounds, wheezes, other (Prolonged expiratory phase.) Cardiovascular: regular rate and rhythm Gastrointestinal: normoactive bowel sounds, soft, non-tender Integumentary: normal Extremities: no cyanosis, no edema Neurologic: normal mental status, non-focal exam, pupils equal and round Psychiatric: anxious, depressed CBC and BMP: 08/28/20 05:55 08/28/20 05:55 ABG, PT/INR, D-dimer: ABG ABG pH 7.316 (7.320-7.450) L 08/28/20 11:00 POC ABG pCO2 68.0 mmHg (32.0-48.0) H 08/28/20 11:00 POC ABG pO2 75.4 mmHg (83-108) L 08/28/20 11:00 POC ABG HCO3 33.9 08/28/20 11:00 ABG O2 Saturation 93.6 (0-100) 08/28/20 11:00 Abnormal lab findings: Abnormal Labs 08/24/20 08/24/20 08/25/20 19:29 19:29 07:00 WBC RBC 3.36 L Hgb 9.7 L Hct 28.5 L MCH MCHC RDW 20.6 H Seg Neuts % (Manual) 97.0 H Lymphocytes % (Manual) 1.0 L Seg Neutrophils # Man 10.2 H Lymphocytes # (Manual) 0.1 L ABG pH POC ABG pCO2 POC ABG pO2 ABG Hemoglobin ABG Oxyhemoglobin ABG Glucose Potassium 3.3 L Carbon Dioxide BUN Glucose 121 H POC Glucose 211 H Calcium 7.6 L Alkaline Phosphatase 154 H Albumin 3.4 L Arterial Blood Glucose Arterial Blood Ionized Calcium 08/25/20 08/25/20 08/25/20 07:21 07:21 12:06 WBC RBC 3.13 L Hgb 8.9 L Hct 26.5 L MCH MCHC RDW 20.6 H Seg Neuts % (Manual) 96.0 H Lymphocytes % (Manual) 3.0 L Seg Neutrophils # Man Lymphocytes # (Manual) 0.2 L ABG pH POC ABG pCO2 POC ABG pO2 ABG Hemoglobin ABG Oxyhemoglobin ABG Glucose Potassium Carbon Dioxide 31 H BUN Glucose 208 H POC Glucose 162 H Calcium 7.4 L Alkaline Phosphatase Albumin Arterial Blood Glucose Arterial Blood Ionized Calcium 08/25/20 08/25/20 08/26/20 17:01 21:52 05:09 WBC 14.9 H RBC 3.11 L Hgb 8.9 L Hct 26.7 L MCH MCHC RDW 20.6 H Seg Neuts % (Manual) Lymphocytes % (Manual) Seg Neutrophils # Man Lymphocytes # (Manual) ABG pH POC ABG pCO2 POC ABG pO2 ABG Hemoglobin ABG Oxyhemoglobin ABG Glucose Potassium Carbon Dioxide BUN Glucose POC Glucose 158 H 175 H Calcium Alkaline Phosphatase Albumin Arterial Blood Glucose Arterial Blood Ionized Calcium 08/26/20 08/26/20 08/26/20 05:09 07:21 11:21 WBC RBC Hgb Hct MCH MCHC RDW Seg Neuts % (Manual) Lymphocytes % (Manual) Seg Neutrophils # Man Lymphocytes # (Manual) ABG pH POC ABG pCO2 POC ABG pO2 ABG Hemoglobin ABG Oxyhemoglobin ABG Glucose Potassium Carbon Dioxide 31 H BUN 21 H Glucose 183 H POC Glucose 149 H 145 H Calcium 7.0 L Alkaline Phosphatase Albumin Arterial Blood Glucose Arterial Blood Ionized Calcium 08/26/20 08/26/20 08/27/20 16:49 21:19 04:41 WBC 11.5 H RBC 2.93 L Hgb 8.0 L Hct 25.2 L MCH 27 L MCHC RDW 21.0 H Seg Neuts % (Manual) Lymphocytes % (Manual) Seg Neutrophils # Man Lymphocytes # (Manual) ABG pH POC ABG pCO2 POC ABG pO2 ABG Hemoglobin ABG Oxyhemoglobin ABG Glucose Potassium Carbon Dioxide BUN Glucose POC Glucose 177 H 144 H Calcium Alkaline Phosphatase Albumin Arterial Blood Glucose Arterial Blood Ionized Calcium 08/27/20 08/27/20 08/27/20 04:41 07:25 07:30 WBC RBC Hgb Hct MCH MCHC RDW Seg Neuts % (Manual) Lymphocytes % (Manual) Seg Neutrophils # Man Lymphocytes # (Manual) ABG pH POC ABG pCO2 POC ABG pO2 ABG Hemoglobin ABG Oxyhemoglobin ABG Glucose Potassium Carbon Dioxide 35 H BUN 24 H Glucose 173 H POC Glucose 153 H 143 H Calcium 7.3 L Alkaline Phosphatase Albumin Arterial Blood Glucose Arterial Blood Ionized Calcium 08/27/20 08/27/20 08/27/20 11:27 15:49 21:17 WBC RBC Hgb Hct MCH MCHC RDW Seg Neuts % (Manual) Lymphocytes % (Manual) Seg Neutrophils # Man Lymphocytes # (Manual) ABG pH POC ABG pCO2 POC ABG pO2 ABG Hemoglobin ABG Oxyhemoglobin ABG Glucose Potassium Carbon Dioxide BUN Glucose POC Glucose 236 H 184 H 144 H Calcium Alkaline Phosphatase Albumin Arterial Blood Glucose Arterial Blood Ionized Calcium 08/28/20 08/28/20 08/28/20 05:55 05:55 07:25 WBC RBC 2.58 L Hgb 7.6 L Hct 22.1 L MCH MCHC 35 H RDW 20.3 H Seg Neuts % (Manual) Lymphocytes % (Manual) Seg Neutrophils # Man Lymphocytes # (Manual) ABG pH POC ABG pCO2 POC ABG pO2 ABG Hemoglobin ABG Oxyhemoglobin ABG Glucose Potassium 3.5 L Carbon Dioxide BUN 33 H Glucose 183 H POC Glucose 164 H Calcium 6.8 L Alkaline Phosphatase Albumin Arterial Blood Glucose Arterial Blood Ionized Calcium 08/28/20 08/28/20 08/28/20 11:00 12:06 15:28 WBC RBC Hgb Hct MCH MCHC RDW Seg Neuts % (Manual) Lymphocytes % (Manual) Seg Neutrophils # Man Lymphocytes # (Manual) ABG pH 7.316 L POC ABG pCO2 68.0 H POC ABG pO2 75.4 L ABG Hemoglobin 8.3 L ABG Oxyhemoglobin 92.5 L ABG Glucose 302 H Potassium Carbon Dioxide BUN Glucose POC Glucose 233 H 146 H Calcium Alkaline Phosphatase Albumin Arterial Blood Glucose 302 H Arterial Blood Ionized Calcium 3.8 L 08/28/20 08/29/20 21:34 07:26 WBC RBC Hgb Hct MCH MCHC RDW Seg Neuts % (Manual) Lymphocytes % (Manual) Seg Neutrophils # Man Lymphocytes # (Manual) ABG pH POC ABG pCO2 POC ABG pO2 ABG Hemoglobin ABG Oxyhemoglobin ABG Glucose Potassium Carbon Dioxide BUN Glucose POC Glucose 201 H 167 H Calcium Alkaline Phosphatase Albumin Arterial Blood Glucose Arterial Blood Ionized Calcium
[2020-08-29] MEDS: oxyCODONE /ACETAMINOPHEN 5-325MG TAB PO PRN (16:26)
[2020-08-29] MEDS: guaiFENesin 200 MG TAB PO PRN (21:37)
[2020-08-29] MEDS: MONTELUKAST 10 MG TAB PO SCH (21:37)
[2020-08-29] MEDS: MIRTAZAPINE 15 MG TAB PO SCH (21:37)
[2020-08-29] MEDS: INSULIN LISPRO 100 UNIT/ML SUB-Q SCH (22:34)
[2020-08-30] MEDS: IPRATROPIUM/ALBUTEROL SULFATE 3 ML AMPUL.NEB IH SCH ×6 (00:28→20:25)
[2020-08-30] MEDS: HEPARIN 5,000 UNIT/1 ML VIAL SUB-Q SCH ×3 (05:33→21:39)
[2020-08-30] MEDS: guaiFENesin 200 MG TAB PO PRN (05:33)
[2020-08-30] MEDS: methylPREDNISolone Sod Succinate 125 MG/2 ML INJ IV SCH ×3 (05:33→17:07)
[2020-08-30] MEDS: BUDESONIDE 0.5 MG/2 ML NEBU IH SCH ×2 (08:11→20:25)
[2020-08-30] MEDS: ARFORMOTEROL 15 MCG/2 ML NEBU IH SCH ×2 (08:11→20:25)
--- NOTE | 2020-08-30 08:59 | Progress Note ---
Assessment and Plan Assessment and plan: Patient continues to require intermittent BiPAP especially in the nights Today on 4 L of nasal cannula oxygen. Patient has home oxygen uses 3 L --Acute exacerbation of COPD ; Patient is a current smoker Continue aggressive neb treatments with budesonide , arformoterol and DuoNeb solutions Continue empiric antibiotic, oxygen titrate O2 sats to more than 90% BiPAP as needed, home O2 evaluation at discharge pulmonary following Solu-Medrol increased to 60 mg every 6 hours --Acute hypoxic respiratory failure ; requiring BiPAP Continue oxygen via nasal cannula Titrate O2 sats more than 90%, BiPAP as needed Home O2 evaluation prior to discharge --Leukocytosis-improved Suspect secondary to steroids As well as bronchitis/pneumonitis Continue bronchodilators, empiric antibiotics, tapering steroids --Hypertension; moderate control Continue current antihypertensives, as needed medications --Normocytic anemia Hemoglobin is down to 8.0 > 7.6 this morning Closely monitor H&H transfuse as needed --Hypokalemia; Replenished, follow electrolytes --Hyperglycemia -likely secondary to steroids HD A1c 5.8, Accu-Chek sliding scale coverage Long-acting insulin if needed --Ongoing tobacco abuse Patient counseled on tobacco cessation Nicotine patch as needed --history of HIV infection for many years Patient follow-up private ID/health department upon discharge --Mild to moderate malnutrition/hypoalbuminemia Nutrition supplements and supportive care --DVT prophylaxis; Heparin subcu/SCDs We will closely monitor the patient and adjust the management as needed Possible discharge in 1 to 2 days if stable and cleared by pulmonary Plan of care reviewed with the patient and his nurse I also discussed with pickling drum operator Dr. Rahman and the case management Daily Hospital course; 08/29; patient requiring BiPAP, severely short of breath, pulmonary following; Wean as tolerated ; requiring intermittent BiPAP especially at night This morning patient is on 4 L of nasal cannula oxygen Patient already has home oxygen at 3 L Pulmonary following History Interval history: I have seen and examined the patient at the bedside Patient's chart and medications reviewed Patient feels better today intermittent BiPAP and nasal cannula oxygen Vital signs noted Hospitalist Physical - Constitutional Vitals: Temp Pulse Resp BP Pulse Ox 98.0 F 90 19 120/51 98 08/30/20 05:25 08/30/20 08:00 08/30/20 08:00 08/30/20 05:25 08/30/20 08:12 General appearance: Present: mild distress, cachectic, disheveled, other (Intermittent BiPAP and nasal cannula oxygen) - EENT Eyes: Present: PERRL, EOM intact - Neck Neck: Present: supple, normal ROM - Respiratory Respiratory effort: normal Respiratory: bilateral: diminished, rhonchi, negative: rales, wheezing - Cardiovascular Rhythm: regular Heart Sounds: Present: S1 & S2 - Extremities Extremities: no ischemia, No edema - Abdominal General gastrointestinal: soft, non-tender, non-distended, normal bowel sounds - Integumentary Integumentary: Present: clear, warm - Psychiatric Psychiatric: appropriate mood/affect, cooperative - Neurologic Neurologic: CNII-XII intact, moves all extremities HEART Score - HEART Score Troponin: Troponin T < 0.010 ng/mL (0.00-0.029) 08/24/20 19:29 Results - Labs CBC & Chem 7: 08/28/20 05:55 08/28/20 05:55 Labs: Laboratory Last Values WBC 7.8 K/mm3 (4.5-11.0) 08/28/20 05:55 RBC 2.58 M/mm3 (3.65-5.03) L 08/28/20 05:55 Hgb 7.6 gm/dl (11.8-15.2) L 08/28/20 05:55 Hct 22.1 % (35.5-45.6) L 08/28/20 05:55 MCV 85 fl (84-94) 08/28/20 05:55 MCH 30 pg (28-32) 08/28/20 05:55 MCHC 35 % (32-34) H 08/28/20 05:55 RDW 20.3 % (13.2-15.2) H 08/28/20 05:55 Plt Count 165 K/mm3 (140-440) 08/28/20 05:55 Add Manual Diff Complete 08/25/20 07:21 Total Counted 100 08/25/20 07:21 Seg Neutrophils % Chronometer Assembler 08/25/20 07:21 Seg Neuts % (Manual) 96.0 % (40.0-70.0) H 08/25/20 07:21 Lymphocytes % (Manual) 3.0 % (13.4-35.0) L 08/25/20 07:21 Monocytes % (Manual) 2.0 % (0.0-7.3) 08/24/20 19:29 Myelocytes % 1.0 % 08/25/20 07:21 Nucleated RBC % Not Reportable 08/25/20 07:21 Seg Neutrophils # Man 4.8 K/mm3 (1.8-7.7) 08/25/20 07:21 Band Neutrophils # 0.0 K/mm3 08/25/20 07:21 Lymphocytes # (Manual) 0.2 K/mm3 (1.2-5.4) L 08/25/20 07:21 Abs React Lymphs (Man) 0.0 K/mm3 08/25/20 07:21 Monocytes # (Manual) 0.0 K/mm3 (0.0-0.8) 08/25/20 07:21 Eosinophils # (Manual) 0.0 K/mm3 (0.0-0.4) 08/25/20 07:21 Basophils # (Manual) 0.0 K/mm3 (0.0-0.1) 08/25/20 07:21 Metamyelocytes # 0.0 K/mm3 08/25/20 07:21 Myelocytes # 0.1 K/mm3 08/25/20 07:21 Promyelocytes # 0.0 K/mm3 08/25/20 07:21 Blast Cells # 0.0 K/mm3 08/25/20 07:21 WBC Morphology Not Reportable 08/25/20 07:21 Hypersegmented Neuts Not Reportable 08/25/20 07:21 Hyposegmented Neuts Not Reportable 08/25/20 07:21 Hypogranular Neuts Not Reportable 08/25/20 07:21 Smudge Cells Not Reportable 08/25/20 07:21 Toxic Granulation Not Reportable 08/25/20 07:21 Toxic Vacuolation Not Reportable 08/25/20 07:21 Dohle Bodies Not Reportable 08/25/20 07:21 Pelger-Huet Anomaly Not Reportable 08/25/20 07:21 Ruma Rods Not Reportable 08/25/20 07:21 Platelet Estimate Consistent w auto 08/25/20 07:21 Clumped Platelets Not Reportable 08/25/20 07:21 Plt Clumps, EDTA Not Reportable 08/25/20 07:21 Large Platelets Not Reportable 08/25/20 07:21 Giant Platelets Not Reportable 08/25/20 07:21 Platelet Satelliting Not Reportable 08/25/20 07:21 Plt Morphology Comment Not Reportable 08/25/20 07:21 RBC Morphology Not Reportable 08/25/20 07:21 Dimorphic RBCs Not Reportable 08/25/20 07:21 Polychromasia Not Reportable 08/25/20 07:21 Hypochromasia 1+ 08/25/20 07:21 Poikilocytosis 1+ 08/25/20 07:21 Anisocytosis 1+ 08/25/20 07:21 Microcytosis Not Reportable 08/25/20 07:21 Macrocytosis Not Reportable 08/25/20 07:21 Spherocytes Not Reportable 08/25/20 07:21 Pappenheimer Bodies Not Reportable 08/25/20 07:21 Sickle Cells Not Reportable 08/25/20 07:21 Target Cells Not Reportable 08/25/20 07:21 Tear Drop Cells Not Reportable 08/25/20 07:21 Ovalocytes 1+ 08/25/20 07:21 Helmet Cells Not Reportable 08/25/20 07:21 David-Fernando Salinas Bodies Not Reportable 08/25/20 07:21 [place] Rings Not Reportable 08/25/20 07:21 Don Cells Not Reportable 08/25/20 07:21 Bite Cells Not Reportable 08/25/20 07:21 Crenated Cell Not Reportable 08/25/20 07:21 Elliptocytes 2+ 08/25/20 07:21 Acanthocytes (Spur) 1+ 08/25/20 07:21 Rouleaux Not Reportable 08/25/20 07:21 Hemoglobin C Crystals Not Reportable 08/25/20 07:21 Schistocytes Not Reportable 08/25/20 07:21 Malaria parasites Not Reportable 08/25/20 07:21 Ric Bodies Not Reportable 08/25/20 07:21 Hem Pathologist Commnt No 08/25/20 07:21 ABG pH 7.316 (7.320-7.450) L 08/28/20 11:00 POC ABG pCO2 68.0 mmHg (32.0-48.0) H 08/28/20 11:00 POC ABG pO2 75.4 mmHg (83-108) L 08/28/20 11:00 POC ABG HCO3 33.9 08/28/20 11:00 ABG O2 Saturation 93.6 (0-100) 08/28/20 11:00 POC ABG Base Excess 6.6 08/28/20 11:00 ABG Hemoglobin 8.3 (12.0-17.5) L 08/28/20 11:00 ABG Oxyhemoglobin 92.5 (94-98) L 08/28/20 11:00 ABG Methemoglobin 0.3 (0.0-1.5) 08/28/20 11:00 ABG Sodium 143.2 mmol/L (136.0-145.0) 08/28/20 11:00 ABG Potassium 3.8 mmol/L (3.40-4.50) 08/28/20 11:00 ABG Chloride 103.0 mmol/L (98-107) 08/28/20 11:00 ABG Glucose 302 mg/dL (65-95) H 08/28/20 11:00 Carboxyhemoglobin 0.9 (0.5-1.5) 08/28/20 11:00 FiO2 % 40.0 08/28/20 11:00 Sodium 144 mmol/L (137-145) 08/28/20 05:55 Potassium 3.5 mmol/L (3.6-5.0) L 08/28/20 05:55 Chloride 103.3 mmol/L (98-107) 08/28/20 05:55 Carbon Dioxide 29 mmol/L (22-30) 08/28/20 05:55 Anion Gap 15 mmol/L 08/28/20 05:55 BUN 33 mg/dL (9-20) H 08/28/20 05:55 Creatinine 1.2 mg/dL (0.8-1.3) 08/28/20 05:55 Estimated GFR > 60 ml/min 08/28/20 05:55 BUN/Creatinine Ratio 28 % 08/28/20 05:55 Glucose 183 mg/dL (75-100) H 08/28/20 05:55 POC Glucose 286 mg/dL (70-105) H 08/30/20 07:53 Hemoglobin A1c 5.8 % (4-6) 08/25/20 07:27 Calcium 6.8 mg/dL (8.4-10.2) L 08/28/20 05:55 Total Bilirubin 0.40 mg/dL (0.1-1.2) 08/24/20 19:29 AST 21 units/L (5-40) 08/24/20 19:29 ALT 36 units/L (7-56) 08/24/20 19:29 Alkaline Phosphatase 154 units/L (35-129) H 08/24/20 19:29 Troponin T < 0.010 ng/mL (0.00-0.029) 08/24/20 19:29 Total Protein 6.5 g/dL (6.3-8.2) 08/24/20 19:29 Albumin 3.4 g/dL (3.9-5) L 08/24/20 19:29 Albumin/Globulin Ratio 1.1 % 08/24/20 19:29 Arterial Blood Glucose 302 mg/dL (65-95) H 08/28/20 11:00 Arterial Blood Ionized Calcium 3.8 mg/dL (4.6-5.3) L 08/28/20 11:00 [place]/IV: Voiding Method Bedside Commode Active Medications - Current Medications Current Medications: Generic Name Dose Route Start Last Admin Trade Name Freq PRN Reason Stop Dose Admin Acetaminophen 650 mg 08/24/20 22:12 Acetaminophen 325 Mg Tab PO Q4H PRN Pain MILD(1-3)/Fever >100.5/KOENIG Albuterol/Ipratropium 1 ampul 08/29/20 20:00 08/30/20 08:11 Ipratropium/Albuterol Sulfate 3 Ml Ampul.Neb IH 1 ampul Q4HRT NADIA Administration Arformoterol Tartrate 15 mcg 08/25/20 20:00 08/30/20 08:11 Arformoterol 15 Mcg/2 Ml Nebu IH 15 mcg Q12HRT NADIA Administration Aspirin 81 mg 08/25/20 10:00 08/29/20 09:26 Aspirin Ec 81 Mg Tab PO 81 mg QDAY NADIA Administration Atorvastatin Calcium 40 mg 08/25/20 22:00 08/29/20 21:37 Atorvastatin 40 Mg Tab PO 40 mg QHS NADIA Administration Budesonide 0.5 mg 08/25/20 08:00 08/30/20 08:11 Budesonide 0.5 Mg/2 Ml Nebu IH 0.5 mg Q12HRT NADIA Administration Calcium Carbonate/Glycine 500 mg 08/25/20 10:00 08/29/20 09:26 Calcium Carbonate 500 Mg Tab Chew PO 500 mg QDAY NADIA Administration Diltiazem HCl 240 mg 08/26/20 10:00 08/29/20 10:02 Diltiazem Cd 240 Mg Cap PO 240 mg QDAY NADIA Administration Docusate Sodium 100 mg 08/24/20 22:23 Docusate Sodium 100 Mg Cap PO BID PRN Constip unreliev by MOM/or NPO Ferrous Sulfate 325 mg 08/25/20 10:00 08/29/20 09:26 Ferrous Sulfate 325 Mg Tab PO 325 mg QDAY NADIA Administration Guaifenesin 400 mg 08/29/20 13:00 08/30/20 05:33 Guaifenesin 200 Mg Tab PO 400 mg Q4HR PRN Administration Cough Heparin Sodium (Porcine) 5,000 unit 08/25/20 06:00 08/30/20 05:33 Heparin 5,000 Unit/1 Ml Vial SUB-Q 5,000 unit Q8HR NADIA Administration Hydralazine HCl 10 mg 08/24/20 22:14 08/27/20 16:27 Hydralazine 20 Mg/1 Ml Inj IV 10 mg Q6H PRN Administration Blood Pressure Insulin Human Lispro 0 unit 08/25/20 22:00 08/29/20 22:34 Insulin Lispro 100 Unit/Ml SUB-Q 3 unit QHS NADIA Administration Protocol Methylprednisolone Sodium Succinate 60 mg 08/28/20 00:00 08/30/20 05:33 Methylprednisolone Sod Succinate 125 Mg/2 Ml Inj IV 60 mg Q6HR NADIA Administration Mirtazapine 7.5 mg 08/25/20 22:00 08/29/20 21:37 Mirtazapine 15 Mg Tab PO 7.5 mg QHS NADIA Administration Montelukast Sodium 10 mg 08/25/20 22:00 08/29/20 21:37 Montelukast 10 Mg Tab PO 10 mg QHS NADIA Administration Ondansetron HCl 4 mg 08/24/20 22:12 Ondansetron 4 Mg/2 Ml Inj IV Q8H PRN Nausea And Vomiting Oxycodone/Acetaminophen 1 tab 08/24/20 22:23 08/29/20 16:26 Oxycodone /Acetaminophen 5-325mg Tab PO 1 tab BID PRN Administration Pain , Severe (7-10) Pantoprazole Sodium 40 mg 08/25/20 10:00 08/29/20 09:26 Pantoprazole 40 Mg Tab PO 40 mg QDAY NADIA Administration Polyethylene Glycol 17 gm 08/28/20 10:00 08/29/20 09:26 Polyethylene Glycol 3350 17 Gm Powder PO 17 gm QDAY NADIA Administration Sodium Chloride 10 ml 08/25/20 10:00 08/29/20 21:38 Sodium Chloride 0.9% 10 Ml Flush Syringe IV 10 ml BID NADIA Administration Sodium Chloride 10 ml 08/24/20 22:12 Sodium Chloride 0.9% 10 Ml Flush Syringe IV PRN PRN LINE FLUSH Tramadol HCl 50 mg 08/24/20 22:23 08/28/20 09:18 Tramadol 50 Mg Tab PO 50 mg Q6HR PRN Administration Pain, Moderate (4-6) Nutrition/Malnutrition Assess - Dietary Evaluation Nutrition/Malnutrition Findings: Nutrition Notes Start: 08/25/20 08:25 Freq: Status: Active Protocol: Document 08/25/20 08:25 (Rec: 08/25/20 08:25 [id number]) Nutrition Notes Need for Assessment generated from: electrical construction project manager Initial or Follow up Brief Note Subjective/Other Information RN screen for skin risk. No Chevy score. No wounds noted. Likely an error. Nutrition Intervention Revisit per MD consult or patient Sign Off request: Additional Comments Please reconsult if needed
[2020-08-30] MEDS: PANTOPRAZOLE 40 MG TAB PO SCH (09:18)
[2020-08-30] MEDS: CALCIUM CARBONATE 500 MG TAB CHEW PO SCH (09:18)
[2020-08-30] MEDS: dilTIAZem CD 240 MG CAP PO SCH (09:18)
[2020-08-30] MEDS: FERROUS SULFATE 325 MG TAB PO SCH (09:18)
[2020-08-30] MEDS: POLYETHYLENE GLYCOL 3350 17 GM POWDER PO SCH (09:18)
[2020-08-30] MEDS: ASPIRIN EC 81 MG TAB PO SCH (09:18)
[2020-08-30] MEDS: ALPRAZolam 0.25 MG TAB PO PRN ×2 (13:19→21:38)
--- NOTE | 2020-08-30 14:07 | Progress Note ---
Assessment and Plan 64-year-old male with past medical history of COPD, hypertension, Diabetes,asthma PE was brought to the emergency room because of shortness of breath since this morning. Patient had an IV started by EMS and was given IV mag, Solu-Medrol and an albuterol treatment. EMS states that the patient states his symptoms are worsening. Patient states 5 breathing treatment just prior to arrival and did not work. Shortness of breath better with rest and worse with exertion. Patient states he has a long history of COPD and asthma. Patient states he had multiple visits to the ER for this. Patient denies chest pain. Patient denies fever and chills. Patient complains of dry cough Patient has history of smoking 1 pack x 40 years. Says stopped smoking 2 months ago. History of using Cocaine. Denies alcohol abuse. Says worked in [employer] field before he disabled. Patient and has two children.No Known drug allergies Patient sleepy but arousable. Patient breathing better than yesterday. Still complaining some cough. O2 saturation 100% on 5 litres O2. O2 decreased to 3 litres via nasal canula. Patient afebrile and has no leukocytosis. Chest xray done 08/24/20 reported There is hyperinflation the lungs. No focal infiltrate is seen. Calcified granulomata are noted in the upper lung zones bilaterally. No pneumothorax. ABG on 5 litres O2. ABG pH 7.316 (7.320-7.450) L 08/28/20 11:00 POC ABG pCO2 68.0 mmHg (32.0-48.0) H 08/28/20 11:00 POC ABG pO2 75.4 mmHg (83-108) L 08/28/20 11:00 POC ABG HCO3 33.9 08/28/20 11:00 ABG O2 Saturation 93.6 (0-100) 08/28/20 11:00 Patient is on I/V solumedrol, Albuterol/atrovent aerosol treatments, S/C He jami and Protonix. - Patient Problems (1) Acute respiratory failure with hypoxia Current Visit: No Status: Acute Plan to address problem: O2 3 litres via nasal canula. Continue I/V solumedrol Albuterol/atrovent aerosol treatments S/C Heparine. Famotidine. (2) COPD exacerbation Current Visit: No Status: Acute Plan to address problem: O2 3 litres via nasal canula. Continue I/V solumedrol Albuterol/atrovent aerosol treatments S/C Heparine. Famotidine. Recommend to add Zithromax. (3) ANGELIC (acute kidney injury) Current Visit: No Status: Acute Plan to address problem: Management as per nephrology. (4) GERD (gastroesophageal reflux disease) Current Visit: No Status: Acute Plan to address problem: Patient is on Protonix. (5) HIV (human immunodeficiency virus infection) Current Visit: No Status: Acute Qualifiers: Plan to address problem: Management as per infectious disease consultants. (6) Hypertension Current Visit: No Status: Acute Plan to address problem: Management as per primary care. (7) Cocaine use Current Visit: No Status: Chronic Plan to address problem: Counseled do not use any illegal drugs. (8) Tobacco use Current Visit: No Status: Chronic Plan to address problem: Counseled continue stop smoking. Subjective Date of service: 08/30/20 Interval history: 64-year-old male with past medical history of COPD, hypertension, Diabetes,asthma PE was brought to the emergency room because of shortness of breath since this morning. Patient had an IV started by EMS and was given IV mag, Solu-Medrol and an albuterol treatment. EMS states that the patient states his symptoms are worsening. Patient states 5 breathing treatment just prior to arrival and did not work. Shortness of breath better with rest and worse with exertion. Patient states he has a long history of COPD and asthma. Patient states he had multiple visits to the ER for this. Patient denies chest pain. Patient denies fever and chills. Patient complains of dry cough Patient has history of smoking 1 pack x 40 years. Says stopped smoking 2 months ago. History of using Cocaine. Denies alcohol abuse. 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 Patient and has two children.No Known drug allergies Patient sleepy but arousable. Patient breathing better than yesterday. Still complaining some cough. O2 saturation 100% on 5 litres O2. O2 decreased to 3 litres via nasal canula. Patient afebrile and has no leukocytosis. Chest xray done 08/24/20 reported There is hyperinflation the lungs. No focal infiltrate is seen. Calcified granulomata are noted in the upper lung zones bilaterally. No pneumothorax. ABG on 5 litres O2. ABG pH 7.316 (7.320-7.450) L 08/28/20 11:00 POC ABG pCO2 68.0 mmHg (32.0-48.0) H 08/28/20 11:00 POC ABG pO2 75.4 mmHg (83-108) L 08/28/20 11:00 POC ABG HCO3 33.9 08/28/20 11:00 ABG O2 Saturation 93.6 (0-100) 08/28/20 11:00 Patient is on I/V solumedrol, Albuterol/atrovent aerosol treatments, S/C Heparin and Protonix. Objective Vital Signs - 12hr 08/30/20 08/30/20 08/30/20 03:46 05:25 08:00 Temperature 98.0 F Pulse Rate 88 88 Pulse Rate [ 90 Bilateral] Respiratory 32 H 20 Rate Respiratory 19 Rate [Bilateral ] Blood Pressure 120/51 O2 Sat by Pulse 97 96 Oximetry 08/30/20 08:12 Temperature Pulse Rate Pulse Rate [ Bilateral] Respiratory Rate Respiratory Rate [Bilateral ] Blood Pressure O2 Sat by Pulse 98 Oximetry Constitutional: alert, appears uncomfortable, other (Slight increased work of breathing at rest,) Eyes: non-icteric ENT: oropharynx moist Neck: supple, no JVD Ascultation: Bilateral: diminished breath sounds, wheezes, other (Prolonged expiratory phase.) Cardiovascular: regular rate and rhythm Gastrointestinal: normoactive bowel sounds, soft, non-tender Integumentary: normal Extremities: no cyanosis, no edema Neurologic: normal mental status, non-focal exam, pupils equal and round Psychiatric: anxious, depressed CBC and BMP: 08/28/20 05:55 08/28/20 05:55 ABG, PT/INR, D-dimer: ABG ABG pH 7.316 (7.320-7.450) L 08/28/20 11:00 POC ABG pCO2 68.0 mmHg (32.0-48.0) H 08/28/20 11:00 POC ABG pO2 75.4 mmHg (83-108) L 08/28/20 11:00 POC ABG HCO3 33.9 08/28/20 11:00 ABG O2 Saturation 93.6 (0-100) 08/28/20 11:00 Abnormal lab findings: Abnormal Labs 08/24/20 08/24/20 08/25/20 19:29 19:29 07:00 WBC RBC 3.36 L Hgb 9.7 L Hct 28.5 L MCH MCHC RDW 20.6 H Seg Neuts % (Manual) 97.0 H Lymphocytes % (Manual) 1.0 L Seg Neutrophils # Man 10.2 H Lymphocytes # (Manual) 0.1 L ABG pH POC ABG pCO2 POC ABG pO2 ABG Hemoglobin ABG Oxyhemoglobin ABG Glucose Potassium 3.3 L Carbon Dioxide BUN Glucose 121 H POC Glucose 211 H Calcium 7.6 L Alkaline Phosphatase 154 H Albumin 3.4 L Arterial Blood Glucose Arterial Blood Ionized Calcium 08/25/20 08/25/20 08/25/20 07:21 07:21 12:06 WBC RBC 3.13 L Hgb 8.9 L Hct 26.5 L MCH MCHC RDW 20.6 H Seg Neuts % (Manual) 96.0 H Lymphocytes % (Manual) 3.0 L Seg Neutrophils # Man Lymphocytes # (Manual) 0.2 L ABG pH POC ABG pCO2 POC ABG pO2 ABG Hemoglobin ABG Oxyhemoglobin ABG Glucose Potassium Carbon Dioxide 31 H BUN Glucose 208 H POC Glucose 162 H Calcium 7.4 L Alkaline Phosphatase Albumin Arterial Blood Glucose Arterial Blood Ionized Calcium 08/25/20 08/25/20 08/26/20 17:01 21:52 05:09 WBC 14.9 H RBC 3.11 L Hgb 8.9 L Hct 26.7 L MCH MCHC RDW 20.6 H Seg Neuts % (Manual) Lymphocytes % (Manual) Seg Neutrophils # Man Lymphocytes # (Manual) ABG pH POC ABG pCO2 POC ABG pO2 ABG Hemoglobin ABG Oxyhemoglobin ABG Glucose Potassium Carbon Dioxide BUN Glucose POC Glucose 158 H 175 H Calcium Alkaline Phosphatase Albumin Arterial Blood Glucose Arterial Blood Ionized Calcium 08/26/20 08/26/20 08/26/20 05:09 07:21 11:21 WBC RBC Hgb Hct MCH MCHC RDW Seg Neuts % (Manual) Lymphocytes % (Manual) Seg Neutrophils # Man Lymphocytes # (Manual) ABG pH POC ABG pCO2 POC ABG pO2 ABG Hemoglobin ABG Oxyhemoglobin ABG Glucose Potassium Carbon Dioxide 31 H BUN 21 H Glucose 183 H POC Glucose 149 H 145 H Calcium 7.0 L Alkaline Phosphatase Albumin Arterial Blood Glucose Arterial Blood Ionized Calcium 08/26/20 08/26/20 08/27/20 16:49 21:19 04:41 WBC 11.5 H RBC 2.93 L Hgb 8.0 L Hct 25.2 L MCH 27 L MCHC RDW 21.0 H Seg Neuts % (Manual) Lymphocytes % (Manual) Seg Neutrophils # Man Lymphocytes # (Manual) ABG pH POC ABG pCO2 POC ABG pO2 ABG Hemoglobin ABG Oxyhemoglobin ABG Glucose Potassium Carbon Dioxide BUN Glucose POC Glucose 177 H 144 H Calcium Alkaline Phosphatase Albumin Arterial Blood Glucose Arterial Blood Ionized Calcium 08/27/20 08/27/20 08/27/20 04:41 07:25 07:30 WBC RBC Hgb Hct MCH MCHC RDW Seg Neuts % (Manual) Lymphocytes % (Manual) Seg Neutrophils # Man Lymphocytes # (Manual) ABG pH POC ABG pCO2 POC ABG pO2 ABG Hemoglobin ABG Oxyhemoglobin ABG Glucose Potassium Carbon Dioxide 35 H BUN 24 H Glucose 173 H POC Glucose 153 H 143 H Calcium 7.3 L Alkaline Phosphatase Albumin Arterial Blood Glucose Arterial Blood Ionized Calcium 08/27/20 08/27/20 08/27/20 11:27 15:49 21:17 WBC RBC Hgb Hct MCH MCHC RDW Seg Neuts % (Manual) Lymphocytes % (Manual) Seg Neutrophils # Man Lymphocytes # (Manual) ABG pH POC ABG pCO2 POC ABG pO2 ABG Hemoglobin ABG Oxyhemoglobin ABG Glucose Potassium Carbon Dioxide BUN Glucose POC Glucose 236 H 184 H 144 H Calcium Alkaline Phosphatase Albumin Arterial Blood Glucose Arterial Blood Ionized Calcium 08/28/20 08/28/20 08/28/20 05:55 05:55 07:25 WBC RBC 2.58 L Hgb 7.6 L Hct 22.1 L MCH MCHC 35 H RDW 20.3 H Seg Neuts % (Manual) Lymphocytes % (Manual) Seg Neutrophils # Man Lymphocytes # (Manual) ABG pH POC ABG pCO2 POC ABG pO2 ABG Hemoglobin ABG Oxyhemoglobin ABG Glucose Potassium 3.5 L Carbon Dioxide BUN 33 H Glucose 183 H POC Glucose 164 H Calcium 6.8 L Alkaline Phosphatase Albumin Arterial Blood Glucose Arterial Blood Ionized Calcium 08/28/20 08/28/20 08/28/20 11:00 12:06 15:28 WBC RBC Hgb Hct MCH MCHC RDW Seg Neuts % (Manual) Lymphocytes % (Manual) Seg Neutrophils # Man Lymphocytes # (Manual) ABG pH 7.316 L POC ABG pCO2 68.0 H POC ABG pO2 75.4 L ABG Hemoglobin 8.3 L ABG Oxyhemoglobin 92.5 L ABG Glucose 302 H Potassium Carbon Dioxide BUN Glucose POC Glucose 233 H 146 H Calcium Alkaline Phosphatase Albumin Arterial Blood Glucose 302 H Arterial Blood Ionized Calcium 3.8 L 08/28/20 08/29/20 08/29/20 21:34 07:26 12:05 WBC RBC Hgb Hct MCH MCHC RDW Seg Neuts % (Manual) Lymphocytes % (Manual) Seg Neutrophils # Man Lymphocytes # (Manual) ABG pH POC ABG pCO2 POC ABG pO2 ABG Hemoglobin ABG Oxyhemoglobin ABG Glucose Potassium Carbon Dioxide BUN Glucose POC Glucose 201 H 167 H 253 H Calcium Alkaline Phosphatase Albumin Arterial Blood Glucose Arterial Blood Ionized Calcium 08/29/20 08/29/20 08/30/20 16:32 21:56 07:53 WBC RBC Hgb Hct MCH MCHC RDW Seg Neuts % (Manual) Lymphocytes % (Manual) Seg Neutrophils # Man Lymphocytes # (Manual) ABG pH POC ABG pCO2 POC ABG pO2 ABG Hemoglobin ABG Oxyhemoglobin ABG Glucose Potassium Carbon Dioxide BUN Glucose POC Glucose 128 H 220 H 286 H Calcium Alkaline Phosphatase Albumin Arterial Blood Glucose Arterial Blood Ionized Calcium 08/30/20 11:29 WBC RBC Hgb Hct MCH MCHC RDW Seg Neuts % (Manual) Lymphocytes % (Manual) Seg Neutrophils # Man Lymphocytes # (Manual) ABG pH POC ABG pCO2 POC ABG pO2 ABG Hemoglobin ABG Oxyhemoglobin ABG Glucose Potassium Carbon Dioxide BUN Glucose POC Glucose 299 H Calcium Alkaline Phosphatase Albumin Arterial Blood Glucose Arterial Blood Ionized Calcium
[2020-08-30] MEDS: oxyCODONE /ACETAMINOPHEN 5-325MG TAB PO PRN (17:07)
[2020-08-30] MEDS: MIRTAZAPINE 15 MG TAB PO SCH (21:38)
[2020-08-30] MEDS: MONTELUKAST 10 MG TAB PO SCH (21:38)
[2020-08-30] MEDS: INSULIN LISPRO 100 UNIT/ML SUB-Q SCH (22:55)
[2020-08-31] MEDS: IPRATROPIUM/ALBUTEROL SULFATE 3 ML AMPUL.NEB IH SCH ×7 (01:02→23:39)
[2020-08-31] MEDS: methylPREDNISolone Sod Succinate 125 MG/2 ML INJ IV SCH ×4 (01:48→17:27)
[2020-08-31] MEDS: HEPARIN 5,000 UNIT/1 ML VIAL SUB-Q SCH ×3 (05:52→22:45)
[2020-08-31] MEDS: ARFORMOTEROL 15 MCG/2 ML NEBU IH SCH ×2 (08:06→20:18)
[2020-08-31] MEDS: BUDESONIDE 0.5 MG/2 ML NEBU IH SCH ×2 (08:06→20:18)
--- NOTE | 2020-08-31 08:27 | Progress Note ---
Assessment and Plan Assessment and plan: Patient continues to require intermittent BiPAP especially in the nights Today on 4 L of nasal cannula oxygen. Patient has home oxygen uses 3 L --Acute exacerbation of COPD ; Patient is a current smoker Continue aggressive neb treatments with budesonide , arformoterol and DuoNeb solutions Continue empiric antibiotic, oxygen titrate O2 sats to more than 90% BiPAP as needed, home O2 evaluation at discharge pulmonary following Solu-Medrol increased to 60 mg every 6 hours --Acute hypoxic respiratory failure ; requiring BiPAP Continue oxygen via nasal cannula Titrate O2 sats more than 90%, BiPAP as needed Home O2 evaluation prior to discharge --Leukocytosis-improved Suspect secondary to steroids As well as bronchitis/pneumonitis Continue bronchodilators, empiric antibiotics, tapering steroids --Hypertension; moderate control Continue current antihypertensives, as needed medications --Normocytic anemia Hemoglobin is down to 8.0 > 7.6 this morning Closely monitor H&H transfuse as needed --Hypokalemia; Replenished, follow electrolytes --Hyperglycemia -likely secondary to steroids HD A1c 5.8, Accu-Chek sliding scale coverage Long-acting insulin if needed --Ongoing tobacco abuse Patient counseled on tobacco cessation Nicotine patch as needed --history of HIV infection for many years Patient follow-up private ID/health department upon discharge --Mild to moderate malnutrition/hypoalbuminemia Nutrition supplements and supportive care --DVT prophylaxis; Heparin subcu/SCDs Physical therapy/Occupational Therapy evaluation and treatment DC planning per case management Possible SNF placement. We will closely monitor the patient and adjust the management as needed Possible discharge in 1 to 2 days if stable and cleared by pulmonary Plan of care reviewed with the patient and his nurse I also discussed with broadcast producer Dr. Rahman and the case management Daily Hospital course; 08/29; patient requiring BiPAP, severely short of breath, pulmonary following; Wean as tolerated ; requiring intermittent BiPAP especially at night This morning patient is on 4 L of nasal cannula oxygen Patient already has home oxygen at 3 L Pulmonary following 08/31/2020; patient continues to be in shortness of breath Unable to keep his oxygen, confused at times BiPAP as needed, pulmonary following Recommend placement SNF, Check for mccracken PCR PT OT evaluation History Interval history: I have seen and examined the patient at the bedside Patient's chart and medications reviewed Patient continues to have shortness of breath Sometimes removing his oxygen In mild distress Vital signs noted Hospitalist Physical - Constitutional Vitals: Temp Pulse Resp BP Pulse Ox 97.8 F 83 19 100/50 92 08/31/20 05:08 08/31/20 08:00 08/31/20 08:00 08/31/20 05:08 08/31/20 08:07 General appearance: Present: mild distress, cachectic, disheveled, other (Intermittent BiPAP and nasal cannula oxygen) - EENT Eyes: Present: PERRL, EOM intact - Neck Neck: Present: supple, normal ROM - Respiratory Respiratory effort: labored Respiratory: bilateral: diminished, rhonchi, wheezing, negative: rales - Cardiovascular Rhythm: regular Heart Sounds: Present: S1 & S2 - Extremities Extremities: no ischemia, No edema - Abdominal General gastrointestinal: soft, non-tender, non-distended, normal bowel sounds - Integumentary Integumentary: Present: clear, warm - Psychiatric Psychiatric: appropriate mood/affect, cooperative - Neurologic Neurologic: moves all extremities, other (Confused at times) HEART Score - HEART Score Troponin: Troponin T < 0.010 ng/mL (0.00-0.029) 08/24/20 19:29 Results - Labs CBC & Chem 7: 08/28/20 05:55 08/28/20 05:55 Labs: Laboratory Last Values WBC 7.8 K/mm3 (4.5-11.0) 08/28/20 05:55 RBC 2.58 M/mm3 (3.65-5.03) L 08/28/20 05:55 Hgb 7.6 gm/dl (11.8-15.2) L 08/28/20 05:55 Hct 22.1 % (35.5-45.6) L 08/28/20 05:55 MCV 85 fl (84-94) 08/28/20 05:55 MCH 30 pg (28-32) 08/28/20 05:55 MCHC 35 % (32-34) H 08/28/20 05:55 RDW 20.3 % (13.2-15.2) H 08/28/20 05:55 Plt Count 165 K/mm3 (140-440) 08/28/20 05:55 Add Manual Diff Complete 08/25/20 07:21 Total Counted 100 08/25/20 07: Seg Neutrophils % Heel Coverer Machine Operator 08/25/20 07:21 Seg Neuts % (Manual) 96.0 % (40.0-70.0) H 08/25/20 07:21 Lymphocytes % (Manual) 3.0 % (13.4-35.0) L 08/25/20 07:21 Monocytes % (Manual) 2.0 % (0.0-7.3) 08/24/20 19:29 Myelocytes % 1.0 % 08/25/20 07: Nucleated RBC % Not Reportable 08/25/20 07: Seg Neutrophils # Man 4.8 K/mm3 (1.8-7.7) 08/25/20 07:21 Band Neutrophils # 0.0 K/mm3 08/25/20 07: Lymphocytes # (Manual) 0.2 K/mm3 (1.2-5.4) L 08/25/20 07:21 Abs React Lymphs (Man) 0.0 K/mm3 08/25/20 07:21 Monocytes # (Manual) 0.0 K/mm3 (0.0-0.8) 08/25/20 07:21 Eosinophils # (Manual) 0.0 K/mm3 (0.0-0.4) 08/25/20 07:21 Basophils # (Manual) 0.0 K/mm3 (0.0-0.1) 08/25/20 07:21 Metamyelocytes # 0.0 K/mm3 08/25/20 07:21 Myelocytes # 0.1 K/mm3 08/25/20 07:21 Promyelocytes # 0.0 K/mm3 08/25/20 07:21 Blast Cells # 0.0 K/mm3 08/25/20 07:21 WBC Morphology Not Reportable 08/25/20 07:21 Hypersegmented Neuts Not Reportable 08/25/20 07:21 Hyposegmented Neuts Not Reportable 08/25/20 07:21 Hypogranular Neuts Not Reportable 08/25/20 07:21 Smudge Cells Not Reportable 08/25/20 07:21 Toxic Granulation Not Reportable 08/25/20 07:21 Toxic Vacuolation Not Reportable 08/25/20 07:21 Dohle Bodies Not Reportable 08/25/20 07:21 Pelger-Huet Anomaly Not Reportable 08/25/20 07:21 Ruma Rods Not Reportable 08/25/20 07:21 Platelet Estimate Consistent w auto 08/25/20 07:21 Clumped Platelets Not Reportable 08/25/20 07:21 Plt Clumps, EDTA Not Reportable 08/25/20 07:21 Large Platelets Not Reportable 08/25/20 07:21 Giant Platelets Not Reportable 08/25/20 07:21 Platelet Satelliting Not Reportable 08/25/20 07:21 Plt Morphology Comment Not Reportable 08/25/20 07:21 RBC Morphology Not Reportable 08/25/20 07:21 Dimorphic RBCs Not Reportable 08/25/20 07:21 Polychromasia Not Reportable 08/25/20 07:21 Hypochromasia 1+ 08/25/20 07:21 Poikilocytosis 1+ 08/25/20 07:21 Anisocytosis 1+ 08/25/20 07:21 Microcytosis Not Reportable 08/25/20 07:21 Macrocytosis Not Reportable 08/25/20 07:21 Spherocytes Not Reportable 08/25/20 07:21 Pappenheimer Bodies Not Reportable 08/25/20 07:21 Sickle Cells Not Reportable 08/25/20 07:21 Target Cells Not Reportable 08/25/20 07:21 Tear Drop Cells Not Reportable 08/25/20 07:21 Ovalocytes 1+ 08/25/20 07:21 Helmet Cells Not Reportable 08/25/20 07:21 [place] Bodies Not Reportable 08/25/20 07:21 Gabriels Rings Not Reportable 08/25/20 07:21 [place] Cells Not Reportable 08/25/20 07:21 Bite Cells Not Reportable 08/25/20 07:21 Crenated Cell Not Reportable 08/25/20 07:21 Elliptocytes 2+ 08/25/20 07:21 Acanthocytes (Spur) 1+ 08/25/20 07:21 Rouleaux Not Reportable 08/25/20 07:21 Hemoglobin C Crystals Not Reportable 08/25/20 07:21 Schistocytes Not Reportable 08/25/20 07:21 Malaria parasites Not Reportable 08/25/20 07:21 Ric Bodies Not Reportable 08/25/20 07:21 Hem Pathologist Commnt No 08/25/20 07:21 ABG pH 7.316 (7.320-7.450) L 08/28/20 11:00 POC ABG pCO2 68.0 mmHg (32.0-48.0) H 08/28/20 11:00 POC ABG pO2 75.4 mmHg (83-108) L 08/28/20 11:00 POC ABG HCO3 33.9 08/28/20 11:00 ABG O2 Saturation 93.6 (0-100) 08/28/20 11:00 POC ABG Base Excess 6.6 08/28/20 11:00 ABG Hemoglobin 8.3 (12.0-17.5) L 08/28/20 11:00 ABG Oxyhemoglobin 92.5 (94-98) L 08/28/20 11:00 ABG Methemoglobin 0.3 (0.0-1.5) 08/28/20 11:00 ABG Sodium 143.2 mmol/L (136.0-145.0) 08/28/20 11:00 ABG Potassium 3.8 mmol/L (3.40-4.50) 08/28/20 11:00 ABG Chloride 103.0 mmol/L (98-107) 08/28/20 11:00 ABG Glucose 302 mg/dL (65-95) H 08/28/20 11:00 Carboxyhemoglobin 0.9 (0.5-1.5) 08/28/20 11:00 FiO2 % 40.0 08/28/20 11:00 Sodium 144 mmol/L (137-145) 08/28/20 05:55 Potassium 3.5 mmol/L (3.6-5.0) L 08/28/20 05:55 Chloride 103.3 mmol/L (98-107) 08/28/20 05:55 Carbon Dioxide 29 mmol/L (22-30) 08/28/20 05:55 Anion Gap 15 mmol/L 08/28/20 05:55 BUN 33 mg/dL (9-20) H 08/28/20 05:55 Creatinine 1.2 mg/dL (0.8-1.3) 08/28/20 05:55 Estimated GFR > 60 ml/min 08/28/20 05:55 BUN/Creatinine Ratio 28 % 08/28/20 05:55 Glucose 183 mg/dL (75-100) H 08/28/20 05:55 POC Glucose 166 mg/dL (70-105) H 08/31/20 07:41 Hemoglobin A1c 5.8 % (4-6) 08/25/20 07:27 Calcium 6.8 mg/dL (8.4-10.2) L 08/28/20 05:55 Total Bilirubin 0.40 mg/dL (0.1-1.2) 08/24/20 19:29 AST 21 units/L (5-40) 08/24/20 19:29 ALT 36 units/L (7-56) 08/24/20 19:29 Alkaline Phosphatase 154 units/L (35-129) H 08/24/20 19:29 Troponin T < 0.010 ng/mL (0.00-0.029) 08/24/20 19:29 Total Protein 6.5 g/dL (6.3-8.2) 08/24/20 19:29 Albumin 3.4 g/dL (3.9-5) L 08/24/20 19:29 Albumin/Globulin Ratio 1.1 % 08/24/20 19:29 Arterial Blood Glucose 302 mg/dL (65-95) H 08/28/20 11:00 Arterial Blood Ionized Calcium 3.8 mg/dL (4.6-5.3) L 08/28/20 11:00 [place]/IV: Voiding Method Bedside Commode Active Medications - Current Medications Current Medications: Generic Name Dose Route Start Last Admin Trade Name Freq PRN Reason Stop Dose Admin Acetaminophen 650 mg 08/24/20 22:12 Acetaminophen 325 Mg Tab PO Q4H PRN Pain MILD(1-3)/Fever >100.5/KOENIG Albuterol/Ipratropium 1 ampul 08/29/20 20:00 08/31/20 08:06 Ipratropium/Albuterol Sulfate 3 Ml Ampul.Neb IH 1 ampul Q4HRT NADIA Administration Alprazolam 0.25 mg 08/30/20 11:30 08/30/20 21:38 Alprazolam 0.25 Mg Tab PO 0.25 mg Q8H PRN Administration Anxiety Arformoterol Tartrate 15 mcg 08/25/20 20:00 08/31/20 08:06 Arformoterol 15 Mcg/2 Ml Nebu IH 15 mcg Q12HRT NADIA Administration Aspirin 81 mg 08/25/20 10:00 08/30/20 09:18 Aspirin Ec 81 Mg Tab PO 81 mg QDAY NADIA Administration Atorvastatin Calcium 40 mg 08/25/20 22:00 08/30/20 21:38 Atorvastatin 40 Mg Tab PO 40 mg QHS NADIA Administration Budesonide 0.5 mg 08/25/20 08:00 08/31/20 08:06 Budesonide 0.5 Mg/2 Ml Nebu IH 0.5 mg Q12HRT NADIA Administration Calcium Carbonate/Glycine 500 mg 08/25/20 10:00 08/30/20 09:18 Calcium Carbonate 500 Mg Tab Chew PO 500 mg QDAY NADIA Administration Diltiazem HCl 240 mg 08/26/20 10:00 08/30/20 09:18 Diltiazem Cd 240 Mg Cap PO 240 mg QDAY NADIA Administration Docusate Sodium 100 mg 08/24/20 22:23 Docusate Sodium 100 Mg Cap PO BID PRN Constip unreliev by MOM/or NPO Ferrous Sulfate 325 mg 08/25/20 10:00 08/30/20 09:18 Ferrous Sulfate 325 Mg Tab PO 325 mg QDAY NADIA Administration Guaifenesin 400 mg 08/29/20 13:00 08/30/20 05:33 Guaifenesin 200 Mg Tab PO 400 mg Q4HR PRN Administration Cough Heparin Sodium (Porcine) 5,000 unit 08/25/20 06:00 08/31/20 05:52 Heparin 5,000 Unit/1 Ml Vial SUB-Q 5,000 unit Q8HR NADIA Administration Hydralazine HCl 10 mg 08/24/20 22:14 08/27/20 16:27 Hydralazine 20 Mg/1 Ml Inj IV 10 mg Q6H PRN Administration SBP>/=160; DBP >/=100 Insulin Human Lispro 0 unit 08/25/20 22:00 08/30/20 22:55 Insulin Lispro 100 Unit/Ml SUB-Q 2 unit QHS NADIA Administration Protocol Methylprednisolone Sodium Succinate 60 mg 08/28/20 00:00 08/31/20 05:52 Methylprednisolone Sod Succinate 125 Mg/2 Ml Inj IV 60 mg Q6HR NADIA Administration Mirtazapine 7.5 mg 08/25/20 22:00 08/30/20 21:38 Mirtazapine 15 Mg Tab PO 7.5 mg QHS NADIA Administration Montelukast Sodium 10 mg 08/25/20 22:00 08/30/20 21:38 Montelukast 10 Mg Tab PO 10 mg QHS NADIA Administration Ondansetron HCl 4 mg 08/24/20 22:12 Ondansetron 4 Mg/2 Ml Inj IV Q8H PRN Nausea And Vomiting Oxycodone/Acetaminophen 1 tab 08/24/20 22:23 08/30/20 17:07 Oxycodone /Acetaminophen 5-325mg Tab PO 1 tab BID PRN Administration Pain , Severe (7-10) Pantoprazole Sodium 40 mg 08/25/20 10:00 08/30/20 09:18 Pantoprazole 40 Mg Tab PO 40 mg QDAY NADIA Administration Polyethylene Glycol 17 gm 08/28/20 10:00 08/30/20 09:18 Polyethylene Glycol 3350 17 Gm Powder PO 17 gm QDAY NADIA Administration Sodium Chloride 10 ml 08/25/20 10:00 08/30/20 21:40 Sodium Chloride 0.9% 10 Ml Flush Syringe IV 10 ml BID NADIA Administration Sodium Chloride 10 ml 08/24/20 22:12 Sodium Chloride 0.9% 10 Ml Flush Syringe IV PRN PRN LINE FLUSH Tramadol HCl 50 mg 08/24/20 22:23 08/28/20 09:18 Tramadol 50 Mg Tab PO 50 mg Q6HR PRN Administration Pain, Moderate (4-6) Nutrition/Malnutrition Assess - Dietary Evaluation Nutrition/Malnutrition Findings: Nutrition Notes Start: 08/25/20 08:25 Freq: Status: Active Protocol: Document 08/25/20 08:25 SERGIO (Rec: 08/25/20 08:25 [id number]) Nutrition Notes 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 No Chevy score. No wounds noted. Likely an error. Nutrition Intervention Revisit per MD consult or patient Sign Off request: Additional Comments Please reconsult if needed
[2020-08-31] MEDS: POLYETHYLENE GLYCOL 3350 17 GM POWDER PO SCH (12:32)
[2020-08-31] MEDS: ASPIRIN EC 81 MG TAB PO SCH (12:32)
[2020-08-31] MEDS: FERROUS SULFATE 325 MG TAB PO SCH (12:32)
[2020-08-31] MEDS: ALPRAZolam 0.25 MG TAB PO PRN (12:32)
[2020-08-31] MEDS: CALCIUM CARBONATE 500 MG TAB CHEW PO SCH (12:33)
[2020-08-31] MEDS: PANTOPRAZOLE 40 MG TAB PO SCH (12:33)
[2020-08-31] MEDS: dilTIAZem CD 240 MG CAP PO SCH (12:33)
[2020-08-31] MEDS: hydrALAZINE 20 MG/1 ML INJ IV PRN (13:40)
--- NOTE | 2020-08-31 14:46 | Progress Note ---
Assessment and Plan Acute hypoxemic respiratory failure Acute COPD exacerbation ANGELIC GERD (gastroesophageal reflux disease) HIV (human immunodeficiency virus infection) Hypertension Cocaine use Tobacco use disorder - continue to wean supplemental oxygen to keep O2 sats > 90% - continue Bronchodilators (HEIDI & LABA) with pulm hygiene per RT - continue systemic steroids with slow taper - continue inhaled corticosteroids - avoid nephrotoxins, renally dose all medications - continue mobility protocols to prevent pressure ulcers - PT/OT as tolerated - Wound care per RN/WCT - continue accuchecks with glycemic control per SSI for target blood glucose < 180 mg/dL - tobacco abstinence strongly counseled at the bedside - home oxygen evaluation at discharge - GI & VTE prophylaxis - Flu & pneumovax per protocol - Pulmonary out patient follow up for PFTs and optimization of respiratory status - continue other care per attending / other consultants - prn analgesia per pain score ... re-evaluate in am & prn Subjective Date of service: 08/31/20 Principal diagnosis: Ac hypoxemic resp failure; AE-COPD; ANGELIC; HIV +ve; HTN; Cocaine Use Interval history: Patient is seen today for: Acute hypoxemic respiratory failure; AE-COPD; ANGELIC; HIV infection; HTN; Cocaine use; Tobacco use disorder Seen and examined at bedside; 24hour events reviewed; nursing and respiratory care staff consulted; no adverse overnight events reported to me; resting in bed; no emesis or overt aspiration; remains on supplemental oxygen; afebrile; better BIPAP compliance stressed Objective Vital Signs - 12hr 08/31/20 08/31/20 08/31/20 05:08 06:54 08:00 Temperature 97.8 F Pulse Rate 68 Pulse Rate [ 83 Bilateral] Respiratory 20 Rate Respiratory 19 Rate [Bilateral ] Blood Pressure 100/50 O2 Sat by Pulse 96 Oximetry 08/31/20 08/31/20 08/31/20 08:07 10:00 11:25 Temperature 97.5 F L Pulse Rate 109 H Pulse Rate [ Bilateral] Respiratory 20 Rate Respiratory Rate [Bilateral ] Blood Pressure 183/83 O2 Sat by Pulse 92 90 98 Oximetry Constitutional: alert, other (mildly increased work of breathing at rest) Eyes: non-icteric ENT: oropharynx moist Neck: supple, no JVD Ascultation: Bilateral: diminished breath sounds, wheezes (faint; expiratory), other (Prolonged expiratory phase.) Percussion: Bilateral: not dull Cardiovascular: regular rate and rhythm Gastrointestinal: normoactive bowel sounds, soft, non-tender, non-distended Integumentary: normal Extremities: no cyanosis, no edema, pulses normal, no ischemia or petechiae Neurologic: normal mental status, non-focal exam, pupils equal and round, motor strength normal and Psychiatric: other (flat affect) CBC and BMP: 09/05/20 04:56 09/07/20 09:41 ABG, PT/INR, D-dimer: ABG ABG pH 7.316 (7.320-7.450) L 08/28/20 11:00 POC ABG pCO2 68.0 mmHg (32.0-48.0) H 08/28/20 11:00 POC ABG pO2 75.4 mmHg (83-108) L 08/28/20 11:00 POC ABG HCO3 33.9 08/28/20 11:00 ABG O2 Saturation 93.6 (0-100) 08/28/20 11:00 Abnormal lab findings: Abnormal Labs 08/24/20 08/24/20 08/25/20 19:29 19:29 07:00 WBC RBC 3.36 L Hgb 9.7 L Hct 28.5 L MCH MCHC RDW 20.6 H Seg Neuts % (Manual) 97.0 H Lymphocytes % (Manual) 1.0 L Seg Neutrophils # Man 10.2 H Lymphocytes # (Manual) 0.1 L ABG pH POC ABG pCO2 POC ABG pO2 ABG Hemoglobin ABG Oxyhemoglobin ABG Glucose Potassium 3.3 L Carbon Dioxide BUN Glucose 121 H POC Glucose 211 H Calcium 7.6 L Alkaline Phosphatase 154 H Albumin 3.4 L Arterial Blood Glucose Arterial Blood Ionized Calcium 08/25/20 08/25/20 08/25/20 07:21 07:21 12:06 WBC RBC 3.13 L Hgb 8.9 L Hct 26.5 L MCH MCHC RDW 20.6 H Seg Neuts % (Manual) 96.0 H Lymphocytes % (Manual) 3.0 L Seg Neutrophils # Man Lymphocytes # (Manual) 0.2 L ABG pH POC ABG pCO2 POC ABG pO2 ABG Hemoglobin ABG Oxyhemoglobin ABG Glucose Potassium Carbon Dioxide 31 H BUN Glucose 208 H POC Glucose 162 H Calcium 7.4 L Alkaline Phosphatase Albumin Arterial Blood Glucose Arterial Blood Ionized Calcium 08/25/20 08/25/20 08/26/20 17:01 21:52 05:09 WBC 14.9 H RBC 3.11 L Hgb 8.9 L Hct 26.7 L MCH MCHC RDW 20.6 H Seg Neuts % (Manual) Lymphocytes % (Manual) Seg Neutrophils # Man Lymphocytes # (Manual) ABG pH POC ABG pCO2 POC ABG pO2 ABG Hemoglobin ABG Oxyhemoglobin ABG Glucose Potassium Carbon Dioxide BUN Glucose POC Glucose 158 H 175 H Calcium Alkaline Phosphatase Albumin Arterial Blood Glucose Arterial Blood Ionized Calcium 08/26/20 08/26/20 08/26/20 05:09 07:21 11:21 WBC RBC Hgb Hct MCH MCHC RDW Seg Neuts % (Manual) Lymphocytes % (Manual) Seg Neutrophils # Man Lymphocytes # (Manual) ABG pH POC ABG pCO2 POC ABG pO2 ABG Hemoglobin ABG Oxyhemoglobin ABG Glucose Potassium Carbon Dioxide 31 H BUN 21 H Glucose 183 H POC Glucose 149 H 145 H Calcium 7.0 L Alkaline Phosphatase Albumin Arterial Blood Glucose Arterial Blood Ionized Calcium 08/26/20 08/26/20 08/27/20 16:49 21:19 04:41 WBC 11.5 H RBC 2.93 L Hgb 8.0 L Hct 25.2 L MCH 27 L MCHC RDW 21.0 H Seg Neuts % (Manual) Lymphocytes % (Manual) Seg Neutrophils # Man Lymphocytes # (Manual) ABG pH POC ABG pCO2 POC ABG pO2 ABG Hemoglobin ABG Oxyhemoglobin ABG Glucose Potassium Carbon Dioxide BUN Glucose POC Glucose 177 H 144 H Calcium Alkaline Phosphatase Albumin Arterial Blood Glucose Arterial Blood Ionized Calcium 08/27/20 08/27/20 08/27/20 04:41 07:25 07:30 WBC RBC Hgb Hct MCH MCHC RDW Seg Neuts % (Manual) Lymphocytes % (Manual) Seg Neutrophils # Man Lymphocytes # (Manual) ABG pH POC ABG pCO2 POC ABG pO2 ABG Hemoglobin ABG Oxyhemoglobin ABG Glucose Potassium Carbon Dioxide 35 H BUN 24 H Glucose 173 H POC Glucose 153 H 143 H Calcium 7.3 L Alkaline Phosphatase Albumin Arterial Blood Glucose Arterial Blood Ionized Calcium 08/27/20 08/27/20 08/27/20 11:27 15:49 21:17 WBC RBC Hgb Hct MCH MCHC RDW Seg Neuts % (Manual) Lymphocytes % (Manual) Seg Neutrophils # Man Lymphocytes # (Manual) ABG pH POC ABG pCO2 POC ABG pO2 ABG Hemoglobin ABG Oxyhemoglobin ABG Glucose Potassium Carbon Dioxide BUN Glucose POC Glucose 236 H 184 H 144 H Calcium Alkaline Phosphatase Albumin Arterial Blood Glucose Arterial Blood Ionized Calcium 08/28/20 08/28/20 08/28/20 05:55 05:55 07:25 WBC RBC 2.58 L Hgb 7.6 L Hct 22.1 L MCH MCHC 35 H RDW 20.3 H Seg Neuts % (Manual) Lymphocytes % (Manual) Seg Neutrophils # Man Lymphocytes # (Manual) ABG pH POC ABG pCO2 POC ABG pO2 ABG Hemoglobin ABG Oxyhemoglobin ABG Glucose Potassium 3.5 L Carbon Dioxide BUN 33 H Glucose 183 H POC Glucose 164 H Calcium 6.8 L Alkaline Phosphatase Albumin Arterial Blood Glucose Arterial Blood Ionized Calcium 08/28/20 08/28/20 08/28/20 11:00 12:06 15:28 WBC RBC Hgb Hct MCH MCHC RDW Seg Neuts % (Manual) Lymphocytes % (Manual) Seg Neutrophils # Man Lymphocytes # (Manual) ABG pH 7.316 L POC ABG pCO2 68.0 H POC ABG pO2 75.4 L ABG Hemoglobin 8.3 L ABG Oxyhemoglobin 92.5 L ABG Glucose 302 H Potassium Carbon Dioxide BUN Glucose POC Glucose 233 H 146 H Calcium Alkaline Phosphatase Albumin Arterial Blood Glucose 302 H Arterial Blood Ionized Calcium 3.8 L 08/28/20 08/29/20 08/29/20 21:34 07:26 12:05 WBC RBC Hgb Hct MCH MCHC RDW Seg Neuts % (Manual) Lymphocytes % (Manual) Seg Neutrophils # Man Lymphocytes # (Manual) ABG pH POC ABG pCO2 POC ABG pO2 ABG Hemoglobin ABG Oxyhemoglobin ABG Glucose Potassium Carbon Dioxide BUN Glucose POC Glucose 201 H 167 H 253 H Calcium Alkaline Phosphatase Albumin Arterial Blood Glucose Arterial Blood Ionized Calcium 08/29/20 08/29/20 08/30/20 16:32 21:56 07:53 WBC RBC Hgb Hct MCH MCHC RDW Seg Neuts % (Manual) Lymphocytes % (Manual) Seg Neutrophils # Man Lymphocytes # (Manual) ABG pH POC ABG pCO2 POC ABG pO2 ABG Hemoglobin ABG Oxyhemoglobin ABG Glucose Potassium Carbon Dioxide BUN Glucose POC Glucose 128 H 220 H 286 H Calcium Alkaline Phosphatase Albumin Arterial Blood Glucose Arterial Blood Ionized Calcium 08/30/20 08/30/20 08/30/20 11:29 17:32 22:03 WBC RBC Hgb Hct MCH MCHC RDW Seg Neuts % (Manual) Lymphocytes % (Manual) Seg Neutrophils # Man Lymphocytes # (Manual) ABG pH POC ABG pCO2 POC ABG pO2 ABG Hemoglobin ABG Oxyhemoglobin ABG Glucose Potassium Carbon Dioxide BUN Glucose POC Glucose 299 H 260 H 196 H Calcium Alkaline Phosphatase Albumin Arterial Blood Glucose Arterial Blood Ionized Calcium 08/31/20 08/31/20 07:41 11:26 WBC RBC Hgb Hct MCH MCHC RDW Seg Neuts % (Manual) Lymphocytes % (Manual) Seg Neutrophils # Man Lymphocytes # (Manual) ABG pH POC ABG pCO2 POC ABG pO2 ABG Hemoglobin ABG Oxyhemoglobin ABG Glucose Potassium Carbon Dioxide BUN Glucose POC Glucose 166 H 269 H Calcium Alkaline Phosphatase Albumin Arterial Blood Glucose Arterial Blood Ionized Calcium Allied health notes reviewed: nursing
[2020-08-31] MEDS: INSULIN LISPRO 100 UNIT/ML SUB-Q SCH (22:45)
[2020-08-31] MEDS: MIRTAZAPINE 15 MG TAB PO SCH (22:45)
[2020-08-31] MEDS: MONTELUKAST 10 MG TAB PO SCH (22:49)
[2020-09-01] MEDS: methylPREDNISolone Sod Succinate 125 MG/2 ML INJ IV SCH ×4 (00:11→17:00)
[2020-09-01] MEDS: traMADol 50 MG TAB PO PRN (05:05)
[2020-09-01] MEDS: ALPRAZolam 0.25 MG TAB PO PRN (05:05)
[2020-09-01] MEDS: HEPARIN 5,000 UNIT/1 ML VIAL SUB-Q SCH ×3 (05:05→21:37)
[2020-09-01] MEDS: IPRATROPIUM/ALBUTEROL SULFATE 3 ML AMPUL.NEB IH SCH ×4 (05:34→15:14)
[2020-09-01] MEDS: ARFORMOTEROL 15 MCG/2 ML NEBU IH SCH ×2 (08:23→19:31)
[2020-09-01] MEDS: BUDESONIDE 0.5 MG/2 ML NEBU IH SCH ×2 (08:23→19:31)
--- NOTE | 2020-09-01 08:38 | Progress Note ---
Assessment and Plan Acute hypoxemic respiratory failure Acute COPD exacerbation ANGELIC GERD (gastroesophageal reflux disease) HIV (human immunodeficiency virus infection) Hypertension Cocaine use Tobacco use disorder - continue to wean supplemental oxygen to keep O2 sats > 90% - continue Bronchodilators (HEIDI & LABA) with pulm hygiene per RT - continue systemic steroids with slow taper - continue inhaled corticosteroids - avoid nephrotoxins, renally dose all medications - continue mobility protocols to prevent pressure ulcers - PT/OT as tolerated - Wound care per RN/WCT - continue accuchecks with glycemic control per SSI for target blood glucose < 180 mg/dL - tobacco abstinence strongly counseled at the bedside - home oxygen evaluation at discharge - GI & VTE prophylaxis - Flu & pneumovax per protocol - Pulmonary out patient follow up for PFTs and optimization of respiratory status - continue other care per attending / other consultants - prn analgesia per pain score Subjective Date of service: 09/01/20 Principal diagnosis: Ac hypoxemic resp failure; AE-COPD; ANGELIC; HIV +ve; HTN; Cocaine Use Interval history: Patient is seen today for: Acute hypoxemic respiratory failure; AE-COPD; ANGELIC; HIV infection; HTN; Cocaine use; Tobacco use disorder Seen and examined at bedside; 24hour events reviewed; nursing and respiratory care staff consulted; no adverse overnight events reported to me; resting in bed in moderate tomasa distress, conversational dyspnea. Continue to smoke cigarettes, cocaine use. Endorses shortness of breath, no chest pain, poor sleep Objective Vital Signs - 12hr 08/31/20 09/01/20 09/01/20 23:36 04:00 04:20 Temperature 97.8 F Pulse Rate 93 H 94 H Pulse Rate [ 90 Bilateral] Respiratory 37 H 18 Rate Respiratory 19 Rate [Bilateral ] Blood Pressure 116/59 O2 Sat by Pulse 96 93 Oximetry 09/01/20 05:05 Temperature Pulse Rate Pulse Rate [ Bilateral] Respiratory 24 Rate Respiratory Rate [Bilateral ] Blood Pressure O2 Sat by Pulse Oximetry Constitutional: alert, appears uncomfortable, other (Slight increased work of breathing at rest,) Eyes: non-icteric ENT: oropharynx moist Neck: supple, no JVD Effort: mildly labored Ascultation: Bilateral: diminished breath sounds, wheezes, other (Prolonged expiratory phase.) Cardiovascular: other (tachycardia, S1,S2) Gastrointestinal: normoactive bowel sounds, soft, non-tender Integumentary: normal Extremities: no cyanosis, no edema Neurologic: normal mental status, non-focal exam, pupils equal and round Psychiatric: anxious, depressed CBC and BMP: 08/28/20 05:55 08/28/20 05:55 ABG, PT/INR, D-dimer: ABG ABG pH 7.316 (7.320-7.450) L 08/28/20 11:00 POC ABG pCO2 68.0 mmHg (32.0-48.0) H 08/28/20 11:00 POC ABG pO2 75.4 mmHg (83-108) L 08/28/20 11:00 POC ABG HCO3 33.9 08/28/20 11:00 ABG O2 Saturation 93.6 (0-100) 08/28/20 11:00 Abnormal lab findings: Abnormal Labs 08/24/20 08/24/20 08/25/20 19:29 19:29 07:00 WBC RBC 3.36 L Hgb 9.7 L Hct 28.5 L MCH MCHC RDW 20.6 H Seg Neuts % (Manual) 97.0 H Lymphocytes % (Manual) 1.0 L Seg Neutrophils # Man 10.2 H Lymphocytes # (Manual) 0.1 L ABG pH POC ABG pCO2 POC ABG pO2 ABG Hemoglobin ABG Oxyhemoglobin ABG Glucose Potassium 3.3 L Carbon Dioxide BUN Glucose 121 H POC Glucose 211 H Calcium 7.6 L Alkaline Phosphatase 154 H Albumin 3.4 L Arterial Blood Glucose Arterial Blood Ionized Calcium 08/25/20 08/25/20 08/25/20 07:21 07:21 12:06 WBC RBC 3.13 L Hgb 8.9 L Hct 26.5 L MCH MCHC RDW 20.6 H Seg Neuts % (Manual) 96.0 H Lymphocytes % (Manual) 3.0 L Seg Neutrophils # Man Lymphocytes # (Manual) 0.2 L ABG pH POC ABG pCO2 POC ABG pO2 ABG Hemoglobin ABG Oxyhemoglobin ABG Glucose Potassium Carbon Dioxide 31 H BUN Glucose 208 H POC Glucose 162 H Calcium 7.4 L Alkaline Phosphatase Albumin Arterial Blood Glucose Arterial Blood Ionized Calcium 08/25/20 08/25/20 08/26/20 17:01 21:52 05:09 WBC 14.9 H RBC 3.11 L Hgb 8.9 L Hct 26.7 L MCH MCHC RDW 20.6 H Seg Neuts % (Manual) Lymphocytes % (Manual) Seg Neutrophils # Man Lymphocytes # (Manual) ABG pH POC ABG pCO2 POC ABG pO2 ABG Hemoglobin ABG Oxyhemoglobin ABG Glucose Potassium Carbon Dioxide BUN Glucose POC Glucose 158 H 175 H Calcium Alkaline Phosphatase Albumin Arterial Blood Glucose Arterial Blood Ionized Calcium 08/26/20 08/26/20 08/26/20 05:09 07:21 11:21 WBC RBC Hgb Hct MCH MCHC RDW Seg Neuts % (Manual) Lymphocytes % (Manual) Seg Neutrophils # Man Lymphocytes # (Manual) ABG pH POC ABG pCO2 POC ABG pO2 ABG Hemoglobin ABG Oxyhemoglobin ABG Glucose Potassium Carbon Dioxide 31 H BUN 21 H Glucose 183 H POC Glucose 149 H 145 H Calcium 7.0 L Alkaline Phosphatase Albumin Arterial Blood Glucose Arterial Blood Ionized Calcium 08/26/20 08/26/20 08/27/20 16:49 21:19 04:41 WBC 11.5 H RBC 2.93 L Hgb 8.0 L Hct 25.2 L MCH 27 L MCHC RDW 21.0 H Seg Neuts % (Manual) Lymphocytes % (Manual) Seg Neutrophils # Man Lymphocytes # (Manual) ABG pH POC ABG pCO2 POC ABG pO2 ABG Hemoglobin ABG Oxyhemoglobin ABG Glucose Potassium Carbon Dioxide BUN Glucose POC Glucose 177 H 144 H Calcium Alkaline Phosphatase Albumin Arterial Blood Glucose Arterial Blood Ionized Calcium 08/27/20 08/27/20 08/27/20 04:41 07:25 07:30 WBC RBC Hgb Hct MCH MCHC RDW Seg Neuts % (Manual) Lymphocytes % (Manual) Seg Neutrophils # Man Lymphocytes # (Manual) ABG pH POC ABG pCO2 POC ABG pO2 ABG Hemoglobin ABG Oxyhemoglobin ABG Glucose Potassium Carbon Dioxide 35 H BUN 24 H Glucose 173 H POC Glucose 153 H 143 H Calcium 7.3 L Alkaline Phosphatase Albumin Arterial Blood Glucose Arterial Blood Ionized Calcium 08/27/20 08/27/20 08/27/20 11:27 15:49 21:17 WBC RBC Hgb Hct MCH MCHC RDW Seg Neuts % (Manual) Lymphocytes % (Manual) Seg Neutrophils # Man Lymphocytes # (Manual) ABG pH POC ABG pCO2 POC ABG pO2 ABG Hemoglobin ABG Oxyhemoglobin ABG Glucose Potassium Carbon Dioxide BUN Glucose POC Glucose 236 H 184 H 144 H Calcium Alkaline Phosphatase Albumin Arterial Blood Glucose Arterial Blood Ionized Calcium 08/28/20 08/28/20 08/28/20 05:55 05:55 07:25 WBC RBC 2.58 L Hgb 7.6 L Hct 22.1 L MCH MCHC 35 H RDW 20.3 H Seg Neuts % (Manual) Lymphocytes % (Manual) Seg Neutrophils # Man Lymphocytes # (Manual) ABG pH POC ABG pCO2 POC ABG pO2 ABG Hemoglobin ABG Oxyhemoglobin ABG Glucose Potassium 3.5 L Carbon Dioxide BUN 33 H Glucose 183 H POC Glucose 164 H Calcium 6.8 L Alkaline Phosphatase Albumin Arterial Blood Glucose Arterial Blood Ionized Calcium 08/28/20 08/28/20 08/28/20 11:00 12:06 15:28 WBC RBC Hgb Hct MCH MCHC RDW Seg Neuts % (Manual) Lymphocytes % (Manual) Seg Neutrophils # Man Lymphocytes # (Manual) ABG pH 7.316 L POC ABG pCO2 68.0 H POC ABG pO2 75.4 L ABG Hemoglobin 8.3 L ABG Oxyhemoglobin 92.5 L ABG Glucose 302 H Potassium Carbon Dioxide BUN Glucose POC Glucose 233 H 146 H Calcium Alkaline Phosphatase Albumin Arterial Blood Glucose 302 H Arterial Blood Ionized Calcium 3.8 L 08/28/20 08/29/20 08/29/20 21:34 07:26 12:05 WBC RBC Hgb Hct MCH MCHC RDW Seg Neuts % (Manual) Lymphocytes % (Manual) Seg Neutrophils # Man Lymphocytes # (Manual) ABG pH POC ABG pCO2 POC ABG pO2 ABG Hemoglobin ABG Oxyhemoglobin ABG Glucose Potassium Carbon Dioxide BUN Glucose POC Glucose 201 H 167 H 253 H Calcium Alkaline Phosphatase Albumin Arterial Blood Glucose Arterial Blood Ionized Calcium 08/29/20 08/29/20 08/30/20 16:32 21:56 07:53 WBC RBC Hgb Hct MCH MCHC RDW Seg Neuts % (Manual) Lymphocytes % (Manual) Seg Neutrophils # Man Lymphocytes # (Manual) ABG pH POC ABG pCO2 POC ABG pO2 ABG Hemoglobin ABG Oxyhemoglobin ABG Glucose Potassium Carbon Dioxide BUN Glucose POC Glucose 128 H 220 H 286 H Calcium Alkaline Phosphatase Albumin Arterial Blood Glucose Arterial Blood Ionized Calcium 08/30/20 08/30/20 08/30/20 11:29 17:32 22:03 WBC RBC Hgb Hct MCH MCHC RDW Seg Neuts % (Manual) Lymphocytes % (Manual) Seg Neutrophils # Man Lymphocytes # (Manual) ABG pH POC ABG pCO2 POC ABG pO2 ABG Hemoglobin ABG Oxyhemoglobin ABG Glucose Potassium Carbon Dioxide BUN Glucose POC Glucose 299 H 260 H 196 H Calcium Alkaline Phosphatase Albumin Arterial Blood Glucose Arterial Blood Ionized Calcium 08/31/20 08/31/20 08/31/20 07:41 11:26 16:19 WBC RBC Hgb Hct MCH MCHC RDW Seg Neuts % (Manual) Lymphocytes % (Manual) Seg Neutrophils # Man Lymphocytes # (Manual) ABG pH POC ABG pCO2 POC ABG pO2 ABG Hemoglobin ABG Oxyhemoglobin ABG Glucose Potassium Carbon Dioxide BUN Glucose POC Glucose 166 H 269 H 265 H Calcium Alkaline Phosphatase Albumin Arterial Blood Glucose Arterial Blood Ionized Calcium 08/31/20 09/01/20 20:44 07:40 WBC RBC Hgb Hct MCH MCHC RDW Seg Neuts % (Manual) Lymphocytes % (Manual) Seg Neutrophils # Man Lymphocytes # (Manual) ABG pH POC ABG pCO2 POC ABG pO2 ABG Hemoglobin ABG Oxyhemoglobin ABG Glucose Potassium Carbon Dioxide BUN Glucose POC Glucose 243 H 272 H Calcium Alkaline Phosphatase Albumin Arterial Blood Glucose Arterial Blood Ionized Calcium Chest x-ray: image reviewed Allied health notes reviewed: RT
[2020-09-01] MEDS: dilTIAZem CD 240 MG CAP PO SCH (09:26)
[2020-09-01] MEDS: FERROUS SULFATE 325 MG TAB PO SCH (09:28)
[2020-09-01] MEDS: PANTOPRAZOLE 40 MG TAB PO SCH (09:28)
[2020-09-01] MEDS: CALCIUM CARBONATE 500 MG TAB CHEW PO SCH (09:28)
[2020-09-01] MEDS: ASPIRIN EC 81 MG TAB PO SCH (09:28)
[2020-09-01] MEDS: POLYETHYLENE GLYCOL 3350 17 GM POWDER PO SCH (11:30)
--- NOTE | 2020-09-01 14:24 | Progress Note ---
Assessment and Plan Assessment and plan: Patient continues to require intermittent BiPAP especially in the nights Today on 4 L of nasal cannula oxygen., Patient has home oxygen at 3 L nasal cannula oxygen --Acute exacerbation of COPD ; Patient is a current smoker Continue aggressive neb treatments with budesonide , arformoterol and DuoNeb solutions Continue empiric antibiotic, oxygen titrate O2 sats to more than 90% BiPAP as needed, home O2 evaluation at discharge pulmonary following Solu-Medrol increased to 60 mg every 6 hours --Acute hypoxic respiratory failure ; requiring BiPAP Continue oxygen via nasal cannula Titrate O2 sats more than 90%, BiPAP as needed Home O2 evaluation prior to discharge --Leukocytosis-improved Suspect secondary to steroids As well as bronchitis/pneumonitis Continue bronchodilators, empiric antibiotics, tapering steroids --Hypertension; moderate control Continue current antihypertensives, as needed medications --Normocytic anemia Hemoglobin is down to 8.0 > 7.6 this morning Closely monitor H&H transfuse as needed --Hypokalemia; Replenished, follow electrolytes --Hyperglycemia -likely secondary to steroids HD A1c 5.8, Accu-Chek sliding scale coverage Long-acting insulin if needed --Ongoing tobacco abuse Patient counseled on tobacco cessation Nicotine patch as needed --history of HIV infection for many years Patient follow-up private ID/health department upon discharge --Mild to moderate malnutrition/hypoalbuminemia Nutrition supplements and supportive care --DVT prophylaxis; Heparin subcu/SCDs Physical therapy/Occupational Therapy evaluation and treatment DC planning per case management Possible SNF placement. We will closely monitor the patient and adjust the management as needed Possible discharge in 1 to 2 days if stable and cleared by pulmonary Plan of care reviewed with the patient and his nurse I also discussed with parts casting machine operator Dr. Rahman and the case management Daily Hospital course; 08/29; patient requiring BiPAP, severely short of breath, pulmonary following; Wean as tolerated ; requiring intermittent BiPAP especially at night This morning patient is on 4 L of nasal cannula oxygen Patient already has home oxygen at 3 L Pulmonary following 08/31/2020; patient continues to be in shortness of breath Unable to keep his oxygen, confused at times BiPAP as needed, pulmonary following Recommend placement SNF, Check for mccracken PCR PT OT evaluation 09/01/2020; on 4 L of nasal oxygen Awaiting placement History Interval history: Seen and examined the patient at the bedside this morning during morning rounds Patient's chart and medications reviewed Patient continues to have shortness of breath on nasal cannula oxygen Awaiting placement Patient denies any chest pain or chronic shortness of breath Vital signs reviewed Vital signs reviewed Hospitalist Physical - Constitutional Vitals: Temp Pulse Resp BP Pulse Ox 97.8 F 132 H 22 103/76 94 09/01/20 04:20 09/01/20 12:05 09/01/20 12:05 09/01/20 09:26 09/01/20 10:00 General appearance: Present: mild distress, cachectic, disheveled, other (Intermittent BiPAP and nasal cannula oxygen) - EENT Eyes: Present: PERRL, EOM intact - Neck Neck: Present: supple, normal ROM - Respiratory Respiratory effort: normal Respiratory: bilateral: diminished, rales, negative: rhonchi, wheezing - Cardiovascular Rhythm: regular Heart Sounds: Present: S1 & S2 - Extremities Extremities: no ischemia, No edema - Abdominal General gastrointestinal: soft, non-tender, non-distended, normal bowel sounds - Integumentary Integumentary: Present: clear, warm - Psychiatric Psychiatric: appropriate mood/affect, cooperative - Neurologic Neurologic: CNII-XII intact, moves all extremities HEART Score - HEART Score Troponin: Troponin T < 0.010 ng/mL (0.00-0.029) 08/24/20 19:29 Results - Labs CBC & Chem 7: 08/28/20 05:55 08/28/20 05:55 Labs: Laboratory Last Values WBC 7.8 K/mm3 (4.5-11.0) 08/28/20 05:55 RBC 2.58 M/mm3 (3.65-5.03) L 08/28/20 05:55 Hgb 7.6 gm/dl (11.8-15.2) L 08/28/20 05:55 Hct 22.1 % (35.5-45.6) L 08/28/20 05:55 MCV 85 fl (84-94) 08/28/20 05:55 MCH 30 pg (28-32) 08/28/20 05:55 MCHC 35 % (32-34) H 08/28/20 05:55 RDW 20.3 % (13.2-15.2) H 08/28/20 05:55 Plt Count 165 K/mm3 (140-440) 08/28/20 05:55 Add Manual Diff Complete 08/25/20 07:21 Total Counted 100 08/25/20 07:21 Seg Neutrophils % E [employer] Project Manager 08/25/20 07:21 Seg Neuts % (Manual) 96.0 % (40.0-70.0) H 08/25/20 07:21 Lymphocytes % (Manual) 3.0 % (13.4-35.0) L 08/25/20 07:21 Monocytes % (Manual) 2.0 % (0.0-7.3) 08/24/20 19:29 Myelocytes % 1.0 % 08/25/20 07: Nucleated RBC % Not Reportable 08/25/20 07:21 Seg Neutrophils # Man 4.8 K/mm3 (1.8-7.7) 08/25/20 07:21 Band Neutrophils # 0.0 K/mm3 08/25/20 07:21 Lymphocytes # (Manual) 0.2 K/mm3 (1.2-5.4) L 08/25/20 07:21 Abs React Lymphs (Man) 0.0 K/mm3 08/25/20 07:21 Monocytes # (Manual) 0.0 K/mm3 (0.0-0.8) 08/25/20 07:21 Eosinophils # (Manual) 0.0 K/mm3 (0.0-0.4) 08/25/20 07:21 Basophils # (Manual) 0.0 K/mm3 (0.0-0.1) 08/25/20 07:21 Metamyelocytes # 0.0 K/mm3 08/25/20 07:21 Myelocytes # 0.1 K/mm3 08/25/20 07:21 Promyelocytes # 0.0 K/mm3 08/25/20 07:21 Blast Cells # 0.0 K/mm3 08/25/20 07:21 WBC Morphology Not Reportable 08/25/20 07:21 Hypersegmented Neuts Not Reportable 08/25/20 07:21 Hyposegmented Neuts Not Reportable 08/25/20 07:21 Hypogranular Neuts Not Reportable 08/25/20 07:21 Smudge Cells Not Reportable 08/25/20 07:21 Toxic Granulation Not Reportable 08/25/20 07:21 Toxic Vacuolation Not Reportable 08/25/20 07:21 Dohle Bodies Not Reportable 08/25/20 07:21 Pelger-Huet Anomaly Not Reportable 08/25/20 07:21 Ruma Rods Not Reportable 08/25/20 07:21 Platelet Estimate Consistent w auto 08/25/20 07:21 Clumped Platelets Not Reportable 08/25/20 07:21 Plt Clumps, EDTA Not Reportable 08/25/20 07:21 Large Platelets Not Reportable 08/25/20 07:21 Giant Platelets Not Reportable 08/25/20 07:21 Platelet Satelliting Not Reportable 08/25/20 07:21 Plt Morphology Comment Not Reportable 08/25/20 07:21 RBC Morphology Not Reportable 08/25/20 07:21 Dimorphic RBCs Not Reportable 08/25/20 07:21 Polychromasia Not Reportable 08/25/20 07:21 Hypochromasia 1+ 08/25/20 07:21 Poikilocytosis 1+ 08/25/20 07:21 Anisocytosis 1+ 08/25/20 07:21 Microcytosis Not Reportable 08/25/20 07:21 Macrocytosis Not Reportable 08/25/20 07:21 Spherocytes Not Reportable 08/25/20 07:21 Pappenheimer Bodies Not Reportable 08/25/20 07:21 Sickle Cells Not Reportable 08/25/20 07:21 Target Cells Not Reportable 08/25/20 07:21 Tear Drop Cells Not Reportable 08/25/20 07:21 Ovalocytes 1+ 08/25/20 07:21 Helmet Cells Not Reportable 08/25/20 07:21 [place] Bodies Not Reportable 08/25/20 07:21 [place] Rings Not Reportable 08/25/20 07:21 Roberts Cells Not Reportable 08/25/20 07:21 Bite Cells Not Reportable 08/25/20 07:21 Crenated Cell Not Reportable 08/25/20 07:21 Elliptocytes 2+ 08/25/20 07:21 Acanthocytes (Spur) 1+ 08/25/20 07:21 Rouleaux Not Reportable 08/25/20 07:21 Hemoglobin C Crystals Not Reportable 08/25/20 07:21 Schistocytes Not Reportable 08/25/20 07:21 Malaria parasites Not Reportable 08/25/20 07:21 Ric Bodies Not Reportable 08/25/20 07:21 Hem Pathologist Commnt No 08/25/20 07:21 ABG pH 7.316 (7.320-7.450) L 08/28/20 11:00 POC ABG pCO2 68.0 mmHg (32.0-48.0) H 08/28/20 11:00 POC ABG pO2 75.4 mmHg (83-108) L 08/28/20 11:00 POC ABG HCO3 33.9 08/28/20 11:00 ABG O2 Saturation 93.6 (0-100) 08/28/20 11:00 POC ABG Base Excess 6.6 08/28/20 11:00 ABG Hemoglobin 8.3 (12.0-17.5) L 08/28/20 11:00 ABG Oxyhemoglobin 92.5 (94-98) L 08/28/20 11:00 ABG Methemoglobin 0.3 (0.0-1.5) 08/28/20 11:00 ABG Sodium 143.2 mmol/L (136.0-145.0) 08/28/20 11:00 ABG Potassium 3.8 mmol/L (3.40-4.50) 08/28/20 11:00 ABG Chloride 103.0 mmol/L (98-107) 08/28/20 11:00 ABG Glucose 302 mg/dL (65-95) H 08/28/20 11:00 Carboxyhemoglobin 0.9 (0.5-1.5) 08/28/20 11:00 FiO2 % 40.0 08/28/20 11:00 Sodium 144 mmol/L (137-145) 08/28/20 05:55 Potassium 3.5 mmol/L (3.6-5.0) L 08/28/20 05:55 Chloride 103.3 mmol/L (98-107) 08/28/20 05:55 Carbon Dioxide 29 mmol/L (22-30) 08/28/20 05:55 Anion Gap 15 mmol/L 08/28/20 05:55 BUN 33 mg/dL (9-20) H 08/28/20 05:55 Creatinine 1.2 mg/dL (0.8-1.3) 08/28/20 05:55 Estimated GFR > 60 ml/min 08/28/20 05:55 BUN/Creatinine Ratio 28 % 08/28/20 05:55 Glucose 183 mg/dL (75-100) H 08/28/20 05:55 POC Glucose 320 mg/dL (70-105) H 09/01/20 11:39 Hemoglobin A1c 5.8 % (4-6) 08/25/20 07:27 Calcium 6.8 mg/dL (8.4-10.2) L 08/28/20 05:55 Total Bilirubin 0.40 mg/dL (0.1-1.2) 08/24/20 19:29 AST 21 units/L (5-40) 08/24/20 19:29 ALT 36 units/L (7-56) 08/24/20 19:29 Alkaline Phosphatase 154 units/L (35-129) H 08/24/20 19:29 Troponin T < 0.010 ng/mL (0.00-0.029) 08/24/20 19:29 Total Protein 6.5 g/dL (6.3-8.2) 08/24/20 19:29 Albumin 3.4 g/dL (3.9-5) L 08/24/20 19:29 Albumin/Globulin Ratio 1.1 % 08/24/20 19:29 Arterial Blood Glucose 302 mg/dL (65-95) H 08/28/20 11:00 Arterial Blood Ionized Calcium 3.8 mg/dL (4.6-5.3) L 08/28/20 11:00 [place]/IV: Voiding Method Toilet Active Medications - Current Medications Current Medications: Generic Name Dose Route Start Last Admin Trade Name Freq PRN Reason Stop Dose Admin Acetaminophen 650 mg 08/24/20 22:12 Acetaminophen 325 Mg Tab PO Q4H PRN Pain MILD(1-3)/Fever >100.5/KOENIG Albuterol/Ipratropium 1 ampul 08/29/20 20:00 09/01/20 11:53 Ipratropium/Albuterol Sulfate 3 Ml Ampul.Neb IH 1 ampul Q4HRT NADIA Administration Alprazolam 0.25 mg 08/30/20 11:30 09/01/20 05:05 Alprazolam 0.25 Mg Tab PO 0.25 mg Q8H PRN Administration Anxiety Arformoterol Tartrate 15 mcg 08/25/20 20:00 09/01/20 08:23 Arformoterol 15 Mcg/2 Ml Nebu IH 15 mcg Q12HRT NADIA Administration Aspirin 81 mg 08/25/20 10:00 09/01/20 09:28 Aspirin Ec 81 Mg Tab PO 81 mg QDAY NADIA Administration Atorvastatin Calcium 40 mg 08/25/20 22:00 08/31/20 22:45 Atorvastatin 40 Mg Tab PO 40 mg QHS NADIA Administration Budesonide 0.5 mg 08/25/20 08:00 09/01/20 08:23 Budesonide 0.5 Mg/2 Ml Nebu IH 0.5 mg Q12HRT NADIA Administration Calcium Carbonate/Glycine 500 mg 08/25/20 10:00 09/01/20 09:28 Calcium Carbonate 500 Mg Tab Chew PO 500 mg QDAY NADIA Administration Diltiazem HCl 240 mg 08/26/20 10:00 09/01/20 09:26 Diltiazem Cd 240 Mg Cap PO 240 mg QDAY NADIA Administration Docusate Sodium 100 mg 08/24/20 22:23 Docusate Sodium 100 Mg Cap PO BID PRN Constip unreliev by MOM/or NPO Ferrous Sulfate 325 mg 08/25/20 10:00 09/01/20 09:28 Ferrous Sulfate 325 Mg Tab PO 325 mg QDAY NADIA Administration Guaifenesin 400 mg 08/29/20 13:00 08/30/20 05:33 Guaifenesin 200 Mg Tab PO 400 mg Q4HR PRN Administration Cough Heparin Sodium (Porcine) 5,000 unit 08/25/20 06:00 09/01/20 13:30 Heparin 5,000 Unit/1 Ml Vial SUB-Q 5,000 unit Q8HR NADIA Administration Hydralazine HCl 10 mg 08/24/20 22:14 08/31/20 13:40 Hydralazine 20 Mg/1 Ml Inj IV 10 mg Q6H PRN Administration SBP>/=160; DBP >/=100 Insulin Human Lispro 0 unit 08/25/20 22:00 08/31/20 22:45 Insulin Lispro 100 Unit/Ml SUB-Q 3 unit QHS NADIA Administration Protocol Methylprednisolone Sodium Succinate 60 mg 08/28/20 00:00 09/01/20 12:06 Methylprednisolone Sod Succinate 125 Mg/2 Ml Inj IV 60 mg Q6HR NADIA Administration Metoprolol Tartrate 25 mg 09/01/20 22:00 Metoprolol Tartrate 25 Mg Tab PO BID NADIA Mirtazapine 7.5 mg 08/25/20 22:00 08/31/20 22:45 Mirtazapine 15 Mg Tab PO 7.5 mg QHS NADIA Administration Montelukast Sodium 10 mg 08/25/20 22:00 08/31/20 22:49 Montelukast 10 Mg Tab PO 10 mg QHS NADIA Administration Ondansetron HCl 4 mg 08/24/20 22:12 Ondansetron 4 Mg/2 Ml Inj IV Q8H PRN Nausea And Vomiting Oxycodone/Acetaminophen 1 tab 08/24/20 22:23 08/30/20 17:07 Oxycodone /Acetaminophen 5-325mg Tab PO 1 tab BID PRN Administration Pain , Severe (7-10) Pantoprazole Sodium 40 mg 08/25/20 10:00 09/01/20 09:28 Pantoprazole 40 Mg Tab PO 40 mg QDAY NADIA Administration Polyethylene Glycol 17 gm 08/28/20 10:00 09/01/20 11:30 Polyethylene Glycol 3350 17 Gm Powder PO Not Given QDAY NADIA Sodium Chloride 10 ml 08/25/20 10:00 09/01/20 09:28 Sodium Chloride 0.9% 10 Ml Flush Syringe IV 10 ml BID NADIA Administration Sodium Chloride 10 ml 08/24/20 22:12 Sodium Chloride 0.9% 10 Ml Flush Syringe IV PRN PRN LINE FLUSH Tramadol HCl 50 mg 08/24/20 22:23 09/01/20 05:05 Tramadol 50 Mg Tab PO 50 mg Q6HR PRN Administration Pain, Moderate (4-6) Nutrition/Malnutrition Assess - Dietary Evaluation Nutrition/Malnutrition Findings: Nutrition Notes Start: 08/25/20 08:25 Freq: Status: Active Protocol: Document 09/01/20 12:19 SERGIO (Rec: 09/01/20 12:25 SERGIO [id number]) Nutrition Notes Need for Assessment generated from: LOS Initial or Follow up Assessment Current Diagnosis COPD,Hypertension,Respiratory Failure Other Pertinent Diagnosis HIV Current Diet Cardiac Labs/Tests POC BG 320 Pertinent Medications Solu Medrol Feosol Height 5 ft 5 in Weight 60.2 kg [place] Body Weight (kg) 61.81 BMI 22.1 Weight Status Appropriate Subjective/Other Information Screen for LOS. Pt reports decreased appetite for 2 weeks . He is unsure of UBW or weight loss. He is eating an average of 50% of meals. Burn Absent Trauma Absent Current % PO Fair (50-74%) Minimum of two criteria No Energy Intake (non-severe) <75% Estimated Energy Requirement >7 days #1 Nutrition Diagnosis Inadequate oral intake Etiology acute illness As Evidenced by Signs and Symptoms pt eating <50% of meals Is patient on ventilator? No Is Patient Ambulatory and/or Out of Bed Yes REE-([facility]-ambulatory/OOB) [ 1708.044 [id number]] Calculation Used for Recommendations [facility] Additional Notes Protein: (1-1.2g/kg) 60-72g Fluid: 1 ml/kcal Nutrition Intervention Change Diet Order: Add consistent CHO Add Supplement/Snack (indicate name/kcal Glucerna BID /protein ) Provides kCal: 440 Provides Protein (gm) 20 Goal #1 Meet at least 75% of protein and energy needs via PO and ONS intakes Anticipated Discharge Needs: Cardiac Follow-Up By: 09/04/20 Additional Comments FU for intakes and ONS tolerance
--- NOTE | 2020-09-01 14:32 | Event Note ---
Date: 09/01/20 Nurse reports that patient has tachycardia, patient is already on Cardizem. EKG revealed possible A. fib with rapid ventricular rate Patient has no symptoms, vital signs stable We will add low-dose metoprolol, check echo if not already done Cardiology consulted, discussed with SEAT COVER CUTTER. Defer need for chronic anticoagulation to cardiology. We will monitor the patient and adjust management as needed Plan of care reviewed with the patient and the nurse Cardiology evaluation noted, and appreciated started on amiodarone drip, transfer the patient to telemetry floor for close monitoring Did not indicate anticoagulation at this time due to severe anemia We will closely monitor the patient and adjust the management as needed Plan of care reviewed with the patient and his nurse I also discussed with cardiology .
--- NOTE | 2020-09-01 15:09 | Progress Note ---
Assessment and Plan A. fib with RVR in setting of severe chronic anemia * Echocardiogram (04/08/2020): LVEF is 60 to 65%. LV size is normal. LV SF is normal. RV SF is normal. LA, RA size is normal. Mild TR, RVSP 34 mmHg. * Optimize antihypertensive regimen in setting of chronic cocaine use: Discontinue metoprolol, initiate Coreg 12.5 mg p.o. twice daily. Discontinue diltiazem, initiate amiodarone drip 1 mg/min infusion with 150 mg IV loading dose. * No anticoagulation in setting of severe anemia due to high risk of bleeding Chest pain in setting of mild nonobstructive coronary artery disease * Last twelve-lead shows sinus rhythm with no acute ischemic changes. Troponin negative x1. We will continue to trend CE's * LHC done 09/15/2019 showed mild nonobstructive CAD (25% mid RCA), EF 55-60%. No plans for further ischemic evaluation Tobacco /cocaine use * Cessation encouraged We will follow This patient was seen in conjunction with Dr Hall who agrees with assessment and plan of care - Patient Problems (1) Chest pain Current Visit: Yes Status: Acute (2) Nonobstructive atherosclerosis of coronary artery Current Visit: Yes Status: Chronic (3) Paroxysmal atrial fibrillation Current Visit: Yes Status: Chronic (4) Hypertension Current Visit: Yes Status: Chronic Qualifiers: Hypertension type: essential hypertension Qualified Code(s): I10 - Essential (primary) hypertension (5) COPD (chronic obstructive pulmonary disease) Current Visit: Yes Status: Chronic Qualifiers: COPD type: unspecified COPD Qualified Code(s): J44.9 - Chronic obstructive pulmonary disease, unspecified (6) HIV (human immunodeficiency virus infection) Current Visit: Yes Status: Chronic Qualifiers: HIV symptom status: asymptomatic Qualified Code(s): Z21 - Asymptomatic human immunodeficiency virus [HIV] infection status (7) Anemia Current Visit: Yes Status: Chronic Qualifiers: Anemia type: unspecified type Qualified Code(s): D64.9 - Anemia, unspecified (8) History of pulmonary embolism Current Visit: Yes Status: Chronic (9) Tobacco use Current Visit: Yes Status: Chronic (10) Medical noncompliance Current Visit: Yes Status: Chronic (11) Cocaine use Current Visit: Yes Status: Chronic Subjective Date of service: 09/01/20 Principal diagnosis: Afib, Ac hypoxemic resp failure; AE-COPD; ANGELIC; HIV +ve; HTN; Cocaine Use Interval history: The pt is a 64-year-old male with a past medical history of transient atrial fibrillation (no systemic AC in the past secondary to brief duration of AFib, anemia and medical noncompliance), nonobstructive CAD, HTN, HIV with unknown CD4 count, COPD, tobacco use, chronic cocaine use, PE in the past. He has been seen by our practice on multiple prior hospitalizations. Patient presents to [facility] ER via EMS with complaint of shortness of breath, chest pain, worse with palpitation and deep breaths. Dyspnea and chest pain are exacerbated with exertion and resolves with rest. Patient admits ongoing crack cocaine use. Patient is admitted for acute exacerbation of COPD. Cardiology is consulted for atrial fibrillation with RVR starting today at 8 AM. Patient was previously in sinus rhythm. Telemetry reviewed shows A. fib 120s to 140s with no events. LHC done 09/15/2019 showed mild nonobstructive CAD (25% mid RCA), EF 55-60%. Stress MPI done 08/24/2019 was negative. tte done 03/2020 showed EF 60-65%, no significant abnormalities. Objective Last Vital Signs Temp 97.8 F 09/01/20 04:20 Pulse 132 H 09/01/20 12:05 Resp 22 09/01/20 12:05 BP 103/76 09/01/20 09:26 Pulse Ox 94 09/01/20 10:00 - Physical Examination General: No Apparent Distress HEENT: Positive: PERRL, Normocephaly, Mucus Membranes Moist Neck: Positive: neck supple, trachea midline Cardiac: Positive: irregularly irregular, S1/S2 Lungs: Positive: Normal Breath Sounds Neuro: Positive: Grossly Intact Abdomen: Positive: Unremarkable, Soft Skin: Negative: Rash, Wound Musculoskeletal: No Pain Extremities: Present: upper extr. pulses, lower extr. pulses. Absent: edema - Imaging and Cardiology Nuclear stress test: report reviewed (Stress MPI done 08/24/2019 was negative.) Echo: report reviewed (Echocardiogram (04/08/2020): LVEF is 60 to 65%. LV size is normal. LV SF is normal. RV SF is normal. LA, RA size is normal. Mild TR, RVSP 34 mmHg.) Cardiac cath: report reviewed (LHC (09/15/2019): Mild nonobstructive coronary artery disease. 25% mid RCA stenosis. Estimated EF 55 to 60%.) - Telemetry EKG Rhythm: Atrial Fibrillation - EKG Sinus rhythms and dysrhythmias: sinus rhythm
[2020-09-01] MEDS ORDERED: AMIODARONE 150 MG in DEXTROSE 5% IN WATER 97 ML IV ONE (16:30)
[2020-09-01] MEDS: INSULIN NPH/REGULAR 70/30 INJ SUB-Q SCH (16:56)
[2020-09-01] MEDS ORDERED: AMIODARONE 900 MG in DEXTROSE 5% IN WATER 482 ML IV SCH (17:00)
--- NOTE | 2020-09-01 18:03 | Consultation ---
History of Present Illness Consult date: 09/01/20 Requesting physician: KIMBERLY GUTIERREZ Consult reason: atrial fibrillation History of present illness: The pt is a 64-year-old male with a past medical history of transient atrial fibrillation (no systemic AC in the past secondary to brief duration of AFib, anemia and medical noncompliance), nonobstructive CAD, HTN, HIV with unknown CD4 count, COPD, tobacco use, chronic cocaine use, PE in the past. He has been seen by our practice on multiple prior hospitalizations. Patient presents to [facility] ER via EMS with complaint of shortness of breath, chest pain, worse with palpitation and deep breaths. Dyspnea and chest pain are exacerbated with exertion and resolves with rest. Patient admits ongoing crack cocaine use. Patient is admitted for acute exacerbation of COPD. Cardiology is consulted for atrial fibrillation with RVR starting today at 8 AM. Patient was previously in sinus rhythm. Telemetry reviewed shows A. fib 120s to 140s with no events. LHC done 09/15/2019 showed mild nonobstructive CAD (25% mid RCA), EF 55-60%. Stress MPI done 08/24/2019 was negative. tte done 03/2020 showed EF 60-65%, no significant abnormalities. Past History Past Medical History: COPD, hypertension, hyperlipidemia, other (Pulmonary embolism, HIV) Medications and Allergies Allergies Allergy/AdvReac Type Severity Reaction Status Date / Time No Known Allergies Allergy Verified 05/15/20 09:18 Home Medications Medication Instructions Recorded Confirmed Last Taken Type AtorvaSTATin [Lipitor] 40 mg PO QHS tablet 04/11/20 08/25/20 08/24/20 Rx Docusate Sodium [Colace CAP] 100 mg PO BID PRN #60 capsule 04/27/20 08/25/20 08/24/20 Rx Calcium Carbonate [Calcium 400 mg PO QDAY 30 Days #30 tab.chew 05/13/20 08/25/20 08/24/20 Rx Carbonate 400MG CHEW] Ferrous Sulfate [Feosol 325 MG tab] 325 mg PO QDAY 60 Days #60 tablet 05/13/20 08/25/20 08/24/20 Rx Pantoprazole [Protonix TAB] 40 mg PO QDAY 30 Days #30 tablet 05/13/20 08/25/20 08/24/20 Rx Aspirin EC [Halfprin EC] 81 mg PO QDAY #100 tablet. 05/15/20 08/25/20 08/24/20 Rx dilTIAZem CD [Cardizem CD] 240 mg PO QDAY #30 capsule 05/15/20 08/25/20 08/24/20 Rx Ipratropium/Albuterol Sulfate 1 ampul IH TIDRT #50 ampul.neb 05/16/20 08/25/20 08/24/20 Rx [DUONEB *Not for PRN Use*] guaiFENesin [Guaifenesin] 400 mg PO Q4H #20 tablet 05/24/20 08/25/20 08/24/20 Rx Acetaminophen [8 Hour 650 mg PO Q6HR PRN #20 tablet.er 05/31/20 08/25/20 08/24/20 Rx Acetaminophen] Montelukast [Singulair] 10 mg PO QHS #30 tablet 05/31/20 08/25/20 08/24/20 Rx Ibuprofen [Motrin 800 MG tab] 800 mg PO Q8HR PRN #20 tablet 06/17/20 08/25/20 08/24/20 Rx Albuterol Sulfate [Proventil Hfa] 6.7 gm IH QID PRN #1 hfa.aer.ad 07/10/20 08/25/20 08/24/20 Rx traMADoL [Ultram] 50 mg PO Q6HR PRN #10 tablet 07/10/20 08/25/20 08/24/20 Rx Albuterol Mdi (or & Nicu Only) 2 puff IH QID PRN #8.5 gram 07/13/20 08/25/20 08/24/20 Rx [ProAir HFA Inhaler] Prednisone [predniSONE 10 mg 10 mg PO .TAPER #1 tab.ds.pk 07/13/20 08/25/20 08/24/20 Rx (6-Day Pack, 21 Tabs)] oxyCODONE /ACETAMINOPHEN [Percocet 1 tab PO BID PRN #8 tablet 07/13/20 08/25/20 08/24/20 Rx 5/325] Active Meds: Active Medications Acetaminophen (Acetaminophen 325 Mg Tab) 650 mg PO Q4H PRN PRN Reason: Pain MILD(1-3)/Fever >100.5/KOENIG Albuterol/Ipratropium (Ipratropium/Albuterol Sulfate 3 Ml Ampul.Neb) 1 ampul IH QIDRT [facility] Alprazolam (Alprazolam 0.25 Mg Tab) 0.25 mg PO Q8H PRN PRN Reason: Anxiety Last Admin: 09/01/20 05:05 Dose: 0.25 mg Documented by: Arformoterol Tartrate (Arformoterol 15 Mcg/2 Ml Nebu) 15 mcg IH Q12HRT [facility] Last Admin: 09/01/20 08:23 Dose: 15 mcg Documented by: Aspirin (Aspirin Ec 81 Mg Tab) 81 mg PO QDAY [facility] Last Admin: 09/01/20 09:28 Dose: 81 mg Documented by: Atorvastatin Calcium (Atorvastatin 40 Mg Tab) 40 mg PO QHS [facility] Last Admin: 08/31/20 22:45 Dose: 40 mg Documented by: Budesonide (Budesonide 0.5 Mg/2 Ml Nebu) 0.5 mg IH Q12HRT [facility] Last Admin: 09/01/20 08:23 Dose: 0.5 mg Documented by: Calcium Carbonate/Glycine (Calcium Carbonate 500 Mg Tab Chew) 500 mg PO QDAY [facility] Last Admin: 09/01/20 09:28 Dose: 500 mg Documented by: Carvedilol (Carvedilol 12.5 Mg Tab) 12.5 mg PO BID [facility] Docusate Sodium (Docusate Sodium 100 Mg Cap) 100 mg PO BID PRN PRN Reason: Constip unreliev by MOM/or NPO Ferrous Sulfate (Ferrous Sulfate 325 Mg Tab) 325 mg PO QDAY [facility] Last Admin: 09/01/20 09:28 Dose: 325 mg Documented by: Guaifenesin (Guaifenesin 200 Mg Tab) 400 mg PO Q4HR PRN PRN Reason: Cough Last Admin: 08/30/20 05:33 Dose: 400 mg Documented by: Heparin Sodium (Porcine) (Heparin 5,000 Unit/1 Ml Vial) 5,000 unit SUB-Q Q8HR [facility] Last Admin: 09/01/20 13:30 Dose: 5,000 unit Documented by: Hydralazine HCl (Hydralazine 20 Mg/1 Ml Inj) 10 mg IV Q6H PRN PRN Reason: SBP>/=160; DBP >/=100 Last Admin: 08/31/20 13:40 Dose: 10 mg Documented by: Amiodarone HCl 900 mg/ (Dextrose) 500 mls @ 33.333 mls/hr IV DIRECT [facility]; Protocol Last Admin: 09/01/20 16:53 Dose: 1 mg/min, 33.333 mls/hr Documented by: Insulin Human Isoph/Insulin Regular (Insulin Nph/Regular 70/30 Inj) 10 unit SUB-Q BIDDIAB [facility] Last Admin: 09/01/20 16:56 Dose: 10 unit Documented by: Insulin Human Lispro (Insulin Lispro 100 Unit/Ml) 0 unit SUB-Q QHS [facility]; Protocol Last Admin: 08/31/20 22:45 Dose: 3 unit Documented by: Levalbuterol HCl (Levalbuterol 0.63 Mg/3 Ml Nebu) 0.63 mg IH Q8HRT [facility] Methylprednisolone Sodium Succinate (Methylprednisolone Sod Succinate 125 Mg/2 Ml Inj) 60 mg IV Q6HR [facility] Last Admin: 09/01/20 17:00 Dose: 60 mg Documented by: Mirtazapine (Mirtazapine 15 Mg Tab) 7.5 mg PO QHS [facility] Last Admin: 08/31/20 22:45 Dose: 7.5 mg Documented by: Montelukast Sodium (Montelukast 10 Mg Tab) 10 mg PO QHS [facility] Last Admin: 08/31/20 22:49 Dose: 10 mg Documented by: Ondansetron HCl (Ondansetron 4 Mg/2 Ml Inj) 4 mg IV Q8H PRN PRN Reason: Nausea And Vomiting Oxycodone/Acetaminophen (Oxycodone /Acetaminophen 5-325mg Tab) 1 tab PO BID PRN PRN Reason: Pain , Severe (7-10) Last Admin: 08/30/20 17:07 Dose: 1 tab Documented by: Pantoprazole Sodium (Pantoprazole 40 Mg Tab) 40 mg PO QDAY [facility] Last Admin: 09/01/20 09:28 Dose: 40 mg Documented by: Polyethylene Glycol (Polyethylene Glycol 3350 17 Gm Powder) 17 gm PO QDAY [facility] Last Admin: 09/01/20 11:30 Dose: Not Given Documented by: Sodium Chloride (Sodium Chloride 0.9% 10 Ml Flush Syringe) 10 ml IV BID [facility] Last Admin: 09/01/20 09:28 Dose: 10 ml Documented by: Sodium Chloride (Sodium Chloride 0.9% 10 Ml Flush Syringe) 10 ml IV PRN PRN PRN Reason: LINE FLUSH Tramadol HCl (Tramadol 50 Mg Tab) 50 mg PO Q6HR PRN PRN Reason: Pain, Moderate (4-6) Last Admin: 09/01/20 05:05 Dose: 50 mg Documented by: Review of Systems Constitutional: chills, sweats, no weight loss, no weight gain, no fever, no night sweats Ears, nose, mouth and throat: no ear pain, no ear discharge, no nose pain, no nasal congestion, no nasal discharge Cardiovascular: chest pain, palpitations, rapid/irregular heart beat, no orthopnea, no edema, no syncope Respiratory: no cough, no cough with sputum, no hemoptysis, no shortness of breath, no dyspnea on exertion Gastrointestinal: no abdominal pain, no nausea, no vomiting, no diarrhea Genitourinary Male: no flank pain Musculoskeletal: no neck stiffness, no neck pain, no shooting arm pain, no arm numbness/tingling, no low back pain, no shooting leg pain Integumentary: no rash, no pruritis, no redness, no sores, no wounds Neurological: no head injury, no paralysis, no weakness, no parathesias, no numbness, no tingling, no seizures, no syncope Psychiatric: no anxiety Endocrine: no cold intolerance, no heat intolerance Hematologic/Lymphatic: no easy bruising, no easy bleeding Allergic/Immunologic: no urticaria Physical Examination Last Vital Signs Temp 97.8 F 09/01/20 04:20 Pulse 126 H 09/01/20 16:40 Resp 24 09/01/20 15:00 BP 120/76 09/01/20 16:40 Pulse Ox 96 09/01/20 17:36 General appearance: mild distress HEENT: Positive: PERRL, Normocephaly, Mucus Membranes Moist Neck: Positive: neck supple, trachea midline Cardiac: Positive: Reg Rate and Rhythm Lungs: Positive: Normal Exam, Normal Breath Sounds Neuro: Positive: Grossly Intact Abdomen: Positive: Unremarkable, Soft Skin: Negative: Rash, Wound Extremities: Present: upper extr. pulses, lower extr. pulses. Absent: edema Results 08/28/20 05:55 08/28/20 05:55 - Imaging and Cardiology Echo: pending EKG: report reviewed, image reviewed EKG interpretations - Telemetry EKG Rhythm: Atrial Fibrillation - EKG Sinus rhythms and dysrhythmias: sinus rhythm Assessment and Plan A. fib with RVR in setting of severe chronic anemia * Echocardiogram (04/08/2020): LVEF is 60 to 65%. LV size is normal. LV SF is normal. RV SF is normal. LA, RA size is normal. Mild TR, RVSP 34 mmHg. * Optimize antihypertensive regimen in setting of chronic cocaine use: Discontinue metoprolol, initiate Coreg 12.5 mg p.o. twice daily. Discontinue diltiazem, initiate amiodarone drip 1 mg/min infusion with 150 mg IV loading dose. * No anticoagulation in setting of severe anemia due to high risk of bleeding Chest pain in setting of mild nonobstructive coronary artery disease * Last twelve-lead shows sinus rhythm with no acute ischemic changes. Troponin negative x1. We will continue to trend CE's * LHC done 09/15/2019 showed mild nonobstructive CAD (25% mid RCA), EF 55-60%. No plans for further ischemic evaluation Tobacco /cocaine use * Cessation encouraged We will follow This patient was seen in conjunction with Dr Hall who agrees with assessment and plan of care - Patient Problems (1) Chest pain Current Visit: Yes Status: Acute (2) Nonobstructive atherosclerosis of coronary artery Current Visit: Yes Status: Chronic (3) Paroxysmal atrial fibrillation Current Visit: Yes Status: Chronic (4) Hypertension Current Visit: Yes Status: Chronic Qualifiers: Hypertension type: essential hypertension Qualified Code(s): I10 - Essential (primary) hypertension (5) COPD (chronic obstructive pulmonary disease) Current Visit: Yes Status: Chronic Qualifiers: COPD type: unspecified COPD Qualified Code(s): J44.9 - Chronic obstructive pulmonary disease, unspecified (6) HIV (human immunodeficiency virus infection) Current Visit: Yes Status: Chronic Qualifiers: HIV symptom status: asymptomatic Qualified Code(s): Z21 - Asymptomatic human immunodeficiency virus [HIV] infection status (7) Anemia Current Visit: Yes Status: Chronic Qualifiers: Anemia type: unspecified type Qualified Code(s): D64.9 - Anemia, unspecified (8) History of pulmonary embolism Current Visit: Yes Status: Chronic (9) Tobacco use Current Visit: Yes Status: Chronic (10) Medical noncompliance Current Visit: Yes Status: Chronic (11) Cocaine use Current Visit: Yes Status: Chronic
[2020-09-01] MEDS: IPRATROPIUM 0.02% NEBU 2.5 ML IH SCH (19:30)
[2020-09-01] MEDS: LEVALBUTEROL 0.63 MG/3 ML NEBU IH SCH (19:31)
[2020-09-01] MEDS ORDERED: IPRATROPIUM/ALBUTEROL SULFATE 3 ML AMPUL.NEB IH SCH (20:00)
[2020-09-01] MEDS: MIRTAZAPINE 15 MG TAB PO SCH (21:36)
[2020-09-01] MEDS: carvediloL 12.5 MG TAB PO SCH (21:36)
[2020-09-01] MEDS: MONTELUKAST 10 MG TAB PO SCH (21:36)
[2020-09-01] MEDS ORDERED: METOPROLOL TARTRATE 25 MG TAB PO SCH (22:00)
[2020-09-01] MEDS: INSULIN LISPRO 100 UNIT/ML SUB-Q SCH (22:36)
[2020-09-02] MEDS: LEVALBUTEROL 0.63 MG/3 ML NEBU IH SCH ×3 (00:39→15:08)
[2020-09-02] MEDS: IPRATROPIUM 0.02% NEBU 2.5 ML IH SCH ×4 (00:39→15:08)
[2020-09-02] MEDS: methylPREDNISolone Sod Succinate 125 MG/2 ML INJ IV SCH ×4 (00:47→17:03)
[2020-09-02] MEDS: ALPRAZolam 0.25 MG TAB PO PRN (01:01)
[2020-09-02] MEDS ORDERED: SODIUM CHLORIDE 0.9% 250ML 250 ML IV ONE (05:38)
[2020-09-02] MEDS: HEPARIN 5,000 UNIT/1 ML VIAL SUB-Q SCH ×3 (06:23→21:55)
[2020-09-02] MEDS: BUDESONIDE 0.5 MG/2 ML NEBU IH SCH ×2 (07:31→20:45)
[2020-09-02] MEDS: ARFORMOTEROL 15 MCG/2 ML NEBU IH SCH ×2 (07:31→20:42)
--- NOTE | 2020-09-02 08:58 | Progress Note ---
Assessment and Plan Paroxysmal A. fib with RVR in setting of severe chronic anemia * Echocardiogram (04/08/2020): LVEF is 60 to 65%. LV size is normal. LV SF is normal. RV SF is normal. LA, RA size is normal. Mild TR, RVSP 34 mmHg. * A. fib converted at 2 AM overnight after administration of amiodarone loading dose and drip. Amiodarone was subsequently discontinued. Review of telemetry shows sinus rhythm with no events. * Optimize antihypertensive regimen: Reduce Coreg to 6.125 mg twice daily due to hypotension. Continue to monitor on telemetry * No anticoagulation in setting of severe anemia due to high risk of bleeding Chest pain in setting of mild nonobstructive coronary artery disease * Patient complaining of chest pain and dizziness this a.m. Repeat twelve-lead was performed showing normal sinus rhythm with no acute ischemic changes. Will repeat troponin. * LHC done 09/15/2019 showed mild nonobstructive CAD (25% mid RCA), EF 55-60%. N o plans for further ischemic evaluation Tobacco /cocaine use * Cessation encouraged [facility] We will follow This patient was seen in conjunction with Dr Hall who agrees with assessment and plan of care - Patient Problems (1) Chest pain Current Visit: Yes Status: Acute (2) Nonobstructive atherosclerosis of coronary artery Current Visit: Yes Status: Chronic (3) Paroxysmal atrial fibrillation Current Visit: Yes Status: Chronic (4) Hypertension Current Visit: Yes Status: Chronic Qualifiers: Hypertension type: essential hypertension Qualified Code(s): I10 - Essential (primary) hypertension (5) COPD (chronic obstructive pulmonary disease) Current Visit: Yes Status: Chronic Qualifiers: COPD type: unspecified COPD Qualified Code(s): J44.9 - Chronic obstructive pulmonary disease, unspecified (6) HIV (human immunodeficiency virus infection) Current Visit: Yes Status: Chronic Qualifiers: HIV symptom status: asymptomatic Qualified Code(s): Z21 - Asymptomatic human immunodeficiency virus [HIV] infection status (7) Anemia Current Visit: Yes Status: Chronic Qualifiers: Anemia type: unspecified type Qualified Code(s): D64.9 - Anemia, unspecified (8) History of pulmonary embolism Current Visit: Yes Status: Chronic (9) Tobacco use Current Visit: Yes Status: Chronic (10) Medical noncompliance Current Visit: Yes Status: Chronic (11) Cocaine use Current Visit: Yes Status: Chronic Subjective Date of service: 09/02/20 Principal diagnosis: Afib, Ac hypoxemic resp failure; AE-COPD; ANGELIC; HIV +ve; HTN; Cocaine Use Interval history: Patient resting in bed complaining of chest pain/dizziness. Telemetry reviewed: Sinus rhythm 70. Patient converted from A. fib RVR to sinus rhythm at 2 AM this morning. Objective Last Vital Signs Temp 97.2 F L 09/02/20 04:08 Pulse 67 09/02/20 07:41 Resp 16 09/02/20 04:08 BP 91/40 09/02/20 07:41 Pulse Ox 95 09/02/20 07:41 - Physical Examination General: No Apparent Distress HEENT: Positive: PERRL, Normocephaly, Mucus Membranes Moist Neck: Positive: neck supple, trachea midline Cardiac: Positive: Reg Rate and Rhythm, S1/S2 Lungs: Positive: Normal Exam, Normal Breath Sounds Neuro: Positive: Grossly Intact Abdomen: Positive: Unremarkable, Soft Skin: Negative: Rash, Wound Musculoskeletal: No Pain Extremities: Present: upper extr. pulses, lower extr. pulses. Absent: edema - Imaging and Cardiology EKG: report reviewed (Stat EKG performed this a.m. due to complaint of chest pain which was normal sinus rhythm with no acute ischemic changes.), image reviewed Echo: report reviewed (Echocardiogram (04/08/2020): LVEF is 60 to 65%. LV size is normal. LV SF is normal. RV SF is normal. LA, RA size is normal. Mild TR, RVSP 34 mmHg.) Cardiac cath: report reviewed ([facility] (09/15/2019): Mild nonobstructive coronary artery disease. 25% mid RCA stenosis. Estimated EF 55 to 60%.) - Telemetry EKG Rhythm: Sinus Rhythm - EKG Sinus rhythms and dysrhythmias: sinus rhythm
[2020-09-02] MEDS: ASPIRIN EC 81 MG TAB PO SCH (09:27)
[2020-09-02] MEDS: CALCIUM CARBONATE 500 MG TAB CHEW PO SCH (09:27)
[2020-09-02] MEDS: POLYETHYLENE GLYCOL 3350 17 GM POWDER PO SCH (09:27)
[2020-09-02] MEDS: INSULIN NPH/REGULAR 70/30 INJ SUB-Q SCH ×2 (09:28→16:23)
[2020-09-02] MEDS: carvediloL 12.5 MG TAB PO SCH (09:28)
[2020-09-02] MEDS: PANTOPRAZOLE 40 MG TAB PO SCH (09:29)
[2020-09-02] MEDS: FERROUS SULFATE 325 MG TAB PO SCH (09:29)
[2020-09-02] MEDS: oxyCODONE /ACETAMINOPHEN 5-325MG TAB PO PRN (09:31)
[2020-09-02] MEDS ORDERED: carvediloL 12.5 MG TAB PO SCH (12:02)
--- NOTE | 2020-09-02 12:46 | Progress Note ---
Assessment and Plan Acute hypoxemic respiratory failure Acute COPD exacerbation ANGELIC GERD (gastroesophageal reflux disease) HIV (human immunodeficiency virus infection) Hypertension Cocaine use Tobacco use disorder - continue to wean supplemental oxygen to keep O2 sats > 90% - continue Bronchodilators (HEIDI & LABA) with pulm hygiene per RT - continue systemic steroids with slow taper - continue inhaled corticosteroids - avoid nephrotoxins, renally dose all medications - continue mobility protocols to prevent pressure ulcers - PT/OT as tolerated - Wound care per RN/WCT - continue accuchecks with glycemic control per SSI for target blood glucose < 180 mg/dL - tobacco abstinence strongly counseled at the bedside - home oxygen evaluation at discharge - GI & VTE prophylaxis - Flu & pneumovax per protocol - Pulmonary out patient follow up for PFTs and optimization of respiratory status - continue other care per attending / other consultants - prn analgesia per pain score Subjective Date of service: 09/02/20 Principal diagnosis: Ac hypoxemic resp failure; AE-COPD; ANGELIC; HIV +ve; HTN; Cocaine Use Interval history: Patient is seen today for: Acute hypoxemic respiratory failure; AE-COPD; ANGELIC; HIV infection; HTN; Cocaine use; Tobacco use disorder Seen and examined at bedside; 24hour events reviewed; nursing and respiratory care staff consulted; no adverse overnight events reported to me; resting in bed in moderate tomasa distress, conversational dyspnea. Continue to smoke cigarettes, cocaine use. Endorses shortness of breath, no chest pain, poor sleep Objective Vital Signs - 12hr 09/02/20 09/02/20 09/02/20 01:15 04:08 07:30 Temperature 97.2 F L Pulse Rate 86 61 Respiratory 20 16 Rate Blood Pressure 75/40 O2 Sat by Pulse 95 99 98 Oximetry 09/02/20 09/02/20 09/02/20 07:31 07:41 09:19 Temperature Pulse Rate 67 74 Respiratory Rate Blood Pressure 91/40 109/72 O2 Sat by Pulse 98 95 97 Oximetry 09/02/20 09/02/20 09:28 11:05 Temperature 97.4 F L Pulse Rate 74 78 Respiratory 20 Rate Blood Pressure 109/72 118/75 O2 Sat by Pulse 97 Oximetry Constitutional: alert, appears uncomfortable, other (Slight increased work of breathing at rest,) Eyes: non-icteric ENT: oropharynx moist Neck: supple, no JVD Effort: mildly labored Ascultation: Bilateral: diminished breath sounds, wheezes, other (Prolonged expiratory phase.) Cardiovascular: other (tachycardia, S1,S2) Gastrointestinal: normoactive bowel sounds, soft, non-tender Integumentary: normal Extremities: no cyanosis, no edema Neurologic: normal mental status, non-focal exam, pupils equal and round Psychiatric: anxious, depressed CBC and BMP: 08/28/20 05:55 08/28/20 05:55 ABG, PT/INR, D-dimer: ABG ABG pH 7.316 (7.320-7.450) L 08/28/20 11:00 POC ABG pCO2 68.0 mmHg (32.0-48.0) H 08/28/20 11:00 POC ABG pO2 75.4 mmHg (83-108) L 08/28/20 11:00 POC ABG HCO3 33.9 08/28/20 11:00 ABG O2 Saturation 93.6 (0-100) 08/28/20 11:00 Abnormal lab findings: Abnormal Labs 08/24/20 08/24/20 08/25/20 19:29 19:29 07:00 WBC RBC 3.36 L Hgb 9.7 L Hct 28.5 L MCH MCHC RDW 20.6 H Seg Neuts % (Manual) 97.0 H Lymphocytes % (Manual) 1.0 L Seg Neutrophils # Man 10.2 H Lymphocytes # (Manual) 0.1 L ABG pH POC ABG pCO2 POC ABG pO2 ABG Hemoglobin ABG Oxyhemoglobin ABG Glucose Potassium 3.3 L Carbon Dioxide BUN Glucose 121 H POC Glucose 211 H Calcium 7.6 L Alkaline Phosphatase 154 H Albumin 3.4 L Arterial Blood Glucose Arterial Blood Ionized Calcium 08/25/20 08/25/20 08/25/20 07:21 07:21 12:06 WBC RBC 3.13 L Hgb 8.9 L Hct 26.5 L MCH MCHC RDW 20.6 H Seg Neuts % (Manual) 96.0 H Lymphocytes % (Manual) 3.0 L Seg Neutrophils # Man Lymphocytes # (Manual) 0.2 L ABG pH POC ABG pCO2 POC ABG pO2 ABG Hemoglobin ABG Oxyhemoglobin ABG Glucose Potassium Carbon Dioxide 31 H BUN Glucose 208 H POC Glucose 162 H Calcium 7.4 L Alkaline Phosphatase Albumin Arterial Blood Glucose Arterial Blood Ionized Calcium 08/25/20 08/25/20 08/26/20 17:01 21:52 05:09 WBC 14.9 H RBC 3.11 L Hgb 8.9 L Hct 26.7 L MCH MCHC RDW 20.6 H Seg Neuts % (Manual) Lymphocytes % (Manual) Seg Neutrophils # Man Lymphocytes # (Manual) ABG pH POC ABG pCO2 POC ABG pO2 ABG Hemoglobin ABG Oxyhemoglobin ABG Glucose Potassium Carbon Dioxide BUN Glucose POC Glucose 158 H 175 H Calcium Alkaline Phosphatase Albumin Arterial Blood Glucose Arterial Blood Ionized Calcium 08/26/20 08/26/20 08/26/20 05:09 07:21 11:21 WBC RBC Hgb Hct MCH MCHC RDW Seg Neuts % (Manual) Lymphocytes % (Manual) Seg Neutrophils # Man Lymphocytes # (Manual) ABG pH POC ABG pCO2 POC ABG pO2 ABG Hemoglobin ABG Oxyhemoglobin ABG Glucose Potassium Carbon Dioxide 31 H BUN 21 H Glucose 183 H POC Glucose 149 H 145 H Calcium 7.0 L Alkaline Phosphatase Albumin Arterial Blood Glucose Arterial Blood Ionized Calcium 08/26/20 08/26/20 08/27/20 16:49 21:19 04:41 WBC 11.5 H RBC 2.93 L Hgb 8.0 L Hct 25.2 L MCH 27 L MCHC RDW 21.0 H Seg Neuts % (Manual) Lymphocytes % (Manual) Seg Neutrophils # Man Lymphocytes # (Manual) ABG pH POC ABG pCO2 POC ABG pO2 ABG Hemoglobin ABG Oxyhemoglobin ABG Glucose Potassium Carbon Dioxide BUN Glucose POC Glucose 177 H 144 H Calcium Alkaline Phosphatase Albumin Arterial Blood Glucose Arterial Blood Ionized Calcium 08/27/20 08/27/20 08/27/20 04:41 07:25 07:30 WBC RBC Hgb Hct MCH MCHC RDW Seg Neuts % (Manual) Lymphocytes % (Manual) Seg Neutrophils # Man Lymphocytes # (Manual) ABG pH POC ABG pCO2 POC ABG pO2 ABG Hemoglobin ABG Oxyhemoglobin ABG Glucose Potassium Carbon Dioxide 35 H BUN 24 H Glucose 173 H POC Glucose 153 H 143 H Calcium 7.3 L Alkaline Phosphatase Albumin Arterial Blood Glucose Arterial Blood Ionized Calcium 08/27/20 08/27/20 08/27/20 11:27 15:49 21:17 WBC RBC Hgb Hct MCH MCHC RDW Seg Neuts % (Manual) Lymphocytes % (Manual) Seg Neutrophils # Man Lymphocytes # (Manual) ABG pH POC ABG pCO2 POC ABG pO2 ABG Hemoglobin ABG Oxyhemoglobin ABG Glucose Potassium Carbon Dioxide BUN Glucose POC Glucose 236 H 184 H 144 H Calcium Alkaline Phosphatase Albumin Arterial Blood Glucose Arterial Blood Ionized Calcium 08/28/20 08/28/20 08/28/20 05:55 05:55 07:25 WBC RBC 2.58 L Hgb 7.6 L Hct 22.1 L MCH MCHC 35 H RDW 20.3 H Seg Neuts % (Manual) Lymphocytes % (Manual) Seg Neutrophils # Man Lymphocytes # (Manual) ABG pH POC ABG pCO2 POC ABG pO2 ABG Hemoglobin ABG Oxyhemoglobin ABG Glucose Potassium 3.5 L Carbon Dioxide BUN 33 H Glucose 183 H POC Glucose 164 H Calcium 6.8 L Alkaline Phosphatase Albumin Arterial Blood Glucose Arterial Blood Ionized Calcium 08/28/20 08/28/20 08/28/20 11:00 12:06 15:28 WBC RBC Hgb Hct MCH MCHC RDW Seg Neuts % (Manual) Lymphocytes % (Manual) Seg Neutrophils # Man Lymphocytes # (Manual) ABG pH 7.316 L POC ABG pCO2 68.0 H POC ABG pO2 75.4 L ABG Hemoglobin 8.3 L ABG Oxyhemoglobin 92.5 L ABG Glucose 302 H Potassium Carbon Dioxide BUN Glucose POC Glucose 233 H 146 H Calcium Alkaline Phosphatase Albumin Arterial Blood Glucose 302 H Arterial Blood Ionized Calcium 3.8 L 08/28/20 08/29/20 08/29/20 21:34 07:26 12:05 WBC RBC Hgb Hct MCH MCHC RDW Seg Neuts % (Manual) Lymphocytes % (Manual) Seg Neutrophils # Man Lymphocytes # (Manual) ABG pH POC ABG pCO2 POC ABG pO2 ABG Hemoglobin ABG Oxyhemoglobin ABG Glucose Potassium Carbon Dioxide BUN Glucose POC Glucose 201 H 167 H 253 H Calcium Alkaline Phosphatase Albumin Arterial Blood Glucose Arterial Blood Ionized Calcium 08/29/20 08/29/20 08/30/20 16:32 21:56 07:53 WBC RBC Hgb Hct MCH MCHC RDW Seg Neuts % (Manual) Lymphocytes % (Manual) Seg Neutrophils # Man Lymphocytes # (Manual) ABG pH POC ABG pCO2 POC ABG pO2 ABG Hemoglobin ABG Oxyhemoglobin ABG Glucose Potassium Carbon Dioxide BUN Glucose POC Glucose 128 H 220 H 286 H Calcium Alkaline Phosphatase Albumin Arterial Blood Glucose Arterial Blood Ionized Calcium 08/30/20 08/30/20 08/30/20 11:29 17:32 22:03 WBC RBC Hgb Hct MCH MCHC RDW Seg Neuts % (Manual) Lymphocytes % (Manual) Seg Neutrophils # Man Lymphocytes # (Manual) ABG pH POC ABG pCO2 POC ABG pO2 ABG Hemoglobin ABG Oxyhemoglobin ABG Glucose Potassium Carbon Dioxide BUN Glucose POC Glucose 299 H 260 H 196 H Calcium Alkaline Phosphatase Albumin Arterial Blood Glucose Arterial Blood Ionized Calcium 08/31/20 08/31/20 08/31/20 07:41 11:26 16:19 WBC RBC Hgb Hct MCH MCHC RDW Seg Neuts % (Manual) Lymphocytes % (Manual) Seg Neutrophils # Man Lymphocytes # (Manual) ABG pH POC ABG pCO2 POC ABG pO2 ABG Hemoglobin ABG Oxyhemoglobin ABG Glucose Potassium Carbon Dioxide BUN Glucose POC Glucose 166 H 269 H 265 H Calcium Alkaline Phosphatase Albumin Arterial Blood Glucose Arterial Blood Ionized Calcium 08/31/20 09/01/20 09/01/20 20:44 07:40 11:39 WBC RBC Hgb Hct MCH MCHC RDW Seg Neuts % (Manual) Lymphocytes % (Manual) Seg Neutrophils # Man Lymphocytes # (Manual) ABG pH POC ABG pCO2 POC ABG pO2 ABG Hemoglobin ABG Oxyhemoglobin ABG Glucose Potassium Carbon Dioxide BUN Glucose POC Glucose 243 H 272 H 320 H Calcium Alkaline Phosphatase Albumin Arterial Blood Glucose Arterial Blood Ionized Calcium 09/01/20 09/01/20 09/02/20 16:16 21:59 08:32 WBC RBC Hgb Hct MCH MCHC RDW Seg Neuts % (Manual) Lymphocytes % (Manual) Seg Neutrophils # Man Lymphocytes # (Manual) ABG pH POC ABG pCO2 POC ABG pO2 ABG Hemoglobin ABG Oxyhemoglobin ABG Glucose Potassium Carbon Dioxide BUN Glucose POC Glucose 319 H 157 H 195 H Calcium Alkaline Phosphatase Albumin Arterial Blood Glucose Arterial Blood Ionized Calcium 09/02/20 11:44 WBC RBC Hgb Hct MCH MCHC RDW Seg Neuts % (Manual) Lymphocytes % (Manual) Seg Neutrophils # Man Lymphocytes # (Manual) ABG pH POC ABG pCO2 POC ABG pO2 ABG Hemoglobin ABG Oxyhemoglobin ABG Glucose Potassium Carbon Dioxide BUN Glucose POC Glucose 167 H Calcium Alkaline Phosphatase Albumin Arterial Blood Glucose Arterial Blood Ionized Calcium Allied health notes reviewed: RT
[2020-09-02] MEDS: MIRTAZAPINE 15 MG TAB PO SCH (21:54)
[2020-09-02] MEDS: carvediloL 6.25 MG TAB PO SCH (21:54)
[2020-09-02] MEDS: MONTELUKAST 10 MG TAB PO SCH (21:54)
[2020-09-02] MEDS: INSULIN LISPRO 100 UNIT/ML SUB-Q SCH (21:55)
[2020-09-03] MEDS: methylPREDNISolone Sod Succinate 125 MG/2 ML INJ IV SCH ×5 (00:02→23:16)
[2020-09-03] MEDS: HEPARIN 5,000 UNIT/1 ML VIAL SUB-Q SCH ×4 (05:27→21:48)
[2020-09-03 06:09] LABS: Hemoglobin 6.5 gm/dl (11.8-15.2); Mean Corpuscular HGB Conc 33 % (32-34); Mean Corpuscular Volume 87 fl (84-94); Platelet Count 178 K/mm3 (140-440); Red Blood Count 2.25 M/mm3 (3.65-5.03)
[2020-09-03 06:22] LABS: Hematocrit 19.7 % (35.5-45.6); Red Cell Distribution Width 21.3 % (13.2-15.2)
[2020-09-03 06:27] LABS: BUN/Creatinine Ratio 33
[2020-09-03] MEDS ORDERED: SODIUM CHLORIDE 0.9% 500 ML 500 ML IV ONE (06:39)
[2020-09-03 08:20] LABS: Blood Urea Nitrogen 30 mg/dL (9-20); Calcium 6.7 mg/dL (8.4-10.2); Hemolysis Index 4
[2020-09-03] MEDS: ARFORMOTEROL 15 MCG/2 ML NEBU IH SCH ×2 (09:53→20:19)
[2020-09-03] MEDS: BUDESONIDE 0.5 MG/2 ML NEBU IH SCH ×2 (09:53→20:19)
[2020-09-03] MEDS: ASPIRIN EC 81 MG TAB PO SCH (10:42)
[2020-09-03] MEDS: CALCIUM CARBONATE 500 MG TAB CHEW PO SCH (10:42)
[2020-09-03] MEDS: PANTOPRAZOLE 40 MG TAB PO SCH ×2 (10:42→10:44)
[2020-09-03] MEDS: carvediloL 6.25 MG TAB PO SCH ×3 (10:42→21:42)
[2020-09-03] MEDS: POLYETHYLENE GLYCOL 3350 17 GM POWDER PO SCH (10:43)
[2020-09-03] MEDS: INSULIN NPH/REGULAR 70/30 INJ SUB-Q SCH ×2 (10:43→18:11)
--- NOTE | 2020-09-03 10:43 | Gastroenterology Consultation ---
History of Present Illness - Reason for Consult Consult date: 09/03/20 Anemia Requesting physician: KIMBERLY GUTIERREZ - History of Present Illness The patient is a 64 yo male admitted with COPD/CHF exacerbation, due to medical noncompliance/cocaine use/out of medications. He was just discharged 06/2020 from [facility] for the same. We are consulted for acute on chronic anemia. He was seen for this at [facility] in 2019; a colonoscopy was negative, but the EGD showed a possible small AVM in the duodenum. He has had chronic anemia both before and after that. At his visit in June at [facility], he rec'd a unit of PRBC. He also states he had a colonoscopy 2 weeks ago at [place], but I have no records of that. He denies any acute GI blood loss in his stools in the last seven days since admit. Past History Past Medical History: COPD, HIV/AIDS, hypertension, hyperlipidemia, other (Pulmonary embolism, Medical noncompliance) Social history: smoking, other (Cocaine) Family history: no significant family history Medications and Allergies Allergies Allergy/AdvReac Type Severity Reaction Status Date / Time No Known Allergies Allergy Verified 05/15/20 09:18 Home Medications Medication Instructions Recorded Confirmed Last Taken Type AtorvaSTATin [Lipitor] 40 mg PO QHS tablet 04/11/20 08/25/20 08/24/20 Rx Docusate Sodium [Colace CAP] 100 mg PO BID PRN #60 capsule 04/27/20 08/25/20 08/24/20 Rx Calcium Carbonate [Calcium 400 mg PO QDAY 30 Days #30 tab.chew 05/13/20 08/25/20 08/24/20 Rx Carbonate 400MG CHEW] Ferrous Sulfate [Feosol 325 MG tab] 325 mg PO QDAY 60 Days #60 tablet 05/13/20 08/25/20 08/24/20 Rx Pantoprazole [Protonix TAB] 40 mg PO QDAY 30 Days #30 tablet 05/13/20 08/25/20 08/24/20 Rx Aspirin EC [Halfprin EC] 81 mg PO QDAY #100 tablet. 05/15/20 08/25/20 08/24/20 Rx dilTIAZem CD [Cardizem CD] 240 mg PO QDAY #30 capsule 05/15/20 08/25/20 08/24/20 Rx Ipratropium/Albuterol Sulfate 1 ampul IH TIDRT #50 ampul.neb 05/16/20 08/25/20 08/24/20 Rx [DUONEB *Not for PRN Use*] guaiFENesin [Guaifenesin] 400 mg PO Q4H #20 tablet 05/24/20 08/25/20 08/24/20 Rx Acetaminophen [8 Hour 650 mg PO Q6HR PRN #20 tablet.er 05/31/20 08/25/20 08/24/20 Rx Acetaminophen] Montelukast [Singulair] 10 mg PO QHS #30 tablet 05/31/20 08/25/20 08/24/20 Rx Ibuprofen [Motrin 800 MG tab] 800 mg PO Q8HR PRN #20 tablet 06/17/20 08/25/20 08/24/20 Rx Albuterol Sulfate [Proventil Hfa] 6.7 gm IH QID PRN #1 hfa.aer.ad 07/10/20 08/25/20 08/24/20 Rx traMADoL [Ultram] 50 mg PO Q6HR PRN #10 tablet 07/10/20 08/25/20 08/24/20 Rx Albuterol Mdi (or & Nicu Only) 2 puff IH QID PRN #8.5 gram 07/13/20 08/25/20 08/24/20 Rx [ProAir HFA Inhaler] Prednisone [predniSONE 10 mg 10 mg PO .TAPER #1 tab.ds.pk 07/13/20 08/25/20 08/24/20 Rx (6-Day Pack, 21 Tabs)] oxyCODONE /ACETAMINOPHEN [Percocet 1 tab PO BID PRN #8 tablet 07/13/20 08/25/20 08/24/20 Rx 5/325] Active Meds: Active Medications Acetaminophen (Acetaminophen 325 Mg Tab) 650 mg PO Q4H PRN PRN Reason: Pain MILD(1-3)/Fever >100.5/KOENIG Alprazolam (Alprazolam 0.25 Mg Tab) 0.25 mg PO Q8H PRN PRN Reason: Anxiety Last Admin: 09/02/20 01:01 Dose: 0.25 mg Documented by: Arformoterol Tartrate (Arformoterol 15 Mcg/2 Ml Nebu) 15 mcg IH Q12HRT [facility] Last Admin: 09/03/20 09:53 Dose: Not Given Documented by: Aspirin (Aspirin Ec 81 Mg Tab) 81 mg PO QDAY [facility] Last Admin: 09/02/20 09:27 Dose: 81 mg Documented by: Atorvastatin Calcium (Atorvastatin 40 Mg Tab) 40 mg PO QHS [facility] Last Admin: 09/02/20 21:54 Dose: 40 mg Documented by: Budesonide (Budesonide 0.5 Mg/2 Ml Nebu) 0.5 mg IH Q12HRT [facility] Last Admin: 09/03/20 09:53 Dose: Not Given Documented by: Calcium Carbonate/Glycine (Calcium Carbonate 500 Mg Tab Chew) 500 mg PO QDAY [facility] Last Admin: 09/02/20 09:27 Dose: 500 mg Documented by: Carvedilol (Carvedilol 6.25 Mg Tab) 6.25 mg PO BID [facility] Last Admin: 09/02/20 21:54 Dose: 6.25 mg Documented by: Guaifenesin (Guaifenesin 200 Mg Tab) 400 mg PO Q4HR PRN PRN Reason: Cough Last Admin: 08/30/20 05:33 Dose: 400 mg Documented by: Heparin Sodium (Porcine) (Heparin 5,000 Unit/1 Ml Vial) 5,000 unit SUB-Q Q8HR [facility] Last Admin: 09/03/20 05:27 Dose: 5,000 unit Documented by: Hydralazine HCl (Hydralazine 20 Mg/1 Ml Inj) 10 mg IV Q6H PRN PRN Reason: SBP>/=160; DBP >/=100 Last Admin: 08/31/20 13:40 Dose: 10 mg Documented by: Insulin Human Isoph/Insulin Regular (Insulin Nph/Regular 70/30 Inj) 10 unit SUB-Q BIDDIAB [facility] Last Admin: 09/02/20 16:23 Dose: Not Given Documented by: Insulin Human Lispro (Insulin Lispro 100 Unit/Ml) 0 unit SUB-Q QHS [facility]; Protocol Last Admin: 09/02/20 21:55 Dose: 3 unit Documented by: Ipratropium [place] (Ipratropium 0.02% Nebu 2.5 Ml) 0.5 mg IH Q8HRT [facility] Last Admin: 09/02/20 15:08 Dose: Not Given Documented by: Levalbuterol HCl (Levalbuterol 0.63 Mg/3 Ml Nebu) 0.63 mg IH Q8HRT [facility] Last Admin: 09/02/20 15:08 Dose: Not Given Documented by: Methylprednisolone Sodium Succinate (Methylprednisolone Sod Succinate 125 Mg/2 Ml Inj) 60 mg IV Q6HR [facility] Last Admin: 09/03/20 05:28 Dose: 60 mg Documented by: Mirtazapine (Mirtazapine 15 Mg Tab) 7.5 mg PO QHS [facility] Last Admin: 09/02/20 21:54 Dose: 7.5 mg Documented by: Montelukast Sodium (Montelukast 10 Mg Tab) 10 mg PO QHS [facility] Last Admin: 09/02/20 21:54 Dose: 10 mg Documented by: Multivitamins (Multivitamins ,Therapeutic Tab) 1 each PO QDAY [facility] Multivitamins/Iron (Fe Fumarate/Fa/Mv, Min Comb#15 Cap (Hemocyte Plus)) 1 each PO QDAY [facility] Ondansetron HCl (Ondansetron 4 Mg/2 Ml Inj) 4 mg IV Q8H PRN PRN Reason: Nausea And Vomiting Oxycodone/Acetaminophen (Oxycodone /Acetaminophen 5-325mg Tab) 1 tab PO BID PRN PRN Reason: Pain , Severe (7-10) Last Admin: 09/02/20 09:31 Dose: 1 tab Documented by: Pantoprazole Sodium (Pantoprazole 40 Mg Tab) 40 mg PO QDAY [facility] Last Admin: 09/02/20 09:29 Dose: 40 mg Documented by: Polyethylene Glycol (Polyethylene Glycol 3350 17 Gm Powder) 17 gm PO QDAY [facility] Last Admin: 09/02/20 09:27 Dose: 17 gm Documented by: Sodium Chloride (Sodium Chloride 0.9% 10 Ml Flush Syringe) 10 ml IV BID [facility] Last Admin: 09/02/20 21:55 Dose: 10 ml Documented by: Sodium Chloride (Sodium Chloride 0.9% 10 Ml Flush Syringe) 10 ml IV PRN PRN PRN Reason: LINE FLUSH Tramadol HCl (Tramadol 50 Mg Tab) 50 mg PO Q6HR PRN PRN Reason: Pain, Moderate (4-6) Last Admin: 09/01/20 05:05 Dose: 50 mg Documented by: I HAVE REVIEWED AND RECONCILED MEDICATIONS Review of Systems - Review of Systems All systems: negative (as noted in the HPI) Exam - Constitutional Vital Signs: Temp Pulse Resp BP Pulse Ox 97.9 F 79 18 124/62 98 09/03/20 07:29 09/03/20 07:29 09/03/20 07:29 09/03/20 07:29 09/03/20 07:29 General appearance: no acute distress - EENT Eyes: PERRL, EOM intact ENT: hearing intact, poor dentition - Neck Neck: supple, normal ROM - Respiratory Respiratory effort: labored Respiratory: bilateral: wheezing - Cardiovascular Rhythm: regular Heart Sounds: Present: S1 & S2, systolic murmur Extremities: no ischemia - Gastrointestinal General gastrointestinal: Present: soft, non-tender, non-distended - Integumentary Integumentary: Present: clear, warm, dry - Neurologic Neurological: alert and oriented x3 - Labs CBC & Chem 7: 09/03/20 05:02 09/03/20 05:02 Lab Results: Laboratory Results - last 24 hr 09/02/20 09/02/20 09/02/20 11:44 16:13 20:09 WBC RBC Hgb Hct MCV MCH MCHC RDW Plt Count Sodium Potassium Chloride Carbon Dioxide Anion Gap BUN Creatinine Estimated GFR BUN/Creatinine Ratio Glucose POC Glucose 167 H 105 214 H Calcium Troponin T 09/03/20 09/03/20 09/03/20 05:02 05:02 07:35 WBC 9.6 RBC 2.25 L Hgb 6.5 L Hct 19.7 L* MCV 87 MCH 29 MCHC 33 RDW 21.3 H Plt Count 178 Sodium 149 H Potassium 3.3 L Chloride 100.3 Carbon Dioxide 38 H Anion Gap 14 BUN 30 H Creatinine 0.9 Estimated GFR > 60 BUN/Creatinine Ratio 33 Glucose 212 H POC Glucose 207 H Calcium 6.7 L Troponin T < 0.010 Assessment and Plan - Patient Problems (1) Anemia of chronic disease Current Visit: Yes Status: Acute Plan to address problem: - The patient has moderate to severe malnutrition, poor PO intake/resources, and uncontrolled HIV (last CD4 I found in Epic showed CD4 of 20). - In addition, he has required transfusions at least twice this year ([place], [facility]) for acute on chronic anemia; this is suggestive of marrow dysfunction. - EGD/colon 2019 relatively unremarkable, and no active bleeding noted this admit. - Given his heart disease, I would continue daily ASA, with protonix. - His compliance is very poor, and Atrial Fib is only paroxysmal; I feel he is too high risk for other anticoagulation unless Cards strongly recommends. - Given his severe Pulmonary/Cardiac disease, and no active GI bleeding, I would not recommend EGD/colonoscopy until he has completed Rehab, and stabilized on medications (unless he decompensates/actively bleeds). - I have ordered a Lymphocyte subset (?if he needs to be on Bactrim) and MVI/Hemocyte therapy. - Given his poor compliance, progression of disease, end-stage HIV/COPD/CHF, I think a goals of care discussion would also be appropriate.
[2020-09-03] MEDS: ALPRAZolam 0.25 MG TAB PO PRN ×2 (10:53→21:43)
--- NOTE | 2020-09-03 11:02 | Progress Note ---
Assessment and Plan Paroxysmal A. fib with RVR in setting of severe chronic anemia * Echocardiogram (04/08/2020): LVEF is 60 to 65%. LV size is normal. LV SF is normal. RV SF is normal. LA, RA size is normal. Mild TR, RVSP 34 mmHg. * Review of telemetry shows patient in sinus rhythm with no episodes of A. fib overnight. * Continue current antihypertensive regimen * Agree with GI recommendations: No anticoagulation due to high risk of hemorrhage, bleeding event Chest pain in setting of mild nonobstructive coronary artery disease * Patient complaining of chest pain and dizziness this a.m. Repeat twelve-lead was performed showing normal sinus rhythm with no acute ischemic changes. Repeat troponins are negative. AMI is ruled out * LHC done 09/15/2019 showed mild nonobstructive CAD (25% mid RCA), EF 55-60%. No plans for further ischemic evaluation Tobacco /cocaine use * Cessation encouraged Patient is [facility]. We will follow This patient was seen in conjunction with Dr Hall who agrees with assessment and plan of care - Patient Problems (1) Chest pain Current Visit: Yes Status: Acute (2) Nonobstructive atherosclerosis of coronary artery Current Visit: Yes Status: Chronic (3) Paroxysmal atrial fibrillation Current Visit: Yes Status: Chronic (4) Hypertension Current Visit: Yes Status: Chronic Qualifiers: Hypertension type: essential hypertension Qualified Code(s): I10 - Essential (primary) hypertension (5) COPD (chronic obstructive pulmonary disease) Current Visit: Yes Status: Chronic Qualifiers: COPD type: unspecified COPD Qualified Code(s): J44.9 - Chronic obstructive pulmonary disease, unspecified (6) HIV (human immunodeficiency virus infection) Current Visit: Yes Status: Chronic Qualifiers: HIV symptom status: asymptomatic Qualified Code(s): Z21 - Asymptomatic human immunodeficiency virus [HIV] infection status (7) Anemia Current Visit: Yes Status: Chronic Qualifiers: Anemia type: unspecified type Qualified Code(s): D64.9 - Anemia, unspecified (8) History of pulmonary embolism Current Visit: Yes Status: Chronic (9) Tobacco use Current Visit: Yes Status: Chronic (10) Medical noncompliance Current Visit: Yes Status: Chronic (11) Cocaine use Current Visit: Yes Status: Chronic Subjective Date of service: 09/03/20 Principal diagnosis: Ac hypoxemic resp failure; AE-COPD; ANGELIC; HIV +ve; HTN; Cocaine Use Interval history: Patient resting in bed with mild discomfort. Telemetry reviewed shows sinus rhythm 76 with no events Objective Last Vital Signs Temp 97.9 F 09/03/20 07:29 Pulse 79 09/03/20 07:29 Resp 18 09/03/20 07:29 BP 124/62 09/03/20 07:29 Pulse Ox 98 09/03/20 07:29 - Physical Examination General: No Apparent Distress HEENT: Positive: PERRL, Normocephaly, Mucus Membranes Moist Neck: Positive: neck supple, trachea midline Cardiac: Positive: Reg Rate and Rhythm, S1/S2 Lungs: Positive: Normal Exam, Normal Breath Sounds Neuro: Positive: Grossly Intact Abdomen: Positive: Unremarkable, Soft Skin: Negative: Rash, Wound Musculoskeletal: No Pain Extremities: Present: upper extr. pulses, lower extr. pulses. Absent: edema - Labs and Meds CBC 09/03/20 Range/Units 05:02 WBC 9.6 (4.5-11.0) K/mm3 RBC 2.25 L (3.65-5.03) M/mm3 Hgb 6.5 L (11.8-15.2) gm/dl Hct 19.7 L* (35.5-45.6) % Plt Count 178 (140-440) K/mm3 Comprehensive Metabolic Panel 09/03/20 Range/Units 05:02 Sodium 149 H (137-145) mmol/L Potassium 3.3 L (3.6-5.0) mmol/L Chloride 100.3 (98-107) mmol/L Carbon Dioxide 38 H (22-30) mmol/L BUN 30 H (9-20) mg/dL Creatinine 0.9 (0.8-1.3) mg/dL Glucose 212 H (75-100) mg/dL Calcium 6.7 L (8.4-10.2) mg/dL - Imaging and Cardiology EKG: report reviewed (Stat EKG performed this a.m. due to complaint of chest pain which was normal sinus rhythm with no acute ischemic changes.), image reviewed Echo: report reviewed (Echocardiogram (04/08/2020): LVEF is 60 to 65%. LV size is normal. LV SF is normal. RV SF is normal. LA, RA size is normal. Mild TR, RVSP 34 mmHg.) Cardiac cath: report reviewed ([facility] (09/15/2019): Mild nonobstructive coronary artery disease. 25% mid RCA stenosis. Estimated EF 55 to 60%.) - Telemetry EKG Rhythm: Sinus Rhythm - EKG Sinus rhythms and dysrhythmias: sinus rhythm - Allied health notes Allied health notes reviewed: RT
--- NOTE | 2020-09-03 11:06 | Progress Note ---
Assessment and Plan Acute hypoxemic respiratory failure Acute COPD exacerbation ANGELIC GERD (gastroesophageal reflux disease) HIV (human immunodeficiency virus infection) Hypertension Cocaine use Tobacco use disorder Hypernatrmia - continue to wean supplemental oxygen to keep O2 sats > 90% - continue Bronchodilators (HEIDI & LABA) with pulm hygiene per RT - continue systemic steroids with slow taper, switch to oral prednisone in the morning - continue inhaled corticosteroids - avoid nephrotoxins, renally dose all medications - continue mobility protocols to prevent pressure ulcers - PT/OT as tolerated - Wound care per RN/WCT - continue accuchecks with glycemic control per SSI for target blood glucose < 180 mg/dL - tobacco abstinence strongly counseled at the bedside - ongoing - home oxygen evaluation at discharge -Stress ulcer prophylaxis while on high dose steroids and in the setting of GERD -VTE prophylaxis( SCDs, no therapeutic anticoagulation per Cardiology and GI service) - Flu & pneumovax per protocol - Pulmonary out patient follow up for PFTs and optimization of respiratory status - continue other care per attending / other consultants - prn analgesia per pain score Subjective Date of service: 09/03/20 Principal diagnosis: Ac hypoxemic resp failure; AE-COPD; ANGELIC; HIV +ve; HTN; Cocaine Use Interval history: Patient is seen today for: Acute hypoxemic respiratory failure; AE-COPD; ANGELIC; HIV infection; HTN; Cocaine use; Tobacco use disorder Seen and examined at bedside; 24hour events reviewed; nursing and respiratory care staff consulted; no adverse overnight events reported to me; resting peacefully in bed Endorses shortness of breath but improving, no chest pain, poor sleep Objective Vital Signs - 12hr 09/02/20 09/03/20 09/03/20 23:30 01:00 03:45 Temperature 98.2 F 97.4 F L Pulse Rate 78 95 H 91 H Respiratory 18 22 17 Rate Blood Pressure 113/61 125/68 O2 Sat by Pulse 98 94 95 Oximetry 09/03/20 07:29 Temperature 97.9 F Pulse Rate 79 Respiratory 18 Rate Blood Pressure 124/62 O2 Sat by Pulse 98 Oximetry Constitutional: alert, other (Slight increased work of breathing at rest,) Eyes: non-icteric ENT: oropharynx moist Neck: supple, no JVD Effort: mildly labored Ascultation: Bilateral: diminished breath sounds, wheezes, other (Prolonged expiratory phase.) Cardiovascular: regular rate and rhythm, other (S1,S2) Gastrointestinal: normoactive bowel sounds, soft, non-tender Integumentary: normal Extremities: no cyanosis, no edema Neurologic: normal mental status, non-focal exam, pupils equal and round Psychiatric: anxious, depressed CBC and BMP: 09/04/20 05:53 09/03/20 05:02 ABG, PT/INR, D-dimer: ABG ABG pH 7.316 (7.320-7.450) L 08/28/20 11:00 POC ABG pCO2 68.0 mmHg (32.0-48.0) H 08/28/20 11:00 POC ABG pO2 75.4 mmHg (83-108) L 08/28/20 11:00 POC ABG HCO3 33.9 08/28/20 11:00 ABG O2 Saturation 93.6 (0-100) 08/28/20 11:00 Abnormal lab findings: Abnormal Labs 08/24/20 08/24/20 08/25/20 19:29 19:29 07:00 WBC RBC 3.36 L Hgb 9.7 L Hct 28.5 L MCH MCHC RDW 20.6 H Seg Neuts % (Manual) 97.0 H Lymphocytes % (Manual) 1.0 L Seg Neutrophils # Man 10.2 H Lymphocytes # (Manual) 0.1 L ABG pH POC ABG pCO2 POC ABG pO2 ABG Hemoglobin ABG Oxyhemoglobin ABG Glucose Sodium Potassium 3.3 L Carbon Dioxide BUN Glucose 121 H POC Glucose 211 H Calcium 7.6 L Alkaline Phosphatase 154 H Albumin 3.4 L Arterial Blood Glucose Arterial Blood Ionized Calcium Crossmatch 08/25/20 08/25/20 08/25/20 07:21 07:21 12:06 WBC RBC 3.13 L Hgb 8.9 L Hct 26.5 L MCH MCHC RDW 20.6 H Seg Neuts % (Manual) 96.0 H Lymphocytes % (Manual) 3.0 L Seg Neutrophils # Man Lymphocytes # (Manual) 0.2 L ABG pH POC ABG pCO2 POC ABG pO2 ABG Hemoglobin ABG Oxyhemoglobin ABG Glucose Sodium Potassium Carbon Dioxide 31 H BUN Glucose 208 H POC Glucose 162 H Calcium 7.4 L Alkaline Phosphatase Albumin Arterial Blood Glucose Arterial Blood Ionized Calcium Crossmatch 08/25/20 08/25/20 08/26/20 17:01 21:52 05:09 WBC 14.9 H RBC 3.11 L Hgb 8.9 L Hct 26.7 L MCH MCHC RDW 20.6 H Seg Neuts % (Manual) Lymphocytes % (Manual) Seg Neutrophils # Man Lymphocytes # (Manual) ABG pH POC ABG pCO2 POC ABG pO2 ABG Hemoglobin ABG Oxyhemoglobin ABG Glucose Sodium Potassium Carbon Dioxide BUN Glucose POC Glucose 158 H 175 H Calcium Alkaline Phosphatase Albumin Arterial Blood Glucose Arterial Blood Ionized Calcium Crossmatch 08/26/20 08/26/20 08/26/20 05:09 07:21 11:21 WBC RBC Hgb Hct MCH MCHC RDW Seg Neuts % (Manual) Lymphocytes % (Manual) Seg Neutrophils # Man Lymphocytes # (Manual) ABG pH POC ABG pCO2 POC ABG pO2 ABG Hemoglobin ABG Oxyhemoglobin ABG Glucose Sodium Potassium Carbon Dioxide 31 H BUN 21 H Glucose 183 H POC Glucose 149 H 145 H Calcium 7.0 L Alkaline Phosphatase Albumin Arterial Blood Glucose Arterial Blood Ionized Calcium Crossmatch 08/26/20 08/26/20 08/27/20 16:49 21:19 04:41 WBC 11.5 H RBC 2.93 L Hgb 8.0 L Hct 25.2 L MCH 27 L MCHC RDW 21.0 H Seg Neuts % (Manual) Lymphocytes % (Manual) Seg Neutrophils # Man Lymphocytes # (Manual) ABG pH POC ABG pCO2 POC ABG pO2 ABG Hemoglobin ABG Oxyhemoglobin ABG Glucose Sodium Potassium Carbon Dioxide BUN Glucose POC Glucose 177 H 144 H Calcium Alkaline Phosphatase Albumin Arterial Blood Glucose Arterial Blood Ionized Calcium Crossmatch 08/27/20 08/27/20 08/27/20 04:41 07:25 07:30 WBC RBC Hgb Hct MCH MCHC RDW Seg Neuts % (Manual) Lymphocytes % (Manual) Seg Neutrophils # Man Lymphocytes # (Manual) ABG pH POC ABG pCO2 POC ABG pO2 ABG Hemoglobin ABG Oxyhemoglobin ABG Glucose Sodium Potassium Carbon Dioxide 35 H BUN 24 H Glucose 173 H POC Glucose 153 H 143 H Calcium 7.3 L Alkaline Phosphatase Albumin Arterial Blood Glucose Arterial Blood Ionized Calcium Crossmatch 08/27/20 08/27/20 08/27/20 11:27 15:49 21:17 WBC RBC Hgb Hct MCH MCHC RDW Seg Neuts % (Manual) Lymphocytes % (Manual) Seg Neutrophils # Man Lymphocytes # (Manual) ABG pH POC ABG pCO2 POC ABG pO2 ABG Hemoglobin ABG Oxyhemoglobin ABG Glucose Sodium Potassium Carbon Dioxide BUN Glucose POC Glucose 236 H 184 H 144 H Calcium Alkaline Phosphatase Albumin Arterial Blood Glucose Arterial Blood Ionized Calcium Crossmatch 08/28/20 08/28/20 08/28/20 05:55 05:55 07:25 WBC RBC 2.58 L Hgb 7.6 L Hct 22.1 L MCH MCHC 35 H RDW 20.3 H Seg Neuts % (Manual) Lymphocytes % (Manual) Seg Neutrophils # Man Lymphocytes # (Manual) ABG pH POC ABG pCO2 POC ABG pO2 ABG Hemoglobin ABG Oxyhemoglobin ABG Glucose Sodium Potassium 3.5 L Carbon Dioxide BUN 33 H Glucose 183 H POC Glucose 164 H Calcium 6.8 L Alkaline Phosphatase Albumin Arterial Blood Glucose Arterial Blood Ionized Calcium Crossmatch 08/28/20 08/28/20 08/28/20 11:00 12:06 15:28 WBC RBC Hgb Hct MCH MCHC RDW Seg Neuts % (Manual) Lymphocytes % (Manual) Seg Neutrophils # Man Lymphocytes # (Manual) ABG pH 7.316 L POC ABG pCO2 68.0 H POC ABG pO2 75.4 L ABG Hemoglobin 8.3 L ABG Oxyhemoglobin 92.5 L ABG Glucose 302 H Sodium Potassium Carbon Dioxide BUN Glucose POC Glucose 233 H 146 H Calcium Alkaline Phosphatase Albumin Arterial Blood Glucose 302 H Arterial Blood Ionized Calcium 3.8 L Crossmatch 08/28/20 08/29/20 08/29/20 21:34 07:26 12:05 WBC RBC Hgb Hct MCH MCHC RDW Seg Neuts % (Manual) Lymphocytes % (Manual) Seg Neutrophils # Man Lymphocytes # (Manual) ABG pH POC ABG pCO2 POC ABG pO2 ABG Hemoglobin ABG Oxyhemoglobin ABG Glucose Sodium Potassium Carbon Dioxide BUN Glucose POC Glucose 201 H 167 H 253 H Calcium Alkaline Phosphatase Albumin Arterial Blood Glucose Arterial Blood Ionized Calcium Crossmatch 08/29/20 08/29/20 08/30/20 16:32 21:56 07:53 WBC RBC Hgb Hct MCH MCHC RDW Seg Neuts % (Manual) Lymphocytes % (Manual) Seg Neutrophils # Man Lymphocytes # (Manual) ABG pH POC ABG pCO2 POC ABG pO2 ABG Hemoglobin ABG Oxyhemoglobin ABG Glucose Sodium Potassium Carbon Dioxide BUN Glucose POC Glucose 128 H 220 H 286 H Calcium Alkaline Phosphatase Albumin Arterial Blood Glucose Arterial Blood Ionized Calcium Crossmatch 08/30/20 08/30/20 08/30/20 11:29 17:32 22:03 WBC RBC Hgb Hct MCH MCHC RDW Seg Neuts % (Manual) Lymphocytes % (Manual) Seg Neutrophils # Man Lymphocytes # (Manual) ABG pH POC ABG pCO2 POC ABG pO2 ABG Hemoglobin ABG Oxyhemoglobin ABG Glucose Sodium Potassium Carbon Dioxide BUN Glucose POC Glucose 299 H 260 H 196 H Calcium Alkaline Phosphatase Albumin Arterial Blood Glucose Arterial Blood Ionized Calcium Crossmatch 08/31/20 08/31/20 08/31/20 07:41 11:26 16:19 WBC RBC Hgb Hct MCH MCHC RDW Seg Neuts % (Manual) Lymphocytes % (Manual) Seg Neutrophils # Man Lymphocytes # (Manual) ABG pH POC ABG pCO2 POC ABG pO2 ABG Hemoglobin ABG Oxyhemoglobin ABG Glucose Sodium Potassium Carbon Dioxide BUN Glucose POC Glucose 166 H 269 H 265 H Calcium Alkaline Phosphatase Albumin Arterial Blood Glucose Arterial Blood Ionized Calcium Crossmatch 08/31/20 09/01/20 09/01/20 20:44 07:40 11:39 WBC RBC Hgb Hct MCH MCHC RDW Seg Neuts % (Manual) Lymphocytes % (Manual) Seg Neutrophils # Man Lymphocytes # (Manual) ABG pH POC ABG pCO2 POC ABG pO2 ABG Hemoglobin ABG Oxyhemoglobin ABG Glucose Sodium Potassium Carbon Dioxide BUN Glucose POC Glucose 243 H 272 H 320 H Calcium Alkaline Phosphatase Albumin Arterial Blood Glucose Arterial Blood Ionized Calcium Crossmatch 09/01/20 09/01/20 09/02/20 16:16 21:59 08:32 WBC RBC Hgb Hct MCH MCHC RDW Seg Neuts % (Manual) Lymphocytes % (Manual) Seg Neutrophils # Man Lymphocytes # (Manual) ABG pH POC ABG pCO2 POC ABG pO2 ABG Hemoglobin ABG Oxyhemoglobin ABG Glucose Sodium Potassium Carbon Dioxide BUN Glucose POC Glucose 319 H 157 H 195 H Calcium Alkaline Phosphatase Albumin Arterial Blood Glucose Arterial Blood Ionized Calcium Crossmatch 09/02/20 09/02/20 09/03/20 11:44 20:09 05:02 WBC RBC 2.25 L Hgb 6.5 L Hct 19.7 L* MCH MCHC RDW 21.3 H Seg Neuts % (Manual) Lymphocytes % (Manual) Seg Neutrophils # Man Lymphocytes # (Manual) ABG pH POC ABG pCO2 POC ABG pO2 ABG Hemoglobin ABG Oxyhemoglobin ABG Glucose Sodium Potassium Carbon Dioxide BUN Glucose POC Glucose 167 H 214 H Calcium Alkaline Phosphatase Albumin Arterial Blood Glucose Arterial Blood Ionized Calcium Crossmatch 09/03/20 09/03/20 09/03/20 05:02 07:35 09:56 WBC RBC Hgb Hct MCH MCHC RDW Seg Neuts % (Manual) Lymphocytes % (Manual) Seg Neutrophils # Man Lymphocytes # (Manual) ABG pH POC ABG pCO2 POC ABG pO2 ABG Hemoglobin ABG Oxyhemoglobin ABG Glucose Sodium 149 H Potassium 3.3 L Carbon Dioxide 38 H BUN 30 H Glucose 212 H POC Glucose 207 H Calcium 6.7 L Alkaline Phosphatase Albumin Arterial Blood Glucose Arterial Blood Ionized Calcium Crossmatch See Detail Chest x-ray: image reviewed Allied health notes reviewed: RT
[2020-09-03] MEDS ORDERED: SODIUM CHLORIDE 0.9% 250ML 250 ML ONE (12:35)
[2020-09-03] MEDS: IPRATROPIUM 0.02% NEBU 2.5 ML IH SCH ×3 (13:36→15:01)
[2020-09-03] MEDS: LEVALBUTEROL 0.63 MG/3 ML NEBU IH SCH ×3 (13:36→15:01)
--- NOTE | 2020-09-03 17:09 | Progress Note ---
Subjective Date of service: 09/03/20 Principal diagnosis: Ac hypoxemic resp failure; AE-COPD; ANGELIC; HIV +ve; HTN; Cocaine Use Objective - Constitutional Vitals: Vital Signs - 12hr 09/03/20 09/03/20 09/03/20 07:29 10:00 11:59 Temperature 97.9 F 97.5 F L Pulse Rate 79 73 94 H Pulse Rate [ Bilateral] Respiratory 18 28 H 18 Rate Respiratory Rate [Bilateral ] Blood Pressure 124/62 122/80 O2 Sat by Pulse 98 97 97 Oximetry 09/03/20 09/03/20 09/03/20 12:50 12:59 13:01 Temperature Pulse Rate Pulse Rate [ Bilateral] Respiratory Rate Respiratory Rate [Bilateral ] Blood Pressure 127/65 118/60 122/55 O2 Sat by Pulse Oximetry 09/03/20 09/03/20 09/03/20 13:15 13:31 13:36 Temperature Pulse Rate Pulse Rate [ Bilateral] Respiratory Rate Respiratory Rate [Bilateral ] Blood Pressure 120/58 128/71 O2 Sat by Pulse 98 Oximetry 09/03/20 09/03/20 09/03/20 13:37 13:45 14:00 Temperature Pulse Rate Pulse Rate [ 85 Bilateral] Respiratory Rate Respiratory 20 Rate [Bilateral ] Blood Pressure 138/88 135/82 O2 Sat by Pulse Oximetry 09/03/20 09/03/20 09/03/20 14:15 14:30 14:45 Temperature Pulse Rate Pulse Rate [ Bilateral] Respiratory Rate Respiratory Rate [Bilateral ] Blood Pressure 145/81 120/61 118/56 O2 Sat by Pulse Oximetry 09/03/20 09/03/20 09/03/20 15:01 15:02 15:16 Temperature Pulse Rate Pulse Rate [ 89 Bilateral] Respiratory Rate Respiratory 22 Rate [Bilateral ] Blood Pressure 115/58 130/83 O2 Sat by Pulse Oximetry 09/03/20 09/03/20 09/03/20 15:31 15:45 15:59 Temperature 97.4 F L Pulse Rate 104 H Pulse Rate [ Bilateral] Respiratory 20 Rate Respiratory Rate [Bilateral ] Blood Pressure 132/77 137/83 130/82 O2 Sat by Pulse 98 Oximetry 09/03/20 09/03/20 16:00 16:07 Temperature Pulse Rate 89 Pulse Rate [ Bilateral] Respiratory 21 Rate Respiratory Rate [Bilateral ] Blood Pressure 125/79 125/79 O2 Sat by Pulse 94 Oximetry General appearance: Present: no acute distress, well-nourished - EENT Eyes: PERRL, EOM intact ENT: hearing intact, clear oral mucosa Ears: bilateral: normal - Neck Neck: supple, normal ROM - Respiratory Respiratory effort: normal Respiratory: bilateral: CTA - Breasts Breasts: normal - Cardiovascular Rhythm: regular Heart Sounds: Present: S1 & S2. Absent: gallop, rub Extremities: pulses intact, No edema, normal color, Full ROM - Gastrointestinal General gastrointestinal: Present: soft, non-tender, non-distended, normal bowel sounds - Genitourinary Male genitourinary: normal - Integumentary Integumentary: clear, warm, dry - Musculoskeletal Musculoskeletal: 1, strength equal bilaterally - Neurologic Neurologic: moves all extremities - Psychiatric Psychiatric: memory intact, appropriate mood/affect, intact judgment & insight - Labs CBC & Chem 7: 09/03/20 05:02 09/03/20 05:02 Labs: Abnormal lab results 09/02/20 09/03/20 09/03/20 Range/Units 20:09 05:02 05:02 RBC 2.25 L (3.65-5.03) M/mm3 Hgb 6.5 L (11.8-15.2) gm/dl Hct 19.7 L* (35.5-45.6) % RDW 21.3 H (13.2-15.2) % Sodium 149 H (137-145) mmol/L Potassium 3.3 L (3.6-5.0) mmol/L Carbon Dioxide 38 H (22-30) mmol/L BUN 30 H (9-20) mg/dL Glucose 212 H (75-100) mg/dL POC Glucose 214 H (70-105) mg/dL Calcium 6.7 L (8.4-10.2) mg/dL Crossmatch 09/03/20 09/03/20 09/03/20 Range/Units 07:35 09:56 12:05 RBC (3.65-5.03) M/mm3 Hgb (11.8-15.2) gm/dl Hct (35.5-45.6) % RDW (13.2-15.2) % Sodium (137-145) mmol/L Potassium (3.6-5.0) mmol/L Carbon Dioxide (22-30) mmol/L BUN (9-20) mg/dL Glucose (75-100) mg/dL POC Glucose 207 H 193 H (70-105) mg/dL Calcium (8.4-10.2) mg/dL Crossmatch See Detail 09/03/20 Range/Units 16:04 RBC (3.65-5.03) M/mm3 Hgb (11.8-15.2) gm/dl Hct (35.5-45.6) % RDW (13.2-15.2) % Sodium (137-145) mmol/L Potassium (3.6-5.0) mmol/L Carbon Dioxide (22-30) mmol/L BUN (9-20) mg/dL Glucose (75-100) mg/dL POC Glucose 174 H (70-105) mg/dL Calcium (8.4-10.2) mg/dL Crossmatch HEART Score - HEART Score Troponin: Troponin T < 0.010 ng/mL (0.00-0.029) 09/03/20 05:02
[2020-09-03] MEDS: oxyCODONE /ACETAMINOPHEN 5-325MG TAB PO PRN (20:26)
[2020-09-03] MEDS: MIRTAZAPINE 15 MG TAB PO SCH (21:41)
[2020-09-03] MEDS: MONTELUKAST 10 MG TAB PO SCH (21:41)
[2020-09-03] MEDS: INSULIN LISPRO 100 UNIT/ML SUB-Q SCH (21:47)
[2020-09-04] MEDS: IPRATROPIUM 0.02% NEBU 2.5 ML IH SCH ×4 (02:22→16:27)
[2020-09-04] MEDS: LEVALBUTEROL 0.63 MG/3 ML NEBU IH SCH ×4 (02:22→16:27)
[2020-09-04] MEDS: methylPREDNISolone Sod Succinate 125 MG/2 ML INJ IV SCH (05:19)
[2020-09-04] MEDS: HEPARIN 5,000 UNIT/1 ML VIAL SUB-Q SCH ×2 (05:19→21:56)
[2020-09-04 06:23] LABS: Hematocrit 26.4 % (35.5-45.6); Hemoglobin 8.6 gm/dl (11.8-15.2); Mean Corpuscular HGB Conc 33 % (32-34); Mean Corpuscular Volume 88 fl (84-94); Platelet Count 162 K/mm3 (140-440); Red Blood Count 2.99 M/mm3 (3.65-5.03)
[2020-09-04] MEDS: ARFORMOTEROL 15 MCG/2 ML NEBU IH SCH ×2 (07:44→20:58)
[2020-09-04] MEDS: BUDESONIDE 0.5 MG/2 ML NEBU IH SCH ×2 (07:44→20:58)
--- NOTE | 2020-09-04 09:53 | Gastroenterology Progress Note ---
Assessment and Plan - Patient Problems (1) Anemia of chronic disease Current Visit: Yes Status: Acute Plan to address problem: - The patient has moderate to severe malnutrition, poor PO intake/resources, and uncontrolled HIV (last CD4 I found in [facility] showed CD4 of 20 in 2020, though the VL was low). He is actively using cocaine, and has been hospitalized at [facility], [facility], [facility], and [facility] as well as [facility] in the past 12 months for COPD/CHF exacerbation with cocaine use. - In addition, he has required transfusions at least twice this year ([facility], [facility]) for acute on chronic anemia; this is suggestive of marrow dysfunction. - EGD/colon 2019 relatively unremarkable, and no active bleeding noted this admit. - Given his heart disease, I would continue daily ASA, with protonix. - His compliance is very poor, and Atrial Fib is only paroxysmal; I feel he is too high risk for other anticoagulation unless Cards strongly recommends. - Given his severe Pulmonary/Cardiac disease, and no active GI bleeding, I would not recommend EGD/colonoscopy until he has completed Rehab, and stabilized on medications (unless he decompensates/actively bleeds). - I have ordered a Lymphocyte subset (?if he needs to be on Bactrim) and MVI/Hemocyte therapy. - Given his poor compliance, progression of disease, end-stage HIV/COPD/CHF, I think a goals of care discussion would also be appropriate. - His hct is markedly better today after transfusion (increased more than expected). Will sign off; please call if needed. Subjective Date of service: 09/04/20 Principal diagnosis: Chronic Anemia Interval history: The patient feels better today, and has had no blood in his BMs. Denies abdominal pain, and eating all of his meals. Objective - Constitutional Vitals: Temp Pulse Resp BP Pulse Ox 97.6 F 76 23 118/60 93 09/04/20 02:58 09/04/20 08:15 09/04/20 08:15 09/04/20 02:58 09/04/20 08:49 General appearance: mild distress (Mild resp distress is improved today) - EENT Eyes: PERRL, EOM intact - Respiratory Respiratory effort: labored (Minimal) Respiratory: bilateral: wheezing - Cardiovascular Rhythm: regular Heart Sounds: Present: S1 & S2, systolic murmur - Gastrointestinal General gastrointestinal: Present: soft, non-tender, non-distended - Labs CBC & Chem 7: 09/04/20 05:53 09/03/20 05:02 Labs: Laboratory Results - last 24 hr 09/03/20 09/03/20 09/03/20 09:56 12:05 16:04 WBC RBC Hgb Hct MCV MCH MCHC RDW Plt Count POC Glucose 193 H 174 H Blood Type A POSITIVE Antibody Screen Negative Crossmatch See Detail 09/03/20 09/04/20 09/04/20 20:09 05:53 08:33 WBC 14.8 H RBC 2.99 L Hgb 8.6 L Hct 26.4 L D MCV 88 MCH 29 MCHC 33 RDW 19.0 H Plt Count 162 POC Glucose 90 222 H Blood Type Antibody Screen Crossmatch
[2020-09-04] MEDS: CALCIUM CARBONATE 500 MG TAB CHEW PO SCH (09:59)
[2020-09-04] MEDS: carvediloL 6.25 MG TAB PO SCH ×2 (09:59→21:56)
[2020-09-04] MEDS: FE FUMARATE/FA/MV, MIN COMB#15 CAP (HEMOCYTE PLUS) PO SCH (09:59)
[2020-09-04] MEDS: PANTOPRAZOLE 40 MG TAB PO SCH (09:59)
[2020-09-04] MEDS: INSULIN NPH/REGULAR 70/30 INJ SUB-Q SCH (09:59)
[2020-09-04] MEDS: MULTIVITAMINS ,THERAPEUTIC TAB PO SCH (09:59)
[2020-09-04] MEDS: ASPIRIN EC 81 MG TAB PO SCH (09:59)
[2020-09-04] MEDS: POLYETHYLENE GLYCOL 3350 17 GM POWDER PO SCH (10:00)
--- NOTE | 2020-09-04 11:51 | Progress Note ---
Assessment and Plan Paxroxasmal AFib * Cardiology is consulted for PAfib * Telemtry shows no AFIB x48hrs. Anticoagualtion is note recommended due to severe anemia. * Continue rate control with Coreg Chest pain in setting of mild nonobstructive coronary artery disease * Patient complaining of chest pain and dizziness this a.m. Repeat twelve-lead was performed showing normal sinus rhythm with no acute ischemic changes. Repeat troponins are negative. AMI is ruled out * LHC done 09/15/2019 showed mild nonobstructive CAD (25% mid RCA), EF 55-60%. No plans for further ischemic evaluation Tobacco /cocaine use * Cessation encouraged DVT Prophylaxis * Heparin SQ BID Patient is waiting placement in care home facility. Will see patient PRN This patient was seen in conjunction with Dr Hall who agrees with assessment and plan of care - Patient Problems (1) Chest pain Current Visit: Yes Status: Acute (2) Nonobstructive atherosclerosis of coronary artery Current Visit: Yes Status: Chronic (3) Paroxysmal atrial fibrillation Current Visit: Yes Status: Chronic (4) Hypertension Current Visit: Yes Status: Chronic Qualifiers: Hypertension type: essential hypertension Qualified Code(s): I10 - Essential (primary) hypertension (5) COPD (chronic obstructive pulmonary disease) Current Visit: Yes Status: Chronic Qualifiers: COPD type: unspecified COPD Qualified Code(s): J44.9 - Chronic obstructive pulmonary disease, unspecified (6) HIV (human immunodeficiency virus infection) Current Visit: Yes Status: Chronic Qualifiers: HIV symptom status: asymptomatic Qualified Code(s): Z21 - Asymptomatic human immunodeficiency virus [HIV] infection status (7) Anemia Current Visit: Yes Status: Chronic Qualifiers: Anemia type: unspecified type Qualified Code(s): D64.9 - Anemia, unspecified (8) History of pulmonary embolism Current Visit: Yes Status: Chronic (9) Tobacco use Current Visit: Yes Status: Chronic (10) Medical noncompliance Current Visit: Yes Status: Chronic (11) Cocaine use Current Visit: Yes Status: Chronic Subjective Date of service: 09/04/20 Principal diagnosis: Chronic Anemia Interval history: Patient resting in bed with no complaints. No SOB, chest pain. Sinus 90s No episodes of AFIB Objective Last Vital Signs Temp 97.6 F 09/04/20 02:58 Pulse 76 09/04/20 08:15 Resp 23 09/04/20 08:15 BP 118/60 09/04/20 02:58 Pulse Ox 93 09/04/20 08:49 - Physical Examination General: No Apparent Distress HEENT: Positive: PERRL, Normocephaly, Mucus Membranes Moist Neck: Positive: neck supple, trachea midline Cardiac: Positive: Reg Rate and Rhythm, S1/S2 Lungs: Positive: Normal Exam, clear to auscultation, Normal Breath Sounds, No Wheeze, Rales, Rhonchi Neuro: Positive: Grossly Intact Abdomen: Positive: Unremarkable, Soft Skin: Negative: Rash, Wound Musculoskeletal: No Pain Extremities: Present: upper extr. pulses, lower extr. pulses. Absent: edema - Labs and Meds CBC 09/04/20 Range/Units 05:53 WBC 14.8 H (4.5-11.0) K/mm3 RBC 2.99 L (3.65-5.03) M/mm3 Hgb 8.6 L (11.8-15.2) gm/dl Hct 26.4 L D (35.5-45.6) % Plt Count 162 (140-440) K/mm3 - Imaging and Cardiology EKG: report reviewed (Stat EKG performed this a.m. due to complaint of chest pain which was normal sinus rhythm with no acute ischemic changes.), image reviewed Echo: report reviewed (Echocardiogram (04/08/2020): LVEF is 60 to 65%. LV size is normal. LV SF is normal. RV SF is normal. LA, RA size is normal. Mild TR, RVSP 34 mmHg.) Cardiac cath: report reviewed ([facility] (09/15/2019): Mild nonobstructive coronary artery disease. 25% mid RCA stenosis. Estimated EF 55 to 60%.) - Telemetry EKG Rhythm: Sinus Rhythm - EKG Sinus rhythms and dysrhythmias: sinus rhythm - Allied health notes Allied health notes reviewed: RT
--- NOTE | 2020-09-04 13:20 | Progress Note ---
Assessment and Plan 64-year-old male with past medical history of COPD, hypertension, Diabetes,asthma PE was brought to the emergency room because of shortness of breath since this morning. Patient had an IV started by EMS and was given IV mag, Solu-Medrol and an albuterol treatment. EMS states that the patient states his symptoms are worsening. Patient states 5 breathing treatment just prior to arrival and did not work. Shortness of breath better with rest and worse with exertion. Patient states he has a long history of COPD and asthma. Patient states he had multiple visits to the ER for this. Patient denies chest pain. Patient denies fever and chills. Patient complains of dry cough Patient has history of smoking 1 pack x 40 years. Says stopped smoking 2 months ago. History of using Cocaine. Denies alcohol abuse. Says worked in [employer] field before he disabled. Patient and has two children.No Known drug allergies Patient awake. Still complaining some shortness of breath. Appears breathing better than before. Patient is on 4 litres O2. O2 saturation 93% Patient afebrile and has leukocytosis. Chest xray done 08/24/20 reported There is hyperinflation the lungs. No focal infiltrate is seen. Calcified granulomata are noted in the upper lung zones bilaterally. No pneumothorax. Patient is on Brovanna/Budesonide aerosol treatments, S/C Heparin and Protonix. - Patient Problems (1) Acute respiratory failure with hypoxia Current Visit: No Status: Acute Plan to address problem: O2 4 litres via nasal canula. Brovanna/Budesonide aerosol treatments. Albuterol/atrovent aerosol treatments as needed. S/C Heparine. Protonix. (2) COPD exacerbation Current Visit: No Status: Acute Plan to address problem: O2 4 litres via nasal canula. Brovanna/Budesonide aerosol treatments. Albuterol/atrovent aerosol treatments as needed. S/C Heparine. Protonix. PFTs as out patient. (3) ANGELIC (acute kidney injury) Current Visit: No Status: Acute Plan to address problem: Management as per nephrology. (4) GERD (gastroesophageal reflux disease) Current Visit: No Status: Acute Plan to address problem: Patient is on Protonix. (5) HIV (human immunodeficiency virus infection) Current Visit: No Status: Acute Qualifiers: Plan to address problem: Management as per infectious disease consultants. (6) Hypertension Current Visit: No Status: Acute Plan to address problem: Management as per primary care. (7) Cocaine use Current Visit: No Status: Chronic Plan to address problem: Counseled do not use any illegal drugs. (8) Tobacco use Current Visit: No Status: Chronic Plan to address problem: Counseled continue stop smoking. Subjective Date of service: 09/04/20 Principal diagnosis: Chronic Anemia Interval history: 64-year-old male with past medical history of COPD, hypertension, Diabetes,asthma PE was brought to the emergency room because of shortness of breath since this morning. Patient had an IV started by EMS and was given IV mag, Solu-Medrol and an albuterol treatment. EMS states that the patient states his symptoms are worsening. Patient states 5 breathing treatment just prior to arrival and did not work. Shortness of breath better with rest and worse with exertion. Patient states he has a long history of COPD and asthma. Patient states he had multiple visits to the ER for this. Patient denies chest pain. Patient denies fever and chills. Patient complains of dry cough Patient has history of smoking 1 pack x 40 years. Says stopped smoking 2 months ago. History of using Cocaine. Denies alcohol abuse. Says worked in [employer] before he disabled. Patient and has two children.No Known drug allergies Patient awake. Still complaining some shortness of breath. Appears breathing better than before. Patient is on 4 litres O2. O2 saturation 93% Patient afebrile and has leukocytosis. Chest xray done 08/24/20 reported There is hyperinflation the lungs. No focal infiltrate is seen. Calcified granulomata are noted in the upper lung zones bilaterally. No pneumothorax. Patient is on Brovanna/Budesonide aerosol treatments, S/C Heparin and Protonix. Objective Vital Signs - 12hr 09/04/20 09/04/20 09/04/20 02:58 07:50 08:15 Temperature 97.6 F 97.3 F L Pulse Rate 69 80 Pulse Rate [ 76 Bilateral] Respiratory 19 18 Rate Respiratory 23 Rate [Bilateral ] Blood Pressure 118/60 148/95 O2 Sat by Pulse 90 95 Oximetry 09/04/20 09/04/20 09/04/20 08:49 10:00 11:14 Temperature 98.7 F Pulse Rate 73 78 Pulse Rate [ Bilateral] Respiratory 18 Rate Respiratory Rate [Bilateral ] Blood Pressure 140/80 O2 Sat by Pulse 93 99 Oximetry Constitutional: no acute distress, alert, other (Slight increased work of breathing at rest,) Eyes: non-icteric ENT: oropharynx moist Neck: supple, no JVD Effort: mildly labored Ascultation: Bilateral: diminished breath sounds, wheezes, other (Prolonged expiratory phase.) Cardiovascular: regular rate and rhythm, other (S1,S2) Gastrointestinal: normoactive bowel sounds, soft, non-tender Integumentary: normal Extremities: no cyanosis, no edema Neurologic: normal mental status, non-focal exam, pupils equal and round Psychiatric: anxious, depressed CBC and BMP: 09/04/20 05:53 09/03/20 05:02 ABG, PT/INR, D-dimer: ABG ABG pH 7.316 (7.320-7.450) L 08/28/20 11:00 POC ABG pCO2 68.0 mmHg (32.0-48.0) H 08/28/20 11:00 POC ABG pO2 75.4 mmHg (83-108) L 08/28/20 11:00 POC ABG HCO3 33.9 08/28/20 11:00 ABG O2 Saturation 93.6 (0-100) 08/28/20 11:00 Abnormal lab findings: Abnormal Labs 08/24/20 08/24/20 08/25/20 19:29 19:29 07:00 WBC RBC 3.36 L Hgb 9.7 L Hct 28.5 L MCH MCHC RDW 20.6 H Seg Neuts % (Manual) 97.0 H Lymphocytes % (Manual) 1.0 L Seg Neutrophils # Man 10.2 H Lymphocytes # (Manual) 0.1 L ABG pH POC ABG pCO2 POC ABG pO2 ABG Hemoglobin ABG Oxyhemoglobin ABG Glucose Sodium Potassium 3.3 L Carbon Dioxide BUN Glucose 121 H POC Glucose 211 H Calcium 7.6 L Alkaline Phosphatase 154 H Albumin 3.4 L Arterial Blood Glucose Arterial Blood Ionized Calcium Crossmatch 08/25/20 08/25/20 08/25/20 07:21 07:21 12:06 WBC RBC 3.13 L Hgb 8.9 L Hct 26.5 L MCH MCHC RDW 20.6 H Seg Neuts % (Manual) 96.0 H Lymphocytes % (Manual) 3.0 L Seg Neutrophils # Man Lymphocytes # (Manual) 0.2 L ABG pH POC ABG pCO2 POC ABG pO2 ABG Hemoglobin ABG Oxyhemoglobin ABG Glucose Sodium Potassium Carbon Dioxide 31 H BUN Glucose 208 H POC Glucose 162 H Calcium 7.4 L Alkaline Phosphatase Albumin Arterial Blood Glucose Arterial Blood Ionized Calcium Crossmatch 08/25/20 08/25/20 08/26/20 17:01 21:52 05:09 WBC 14.9 H RBC 3.11 L Hgb 8.9 L Hct 26.7 L MCH MCHC RDW 20.6 H Seg Neuts % (Manual) Lymphocytes % (Manual) Seg Neutrophils # Man Lymphocytes # (Manual) ABG pH POC ABG pCO2 POC ABG pO2 ABG Hemoglobin ABG Oxyhemoglobin ABG Glucose Sodium Potassium Carbon Dioxide BUN Glucose POC Glucose 158 H 175 H Calcium Alkaline Phosphatase Albumin Arterial Blood Glucose Arterial Blood Ionized Calcium Crossmatch 08/26/20 08/26/20 08/26/20 05:09 07:21 11:21 WBC RBC Hgb Hct MCH MCHC RDW Seg Neuts % (Manual) Lymphocytes % (Manual) Seg Neutrophils # Man Lymphocytes # (Manual) ABG pH POC ABG pCO2 POC ABG pO2 ABG Hemoglobin ABG Oxyhemoglobin ABG Glucose Sodium Potassium Carbon Dioxide 31 H BUN 21 H Glucose 183 H POC Glucose 149 H 145 H Calcium 7.0 L Alkaline Phosphatase Albumin Arterial Blood Glucose Arterial Blood Ionized Calcium Crossmatch 08/26/20 08/26/20 08/27/20 16:49 21:19 04:41 WBC 11.5 H RBC 2.93 L Hgb 8.0 L Hct 25.2 L MCH 27 L MCHC RDW 21.0 H Seg Neuts % (Manual) Lymphocytes % (Manual) Seg Neutrophils # Man Lymphocytes # (Manual) ABG pH POC ABG pCO2 POC ABG pO2 ABG Hemoglobin ABG Oxyhemoglobin ABG Glucose Sodium Potassium Carbon Dioxide BUN Glucose POC Glucose 177 H 144 H Calcium Alkaline Phosphatase Albumin Arterial Blood Glucose Arterial Blood Ionized Calcium Crossmatch 08/27/20 08/27/20 08/27/20 04:41 07:25 07:30 WBC RBC Hgb Hct MCH MCHC RDW Seg Neuts % (Manual) Lymphocytes % (Manual) Seg Neutrophils # Man Lymphocytes # (Manual) ABG pH POC ABG pCO2 POC ABG pO2 ABG Hemoglobin ABG Oxyhemoglobin ABG Glucose Sodium Potassium Carbon Dioxide 35 H BUN 24 H Glucose 173 H POC Glucose 153 H 143 H Calcium 7.3 L Alkaline Phosphatase Albumin Arterial Blood Glucose Arterial Blood Ionized Calcium Crossmatch 08/27/20 08/27/20 08/27/20 11:27 15:49 21:17 WBC RBC Hgb Hct MCH MCHC RDW Seg Neuts % (Manual) Lymphocytes % (Manual) Seg Neutrophils # Man Lymphocytes # (Manual) ABG pH POC ABG pCO2 POC ABG pO2 ABG Hemoglobin ABG Oxyhemoglobin ABG Glucose Sodium Potassium Carbon Dioxide BUN Glucose POC Glucose 236 H 184 H 144 H Calcium Alkaline Phosphatase Albumin Arterial Blood Glucose Arterial Blood Ionized Calcium Crossmatch 08/28/20 08/28/20 08/28/20 05:55 05:55 07:25 WBC RBC 2.58 L Hgb 7.6 L Hct 22.1 L MCH MCHC 35 H RDW 20.3 H Seg Neuts % (Manual) Lymphocytes % (Manual) Seg Neutrophils # Man Lymphocytes # (Manual) ABG pH POC ABG pCO2 POC ABG pO2 ABG Hemoglobin ABG Oxyhemoglobin ABG Glucose Sodium Potassium 3.5 L Carbon Dioxide BUN 33 H Glucose 183 H POC Glucose 164 H Calcium 6.8 L Alkaline Phosphatase Albumin Arterial Blood Glucose Arterial Blood Ionized Calcium Crossmatch 08/28/20 08/28/20 08/28/20 11:00 12:06 15:28 WBC RBC Hgb Hct MCH MCHC RDW Seg Neuts % (Manual) Lymphocytes % (Manual) Seg Neutrophils # Man Lymphocytes # (Manual) ABG pH 7.316 L POC ABG pCO2 68.0 H POC ABG pO2 75.4 L ABG Hemoglobin 8.3 L ABG Oxyhemoglobin 92.5 L ABG Glucose 302 H Sodium Potassium Carbon Dioxide BUN Glucose POC Glucose 233 H 146 H Calcium Alkaline Phosphatase Albumin Arterial Blood Glucose 302 H Arterial Blood Ionized Calcium 3.8 L Crossmatch 08/28/20 08/29/20 08/29/20 21:34 07:26 12:05 WBC RBC Hgb Hct MCH MCHC RDW Seg Neuts % (Manual) Lymphocytes % (Manual) Seg Neutrophils # Man Lymphocytes # (Manual) ABG pH POC ABG pCO2 POC ABG pO2 ABG Hemoglobin ABG Oxyhemoglobin ABG Glucose Sodium Potassium Carbon Dioxide BUN Glucose POC Glucose 201 H 167 H 253 H Calcium Alkaline Phosphatase Albumin Arterial Blood Glucose Arterial Blood Ionized Calcium Crossmatch 08/29/20 08/29/20 08/30/20 16:32 21:56 07:53 WBC RBC Hgb Hct MCH MCHC RDW Seg Neuts % (Manual) Lymphocytes % (Manual) Seg Neutrophils # Man Lymphocytes # (Manual) ABG pH POC ABG pCO2 POC ABG pO2 ABG Hemoglobin ABG Oxyhemoglobin ABG Glucose Sodium Potassium Carbon Dioxide BUN Glucose POC Glucose 128 H 220 H 286 H Calcium Alkaline Phosphatase Albumin Arterial Blood Glucose Arterial Blood Ionized Calcium Crossmatch 08/30/20 08/30/20 08/30/20 11:29 17:32 22:03 WBC RBC Hgb Hct MCH MCHC RDW Seg Neuts % (Manual) Lymphocytes % (Manual) Seg Neutrophils # Man Lymphocytes # (Manual) ABG pH POC ABG pCO2 POC ABG pO2 ABG Hemoglobin ABG Oxyhemoglobin ABG Glucose Sodium Potassium Carbon Dioxide BUN Glucose POC Glucose 299 H 260 H 196 H Calcium Alkaline Phosphatase Albumin Arterial Blood Glucose Arterial Blood Ionized Calcium Crossmatch 08/31/20 08/31/20 08/31/20 07:41 11:26 16:19 WBC RBC Hgb Hct MCH MCHC RDW Seg Neuts % (Manual) Lymphocytes % (Manual) Seg Neutrophils # Man Lymphocytes # (Manual) ABG pH POC ABG pCO2 POC ABG pO2 ABG Hemoglobin ABG Oxyhemoglobin ABG Glucose Sodium Potassium Carbon Dioxide BUN Glucose POC Glucose 166 H 269 H 265 H Calcium Alkaline Phosphatase Albumin Arterial Blood Glucose Arterial Blood Ionized Calcium Crossmatch 08/31/20 09/01/20 09/01/20 20:44 07:40 11:39 WBC RBC Hgb Hct MCH MCHC RDW Seg Neuts % (Manual) Lymphocytes % (Manual) Seg Neutrophils # Man Lymphocytes # (Manual) ABG pH POC ABG pCO2 POC ABG pO2 ABG Hemoglobin ABG Oxyhemoglobin ABG Glucose Sodium Potassium Carbon Dioxide BUN Glucose POC Glucose 243 H 272 H 320 H Calcium Alkaline Phosphatase Albumin Arterial Blood Glucose Arterial Blood Ionized Calcium Crossmatch 09/01/20 09/01/20 09/02/20 16:16 21:59 08:32 WBC RBC Hgb Hct MCH MCHC RDW Seg Neuts % (Manual) Lymphocytes % (Manual) Seg Neutrophils # Man Lymphocytes # (Manual) ABG pH POC ABG pCO2 POC ABG pO2 ABG Hemoglobin ABG Oxyhemoglobin ABG Glucose Sodium Potassium Carbon Dioxide BUN Glucose POC Glucose 319 H 157 H 195 H Calcium Alkaline Phosphatase Albumin Arterial Blood Glucose Arterial Blood Ionized Calcium Crossmatch 09/02/20 09/02/20 09/03/20 11:44 20:09 05:02 WBC RBC 2.25 L Hgb 6.5 L Hct 19.7 L* MCH MCHC RDW 21.3 H Seg Neuts % (Manual) Lymphocytes % (Manual) Seg Neutrophils # Man Lymphocytes # (Manual) ABG pH POC ABG pCO2 POC ABG pO2 ABG Hemoglobin ABG Oxyhemoglobin ABG Glucose Sodium Potassium Carbon Dioxide BUN Glucose POC Glucose 167 H 214 H Calcium Alkaline Phosphatase Albumin Arterial Blood Glucose Arterial Blood Ionized Calcium Crossmatch 09/03/20 09/03/20 09/03/20 05:02 07:35 09:56 WBC RBC Hgb Hct MCH MCHC RDW Seg Neuts % (Manual) Lymphocytes % (Manual) Seg Neutrophils # Man Lymphocytes # (Manual) ABG pH POC ABG pCO2 POC ABG pO2 ABG Hemoglobin ABG Oxyhemoglobin ABG Glucose Sodium 149 H Potassium 3.3 L Carbon Dioxide 38 H BUN 30 H Glucose 212 H POC Glucose 207 H Calcium 6.7 L Alkaline Phosphatase Albumin Arterial Blood Glucose Arterial Blood Ionized Calcium Crossmatch See Detail 09/03/20 09/03/20 09/04/20 12:05 16:04 05:53 WBC 14.8 H RBC 2.99 L Hgb 8.6 L Hct 26.4 L D MCH MCHC RDW 19.0 H Seg Neuts % (Manual) Lymphocytes % (Manual) Seg Neutrophils # Man Lymphocytes # (Manual) ABG pH POC ABG pCO2 POC ABG pO2 ABG Hemoglobin ABG Oxyhemoglobin ABG Glucose Sodium Potassium Carbon Dioxide BUN Glucose POC Glucose 193 H 174 H Calcium Alkaline Phosphatase Albumin Arterial Blood Glucose Arterial Blood Ionized Calcium Crossmatch 09/04/20 09/04/20 08:33 11:21 WBC RBC Hgb Hct MCH MCHC RDW Seg Neuts % (Manual) Lymphocytes % (Manual) Seg Neutrophils # Man Lymphocytes # (Manual) ABG pH POC ABG pCO2 POC ABG pO2 ABG Hemoglobin ABG Oxyhemoglobin ABG Glucose Sodium Potassium Carbon Dioxide BUN Glucose POC Glucose 222 H 253 H Calcium Alkaline Phosphatase Albumin Arterial Blood Glucose Arterial Blood Ionized Calcium Crossmatch Allied health notes reviewed: RT
--- NOTE | 2020-09-04 15:42 | Progress Note ---
Subjective Date of service: 09/04/20 Principal diagnosis: Chronic Anemia Objective - Constitutional Vitals: Vital Signs - 12hr 09/04/20 09/04/20 09/04/20 07:50 08:15 08:49 Temperature 97.3 F L Pulse Rate 80 Pulse Rate [ 76 Bilateral] Respiratory 18 Rate Respiratory 23 Rate [Bilateral ] Blood Pressure 148/95 O2 Sat by Pulse 95 93 Oximetry 09/04/20 09/04/20 09/04/20 10:00 11:14 14:19 Temperature 98.7 F Pulse Rate 73 78 Pulse Rate [ 76 Bilateral] Respiratory 28 H 18 Rate Respiratory 20 Rate [Bilateral ] Blood Pressure 140/80 O2 Sat by Pulse 93 99 Oximetry - Labs CBC & Chem 7: 09/04/20 05:53 09/03/20 05:02 Labs: Abnormal lab results 09/03/20 09/03/20 09/04/20 Range/Units 09:56 16:04 05:53 WBC 14.8 H (4.5-11.0) K/mm3 RBC 2.99 L (3.65-5.03) M/mm3 Hgb 8.6 L (11.8-15.2) gm/dl Hct 26.4 L D (35.5-45.6) % RDW 19.0 H (13.2-15.2) % POC Glucose 174 H (70-105) mg/dL Crossmatch See Detail 09/04/20 09/04/20 Range/Units 08:33 11:21 WBC (4.5-11.0) K/mm3 RBC (3.65-5.03) M/mm3 Hgb (11.8-15.2) gm/dl Hct (35.5-45.6) % RDW (13.2-15.2) % POC Glucose 222 H 253 H (70-105) mg/dL Crossmatch HEART Score - HEART Score Troponin: Troponin T < 0.010 ng/mL (0.00-0.029) 09/03/20 05:02
--- NOTE | 2020-09-04 17:42 | Electrocardiograph Report ---
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
--- NOTE | 2020-09-04 17:52 | Electrocardiograph Report ---
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
[2020-09-04] MEDS: MIRTAZAPINE 15 MG TAB PO SCH (21:54)
[2020-09-04] MEDS: MONTELUKAST 10 MG TAB PO SCH (21:54)
[2020-09-04] MEDS: ALPRAZolam 0.25 MG TAB PO PRN (21:55)
[2020-09-04] MEDS: INSULIN LISPRO 100 UNIT/ML SUB-Q SCH (22:04)
[2020-09-04] MEDS: oxyCODONE /ACETAMINOPHEN 5-325MG TAB PO PRN (23:41)
[2020-09-05] MEDS: LEVALBUTEROL 0.63 MG/3 ML NEBU IH SCH ×3 (00:10→16:37)
[2020-09-05] MEDS: IPRATROPIUM 0.02% NEBU 2.5 ML IH SCH ×4 (00:10→16:36)
[2020-09-05 01:11] LABS: BUN/Creatinine Ratio 31; Blood Urea Nitrogen 28 mg/dL (9-20); Calcium 6.9 mg/dL (8.4-10.2); Hemolysis Index 3; Iron 58 ug/dL (49-181); Total Iron Binding Capacity 214 mcg/dL (250-450)
[2020-09-05 05:22] LABS: Hematocrit 25.3 % (35.5-45.6); Hemoglobin 8.6 gm/dl (11.8-15.2); Mean Corpuscular HGB Conc 34 % (32-34); Mean Corpuscular Volume 88 fl (84-94); Platelet Count 143 K/mm3 (140-440); Red Blood Count 2.88 M/mm3 (3.65-5.03); Red Cell Distribution Width 19.6 % (13.2-15.2)
[2020-09-05 05:43] LABS: BUN/Creatinine Ratio 27; Blood Urea Nitrogen 24 mg/dL (9-20); Calcium 6.5 mg/dL (8.4-10.2); Hemolysis Index 7
[2020-09-05] MEDS: HEPARIN 5,000 UNIT/1 ML VIAL SUB-Q SCH ×4 (07:43→21:27)
[2020-09-05] MEDS: INSULIN NPH/REGULAR 70/30 INJ SUB-Q SCH ×3 (07:44→17:46)
[2020-09-05] MEDS: ARFORMOTEROL 15 MCG/2 ML NEBU IH SCH ×2 (08:07→20:02)
[2020-09-05] MEDS: BUDESONIDE 0.5 MG/2 ML NEBU IH SCH ×2 (08:08→20:03)
[2020-09-05] MEDS: POLYETHYLENE GLYCOL 3350 17 GM POWDER PO SCH (09:02)
[2020-09-05] MEDS: MULTIVITAMINS ,THERAPEUTIC TAB PO SCH (09:02)
[2020-09-05] MEDS: PANTOPRAZOLE 40 MG TAB PO SCH (09:02)
[2020-09-05] MEDS: carvediloL 6.25 MG TAB PO SCH ×2 (09:02→21:26)
[2020-09-05] MEDS: ASPIRIN EC 81 MG TAB PO SCH (09:02)
[2020-09-05] MEDS: ALPRAZolam 0.25 MG TAB PO PRN ×2 (09:02→21:27)
[2020-09-05] MEDS: CALCIUM CARBONATE 500 MG TAB CHEW PO SCH (09:02)
[2020-09-05] MEDS: FE FUMARATE/FA/MV, MIN COMB#15 CAP (HEMOCYTE PLUS) PO SCH (10:14)
--- NOTE | 2020-09-05 10:20 | Progress Note ---
Assessment and Plan Assessment and plan: --Hypokalemia; Replenished with KCl oral Monitor electrolytes --Paroxysmal atrial fibrillation; Patient is in sinus rhythm today with heart rate in 70s No A. fib last 24 hours Continue beta-blockers, not a candidate for anticoagulation Due to severe anemia requiring blood transfusion Cardiology following --Acute exacerbation of COPD ; Patient is a current smoker Continue aggressive neb treatments with budesonide , arformoterol and DuoNeb solutions Continue empiric antibiotic, oxygen titrate O2 sats to more than 90% BiPAP as needed, home O2 evaluation at discharge pulmonary following Solu-Medrol increased to 60 mg every 6 hours --Acute hypoxic respiratory failure ; requiring BiPAP Continue oxygen via nasal cannula Titrate O2 sats more than 90%, BiPAP as needed Home O2 evaluation prior to discharge --Leukocytosis-improved Suspect secondary to steroids As well as bronchitis/pneumonitis Continue bronchodilators, empiric antibiotics, tapering steroids --Hypertension; moderate control Continue current antihypertensives, as needed medications --Normocytic anemia Hemoglobin is down to 8.0 > 7.6 this morning Closely monitor H&H transfuse as needed --Hypokalemia; Replenished, follow electrolytes --Hyperglycemia -likely secondary to steroids HD A1c 5.8, Accu-Chek sliding scale coverage Long-acting insulin if needed --Ongoing tobacco abuse Patient counseled on tobacco cessation Nicotine patch as needed --history of HIV infection for many years Patient follow-up private ID/health department upon discharge --Mild to moderate malnutrition/hypoalbuminemia Nutrition supplements and supportive care --DVT prophylaxis; Heparin subcu/SCDs Physical therapy/Occupational Therapy evaluation and treatment DC planning per case management Possible SNF placement. We will closely monitor the patient and adjust the management as needed Possible discharge in 1 to 2 days if stable and cleared by pulmonary Plan of care reviewed with the patient and his nurse I also discussed with drop wire aliner Dr. Rahman and the case management Daily Hospital course; 08/29; patient requiring BiPAP, severely short of breath, pulmonary following; Wean as tolerated ; requiring intermittent BiPAP especially at night This morning patient is on 4 L of nasal cannula oxygen Patient already has home oxygen at 3 L Pulmonary following 08/31/2020; patient continues to be in shortness of breath Unable to keep his oxygen, confused at times BiPAP as needed, pulmonary following Recommend placement SNF, Check for [facility] PCR PT OT evaluation 09/01/2020; on 4 L of nasal oxygen Awaiting placement Resumed service; 09/05/2020; I checked with monitor room, patient is in sinus heart rate in 70s No A. fib last 24 hours Awaiting subacute rehab placement History Interval history: I have seen and examined the patient at the bedside Patient's chart and medications reviewed Patient is severely emaciated cachectic Moderate to severe distress Vital signs reviewed Hospitalist Physical - Constitutional Vitals: Temp Pulse Resp BP Pulse Ox 97.8 F 84 16 117/71 98 09/05/20 07:30 09/05/20 08:00 09/05/20 08:00 09/05/20 07:30 09/05/20 08:11 General appearance: Present: no acute distress, well-nourished - EENT Eyes: Present: PERRL, EOM intact - Neck Neck: Present: supple, normal ROM - Respiratory Respiratory effort: normal Respiratory: bilateral: diminished, negative: rales, rhonchi, wheezing - Cardiovascular Rhythm: regular Heart Sounds: Present: S1 & S2 - Extremities Extremities: no ischemia, No edema - Abdominal General gastrointestinal: soft, non-tender, non-distended, normal bowel sounds - Integumentary Integumentary: Present: clear, warm - Psychiatric Psychiatric: appropriate mood/affect, cooperative - Neurologic Neurologic: moves all extremities HEART Score - HEART Score Troponin: Troponin T < 0.010 ng/mL (0.00-0.029) 09/04/20 05:53 Results - Labs CBC & Chem 7: 09/05/20 04:56 09/05/20 04:56 Labs: Laboratory Last Values WBC 7.7 K/mm3 (4.5-11.0) 09/05/20 04:56 RBC 2.88 M/mm3 (3.65-5.03) L 09/05/20 04:56 Hgb 8.6 gm/dl (11.8-15.2) L 09/05/20 04:56 Hct 25.3 % (35.5-45.6) L 09/05/20 04:56 MCV 88 fl (84-94) 09/05/20 04:56 MCH 30 pg (28-32) 09/05/20 04:56 MCHC 34 % (32-34) 09/05/20 04:56 RDW 19.6 % (13.2-15.2) H 09/05/20 04:56 Plt Count 143 K/mm3 (140-440) 09/05/20 04:56 Add Manual Diff Complete 08/25/20 07:21 Total Counted 100 08/25/20 07:21 Seg Neutrophils % Laundry Folder 08/25/20 07:21 Seg Neuts % (Manual) 96.0 % (40.0-70.0) H 08/25/20 07:21 Lymphocytes % (Manual) 3.0 % (13.4-35.0) L 08/25/20 07:21 Monocytes % (Manual) 2.0 % (0.0-7.3) 08/24/20 19:29 Myelocytes % 1.0 % 08/25/20 07:21 Nucleated RBC % Not Reportable 08/25/20 07:21 Seg Neutrophils # Man 4.8 K/mm3 (1.8-7.7) 08/25/20 07:21 Band Neutrophils # 0.0 K/mm3 08/25/20 07:21 Lymphocytes # (Manual) 0.2 K/mm3 (1.2-5.4) L 08/25/20 07:21 Abs React Lymphs (Man) 0.0 K/mm3 08/25/20 07:21 Monocytes # (Manual) 0.0 K/mm3 (0.0-0.8) 08/25/20 07:21 Eosinophils # (Manual) 0.0 K/mm3 (0.0-0.4) 08/25/20 07:21 Basophils # (Manual) 0.0 K/mm3 (0.0-0.1) 08/25/20 07:21 Metamyelocytes # 0.0 K/mm3 08/25/20 07:21 Myelocytes # 0.1 K/mm3 08/25/20 07:21 Promyelocytes # 0.0 K/mm3 08/25/20 07:21 Blast Cells # 0.0 K/mm3 08/25/20 07:21 WBC Morphology Not Reportable 08/25/20 07:21 Hypersegmented Neuts Not Reportable 08/25/20 07:21 Hyposegmented Neuts Not Reportable 08/25/20 07:21 Hypogranular Neuts Not Reportable 08/25/20 07:21 Smudge Cells Not Reportable 08/25/20 07:21 Toxic Granulation Not Reportable 08/25/20 07:21 Toxic Vacuolation Not Reportable 08/25/20 07:21 Dohle Bodies Not Reportable 08/25/20 07:21 Pelger-Huet Anomaly Not Reportable 08/25/20 07:21 Ruma Rods Not Reportable 08/25/20 07:21 Platelet Estimate Consistent w auto 08/25/20 07:21 Clumped Platelets Not Reportable 08/25/20 07:21 Plt Clumps, EDTA Not Reportable 08/25/20 07:21 Large Platelets Not Reportable 08/25/20 07:21 Giant Platelets Not Reportable 08/25/20 07:21 Platelet Satelliting Not Reportable 08/25/20 07:21 Plt Morphology Comment Not Reportable 08/25/20 07:21 RBC Morphology Not Reportable 08/25/20 07:21 Dimorphic RBCs Not Reportable 08/25/20 07:21 Polychromasia Not Reportable 08/25/20 07:21 Hypochromasia 1+ 08/25/20 07:21 Poikilocytosis 1+ 08/25/20 07:21 Anisocytosis 1+ 08/25/20 07:21 Microcytosis Not Reportable 08/25/20 07:21 Macrocytosis Not Reportable 08/25/20 07:21 Spherocytes Not Reportable 08/25/20 07:21 Pappenheimer Bodies Not Reportable 08/25/20 07:21 Sickle Cells Not Reportable 08/25/20 07:21 Target Cells Not Reportable 08/25/20 07:21 Tear Drop Cells Not Reportable 08/25/20 07:21 Ovalocytes 1+ 08/25/20 07:21 Helmet Cells Not Reportable 08/25/20 07:21 David-Naalehu Bodies Not Reportable 08/25/20 07:21 Raymond Rings Not Reportable 08/25/20 07:21 Don Cells Not Reportable 08/25/20 07:21 Bite Cells Not Reportable 08/25/20 07:21 Crenated Cell Not Reportable 08/25/20 07:21 Elliptocytes 2+ 08/25/20 07:21 Acanthocytes (Spur) 1+ 08/25/20 07:21 Rouleaux Not Reportable 08/25/20 07:21 Hemoglobin C Crystals Not Reportable 08/25/20 07:21 Schistocytes Not Reportable 08/25/20 07:21 Malaria parasites Not Reportable 08/25/20 07:21 Ric Bodies Not Reportable 08/25/20 07:21 Hem Pathologist Commnt No 08/25/20 07:21 ABG pH 7.316 (7.320-7.450) L 08/28/20 11:00 POC ABG pCO2 68.0 mmHg (32.0-48.0) H 08/28/20 11:00 POC ABG pO2 75.4 mmHg (83-108) L 08/28/20 11:00 POC ABG HCO3 33.9 08/28/20 11:00 ABG O2 Saturation 93.6 (0-100) 08/28/20 11:00 POC ABG Base Excess 6.6 08/28/20 11:00 ABG Hemoglobin 8.3 (12.0-17.5) L 08/28/20 11:00 ABG Oxyhemoglobin 92.5 (94-98) L 08/28/20 11:00 ABG Methemoglobin 0.3 (0.0-1.5) 08/28/20 11:00 ABG Sodium 143.2 mmol/L (136.0-145.0) 08/28/20 11:00 ABG Potassium 3.8 mmol/L (3.40-4.50) 08/28/20 11:00 ABG Chloride 103.0 mmol/L (98-107) 08/28/20 11:00 ABG Glucose 302 mg/dL (65-95) H 08/28/20 11:00 Carboxyhemoglobin 0.9 (0.5-1.5) 08/28/20 11:00 FiO2 % 40.0 08/28/20 11:00 Sodium 149 mmol/L (137-145) H 09/05/20 04:56 Potassium 3.1 mmol/L (3.6-5.0) L 09/05/20 04:56 Chloride 99.8 mmol/L (98-107) 09/05/20 04:56 Carbon Dioxide 48 mmol/L (22-30) H* D 09/05/20 04:56 Anion Gap 4 mmol/L 09/05/20 04:56 BUN 24 mg/dL (9-20) H 09/05/20 04:56 Creatinine 0.9 mg/dL (0.8-1.3) 09/05/20 04:56 Estimated GFR > 60 ml/min 09/05/20 04:56 BUN/Creatinine Ratio 27 % 09/05/20 04:56 Glucose 142 mg/dL (75-100) H 09/05/20 04:56 POC Glucose 131 mg/dL (70-105) H 09/05/20 07:31 Hemoglobin A1c 5.8 % (4-6) 08/25/20 07:27 Calcium 6.5 mg/dL (8.4-10.2) L 09/05/20 04:56 Iron 58 ug/dL (49-181) 09/04/20 05:53 TIBC 214 mcg/dL (250-450) L 09/04/20 05:53 Total Bilirubin 0.40 mg/dL (0.1-1.2) 08/24/20 19:29 AST 21 units/L (5-40) 08/24/20 19:29 ALT 36 units/L (7-56) 08/24/20 19:29 Alkaline Phosphatase 154 units/L (35-129) H 08/24/20 19:29 Troponin T < 0.010 ng/mL (0.00-0.029) 09/04/20 05:53 Total Protein 6.5 g/dL (6.3-8.2) 08/24/20 19:29 Albumin 3.4 g/dL (3.9-5) L 08/24/20 19:29 Albumin/Globulin Ratio 1.1 % 08/24/20 19:29 Arterial Blood Glucose 302 mg/dL (65-95) H 08/28/20 11:00 Arterial Blood Ionized Calcium 3.8 mg/dL (4.6-5.3) L 08/28/20 11:00 Coronavirus (PCR) Negative (Negative) 09/01/20 Unknown Blood Type A POSITIVE 09/03/20 09:56 Antibody Screen Negative 09/03/20 09:56 Crossmatch See Detail 09/03/20 09:56 [place]/IV: Voiding Method Urinal Active Medications - Current Medications Current Medications: Generic Name Dose Route Start Last Admin Trade Name Freq PRN Reason Stop Dose Admin Acetaminophen 650 mg 08/24/20 22:12 Acetaminophen 325 Mg Tab PO Q4H PRN Pain MILD(1-3)/Fever >100.5/KOENIG Alprazolam 0.25 mg 08/30/20 11:30 09/05/20 09:02 Alprazolam 0.25 Mg Tab PO 0.25 mg Q8H PRN Administration Anxiety Arformoterol Tartrate 15 mcg 08/25/20 20:00 09/05/20 08:07 Arformoterol 15 Mcg/2 Ml Nebu IH 15 mcg Q12HRT NADIA Administration Aspirin 81 mg 08/25/20 10:00 09/05/20 09:02 Aspirin Ec 81 Mg Tab PO 81 mg QDAY NADIA Administration Atorvastatin Calcium 40 mg 08/25/20 22:00 09/04/20 21:55 Atorvastatin 40 Mg Tab PO 40 mg QHS NADIA Administration Budesonide 0.5 mg 08/25/20 08:00 09/05/20 08:08 Budesonide 0.5 Mg/2 Ml Nebu IH 0.5 mg Q12HRT NADIA Administration Calcium Carbonate/Glycine 500 mg 08/25/20 10:00 09/05/20 09:02 Calcium Carbonate 500 Mg Tab Chew PO 500 mg QDAY NADIA Administration Carvedilol 6.25 mg 09/02/20 12:00 09/05/20 09:02 Carvedilol 6.25 Mg Tab PO 6.25 mg BID NADIA Administration Guaifenesin 400 mg 08/29/20 13:00 08/30/20 05:33 Guaifenesin 200 Mg Tab PO 400 mg Q4HR PRN Administration Cough Heparin Sodium (Porcine) 5,000 unit 08/25/20 06:00 09/05/20 07:44 Heparin 5,000 Unit/1 Ml Vial SUB-Q Not Given Q8HR [facility] Hydralazine HCl 10 mg 08/24/20 22:14 08/31/20 13:40 Hydralazine 20 Mg/1 Ml Inj IV 10 mg Q6H PRN Administration SBP>/=160; DBP >/=100 Insulin Human Isoph/Insulin Regular 10 unit 09/01/20 17:00 09/05/20 09:56 Insulin Nph/Regular 70/30 Inj SUB-Q Not Given BIDDIAB [facility] Insulin Human Lispro 0 unit 08/25/20 22:00 09/04/20 22:04 Insulin Lispro 100 Unit/Ml SUB-Q Not Given QHS [facility] Protocol Ipratropium [place] 0.5 mg 09/02/20 16:00 09/05/20 08:08 Ipratropium 0.02% Nebu 2.5 Ml IH 0.5 mg Q8HRT NADIA Administration Levalbuterol HCl 0.63 mg 09/01/20 18:00 09/05/20 00:10 Levalbuterol 0.63 Mg/3 Ml Nebu IH Not Given Q8HRT NADIA Mirtazapine 7.5 mg 08/25/20 22:00 09/04/20 21:54 Mirtazapine 15 Mg Tab PO 7.5 mg QHS NADIA Administration Montelukast Sodium 10 mg 08/25/20 22:00 09/04/20 21:54 Montelukast 10 Mg Tab PO 10 mg QHS NADIA Administration Multivitamins 1 each 09/04/20 10:00 09/05/20 09:02 Multivitamins ,Therapeutic Tab PO 1 each QDAY NADIA Administration Multivitamins/Iron 1 each 09/04/20 10:00 09/05/20 10:14 Fe Fumarate/Fa/Mv, Min Comb#15 Cap (Hemocyte Plus) PO 1 each QDAY NADIA Administration Ondansetron HCl 4 mg 08/24/20 22:12 Ondansetron 4 Mg/2 Ml Inj IV Q8H PRN Nausea And Vomiting Oxycodone/Acetaminophen 1 tab 08/24/20 22:23 09/04/20 23:41 Oxycodone /Acetaminophen 5-325mg Tab PO 1 tab BID PRN Administration Pain , Severe (7-10) Pantoprazole Sodium 40 mg 08/25/20 10:00 09/05/20 09:02 Pantoprazole 40 Mg Tab PO 40 mg QDAY NADIA Administration Polyethylene Glycol 17 gm 08/28/20 10:00 09/05/20 09:02 Polyethylene Glycol 3350 17 Gm Powder PO 17 gm QDAY NADIA Administration Sodium Chloride 10 ml 08/25/20 10:00 09/05/20 10:14 Sodium Chloride 0.9% 10 Ml Flush Syringe IV Not Given BID NADIA Sodium Chloride 10 ml 08/24/20 22:12 Sodium Chloride 0.9% 10 Ml Flush Syringe IV PRN PRN LINE FLUSH Tramadol HCl 50 mg 08/24/20 22:23 09/01/20 05:05 Tramadol 50 Mg Tab PO 50 mg Q6HR PRN Administration Pain, Moderate (4-6) Nutrition/Malnutrition Assess - Dietary Evaluation Nutrition/Malnutrition Findings: Nutrition Notes Start: 08/25/20 08:25 Freq: Status: Active Protocol: Document 09/04/20 12:40 MK (Rec: 09/04/20 12:43 MK [id number]) Nutrition Notes Initial or Follow up Reassessment Current Diagnosis COPD,Hypertension,Respiratory Failure Other Pertinent Diagnosis HIV Current Diet Cardiac, consistent CHO Labs/Tests POC BG 253-90 Pertinent Medications MVI Height 5 ft 5 in Weight 52.4 kg [place] Body Weight (kg) 61.81 BMI 19.2 Weight change and time frame Wt change noted, will follow trends Weight Status Underweight Subjective/Other Information FU for intakes. Pt ate a few bites of breakfast and sips of ONS. Percent of energy/protein needs met: Negigible Burn Absent Trauma Absent Current % PO Negligible Minimum of two criteria No Energy Intake (non-severe) <75% Estimated Energy Requirement >7 days #1 Nutrition Diagnosis Inadequate oral intake As Evidenced by Signs and Symptoms pt eating <10% of meals Diagnosis Progress(for reassessment Worsened documentation) Is patient on ventilator? No Is Patient Ambulatory and/or Out of Bed No REE-([facility]-confined to bed) [phone] Calculation Used for Recommendations [facility] Additional Notes Protein: (1-1.2g/kg) 60-72g Fluid: 1 ml/kcal Nutrition Intervention Change Diet Order: Continue Add Supplement/Snack (indicate name/kcal Glucerna BID /protein ) Provides kCal: 440 Provides Protein (gm) 20 Goal #1 Meet at least 75% of protein and energy needs via PO and ONS intakes Anticipated Discharge Needs: Cardiac Follow-Up By: 09/06/20 Additional Comments FU for intakes and ONS tolerance
--- NOTE | 2020-09-05 10:34 | Progress Note ---
Assessment and Plan 64-year-old male with past medical history of COPD, hypertension, Diabetes,asthma PE was brought to the emergency room because of shortness of breath since this morning. Patient had an IV started by EMS and was given IV mag, Solu-Medrol and an albuterol treatment. EMS states that the patient states his symptoms are worsening. Patient states 5 breathing treatment just prior to arrival and did not work. Shortness of breath better with rest and worse with exertion. Patient states he has a long history of COPD and asthma. Patient states he had multiple visits to the ER for this. Patient denies chest pain. Patient denies fever and chills. Patient complains of dry cough Patient has history of smoking 1 pack x 40 years. Says stopped smoking 2 months ago. History of using Cocaine. Denies alcohol abuse. Says worked in [employer] field before he disabled. Patient and has two children.No Known drug allergies Patient sleeping on 4 litres O2. O2 saturation 98%. No Acute respiratory distress at rest. Patient afebrile and has no leukocytosis. Chest xray done 08/24/20 reported There is hyperinflation the lungs. No focal infiltrate is seen. Calcified granulomata are noted in the upper lung zones bilaterally. No pneumo thorax. Patient is on Brovanna/Budesonide aerosol treatments, S/C Heparin and Protonix. - Patient Problems (1) Acute respiratory failure with hypoxia Current Visit: No Status: Acute Plan to address problem: O2 4 litres via nasal canula. Brovanna/Budesonide aerosol treatments. Albuterol/atrovent aerosol treatments as needed. S/C Heparine. Protonix. (2) COPD exacerbation Current Visit: No Status: Acute Plan to address problem: O2 4 litres via nasal canula. Brovanna/Budesonide aerosol treatments. Albuterol/atrovent aerosol treatments as needed. S/C Heparine. Protonix. PFTs as out patient. (3) ANGELIC (acute kidney injury) Current Visit: No Status: Acute Plan to address problem: Management as per nephrology. (4) GERD (gastroesophageal reflux disease) Current Visit: No Status: Acute Plan to address problem: Patient is on Protonix. (5) HIV (human immunodeficiency virus infection) Current Visit: No Status: Acute Qualifiers: Plan to address problem: Management as per infectious disease consultants. (6) Hypertension Current Visit: No Status: Acute Plan to address problem: Management as per primary care. (7) Cocaine use Current Visit: No Status: Chronic Plan to address problem: Counseled do not use any illegal drugs. (8) Tobacco use Current Visit: No Status: Chronic Plan to address problem: Counseled continue stop smoking. Subjective Date of service: 09/05/20 Principal diagnosis: Chronic Anemia Interval history: 64-year-old male with past medical history of COPD, hypertension, Diabetes,asthma PE was brought to the emergency room because of shortness of breath since this morning. Patient had an IV started by EMS and was given IV mag, Solu-Medrol and an albuterol treatment. EMS states that the patient states his symptoms are worsening. Patient states 5 breathing treatment just prior to arrival and did not work. Shortness of breath better with rest and worse with exertion. Patient states he has a long history of COPD and asthma. Patient states he had multiple visits to the ER for this. Patient denies chest pain. Patient denies fever and chills. Patient complains of dry cough Patient has history of smoking 1 pack x 40 years. Says stopped smoking 2 months ago. History of using Cocaine. Denies alcohol abuse. Says worked in [employer] before he disabled. Patient and has two children.No Known drug allergies Patient sleeping on 4 litres O2. O2 saturation 98%. No Acute respiratory distress at rest. Patient afebrile and has no leukocytosis. Chest xray done 08/24/20 reported There is hyperinflation the lungs. No focal infiltrate is seen. Calcified granulomata are noted in the upper lung zones bilaterally. No pneumothorax. Patient is on Brovanna/Budesonide aerosol treatments, S/C Heparin and Protonix. Objective Vital Signs - 12hr 09/04/20 09/05/20 09/05/20 23:04 04:22 07:00 Temperature 97.9 F 98.0 F Pulse Rate 76 75 Pulse Rate [ Bilateral] Pulse Rate [ Right Radial] Respiratory 20 20 Rate Respiratory Rate [Bilateral ] Blood Pressure 114/62 125/74 O2 Sat by Pulse 93 94 98 Oximetry 09/05/20 09/05/20 09/05/20 07:30 07:57 08:00 Temperature 97.8 F Pulse Rate 71 Pulse Rate [ 84 Bilateral] Pulse Rate [ 77 Right Radial] Respiratory 16 20 Rate Respiratory 16 Rate [Bilateral ] Blood Pressure 117/71 O2 Sat by Pulse 98 99 Oximetry 09/05/20 08:11 Temperature Pulse Rate Pulse Rate [ Bilateral] Pulse Rate [ Right Radial] Respiratory Rate Respiratory Rate [Bilateral ] Blood Pressure O2 Sat by Pulse 98 Oximetry Constitutional: no acute distress, alert, other (Slight increased work of breathing at rest,) Eyes: non-icteric ENT: oropharynx moist Neck: supple, no JVD Effort: mildly labored Ascultation: Bilateral: diminished breath sounds, wheezes, other (Prolonged expiratory phase.) Cardiovascular: regular rate and rhythm, other (S1,S2) Gastrointestinal: normoactive bowel sounds, soft, non-tender Integumentary: normal Extremities: no cyanosis, no edema Neurologic: normal mental status, non-focal exam, pupils equal and round Psychiatric: anxious, depressed CBC and BMP: 09/05/20 04:56 09/05/20 04:56 ABG, PT/INR, D-dimer: ABG ABG pH 7.316 (7.320-7.450) L 08/28/20 11:00 POC ABG pCO2 68.0 mmHg (32.0-48.0) H 08/28/20 11:00 POC ABG pO2 75.4 mmHg (83-108) L 08/28/20 11:00 POC ABG HCO3 33.9 08/28/20 11:00 ABG O2 Saturation 93.6 (0-100) 08/28/20 11:00 Abnormal lab findings: Abnormal Labs 08/24/20 08/24/20 08/25/20 19:29 19:29 07:00 WBC RBC 3.36 L Hgb 9.7 L Hct 28.5 L MCH MCHC RDW 20.6 H Seg Neuts % (Manual) 97.0 H Lymphocytes % (Manual) 1.0 L Seg Neutrophils # Man 10.2 H Lymphocytes # (Manual) 0.1 L ABG pH POC ABG pCO2 POC ABG pO2 ABG Hemoglobin ABG Oxyhemoglobin ABG Glucose Sodium Potassium 3.3 L Carbon Dioxide BUN Glucose 121 H POC Glucose 211 H Calcium 7.6 L TIBC Alkaline Phosphatase 154 H Albumin 3.4 L Arterial Blood Glucose Arterial Blood Ionized Calcium Crossmatch 08/25/20 08/25/20 08/25/20 07:21 07:21 12:06 WBC RBC 3.13 L Hgb 8.9 L Hct 26.5 L MCH MCHC RDW 20.6 H Seg Neuts % (Manual) 96.0 H Lymphocytes % (Manual) 3.0 L Seg Neutrophils # Man Lymphocytes # (Manual) 0.2 L ABG pH POC ABG pCO2 POC ABG pO2 ABG Hemoglobin ABG Oxyhemoglobin ABG Glucose Sodium Potassium Carbon Dioxide 31 H BUN Glucose 208 H POC Glucose 162 H Calcium 7.4 L TIBC Alkaline Phosphatase Albumin Arterial Blood Glucose Arterial Blood Ionized Calcium Crossmatch 08/25/20 08/25/20 08/26/20 17:01 21:52 05:09 WBC 14.9 H RBC 3.11 L Hgb 8.9 L Hct 26.7 L MCH MCHC RDW 20.6 H Seg Neuts % (Manual) Lymphocytes % (Manual) Seg Neutrophils # Man Lymphocytes # (Manual) ABG pH POC ABG pCO2 POC ABG pO2 ABG Hemoglobin ABG Oxyhemoglobin ABG Glucose Sodium Potassium Carbon Dioxide BUN Glucose POC Glucose 158 H 175 H Calcium TIBC Alkaline Phosphatase Albumin Arterial Blood Glucose Arterial Blood Ionized Calcium Crossmatch 08/26/20 08/26/20 08/26/20 05:09 07:21 11:21 WBC RBC Hgb Hct MCH MCHC RDW Seg Neuts % (Manual) Lymphocytes % (Manual) Seg Neutrophils # Man Lymphocytes # (Manual) ABG pH POC ABG pCO2 POC ABG pO2 ABG Hemoglobin ABG Oxyhemoglobin ABG Glucose Sodium Potassium Carbon Dioxide 31 H BUN 21 H Glucose 183 H POC Glucose 149 H 145 H Calcium 7.0 L TIBC Alkaline Phosphatase Albumin Arterial Blood Glucose Arterial Blood Ionized Calcium Crossmatch 08/26/20 08/26/20 08/27/20 16:49 21:19 04:41 WBC 11.5 H RBC 2.93 L Hgb 8.0 L Hct 25.2 L MCH 27 L MCHC RDW 21.0 H Seg Neuts % (Manual) Lymphocytes % (Manual) Seg Neutrophils # Man Lymphocytes # (Manual) ABG pH POC ABG pCO2 POC ABG pO2 ABG Hemoglobin ABG Oxyhemoglobin ABG Glucose Sodium Potassium Carbon Dioxide BUN Glucose POC Glucose 177 H 144 H Calcium TIBC Alkaline Phosphatase Albumin Arterial Blood Glucose Arterial Blood Ionized Calcium Crossmatch 08/27/20 08/27/20 08/27/20 04:41 07:25 07:30 WBC RBC Hgb Hct MCH MCHC RDW Seg Neuts % (Manual) Lymphocytes % (Manual) Seg Neutrophils # Man Lymphocytes # (Manual) ABG pH POC ABG pCO2 POC ABG pO2 ABG Hemoglobin ABG Oxyhemoglobin ABG Glucose Sodium Potassium Carbon Dioxide 35 H BUN 24 H Glucose 173 H POC Glucose 153 H 143 H Calcium 7.3 L TIBC Alkaline Phosphatase Albumin Arterial Blood Glucose Arterial Blood Ionized Calcium Crossmatch 08/27/20 08/27/20 08/27/20 11:27 15:49 21:17 WBC RBC Hgb Hct MCH MCHC RDW Seg Neuts % (Manual) Lymphocytes % (Manual) Seg Neutrophils # Man Lymphocytes # (Manual) ABG pH POC ABG pCO2 POC ABG pO2 ABG Hemoglobin ABG Oxyhemoglobin ABG Glucose Sodium Potassium Carbon Dioxide BUN Glucose POC Glucose 236 H 184 H 144 H Calcium TIBC Alkaline Phosphatase Albumin Arterial Blood Glucose Arterial Blood Ionized Calcium Crossmatch 08/28/20 08/28/20 08/28/20 05:55 05:55 07:25 WBC RBC 2.58 L Hgb 7.6 L Hct 22.1 L MCH MCHC 35 H RDW 20.3 H Seg Neuts % (Manual) Lymphocytes % (Manual) Seg Neutrophils # Man Lymphocytes # (Manual) ABG pH POC ABG pCO2 POC ABG pO2 ABG Hemoglobin ABG Oxyhemoglobin ABG Glucose Sodium Potassium 3.5 L Carbon Dioxide BUN 33 H Glucose 183 H POC Glucose 164 H Calcium 6.8 L TIBC Alkaline Phosphatase Albumin Arterial Blood Glucose Arterial Blood Ionized Calcium Crossmatch 08/28/20 08/28/20 08/28/20 11:00 12:06 15:28 WBC RBC Hgb Hct MCH MCHC RDW Seg Neuts % (Manual) Lymphocytes % (Manual) Seg Neutrophils # Man Lymphocytes # (Manual) ABG pH 7.316 L POC ABG pCO2 68.0 H POC ABG pO2 75.4 L ABG Hemoglobin 8.3 L ABG Oxyhemoglobin 92.5 L ABG Glucose 302 H Sodium Potassium Carbon Dioxide BUN Glucose POC Glucose 233 H 146 H Calcium TIBC Alkaline Phosphatase Albumin Arterial Blood Glucose 302 H Arterial Blood Ionized Calcium 3.8 L Crossmatch 08/28/20 08/29/20 08/29/20 21:34 07:26 12:05 WBC RBC Hgb Hct MCH MCHC RDW Seg Neuts % (Manual) Lymphocytes % (Manual) Seg Neutrophils # Man Lymphocytes # (Manual) ABG pH POC ABG pCO2 POC ABG pO2 ABG Hemoglobin ABG Oxyhemoglobin ABG Glucose Sodium Potassium Carbon Dioxide BUN Glucose POC Glucose 201 H 167 H 253 H Calcium TIBC Alkaline Phosphatase Albumin Arterial Blood Glucose Arterial Blood Ionized Calcium Crossmatch 08/29/20 08/29/20 08/30/20 16:32 21:56 07:53 WBC RBC Hgb Hct MCH MCHC RDW Seg Neuts % (Manual) Lymphocytes % (Manual) Seg Neutrophils # Man Lymphocytes # (Manual) ABG pH POC ABG pCO2 POC ABG pO2 ABG Hemoglobin ABG Oxyhemoglobin ABG Glucose Sodium Potassium Carbon Dioxide BUN Glucose POC Glucose 128 H 220 H 286 H Calcium TIBC Alkaline Phosphatase Albumin Arterial Blood Glucose Arterial Blood Ionized Calcium Crossmatch 08/30/20 08/30/20 08/30/20 11:29 17:32 22:03 WBC RBC Hgb Hct MCH MCHC RDW Seg Neuts % (Manual) Lymphocytes % (Manual) Seg Neutrophils # Man Lymphocytes # (Manual) ABG pH POC ABG pCO2 POC ABG pO2 ABG Hemoglobin ABG Oxyhemoglobin ABG Glucose Sodium Potassium Carbon Dioxide BUN Glucose POC Glucose 299 H 260 H 196 H Calcium TIBC Alkaline Phosphatase Albumin Arterial Blood Glucose Arterial Blood Ionized Calcium Crossmatch 08/31/20 08/31/20 08/31/20 07:41 11:26 16:19 WBC RBC Hgb Hct MCH MCHC RDW Seg Neuts % (Manual) Lymphocytes % (Manual) Seg Neutrophils # Man Lymphocytes # (Manual) ABG pH POC ABG pCO2 POC ABG pO2 ABG Hemoglobin ABG Oxyhemoglobin ABG Glucose Sodium Potassium Carbon Dioxide BUN Glucose POC Glucose 166 H 269 H 265 H Calcium TIBC Alkaline Phosphatase Albumin Arterial Blood Glucose Arterial Blood Ionized Calcium Crossmatch 08/31/20 09/01/20 09/01/20 20:44 07:40 11:39 WBC RBC Hgb Hct MCH MCHC RDW Seg Neuts % (Manual) Lymphocytes % (Manual) Seg Neutrophils # Man Lymphocytes # (Manual) ABG pH POC ABG pCO2 POC ABG pO2 ABG Hemoglobin ABG Oxyhemoglobin ABG Glucose Sodium Potassium Carbon Dioxide BUN Glucose POC Glucose 243 H 272 H 320 H Calcium TIBC Alkaline Phosphatase Albumin Arterial Blood Glucose Arterial Blood Ionized Calcium Crossmatch 09/01/20 09/01/20 09/02/20 16:16 21:59 08:32 WBC RBC Hgb Hct MCH MCHC RDW Seg Neuts % (Manual) Lymphocytes % (Manual) Seg Neutrophils # Man Lymphocytes # (Manual) ABG pH POC ABG pCO2 POC ABG pO2 ABG Hemoglobin ABG Oxyhemoglobin ABG Glucose Sodium Potassium Carbon Dioxide BUN Glucose POC Glucose 319 H 157 H 195 H Calcium TIBC Alkaline Phosphatase Albumin Arterial Blood Glucose Arterial Blood Ionized Calcium Crossmatch 09/02/20 09/02/20 09/03/20 11:44 20:09 05:02 WBC RBC 2.25 L Hgb 6.5 L Hct 19.7 L* MCH MCHC RDW 21.3 H Seg Neuts % (Manual) Lymphocytes % (Manual) Seg Neutrophils # Man Lymphocytes # (Manual) ABG pH POC ABG pCO2 POC ABG pO2 ABG Hemoglobin ABG Oxyhemoglobin ABG Glucose Sodium Potassium Carbon Dioxide BUN Glucose POC Glucose 167 H 214 H Calcium TIBC Alkaline Phosphatase Albumin Arterial Blood Glucose Arterial Blood Ionized Calcium Crossmatch 09/03/20 09/03/20 09/03/20 05:02 07:35 09:56 WBC RBC Hgb Hct MCH MCHC RDW Seg Neuts % (Manual) Lymphocytes % (Manual) Seg Neutrophils # Man Lymphocytes # (Manual) ABG pH POC ABG pCO2 POC ABG pO2 ABG Hemoglobin ABG Oxyhemoglobin ABG Glucose Sodium 149 H Potassium 3.3 L Carbon Dioxide 38 H BUN 30 H Glucose 212 H POC Glucose 207 H Calcium 6.7 L TIBC Alkaline Phosphatase Albumin Arterial Blood Glucose Arterial Blood Ionized Calcium Crossmatch See Detail 09/03/20 09/03/20 09/04/20 12:05 16:04 05:53 WBC 14.8 H RBC 2.99 L Hgb 8.6 L Hct 26.4 L D MCH MCHC RDW 19.0 H Seg Neuts % (Manual) Lymphocytes % (Manual) Seg Neutrophils # Man Lymphocytes # (Manual) ABG pH POC ABG pCO2 POC ABG pO2 ABG Hemoglobin ABG Oxyhemoglobin ABG Glucose Sodium Potassium Carbon Dioxide BUN Glucose POC Glucose 193 H 174 H Calcium TIBC Alkaline Phosphatase Albumin Arterial Blood Glucose Arterial Blood Ionized Calcium Crossmatch 09/04/20 09/04/20 09/04/20 05:53 08:33 11:21 WBC RBC Hgb Hct MCH MCHC RDW Seg Neuts % (Manual) Lymphocytes % (Manual) Seg Neutrophils # Man Lymphocytes # (Manual) ABG pH POC ABG pCO2 POC ABG pO2 ABG Hemoglobin ABG Oxyhemoglobin ABG Glucose Sodium 149 H Potassium Carbon Dioxide 39 H BUN 28 H Glucose 175 H POC Glucose 222 H 253 H Calcium 6.9 L TIBC 214 L Alkaline Phosphatase Albumin Arterial Blood Glucose Arterial Blood Ionized Calcium Crossmatch 09/04/20 09/05/20 09/05/20 15:42 04:56 04:56 WBC RBC 2.88 L Hgb 8.6 L Hct 25.3 L MCH MCHC RDW 19.6 H Seg Neuts % (Manual) Lymphocytes % (Manual) Seg Neutrophils # Man Lymphocytes # (Manual) ABG pH POC ABG pCO2 POC ABG pO2 ABG Hemoglobin ABG Oxyhemoglobin ABG Glucose Sodium 149 H Potassium 3.1 L Carbon Dioxide 48 H* D BUN 24 H Glucose 142 H POC Glucose 240 H Calcium 6.5 L TIBC Alkaline Phosphatase Albumin Arterial Blood Glucose Arterial Blood Ionized Calcium Crossmatch 09/05/20 07:31 WBC RBC Hgb Hct MCH MCHC RDW Seg Neuts % (Manual) Lymphocytes % (Manual) Seg Neutrophils # Man Lymphocytes # (Manual) ABG pH POC ABG pCO2 POC ABG pO2 ABG Hemoglobin ABG Oxyhemoglobin ABG Glucose Sodium Potassium Carbon Dioxide BUN Glucose POC Glucose 131 H Calcium TIBC Alkaline Phosphatase Albumin Arterial Blood Glucose Arterial Blood Ionized Calcium Crossmatch Allied health notes reviewed: RT
[2020-09-05] MEDS ORDERED: POTASSIUM CHLORIDE ER 20 MEQ TAB PO SCH (11:00)
[2020-09-05] MEDS: oxyCODONE /ACETAMINOPHEN 5-325MG TAB PO PRN (14:53)
[2020-09-05] MEDS ORDERED: POTASSIUM CHLORIDE 20 MEQ PACKET FEEDTUBE NR (15:00)
[2020-09-05] MEDS: MONTELUKAST 10 MG TAB PO SCH (21:27)
[2020-09-05] MEDS: MIRTAZAPINE 15 MG TAB PO SCH (21:27)
[2020-09-05] MEDS: INSULIN LISPRO 100 UNIT/ML SUB-Q SCH (22:10)
[2020-09-06] MEDS: IPRATROPIUM 0.02% NEBU 2.5 ML IH SCH ×3 (02:58→17:23)
[2020-09-06] MEDS: LEVALBUTEROL 0.63 MG/3 ML NEBU IH SCH ×3 (02:59→17:23)
[2020-09-06] MEDS: HEPARIN 5,000 UNIT/1 ML VIAL SUB-Q SCH ×3 (05:28→21:35)
[2020-09-06 05:58] LABS: BUN/Creatinine Ratio 24; Blood Urea Nitrogen 24 mg/dL (9-20); Hemolysis Index 0
[2020-09-06 06:11] LABS: Calcium 5.8 mg/dL (8.4-10.2)
[2020-09-06] MEDS ORDERED: MAGNESIUM SULFATE 2 GM/50 ML BAG IV ONE (06:30)
[2020-09-06] MEDS ORDERED: POTASSIUM CHLORIDE ER 20 MEQ TAB PO ONE (06:45)
[2020-09-06] MEDS ORDERED: CALCIUM GLUCONATE IV ONE (07:30)
[2020-09-06] MEDS ORDERED: MAGNESIUM SULFATE IV ONE (07:30)
[2020-09-06] MEDS ORDERED: SODIUM CHLORIDE 0.9% IV ONE (07:30)
[2020-09-06] MEDS: ARFORMOTEROL 15 MCG/2 ML NEBU IH SCH ×2 (07:52→20:32)
[2020-09-06] MEDS: BUDESONIDE 0.5 MG/2 ML NEBU IH SCH ×2 (07:52→20:32)
--- NOTE | 2020-09-06 08:09 | Progress Note ---
Assessment and Plan Assessment and plan: Labs not available --Hypokalemia; Replenished with KCl oral Monitor electrolytes --Hypocalcemia; IV calcium gluconate, oral calcium carbonate Closely monitor levels --Paroxysmal atrial fibrillation; Patient is in sinus rhythm today with heart rate in 70s No A. fib last 24 hours Continue beta-blockers, not a candidate for anticoagulation Due to severe anemia requiring blood transfusion Cardiology following --Acute exacerbation of COPD ; Patient is a current smoker Continue aggressive neb treatments with budesonide , arformoterol and DuoNeb solutions Continue empiric antibiotic, oxygen titrate O2 sats to more than 90% BiPAP as needed, home O2 evaluation at discharge pulmonary following Solu-Medrol increased to 60 mg every 6 hours --Acute hypoxic respiratory failure ; requiring BiPAP Continue oxygen via nasal cannula Titrate O2 sats more than 90%, BiPAP as needed Home O2 evaluation prior to discharge --Leukocytosis-improved Suspect secondary to steroids As well as bronchitis/pneumonitis Continue bronchodilators, empiric antibiotics, tapering steroids --Hypertension; moderate control Continue current antihypertensives, as needed medications --Normocytic anemia Hemoglobin is down to 8.0 > 7.6 this morning Closely monitor H&H transfuse as needed --Hypokalemia; Replenished, follow electrolytes --Hyperglycemia -likely secondary to steroids HD A1c 5.8, Accu-Chek sliding scale coverage Long-acting insulin if needed --Ongoing tobacco abuse Patient counseled on tobacco cessation Nicotine patch as needed --history of HIV infection for many years Patient follow-up private ID/health department upon discharge --Mild to moderate malnutrition/hypoalbuminemia Nutrition supplements and supportive care --DVT prophylaxis; Heparin subcu/SCDs Physical therapy/Occupational Therapy evaluation and treatment DC planning per case management Possible SNF placement. We will closely monitor the patient and adjust the management as needed Possible discharge in 1 to 2 days if stable and cleared by pulmonary Plan of care reviewed with the patient and his nurse I also discussed with gunite nozzle operator Dr. Rahman and the case management Daily Hospital course; 08/29; patient requiring BiPAP, severely short of breath, pulmonary following; Wean as tolerated ; requiring intermittent BiPAP especially at night This morning patient is on 4 L of nasal cannula oxygen Patient already has home oxygen at 3 L Pulmonary following 08/31/2020; patient continues to be in shortness of breath Unable to keep his oxygen, confused at times BiPAP as needed, pulmonary following Recommend placement SNF, Check for [facility] PCR PT OT evaluation 09/01/2020; on 4 L of nasal oxygen Awaiting placement Resumed service; 09/05/2020; I checked with monitor room, patient is in sinus heart rate in 70s No A. fib last 24 hours Awaiting subacute rehab placement 09/06/2020; hypokalemia, hypocalcemia Replenished with KCl, calcium gluconate and calcium carbonate Follow electrolytes 09/07/2020; follow today's labs Awaiting placement History Interval history: I have seen and examined the patient at the bedside Patient's chart and medications reviewed Patient complains of some chest congestion/cough Vital signs noted Hospitalist Physical - Constitutional Vitals: Temp Pulse Resp BP Pulse Ox 97.9 F 84 17 100/52 97 09/06/20 07:33 09/06/20 07:53 09/06/20 07:53 09/06/20 07:33 09/06/20 07:53 General appearance: Present: no acute distress, well-nourished - EENT Eyes: Present: PERRL, EOM intact - Neck Neck: Present: supple, normal ROM - Respiratory Respiratory: bilateral: diminished, negative: rales, rhonchi, wheezing - Cardiovascular Rhythm: regular Heart Sounds: Present: S1 & S2 - Extremities Extremities: no ischemia, No edema - Abdominal General gastrointestinal: soft, non-tender, non-distended - Integumentary Integumentary: Present: clear, warm - Psychiatric Psychiatric: appropriate mood/affect, cooperative, other - Neurologic Neurologic: moves all extremities HEART Score - HEART Score Troponin: Troponin T < 0.010 ng/mL (0.00-0.029) 09/04/20 05:53 Results - Labs CBC & Chem 7: 09/05/20 04:56 09/06/20 04:26 Labs: Laboratory Last Values WBC 7.7 K/mm3 (4.5-11.0) 09/05/20 04:56 RBC 2.88 M/mm3 (3.65-5.03) L 09/05/20 04:56 Hgb 8.6 gm/dl (11.8-15.2) L 09/05/20 04:56 Hct 25.3 % (35.5-45.6) L 09/05/20 04:56 MCV 88 fl (84-94) 09/05/20 04:56 MCH 30 pg (28-32) 09/05/20 04:56 MCHC 34 % (32-34) 09/05/20 04:56 RDW 19.6 % (13.2-15.2) H 09/05/20 04:56 Plt Count 143 K/mm3 (140-440) 09/05/20 04:56 Add Manual Diff Complete 08/25/20 07:21 Total Counted 100 08/25/20 07:21 Seg Neutrophils % Edger Machine Setter 08/25/20 07:21 Seg Neuts % (Manual) 96.0 % (40.0-70.0) H 08/25/20 07:21 Lymphocytes % (Manual) 3.0 % (13.4-35.0) L 08/25/20 07:21 Monocytes % (Manual) 2.0 % (0.0-7.3) 08/24/20 19:29 Myelocytes % 1.0 % 08/25/20 07:21 Nucleated RBC % Not Reportable 08/25/20 07:21 Seg Neutrophils # Man 4.8 K/mm3 (1.8-7.7) 08/25/20 07:21 Band Neutrophils # 0.0 K/mm3 08/25/20 07:21 Lymphocytes # (Manual) 0.2 K/mm3 (1.2-5.4) L 08/25/20 07:21 Abs React Lymphs (Man) 0.0 K/mm3 08/25/20 07:21 Monocytes # (Manual) 0.0 K/mm3 (0.0-0.8) 08/25/20 07:21 Eosinophils # (Manual) 0.0 K/mm3 (0.0-0.4) 08/25/20 07:21 Basophils # (Manual) 0.0 K/mm3 (0.0-0.1) 08/25/20 07:21 Metamyelocytes # 0.0 K/mm3 08/25/20 07:21 Myelocytes # 0.1 K/mm3 08/25/20 07:21 Promyelocytes # 0.0 K/mm3 08/25/20 07:21 Blast Cells # 0.0 K/mm3 08/25/20 07:21 WBC Morphology Not Reportable 08/25/20 07:21 Hypersegmented Neuts Not Reportable 08/25/20 07:21 Hyposegmented Neuts Not Reportable 08/25/20 07:21 Hypogranular Neuts Not Reportable 08/25/20 07:21 Smudge Cells Not Reportable 08/25/20 07:21 Toxic Granulation Not Reportable 08/25/20 07:21 Toxic Vacuolation Not Reportable 08/25/20 07:21 Dohle Bodies Not Reportable 08/25/20 07:21 Pelger-Huet Anomaly Not Reportable 08/25/20 07:21 Ruma Rods Not Reportable 08/25/20 07:21 Platelet Estimate Consistent w auto 08/25/20 07:21 Clumped Platelets Not Reportable 08/25/20 07:21 Plt Clumps, EDTA Not Reportable 08/25/20 07:21 Large Platelets Not Reportable 08/25/20 07:21 Giant Platelets Not Reportable 08/25/20 07:21 Platelet Satelliting Not Reportable 08/25/20 07:21 Plt Morphology Comment Not Reportable 08/25/20 07:21 RBC Morphology Not Reportable 08/25/20 07:21 Dimorphic RBCs Not Reportable 08/25/20 07:21 Polychromasia Not Reportable 08/25/20 07:21 Hypochromasia 1+ 08/25/20 07:21 Poikilocytosis 1+ 08/25/20 07:21 Anisocytosis 1+ 08/25/20 07:21 Microcytosis Not Reportable 08/25/20 07:21 Macrocytosis Not Reportable 08/25/20 07:21 Spherocytes Not Reportable 08/25/20 07:21 Pappenheimer Bodies Not Reportable 08/25/20 07:21 Sickle Cells Not Reportable 08/25/20 07:21 Target Cells Not Reportable 08/25/20 07:21 Tear Drop Cells Not Reportable 08/25/20 07:21 Ovalocytes 1+ 08/25/20 07:21 Helmet Cells Not Reportable 08/25/20 07:21 [place] Bodies Not Reportable 08/25/20 07:21 Brady Rings Not Reportable 08/25/20 07:21 [place] Cells Not Reportable 08/25/20 07:21 Bite Cells Not Reportable 08/25/20 07:21 Crenated Cell Not Reportable 08/25/20 07:21 Elliptocytes 2+ 08/25/20 07:21 Acanthocytes (Spur) 1+ 08/25/20 07:21 Rouleaux Not Reportable 08/25/20 07:21 Hemoglobin C Crystals Not Reportable 08/25/20 07:21 Schistocytes Not Reportable 08/25/20 07:21 Malaria parasites Not Reportable 08/25/20 07:21 Ric Bodies Not Reportable 08/25/20 07:21 Hem Pathologist Commnt No 08/25/20 07:21 ABG pH 7.316 (7.320-7.450) L 08/28/20 11:00 POC ABG pCO2 68.0 mmHg (32.0-48.0) H 08/28/20 11:00 POC ABG pO2 75.4 mmHg (83-108) L 08/28/20 11:00 POC ABG HCO3 33.9 08/28/20 11:00 ABG O2 Saturation 93.6 (0-100) 08/28/20 11:00 POC ABG Base Excess 6.6 08/28/20 11:00 ABG Hemoglobin 8.3 (12.0-17.5) L 08/28/20 11:00 ABG Oxyhemoglobin 92.5 (94-98) L 08/28/20 11:00 ABG Methemoglobin 0.3 (0.0-1.5) 08/28/20 11:00 ABG Sodium 143.2 mmol/L (136.0-145.0) 08/28/20 11:00 ABG Potassium 3.8 mmol/L (3.40-4.50) 08/28/20 11:00 ABG Chloride 103.0 mmol/L (98-107) 08/28/20 11:00 ABG Glucose 302 mg/dL (65-95) H 08/28/20 11:00 Carboxyhemoglobin 0.9 (0.5-1.5) 08/28/20 11:00 FiO2 % 40.0 08/28/20 11:00 Sodium 151 mmol/L (137-145) H 09/06/20 04:26 Potassium 3.3 mmol/L (3.6-5.0) L 09/06/20 04:26 Chloride 100.0 mmol/L (98-107) 09/06/20 04:26 Carbon Dioxide 44 mmol/L (22-30) H* 09/06/20 04:26 Anion Gap 10 mmol/L 09/06/20 04:26 BUN 24 mg/dL (9-20) H 09/06/20 04:26 Creatinine 1.0 mg/dL (0.8-1.3) 09/06/20 04:26 Estimated GFR > 60 ml/min 09/06/20 04:26 BUN/Creatinine Ratio 24 % 09/06/20 04:26 Glucose 91 mg/dL (75-100) 09/06/20 04:26 POC Glucose 96 mg/dL (70-105) 09/06/20 07:39 Hemoglobin A1c 5.8 % (4-6) 08/25/20 07:27 Calcium 5.8 mg/dL (8.4-10.2) L* 09/06/20 04:26 Magnesium 1.80 mg/dL (1.7-2.3) 09/06/20 04:26 Iron 58 ug/dL (49-181) 09/04/20 05:53 TIBC 214 mcg/dL (250-450) L 09/04/20 05:53 Total Bilirubin 0.40 mg/dL (0.1-1.2) 08/24/20 19:29 AST 21 units/L (5-40) 08/24/20 19:29 ALT 36 units/L (7-56) 08/24/20 19:29 Alkaline Phosphatase 154 units/L (35-129) H 08/24/20 19:29 Troponin T < 0.010 ng/mL (0.00-0.029) 09/04/20 05:53 Total Protein 6.5 g/dL (6.3-8.2) 08/24/20 19:29 Albumin 3.4 g/dL (3.9-5) L 08/24/20 19:29 Albumin/Globulin Ratio 1.1 % 08/24/20 19:29 Arterial Blood Glucose 302 mg/dL (65-95) H 08/28/20 11:00 Arterial Blood Ionized Calcium 3.8 mg/dL (4.6-5.3) L 08/28/20 11:00 Coronavirus (PCR) Negative (Negative) 09/01/20 Unknown Blood Type A POSITIVE 09/03/20 09:56 Antibody Screen Negative 09/03/20 09:56 Crossmatch See Detail 09/03/20 09:56 [place]/IV: Voiding Method Urinal Active Medications - Current Medications Current Medications: Generic Name Dose Route Start Last Admin Trade Name Freq PRN Reason Stop Dose Admin Acetaminophen 650 mg 08/24/20 22:12 Acetaminophen 325 Mg Tab PO Q4H PRN Pain MILD(1-3)/Fever >100.5/KOENIG Alprazolam 0.25 mg 08/30/20 11:30 09/05/20 21:27 Alprazolam 0.25 Mg Tab PO 0.25 mg Q8H PRN Administration Anxiety Arformoterol Tartrate 15 mcg 08/25/20 20:00 09/06/20 07:52 Arformoterol 15 Mcg/2 Ml Nebu IH 15 mcg Q12HRT NADIA Administration Aspirin 81 mg 08/25/20 10:00 09/05/20 09:02 Aspirin Ec 81 Mg Tab PO 81 mg QDAY NADIA Administration Atorvastatin Calcium 40 mg 08/25/20 22:00 09/05/20 21:26 Atorvastatin 40 Mg Tab PO 40 mg QHS NAIDA Administration Budesonide 0.5 mg 08/25/20 08:00 09/06/20 07:52 Budesonide 0.5 Mg/2 Ml Nebu IH 0.5 mg Q12HRT NADIA Administration Calcium Carbonate/Glycine 500 mg 08/25/20 10:00 09/05/20 09:02 Calcium Carbonate 500 Mg Tab Chew PO 500 mg QDAY NADIA Administration Carvedilol 6.25 mg 09/02/20 12:00 09/05/20 21:26 Carvedilol 6.25 Mg Tab PO 6.25 mg BID NADIA Administration Guaifenesin 400 mg 08/29/20 13:00 08/30/20 05:33 Guaifenesin 200 Mg Tab PO 400 mg Q4HR PRN Administration Cough Heparin Sodium (Porcine) 5,000 unit 08/25/20 06:00 09/06/20 05:28 Heparin 5,000 Unit/1 Ml Vial SUB-Q 5,000 unit Q8HR NADIA Administration Hydralazine HCl 10 mg 08/24/20 22:14 08/31/20 13:40 Hydralazine 20 Mg/1 Ml Inj IV 10 mg Q6H PRN Administration SBP>/=160; DBP >/=100 Insulin Human Isoph/Insulin Regular 10 unit 09/01/20 17:00 09/05/20 17:46 Insulin Nph/Regular 70/30 Inj SUB-Q 10 unit BIDDIAB NADIA Administration Insulin Human Lispro 0 unit 08/25/20 22:00 09/05/20 22:10 Insulin Lispro 100 Unit/Ml SUB-Q Not Given QHS [facility] Protocol Ipratropium Lebo 0.5 mg 09/02/20 16:00 09/06/20 07:52 Ipratropium 0.02% Nebu 2.5 Ml IH Not Given Q8HRT NADIA Levalbuterol HCl 0.63 mg 09/01/20 18:00 09/06/20 07:52 Levalbuterol 0.63 Mg/3 Ml Nebu IH Not Given Q8HRT NADIA Mirtazapine 7.5 mg 08/25/20 22:00 09/05/20 21:27 Mirtazapine 15 Mg Tab PO 7.5 mg QHS NADIA Administration Montelukast Sodium 10 mg 08/25/20 22:00 09/05/20 21:27 Montelukast 10 Mg Tab PO 10 mg QHS NADIA Administration Multivitamins 1 each 09/04/20 10:00 09/05/20 09:02 Multivitamins ,Therapeutic Tab PO 1 each QDAY NADIA Administration Multivitamins/Iron 1 each 09/04/20 10:00 09/05/20 10:14 Fe Fumarate/Fa/Mv, Min Comb#15 Cap (Hemocyte Plus) PO 1 each QDAY NADIA Administration Ondansetron HCl 4 mg 08/24/20 22:12 Ondansetron 4 Mg/2 Ml Inj IV Q8H PRN Nausea And Vomiting Oxycodone/Acetaminophen 1 tab 08/24/20 22:23 09/05/20 14:53 Oxycodone /Acetaminophen 5-325mg Tab PO 1 tab BID PRN Administration Pain , Severe (7-10) Pantoprazole Sodium 40 mg 08/25/20 10:00 09/05/20 09:02 Pantoprazole 40 Mg Tab PO 40 mg QDAY NADIA Administration Polyethylene Glycol 17 gm 08/28/20 10:00 09/05/20 09:02 Polyethylene Glycol 3350 17 Gm Powder PO 17 gm QDAY NADIA Administration Sodium Chloride 10 ml 08/25/20 10:00 09/05/20 21:34 Sodium Chloride 0.9% 10 Ml Flush Syringe IV 10 ml BID NADIA Administration Sodium Chloride 10 ml 08/24/20 22:12 Sodium Chloride 0.9% 10 Ml Flush Syringe IV PRN PRN LINE FLUSH Tramadol HCl 50 mg 08/24/20 22:23 09/01/20 05:05 Tramadol 50 Mg Tab PO 50 mg Q6HR PRN Administration Pain, Moderate (4-6) Nutrition/Malnutrition Assess - Dietary Evaluation Nutrition/Malnutrition Findings: Nutrition Notes Start: 08/25/20 08:25 Freq: Status: Active Protocol: Document 09/04/20 12:40 (Rec: 09/04/20 12:43 [id number]) Nutrition Notes Initial or Follow up Reassessment Current Diagnosis COPD,Hypertension,Respiratory Failure Other Pertinent Diagnosis HIV Current Diet Cardiac, consistent CHO Labs/Tests POC BG 253-90 Pertinent Medications MVI Height 5 ft 5 in Weight 52.4 kg [place] Body Weight (kg) 61.81 BMI 19.2 Weight change and time frame Wt change noted, will follow trends Weight Status Underweight Subjective/Other Information FU for intakes. Pt ate a few bites of breakfast and sips of ONS. Percent of energy/protein needs met: Negigible Burn Absent Trauma Absent Current % PO Negligible Minimum of two criteria No Energy Intake (non-severe) <75% Estimated Energy Requirement >7 days #1 Nutrition Diagnosis Inadequate oral intake As Evidenced by Signs and Symptoms pt eating <10% of meals Diagnosis Progress(for reassessment Worsened documentation) Is patient on ventilator? No Is Patient Ambulatory and/or Out of Bed No REE-([facility]-confined to bed) 1412.001 Calculation Used for Recommendations [facility] Additional Notes Protein: (1-1.2g/kg) 60-72g Fluid: 1 ml/kcal Nutrition Intervention Change Diet Order: Continue Add Supplement/Snack (indicate name/kcal Glucerna BID /protein ) Provides kCal: 440 Provides Protein (gm) 20 Goal #1 Meet at least 75% of protein and energy needs via PO and ONS intakes Anticipated Discharge Needs: Cardiac Follow-Up By: 09/06/20 Additional Comments FU for intakes and ONS tolerance
[2020-09-06] MEDS: INSULIN NPH/REGULAR 70/30 INJ SUB-Q SCH ×2 (09:13→16:28)
[2020-09-06] MEDS: POLYETHYLENE GLYCOL 3350 17 GM POWDER PO SCH (09:13)
[2020-09-06] MEDS: FE FUMARATE/FA/MV, MIN COMB#15 CAP (HEMOCYTE PLUS) PO SCH (09:13)
[2020-09-06] MEDS: carvediloL 6.25 MG TAB PO SCH ×2 (09:13→21:34)
[2020-09-06] MEDS: PANTOPRAZOLE 40 MG TAB PO SCH (09:13)
[2020-09-06] MEDS: ASPIRIN EC 81 MG TAB PO SCH (09:13)
[2020-09-06] MEDS: MULTIVITAMINS ,THERAPEUTIC TAB PO SCH (09:13)
[2020-09-06] MEDS: CALCIUM CARBONATE 500 MG TAB CHEW PO SCH ×3 (09:16→21:33)
--- NOTE | 2020-09-06 11:06 | Progress Note ---
Assessment and Plan Assessment and plan: --Hypokalemia; Replenished with KCl oral Monitor electrolytes --Hypocalcemia; IV calcium gluconate, oral calcium carbonate Closely monitor levels --Paroxysmal atrial fibrillation; Patient is in sinus rhythm today with heart rate in 70s No A. fib last 24 hours Continue beta-blockers, not a candidate for anticoagulation Due to severe anemia requiring blood transfusion Cardiology following --Acute exacerbation of COPD ; Patient is a current smoker Continue aggressive neb treatments with budesonide , arformoterol and DuoNeb solutions Continue empiric antibiotic, oxygen titrate O2 sats to more than 90% BiPAP as needed, home O2 evaluation at discharge pulmonary following Solu-Medrol increased to 60 mg every 6 hours --Acute hypoxic respiratory failure ; requiring BiPAP Continue oxygen via nasal cannula Titrate O2 sats more than 90%, BiPAP as needed Home O2 evaluation prior to discharge --Leukocytosis-improved Suspect secondary to steroids As well as bronchitis/pneumonitis Continue bronchodilators, empiric antibiotics, tapering steroids --Hypertension; moderate control Continue current antihypertensives, as needed medications --Normocytic anemia Hemoglobin is down to 8.0 > 7.6 this morning Closely monitor H&H transfuse as needed --Hypokalemia; Replenished, follow electrolytes --Hyperglycemia -likely secondary to steroids HD A1c 5.8, Accu-Chek sliding scale coverage Long-acting insulin if needed --Ongoing tobacco abuse Patient counseled on tobacco cessation Nicotine patch as needed --history of HIV infection for many years Patient follow-up private ID/health department upon discharge --Mild to moderate malnutrition/hypoalbuminemia Nutrition supplements and supportive care --DVT prophylaxis; Heparin subcu/SCDs Physical therapy/Occupational Therapy evaluation and treatment DC planning per case management Possible SNF placement. We will closely monitor the patient and adjust the management as needed Possible discharge in 1 to 2 days if stable and cleared by pulmonary Plan of care reviewed with the patient and his nurse I also discussed with filler machine operator Dr. Rahman and the case management Daily Hospital course; 08/29; patient requiring BiPAP, severely short of breath, pulmonary following; Wean as tolerated ; requiring intermittent BiPAP especially at night This morning patient is on 4 L of nasal cannula oxygen Patient already has home oxygen at 3 L Pulmonary following 08/31/2020; patient continues to be in shortness of breath Unable to keep his oxygen, confused at times BiPAP as needed, pulmonary following Recommend placement SNF, Check for [facility] PCR PT OT evaluation 09/01/2020; on 4 L of nasal oxygen Awaiting placement Resumed service; 09/05/2020; I checked with monitor room, patient is in sinus heart rate in 70s No A. fib last 24 hours Awaiting subacute rehab placement 09/06/2020; hypokalemia, hypocalcemia Replenished with KCl, calcium gluconate and calcium carbonate Follow electrolytes History Interval history: I have seen and examined the patient at the bedside Patient's chart and medications reviewed Patient is critically ill looking Awaiting placement Vital signs noted Hospitalist Physical - Constitutional Vitals: Temp Pulse Resp BP Pulse Ox 97.9 F 84 17 100/52 97 09/06/20 07:33 09/06/20 07:53 09/06/20 07:53 09/06/20 07:33 09/06/20 07:53 General appearance: Present: no acute distress, well-nourished - EENT Eyes: Present: PERRL, EOM intact - Neck Neck: Present: supple, normal ROM - Respiratory Respiratory effort: normal Respiratory: bilateral: diminished, negative: rales, rhonchi, wheezing - Cardiovascular Rhythm: regular Heart Sounds: Present: S1 & S2 - Extremities Extremities: no ischemia, No edema - Abdominal General gastrointestinal: soft, non-tender, non-distended, normal bowel sounds - Integumentary Integumentary: Present: clear, warm - Psychiatric Psychiatric: other (Confused) - Neurologic Neurologic: moves all extremities HEART Score - HEART Score Troponin: Troponin T < 0.010 ng/mL (0.00-0.029) 09/04/20 05:53 Results - Labs CBC & Chem 7: 09/05/20 04:56 09/06/20 04:26 Labs: Laboratory Last Values WBC 7.7 K/mm3 (4.5-11.0) 09/05/20 04:56 RBC 2.88 M/mm3 (3.65-5.03) L 09/05/20 04:56 Hgb 8.6 gm/dl (11.8-15.2) L 09/05/20 04:56 Hct 25.3 % (35.5-45.6) L 09/05/20 04:56 MCV 88 fl (84-94) 09/05/20 04:56 MCH 30 pg (28-32) 09/05/20 04:56 MCHC 34 % (32-34) 09/05/20 04:56 RDW 19.6 % (13.2-15.2) H 09/05/20 04:56 Plt Count 143 K/mm3 (140-440) 09/05/20 04:56 Add Manual Diff Complete 08/25/20 07:21 Total Counted 100 08/25/20 07:21 Seg Neutrophils % Vp Integration 08/25/20 07:21 Seg Neuts % (Manual) 96.0 % (40.0-70.0) H 08/25/20 07:21 Lymphocytes % (Manual) 3.0 % (13.4-35.0) L 08/25/20 07:21 Monocytes % (Manual) 2.0 % (0.0-7.3) 08/24/20 19:29 Myelocytes % 1.0 % 08/25/20 07: Nucleated RBC % Not Reportable 08/25/20 07:21 Seg Neutrophils # Man 4.8 K/mm3 (1.8-7.7) 08/25/20 07:21 Band Neutrophils # 0.0 K/mm3 08/25/20 07:21 Lymphocytes # (Manual) 0.2 K/mm3 (1.2-5.4) L 08/25/20 07:21 Abs React Lymphs (Man) 0.0 K/mm3 08/25/20 07:21 Monocytes # (Manual) 0.0 K/mm3 (0.0-0.8) 08/25/20 07:21 Eosinophils # (Manual) 0.0 K/mm3 (0.0-0.4) 08/25/20 07:21 Basophils # (Manual) 0.0 K/mm3 (0.0-0.1) 08/25/20 07:21 Metamyelocytes # 0.0 K/mm3 08/25/20 07:21 Myelocytes # 0.1 K/mm3 08/25/20 07:21 Promyelocytes # 0.0 K/mm3 08/25/20 07:21 Blast Cells # 0.0 K/mm3 08/25/20 07:21 WBC Morphology Not Reportable 08/25/20 07:21 Hypersegmented Neuts Not Reportable 08/25/20 07:21 Hyposegmented Neuts Not Reportable 08/25/20 07:21 Hypogranular Neuts Not Reportable 08/25/20 07:21 Smudge Cells Not Reportable 08/25/20 07:21 Toxic Granulation Not Reportable 08/25/20 07:21 Toxic Vacuolation Not Reportable 08/25/20 07:21 Dohle Bodies Not Reportable 08/25/20 07:21 Pelger-Huet Anomaly Not Reportable 08/25/20 07:21 Ruma Rods Not Reportable 08/25/20 07:21 Platelet Estimate Consistent w auto 08/25/20 07:21 Clumped Platelets Not Reportable 08/25/20 07:21 Plt Clumps, EDTA Not Reportable 08/25/20 07:21 Large Platelets Not Reportable 08/25/20 07:21 Giant Platelets Not Reportable 08/25/20 07:21 Platelet Satelliting Not Reportable 08/25/20 07:21 Plt Morphology Comment Not Reportable 08/25/20 07:21 RBC Morphology Not Reportable 08/25/20 07:21 Dimorphic RBCs Not Reportable 08/25/20 07:21 Polychromasia Not Reportable 08/25/20 07:21 Hypochromasia 1+ 08/25/20 07:21 Poikilocytosis 1+ 08/25/20 07:21 Anisocytosis 1+ 08/25/20 07:21 Microcytosis Not Reportable 08/25/20 07:21 Macrocytosis Not Reportable 08/25/20 07:21 Spherocytes Not Reportable 08/25/20 07:21 Pappenheimer Bodies Not Reportable 08/25/20 07:21 Sickle Cells Not Reportable 08/25/20 07:21 Target Cells Not Reportable 08/25/20 07:21 Tear Drop Cells Not Reportable 08/25/20 07:21 Ovalocytes 1+ 08/25/20 07:21 Helmet Cells Not Reportable 08/25/20 07:21 David-[place] Bodies Not Reportable 08/25/20 07:21 Kinsey Rings Not Reportable 08/25/20 07:21 [place] Cells Not Reportable 08/25/20 07:21 Bite Cells Not Reportable 08/25/20 07:21 Crenated Cell Not Reportable 08/25/20 07:21 Elliptocytes 2+ 08/25/20 07:21 Acanthocytes (Spur) 1+ 08/25/20 07:21 Rouleaux Not Reportable 08/25/20 07:21 Hemoglobin C Crystals Not Reportable 08/25/20 07:21 Schistocytes Not Reportable 08/25/20 07:21 Malaria parasites Not Reportable 08/25/20 07:21 Ric Bodies Not Reportable 08/25/20 07:21 Hem Pathologist Commnt No 08/25/20 07:21 ABG pH 7.316 (7.320-7.450) L 08/28/20 11:00 POC ABG pCO2 68.0 mmHg (32.0-48.0) H 08/28/20 11:00 POC ABG pO2 75.4 mmHg (83-108) L 08/28/20 11:00 POC ABG HCO3 33.9 08/28/20 11:00 ABG O2 Saturation 93.6 (0-100) 08/28/20 11:00 POC ABG Base Excess 6.6 08/28/20 11:00 ABG Hemoglobin 8.3 (12.0-17.5) L 08/28/20 11:00 ABG Oxyhemoglobin 92.5 (94-98) L 08/28/20 11:00 ABG Methemoglobin 0.3 (0.0-1.5) 08/28/20 11:00 ABG Sodium 143.2 mmol/L (136.0-145.0) 08/28/20 11:00 ABG Potassium 3.8 mmol/L (3.40-4.50) 08/28/20 11:00 ABG Chloride 103.0 mmol/L (98-107) 08/28/20 11:00 ABG Glucose 302 mg/dL (65-95) H 08/28/20 11:00 Carboxyhemoglobin 0.9 (0.5-1.5) 08/28/20 11:00 FiO2 % 40.0 08/28/20 11:00 Sodium 151 mmol/L (137-145) H 09/06/20 04:26 Potassium 3.3 mmol/L (3.6-5.0) L 09/06/20 04:26 Chloride 100.0 mmol/L (98-107) 09/06/20 04:26 Carbon Dioxide 44 mmol/L (22-30) H* 09/06/20 04:26 Anion Gap 10 mmol/L 09/06/20 04:26 BUN 24 mg/dL (9-20) H 09/06/20 04:26 Creatinine 1.0 mg/dL (0.8-1.3) 09/06/20 04:26 Estimated GFR > 60 ml/min 09/06/20 04:26 BUN/Creatinine Ratio 24 % 09/06/20 04:26 Glucose 91 mg/dL (75-100) 09/06/20 04:26 POC Glucose 96 mg/dL (70-105) 09/06/20 07:39 Hemoglobin A1c 5.8 % (4-6) 08/25/20 07:27 Calcium 5.8 mg/dL (8.4-10.2) L* 09/06/20 04:26 Magnesium 1.80 mg/dL (1.7-2.3) 09/06/20 04:26 Iron 58 ug/dL (49-181) 09/04/20 05:53 TIBC 214 mcg/dL (250-450) L 09/04/20 05:53 Total Bilirubin 0.40 mg/dL (0.1-1.2) 08/24/20 19:29 AST 21 units/L (5-40) 08/24/20 19:29 ALT 36 units/L (7-56) 08/24/20 19:29 Alkaline Phosphatase 154 units/L (35-129) H 08/24/20 19:29 Troponin T < 0.010 ng/mL (0.00-0.029) 09/04/20 05:53 Total Protein 6.5 g/dL (6.3-8.2) 08/24/20 19:29 Albumin 3.4 g/dL (3.9-5) L 08/24/20 19:29 Albumin/Globulin Ratio 1.1 % 08/24/20 19:29 Arterial Blood Glucose 302 mg/dL (65-95) H 08/28/20 11:00 Arterial Blood Ionized Calcium 3.8 mg/dL (4.6-5.3) L 08/28/20 11:00 Coronavirus (PCR) Negative (Negative) 09/01/20 Unknown Blood Type A POSITIVE 09/03/20 09:56 Antibody Screen Negative 09/03/20 09:56 Crossmatch See Detail 09/03/20 09:56 [place]/IV: Voiding Method Urinal Active Medications - Current Medications Current Medications: Generic Name Dose Route Start Last Admin Trade Name Freq PRN Reason Stop Dose Admin Acetaminophen 650 mg 08/24/20 22:12 Acetaminophen 325 Mg Tab PO Q4H PRN Pain MILD(1-3)/Fever >100.5/KOENIG Alprazolam 0.25 mg 08/30/20 11:30 09/05/20 21:27 Alprazolam 0.25 Mg Tab PO 0.25 mg Q8H PRN Administration Anxiety Arformoterol Tartrate 15 mcg 08/25/20 20:00 09/06/20 07:52 Arformoterol 15 Mcg/2 Ml Nebu IH 15 mcg Q12HRT NADIA Administration Aspirin 81 mg 08/25/20 10:00 09/06/20 09:13 Aspirin Ec 81 Mg Tab PO 81 mg QDAY NADIA Administration Atorvastatin Calcium 40 mg 08/25/20 22:00 09/05/20 21:26 Atorvastatin 40 Mg Tab PO 40 mg QHS NADIA Administration Budesonide 0.5 mg 08/25/20 08:00 09/06/20 07:52 Budesonide 0.5 Mg/2 Ml Nebu IH 0.5 mg Q12HRT NADIA Administration Calcium Carbonate/Glycine 500 mg 09/06/20 09:00 09/06/20 09:16 Calcium Carbonate 500 Mg Tab Chew PO 500 mg TID NADIA Administration Carvedilol 6.25 mg 09/02/20 12:00 09/06/20 09:13 Carvedilol 6.25 Mg Tab PO 6.25 mg BID NADIA Administration Guaifenesin 400 mg 08/29/20 13:00 08/30/20 05:33 Guaifenesin 200 Mg Tab PO 400 mg Q4HR PRN Administration Cough Heparin Sodium (Porcine) 5,000 unit 08/25/20 06:00 09/06/20 05:28 Heparin 5,000 Unit/1 Ml Vial SUB-Q 5,000 unit Q8HR NADIA Administration Hydralazine HCl 10 mg 08/24/20 22:14 08/31/20 13:40 Hydralazine 20 Mg/1 Ml Inj IV 10 mg Q6H PRN Administration SBP>/=160; DBP >/=100 Insulin Human Isoph/Insulin Regular 10 unit 09/01/20 17:00 09/06/20 09:13 Insulin Nph/Regular 70/30 Inj SUB-Q 10 unit BIDDIAB NADIA Administration Insulin Human Lispro 0 unit 08/25/20 22:00 09/05/20 22:10 Insulin Lispro 100 Unit/Ml SUB-Q Not Given [facility] Protocol Ipratropium [place] 0.5 mg 09/02/20 16:00 09/06/20 07:52 Ipratropium 0.02% Nebu 2.5 Ml IH Not Given Q8HRT NADIA Levalbuterol HCl 0.63 mg 09/01/20 18:00 09/06/20 07:52 Levalbuterol 0.63 Mg/3 Ml Nebu IH Not Given Q8HRT NADIA Mirtazapine 7.5 mg 08/25/20 22:00 09/05/20 21:27 Mirtazapine 15 Mg Tab PO 7.5 mg QHS NADIA Administration Montelukast Sodium 10 mg 08/25/20 22:00 09/05/20 21:27 Montelukast 10 Mg Tab PO 10 mg QHS NADIA Administration Multivitamins 1 each 09/04/20 10:00 09/06/20 09:13 Multivitamins ,Therapeutic Tab PO 1 each QDAY NADIA Administration Multivitamins/Iron 1 each 09/04/20 10:00 09/06/20 09:13 Fe Fumarate/Fa/Mv, Min Comb#15 Cap (Hemocyte Plus) PO 1 each QDAY NADIA Administration Ondansetron HCl 4 mg 08/24/20 22:12 Ondansetron 4 Mg/2 Ml Inj IV Q8H PRN Nausea And Vomiting Oxycodone/Acetaminophen 1 tab 08/24/20 22:23 09/05/20 14:53 Oxycodone /Acetaminophen 5-325mg Tab PO 1 tab BID PRN Administration Pain , Severe (7-10) Pantoprazole Sodium 40 mg 08/25/20 10:00 09/06/20 09:13 Pantoprazole 40 Mg Tab PO 40 mg QDAY NADIA Administration Polyethylene Glycol 17 gm 08/28/20 10:00 09/06/20 09:13 Polyethylene Glycol 3350 17 Gm Powder PO 17 gm QDAY NADIA Administration Sodium Chloride 10 ml 08/25/20 10:00 09/05/20 21:34 Sodium Chloride 0.9% 10 Ml Flush Syringe IV 10 ml BID NADIA Administration Sodium Chloride 10 ml 08/24/20 22:12 Sodium Chloride 0.9% 10 Ml Flush Syringe IV PRN PRN LINE FLUSH Tramadol HCl 50 mg 08/24/20 22:23 09/01/20 05:05 Tramadol 50 Mg Tab PO 50 mg Q6HR PRN Administration Pain, Moderate (4-6) Nutrition/Malnutrition Assess - Dietary Evaluation Nutrition/Malnutrition Findings: Nutrition Notes Start: 08/25/20 08:25 Freq: Status: Active Protocol: Document 09/04/20 12:40 (Rec: 09/04/20 12:43 [id number]) Nutrition Notes Initial or Follow up Reassessment Current Diagnosis COPD,Hypertension,Respiratory Failure Other Pertinent Diagnosis HIV Current Diet Cardiac, consistent CHO Labs/Tests POC BG 253-90 Pertinent Medications MVI Height 5 ft 5 in Weight 52.4 kg [place] Body Weight (kg) 61.81 BMI 19.2 Weight change and time frame Wt change noted, will follow trends Weight Status Underweight Subjective/Other Information FU for intakes. Pt ate a few bites of breakfast and sips of ONS. Percent of energy/protein needs met: Negigible Burn Absent Trauma Absent Current % PO Negligible Minimum of two criteria No Energy Intake (non-severe) <75% Estimated Energy Requirement >7 days #1 Nutrition Diagnosis Inadequate oral intake As Evidenced by Signs and Symptoms pt eating <10% of meals Diagnosis Progress(for reassessment Worsened documentation) Is patient on ventilator? No Is Patient Ambulatory and/or Out of Bed No REE-([facility]-confined to bed) [phone] Calculation Used for Recommendations [facility] Additional Notes Protein: (1-1.2g/kg) 60-72g Fluid: 1 ml/kcal Nutrition Intervention Change Diet Order: Continue Add Supplement/Snack (indicate name/kcal Glucerna BID /protein ) Provides kCal: 440 Provides Protein (gm) 20 Goal #1 Meet at least 75% of protein and energy needs via PO and ONS intakes Anticipated Discharge Needs: Cardiac Follow-Up By: 09/06/20 Additional Comments FU for intakes and ONS tolerance
[2020-09-06] MEDS: ALPRAZolam 0.25 MG TAB PO PRN (15:49)
--- NOTE | 2020-09-06 16:45 | Progress Note ---
Assessment and Plan 64-year-old male with past medical history of COPD, hypertension, Diabetes,asthma PE was brought to the emergency room because of shortness of breath since this morning. Patient had an IV started by EMS and was given IV mag, Solu-Medrol and an albuterol treatment. EMS states that the patient states his symptoms are worsening. Patient states 5 breathing treatment just prior to arrival and did not work. Shortness of breath better with rest and worse with exertion. Patient states he has a long history of COPD and asthma. Patient states he had multiple visits to the ER for this. Patient denies chest pain. Patient denies fever and chills. Patient complains of dry cough Patient has history of smoking 1 pack x 40 years. Says stopped smoking 2 months ago. History of using Cocaine. Denies alcohol abuse. Says worked in [employer] field before he disabled. Patient and has two children.No Known drug allergies Patient awake on 4 litres O2. O2 saturation 96%. No Acute respiratory distress at rest. Patient afebrile and has no leukocytosis. Chest xray done 08/24/20 reported There is hyperinflation the lungs. No focal infiltrate is seen. Calcified granulomata are noted in the upper lung zones bilaterally. No pneumothorax. Patient is on Brovanna/Budesonide aerosol treatments, S/C Heparin and Protonix. - Patient Problems (1) Acute respiratory failure with hypoxia Current Visit: No Status: Acute Plan to address problem: O2 4 litres via nasal canula. Brovanna/Budesonide aerosol treatments. Albuterol/atrovent aerosol treatments as needed. S/C Heparine. Protonix. (2) COPD exacerbation Current Visit: No Status: Acute Plan to address problem: O2 4 litres via nasal canula. Brovanna/Budesonide aerosol treatments. Albuterol/atrovent aerosol treatments as needed. S/C Heparine. Protonix. PFTs as out patient. (3) ANGELIC (acute kidney injury) Current Visit: No Status: Acute Plan to address problem: Management as per nephrology. (4) GERD (gastroesophageal reflux disease) Current Visit: No Status: Acute Plan to address problem: Patient is on Protonix. (5) HIV (human immunodeficiency virus infection) Current Visit: No Status: Acute Qualifiers: Plan to address problem: Management as per infectious disease consultants. (6) Hypertension Current Visit: No Status: Acute Plan to address problem: Management as per primary care. (7) Cocaine use Current Visit: No Status: Chronic Plan to address problem: Counseled do not use any illegal drugs. (8) Tobacco use Current Visit: No Status: Chronic Plan to address problem: Counseled continue stop smoking. Subjective Date of service: 09/06/20 Principal diagnosis: Chronic Anemia Interval history: 64-year-old male with past medical history of COPD, hypertension, Diabetes,asthma PE was brought to the emergency room because of shortness of breath since this morning. Patient had an IV started by EMS and was given IV mag, Solu-Medrol and an albuterol treatment. EMS states that the patient states his symptoms are worsening. Patient states 5 breathing treatment just prior to arrival and did not work. Shortness of breath better with rest and worse with exertion. Patient states he has a long history of COPD and asthma. Patient states he had multiple visits to the ER for this. Patient denies chest pain. Patient denies fever and chills. Patient complains of dry cough Patient has history of smoking 1 pack x 40 years. Says stopped smoking 2 months ago. History of using Cocaine. Denies alcohol abuse. Says worked in [employer] field before he disabled. Patient and has two children.No Known drug allergies Patient awake on 4 litres O2. O2 saturation 96%. No Acute respiratory distress at rest. Patient afebrile and has no leukocytosis. Chest xray done 08/24/20 repo rted There is hyperinflation the lungs. No focal infiltrate is seen. Calcified granulomata are noted in the upper lung zones bilaterally. No pneumothorax. Patient is on Brovanna/Budesonide aerosol treatments, S/C Heparin and Protonix. Objective Vital Signs - 12hr 09/06/20 09/06/20 07:33 07:53 Temperature 97.9 F Pulse Rate 77 Pulse Rate [ 84 Bilateral] Respiratory 20 Rate Respiratory 17 Rate [Bilateral ] Blood Pressure 100/52 O2 Sat by Pulse 99 97 Oximetry Constitutional: no acute distress, alert, other (Slight increased work of breathing at rest,) Eyes: non-icteric ENT: oropharynx moist Neck: supple, no JVD Effort: mildly labored Ascultation: Bilateral: diminished breath sounds, wheezes, other (Prolonged expiratory phase.) Cardiovascular: regular rate and rhythm, other (S1,S2) Gastrointestinal: normoactive bowel sounds, soft, non-tender Integumentary: normal Extremities: no cyanosis, no edema Neurologic: normal mental status, non-focal exam, pupils equal and round Psychiatric: anxious, depressed CBC and BMP: 09/05/20 04:56 09/06/20 04:26 ABG, PT/INR, D-dimer: ABG ABG pH 7.316 (7.320-7.450) L 08/28/20 11:00 POC ABG pCO2 68.0 mmHg (32.0-48.0) H 08/28/20 11:00 POC ABG pO2 75.4 mmHg (83-108) L 08/28/20 11:00 POC ABG HCO3 33.9 08/28/20 11:00 ABG O2 Saturation 93.6 (0-100) 08/28/20 11:00 Abnormal lab findings: Abnormal Labs 08/24/20 08/24/20 08/25/20 19:29 19:29 07:00 WBC RBC 3.36 L Hgb 9.7 L Hct 28.5 L MCH MCHC RDW 20.6 H Seg Neuts % (Manual) 97.0 H Lymphocytes % (Manual) 1.0 L Seg Neutrophils # Man 10.2 H Lymphocytes # (Manual) 0.1 L ABG pH POC ABG pCO2 POC ABG pO2 ABG Hemoglobin ABG Oxyhemoglobin ABG Glucose Sodium Potassium 3.3 L Carbon Dioxide BUN Glucose 121 H POC Glucose 211 H Calcium 7.6 L TIBC Alkaline Phosphatase 154 H Albumin 3.4 L Arterial Blood Glucose Arterial Blood Ionized Calcium Crossmatch 08/25/20 08/25/20 08/25/20 07:21 07:21 12:06 WBC RBC 3.13 L Hgb 8.9 L Hct 26.5 L MCH MCHC RDW 20.6 H Seg Neuts % (Manual) 96.0 H Lymphocytes % (Manual) 3.0 L Seg Neutrophils # Man Lymphocytes # (Manual) 0.2 L ABG pH POC ABG pCO2 POC ABG pO2 ABG Hemoglobin ABG Oxyhemoglobin ABG Glucose Sodium Potassium Carbon Dioxide 31 H BUN Glucose 208 H POC Glucose 162 H Calcium 7.4 L TIBC Alkaline Phosphatase Albumin Arterial Blood Glucose Arterial Blood Ionized Calcium Crossmatch 08/25/20 08/25/20 08/26/20 17:01 21:52 05:09 WBC 14.9 H RBC 3.11 L Hgb 8.9 L Hct 26.7 L MCH MCHC RDW 20.6 H Seg Neuts % (Manual) Lymphocytes % (Manual) Seg Neutrophils # Man Lymphocytes # (Manual) ABG pH POC ABG pCO2 POC ABG pO2 ABG Hemoglobin ABG Oxyhemoglobin ABG Glucose Sodium Potassium Carbon Dioxide BUN Glucose POC Glucose 158 H 175 H Calcium TIBC Alkaline Phosphatase Albumin Arterial Blood Glucose Arterial Blood Ionized Calcium Crossmatch 08/26/20 08/26/20 08/26/20 05:09 07:21 11:21 WBC RBC Hgb Hct MCH MCHC RDW Seg Neuts % (Manual) Lymphocytes % (Manual) Seg Neutrophils # Man Lymphocytes # (Manual) ABG pH POC ABG pCO2 POC ABG pO2 ABG Hemoglobin ABG Oxyhemoglobin ABG Glucose Sodium Potassium Carbon Dioxide 31 H BUN 21 H Glucose 183 H POC Glucose 149 H 145 H Calcium 7.0 L TIBC Alkaline Phosphatase Albumin Arterial Blood Glucose Arterial Blood Ionized Calcium Crossmatch 08/26/20 08/26/20 08/27/20 16:49 21:19 04:41 WBC 11.5 H RBC 2.93 L Hgb 8.0 L Hct 25.2 L MCH 27 L MCHC RDW 21.0 H Seg Neuts % (Manual) Lymphocytes % (Manual) Seg Neutrophils # Man Lymphocytes # (Manual) ABG pH POC ABG pCO2 POC ABG pO2 ABG Hemoglobin ABG Oxyhemoglobin ABG Glucose Sodium Potassium Carbon Dioxide BUN Glucose POC Glucose 177 H 144 H Calcium TIBC Alkaline Phosphatase Albumin Arterial Blood Glucose Arterial Blood Ionized Calcium Crossmatch 08/27/20 08/27/20 08/27/20 04:41 07:25 07:30 WBC RBC Hgb Hct MCH MCHC RDW Seg Neuts % (Manual) Lymphocytes % (Manual) Seg Neutrophils # Man Lymphocytes # (Manual) ABG pH POC ABG pCO2 POC ABG pO2 ABG Hemoglobin ABG Oxyhemoglobin ABG Glucose Sodium Potassium Carbon Dioxide 35 H BUN 24 H Glucose 173 H POC Glucose 153 H 143 H Calcium 7.3 L TIBC Alkaline Phosphatase Albumin Arterial Blood Glucose Arterial Blood Ionized Calcium Crossmatch 08/27/20 08/27/20 08/27/20 11:27 15:49 21:17 WBC RBC Hgb Hct MCH MCHC RDW Seg Neuts % (Manual) Lymphocytes % (Manual) Seg Neutrophils # Man Lymphocytes # (Manual) ABG pH POC ABG pCO2 POC ABG pO2 ABG Hemoglobin ABG Oxyhemoglobin ABG Glucose Sodium Potassium Carbon Dioxide BUN Glucose POC Glucose 236 H 184 H 144 H Calcium TIBC Alkaline Phosphatase Albumin Arterial Blood Glucose Arterial Blood Ionized Calcium Crossmatch 08/28/20 08/28/20 08/28/20 05:55 05:55 07:25 WBC RBC 2.58 L Hgb 7.6 L Hct 22.1 L MCH MCHC 35 H RDW 20.3 H Seg Neuts % (Manual) Lymphocytes % (Manual) Seg Neutrophils # Man Lymphocytes # (Manual) ABG pH POC ABG pCO2 POC ABG pO2 ABG Hemoglobin ABG Oxyhemoglobin ABG Glucose Sodium Potassium 3.5 L Carbon Dioxide BUN 33 H Glucose 183 H POC Glucose 164 H Calcium 6.8 L TIBC Alkaline Phosphatase Albumin Arterial Blood Glucose Arterial Blood Ionized Calcium Crossmatch 08/28/20 08/28/20 08/28/20 11:00 12:06 15:28 WBC RBC Hgb Hct MCH MCHC RDW Seg Neuts % (Manual) Lymphocytes % (Manual) Seg Neutrophils # Man Lymphocytes # (Manual) ABG pH 7.316 L POC ABG pCO2 68.0 H POC ABG pO2 75.4 L ABG Hemoglobin 8.3 L ABG Oxyhemoglobin 92.5 L ABG Glucose 302 H Sodium Potassium Carbon Dioxide BUN Glucose POC Glucose 233 H 146 H Calcium TIBC Alkaline Phosphatase Albumin Arterial Blood Glucose 302 H Arterial Blood Ionized Calcium 3.8 L Crossmatch 08/28/20 08/29/20 08/29/20 21:34 07:26 12:05 WBC RBC Hgb Hct MCH MCHC RDW Seg Neuts % (Manual) Lymphocytes % (Manual) Seg Neutrophils # Man Lymphocytes # (Manual) ABG pH POC ABG pCO2 POC ABG pO2 ABG Hemoglobin ABG Oxyhemoglobin ABG Glucose Sodium Potassium Carbon Dioxide BUN Glucose POC Glucose 201 H 167 H 253 H Calcium TIBC Alkaline Phosphatase Albumin Arterial Blood Glucose Arterial Blood Ionized Calcium Crossmatch 08/29/20 08/29/20 08/30/20 16:32 21:56 07:53 WBC RBC Hgb Hct MCH MCHC RDW Seg Neuts % (Manual) Lymphocytes % (Manual) Seg Neutrophils # Man Lymphocytes # (Manual) ABG pH POC ABG pCO2 POC ABG pO2 ABG Hemoglobin ABG Oxyhemoglobin ABG Glucose Sodium Potassium Carbon Dioxide BUN Glucose POC Glucose 128 H 220 H 286 H Calcium TIBC Alkaline Phosphatase Albumin Arterial Blood Glucose Arterial Blood Ionized Calcium Crossmatch 08/30/20 08/30/20 08/30/20 11:29 17:32 22:03 WBC RBC Hgb Hct MCH MCHC RDW Seg Neuts % (Manual) Lymphocytes % (Manual) Seg Neutrophils # Man Lymphocytes # (Manual) ABG pH POC ABG pCO2 POC ABG pO2 ABG Hemoglobin ABG Oxyhemoglobin ABG Glucose Sodium Potassium Carbon Dioxide BUN Glucose POC Glucose 299 H 260 H 196 H Calcium TIBC Alkaline Phosphatase Albumin Arterial Blood Glucose Arterial Blood Ionized Calcium Crossmatch 08/31/20 08/31/20 08/31/20 07:41 11:26 16:19 WBC RBC Hgb Hct MCH MCHC RDW Seg Neuts % (Manual) Lymphocytes % (Manual) Seg Neutrophils # Man Lymphocytes # (Manual) ABG pH POC ABG pCO2 POC ABG pO2 ABG Hemoglobin ABG Oxyhemoglobin ABG Glucose Sodium Potassium Carbon Dioxide BUN Glucose POC Glucose 166 H 269 H 265 H Calcium TIBC Alkaline Phosphatase Albumin Arterial Blood Glucose Arterial Blood Ionized Calcium Crossmatch 08/31/20 09/01/20 09/01/20 20:44 07:40 11:39 WBC RBC Hgb Hct MCH MCHC RDW Seg Neuts % (Manual) Lymphocytes % (Manual) Seg Neutrophils # Man Lymphocytes # (Manual) ABG pH POC ABG pCO2 POC ABG pO2 ABG Hemoglobin ABG Oxyhemoglobin ABG Glucose Sodium Potassium Carbon Dioxide BUN Glucose POC Glucose 243 H 272 H 320 H Calcium TIBC Alkaline Phosphatase Albumin Arterial Blood Glucose Arterial Blood Ionized Calcium Crossmatch 09/01/20 09/01/20 09/02/20 16:16 21:59 08:32 WBC RBC Hgb Hct MCH MCHC RDW Seg Neuts % (Manual) Lymphocytes % (Manual) Seg Neutrophils # Man Lymphocytes # (Manual) ABG pH POC ABG pCO2 POC ABG pO2 ABG Hemoglobin ABG Oxyhemoglobin ABG Glucose Sodium Potassium Carbon Dioxide BUN Glucose POC Glucose 319 H 157 H 195 H Calcium TIBC Alkaline Phosphatase Albumin Arterial Blood Glucose Arterial Blood Ionized Calcium Crossmatch 09/02/20 09/02/20 09/03/20 11:44 20:09 05:02 WBC RBC 2.25 L Hgb 6.5 L Hct 19.7 L* MCH MCHC RDW 21.3 H Seg Neuts % (Manual) Lymphocytes % (Manual) Seg Neutrophils # Man Lymphocytes # (Manual) ABG pH POC ABG pCO2 POC ABG pO2 ABG Hemoglobin ABG Oxyhemoglobin ABG Glucose Sodium Potassium Carbon Dioxide BUN Glucose POC Glucose 167 H 214 H Calcium TIBC Alkaline Phosphatase Albumin Arterial Blood Glucose Arterial Blood Ionized Calcium Crossmatch 09/03/20 09/03/20 09/03/20 05:02 07:35 09:56 WBC RBC Hgb Hct MCH MCHC RDW Seg Neuts % (Manual) Lymphocytes % (Manual) Seg Neutrophils # Man Lymphocytes # (Manual) ABG pH POC ABG pCO2 POC ABG pO2 ABG Hemoglobin ABG Oxyhemoglobin ABG Glucose Sodium 149 H Potassium 3.3 L Carbon Dioxide 38 H BUN 30 H Glucose 212 H POC Glucose 207 H Calcium 6.7 L TIBC Alkaline Phosphatase Albumin Arterial Blood Glucose Arterial Blood Ionized Calcium Crossmatch See Detail 09/03/20 09/03/20 09/04/20 12:05 16:04 05:53 WBC 14.8 H RBC 2.99 L Hgb 8.6 L Hct 26.4 L D MCH MCHC RDW 19.0 H Seg Neuts % (Manual) Lymphocytes % (Manual) Seg Neutrophils # Man Lymphocytes # (Manual) ABG pH POC ABG pCO2 POC ABG pO2 ABG Hemoglobin ABG Oxyhemoglobin ABG Glucose Sodium Potassium Carbon Dioxide BUN Glucose POC Glucose 193 H 174 H Calcium TIBC Alkaline Phosphatase Albumin Arterial Blood Glucose Arterial Blood Ionized Calcium Crossmatch 09/04/20 09/04/20 09/04/20 05:53 08:33 11:21 WBC RBC Hgb Hct MCH MCHC RDW Seg Neuts % (Manual) Lymphocytes % (Manual) Seg Neutrophils # Man Lymphocytes # (Manual) ABG pH POC ABG pCO2 POC ABG pO2 ABG Hemoglobin ABG Oxyhemoglobin ABG Glucose Sodium 149 H Potassium Carbon Dioxide 39 H BUN 28 H Glucose 175 H POC Glucose 222 H 253 H Calcium 6.9 L TIBC 214 L Alkaline Phosphatase Albumin Arterial Blood Glucose Arterial Blood Ionized Calcium Crossmatch 09/04/20 09/05/20 09/05/20 15:42 04:56 04:56 WBC RBC 2.88 L Hgb 8.6 L Hct 25.3 L MCH MCHC RDW 19.6 H Seg Neuts % (Manual) Lymphocytes % (Manual) Seg Neutrophils # Man Lymphocytes # (Manual) ABG pH POC ABG pCO2 POC ABG pO2 ABG Hemoglobin ABG Oxyhemoglobin ABG Glucose Sodium 149 H Potassium 3.1 L Carbon Dioxide 48 H* D BUN 24 H Glucose 142 H POC Glucose 240 H Calcium 6.5 L TIBC Alkaline Phosphatase Albumin Arterial Blood Glucose Arterial Blood Ionized Calcium Crossmatch 09/05/20 09/05/20 09/05/20 07:31 12:01 16:52 WBC RBC Hgb Hct MCH MCHC RDW Seg Neuts % (Manual) Lymphocytes % (Manual) Seg Neutrophils # Man Lymphocytes # (Manual) ABG pH POC ABG pCO2 POC ABG pO2 ABG Hemoglobin ABG Oxyhemoglobin ABG Glucose Sodium Potassium Carbon Dioxide BUN Glucose POC Glucose 131 H 124 H 168 H Calcium TIBC Alkaline Phosphatase Albumin Arterial Blood Glucose Arterial Blood Ionized Calcium Crossmatch 09/05/20 09/06/20 09/06/20 20:19 04:26 11:51 WBC RBC Hgb Hct MCH MCHC RDW Seg Neuts % (Manual) Lymphocytes % (Manual) Seg Neutrophils # Man Lymphocytes # (Manual) ABG pH POC ABG pCO2 POC ABG pO2 ABG Hemoglobin ABG Oxyhemoglobin ABG Glucose Sodium 151 H Potassium 3.3 L Carbon Dioxide 44 H* BUN 24 H Glucose POC Glucose 130 H 150 H Calcium 5.8 L* TIBC Alkaline Phosphatase Albumin Arterial Blood Glucose Arterial Blood Ionized Calcium Crossmatch 09/06/20 15:19 WBC RBC Hgb Hct MCH MCHC RDW Seg Neuts % (Manual) Lymphocytes % (Manual) Seg Neutrophils # Man Lymphocytes # (Manual) ABG pH POC ABG pCO2 POC ABG pO2 ABG Hemoglobin ABG Oxyhemoglobin ABG Glucose Sodium Potassium Carbon Dioxide BUN Glucose POC Glucose 113 H Calcium TIBC Alkaline Phosphatase Albumin Arterial Blood Glucose Arterial Blood Ionized Calcium Crossmatch Allied health notes reviewed: RT
[2020-09-06] MEDS: MONTELUKAST 10 MG TAB PO SCH (21:34)
[2020-09-06] MEDS: MIRTAZAPINE 15 MG TAB PO SCH (21:34)
[2020-09-06] MEDS: oxyCODONE /ACETAMINOPHEN 5-325MG TAB PO PRN (21:35)
[2020-09-06] MEDS: INSULIN LISPRO 100 UNIT/ML SUB-Q SCH (22:28)
[2020-09-07 00:29] LABS: CD4/CD8 Ratio 0.68 (0.86-5.00)
[2020-09-07] MEDS: HEPARIN 5,000 UNIT/1 ML VIAL SUB-Q SCH ×2 (06:04→13:34)
[2020-09-07] MEDS: LEVALBUTEROL 0.63 MG/3 ML NEBU IH SCH ×3 (08:03→16:27)
[2020-09-07] MEDS: ARFORMOTEROL 15 MCG/2 ML NEBU IH SCH ×2 (08:03→19:48)
[2020-09-07] MEDS: IPRATROPIUM 0.02% NEBU 2.5 ML IH SCH ×3 (08:03→16:27)
[2020-09-07] MEDS: BUDESONIDE 0.5 MG/2 ML NEBU IH SCH ×2 (08:03→19:48)
[2020-09-07] MEDS: INSULIN NPH/REGULAR 70/30 INJ SUB-Q SCH ×2 (09:28→16:46)
[2020-09-07] MEDS: POLYETHYLENE GLYCOL 3350 17 GM POWDER PO SCH ×2 (09:29→12:24)
[2020-09-07] MEDS: FE FUMARATE/FA/MV, MIN COMB#15 CAP (HEMOCYTE PLUS) PO SCH (09:29)
[2020-09-07] MEDS: carvediloL 6.25 MG TAB PO SCH (09:30)
[2020-09-07] MEDS: ASPIRIN EC 81 MG TAB PO SCH (09:30)
[2020-09-07] MEDS: MULTIVITAMINS ,THERAPEUTIC TAB PO SCH (09:30)
[2020-09-07] MEDS: CALCIUM CARBONATE 500 MG TAB CHEW PO SCH ×2 (09:30→13:34)
[2020-09-07] MEDS: PANTOPRAZOLE 40 MG TAB PO SCH (09:30)
[2020-09-07 11:10] LABS: BUN/Creatinine Ratio 27; Blood Urea Nitrogen 24 mg/dL (9-20); Calcium 6.1 mg/dL (8.4-10.2); Hemolysis Index 8
--- NOTE | 2020-09-07 12:38 | Progress Note ---
Assessment and Plan Acute hypoxemic respiratory failure Acute COPD exacerbation ANGELIC GERD (gastroesophageal reflux disease) HIV (human immunodeficiency virus infection) Hypertension Cocaine use Tobacco use disorder - continue to wean supplemental oxygen to keep O2 sats > 90% - continue Bronchodilators (HEIDI & LABA) with pulm hygiene per RT - continue systemic steroids with slow taper - continue inhaled corticosteroids - avoid nephrotoxins, renally dose all medications - continue mobility protocols to prevent pressure ulcers - PT/OT as tolerated - Wound care per RN/WCT - continue accuchecks with glycemic control per SSI for target blood glucose < 180 mg/dL - tobacco abstinence strongly counseled at the bedside - home oxygen evaluation at discharge - GI & VTE prophylaxis - Flu & pneumovax per protocol - Pulmonary out patient follow up for PFTs and optimization of respiratory status - continue other care per attending / other consultants - prn analgesia per pain score ... re-evaluate in am & prn Subjective Date of service: 09/07/20 Principal diagnosis: Ac hypoxemic resp failure; AE-COPD; ANGELIC; HIV +ve; HTN; Cocaine Use Interval history: Patient is seen today for: Acute hypoxemic respiratory failure; AE-COPD; ANGELIC; HIV infection; HTN; Cocaine use; Tobacco use disorder Seen and examined at bedside; 24hour events reviewed; nursing and respiratory care staff consulted; no adverse overnight events reported to me; resting in bed; Objective Vital Signs - 12hr 09/07/20 09/07/20 09/07/20 03:14 07:35 08:05 Temperature 98.3 F 97.9 F Pulse Rate 79 84 Pulse Rate [ Bilateral] Respiratory 20 19 Rate Respiratory Rate [Bilateral ] Blood Pressure 117/68 122/77 O2 Sat by Pulse 90 98 95 Oximetry 09/07/20 09/07/20 09/07/20 08:39 10:00 11:19 Temperature Pulse Rate 73 Pulse Rate [ 85 Bilateral] Respiratory 18 Rate Respiratory 20 Rate [Bilateral ] Blood Pressure O2 Sat by Pulse Oximetry Constitutional: no acute distress, alert, other (Slight increased work of breathing at rest,) Eyes: non-icteric ENT: oropharynx moist Neck: supple, no JVD Effort: mildly labored Ascultation: Bilateral: diminished breath sounds, wheezes, other (Prolonged expiratory phase.) Cardiovascular: regular rate and rhythm, other (S1,S2) Gastrointestinal: normoactive bowel sounds, soft, non-tender Integumentary: normal Extremities: no cyanosis, no edema Neurologic: normal mental status, non-focal exam, pupils equal and round Psychiatric: anxious, depressed CBC and BMP: 09/05/20 04:56 09/07/20 09:41 ABG, PT/INR, D-dimer: ABG ABG pH 7.316 (7.320-7.450) L 08/28/20 11:00 POC ABG pCO2 68.0 mmHg (32.0-48.0) H 08/28/20 11:00 POC ABG pO2 75.4 mmHg (83-108) L 08/28/20 11:00 POC ABG HCO3 33.9 08/28/20 11:00 ABG O2 Saturation 93.6 (0-100) 08/28/20 11:00 Abnormal lab findings: Abnormal Labs 08/24/20 08/24/20 08/25/20 19:29 19:29 07:00 WBC RBC 3.36 L Hgb 9.7 L Hct 28.5 L MCH MCHC RDW 20.6 H Seg Neuts % (Manual) 97.0 H Lymphocytes % (Manual) 1.0 L Seg Neutrophils # Man 10.2 H Abs Lymphs (Manual) Lymphocytes # (Manual) 0.1 L ABG pH POC ABG pCO2 POC ABG pO2 ABG Hemoglobin ABG Oxyhemoglobin ABG Glucose Sodium Potassium 3.3 L Carbon Dioxide BUN Glucose 121 H POC Glucose 211 H Calcium 7.6 L TIBC Alkaline Phosphatase 154 H Albumin 3.4 L Arterial Blood Glucose Arterial Blood Ionized Calcium Lymph Enumerat CD4/CD8 % CD3 Cells Absolute CD3 Count % CD4 Cells Absolute CD4 Count Absolute CD8 Count Absolute CD19 Count Crossmatch 08/25/20 08/25/20 08/25/20 07:21 07:21 12:06 WBC RBC 3.13 L Hgb 8.9 L Hct 26.5 L MCH MCHC RDW 20.6 H Seg Neuts % (Manual) 96.0 H Lymphocytes % (Manual) 3.0 L Seg Neutrophils # Man Abs Lymphs (Manual) Lymphocytes # (Manual) 0.2 L ABG pH POC ABG pCO2 POC ABG pO2 ABG Hemoglobin ABG Oxyhemoglobin ABG Glucose Sodium Potassium Carbon Dioxide 31 H BUN Glucose 208 H POC Glucose 162 H Calcium 7.4 L TIBC Alkaline Phosphatase Albumin Arterial Blood Glucose Arterial Blood Ionized Calcium Lymph Enumerat CD4/CD8 % CD3 Cells Absolute CD3 Count % CD4 Cells Absolute CD4 Count Absolute CD8 Count Absolute CD19 Count Crossmatch 08/25/20 08/25/20 08/26/20 17:01 21:52 05:09 WBC 14.9 H RBC 3.11 L Hgb 8.9 L Hct 26.7 L MCH MCHC RDW 20.6 H Seg Neuts % (Manual) Lymphocytes % (Manual) Seg Neutrophils # Man Abs Lymphs (Manual) Lymphocytes # (Manual) ABG pH POC ABG pCO2 POC ABG pO2 ABG Hemoglobin ABG Oxyhemoglobin ABG Glucose Sodium Potassium Carbon Dioxide BUN Glucose POC Glucose 158 H 175 H Calcium TIBC Alkaline Phosphatase Albumin Arterial Blood Glucose Arterial Blood Ionized Calcium Lymph Enumerat CD4/CD8 % CD3 Cells Absolute CD3 Count % CD4 Cells Absolute CD4 Count Absolute CD8 Count Absolute CD19 Count Crossmatch 08/26/20 08/26/20 08/26/20 05:09 07:21 11:21 WBC RBC Hgb Hct MCH MCHC RDW Seg Neuts % (Manual) Lymphocytes % (Manual) Seg Neutrophils # Man Abs Lymphs (Manual) Lymphocytes # (Manual) ABG pH POC ABG pCO2 POC ABG pO2 ABG Hemoglobin ABG Oxyhemoglobin ABG Glucose Sodium Potassium Carbon Dioxide 31 H BUN 21 H Glucose 183 H POC Glucose 149 H 145 H Calcium 7.0 L TIBC Alkaline Phosphatase Albumin Arterial Blood Glucose Arterial Blood Ionized Calcium Lymph Enumerat CD4/CD8 % CD3 Cells Absolute CD3 Count % CD4 Cells Absolute CD4 Count Absolute CD8 Count Absolute CD19 Count Crossmatch 08/26/20 08/26/20 08/27/20 16:49 21:19 04:41 WBC 11.5 H RBC 2.93 L Hgb 8.0 L Hct 25.2 L MCH 27 L MCHC RDW 21.0 H Seg Neuts % (Manual) Lymphocytes % (Manual) Seg Neutrophils # Man Abs Lymphs (Manual) Lymphocytes # (Manual) ABG pH POC ABG pCO2 POC ABG pO2 ABG Hemoglobin ABG Oxyhemoglobin ABG Glucose Sodium Potassium Carbon Dioxide BUN Glucose POC Glucose 177 H 144 H Calcium TIBC Alkaline Phosphatase Albumin Arterial Blood Glucose Arterial Blood Ionized Calcium Lymph Enumerat CD4/CD8 % CD3 Cells Absolute CD3 Count % CD4 Cells Absolute CD4 Count Absolute CD8 Count Absolute CD19 Count Crossmatch 08/27/20 08/27/2021 04:41 07:25 07:30 WBC RBC Hgb Hct MCH MCHC RDW Seg Neuts % (Manual) Lymphocytes % (Manual) Seg Neutrophils # Man Abs Lymphs (Manual) Lymphocytes # (Manual) ABG pH POC ABG pCO2 POC ABG pO2 ABG Hemoglobin ABG Oxyhemoglobin ABG Glucose Sodium Potassium Carbon Dioxide 35 H BUN 24 H Glucose 173 H POC Glucose 153 H 143 H Calcium 7.3 L TIBC Alkaline Phosphatase Albumin Arterial Blood Glucose Arterial Blood Ionized Calcium Lymph Enumerat CD4/CD8 % CD3 Cells Absolute CD3 Count % CD4 Cells Absolute CD4 Count Absolute CD8 Count Absolute CD19 Count Crossmatch 08/27/20 08/27/20 08/27/20 11:27 15:49 21:17 WBC RBC Hgb Hct MCH MCHC RDW Seg Neuts % (Manual) Lymphocytes % (Manual) Seg Neutrophils # Man Abs Lymphs (Manual) Lymphocytes # (Manual) ABG pH POC ABG pCO2 POC ABG pO2 ABG Hemoglobin ABG Oxyhemoglobin ABG Glucose Sodium Potassium Carbon Dioxide BUN Glucose POC Glucose 236 H 184 H 144 H Calcium TIBC Alkaline Phosphatase Albumin Arterial Blood Glucose Arterial Blood Ionized Calcium Lymph Enumerat CD4/CD8 % CD3 Cells Absolute CD3 Count % CD4 Cells Absolute CD4 Count Absolute CD8 Count Absolute CD19 Count Crossmatch 08/28/20 08/28/20 08/28/20 05:55 05:55 07:25 WBC RBC 2.58 L Hgb 7.6 L Hct 22.1 L MCH MCHC 35 H RDW 20.3 H Seg Neuts % (Manual) Lymphocytes % (Manual) Seg Neutrophils # Man Abs Lymphs (Manual) Lymphocytes # (Manual) ABG pH POC ABG pCO2 POC ABG pO2 ABG Hemoglobin ABG Oxyhemoglobin ABG Glucose Sodium Potassium 3.5 L Carbon Dioxide BUN 33 H Glucose 183 H POC Glucose 164 H Calcium 6.8 L TIBC Alkaline Phosphatase Albumin Arterial Blood Glucose Arterial Blood Ionized Calcium Lymph Enumerat CD4/CD8 % CD3 Cells Absolute CD3 Count % CD4 Cells Absolute CD4 Count Absolute CD8 Count Absolute CD19 Count Crossmatch 08/28/20 08/28/20 08/28/20 11:00 12:06 15:28 WBC RBC Hgb Hct MCH MCHC RDW Seg Neuts % (Manual) Lymphocytes % (Manual) Seg Neutrophils # Man Abs Lymphs (Manual) Lymphocytes # (Manual) ABG pH 7.316 L POC ABG pCO2 68.0 H POC ABG pO2 75.4 L ABG Hemoglobin 8.3 L ABG Oxyhemoglobin 92.5 L ABG Glucose 302 H Sodium Potassium Carbon Dioxide BUN Glucose POC Glucose 233 H 146 H Calcium TIBC Alkaline Phosphatase Albumin Arterial Blood Glucose 302 H Arterial Blood Ionized Calcium 3.8 L Lymph Enumerat CD4/CD8 % CD3 Cells Absolute CD3 Count % CD4 Cells Absolute CD4 Count Absolute CD8 Count Absolute CD19 Count Crossmatch 08/28/20 08/29/20 08/29/20 21:34 07:26 12:05 WBC RBC Hgb Hct MCH MCHC RDW Seg Neuts % (Manual) Lymphocytes % (Manual) Seg Neutrophils # Man Abs Lymphs (Manual) Lymphocytes # (Manual) ABG pH POC ABG pCO2 POC ABG pO2 ABG Hemoglobin ABG Oxyhemoglobin ABG Glucose Sodium Potassium Carbon Dioxide BUN Glucose POC Glucose 201 H 167 H 253 H Calcium TIBC Alkaline Phosphatase Albumin Arterial Blood Glucose Arterial Blood Ionized Calcium Lymph Enumerat CD4/CD8 % CD3 Cells Absolute CD3 Count % CD4 Cells Absolute CD4 Count Absolute CD8 Count Absolute CD19 Count Crossmatch 08/29/20 08/29/20 08/30/20 16:32 21:56 07:53 WBC RBC Hgb Hct MCH MCHC RDW Seg Neuts % (Manual) Lymphocytes % (Manual) Seg Neutrophils # Man Abs Lymphs (Manual) Lymphocytes # (Manual) ABG pH POC ABG pCO2 POC ABG pO2 ABG Hemoglobin ABG Oxyhemoglobin ABG Glucose Sodium Potassium Carbon Dioxide BUN Glucose POC Glucose 128 H 220 H 286 H Calcium TIBC Alkaline Phosphatase Albumin Arterial Blood Glucose Arterial Blood Ionized Calcium Lymph Enumerat CD4/CD8 % CD3 Cells Absolute CD3 Count % CD4 Cells Absolute CD4 Count Absolute CD8 Count Absolute CD19 Count Crossmatch 08/30/20 08/30/20 08/30/20 11:29 17:32 22:03 WBC RBC Hgb Hct MCH MCHC RDW Seg Neuts % (Manual) Lymphocytes % (Manual) Seg Neutrophils # Man Abs Lymphs (Manual) Lymphocytes # (Manual) ABG pH POC ABG pCO2 POC ABG pO2 ABG Hemoglobin ABG Oxyhemoglobin ABG Glucose Sodium Potassium Carbon Dioxide BUN Glucose POC Glucose 299 H 260 H 196 H Calcium TIBC Alkaline Phosphatase Albumin Arterial Blood Glucose Arterial Blood Ionized Calcium Lymph Enumerat CD4/CD8 % CD3 Cells Absolute CD3 Count % CD4 Cells Absolute CD4 Count Absolute CD8 Count Absolute CD19 Count Crossmatch 08/31/20 08/31/20 08/31/20 07:41 11:26 16:19 WBC RBC Hgb Hct MCH MCHC RDW Seg Neuts % (Manual) Lymphocytes % (Manual) Seg Neutrophils # Man Abs Lymphs (Manual) Lymphocytes # (Manual) ABG pH POC ABG pCO2 POC ABG pO2 ABG Hemoglobin ABG Oxyhemoglobin ABG Glucose Sodium Potassium Carbon Dioxide BUN Glucose POC Glucose 166 H 269 H 265 H Calcium TIBC Alkaline Phosphatase Albumin Arterial Blood Glucose Arterial Blood Ionized Calcium Lymph Enumerat CD4/CD8 % CD3 Cells Absolute CD3 Count % CD4 Cells Absolute CD4 Count Absolute CD8 Count Absolute CD19 Count Crossmatch 08/31/20 09/01/20 09/01/20 20:44 07:40 11:39 WBC RBC Hgb Hct MCH MCHC RDW Seg Neuts % (Manual) Lymphocytes % (Manual) Seg Neutrophils # Man Abs Lymphs (Manual) Lymphocytes # (Manual) ABG pH POC ABG pCO2 POC ABG pO2 ABG Hemoglobin ABG Oxyhemoglobin ABG Glucose Sodium Potassium Carbon Dioxide BUN Glucose POC Glucose 243 H 272 H 320 H Calcium TIBC Alkaline Phosphatase Albumin Arterial Blood Glucose Arterial Blood Ionized Calcium Lymph Enumerat CD4/CD8 % CD3 Cells Absolute CD3 Count % CD4 Cells Absolute CD4 Count Absolute CD8 Count Absolute CD19 Count Crossmatch 09/01/20 09/01/20 09/02/20 16:16 21:59 08:32 WBC RBC Hgb Hct MCH MCHC RDW Seg Neuts % (Manual) Lymphocytes % (Manual) Seg Neutrophils # Man Abs Lymphs (Manual) Lymphocytes # (Manual) ABG pH POC ABG pCO2 POC ABG pO2 ABG Hemoglobin ABG Oxyhemoglobin ABG Glucose Sodium Potassium Carbon Dioxide BUN Glucose POC Glucose 319 H 157 H 195 H Calcium TIBC Alkaline Phosphatase Albumin Arterial Blood Glucose Arterial Blood Ionized Calcium Lymph Enumerat CD4/CD8 % CD3 Cells Absolute CD3 Count % CD4 Cells Absolute CD4 Count Absolute CD8 Count Absolute CD19 Count Crossmatch 09/02/20 09/02/20 09/03/20 11:44 20:09 05:02 WBC RBC 2.25 L Hgb 6.5 L Hct 19.7 L* MCH MCHC RDW 21.3 H Seg Neuts % (Manual) Lymphocytes % (Manual) Seg Neutrophils # Man Abs Lymphs (Manual) Lymphocytes # (Manual) ABG pH POC ABG pCO2 POC ABG pO2 ABG Hemoglobin ABG Oxyhemoglobin ABG Glucose Sodium Potassium Carbon Dioxide BUN Glucose POC Glucose 167 H 214 H Calcium TIBC Alkaline Phosphatase Albumin Arterial Blood Glucose Arterial Blood Ionized Calcium Lymph Enumerat CD4/CD8 % CD3 Cells Absolute CD3 Count % CD4 Cells Absolute CD4 Count Absolute CD8 Count Absolute CD19 Count Crossmatch 09/03/20 09/03/20 09/03/20 05:02 07:35 09:56 WBC RBC Hgb Hct MCH MCHC RDW Seg Neuts % (Manual) Lymphocytes % (Manual) Seg Neutrophils # Man Abs Lymphs (Manual) Lymphocytes # (Manual) ABG pH POC ABG pCO2 POC ABG pO2 ABG Hemoglobin ABG Oxyhemoglobin ABG Glucose Sodium 149 H Potassium 3.3 L Carbon Dioxide 38 H BUN 30 H Glucose 212 H POC Glucose 207 H Calcium 6.7 L TIBC Alkaline Phosphatase Albumin Arterial Blood Glucose Arterial Blood Ionized Calcium Lymph Enumerat CD4/CD8 % CD3 Cells Absolute CD3 Count % CD4 Cells Absolute CD4 Count Absolute CD8 Count Absolute CD19 Count Crossmatch See Detail 09/03/20 09/03/20 09/04/20 12:05 16:04 05:53 WBC 14.8 H RBC 2.99 L Hgb 8.6 L Hct 26.4 L D MCH MCHC RDW 19.0 H Seg Neuts % (Manual) Lymphocytes % (Manual) Seg Neutrophils # Man Abs Lymphs (Manual) Lymphocytes # (Manual) ABG pH POC ABG pCO2 POC ABG pO2 ABG Hemoglobin ABG Oxyhemoglobin ABG Glucose Sodium Potassium Carbon Dioxide BUN Glucose POC Glucose 193 H 174 H Calcium TIBC Alkaline Phosphatase Albumin Arterial Blood Glucose Arterial Blood Ionized Calcium Lymph Enumerat CD4/CD8 % CD3 Cells Absolute CD3 Count % CD4 Cells Absolute CD4 Count Absolute CD8 Count Absolute CD19 Count Crossmatch 09/04/20 09/04/20 09/04/20 05:53 05:53 08:33 WBC RBC Hgb Hct MCH MCHC RDW Seg Neuts % (Manual) Lymphocytes % (Manual) Seg Neutrophils # Man Abs Lymphs (Manual) 98 L Lymphocytes # (Manual) ABG pH POC ABG pCO2 POC ABG pO2 ABG Hemoglobin ABG Oxyhemoglobin ABG Glucose Sodium 149 H Potassium Carbon Dioxide 39 H BUN 28 H Glucose 175 H POC Glucose 222 H Calcium 6.9 L TIBC 214 L Alkaline Phosphatase Albumin Arterial Blood Glucose Arterial Blood Ionized Calcium Lymph Enumerat CD4/CD8 0.68 L % CD3 Cells 51 L Absolute CD3 Count 50 L % CD4 Cells 20 L Absolute CD4 Count 20 L Absolute CD8 Count 29 L Absolute CD19 Count 17 L Crossmatch 09/04/20 09/04/20 09/05/20 11:21 15:42 04:56 WBC RBC 2.88 L Hgb 8.6 L Hct 25.3 L MCH MCHC RDW 19.6 H Seg Neuts % (Manual) Lymphocytes % (Manual) Seg Neutrophils # Man Abs Lymphs (Manual) Lymphocytes # (Manual) ABG pH POC ABG pCO2 POC ABG pO2 ABG Hemoglobin ABG Oxyhemoglobin ABG Glucose Sodium Potassium Carbon Dioxide BUN Glucose POC Glucose 253 H 240 H Calcium TIBC Alkaline Phosphatase Albumin Arterial Blood Glucose Arterial Blood Ionized Calcium Lymph Enumerat CD4/CD8 % CD3 Cells Absolute CD3 Count % CD4 Cells Absolute CD4 Count Absolute CD8 Count Absolute CD19 Count Crossmatch 09/05/20 09/05/20 09/05/20 04:56 07:31 12:01 WBC RBC Hgb Hct MCH MCHC RDW Seg Neuts % (Manual) Lymphocytes % (Manual) Seg Neutrophils # Man Abs Lymphs (Manual) Lymphocytes # (Manual) ABG pH POC ABG pCO2 POC ABG pO2 ABG Hemoglobin ABG Oxyhemoglobin ABG Glucose Sodium 149 H Potassium 3.1 L Carbon Dioxide 48 H* D BUN 24 H Glucose 142 H POC Glucose 131 H 124 H Calcium 6.5 L TIBC Alkaline Phosphatase Albumin Arterial Blood Glucose Arterial Blood Ionized Calcium Lymph Enumerat CD4/CD8 % CD3 Cells Absolute CD3 Count % CD4 Cells Absolute CD4 Count Absolute CD8 Count Absolute CD19 Count Crossmatch 09/05/20 09/05/20 09/06/20 16:52 20:19 04:26 WBC RBC Hgb Hct MCH MCHC RDW Seg Neuts % (Manual) Lymphocytes % (Manual) Seg Neutrophils # Man Abs Lymphs (Manual) Lymphocytes # (Manual) ABG pH POC ABG pCO2 POC ABG pO2 ABG Hemoglobin ABG Oxyhemoglobin ABG Glucose Sodium 151 H Potassium 3.3 L Carbon Dioxide 44 H* BUN 24 H Glucose POC Glucose 168 H 130 H Calcium 5.8 L* TIBC Alkaline Phosphatase Albumin Arterial Blood Glucose Arterial Blood Ionized Calcium Lymph Enumerat CD4/CD8 % CD3 Cells Absolute CD3 Count % CD4 Cells Absolute CD4 Count Absolute CD8 Count Absolute CD19 Count Crossmatch 09/06/20 09/06/20 09/06/20 11:51 15:19 20:20 WBC RBC Hgb Hct MCH MCHC RDW Seg Neuts % (Manual) Lymphocytes % (Manual) Seg Neutrophils # Man Abs Lymphs (Manual) Lymphocytes # (Manual) ABG pH POC ABG pCO2 POC ABG pO2 ABG Hemoglobin ABG Oxyhemoglobin ABG Glucose Sodium Potassium Carbon Dioxide BUN Glucose POC Glucose 150 H 113 H 138 H Calcium TIBC Alkaline Phosphatase Albumin Arterial Blood Glucose Arterial Blood Ionized Calcium Lymph Enumerat CD4/CD8 % CD3 Cells Absolute CD3 Count % CD4 Cells Absolute CD4 Count Absolute CD8 Count Absolute CD19 Count Crossmatch 09/07/20 09/07/20 09/07/20 07:41 09:41 11:47 WBC RBC Hgb Hct MCH MCHC RDW Seg Neuts % (Manual) Lymphocytes % (Manual) Seg Neutrophils # Man Abs Lymphs (Manual) Lymphocytes # (Manual) ABG pH POC ABG pCO2 POC ABG pO2 ABG Hemoglobin ABG Oxyhemoglobin ABG Glucose Sodium 146 H Potassium Carbon Dioxide 43 H* BUN 24 H Glucose 186 H POC Glucose 118 H 198 H Calcium 6.1 L TIBC Alkaline Phosphatase Albumin Arterial Blood Glucose Arterial Blood Ionized Calcium Lymph Enumerat CD4/CD8 % CD3 Cells Absolute CD3 Count % CD4 Cells Absolute CD4 Count Absolute CD8 Count Absolute CD19 Count Crossmatch Allied health notes reviewed: RT
--- NOTE | 2020-09-07 12:43 | Progress Note ---
Assessment and Plan Acute hypoxemic respiratory failure Acute COPD exacerbation ANGELIC GERD (gastroesophageal reflux disease) HIV (human immunodeficiency virus infection) Hypertension Cocaine use Tobacco use disorder - resume low dose Prednisone for severe COPD exacerbation - continue to wean supplemental oxygen to keep O2 sats > 90% - continue Bronchodilators (HEIDI & LABA) with pulm hygiene per RT - continue inhaled corticosteroids - avoid nephrotoxins, renally dose all medications - continue mobility protocols to prevent pressure ulcers - PT/OT as tolerated - Wound care per RN/WCT - continue accuchecks with glycemic control per SSI for target blood glucose < 180 mg/dL - tobacco abstinence strongly counseled at the bedside - home oxygen evaluation at discharge - GI & VTE prophylaxis - Flu & pneumovax per protocol - Pulmonary out patient follow up for PFTs and optimization of respiratory status - continue other care per attending / other consultants - prn analgesia per pain score ... re-evaluate in am & prn Subjective Date of service: 09/07/20 Principal diagnosis: Ac hypoxemic resp failure; AE-COPD; ANGELIC; HIV +ve; HTN; Coca ine Use Interval history: Patient is seen today for: Acute hypoxemic respiratory failure; AE-COPD; ANGELIC; HIV infection; HTN; Cocaine use; Tobacco use disorder Seen and examined at bedside; 24hour events reviewed; nursing and respiratory care staff consulted; no adverse overnight events reported to me; resting in bed; remains on supplemental oxygen at 4 l/min flow; still SOB; No N/V/F/C Objective Vital Signs - 12hr 09/07/20 09/07/20 09/07/20 03:14 07:35 08:05 Temperature 98.3 F 97.9 F Pulse Rate 79 84 Pulse Rate [ Bilateral] Respiratory 20 19 Rate Respiratory Rate [Bilateral ] Blood Pressure 117/68 122/77 O2 Sat by Pulse 90 98 95 Oximetry 09/07/20 09/07/20 09/07/20 08:39 10:00 11:19 Temperature Pulse Rate 73 Pulse Rate [ 85 Bilateral] Respiratory 18 Rate Respiratory 20 Rate [Bilateral ] Blood Pressure O2 Sat by Pulse Oximetry Constitutional: other (mildly increased work of breathing at rest) Eyes: non-icteric ENT: oropharynx moist Neck: supple, no JVD Effort: mildly labored Ascultation: Bilateral: diminished breath sounds, rhonchi, other (Prolonged expiratory phase.) Percussion: Bilateral: not dull Cardiovascular: regular rate and rhythm Gastrointestinal: normoactive bowel sounds, soft, non-tender, non-distended Integumentary: normal Extremities: no cyanosis, no edema, pulses normal, no ischemia or petechiae Neurologic: normal mental status, non-focal exam, pupils equal and round, motor strength normal and Psychiatric: mood appropriate, affect normal CBC and BMP: 09/05/20 04:56 09/08/20 05:09 ABG, PT/INR, D-dimer: ABG ABG pH 7.316 (7.320-7.450) L 08/28/20 11:00 POC ABG pCO2 68.0 mmHg (32.0-48.0) H 08/28/20 11:00 POC ABG pO2 75.4 mmHg (83-108) L 08/28/20 11:00 POC ABG HCO3 33.9 08/28/20 11:00 ABG O2 Saturation 93.6 (0-100) 08/28/20 11:00 Abnormal lab findings: Abnormal Labs 08/24/20 08/24/20 08/25/20 19:29 19:29 07:00 WBC RBC 3.36 L Hgb 9.7 L Hct 28.5 L MCH MCHC RDW 20.6 H Seg Neuts % (Manual) 97.0 H Lymphocytes % (Manual) 1.0 L Seg Neutrophils # Man 10.2 H Abs Lymphs (Manual) Lymphocytes # (Manual) 0.1 L ABG pH POC ABG pCO2 POC ABG pO2 ABG Hemoglobin ABG Oxyhemoglobin ABG Glucose Sodium Potassium 3.3 L Carbon Dioxide BUN Glucose 121 H POC Glucose 211 H Calcium 7.6 L TIBC Alkaline Phosphatase 154 H Albumin 3.4 L Arterial Blood Glucose Arterial Blood Ionized Calcium Lymph Enumerat CD4/CD8 % CD3 Cells Absolute CD3 Count % CD4 Cells Absolute CD4 Count Absolute CD8 Count Absolute CD19 Count Crossmatch 08/25/20 08/25/20 08/25/20 07:21 07:21 12:06 WBC RBC 3.13 L Hgb 8.9 L Hct 26.5 L MCH MCHC RDW 20.6 H Seg Neuts % (Manual) 96.0 H Lymphocytes % (Manual) 3.0 L Seg Neutrophils # Man Abs Lymphs (Manual) Lymphocytes # (Manual) 0.2 L ABG pH POC ABG pCO2 POC ABG pO2 ABG Hemoglobin ABG Oxyhemoglobin ABG Glucose Sodium Potassium Carbon Dioxide 31 H BUN Glucose 208 H POC Glucose 162 H Calcium 7.4 L TIBC Alkaline Phosphatase Albumin Arterial Blood Glucose Arterial Blood Ionized Calcium Lymph Enumerat CD4/CD8 % CD3 Cells Absolute CD3 Count % CD4 Cells Absolute CD4 Count Absolute CD8 Count Absolute CD19 Count Crossmatch 08/25/20 08/25/20 08/26/20 17:01 21:52 05:09 WBC 14.9 H RBC 3.11 L Hgb 8.9 L Hct 26.7 L MCH MCHC RDW 20.6 H Seg Neuts % (Manual) Lymphocytes % (Manual) Seg Neutrophils # Man Abs Lymphs (Manual) Lymphocytes # (Manual) ABG pH POC ABG pCO2 POC ABG pO2 ABG Hemoglobin ABG Oxyhemoglobin ABG Glucose Sodium Potassium Carbon Dioxide BUN Glucose POC Glucose 158 H 175 H Calcium TIBC Alkaline Phosphatase Albumin Arterial Blood Glucose Arterial Blood Ionized Calcium Lymph Enumerat CD4/CD8 % CD3 Cells Absolute CD3 Count % CD4 Cells Absolute CD4 Count Absolute CD8 Count Absolute CD19 Count Crossmatch 08/26/20 08/26/20 08/26/20 05:09 07:21 11:21 WBC RBC Hgb Hct MCH MCHC RDW Seg Neuts % (Manual) Lymphocytes % (Manual) Seg Neutrophils # Man Abs Lymphs (Manual) Lymphocytes # (Manual) ABG pH POC ABG pCO2 POC ABG pO2 ABG Hemoglobin ABG Oxyhemoglobin ABG Glucose Sodium Potassium Carbon Dioxide 31 H BUN 21 H Glucose 183 H POC Glucose 149 H 145 H Calcium 7.0 L TIBC Alkaline Phosphatase Albumin Arterial Blood Glucose Arterial Blood Ionized Calcium Lymph Enumerat CD4/CD8 % CD3 Cells Absolute CD3 Count % CD4 Cells Absolute CD4 Count Absolute CD8 Count Absolute CD19 Count Crossmatch 08/26/20 08/26/20 08/27/20 16:49 21:19 04:41 WBC 11.5 H RBC 2.93 L Hgb 8.0 L Hct 25.2 L MCH 27 L MCHC RDW 21.0 H Seg Neuts % (Manual) Lymphocytes % (Manual) Seg Neutrophils # Man Abs Lymphs (Manual) Lymphocytes # (Manual) ABG pH POC ABG pCO2 POC ABG pO2 ABG Hemoglobin ABG Oxyhemoglobin ABG Glucose Sodium Potassium Carbon Dioxide BUN Glucose POC Glucose 177 H 144 H Calcium TIBC Alkaline Phosphatase Albumin Arterial Blood Glucose Arterial Blood Ionized Calcium Lymph Enumerat CD4/CD8 % CD3 Cells Absolute CD3 Count % CD4 Cells Absolute CD4 Count Absolute CD8 Count Absolute CD19 Count Crossmatch 08/27/20 08/27/20 08/27/20 04:41 07:25 07:30 WBC RBC Hgb Hct MCH MCHC RDW Seg Neuts % (Manual) Lymphocytes % (Manual) Seg Neutrophils # Man Abs Lymphs (Manual) Lymphocytes # (Manual) ABG pH POC ABG pCO2 POC ABG pO2 ABG Hemoglobin ABG Oxyhemoglobin ABG Glucose Sodium Potassium Carbon Dioxide 35 H BUN 24 H Glucose 173 H POC Glucose 153 H 143 H Calcium 7.3 L TIBC Alkaline Phosphatase Albumin Arterial Blood Glucose Arterial Blood Ionized Calcium Lymph Enumerat CD4/CD8 % CD3 Cells Absolute CD3 Count % CD4 Cells Absolute CD4 Count Absolute CD8 Count Absolute CD19 Count Crossmatch 08/27/20 08/27/20 08/27/20 11:27 15:49 21:17 WBC RBC Hgb Hct MCH MCHC RDW Seg Neuts % (Manual) Lymphocytes % (Manual) Seg Neutrophils # Man Abs Lymphs (Manual) Lymphocytes # (Manual) ABG pH POC ABG pCO2 POC ABG pO2 ABG Hemoglobin ABG Oxyhemoglobin ABG Glucose Sodium Potassium Carbon Dioxide BUN Glucose POC Glucose 236 H 184 H 144 H Calcium TIBC Alkaline Phosphatase Albumin Arterial Blood Glucose Arterial Blood Ionized Calcium Lymph Enumerat CD4/CD8 % CD3 Cells Absolute CD3 Count % CD4 Cells Absolute CD4 Count Absolute CD8 Count Absolute CD19 Count Crossmatch 08/28/20 08/28/20 08/28/20 05:55 05:55 07:25 WBC RBC 2.58 L Hgb 7.6 L Hct 22.1 L MCH MCHC 35 H RDW 20.3 H Seg Neuts % (Manual) Lymphocytes % (Manual) Seg Neutrophils # Man Abs Lymphs (Manual) Lymphocytes # (Manual) ABG pH POC ABG pCO2 POC ABG pO2 ABG Hemoglobin ABG Oxyhemoglobin ABG Glucose Sodium Potassium 3.5 L Carbon Dioxide BUN 33 H Glucose 183 H POC Glucose 164 H Calcium 6.8 L TIBC Alkaline Phosphatase Albumin Arterial Blood Glucose Arterial Blood Ionized Calcium Lymph Enumerat CD4/CD8 % CD3 Cells Absolute CD3 Count % CD4 Cells Absolute CD4 Count Absolute CD8 Count Absolute CD19 Count Crossmatch 08/28/20 08/28/20 08/28/20 11:00 12:06 15:28 WBC RBC Hgb Hct MCH MCHC RDW Seg Neuts % (Manual) Lymphocytes % (Manual) Seg Neutrophils # Man Abs Lymphs (Manual) Lymphocytes # (Manual) ABG pH 7.316 L POC ABG pCO2 68.0 H POC ABG pO2 75.4 L ABG Hemoglobin 8.3 L ABG Oxyhemoglobin 92.5 L ABG Glucose 302 H Sodium Potassium Carbon Dioxide BUN Glucose POC Glucose 233 H 146 H Calcium TIBC Alkaline Phosphatase Albumin Arterial Blood Glucose 302 H Arterial Blood Ionized Calcium 3.8 L Lymph Enumerat CD4/CD8 % CD3 Cells Absolute CD3 Count % CD4 Cells Absolute CD4 Count Absolute CD8 Count Absolute CD19 Count Crossmatch 08/28/20 08/29/20 08/29/20 21:34 07:26 12:05 WBC RBC Hgb Hct MCH MCHC RDW Seg Neuts % (Manual) Lymphocytes % (Manual) Seg Neutrophils # Man Abs Lymphs (Manual) Lymphocytes # (Manual) ABG pH POC ABG pCO2 POC ABG pO2 ABG Hemoglobin ABG Oxyhemoglobin ABG Glucose Sodium Potassium Carbon Dioxide BUN Glucose POC Glucose 201 H 167 H 253 H Calcium TIBC Alkaline Phosphatase Albumin Arterial Blood Glucose Arterial Blood Ionized Calcium Lymph Enumerat CD4/CD8 % CD3 Cells Absolute CD3 Count % CD4 Cells Absolute CD4 Count Absolute CD8 Count Absolute CD19 Count Crossmatch 08/29/20 08/29/20 08/30/20 16:32 21:56 07:53 WBC RBC Hgb Hct MCH MCHC RDW Seg Neuts % (Manual) Lymphocytes % (Manual) Seg Neutrophils # Man Abs Lymphs (Manual) Lymphocytes # (Manual) ABG pH POC ABG pCO2 POC ABG pO2 ABG Hemoglobin ABG Oxyhemoglobin ABG Glucose Sodium Potassium Carbon Dioxide BUN Glucose POC Glucose 128 H 220 H 286 H Calcium TIBC Alkaline Phosphatase Albumin Arterial Blood Glucose Arterial Blood Ionized Calcium Lymph Enumerat CD4/CD8 % CD3 Cells Absolute CD3 Count % CD4 Cells Absolute CD4 Count Absolute CD8 Count Absolute CD19 Count Crossmatch 08/30/20 08/30/20 08/30/20 11:29 17:32 22:03 WBC RBC Hgb Hct MCH MCHC RDW Seg Neuts % (Manual) Lymphocytes % (Manual) Seg Neutrophils # Man Abs Lymphs (Manual) Lymphocytes # (Manual) ABG pH POC ABG pCO2 POC ABG pO2 ABG Hemoglobin ABG Oxyhemoglobin ABG Glucose Sodium Potassium Carbon Dioxide BUN Glucose POC Glucose 299 H 260 H 196 H Calcium TIBC Alkaline Phosphatase Albumin Arterial Blood Glucose Arterial Blood Ionized Calcium Lymph Enumerat CD4/CD8 % CD3 Cells Absolute CD3 Count % CD4 Cells Absolute CD4 Count Absolute CD8 Count Absolute CD19 Count Crossmatch 08/31/20 08/31/20 08/31/20 07:41 11:26 16:19 WBC RBC Hgb Hct MCH MCHC RDW Seg Neuts % (Manual) Lymphocytes % (Manual) Seg Neutrophils # Man Abs Lymphs (Manual) Lymphocytes # (Manual) ABG pH POC ABG pCO2 POC ABG pO2 ABG Hemoglobin ABG Oxyhemoglobin ABG Glucose Sodium Potassium Carbon Dioxide BUN Glucose POC Glucose 166 H 269 H 265 H Calcium TIBC Alkaline Phosphatase Albumin Arterial Blood Glucose Arterial Blood Ionized Calcium Lymph Enumerat CD4/CD8 % CD3 Cells Absolute CD3 Count % CD4 Cells Absolute CD4 Count Absolute CD8 Count Absolute CD19 Count Crossmatch 08/31/20 09/01/20 09/01/20 20:44 07:40 11:39 WBC RBC Hgb Hct MCH MCHC RDW Seg Neuts % (Manual) Lymphocytes % (Manual) Seg Neutrophils # Man Abs Lymphs (Manual) Lymphocytes # (Manual) ABG pH POC ABG pCO2 POC ABG pO2 ABG Hemoglobin ABG Oxyhemoglobin ABG Glucose Sodium Potassium Carbon Dioxide BUN Glucose POC Glucose 243 H 272 H 320 H Calcium TIBC Alkaline Phosphatase Albumin Arterial Blood Glucose Arterial Blood Ionized Calcium Lymph Enumerat CD4/CD8 % CD3 Cells Absolute CD3 Count % CD4 Cells Absolute CD4 Count Absolute CD8 Count Absolute CD19 Count Crossmatch 09/01/20 09/01/20 09/02/20 16:16 21:59 08:32 WBC RBC Hgb Hct MCH MCHC RDW Seg Neuts % (Manual) Lymphocytes % (Manual) Seg Neutrophils # Man Abs Lymphs (Manual) Lymphocytes # (Manual) ABG pH POC ABG pCO2 POC ABG pO2 ABG Hemoglobin ABG Oxyhemoglobin ABG Glucose Sodium Potassium Carbon Dioxide BUN Glucose POC Glucose 319 H 157 H 195 H Calcium TIBC Alkaline Phosphatase Albumin Arterial Blood Glucose Arterial Blood Ionized Calcium Lymph Enumerat CD4/CD8 % CD3 Cells Absolute CD3 Count % CD4 Cells Absolute CD4 Count Absolute CD8 Count Absolute CD19 Count Crossmatch 09/02/20 09/02/20 09/03/20 11:44 20:09 05:02 WBC RBC 2.25 L Hgb 6.5 L Hct 19.7 L* MCH MCHC RDW 21.3 H Seg Neuts % (Manual) Lymphocytes % (Manual) Seg Neutrophils # Man Abs Lymphs (Manual) Lymphocytes # (Manual) ABG pH POC ABG pCO2 POC ABG pO2 ABG Hemoglobin ABG Oxyhemoglobin ABG Glucose Sodium Potassium Carbon Dioxide BUN Glucose POC Glucose 167 H 214 H Calcium TIBC Alkaline Phosphatase Albumin Arterial Blood Glucose Arterial Blood Ionized Calcium Lymph Enumerat CD4/CD8 % CD3 Cells Absolute CD3 Count % CD4 Cells Absolute CD4 Count Absolute CD8 Count Absolute CD19 Count Crossmatch 09/03/20 09/03/20 09/03/20 05:02 07:35 09:56 WBC RBC Hgb Hct MCH MCHC RDW Seg Neuts % (Manual) Lymphocytes % (Manual) Seg Neutrophils # Man Abs Lymphs (Manual) Lymphocytes # (Manual) ABG pH POC ABG pCO2 POC ABG pO2 ABG Hemoglobin ABG Oxyhemoglobin ABG Glucose Sodium 149 H Potassium 3.3 L Carbon Dioxide 38 H BUN 30 H Glucose 212 H POC Glucose 207 H Calcium 6.7 L TIBC Alkaline Phosphatase Albumin Arterial Blood Glucose Arterial Blood Ionized Calcium Lymph Enumerat CD4/CD8 % CD3 Cells Absolute CD3 Count % CD4 Cells Absolute CD4 Count Absolute CD8 Count Absolute CD19 Count Crossmatch See Detail 09/03/20 09/03/20 09/04/20 12:05 16:04 05:53 WBC 14.8 H RBC 2.99 L Hgb 8.6 L Hct 26.4 L D MCH MCHC RDW 19.0 H Seg Neuts % (Manual) Lymphocytes % (Manual) Seg Neutrophils # Man Abs Lymphs (Manual) Lymphocytes # (Manual) ABG pH POC ABG pCO2 POC ABG pO2 ABG Hemoglobin ABG Oxyhemoglobin ABG Glucose Sodium Potassium Carbon Dioxide BUN Glucose POC Glucose 193 H 174 H Calcium TIBC Alkaline Phosphatase Albumin Arterial Blood Glucose Arterial Blood Ionized Calcium Lymph Enumerat CD4/CD8 % CD3 Cells Absolute CD3 Count % CD4 Cells Absolute CD4 Count Absolute CD8 Count Absolute CD19 Count Crossmatch 09/04/20 09/04/20 09/04/20 05:53 05:53 08:33 WBC RBC Hgb Hct MCH MCHC RDW Seg Neuts % (Manual) Lymphocytes % (Manual) Seg Neutrophils # Man Abs Lymphs (Manual) 98 L Lymphocytes # (Manual) ABG pH POC ABG pCO2 POC ABG pO2 ABG Hemoglobin ABG Oxyhemoglobin ABG Glucose Sodium 149 H Potassium Carbon Dioxide 39 H BUN 28 H Glucose 175 H POC Glucose 222 H Calcium 6.9 L TIBC 214 L Alkaline Phosphatase Albumin Arterial Blood Glucose Arterial Blood Ionized Calcium Lymph Enumerat CD4/CD8 0.68 L % CD3 Cells 51 L Absolute CD3 Count 50 L % CD4 Cells 20 L Absolute CD4 Count 20 L Absolute CD8 Count 29 L Absolute CD19 Count 17 L Crossmatch 09/04/20 09/04/20 09/05/20 11:21 15:42 04:56 WBC RBC 2.88 L Hgb 8.6 L Hct 25.3 L MCH MCHC RDW 19.6 H Seg Neuts % (Manual) Lymphocytes % (Manual) Seg Neutrophils # Man Abs Lymphs (Manual) Lymphocytes # (Manual) ABG pH POC ABG pCO2 POC ABG pO2 ABG Hemoglobin ABG Oxyhemoglobin ABG Glucose Sodium Potassium Carbon Dioxide BUN Glucose POC Glucose 253 H 240 H Calcium TIBC Alkaline Phosphatase Albumin Arterial Blood Glucose Arterial Blood Ionized Calcium Lymph Enumerat CD4/CD8 % CD3 Cells Absolute CD3 Count % CD4 Cells Absolute CD4 Count Absolute CD8 Count Absolute CD19 Count Crossmatch 09/05/20 09/05/20 09/05/20 04:56 07:31 12:01 WBC RBC Hgb Hct MCH MCHC RDW Seg Neuts % (Manual) Lymphocytes % (Manual) Seg Neutrophils # Man Abs Lymphs (Manual) Lymphocytes # (Manual) ABG pH POC ABG pCO2 POC ABG pO2 ABG Hemoglobin ABG Oxyhemoglobin ABG Glucose Sodium 149 H Potassium 3.1 L Carbon Dioxide 48 H* D BUN 24 H Glucose 142 H POC Glucose 131 H 124 H Calcium 6.5 L TIBC Alkaline Phosphatase Albumin Arterial Blood Glucose Arterial Blood Ionized Calcium Lymph Enumerat CD4/CD8 % CD3 Cells Absolute CD3 Count % CD4 Cells Absolute CD4 Count Absolute CD8 Count Absolute CD19 Count Crossmatch 09/05/20 09/05/20 09/06/20 16:52 20:19 04:26 WBC RBC Hgb Hct MCH MCHC RDW Seg Neuts % (Manual) Lymphocytes % (Manual) Seg Neutrophils # Man Abs Lymphs (Manual) Lymphocytes # (Manual) ABG pH POC ABG pCO2 POC ABG pO2 ABG Hemoglobin ABG Oxyhemoglobin ABG Glucose Sodium 151 H Potassium 3.3 L Carbon Dioxide 44 H* BUN 24 H Glucose POC Glucose 168 H 130 H Calcium 5.8 L* TIBC Alkaline Phosphatase Albumin Arterial Blood Glucose Arterial Blood Ionized Calcium Lymph Enumerat CD4/CD8 % CD3 Cells Absolute CD3 Count % CD4 Cells Absolute CD4 Count Absolute CD8 Count Absolute CD19 Count Crossmatch 09/06/20 09/06/20 09/06/20 11:51 15:19 20:20 WBC RBC Hgb Hct MCH MCHC RDW Seg Neuts % (Manual) Lymphocytes % (Manual) Seg Neutrophils # Man Abs Lymphs (Manual) Lymphocytes # (Manual) ABG pH POC ABG pCO2 POC ABG pO2 ABG Hemoglobin ABG Oxyhemoglobin ABG Glucose Sodium Potassium Carbon Dioxide BUN Glucose POC Glucose 150 H 113 H 138 H Calcium TIBC Alkaline Phosphatase Albumin Arterial Blood Glucose Arterial Blood Ionized Calcium Lymph Enumerat CD4/CD8 % CD3 Cells Absolute CD3 Count % CD4 Cells Absolute CD4 Count Absolute CD8 Count Absolute CD19 Count Crossmatch 09/07/20 09/07/20 09/07/20 07:41 09:41 11:47 WBC RBC Hgb Hct MCH MCHC RDW Seg Neuts % (Manual) Lymphocytes % (Manual) Seg Neutrophils # Man Abs Lymphs (Manual) Lymphocytes # (Manual) ABG pH POC ABG pCO2 POC ABG pO2 ABG Hemoglobin ABG Oxyhemoglobin ABG Glucose Sodium 146 H Potassium Carbon Dioxide 43 H* BUN 24 H Glucose 186 H POC Glucose 118 H 198 H Calcium 6.1 L TIBC Alkaline Phosphatase Albumin Arterial Blood Glucose Arterial Blood Ionized Calcium Lymph Enumerat CD4/CD8 % CD3 Cells Absolute CD3 Count % CD4 Cells Absolute CD4 Count Absolute CD8 Count Absolute CD19 Count Crossmatch Allied health notes reviewed: nursing
[2020-09-07] MEDS ORDERED: KETOROLAC 30 MG/1 ML INJ IV PRN (15:22)
[2020-09-08] MEDS: LEVALBUTEROL 0.63 MG/3 ML NEBU IH SCH ×5 (00:05→23:46)
[2020-09-08] MEDS: IPRATROPIUM 0.02% NEBU 2.5 ML IH SCH ×5 (00:05→23:46)
[2020-09-08] MEDS: CALCIUM CARBONATE 500 MG TAB CHEW PO SCH ×4 (00:11→22:19)
[2020-09-08] MEDS: carvediloL 6.25 MG TAB PO SCH ×3 (00:11→22:19)
[2020-09-08] MEDS: MIRTAZAPINE 15 MG TAB PO SCH ×2 (00:12→22:19)
[2020-09-08] MEDS: MONTELUKAST 10 MG TAB PO SCH ×2 (00:12→22:20)
[2020-09-08] MEDS: INSULIN LISPRO 100 UNIT/ML SUB-Q SCH ×2 (00:13→22:20)
[2020-09-08] MEDS: HEPARIN 5,000 UNIT/1 ML VIAL SUB-Q SCH ×4 (00:13→22:21)
[2020-09-08] MEDS: ALPRAZolam 0.25 MG TAB PO PRN ×3 (00:19→18:13)
[2020-09-08 06:05] LABS: BUN/Creatinine Ratio 20; Blood Urea Nitrogen 18 mg/dL (9-20); Calcium 6.1 mg/dL (8.4-10.2); Hemolysis Index 9
[2020-09-08] MEDS: INSULIN NPH/REGULAR 70/30 INJ SUB-Q SCH ×2 (09:03→18:14)
[2020-09-08] MEDS: BUDESONIDE 0.5 MG/2 ML NEBU IH SCH ×2 (09:44→19:16)
[2020-09-08] MEDS: ARFORMOTEROL 15 MCG/2 ML NEBU IH SCH ×2 (09:44→19:16)
--- NOTE | 2020-09-08 09:55 | Progress Note ---
Assessment and Plan Assessment and plan: --Hypokalemia; Replenished with KCl oral Monitor electrolytes --Hypocalcemia; IV calcium gluconate, oral calcium carbonate Closely monitor levels --Paroxysmal atrial fibrillation; Patient is in sinus rhythm today with heart rate in 70s No A. fib last 24 hours Continue beta-blockers, not a candidate for anticoagulation Due to severe anemia requiring blood transfusion Cardiology following --Acute exacerbation of COPD ; Patient is a current smoker Continue aggressive neb treatments with budesonide , arformoterol and DuoNeb solutions Continue empiric antibiotic, oxygen titrate O2 sats to more than 90% BiPAP as needed, home O2 evaluation at discharge pulmonary following Solu-Medrol increased to 60 mg every 6 hours --Acute hypoxic respiratory failure ; requiring BiPAP Continue oxygen via nasal cannula Titrate O2 sats more than 90%, BiPAP as needed Home O2 evaluation prior to discharge --Leukocytosis-improved Suspect secondary to steroids As well as bronchitis/pneumonitis Continue bronchodilators, empiric antibiotics, tapering steroids --Hypertension; moderate control Continue current antihypertensives, as needed medications --Normocytic anemia Hemoglobin is down to 8.0 > 7.6 this morning Closely monitor H&H transfuse as needed --Hypokalemia; Replenished, follow electrolytes --Hyperglycemia -likely secondary to steroids HD A1c 5.8, Accu-Chek sliding scale coverage Long-acting insulin if needed --Ongoing tobacco abuse Patient counseled on tobacco cessation Nicotine patch as needed --history of HIV infection for many years Patient follow-up private ID/health department upon discharge --Mild to moderate malnutrition/hypoalbuminemia Nutrition supplements and supportive care --DVT prophylaxis; Heparin subcu/SCDs Physical therapy/Occupational Therapy evaluation and treatment DC planning per case management OT recommended subacute rehab /SNF placement. DC planning per case management We will closely monitor the patient and adjust the management as needed Possible discharge in 1 to 2 days if stable and cleared by pulmonary Plan of care reviewed with the patient and his nurse I also discussed with documentation billing clerk Dr. Rahman and the case management Daily Hospital course; 08/29; patient requiring BiPAP, severely short of breath, pulmonary following; Wean as tolerated ; requiring intermittent BiPAP especially at night This morning patient is on 4 L of nasal cannula oxygen Patient already has home oxygen at 3 L Pulmonary following 08/31/2020; patient continues to be in shortness of breath Unable to keep his oxygen, confused at times BiPAP as needed, pulmonary following Recommend placement SNF, Check for [facility] PCR PT OT evaluation 09/01/2020; on 4 L of nasal oxygen Awaiting placement Resumed service; 09/05/2020; I checked with monitor room, patient is in sinus heart rate in 70s No A. fib last 24 hours Awaiting subacute rehab placement 09/06/2020; hypokalemia, hypocalcemia Replenished with KCl, calcium gluconate and calcium carbonate Follow electrolytes 09/07/2020; follow today's labs Awaiting placement 09/08/2020; patient is clinically stable for discharge Awaiting subacute rehab placement History Interval history: I have seen and examined the patient at the bedside Patient's chart and medications reviewed Patient is alert and awake Awaiting subacute rehab placement Vital signs noted Hospitalist Physical - Constitutional Vitals: Temp Pulse Resp BP Pulse Ox 97.8 F 71 19 86/52 100 09/08/20 07:48 09/08/20 07:48 09/08/20 07:48 09/08/20 07:48 09/08/20 07:48 General appearance: Present: no acute distress, well-nourished - EENT Eyes: Present: PERRL, EOM intact - Neck Neck: Present: supple, normal ROM - Respiratory Respiratory effort: normal Respiratory: bilateral: diminished, negative: rales, rhonchi, wheezing - Cardiovascular Rhythm: regular Heart Sounds: Present: S1 & S2 - Extremities Extremities: no ischemia, No edema - Abdominal General gastrointestinal: soft, non-tender, non-distended, normal bowel sounds - Integumentary Integumentary: Present: clear, warm - Psychiatric Psychiatric: appropriate mood/affect, cooperative - Neurologic Neurologic: moves all extremities HEART Score - HEART Score Troponin: Troponin T < 0.010 ng/mL (0.00-0.029) 09/04/20 05:53 Results - Labs CBC & Chem 7: 09/05/20 04:56 09/08/20 05:09 Labs: Laboratory Last Values WBC 7.7 K/mm3 (4.5-11.0) 09/05/20 04:56 RBC 2.88 M/mm3 (3.65-5.03) L 09/05/20 04:56 Hgb 8.6 gm/dl (11.8-15.2) L 09/05/20 04:56 Hct 25.3 % (35.5-45.6) L 09/05/20 04:56 MCV 88 fl (84-94) 09/05/20 04:56 MCH 30 pg (28-32) 09/05/20 04:56 MCHC 34 % (32-34) 09/05/20 04:56 RDW 19.6 % (13.2-15.2) H 09/05/20 04:56 Plt Count 143 K/mm3 (140-440) 09/05/20 04:56 Add Manual Diff Complete 08/25/20 07:21 Total Counted 100 08/25/20 07:21 Seg Neutrophils % Nub Card Tender 08/25/20 07:21 Seg Neuts % (Manual) 96.0 % (40.0-70.0) H 08/25/20 07:21 Lymphocytes % (Manual) 3.0 % (13.4-35.0) L 08/25/20 07:21 Monocytes % (Manual) 2.0 % (0.0-7.3) 08/24/20 19:29 Myelocytes % 1.0 % 08/25/20 07:21 Nucleated RBC % Not Reportable 08/25/20 07:21 Seg Neutrophils # Man 4.8 K/mm3 (1.8-7.7) 08/25/20 07:21 Band Neutrophils # 0.0 K/mm3 08/25/20 07:21 Abs Lymphs (Manual) 98 cells/uL (850-3900) L 09/04/20 05:53 Lymphocytes # (Manual) 0.2 K/mm3 (1.2-5.4) L 08/25/20 07:21 Abs React Lymphs (Man) 0.0 K/mm3 08/25/20 07:21 Monocytes # (Manual) 0.0 K/mm3 (0.0-0.8) 08/25/20 07:21 Eosinophils # (Manual) 0.0 K/mm3 (0.0-0.4) 08/25/20 07:21 Basophils # (Manual) 0.0 K/mm3 (0.0-0.1) 08/25/20 07:21 Metamyelocytes # 0.0 K/mm3 08/25/20 07:21 Myelocytes # 0.1 K/mm3 08/25/20 07:21 Promyelocytes # 0.0 K/mm3 08/25/20 07:21 Blast Cells # 0.0 K/mm3 08/25/20 07:21 WBC Morphology Not Reportable 08/25/20 07:21 Hypersegmented Neuts Not Reportable 08/25/20 07:21 Hyposegmented Neuts Not Reportable 08/25/20 07:21 Hypogranular Neuts Not Reportable 08/25/20 07:21 Smudge Cells Not Reportable 08/25/20 07:21 Toxic Granulation Not Reportable 08/25/20 07:21 Toxic Vacuolation Not Reportable 08/25/20 07:21 Dohle Bodies Not Reportable 08/25/20 07:21 Pelger-Huet Anomaly Not Reportable 08/25/20 07:21 Ruma Rods Not Reportable 08/25/20 07:21 Platelet Estimate Consistent w auto 08/25/20 07:21 Clumped Platelets Not Reportable 08/25/20 07:21 Plt Clumps, EDTA Not Reportable 08/25/20 07:21 Large Platelets Not Reportable 08/25/20 07:21 Giant Platelets Not Reportable 08/25/20 07:21 Platelet Satelliting Not Reportable 08/25/20 07:21 Plt Morphology Comment Not Reportable 08/25/20 07:21 RBC Morphology Not Reportable 08/25/20 07:21 Dimorphic RBCs Not Reportable 08/25/20 07:21 Polychromasia Not Reportable 08/25/20 07:21 Hypochromasia 1+ 08/25/20 07:21 Poikilocytosis 1+ 08/25/20 07:21 Anisocytosis 1+ 08/25/20 07:21 Microcytosis Not Reportable 08/25/20 07:21 Macrocytosis Not Reportable 08/25/20 07:21 Spherocytes Not Reportable 08/25/20 07:21 Pappenheimer Bodies Not Reportable 08/25/20 07:21 Sickle Cells Not Reportable 08/25/20 07:21 Target Cells Not Reportable 08/25/20 07:21 Tear Drop Cells Not Reportable 08/25/20 07:21 Ovalocytes 1+ 08/25/20 07:21 Helmet Cells Not Reportable 08/25/20 07:21 David-Misenheimer Bodies Not Reportable 08/25/20 07:21 [place] Rings Not Reportable 08/25/20 07:21 Adolphus Cells Not Reportable 08/25/20 07:21 Bite Cells Not Reportable 08/25/20 07:21 Crenated Cell Not Reportable 08/25/20 07:21 Elliptocytes 2+ 08/25/20 07:21 Acanthocytes (Spur) 1+ 08/25/20 07:21 Rouleaux Not Reportable 08/25/20 07:21 Hemoglobin C Crystals Not Reportable 08/25/20 07:21 Schistocytes Not Reportable 08/25/20 07:21 Malaria parasites Not Reportable 08/25/20 07:21 Ric Bodies Not Reportable 08/25/20 07:21 Hem Pathologist Commnt No 08/25/20 07:21 ABG pH 7.316 (7.320-7.450) L 08/28/20 11:00 POC ABG pCO2 68.0 mmHg (32.0-48.0) H 08/28/20 11:00 POC ABG pO2 75.4 mmHg (83-108) L 08/28/20 11:00 POC ABG HCO3 33.9 08/28/20 11:00 ABG O2 Saturation 93.6 (0-100) 08/28/20 11:00 POC ABG Base Excess 6.6 08/28/20 11:00 ABG Hemoglobin 8.3 (12.0-17.5) L 08/28/20 11:00 ABG Oxyhemoglobin 92.5 (94-98) L 08/28/20 11:00 ABG Methemoglobin 0.3 (0.0-1.5) 08/28/20 11:00 ABG Sodium 143.2 mmol/L (136.0-145.0) 08/28/20 11:00 ABG Potassium 3.8 mmol/L (3.40-4.50) 08/28/20 11:00 ABG Chloride 103.0 mmol/L (98-107) 08/28/20 11:00 ABG Glucose 302 mg/dL (65-95) H 08/28/20 11:00 Carboxyhemoglobin 0.9 (0.5-1.5) 08/28/20 11:00 FiO2 % 40.0 08/28/20 11:00 Sodium 146 mmol/L (137-145) H 09/08/20 05:09 Potassium 3.7 mmol/L (3.6-5.0) 09/08/20 05:09 Chloride 98.1 mmol/L (98-107) 09/08/20 05:09 Carbon Dioxide 47 mmol/L (22-30) H* 09/08/20 05:09 Anion Gap 5 mmol/L 09/08/20 05:09 BUN 18 mg/dL (9-20) 09/08/20 05:09 Creatinine 0.9 mg/dL (0.8-1.3) 09/08/20 05:09 Estimated GFR > 60 ml/min 09/08/20 05:09 BUN/Creatinine Ratio 20 % 09/08/20 05:09 Glucose 120 mg/dL (75-100) H 09/08/20 05:09 POC Glucose 110 mg/dL (70-105) H 09/08/20 07:55 Hemoglobin A1c 5.8 % (4-6) 08/25/20 07:27 Calcium 6.1 mg/dL (8.4-10.2) L 09/08/20 05:09 Magnesium 1.80 mg/dL (1.7-2.3) 09/08/20 05:09 Iron 58 ug/dL (49-181) 09/04/20 05:53 TIBC 214 mcg/dL (250-450) L 09/04/20 05:53 Total Bilirubin 0.40 mg/dL (0.1-1.2) 08/24/20 19:29 AST 21 units/L (5-40) 08/24/20 19:29 ALT 36 units/L (7-56) 08/24/20 19:29 Alkaline Phosphatase 154 units/L (35-129) H 08/24/20 19:29 Troponin T < 0.010 ng/mL (0.00-0.029) 09/04/20 05:53 Total Protein 6.5 g/dL (6.3-8.2) 08/24/20 19:29 Albumin 3.4 g/dL (3.9-5) L 08/24/20 19:29 Albumin/Globulin Ratio 1.1 % 08/24/20 19:29 Arterial Blood Glucose 302 mg/dL (65-95) H 08/28/20 11:00 Arterial Blood Ionized Calcium 3.8 mg/dL (4.6-5.3) L 08/28/20 11:00 Lymph Enumerat CD4/CD8 0.68 (0.86-5.00) L 09/04/20 05:53 % CD3 Cells 51 % (57-85) L 09/04/20 05:53 Absolute CD3 Count 50 cells/uL (840-3060) L 09/04/20 05:53 % CD4 Cells 20 % (30-61) L 09/04/20 05:53 Absolute CD4 Count 20 cells/uL (490-1740) L 09/04/20 05:53 % CD8 Cells 30 % (12-42) 09/04/20 05:53 Absolute CD8 Count 29 cells/uL (180-1170) L 09/04/20 05:53 % CD19 Cells 17 % (6-29) 09/04/20 05:53 Absolute CD19 Count 17 cells/uL (110-660) L 09/04/20 05:53 Coronavirus (PCR) Negative (Negative) 09/01/20 Unknown Blood Type A POSITIVE 09/03/20 09:56 Antibody Screen Negative 09/03/20 09:56 Crossmatch See Detail 09/03/20 09:56 [place]/IV: Voiding Method Urinal Active Medications - Current Medications Current Medications: Generic Name Dose Route Start Last Admin Trade Name Freq PRN Reason Stop Dose Admin Acetaminophen 650 mg 08/24/20 22:12 Acetaminophen 325 Mg Tab PO Q4H PRN Pain MILD(1-3)/Fever >100.5/KOENIG Alprazolam 0.25 mg 08/30/20 11:30 09/08/20 00:19 Alprazolam 0.25 Mg Tab PO 0.25 mg Q8H PRN Administration Anxiety Arformoterol Tartrate 15 mcg 08/25/20 20:00 09/08/20 09:44 Arformoterol 15 Mcg/2 Ml Nebu IH Not Given Q12HRT NADIA Aspirin 81 mg 08/25/20 10:00 09/07/20 09:30 Aspirin Ec 81 Mg Tab PO 81 mg QDAY NADIA Administration Atorvastatin Calcium 40 mg 08/25/20 22:00 09/08/20 00:11 Atorvastatin 40 Mg Tab PO 40 mg QHS NADIA Administration Budesonide 0.5 mg 08/25/20 08:00 09/08/20 09:44 Budesonide 0.5 Mg/2 Ml Nebu IH Not Given Q12HRT [facility] Calcium Carbonate/Glycine 500 mg 09/06/20 09:00 09/08/20 00:11 Calcium Carbonate 500 Mg Tab Chew PO 500 mg TID [facility] Administration Carvedilol 6.25 mg 09/02/20 12:00 09/08/20 00:11 Carvedilol 6.25 Mg Tab PO 6.25 mg BID [facility] Administration Guaifenesin 400 mg 08/29/20 13:00 08/30/20 05:33 Guaifenesin 200 Mg Tab PO 400 mg Q4HR PRN Administration Cough Heparin Sodium (Porcine) 5,000 unit 08/25/20 06:00 09/08/20 05:55 Heparin 5,000 Unit/1 Ml Vial SUB-Q 5,000 unit Q8HR [facility] Administration Hydralazine HCl 10 mg 08/24/20 22:14 08/31/20 13:40 Hydralazine 20 Mg/1 Ml Inj IV 10 mg Q6H PRN Administration SBP>/=160; DBP >/=100 Insulin Human Isoph/Insulin Regular 10 unit 09/01/20 17:00 09/08/20 09:03 Insulin Nph/Regular 70/30 Inj SUB-Q Not Given BIDDIAB [facility] Insulin Human Lispro 0 unit 08/25/20 22:00 09/08/20 00:13 Insulin Lispro 100 Unit/Ml SUB-Q 3 unit QHS [facility] Administration Protocol Ipratropium [place] 0.5 mg 09/02/20 16:00 09/08/20 09:44 Ipratropium 0.02% Nebu 2.5 Ml IH Not Given Q8HRT [facility] Ketorolac Tromethamine 15 mg 09/07/20 15:22 09/07/20 17:32 Ketorolac 30 Mg/1 Ml Inj IV 09/12/20 15:21 15 mg Q8HR PRN Administration Pain, Mild (1-3) Levalbuterol HCl 0.63 mg 09/01/20 18:00 09/08/20 09:44 Levalbuterol 0.63 Mg/3 Ml Nebu IH Not Given Q8HRT [facility] Mirtazapine 7.5 mg 08/25/20 22:00 09/08/20 00:12 Mirtazapine 15 Mg Tab PO 7.5 mg QHS NADIA Administration Montelukast Sodium 10 mg 08/25/20 22:00 09/08/20 00:12 Montelukast 10 Mg Tab PO 10 mg QHS NADIA Administration Multivitamins 1 each 09/04/20 10:00 09/07/20 09:30 Multivitamins ,Therapeutic Tab PO 1 each QDAY NADIA Administration Multivitamins/Iron 1 each 09/04/20 10:00 09/07/20 09:29 Fe Fumarate/Fa/Mv, Min Comb#15 Cap (Hemocyte Plus) PO 1 each QDAY NADIA Administration Ondansetron HCl 4 mg 08/24/20 22:12 Ondansetron 4 Mg/2 Ml Inj IV Q8H PRN Nausea And Vomiting Oxycodone/Acetaminophen 1 tab 08/24/20 22:23 09/06/20 21:35 Oxycodone /Acetaminophen 5-325mg Tab PO 1 tab BID PRN Administration Pain , Severe (7-10) Pantoprazole Sodium 40 mg 08/25/20 10:00 09/07/20 09:30 Pantoprazole 40 Mg Tab PO 40 mg QDAY NADIA Administration Polyethylene Glycol 17 gm 08/28/20 10:00 09/07/20 12:24 Polyethylene Glycol 3350 17 Gm Powder PO Not Given QDAY NADIA Sodium Chloride 10 ml 08/25/20 10:00 09/08/20 00:14 Sodium Chloride 0.9% 10 Ml Flush Syringe IV 10 ml BID NADIA Administration Sodium Chloride 10 ml 08/24/20 22:12 Sodium Chloride 0.9% 10 Ml Flush Syringe IV PRN PRN LINE FLUSH Tramadol HCl 50 mg 08/24/20 22:23 09/01/20 05:05 Tramadol 50 Mg Tab PO 50 mg Q6HR PRN Administration Pain, Moderate (4-6) Nutrition/Malnutrition Assess - Dietary Evaluation Nutrition/Malnutrition Findings: Nutrition Notes Start: 08/25/20 08:25 Freq: Status: Active Protocol: Document 09/06/20 14:39 MK (Rec: 09/06/20 14:43 SERGIO [id number]) Nutrition Notes Initial or Follow up Reassessment Current Diagnosis COPD,Hypertension,Respiratory Failure Other Pertinent Diagnosis HIV Current Diet Cardiac, consistent CHO Labs/Tests Na 151 K 3.3 Ca 5.8 Pertinent Medications MVI, Iron, Tums Height 5 ft 5 in Weight 51.4 kg [place] Body Weight (kg) 61.81 BMI 18.8 Weight change and time frame 19% wt loss in 2 weeks Weight Status Underweight Subjective/Other Information FU for intakes. Pt does not like ONS but is willing to try Ensure Clears. Pt eating <25% of meals. Percent of energy/protein needs met: Negigible Burn Absent Trauma Absent Current % PO Negligible Minimum of two criteria No Energy Intake (non-severe) <75% Estimated Energy Requirement >7 days Interpretation of Weight Loss (severe) >5% in 1 month #2 Nutrition Diagnosis Malnutrition Etiology acute illness As Evidenced by Signs and Symptoms <75% of EER in 7 days, >5% wt loss in one month #1 Nutrition Diagnosis Inadequate oral intake Diagnosis Progress(for reassessment Continues documentation) Is patient on ventilator? No Is Patient Ambulatory and/or Out of Bed No REE-([facility]-confined to bed) [phone] Calculation Used for Recommendations [facility] Additional Notes Protein: (1.2-1.5g/kg) 62-77g Fluid: 1 ml/kcal Nutrition Intervention Change Diet Order: Continue Add Supplement/Snack (indicate name/kcal Ensure Clear BID /protein ) Provides kCal: 480 Provides Protein (gm) 16 Goal #1 Meet at least 75% of protein and energy needs via PO and ONS intakes Anticipated Discharge Needs: Cardiac Follow-Up By: 09/08/20 Additional Comments FU for intakes and ONS tolerance
[2020-09-08] MEDS: oxyCODONE /ACETAMINOPHEN 5-325MG TAB PO PRN (11:10)
[2020-09-08] MEDS: PANTOPRAZOLE 40 MG TAB PO SCH (11:45)
[2020-09-08] MEDS: MULTIVITAMINS ,THERAPEUTIC TAB PO SCH (11:45)
[2020-09-08] MEDS: ASPIRIN EC 81 MG TAB PO SCH (11:45)
[2020-09-08] MEDS: POLYETHYLENE GLYCOL 3350 17 GM POWDER PO SCH (11:46)
[2020-09-08] MEDS: FE FUMARATE/FA/MV, MIN COMB#15 CAP (HEMOCYTE PLUS) PO SCH (11:46)
--- NOTE | 2020-09-08 13:16 | Progress Note ---
Assessment and Plan Acute hypoxemic respiratory failure Acute COPD exacerbation ANGELIC GERD (gastroesophageal reflux disease) HIV (human immunodeficiency virus infection) Hypertension Cocaine use Tobacco use disorder - discharge planning ok pulmonary-rodriguez - no new issues, continue care as below; - resume low dose Prednisone for severe COPD exacerbation - continue to wean supplemental oxygen to keep O2 sats > 90% - continue Bronchodilators (HEIDI & LABA) with pulm hygiene per RT - continue inhaled corticosteroids - avoid nephrotoxins, renally dose all medications - continue mobility protocols to prevent pressure ulcers - PT/OT as tolerated - Wound care per RN/WCT - continue accuchecks with glycemic control per SSI for target blood glucose < 180 mg/dL - tobacco abstinence strongly counseled at the bedside - home oxygen evaluation at discharge - GI & VTE prophylaxis - Flu & pneumovax per protocol - Pulmonary out patient follow up for PFTs and optimization of respiratory status - continue other care per attending / other consultants - prn analgesia per pain score ... re-evaluate in am & prn Subjective Date of service: 09/08/20 Principal diagnosis: Ac hypoxemic resp failure; AE-COPD; ANGELIC; HIV +ve; HTN; Cocaine Use Interval history: Patient is seen today for: Acute hypoxemic respiratory failure; AE-COPD; ANGELIC; HIV infection; HTN; Cocaine use; Tobacco use disorder Seen and examined at bedside; 24hour events reviewed; nursing and respiratory care staff consulted; no adverse overnight events reported to me; resting in bed; remains on supplemental oxygen; discharge planning ongoing; No N/V/F/C/chest pains or palpitations Objective Vital Signs - 12hr 09/08/20 09/08/20 09/08/20 03:43 07:48 10:00 Temperature 97.3 F L 97.8 F Pulse Rate 82 71 78 Respiratory 17 19 18 Rate Blood Pressure 111/62 86/52 O2 Sat by Pulse 97 100 99 Oximetry 09/08/20 11:55 Temperature 98.1 F Pulse Rate 78 Respiratory 19 Rate Blood Pressure 98/53 O2 Sat by Pulse 100 Oximetry Constitutional: no acute distress, other (mildly increased work of breathing at rest) Eyes: non-icteric ENT: oropharynx moist Neck: supple, no JVD Effort: mildly labored Ascultation: Bilateral: diminished breath sounds, rhonchi, other (Prolonged exp iratory phase.) Percussion: Bilateral: not dull Cardiovascular: regular rate and rhythm Gastrointestinal: normoactive bowel sounds, soft, non-tender, non-distended Integumentary: normal Extremities: no cyanosis, no edema, pulses normal, no ischemia or petechiae Neurologic: normal mental status, non-focal exam, pupils equal and round, motor strength normal and Psychiatric: mood appropriate, affect normal CBC and BMP: 09/05/20 04:56 09/08/20 05:09 ABG, PT/INR, D-dimer: ABG ABG pH 7.316 (7.320-7.450) L 08/28/20 11:00 POC ABG pCO2 68.0 mmHg (32.0-48.0) H 08/28/20 11:00 POC ABG pO2 75.4 mmHg (83-108) L 08/28/20 11:00 POC ABG HCO3 33.9 08/28/20 11:00 ABG O2 Saturation 93.6 (0-100) 08/28/20 11:00 Abnormal lab findings: Abnormal Labs 08/24/20 08/24/20 08/25/20 19:29 19:29 07:00 WBC RBC 3.36 L Hgb 9.7 L Hct 28.5 L MCH MCHC RDW 20.6 H Seg Neuts % (Manual) 97.0 H Lymphocytes % (Manual) 1.0 L Seg Neutrophils # Man 10.2 H Abs Lymphs (Manual) Lymphocytes # (Manual) 0.1 L ABG pH POC ABG pCO2 POC ABG pO2 ABG Hemoglobin ABG Oxyhemoglobin ABG Glucose Sodium Potassium 3.3 L Carbon Dioxide BUN Glucose 121 H POC Glucose 211 H Calcium 7.6 L TIBC Alkaline Phosphatase 154 H Albumin 3.4 L Arterial Blood Glucose Arterial Blood Ionized Calcium Lymph Enumerat CD4/CD8 % CD3 Cells Absolute CD3 Count % CD4 Cells Absolute CD4 Count Absolute CD8 Count Absolute CD19 Count Crossmatch 08/25/20 08/25/20 08/25/20 07:21 07:21 12:06 WBC RBC 3.13 L Hgb 8.9 L Hct 26.5 L MCH MCHC RDW 20.6 H Seg Neuts % (Manual) 96.0 H Lymphocytes % (Manual) 3.0 L Seg Neutrophils # Man Abs Lymphs (Manual) Lymphocytes # (Manual) 0.2 L ABG pH POC ABG pCO2 POC ABG pO2 ABG Hemoglobin ABG Oxyhemoglobin ABG Glucose Sodium Potassium Carbon Dioxide 31 H BUN Glucose 208 H POC Glucose 162 H Calcium 7.4 L TIBC Alkaline Phosphatase Albumin Arterial Blood Glucose Arterial Blood Ionized Calcium Lymph Enumerat CD4/CD8 % CD3 Cells Absolute CD3 Count % CD4 Cells Absolute CD4 Count Absolute CD8 Count Absolute CD19 Count Crossmatch 08/25/20 08/25/20 08/26/20 17:01 21:52 05:09 WBC 14.9 H RBC 3.11 L Hgb 8.9 L Hct 26.7 L MCH MCHC RDW 20.6 H Seg Neuts % (Manual) Lymphocytes % (Manual) Seg Neutrophils # Man Abs Lymphs (Manual) Lymphocytes # (Manual) ABG pH POC ABG pCO2 POC ABG pO2 ABG Hemoglobin ABG Oxyhemoglobin ABG Glucose Sodium Potassium Carbon Dioxide BUN Glucose POC Glucose 158 H 175 H Calcium TIBC Alkaline Phosphatase Albumin Arterial Blood Glucose Arterial Blood Ionized Calcium Lymph Enumerat CD4/CD8 % CD3 Cells Absolute CD3 Count % CD4 Cells Absolute CD4 Count Absolute CD8 Count Absolute CD19 Count Crossmatch 08/26/20 08/26/20 08/26/20 05:09 07:21 11:21 WBC RBC Hgb Hct MCH MCHC RDW Seg Neuts % (Manual) Lymphocytes % (Manual) Seg Neutrophils # Man Abs Lymphs (Manual) Lymphocytes # (Manual) ABG pH POC ABG pCO2 POC ABG pO2 ABG Hemoglobin ABG Oxyhemoglobin ABG Glucose Sodium Potassium Carbon Dioxide 31 H BUN 21 H Glucose 183 H POC Glucose 149 H 145 H Calcium 7.0 L TIBC Alkaline Phosphatase Albumin Arterial Blood Glucose Arterial Blood Ionized Calcium Lymph Enumerat CD4/CD8 % CD3 Cells Absolute CD3 Count % CD4 Cells Absolute CD4 Count Absolute CD8 Count Absolute CD19 Count Crossmatch 08/26/20 08/26/20 08/27/20 16:49 21:19 04:41 WBC 11.5 H RBC 2.93 L Hgb 8.0 L Hct 25.2 L MCH 27 L MCHC RDW 21.0 H Seg Neuts % (Manual) Lymphocytes % (Manual) Seg Neutrophils # Man Abs Lymphs (Manual) Lymphocytes # (Manual) ABG pH POC ABG pCO2 POC ABG pO2 ABG Hemoglobin ABG Oxyhemoglobin ABG Glucose Sodium Potassium Carbon Dioxide BUN Glucose POC Glucose 177 H 144 H Calcium TIBC Alkaline Phosphatase Albumin Arterial Blood Glucose Arterial Blood Ionized Calcium Lymph Enumerat CD4/CD8 % CD3 Cells Absolute CD3 Count % CD4 Cells Absolute CD4 Count Absolute CD8 Count Absolute CD19 Count Crossmatch 08/27/20 08/27/20 08/27/20 04:41 07:25 07:30 WBC RBC Hgb Hct MCH MCHC RDW Seg Neuts % (Manual) Lymphocytes % (Manual) Seg Neutrophils # Man Abs Lymphs (Manual) Lymphocytes # (Manual) ABG pH POC ABG pCO2 POC ABG pO2 ABG Hemoglobin ABG Oxyhemoglobin ABG Glucose Sodium Potassium Carbon Dioxide 35 H BUN 24 H Glucose 173 H POC Glucose 153 H 143 H Calcium 7.3 L TIBC Alkaline Phosphatase Albumin Arterial Blood Glucose Arterial Blood Ionized Calcium Lymph Enumerat CD4/CD8 % CD3 Cells Absolute CD3 Count % CD4 Cells Absolute CD4 Count Absolute CD8 Count Absolute CD19 Count Crossmatch 08/27/20 08/27/20 08/27/20 11:27 15:49 21:17 WBC RBC Hgb Hct MCH MCHC RDW Seg Neuts % (Manual) Lymphocytes % (Manual) Seg Neutrophils # Man Abs Lymphs (Manual) Lymphocytes # (Manual) ABG pH POC ABG pCO2 POC ABG pO2 ABG Hemoglobin ABG Oxyhemoglobin ABG Glucose Sodium Potassium Carbon Dioxide BUN Glucose POC Glucose 236 H 184 H 144 H Calcium TIBC Alkaline Phosphatase Albumin Arterial Blood Glucose Arterial Blood Ionized Calcium Lymph Enumerat CD4/CD8 % CD3 Cells Absolute CD3 Count % CD4 Cells Absolute CD4 Count Absolute CD8 Count Absolute CD19 Count Crossmatch 08/28/20 08/28/20 08/28/20 05:55 05:55 07:25 WBC RBC 2.58 L Hgb 7.6 L Hct 22.1 L MCH MCHC 35 H RDW 20.3 H Seg Neuts % (Manual) Lymphocytes % (Manual) Seg Neutrophils # Man Abs Lymphs (Manual) Lymphocytes # (Manual) ABG pH POC ABG pCO2 POC ABG pO2 ABG Hemoglobin ABG Oxyhemoglobin ABG Glucose Sodium Potassium 3.5 L Carbon Dioxide BUN 33 H Glucose 183 H POC Glucose 164 H Calcium 6.8 L TIBC Alkaline Phosphatase Albumin Arterial Blood Glucose Arterial Blood Ionized Calcium Lymph Enumerat CD4/CD8 % CD3 Cells Absolute CD3 Count % CD4 Cells Absolute CD4 Count Absolute CD8 Count Absolute CD19 Count Crossmatch 08/28/20 08/28/20 08/28/20 11:00 12:06 15:28 WBC RBC Hgb Hct MCH MCHC RDW Seg Neuts % (Manual) Lymphocytes % (Manual) Seg Neutrophils # Man Abs Lymphs (Manual) Lymphocytes # (Manual) ABG pH 7.316 L POC ABG pCO2 68.0 H POC ABG pO2 75.4 L ABG Hemoglobin 8.3 L ABG Oxyhemoglobin 92.5 L ABG Glucose 302 H Sodium Potassium Carbon Dioxide BUN Glucose POC Glucose 233 H 146 H Calcium TIBC Alkaline Phosphatase Albumin Arterial Blood Glucose 302 H Arterial Blood Ionized Calcium 3.8 L Lymph Enumerat CD4/CD8 % CD3 Cells Absolute CD3 Count % CD4 Cells Absolute CD4 Count Absolute CD8 Count Absolute CD19 Count Crossmatch 08/28/20 08/29/20 08/29/20 21:34 07:26 12:05 WBC RBC Hgb Hct MCH MCHC RDW Seg Neuts % (Manual) Lymphocytes % (Manual) Seg Neutrophils # Man Abs Lymphs (Manual) Lymphocytes # (Manual) ABG pH POC ABG pCO2 POC ABG pO2 ABG Hemoglobin ABG Oxyhemoglobin ABG Glucose Sodium Potassium Carbon Dioxide BUN Glucose POC Glucose 201 H 167 H 253 H Calcium TIBC Alkaline Phosphatase Albumin Arterial Blood Glucose Arterial Blood Ionized Calcium Lymph Enumerat CD4/CD8 % CD3 Cells Absolute CD3 Count % CD4 Cells Absolute CD4 Count Absolute CD8 Count Absolute CD19 Count Crossmatch 08/29/20 08/29/20 08/30/20 16:32 21:56 07:53 WBC RBC Hgb Hct MCH MCHC RDW Seg Neuts % (Manual) Lymphocytes % (Manual) Seg Neutrophils # Man Abs Lymphs (Manual) Lymphocytes # (Manual) ABG pH POC ABG pCO2 POC ABG pO2 ABG Hemoglobin ABG Oxyhemoglobin ABG Glucose Sodium Potassium Carbon Dioxide BUN Glucose POC Glucose 128 H 220 H 286 H Calcium TIBC Alkaline Phosphatase Albumin Arterial Blood Glucose Arterial Blood Ionized Calcium Lymph Enumerat CD4/CD8 % CD3 Cells Absolute CD3 Count % CD4 Cells Absolute CD4 Count Absolute CD8 Count Absolute CD19 Count Crossmatch 08/30/20 08/30/20 08/30/20 11:29 17:32 22:03 WBC RBC Hgb Hct MCH MCHC RDW Seg Neuts % (Manual) Lymphocytes % (Manual) Seg Neutrophils # Man Abs Lymphs (Manual) Lymphocytes # (Manual) ABG pH POC ABG pCO2 POC ABG pO2 ABG Hemoglobin ABG Oxyhemoglobin ABG Glucose Sodium Potassium Carbon Dioxide BUN Glucose POC Glucose 299 H 260 H 196 H Calcium TIBC Alkaline Phosphatase Albumin Arterial Blood Glucose Arterial Blood Ionized Calcium Lymph Enumerat CD4/CD8 % CD3 Cells Absolute CD3 Count % CD4 Cells Absolute CD4 Count Absolute CD8 Count Absolute CD19 Count Crossmatch 08/31/20 08/31/20 08/31/20 07:41 11:26 16:19 WBC RBC Hgb Hct MCH MCHC RDW Seg Neuts % (Manual) Lymphocytes % (Manual) Seg Neutrophils # Man Abs Lymphs (Manual) Lymphocytes # (Manual) ABG pH POC ABG pCO2 POC ABG pO2 ABG Hemoglobin ABG Oxyhemoglobin ABG Glucose Sodium Potassium Carbon Dioxide BUN Glucose POC Glucose 166 H 269 H 265 H Calcium TIBC Alkaline Phosphatase Albumin Arterial Blood Glucose Arterial Blood Ionized Calcium Lymph Enumerat CD4/CD8 % CD3 Cells Absolute CD3 Count % CD4 Cells Absolute CD4 Count Absolute CD8 Count Absolute CD19 Count Crossmatch 08/31/20 09/01/20 09/01/20 20:44 07:40 11:39 WBC RBC Hgb Hct MCH MCHC RDW Seg Neuts % (Manual) Lymphocytes % (Manual) Seg Neutrophils # Man Abs Lymphs (Manual) Lymphocytes # (Manual) ABG pH POC ABG pCO2 POC ABG pO2 ABG Hemoglobin ABG Oxyhemoglobin ABG Glucose Sodium Potassium Carbon Dioxide BUN Glucose POC Glucose 243 H 272 H 320 H Calcium TIBC Alkaline Phosphatase Albumin Arterial Blood Glucose Arterial Blood Ionized Calcium Lymph Enumerat CD4/CD8 % CD3 Cells Absolute CD3 Count % CD4 Cells Absolute CD4 Count Absolute CD8 Count Absolute CD19 Count Crossmatch 09/01/20 09/01/20 09/02/20 16:16 21:59 08:32 WBC RBC Hgb Hct MCH MCHC RDW Seg Neuts % (Manual) Lymphocytes % (Manual) Seg Neutrophils # Man Abs Lymphs (Manual) Lymphocytes # (Manual) ABG pH POC ABG pCO2 POC ABG pO2 ABG Hemoglobin ABG Oxyhemoglobin ABG Glucose Sodium Potassium Carbon Dioxide BUN Glucose POC Glucose 319 H 157 H 195 H Calcium TIBC Alkaline Phosphatase Albumin Arterial Blood Glucose Arterial Blood Ionized Calcium Lymph Enumerat CD4/CD8 % CD3 Cells Absolute CD3 Count % CD4 Cells Absolute CD4 Count Absolute CD8 Count Absolute CD19 Count Crossmatch 09/02/20 09/02/20 09/03/20 11:44 20:09 05:02 WBC RBC 2.25 L Hgb 6.5 L Hct 19.7 L* MCH MCHC RDW 21.3 H Seg Neuts % (Manual) Lymphocytes % (Manual) Seg Neutrophils # Man Abs Lymphs (Manual) Lymphocytes # (Manual) ABG pH POC ABG pCO2 POC ABG pO2 ABG Hemoglobin ABG Oxyhemoglobin ABG Glucose Sodium Potassium Carbon Dioxide BUN Glucose POC Glucose 167 H 214 H Calcium TIBC Alkaline Phosphatase Albumin Arterial Blood Glucose Arterial Blood Ionized Calcium Lymph Enumerat CD4/CD8 % CD3 Cells Absolute CD3 Count % CD4 Cells Absolute CD4 Count Absolute CD8 Count Absolute CD19 Count Crossmatch 09/03/20 09/03/20 09/03/20 05:02 07:35 09:56 WBC RBC Hgb Hct MCH MCHC RDW Seg Neuts % (Manual) Lymphocytes % (Manual) Seg Neutrophils # Man Abs Lymphs (Manual) Lymphocytes # (Manual) ABG pH POC ABG pCO2 POC ABG pO2 ABG Hemoglobin ABG Oxyhemoglobin ABG Glucose Sodium 149 H Potassium 3.3 L Carbon Dioxide 38 H BUN 30 H Glucose 212 H POC Glucose 207 H Calcium 6.7 L TIBC Alkaline Phosphatase Albumin Arterial Blood Glucose Arterial Blood Ionized Calcium Lymph Enumerat CD4/CD8 % CD3 Cells Absolute CD3 Count % CD4 Cells Absolute CD4 Count Absolute CD8 Count Absolute CD19 Count Crossmatch See Detail 09/03/20 09/03/20 09/04/20 12:05 16:04 05:53 WBC 14.8 H RBC 2.99 L Hgb 8.6 L Hct 26.4 L D MCH MCHC RDW 19.0 H Seg Neuts % (Manual) Lymphocytes % (Manual) Seg Neutrophils # Man Abs Lymphs (Manual) Lymphocytes # (Manual) ABG pH POC ABG pCO2 POC ABG pO2 ABG Hemoglobin ABG Oxyhemoglobin ABG Glucose Sodium Potassium Carbon Dioxide BUN Glucose POC Glucose 193 H 174 H Calcium TIBC Alkaline Phosphatase Albumin Arterial Blood Glucose Arterial Blood Ionized Calcium Lymph Enumerat CD4/CD8 % CD3 Cells Absolute CD3 Count % CD4 Cells Absolute CD4 Count Absolute CD8 Count Absolute CD19 Count Crossmatch 09/04/20 09/04/20 09/04/20 05:53 05:53 08:33 WBC RBC Hgb Hct MCH MCHC RDW Seg Neuts % (Manual) Lymphocytes % (Manual) Seg Neutrophils # Man Abs Lymphs (Manual) 98 L Lymphocytes # (Manual) ABG pH POC ABG pCO2 POC ABG pO2 ABG Hemoglobin ABG Oxyhemoglobin ABG Glucose Sodium 149 H Potassium Carbon Dioxide 39 H BUN 28 H Glucose 175 H POC Glucose 222 H Calcium 6.9 L TIBC 214 L Alkaline Phosphatase Albumin Arterial Blood Glucose Arterial Blood Ionized Calcium Lymph Enumerat CD4/CD8 0.68 L % CD3 Cells 51 L Absolute CD3 Count 50 L % CD4 Cells 20 L Absolute CD4 Count 20 L Absolute CD8 Count 29 L Absolute CD19 Count 17 L Crossmatch 09/04/20 09/04/20 09/05/20 11:21 15:42 04:56 WBC RBC 2.88 L Hgb 8.6 L Hct 25.3 L MCH MCHC RDW 19.6 H Seg Neuts % (Manual) Lymphocytes % (Manual) Seg Neutrophils # Man Abs Lymphs (Manual) Lymphocytes # (Manual) ABG pH POC ABG pCO2 POC ABG pO2 ABG Hemoglobin ABG Oxyhemoglobin ABG Glucose Sodium Potassium Carbon Dioxide BUN Glucose POC Glucose 253 H 240 H Calcium TIBC Alkaline Phosphatase Albumin Arterial Blood Glucose Arterial Blood Ionized Calcium Lymph Enumerat CD4/CD8 % CD3 Cells Absolute CD3 Count % CD4 Cells Absolute CD4 Count Absolute CD8 Count Absolute CD19 Count Crossmatch 09/05/20 09/05/20 09/05/20 04:56 07:31 12:01 WBC RBC Hgb Hct MCH MCHC RDW Seg Neuts % (Manual) Lymphocytes % (Manual) Seg Neutrophils # Man Abs Lymphs (Manual) Lymphocytes # (Manual) ABG pH POC ABG pCO2 POC ABG pO2 ABG Hemoglobin ABG Oxyhemoglobin ABG Glucose Sodium 149 H Potassium 3.1 L Carbon Dioxide 48 H* D BUN 24 H Glucose 142 H POC Glucose 131 H 124 H Calcium 6.5 L TIBC Alkaline Phosphatase Albumin Arterial Blood Glucose Arterial Blood Ionized Calcium Lymph Enumerat CD4/CD8 % CD3 Cells Absolute CD3 Count % CD4 Cells Absolute CD4 Count Absolute CD8 Count Absolute CD19 Count Crossmatch 09/05/20 09/05/20 09/06/20 16:52 20:19 04:26 WBC RBC Hgb Hct MCH MCHC RDW Seg Neuts % (Manual) Lymphocytes % (Manual) Seg Neutrophils # Man Abs Lymphs (Manual) Lymphocytes # (Manual) ABG pH POC ABG pCO2 POC ABG pO2 ABG Hemoglobin ABG Oxyhemoglobin ABG Glucose Sodium 151 H Potassium 3.3 L Carbon Dioxide 44 H* BUN 24 H Glucose POC Glucose 168 H 130 H Calcium 5.8 L* TIBC Alkaline Phosphatase Albumin Arterial Blood Glucose Arterial Blood Ionized Calcium Lymph Enumerat CD4/CD8 % CD3 Cells Absolute CD3 Count % CD4 Cells Absolute CD4 Count Absolute CD8 Count Absolute CD19 Count Crossmatch 09/06/20 09/06/20 09/06/20 11:51 15:19 20:20 WBC RBC Hgb Hct MCH MCHC RDW Seg Neuts % (Manual) Lymphocytes % (Manual) Seg Neutrophils # Man Abs Lymphs (Manual) Lymphocytes # (Manual) ABG pH POC ABG pCO2 POC ABG pO2 ABG Hemoglobin ABG Oxyhemoglobin ABG Glucose Sodium Potassium Carbon Dioxide BUN Glucose POC Glucose 150 H 113 H 138 H Calcium TIBC Alkaline Phosphatase Albumin Arterial Blood Glucose Arterial Blood Ionized Calcium Lymph Enumerat CD4/CD8 % CD3 Cells Absolute CD3 Count % CD4 Cells Absolute CD4 Count Absolute CD8 Count Absolute CD19 Count Crossmatch 09/07/20 09/07/20 09/07/20 07:41 09:41 11:47 WBC RBC Hgb Hct MCH MCHC RDW Seg Neuts % (Manual) Lymphocytes % (Manual) Seg Neutrophils # Man Abs Lymphs (Manual) Lymphocytes # (Manual) ABG pH POC ABG pCO2 POC ABG pO2 ABG Hemoglobin ABG Oxyhemoglobin ABG Glucose Sodium 146 H Potassium Carbon Dioxide 43 H* BUN 24 H Glucose 186 H POC Glucose 118 H 198 H Calcium 6.1 L TIBC Alkaline Phosphatase Albumin Arterial Blood Glucose Arterial Blood Ionized Calcium Lymph Enumerat CD4/CD8 % CD3 Cells Absolute CD3 Count % CD4 Cells Absolute CD4 Count Absolute CD8 Count Absolute CD19 Count Crossmatch 09/07/20 09/08/20 09/08/20 21:58 05:09 07:55 WBC RBC Hgb Hct MCH MCHC RDW Seg Neuts % (Manual) Lymphocytes % (Manual) Seg Neutrophils # Man Abs Lymphs (Manual) Lymphocytes # (Manual) ABG pH POC ABG pCO2 POC ABG pO2 ABG Hemoglobin ABG Oxyhemoglobin ABG Glucose Sodium 146 H Potassium Carbon Dioxide 47 H* BUN Glucose 120 H POC Glucose 215 H 110 H Calcium 6.1 L TIBC Alkaline Phosphatase Albumin Arterial Blood Glucose Arterial Blood Ionized Calcium Lymph Enumerat CD4/CD8 % CD3 Cells Absolute CD3 Count % CD4 Cells Absolute CD4 Count Absolute CD8 Count Absolute CD19 Count Crossmatch 09/08/20 11:27 WBC RBC Hgb Hct MCH MCHC RDW Seg Neuts % (Manual) Lymphocytes % (Manual) Seg Neutrophils # Man Abs Lymphs (Manual) Lymphocytes # (Manual) ABG pH POC ABG pCO2 POC ABG pO2 ABG Hemoglobin ABG Oxyhemoglobin ABG Glucose Sodium Potassium Carbon Dioxide BUN Glucose POC Glucose 113 H Calcium TIBC Alkaline Phosphatase Albumin Arterial Blood Glucose Arterial Blood Ionized Calcium Lymph Enumerat CD4/CD8 % CD3 Cells Absolute CD3 Count % CD4 Cells Absolute CD4 Count Absolute CD8 Count Absolute CD19 Count Crossmatch Allied health notes reviewed: nursing
[2020-09-09] MEDS: ALPRAZolam 0.25 MG TAB PO PRN (01:46)
[2020-09-09] MEDS: traMADol 50 MG TAB PO PRN (01:47)
[2020-09-09] MEDS: HEPARIN 5,000 UNIT/1 ML VIAL SUB-Q SCH ×3 (06:04→21:30)
[2020-09-09] MEDS: LEVALBUTEROL 0.63 MG/3 ML NEBU IH SCH ×2 (07:48→15:35)
[2020-09-09] MEDS: ARFORMOTEROL 15 MCG/2 ML NEBU IH SCH ×2 (07:49→19:48)
[2020-09-09] MEDS: IPRATROPIUM 0.02% NEBU 2.5 ML IH SCH ×2 (07:49→15:35)
[2020-09-09] MEDS: BUDESONIDE 0.5 MG/2 ML NEBU IH SCH ×2 (07:49→19:48)
[2020-09-09] MEDS: INSULIN NPH/REGULAR 70/30 INJ SUB-Q SCH ×2 (09:50→16:59)
[2020-09-09] MEDS: PANTOPRAZOLE 40 MG TAB PO SCH (09:54)
[2020-09-09] MEDS: ASPIRIN EC 81 MG TAB PO SCH (09:54)
[2020-09-09] MEDS: carvediloL 6.25 MG TAB PO SCH ×2 (09:54→21:32)
[2020-09-09] MEDS: CALCIUM CARBONATE 500 MG TAB CHEW PO SCH ×3 (09:54→21:30)
[2020-09-09] MEDS: MULTIVITAMINS ,THERAPEUTIC TAB PO SCH (09:54)
[2020-09-09] MEDS: FE FUMARATE/FA/MV, MIN COMB#15 CAP (HEMOCYTE PLUS) PO SCH (09:54)
[2020-09-09] MEDS: POLYETHYLENE GLYCOL 3350 17 GM POWDER PO SCH (09:55)
[2020-09-09] MEDS: oxyCODONE /ACETAMINOPHEN 5-325MG TAB PO PRN ×2 (10:04→21:41)
--- NOTE | 2020-09-09 10:27 | Progress Note ---
Assessment and Plan Acute hypoxemic respiratory failure Acute COPD exacerbation ANGELIC GERD (gastroesophageal reflux disease) HIV (human immunodeficiency virus infection) Hypertension Cocaine use Tobacco use disorder - discharge planning ok pulmonary-rodriguez - no new issues, continue care as below; - resume low dose Prednisone for severe COPD exacerbation - continue to wean supplemental oxygen to keep O2 sats > 90% - continue Bronchodilators (HEIDI & LABA) with pulm hygiene per RT - continue inhaled corticosteroids - avoid nephrotoxins, renally dose all medications - continue mobility protocols to prevent pressure ulcers - PT/OT as tolerated - Wound care per RN/WCT - continue accuchecks with glycemic control per SSI for target blood glucose < 180 mg/dL - tobacco abstinence strongly counseled at the bedside - home oxygen evaluation at discharge - GI & VTE prophylaxis - Flu & pneumovax per protocol - Pulmonary out patient follow up for PFTs and optimization of respiratory status - continue other care per attending / other consultants - prn analgesia per pain score ... re-evaluate in am & prn Subjective Date of service: 09/09/20 Principal diagnosis: Ac hypoxemic resp failure; AE-COPD; ANGELIC; HIV +ve; HTN; Cocaine Use Interval history: Patient is seen today for: Acute hypoxemic respiratory failure; AE-COPD; ANGELIC; HIV infection; HTN; Cocaine use; Tobacco use disorder Seen and examined at bedside; 24hour events reviewed; nursing and respiratory care staff consulted; no adverse overnight events reported to me; resting in bed; remains on supplemental oxygen; clinically stable and awaiting discharge; afebrile Objective Vital Signs - 12hr 09/08/20 09/08/20 09/08/20 22:48 23:46 23:49 Temperature 97.3 F L Pulse Rate 82 87 Pulse Rate [ 93 H Bilateral] Respiratory 19 18 Rate Respiratory 16 Rate [Bilateral ] Blood Pressure 127/63 O2 Sat by Pulse 97 100 Oximetry 09/09/20 09/09/20 04:56 08:02 Temperature 99.1 F 97.8 F Pulse Rate 83 83 Pulse Rate [ Bilateral] Respiratory 17 20 Rate Respiratory Rate [Bilateral ] Blood Pressure 113/54 116/73 O2 Sat by Pulse 96 99 Oximetry Constitutional: no acute distress, other (mildly increased work of breathing at rest) Eyes: non-icteric ENT: oropharynx moist Neck: supple, no JVD Effort: mildly labored Ascultation: Bilateral: diminished breath sounds, wheezes (faint; end expiratory), rhonchi, other (Prolonged expiratory phase.) Percussion: Bilateral: not dull Cardiovascular: regular rate and rhythm Gastrointestinal: normoactive bowel sounds, soft, non-tender, non-distended Integumentary: normal Extremities: no cyanosis, no edema, pulses normal, no ischemia or petechiae Neurologic: normal mental status, non-focal exam, pupils equal and round, motor strength normal and Psychiatric: mood appropriate, affect normal CBC and BMP: 09/05/20 04:56 09/08/20 05:09 ABG, PT/INR, D-dimer: ABG ABG pH 7.316 (7.320-7.450) L 08/28/20 11:00 POC ABG pCO2 68.0 mmHg (32.0-48.0) H 08/28/20 11:00 POC ABG pO2 75.4 mmHg (83-108) L 08/28/20 11:00 POC ABG HCO3 33.9 08/28/20 11:00 ABG O2 Saturation 93.6 (0-100) 08/28/20 11:00 Abnormal lab findings: Abnormal Labs 08/24/20 08/24/20 08/25/20 19:29 19:29 07:00 WBC RBC 3.36 L Hgb 9.7 L Hct 28.5 L MCH MCHC RDW 20.6 H Seg Neuts % (Manual) 97.0 H Lymphocytes % (Manual) 1.0 L Seg Neutrophils # Man 10.2 H Abs Lymphs (Manual) Lymphocytes # (Manual) 0.1 L ABG pH POC ABG pCO2 POC ABG pO2 ABG Hemoglobin ABG Oxyhemoglobin ABG Glucose Sodium Potassium 3.3 L Carbon Dioxide BUN Glucose 121 H POC Glucose 211 H Calcium 7.6 L TIBC Alkaline Phosphatase 154 H Albumin 3.4 L Arterial Blood Glucose Arterial Blood Ionized Calcium Lymph Enumerat CD4/CD8 % CD3 Cells Absolute CD3 Count % CD4 Cells Absolute CD4 Count Absolute CD8 Count Absolute CD19 Count Crossmatch 08/25/20 08/25/20 08/25/20 07:21 07:21 12:06 WBC RBC 3.13 L Hgb 8.9 L Hct 26.5 L MCH MCHC RDW 20.6 H Seg Neuts % (Manual) 96.0 H Lymphocytes % (Manual) 3.0 L Seg Neutrophils # Man Abs Lymphs (Manual) Lymphocytes # (Manual) 0.2 L ABG pH POC ABG pCO2 POC ABG pO2 ABG Hemoglobin ABG Oxyhemoglobin ABG Glucose Sodium Potassium Carbon Dioxide 31 H BUN Glucose 208 H POC Glucose 162 H Calcium 7.4 L TIBC Alkaline Phosphatase Albumin Arterial Blood Glucose Arterial Blood Ionized Calcium Lymph Enumerat CD4/CD8 % CD3 Cells Absolute CD3 Count % CD4 Cells Absolute CD4 Count Absolute CD8 Count Absolute CD19 Count Crossmatch 08/25/20 08/25/20 08/26/20 17:01 21:52 05:09 WBC 14.9 H RBC 3.11 L Hgb 8.9 L Hct 26.7 L MCH MCHC RDW 20.6 H Seg Neuts % (Manual) Lymphocytes % (Manual) Seg Neutrophils # Man Abs Lymphs (Manual) Lymphocytes # (Manual) ABG pH POC ABG pCO2 POC ABG pO2 ABG Hemoglobin ABG Oxyhemoglobin ABG Glucose Sodium Potassium Carbon Dioxide BUN Glucose POC Glucose 158 H 175 H Calcium TIBC Alkaline Phosphatase Albumin Arterial Blood Glucose Arterial Blood Ionized Calcium Lymph Enumerat CD4/CD8 % CD3 Cells Absolute CD3 Count % CD4 Cells Absolute CD4 Count Absolute CD8 Count Absolute CD19 Count Crossmatch 08/26/20 08/26/20 08/26/20 05:09 07:21 11:21 WBC RBC Hgb Hct MCH MCHC RDW Seg Neuts % (Manual) Lymphocytes % (Manual) Seg Neutrophils # Man Abs Lymphs (Manual) Lymphocytes # (Manual) ABG pH POC ABG pCO2 POC ABG pO2 ABG Hemoglobin ABG Oxyhemoglobin ABG Glucose Sodium Potassium Carbon Dioxide 31 H BUN 21 H Glucose 183 H POC Glucose 149 H 145 H Calcium 7.0 L TIBC Alkaline Phosphatase Albumin Arterial Blood Glucose Arterial Blood Ionized Calcium Lymph Enumerat CD4/CD8 % CD3 Cells Absolute CD3 Count % CD4 Cells Absolute CD4 Count Absolute CD8 Count Absolute CD19 Count Crossmatch 08/26/20 08/26/20 08/27/20 16:49 21:19 04:41 WBC 11.5 H RBC 2.93 L Hgb 8.0 L Hct 25.2 L MCH 27 L MCHC RDW 21.0 H Seg Neuts % (Manual) Lymphocytes % (Manual) Seg Neutrophils # Man Abs Lymphs (Manual) Lymphocytes # (Manual) ABG pH POC ABG pCO2 POC ABG pO2 ABG Hemoglobin ABG Oxyhemoglobin ABG Glucose Sodium Potassium Carbon Dioxide BUN Glucose POC Glucose 177 H 144 H Calcium TIBC Alkaline Phosphatase Albumin Arterial Blood Glucose Arterial Blood Ionized Calcium Lymph Enumerat CD4/CD8 % CD3 Cells Absolute CD3 Count % CD4 Cells Absolute CD4 Count Absolute CD8 Count Absolute CD19 Count Crossmatch 08/27/20 08/27/20 08/27/20 04:41 07:25 07:30 WBC RBC Hgb Hct MCH MCHC RDW Seg Neuts % (Manual) Lymphocytes % (Manual) Seg Neutrophils # Man Abs Lymphs (Manual) Lymphocytes # (Manual) ABG pH POC ABG pCO2 POC ABG pO2 ABG Hemoglobin ABG Oxyhemoglobin ABG Glucose Sodium Potassium Carbon Dioxide 35 H BUN 24 H Glucose 173 H POC Glucose 153 H 143 H Calcium 7.3 L TIBC Alkaline Phosphatase Albumin Arterial Blood Glucose Arterial Blood Ionized Calcium Lymph Enumerat CD4/CD8 % CD3 Cells Absolute CD3 Count % CD4 Cells Absolute CD4 Count Absolute CD8 Count Absolute CD19 Count Crossmatch 08/27/20 08/27/20 08/27/20 11:27 15:49 21:17 WBC RBC Hgb Hct MCH MCHC RDW Seg Neuts % (Manual) Lymphocytes % (Manual) Seg Neutrophils # Man Abs Lymphs (Manual) Lymphocytes # (Manual) ABG pH POC ABG pCO2 POC ABG pO2 ABG Hemoglobin ABG Oxyhemoglobin ABG Glucose Sodium Potassium Carbon Dioxide BUN Glucose POC Glucose 236 H 184 H 144 H Calcium TIBC Alkaline Phosphatase Albumin Arterial Blood Glucose Arterial Blood Ionized Calcium Lymph Enumerat CD4/CD8 % CD3 Cells Absolute CD3 Count % CD4 Cells Absolute CD4 Count Absolute CD8 Count Absolute CD19 Count Crossmatch 08/28/20 08/28/20 08/28/20 05:55 05:55 07:25 WBC RBC 2.58 L Hgb 7.6 L Hct 22.1 L MCH MCHC 35 H RDW 20.3 H Seg Neuts % (Manual) Lymphocytes % (Manual) Seg Neutrophils # Man Abs Lymphs (Manual) Lymphocytes # (Manual) ABG pH POC ABG pCO2 POC ABG pO2 ABG Hemoglobin ABG Oxyhemoglobin ABG Glucose Sodium Potassium 3.5 L Carbon Dioxide BUN 33 H Glucose 183 H POC Glucose 164 H Calcium 6.8 L TIBC Alkaline Phosphatase Albumin Arterial Blood Glucose Arterial Blood Ionized Calcium Lymph Enumerat CD4/CD8 % CD3 Cells Absolute CD3 Count % CD4 Cells Absolute CD4 Count Absolute CD8 Count Absolute CD19 Count Crossmatch 08/28/20 08/28/20 08/28/20 11:00 12:06 15:28 WBC RBC Hgb Hct MCH MCHC RDW Seg Neuts % (Manual) Lymphocytes % (Manual) Seg Neutrophils # Man Abs Lymphs (Manual) Lymphocytes # (Manual) ABG pH 7.316 L POC ABG pCO2 68.0 H POC ABG pO2 75.4 L ABG Hemoglobin 8.3 L ABG Oxyhemoglobin 92.5 L ABG Glucose 302 H Sodium Potassium Carbon Dioxide BUN Glucose POC Glucose 233 H 146 H Calcium TIBC Alkaline Phosphatase Albumin Arterial Blood Glucose 302 H Arterial Blood Ionized Calcium 3.8 L Lymph Enumerat CD4/CD8 % CD3 Cells Absolute CD3 Count % CD4 Cells Absolute CD4 Count Absolute CD8 Count Absolute CD19 Count Crossmatch 08/28/20 08/29/20 08/29/20 21:34 07:26 12:05 WBC RBC Hgb Hct MCH MCHC RDW Seg Neuts % (Manual) Lymphocytes % (Manual) Seg Neutrophils # Man Abs Lymphs (Manual) Lymphocytes # (Manual) ABG pH POC ABG pCO2 POC ABG pO2 ABG Hemoglobin ABG Oxyhemoglobin ABG Glucose Sodium Potassium Carbon Dioxide BUN Glucose POC Glucose 201 H 167 H 253 H Calcium TIBC Alkaline Phosphatase Albumin Arterial Blood Glucose Arterial Blood Ionized Calcium Lymph Enumerat CD4/CD8 % CD3 Cells Absolute CD3 Count % CD4 Cells Absolute CD4 Count Absolute CD8 Count Absolute CD19 Count Crossmatch 08/29/20 08/29/20 08/30/20 16:32 21:56 07:53 WBC RBC Hgb Hct MCH MCHC RDW Seg Neuts % (Manual) Lymphocytes % (Manual) Seg Neutrophils # Man Abs Lymphs (Manual) Lymphocytes # (Manual) ABG pH POC ABG pCO2 POC ABG pO2 ABG Hemoglobin ABG Oxyhemoglobin ABG Glucose Sodium Potassium Carbon Dioxide BUN Glucose POC Glucose 128 H 220 H 286 H Calcium TIBC Alkaline Phosphatase Albumin Arterial Blood Glucose Arterial Blood Ionized Calcium Lymph Enumerat CD4/CD8 % CD3 Cells Absolute CD3 Count % CD4 Cells Absolute CD4 Count Absolute CD8 Count Absolute CD19 Count Crossmatch 08/30/20 08/30/20 08/30/20 11:29 17:32 22:03 WBC RBC Hgb Hct MCH MCHC RDW Seg Neuts % (Manual) Lymphocytes % (Manual) Seg Neutrophils # Man Abs Lymphs (Manual) Lymphocytes # (Manual) ABG pH POC ABG pCO2 POC ABG pO2 ABG Hemoglobin ABG Oxyhemoglobin ABG Glucose Sodium Potassium Carbon Dioxide BUN Glucose POC Glucose 299 H 260 H 196 H Calcium TIBC Alkaline Phosphatase Albumin Arterial Blood Glucose Arterial Blood Ionized Calcium Lymph Enumerat CD4/CD8 % CD3 Cells Absolute CD3 Count % CD4 Cells Absolute CD4 Count Absolute CD8 Count Absolute CD19 Count Crossmatch 08/31/20 08/31/20 08/31/20 07:41 11:26 16:19 WBC RBC Hgb Hct MCH MCHC RDW Seg Neuts % (Manual) Lymphocytes % (Manual) Seg Neutrophils # Man Abs Lymphs (Manual) Lymphocytes # (Manual) ABG pH POC ABG pCO2 POC ABG pO2 ABG Hemoglobin ABG Oxyhemoglobin ABG Glucose Sodium Potassium Carbon Dioxide BUN Glucose POC Glucose 166 H 269 H 265 H Calcium TIBC Alkaline Phosphatase Albumin Arterial Blood Glucose Arterial Blood Ionized Calcium Lymph Enumerat CD4/CD8 % CD3 Cells Absolute CD3 Count % CD4 Cells Absolute CD4 Count Absolute CD8 Count Absolute CD19 Count Crossmatch 08/31/20 09/01/20 09/01/20 20:44 07:40 11:39 WBC RBC Hgb Hct MCH MCHC RDW Seg Neuts % (Manual) Lymphocytes % (Manual) Seg Neutrophils # Man Abs Lymphs (Manual) Lymphocytes # (Manual) ABG pH POC ABG pCO2 POC ABG pO2 ABG Hemoglobin ABG Oxyhemoglobin ABG Glucose Sodium Potassium Carbon Dioxide BUN Glucose POC Glucose 243 H 272 H 320 H Calcium TIBC Alkaline Phosphatase Albumin Arterial Blood Glucose Arterial Blood Ionized Calcium Lymph Enumerat CD4/CD8 % CD3 Cells Absolute CD3 Count % CD4 Cells Absolute CD4 Count Absolute CD8 Count Absolute CD19 Count Crossmatch 09/01/20 09/01/20 09/02/20 16:16 21:59 08:32 WBC RBC Hgb Hct MCH MCHC RDW Seg Neuts % (Manual) Lymphocytes % (Manual) Seg Neutrophils # Man Abs Lymphs (Manual) Lymphocytes # (Manual) ABG pH POC ABG pCO2 POC ABG pO2 ABG Hemoglobin ABG Oxyhemoglobin ABG Glucose Sodium Potassium Carbon Dioxide BUN Glucose POC Glucose 319 H 157 H 195 H Calcium TIBC Alkaline Phosphatase Albumin Arterial Blood Glucose Arterial Blood Ionized Calcium Lymph Enumerat CD4/CD8 % CD3 Cells Absolute CD3 Count % CD4 Cells Absolute CD4 Count Absolute CD8 Count Absolute CD19 Count Crossmatch 09/02/20 09/02/20 09/03/20 11:44 20:09 05:02 WBC RBC 2.25 L Hgb 6.5 L Hct 19.7 L* MCH MCHC RDW 21.3 H Seg Neuts % (Manual) Lymphocytes % (Manual) Seg Neutrophils # Man Abs Lymphs (Manual) Lymphocytes # (Manual) ABG pH POC ABG pCO2 POC ABG pO2 ABG Hemoglobin ABG Oxyhemoglobin ABG Glucose Sodium Potassium Carbon Dioxide BUN Glucose POC Glucose 167 H 214 H Calcium TIBC Alkaline Phosphatase Albumin Arterial Blood Glucose Arterial Blood Ionized Calcium Lymph Enumerat CD4/CD8 % CD3 Cells Absolute CD3 Count % CD4 Cells Absolute CD4 Count Absolute CD8 Count Absolute CD19 Count Crossmatch 09/03/20 09/03/20 09/03/20 05:02 07:35 09:56 WBC RBC Hgb Hct MCH MCHC RDW Seg Neuts % (Manual) Lymphocytes % (Manual) Seg Neutrophils # Man Abs Lymphs (Manual) Lymphocytes # (Manual) ABG pH POC ABG pCO2 POC ABG pO2 ABG Hemoglobin ABG Oxyhemoglobin ABG Glucose Sodium 149 H Potassium 3.3 L Carbon Dioxide 38 H BUN 30 H Glucose 212 H POC Glucose 207 H Calcium 6.7 L TIBC Alkaline Phosphatase Albumin Arterial Blood Glucose Arterial Blood Ionized Calcium Lymph Enumerat CD4/CD8 % CD3 Cells Absolute CD3 Count % CD4 Cells Absolute CD4 Count Absolute CD8 Count Absolute CD19 Count Crossmatch See Detail 09/03/20 09/03/20 09/04/20 12:05 16:04 05:53 WBC 14.8 H RBC 2.99 L Hgb 8.6 L Hct 26.4 L D MCH MCHC RDW 19.0 H Seg Neuts % (Manual) Lymphocytes % (Manual) Seg Neutrophils # Man Abs Lymphs (Manual) Lymphocytes # (Manual) ABG pH POC ABG pCO2 POC ABG pO2 ABG Hemoglobin ABG Oxyhemoglobin ABG Glucose Sodium Potassium Carbon Dioxide BUN Glucose POC Glucose 193 H 174 H Calcium TIBC Alkaline Phosphatase Albumin Arterial Blood Glucose Arterial Blood Ionized Calcium Lymph Enumerat CD4/CD8 % CD3 Cells Absolute CD3 Count % CD4 Cells Absolute CD4 Count Absolute CD8 Count Absolute CD19 Count Crossmatch 09/04/20 09/04/20 09/04/20 05:53 05:53 08:33 WBC RBC Hgb Hct MCH MCHC RDW Seg Neuts % (Manual) Lymphocytes % (Manual) Seg Neutrophils # Man Abs Lymphs (Manual) 98 L Lymphocytes # (Manual) ABG pH POC ABG pCO2 POC ABG pO2 ABG Hemoglobin ABG Oxyhemoglobin ABG Glucose Sodium 149 H Potassium Carbon Dioxide 39 H BUN 28 H Glucose 175 H POC Glucose 222 H Calcium 6.9 L TIBC 214 L Alkaline Phosphatase Albumin Arterial Blood Glucose Arterial Blood Ionized Calcium Lymph Enumerat CD4/CD8 0.68 L % CD3 Cells 51 L Absolute CD3 Count 50 L % CD4 Cells 20 L Absolute CD4 Count 20 L Absolute CD8 Count 29 L Absolute CD19 Count 17 L Crossmatch 09/04/20 09/04/20 09/05/20 11:21 15:42 04:56 WBC RBC 2.88 L Hgb 8.6 L Hct 25.3 L MCH MCHC RDW 19.6 H Seg Neuts % (Manual) Lymphocytes % (Manual) Seg Neutrophils # Man Abs Lymphs (Manual) Lymphocytes # (Manual) ABG pH POC ABG pCO2 POC ABG pO2 ABG Hemoglobin ABG Oxyhemoglobin ABG Glucose Sodium Potassium Carbon Dioxide BUN Glucose POC Glucose 253 H 240 H Calcium TIBC Alkaline Phosphatase Albumin Arterial Blood Glucose Arterial Blood Ionized Calcium Lymph Enumerat CD4/CD8 % CD3 Cells Absolute CD3 Count % CD4 Cells Absolute CD4 Count Absolute CD8 Count Absolute CD19 Count Crossmatch 09/05/20 09/05/20 09/05/20 04:56 07:31 12:01 WBC RBC Hgb Hct MCH MCHC RDW Seg Neuts % (Manual) Lymphocytes % (Manual) Seg Neutrophils # Man Abs Lymphs (Manual) Lymphocytes # (Manual) ABG pH POC ABG pCO2 POC ABG pO2 ABG Hemoglobin ABG Oxyhemoglobin ABG Glucose Sodium 149 H Potassium 3.1 L Carbon Dioxide 48 H* D BUN 24 H Glucose 142 H POC Glucose 131 H 124 H Calcium 6.5 L TIBC Alkaline Phosphatase Albumin Arterial Blood Glucose Arterial Blood Ionized Calcium Lymph Enumerat CD4/CD8 % CD3 Cells Absolute CD3 Count % CD4 Cells Absolute CD4 Count Absolute CD8 Count Absolute CD19 Count Crossmatch 09/05/20 09/05/20 09/06/20 16:52 20:19 04:26 WBC RBC Hgb Hct MCH MCHC RDW Seg Neuts % (Manual) Lymphocytes % (Manual) Seg Neutrophils # Man Abs Lymphs (Manual) Lymphocytes # (Manual) ABG pH POC ABG pCO2 POC ABG pO2 ABG Hemoglobin ABG Oxyhemoglobin ABG Glucose Sodium 151 H Potassium 3.3 L Carbon Dioxide 44 H* BUN 24 H Glucose POC Glucose 168 H 130 H Calcium 5.8 L* TIBC Alkaline Phosphatase Albumin Arterial Blood Glucose Arterial Blood Ionized Calcium Lymph Enumerat CD4/CD8 % CD3 Cells Absolute CD3 Count % CD4 Cells Absolute CD4 Count Absolute CD8 Count Absolute CD19 Count Crossmatch 09/06/20 09/06/20 09/06/20 11:51 15:19 20:20 WBC RBC Hgb Hct MCH MCHC RDW Seg Neuts % (Manual) Lymphocytes % (Manual) Seg Neutrophils # Man Abs Lymphs (Manual) Lymphocytes # (Manual) ABG pH POC ABG pCO2 POC ABG pO2 ABG Hemoglobin ABG Oxyhemoglobin ABG Glucose Sodium Potassium Carbon Dioxide BUN Glucose POC Glucose 150 H 113 H 138 H Calcium TIBC Alkaline Phosphatase Albumin Arterial Blood Glucose Arterial Blood Ionized Calcium Lymph Enumerat CD4/CD8 % CD3 Cells Absolute CD3 Count % CD4 Cells Absolute CD4 Count Absolute CD8 Count Absolute CD19 Count Crossmatch 09/07/20 09/07/20 09/07/20 07:41 09:41 11:47 WBC RBC Hgb Hct MCH MCHC RDW Seg Neuts % (Manual) Lymphocytes % (Manual) Seg Neutrophils # Man Abs Lymphs (Manual) Lymphocytes # (Manual) ABG pH POC ABG pCO2 POC ABG pO2 ABG Hemoglobin ABG Oxyhemoglobin ABG Glucose Sodium 146 H Potassium Carbon Dioxide 43 H* BUN 24 H Glucose 186 H POC Glucose 118 H 198 H Calcium 6.1 L TIBC Alkaline Phosphatase Albumin Arterial Blood Glucose Arterial Blood Ionized Calcium Lymph Enumerat CD4/CD8 % CD3 Cells Absolute CD3 Count % CD4 Cells Absolute CD4 Count Absolute CD8 Count Absolute CD19 Count Crossmatch 09/07/20 09/08/20 09/08/20 21:58 05:09 07:55 WBC RBC Hgb Hct MCH MCHC RDW Seg Neuts % (Manual) Lymphocytes % (Manual) Seg Neutrophils # Man Abs Lymphs (Manual) Lymphocytes # (Manual) ABG pH POC ABG pCO2 POC ABG pO2 ABG Hemoglobin ABG Oxyhemoglobin ABG Glucose Sodium 146 H Potassium Carbon Dioxide 47 H* BUN Glucose 120 H POC Glucose 215 H 110 H Calcium 6.1 L TIBC Alkaline Phosphatase Albumin Arterial Blood Glucose Arterial Blood Ionized Calcium Lymph Enumerat CD4/CD8 % CD3 Cells Absolute CD3 Count % CD4 Cells Absolute CD4 Count Absolute CD8 Count Absolute CD19 Count Crossmatch 09/08/20 09/08/20 09/08/20 11:27 16:46 20:17 WBC RBC Hgb Hct MCH MCHC RDW Seg Neuts % (Manual) Lymphocytes % (Manual) Seg Neutrophils # Man Abs Lymphs (Manual) Lymphocytes # (Manual) ABG pH POC ABG pCO2 POC ABG pO2 ABG Hemoglobin ABG Oxyhemoglobin ABG Glucose Sodium Potassium Carbon Dioxide BUN Glucose POC Glucose 113 H 139 H 122 H Calcium TIBC Alkaline Phosphatase Albumin Arterial Blood Glucose Arterial Blood Ionized Calcium Lymph Enumerat CD4/CD8 % CD3 Cells Absolute CD3 Count % CD4 Cells Absolute CD4 Count Absolute CD8 Count Absolute CD19 Count Crossmatch 09/09/20 08:08 WBC RBC Hgb Hct MCH MCHC RDW Seg Neuts % (Manual) Lymphocytes % (Manual) Seg Neutrophils # Man Abs Lymphs (Manual) Lymphocytes # (Manual) ABG pH POC ABG pCO2 POC ABG pO2 ABG Hemoglobin ABG Oxyhemoglobin ABG Glucose Sodium Potassium Carbon Dioxide BUN Glucose POC Glucose 107 H Calcium TIBC Alkaline Phosphatase Albumin Arterial Blood Glucose Arterial Blood Ionized Calcium Lymph Enumerat CD4/CD8 % CD3 Cells Absolute CD3 Count % CD4 Cells Absolute CD4 Count Absolute CD8 Count Absolute CD19 Count Crossmatch Allied health notes reviewed: nursing
--- NOTE | 2020-09-09 12:13 | Progress Note ---
Assessment and Plan Assessment and plan: --Hypokalemia; Replenished with KCl oral Monitor electrolytes --Hypocalcemia; IV calcium gluconate, oral calcium carbonate Closely monitor levels --Paroxysmal atrial fibrillation; Patient is in sinus rhythm today with heart rate in 70s No A. fib last 24 hours Continue beta-blockers, not a candidate for anticoagulation Due to severe anemia requiring blood transfusion Cardiology following --Acute exacerbation of COPD ; Patient is a current smoker Continue aggressive neb treatments with budesonide , arformoterol and DuoNeb solutions Continue empiric antibiotic, oxygen titrate O2 sats to more than 90% BiPAP as needed, home O2 evaluation at discharge pulmonary following Solu-Medrol increased to 60 mg every 6 hours --Acute hypoxic respiratory failure ; requiring BiPAP Continue oxygen via nasal cannula Titrate O2 sats more than 90%, BiPAP as needed Home O2 evaluation prior to discharge --Leukocytosis-improved Suspect secondary to steroids As well as bronchitis/pneumonitis Continue bronchodilators, empiric antibiotics, tapering steroids --Hypertension; moderate control Continue current antihypertensives, as needed medications --Normocytic anemia Hemoglobin is down to 8.0 > 7.6 this morning Closely monitor H&H transfuse as needed --Hyperglycemia -likely secondary to steroids HD A1c 5.8, Accu-Chek sliding scale coverage Long-acting insulin if needed --Ongoing tobacco abuse Patient counseled on tobacco cessation Nicotine patch as needed --history of HIV infection for many years Patient follow-up private ID/health department upon discharge --Mild to moderate malnutrition/hypoalbuminemia Nutrition supplements and supportive care --DVT prophylaxis; Heparin subcu/SCDs Physical therapy/Occupational Therapy evaluation and treatment DC planning per case management OT recommended subacute rehab /SNF placement. DC planning per case management We will closely monitor the patient and adjust the management as needed Possible discharge in 1 to 2 days if stable and cleared by pulmonary Plan of care reviewed with the patient and his nurse I also discussed with therapist speech Dr. Rahman and the case management Brief history and hospital course Daily Hospital course; 08/29; patient requiring BiPAP, severely short of breath, pulmonary following; Wean as tolerated ; requiring intermittent BiPAP especially at night This morning patient is on 4 L of nasal cannula oxygen Patient already has home oxygen at 3 L Pulmonary following 08/31/2020; patient continues to be in shortness of breath Unable to keep his oxygen, confused at times BiPAP as needed, pulmonary following Recommend placement SNF, Check for [facility] PCR PT OT evaluation 09/01/2020; on 4 L of nasal oxygen Awaiting placement Resumed service; 09/05/2020; I checked with monitor room, patient is in sinus heart rate in 70s No A. fib last 24 hours Awaiting subacute rehab placement 09/06/2020; hypokalemia, hypocalcemia Replenished with KCl, calcium gluconate and calcium carbonate Follow electrolytes 09/07/2020; follow today's labs Awaiting placement 09/08/2020; patient is clinically stable for discharge Awaiting subacute rehab placement 09/09/2020; awaiting placement History Interval history: I have seen and examined the patient at the bedside Patient's chart and medications reviewed no new events reported by the nursing staff Patient is alert and awake responding to simple questions Emaciated cachectic Vital signs noted Awaiting placement Hospitalist Physical - Constitutional Vitals: Temp Pulse Resp BP Pulse Ox 97.8 F 83 20 116/73 99 09/09/20 08:02 09/09/20 08:02 09/09/20 08:02 09/09/20 08:02 09/09/20 08:02 General appearance: Present: no acute distress, well-nourished - EENT Eyes: Present: PERRL, EOM intact - Neck Neck: Present: supple, normal ROM - Respiratory Respiratory effort: normal Respiratory: bilateral: diminished, negative: rales, rhonchi, wheezing - Cardiovascular Rhythm: regular Heart Sounds: Present: S1 & S2 - Extremities Extremities: no ischemia, No edema - Abdominal General gastrointestinal: soft, non-tender, non-distended, normal bowel sounds - Integumentary Integumentary: Present: clear, warm - Psychiatric Psychiatric: appropriate mood/affect, cooperative - Neurologic Neurologic: moves all extremities HEART Score - HEART Score Troponin: Troponin T < 0.010 ng/mL (0.00-0.029) 09/04/20 05:53 Results - Labs CBC & Chem 7: 09/05/20 04:56 09/08/20 05:09 Labs: Laboratory Last Values WBC 7.7 K/mm3 (4.5-11.0) 09/05/20 04:56 RBC 2.88 M/mm3 (3.65-5.03) L 09/05/20 04:56 Hgb 8.6 gm/dl (11.8-15.2) L 09/05/20 04:56 Hct 25.3 % (35.5-45.6) L 09/05/20 04:56 MCV 88 fl (84-94) 09/05/20 04:56 MCH 30 pg (28-32) 09/05/20 04:56 MCHC 34 % (32-34) 09/05/20 04:56 RDW 19.6 % (13.2-15.2) H 09/05/20 04:56 Plt Count 143 K/mm3 (140-440) 09/05/20 04:56 Add Manual Diff Complete 08/25/20 07:21 Total Counted 100 08/25/20 07:21 Seg Neutrophils % [facility] [employer] Consultant 08/25/20 07:21 Seg Neuts % (Manual) 96.0 % (40.0-70.0) H 08/25/20 07:21 Lymphocytes % (Manual) 3.0 % (13.4-35.0) L 08/25/20 07:21 Monocytes % (Manual) 2.0 % (0.0-7.3) 08/24/20 19:29 Myelocytes % 1.0 % 08/25/20 07:21 Nucleated RBC % Not Reportable 08/25/20 07:21 Seg Neutrophils # Man 4.8 K/mm3 (1.8-7.7) 08/25/20 07:21 Band Neutrophils # 0.0 K/mm3 08/25/20 07:21 Abs Lymphs (Manual) 98 cells/uL (850-3900) L 09/04/20 05:53 Lymphocytes # (Manual) 0.2 K/mm3 (1.2-5.4) L 08/25/20 07:21 Abs React Lymphs (Man) 0.0 K/mm3 08/25/20 07:21 Monocytes # (Manual) 0.0 K/mm3 (0.0-0.8) 08/25/20 07:21 Eosinophils # (Manual) 0.0 K/mm3 (0.0-0.4) 08/25/20 07:21 Basophils # (Manual) 0.0 K/mm3 (0.0-0.1) 08/25/20 07:21 Metamyelocytes # 0.0 K/mm3 08/25/20 07:21 Myelocytes # 0.1 K/mm3 08/25/20 07:21 Promyelocytes # 0.0 K/mm3 08/25/20 07:21 Blast Cells # 0.0 K/mm3 08/25/20 07:21 WBC Morphology Not Reportable 08/25/20 07:21 Hypersegmented Neuts Not Reportable 08/25/20 07:21 Hyposegmented Neuts Not Reportable 08/25/20 07:21 Hypogranular Neuts Not Reportable 08/25/20 07:21 Smudge Cells Not Reportable 08/25/20 07:21 Toxic Granulation Not Reportable 08/25/20 07:21 Toxic Vacuolation Not Reportable 08/25/20 07:21 Dohle Bodies Not Reportable 08/25/20 07:21 Pelger-Huet Anomaly Not Reportable 08/25/20 07:21 Ruma Rods Not Reportable 08/25/20 07:21 Platelet Estimate Consistent w auto 08/25/20 07:21 Clumped Platelets Not Reportable 08/25/20 07:21 Plt Clumps, EDTA Not Reportable 08/25/20 07:21 Large Platelets Not Reportable 08/25/20 07:21 Giant Platelets Not Reportable 08/25/20 07:21 Platelet Satelliting Not Reportable 08/25/20 07:21 Plt Morphology Comment Not Reportable 08/25/20 07:21 RBC Morphology Not Reportable 08/25/20 07:21 Dimorphic RBCs Not Reportable 08/25/20 07:21 Polychromasia Not Reportable 08/25/20 07:21 Hypochromasia 1+ 08/25/20 07:21 Poikilocytosis 1+ 08/25/20 07:21 Anisocytosis 1+ 08/25/20 07:21 Microcytosis Not Reportable 08/25/20 07:21 Macrocytosis Not Reportable 08/25/20 07:21 Spherocytes Not Reportable 08/25/20 07:21 Pappenheimer Bodies Not Reportable 08/25/20 07:21 Sickle Cells Not Reportable 08/25/20 07:21 Target Cells Not Reportable 08/25/20 07:21 Tear Drop Cells Not Reportable 08/25/20 07:21 Ovalocytes 1+ 08/25/20 07:21 Helmet Cells Not Reportable 08/25/20 07:21 [place] Bodies Not Reportable 08/25/20 07:21 [place] Rings Not Reportable 08/25/20 07:21 Don Cells Not Reportable 08/25/20 07:21 Bite Cells Not Reportable 08/25/20 07:21 Crenated Cell Not Reportable 08/25/20 07:21 Elliptocytes 2+ 08/25/20 07:21 Acanthocytes (Spur) 1+ 08/25/20 07:21 Rouleaux Not Reportable 08/25/20 07:21 Hemoglobin C Crystals Not Reportable 08/25/20 07:21 Schistocytes Not Reportable 08/25/20 07:21 Malaria parasites Not Reportable 08/25/20 07:21 Ric Bodies Not Reportable 08/25/20 07:21 Hem Pathologist Commnt No 08/25/20 07:21 ABG pH 7.316 (7.320-7.450) L 08/28/20 11:00 POC ABG pCO2 68.0 mmHg (32.0-48.0) H 08/28/20 11:00 POC ABG pO2 75.4 mmHg (83-108) L 08/28/20 11:00 POC ABG HCO3 33.9 08/28/20 11:00 ABG O2 Saturation 93.6 (0-100) 08/28/20 11:00 POC ABG Base Excess 6.6 08/28/20 11:00 ABG Hemoglobin 8.3 (12.0-17.5) L 08/28/20 11:00 ABG Oxyhemoglobin 92.5 (94-98) L 08/28/20 11:00 ABG Methemoglobin 0.3 (0.0-1.5) 08/28/20 11:00 ABG Sodium 143.2 mmol/L (136.0-145.0) 08/28/20 11:00 ABG Potassium 3.8 mmol/L (3.40-4.50) 08/28/20 11:00 ABG Chloride 103.0 mmol/L (98-107) 08/28/20 11:00 ABG Glucose 302 mg/dL (65-95) H 08/28/20 11:00 Carboxyhemoglobin 0.9 (0.5-1.5) 08/28/20 11:00 FiO2 % 40.0 08/28/20 11:00 Sodium 146 mmol/L (137-145) H 09/08/20 05:09 Potassium 3.7 mmol/L (3.6-5.0) 09/08/20 05:09 Chloride 98.1 mmol/L (98-107) 09/08/20 05:09 Carbon Dioxide 47 mmol/L (22-30) H* 09/08/20 05:09 Anion Gap 5 mmol/L 09/08/20 05:09 BUN 18 mg/dL (9-20) 09/08/20 05:09 Creatinine 0.9 mg/dL (0.8-1.3) 09/08/20 05:09 Estimated GFR > 60 ml/min 09/08/20 05:09 BUN/Creatinine Ratio 20 % 09/08/20 05:09 Glucose 120 mg/dL (75-100) H 09/08/20 05:09 POC Glucose 113 mg/dL (70-105) H 09/09/20 11:28 Hemoglobin A1c 5.8 % (4-6) 08/25/20 07:27 Calcium 6.1 mg/dL (8.4-10.2) L 09/08/20 05:09 Magnesium 1.80 mg/dL (1.7-2.3) 09/08/20 05:09 Iron 58 ug/dL (49-181) 09/04/20 05:53 TIBC 214 mcg/dL (250-450) L 09/04/20 05:53 Total Bilirubin 0.40 mg/dL (0.1-1.2) 08/24/20 19:29 AST 21 units/L (5-40) 08/24/20 19:29 ALT 36 units/L (7-56) 08/24/20 19:29 Alkaline Phosphatase 154 units/L (35-129) H 08/24/20 19:29 Troponin T < 0.010 ng/mL (0.00-0.029) 09/04/20 05:53 Total Protein 6.5 g/dL (6.3-8.2) 08/24/20 19:29 Albumin 3.4 g/dL (3.9-5) L 08/24/20 19:29 Albumin/Globulin Ratio 1.1 % 08/24/20 19:29 Arterial Blood Glucose 302 mg/dL (65-95) H 08/28/20 11:00 Arterial Blood Ionized Calcium 3.8 mg/dL (4.6-5.3) L 08/28/20 11:00 Lymph Enumerat CD4/CD8 0.68 (0.86-5.00) L 09/04/20 05:53 % CD3 Cells 51 % (57-85) L 09/04/20 05:53 Absolute CD3 Count 50 cells/uL (840-3060) L 09/04/20 05:53 % CD4 Cells 20 % (30-61) L 09/04/20 05:53 Absolute CD4 Count 20 cells/uL (490-1740) L 09/04/20 05:53 % CD8 Cells 30 % (12-42) 09/04/20 05:53 Absolute CD8 Count 29 cells/uL (180-1170) L 09/04/20 05:53 % CD19 Cells 17 % (6-29) 09/04/20 05:53 Absolute CD19 Count 17 cells/uL (110-660) L 09/04/20 05:53 Coronavirus (PCR) Negative (Negative) 09/01/20 Unknown Blood Type A POSITIVE 09/03/20 09:56 Antibody Screen Negative 09/03/20 09:56 Crossmatch See Detail 09/03/20 09:56 [place]/IV: Voiding Method Urinal Active Medications - Current Medications Current Medications: Generic Name Dose Route Start Last Admin Trade Name Freq PRN Reason Stop Dose Admin Acetaminophen 650 mg 08/24/20 22:12 Acetaminophen 325 Mg Tab PO Q4H PRN Pain MILD(1-3)/Fever >100.5/KOENIG Alprazolam 0.25 mg 08/30/20 11:30 09/09/20 01:46 Alprazolam 0.25 Mg Tab PO 0.25 mg Q8H PRN Administration Anxiety Arformoterol Tartrate 15 mcg 08/25/20 20:00 09/09/20 07:49 Arformoterol 15 Mcg/2 Ml Nebu IH 15 mcg Q12HRT NADIA Administration Aspirin 81 mg 08/25/20 10:00 09/09/20 09:54 Aspirin Ec 81 Mg Tab PO 81 mg QDAY NADIA Administration Atorvastatin Calcium 40 mg 08/25/20 22:00 09/08/20 22:19 Atorvastatin 40 Mg Tab PO 40 mg QHS NADIA Administration Budesonide 0.5 mg 08/25/20 08:00 09/09/20 07:49 Budesonide 0.5 Mg/2 Ml Nebu IH 0.5 mg Q12HRT NADIA Administration Calcium Carbonate/Glycine 500 mg 09/06/20 09:00 09/09/20 09:54 Calcium Carbonate 500 Mg Tab Chew PO 500 mg TID NADIA Administration Carvedilol 6.25 mg 09/02/20 12:00 09/09/20 09:54 Carvedilol 6.25 Mg Tab PO 6.25 mg BID NADIA Administration Guaifenesin 400 mg 08/29/20 13:00 08/30/20 05:33 Guaifenesin 200 Mg Tab PO 400 mg Q4HR PRN Administration Cough Heparin Sodium (Porcine) 5,000 unit 08/25/20 06:00 09/09/20 06:04 Heparin 5,000 Unit/1 Ml Vial SUB-Q 5,000 unit Q8HR NADIA Administration Hydralazine HCl 10 mg 08/24/20 22:14 08/31/20 13:40 Hydralazine 20 Mg/1 Ml Inj IV 10 mg Q6H PRN Administration SBP>/=160; DBP >/=100 Insulin Human Isoph/Insulin Regular 10 unit 09/01/20 17:00 09/09/20 09:50 Insulin Nph/Regular 70/30 Inj SUB-Q Not Given BIDDIAB [facility]1983 Insulin Human Lispro 0 unit 08/25/20 22:00 09/08/20 22:20 Insulin Lispro 100 Unit/Ml SUB-Q Not Given QHS [facility], 1928–1983 Protocol Ipratropium [place] 0.5 mg 09/02/20 16:00 09/09/20 07:49 Ipratropium 0.02% Nebu 2.5 Ml IH 0.5 mg Q8HRT [facility]–1983 Administration Ketorolac Tromethamine 15 mg 09/07/20 15:22 09/07/20 17:32 Ketorolac 30 Mg/1 Ml Inj IV 09/12/20 15:21 15 mg Q8HR PRN Administration Pain, Mild (1-3) Levalbuterol HCl 0.63 mg 09/01/20 18:00 09/09/20 07:48 Levalbuterol 0.63 Mg/3 Ml Nebu IH 0.63 mg Q8HRT NADIA Administration Mirtazapine 7.5 mg 08/25/20 22:00 09/08/20 22:19 Mirtazapine 15 Mg Tab PO 7.5 mg QHS NADIA Administration Montelukast Sodium 10 mg 08/25/20 22:00 09/08/20 22:20 Montelukast 10 Mg Tab PO 10 mg QHS NADIA Administration Multivitamins 1 each 09/04/20 10:00 09/09/20 09:54 Multivitamins ,Therapeutic Tab PO 1 each QDAY NADIA Administration Multivitamins/Iron 1 each 09/04/20 10:00 09/09/20 09:54 Fe Fumarate/Fa/Mv, Min Comb#15 Cap (Hemocyte Plus) PO 1 each QDAY NADIA Administration Ondansetron HCl 4 mg 08/24/20 22:12 Ondansetron 4 Mg/2 Ml Inj IV Q8H PRN Nausea And Vomiting Oxycodone/Acetaminophen 1 tab 08/24/20 22:23 09/09/20 10:04 Oxycodone /Acetaminophen 5-325mg Tab PO 1 tab BID PRN Administration Pain , Severe (7-10) Pantoprazole Sodium 40 mg 08/25/20 10:00 09/09/20 09:54 Pantoprazole 40 Mg Tab PO 40 mg QDAY NADIA Administration Polyethylene Glycol 17 gm 08/28/20 10:00 09/09/20 09:55 Polyethylene Glycol 3350 17 Gm Powder PO Not Given QDAY NADIA Sodium Chloride 10 ml 08/25/20 10:00 09/09/20 09:54 Sodium Chloride 0.9% 10 Ml Flush Syringe IV 10 ml BID NADIA Administration Sodium Chloride 10 ml 08/24/20 22:12 Sodium Chloride 0.9% 10 Ml Flush Syringe IV PRN PRN LINE FLUSH Tramadol HCl 50 mg 08/24/20 22:23 09/09/20 01:47 Tramadol 50 Mg Tab PO 50 mg Q6HR PRN Administration Pain, Moderate (4-6) Nutrition/Malnutrition Assess - Dietary Evaluation Nutrition/Malnutrition Findings: Nutrition Notes Start: 08/25/20 08:25 Freq: Status: Active Protocol: Document 09/08/20 11:02 SERGIO (Rec: 09/08/20 11:06 SERGIO [id number]) Nutrition Notes Initial or Follow up Reassessment Current Diagnosis COPD,Hypertension,Respiratory Failure Other Pertinent Diagnosis HIV Current Diet Cardiac, consistent CHO Labs/Tests Na 146 BG 120 Pertinent Medications Remeron Height 5 ft 5 in Weight 50.4 kg [place] Body Weight (kg) 61.81 BMI 18.4 Weight change and time frame 21% wt loss in 2 weeks Weight Status Underweight Subjective/Other Information Pt drinking 2 Ensure Clears daily. Pt eating 10% of meals. Pt continues to lose weight. Encouraged pt to eat more of breakfast. Percent of energy/protein needs met: 34%/26% Burn Absent Trauma Absent Current % PO Negligible Minimum of two criteria Yes Energy Intake (non-severe) <75% Estimated Energy Requirement >7 days Interpretation of Weight Loss (severe) >5% in 1 month #2 Nutrition Diagnosis Malnutrition Diagnosis Progress(for reassessment Continues documentation) #1 Nutrition Diagnosis Inadequate oral intake Diagnosis Progress(for reassessment Continues documentation) Is patient on ventilator? No Is Patient Ambulatory and/or Out of Bed No REE-([place]-St Jeor-confined to bed) [phone] [facility]culation [facility] Additional Notes Protein: (1.2-1.5g/kg) 62-77g Fluid: 1 ml/kcal Nutrition Intervention Change Diet Order: Continue Add Supplement/Snack (indicate name/kcal Ensure Clear QID /protein ) Provides kCal: 960 Provides Protein (gm) 32 Goal #1 Meet at least 75% of protein and energy needs via PO and ONS intakes Goal #2 Weight gain/maintenance Anticipated Discharge Needs: Cardiac Follow-Up By: 09/11/20 Additional Comments FU for intakes and ONS tolerance
[2020-09-09] MEDS: MONTELUKAST 10 MG TAB PO SCH (21:30)
[2020-09-09] MEDS: MIRTAZAPINE 15 MG TAB PO SCH (21:30)
[2020-09-10] MEDS: INSULIN LISPRO 100 UNIT/ML SUB-Q SCH ×2 (00:23→22:41)
[2020-09-10] MEDS: LEVALBUTEROL 0.63 MG/3 ML NEBU IH SCH ×3 (02:45→15:02)
[2020-09-10] MEDS: IPRATROPIUM 0.02% NEBU 2.5 ML IH SCH ×3 (02:46→15:02)
[2020-09-10] MEDS: HEPARIN 5,000 UNIT/1 ML VIAL SUB-Q SCH ×3 (06:28→22:40)
[2020-09-10] MEDS: INSULIN NPH/REGULAR 70/30 INJ SUB-Q SCH ×2 (09:29→17:08)
[2020-09-10] MEDS: PANTOPRAZOLE 40 MG TAB PO SCH (09:31)
[2020-09-10] MEDS: MULTIVITAMINS ,THERAPEUTIC TAB PO SCH (09:31)
[2020-09-10] MEDS: POLYETHYLENE GLYCOL 3350 17 GM POWDER PO SCH (09:31)
[2020-09-10] MEDS: FE FUMARATE/FA/MV, MIN COMB#15 CAP (HEMOCYTE PLUS) PO SCH (09:31)
[2020-09-10] MEDS: carvediloL 6.25 MG TAB PO SCH ×2 (09:31→22:41)
[2020-09-10] MEDS: CALCIUM CARBONATE 500 MG TAB CHEW PO SCH ×3 (09:31→22:40)
[2020-09-10] MEDS: ASPIRIN EC 81 MG TAB PO SCH (09:31)
[2020-09-10] MEDS: BUDESONIDE 0.5 MG/2 ML NEBU IH SCH ×2 (09:46→20:09)
[2020-09-10] MEDS: ARFORMOTEROL 15 MCG/2 ML NEBU IH SCH ×2 (09:46→20:09)
--- NOTE | 2020-09-10 11:01 | Progress Note ---
Assessment and Plan Assessment and plan: --Paroxysmal atrial fibrillation; Patient is in sinus rhythm today with heart rate in 70s No A. fib last 24 hours Cardiology following Continue beta-blockers, not a candidate for anticoagulation Due to severe anemia requiring blood transfusion --Acute exacerbation of COPD ; Patient is a current smoker Continue nasal cannula oxygen titrate O2 sats to more than 90% --Acute hypoxic respiratory failure ; requiring BiPAP Continue oxygen via nasal cannula 4 L today Titrate O2 sats more than 90%, BiPAP as needed --Leukocytosis- resolved --Hypertension; moderate control Continue current antihypertensives, as needed medications --Normocytic anemia Hemoglobin is down to 8.0 > 7.6 this morning Closely monitor H&H transfuse as needed --Hyperglycemia -likely secondary to steroids HD A1c 5.8, Accu-Chek sliding scale coverage Long-acting insulin if needed --Ongoing tobacco abuse Patient counseled on tobacco cessation Nicotine patch as needed --history of HIV infection for many years Patient follow-up private ID/health department upon discharge --Mild to moderate malnutrition/hypoalbuminemia Nutrition supplements and supportive care --DVT prophylaxis; Heparin subcu/SCDs Physical therapy/Occupational Therapy evaluation and treatment DC planning per case management OT recommended subacute rehab /SNF placement. Awaiting placement, patient is medically stable for discharge Brief history: and Daily Hospital course; 08/29; patient requiring BiPAP, severely short of breath, pulmonary following; Wean as tolerated ; requiring intermittent BiPAP especially at night This morning patient is on 4 L of nasal cannula oxygen Patient already has home oxygen at 3 L Pulmonary following 08/31/2020; patient continues to be in shortness of breath Unable to keep his oxygen, confused at times BiPAP as needed, pulmonary following Recommend placement SNF, Check for [facility] PCR PT OT evaluation 09/01/2020; on 4 L of nasal oxygen Awaiting placement Resumed service; 09/05/2020; I checked with monitor room, patient is in sinus heart rate in 70s No A. fib last 24 hours Awaiting subacute rehab placement 09/06/2020; hypokalemia, hypocalcemia Replenished with KCl, calcium gluconate and calcium carbonate Follow electrolytes 09/07/2020; follow today's labs Awaiting placement 09/08/2020; patient is clinically stable for discharge Awaiting subacute rehab placement 09/09/2020; awaiting placement 09/10/2020; no new complaints, stable for discharge Awaiting placement History Interval history: I have seen and examined the patient at the bedside Patient's chart and medications reviewed No new events reported by the nursing Patient is comfortable vital stable Awaiting placement Hospitalist Physical - Constitutional Vitals: Temp Pulse Resp BP Pulse Ox 98.6 F 84 18 113/58 99 09/10/20 08:01 09/10/20 08:01 09/10/20 08:01 09/10/20 08:01 09/10/20 09:48 General appearance: Present: no acute distress, well-nourished - EENT Eyes: Present: PERRL, EOM intact - Neck Neck: Present: supple, normal ROM - Respiratory Respiratory effort: normal Respiratory: bilateral: diminished, negative: rales, rhonchi, wheezing - Cardiovascular Rhythm: regular Heart Sounds: Present: S1 & S2 - Extremities Extremities: no ischemia, No edema - Abdominal General gastrointestinal: soft, non-tender, non-distended, normal bowel sounds - Integumentary Integumentary: Present: clear, warm - Psychiatric Psychiatric: appropriate mood/affect, cooperative - Neurologic Neurologic: moves all extremities HEART Score - HEART Score Troponin: Troponin T < 0.010 ng/mL (0.00-0.029) 09/04/20 05:53 Results - Labs CBC & Chem 7: 09/05/20 04:56 09/08/20 05:09 Labs: Laboratory Last Values WBC 7.7 K/mm3 (4.5-11.0) 09/05/20 04:56 RBC 2.88 M/mm3 (3.65-5.03) L 09/05/20 04:56 Hgb 8.6 gm/dl (11.8-15.2) L 09/05/20 04:56 Hct 25.3 % (35.5-45.6) L 09/05/20 04:56 MCV 88 fl (84-94) 09/05/20 04:56 MCH 30 pg (28-32) 09/05/20 04:56 MCHC 34 % (32-34) 09/05/20 04:56 RDW 19.6 % (13.2-15.2) H 09/05/20 04:56 Plt Count 143 K/mm3 (140-440) 09/05/20 04:56 Add Manual Diff Complete 08/25/20 07:21 Total Counted 100 08/25/20 07: Seg Neutrophils % Environmental Engineering Professor 08/25/20 07: Seg Neuts % (Manual) 96.0 % (40.0-70.0) H 08/25/20 07:21 Lymphocytes % (Manual) 3.0 % (13.4-35.0) L 08/25/20 07:21 Monocytes % (Manual) 2.0 % (0.0-7.3) 08/24/20 19:29 Myelocytes % 1.0 % 08/25/20 07:21 Nucleated RBC % Not Reportable 08/25/20 07: Seg Neutrophils # Man 4.8 K/mm3 (1.8-7.7) 08/25/20 07:21 Band Neutrophils # 0.0 K/mm3 08/25/20 07:21 Abs Lymphs (Manual) 98 cells/uL (850-3900) L 09/04/20 05:53 Lymphocytes # (Manual) 0.2 K/mm3 (1.2-5.4) L 08/25/20 07:21 Abs React Lymphs (Man) 0.0 K/mm3 08/25/20 07:21 Monocytes # (Manual) 0.0 K/mm3 (0.0-0.8) 08/25/20 07:21 Eosinophils # (Manual) 0.0 K/mm3 (0.0-0.4) 08/25/20 07:21 Basophils # (Manual) 0.0 K/mm3 (0.0-0.1) 08/25/20 07:21 Metamyelocytes # 0.0 K/mm3 08/25/20 07:21 Myelocytes # 0.1 K/mm3 08/25/20 07:21 Promyelocytes # 0.0 K/mm3 08/25/20 07:21 Blast Cells # 0.0 K/mm3 08/25/20 07:21 WBC Morphology Not Reportable 08/25/20 07:21 Hypersegmented Neuts Not Reportable 08/25/20 07:21 Hyposegmented Neuts Not Reportable 08/25/20 07:21 Hypogranular Neuts Not Reportable 08/25/20 07:21 Smudge Cells Not Reportable 08/25/20 07:21 Toxic Granulation Not Reportable 08/25/20 07:21 Toxic Vacuolation Not Reportable 08/25/20 07:21 Dohle Bodies Not Reportable 08/25/20 07:21 Pelger-Huet Anomaly Not Reportable 08/25/20 07:21 Ruma Rods Not Reportable 08/25/20 07:21 Platelet Estimate Consistent w auto 08/25/20 07:21 Clumped Platelets Not Reportable 08/25/20 07:21 Plt Clumps, EDTA Not Reportable 08/25/20 07:21 Large Platelets Not Reportable 08/25/20 07:21 Giant Platelets Not Reportable 08/25/20 07:21 Platelet Satelliting Not Reportable 08/25/20 07:21 Plt Morphology Comment Not Reportable 08/25/20 07:21 RBC Morphology Not Reportable 08/25/20 07:21 Dimorphic RBCs Not Reportable 08/25/20 07:21 Polychromasia Not Reportable 08/25/20 07:21 Hypochromasia 1+ 08/25/20 07:21 Poikilocytosis 1+ 08/25/20 07:21 Anisocytosis 1+ 08/25/20 07:21 Microcytosis Not Reportable 08/25/20 07:21 Macrocytosis Not Reportable 08/25/20 07:21 Spherocytes Not Reportable 08/25/20 07:21 Pappenheimer Bodies Not Reportable 08/25/20 07:21 Sickle Cells Not Reportable 08/25/20 07:21 Target Cells Not Reportable 08/25/20 07:21 Tear Drop Cells Not Reportable 08/25/20 07:21 Ovalocytes 1+ 08/25/20 07:21 Helmet Cells Not Reportable 08/25/20 07:21 [place] Bodies Not Reportable 08/25/20 07:21 [place] Rings Not Reportable 08/25/20 07:21 [place] Cells Not Reportable 08/25/20 07:21 Bite Cells Not Reportable 08/25/20 07:21 Crenated Cell Not Reportable 08/25/20 07:21 Elliptocytes 2+ 08/25/20 07:21 Acanthocytes (Spur) 1+ 08/25/20 07:21 Rouleaux Not Reportable 08/25/20 07:21 Hemoglobin C Crystals Not Reportable 08/25/20 07:21 Schistocytes Not Reportable 08/25/20 07:21 Malaria parasites Not Reportable 08/25/20 07:21 Ric Bodies Not Reportable 08/25/20 07:21 Hem Pathologist Commnt No 08/25/20 07:21 ABG pH 7.316 (7.320-7.450) L 08/28/20 11:00 POC ABG pCO2 68.0 mmHg (32.0-48.0) H 08/28/20 11:00 POC ABG pO2 75.4 mmHg (83-108) L 08/28/20 11:00 POC ABG HCO3 33.9 08/28/20 11:00 ABG O2 Saturation 93.6 (0-100) 08/28/20 11:00 POC ABG Base Excess 6.6 08/28/20 11:00 ABG Hemoglobin 8.3 (12.0-17.5) L 08/28/20 11:00 ABG Oxyhemoglobin 92.5 (94-98) L 08/28/20 11:00 ABG Methemoglobin 0.3 (0.0-1.5) 08/28/20 11:00 ABG Sodium 143.2 mmol/L (136.0-145.0) 08/28/20 11:00 ABG Potassium 3.8 mmol/L (3.40-4.50) 08/28/20 11:00 ABG Chloride 103.0 mmol/L (98-107) 08/28/20 11:00 ABG Glucose 302 mg/dL (65-95) H 08/28/20 11:00 Carboxyhemoglobin 0.9 (0.5-1.5) 08/28/20 11:00 FiO2 % 40.0 08/28/20 11:00 Sodium 146 mmol/L (137-145) H 09/08/20 05:09 Potassium 3.7 mmol/L (3.6-5.0) 09/08/20 05:09 Chloride 98.1 mmol/L (98-107) 09/08/20 05:09 Carbon Dioxide 47 mmol/L (22-30) H* 09/08/20 05:09 Anion Gap 5 mmol/L 09/08/20 05:09 BUN 18 mg/dL (9-20) 09/08/20 05:09 Creatinine 0.9 mg/dL (0.8-1.3) 09/08/20 05:09 Estimated GFR > 60 ml/min 09/08/20 05:09 BUN/Creatinine Ratio 20 % 09/08/20 05:09 Glucose 120 mg/dL (75-100) H 09/08/20 05:09 POC Glucose 100 mg/dL (70-105) 09/10/20 07:28 Hemoglobin A1c 5.8 % (4-6) 08/25/20 07:27 Calcium 6.1 mg/dL (8.4-10.2) L 09/08/20 05:09 Magnesium 1.80 mg/dL (1.7-2.3) 09/08/20 05:09 Iron 58 ug/dL (49-181) 09/04/20 05:53 TIBC 214 mcg/dL (250-450) L 09/04/20 05:53 Total Bilirubin 0.40 mg/dL (0.1-1.2) 08/24/20 19:29 AST 21 units/L (5-40) 08/24/20 19:29 ALT 36 units/L (7-56) 08/24/20 19:29 Alkaline Phosphatase 154 units/L (35-129) H 08/24/20 19:29 Troponin T < 0.010 ng/mL (0.00-0.029) 09/04/20 05:53 Total Protein 6.5 g/dL (6.3-8.2) 08/24/20 19:29 Albumin 3.4 g/dL (3.9-5) L 08/24/20 19:29 Albumin/Globulin Ratio 1.1 % 08/24/20 19:29 Arterial Blood Glucose 302 mg/dL (65-95) H 08/28/20 11:00 Arterial Blood Ionized Calcium 3.8 mg/dL (4.6-5.3) L 08/28/20 11:00 Lymph Enumerat CD4/CD8 0.68 (0.86-5.00) L 09/04/20 05:53 % CD3 Cells 51 % (57-85) L 09/04/20 05:53 Absolute CD3 Count 50 cells/uL (840-3060) L 09/04/20 05:53 % CD4 Cells 20 % (30-61) L 09/04/20 05:53 Absolute CD4 Count 20 cells/uL (490-1740) L 09/04/20 05:53 % CD8 Cells 30 % (12-42) 09/04/20 05:53 Absolute CD8 Count 29 cells/uL (180-1170) L 09/04/20 05:53 % CD19 Cells 17 % (6-29) 09/04/20 05:53 Absolute CD19 Count 17 cells/uL (110-660) L 09/04/20 05:53 Coronavirus (PCR) Negative (Negative) 09/01/20 Unknown Blood Type A POSITIVE 09/03/20 09:56 Antibody Screen Negative 09/03/20 09:56 Crossmatch See Detail 09/03/20 09:56 [place]/IV: Voiding Method Urinal Active Medications - Current Medications Current Medications: Generic Name Dose Route Start Last Admin Trade Name Freq PRN Reason Stop Dose Admin Acetaminophen 650 mg 08/24/20 22:12 Acetaminophen 325 Mg Tab PO Q4H PRN Pain MILD(1-3)/Fever >100.5/KOENIG Alprazolam 0.25 mg 08/30/20 11:30 09/09/20 01:46 Alprazolam 0.25 Mg Tab PO 0.25 mg Q8H PRN Administration Anxiety Arformoterol Tartrate 15 mcg 08/25/20 20:00 09/10/20 09:46 Arformoterol 15 Mcg/2 Ml Nebu IH 15 mcg Q12HRT NADIA Administration Aspirin 81 mg 08/25/20 10:00 09/10/20 09:31 Aspirin Ec 81 Mg Tab PO 81 mg QDAY NADIA Administration Atorvastatin Calcium 40 mg 08/25/20 22:00 09/09/20 21:30 Atorvastatin 40 Mg Tab PO 40 mg QHS NDAIA Administration Budesonide 0.5 mg 08/25/20 08:00 09/10/20 09:46 Budesonide 0.5 Mg/2 Ml Nebu IH 0.5 mg Q12HRT NADIA Administration Calcium Carbonate/Glycine 500 mg 09/06/20 09:00 09/10/20 09:31 Calcium Carbonate 500 Mg Tab Chew PO 500 mg TID NADIA Administration Carvedilol 6.25 mg 09/02/20 12:00 09/10/20 09:31 Carvedilol 6.25 Mg Tab PO 6.25 mg BID NADIA Administration Guaifenesin 400 mg 08/29/20 13:00 08/30/20 05:33 Guaifenesin 200 Mg Tab PO 400 mg Q4HR PRN Administration Cough Heparin Sodium (Porcine) 5,000 unit 08/25/20 06:00 09/10/20 06:28 Heparin 5,000 Unit/1 Ml Vial SUB-Q 5,000 unit Q8HR NADIA Administration Hydralazine HCl 10 mg 08/24/20 22:14 08/31/20 13:40 Hydralazine 20 Mg/1 Ml Inj IV 10 mg Q6H PRN Administration SBP>/=160; DBP >/=100 Insulin Human Isoph/Insulin Regular 10 unit 09/01/20 17:00 09/10/20 09:29 Insulin Nph/Regular 70/30 Inj SUB-Q Not Given BIDDIAB [facility] Insulin Human Lispro 0 unit 08/25/20 22:00 09/10/20 00:23 Insulin Lispro 100 Unit/Ml SUB-Q Not Given QHS [facility] Protocol Ipratropium [place] 0.5 mg 09/02/20 16:00 09/10/20 09:46 Ipratropium 0.02% Nebu 2.5 Ml IH 0.5 mg Q8HRT [facility] Administration Ketorolac Tromethamine 15 mg 09/07/20 15:22 09/07/20 17:32 Ketorolac 30 Mg/1 Ml Inj IV 09/12/20 15:21 15 mg Q8HR PRN Administration Pain, Mild (1-3) Levalbuterol HCl 0.63 mg 09/01/20 18:00 09/10/20 09:47 Levalbuterol 0.63 Mg/3 Ml Nebu IH Not Given Q8HRT [facility] Mirtazapine 7.5 mg 08/25/20 22:00 09/09/20 21:30 Mirtazapine 15 Mg Tab PO 7.5 mg QHS [facility] Administration Montelukast Sodium 10 mg 08/25/20 22:00 09/09/20 21:30 Montelukast 10 Mg Tab PO 10 mg QHS [facility] Administration Multivitamins 1 each 09/04/20 10:00 09/10/20 09:31 Multivitamins ,Therapeutic Tab PO 1 each QDAY [facility] Administration Multivitamins/Iron 1 each 09/04/20 10:00 09/10/20 09:31 Fe Fumarate/Fa/Mv, Min Comb#15 Cap (Hemocyte Plus) PO 1 each QDAY NADIA Administration Ondansetron HCl 4 mg 08/24/20 22:12 Ondansetron 4 Mg/2 Ml Inj IV Q8H PRN Nausea And Vomiting Oxycodone/Acetaminophen 1 tab 08/24/20 22:23 09/09/20 21:41 Oxycodone /Acetaminophen 5-325mg Tab PO 1 tab BID PRN Administration Pain , Severe (7-10) Pantoprazole Sodium 40 mg 08/25/20 10:00 09/10/20 09:31 Pantoprazole 40 Mg Tab PO 40 mg QDAY NADIA Administration Polyethylene Glycol 17 gm 08/28/20 10:00 09/10/20 09:31 Polyethylene Glycol 3350 17 Gm Powder PO Not Given QDAY NADIA Sodium Chloride 10 ml 08/25/20 10:00 09/10/20 09:31 Sodium Chloride 0.9% 10 Ml Flush Syringe IV 10 ml BID NADIA Administration Sodium Chloride 10 ml 08/24/20 22:12 Sodium Chloride 0.9% 10 Ml Flush Syringe IV PRN PRN LINE FLUSH Tramadol HCl 50 mg 08/24/20 22:23 09/09/20 01:47 Tramadol 50 Mg Tab PO 50 mg Q6HR PRN Administration Pain, Moderate (4-6) Nutrition/Malnutrition Assess - Dietary Evaluation Nutrition/Malnutrition Findings: Nutrition Notes Start: 08/25/20 08:25 Freq: Status: Active Protocol: Document 09/08/20 11:02 (Rec: 09/08/20 11:06 [id number]) Nutrition Notes Initial or Follow up Reassessment Current Diagnosis COPD,Hypertension,Respiratory Failure Other Pertinent Diagnosis HIV Current Diet Cardiac, consistent CHO Labs/Tests Na 146 BG 120 Pertinent Medications Remeron Height 5 ft 5 in Weight 50.4 kg [place] Body Weight (kg) 61.81 BMI 18.4 Weight change and time frame 21% wt loss in 2 weeks Weight Status Underweight Subjective/Other Information Pt drinking 2 Ensure Clears daily. Pt eating 10% of meals. Pt continues to lose weight. Encouraged pt to eat more of breakfast. Percent of energy/protein needs met: 34%/26% Burn Absent Trauma Absent Current % PO Negligible Minimum of two criteria Yes Energy Intake (non-severe) <75% Estimated Energy Requirement >7 days Interpretation of Weight Loss (severe) >5% in 1 month #2 Nutrition Diagnosis Malnutrition Diagnosis Progress(for reassessment Continues documentation) #1 Nutrition Diagnosis Inadequate oral intake Diagnosis Progress(for reassessment Continues documentation) Is patient on ventilator? No Is Patient Ambulatory and/or Out of Bed No REE-([facility]-confined to bed) [phone] Calculation Used for Recommendations [facility] Additional Notes Protein: (1.2-1.5g/kg) 62-77g Fluid: 1 ml/kcal Nutrition Intervention Change Diet Order: Continue Add Supplement/Snack (indicate name/kcal Ensure Clear QID /protein ) Provides kCal: 960 Provides Protein (gm) 32 Goal #1 Meet at least 75% of protein and energy needs via PO and ONS intakes Goal #2 Weight gain/maintenance Anticipated Discharge Needs: Cardiac Follow-Up By: 09/11/20 Additional Comments FU for intakes and ONS tolerance
--- NOTE | 2020-09-10 11:47 | Progress Note ---
Assessment and Plan Acute hypoxemic respiratory failure Acute COPD exacerbation ANGELIC GERD (gastroesophageal reflux disease) HIV (human immunodeficiency virus infection) Hypertension Cocaine use Tobacco use disorder - prn CXR's & ABG's at this point - discharge planning ok pulmonary-rodriguez - no new issues, continue care as below; - resume low dose Prednisone for severe COPD exacerbation - continue to wean supplemental oxygen to keep O2 sats > 90% - continue Bronchodilators (HEIDI & LABA) with pulm hygiene per RT - continue inhaled corticosteroids - avoid nephrotoxins, renally dose all medications - continue mobility protocols to prevent pressure ulcers - PT/OT as tolerated - Wound care per RN/WCT - continue accuchecks with glycemic control per SSI for target blood glucose < 180 mg/dL - tobacco abstinence strongly counseled at the bedside - home oxygen evaluation at discharge - GI & VTE prophylaxis - Flu & pneumovax per protocol - Pulmonary out patient follow up for PFTs and optimization of respiratory sta tus - continue other care per attending / other consultants - prn analgesia per pain score ... re-evaluate in am & prn Subjective Date of service: 09/10/20 Principal diagnosis: Ac hypoxemic resp failure; AE-COPD; ANGELIC; HIV +ve; HTN; Cocaine Use Interval history: Patient is seen today for: Acute hypoxemic respiratory failure; AE-COPD; ANGELIC; HIV infection; HTN; Cocaine use; Tobacco use disorder Seen and examined at bedside; 24hour events reviewed; nursing and respiratory care staff consulted; no adverse overnight events reported to me; resting in bed; remains on supplemental oxygen; occasionally states he has chest pain but not currently; denies N/V/F/C Objective Vital Signs - 12hr 09/10/20 09/10/20 09/10/20 00:00 00:15 02:47 Temperature 98.3 F Pulse Rate 91 H 75 Pulse Rate [ 88 Bilateral] Pulse Rate [ From Monitor] Respiratory 18 Rate Respiratory 16 Rate [Bilateral ] Blood Pressure Blood Pressure 115/70 [Left] O2 Sat by Pulse 98 Oximetry 09/10/20 09/10/20 09/10/20 04:00 04:29 08:00 Temperature 96.2 F L Pulse Rate 79 75 Pulse Rate [ 82 Bilateral] Pulse Rate [ From Monitor] Respiratory 18 Rate Respiratory 19 Rate [Bilateral ] Blood Pressure 95/53 Blood Pressure [Left] O2 Sat by Pulse 100 Oximetry 09/10/20 09/10/20 09/10/20 08:01 09:48 10:00 Temperature 98.6 F Pulse Rate 84 74 Pulse Rate [ Bilateral] Pulse Rate [ 74 From Monitor] Respiratory 18 20 Rate Respiratory Rate [Bilateral ] Blood Pressure 113/58 Blood Pressure [Left] O2 Sat by Pulse 100 99 100 Oximetry Constitutional: no acute distress, other (mildly increased work of breathing at rest) Eyes: non-icteric ENT: oropharynx moist Neck: supple, no JVD Effort: mildly labored Ascultation: Bilateral: diminished breath sounds, wheezes (faint; end expiratory ), rhonchi, other (Prolonged expiratory phase.) Percussion: Bilateral: not dull Cardiovascular: regular rate and rhythm Gastrointestinal: normoactive bowel sounds, soft, non-tender, non-distended Integumentary: normal Extremities: no cyanosis, no edema, pulses normal, no ischemia or petechiae Neurologic: normal mental status, non-focal exam, pupils equal and round, motor strength normal and Psychiatric: mood appropriate, affect normal CBC and BMP: 09/05/20 04:56 09/11/20 04:07 ABG, PT/INR, D-dimer: ABG ABG pH 7.316 (7.320-7.450) L 08/28/20 11:00 POC ABG pCO2 68.0 mmHg (32.0-48.0) H 08/28/20 11:00 POC ABG pO2 75.4 mmHg (83-108) L 08/28/20 11:00 POC ABG HCO3 33.9 08/28/20 11:00 ABG O2 Saturation 93.6 (0-100) 08/28/20 11:00 Abnormal lab findings: Abnormal Labs 08/24/20 08/24/20 08/25/20 19:29 19:29 07:00 WBC RBC 3.36 L Hgb 9.7 L Hct 28.5 L MCH MCHC RDW 20.6 H Seg Neuts % (Manual) 97.0 H Lymphocytes % (Manual) 1.0 L Seg Neutrophils # Man 10.2 H Abs Lymphs (Manual) Lymphocytes # (Manual) 0.1 L ABG pH POC ABG pCO2 POC ABG pO2 ABG Hemoglobin ABG Oxyhemoglobin ABG Glucose Sodium Potassium 3.3 L Carbon Dioxide BUN Glucose 121 H POC Glucose 211 H Calcium 7.6 L TIBC Alkaline Phosphatase 154 H Albumin 3.4 L Arterial Blood Glucose Arterial Blood Ionized Calcium Lymph Enumerat CD4/CD8 % CD3 Cells Absolute CD3 Count % CD4 Cells Absolute CD4 Count Absolute CD8 Count Absolute CD19 Count Crossmatch 08/25/20 08/25/20 08/25/20 07:21 07:21 12:06 WBC RBC 3.13 L Hgb 8.9 L Hct 26.5 L MCH MCHC RDW 20.6 H Seg Neuts % (Manual) 96.0 H Lymphocytes % (Manual) 3.0 L Seg Neutrophils # Man Abs Lymphs (Manual) Lymphocytes # (Manual) 0.2 L ABG pH POC ABG pCO2 POC ABG pO2 ABG Hemoglobin ABG Oxyhemoglobin ABG Glucose Sodium Potassium Carbon Dioxide 31 H BUN Glucose 208 H POC Glucose 162 H Calcium 7.4 L TIBC Alkaline Phosphatase Albumin Arterial Blood Glucose Arterial Blood Ionized Calcium Lymph Enumerat CD4/CD8 % CD3 Cells Absolute CD3 Count % CD4 Cells Absolute CD4 Count Absolute CD8 Count Absolute CD19 Count Crossmatch 08/25/20 08/25/20 08/26/20 17:01 21:52 05:09 WBC 14.9 H RBC 3.11 L Hgb 8.9 L Hct 26.7 L MCH MCHC RDW 20.6 H Seg Neuts % (Manual) Lymphocytes % (Manual) Seg Neutrophils # Man Abs Lymphs (Manual) Lymphocytes # (Manual) ABG pH POC ABG pCO2 POC ABG pO2 ABG Hemoglobin ABG Oxyhemoglobin ABG Glucose Sodium Potassium Carbon Dioxide BUN Glucose POC Glucose 158 H 175 H Calcium TIBC Alkaline Phosphatase Albumin Arterial Blood Glucose Arterial Blood Ionized Calcium Lymph Enumerat CD4/CD8 % CD3 Cells Absolute CD3 Count % CD4 Cells Absolute CD4 Count Absolute CD8 Count Absolute CD19 Count Crossmatch 08/26/20 08/26/20 08/26/20 05:09 07:21 11:21 WBC RBC Hgb Hct MCH MCHC RDW Seg Neuts % (Manual) Lymphocytes % (Manual) Seg Neutrophils # Man Abs Lymphs (Manual) Lymphocytes # (Manual) ABG pH POC ABG pCO2 POC ABG pO2 ABG Hemoglobin ABG Oxyhemoglobin ABG Glucose Sodium Potassium Carbon Dioxide 31 H BUN 21 H Glucose 183 H POC Glucose 149 H 145 H Calcium 7.0 L TIBC Alkaline Phosphatase Albumin Arterial Blood Glucose Arterial Blood Ionized Calcium Lymph Enumerat CD4/CD8 % CD3 Cells Absolute CD3 Count % CD4 Cells Absolute CD4 Count Absolute CD8 Count Absolute CD19 Count Crossmatch 08/26/20 08/26/20 08/27/20 16:49 21:19 04:41 WBC 11.5 H RBC 2.93 L Hgb 8.0 L Hct 25.2 L MCH 27 L MCHC RDW 21.0 H Seg Neuts % (Manual) Lymphocytes % (Manual) Seg Neutrophils # Man Abs Lymphs (Manual) Lymphocytes # (Manual) ABG pH POC ABG pCO2 POC ABG pO2 ABG Hemoglobin ABG Oxyhemoglobin ABG Glucose Sodium Potassium Carbon Dioxide BUN Glucose POC Glucose 177 H 144 H Calcium TIBC Alkaline Phosphatase Albumin Arterial Blood Glucose Arterial Blood Ionized Calcium Lymph Enumerat CD4/CD8 % CD3 Cells Absolute CD3 Count % CD4 Cells Absolute CD4 Count Absolute CD8 Count Absolute CD19 Count Crossmatch 08/27/20 08/27/20 08/27/20 04:41 07:25 07:30 WBC RBC Hgb Hct MCH MCHC RDW Seg Neuts % (Manual) Lymphocytes % (Manual) Seg Neutrophils # Man Abs Lymphs (Manual) Lymphocytes # (Manual) ABG pH POC ABG pCO2 POC ABG pO2 ABG Hemoglobin ABG Oxyhemoglobin ABG Glucose Sodium Potassium Carbon Dioxide 35 H BUN 24 H Glucose 173 H POC Glucose 153 H 143 H Calcium 7.3 L TIBC Alkaline Phosphatase Albumin Arterial Blood Glucose Arterial Blood Ionized Calcium Lymph Enumerat CD4/CD8 % CD3 Cells Absolute CD3 Count % CD4 Cells Absolute CD4 Count Absolute CD8 Count Absolute CD19 Count Crossmatch 08/27/20 08/27/20 08/27/20 11:27 15:49 21:17 WBC RBC Hgb Hct MCH MCHC RDW Seg Neuts % (Manual) Lymphocytes % (Manual) Seg Neutrophils # Man Abs Lymphs (Manual) Lymphocytes # (Manual) ABG pH POC ABG pCO2 POC ABG pO2 ABG Hemoglobin ABG Oxyhemoglobin ABG Glucose Sodium Potassium Carbon Dioxide BUN Glucose POC Glucose 236 H 184 H 144 H Calcium TIBC Alkaline Phosphatase Albumin Arterial Blood Glucose Arterial Blood Ionized Calcium Lymph Enumerat CD4/CD8 % CD3 Cells Absolute CD3 Count % CD4 Cells Absolute CD4 Count Absolute CD8 Count Absolute CD19 Count Crossmatch 08/28/20 08/28/20 08/28/20 05:55 05:55 07:25 WBC RBC 2.58 L Hgb 7.6 L Hct 22.1 L MCH MCHC 35 H RDW 20.3 H Seg Neuts % (Manual) Lymphocytes % (Manual) Seg Neutrophils # Man Abs Lymphs (Manual) Lymphocytes # (Manual) ABG pH POC ABG pCO2 POC ABG pO2 ABG Hemoglobin ABG Oxyhemoglobin ABG Glucose Sodium Potassium 3.5 L Carbon Dioxide BUN 33 H Glucose 183 H POC Glucose 164 H Calcium 6.8 L TIBC Alkaline Phosphatase Albumin Arterial Blood Glucose Arterial Blood Ionized Calcium Lymph Enumerat CD4/CD8 % CD3 Cells Absolute CD3 Count % CD4 Cells Absolute CD4 Count Absolute CD8 Count Absolute CD19 Count Crossmatch 08/28/20 08/28/20 08/28/20 11:00 12:06 15:28 WBC RBC Hgb Hct MCH MCHC RDW Seg Neuts % (Manual) Lymphocytes % (Manual) Seg Neutrophils # Man Abs Lymphs (Manual) Lymphocytes # (Manual) ABG pH 7.316 L POC ABG pCO2 68.0 H POC ABG pO2 75.4 L ABG Hemoglobin 8.3 L ABG Oxyhemoglobin 92.5 L ABG Glucose 302 H Sodium Potassium Carbon Dioxide BUN Glucose POC Glucose 233 H 146 H Calcium TIBC Alkaline Phosphatase Albumin Arterial Blood Glucose 302 H Arterial Blood Ionized Calcium 3.8 L Lymph Enumerat CD4/CD8 % CD3 Cells Absolute CD3 Count % CD4 Cells Absolute CD4 Count Absolute CD8 Count Absolute CD19 Count Crossmatch 08/28/20 08/29/20 08/29/20 21:34 07:26 12:05 WBC RBC Hgb Hct MCH MCHC RDW Seg Neuts % (Manual) Lymphocytes % (Manual) Seg Neutrophils # Man Abs Lymphs (Manual) Lymphocytes # (Manual) ABG pH POC ABG pCO2 POC ABG pO2 ABG Hemoglobin ABG Oxyhemoglobin ABG Glucose Sodium Potassium Carbon Dioxide BUN Glucose POC Glucose 201 H 167 H 253 H Calcium TIBC Alkaline Phosphatase Albumin Arterial Blood Glucose Arterial Blood Ionized Calcium Lymph Enumerat CD4/CD8 % CD3 Cells Absolute CD3 Count % CD4 Cells Absolute CD4 Count Absolute CD8 Count Absolute CD19 Count Crossmatch 08/29/20 08/29/20 08/30/20 16:32 21:56 07:53 WBC RBC Hgb Hct MCH MCHC RDW Seg Neuts % (Manual) Lymphocytes % (Manual) Seg Neutrophils # Man Abs Lymphs (Manual) Lymphocytes # (Manual) ABG pH POC ABG pCO2 POC ABG pO2 ABG Hemoglobin ABG Oxyhemoglobin ABG Glucose Sodium Potassium Carbon Dioxide BUN Glucose POC Glucose 128 H 220 H 286 H Calcium TIBC Alkaline Phosphatase Albumin Arterial Blood Glucose Arterial Blood Ionized Calcium Lymph Enumerat CD4/CD8 % CD3 Cells Absolute CD3 Count % CD4 Cells Absolute CD4 Count Absolute CD8 Count Absolute CD19 Count Crossmatch 08/30/20 08/30/20 08/30/20 11:29 17:32 22:03 WBC RBC Hgb Hct MCH MCHC RDW Seg Neuts % (Manual) Lymphocytes % (Manual) Seg Neutrophils # Man Abs Lymphs (Manual) Lymphocytes # (Manual) ABG pH POC ABG pCO2 POC ABG pO2 ABG Hemoglobin ABG Oxyhemoglobin ABG Glucose Sodium Potassium Carbon Dioxide BUN Glucose POC Glucose 299 H 260 H 196 H Calcium TIBC Alkaline Phosphatase Albumin Arterial Blood Glucose Arterial Blood Ionized Calcium Lymph Enumerat CD4/CD8 % CD3 Cells Absolute CD3 Count % CD4 Cells Absolute CD4 Count Absolute CD8 Count Absolute CD19 Count Crossmatch 08/31/20 08/31/20 08/31/20 07:41 11:26 16:19 WBC RBC Hgb Hct MCH MCHC RDW Seg Neuts % (Manual) Lymphocytes % (Manual) Seg Neutrophils # Man Abs Lymphs (Manual) Lymphocytes # (Manual) ABG pH POC ABG pCO2 POC ABG pO2 ABG Hemoglobin ABG Oxyhemoglobin ABG Glucose Sodium Potassium Carbon Dioxide BUN Glucose POC Glucose 166 H 269 H 265 H Calcium TIBC Alkaline Phosphatase Albumin Arterial Blood Glucose Arterial Blood Ionized Calcium Lymph Enumerat CD4/CD8 % CD3 Cells Absolute CD3 Count % CD4 Cells Absolute CD4 Count Absolute CD8 Count Absolute CD19 Count Crossmatch 08/31/20 09/01/20 09/01/20 20:44 07:40 11:39 WBC RBC Hgb Hct MCH MCHC RDW Seg Neuts % (Manual) Lymphocytes % (Manual) Seg Neutrophils # Man Abs Lymphs (Manual) Lymphocytes # (Manual) ABG pH POC ABG pCO2 POC ABG pO2 ABG Hemoglobin ABG Oxyhemoglobin ABG Glucose Sodium Potassium Carbon Dioxide BUN Glucose POC Glucose 243 H 272 H 320 H Calcium TIBC Alkaline Phosphatase Albumin Arterial Blood Glucose Arterial Blood Ionized Calcium Lymph Enumerat CD4/CD8 % CD3 Cells Absolute CD3 Count % CD4 Cells Absolute CD4 Count Absolute CD8 Count Absolute CD19 Count Crossmatch 09/01/20 09/01/20 09/02/20 16:16 21:59 08:32 WBC RBC Hgb Hct MCH MCHC RDW Seg Neuts % (Manual) Lymphocytes % (Manual) Seg Neutrophils # Man Abs Lymphs (Manual) Lymphocytes # (Manual) ABG pH POC ABG pCO2 POC ABG pO2 ABG Hemoglobin ABG Oxyhemoglobin ABG Glucose Sodium Potassium Carbon Dioxide BUN Glucose POC Glucose 319 H 157 H 195 H Calcium TIBC Alkaline Phosphatase Albumin Arterial Blood Glucose Arterial Blood Ionized Calcium Lymph Enumerat CD4/CD8 % CD3 Cells Absolute CD3 Count % CD4 Cells Absolute CD4 Count Absolute CD8 Count Absolute CD19 Count Crossmatch 09/02/20 09/02/20 09/03/20 11:44 20:09 05:02 WBC RBC 2.25 L Hgb 6.5 L Hct 19.7 L* MCH MCHC RDW 21.3 H Seg Neuts % (Manual) Lymphocytes % (Manual) Seg Neutrophils # Man Abs Lymphs (Manual) Lymphocytes # (Manual) ABG pH POC ABG pCO2 POC ABG pO2 ABG Hemoglobin ABG Oxyhemoglobin ABG Glucose Sodium Potassium Carbon Dioxide BUN Glucose POC Glucose 167 H 214 H Calcium TIBC Alkaline Phosphatase Albumin Arterial Blood Glucose Arterial Blood Ionized Calcium Lymph Enumerat CD4/CD8 % CD3 Cells Absolute CD3 Count % CD4 Cells Absolute CD4 Count Absolute CD8 Count Absolute CD19 Count Crossmatch 09/03/20 09/03/20 09/03/20 05:02 07:35 09:56 WBC RBC Hgb Hct MCH MCHC RDW Seg Neuts % (Manual) Lymphocytes % (Manual) Seg Neutrophils # Man Abs Lymphs (Manual) Lymphocytes # (Manual) ABG pH POC ABG pCO2 POC ABG pO2 ABG Hemoglobin ABG Oxyhemoglobin ABG Glucose Sodium 149 H Potassium 3.3 L Carbon Dioxide 38 H BUN 30 H Glucose 212 H POC Glucose 207 H Calcium 6.7 L TIBC Alkaline Phosphatase Albumin Arterial Blood Glucose Arterial Blood Ionized Calcium Lymph Enumerat CD4/CD8 % CD3 Cells Absolute CD3 Count % CD4 Cells Absolute CD4 Count Absolute CD8 Count Absolute CD19 Count Crossmatch See Detail 09/03/20 09/03/20 09/04/20 12:05 16:04 05:53 WBC 14.8 H RBC 2.99 L Hgb 8.6 L Hct 26.4 L D MCH MCHC RDW 19.0 H Seg Neuts % (Manual) Lymphocytes % (Manual) Seg Neutrophils # Man Abs Lymphs (Manual) Lymphocytes # (Manual) ABG pH POC ABG pCO2 POC ABG pO2 ABG Hemoglobin ABG Oxyhemoglobin ABG Glucose Sodium Potassium Carbon Dioxide BUN Glucose POC Glucose 193 H 174 H Calcium TIBC Alkaline Phosphatase Albumin Arterial Blood Glucose Arterial Blood Ionized Calcium Lymph Enumerat CD4/CD8 % CD3 Cells Absolute CD3 Count % CD4 Cells Absolute CD4 Count Absolute CD8 Count Absolute CD19 Count Crossmatch 09/04/20 09/04/20 09/04/20 05:53 05:53 08:33 WBC RBC Hgb Hct MCH MCHC RDW Seg Neuts % (Manual) Lymphocytes % (Manual) Seg Neutrophils # Man Abs Lymphs (Manual) 98 L Lymphocytes # (Manual) ABG pH POC ABG pCO2 POC ABG pO2 ABG Hemoglobin ABG Oxyhemoglobin ABG Glucose Sodium 149 H Potassium Carbon Dioxide 39 H BUN 28 H Glucose 175 H POC Glucose 222 H Calcium 6.9 L TIBC 214 L Alkaline Phosphatase Albumin Arterial Blood Glucose Arterial Blood Ionized Calcium Lymph Enumerat CD4/CD8 0.68 L % CD3 Cells 51 L Absolute CD3 Count 50 L % CD4 Cells 20 L Absolute CD4 Count 20 L Absolute CD8 Count 29 L Absolute CD19 Count 17 L Crossmatch 09/04/20 09/04/20 09/05/20 11:21 15:42 04:56 WBC RBC 2.88 L Hgb 8.6 L Hct 25.3 L MCH MCHC RDW 19.6 H Seg Neuts % (Manual) Lymphocytes % (Manual) Seg Neutrophils # Man Abs Lymphs (Manual) Lymphocytes # (Manual) ABG pH POC ABG pCO2 POC ABG pO2 ABG Hemoglobin ABG Oxyhemoglobin ABG Glucose Sodium Potassium Carbon Dioxide BUN Glucose POC Glucose 253 H 240 H Calcium TIBC Alkaline Phosphatase Albumin Arterial Blood Glucose Arterial Blood Ionized Calcium Lymph Enumerat CD4/CD8 % CD3 Cells Absolute CD3 Count % CD4 Cells Absolute CD4 Count Absolute CD8 Count Absolute CD19 Count Crossmatch 09/05/20 09/05/20 09/05/20 04:56 07:31 12:01 WBC RBC Hgb Hct MCH MCHC RDW Seg Neuts % (Manual) Lymphocytes % (Manual) Seg Neutrophils # Man Abs Lymphs (Manual) Lymphocytes # (Manual) ABG pH POC ABG pCO2 POC ABG pO2 ABG Hemoglobin ABG Oxyhemoglobin ABG Glucose Sodium 149 H Potassium 3.1 L Carbon Dioxide 48 H* D BUN 24 H Glucose 142 H POC Glucose 131 H 124 H Calcium 6.5 L TIBC Alkaline Phosphatase Albumin Arterial Blood Glucose Arterial Blood Ionized Calcium Lymph Enumerat CD4/CD8 % CD3 Cells Absolute CD3 Count % CD4 Cells Absolute CD4 Count Absolute CD8 Count Absolute CD19 Count Crossmatch 09/05/20 09/05/20 09/06/20 16:52 20:19 04:26 WBC RBC Hgb Hct MCH MCHC RDW Seg Neuts % (Manual) Lymphocytes % (Manual) Seg Neutrophils # Man Abs Lymphs (Manual) Lymphocytes # (Manual) ABG pH POC ABG pCO2 POC ABG pO2 ABG Hemoglobin ABG Oxyhemoglobin ABG Glucose Sodium 151 H Potassium 3.3 L Carbon Dioxide 44 H* BUN 24 H Glucose POC Glucose 168 H 130 H Calcium 5.8 L* TIBC Alkaline Phosphatase Albumin Arterial Blood Glucose Arterial Blood Ionized Calcium Lymph Enumerat CD4/CD8 % CD3 Cells Absolute CD3 Count % CD4 Cells Absolute CD4 Count Absolute CD8 Count Absolute CD19 Count Crossmatch 09/06/20 09/06/20 09/06/20 11:51 15:19 20:20 WBC RBC Hgb Hct MCH MCHC RDW Seg Neuts % (Manual) Lymphocytes % (Manual) Seg Neutrophils # Man Abs Lymphs (Manual) Lymphocytes # (Manual) ABG pH POC ABG pCO2 POC ABG pO2 ABG Hemoglobin ABG Oxyhemoglobin ABG Glucose Sodium Potassium Carbon Dioxide BUN Glucose POC Glucose 150 H 113 H 138 H Calcium TIBC Alkaline Phosphatase Albumin Arterial Blood Glucose Arterial Blood Ionized Calcium Lymph Enumerat CD4/CD8 % CD3 Cells Absolute CD3 Count % CD4 Cells Absolute CD4 Count Absolute CD8 Count Absolute CD19 Count Crossmatch 09/07/20 09/07/20 09/07/20 07:41 09:41 11:47 WBC RBC Hgb Hct MCH MCHC RDW Seg Neuts % (Manual) Lymphocytes % (Manual) Seg Neutrophils # Man Abs Lymphs (Manual) Lymphocytes # (Manual) ABG pH POC ABG pCO2 POC ABG pO2 ABG Hemoglobin ABG Oxyhemoglobin ABG Glucose Sodium 146 H Potassium Carbon Dioxide 43 H* BUN 24 H Glucose 186 H POC Glucose 118 H 198 H Calcium 6.1 L TIBC Alkaline Phosphatase Albumin Arterial Blood Glucose Arterial Blood Ionized Calcium Lymph Enumerat CD4/CD8 % CD3 Cells Absolute CD3 Count % CD4 Cells Absolute CD4 Count Absolute CD8 Count Absolute CD19 Count Crossmatch [id number] 09/08/20 21:58 05:09 07:55 WBC RBC Hgb Hct MCH MCHC RDW Seg Neuts % (Manual) Lymphocytes % (Manual) Seg Neutrophils # Man Abs Lymphs (Manual) Lymphocytes # (Manual) ABG pH POC ABG pCO2 POC ABG pO2 ABG Hemoglobin ABG Oxyhemoglobin ABG Glucose Sodium 146 H Potassium Carbon Dioxide 47 H* BUN Glucose 120 H POC Glucose 215 H 110 H Calcium 6.1 L TIBC Alkaline Phosphatase Albumin Arterial Blood Glucose Arterial Blood Ionized Calcium Lymph Enumerat CD4/CD8 % CD3 Cells Absolute CD3 Count % CD4 Cells Absolute CD4 Count Absolute CD8 Count Absolute CD19 Count Crossmatch 09/08/20 09/08/20 09/08/20 11:27 16:46 20:17 WBC RBC Hgb Hct MCH MCHC RDW Seg Neuts % (Manual) Lymphocytes % (Manual) Seg Neutrophils # Man Abs Lymphs (Manual) Lymphocytes # (Manual) ABG pH POC ABG pCO2 POC ABG pO2 ABG Hemoglobin ABG Oxyhemoglobin ABG Glucose Sodium Potassium Carbon Dioxide BUN Glucose POC Glucose 113 H 139 H 122 H Calcium TIBC Alkaline Phosphatase Albumin Arterial Blood Glucose Arterial Blood Ionized Calcium Lymph Enumerat CD4/CD8 % CD3 Cells Absolute CD3 Count % CD4 Cells Absolute CD4 Count Absolute CD8 Count Absolute CD19 Count Crossmatch 09/09/20 09/09/20 09/09/20 08:08 11:28 16:22 WBC RBC Hgb Hct MCH MCHC RDW Seg Neuts % (Manual) Lymphocytes % (Manual) Seg Neutrophils # Man Abs Lymphs (Manual) Lymphocytes # (Manual) ABG pH POC ABG pCO2 POC ABG pO2 ABG Hemoglobin ABG Oxyhemoglobin ABG Glucose Sodium Potassium Carbon Dioxide BUN Glucose POC Glucose 107 H 113 H 108 H Calcium TIBC Alkaline Phosphatase Albumin Arterial Blood Glucose Arterial Blood Ionized Calcium Lymph Enumerat CD4/CD8 % CD3 Cells Absolute CD3 Count % CD4 Cells Absolute CD4 Count Absolute CD8 Count Absolute CD19 Count Crossmatch Chest x-ray: pending Allied health notes reviewed: nursing
[2020-09-10] MEDS: predniSONE 20 MG TAB PO SCH (13:11)
[2020-09-10] MEDS: MONTELUKAST 10 MG TAB PO SCH (22:39)
[2020-09-10] MEDS: MIRTAZAPINE 15 MG TAB PO SCH (22:40)
[2020-09-10] MEDS: oxyCODONE /ACETAMINOPHEN 5-325MG TAB PO PRN (22:41)
[2020-09-11] MEDS: LEVALBUTEROL 0.63 MG/3 ML NEBU IH SCH ×3 (02:15→20:57)
[2020-09-11] MEDS: IPRATROPIUM 0.02% NEBU 2.5 ML IH SCH ×3 (02:15→20:57)
[2020-09-11 04:59] LABS: BUN/Creatinine Ratio 15; Blood Urea Nitrogen 12 mg/dL (9-20); Calcium 6.1 mg/dL (8.4-10.2); Hemolysis Index 4
[2020-09-11] MEDS: HEPARIN 5,000 UNIT/1 ML VIAL SUB-Q SCH ×3 (06:04→21:52)
[2020-09-11] MEDS: ARFORMOTEROL 15 MCG/2 ML NEBU IH SCH ×2 (07:48→20:56)
[2020-09-11] MEDS: BUDESONIDE 0.5 MG/2 ML NEBU IH SCH ×2 (07:48→20:52)
[2020-09-11] MEDS: INSULIN NPH/REGULAR 70/30 INJ SUB-Q SCH ×2 (09:07→17:17)
[2020-09-11] MEDS: predniSONE 20 MG TAB PO SCH (09:08)
[2020-09-11] MEDS: carvediloL 6.25 MG TAB PO SCH ×2 (09:08→21:51)
[2020-09-11] MEDS: MULTIVITAMINS ,THERAPEUTIC TAB PO SCH (09:08)
--- NOTE | 2020-09-11 09:08 | Progress Note ---
Assessment and Plan Assessment and plan: Patient is requiring 5 L of nasal cannula oxygen today --Paroxysmal atrial fibrillation; Patient is in sinus rhythm today with heart rate in 70s No A. fib last 24 hours Cardiology following Continue beta-blockers, not a candidate for anticoagulation Due to severe anemia requiring blood transfusion --Acute exacerbation of COPD ; Patient is a current smoker Continue nasal cannula oxygen titrate O2 sats to more than 90% --Acute hypoxic respiratory failure ; requiring BiPAP Continue oxygen via nasal cannula 4 L today Titrate O2 sats more than 90%, BiPAP as needed --Leukocytosis- resolved --Hypertension; moderate control Continue current antihypertensives, as needed medications --Normocytic anemia Hemoglobin is down to 8.0 > 7.6 this morning Closely monitor H&H transfuse as needed --Hyperglycemia -likely secondary to steroids HD A1c 5.8, Accu-Chek sliding scale coverage Long-acting insulin if needed --Ongoing tobacco abuse Patient counseled on tobacco cessation Nicotine patch as needed --history of HIV infection for many years Patient follow-up private ID/health department upon discharge --Mild to moderate malnutrition/hypoalbuminemia Nutrition supplements and supportive care --DVT prophylaxis; Heparin subcu/SCDs Physical therapy/Occupational Therapy evaluation and treatment DC planning per case management OT recommended subacute rehab /SNF placement. Awaiting placement, patient is medically stable for discharge Cleared by pulmonary Brief history: and Daily Hospital course; 08/29; patient requiring BiPAP, severely short of breath, pulmonary following; Wean as tolerated ; requiring intermittent BiPAP especially at night This morning patient is on 4 L of nasal cannula oxygen Patient already has home oxygen at 3 L Pulmonary following 08/31/2020; patient continues to be in shortness of breath Unable to keep his oxygen, confused at times BiPAP as needed, pulmonary following Recommend placement SNF, Check for [facility] PCR PT OT evaluation 09/01/2020; on 4 L of nasal oxygen Awaiting placement Resumed service; 09/05/2020; I checked with monitor room, patient is in sinus heart rate in 70s No A. fib last 24 hours Awaiting subacute rehab placement 09/06/2020; hypokalemia, hypocalcemia Replenished with KCl, calcium gluconate and calcium carbonate Follow electrolytes 09/07/2020; follow today's labs Awaiting placement 09/08/2020; patient is clinically stable for discharge Awaiting subacute rehab placement 09/09/2020; awaiting placement 09/10/2020; no new complaints, stable for discharge Awaiting placement 09/11/2020; pulmonary cleared for discharge Pending placement DC planning per case management History Interval history: I have seen and examined the patient at the bedside this morning Patient's chart and medications reviewed patient has no new complaints Vital signs stable Awaiting placement Hospitalist Physical - Constitutional Vitals: Temp Pulse Resp BP Pulse Ox 98.6 F 72 19 104/53 89 09/11/20 07:33 09/11/20 07:33 09/11/20 07:33 09/11/20 07:33 09/11/20 07:48 General appearance: Present: no acute distress, well-nourished - EENT Eyes: Present: PERRL, EOM intact - Neck Neck: Present: supple, normal ROM - Respiratory Respiratory effort: normal Respiratory: bilateral: diminished, negative: rales, rhonchi, wheezing - Cardiovascular Rhythm: regular Heart Sounds: Present: S1 & S2 - Extremities Extremities: no ischemia, No edema - Abdominal General gastrointestinal: soft, non-tender, non-distended, normal bowel sounds - Integumentary Integumentary: Present: clear, warm - Psychiatric Psychiatric: appropriate mood/affect, cooperative - Neurologic Neurologic: moves all extremities HEART Score - HEART Score Troponin: Troponin T < 0.010 ng/mL (0.00-0.029) 09/04/20 05:53 Results - Labs CBC & Chem 7: 09/05/20 04:56 09/11/20 04:07 Labs: Laboratory Last Values WBC 7.7 K/mm3 (4.5-11.0) 09/05/20 04:56 RBC 2.88 M/mm3 (3.65-5.03) L 09/05/20 04:56 Hgb 8.6 gm/dl (11.8-15.2) L 09/05/20 04:56 Hct 25.3 % (35.5-45.6) L 09/05/20 04:56 MCV 88 fl (84-94) 09/05/20 04:56 MCH 30 pg (28-32) 09/05/20 04:56 MCHC 34 % (32-34) 09/05/20 04:56 RDW 19.6 % (13.2-15.2) H 09/05/20 04:56 Plt Count 143 K/mm3 (140-440) 09/05/20 04:56 Add Manual Diff Complete 08/25/20 07:21 Total Counted 100 08/25/20 07:21 Seg Neutrophils % Safety Trainer 08/25/20 07:21 Seg Neuts % (Manual) 96.0 % (40.0-70.0) H 08/25/20 07:21 Lymphocytes % (Manual) 3.0 % (13.4-35.0) L 08/25/20 07:21 Monocytes % (Manual) 2.0 % (0.0-7.3) 08/24/20 19:29 Myelocytes % 1.0 % 08/25/20 07: Nucleated RBC % Not Reportable 08/25/20 07:21 Seg Neutrophils # Man 4.8 K/mm3 (1.8-7.7) 08/25/20 07:21 Band Neutrophils # 0.0 K/mm3 08/25/20 07:21 Abs Lymphs (Manual) 98 cells/uL (850-3900) L 09/04/20 05:53 Lymphocytes # (Manual) 0.2 K/mm3 (1.2-5.4) L 08/25/20 07:21 Abs React Lymphs (Man) 0.0 K/mm3 08/25/20 07:21 Monocytes # (Manual) 0.0 K/mm3 (0.0-0.8) 08/25/20 07:21 Eosinophils # (Manual) 0.0 K/mm3 (0.0-0.4) 08/25/20 07:21 Basophils # (Manual) 0.0 K/mm3 (0.0-0.1) 08/25/20 07:21 Metamyelocytes # 0.0 K/mm3 08/25/20 07:21 Myelocytes # 0.1 K/mm3 08/25/20 07:21 Promyelocytes # 0.0 K/mm3 08/25/20 07:21 Blast Cells # 0.0 K/mm3 08/25/20 07:21 WBC Morphology Not Reportable 08/25/20 07:21 Hypersegmented Neuts Not Reportable 08/25/20 07:21 Hyposegmented Neuts Not Reportable 08/25/20 07:21 Hypogranular Neuts Not Reportable 08/25/20 07:21 Smudge Cells Not Reportable 08/25/20 07:21 Toxic Granulation Not Reportable 08/25/20 07:21 Toxic Vacuolation Not Reportable 08/25/20 07:21 Dohle Bodies Not Reportable 08/25/20 07:21 Pelger-Huet Anomaly Not Reportable 08/25/20 07:21 Ruma Rods Not Reportable 08/25/20 07:21 Platelet Estimate Consistent w auto 08/25/20 07:21 Clumped Platelets Not Reportable 08/25/20 07:21 Plt Clumps, EDTA Not Reportable 08/25/20 07:21 Large Platelets Not Reportable 08/25/20 07:21 Giant Platelets Not Reportable 08/25/20 07:21 Platelet Satelliting Not Reportable 08/25/20 07:21 Plt Morphology Comment Not Reportable 08/25/20 07:21 RBC Morphology Not Reportable 08/25/20 07:21 Dimorphic RBCs Not Reportable 08/25/20 07:21 Polychromasia Not Reportable 08/25/20 07:21 Hypochromasia 1+ 08/25/20 07:21 Poikilocytosis 1+ 08/25/20 07:21 Anisocytosis 1+ 08/25/20 07:21 Microcytosis Not Reportable 08/25/20 07:21 Macrocytosis Not Reportable 08/25/20 07:21 Spherocytes Not Reportable 08/25/20 07:21 Pappenheimer Bodies Not Reportable 08/25/20 07:21 Sickle Cells Not Reportable 08/25/20 07:21 Target Cells Not Reportable 08/25/20 07:21 Tear Drop Cells Not Reportable 08/25/20 07:21 Ovalocytes 1+ 08/25/20 07:21 Helmet Cells Not Reportable 08/25/20 07:21 [place] Bodies Not Reportable 08/25/20 07:21 [place] Rings Not Reportable 08/25/20 07:21 [place] Cells Not Reportable 08/25/20 07:21 Bite Cells Not Reportable 08/25/20 07:21 Crenated Cell Not Reportable 08/25/20 07:21 Elliptocytes 2+ 08/25/20 07:21 Acanthocytes (Spur) 1+ 08/25/20 07:21 Rouleaux Not Reportable 08/25/20 07:21 Hemoglobin C Crystals Not Reportable 08/25/20 07:21 Schistocytes Not Reportable 08/25/20 07:21 Malaria parasites Not Reportable 08/25/20 07:21 Ric Bodies Not Reportable 08/25/20 07:21 Hem Pathologist Commnt No 08/25/20 07:21 ABG pH 7.316 (7.320-7.450) L 08/28/20 11:00 POC ABG pCO2 68.0 mmHg (32.0-48.0) H 08/28/20 11:00 POC ABG pO2 75.4 mmHg (83-108) L 08/28/20 11:00 POC ABG HCO3 33.9 08/28/20 11:00 ABG O2 Saturation 93.6 (0-100) 08/28/20 11:00 POC ABG Base Excess 6.6 08/28/20 11:00 ABG Hemoglobin 8.3 (12.0-17.5) L 08/28/20 11:00 ABG Oxyhemoglobin 92.5 (94-98) L 08/28/20 11:00 ABG Methemoglobin 0.3 (0.0-1.5) 08/28/20 11:00 ABG Sodium 143.2 mmol/L (136.0-145.0) 08/28/20 11:00 ABG Potassium 3.8 mmol/L (3.40-4.50) 08/28/20 11:00 ABG Chloride 103.0 mmol/L (98-107) 08/28/20 11:00 ABG Glucose 302 mg/dL (65-95) H 08/28/20 11:00 Carboxyhemoglobin 0.9 (0.5-1.5) 08/28/20 11:00 FiO2 % 40.0 08/28/20 11:00 Sodium 145 mmol/L (137-145) 09/11/20 04:07 Potassium 3.6 mmol/L (3.6-5.0) 09/11/20 04:07 Chloride 95.1 mmol/L (98-107) L 09/11/20 04:07 Carbon Dioxide 48 mmol/L (22-30) H* 09/11/20 04:07 Anion Gap 6 mmol/L 09/11/20 04:07 BUN 12 mg/dL (9-20) 09/11/20 04:07 Creatinine 0.8 mg/dL (0.8-1.3) 09/11/20 04:07 Estimated GFR > 60 ml/min 09/11/20 04:07 BUN/Creatinine Ratio 15 % 09/11/20 04:07 Glucose 135 mg/dL (75-100) H 09/11/20 04:07 POC Glucose 151 mg/dL (70-105) H 09/11/20 07:41 Hemoglobin A1c 5.8 % (4-6) 08/25/20 07:27 Calcium 6.1 mg/dL (8.4-10.2) L 09/11/20 04:07 Magnesium 1.70 mg/dL (1.7-2.3) 09/11/20 04:07 Iron 58 ug/dL (49-181) 09/04/20 05:53 TIBC 214 mcg/dL (250-450) L 09/04/20 05:53 Total Bilirubin 0.40 mg/dL (0.1-1.2) 08/24/20 19:29 AST 21 units/L (5-40) 08/24/20 19:29 ALT 36 units/L (7-56) 08/24/20 19:29 Alkaline Phosphatase 154 units/L (35-129) H 08/24/20 19:29 Troponin T < 0.010 ng/mL (0.00-0.029) 09/04/20 05:53 Total Protein 6.5 g/dL (6.3-8.2) 08/24/20 19:29 Albumin 3.4 g/dL (3.9-5) L 08/24/20 19:29 Albumin/Globulin Ratio 1.1 % 08/24/20 19:29 Arterial Blood Glucose 302 mg/dL (65-95) H 08/28/20 11:00 Arterial Blood Ionized Calcium 3.8 mg/dL (4.6-5.3) L 08/28/20 11:00 Lymph Enumerat CD4/CD8 0.68 (0.86-5.00) L 09/04/20 05:53 % CD3 Cells 51 % (57-85) L 09/04/20 05:53 Absolute CD3 Count 50 cells/uL (840-3060) L 09/04/20 05:53 % CD4 Cells 20 % (30-61) L 09/04/20 05:53 Absolute CD4 Count 20 cells/uL (490-1740) L 09/04/20 05:53 % CD8 Cells 30 % (12-42) 09/04/20 05:53 Absolute CD8 Count 29 cells/uL (180-1170) L 09/04/20 05:53 % CD19 Cells 17 % (6-29) 09/04/20 05:53 Absolute CD19 Count 17 cells/uL (110-660) L 09/04/20 05:53 Coronavirus (PCR) Negative (Negative) 09/01/20 Unknown Blood Type A POSITIVE 09/03/20 09:56 Antibody Screen Negative 09/03/20 09:56 Crossmatch See Detail 09/03/20 09:56 [place]/IV: Voiding Method Urinal Active Medications - Current Medications Current Medications: Generic Name Dose Route Start Last Admin Trade Name Freq PRN Reason Stop Dose Admin Acetaminophen 650 mg 08/24/20 22:12 Acetaminophen 325 Mg Tab PO Q4H PRN Pain MILD(1-3)/Fever >100.5/KOENIG Alprazolam 0.25 mg 08/30/20 11:30 09/09/20 01:46 Alprazolam 0.25 Mg Tab PO 0.25 mg Q8H PRN Administration Anxiety Arformoterol Tartrate 15 mcg 08/25/20 20:00 09/11/20 07:48 Arformoterol 15 Mcg/2 Ml Nebu IH Not Given Q12HRT NADIA Aspirin 81 mg 08/25/20 10:00 09/10/20 09:31 Aspirin Ec 81 Mg Tab PO 81 mg QDAY NADIA Administration Atorvastatin Calcium 40 mg 08/25/20 22:00 09/10/20 22:40 Atorvastatin 40 Mg Tab PO 40 mg QHS NADIA Administration Budesonide 0.5 mg 08/25/20 08:00 09/11/20 07:48 Budesonide 0.5 Mg/2 Ml Nebu IH Not Given Q12HRT NADIA Calcium Carbonate/Glycine 500 mg 09/06/20 09:00 09/10/20 22:40 Calcium Carbonate 500 Mg Tab Chew PO 500 mg TID NADIA Administration Carvedilol 6.25 mg 09/02/20 12:00 09/10/20 22:41 Carvedilol 6.25 Mg Tab PO Not Given BID NADIA Guaifenesin 400 mg 08/29/20 13:00 08/30/20 05:33 Guaifenesin 200 Mg Tab PO 400 mg Q4HR PRN Administration Cough Heparin Sodium (Porcine) 5,000 unit 08/25/20 06:00 09/11/20 06:04 Heparin 5,000 Unit/1 Ml Vial SUB-Q 5,000 unit Q8HR NADIA Administration Hydralazine HCl 10 mg 08/24/20 22:14 08/31/20 13:40 Hydralazine 20 Mg/1 Ml Inj IV 10 mg Q6H PRN Administration SBP>/=160; DBP >/=100 Insulin Human Isoph/Insulin Regular 5 unit 09/10/20 17:00 09/10/20 17:08 Insulin Nph/Regular 70/30 Inj SUB-Q Not Given BIDDIAB [facility] Insulin Human Lispro 0 unit 08/25/20 22:00 09/10/20 22:41 Insulin Lispro 100 Unit/Ml SUB-Q 6 unit QHS [facility] Administration Protocol Ipratropium [place] 0.5 mg 09/02/20 16:00 09/11/20 07:48 Ipratropium 0.02% Nebu 2.5 Ml IH Not Given Q8HRT [facility] Ketorolac Tromethamine 15 mg 09/07/20 15:22 09/07/20 17:32 Ketorolac 30 Mg/1 Ml Inj IV 09/12/20 15:21 15 mg Q8HR PRN Administration Pain, Mild (1-3) Levalbuterol HCl 0.63 mg 09/01/20 18:00 09/11/20 07:48 Levalbuterol 0.63 Mg/3 Ml Nebu IH Not Given Q8HRT [facility] Mirtazapine 7.5 mg 08/25/20 22:00 09/10/20 22:40 Mirtazapine 15 Mg Tab PO 7.5 mg QHS [facility] Administration Montelukast Sodium 10 mg 08/25/20 22:00 09/10/20 22:39 Montelukast 10 Mg Tab PO 10 mg QHS [facility] Administration Multivitamins 1 each 09/04/20 10:00 09/10/20 09:31 Multivitamins ,Therapeutic Tab PO 1 each QDAY NADIA Administration Multivitamins/Iron 1 each 09/04/20 10:00 09/10/20 09:31 Fe Fumarate/Fa/Mv, Min Comb#15 Cap (Hemocyte Plus) PO 1 each QDAY NADIA Administration Ondansetron HCl 4 mg 08/24/20 22:12 Ondansetron 4 Mg/2 Ml Inj IV Q8H PRN Nausea And Vomiting Oxycodone/Acetaminophen 1 tab 08/24/20 22:23 09/10/20 22:41 Oxycodone /Acetaminophen 5-325mg Tab PO 1 tab BID PRN Administration Pain , Severe (7-10) Pantoprazole Sodium 40 mg 08/25/20 10:00 09/10/20 09:31 Pantoprazole 40 Mg Tab PO 40 mg QDAY NADIA Administration Polyethylene Glycol 17 gm 08/28/20 10:00 09/10/20 09:31 Polyethylene Glycol 3350 17 Gm Powder PO Not Given QDAY NADIA Prednisone 20 mg 09/10/20 12:00 09/10/20 13:11 Prednisone 20 Mg Tab PO 20 mg QDAY NADIA Administration Sodium Chloride 10 ml 08/25/20 10:00 09/10/20 22:41 Sodium Chloride 0.9% 10 Ml Flush Syringe IV 10 ml BID NADIA Administration Sodium Chloride 10 ml 08/24/20 22:12 Sodium Chloride 0.9% 10 Ml Flush Syringe IV PRN PRN LINE FLUSH Tramadol HCl 50 mg 08/24/20 22:23 09/09/20 01:47 Tramadol 50 Mg Tab PO 50 mg Q6HR PRN Administration Pain, Moderate (4-6) Nutrition/Malnutrition Assess - Dietary Evaluation Nutrition/Malnutrition Findings: Nutrition Notes Start: 08/25/20 08:25 Freq: Status: Active Protocol: Document 09/08/20 11:02 (Rec: 09/08/20 11:06 [email or web address]) Nutrition Notes Initial or Follow up Reassessment Current Diagnosis COPD,Hypertension,Respiratory Failure Other Pertinent Diagnosis HIV Current Diet Cardiac, consistent CHO Labs/Tests Na 146 BG 120 Pertinent Medications Remeron Height 5 ft 5 in Weight 50.4 kg [place] Body Weight (kg) 61.81 BMI 18.4 Weight change and time frame 21% wt loss in 2 weeks Weight Status Underweight Subjective/Other Information Pt drinking 2 Ensure Clears daily. Pt eating 10% of meals. Pt continues to lose weight. Encouraged pt to eat more of breakfast. Percent of energy/protein needs met: 34%/26% Burn Absent Trauma Absent Current % PO Negligible Minimum of two criteria Yes Energy Intake (non-severe) <75% Estimated Energy Requirement >7 days Interpretation of Weight Loss (severe) >5% in 1 month #2 Nutrition Diagnosis Malnutrition Diagnosis Progress(for reassessment Continues documentation) #1 Nutrition Diagnosis Inadequate oral intake Diagnosis Progress(for reassessment Continues documentation) Is patient on ventilator? No Is Patient Ambulatory and/or Out of Bed No REE-([place] Jeor-confined to bed) 1464.754 Calculation Used for Recommendations [place] or Additional Notes Protein: (1.2-1.5g/kg) 62-77g Fluid: 1 ml/kcal Nutrition Intervention Change Diet Order: Continue Add Supplement/Snack (indicate name/kcal Ensure Clear QID /protein ) Provides kCal: 960 Provides Protein (gm) 32 Goal #1 Meet at least 75% of protein and energy needs via PO and ONS intakes Goal #2 Weight gain/maintenance Anticipated Discharge Needs: Cardiac Follow-Up By: 09/11/20 Additional Comments FU for intakes and ONS tolerance
[2020-09-11] MEDS: FE FUMARATE/FA/MV, MIN COMB#15 CAP (HEMOCYTE PLUS) PO SCH (09:09)
[2020-09-11] MEDS: CALCIUM CARBONATE 500 MG TAB CHEW PO SCH ×3 (09:09→21:50)
[2020-09-11] MEDS: POLYETHYLENE GLYCOL 3350 17 GM POWDER PO SCH (09:09)
[2020-09-11] MEDS: ASPIRIN EC 81 MG TAB PO SCH (09:09)
[2020-09-11] MEDS: oxyCODONE /ACETAMINOPHEN 5-325MG TAB PO PRN ×2 (09:12→23:09)
[2020-09-11] MEDS: PANTOPRAZOLE 40 MG TAB PO SCH (09:12)
--- NOTE | 2020-09-11 14:01 | Progress Note ---
Assessment and Plan 64-year-old male with past medical history of COPD, hypertension, Diabetes,asthma PE was brought to the emergency room because of shortness of breath since this morning. Patient had an IV started by EMS and was given IV mag, Solu-Medrol and an albuterol treatment. EMS states that the patient states his symptoms are worsening. Patient states 5 breathing treatment just prior to arrival and did not work. Shortness of breath better with rest and worse with exertion. Patient states he has a long history of COPD and asthma. Patient states he had multiple visits to the ER for this. Patient denies chest pain. Patient denies fever and chills. Patient complains of dry cough Patient has history of smoking 1 pack x 40 years. Says stopped smoking 2 months ago. History of using Cocaine. Denies alcohol abuse. Says worked in [employer] field before he disabled. Patient and has two children.No Known drug allergies Patient awake on 5 litres O2. O2 saturation 99%. Pt still has mild increased work of breathing at rest. Patient afebrile and has no leukocytosis. Chest xray done 08/24/20 reported There is hyperinflation the lungs. No focal infiltrate is seen. Calcified granulomata are noted in the upper lung zones bilaterally. No pneumothorax. Patient is on Brovanna/Budesonide aerosol treatments, S/C Heparin and Protonix, and prednisone. - Patient Problems (1) Acute respiratory failure with hypoxia Current Visit: No Status: Acute Plan to address problem: O2 5 litres via nasal canula. Brovanna/Budesonide aerosol treatments. Albuterol/atrovent aerosol treatments as needed. S/C Heparin. Protonix, and prednisone. (2) COPD exacerbation Current Visit: No Status: Acute Plan to address problem: O2 5 litres via nasal canula. Brovanna/Budesonide aerosol treatments. Albuterol/atrovent aerosol treatments as needed. S/C Heparine. Protonix, and prednisone. PFTs as out patient. (3) ANGELIC (acute kidney injury) Current Visit: No Status: Acute Plan to address problem: Management as per nephrology. (4) GERD (gastroesophageal reflux disease) Current Visit: No Status: Acute Plan to address problem: Patient is on Protonix. (5) HIV (human immunodeficiency virus infection) Current Visit: No Status: Acute Qualifiers: Plan to address problem: Management as per infectious disease consultants. (6) Hypertension Current Visit: No Status: Acute Plan to address problem: Management as per primary care. (7) Cocaine use Current Visit: No Status: Chronic Plan to address problem: Counseled do not use any illegal drugs. (8) Tobacco use Current Visit: No Status: Chronic Plan to address problem: Counseled continue stop smoking. Subjective Date of service: 09/11/20 Principal diagnosis: Ac hypoxemic resp failure; AE-COPD; ANGELIC; HIV +ve; HTN; Cocaine Use Interval history: 64-year-old male with past medical history of COPD, hypertension, Diabete s,asthma PE was brought to the emergency room because of shortness of breath since this morning. Patient had an IV started by EMS and was given IV mag, Solu-Medrol and an albuterol treatment. EMS states that the patient states his symptoms are worsening. Patient states 5 breathing treatment just prior to arrival and did not work. Shortness of breath better with rest and worse with exertion. Patient states he has a long history of COPD and asthma. Patient states he had multiple visits to the ER for this. Patient denies chest pain. Patient denies fever and chills. Patient complains of dry cough Patient has history of smoking 1 pack x 40 years. Says stopped smoking 2 months ago. History of using Cocaine. Denies alcohol abuse. 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 Patient and has two children.No Known drug allergies Patient awake on 5 litres O2. O2 saturation 99%. Pt still has mild increased work of breathing at rest. Patient afebrile and has no leukocytosis. Chest xray done 08/24/20 reported There is hyperinflation the lungs. No focal infiltrate is seen. Calcified granulomata are noted in the upper lung zones bilaterally. No pneumothorax. Patient is on Brovanna/Budesonide aerosol treatments, S/C Heparin and Protonix, and prednisone. Objective Vital Signs - 12hr 09/11/20 09/11/20 09/11/20 02:19 03:31 04:30 Temperature 98.6 F Pulse Rate 78 69 Pulse Rate [ 84 Bilateral] Respiratory 18 Rate Respiratory 18 Rate [Bilateral ] Blood Pressure 103/63 O2 Sat by Pulse 100 Oximetry 09/11/20 09/11/20 09/11/20 07:33 07:48 12:14 Temperature 98.6 F 97.8 F Pulse Rate 72 67 Pulse Rate [ Bilateral] Respiratory 19 19 Rate Respiratory Rate [Bilateral ] Blood Pressure 104/53 94/49 O2 Sat by Pulse 100 89 99 Oximetry Constitutional: no acute distress, alert, other (mildly increased work of breathing at rest) Eyes: non-icteric ENT: oropharynx moist Neck: supple, no JVD Effort: mildly labored Ascultation: Bilateral: diminished breath sounds, wheezes (faint; end expiratory), rhonchi, other (Prolonged expiratory phase.) Percussion: Bilateral: not dull Cardiovascular: regular rate and rhythm Gastrointestinal: normoactive bowel sounds, soft, non-tender, non-distended Integumentary: normal Extremities: no cyanosis, no edema, pulses normal, no ischemia or petechiae Neurologic: normal mental status, non-focal exam, pupils equal and round, motor strength normal and Psychiatric: mood appropriate, affect normal CBC and BMP: 09/05/20 04:56 09/11/20 04:07 ABG, PT/INR, D-dimer: ABG ABG pH 7.316 (7.320-7.450) L 08/28/20 11:00 POC ABG pCO2 68.0 mmHg (32.0-48.0) H 08/28/20 11:00 POC ABG pO2 75.4 mmHg (83-108) L 08/28/20 11:00 POC ABG HCO3 33.9 08/28/20 11:00 ABG O2 Saturation 93.6 (0-100) 08/28/20 11:00 Abnormal lab findings: Abnormal Labs 08/24/20 08/24/20 08/25/20 19:29 19:29 07:00 WBC RBC 3.36 L Hgb 9.7 L Hct 28.5 L MCH MCHC RDW 20.6 H Seg Neuts % (Manual) 97.0 H Lymphocytes % (Manual) 1.0 L Seg Neutrophils # Man 10.2 H Abs Lymphs (Manual) Lymphocytes # (Manual) 0.1 L ABG pH POC ABG pCO2 POC ABG pO2 ABG Hemoglobin ABG Oxyhemoglobin ABG Glucose Sodium Potassium 3.3 L Chloride Carbon Dioxide BUN Glucose 121 H POC Glucose 211 H Calcium 7.6 L TIBC Alkaline Phosphatase 154 H Albumin 3.4 L Arterial Blood Glucose Arterial Blood Ionized Calcium Lymph Enumerat CD4/CD8 % CD3 Cells Absolute CD3 Count % CD4 Cells Absolute CD4 Count Absolute CD8 Count Absolute CD19 Count Crossmatch 08/25/20 08/25/20 08/25/20 07:21 07:21 12:06 WBC RBC 3.13 L Hgb 8.9 L Hct 26.5 L MCH MCHC RDW 20.6 H Seg Neuts % (Manual) 96.0 H Lymphocytes % (Manual) 3.0 L Seg Neutrophils # Man Abs Lymphs (Manual) Lymphocytes # (Manual) 0.2 L ABG pH POC ABG pCO2 POC ABG pO2 ABG Hemoglobin ABG Oxyhemoglobin ABG Glucose Sodium Potassium Chloride Carbon Dioxide 31 H BUN Glucose 208 H POC Glucose 162 H Calcium 7.4 L TIBC Alkaline Phosphatase Albumin Arterial Blood Glucose Arterial Blood Ionized Calcium Lymph Enumerat CD4/CD8 % CD3 Cells Absolute CD3 Count % CD4 Cells Absolute CD4 Count Absolute CD8 Count Absolute CD19 Count Crossmatch 08/25/20 08/25/20 08/26/20 17:01 21:52 05:09 WBC 14.9 H RBC 3.11 L Hgb 8.9 L Hct 26.7 L MCH MCHC RDW 20.6 H Seg Neuts % (Manual) Lymphocytes % (Manual) Seg Neutrophils # Man Abs Lymphs (Manual) Lymphocytes # (Manual) ABG pH POC ABG pCO2 POC ABG pO2 ABG Hemoglobin ABG Oxyhemoglobin ABG Glucose Sodium Potassium Chloride Carbon Dioxide BUN Glucose POC Glucose 158 H 175 H Calcium TIBC Alkaline Phosphatase Albumin Arterial Blood Glucose Arterial Blood Ionized Calcium Lymph Enumerat CD4/CD8 % CD3 Cells Absolute CD3 Count % CD4 Cells Absolute CD4 Count Absolute CD8 Count Absolute CD19 Count Crossmatch 08/26/20 08/26/20 08/26/20 05:09 07:21 11:21 WBC RBC Hgb Hct MCH MCHC RDW Seg Neuts % (Manual) Lymphocytes % (Manual) Seg Neutrophils # Man Abs Lymphs (Manual) Lymphocytes # (Manual) ABG pH POC ABG pCO2 POC ABG pO2 ABG Hemoglobin ABG Oxyhemoglobin ABG Glucose Sodium Potassium Chloride Carbon Dioxide 31 H BUN 21 H Glucose 183 H POC Glucose 149 H 145 H Calcium 7.0 L TIBC Alkaline Phosphatase Albumin Arterial Blood Glucose Arterial Blood Ionized Calcium Lymph Enumerat CD4/CD8 % CD3 Cells Absolute CD3 Count % CD4 Cells Absolute CD4 Count Absolute CD8 Count Absolute CD19 Count Crossmatch 08/26/20 08/26/20 08/27/20 16:49 21:19 04:41 WBC 11.5 H RBC 2.93 L Hgb 8.0 L Hct 25.2 L MCH 27 L MCHC RDW 21.0 H Seg Neuts % (Manual) Lymphocytes % (Manual) Seg Neutrophils # Man Abs Lymphs (Manual) Lymphocytes # (Manual) ABG pH POC ABG pCO2 POC ABG pO2 ABG Hemoglobin ABG Oxyhemoglobin ABG Glucose Sodium Potassium Chloride Carbon Dioxide BUN Glucose POC Glucose 177 H 144 H Calcium TIBC Alkaline Phosphatase Albumin Arterial Blood Glucose Arterial Blood Ionized Calcium Lymph Enumerat CD4/CD8 % CD3 Cells Absolute CD3 Count % CD4 Cells Absolute CD4 Count Absolute CD8 Count Absolute CD19 Count Crossmatch 08/27/20 08/27/20 08/27/20 04:41 07:25 07:30 WBC RBC Hgb Hct MCH MCHC RDW Seg Neuts % (Manual) Lymphocytes % (Manual) Seg Neutrophils # Man Abs Lymphs (Manual) Lymphocytes # (Manual) ABG pH POC ABG pCO2 POC ABG pO2 ABG Hemoglobin ABG Oxyhemoglobin ABG Glucose Sodium Potassium Chloride Carbon Dioxide 35 H BUN 24 H Glucose 173 H POC Glucose 153 H 143 H Calcium 7.3 L TIBC Alkaline Phosphatase Albumin Arterial Blood Glucose Arterial Blood Ionized Calcium Lymph Enumerat CD4/CD8 % CD3 Cells Absolute CD3 Count % CD4 Cells Absolute CD4 Count Absolute CD8 Count Absolute CD19 Count Crossmatch 08/27/20 08/27/20 08/27/20 11:27 15:49 21:17 WBC RBC Hgb Hct MCH MCHC RDW Seg Neuts % (Manual) Lymphocytes % (Manual) Seg Neutrophils # Man Abs Lymphs (Manual) Lymphocytes # (Manual) ABG pH POC ABG pCO2 POC ABG pO2 ABG Hemoglobin ABG Oxyhemoglobin ABG Glucose Sodium Potassium Chloride Carbon Dioxide BUN Glucose POC Glucose 236 H 184 H 144 H Calcium TIBC Alkaline Phosphatase Albumin Arterial Blood Glucose Arterial Blood Ionized Calcium Lymph Enumerat CD4/CD8 % CD3 Cells Absolute CD3 Count % CD4 Cells Absolute CD4 Count Absolute CD8 Count Absolute CD19 Count Crossmatch 08/28/20 08/28/20 08/28/20 05:55 05:55 07:25 WBC RBC 2.58 L Hgb 7.6 L Hct 22.1 L MCH MCHC 35 H RDW 20.3 H Seg Neuts % (Manual) Lymphocytes % (Manual) Seg Neutrophils # Man Abs Lymphs (Manual) Lymphocytes # (Manual) ABG pH POC ABG pCO2 POC ABG pO2 ABG Hemoglobin ABG Oxyhemoglobin ABG Glucose Sodium Potassium 3.5 L Chloride Carbon Dioxide BUN 33 H Glucose 183 H POC Glucose 164 H Calcium 6.8 L TIBC Alkaline Phosphatase Albumin Arterial Blood Glucose Arterial Blood Ionized Calcium Lymph Enumerat CD4/CD8 % CD3 Cells Absolute CD3 Count % CD4 Cells Absolute CD4 Count Absolute CD8 Count Absolute CD19 Count Crossmatch 08/28/20 08/28/20 08/28/20 11:00 12:06 15:28 WBC RBC Hgb Hct MCH MCHC RDW Seg Neuts % (Manual) Lymphocytes % (Manual) Seg Neutrophils # Man Abs Lymphs (Manual) Lymphocytes # (Manual) ABG pH 7.316 L POC ABG pCO2 68.0 H POC ABG pO2 75.4 L ABG Hemoglobin 8.3 L ABG Oxyhemoglobin 92.5 L ABG Glucose 302 H Sodium Potassium Chloride Carbon Dioxide BUN Glucose POC Glucose 233 H 146 H Calcium TIBC Alkaline Phosphatase Albumin Arterial Blood Glucose 302 H Arterial Blood Ionized Calcium 3.8 L Lymph Enumerat CD4/CD8 % CD3 Cells Absolute CD3 Count % CD4 Cells Absolute CD4 Count Absolute CD8 Count Absolute CD19 Count Crossmatch 08/28/20 08/29/20 08/29/20 21:34 07:26 12:05 WBC RBC Hgb Hct MCH MCHC RDW Seg Neuts % (Manual) Lymphocytes % (Manual) Seg Neutrophils # Man Abs Lymphs (Manual) Lymphocytes # (Manual) ABG pH POC ABG pCO2 POC ABG pO2 ABG Hemoglobin ABG Oxyhemoglobin ABG Glucose Sodium Potassium Chloride Carbon Dioxide BUN Glucose POC Glucose 201 H 167 H 253 H Calcium TIBC Alkaline Phosphatase Albumin Arterial Blood Glucose Arterial Blood Ionized Calcium Lymph Enumerat CD4/CD8 % CD3 Cells Absolute CD3 Count % CD4 Cells Absolute CD4 Count Absolute CD8 Count Absolute CD19 Count Crossmatch 08/29/20 08/29/20 08/30/20 16:32 21:56 07:53 WBC RBC Hgb Hct MCH MCHC RDW Seg Neuts % (Manual) Lymphocytes % (Manual) Seg Neutrophils # Man Abs Lymphs (Manual) Lymphocytes # (Manual) ABG pH POC ABG pCO2 POC ABG pO2 ABG Hemoglobin ABG Oxyhemoglobin ABG Glucose Sodium Potassium Chloride Carbon Dioxide BUN Glucose POC Glucose 128 H 220 H 286 H Calcium TIBC Alkaline Phosphatase Albumin Arterial Blood Glucose Arterial Blood Ionized Calcium Lymph Enumerat CD4/CD8 % CD3 Cells Absolute CD3 Count % CD4 Cells Absolute CD4 Count Absolute CD8 Count Absolute CD19 Count Crossmatch 08/30/20 08/30/20 08/30/20 11:29 17:32 22:03 WBC RBC Hgb Hct MCH MCHC RDW Seg Neuts % (Manual) Lymphocytes % (Manual) Seg Neutrophils # Man Abs Lymphs (Manual) Lymphocytes # (Manual) ABG pH POC ABG pCO2 POC ABG pO2 ABG Hemoglobin ABG Oxyhemoglobin ABG Glucose Sodium Potassium Chloride Carbon Dioxide BUN Glucose POC Glucose 299 H 260 H 196 H Calcium TIBC Alkaline Phosphatase Albumin Arterial Blood Glucose Arterial Blood Ionized Calcium Lymph Enumerat CD4/CD8 % CD3 Cells Absolute CD3 Count % CD4 Cells Absolute CD4 Count Absolute CD8 Count Absolute CD19 Count Crossmatch 08/31/20 08/31/20 08/31/20 07:41 11:26 16:19 WBC RBC Hgb Hct MCH MCHC RDW Seg Neuts % (Manual) Lymphocytes % (Manual) Seg Neutrophils # Man Abs Lymphs (Manual) Lymphocytes # (Manual) ABG pH POC ABG pCO2 POC ABG pO2 ABG Hemoglobin ABG Oxyhemoglobin ABG Glucose Sodium Potassium Chloride Carbon Dioxide BUN Glucose POC Glucose 166 H 269 H 265 H Calcium TIBC Alkaline Phosphatase Albumin Arterial Blood Glucose Arterial Blood Ionized Calcium Lymph Enumerat CD4/CD8 % CD3 Cells Absolute CD3 Count % CD4 Cells Absolute CD4 Count Absolute CD8 Count Absolute CD19 Count Crossmatch 08/31/20 09/01/20 09/01/20 20:44 07:40 11:39 WBC RBC Hgb Hct MCH MCHC RDW Seg Neuts % (Manual) Lymphocytes % (Manual) Seg Neutrophils # Man Abs Lymphs (Manual) Lymphocytes # (Manual) ABG pH POC ABG pCO2 POC ABG pO2 ABG Hemoglobin ABG Oxyhemoglobin ABG Glucose Sodium Potassium Chloride Carbon Dioxide BUN Glucose POC Glucose 243 H 272 H 320 H Calcium TIBC Alkaline Phosphatase Albumin Arterial Blood Glucose Arterial Blood Ionized Calcium Lymph Enumerat CD4/CD8 % CD3 Cells Absolute CD3 Count % CD4 Cells Absolute CD4 Count Absolute CD8 Count Absolute CD19 Count Crossmatch 09/01/20 09/01/20 09/02/20 16:16 21:59 08:32 WBC RBC Hgb Hct MCH MCHC RDW Seg Neuts % (Manual) Lymphocytes % (Manual) Seg Neutrophils # Man Abs Lymphs (Manual) Lymphocytes # (Manual) ABG pH POC ABG pCO2 POC ABG pO2 ABG Hemoglobin ABG Oxyhemoglobin ABG Glucose Sodium Potassium Chloride Carbon Dioxide BUN Glucose POC Glucose 319 H 157 H 195 H Calcium TIBC Alkaline Phosphatase Albumin Arterial Blood Glucose Arterial Blood Ionized Calcium Lymph Enumerat CD4/CD8 % CD3 Cells Absolute CD3 Count % CD4 Cells Absolute CD4 Count Absolute CD8 Count Absolute CD19 Count Crossmatch 09/02/20 09/02/20 09/03/20 11:44 20:09 05:02 WBC RBC 2.25 L Hgb 6.5 L Hct 19.7 L* MCH MCHC RDW 21.3 H Seg Neuts % (Manual) Lymphocytes % (Manual) Seg Neutrophils # Man Abs Lymphs (Manual) Lymphocytes # (Manual) ABG pH POC ABG pCO2 POC ABG pO2 ABG Hemoglobin ABG Oxyhemoglobin ABG Glucose Sodium Potassium Chloride Carbon Dioxide BUN Glucose POC Glucose 167 H 214 H Calcium TIBC Alkaline Phosphatase Albumin Arterial Blood Glucose Arterial Blood Ionized Calcium Lymph Enumerat CD4/CD8 % CD3 Cells Absolute CD3 Count % CD4 Cells Absolute CD4 Count Absolute CD8 Count Absolute CD19 Count Crossmatch 09/03/20 09/03/20 09/03/20 05:02 07:35 09:56 WBC RBC Hgb Hct MCH MCHC RDW Seg Neuts % (Manual) Lymphocytes % (Manual) Seg Neutrophils # Man Abs Lymphs (Manual) Lymphocytes # (Manual) ABG pH POC ABG pCO2 POC ABG pO2 ABG Hemoglobin ABG Oxyhemoglobin ABG Glucose Sodium 149 H Potassium 3.3 L Chloride Carbon Dioxide 38 H BUN 30 H Glucose 212 H POC Glucose 207 H Calcium 6.7 L TIBC Alkaline Phosphatase Albumin Arterial Blood Glucose Arterial Blood Ionized Calcium Lymph Enumerat CD4/CD8 % CD3 Cells Absolute CD3 Count % CD4 Cells Absolute CD4 Count Absolute CD8 Count Absolute CD19 Count Crossmatch See Detail 09/03/20 09/03/20 09/04/20 12:05 16:04 05:53 WBC 14.8 H RBC 2.99 L Hgb 8.6 L Hct 26.4 L D MCH MCHC RDW 19.0 H Seg Neuts % (Manual) Lymphocytes % (Manual) Seg Neutrophils # Man Abs Lymphs (Manual) Lymphocytes # (Manual) ABG pH POC ABG pCO2 POC ABG pO2 ABG Hemoglobin ABG Oxyhemoglobin ABG Glucose Sodium Potassium Chloride Carbon Dioxide BUN Glucose POC Glucose 193 H 174 H Calcium TIBC Alkaline Phosphatase Albumin Arterial Blood Glucose Arterial Blood Ionized Calcium Lymph Enumerat CD4/CD8 % CD3 Cells Absolute CD3 Count % CD4 Cells Absolute CD4 Count Absolute CD8 Count Absolute CD19 Count Crossmatch 09/04/20 09/04/20 09/04/20 05:53 05:53 08:33 WBC RBC Hgb Hct MCH MCHC RDW Seg Neuts % (Manual) Lymphocytes % (Manual) Seg Neutrophils # Man Abs Lymphs (Manual) 98 L Lymphocytes # (Manual) ABG pH POC ABG pCO2 POC ABG pO2 ABG Hemoglobin ABG Oxyhemoglobin ABG Glucose Sodium 149 H Potassium Chloride Carbon Dioxide 39 H BUN 28 H Glucose 175 H POC Glucose 222 H Calcium 6.9 L TIBC 214 L Alkaline Phosphatase Albumin Arterial Blood Glucose Arterial Blood Ionized Calcium Lymph Enumerat CD4/CD8 0.68 L % CD3 Cells 51 L Absolute CD3 Count 50 L % CD4 Cells 20 L Absolute CD4 Count 20 L Absolute CD8 Count 29 L Absolute CD19 Count 17 L Crossmatch 09/04/20 09/04/20 09/05/20 11:21 15:42 04:56 WBC RBC 2.88 L Hgb 8.6 L Hct 25.3 L MCH MCHC RDW 19.6 H Seg Neuts % (Manual) Lymphocytes % (Manual) Seg Neutrophils # Man Abs Lymphs (Manual) Lymphocytes # (Manual) ABG pH POC ABG pCO2 POC ABG pO2 ABG Hemoglobin ABG Oxyhemoglobin ABG Glucose Sodium Potassium Chloride Carbon Dioxide BUN Glucose POC Glucose 253 H 240 H Calcium TIBC Alkaline Phosphatase Albumin Arterial Blood Glucose Arterial Blood Ionized Calcium Lymph Enumerat CD4/CD8 % CD3 Cells Absolute CD3 Count % CD4 Cells Absolute CD4 Count Absolute CD8 Count Absolute CD19 Count Crossmatch 09/05/20 09/05/20 09/05/20 04:56 07:31 12:01 WBC RBC Hgb Hct MCH MCHC RDW Seg Neuts % (Manual) Lymphocytes % (Manual) Seg Neutrophils # Man Abs Lymphs (Manual) Lymphocytes # (Manual) ABG pH POC ABG pCO2 POC ABG pO2 ABG Hemoglobin ABG Oxyhemoglobin ABG Glucose Sodium 149 H Potassium 3.1 L Chloride Carbon Dioxide 48 H* D BUN 24 H Glucose 142 H POC Glucose 131 H 124 H Calcium 6.5 L TIBC Alkaline Phosphatase Albumin Arterial Blood Glucose Arterial Blood Ionized Calcium Lymph Enumerat CD4/CD8 % CD3 Cells Absolute CD3 Count % CD4 Cells Absolute CD4 Count Absolute CD8 Count Absolute CD19 Count Crossmatch 09/05/20 09/05/20 09/06/20 16:52 20:19 04:26 WBC RBC Hgb Hct MCH MCHC RDW Seg Neuts % (Manual) Lymphocytes % (Manual) Seg Neutrophils # Man Abs Lymphs (Manual) Lymphocytes # (Manual) ABG pH POC ABG pCO2 POC ABG pO2 ABG Hemoglobin ABG Oxyhemoglobin ABG Glucose Sodium 151 H Potassium 3.3 L Chloride Carbon Dioxide 44 H* BUN 24 H Glucose POC Glucose 168 H 130 H Calcium 5.8 L* TIBC Alkaline Phosphatase Albumin Arterial Blood Glucose Arterial Blood Ionized Calcium Lymph Enumerat CD4/CD8 % CD3 Cells Absolute CD3 Count % CD4 Cells Absolute CD4 Count Absolute CD8 Count Absolute CD19 Count Crossmatch 09/06/20 09/06/20 09/06/20 11:51 15:19 20:20 WBC RBC Hgb Hct MCH MCHC RDW Seg Neuts % (Manual) Lymphocytes % (Manual) Seg Neutrophils # Man Abs Lymphs (Manual) Lymphocytes # (Manual) ABG pH POC ABG pCO2 POC ABG pO2 ABG Hemoglobin ABG Oxyhemoglobin ABG Glucose Sodium Potassium Chloride Carbon Dioxide BUN Glucose POC Glucose 150 H 113 H 138 H Calcium TIBC Alkaline Phosphatase Albumin Arterial Blood Glucose Arterial Blood Ionized Calcium Lymph Enumerat CD4/CD8 % CD3 Cells Absolute CD3 Count % CD4 Cells Absolute CD4 Count Absolute CD8 Count Absolute CD19 Count Crossmatch 09/07/20 09/07/20 09/07/20 07:41 09:41 11:47 WBC RBC Hgb Hct MCH MCHC RDW Seg Neuts % (Manual) Lymphocytes % (Manual) Seg Neutrophils # Man Abs Lymphs (Manual) Lymphocytes # (Manual) ABG pH POC ABG pCO2 POC ABG pO2 ABG Hemoglobin ABG Oxyhemoglobin ABG Glucose Sodium 146 H Potassium Chloride Carbon Dioxide 43 H* BUN 24 H Glucose 186 H POC Glucose 118 H 198 H Calcium 6.1 L TIBC Alkaline Phosphatase Albumin Arterial Blood Glucose Arterial Blood Ionized Calcium Lymph Enumerat CD4/CD8 % CD3 Cells Absolute CD3 Count % CD4 Cells Absolute CD4 Count Absolute CD8 Count Absolute CD19 Count Crossmatch 09/07/20 09/08/2009/08/21 21:58 05:09 07:55 WBC RBC Hgb Hct MCH MCHC RDW Seg Neuts % (Manual) Lymphocytes % (Manual) Seg Neutrophils # Man Abs Lymphs (Manual) Lymphocytes # (Manual) ABG pH POC ABG pCO2 POC ABG pO2 ABG Hemoglobin ABG Oxyhemoglobin ABG Glucose Sodium 146 H Potassium Chloride Carbon Dioxide 47 H* BUN Glucose 120 H POC Glucose 215 H 110 H Calcium 6.1 L TIBC Alkaline Phosphatase Albumin Arterial Blood Glucose Arterial Blood Ionized Calcium Lymph Enumerat CD4/CD8 % CD3 Cells Absolute CD3 Count % CD4 Cells Absolute CD4 Count Absolute CD8 Count Absolute CD19 Count Crossmatch 09/08/20 09/08/20 09/08/20 11:27 16:46 20:17 WBC RBC Hgb Hct MCH MCHC RDW Seg Neuts % (Manual) Lymphocytes % (Manual) Seg Neutrophils # Man Abs Lymphs (Manual) Lymphocytes # (Manual) ABG pH POC ABG pCO2 POC ABG pO2 ABG Hemoglobin ABG Oxyhemoglobin ABG Glucose Sodium Potassium Chloride Carbon Dioxide BUN Glucose POC Glucose 113 H 139 H 122 H Calcium TIBC Alkaline Phosphatase Albumin Arterial Blood Glucose Arterial Blood Ionized Calcium Lymph Enumerat CD4/CD8 % CD3 Cells Absolute CD3 Count % CD4 Cells Absolute CD4 Count Absolute CD8 Count Absolute CD19 Count Crossmatch 09/09/20 09/09/20 09/09/20 08:08 11:28 16:22 WBC RBC Hgb Hct MCH MCHC RDW Seg Neuts % (Manual) Lymphocytes % (Manual) Seg Neutrophils # Man Abs Lymphs (Manual) Lymphocytes # (Manual) ABG pH POC ABG pCO2 POC ABG pO2 ABG Hemoglobin ABG Oxyhemoglobin ABG Glucose Sodium Potassium Chloride Carbon Dioxide BUN Glucose POC Glucose 107 H 113 H 108 H Calcium TIBC Alkaline Phosphatase Albumin Arterial Blood Glucose Arterial Blood Ionized Calcium Lymph Enumerat CD4/CD8 % CD3 Cells Absolute CD3 Count % CD4 Cells Absolute CD4 Count Absolute CD8 Count Absolute CD19 Count Crossmatch 09/10/20 09/10/20 09/10/20 11:55 16:10 20:56 WBC RBC Hgb Hct MCH MCHC RDW Seg Neuts % (Manual) Lymphocytes % (Manual) Seg Neutrophils # Man Abs Lymphs (Manual) Lymphocytes # (Manual) ABG pH POC ABG pCO2 POC ABG pO2 ABG Hemoglobin ABG Oxyhemoglobin ABG Glucose Sodium Potassium Chloride Carbon Dioxide BUN Glucose POC Glucose 156 H 127 H 311 H Calcium TIBC Alkaline Phosphatase Albumin Arterial Blood Glucose Arterial Blood Ionized Calcium Lymph Enumerat CD4/CD8 % CD3 Cells Absolute CD3 Count % CD4 Cells Absolute CD4 Count Absolute CD8 Count Absolute CD19 Count Crossmatch 09/11/20 09/11/20 09/11/20 04:07 07:41 11:19 WBC RBC Hgb Hct MCH MCHC RDW Seg Neuts % (Manual) Lymphocytes % (Manual) Seg Neutrophils # Man Abs Lymphs (Manual) Lymphocytes # (Manual) ABG pH POC ABG pCO2 POC ABG pO2 ABG Hemoglobin ABG Oxyhemoglobin ABG Glucose Sodium Potassium Chloride 95.1 L Carbon Dioxide 48 H* BUN Glucose 135 H POC Glucose 151 H 152 H Calcium 6.1 L TIBC Alkaline Phosphatase Albumin Arterial Blood Glucose Arterial Blood Ionized Calcium Lymph Enumerat CD4/CD8 % CD3 Cells Absolute CD3 Count % CD4 Cells Absolute CD4 Count Absolute CD8 Count Absolute CD19 Count Crossmatch Allied health notes reviewed: nursing
[2020-09-11] MEDS: MONTELUKAST 10 MG TAB PO SCH (21:51)
[2020-09-11] MEDS: MIRTAZAPINE 15 MG TAB PO SCH (21:51)
[2020-09-11] MEDS: ALPRAZolam 0.25 MG TAB PO PRN (21:53)
[2020-09-11] MEDS: INSULIN LISPRO 100 UNIT/ML SUB-Q SCH (21:54)
[2020-09-12] MEDS: IPRATROPIUM 0.02% NEBU 2.5 ML IH SCH ×3 (02:18→18:19)
[2020-09-12] MEDS: LEVALBUTEROL 0.63 MG/3 ML NEBU IH SCH ×3 (02:18→18:19)
[2020-09-12] MEDS: HEPARIN 5,000 UNIT/1 ML VIAL SUB-Q SCH ×3 (06:18→22:25)
[2020-09-12] MEDS: INSULIN NPH/REGULAR 70/30 INJ SUB-Q SCH ×2 (08:26→17:24)
[2020-09-12] MEDS: CALCIUM CARBONATE 500 MG TAB CHEW PO SCH ×3 (08:59→19:56)
[2020-09-12] MEDS: predniSONE 20 MG TAB PO SCH (09:09)
[2020-09-12] MEDS: FE FUMARATE/FA/MV, MIN COMB#15 CAP (HEMOCYTE PLUS) PO SCH (09:09)
[2020-09-12] MEDS: PANTOPRAZOLE 40 MG TAB PO SCH (09:09)
[2020-09-12] MEDS: MULTIVITAMINS ,THERAPEUTIC TAB PO SCH (09:09)
[2020-09-12] MEDS: ASPIRIN EC 81 MG TAB PO SCH (09:09)
[2020-09-12] MEDS: POLYETHYLENE GLYCOL 3350 17 GM POWDER PO SCH (09:10)
[2020-09-12] MEDS: carvediloL 6.25 MG TAB PO SCH ×2 (09:11→22:26)
[2020-09-12] MEDS: BUDESONIDE 0.5 MG/2 ML NEBU IH SCH ×2 (09:22→20:33)
[2020-09-12] MEDS: ARFORMOTEROL 15 MCG/2 ML NEBU IH SCH ×2 (09:22→20:33)
--- NOTE | 2020-09-12 10:49 | Progress Note ---
Assessment and Plan 64-year-old male with past medical history of COPD, hypertension, Diabetes,asthma PE was brought to the emergency room because of shortness of breath since this morning. Patient had an IV started by EMS and was given IV mag, Solu-Medrol and an albuterol treatment. EMS states that the patient states his symptoms are worsening. Patient states 5 breathing treatment just prior to arrival and did not work. Shortness of breath better with rest and worse with exertion. Patient states he has a long history of COPD and asthma. Patient states he had multiple visits to the ER for this. Patient denies chest pain. Patient denies fever and chills. Patient complains of dry cough Patient has history of smoking 1 pack x 40 years. Says stopped smoking 2 months ago. History of using Cocaine. Denies alcohol abuse. Says worked in [employer] field before he disabled. Patient and has two children.No Known drug allergies Patient sleeping on 3 litres O2. O2 saturation 97%. No acute respiratory distress at rest. Patient afebrile and has no leukocytosis. Chest xray done 08/24/20 reported There is hyperinflation the lungs. No focal infiltrate is seen. Calcified granulomata are noted in the upper lung zones bilaterally. No pneum othorax.. Patient is on Brovanna/Budesonide aerosol treatments, S/C Heparin and Protonix, and prednisone. - Patient Problems (1) Acute respiratory failure with hypoxia Current Visit: No Status: Acute Plan to address problem: O2 3 litres via nasal canula. Brovanna/Budesonide aerosol treatments. Albuterol/atrovent aerosol treatments as needed. S/C Heparin. Protonix, and prednisone. (2) COPD exacerbation Current Visit: No Status: Acute Plan to address problem: O2 3 litres via nasal canula. Brovanna/Budesonide aerosol treatments. Albuterol/atrovent aerosol treatments as needed. S/C Heparine. Protonix, and prednisone. PFTs as out patient. (3) ANGELIC (acute kidney injury) Current Visit: No Status: Acute Plan to address problem: Management as per nephrology. (4) GERD (gastroesophageal reflux disease) Current Visit: No Status: Acute Plan to address problem: Patient is on Protonix. (5) HIV (human immunodeficiency virus infection) Current Visit: No Status: Acute Qualifiers: Plan to address problem: Management as per infectious disease consultants. (6) Hypertension Current Visit: No Status: Acute Plan to address problem: Management as per primary care. (7) Cocaine use Current Visit: No Status: Chronic Plan to address problem: Counseled do not use any illegal drugs. (8) Tobacco use Current Visit: No Status: Chronic Plan to address problem: Counseled continue stop smoking. Subjective Date of service: 09/12/20 Principal diagnosis: Ac hypoxemic resp failure; AE-COPD; ANGELIC; HIV +ve; HTN; Cocaine Use Interval history: 64-year-old male with past medical history of COPD, hypertension, Diabetes,asthma PE was brought to the emergency room because of shortness of breath since this morning. Patient had an IV started by EMS and was given IV mag, Solu-Medrol and an albuterol treatment. EMS states that the patient states his symptoms are worsening. Patient states 5 breathing treatment just prior to arrival and did not work. Shortness of breath better with rest and worse with exertion. Patient states he has a long history of COPD and asthma. Patient states he had multiple visits to the ER for this. Patient denies chest pain. Patient denies fever and chills. Patient complains of dry cough Patient has history of smoking 1 pack x 40 years. Says stopped smoking 2 months ago. History of using Cocaine. Denies alcohol abuse. 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 Patient and has two children.No Known drug allergies Patient sleeping on 3 litres O2. O2 saturation 97%. No acute respiratory distress at rest. Patient afebrile and has no leukocytosis. Chest xray done 08/24/20 reported There is hyperinflation the lungs. No focal infiltrate is seen. Calcified granulomata are noted in the upper lung zones bilaterally. No pneumothorax. Patient is on Brovanna/Budesonide aerosol treatments, S/C Heparin and Protonix, and prednisone. Objective Vital Signs - 12hr 09/11/20 09/11/20 09/12/20 22:56 23:09 02:19 Temperature 97.5 F L Pulse Rate 72 Pulse Rate [ 80 Bilateral] Respiratory 18 20 Rate Respiratory 18 Rate [Bilateral ] Blood Pressure 96/43 O2 Sat by Pulse 100 Oximetry 09/12/20 09/12/20 09/12/20 03:14 08:12 09:03 Temperature 97.6 F 97.9 F Pulse Rate 75 86 74 Pulse Rate [ Bilateral] Respiratory 16 19 Rate Respiratory Rate [Bilateral ] Blood Pressure 90/40 80/49 85/45 O2 Sat by Pulse 100 97 93 Oximetry 09/12/20 09/12/20 09/12/20 09:11 09:27 09:30 Temperature Pulse Rate 74 Pulse Rate [ 68 Bilateral] Respiratory Rate Respiratory 16 Rate [Bilateral ] Blood Pressure 85/45 O2 Sat by Pulse 97 Oximetry Constitutional: no acute distress, asleep, other (mildly increased work of breathing at rest) Eyes: non-icteric ENT: oropharynx moist Neck: supple, no JVD Effort: mildly labored Ascultation: Bilateral: diminished breath sounds, wheezes (faint; end expiratory), rhonchi, other (Prolonged expiratory phase.) Percussion: Bilateral: not dull Cardiovascular: regular rate and rhythm Gastrointestinal: normoactive bowel sounds, soft, non-tender, non-distended Integumentary: normal Extremities: no cyanosis, no edema, pulses normal, no ischemia or petechiae Neurologic: normal mental status, non-focal exam, pupils equal and round, motor strength normal and Psychiatric: mood appropriate, affect normal CBC and BMP: 09/05/20 04:56 09/11/20 04:07 ABG, PT/INR, D-dimer: ABG ABG pH 7.316 (7.320-7.450) L 08/28/20 11:00 POC ABG pCO2 68.0 mmHg (32.0-48.0) H 08/28/20 11:00 POC ABG pO2 75.4 mmHg (83-108) L 08/28/20 11:00 POC ABG HCO3 33.9 08/28/20 11:00 ABG O2 Saturation 93.6 (0-100) 08/28/20 11:00 Abnormal lab findings: Abnormal Labs 08/24/20 08/24/20 08/25/20 19:29 19:29 07:00 WBC RBC 3.36 L Hgb 9.7 L Hct 28.5 L MCH MCHC RDW 20.6 H Seg Neuts % (Manual) 97.0 H Lymphocytes % (Manual) 1.0 L Seg Neutrophils # Man 10.2 H Abs Lymphs (Manual) Lymphocytes # (Manual) 0.1 L ABG pH POC ABG pCO2 POC ABG pO2 ABG Hemoglobin ABG Oxyhemoglobin ABG Glucose Sodium Potassium 3.3 L Chloride Carbon Dioxide BUN Glucose 121 H POC Glucose 211 H Calcium 7.6 L TIBC Alkaline Phosphatase 154 H Albumin 3.4 L Arterial Blood Glucose Arterial Blood Ionized Calcium Lymph Enumerat CD4/CD8 % CD3 Cells Absolute CD3 Count % CD4 Cells Absolute CD4 Count Absolute CD8 Count Absolute CD19 Count Crossmatch 08/25/20 08/25/20 08/25/20 07:21 07:21 12:06 WBC RBC 3.13 L Hgb 8.9 L Hct 26.5 L MCH MCHC RDW 20.6 H Seg Neuts % (Manual) 96.0 H Lymphocytes % (Manual) 3.0 L Seg Neutrophils # Man Abs Lymphs (Manual) Lymphocytes # (Manual) 0.2 L ABG pH POC ABG pCO2 POC ABG pO2 ABG Hemoglobin ABG Oxyhemoglobin ABG Glucose Sodium Potassium Chloride Carbon Dioxide 31 H BUN Glucose 208 H POC Glucose 162 H Calcium 7.4 L TIBC Alkaline Phosphatase Albumin Arterial Blood Glucose Arterial Blood Ionized Calcium Lymph Enumerat CD4/CD8 % CD3 Cells Absolute CD3 Count % CD4 Cells Absolute CD4 Count Absolute CD8 Count Absolute CD19 Count Crossmatch 08/25/20 08/25/20 08/26/20 17:01 21:52 05:09 WBC 14.9 H RBC 3.11 L Hgb 8.9 L Hct 26.7 L MCH MCHC RDW 20.6 H Seg Neuts % (Manual) Lymphocytes % (Manual) Seg Neutrophils # Man Abs Lymphs (Manual) Lymphocytes # (Manual) ABG pH POC ABG pCO2 POC ABG pO2 ABG Hemoglobin ABG Oxyhemoglobin ABG Glucose Sodium Potassium Chloride Carbon Dioxide BUN Glucose POC Glucose 158 H 175 H Calcium TIBC Alkaline Phosphatase Albumin Arterial Blood Glucose Arterial Blood Ionized Calcium Lymph Enumerat CD4/CD8 % CD3 Cells Absolute CD3 Count % CD4 Cells Absolute CD4 Count Absolute CD8 Count Absolute CD19 Count Crossmatch 08/26/20 08/26/20 08/26/20 05:09 07:21 11:21 WBC RBC Hgb Hct MCH MCHC RDW Seg Neuts % (Manual) Lymphocytes % (Manual) Seg Neutrophils # Man Abs Lymphs (Manual) Lymphocytes # (Manual) ABG pH POC ABG pCO2 POC ABG pO2 ABG Hemoglobin ABG Oxyhemoglobin ABG Glucose Sodium Potassium Chloride Carbon Dioxide 31 H BUN 21 H Glucose 183 H POC Glucose 149 H 145 H Calcium 7.0 L TIBC Alkaline Phosphatase Albumin Arterial Blood Glucose Arterial Blood Ionized Calcium Lymph Enumerat CD4/CD8 % CD3 Cells Absolute CD3 Count % CD4 Cells Absolute CD4 Count Absolute CD8 Count Absolute CD19 Count Crossmatch 08/26/20 08/26/20 08/27/20 16:49 21:19 04:41 WBC 11.5 H RBC 2.93 L Hgb 8.0 L Hct 25.2 L MCH 27 L MCHC RDW 21.0 H Seg Neuts % (Manual) Lymphocytes % (Manual) Seg Neutrophils # Man Abs Lymphs (Manual) Lymphocytes # (Manual) ABG pH POC ABG pCO2 POC ABG pO2 ABG Hemoglobin ABG Oxyhemoglobin ABG Glucose Sodium Potassium Chloride Carbon Dioxide BUN Glucose POC Glucose 177 H 144 H Calcium TIBC Alkaline Phosphatase Albumin Arterial Blood Glucose Arterial Blood Ionized Calcium Lymph Enumerat CD4/CD8 % CD3 Cells Absolute CD3 Count % CD4 Cells Absolute CD4 Count Absolute CD8 Count Absolute CD19 Count Crossmatch 08/27/20 08/27/20 08/27/20 04:41 07:25 07:30 WBC RBC Hgb Hct MCH MCHC RDW Seg Neuts % (Manual) Lymphocytes % (Manual) Seg Neutrophils # Man Abs Lymphs (Manual) Lymphocytes # (Manual) ABG pH POC ABG pCO2 POC ABG pO2 ABG Hemoglobin ABG Oxyhemoglobin ABG Glucose Sodium Potassium Chloride Carbon Dioxide 35 H BUN 24 H Glucose 173 H POC Glucose 153 H 143 H Calcium 7.3 L TIBC Alkaline Phosphatase Albumin Arterial Blood Glucose Arterial Blood Ionized Calcium Lymph Enumerat CD4/CD8 % CD3 Cells Absolute CD3 Count % CD4 Cells Absolute CD4 Count Absolute CD8 Count Absolute CD19 Count Crossmatch 08/27/20 08/27/20 08/27/20 11:27 15:49 21:17 WBC RBC Hgb Hct MCH MCHC RDW Seg Neuts % (Manual) Lymphocytes % (Manual) Seg Neutrophils # Man Abs Lymphs (Manual) Lymphocytes # (Manual) ABG pH POC ABG pCO2 POC ABG pO2 ABG Hemoglobin ABG Oxyhemoglobin ABG Glucose Sodium Potassium Chloride Carbon Dioxide BUN Glucose POC Glucose 236 H 184 H 144 H Calcium TIBC Alkaline Phosphatase Albumin Arterial Blood Glucose Arterial Blood Ionized Calcium Lymph Enumerat CD4/CD8 % CD3 Cells Absolute CD3 Count % CD4 Cells Absolute CD4 Count Absolute CD8 Count Absolute CD19 Count Crossmatch 08/28/20 08/28/20 08/28/20 05:55 05:55 07:25 WBC RBC 2.58 L Hgb 7.6 L Hct 22.1 L MCH MCHC 35 H RDW 20.3 H Seg Neuts % (Manual) Lymphocytes % (Manual) Seg Neutrophils # Man Abs Lymphs (Manual) Lymphocytes # (Manual) ABG pH POC ABG pCO2 POC ABG pO2 ABG Hemoglobin ABG Oxyhemoglobin ABG Glucose Sodium Potassium 3.5 L Chloride Carbon Dioxide BUN 33 H Glucose 183 H POC Glucose 164 H Calcium 6.8 L TIBC Alkaline Phosphatase Albumin Arterial Blood Glucose Arterial Blood Ionized Calcium Lymph Enumerat CD4/CD8 % CD3 Cells Absolute CD3 Count % CD4 Cells Absolute CD4 Count Absolute CD8 Count Absolute CD19 Count Crossmatch 08/28/20 08/28/20 08/28/20 11:00 12:06 15:28 WBC RBC Hgb Hct MCH MCHC RDW Seg Neuts % (Manual) Lymphocytes % (Manual) Seg Neutrophils # Man Abs Lymphs (Manual) Lymphocytes # (Manual) ABG pH 7.316 L POC ABG pCO2 68.0 H POC ABG pO2 75.4 L ABG Hemoglobin 8.3 L ABG Oxyhemoglobin 92.5 L ABG Glucose 302 H Sodium Potassium Chloride Carbon Dioxide BUN Glucose POC Glucose 233 H 146 H Calcium TIBC Alkaline Phosphatase Albumin Arterial Blood Glucose 302 H Arterial Blood Ionized Calcium 3.8 L Lymph Enumerat CD4/CD8 % CD3 Cells Absolute CD3 Count % CD4 Cells Absolute CD4 Count Absolute CD8 Count Absolute CD19 Count Crossmatch 08/28/20 08/29/20 08/29/20 21:34 07:26 12:05 WBC RBC Hgb Hct MCH MCHC RDW Seg Neuts % (Manual) Lymphocytes % (Manual) Seg Neutrophils # Man Abs Lymphs (Manual) Lymphocytes # (Manual) ABG pH POC ABG pCO2 POC ABG pO2 ABG Hemoglobin ABG Oxyhemoglobin ABG Glucose Sodium Potassium Chloride Carbon Dioxide BUN Glucose POC Glucose 201 H 167 H 253 H Calcium TIBC Alkaline Phosphatase Albumin Arterial Blood Glucose Arterial Blood Ionized Calcium Lymph Enumerat CD4/CD8 % CD3 Cells Absolute CD3 Count % CD4 Cells Absolute CD4 Count Absolute CD8 Count Absolute CD19 Count Crossmatch 08/29/20 08/29/20 08/30/20 16:32 21:56 07:53 WBC RBC Hgb Hct MCH MCHC RDW Seg Neuts % (Manual) Lymphocytes % (Manual) Seg Neutrophils # Man Abs Lymphs (Manual) Lymphocytes # (Manual) ABG pH POC ABG pCO2 POC ABG pO2 ABG Hemoglobin ABG Oxyhemoglobin ABG Glucose Sodium Potassium Chloride Carbon Dioxide BUN Glucose POC Glucose 128 H 220 H 286 H Calcium TIBC Alkaline Phosphatase Albumin Arterial Blood Glucose Arterial Blood Ionized Calcium Lymph Enumerat CD4/CD8 % CD3 Cells Absolute CD3 Count % CD4 Cells Absolute CD4 Count Absolute CD8 Count Absolute CD19 Count Crossmatch 08/30/20 08/30/20 08/30/20 11:29 17:32 22:03 WBC RBC Hgb Hct MCH MCHC RDW Seg Neuts % (Manual) Lymphocytes % (Manual) Seg Neutrophils # Man Abs Lymphs (Manual) Lymphocytes # (Manual) ABG pH POC ABG pCO2 POC ABG pO2 ABG Hemoglobin ABG Oxyhemoglobin ABG Glucose Sodium Potassium Chloride Carbon Dioxide BUN Glucose POC Glucose 299 H 260 H 196 H Calcium TIBC Alkaline Phosphatase Albumin Arterial Blood Glucose Arterial Blood Ionized Calcium Lymph Enumerat CD4/CD8 % CD3 Cells Absolute CD3 Count % CD4 Cells Absolute CD4 Count Absolute CD8 Count Absolute CD19 Count Crossmatch 08/31/20 08/31/20 08/31/20 07:41 11:26 16:19 WBC RBC Hgb Hct MCH MCHC RDW Seg Neuts % (Manual) Lymphocytes % (Manual) Seg Neutrophils # Man Abs Lymphs (Manual) Lymphocytes # (Manual) ABG pH POC ABG pCO2 POC ABG pO2 ABG Hemoglobin ABG Oxyhemoglobin ABG Glucose Sodium Potassium Chloride Carbon Dioxide BUN Glucose POC Glucose 166 H 269 H 265 H Calcium TIBC Alkaline Phosphatase Albumin Arterial Blood Glucose Arterial Blood Ionized Calcium Lymph Enumerat CD4/CD8 % CD3 Cells Absolute CD3 Count % CD4 Cells Absolute CD4 Count Absolute CD8 Count Absolute CD19 Count Crossmatch 08/31/20 09/01/20 09/01/20 20:44 07:40 11:39 WBC RBC Hgb Hct MCH MCHC RDW Seg Neuts % (Manual) Lymphocytes % (Manual) Seg Neutrophils # Man Abs Lymphs (Manual) Lymphocytes # (Manual) ABG pH POC ABG pCO2 POC ABG pO2 ABG Hemoglobin ABG Oxyhemoglobin ABG Glucose Sodium Potassium Chloride Carbon Dioxide BUN Glucose POC Glucose 243 H 272 H 320 H Calcium TIBC Alkaline Phosphatase Albumin Arterial Blood Glucose Arterial Blood Ionized Calcium Lymph Enumerat CD4/CD8 % CD3 Cells Absolute CD3 Count % CD4 Cells Absolute CD4 Count Absolute CD8 Count Absolute CD19 Count Crossmatch 09/01/20 09/01/20 09/02/20 16:16 21:59 08:32 WBC RBC Hgb Hct MCH MCHC RDW Seg Neuts % (Manual) Lymphocytes % (Manual) Seg Neutrophils # Man Abs Lymphs (Manual) Lymphocytes # (Manual) ABG pH POC ABG pCO2 POC ABG pO2 ABG Hemoglobin ABG Oxyhemoglobin ABG Glucose Sodium Potassium Chloride Carbon Dioxide BUN Glucose POC Glucose 319 H 157 H 195 H Calcium TIBC Alkaline Phosphatase Albumin Arterial Blood Glucose Arterial Blood Ionized Calcium Lymph Enumerat CD4/CD8 % CD3 Cells Absolute CD3 Count % CD4 Cells Absolute CD4 Count Absolute CD8 Count Absolute CD19 Count Crossmatch 09/02/20 09/02/20 09/03/20 11:44 20:09 05:02 WBC RBC 2.25 L Hgb 6.5 L Hct 19.7 L* MCH MCHC RDW 21.3 H Seg Neuts % (Manual) Lymphocytes % (Manual) Seg Neutrophils # Man Abs Lymphs (Manual) Lymphocytes # (Manual) ABG pH POC ABG pCO2 POC ABG pO2 ABG Hemoglobin ABG Oxyhemoglobin ABG Glucose Sodium Potassium Chloride Carbon Dioxide BUN Glucose POC Glucose 167 H 214 H Calcium TIBC Alkaline Phosphatase Albumin Arterial Blood Glucose Arterial Blood Ionized Calcium Lymph Enumerat CD4/CD8 % CD3 Cells Absolute CD3 Count % CD4 Cells Absolute CD4 Count Absolute CD8 Count Absolute CD19 Count Crossmatch 09/03/20 09/03/20 09/03/20 05:02 07:35 09:56 WBC RBC Hgb Hct MCH MCHC RDW Seg Neuts % (Manual) Lymphocytes % (Manual) Seg Neutrophils # Man Abs Lymphs (Manual) Lymphocytes # (Manual) ABG pH POC ABG pCO2 POC ABG pO2 ABG Hemoglobin ABG Oxyhemoglobin ABG Glucose Sodium 149 H Potassium 3.3 L Chloride Carbon Dioxide 38 H BUN 30 H Glucose 212 H POC Glucose 207 H Calcium 6.7 L TIBC Alkaline Phosphatase Albumin Arterial Blood Glucose Arterial Blood Ionized Calcium Lymph Enumerat CD4/CD8 % CD3 Cells Absolute CD3 Count % CD4 Cells Absolute CD4 Count Absolute CD8 Count Absolute CD19 Count Crossmatch See Detail 09/03/20 09/03/20 09/04/20 12:05 16:04 05:53 WBC 14.8 H RBC 2.99 L Hgb 8.6 L Hct 26.4 L D MCH MCHC RDW 19.0 H Seg Neuts % (Manual) Lymphocytes % (Manual) Seg Neutrophils # Man Abs Lymphs (Manual) Lymphocytes # (Manual) ABG pH POC ABG pCO2 POC ABG pO2 ABG Hemoglobin ABG Oxyhemoglobin ABG Glucose Sodium Potassium Chloride Carbon Dioxide BUN Glucose POC Glucose 193 H 174 H Calcium TIBC Alkaline Phosphatase Albumin Arterial Blood Glucose Arterial Blood Ionized Calcium Lymph Enumerat CD4/CD8 % CD3 Cells Absolute CD3 Count % CD4 Cells Absolute CD4 Count Absolute CD8 Count Absolute CD19 Count Crossmatch 09/04/20 09/04/20 09/04/20 05:53 05:53 08:33 WBC RBC Hgb Hct MCH MCHC RDW Seg Neuts % (Manual) Lymphocytes % (Manual) Seg Neutrophils # Man Abs Lymphs (Manual) 98 L Lymphocytes # (Manual) ABG pH POC ABG pCO2 POC ABG pO2 ABG Hemoglobin ABG Oxyhemoglobin ABG Glucose Sodium 149 H Potassium Chloride Carbon Dioxide 39 H BUN 28 H Glucose 175 H POC Glucose 222 H Calcium 6.9 L TIBC 214 L Alkaline Phosphatase Albumin Arterial Blood Glucose Arterial Blood Ionized Calcium Lymph Enumerat CD4/CD8 0.68 L % CD3 Cells 51 L Absolute CD3 Count 50 L % CD4 Cells 20 L Absolute CD4 Count 20 L Absolute CD8 Count 29 L Absolute CD19 Count 17 L Crossmatch 09/04/20 09/04/20 09/05/20 11:21 15:42 04:56 WBC RBC 2.88 L Hgb 8.6 L Hct 25.3 L MCH MCHC RDW 19.6 H Seg Neuts % (Manual) Lymphocytes % (Manual) Seg Neutrophils # Man Abs Lymphs (Manual) Lymphocytes # (Manual) ABG pH POC ABG pCO2 POC ABG pO2 ABG Hemoglobin ABG Oxyhemoglobin ABG Glucose Sodium Potassium Chloride Carbon Dioxide BUN Glucose POC Glucose 253 H 240 H Calcium TIBC Alkaline Phosphatase Albumin Arterial Blood Glucose Arterial Blood Ionized Calcium Lymph Enumerat CD4/CD8 % CD3 Cells Absolute CD3 Count % CD4 Cells Absolute CD4 Count Absolute CD8 Count Absolute CD19 Count Crossmatch 09/05/20 09/05/20 09/05/20 04:56 07:31 12:01 WBC RBC Hgb Hct MCH MCHC RDW Seg Neuts % (Manual) Lymphocytes % (Manual) Seg Neutrophils # Man Abs Lymphs (Manual) Lymphocytes # (Manual) ABG pH POC ABG pCO2 POC ABG pO2 ABG Hemoglobin ABG Oxyhemoglobin ABG Glucose Sodium 149 H Potassium 3.1 L Chloride Carbon Dioxide 48 H* D BUN 24 H Glucose 142 H POC Glucose 131 H 124 H Calcium 6.5 L TIBC Alkaline Phosphatase Albumin Arterial Blood Glucose Arterial Blood Ionized Calcium Lymph Enumerat CD4/CD8 % CD3 Cells Absolute CD3 Count % CD4 Cells Absolute CD4 Count Absolute CD8 Count Absolute CD19 Count Crossmatch 09/05/20 09/05/20 09/06/20 16:52 20:19 04:26 WBC RBC Hgb Hct MCH MCHC RDW Seg Neuts % (Manual) Lymphocytes % (Manual) Seg Neutrophils # Man Abs Lymphs (Manual) Lymphocytes # (Manual) ABG pH POC ABG pCO2 POC ABG pO2 ABG Hemoglobin ABG Oxyhemoglobin ABG Glucose Sodium 151 H Potassium 3.3 L Chloride Carbon Dioxide 44 H* BUN 24 H Glucose POC Glucose 168 H 130 H Calcium 5.8 L* TIBC Alkaline Phosphatase Albumin Arterial Blood Glucose Arterial Blood Ionized Calcium Lymph Enumerat CD4/CD8 % CD3 Cells Absolute CD3 Count % CD4 Cells Absolute CD4 Count Absolute CD8 Count Absolute CD19 Count Crossmatch 09/06/20 09/06/20 09/06/20 11:51 15:19 20:20 WBC RBC Hgb Hct MCH MCHC RDW Seg Neuts % (Manual) Lymphocytes % (Manual) Seg Neutrophils # Man Abs Lymphs (Manual) Lymphocytes # (Manual) ABG pH POC ABG pCO2 POC ABG pO2 ABG Hemoglobin ABG Oxyhemoglobin ABG Glucose Sodium Potassium Chloride Carbon Dioxide BUN Glucose POC Glucose 150 H 113 H 138 H Calcium TIBC Alkaline Phosphatase Albumin Arterial Blood Glucose Arterial Blood Ionized Calcium Lymph Enumerat CD4/CD8 % CD3 Cells Absolute CD3 Count % CD4 Cells Absolute CD4 Count Absolute CD8 Count Absolute CD19 Count Crossmatch 09/07/20 09/07/20 09/07/20 07:41 09:41 11:47 WBC RBC Hgb Hct MCH MCHC RDW Seg Neuts % (Manual) Lymphocytes % (Manual) Seg Neutrophils # Man Abs Lymphs (Manual) Lymphocytes # (Manual) ABG pH POC ABG pCO2 POC ABG pO2 ABG Hemoglobin ABG Oxyhemoglobin ABG Glucose Sodium 146 H Potassium Chloride Carbon Dioxide 43 H* BUN 24 H Glucose 186 H POC Glucose 118 H 198 H Calcium 6.1 L TIBC Alkaline Phosphatase Albumin Arterial Blood Glucose Arterial Blood Ionized Calcium Lymph Enumerat CD4/CD8 % CD3 Cells Absolute CD3 Count % CD4 Cells Absolute CD4 Count Absolute CD8 Count Absolute CD19 Count Crossmatch 09/07/20 09/08/20 09/08/20 21:58 05:09 07:55 WBC RBC Hgb Hct MCH MCHC RDW Seg Neuts % (Manual) Lymphocytes % (Manual) Seg Neutrophils # Man Abs Lymphs (Manual) Lymphocytes # (Manual) ABG pH POC ABG pCO2 POC ABG pO2 ABG Hemoglobin ABG Oxyhemoglobin ABG Glucose Sodium 146 H Potassium Chloride Carbon Dioxide 47 H* BUN Glucose 120 H POC Glucose 215 H 110 H Calcium 6.1 L TIBC Alkaline Phosphatase Albumin Arterial Blood Glucose Arterial Blood Ionized Calcium Lymph Enumerat CD4/CD8 % CD3 Cells Absolute CD3 Count % CD4 Cells Absolute CD4 Count Absolute CD8 Count Absolute CD19 Count Crossmatch 09/08/20 09/08/20 09/08/20 11:27 16:46 20:17 WBC RBC Hgb Hct MCH MCHC RDW Seg Neuts % (Manual) Lymphocytes % (Manual) Seg Neutrophils # Man Abs Lymphs (Manual) Lymphocytes # (Manual) ABG pH POC ABG pCO2 POC ABG pO2 ABG Hemoglobin ABG Oxyhemoglobin ABG Glucose Sodium Potassium Chloride Carbon Dioxide BUN Glucose POC Glucose 113 H 139 H 122 H Calcium TIBC Alkaline Phosphatase Albumin Arterial Blood Glucose Arterial Blood Ionized Calcium Lymph Enumerat CD4/CD8 % CD3 Cells Absolute CD3 Count % CD4 Cells Absolute CD4 Count Absolute CD8 Count Absolute CD19 Count Crossmatch 09/09/20 09/09/20 09/09/20 08:08 11:28 16:22 WBC RBC Hgb Hct MCH MCHC RDW Seg Neuts % (Manual) Lymphocytes % (Manual) Seg Neutrophils # Man Abs Lymphs (Manual) Lymphocytes # (Manual) ABG pH POC ABG pCO2 POC ABG pO2 ABG Hemoglobin ABG Oxyhemoglobin ABG Glucose Sodium Potassium Chloride Carbon Dioxide BUN Glucose POC Glucose 107 H 113 H 108 H Calcium TIBC Alkaline Phosphatase Albumin Arterial Blood Glucose Arterial Blood Ionized Calcium Lymph Enumerat CD4/CD8 % CD3 Cells Absolute CD3 Count % CD4 Cells Absolute CD4 Count Absolute CD8 Count Absolute CD19 Count Crossmatch 09/10/20 09/10/20 09/10/20 11:55 16:10 20:56 WBC RBC Hgb Hct MCH MCHC RDW Seg Neuts % (Manual) Lymphocytes % (Manual) Seg Neutrophils # Man Abs Lymphs (Manual) Lymphocytes # (Manual) ABG pH POC ABG pCO2 POC ABG pO2 ABG Hemoglobin ABG Oxyhemoglobin ABG Glucose Sodium Potassium Chloride Carbon Dioxide BUN Glucose POC Glucose 156 H 127 H 311 H Calcium TIBC Alkaline Phosphatase Albumin Arterial Blood Glucose Arterial Blood Ionized Calcium Lymph Enumerat CD4/CD8 % CD3 Cells Absolute CD3 Count % CD4 Cells Absolute CD4 Count Absolute CD8 Count Absolute CD19 Count Crossmatch 09/11/20 09/11/20 09/11/20 04:07 07:41 11:19 WBC RBC Hgb Hct MCH MCHC RDW Seg Neuts % (Manual) Lymphocytes % (Manual) Seg Neutrophils # Man Abs Lymphs (Manual) Lymphocytes # (Manual) ABG pH POC ABG pCO2 POC ABG pO2 ABG Hemoglobin ABG Oxyhemoglobin ABG Glucose Sodium Potassium Chloride 95.1 L Carbon Dioxide 48 H* BUN Glucose 135 H POC Glucose 151 H 152 H Calcium 6.1 L TIBC Alkaline Phosphatase Albumin Arterial Blood Glucose Arterial Blood Ionized Calcium Lymph Enumerat CD4/CD8 % CD3 Cells Absolute CD3 Count % CD4 Cells Absolute CD4 Count Absolute CD8 Count Absolute CD19 Count Crossmatch 09/11/20 09/11/20 09/12/20 16:45 20:22 08:12 WBC RBC Hgb Hct MCH MCHC RDW Seg Neuts % (Manual) Lymphocytes % (Manual) Seg Neutrophils # Man Abs Lymphs (Manual) Lymphocytes # (Manual) ABG pH POC ABG pCO2 POC ABG pO2 ABG Hemoglobin ABG Oxyhemoglobin ABG Glucose Sodium Potassium Chloride Carbon Dioxide BUN Glucose POC Glucose 156 H 220 H 202 H Calcium TIBC Alkaline Phosphatase Albumin Arterial Blood Glucose Arterial Blood Ionized Calcium Lymph Enumerat CD4/CD8 % CD3 Cells Absolute CD3 Count % CD4 Cells Absolute CD4 Count Absolute CD8 Count Absolute CD19 Count Crossmatch Allied health notes reviewed: nursing
--- NOTE | 2020-09-12 11:05 | Progress Note ---
Assessment and Plan Assessment and plan: Patient is requiring 4 L of nasal cannula oxygen today --Paroxysmal atrial fibrillation; Patient is in sinus rhythm today with heart rate in 70s No A. fib last 24 hours Cardiology following Continue beta-blockers, not a candidate for anticoagulation Due to severe anemia requiring blood transfusion --Acute exacerbation of COPD ; Patient is a current smoker Continue nasal cannula oxygen titrate O2 sats to more than 90% --Acute hypoxic respiratory failure ; requiring BiPAP Continue oxygen via nasal cannula 4 L today Titrate O2 sats more than 90%, BiPAP as needed --Leukocytosis- resolved --Hypertension; moderate control Continue current antihypertensives, as needed medications --Normocytic anemia Hemoglobin is down to 8.0 > 7.6 this morning Closely monitor H&H transfuse as needed --Hyperglycemia -likely secondary to steroids HD A1c 5.8, Accu-Chek sliding scale coverage Long-acting insulin if needed --Ongoing tobacco abuse Patient counseled on tobacco cessation Nicotine patch as needed --history of HIV infection for many years Patient follow-up private ID/health department upon discharge --Mild to moderate malnutrition/hypoalbuminemia Nutrition supplements and supportive care --DVT prophylaxis; Heparin subcu/SCDs Physical therapy/Occupational Therapy evaluation and treatment DC planning per case management OT recommended subacute rehab /SNF placement. Awaiting placement, patient is medically stable for discharge SNF needs PT OT updates Brief history: and Daily Hospital course; 08/29; patient requiring BiPAP, severely short of breath, pulmonary following; Wean as tolerated ; requiring intermittent BiPAP especially at night This morning patient is on 4 L of nasal cannula oxygen Patient already has home oxygen at 3 L Pulmonary following 08/31/2020; patient continues to be in shortness of breath Unable to keep his oxygen, confused at times BiPAP as needed, pulmonary following Recommend placement SNF, Check for [facility] PCR PT OT evaluation 09/01/2020; on 4 L of nasal oxygen Awaiting placement Resumed service; 09/05/2020; I checked with monitor room, patient is in sinus heart rate in 70s No A. fib last 24 hours Awaiting subacute rehab placement 09/06/2020; hypokalemia, hypocalcemia Replenished with KCl, calcium gluconate and calcium carbonate Follow electrolytes 09/07/2020; follow today's labs Awaiting placement 09/08/2020; patient is clinically stable for discharge Awaiting subacute rehab placement 09/09/2020; awaiting placement 09/10/2020; no new complaints, stable for discharge Awaiting placement 09/11/2020; pulmonary cleared for discharge Pending placement DC planning per case management 09/12/2020; Pending placement SNF needs updated PT OT evaluations History Interval history: I have seen and examined the patient at the bedside Patient's chart and medications reviewed No new events reported by the nursing staff Patient feels better awaiting placement Vital signs noted Patient is requiring Hospitalist Physical - Constitutional Vitals: Temp Pulse Resp BP Pulse Ox 97.9 F 68 16 85/45 97 09/12/20 08:12 09/12/20 09:27 09/12/20 09:27 09/12/20 09:11 09/12/20 09:30 General appearance: Present: no acute distress, well-nourished - EENT Eyes: Present: PERRL, EOM intact - Neck Neck: Present: supple, normal ROM - Respiratory Respiratory effort: normal Respiratory: bilateral: diminished, negative: rales, rhonchi, wheezing - Cardiovascular Rhythm: regular Heart Sounds: Present: S1 & S2 - Extremities Extremities: no ischemia, No edema - Abdominal General gastrointestinal: soft, non-tender, non-distended, normal bowel sounds - Integumentary Integumentary: Present: clear, warm - Psychiatric Psychiatric: appropriate mood/affect, cooperative, other (Confused at times) - Neurologic Neurologic: moves all extremities HEART Score - HEART Score Troponin: Troponin T < 0.010 ng/mL (0.00-0.029) 09/04/20 05:53 Results - Labs CBC & Chem 7: 09/05/20 04:56 09/11/20 04:07 Labs: Laboratory Last Values WBC 7.7 K/mm3 (4.5-11.0) 09/05/20 04:56 RBC 2.88 M/mm3 (3.65-5.03) L 09/05/20 04:56 Hgb 8.6 gm/dl (11.8-15.2) L 09/05/20 04:56 Hct 25.3 % (35.5-45.6) L 09/05/20 04:56 MCV 88 fl (84-94) 09/05/20 04:56 MCH 30 pg (28-32) 09/05/20 04:56 MCHC 34 % (32-34) 09/05/20 04:56 RDW 19.6 % (13.2-15.2) H 09/05/20 04:56 Plt Count 143 K/mm3 (140-440) 09/05/20 04:56 Add Manual Diff Complete 08/25/20 07:21 Total Counted 100 08/25/20 07:21 Seg Neutrophils % Media Strategist 08/25/20 07:21 Seg Neuts % (Manual) 96.0 % (40.0-70.0) H 08/25/20 07:21 Lymphocytes % (Manual) 3.0 % (13.4-35.0) L 08/25/20 07:21 Monocytes % (Manual) 2.0 % (0.0-7.3) 08/24/20 19:29 Myelocytes % 1.0 % 08/25/20 07:21 Nucleated RBC % Not Reportable 08/25/20 07:21 Seg Neutrophils # Man 4.8 K/mm3 (1.8-7.7) 08/25/20 07:21 Band Neutrophils # 0.0 K/mm3 08/25/20 07:21 Abs Lymphs (Manual) 98 cells/uL (850-3900) L 09/04/20 05:53 Lymphocytes # (Manual) 0.2 K/mm3 (1.2-5.4) L 08/25/20 07:21 Abs React Lymphs (Man) 0.0 K/mm3 08/25/20 07:21 Monocytes # (Manual) 0.0 K/mm3 (0.0-0.8) 08/25/20 07:21 Eosinophils # (Manual) 0.0 K/mm3 (0.0-0.4) 08/25/20 07:21 Basophils # (Manual) 0.0 K/mm3 (0.0-0.1) 08/25/20 07:21 Metamyelocytes # 0.0 K/mm3 08/25/20 07:21 Myelocytes # 0.1 K/mm3 08/25/20 07:21 Promyelocytes # 0.0 K/mm3 08/25/20 07:21 Blast Cells # 0.0 K/mm3 08/25/20 07:21 WBC Morphology Not Reportable 08/25/20 07:21 Hypersegmented Neuts Not Reportable 08/25/20 07:21 Hyposegmented Neuts Not Reportable 08/25/20 07:21 Hypogranular Neuts Not Reportable 08/25/20 07:21 Smudge Cells Not Reportable 08/25/20 07:21 Toxic Granulation Not Reportable 08/25/20 07:21 Toxic Vacuolation Not Reportable 08/25/20 07:21 Dohle Bodies Not Reportable 08/25/20 07:21 Pelger-Huet Anomaly Not Reportable 08/25/20 07:21 Ruma Rods Not Reportable 08/25/20 07:21 Platelet Estimate Consistent w auto 08/25/20 07:21 Clumped Platelets Not Reportable 08/25/20 07:21 Plt Clumps, EDTA Not Reportable 08/25/20 07:21 Large Platelets Not Reportable 08/25/20 07:21 Giant Platelets Not Reportable 08/25/20 07:21 Platelet Satelliting Not Reportable 08/25/20 07:21 Plt Morphology Comment Not Reportable 08/25/20 07:21 RBC Morphology Not Reportable 08/25/20 07:21 Dimorphic RBCs Not Reportable 08/25/20 07:21 Polychromasia Not Reportable 08/25/20 07:21 Hypochromasia 1+ 08/25/20 07:21 Poikilocytosis 1+ 08/25/20 07:21 Anisocytosis 1+ 08/25/20 07:21 Microcytosis Not Reportable 08/25/20 07:21 Macrocytosis Not Reportable 08/25/20 07:21 Spherocytes Not Reportable 08/25/20 07:21 Pappenheimer Bodies Not Reportable 08/25/20 07:21 Sickle Cells Not Reportable 08/25/20 07:21 Target Cells Not Reportable 08/25/20 07:21 Tear Drop Cells Not Reportable 08/25/20 07:21 Ovalocytes 1+ 08/25/20 07:21 Helmet Cells Not Reportable 08/25/20 07:21 [place] Bodies Not Reportable 08/25/20 07:21 [place] Rings Not Reportable 08/25/20 07:21 Don Cells Not Reportable 08/25/20 07:21 Bite Cells Not Reportable 08/25/20 07:21 Crenated Cell Not Reportable 08/25/20 07:21 Elliptocytes 2+ 08/25/20 07:21 Acanthocytes (Spur) 1+ 08/25/20 07:21 Rouleaux Not Reportable 08/25/20 07:21 Hemoglobin C Crystals Not Reportable 08/25/20 07:21 Schistocytes Not Reportable 08/25/20 07:21 Malaria parasites Not Reportable 08/25/20 07:21 Ric Bodies Not Reportable 08/25/20 07:21 Hem Pathologist Commnt No 08/25/20 07:21 ABG pH 7.316 (7.320-7.450) L 08/28/20 11:00 POC ABG pCO2 68.0 mmHg (32.0-48.0) H 08/28/20 11:00 POC ABG pO2 75.4 mmHg (83-108) L 08/28/20 11:00 POC ABG HCO3 33.9 08/28/20 11:00 ABG O2 Saturation 93.6 (0-100) 08/28/20 11:00 POC ABG Base Excess 6.6 08/28/20 11:00 ABG Hemoglobin 8.3 (12.0-17.5) L 08/28/20 11:00 ABG Oxyhemoglobin 92.5 (94-98) L 08/28/20 11:00 ABG Methemoglobin 0.3 (0.0-1.5) 08/28/20 11:00 ABG Sodium 143.2 mmol/L (136.0-145.0) 08/28/20 11:00 ABG Potassium 3.8 mmol/L (3.40-4.50) 08/28/20 11:00 ABG Chloride 103.0 mmol/L (98-107) 08/28/20 11:00 ABG Glucose 302 mg/dL (65-95) H 08/28/20 11:00 Carboxyhemoglobin 0.9 (0.5-1.5) 08/28/20 11:00 FiO2 % 40.0 08/28/20 11:00 Sodium 145 mmol/L (137-145) 09/11/20 04:07 Potassium 3.6 mmol/L (3.6-5.0) 09/11/20 04:07 Chloride 95.1 mmol/L (98-107) L 09/11/20 04:07 Carbon Dioxide 48 mmol/L (22-30) H* 09/11/20 04:07 Anion Gap 6 mmol/L 09/11/20 04:07 BUN 12 mg/dL (9-20) 09/11/20 04:07 Creatinine 0.8 mg/dL (0.8-1.3) 09/11/20 04:07 Estimated GFR > 60 ml/min 09/11/20 04:07 BUN/Creatinine Ratio 15 % 09/11/20 04:07 Glucose 135 mg/dL (75-100) H 09/11/20 04:07 POC Glucose 62 mg/dL (70-105) L 09/12/20 10:52 Hemoglobin A1c 5.8 % (4-6) 08/25/20 07:27 Calcium 6.1 mg/dL (8.4-10.2) L 09/11/20 04:07 Magnesium 1.70 mg/dL (1.7-2.3) 09/11/20 04:07 Iron 58 ug/dL (49-181) 09/04/20 05:53 TIBC 214 mcg/dL (250-450) L 09/04/20 05:53 Total Bilirubin 0.40 mg/dL (0.1-1.2) 08/24/20 19:29 AST 21 units/L (5-40) 08/24/20 19:29 ALT 36 units/L (7-56) 08/24/20 19:29 Alkaline Phosphatase 154 units/L (35-129) H 08/24/20 19:29 Troponin T < 0.010 ng/mL (0.00-0.029) 09/04/20 05:53 Total Protein 6.5 g/dL (6.3-8.2) 08/24/20 19:29 Albumin 3.4 g/dL (3.9-5) L 08/24/20 19:29 Albumin/Globulin Ratio 1.1 % 08/24/20 19:29 Arterial Blood Glucose 302 mg/dL (65-95) H 08/28/20 11:00 Arterial Blood Ionized Calcium 3.8 mg/dL (4.6-5.3) L 08/28/20 11:00 Lymph Enumerat CD4/CD8 0.68 (0.86-5.00) L 09/04/20 05:53 % CD3 Cells 51 % (57-85) L 09/04/20 05:53 Absolute CD3 Count 50 cells/uL (840-3060) L 09/04/20 05:53 % CD4 Cells 20 % (30-61) L 09/04/20 05:53 Absolute CD4 Count 20 cells/uL (490-1740) L 09/04/20 05:53 % CD8 Cells 30 % (12-42) 09/04/20 05:53 Absolute CD8 Count 29 cells/uL (180-1170) L 09/04/20 05:53 % CD19 Cells 17 % (6-29) 09/04/20 05:53 Absolute CD19 Count 17 cells/uL (110-660) L 09/04/20 05:53 Coronavirus (PCR) Negative (Negative) 09/01/20 Unknown Blood Type A POSITIVE 09/03/20 09:56 Antibody Screen Negative 09/03/20 09:56 Crossmatch See Detail 09/03/20 09:56 [place]/IV: Voiding Method Urinal Active Medications - Current Medications Current Medications: Generic Name Dose Route Start Last Admin Trade Name Freq PRN Reason Stop Dose Admin Acetaminophen 650 mg 08/24/20 22:12 Acetaminophen 325 Mg Tab PO Q4H PRN Pain MILD(1-3)/Fever >100.5/KOENIG Alprazolam 0.25 mg 08/30/20 11:30 09/11/20 21:53 Alprazolam 0.25 Mg Tab PO 0.25 mg Q8H PRN Administration Anxiety Arformoterol Tartrate 15 mcg 08/25/20 20:00 09/12/20 09:22 Arformoterol 15 Mcg/2 Ml Nebu IH 15 mcg Q12HRT NADIA Administration Aspirin 81 mg 08/25/20 10:00 09/12/20 09:09 Aspirin Ec 81 Mg Tab PO 81 mg QDAY NADIA Administration Atorvastatin Calcium 40 mg 08/25/20 22:00 09/11/20 21:51 Atorvastatin 40 Mg Tab PO 40 mg QHS NADIA Administration Budesonide 0.5 mg 08/25/20 08:00 09/12/20 09:22 Budesonide 0.5 Mg/2 Ml Nebu IH 0.5 mg Q12HRT NADIA Administration Calcium Carbonate/Glycine 500 mg 09/06/20 09:00 09/12/20 08:59 Calcium Carbonate 500 Mg Tab Chew PO 500 mg TID NADIA Administration Carvedilol 6.25 mg 09/02/20 12:00 09/12/20 09:11 Carvedilol 6.25 Mg Tab PO Not Given BID NADIA Guaifenesin 400 mg 08/29/20 13:00 08/30/20 05:33 Guaifenesin 200 Mg Tab PO 400 mg Q4HR PRN Administration Cough Heparin Sodium (Porcine) 5,000 unit 08/25/20 06:00 09/12/20 06:18 Heparin 5,000 Unit/1 Ml Vial SUB-Q 5,000 unit Q8HR NADIA Administration Hydralazine HCl 10 mg 08/24/20 22:14 08/31/20 13:40 Hydralazine 20 Mg/1 Ml Inj IV 10 mg Q6H PRN Administration SBP>/=160; DBP >/=100 Insulin Human Isoph/Insulin Regular 5 unit 09/10/20 17:00 09/12/20 08:26 Insulin Nph/Regular 70/30 Inj SUB-Q 5 unit BIDDIAB NADIA Administration Insulin Human Lispro 0 unit 08/25/20 22:00 09/11/20 21:54 Insulin Lispro 100 Unit/Ml SUB-Q 3 unit QHS NADIA Administration Protocol Ipratropium [place] 0.5 mg 09/02/20 16:00 09/12/20 02:18 Ipratropium 0.02% Nebu 2.5 Ml IH 0.5 mg Q8HRT NADIA Administration Ketorolac Tromethamine 15 mg 09/07/20 15:22 09/07/20 17:32 Ketorolac 30 Mg/1 Ml Inj IV 09/12/20 15:21 15 mg Q8HR PRN Administration Pain, Mild (1-3) Levalbuterol HCl 0.63 mg 09/01/20 18:00 09/12/20 02:18 Levalbuterol 0.63 Mg/3 Ml Nebu IH 0.63 mg Q8HRT NADIA Administration Mirtazapine 7.5 mg 08/25/20 22:00 09/11/20 21:51 Mirtazapine 15 Mg Tab PO 7.5 mg QHS NADIA Administration Montelukast Sodium 10 mg 08/25/20 22:00 09/11/20 21:51 Montelukast 10 Mg Tab PO 10 mg QHS NADIA Administration Multivitamins 1 each 09/04/20 10:00 09/12/20 09:09 Multivitamins ,Therapeutic Tab PO 1 each QDAY NADIA Administration Multivitamins/Iron 1 each 09/04/20 10:00 09/12/20 09:09 Fe Fumarate/Fa/Mv, Min Comb#15 Cap (Hemocyte Plus) PO 1 each QDAY NADIA Administration Ondansetron HCl 4 mg 08/24/20 22:12 Ondansetron 4 Mg/2 Ml Inj IV Q8H PRN Nausea And Vomiting Oxycodone/Acetaminophen 1 tab 08/24/20 22:23 09/11/20 23:09 Oxycodone /Acetaminophen 5-325mg Tab PO 1 tab BID PRN Administration Pain , Severe (7-10) Pantoprazole Sodium 40 mg 08/25/20 10:00 09/12/20 09:09 Pantoprazole 40 Mg Tab PO 40 mg QDAY NADIA Administration Polyethylene Glycol 17 gm 08/28/20 10:00 09/12/20 09:10 Polyethylene Glycol 3350 17 Gm Powder PO Not Given QDAY NADIA Prednisone 20 mg 09/10/20 12:00 09/12/20 09:09 Prednisone 20 Mg Tab PO 20 mg QDAY NADIA Administration Sodium Chloride 10 ml 08/25/20 10:00 09/12/20 09:11 Sodium Chloride 0.9% 10 Ml Flush Syringe IV 10 ml BID NADIA Administration Sodium Chloride 10 ml 08/24/20 22:12 Sodium Chloride 0.9% 10 Ml Flush Syringe IV PRN PRN LINE FLUSH Tramadol HCl 50 mg 08/24/20 22:23 09/09/20 01:47 Tramadol 50 Mg Tab PO 50 mg Q6HR PRN Administration Pain, Moderate (4-6) Nutrition/Malnutrition Assess - Dietary Evaluation Nutrition/Malnutrition Findings: Nutrition Notes Start: 08/25/20 08:25 Freq: Status: Active Protocol: Document 09/11/20 15:19 ERWIN (Rec: 09/11/20 15:26 ERWIN [id number]) Nutrition Notes Initial or Follow up Reassessment Current Diagnosis COPD,Hypertension,Respiratory Failure Other Pertinent Diagnosis HIV Current Diet Cardiac/Consistent CHO + Ensure Clear 4 times daily Labs/Tests CO2 - 48 Pertinent Medications Prednisone Height 5 ft 5 in Weight 48.7 kg [place] Body Weight (kg) 61.81 BMI 17.9 Weight Status Underweight Subjective/Other Information Pt reports poor appetite. Only 3 breakfast intakes recorded since last assessment (average: 58%). He did not eat lunch today; drank a little of the Ensure Clear ( observed 3 containers on bedside table - a little consumed from each). Pt awaiting placement. Burn Absent Trauma Absent #2 Nutrition Diagnosis Malnutrition Diagnosis Progress(for reassessment Continues documentation) #1 Nutrition Diagnosis Inadequate oral intake Diagnosis Progress(for reassessment Continues documentation) Is patient on ventilator? No Is Patient Ambulatory and/or Out of Bed No REE-([facility]-confined to bed) 1444.308 Kcal/Kg value to use for calculation 35 Approximate Energy Requirements Using 1705 kcal/Kg Calculation Used for Recommendations Kcal/kg Additional Notes Pro needs 1.2-1.5g/k-73g/ day Fluid needs 1ml/kcal Nutrition Intervention Change Diet Order: Continue current diet order Add Supplement/Snack (indicate name/kcal Ensure Clear BID /protein ) Provides kCal: 480 Provides Protein (gm) 16 Goal #1 PO intake of meals plus ONS to meet at least 75% energy and pro needs Goal #2 Wt maintenance and/or gain Follow-Up By: 09/14/20 Additional Comments F/U: intakes (meals, ONS)
[2020-09-12] MEDS ORDERED: SODIUM CHLORIDE 0.9% 250ML 250 ML IV ONE (12:11)
[2020-09-12] MEDS: MONTELUKAST 10 MG TAB PO SCH (22:25)
[2020-09-12] MEDS: MIRTAZAPINE 15 MG TAB PO SCH (22:25)
[2020-09-12] MEDS: ALPRAZolam 0.25 MG TAB PO PRN (22:28)
[2020-09-12] MEDS: oxyCODONE /ACETAMINOPHEN 5-325MG TAB PO PRN (22:31)
[2020-09-13] MEDS: IPRATROPIUM 0.02% NEBU 2.5 ML IH SCH ×3 (00:52→15:15)
[2020-09-13] MEDS: LEVALBUTEROL 0.63 MG/3 ML NEBU IH SCH ×3 (00:52→15:15)
[2020-09-13] MEDS: INSULIN LISPRO 100 UNIT/ML SUB-Q SCH ×2 (00:54→22:14)
[2020-09-13] MEDS: HEPARIN 5,000 UNIT/1 ML VIAL SUB-Q SCH ×3 (06:10→20:34)
[2020-09-13] MEDS: BUDESONIDE 0.5 MG/2 ML NEBU IH SCH ×2 (08:29→19:49)
[2020-09-13] MEDS: ARFORMOTEROL 15 MCG/2 ML NEBU IH SCH ×2 (08:29→19:49)
[2020-09-13] MEDS: INSULIN NPH/REGULAR 70/30 INJ SUB-Q SCH ×2 (09:07→18:04)
[2020-09-13] MEDS: CALCIUM CARBONATE 500 MG TAB CHEW PO SCH ×3 (09:12→20:35)
[2020-09-13] MEDS: predniSONE 20 MG TAB PO SCH (09:25)
[2020-09-13] MEDS: carvediloL 6.25 MG TAB PO SCH ×3 (09:25→22:13)
[2020-09-13] MEDS: ASPIRIN EC 81 MG TAB PO SCH (09:25)
[2020-09-13] MEDS: FE FUMARATE/FA/MV, MIN COMB#15 CAP (HEMOCYTE PLUS) PO SCH (09:25)
[2020-09-13] MEDS: MULTIVITAMINS ,THERAPEUTIC TAB PO SCH (09:25)
[2020-09-13] MEDS: POLYETHYLENE GLYCOL 3350 17 GM POWDER PO SCH (09:26)
[2020-09-13] MEDS: PANTOPRAZOLE 40 MG TAB PO SCH (09:27)
--- NOTE | 2020-09-13 13:27 | Progress Note ---
Assessment and Plan 64-year-old male with past medical history of COPD, hypertension, Diabetes,asthma PE was brought to the emergency room because of shortness of breath since this morning. Patient had an IV started by EMS and was given IV mag, Solu-Medrol and an albuterol treatment. EMS states that the patient states his symptoms are worsening. Patient states 5 breathing treatment just prior to arrival and did not work. Shortness of breath better with rest and worse with exertion. Patient states he has a long history of COPD and asthma. Patient states he had multiple visits to the ER for this. Patient denies chest pain. Patient denies fever and chills. Patient complains of dry cough Patient has history of smoking 1 pack x 40 years. Says stopped smoking 2 months ago. History of using Cocaine. Denies alcohol abuse. Says worked in [employer] field before he disabled. Patient and has two children.No Known drug allergies Patient awake and on 3 litres O2. O2 saturation recorded is 99%. patient not using his O2 all the time. Counseled to use O2 all the time. Mild respiratory distress at rest. Patient afebrile and has no leukocytosis. Chest xray done 08/24/20 reported There is hyperinflation the lungs. No focal infiltrate is seen. Calcified granulomata are noted in the upper lung zones bilaterally. No pneumothorax. Repeating chest xray and ABGs Patient is on Brovanna/Budesonide aerosol treatments, S/C Heparin and Protonix, and prednisone. - Patient Problems (1) Acute respiratory failure with hypoxia Current Visit: No Status: Acute Plan to address problem: O2 3 litres via nasal canula. Brovanna/Budesonide aerosol treatments. Albuterol/atrovent aerosol treatments as needed. S/C Heparin. Protonix, and prednisone. (2) COPD exacerbation Current Visit: No Status: Acute Plan to address problem: O2 3 litres via nasal canula. Brovanna/Budesonide aerosol treatments. Albuterol/atrovent aerosol treatments as needed. S/C Heparine. Protonix, and prednisone. PFTs as out patient. (3) ANGELIC (acute kidney injury) Current Visit: No Status: Acute Plan to address problem: Management as per nephrology. (4) GERD (gastroesophageal reflux disease) Current Visit: No Status: Acute Plan to address problem: Patient is on Protonix. (5) HIV (human immunodeficiency virus infection) Current Visit: No Status: Acute Qualifiers: Plan to address problem: Management as per infectious disease consultants. (6) Hypertension Current Visit: No Status: Acute Plan to address problem: Management as per primary care. (7) Cocaine use Current Visit: No Status: Chronic Plan to address problem: Counseled do not use any illegal drugs. (8) Tobacco use Current Visit: No Status: Chronic Plan to address problem: Counseled continue stop smoking. Subjective Date of service: 09/13/20 Principal diagnosis: Ac hypoxemic resp failure; AE-COPD; ANGELIC; HIV +ve; HTN; Cocaine Use Interval history: 64-year-old male with past medical history of COPD, hypertension, Diabe adi,asthma PE was brought to the emergency room because of shortness of breath since this morning. Patient had an IV started by EMS and was given IV mag, Solu-Medrol and an albuterol treatment. EMS states that the patient states his symptoms are worsening. Patient states 5 breathing treatment just prior to arrival and did not work. Shortness of breath better with rest and worse with exertion. Patient states he has a long history of COPD and asthma. Patient states he had multiple visits to the ER for this. Patient denies chest pain. Patient denies fever and chills. Patient complains of dry cough Patient has history of smoking 1 pack x 40 years. Says stopped smoking 2 months ago. History of using Cocaine. Denies alcohol abuse. 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 Patient and has two children.No Known drug allergies Patient awake and on 3 litres O2. O2 saturation recorded is 99%. patient not using his O2 all the time. Counseled to use O2 all the time. Mild respiratory distress at rest. Patient afebrile and has no leukocytosis. Chest xray done 08/24/20 reported There is hyperinflation the lungs. No focal infiltrate is seen. Calcified granulomata are noted in the upper lung zones bilaterally. No pneumothorax. Repeating chest xray and ABGs Patient is on Brovanna/Budesonide aerosol treatments, S/C Heparin and Protonix, and prednisone. Objective Vital Signs - 12hr 09/13/20 09/13/20 09/13/20 05:03 07:27 08:29 Temperature 98.1 F 98.0 F Pulse Rate 78 79 Pulse Rate [ 89 Bilateral] Respiratory 20 18 Rate Respiratory 20 Rate [Bilateral ] Blood Pressure 112/66 117/74 O2 Sat by Pulse 98 100 99 Oximetry 09/13/20 09:25 Temperature Pulse Rate 79 Pulse Rate [ Bilateral] Respiratory Rate Respiratory Rate [Bilateral ] Blood Pressure 117/74 O2 Sat by Pulse Oximetry Constitutional: no acute distress, alert, other (mildly increased work of breathing at rest) Eyes: non-icteric ENT: oropharynx moist Neck: supple, no JVD Effort: mildly labored Ascultation: Bilateral: diminished breath sounds, wheezes (faint; end expiratory), rhonchi, other (Prolonged expiratory phase.) Percussion: Bilateral: not dull Cardiovascular: regular rate and rhythm Gastrointestinal: normoactive bowel sounds, soft, non-tender, non-distended Integumentary: normal Extremities: no cyanosis, no edema, pulses normal, no ischemia or petechiae Neurologic: normal mental status, non-focal exam, pupils equal and round, motor strength normal and Psychiatric: mood appropriate, affect normal CBC and BMP: 09/05/20 04:56 09/11/20 04:07 ABG, PT/INR, D-dimer: ABG ABG pH 7.316 (7.320-7.450) L 08/28/20 11:00 POC ABG pCO2 68.0 mmHg (32.0-48.0) H 08/28/20 11:00 POC ABG pO2 75.4 mmHg (83-108) L 08/28/20 11:00 POC ABG HCO3 33.9 08/28/20 11:00 ABG O2 Saturation 93.6 (0-100) 08/28/20 11:00 Abnormal lab findings: Abnormal Labs 08/24/20 08/24/20 08/25/20 19:29 19:29 07:00 WBC RBC 3.36 L Hgb 9.7 L Hct 28.5 L MCH MCHC RDW 20.6 H Seg Neuts % (Manual) 97.0 H Lymphocytes % (Manual) 1.0 L Seg Neutrophils # Man 10.2 H Abs Lymphs (Manual) Lymphocytes # (Manual) 0.1 L ABG pH POC ABG pCO2 POC ABG pO2 ABG Hemoglobin ABG Oxyhemoglobin ABG Glucose Sodium Potassium 3.3 L Chloride Carbon Dioxide BUN Glucose 121 H POC Glucose 211 H Calcium 7.6 L TIBC Alkaline Phosphatase 154 H Albumin 3.4 L Arterial Blood Glucose Arterial Blood Ionized Calcium Lymph Enumerat CD4/CD8 % CD3 Cells Absolute CD3 Count % CD4 Cells Absolute CD4 Count Absolute CD8 Count Absolute CD19 Count Crossmatch 08/25/20 08/25/20 08/25/20 07:21 07:21 12:06 WBC RBC 3.13 L Hgb 8.9 L Hct 26.5 L MCH MCHC RDW 20.6 H Seg Neuts % (Manual) 96.0 H Lymphocytes % (Manual) 3.0 L Seg Neutrophils # Man Abs Lymphs (Manual) Lymphocytes # (Manual) 0.2 L ABG pH POC ABG pCO2 POC ABG pO2 ABG Hemoglobin ABG Oxyhemoglobin ABG Glucose Sodium Potassium Chloride Carbon Dioxide 31 H BUN Glucose 208 H POC Glucose 162 H Calcium 7.4 L TIBC Alkaline Phosphatase Albumin Arterial Blood Glucose Arterial Blood Ionized Calcium Lymph Enumerat CD4/CD8 % CD3 Cells Absolute CD3 Count % CD4 Cells Absolute CD4 Count Absolute CD8 Count Absolute CD19 Count Crossmatch 08/25/20 08/25/20 08/26/20 17:01 21:52 05:09 WBC 14.9 H RBC 3.11 L Hgb 8.9 L Hct 26.7 L MCH MCHC RDW 20.6 H Seg Neuts % (Manual) Lymphocytes % (Manual) Seg Neutrophils # Man Abs Lymphs (Manual) Lymphocytes # (Manual) ABG pH POC ABG pCO2 POC ABG pO2 ABG Hemoglobin ABG Oxyhemoglobin ABG Glucose Sodium Potassium Chloride Carbon Dioxide BUN Glucose POC Glucose 158 H 175 H Calcium TIBC Alkaline Phosphatase Albumin Arterial Blood Glucose Arterial Blood Ionized Calcium Lymph Enumerat CD4/CD8 % CD3 Cells Absolute CD3 Count % CD4 Cells Absolute CD4 Count Absolute CD8 Count Absolute CD19 Count Crossmatch 08/26/20 08/26/20 08/26/20 05:09 07:21 11:21 WBC RBC Hgb Hct MCH MCHC RDW Seg Neuts % (Manual) Lymphocytes % (Manual) Seg Neutrophils # Man Abs Lymphs (Manual) Lymphocytes # (Manual) ABG pH POC ABG pCO2 POC ABG pO2 ABG Hemoglobin ABG Oxyhemoglobin ABG Glucose Sodium Potassium Chloride Carbon Dioxide 31 H BUN 21 H Glucose 183 H POC Glucose 149 H 145 H Calcium 7.0 L TIBC Alkaline Phosphatase Albumin Arterial Blood Glucose Arterial Blood Ionized Calcium Lymph Enumerat CD4/CD8 % CD3 Cells Absolute CD3 Count % CD4 Cells Absolute CD4 Count Absolute CD8 Count Absolute CD19 Count Crossmatch 08/26/20 08/26/20 08/27/20 16:49 21:19 04:41 WBC 11.5 H RBC 2.93 L Hgb 8.0 L Hct 25.2 L MCH 27 L MCHC RDW 21.0 H Seg Neuts % (Manual) Lymphocytes % (Manual) Seg Neutrophils # Man Abs Lymphs (Manual) Lymphocytes # (Manual) ABG pH POC ABG pCO2 POC ABG pO2 ABG Hemoglobin ABG Oxyhemoglobin ABG Glucose Sodium Potassium Chloride Carbon Dioxide BUN Glucose POC Glucose 177 H 144 H Calcium TIBC Alkaline Phosphatase Albumin Arterial Blood Glucose Arterial Blood Ionized Calcium Lymph Enumerat CD4/CD8 % CD3 Cells Absolute CD3 Count % CD4 Cells Absolute CD4 Count Absolute CD8 Count Absolute CD19 Count Crossmatch 08/27/20 08/27/20 08/27/20 04:41 07:25 07:30 WBC RBC Hgb Hct MCH MCHC RDW Seg Neuts % (Manual) Lymphocytes % (Manual) Seg Neutrophils # Man Abs Lymphs (Manual) Lymphocytes # (Manual) ABG pH POC ABG pCO2 POC ABG pO2 ABG Hemoglobin ABG Oxyhemoglobin ABG Glucose Sodium Potassium Chloride Carbon Dioxide 35 H BUN 24 H Glucose 173 H POC Glucose 153 H 143 H Calcium 7.3 L TIBC Alkaline Phosphatase Albumin Arterial Blood Glucose Arterial Blood Ionized Calcium Lymph Enumerat CD4/CD8 % CD3 Cells Absolute CD3 Count % CD4 Cells Absolute CD4 Count Absolute CD8 Count Absolute CD19 Count Crossmatch 08/27/20 08/27/20 08/27/20 11:27 15:49 21:17 WBC RBC Hgb Hct MCH MCHC RDW Seg Neuts % (Manual) Lymphocytes % (Manual) Seg Neutrophils # Man Abs Lymphs (Manual) Lymphocytes # (Manual) ABG pH POC ABG pCO2 POC ABG pO2 ABG Hemoglobin ABG Oxyhemoglobin ABG Glucose Sodium Potassium Chloride Carbon Dioxide BUN Glucose POC Glucose 236 H 184 H 144 H Calcium TIBC Alkaline Phosphatase Albumin Arterial Blood Glucose Arterial Blood Ionized Calcium Lymph Enumerat CD4/CD8 % CD3 Cells Absolute CD3 Count % CD4 Cells Absolute CD4 Count Absolute CD8 Count Absolute CD19 Count Crossmatch 08/28/20 08/28/20 08/28/20 05:55 05:55 07:25 WBC RBC 2.58 L Hgb 7.6 L Hct 22.1 L MCH MCHC 35 H RDW 20.3 H Seg Neuts % (Manual) Lymphocytes % (Manual) Seg Neutrophils # Man Abs Lymphs (Manual) Lymphocytes # (Manual) ABG pH POC ABG pCO2 POC ABG pO2 ABG Hemoglobin ABG Oxyhemoglobin ABG Glucose Sodium Potassium 3.5 L Chloride Carbon Dioxide BUN 33 H Glucose 183 H POC Glucose 164 H Calcium 6.8 L TIBC Alkaline Phosphatase Albumin Arterial Blood Glucose Arterial Blood Ionized Calcium Lymph Enumerat CD4/CD8 % CD3 Cells Absolute CD3 Count % CD4 Cells Absolute CD4 Count Absolute CD8 Count Absolute CD19 Count Crossmatch 08/28/20 08/28/20 08/28/20 11:00 12:06 15:28 WBC RBC Hgb Hct MCH MCHC RDW Seg Neuts % (Manual) Lymphocytes % (Manual) Seg Neutrophils # Man Abs Lymphs (Manual) Lymphocytes # (Manual) ABG pH 7.316 L POC ABG pCO2 68.0 H POC ABG pO2 75.4 L ABG Hemoglobin 8.3 L ABG Oxyhemoglobin 92.5 L ABG Glucose 302 H Sodium Potassium Chloride Carbon Dioxide BUN Glucose POC Glucose 233 H 146 H Calcium TIBC Alkaline Phosphatase Albumin Arterial Blood Glucose 302 H Arterial Blood Ionized Calcium 3.8 L Lymph Enumerat CD4/CD8 % CD3 Cells Absolute CD3 Count % CD4 Cells Absolute CD4 Count Absolute CD8 Count Absolute CD19 Count Crossmatch 08/28/20 08/29/20 08/29/20 21:34 07:26 12:05 WBC RBC Hgb Hct MCH MCHC RDW Seg Neuts % (Manual) Lymphocytes % (Manual) Seg Neutrophils # Man Abs Lymphs (Manual) Lymphocytes # (Manual) ABG pH POC ABG pCO2 POC ABG pO2 ABG Hemoglobin ABG Oxyhemoglobin ABG Glucose Sodium Potassium Chloride Carbon Dioxide BUN Glucose POC Glucose 201 H 167 H 253 H Calcium TIBC Alkaline Phosphatase Albumin Arterial Blood Glucose Arterial Blood Ionized Calcium Lymph Enumerat CD4/CD8 % CD3 Cells Absolute CD3 Count % CD4 Cells Absolute CD4 Count Absolute CD8 Count Absolute CD19 Count Crossmatch 08/29/20 08/29/20 08/30/20 16:32 21:56 07:53 WBC RBC Hgb Hct MCH MCHC RDW Seg Neuts % (Manual) Lymphocytes % (Manual) Seg Neutrophils # Man Abs Lymphs (Manual) Lymphocytes # (Manual) ABG pH POC ABG pCO2 POC ABG pO2 ABG Hemoglobin ABG Oxyhemoglobin ABG Glucose Sodium Potassium Chloride Carbon Dioxide BUN Glucose POC Glucose 128 H 220 H 286 H Calcium TIBC Alkaline Phosphatase Albumin Arterial Blood Glucose Arterial Blood Ionized Calcium Lymph Enumerat CD4/CD8 % CD3 Cells Absolute CD3 Count % CD4 Cells Absolute CD4 Count Absolute CD8 Count Absolute CD19 Count Crossmatch 08/30/20 08/30/20 08/30/20 11:29 17:32 22:03 WBC RBC Hgb Hct MCH MCHC RDW Seg Neuts % (Manual) Lymphocytes % (Manual) Seg Neutrophils # Man Abs Lymphs (Manual) Lymphocytes # (Manual) ABG pH POC ABG pCO2 POC ABG pO2 ABG Hemoglobin ABG Oxyhemoglobin ABG Glucose Sodium Potassium Chloride Carbon Dioxide BUN Glucose POC Glucose 299 H 260 H 196 H Calcium TIBC Alkaline Phosphatase Albumin Arterial Blood Glucose Arterial Blood Ionized Calcium Lymph Enumerat CD4/CD8 % CD3 Cells Absolute CD3 Count % CD4 Cells Absolute CD4 Count Absolute CD8 Count Absolute CD19 Count Crossmatch 08/31/20 08/31/20 08/31/20 07:41 11:26 16:19 WBC RBC Hgb Hct MCH MCHC RDW Seg Neuts % (Manual) Lymphocytes % (Manual) Seg Neutrophils # Man Abs Lymphs (Manual) Lymphocytes # (Manual) ABG pH POC ABG pCO2 POC ABG pO2 ABG Hemoglobin ABG Oxyhemoglobin ABG Glucose Sodium Potassium Chloride Carbon Dioxide BUN Glucose POC Glucose 166 H 269 H 265 H Calcium TIBC Alkaline Phosphatase Albumin Arterial Blood Glucose Arterial Blood Ionized Calcium Lymph Enumerat CD4/CD8 % CD3 Cells Absolute CD3 Count % CD4 Cells Absolute CD4 Count Absolute CD8 Count Absolute CD19 Count Crossmatch 08/31/20 09/01/20 09/01/20 20:44 07:40 11:39 WBC RBC Hgb Hct MCH MCHC RDW Seg Neuts % (Manual) Lymphocytes % (Manual) Seg Neutrophils # Man Abs Lymphs (Manual) Lymphocytes # (Manual) ABG pH POC ABG pCO2 POC ABG pO2 ABG Hemoglobin ABG Oxyhemoglobin ABG Glucose Sodium Potassium Chloride Carbon Dioxide BUN Glucose POC Glucose 243 H 272 H 320 H Calcium TIBC Alkaline Phosphatase Albumin Arterial Blood Glucose Arterial Blood Ionized Calcium Lymph Enumerat CD4/CD8 % CD3 Cells Absolute CD3 Count % CD4 Cells Absolute CD4 Count Absolute CD8 Count Absolute CD19 Count Crossmatch 0709/[id number] 09/02/20 16:16 21:59 08:32 WBC RBC Hgb Hct MCH MCHC RDW Seg Neuts % (Manual) Lymphocytes % (Manual) Seg Neutrophils # Man Abs Lymphs (Manual) Lymphocytes # (Manual) ABG pH POC ABG pCO2 POC ABG pO2 ABG Hemoglobin ABG Oxyhemoglobin ABG Glucose Sodium Potassium Chloride Carbon Dioxide BUN Glucose POC Glucose 319 H 157 H 195 H Calcium TIBC Alkaline Phosphatase Albumin Arterial Blood Glucose Arterial Blood Ionized Calcium Lymph Enumerat CD4/CD8 % CD3 Cells Absolute CD3 Count % CD4 Cells Absolute CD4 Count Absolute CD8 Count Absolute CD19 Count Crossmatch 09/02/20 09/02/20 09/03/20 11:44 20:09 05:02 WBC RBC 2.25 L Hgb 6.5 L Hct 19.7 L* MCH MCHC RDW 21.3 H Seg Neuts % (Manual) Lymphocytes % (Manual) Seg Neutrophils # Man Abs Lymphs (Manual) Lymphocytes # (Manual) ABG pH POC ABG pCO2 POC ABG pO2 ABG Hemoglobin ABG Oxyhemoglobin ABG Glucose Sodium Potassium Chloride Carbon Dioxide BUN Glucose POC Glucose 167 H 214 H Calcium TIBC Alkaline Phosphatase Albumin Arterial Blood Glucose Arterial Blood Ionized Calcium Lymph Enumerat CD4/CD8 % CD3 Cells Absolute CD3 Count % CD4 Cells Absolute CD4 Count Absolute CD8 Count Absolute CD19 Count Crossmatch 09/03/20 09/03/20 09/03/20 05:02 07:35 09:56 WBC RBC Hgb Hct MCH MCHC RDW Seg Neuts % (Manual) Lymphocytes % (Manual) Seg Neutrophils # Man Abs Lymphs (Manual) Lymphocytes # (Manual) ABG pH POC ABG pCO2 POC ABG pO2 ABG Hemoglobin ABG Oxyhemoglobin ABG Glucose Sodium 149 H Potassium 3.3 L Chloride Carbon Dioxide 38 H BUN 30 H Glucose 212 H POC Glucose 207 H Calcium 6.7 L TIBC Alkaline Phosphatase Albumin Arterial Blood Glucose Arterial Blood Ionized Calcium Lymph Enumerat CD4/CD8 % CD3 Cells Absolute CD3 Count % CD4 Cells Absolute CD4 Count Absolute CD8 Count Absolute CD19 Count Crossmatch See Detail 09/03/20 09/03/20 09/04/20 12:05 16:04 05:53 WBC 14.8 H RBC 2.99 L Hgb 8.6 L Hct 26.4 L D MCH MCHC RDW 19.0 H Seg Neuts % (Manual) Lymphocytes % (Manual) Seg Neutrophils # Man Abs Lymphs (Manual) Lymphocytes # (Manual) ABG pH POC ABG pCO2 POC ABG pO2 ABG Hemoglobin ABG Oxyhemoglobin ABG Glucose Sodium Potassium Chloride Carbon Dioxide BUN Glucose POC Glucose 193 H 174 H Calcium TIBC Alkaline Phosphatase Albumin Arterial Blood Glucose Arterial Blood Ionized Calcium Lymph Enumerat CD4/CD8 % CD3 Cells Absolute CD3 Count % CD4 Cells Absolute CD4 Count Absolute CD8 Count Absolute CD19 Count Crossmatch 09/04/20 09/04/20 09/04/20 05:53 05:53 08:33 WBC RBC Hgb Hct MCH MCHC RDW Seg Neuts % (Manual) Lymphocytes % (Manual) Seg Neutrophils # Man Abs Lymphs (Manual) 98 L Lymphocytes # (Manual) ABG pH POC ABG pCO2 POC ABG pO2 ABG Hemoglobin ABG Oxyhemoglobin ABG Glucose Sodium 149 H Potassium Chloride Carbon Dioxide 39 H BUN 28 H Glucose 175 H POC Glucose 222 H Calcium 6.9 L TIBC 214 L Alkaline Phosphatase Albumin Arterial Blood Glucose Arterial Blood Ionized Calcium Lymph Enumerat CD4/CD8 0.68 L % CD3 Cells 51 L Absolute CD3 Count 50 L % CD4 Cells 20 L Absolute CD4 Count 20 L Absolute CD8 Count 29 L Absolute CD19 Count 17 L Crossmatch 09/04/20 09/04/20 09/05/20 11:21 15:42 04:56 WBC RBC 2.88 L Hgb 8.6 L Hct 25.3 L MCH MCHC RDW 19.6 H Seg Neuts % (Manual) Lymphocytes % (Manual) Seg Neutrophils # Man Abs Lymphs (Manual) Lymphocytes # (Manual) ABG pH POC ABG pCO2 POC ABG pO2 ABG Hemoglobin ABG Oxyhemoglobin ABG Glucose Sodium Potassium Chloride Carbon Dioxide BUN Glucose POC Glucose 253 H 240 H Calcium TIBC Alkaline Phosphatase Albumin Arterial Blood Glucose Arterial Blood Ionized Calcium Lymph Enumerat CD4/CD8 % CD3 Cells Absolute CD3 Count % CD4 Cells Absolute CD4 Count Absolute CD8 Count Absolute CD19 Count Crossmatch 09/05/20 09/05/20 09/05/20 04:56 07:31 12:01 WBC RBC Hgb Hct MCH MCHC RDW Seg Neuts % (Manual) Lymphocytes % (Manual) Seg Neutrophils # Man Abs Lymphs (Manual) Lymphocytes # (Manual) ABG pH POC ABG pCO2 POC ABG pO2 ABG Hemoglobin ABG Oxyhemoglobin ABG Glucose Sodium 149 H Potassium 3.1 L Chloride Carbon Dioxide 48 H* D BUN 24 H Glucose 142 H POC Glucose 131 H 124 H Calcium 6.5 L TIBC Alkaline Phosphatase Albumin Arterial Blood Glucose Arterial Blood Ionized Calcium Lymph Enumerat CD4/CD8 % CD3 Cells Absolute CD3 Count % CD4 Cells Absolute CD4 Count Absolute CD8 Count Absolute CD19 Count Crossmatch 09/05/20 09/05/20 09/06/20 16:52 20:19 04:26 WBC RBC Hgb Hct MCH MCHC RDW Seg Neuts % (Manual) Lymphocytes % (Manual) Seg Neutrophils # Man Abs Lymphs (Manual) Lymphocytes # (Manual) ABG pH POC ABG pCO2 POC ABG pO2 ABG Hemoglobin ABG Oxyhemoglobin ABG Glucose Sodium 151 H Potassium 3.3 L Chloride Carbon Dioxide 44 H* BUN 24 H Glucose POC Glucose 168 H 130 H Calcium 5.8 L* TIBC Alkaline Phosphatase Albumin Arterial Blood Glucose Arterial Blood Ionized Calcium Lymph Enumerat CD4/CD8 % CD3 Cells Absolute CD3 Count % CD4 Cells Absolute CD4 Count Absolute CD8 Count Absolute CD19 Count Crossmatch 09/06/20 09/06/20 09/06/20 11:51 15:19 20:20 WBC RBC Hgb Hct MCH MCHC RDW Seg Neuts % (Manual) Lymphocytes % (Manual) Seg Neutrophils # Man Abs Lymphs (Manual) Lymphocytes # (Manual) ABG pH POC ABG pCO2 POC ABG pO2 ABG Hemoglobin ABG Oxyhemoglobin ABG Glucose Sodium Potassium Chloride Carbon Dioxide BUN Glucose POC Glucose 150 H 113 H 138 H Calcium TIBC Alkaline Phosphatase Albumin Arterial Blood Glucose Arterial Blood Ionized Calcium Lymph Enumerat CD4/CD8 % CD3 Cells Absolute CD3 Count % CD4 Cells Absolute CD4 Count Absolute CD8 Count Absolute CD19 Count Crossmatch 09/07/20 09/07/20 09/07/20 07:41 09:41 11:47 WBC RBC Hgb Hct MCH MCHC RDW Seg Neuts % (Manual) Lymphocytes % (Manual) Seg Neutrophils # Man Abs Lymphs (Manual) Lymphocytes # (Manual) ABG pH POC ABG pCO2 POC ABG pO2 ABG Hemoglobin ABG Oxyhemoglobin ABG Glucose Sodium 146 H Potassium Chloride Carbon Dioxide 43 H* BUN 24 H Glucose 186 H POC Glucose 118 H 198 H Calcium 6.1 L TIBC Alkaline Phosphatase Albumin Arterial Blood Glucose Arterial Blood Ionized Calcium Lymph Enumerat CD4/CD8 % CD3 Cells Absolute CD3 Count % CD4 Cells Absolute CD4 Count Absolute CD8 Count Absolute CD19 Count Crossmatch 09/07/20 09/08/20 09/08/20 21:58 05:09 07:55 WBC RBC Hgb Hct MCH MCHC RDW Seg Neuts % (Manual) Lymphocytes % (Manual) Seg Neutrophils # Man Abs Lymphs (Manual) Lymphocytes # (Manual) ABG pH POC ABG pCO2 POC ABG pO2 ABG Hemoglobin ABG Oxyhemoglobin ABG Glucose Sodium 146 H Potassium Chloride Carbon Dioxide 47 H* BUN Glucose 120 H POC Glucose 215 H 110 H Calcium 6.1 L TIBC Alkaline Phosphatase Albumin Arterial Blood Glucose Arterial Blood Ionized Calcium Lymph Enumerat CD4/CD8 % CD3 Cells Absolute CD3 Count % CD4 Cells Absolute CD4 Count Absolute CD8 Count Absolute CD19 Count Crossmatch 09/08/20 09/08/20 09/08/20 11:27 16:46 20:17 WBC RBC Hgb Hct MCH MCHC RDW Seg Neuts % (Manual) Lymphocytes % (Manual) Seg Neutrophils # Man Abs Lymphs (Manual) Lymphocytes # (Manual) ABG pH POC ABG pCO2 POC ABG pO2 ABG Hemoglobin ABG Oxyhemoglobin ABG Glucose Sodium Potassium Chloride Carbon Dioxide BUN Glucose POC Glucose 113 H 139 H 122 H Calcium TIBC Alkaline Phosphatase Albumin Arterial Blood Glucose Arterial Blood Ionized Calcium Lymph Enumerat CD4/CD8 % CD3 Cells Absolute CD3 Count % CD4 Cells Absolute CD4 Count Absolute CD8 Count Absolute CD19 Count Crossmatch 09/09/20 09/09/20 09/09/20 08:08 11:28 16:22 WBC RBC Hgb Hct MCH MCHC RDW Seg Neuts % (Manual) Lymphocytes % (Manual) Seg Neutrophils # Man Abs Lymphs (Manual) Lymphocytes # (Manual) ABG pH POC ABG pCO2 POC ABG pO2 ABG Hemoglobin ABG Oxyhemoglobin ABG Glucose Sodium Potassium Chloride Carbon Dioxide BUN Glucose POC Glucose 107 H 113 H 108 H Calcium TIBC Alkaline Phosphatase Albumin Arterial Blood Glucose Arterial Blood Ionized Calcium Lymph Enumerat CD4/CD8 % CD3 Cells Absolute CD3 Count % CD4 Cells Absolute CD4 Count Absolute CD8 Count Absolute CD19 Count Crossmatch 09/10/20 09/10/20 09/10/20 11:55 16:10 20:56 WBC RBC Hgb Hct MCH MCHC RDW Seg Neuts % (Manual) Lymphocytes % (Manual) Seg Neutrophils # Man Abs Lymphs (Manual) Lymphocytes # (Manual) ABG pH POC ABG pCO2 POC ABG pO2 ABG Hemoglobin ABG Oxyhemoglobin ABG Glucose Sodium Potassium Chloride Carbon Dioxide BUN Glucose POC Glucose 156 H 127 H 311 H Calcium TIBC Alkaline Phosphatase Albumin Arterial Blood Glucose Arterial Blood Ionized Calcium Lymph Enumerat CD4/CD8 % CD3 Cells Absolute CD3 Count % CD4 Cells Absolute CD4 Count Absolute CD8 Count Absolute CD19 Count Crossmatch 09/11/20 09/11/20 09/11/20 04:07 07:41 11:19 WBC RBC Hgb Hct MCH MCHC RDW Seg Neuts % (Manual) Lymphocytes % (Manual) Seg Neutrophils # Man Abs Lymphs (Manual) Lymphocytes # (Manual) ABG pH POC ABG pCO2 POC ABG pO2 ABG Hemoglobin ABG Oxyhemoglobin ABG Glucose Sodium Potassium Chloride 95.1 L Carbon Dioxide 48 H* BUN Glucose 135 H POC Glucose 151 H 152 H Calcium 6.1 L TIBC Alkaline Phosphatase Albumin Arterial Blood Glucose Arterial Blood Ionized Calcium Lymph Enumerat CD4/CD8 % CD3 Cells Absolute CD3 Count % CD4 Cells Absolute CD4 Count Absolute CD8 Count Absolute CD19 Count Crossmatch 09/11/20 09/11/20 09/12/20 16:45 20:22 08:12 WBC RBC Hgb Hct MCH MCHC RDW Seg Neuts % (Manual) Lymphocytes % (Manual) Seg Neutrophils # Man Abs Lymphs (Manual) Lymphocytes # (Manual) ABG pH POC ABG pCO2 POC ABG pO2 ABG Hemoglobin ABG Oxyhemoglobin ABG Glucose Sodium Potassium Chloride Carbon Dioxide BUN Glucose POC Glucose 156 H 220 H 202 H Calcium TIBC Alkaline Phosphatase Albumin Arterial Blood Glucose Arterial Blood Ionized Calcium Lymph Enumerat CD4/CD8 % CD3 Cells Absolute CD3 Count % CD4 Cells Absolute CD4 Count Absolute CD8 Count Absolute CD19 Count Crossmatch 09/12/20 09/12/20 09/12/20 10:52 12:37 16:47 WBC RBC Hgb Hct MCH MCHC RDW Seg Neuts % (Manual) Lymphocytes % (Manual) Seg Neutrophils # Man Abs Lymphs (Manual) Lymphocytes # (Manual) ABG pH POC ABG pCO2 POC ABG pO2 ABG Hemoglobin ABG Oxyhemoglobin ABG Glucose Sodium Potassium Chloride Carbon Dioxide BUN Glucose POC Glucose 62 L 170 H 261 H Calcium TIBC Alkaline Phosphatase Albumin Arterial Blood Glucose Arterial Blood Ionized Calcium Lymph Enumerat CD4/CD8 % CD3 Cells Absolute CD3 Count % CD4 Cells Absolute CD4 Count Absolute CD8 Count Absolute CD19 Count Crossmatch 09/13/20 09/13/20 09/13/20 00:40 07:25 11:15 WBC RBC Hgb Hct MCH MCHC RDW Seg Neuts % (Manual) Lymphocytes % (Manual) Seg Neutrophils # Man Abs Lymphs (Manual) Lymphocytes # (Manual) ABG pH POC ABG pCO2 POC ABG pO2 ABG Hemoglobin ABG Oxyhemoglobin ABG Glucose Sodium Potassium Chloride Carbon Dioxide BUN Glucose POC Glucose 134 H 158 H 130 H Calcium TIBC Alkaline Phosphatase Albumin Arterial Blood Glucose Arterial Blood Ionized Calcium Lymph Enumerat CD4/CD8 % CD3 Cells Absolute CD3 Count % CD4 Cells Absolute CD4 Count Absolute CD8 Count Absolute CD19 Count Crossmatch Allied health notes reviewed: nursing
--- NOTE | 2020-09-13 17:20 | Progress Note ---
Assessment and Plan Assessment and plan: Patient is requiring 4 L of nasal cannula oxygen today --General debility; Supportive care, PT and OT --Paroxysmal atrial fibrillation; Patient is in sinus rhythm today with heart rate in 70s No A. fib last 24 hours Cardiology following Continue beta-blockers, not a candidate for anticoagulation Due to severe anemia requiring blood transfusion --Acute exacerbation of COPD ; Patient is a current smoker Continue nasal cannula oxygen titrate O2 sats to more than 90% --Acute hypoxic respiratory failure ; requiring BiPAP Continue oxygen via nasal cannula 4 L today Titrate O2 sats more than 90%, BiPAP as needed --Leukocytosis- resolved --Hypertension; moderate control Continue current antihypertensives, as needed medications --Normocytic anemia Hemoglobin is down to 8.0 > 7.6 this morning Closely monitor H&H transfuse as needed --Hyperglycemia -likely secondary to steroids HD A1c 5.8, Accu-Chek sliding scale coverage Long-acting insulin if needed --Ongoing tobacco abuse Patient counseled on tobacco cessation Nicotine patch as needed --history of HIV infection for many years Patient follow-up private ID/health department upon discharge --Mild to moderate malnutrition/hypoalbuminemia Nutrition supplements and supportive care --DVT prophylaxis; Heparin subcu/SCDs Physical therapy/Occupational Therapy evaluation and treatment DC planning per case management OT recommended subacute rehab /SNF placement. Awaiting placement, patient is medically stable for discharge SNF needs PT OT updates Brief history: and Daily Hospital course; 08/29; patient requiring BiPAP, severely short of breath, pulmonary following; Wean as tolerated ; requiring intermittent BiPAP especially at night This morning patient is on 4 L of nasal cannula oxygen Patient already has home oxygen at 3 L Pulmonary following 08/31/2020; patient continues to be in shortness of breath Unable to keep his oxygen, confused at times BiPAP as needed, pulmonary following Recommend placement SNF, Check for [facility] PCR PT OT evaluation 09/01/2020; on 4 L of nasal oxygen Awaiting placement Resumed service; 09/05/2020; I checked with monitor room, patient is in sinus heart rate in 70s No A. fib last 24 hours Awaiting subacute rehab placement 09/06/2020; hypokalemia, hypocalcemia Replenished with KCl, calcium gluconate and calcium carbonate Follow electrolytes 09/07/2020; follow today's labs Awaiting placement 09/08/2020; patient is clinically stable for discharge Awaiting subacute rehab placement 09/09/2020; awaiting placement 09/10/2020; no new complaints, stable for discharge Awaiting placement 09/11/2020; pulmonary cleared for discharge Pending placement DC planning per case management 09/12/2020; Pending placement SNF needs updated PT OT evaluations 09/13/2020; patient had PT OT updates Recommend SNF placement History Interval history: I have seen and examined the patient at the bedside Patient's chart and medications reviewed No new events reported Patient has no new complaints Vital signs noted Awaiting placement Hospitalist Physical - Constitutional Vitals: Temp Pulse Resp BP Pulse Ox 98.0 F 92 H 18 139/85 98 09/13/20 15:32 09/13/20 15:32 09/13/20 15:32 09/13/20 15:32 09/13/20 15:32 General appearance: Present: no acute distress, well-nourished - EENT Eyes: Present: PERRL, EOM intact - Neck Neck: Present: supple, normal ROM - Respiratory Respiratory effort: normal Respiratory: bilateral: diminished, negative: rales, rhonchi, wheezing - Cardiovascular Rhythm: regular Heart Sounds: Present: S1 & S2 - Extremities Extremities: no ischemia, No edema - Abdominal General gastrointestinal: soft, non-tender, non-distended, normal bowel sounds - Integumentary Integumentary: Present: clear, warm - Psychiatric Psychiatric: appropriate mood/affect, cooperative - Neurologic Neurologic: CNII-XII intact, moves all extremities HEART Score - HEART Score Troponin: Troponin T < 0.010 ng/mL (0.00-0.029) 09/04/20 05:53 Results - Labs CBC & Chem 7: 09/05/20 04:56 09/11/20 04:07 Labs: Laboratory Last Values WBC 7.7 K/mm3 (4.5-11.0) 09/05/20 04:56 RBC 2.88 M/mm3 (3.65-5.03) L 09/05/20 04:56 Hgb 8.6 gm/dl (11.8-15.2) L 09/05/20 04:56 Hct 25.3 % (35.5-45.6) L 09/05/20 04:56 MCV 88 fl (84-94) 09/05/20 04:56 MCH 30 pg (28-32) 09/05/20 04:56 MCHC 34 % (32-34) 09/05/20 04:56 RDW 19.6 % (13.2-15.2) H 09/05/20 04:56 Plt Count 143 K/mm3 (140-440) 09/05/20 04:56 Add Manual Diff Complete 08/25/20 07:21 Total Counted 100 08/25/20 07:21 Seg Neutrophils % [employer]in[employer] 08/25/20 07:21 Seg Neuts % (Manual) 96.0 % (40.0-70.0) H 08/25/20 07:21 Lymphocytes % (Manual) 3.0 % (13.4-35.0) L 08/25/20 07:21 Monocytes % (Manual) 2.0 % (0.0-7.3) 08/24/20 19:29 Myelocytes % 1.0 % 08/25/20 07:21 Nucleated RBC % Not Reportable 08/25/20 07:21 Seg Neutrophils # Man 4.8 K/mm3 (1.8-7.7) 08/25/20 07:21 Band Neutrophils # 0.0 K/mm3 08/25/20 07:21 Abs Lymphs (Manual) 98 cells/uL (850-3900) L 09/04/20 05:53 Lymphocytes # (Manual) 0.2 K/mm3 (1.2-5.4) L 08/25/20 07:21 Abs React Lymphs (Man) 0.0 K/mm3 08/25/20 07:21 Monocytes # (Manual) 0.0 K/mm3 (0.0-0.8) 08/25/20 07:21 Eosinophils # (Manual) 0.0 K/mm3 (0.0-0.4) 08/25/20 07:21 Basophils # (Manual) 0.0 K/mm3 (0.0-0.1) 08/25/20 07:21 Metamyelocytes # 0.0 K/mm3 08/25/20 07:21 Myelocytes # 0.1 K/mm3 08/25/20 07:21 Promyelocytes # 0.0 K/mm3 08/25/20 07:21 Blast Cells # 0.0 K/mm3 08/25/20 07:21 WBC Morphology Not Reportable 08/25/20 07:21 Hypersegmented Neuts Not Reportable 08/25/20 07:21 Hyposegmented Neuts Not Reportable 08/25/20 07:21 Hypogranular Neuts Not Reportable 08/25/20 07:21 Smudge Cells Not Reportable 08/25/20 07:21 Toxic Granulation Not Reportable 08/25/20 07:21 Toxic Vacuolation Not Reportable 08/25/20 07:21 Dohle Bodies Not Reportable 08/25/20 07:21 Pelger-Huet Anomaly Not Reportable 08/25/20 07:21 Ruma Rods Not Reportable 08/25/20 07:21 Platelet Estimate Consistent w auto 08/25/20 07:21 Clumped Platelets Not Reportable 08/25/20 07:21 Plt Clumps, EDTA Not Reportable 08/25/20 07:21 Large Platelets Not Reportable 08/25/20 07:21 Giant Platelets Not Reportable 08/25/20 07:21 Platelet Satelliting Not Reportable 08/25/20 07:21 Plt Morphology Comment Not Reportable 08/25/20 07:21 RBC Morphology Not Reportable 08/25/20 07:21 Dimorphic RBCs Not Reportable 08/25/20 07:21 Polychromasia Not Reportable 08/25/20 07:21 Hypochromasia 1+ 08/25/20 07:21 Poikilocytosis 1+ 08/25/20 07:21 Anisocytosis 1+ 08/25/20 07:21 Microcytosis Not Reportable 08/25/20 07:21 Macrocytosis Not Reportable 08/25/20 07:21 Spherocytes Not Reportable 08/25/20 07:21 Pappenheimer Bodies Not Reportable 08/25/20 07:21 Sickle Cells Not Reportable 08/25/20 07:21 Target Cells Not Reportable 08/25/20 07:21 Tear Drop Cells Not Reportable 08/25/20 07:21 Ovalocytes 1+ 08/25/20 07:21 Helmet Cells Not Reportable 08/25/20 07:21 [place] Bodies Not Reportable 08/25/20 07:21 [place] Rings Not Reportable 08/25/20 07:21 Don Cells Not Reportable 08/25/20 07:21 Bite Cells Not Reportable 08/25/20 07:21 Crenated Cell Not Reportable 08/25/20 07:21 Elliptocytes 2+ 08/25/20 07:21 Acanthocytes (Spur) 1+ 08/25/20 07:21 Rouleaux Not Reportable 08/25/20 07:21 Hemoglobin C Crystals Not Reportable 08/25/20 07:21 Schistocytes Not Reportable 08/25/20 07:21 Malaria parasites Not Reportable 08/25/20 07:21 Ric Bodies Not Reportable 08/25/20 07:21 Hem Pathologist Commnt No 08/25/20 07:21 ABG pH 7.316 (7.320-7.450) L 08/28/20 11:00 POC ABG pCO2 68.0 mmHg (32.0-48.0) H 08/28/20 11:00 POC ABG pO2 75.4 mmHg (83-108) L 08/28/20 11:00 POC ABG HCO3 33.9 08/28/20 11:00 ABG O2 Saturation 93.6 (0-100) 08/28/20 11:00 POC ABG Base Excess 6.6 08/28/20 11:00 ABG Hemoglobin 8.3 (12.0-17.5) L 08/28/20 11:00 ABG Oxyhemoglobin 92.5 (94-98) L 08/28/20 11:00 ABG Methemoglobin 0.3 (0.0-1.5) 08/28/20 11:00 ABG Sodium 143.2 mmol/L (136.0-145.0) 08/28/20 11:00 ABG Potassium 3.8 mmol/L (3.40-4.50) 08/28/20 11:00 ABG Chloride 103.0 mmol/L (98-107) 08/28/20 11:00 ABG Glucose 302 mg/dL (65-95) H 08/28/20 11:00 Carboxyhemoglobin 0.9 (0.5-1.5) 08/28/20 11:00 FiO2 % 40.0 08/28/20 11:00 Sodium 145 mmol/L (137-145) 09/11/20 04:07 Potassium 3.6 mmol/L (3.6-5.0) 09/11/20 04:07 Chloride 95.1 mmol/L (98-107) L 09/11/20 04:07 Carbon Dioxide 48 mmol/L (22-30) H* 09/11/20 04:07 Anion Gap 6 mmol/L 09/11/20 04:07 BUN 12 mg/dL (9-20) 09/11/20 04:07 Creatinine 0.8 mg/dL (0.8-1.3) 09/11/20 04:07 Estimated GFR > 60 ml/min 09/11/20 04:07 BUN/Creatinine Ratio 15 % 09/11/20 04:07 Glucose 135 mg/dL (75-100) H 09/11/20 04:07 POC Glucose 147 mg/dL (70-105) H 09/13/20 15:30 Hemoglobin A1c 5.8 % (4-6) 08/25/20 07:27 Calcium 6.1 mg/dL (8.4-10.2) L 09/11/20 04:07 Magnesium 1.70 mg/dL (1.7-2.3) 09/11/20 04:07 Iron 58 ug/dL (49-181) 09/04/20 05:53 TIBC 214 mcg/dL (250-450) L 09/04/20 05:53 Total Bilirubin 0.40 mg/dL (0.1-1.2) 08/24/20 19:29 AST 21 units/L (5-40) 08/24/20 19:29 ALT 36 units/L (7-56) 08/24/20 19:29 Alkaline Phosphatase 154 units/L (35-129) H 08/24/20 19:29 Troponin T < 0.010 ng/mL (0.00-0.029) 09/04/20 05:53 Total Protein 6.5 g/dL (6.3-8.2) 08/24/20 19:29 Albumin 3.4 g/dL (3.9-5) L 08/24/20 19:29 Albumin/Globulin Ratio 1.1 % 08/24/20 19:29 Arterial Blood Glucose 302 mg/dL (65-95) H 08/28/20 11:00 Arterial Blood Ionized Calcium 3.8 mg/dL (4.6-5.3) L 08/28/20 11:00 Lymph Enumerat CD4/CD8 0.68 (0.86-5.00) L 09/04/20 05:53 % CD3 Cells 51 % (57-85) L 09/04/20 05:53 Absolute CD3 Count 50 cells/uL (840-3060) L 09/04/20 05:53 % CD4 Cells 20 % (30-61) L 09/04/20 05:53 Absolute CD4 Count 20 cells/uL (490-1740) L 09/04/20 05:53 % CD8 Cells 30 % (12-42) 09/04/20 05:53 Absolute CD8 Count 29 cells/uL (180-1170) L 09/04/20 05:53 % CD19 Cells 17 % (6-29) 09/04/20 05:53 Absolute CD19 Count 17 cells/uL (110-660) L 09/04/20 05:53 Coronavirus (PCR) Negative (Negative) 09/01/20 Unknown Blood Type A POSITIVE 09/03/20 09:56 Antibody Screen Negative 09/03/20 09:56 Crossmatch See Detail 09/03/20 09:56 [place]/IV: Voiding Method Urinal Active Medications - Current Medications Current Medications: Generic Name Dose Route Start Last Admin Trade Name Freq PRN Reason Stop Dose Admin Acetaminophen 650 mg 08/24/20 22:12 Acetaminophen 325 Mg Tab PO Q4H PRN Pain MILD(1-3)/Fever >100.5/KOENIG Alprazolam 0.25 mg 08/30/20 11:30 09/12/20 22:28 Alprazolam 0.25 Mg Tab PO 0.25 mg Q8H PRN Administration Anxiety Arformoterol Tartrate 15 mcg 08/25/20 20:00 09/13/20 08:29 Arformoterol 15 Mcg/2 Ml Nebu IH 15 mcg Q12HRT NADIA Administration Aspirin 81 mg 08/25/20 10:00 09/13/20 09:25 Aspirin Ec 81 Mg Tab PO 81 mg QDAY NADIA Administration Atorvastatin Calcium 40 mg 08/25/20 22:00 09/12/20 22:25 Atorvastatin 40 Mg Tab PO 40 mg QHS NADIA Administration Budesonide 0.5 mg 08/25/20 08:00 09/13/20 08:29 Budesonide 0.5 Mg/2 Ml Nebu IH 0.5 mg Q12HRT NADIA Administration Calcium Carbonate/Glycine 500 mg 09/06/20 09:00 09/13/20 13:45 Calcium Carbonate 500 Mg Tab Chew PO 500 mg TID NADIA Administration Carvedilol 6.25 mg 09/02/20 12:00 09/13/20 09:25 Carvedilol 6.25 Mg Tab PO 6.25 mg BID NADIA Administration Guaifenesin 400 mg 08/29/20 13:00 08/30/20 05:33 Guaifenesin 200 Mg Tab PO 400 mg Q4HR PRN Administration Cough Heparin Sodium (Porcine) 5,000 unit 08/25/20 06:00 09/13/20 13:44 Heparin 5,000 Unit/1 Ml Vial SUB-Q 5,000 unit Q8HR NADIA Administration Hydralazine HCl 10 mg 08/24/20 22:14 08/31/20 13:40 Hydralazine 20 Mg/1 Ml Inj IV 10 mg Q6H PRN Administration SBP>/=160; DBP >/=100 Insulin Human Isoph/Insulin Regular 5 unit 09/10/20 17:00 09/13/20 09:07 Insulin Nph/Regular 70/30 Inj SUB-Q 5 unit BIDDIAB NADIA Administration Insulin Human Lispro 0 unit 08/25/20 22:00 09/13/20 00:54 Insulin Lispro 100 Unit/Ml SUB-Q Not Given QHS [facility] Protocol Ipratropium [place] 0.5 mg 09/02/20 16:00 09/13/20 15:15 Ipratropium 0.02% Nebu 2.5 Ml IH 0.5 mg Q8HRT NADIA Administration Levalbuterol HCl 0.63 mg 09/01/20 18:00 09/13/20 15:15 Levalbuterol 0.63 Mg/3 Ml Nebu IH 0.63 mg Q8HRT NADIA Administration Mirtazapine 7.5 mg 08/25/20 22:00 09/12/20 22:25 Mirtazapine 15 Mg Tab PO 7.5 mg QHS NADIA Administration Montelukast Sodium 10 mg 08/25/20 22:00 09/12/20 22:25 Montelukast 10 Mg Tab PO 10 mg QHS NADIA Administration Multivitamins 1 each 09/04/20 10:00 09/13/20 09:25 Multivitamins ,Therapeutic Tab PO 1 each QDAY NADIA Administration Multivitamins/Iron 1 each 09/04/20 10:00 09/13/20 09:25 Fe Fumarate/Fa/Mv, Min Comb#15 Cap (Hemocyte Plus) PO 1 each QDAY NADIA Administration Ondansetron HCl 4 mg 08/24/20 22:12 Ondansetron 4 Mg/2 Ml Inj IV Q8H PRN Nausea And Vomiting Oxycodone/Acetaminophen 1 tab 08/24/20 22:23 09/12/20 22:31 Oxycodone /Acetaminophen 5-325mg Tab PO 1 tab BID PRN Administration Pain , Severe (7-10) Pantoprazole Sodium 40 mg 08/25/20 10:00 09/13/20 09:27 Pantoprazole 40 Mg Tab PO 40 mg QDAY NADIA Administration Polyethylene Glycol 17 gm 08/28/20 10:00 09/13/20 09:26 Polyethylene Glycol 3350 17 Gm Powder PO Not Given QDAY NADIA Prednisone 20 mg 09/10/20 12:00 09/13/20 09:25 Prednisone 20 Mg Tab PO 20 mg QDAY NADIA Administration Sodium Chloride 10 ml 08/25/20 10:00 09/13/20 09:28 Sodium Chloride 0.9% 10 Ml Flush Syringe IV 10 ml BID NADIA Administration Sodium Chloride 10 ml 08/24/20 22:12 Sodium Chloride 0.9% 10 Ml Flush Syringe IV PRN PRN LINE FLUSH Tramadol HCl 50 mg 08/24/20 22:23 09/09/20 01:47 Tramadol 50 Mg Tab PO 50 mg Q6HR PRN Administration Pain, Moderate (4-6) Nutrition/Malnutrition Assess - Dietary Evaluation Nutrition/Malnutrition Findings: Nutrition Notes Start: 08/25/20 08:25 Freq: Status: Active Protocol: Document 09/11/20 15:19 ERWIN (Rec: 09/11/20 15:26 ERWIN [id number]) Nutrition Notes Initial or Follow up Reassessment Current Diagnosis COPD,Hypertension,Respiratory Failure Other Pertinent Diagnosis HIV Current Diet Cardiac/Consistent CHO + Ensure Clear 4 times daily Labs/Tests CO2 - 48 Pertinent Medications Prednisone Height 5 ft 5 in Weight 48.7 kg [place] Body Weight (kg) 61.81 BMI 17.9 Weight Status Underweight Subjective/Other Information Pt reports poor appetite. Only 3 breakfast intakes recorded since last assessment (average: 58%). He did not eat lunch today; drank a little of the Ensure Clear ( observed 3 containers on bedside table - a little consumed from each). Pt awaiting placement. Burn Absent Trauma Absent #2 Nutrition Diagnosis Malnutrition Diagnosis Progress(for reassessment Continues documentation) #1 Nutrition Diagnosis Inadequate oral intake Diagnosis Progress(for reassessment Continues documentation) Is patient on ventilator? No Is Patient Ambulatory and/or Out of Bed No REE-([facility]-confined to bed) 1444.308 Kcal/Kg value to use for calculation 35 Approximate Energy Requirements Using 1705 kcal/Kg Calculation Used for Recommendations Kcal/kg Additional Notes Pro needs 1.2-1.5g/k-73g/ day Fluid needs 1ml/kcal Nutrition Intervention Change Diet Order: Continue current diet order Add Supplement/Snack (indicate name/kcal Ensure Clear BID /protein ) Provides kCal: 480 Provides Protein (gm) 16 Goal #1 PO intake of meals plus ONS to meet at least 75% energy and pro needs Goal #2 Wt maintenance and/or gain Follow-Up By: 09/14/20 Additional Comments F/U: intakes (meals, ONS)
[2020-09-13] MEDS: MONTELUKAST 10 MG TAB PO SCH (20:34)
[2020-09-13] MEDS: MIRTAZAPINE 15 MG TAB PO SCH (20:34)
[2020-09-14] MEDS: IPRATROPIUM 0.02% NEBU 2.5 ML IH SCH ×4 (00:30→20:21)
[2020-09-14] MEDS: LEVALBUTEROL 0.63 MG/3 ML NEBU IH SCH ×3 (00:30→15:29)
[2020-09-14] MEDS: HEPARIN 5,000 UNIT/1 ML VIAL SUB-Q SCH ×4 (05:12→22:50)
[2020-09-14] MEDS: MIRTAZAPINE 15 MG TAB PO SCH ×2 (05:14→22:50)
[2020-09-14] MEDS: MONTELUKAST 10 MG TAB PO SCH ×2 (05:14→22:50)
[2020-09-14] MEDS: CALCIUM CARBONATE 500 MG TAB CHEW PO SCH ×3 (08:24→21:35)
--- NOTE | 2020-09-14 08:42 | Progress Note ---
Assessment and Plan Assessment and plan: I had P2P conversation with [employer] insurance physician; Discussed patient's condition in detail treatment plan tests and reports discharge planning Recommendations of PT OT for SNF placement, the physician informed that patient does not meet the criteria for SNF placement Hence could not approve, recommended long-term care. I conveyed this information to the case management Ms. Ha --history of HIV infection for many years; Asymptomatic for many years, not on antiretrovirals Patient follow-up private ID/health department as needed --SIRS; without organ dysfunction, present on admission --General debility; Physical therapy, Occupational Therapy, rehabilitation PT OT recommended SNF placement --Paroxysmal atrial fibrillation; Patient is in sinus rhythm today with heart rate in 70s No A. fib last 24 hours Cardiology following Continue beta-blockers, not a candidate for anticoagulation Due to severe anemia requiring blood transfusion --Acute exacerbation of COPD ; Patient is a current smoker Continue nasal cannula oxygen titrate O2 sats to more than 90% --Acute hypoxic respiratory failure ; requiring BiPAP Continue oxygen via nasal cannula 4 L today Titrate O2 sats more than 90%, BiPAP as needed --Leukocytosis- resolved --Hypertension; moderate control Continue current antihypertensives, as needed medications --Normocytic anemia Hemoglobin is down to 8.0 > 7.6 this morning Closely monitor H&H transfuse as needed --Hyperglycemia -likely secondary to steroids HD A1c 5.8, Accu-Chek sliding scale coverage Long-acting insulin if needed --Ongoing tobacco abuse Patient counseled on tobacco cessation Nicotine patch as needed --Mild to moderate malnutrition/hypoalbuminemia Nutrition supplements and supportive care --DVT prophylaxis; Heparin subcu/SCDs Physical therapy/Occupational Therapy evaluation and treatment DC planning per case management OT recommended subacute rehab /SNF placement. Awaiting placement, patient is medically stable for discharge SNF needs PT OT updates 64-year-old male with past medical history of COPD, hypertension asthma PE was admitted through emergency room with shortness of breath of 1 day duration morning. Patient was noted to be hypoxemic requiring supplemental oxygen, and work-up is consistent with acute exacerbation of COPD and acute on chronic hypoxic respiratory failure. Requiring BiPAP and supplemental oxygen. Patient continues to be hypoxemic requiring supplemental oxygen. Patient symptoms slowly but gradually improved, however patient is debilitated with her underlying medical condition of chronic hypoxia, HIV disease Electrolyte imbalances, chronic alcohol use. Patient was evaluated by PT OT, strongly recommended SNF placement, however the insurance did not approve Saying that patient does not have the criteria for SNF placement Recommended long-term care placement instead 08/29; patient requiring BiPAP, severely short of breath, pulmonary following; Wean as tolerated ; requiring intermittent BiPAP especially at night This morning patient is on 4 L of nasal cannula oxygen Patient already has home oxygen at 3 L Pulmonary following 08/31/2020; patient continues to be in shortness of breath Unable to keep his oxygen, confused at times BiPAP as needed, pulmonary following Recommend placement SNF, Check for mccracken PCR PT OT evaluation 09/01/2020; on 4 L of nasal oxygen Awaiting placement Resumed service; 09/05/2020; I checked with monitor room, patient is in sinus heart rate in 70s No A. fib last 24 hours Awaiting subacute rehab placement 09/06/2020; hypokalemia, hypocalcemia Replenished with KCl, calcium gluconate and calcium carbonate Follow electrolytes 09/07/2020; follow today's labs Awaiting placement 09/08/2020; patient is clinically stable for discharge Awaiting subacute rehab placement 09/09/2020; awaiting placement 09/10/2020; no new complaints, stable for discharge Awaiting placement 09/11/2020; pulmonary cleared for discharge Pending placement DC planning per case management 09/12/2020; Pending placement SNF needs updated PT OT evaluations 09/13/2020; patient had PT OT updates Recommend SNF placement 09/14/2020; I had P2P with Dr. López[Nancie] at now insurance physician Discussed in detail patient's condition treatment and discharge planning The physician said patient does not fit the criteria for SNF, did not approve SNF placement However recommended to consider long-term care. I informed case management Ms. Ha the above conversation DC planning per case management Patient is medically stable for discharge History Interval history: I have seen and examined the patient at the bedside Patient's chart and medications reviewed Patient is lying in the bed alert and awake Minimally communicative Not in acute distress Vital signs noted Hospitalist Physical - Constitutional Vitals: Temp Pulse Resp BP Pulse Ox 98.0 F 71 18 113/56 83 L 09/14/20 04:10 09/14/20 04:10 09/14/20 04:10 09/14/20 04:10 09/14/20 04:10 General appearance: Present: no acute distress, well-nourished - EENT Eyes: Present: PERRL, EOM intact - Neck Neck: Present: supple, normal ROM - Respiratory Respiratory effort: normal Respiratory: bilateral: diminished, negative: rales, rhonchi, wheezing - Cardiovascular Rhythm: regular Heart Sounds: Present: S1 & S2 - Extremities Extremities: no ischemia, No edema - Abdominal General gastrointestinal: soft, non-tender, non-distended, normal bowel sounds - Integumentary Integumentary: Present: clear, warm - Psychiatric Psychiatric: appropriate mood/affect, cooperative - Neurologic Neurologic: CNII-XII intact, moves all extremities HEART Score - HEART Score Troponin: Troponin T < 0.010 ng/mL (0.00-0.029) 09/04/20 05:53 Results - Labs CBC & Chem 7: 09/05/20 04:56 09/11/20 04:07 Labs: Laboratory Last Values WBC 7.7 K/mm3 (4.5-11.0) 09/05/20 04:56 RBC 2.88 M/mm3 (3.65-5.03) L 09/05/20 04:56 Hgb 8.6 gm/dl (11.8-15.2) L 09/05/20 04:56 Hct 25.3 % (35.5-45.6) L 09/05/20 04:56 MCV 88 fl (84-94) 09/05/20 04:56 MCH 30 pg (28-32) 09/05/20 04:56 MCHC 34 % (32-34) 09/05/20 04:56 RDW 19.6 % (13.2-15.2) H 09/05/20 04:56 Plt Count 143 K/mm3 (140-440) 09/05/20 04:56 Add Manual Diff Complete 08/25/20 07:21 Total Counted 100 08/25/20 07:21 Seg Neutrophils % System Software Developer 08/25/20 07:21 Seg Neuts % (Manual) 96.0 % (40.0-70.0) H 08/25/20 07:21 Lymphocytes % (Manual) 3.0 % (13.4-35.0) L 08/25/20 07:21 Monocytes % (Manual) 2.0 % (0.0-7.3) 08/24/20 19:29 Myelocytes % 1.0 % 08/25/20 07:21 Nucleated RBC % Not Reportable 08/25/20 07:21 Seg Neutrophils # Man 4.8 K/mm3 (1.8-7.7) 08/25/20 07:21 Band Neutrophils # 0.0 K/mm3 08/25/20 07:21 Abs Lymphs (Manual) 98 cells/uL (850-3900) L 09/04/20 05:53 Lymphocytes # (Manual) 0.2 K/mm3 (1.2-5.4) L 08/25/20 07:21 Abs React Lymphs (Man) 0.0 K/mm3 08/25/20 07:21 Monocytes # (Manual) 0.0 K/mm3 (0.0-0.8) 08/25/20 07:21 Eosinophils # (Manual) 0.0 K/mm3 (0.0-0.4) 08/25/20 07:21 Basophils # (Manual) 0.0 K/mm3 (0.0-0.1) 08/25/20 07:21 Metamyelocytes # 0.0 K/mm3 08/25/20 07:21 Myelocytes # 0.1 K/mm3 08/25/20 07:21 Promyelocytes # 0.0 K/mm3 08/25/20 07:21 Blast Cells # 0.0 K/mm3 08/25/20 07:21 WBC Morphology Not Reportable 08/25/20 07:21 Hypersegmented Neuts Not Reportable 08/25/20 07:21 Hyposegmented Neuts Not Reportable 08/25/20 07:21 Hypogranular Neuts Not Reportable 08/25/20 07:21 Smudge Cells Not Reportable 08/25/20 07:21 Toxic Granulation Not Reportable 08/25/20 07:21 Toxic Vacuolation Not Reportable 08/25/20 07:21 Dohle Bodies Not Reportable 08/25/20 07:21 Pelger-Huet Anomaly Not Reportable 08/25/20 07:21 Ruma Rods Not Reportable 08/25/20 07:21 Platelet Estimate Consistent w auto 08/25/20 07:21 Clumped Platelets Not Reportable 08/25/20 07:21 Plt Clumps, EDTA Not Reportable 08/25/20 07:21 Large Platelets Not Reportable 08/25/20 07:21 Giant Platelets Not Reportable 08/25/20 07:21 Platelet Satelliting Not Reportable 08/25/20 07:21 Plt Morphology Comment Not Reportable 08/25/20 07:21 RBC Morphology Not Reportable 08/25/20 07:21 Dimorphic RBCs Not Reportable 08/25/20 07:21 Polychromasia Not Reportable 08/25/20 07:21 Hypochromasia 1+ 08/25/20 07:21 Poikilocytosis 1+ 08/25/20 07:21 Anisocytosis 1+ 08/25/20 07:21 Microcytosis Not Reportable 08/25/20 07:21 Macrocytosis Not Reportable 08/25/20 07:21 Spherocytes Not Reportable 08/25/20 07:21 Pappenheimer Bodies Not Reportable 08/25/20 07:21 Sickle Cells Not Reportable 08/25/20 07:21 Target Cells Not Reportable 08/25/20 07:21 Tear Drop Cells Not Reportable 08/25/20 07:21 Ovalocytes 1+ 08/25/20 07:21 Helmet Cells Not Reportable 08/25/20 07:21 [place] Bodies Not Reportable 08/25/20 07:21 [place] Rings Not Reportable 08/25/20 07:21 Don Cells Not Reportable 08/25/20 07:21 Bite Cells Not Reportable 08/25/20 07:21 Crenated Cell Not Reportable 08/25/20 07:21 Elliptocytes 2+ 08/25/20 07:21 Acanthocytes (Spur) 1+ 08/25/20 07:21 Rouleaux Not Reportable 08/25/20 07:21 Hemoglobin C Crystals Not Reportable 08/25/20 07:21 Schistocytes Not Reportable 08/25/20 07:21 Malaria parasites Not Reportable 08/25/20 07:21 Ric Bodies Not Reportable 08/25/20 07:21 Hem Pathologist Commnt No 08/25/20 07:21 ABG pH 7.316 (7.320-7.450) L 08/28/20 11:00 POC ABG pCO2 68.0 mmHg (32.0-48.0) H 08/28/20 11:00 POC ABG pO2 75.4 mmHg (83-108) L 08/28/20 11:00 POC ABG HCO3 33.9 08/28/20 11:00 ABG O2 Saturation 93.6 (0-100) 08/28/20 11:00 POC ABG Base Excess 6.6 08/28/20 11:00 ABG Hemoglobin 8.3 (12.0-17.5) L 08/28/20 11:00 ABG Oxyhemoglobin 92.5 (94-98) L 08/28/20 11:00 ABG Methemoglobin 0.3 (0.0-1.5) 08/28/20 11:00 ABG Sodium 143.2 mmol/L (136.0-145.0) 08/28/20 11:00 ABG Potassium 3.8 mmol/L (3.40-4.50) 08/28/20 11:00 ABG Chloride 103.0 mmol/L (98-107) 08/28/20 11:00 ABG Glucose 302 mg/dL (65-95) H 08/28/20 11:00 Carboxyhemoglobin 0.9 (0.5-1.5) 08/28/20 11:00 FiO2 % 40.0 08/28/20 11:00 Sodium 145 mmol/L (137-145) 09/11/20 04:07 Potassium 3.6 mmol/L (3.6-5.0) 09/11/20 04:07 Chloride 95.1 mmol/L (98-107) L 09/11/20 04:07 Carbon Dioxide 48 mmol/L (22-30) H* 09/11/20 04:07 Anion Gap 6 mmol/L 09/11/20 04:07 BUN 12 mg/dL (9-20) 09/11/20 04:07 Creatinine 0.8 mg/dL (0.8-1.3) 09/11/20 04:07 Estimated GFR > 60 ml/min 09/11/20 04:07 BUN/Creatinine Ratio 15 % 09/11/20 04:07 Glucose 135 mg/dL (75-100) H 09/11/20 04:07 POC Glucose 92 mg/dL (70-105) 09/14/20 07:33 Hemoglobin A1c 5.8 % (4-6) 08/25/20 07:27 Calcium 6.1 mg/dL (8.4-10.2) L 09/11/20 04:07 Magnesium 1.70 mg/dL (1.7-2.3) 09/11/20 04:07 Iron 58 ug/dL (49-181) 09/04/20 05:53 TIBC 214 mcg/dL (250-450) L 09/04/20 05:53 Total Bilirubin 0.40 mg/dL (0.1-1.2) 08/24/20 19:29 AST 21 units/L (5-40) 08/24/20 19:29 ALT 36 units/L (7-56) 08/24/20 19:29 Alkaline Phosphatase 154 units/L (35-129) H 08/24/20 19:29 Troponin T < 0.010 ng/mL (0.00-0.029) 09/04/20 05:53 Total Protein 6.5 g/dL (6.3-8.2) 08/24/20 19:29 Albumin 3.4 g/dL (3.9-5) L 08/24/20 19:29 Albumin/Globulin Ratio 1.1 % 08/24/20 19:29 Arterial Blood Glucose 302 mg/dL (65-95) H 08/28/20 11:00 Arterial Blood Ionized Calcium 3.8 mg/dL (4.6-5.3) L 08/28/20 11:00 Lymph Enumerat CD4/CD8 0.68 (0.86-5.00) L 09/04/20 05:53 % CD3 Cells 51 % (57-85) L 09/04/20 05:53 Absolute CD3 Count 50 cells/uL (840-3060) L 09/04/20 05:53 % CD4 Cells 20 % (30-61) L 09/04/20 05:53 Absolute CD4 Count 20 cells/uL (490-1740) L 09/04/20 05:53 % CD8 Cells 30 % (12-42) 09/04/20 05:53 Absolute CD8 Count 29 cells/uL (180-1170) L 09/04/20 05:53 % CD19 Cells 17 % (6-29) 09/04/20 05:53 Absolute CD19 Count 17 cells/uL (110-660) L 09/04/20 05:53 Coronavirus (PCR) Negative (Negative) 09/01/20 Unknown Blood Type A POSITIVE 09/03/20 09:56 Antibody Screen Negative 09/03/20 09:56 Crossmatch See Detail 09/03/20 09:56 [place]/IV: Voiding Method Urinal Active Medications - Current Medications Current Medications: Generic Name Dose Route Start Last Admin Trade Name Freq PRN Reason Stop Dose Admin Acetaminophen 650 mg 08/24/20 22:12 09/13/20 20:35 Acetaminophen 325 Mg Tab PO 650 mg Q4H PRN Administration Pain MILD(1-3)/Fever >100.5/KOENIG Alprazolam 0.25 mg 08/30/20 11:30 09/12/20 22:28 Alprazolam 0.25 Mg Tab PO 0.25 mg Q8H PRN Administration Anxiety Arformoterol Tartrate 15 mcg 08/25/20 20:00 09/13/20 19:49 Arformoterol 15 Mcg/2 Ml Nebu IH 15 mcg Q12HRT NADIA Administration Aspirin 81 mg 08/25/20 10:00 09/13/20 09:25 Aspirin Ec 81 Mg Tab PO 81 mg QDAY NADIA Administration Atorvastatin Calcium 40 mg 08/25/20 22:00 09/14/20 05:15 Atorvastatin 40 Mg Tab PO Not Given QHS NADIA Budesonide 0.5 mg 08/25/20 08:00 09/13/20 19:49 Budesonide 0.5 Mg/2 Ml Nebu IH 0.5 mg Q12HRT NADIA Administration Calcium Carbonate/Glycine 500 mg 09/06/20 09:00 09/13/20 20:35 Calcium Carbonate 500 Mg Tab Chew PO 500 mg TID NADIA Administration Carvedilol 6.25 mg 09/02/20 12:00 09/13/20 22:13 Carvedilol 6.25 Mg Tab PO Not Given BID NADIA Guaifenesin 400 mg 08/29/20 13:00 08/30/20 05:33 Guaifenesin 200 Mg Tab PO 400 mg Q4HR PRN Administration Cough Heparin Sodium (Porcine) 5,000 unit 08/25/20 06:00 09/14/20 05:13 Heparin 5,000 Unit/1 Ml Vial SUB-Q Not Given Q8HR NADIA Hydralazine HCl 10 mg 08/24/20 22:14 08/31/20 13:40 Hydralazine 20 Mg/1 Ml Inj IV 10 mg Q6H PRN Administration SBP>/=160; DBP >/=100 Insulin Human Isoph/Insulin Regular 5 unit 09/10/20 17:00 09/13/20 18:04 Insulin Nph/Regular 70/30 Inj SUB-Q 5 unit BIDDIAB NADIA Administration Insulin Human Lispro 0 unit 08/25/20 22:00 09/13/20 22:14 Insulin Lispro 100 Unit/Ml SUB-Q Not Given QHS [facility] Protocol Ipratropium Poneto 0.5 mg 09/02/20 16:00 09/14/20 00:30 Ipratropium 0.02% Nebu 2.5 Ml IH 0.5 mg Q8HRT NADIA Administration Levalbuterol HCl 0.63 mg 09/01/20 18:00 09/14/20 00:30 Levalbuterol 0.63 Mg/3 Ml Nebu IH 0.63 mg Q8HRT NADIA Administration Mirtazapine 7.5 mg 08/25/20 22:00 09/14/20 05:14 Mirtazapine 15 Mg Tab PO Not Given QHS [facility] Montelukast Sodium 10 mg 08/25/20 22:00 09/14/20 05:14 Montelukast 10 Mg Tab PO Not Given QHS [facility] Multivitamins 1 each 09/04/20 10:00 09/13/20 09:25 Multivitamins ,Therapeutic Tab PO 1 each QDAY [facility] Administration Multivitamins/Iron 1 each 09/04/20 10:00 09/13/20 09:25 Fe Fumarate/Fa/Mv, Min Comb#15 Cap (Hemocyte Plus) PO 1 each QDAY [facility] Administration Ondansetron HCl 4 mg 08/24/20 22:12 Ondansetron 4 Mg/2 Ml Inj IV Q8H PRN Nausea And Vomiting Oxycodone/Acetaminophen 1 tab 08/24/20 22:23 09/12/20 22:31 Oxycodone /Acetaminophen 5-325mg Tab PO 1 tab BID PRN Administration Pain , Severe (7-10) Pantoprazole Sodium 40 mg 08/25/20 10:00 09/13/20 09:27 Pantoprazole 40 Mg Tab PO 40 mg QDAY NADIA Administration Polyethylene Glycol 17 gm 08/28/20 10:00 09/13/20 09:26 Polyethylene Glycol 3350 17 Gm Powder PO Not Given QDAY NADIA Prednisone 20 mg 09/10/20 12:00 09/13/20 09:25 Prednisone 20 Mg Tab PO 20 mg QDAY NADIA Administration Sodium Chloride 10 ml 08/25/20 10:00 09/14/20 05:15 Sodium Chloride 0.9% 10 Ml Flush Syringe IV Not Given BID NADIA Sodium Chloride 10 ml 08/24/20 22:12 Sodium Chloride 0.9% 10 Ml Flush Syringe IV PRN PRN LINE FLUSH Tramadol HCl 50 mg 08/24/20 22:23 09/09/20 01:47 Tramadol 50 Mg Tab PO 50 mg Q6HR PRN Administration Pain, Moderate (4-6) Nutrition/Malnutrition Assess - Dietary Evaluation Nutrition/Malnutrition Findings: Nutrition Notes Start: 08/25/20 08:25 Freq: Status: Active Protocol: Document 09/11/20 15:19 ERWIN (Rec: 09/11/20 15:26 [facility] [id number]) Nutrition Notes Initial or Follow up Reassessment Current Diagnosis COPD,Hypertension,Respiratory Failure Other Pertinent Diagnosis HIV Current Diet Cardiac/Consistent CHO + Ensure Clear 4 times daily Labs/Tests CO2 - 48 Pertinent Medications Prednisone Height 5 ft 5 in Weight 48.7 kg [place] Body Weight (kg) 61.81 BMI 17.9 Weight Status Underweight Subjective/Other Information Pt reports poor appetite. Only 3 breakfast intakes recorded since last assessment (average: 58%). He did not eat lunch today; drank a little of the Ensure Clear ( observed 3 containers on bedside table - a little consumed from each). Pt awaiting placement. Burn Absent Trauma Absent #2 Nutrition Diagnosis Malnutrition Diagnosis Progress(for reassessment Continues documentation) #1 Nutrition Diagnosis Inadequate oral intake Diagnosis Progress(for reassessment Continues documentation) Is patient on ventilator? No Is Patient Ambulatory and/or Out of Bed No REE-([facility]-confined to bed) 1444.308 Kcal/Kg value to use for calculation 35 Approximate Energy Requirements Using 1705 kcal/Kg Calculation Used for Recommendations Kcal/kg Additional Notes Pro needs 1.2-1.5g/k-73g/ day Fluid needs 1ml/kcal Nutrition Intervention Change Diet Order: Continue current diet order Add Supplement/Snack (indicate name/kcal Ensure Clear BID /protein ) Provides kCal: 480 Provides Protein (gm) 16 Goal #1 PO intake of meals plus ONS to meet at least 75% energy and pro needs Goal #2 Wt maintenance and/or gain Follow-Up By: 09/14/20 Additional Comments F/U: intakes (meals, ONS)
[2020-09-14] MEDS: BUDESONIDE 0.5 MG/2 ML NEBU IH SCH ×2 (08:52→20:21)
[2020-09-14] MEDS: ARFORMOTEROL 15 MCG/2 ML NEBU IH SCH ×2 (08:52→20:21)
[2020-09-14] MEDS: POLYETHYLENE GLYCOL 3350 17 GM POWDER PO SCH (10:29)
--- NOTE | 2020-09-14 11:01 | XRay Report ---
CHEST 2 VIEWS INDICATION / CLINICAL INFORMATION: COPD exacerbation. COMPARISON: 07/12/2020 FINDINGS: SUPPORT DEVICES: None. HEART / MEDIASTINUM: No significant abnormality. LUNGS / PLEURA: There is increased opacity within the left lower lung with the lingular lobe favored No pneumothorax. ADDITIONAL FINDINGS: No significant additional findings. IMPRESSION: 1. Opacity within the left lower lung which is concerning for infectious process in the appropriate c linical setting Signer Name: Cuong Hidalgo DO Signed: 09/14/2020 10:56 AM Workstation Name: [employer]
[2020-09-14] MEDS: FE FUMARATE/FA/MV, MIN COMB#15 CAP (HEMOCYTE PLUS) PO SCH (11:18)
[2020-09-14] MEDS: MULTIVITAMINS ,THERAPEUTIC TAB PO SCH (11:19)
[2020-09-14] MEDS: ASPIRIN EC 81 MG TAB PO SCH (11:20)
[2020-09-14] MEDS: carvediloL 6.25 MG TAB PO SCH ×2 (11:22→22:50)
[2020-09-14] MEDS: predniSONE 20 MG TAB PO SCH (11:22)
[2020-09-14] MEDS: INSULIN NPH/REGULAR 70/30 INJ SUB-Q SCH ×2 (12:11→18:26)
[2020-09-14] MEDS: oxyCODONE /ACETAMINOPHEN 5-325MG TAB PO PRN (12:45)
--- NOTE | 2020-09-14 14:46 | Progress Note ---
Assessment and Plan Acute hypoxemic respiratory failure Acute COPD exacerbation ANGELIC GERD (gastroesophageal reflux disease) HIV (human immunodeficiency virus infection) Hypertension Cocaine use Tobacco use disorder - ART for HIV per ID recommendations - no new issues, continue care as below; - prn CXR's & ABG's at this point - discharge planning ok pulmonary-rodriguez - resume low dose Prednisone for severe COPD exacerbation - continue to wean supplemental oxygen to keep O2 sats > 90% - continue Bronchodilators (HEIDI & LABA) with pulm hygiene per RT - continue inhaled corticosteroids - avoid nephrotoxins, renally dose all medications - continue mobility protocols to prevent pressure ulcers - PT/OT as tolerated - Wound care per RN/WCT - continue accuchecks with glycemic control per SSI for target blood glucose < 1 80 mg/dL - tobacco abstinence strongly counseled at the bedside - home oxygen evaluation at discharge - GI & VTE prophylaxis - Flu & pneumovax per protocol - Pulmonary out patient follow up for PFTs and optimization of respiratory status - continue other care per attending / other consultants - prn analgesia per pain score ... re-evaluate in am & prn Subjective Date of service: 09/14/20 Principal diagnosis: Ac hypoxemic resp failure; AE-COPD; ANGELIC; HIV +ve; HTN; Cocaine Use Interval history: Patient is seen today for: Acute hypoxemic respiratory failure; AE-COPD; ANGELIC; HIV infection; HTN; Cocaine use; Tobacco use disorder Seen and examined at bedside; 24hour events reviewed; nursing and respiratory care staff consulted; no adverse overnight events reported to me; resting in bed; remains on supplemental oxygen; denies acute chest pain or palpitations Objective Vital Signs - 12hr 09/14/20 09/14/20 09/14/20 04:10 08:00 08:10 Temperature 98.0 F 97.8 F Pulse Rate 71 86 Pulse Rate [ 90 Bilateral] Respiratory 18 20 Rate Respiratory 22 Rate [Bilateral ] Blood Pressure 113/56 126/72 O2 Sat by Pulse 83 L 94 Oximetry 09/14/20 10:00 Temperature Pulse Rate Pulse Rate [ Bilateral] Respiratory Rate Respiratory Rate [Bilateral ] Blood Pressure O2 Sat by Pulse 99 Oximetry Constitutional: no acute distress, other (mildly increased work of breathing at rest) Eyes: non-icteric ENT: oropharynx moist Neck: supple, no JVD Effort: mildly labored Ascultation: Bilateral: diminished breath sounds, rhonchi, other (Prolonged expiratory phase.) Percussion: Bilateral: not dull Cardiovascular: regular rate and rhythm Gastrointestinal: normoactive bowel sounds, soft, non-tender, non-distended Integumentary: normal Extremities: no cyanosis, no edema, pulses normal, no ischemia or petechiae Neurologic: normal mental status, non-focal exam, pupils equal and round, motor strength normal and Psychiatric: mood appropriate, affect normal CBC and BMP: 09/15/20 10:43 09/15/20 04:18 ABG, PT/INR, D-dimer: ABG ABG pH 7.471 (7.320-7.450) H 09/14/20 10:27 POC ABG pCO2 62.3 mmHg (32.0-48.0) H 09/14/20 10:27 POC ABG pO2 96.7 mmHg (83-108) 09/14/20 10:27 POC ABG HCO3 44.4 09/14/20 10:27 ABG O2 Saturation 97.3 (0-100) 09/14/20 10:27 Abnormal lab findings: Abnormal Labs 08/24/20 08/24/20 08/25/20 19:29 19:29 07:00 WBC RBC 3.36 L Hgb 9.7 L Hct 28.5 L MCH MCHC RDW 20.6 H Seg Neuts % (Manual) 97.0 H Lymphocytes % (Manual) 1.0 L Seg Neutrophils # Man 10.2 H Abs Lymphs (Manual) Lymphocytes # (Manual) 0.1 L ABG pH POC ABG pCO2 POC ABG pO2 ABG Hemoglobin ABG Oxyhemoglobin ABG Potassium ABG Chloride ABG Glucose Sodium Potassium 3.3 L Chloride Carbon Dioxide BUN Glucose 121 H POC Glucose 211 H Calcium 7.6 L TIBC Alkaline Phosphatase 154 H Albumin 3.4 L Arterial Blood Glucose Arterial Blood Ionized Calcium Lymph Enumerat CD4/CD8 % CD3 Cells Absolute CD3 Count % CD4 Cells Absolute CD4 Count Absolute CD8 Count Absolute CD19 Count Crossmatch 08/25/20 08/25/20 08/25/20 07:21 07:21 12:06 WBC RBC 3.13 L Hgb 8.9 L Hct 26.5 L MCH MCHC RDW 20.6 H Seg Neuts % (Manual) 96.0 H Lymphocytes % (Manual) 3.0 L Seg Neutrophils # Man Abs Lymphs (Manual) Lymphocytes # (Manual) 0.2 L ABG pH POC ABG pCO2 POC ABG pO2 ABG Hemoglobin ABG Oxyhemoglobin ABG Potassium ABG Chloride ABG Glucose Sodium Potassium Chloride Carbon Dioxide 31 H BUN Glucose 208 H POC Glucose 162 H Calcium 7.4 L TIBC Alkaline Phosphatase Albumin Arterial Blood Glucose Arterial Blood Ionized Calcium Lymph Enumerat CD4/CD8 % CD3 Cells Absolute CD3 Count % CD4 Cells Absolute CD4 Count Absolute CD8 Count Absolute CD19 Count Crossmatch 08/25/20 08/25/20 08/26/20 17:01 21:52 05:09 WBC 14.9 H RBC 3.11 L Hgb 8.9 L Hct 26.7 L MCH MCHC RDW 20.6 H Seg Neuts % (Manual) Lymphocytes % (Manual) Seg Neutrophils # Man Abs Lymphs (Manual) Lymphocytes # (Manual) ABG pH POC ABG pCO2 POC ABG pO2 ABG Hemoglobin ABG Oxyhemoglobin ABG Potassium ABG Chloride ABG Glucose Sodium Potassium Chloride Carbon Dioxide BUN Glucose POC Glucose 158 H 175 H Calcium TIBC Alkaline Phosphatase Albumin Arterial Blood Glucose Arterial Blood Ionized Calcium Lymph Enumerat CD4/CD8 % CD3 Cells Absolute CD3 Count % CD4 Cells Absolute CD4 Count Absolute CD8 Count Absolute CD19 Count Crossmatch 08/26/20 08/26/20 08/26/20 05:09 07:21 11:21 WBC RBC Hgb Hct MCH MCHC RDW Seg Neuts % (Manual) Lymphocytes % (Manual) Seg Neutrophils # Man Abs Lymphs (Manual) Lymphocytes # (Manual) ABG pH POC ABG pCO2 POC ABG pO2 ABG Hemoglobin ABG Oxyhemoglobin ABG Potassium ABG Chloride ABG Glucose Sodium Potassium Chloride Carbon Dioxide 31 H BUN 21 H Glucose 183 H POC Glucose 149 H 145 H Calcium 7.0 L TIBC Alkaline Phosphatase Albumin Arterial Blood Glucose Arterial Blood Ionized Calcium Lymph Enumerat CD4/CD8 % CD3 Cells Absolute CD3 Count % CD4 Cells Absolute CD4 Count Absolute CD8 Count Absolute CD19 Count Crossmatch 08/26/20 08/26/20 08/27/20 16:49 21:19 04:41 WBC 11.5 H RBC 2.93 L Hgb 8.0 L Hct 25.2 L MCH 27 L MCHC RDW 21.0 H Seg Neuts % (Manual) Lymphocytes % (Manual) Seg Neutrophils # Man Abs Lymphs (Manual) Lymphocytes # (Manual) ABG pH POC ABG pCO2 POC ABG pO2 ABG Hemoglobin ABG Oxyhemoglobin ABG Potassium ABG Chloride ABG Glucose Sodium Potassium Chloride Carbon Dioxide BUN Glucose POC Glucose 177 H 144 H Calcium TIBC Alkaline Phosphatase Albumin Arterial Blood Glucose Arterial Blood Ionized Calcium Lymph Enumerat CD4/CD8 % CD3 Cells Absolute CD3 Count % CD4 Cells Absolute CD4 Count Absolute CD8 Count Absolute CD19 Count Crossmatch 08/27/20 08/27/20 08/27/20 04:41 07:25 07:30 WBC RBC Hgb Hct MCH MCHC RDW Seg Neuts % (Manual) Lymphocytes % (Manual) Seg Neutrophils # Man Abs Lymphs (Manual) Lymphocytes # (Manual) ABG pH POC ABG pCO2 POC ABG pO2 ABG Hemoglobin ABG Oxyhemoglobin ABG Potassium ABG Chloride ABG Glucose Sodium Potassium Chloride Carbon Dioxide 35 H BUN 24 H Glucose 173 H POC Glucose 153 H 143 H Calcium 7.3 L TIBC Alkaline Phosphatase Albumin Arterial Blood Glucose Arterial Blood Ionized Calcium Lymph Enumerat CD4/CD8 % CD3 Cells Absolute CD3 Count % CD4 Cells Absolute CD4 Count Absolute CD8 Count Absolute CD19 Count Crossmatch 08/27/20 08/27/20 08/27/20 11:27 15:49 21:17 WBC RBC Hgb Hct MCH MCHC RDW Seg Neuts % (Manual) Lymphocytes % (Manual) Seg Neutrophils # Man Abs Lymphs (Manual) Lymphocytes # (Manual) ABG pH POC ABG pCO2 POC ABG pO2 ABG Hemoglobin ABG Oxyhemoglobin ABG Potassium ABG Chloride ABG Glucose Sodium Potassium Chloride Carbon Dioxide BUN Glucose POC Glucose 236 H 184 H 144 H Calcium TIBC Alkaline Phosphatase Albumin Arterial Blood Glucose Arterial Blood Ionized Calcium Lymph Enumerat CD4/CD8 % CD3 Cells Absolute CD3 Count % CD4 Cells Absolute CD4 Count Absolute CD8 Count Absolute CD19 Count Crossmatch 08/28/20 08/28/20 08/28/20 05:55 05:55 07:25 WBC RBC 2.58 L Hgb 7.6 L Hct 22.1 L MCH MCHC 35 H RDW 20.3 H Seg Neuts % (Manual) Lymphocytes % (Manual) Seg Neutrophils # Man Abs Lymphs (Manual) Lymphocytes # (Manual) ABG pH POC ABG pCO2 POC ABG pO2 ABG Hemoglobin ABG Oxyhemoglobin ABG Potassium ABG Chloride ABG Glucose Sodium Potassium 3.5 L Chloride Carbon Dioxide BUN 33 H Glucose 183 H POC Glucose 164 H Calcium 6.8 L TIBC Alkaline Phosphatase Albumin Arterial Blood Glucose Arterial Blood Ionized Calcium Lymph Enumerat CD4/CD8 % CD3 Cells Absolute CD3 Count % CD4 Cells Absolute CD4 Count Absolute CD8 Count Absolute CD19 Count Crossmatch 08/28/20 08/28/20 08/28/20 11:00 12:06 15:28 WBC RBC Hgb Hct MCH MCHC RDW Seg Neuts % (Manual) Lymphocytes % (Manual) Seg Neutrophils # Man Abs Lymphs (Manual) Lymphocytes # (Manual) ABG pH 7.316 L POC ABG pCO2 68.0 H POC ABG pO2 75.4 L ABG Hemoglobin 8.3 L ABG Oxyhemoglobin 92.5 L ABG Potassium ABG Chloride ABG Glucose 302 H Sodium Potassium Chloride Carbon Dioxide BUN Glucose POC Glucose 233 H 146 H Calcium TIBC Alkaline Phosphatase Albumin Arterial Blood Glucose 302 H Arterial Blood Ionized Calcium 3.8 L Lymph Enumerat CD4/CD8 % CD3 Cells Absolute CD3 Count % CD4 Cells Absolute CD4 Count Absolute CD8 Count Absolute CD19 Count Crossmatch 08/28/20 08/29/20 08/29/20 21:34 07:26 12:05 WBC RBC Hgb Hct MCH MCHC RDW Seg Neuts % (Manual) Lymphocytes % (Manual) Seg Neutrophils # Man Abs Lymphs (Manual) Lymphocytes # (Manual) ABG pH POC ABG pCO2 POC ABG pO2 ABG Hemoglobin ABG Oxyhemoglobin ABG Potassium ABG Chloride ABG Glucose Sodium Potassium Chloride Carbon Dioxide BUN Glucose POC Glucose 201 H 167 H 253 H Calcium TIBC Alkaline Phosphatase Albumin Arterial Blood Glucose Arterial Blood Ionized Calcium Lymph Enumerat CD4/CD8 % CD3 Cells Absolute CD3 Count % CD4 Cells Absolute CD4 Count Absolute CD8 Count Absolute CD19 Count Crossmatch 08/29/20 08/29/20 08/30/20 16:32 21:56 07:53 WBC RBC Hgb Hct MCH MCHC RDW Seg Neuts % (Manual) Lymphocytes % (Manual) Seg Neutrophils # Man Abs Lymphs (Manual) Lymphocytes # (Manual) ABG pH POC ABG pCO2 POC ABG pO2 ABG Hemoglobin ABG Oxyhemoglobin ABG Potassium ABG Chloride ABG Glucose Sodium Potassium Chloride Carbon Dioxide BUN Glucose POC Glucose 128 H 220 H 286 H Calcium TIBC Alkaline Phosphatase Albumin Arterial Blood Glucose Arterial Blood Ionized Calcium Lymph Enumerat CD4/CD8 % CD3 Cells Absolute CD3 Count % CD4 Cells Absolute CD4 Count Absolute CD8 Count Absolute CD19 Count Crossmatch 08/30/20 08/30/20 08/30/20 11:29 17:32 22:03 WBC RBC Hgb Hct MCH MCHC RDW Seg Neuts % (Manual) Lymphocytes % (Manual) Seg Neutrophils # Man Abs Lymphs (Manual) Lymphocytes # (Manual) ABG pH POC ABG pCO2 POC ABG pO2 ABG Hemoglobin ABG Oxyhemoglobin ABG Potassium ABG Chloride ABG Glucose Sodium Potassium Chloride Carbon Dioxide BUN Glucose POC Glucose 299 H 260 H 196 H Calcium TIBC Alkaline Phosphatase Albumin Arterial Blood Glucose Arterial Blood Ionized Calcium Lymph Enumerat CD4/CD8 % CD3 Cells Absolute CD3 Count % CD4 Cells Absolute CD4 Count Absolute CD8 Count Absolute CD19 Count Crossmatch 08/31/20 08/31/20 08/31/20 07:41 11:26 16:19 WBC RBC Hgb Hct MCH MCHC RDW Seg Neuts % (Manual) Lymphocytes % (Manual) Seg Neutrophils # Man Abs Lymphs (Manual) Lymphocytes # (Manual) ABG pH POC ABG pCO2 POC ABG pO2 ABG Hemoglobin ABG Oxyhemoglobin ABG Potassium ABG Chloride ABG Glucose Sodium Potassium Chloride Carbon Dioxide BUN Glucose POC Glucose 166 H 269 H 265 H Calcium TIBC Alkaline Phosphatase Albumin Arterial Blood Glucose Arterial Blood Ionized Calcium Lymph Enumerat CD4/CD8 % CD3 Cells Absolute CD3 Count % CD4 Cells Absolute CD4 Count Absolute CD8 Count Absolute CD19 Count Crossmatch 08/31/20 09/01/20 09/01/20 20:44 07:40 11:39 WBC RBC Hgb Hct MCH MCHC RDW Seg Neuts % (Manual) Lymphocytes % (Manual) Seg Neutrophils # Man Abs Lymphs (Manual) Lymphocytes # (Manual) ABG pH POC ABG pCO2 POC ABG pO2 ABG Hemoglobin ABG Oxyhemoglobin ABG Potassium ABG Chloride ABG Glucose Sodium Potassium Chloride Carbon Dioxide BUN Glucose POC Glucose 243 H 272 H 320 H Calcium TIBC Alkaline Phosphatase Albumin Arterial Blood Glucose Arterial Blood Ionized Calcium Lymph Enumerat CD4/CD8 % CD3 Cells Absolute CD3 Count % CD4 Cells Absolute CD4 Count Absolute CD8 Count Absolute CD19 Count Crossmatch 09/01/20 09/01/20 09/02/20 16:16 21:59 08:32 WBC RBC Hgb Hct MCH MCHC RDW Seg Neuts % (Manual) Lymphocytes % (Manual) Seg Neutrophils # Man Abs Lymphs (Manual) Lymphocytes # (Manual) ABG pH POC ABG pCO2 POC ABG pO2 ABG Hemoglobin ABG Oxyhemoglobin ABG Potassium ABG Chloride ABG Glucose Sodium Potassium Chloride Carbon Dioxide BUN Glucose POC Glucose 319 H 157 H 195 H Calcium TIBC Alkaline Phosphatase Albumin Arterial Blood Glucose Arterial Blood Ionized Calcium Lymph Enumerat CD4/CD8 % CD3 Cells Absolute CD3 Count % CD4 Cells Absolute CD4 Count Absolute CD8 Count Absolute CD19 Count Crossmatch 09/02/20 09/02/20 09/03/20 11:44 20:09 05:02 WBC RBC 2.25 L Hgb 6.5 L Hct 19.7 L* MCH MCHC RDW 21.3 H Seg Neuts % (Manual) Lymphocytes % (Manual) Seg Neutrophils # Man Abs Lymphs (Manual) Lymphocytes # (Manual) ABG pH POC ABG pCO2 POC ABG pO2 ABG Hemoglobin ABG Oxyhemoglobin ABG Potassium ABG Chloride ABG Glucose Sodium Potassium Chloride Carbon Dioxide BUN Glucose POC Glucose 167 H 214 H Calcium TIBC Alkaline Phosphatase Albumin Arterial Blood Glucose Arterial Blood Ionized Calcium Lymph Enumerat CD4/CD8 % CD3 Cells Absolute CD3 Count % CD4 Cells Absolute CD4 Count Absolute CD8 Count Absolute CD19 Count Crossmatch 09/03/20 09/03/20 09/03/20 05:02 07:35 09:56 WBC RBC Hgb Hct MCH MCHC RDW Seg Neuts % (Manual) Lymphocytes % (Manual) Seg Neutrophils # Man Abs Lymphs (Manual) Lymphocytes # (Manual) ABG pH POC ABG pCO2 POC ABG pO2 ABG Hemoglobin ABG Oxyhemoglobin ABG Potassium ABG Chloride ABG Glucose Sodium 149 H Potassium 3.3 L Chloride Carbon Dioxide 38 H BUN 30 H Glucose 212 H POC Glucose 207 H Calcium 6.7 L TIBC Alkaline Phosphatase Albumin Arterial Blood Glucose Arterial Blood Ionized Calcium Lymph Enumerat CD4/CD8 % CD3 Cells Absolute CD3 Count % CD4 Cells Absolute CD4 Count Absolute CD8 Count Absolute CD19 Count Crossmatch See Detail 09/03/20 09/03/20 09/04/20 12:05 16:04 05:53 WBC 14.8 H RBC 2.99 L Hgb 8.6 L Hct 26.4 L D MCH MCHC RDW 19.0 H Seg Neuts % (Manual) Lymphocytes % (Manual) Seg Neutrophils # Man Abs Lymphs (Manual) Lymphocytes # (Manual) ABG pH POC ABG pCO2 POC ABG pO2 ABG Hemoglobin ABG Oxyhemoglobin ABG Potassium ABG Chloride ABG Glucose Sodium Potassium Chloride Carbon Dioxide BUN Glucose POC Glucose 193 H 174 H Calcium TIBC Alkaline Phosphatase Albumin Arterial Blood Glucose Arterial Blood Ionized Calcium Lymph Enumerat CD4/CD8 % CD3 Cells Absolute CD3 Count % CD4 Cells Absolute CD4 Count Absolute CD8 Count Absolute CD19 Count Crossmatch 09/04/20 09/04/20 09/04/20 05:53 05:53 08:33 WBC RBC Hgb Hct MCH MCHC RDW Seg Neuts % (Manual) Lymphocytes % (Manual) Seg Neutrophils # Man Abs Lymphs (Manual) 98 L Lymphocytes # (Manual) ABG pH POC ABG pCO2 POC ABG pO2 ABG Hemoglobin ABG Oxyhemoglobin ABG Potassium ABG Chloride ABG Glucose Sodium 149 H Potassium Chloride Carbon Dioxide 39 H BUN 28 H Glucose 175 H POC Glucose 222 H Calcium 6.9 L TIBC 214 L Alkaline Phosphatase Albumin Arterial Blood Glucose Arterial Blood Ionized Calcium Lymph Enumerat CD4/CD8 0.68 L % CD3 Cells 51 L Absolute CD3 Count 50 L % CD4 Cells 20 L Absolute CD4 Count 20 L Absolute CD8 Count 29 L Absolute CD19 Count 17 L Crossmatch 09/04/20 09/04/20 09/05/20 11:21 15:42 04:56 WBC RBC 2.88 L Hgb 8.6 L Hct 25.3 L MCH MCHC RDW 19.6 H Seg Neuts % (Manual) Lymphocytes % (Manual) Seg Neutrophils # Man Abs Lymphs (Manual) Lymphocytes # (Manual) ABG pH POC ABG pCO2 POC ABG pO2 ABG Hemoglobin ABG Oxyhemoglobin ABG Potassium ABG Chloride ABG Glucose Sodium Potassium Chloride Carbon Dioxide BUN Glucose POC Glucose 253 H 240 H Calcium TIBC Alkaline Phosphatase Albumin Arterial Blood Glucose Arterial Blood Ionized Calcium Lymph Enumerat CD4/CD8 % CD3 Cells Absolute CD3 Count % CD4 Cells Absolute CD4 Count Absolute CD8 Count Absolute CD19 Count Crossmatch 09/05/20 09/05/20 09/05/20 04:56 07:31 12:01 WBC RBC Hgb Hct MCH MCHC RDW Seg Neuts % (Manual) Lymphocytes % (Manual) Seg Neutrophils # Man Abs Lymphs (Manual) Lymphocytes # (Manual) ABG pH POC ABG pCO2 POC ABG pO2 ABG Hemoglobin ABG Oxyhemoglobin ABG Potassium ABG Chloride ABG Glucose Sodium 149 H Potassium 3.1 L Chloride Carbon Dioxide 48 H* D BUN 24 H Glucose 142 H POC Glucose 131 H 124 H Calcium 6.5 L TIBC Alkaline Phosphatase Albumin Arterial Blood Glucose Arterial Blood Ionized Calcium Lymph Enumerat CD4/CD8 % CD3 Cells Absolute CD3 Count % CD4 Cells Absolute CD4 Count Absolute CD8 Count Absolute CD19 Count Crossmatch 09/05/20 09/05/20 09/06/20 16:52 20:19 04:26 WBC RBC Hgb Hct MCH MCHC RDW Seg Neuts % (Manual) Lymphocytes % (Manual) Seg Neutrophils # Man Abs Lymphs (Manual) Lymphocytes # (Manual) ABG pH POC ABG pCO2 POC ABG pO2 ABG Hemoglobin ABG Oxyhemoglobin ABG Potassium ABG Chloride ABG Glucose Sodium 151 H Potassium 3.3 L Chloride Carbon Dioxide 44 H* BUN 24 H Glucose POC Glucose 168 H 130 H Calcium 5.8 L* TIBC Alkaline Phosphatase Albumin Arterial Blood Glucose Arterial Blood Ionized Calcium Lymph Enumerat CD4/CD8 % CD3 Cells Absolute CD3 Count % CD4 Cells Absolute CD4 Count Absolute CD8 Count Absolute CD19 Count Crossmatch 09/06/20 09/06/20 09/06/20 11:51 15:19 20:20 WBC RBC Hgb Hct MCH MCHC RDW Seg Neuts % (Manual) Lymphocytes % (Manual) Seg Neutrophils # Man Abs Lymphs (Manual) Lymphocytes # (Manual) ABG pH POC ABG pCO2 POC ABG pO2 ABG Hemoglobin ABG Oxyhemoglobin ABG Potassium ABG Chloride ABG Glucose Sodium Potassium Chloride Carbon Dioxide BUN Glucose POC Glucose 150 H 113 H 138 H Calcium TIBC Alkaline Phosphatase Albumin Arterial Blood Glucose Arterial Blood Ionized Calcium Lymph Enumerat CD4/CD8 % CD3 Cells Absolute CD3 Count % CD4 Cells Absolute CD4 Count Absolute CD8 Count Absolute CD19 Count Crossmatch 09/07/20 09/07/20 09/07/20 07:41 09:41 11:47 WBC RBC Hgb Hct MCH MCHC RDW Seg Neuts % (Manual) Lymphocytes % (Manual) Seg Neutrophils # Man Abs Lymphs (Manual) Lymphocytes # (Manual) ABG pH POC ABG pCO2 POC ABG pO2 ABG Hemoglobin ABG Oxyhemoglobin ABG Potassium ABG Chloride ABG Glucose Sodium 146 H Potassium Chloride Carbon Dioxide 43 H* BUN 24 H Glucose 186 H POC Glucose 118 H 198 H Calcium 6.1 L TIBC Alkaline Phosphatase Albumin Arterial Blood Glucose Arterial Blood Ionized Calcium Lymph Enumerat CD4/CD8 % CD3 Cells Absolute CD3 Count % CD4 Cells Absolute CD4 Count Absolute CD8 Count Absolute CD19 Count Crossmatch 09/07/20 09/08/20 09/08/20 21:58 05:09 07:55 WBC RBC Hgb Hct MCH MCHC RDW Seg Neuts % (Manual) Lymphocytes % (Manual) Seg Neutrophils # Man Abs Lymphs (Manual) Lymphocytes # (Manual) ABG pH POC ABG pCO2 POC ABG pO2 ABG Hemoglobin ABG Oxyhemoglobin ABG Potassium ABG Chloride ABG Glucose Sodium 146 H Potassium Chloride Carbon Dioxide 47 H* BUN Glucose 120 H POC Glucose 215 H 110 H Calcium 6.1 L TIBC Alkaline Phosphatase Albumin Arterial Blood Glucose Arterial Blood Ionized Calcium Lymph Enumerat CD4/CD8 % CD3 Cells Absolute CD3 Count % CD4 Cells Absolute CD4 Count Absolute CD8 Count Absolute CD19 Count Crossmatch 09/08/20 09/08/20 09/08/20 11:27 16:46 20:17 WBC RBC Hgb Hct MCH MCHC RDW Seg Neuts % (Manual) Lymphocytes % (Manual) Seg Neutrophils # Man Abs Lymphs (Manual) Lymphocytes # (Manual) ABG pH POC ABG pCO2 POC ABG pO2 ABG Hemoglobin ABG Oxyhemoglobin ABG Potassium ABG Chloride ABG Glucose Sodium Potassium Chloride Carbon Dioxide BUN Glucose POC Glucose 113 H 139 H 122 H Calcium TIBC Alkaline Phosphatase Albumin Arterial Blood Glucose Arterial Blood Ionized Calcium Lymph Enumerat CD4/CD8 % CD3 Cells Absolute CD3 Count % CD4 Cells Absolute CD4 Count Absolute CD8 Count Absolute CD19 Count Crossmatch 09/09/20 09/09/20 09/09/20 08:08 11:28 16:22 WBC RBC Hgb Hct MCH MCHC RDW Seg Neuts % (Manual) Lymphocytes % (Manual) Seg Neutrophils # Man Abs Lymphs (Manual) Lymphocytes # (Manual) ABG pH POC ABG pCO2 POC ABG pO2 ABG Hemoglobin ABG Oxyhemoglobin ABG Potassium ABG Chloride ABG Glucose Sodium Potassium Chloride Carbon Dioxide BUN Glucose POC Glucose 107 H 113 H 108 H Calcium TIBC Alkaline Phosphatase Albumin Arterial Blood Glucose Arterial Blood Ionized Calcium Lymph Enumerat CD4/CD8 % CD3 Cells Absolute CD3 Count % CD4 Cells Absolute CD4 Count Absolute CD8 Count Absolute CD19 Count Crossmatch 09/10/20 09/10/20 09/10/20 11:55 16:10 20:56 WBC RBC Hgb Hct MCH MCHC RDW Seg Neuts % (Manual) Lymphocytes % (Manual) Seg Neutrophils # Man Abs Lymphs (Manual) Lymphocytes # (Manual) ABG pH POC ABG pCO2 POC ABG pO2 ABG Hemoglobin ABG Oxyhemoglobin ABG Potassium ABG Chloride ABG Glucose Sodium Potassium Chloride Carbon Dioxide BUN Glucose POC Glucose 156 H 127 H 311 H Calcium TIBC Alkaline Phosphatase Albumin Arterial Blood Glucose Arterial Blood Ionized Calcium Lymph Enumerat CD4/CD8 % CD3 Cells Absolute CD3 Count % CD4 Cells Absolute CD4 Count Absolute CD8 Count Absolute CD19 Count Crossmatch 09/11/20 09/11/20 09/11/20 04:07 07:41 11:19 WBC RBC Hgb Hct MCH MCHC RDW Seg Neuts % (Manual) Lymphocytes % (Manual) Seg Neutrophils # Man Abs Lymphs (Manual) Lymphocytes # (Manual) ABG pH POC ABG pCO2 POC ABG pO2 ABG Hemoglobin ABG Oxyhemoglobin ABG Potassium ABG Chloride ABG Glucose Sodium Potassium Chloride 95.1 L Carbon Dioxide 48 H* BUN Glucose 135 H POC Glucose 151 H 152 H Calcium 6.1 L TIBC Alkaline Phosphatase Albumin Arterial Blood Glucose Arterial Blood Ionized Calcium Lymph Enumerat CD4/CD8 % CD3 Cells Absolute CD3 Count % CD4 Cells Absolute CD4 Count Absolute CD8 Count Absolute CD19 Count Crossmatch 09/11/20 09/11/20 09/12/20 16:45 20:22 08:12 WBC RBC Hgb Hct MCH MCHC RDW Seg Neuts % (Manual) Lymphocytes % (Manual) Seg Neutrophils # Man Abs Lymphs (Manual) Lymphocytes # (Manual) ABG pH POC ABG pCO2 POC ABG pO2 ABG Hemoglobin ABG Oxyhemoglobin ABG Potassium ABG Chloride ABG Glucose Sodium Potassium Chloride Carbon Dioxide BUN Glucose POC Glucose 156 H 220 H 202 H Calcium TIBC Alkaline Phosphatase Albumin Arterial Blood Glucose Arterial Blood Ionized Calcium Lymph Enumerat CD4/CD8 % CD3 Cells Absolute CD3 Count % CD4 Cells Absolute CD4 Count Absolute CD8 Count Absolute CD19 Count Crossmatch 09/12/20 09/12/20 09/12/20 10:52 12:37 16:47 WBC RBC Hgb Hct MCH MCHC RDW Seg Neuts % (Manual) Lymphocytes % (Manual) Seg Neutrophils # Man Abs Lymphs (Manual) Lymphocytes # (Manual) ABG pH POC ABG pCO2 POC ABG pO2 ABG Hemoglobin ABG Oxyhemoglobin ABG Potassium ABG Chloride ABG Glucose Sodium Potassium Chloride Carbon Dioxide BUN Glucose POC Glucose 62 L 170 H 261 H Calcium TIBC Alkaline Phosphatase Albumin Arterial Blood Glucose Arterial Blood Ionized Calcium Lymph Enumerat CD4/CD8 % CD3 Cells Absolute CD3 Count % CD4 Cells Absolute CD4 Count Absolute CD8 Count Absolute CD19 Count Crossmatch 09/13/20 09/13/20 09/13/20 00:40 07:25 11:15 WBC RBC Hgb Hct MCH MCHC RDW Seg Neuts % (Manual) Lymphocytes % (Manual) Seg Neutrophils # Man Abs Lymphs (Manual) Lymphocytes # (Manual) ABG pH POC ABG pCO2 POC ABG pO2 ABG Hemoglobin ABG Oxyhemoglobin ABG Potassium ABG Chloride ABG Glucose Sodium Potassium Chloride Carbon Dioxide BUN Glucose POC Glucose 134 H 158 H 130 H Calcium TIBC Alkaline Phosphatase Albumin Arterial Blood Glucose Arterial Blood Ionized Calcium Lymph Enumerat CD4/CD8 % CD3 Cells Absolute CD3 Count % CD4 Cells Absolute CD4 Count Absolute CD8 Count Absolute CD19 Count Crossmatch 09/13/20 09/13/20 09/14/20 15:30 20:37 10:27 WBC RBC Hgb Hct MCH MCHC RDW Seg Neuts % (Manual) Lymphocytes % (Manual) Seg Neutrophils # Man Abs Lymphs (Manual) Lymphocytes # (Manual) ABG pH 7.471 H POC ABG pCO2 62.3 H POC ABG pO2 ABG Hemoglobin 8.2 L ABG Oxyhemoglobin ABG Potassium 3.1 L ABG Chloride 94.0 L ABG Glucose 189 H Sodium Potassium Chloride Carbon Dioxide BUN Glucose POC Glucose 147 H 159 H Calcium TIBC Alkaline Phosphatase Albumin Arterial Blood Glucose 189 H Arterial Blood Ionized Calcium 3.0 L Lymph Enumerat CD4/CD8 % CD3 Cells Absolute CD3 Count % CD4 Cells Absolute CD4 Count Absolute CD8 Count Absolute CD19 Count Crossmatch 09/14/20 11:48 WBC RBC Hgb Hct MCH MCHC RDW Seg Neuts % (Manual) Lymphocytes % (Manual) Seg Neutrophils # Man Abs Lymphs (Manual) Lymphocytes # (Manual) ABG pH POC ABG pCO2 POC ABG pO2 ABG Hemoglobin ABG Oxyhemoglobin ABG Potassium ABG Chloride ABG Glucose Sodium Potassium Chloride Carbon Dioxide BUN Glucose POC Glucose 187 H Calcium TIBC Alkaline Phosphatase Albumin Arterial Blood Glucose Arterial Blood Ionized Calcium Lymph Enumerat CD4/CD8 % CD3 Cells Absolute CD3 Count % CD4 Cells Absolute CD4 Count Absolute CD8 Count Absolute CD19 Count Crossmatch Allied health notes reviewed: nursing
[2020-09-14] MEDS: PANTOPRAZOLE 40 MG TAB PO SCH (18:25)
--- NOTE | 2020-09-14 19:51 | Progress Note ---
Assessment and Plan Assessment and plan: --Severe anemia; no external evidence of bleeding; Type and cross transfuse 3 units of PRBC, Check stool for occult blood closely monitor H&H and transfuse additional PRBC As needed Consult GI if needed --Severe hypocalcemia; replenish with calcium gluconate Oral calcium carbonate, monitor levels --Hypokalemia/hypomagnesemia; Replenished with KCl and magnesium sulfate Monitor electrolytes --history of HIV infection for many years; Asymptomatic for many years, not on antiretrovirals Patient follow-up private ID/health department as needed --SIRS; without organ dysfunction, present on admission --General debility; Physical therapy, Occupational Therapy, rehabilitation PT OT recommended SNF placement --Paroxysmal atrial fibrillation; Patient is in sinus rhythm today with heart rate in 70s No A. fib last 24 hours Cardiology following Continue beta-blockers, not a candidate for anticoagulation Due to severe anemia requiring blood transfusion --Acute exacerbation of COPD ; Patient is a current smoker Continue nasal cannula oxygen titrate O2 sats to more than 90% --Acute hypoxic respiratory failure ; requiring BiPAP Continue oxygen via nasal cannula 4 L today Titrate O2 sats more than 90%, BiPAP as needed --Leukocytosis- resolved --Hypertension; moderate control Continue current antihypertensives, as needed medications --Normocytic anemia Hemoglobin is down to 8.0 > 7.6 this morning Closely monitor H&H transfuse as needed --Hyperglycemia -likely secondary to steroids HD A1c 5.8, Accu-Chek sliding scale coverage Long-acting insulin if needed --Ongoing tobacco abuse Patient counseled on tobacco cessation Nicotine patch as needed --Mild to moderate malnutrition/hypoalbuminemia Nutrition supplements and supportive care --DVT prophylaxis; Heparin subcu/SCDs Physical therapy/Occupational Therapy evaluation and treatment DC planning per case management OT recommended subacute rehab /SNF placement. Awaiting placement, patient is medically stable for discharge SNF needs PT OT updates 64-year-old male with past medical history of COPD, hypertension asthma PE was admitted through emergency room with shortness of breath of 1 day duration morning. Patient was noted to be hypoxemic requiring supplemental oxygen, and work-up is consistent with acute exacerbation of COPD and acute on chronic hypoxic respiratory failure. Requiring BiPAP and supplemental oxygen. Patient continues to be hypoxemic requiring supplemental oxygen. Patient symptoms slowly but gradually improved, however patient is debilitated with her underlying medical condition of chronic hypoxia, HIV disease Electrolyte imbalances, chronic alcohol use. Patient was evaluated by PT OT, strongly recommended SNF placement, however the insurance did not approve Saying that patient does not have the criteria for SNF placement Recommended long-term care placement instead 08/29; patient requiring BiPAP, severely short of breath, pulmonary following; Wean as tolerated ; requiring intermittent BiPAP especially at night This morning patient is on 4 L of nasal cannula oxygen Patient already has home oxygen at 3 L Pulmonary following 08/31/2020; patient continues to be in shortness of breath Unable to keep his oxygen, confused at times BiPAP as needed, pulmonary following Recommend placement SNF, Check for mccracken PCR PT OT evaluation 09/01/2020; on 4 L of nasal oxygen Awaiting placement Resumed service; 09/05/2020; I checked with monitor room, patient is in sinus heart rate in 70s No A. fib last 24 hours Awaiting subacute rehab placement 09/06/2020; hypokalemia, hypocalcemia Replenished with KCl, calcium gluconate and calcium carbonate Follow electrolytes 09/07/2020; follow today's labs Awaiting placement 09/08/2020; patient is clinically stable for discharge Awaiting subacute rehab placement 09/09/2020; awaiting placement 09/10/2020; no new complaints, stable for discharge Awaiting placement 09/11/2020; pulmonary cleared for discharge Pending placement DC planning per case management 09/12/2020; Pending placement SNF needs updated PT OT evaluations 09/13/2020; patient had PT OT updates Recommend SNF placement 09/14/2020; I had P2P with Dr. López[Nancie] at now insurance physician Discussed in detail patient's condition treatment and discharge planning The physician said patient does not fit the criteria for SNF, did not approve SNF placement However recommended to consider long-term care. I informed case management Ms. Ha the above conversation DC planning per case management Patient is medically stable for discharge 09/15/2020; patient has severe anemia today transfuse 3 units of PRBC, Stool for occult blood, GI consult, hypomagnesemia hypocalcemia and hypokalemia Replenish per protocol, closely monitor History Interval history: I have seen and examined the patient at the bedside Patient's chart and medications reviewed Patient's hemoglobin this morning is 5.3, received 1 unit PRBC Patient's stool is positive for occult blood Cachectic chronically ill looking Vital signs noted Hospitalist Physical - Constitutional Vitals: Temp Pulse Resp BP Pulse Ox 97.1 F L 66 20 76/41 91 09/14/20 16:09 09/14/20 16:09 09/14/20 16:09 09/14/20 16:09 09/14/20 16:09 General appearance: Present: no acute distress, well-nourished - EENT Eyes: Present: PERRL - Neck Neck: Present: supple, normal ROM - Respiratory Respiratory effort: normal Respiratory: bilateral: diminished, negative: rales, rhonchi, wheezing - Cardiovascular Rhythm: regular Heart Sounds: Present: S1 & S2 - Extremities Extremities: no ischemia, No edema - Abdominal General gastrointestinal: soft, non-tender, non-distended, normal bowel sounds - Integumentary Integumentary: Present: clear, warm - Psychiatric Psychiatric: appropriate mood/affect, cooperative - Neurologic Neurologic: CNII-XII intact, moves all extremities HEART Score - HEART Score Troponin: Troponin T < 0.010 ng/mL (0.00-0.029) 09/04/20 05:53 Results - Labs CBC & Chem 7: 09/15/20 10:43 09/15/20 04:18 Labs: Laboratory Last Values WBC 7.7 K/mm3 (4.5-11.0) 09/05/20 04:56 RBC 2.88 M/mm3 (3.65-5.03) L 09/05/20 04:56 Hgb 8.6 gm/dl (11.8-15.2) L 09/05/20 04:56 Hct 25.3 % (35.5-45.6) L 09/05/20 04:56 MCV 88 fl (84-94) 09/05/20 04:56 MCH 30 pg (28-32) 09/05/20 04:56 MCHC 34 % (32-34) 09/05/20 04:56 RDW 19.6 % (13.2-15.2) H 09/05/20 04:56 Plt Count 143 K/mm3 (140-440) 09/05/20 04:56 Add Manual Diff Complete 08/25/20 07:21 Total Counted 100 08/25/20 07:21 Seg Neutrophils % Feather Separator 08/25/20 07:21 Seg Neuts % (Manual) 96.0 % (40.0-70.0) H 08/25/20 07:21 Lymphocytes % (Manual) 3.0 % (13.4-35.0) L 08/25/20 07:21 Monocytes % (Manual) 2.0 % (0.0-7.3) 08/24/20 19:29 Myelocytes % 1.0 % 08/25/20 07:21 Nucleated RBC % Not Reportable 08/25/20 07:21 Seg Neutrophils # Man 4.8 K/mm3 (1.8-7.7) 08/25/20 07:21 Band Neutrophils # 0.0 K/mm3 08/25/20 07:21 Abs Lymphs (Manual) 98 cells/uL (850-3900) L 09/04/20 05:53 Lymphocytes # (Manual) 0.2 K/mm3 (1.2-5.4) L 08/25/20 07:21 Abs React Lymphs (Man) 0.0 K/mm3 08/25/20 07:21 Monocytes # (Manual) 0.0 K/mm3 (0.0-0.8) 08/25/20 07:21 Eosinophils # (Manual) 0.0 K/mm3 (0.0-0.4) 08/25/20 07:21 Basophils # (Manual) 0.0 K/mm3 (0.0-0.1) 08/25/20 07:21 Metamyelocytes # 0.0 K/mm3 08/25/20 07:21 Myelocytes # 0.1 K/mm3 08/25/20 07:21 Promyelocytes # 0.0 K/mm3 08/25/20 07:21 Blast Cells # 0.0 K/mm3 08/25/20 07:21 WBC Morphology Not Reportable 08/25/20 07:21 Hypersegmented Neuts Not Reportable 08/25/20 07:21 Hyposegmented Neuts Not Reportable 08/25/20 07:21 Hypogranular Neuts Not Reportable 08/25/20 07:21 Smudge Cells Not Reportable 08/25/20 07:21 Toxic Granulation Not Reportable 08/25/20 07:21 Toxic Vacuolation Not Reportable 08/25/20 07:21 Dohle Bodies Not Reportable 08/25/20 07:21 Pelger-Huet Anomaly Not Reportable 08/25/20 07:21 Ruma Rods Not Reportable 08/25/20 07:21 Platelet Estimate Consistent w auto 08/25/20 07:21 Clumped Platelets Not Reportable 08/25/20 07:21 Plt Clumps, EDTA Not Reportable 08/25/20 07:21 Large Platelets Not Reportable 08/25/20 07:21 Giant Platelets Not Reportable 08/25/20 07:21 Platelet Satelliting Not Reportable 08/25/20 07:21 Plt Morphology Comment Not Reportable 08/25/20 07:21 RBC Morphology Not Reportable 08/25/20 07:21 Dimorphic RBCs Not Reportable 08/25/20 07:21 Polychromasia Not Reportable 08/25/20 07:21 Hypochromasia 1+ 08/25/20 07:21 Poikilocytosis 1+ 08/25/20 07:21 Anisocytosis 1+ 08/25/20 07:21 Microcytosis Not Reportable 08/25/20 07:21 Macrocytosis Not Reportable 08/25/20 07:21 Spherocytes Not Reportable 08/25/20 07:21 Pappenheimer Bodies Not Reportable 08/25/20 07:21 Sickle Cells Not Reportable 08/25/20 07:21 Target Cells Not Reportable 08/25/20 07:21 Tear Drop Cells Not Reportable 08/25/20 07:21 Ovalocytes 1+ 08/25/20 07:21 Helmet Cells Not Reportable 08/25/20 07:21 [place] Bodies Not Reportable 08/25/20 07:21 [place] Rings Not Reportable 08/25/20 07:21 Don Cells Not Reportable 08/25/20 07:21 Bite Cells Not Reportable 08/25/20 07:21 Crenated Cell Not Reportable 08/25/20 07:21 Elliptocytes 2+ 08/25/20 07:21 Acanthocytes (Spur) 1+ 08/25/20 07:21 Rouleaux Not Reportable 08/25/20 07:21 Hemoglobin C Crystals Not Reportable 08/25/20 07:21 Schistocytes Not Reportable 08/25/20 07:21 Malaria parasites Not Reportable 08/25/20 07:21 Ric Bodies Not Reportable 08/25/20 07:21 Hem Pathologist Commnt No 08/25/20 07:21 ABG pH 7.471 (7.320-7.450) H 09/14/20 10:27 POC ABG pCO2 62.3 mmHg (32.0-48.0) H 09/14/20 10:27 POC ABG pO2 96.7 mmHg (83-108) 09/14/20 10:27 POC ABG HCO3 44.4 09/14/20 10:27 ABG O2 Saturation 97.3 (0-100) 09/14/20 10:27 POC ABG Base Excess 18.6 09/14/20 10:27 ABG Hemoglobin 8.2 (12.0-17.5) L 09/14/20 10:27 ABG Oxyhemoglobin 96.1 (94-98) 09/14/20 10:27 ABG Methemoglobin 0.3 (0.0-1.5) 09/14/20 10:27 ABG Sodium 141.5 mmol/L (136.0-145.0) 09/14/20 10:27 ABG Potassium 3.1 mmol/L (3.40-4.50) L 09/14/20 10:27 ABG Chloride 94.0 mmol/L (98-107) L 09/14/20 10:27 ABG Glucose 189 mg/dL (65-95) H 09/14/20 10:27 Carboxyhemoglobin 0.9 (0.5-1.5) 09/14/20 10:27 FiO2 % 32.0 09/14/20 10:27 Sodium 145 mmol/L (137-145) 09/11/20 04:07 Potassium 3.6 mmol/L (3.6-5.0) 09/11/20 04:07 Chloride 95.1 mmol/L (98-107) L 09/11/20 04:07 Carbon Dioxide 48 mmol/L (22-30) H* 09/11/20 04:07 Anion Gap 6 mmol/L 09/11/20 04:07 BUN 12 mg/dL (9-20) 09/11/20 04:07 Creatinine 0.8 mg/dL (0.8-1.3) 09/11/20 04:07 Estimated GFR > 60 ml/min 09/11/20 04:07 BUN/Creatinine Ratio 15 % 09/11/20 04:07 Glucose 135 mg/dL (75-100) H 09/11/20 04:07 POC Glucose 145 mg/dL (70-105) H 09/14/20 17:11 Hemoglobin A1c 5.8 % (4-6) 08/25/20 07:27 Calcium 6.1 mg/dL (8.4-10.2) L 09/11/20 04:07 Magnesium 1.70 mg/dL (1.7-2.3) 09/11/20 04:07 Iron 58 ug/dL (49-181) 09/04/20 05:53 TIBC 214 mcg/dL (250-450) L 09/04/20 05:53 Total Bilirubin 0.40 mg/dL (0.1-1.2) 08/24/20 19:29 AST 21 units/L (5-40) 08/24/20 19:29 ALT 36 units/L (7-56) 08/24/20 19:29 Alkaline Phosphatase 154 units/L (35-129) H 08/24/20 19:29 Troponin T < 0.010 ng/mL (0.00-0.029) 09/04/20 05:53 Total Protein 6.5 g/dL (6.3-8.2) 08/24/20 19:29 Albumin 3.4 g/dL (3.9-5) L 08/24/20 19:29 Albumin/Globulin Ratio 1.1 % 08/24/20 19:29 Arterial Blood Glucose 189 mg/dL (65-95) H 09/14/20 10:27 Arterial Blood Ionized Calcium 3.0 mg/dL (4.6-5.3) L 09/14/20 10:27 Lymph Enumerat CD4/CD8 0.68 (0.86-5.00) L 09/04/20 05:53 % CD3 Cells 51 % (57-85) L 09/04/20 05:53 Absolute CD3 Count 50 cells/uL (840-3060) L 09/04/20 05:53 % CD4 Cells 20 % (30-61) L 09/04/20 05:53 Absolute CD4 Count 20 cells/uL (490-1740) L 09/04/20 05:53 % CD8 Cells 30 % (12-42) 09/04/20 05:53 Absolute CD8 Count 29 cells/uL (180-1170) L 09/04/20 05:53 % CD19 Cells 17 % (6-29) 09/04/20 05:53 Absolute CD19 Count 17 cells/uL (110-660) L 09/04/20 05:53 Coronavirus (PCR) Negative (Negative) 09/01/20 Unknown Blood Type A POSITIVE 09/03/20 09:56 Antibody Screen Negative 09/03/20 09:56 Crossmatch See Detail 09/03/20 09:56 [place]/IV: Voiding Method Incontinent Active Medications - Current Medications Current Medications: Generic Name Dose Route Start Last Admin Trade Name Freq PRN Reason Stop Dose Admin Acetaminophen 650 mg 08/24/20 22:12 09/13/20 20:35 Acetaminophen 325 Mg Tab PO 650 mg Q4H PRN Administration Pain MILD(1-3)/Fever >100.5/KOENIG Alprazolam 0.25 mg 08/30/20 11:30 09/12/20 22:28 Alprazolam 0.25 Mg Tab PO 0.25 mg Q8H PRN Administration Anxiety Arformoterol Tartrate 15 mcg 08/25/20 20:00 09/14/20 08:52 Arformoterol 15 Mcg/2 Ml Nebu IH 15 mcg Q12HRT NADIA Administration Aspirin 81 mg 08/25/20 10:00 09/14/20 11:20 Aspirin Ec 81 Mg Tab PO 81 mg QDAY NADIA Administration Atorvastatin Calcium 40 mg 08/25/20 22:00 09/14/20 05:15 Atorvastatin 40 Mg Tab PO Not Given QHS NADIA Budesonide 0.5 mg 08/25/20 08:00 09/14/20 08:52 Budesonide 0.5 Mg/2 Ml Nebu IH 0.5 mg Q12HRT NADIA Administration Calcium Carbonate/Glycine 500 mg 09/06/20 09:00 09/14/20 14:25 Calcium Carbonate 500 Mg Tab Chew PO 500 mg TID NADIA Administration Carvedilol 6.25 mg 09/02/20 12:00 09/14/20 11:22 Carvedilol 6.25 Mg Tab PO 6.25 mg BID NADIA Administration Guaifenesin 400 mg 08/29/20 13:00 08/30/20 05:33 Guaifenesin 200 Mg Tab PO 400 mg Q4HR PRN Administration Cough Heparin Sodium (Porcine) 5,000 unit 08/25/20 06:00 09/14/20 15:26 Heparin 5,000 Unit/1 Ml Vial SUB-Q 5,000 unit Q8HR NADIA Administration Hydralazine HCl 10 mg 08/24/20 22:14 08/31/20 13:40 Hydralazine 20 Mg/1 Ml Inj IV 10 mg Q6H PRN Administration SBP>/=160; DBP >/=100 Insulin Human Isoph/Insulin Regular 5 unit 09/10/20 17:00 09/14/20 18:26 Insulin Nph/Regular 70/30 Inj SUB-Q 5 unit BIDDIAB NADIA Administration Insulin Human Lispro 0 unit 08/25/20 22:00 09/13/20 22:14 Insulin Lispro 100 Unit/Ml SUB-Q Not Given [facility] Protocol Ipratropium [place] 0.5 mg 09/02/20 16:00 09/14/20 15:29 Ipratropium 0.02% Nebu 2.5 Ml IH 0.5 mg Q8HRT NADIA Administration Levalbuterol HCl 0.63 mg 09/01/20 18:00 09/14/20 15:29 Levalbuterol 0.63 Mg/3 Ml Nebu IH 0.63 mg Q8HRT NADIA Administration Mirtazapine 7.5 mg 08/25/20 22:00 09/14/20 05:14 Mirtazapine 15 Mg Tab PO Not Given [facility] Montelukast Sodium 10 mg 08/25/20 22:00 09/14/20 05:14 Montelukast 10 Mg Tab PO Not Given [facility] Multivitamins 1 each 09/04/20 10:00 09/14/20 11:19 Multivitamins ,Therapeutic Tab PO 1 each QDAY [facility] Administration Multivitamins/Iron 1 each 09/04/20 10:00 09/14/20 11:18 Fe Fumarate/Fa/Mv, Min Comb#15 Cap (Hemocyte Plus) PO 1 each QDAY [facility] Administration Ondansetron HCl 4 mg 08/24/20 22:12 Ondansetron 4 Mg/2 Ml Inj IV Q8H PRN Nausea And Vomiting Oxycodone/Acetaminophen 1 tab 08/24/20 22:23 09/14/20 12:45 Oxycodone /Acetaminophen 5-325mg Tab PO 1 tab BID PRN Administration Pain , Severe (7-10) Pantoprazole Sodium 40 mg 08/25/20 10:00 09/14/20 18:25 Pantoprazole 40 Mg Tab PO 40 mg QDAY NADIA Administration Polyethylene Glycol 17 gm 08/28/20 10:00 09/14/20 10:29 Polyethylene Glycol 3350 17 Gm Powder PO Not Given QDAY NADIA Prednisone 20 mg 09/10/20 12:00 09/14/20 11:22 Prednisone 20 Mg Tab PO 20 mg QDAY NADIA Administration Sodium Chloride 10 ml 08/25/20 10:00 09/14/20 12:23 Sodium Chloride 0.9% 10 Ml Flush Syringe IV 10 ml BID NADIA Administration Sodium Chloride 10 ml 08/24/20 22:12 Sodium Chloride 0.9% 10 Ml Flush Syringe IV PRN PRN LINE FLUSH Tramadol HCl 50 mg 08/24/20 22:23 09/09/20 01:47 Tramadol 50 Mg Tab PO 50 mg Q6HR PRN Administration Pain, Moderate (4-6) Nutrition/Malnutrition Assess - Dietary Evaluation Nutrition/Malnutrition Findings: Nutrition Notes Start: 08/25/20 08:25 Freq: Status: Active Protocol: Document 09/14/20 10:32 ERWIN (Rec: 09/14/20 10:35 ERWIN [id number]) Nutrition Notes Initial or Follow up Brief Note Current Diet Cardiac/Consistent CHO + Ensure Clear BID Height 5 ft 5 in Weight 51.8 kg [place] Body Weight (kg) 61.81 BMI 19.0 Weight Status Underweight Subjective/Other Information Pt has consumed 44% of meals since last assessment. Awaiting placement. Percent of energy/protein needs met: 59% energy 61% pro (excludes ONS) Is patient on ventilator? No Is Patient Ambulatory and/or Out of Bed No REE-([facility]-confined to bed) 1481.472 Kcal/Kg value to use for calculation 35 Approximate Energy Requirements Using 1813 kcal/Kg Calculation Used for Recommendations Kcal/kg Additional Notes Pro needs 1.2-1.5g/k-78g/ day Fluid needs 1ml/kcal Nutrition Intervention Follow-Up By: 09/20/20 Additional Comments F/U: intakes (meals, ONS), wt
[2020-09-14] MEDS: INSULIN LISPRO 100 UNIT/ML SUB-Q SCH (22:50)
[2020-09-14] MEDS: ALPRAZolam 0.25 MG TAB PO PRN (23:17)
[2020-09-15] MEDS: oxyCODONE /ACETAMINOPHEN 5-325MG TAB PO PRN ×3 (00:13→19:56)
[2020-09-15] MEDS: IPRATROPIUM 0.02% NEBU 2.5 ML IH SCH ×4 (01:41→20:09)
[2020-09-15] MEDS: LEVALBUTEROL 0.63 MG/3 ML NEBU IH SCH ×3 (01:42→17:14)
[2020-09-15 04:58] LABS: Basophils % (Auto) 0.2 % (0.0-1.8); Eosinophils % (Auto) 0.1 % (0.0-4.3); Lymphocytes # (Auto) 0.8 K/mm3 (1.2-5.4); Lymphocytes % (Auto) 13.6 % (13.4-35.0); Mean Corpuscular HGB Conc 33 % (32-34); Mean Corpuscular Volume 93 fl (84-94); Monocytes # (Auto) 0.3 K/mm3 (0.0-0.8); Monocytes % (Auto) 4.8 % (0.0-7.3); Platelet Count 136 K/mm3 (140-440); Red Blood Count 1.73 M/mm3 (3.65-5.03)
[2020-09-15 05:22] LABS: BUN/Creatinine Ratio 16; Blood Urea Nitrogen 14 mg/dL (9-20); Hemolysis Index 0
[2020-09-15 05:27] LABS: Calcium 5.5 mg/dL (8.4-10.2)
[2020-09-15 05:30] LABS: Hemoglobin 5.3 gm/dl (11.8-15.2)
[2020-09-15 05:32] LABS: Hematocrit 16.1 % (35.5-45.6); Red Cell Distribution Width 21.7 % (13.2-15.2)
[2020-09-15] MEDS ORDERED: SODIUM CHLORIDE 0.9% 500 ML 500 ML IV ONE (06:23)
[2020-09-15] MEDS: HEPARIN 5,000 UNIT/1 ML VIAL SUB-Q SCH ×3 (06:52→21:50)
[2020-09-15] MEDS ORDERED: CALCIUM GLUCONATE 1,000 MG in SODIUM CHLORIDE 0.9% 100 ML IV ONE (07:29)
[2020-09-15] MEDS ORDERED: POTASSIUM CHLORIDE ER 10 MEQ TAB PO NR (08:28)
[2020-09-15] MEDS ORDERED: MAGNESIUM SULFATE 2 GM/50 ML BAG IV NR (09:00)
[2020-09-15] MEDS: BUDESONIDE 0.5 MG/2 ML NEBU IH SCH ×2 (09:09→20:09)
[2020-09-15] MEDS: ARFORMOTEROL 15 MCG/2 ML NEBU IH SCH ×2 (09:10→20:09)
[2020-09-15] MEDS: PANTOPRAZOLE 40 MG TAB PO SCH (10:39)
[2020-09-15] MEDS: carvediloL 6.25 MG TAB PO SCH ×2 (10:39→22:25)
[2020-09-15] MEDS: MULTIVITAMINS ,THERAPEUTIC TAB PO SCH (10:39)
[2020-09-15] MEDS: CALCIUM CARBONATE 500 MG TAB CHEW PO SCH ×3 (10:39→20:46)
[2020-09-15] MEDS: ASPIRIN EC 81 MG TAB PO SCH (10:39)
[2020-09-15] MEDS: INSULIN NPH/REGULAR 70/30 INJ SUB-Q SCH ×2 (10:39→17:31)
[2020-09-15] MEDS: FE FUMARATE/FA/MV, MIN COMB#15 CAP (HEMOCYTE PLUS) PO SCH (10:39)
[2020-09-15] MEDS: POLYETHYLENE GLYCOL 3350 17 GM POWDER PO SCH (10:40)
[2020-09-15 11:13] LABS: Hemoglobin 5.9 gm/dl (11.8-15.2)
[2020-09-15 11:14] LABS: Hematocrit 18.5 % (35.5-45.6)
[2020-09-15] MEDS ORDERED: SODIUM CHLORIDE 0.9% 500 ML 500 ML ONE (13:21)
[2020-09-15] MEDS: predniSONE 20 MG TAB PO SCH (13:40)
--- NOTE | 2020-09-15 13:53 | Gastroenterology Progress Note ---
Assessment and Plan Acute on chronic anemia with heme positive stool - no obvious overt gi bleeding (rectal w/o melena or obvious blood as well). would recommend conservative management from gi stand point unless there is overt bleeding given co- morbidities (cont resp sx's), and had egd/colonoscopy in 2019 per chart review without significant findings (possible duodenal avm). cont ppi for pud ppx. will monitor Subjective Date of service: 09/15/20 Principal diagnosis: Ac hypoxemic resp failure; AE-COPD; ANEGLIC; HIV +ve; HTN; Cocaine Use Interval history: gi called back for worsening anemia and heme positive stool. extensive medical history including acute on chronic resp failure, chf, hiv, susbtance abuse. prolonged hospitalization. acute on chronic anemia, no overt bleeding per staff. Objective - Exam Narrative Exam: gen: chronically ill appearing abd: soft, nt, nd rectal: scant stool w/o obvious melena/blood - Constitutional Vitals: Temp Pulse Resp BP Pulse Ox 98.3 F 48 L 20 106/58 91 09/15/20 11:48 09/15/20 11:48 09/15/20 11:48 09/15/20 11:48 09/15/20 11:48 - Labs CBC & Chem 7: 09/15/20 10:43 09/15/20 04:18 Labs: Laboratory Results - last 24 hr 09/14/20 09/14/20 09/15/20 17:11 21:56 04:18 WBC 5.6 RBC 1.73 L Hgb 5.3 L* Hct 16.1 L* MCV 93 MCH 31 MCHC 33 RDW 21.7 H Plt Count 136 L Lymph % (Auto) 13.6 Arthur % (Auto) 4.8 Eos % (Auto) 0.1 Baso % (Auto) 0.2 Lymph # (Auto) 0.8 L Arthur # (Auto) 0.3 Eos # (Auto) 0.0 Baso # (Auto) 0.0 Seg Neutrophils % 81.3 H Seg Neutrophils # 4.6 Sodium Potassium Chloride Carbon Dioxide Anion Gap BUN Creatinine Estimated GFR BUN/Creatinine Ratio Glucose POC Glucose 145 H 221 H Calcium Magnesium Blood Type Antibody Screen Crossmatch 09/15/20 09/15/20 09/15/20 04:18 07:59 10:43 WBC RBC Hgb Hct MCV MCH MCHC RDW Plt Count Lymph % (Auto) Arthur % (Auto) Eos % (Auto) Baso % (Auto) Lymph # (Auto) Arthur # (Auto) Eos # (Auto) Baso # (Auto) Seg Neutrophils % Seg Neutrophils # Sodium 146 H Potassium 3.5 L Chloride 97.7 L Carbon Dioxide 42 H* Anion Gap 10 BUN 14 Creatinine 0.9 Estimated GFR > 60 BUN/Creatinine Ratio 16 Glucose 102 H POC Glucose 93 Calcium 5.5 L* Magnesium 1.60 L Blood Type A POSITIVE Antibody Screen Negative Crossmatch See Detail 09/15/20 09/15/20 10:43 12:41 WBC RBC Hgb 5.9 L* Hct 18.5 L* MCV MCH MCHC RDW Plt Count Lymph % (Auto) Arthur % (Auto) Eos % (Auto) Baso % (Auto) Lymph # (Auto) Arthur # (Auto) Eos # (Auto) Baso # (Auto) Seg Neutrophils % Seg Neutrophils # Sodium Potassium Chloride Carbon Dioxide Anion Gap BUN Creatinine Estimated GFR BUN/Creatinine Ratio Glucose POC Glucose 119 H Calcium Magnesium Blood Type Antibody Screen Crossmatch
--- NOTE | 2020-09-15 16:46 | Progress Note ---
Assessment and Plan Acute hypoxemic respiratory failure Acute COPD exacerbation ANGELIC GERD (gastroesophageal reflux disease) HIV (human immunodeficiency virus infection) Hypertension Cocaine use Tobacco use disorder - received PRBC transfusion H&H stable so far - continue PPI therapy - continue low dose Prednisone for severe COPD exacerbation - continue to wean supplemental oxygen to keep O2 sats > 89-90% - no new issues, continue care as below; - prn CXR's & ABG's at this point - discharge planning ok pulmonary-rodriguez - continue Bronchodilators (HEIDI & LABA) with pulm hygiene per RT - continue inhaled corticosteroids - avoid nephrotoxins, renally dose all medications - continue mobility protocols to prevent pressure ulcers - PT/OT as tolerated - Wound care per RN/WCT - continue accuchecks with glycemic control per SSI for target blood glucose < 180 mg/dL - tobacco abstinence strongly counseled at the bedside - home oxygen evaluation at discharge - GI & VTE prophylaxis - Flu & pneumovax per protocol - Pulmonary out patient follow up for PFTs and optimization of respiratory status - continue other care per attending / other consultants - prn analgesia per pain score ... re-evaluate in am & prn Subjective Date of service: 09/15/20 Principal diagnosis: Ac hypoxemic resp failure; AE-COPD; ANGELIC; HIV +ve; HTN; Cocaine Use Interval history: Patient is seen today for: Acute hypoxemic respiratory failure; AE-COPD; ANGELIC; HIV infection; HTN; Cocaine use; Tobacco use disorder Seen and examined at bedside; 24hour events reviewed; nursing and respiratory care staff consulted; no adverse overnight events reported to me; resting in bed; remains on supplemental oxygen; seen by G.I. team for anemia and heme +ve stools; no hemoptysis orm other gross bleeding Objective Vital Signs - 12hr 09/15/20 09/15/20 09/15/20 07:53 08:00 09:18 Temperature 97.7 F Pulse Rate 86 Pulse Rate [ 81 Bilateral] Respiratory 20 Rate Respiratory 14 Rate [Bilateral ] Blood Pressure 118/77 O2 Sat by Pulse 99 96 Oximetry 09/15/20 09/15/20 10:00 11:48 Temperature 98.3 F Pulse Rate 96 H 48 L Pulse Rate [ Bilateral] Respiratory 20 Rate Respiratory Rate [Bilateral ] Blood Pressure 106/58 O2 Sat by Pulse 91 Oximetry Constitutional: no acute distress, other (mildly increased work of breathing at rest) Eyes: non-icteric ENT: oropharynx moist Neck: supple, no JVD Effort: mildly labored Ascultation: Bilateral: diminished breath sounds, rhonchi, other (Prolonged expiratory phase.) Percussion: Bilateral: not dull Cardiovascular: regular rate and rhythm Gastrointestinal: normoactive bowel sounds, soft, non-tender, non-distended Integumentary: normal Extremities: no cyanosis, no edema, pulses normal, no ischemia or petechiae Neurologic: normal mental status, non-focal exam, pupils equal and round, motor strength normal and Psychiatric: mood appropriate, affect normal CBC and BMP: 09/16/20 04:36 09/15/20 04:18 ABG, PT/INR, D-dimer: ABG ABG pH 7.471 (7.320-7.450) H 09/14/20 10:27 POC ABG pCO2 62.3 mmHg (32.0-48.0) H 09/14/20 10:27 POC ABG pO2 96.7 mmHg (83-108) 09/14/20 10:27 POC ABG HCO3 44.4 09/14/20 10:27 ABG O2 Saturation 97.3 (0-100) 09/14/20 10:27 Abnormal lab findings: Abnormal Labs 08/24/20 08/24/20 08/25/20 19:29 19:29 07:00 WBC RBC 3.36 L Hgb 9.7 L Hct 28.5 L MCH MCHC RDW 20.6 H Plt Count Lymph # (Auto) Seg Neutrophils % Seg Neuts % (Manual) 97.0 H Lymphocytes % (Manual) 1.0 L Seg Neutrophils # Man 10.2 H Abs Lymphs (Manual) Lymphocytes # (Manual) 0.1 L ABG pH POC ABG pCO2 POC ABG pO2 ABG Hemoglobin ABG Oxyhemoglobin ABG Potassium ABG Chloride ABG Glucose Sodium Potassium 3.3 L Chloride Carbon Dioxide BUN Glucose 121 H POC Glucose 211 H Calcium 7.6 L Magnesium TIBC Alkaline Phosphatase 154 H Albumin 3.4 L Arterial Blood Glucose Arterial Blood Ionized Calcium Lymph Enumerat CD4/CD8 % CD3 Cells Absolute CD3 Count % CD4 Cells Absolute CD4 Count Absolute CD8 Count Absolute CD19 Count Crossmatch 08/25/20 08/25/20 08/25/20 07:21 07:21 12:06 WBC RBC 3.13 L Hgb 8.9 L Hct 26.5 L MCH MCHC RDW 20.6 H Plt Count Lymph # (Auto) Seg Neutrophils % Seg Neuts % (Manual) 96.0 H Lymphocytes % (Manual) 3.0 L Seg Neutrophils # Man Abs Lymphs (Manual) Lymphocytes # (Manual) 0.2 L ABG pH POC ABG pCO2 POC ABG pO2 ABG Hemoglobin ABG Oxyhemoglobin ABG Potassium ABG Chloride ABG Glucose Sodium Potassium Chloride Carbon Dioxide 31 H BUN Glucose 208 H POC Glucose 162 H Calcium 7.4 L Magnesium TIBC Alkaline Phosphatase Albumin Arterial Blood Glucose Arterial Blood Ionized Calcium Lymph Enumerat CD4/CD8 % CD3 Cells Absolute CD3 Count % CD4 Cells Absolute CD4 Count Absolute CD8 Count Absolute CD19 Count Crossmatch 08/25/20 08/25/20 08/26/20 17:01 21:52 05:09 WBC 14.9 H RBC 3.11 L Hgb 8.9 L Hct 26.7 L MCH MCHC RDW 20.6 H Plt Count Lymph # (Auto) Seg Neutrophils % Seg Neuts % (Manual) Lymphocytes % (Manual) Seg Neutrophils # Man Abs Lymphs (Manual) Lymphocytes # (Manual) ABG pH POC ABG pCO2 POC ABG pO2 ABG Hemoglobin ABG Oxyhemoglobin ABG Potassium ABG Chloride ABG Glucose Sodium Potassium Chloride Carbon Dioxide BUN Glucose POC Glucose 158 H 175 H Calcium Magnesium TIBC Alkaline Phosphatase Albumin Arterial Blood Glucose Arterial Blood Ionized Calcium Lymph Enumerat CD4/CD8 % CD3 Cells Absolute CD3 Count % CD4 Cells Absolute CD4 Count Absolute CD8 Count Absolute CD19 Count Crossmatch 08/26/20 08/26/20 08/26/20 05:09 07:21 11:21 WBC RBC Hgb Hct MCH MCHC RDW Plt Count Lymph # (Auto) Seg Neutrophils % Seg Neuts % (Manual) Lymphocytes % (Manual) Seg Neutrophils # Man Abs Lymphs (Manual) Lymphocytes # (Manual) ABG pH POC ABG pCO2 POC ABG pO2 ABG Hemoglobin ABG Oxyhemoglobin ABG Potassium ABG Chloride ABG Glucose Sodium Potassium Chloride Carbon Dioxide 31 H BUN 21 H Glucose 183 H POC Glucose 149 H 145 H Calcium 7.0 L Magnesium TIBC Alkaline Phosphatase Albumin Arterial Blood Glucose Arterial Blood Ionized Calcium Lymph Enumerat CD4/CD8 % CD3 Cells Absolute CD3 Count % CD4 Cells Absolute CD4 Count Absolute CD8 Count Absolute CD19 Count Crossmatch 08/26/20 08/26/20 08/27/20 16:49 21:19 04:41 WBC 11.5 H RBC 2.93 L Hgb 8.0 L Hct 25.2 L MCH 27 L MCHC RDW 21.0 H Plt Count Lymph # (Auto) Seg Neutrophils % Seg Neuts % (Manual) Lymphocytes % (Manual) Seg Neutrophils # Man Abs Lymphs (Manual) Lymphocytes # (Manual) ABG pH POC ABG pCO2 POC ABG pO2 ABG Hemoglobin ABG Oxyhemoglobin ABG Potassium ABG Chloride ABG Glucose Sodium Potassium Chloride Carbon Dioxide BUN Glucose POC Glucose 177 H 144 H Calcium Magnesium TIBC Alkaline Phosphatase Albumin Arterial Blood Glucose Arterial Blood Ionized Calcium Lymph Enumerat CD4/CD8 % CD3 Cells Absolute CD3 Count % CD4 Cells Absolute CD4 Count Absolute CD8 Count Absolute CD19 Count Crossmatch 08/27/20 08/27/20 08/27/20 04:41 07:25 07:30 WBC RBC Hgb Hct MCH MCHC RDW Plt Count Lymph # (Auto) Seg Neutrophils % Seg Neuts % (Manual) Lymphocytes % (Manual) Seg Neutrophils # Man Abs Lymphs (Manual) Lymphocytes # (Manual) ABG pH POC ABG pCO2 POC ABG pO2 ABG Hemoglobin ABG Oxyhemoglobin ABG Potassium ABG Chloride ABG Glucose Sodium Potassium Chloride Carbon Dioxide 35 H BUN 24 H Glucose 173 H POC Glucose 153 H 143 H Calcium 7.3 L Magnesium TIBC Alkaline Phosphatase Albumin Arterial Blood Glucose Arterial Blood Ionized Calcium Lymph Enumerat CD4/CD8 % CD3 Cells Absolute CD3 Count % CD4 Cells Absolute CD4 Count Absolute CD8 Count Absolute CD19 Count Crossmatch 08/27/20 08/27/20 08/27/20 11:27 15:49 21:17 WBC RBC Hgb Hct MCH MCHC RDW Plt Count Lymph # (Auto) Seg Neutrophils % Seg Neuts % (Manual) Lymphocytes % (Manual) Seg Neutrophils # Man Abs Lymphs (Manual) Lymphocytes # (Manual) ABG pH POC ABG pCO2 POC ABG pO2 ABG Hemoglobin ABG Oxyhemoglobin ABG Potassium ABG Chloride ABG Glucose Sodium Potassium Chloride Carbon Dioxide BUN Glucose POC Glucose 236 H 184 H 144 H Calcium Magnesium TIBC Alkaline Phosphatase Albumin Arterial Blood Glucose Arterial Blood Ionized Calcium Lymph Enumerat CD4/CD8 % CD3 Cells Absolute CD3 Count % CD4 Cells Absolute CD4 Count Absolute CD8 Count Absolute CD19 Count Crossmatch 08/28/20 08/28/20 08/28/20 05:55 05:55 07:25 WBC RBC 2.58 L Hgb 7.6 L Hct 22.1 L MCH MCHC 35 H RDW 20.3 H Plt Count Lymph # (Auto) Seg Neutrophils % Seg Neuts % (Manual) Lymphocytes % (Manual) Seg Neutrophils # Man Abs Lymphs (Manual) Lymphocytes # (Manual) ABG pH POC ABG pCO2 POC ABG pO2 ABG Hemoglobin ABG Oxyhemoglobin ABG Potassium ABG Chloride ABG Glucose Sodium Potassium 3.5 L Chloride Carbon Dioxide BUN 33 H Glucose 183 H POC Glucose 164 H Calcium 6.8 L Magnesium TIBC Alkaline Phosphatase Albumin Arterial Blood Glucose Arterial Blood Ionized Calcium Lymph Enumerat CD4/CD8 % CD3 Cells Absolute CD3 Count % CD4 Cells Absolute CD4 Count Absolute CD8 Count Absolute CD19 Count Crossmatch 08/28/20 08/28/20 08/28/20 11:00 12:06 15:28 WBC RBC Hgb Hct MCH MCHC RDW Plt Count Lymph # (Auto) Seg Neutrophils % Seg Neuts % (Manual) Lymphocytes % (Manual) Seg Neutrophils # Man Abs Lymphs (Manual) Lymphocytes # (Manual) ABG pH 7.316 L POC ABG pCO2 68.0 H POC ABG pO2 75.4 L ABG Hemoglobin 8.3 L ABG Oxyhemoglobin 92.5 L ABG Potassium ABG Chloride ABG Glucose 302 H Sodium Potassium Chloride Carbon Dioxide BUN Glucose POC Glucose 233 H 146 H Calcium Magnesium TIBC Alkaline Phosphatase Albumin Arterial Blood Glucose 302 H Arterial Blood Ionized Calcium 3.8 L Lymph Enumerat CD4/CD8 % CD3 Cells Absolute CD3 Count % CD4 Cells Absolute CD4 Count Absolute CD8 Count Absolute CD19 Count Crossmatch 08/28/20 08/29/20 08/29/20 21:34 07:26 12:05 WBC RBC Hgb Hct MCH MCHC RDW Plt Count Lymph # (Auto) Seg Neutrophils % Seg Neuts % (Manual) Lymphocytes % (Manual) Seg Neutrophils # Man Abs Lymphs (Manual) Lymphocytes # (Manual) ABG pH POC ABG pCO2 POC ABG pO2 ABG Hemoglobin ABG Oxyhemoglobin ABG Potassium ABG Chloride ABG Glucose Sodium Potassium Chloride Carbon Dioxide BUN Glucose POC Glucose 201 H 167 H 253 H Calcium Magnesium TIBC Alkaline Phosphatase Albumin Arterial Blood Glucose Arterial Blood Ionized Calcium Lymph Enumerat CD4/CD8 % CD3 Cells Absolute CD3 Count % CD4 Cells Absolute CD4 Count Absolute CD8 Count Absolute CD19 Count Crossmatch 08/29/20 08/29/20 08/30/20 16:32 21:56 07:53 WBC RBC Hgb Hct MCH MCHC RDW Plt Count Lymph # (Auto) Seg Neutrophils % Seg Neuts % (Manual) Lymphocytes % (Manual) Seg Neutrophils # Man Abs Lymphs (Manual) Lymphocytes # (Manual) ABG pH POC ABG pCO2 POC ABG pO2 ABG Hemoglobin ABG Oxyhemoglobin ABG Potassium ABG Chloride ABG Glucose Sodium Potassium Chloride Carbon Dioxide BUN Glucose POC Glucose 128 H 220 H 286 H Calcium Magnesium TIBC Alkaline Phosphatase Albumin Arterial Blood Glucose Arterial Blood Ionized Calcium Lymph Enumerat CD4/CD8 % CD3 Cells Absolute CD3 Count % CD4 Cells Absolute CD4 Count Absolute CD8 Count Absolute CD19 Count Crossmatch 08/30/20 08/30/20 08/30/20 11:29 17:32 22:03 WBC RBC Hgb Hct MCH MCHC RDW Plt Count Lymph # (Auto) Seg Neutrophils % Seg Neuts % (Manual) Lymphocytes % (Manual) Seg Neutrophils # Man Abs Lymphs (Manual) Lymphocytes # (Manual) ABG pH POC ABG pCO2 POC ABG pO2 ABG Hemoglobin ABG Oxyhemoglobin ABG Potassium ABG Chloride ABG Glucose Sodium Potassium Chloride Carbon Dioxide BUN Glucose POC Glucose 299 H 260 H 196 H Calcium Magnesium TIBC Alkaline Phosphatase Albumin Arterial Blood Glucose Arterial Blood Ionized Calcium Lymph Enumerat CD4/CD8 % CD3 Cells Absolute CD3 Count % CD4 Cells Absolute CD4 Count Absolute CD8 Count Absolute CD19 Count Crossmatch 08/31/20 08/31/20 08/31/20 07:41 11:26 16:19 WBC RBC Hgb Hct MCH MCHC RDW Plt Count Lymph # (Auto) Seg Neutrophils % Seg Neuts % (Manual) Lymphocytes % (Manual) Seg Neutrophils # Man Abs Lymphs (Manual) Lymphocytes # (Manual) ABG pH POC ABG pCO2 POC ABG pO2 ABG Hemoglobin ABG Oxyhemoglobin ABG Potassium ABG Chloride ABG Glucose Sodium Potassium Chloride Carbon Dioxide BUN Glucose POC Glucose 166 H 269 H 265 H Calcium Magnesium TIBC Alkaline Phosphatase Albumin Arterial Blood Glucose Arterial Blood Ionized Calcium Lymph Enumerat CD4/CD8 % CD3 Cells Absolute CD3 Count % CD4 Cells Absolute CD4 Count Absolute CD8 Count Absolute CD19 Count Crossmatch 08/31/20 09/01/20 09/01/20 20:44 07:40 11:39 WBC RBC Hgb Hct MCH MCHC RDW Plt Count Lymph # (Auto) Seg Neutrophils % Seg Neuts % (Manual) Lymphocytes % (Manual) Seg Neutrophils # Man Abs Lymphs (Manual) Lymphocytes # (Manual) ABG pH POC ABG pCO2 POC ABG pO2 ABG Hemoglobin ABG Oxyhemoglobin ABG Potassium ABG Chloride ABG Glucose Sodium Potassium Chloride Carbon Dioxide BUN Glucose POC Glucose 243 H 272 H 320 H Calcium Magnesium TIBC Alkaline Phosphatase Albumin Arterial Blood Glucose Arterial Blood Ionized Calcium Lymph Enumerat CD4/CD8 % CD3 Cells Absolute CD3 Count % CD4 Cells Absolute CD4 Count Absolute CD8 Count Absolute CD19 Count Crossmatch 09/01/20 09/01/20 09/02/20 16:16 21:59 08:32 WBC RBC Hgb Hct MCH MCHC RDW Plt Count Lymph # (Auto) Seg Neutrophils % Seg Neuts % (Manual) Lymphocytes % (Manual) Seg Neutrophils # Man Abs Lymphs (Manual) Lymphocytes # (Manual) ABG pH POC ABG pCO2 POC ABG pO2 ABG Hemoglobin ABG Oxyhemoglobin ABG Potassium ABG Chloride ABG Glucose Sodium Potassium Chloride Carbon Dioxide BUN Glucose POC Glucose 319 H 157 H 195 H Calcium Magnesium TIBC Alkaline Phosphatase Albumin Arterial Blood Glucose Arterial Blood Ionized Calcium Lymph Enumerat CD4/CD8 % CD3 Cells Absolute CD3 Count % CD4 Cells Absolute CD4 Count Absolute CD8 Count Absolute CD19 Count Crossmatch 09/02/20 09/02/20 09/03/20 11:44 20:09 05:02 WBC RBC 2.25 L Hgb 6.5 L Hct 19.7 L* MCH MCHC RDW 21.3 H Plt Count Lymph # (Auto) Seg Neutrophils % Seg Neuts % (Manual) Lymphocytes % (Manual) Seg Neutrophils # Man Abs Lymphs (Manual) Lymphocytes # (Manual) ABG pH POC ABG pCO2 POC ABG pO2 ABG Hemoglobin ABG Oxyhemoglobin ABG Potassium ABG Chloride ABG Glucose Sodium Potassium Chloride Carbon Dioxide BUN Glucose POC Glucose 167 H 214 H Calcium Magnesium TIBC Alkaline Phosphatase Albumin Arterial Blood Glucose Arterial Blood Ionized Calcium Lymph Enumerat CD4/CD8 % CD3 Cells Absolute CD3 Count % CD4 Cells Absolute CD4 Count Absolute CD8 Count Absolute CD19 Count Crossmatch 09/03/20 09/03/20 09/03/20 05:02 07:35 09:56 WBC RBC Hgb Hct MCH MCHC RDW Plt Count Lymph # (Auto) Seg Neutrophils % Seg Neuts % (Manual) Lymphocytes % (Manual) Seg Neutrophils # Man Abs Lymphs (Manual) Lymphocytes # (Manual) ABG pH POC ABG pCO2 POC ABG pO2 ABG Hemoglobin ABG Oxyhemoglobin ABG Potassium ABG Chloride ABG Glucose Sodium 149 H Potassium 3.3 L Chloride Carbon Dioxide 38 H BUN 30 H Glucose 212 H POC Glucose 207 H Calcium 6.7 L Magnesium TIBC Alkaline Phosphatase Albumin Arterial Blood Glucose Arterial Blood Ionized Calcium Lymph Enumerat CD4/CD8 % CD3 Cells Absolute CD3 Count % CD4 Cells Absolute CD4 Count Absolute CD8 Count Absolute CD19 Count Crossmatch See Detail 09/03/20 09/03/20 09/04/20 12:05 16:04 05:53 WBC 14.8 H RBC 2.99 L Hgb 8.6 L Hct 26.4 L D MCH MCHC RDW 19.0 H Plt Count Lymph # (Auto) Seg Neutrophils % Seg Neuts % (Manual) Lymphocytes % (Manual) Seg Neutrophils # Man Abs Lymphs (Manual) Lymphocytes # (Manual) ABG pH POC ABG pCO2 POC ABG pO2 ABG Hemoglobin ABG Oxyhemoglobin ABG Potassium ABG Chloride ABG Glucose Sodium Potassium Chloride Carbon Dioxide BUN Glucose POC Glucose 193 H 174 H Calcium Magnesium TIBC Alkaline Phosphatase Albumin Arterial Blood Glucose Arterial Blood Ionized Calcium Lymph Enumerat CD4/CD8 % CD3 Cells Absolute CD3 Count % CD4 Cells Absolute CD4 Count Absolute CD8 Count Absolute CD19 Count Crossmatch 09/04/20 09/04/20 09/04/20 05:53 05:53 08:33 WBC RBC Hgb Hct MCH MCHC RDW Plt Count Lymph # (Auto) Seg Neutrophils % Seg Neuts % (Manual) Lymphocytes % (Manual) Seg Neutrophils # Man Abs Lymphs (Manual) 98 L Lymphocytes # (Manual) ABG pH POC ABG pCO2 POC ABG pO2 ABG Hemoglobin ABG Oxyhemoglobin ABG Potassium ABG Chloride ABG Glucose Sodium 149 H Potassium Chloride Carbon Dioxide 39 H BUN 28 H Glucose 175 H POC Glucose 222 H Calcium 6.9 L Magnesium TIBC 214 L Alkaline Phosphatase Albumin Arterial Blood Glucose Arterial Blood Ionized Calcium Lymph Enumerat CD4/CD8 0.68 L % CD3 Cells 51 L Absolute CD3 Count 50 L % CD4 Cells 20 L Absolute CD4 Count 20 L Absolute CD8 Count 29 L Absolute CD19 Count 17 L Crossmatch 09/04/20 09/04/20 09/05/20 11:21 15:42 04:56 WBC RBC 2.88 L Hgb 8.6 L Hct 25.3 L MCH MCHC RDW 19.6 H Plt Count Lymph # (Auto) Seg Neutrophils % Seg Neuts % (Manual) Lymphocytes % (Manual) Seg Neutrophils # Man Abs Lymphs (Manual) Lymphocytes # (Manual) ABG pH POC ABG pCO2 POC ABG pO2 ABG Hemoglobin ABG Oxyhemoglobin ABG Potassium ABG Chloride ABG Glucose Sodium Potassium Chloride Carbon Dioxide BUN Glucose POC Glucose 253 H 240 H Calcium Magnesium TIBC Alkaline Phosphatase Albumin Arterial Blood Glucose Arterial Blood Ionized Calcium Lymph Enumerat CD4/CD8 % CD3 Cells Absolute CD3 Count % CD4 Cells Absolute CD4 Count Absolute CD8 Count Absolute CD19 Count Crossmatch 09/05/20 09/05/20 09/05/20 04:56 07:31 12:01 WBC RBC Hgb Hct MCH MCHC RDW Plt Count Lymph # (Auto) Seg Neutrophils % Seg Neuts % (Manual) Lymphocytes % (Manual) Seg Neutrophils # Man Abs Lymphs (Manual) Lymphocytes # (Manual) ABG pH POC ABG pCO2 POC ABG pO2 ABG Hemoglobin ABG Oxyhemoglobin ABG Potassium ABG Chloride ABG Glucose Sodium 149 H Potassium 3.1 L Chloride Carbon Dioxide 48 H* D BUN 24 H Glucose 142 H POC Glucose 131 H 124 H Calcium 6.5 L Magnesium TIBC Alkaline Phosphatase Albumin Arterial Blood Glucose Arterial Blood Ionized Calcium Lymph Enumerat CD4/CD8 % CD3 Cells Absolute CD3 Count % CD4 Cells Absolute CD4 Count Absolute CD8 Count Absolute CD19 Count Crossmatch 09/05/20 09/05/20 09/06/20 16:52 20:19 04:26 WBC RBC Hgb Hct MCH MCHC RDW Plt Count Lymph # (Auto) Seg Neutrophils % Seg Neuts % (Manual) Lymphocytes % (Manual) Seg Neutrophils # Man Abs Lymphs (Manual) Lymphocytes # (Manual) ABG pH POC ABG pCO2 POC ABG pO2 ABG Hemoglobin ABG Oxyhemoglobin ABG Potassium ABG Chloride ABG Glucose Sodium 151 H Potassium 3.3 L Chloride Carbon Dioxide 44 H* BUN 24 H Glucose POC Glucose 168 H 130 H Calcium 5.8 L* Magnesium TIBC Alkaline Phosphatase Albumin Arterial Blood Glucose Arterial Blood Ionized Calcium Lymph Enumerat CD4/CD8 % CD3 Cells Absolute CD3 Count % CD4 Cells Absolute CD4 Count Absolute CD8 Count Absolute CD19 Count Crossmatch 09/06/20 09/06/20 09/06/20 11:51 15:19 20:20 WBC RBC Hgb Hct MCH MCHC RDW Plt Count Lymph # (Auto) Seg Neutrophils % Seg Neuts % (Manual) Lymphocytes % (Manual) Seg Neutrophils # Man Abs Lymphs (Manual) Lymphocytes # (Manual) ABG pH POC ABG pCO2 POC ABG pO2 ABG Hemoglobin ABG Oxyhemoglobin ABG Potassium ABG Chloride ABG Glucose Sodium Potassium Chloride Carbon Dioxide BUN Glucose POC Glucose 150 H 113 H 138 H Calcium Magnesium TIBC Alkaline Phosphatase Albumin Arterial Blood Glucose Arterial Blood Ionized Calcium Lymph Enumerat CD4/CD8 % CD3 Cells Absolute CD3 Count % CD4 Cells Absolute CD4 Count Absolute CD8 Count Absolute CD19 Count Crossmatch 09/07/20 09/07/20 09/07/20 07:41 09:41 11:47 WBC RBC Hgb Hct MCH MCHC RDW Plt Count Lymph # (Auto) Seg Neutrophils % Seg Neuts % (Manual) Lymphocytes % (Manual) Seg Neutrophils # Man Abs Lymphs (Manual) Lymphocytes # (Manual) ABG pH POC ABG pCO2 POC ABG pO2 ABG Hemoglobin ABG Oxyhemoglobin ABG Potassium ABG Chloride ABG Glucose Sodium 146 H Potassium Chloride Carbon Dioxide 43 H* BUN 24 H Glucose 186 H POC Glucose 118 H 198 H Calcium 6.1 L Magnesium TIBC Alkaline Phosphatase Albumin Arterial Blood Glucose Arterial Blood Ionized Calcium Lymph Enumerat CD4/CD8 % CD3 Cells Absolute CD3 Count % CD4 Cells Absolute CD4 Count Absolute CD8 Count Absolute CD19 Count Crossmatch 09/07/20 09/08/20 09/08/20 21:58 05:09 07:55 WBC RBC Hgb Hct MCH MCHC RDW Plt Count Lymph # (Auto) Seg Neutrophils % Seg Neuts % (Manual) Lymphocytes % (Manual) Seg Neutrophils # Man Abs Lymphs (Manual) Lymphocytes # (Manual) ABG pH POC ABG pCO2 POC ABG pO2 ABG Hemoglobin ABG Oxyhemoglobin ABG Potassium ABG Chloride ABG Glucose Sodium 146 H Potassium Chloride Carbon Dioxide 47 H* BUN Glucose 120 H POC Glucose 215 H 110 H Calcium 6.1 L Magnesium TIBC Alkaline Phosphatase Albumin Arterial Blood Glucose Arterial Blood Ionized Calcium Lymph Enumerat CD4/CD8 % CD3 Cells Absolute CD3 Count % CD4 Cells Absolute CD4 Count Absolute CD8 Count Absolute CD19 Count Crossmatch 09/08/20 09/08/20 09/08/20 11:27 16:46 20:17 WBC RBC Hgb Hct MCH MCHC RDW Plt Count Lymph # (Auto) Seg Neutrophils % Seg Neuts % (Manual) Lymphocytes % (Manual) Seg Neutrophils # Man Abs Lymphs (Manual) Lymphocytes # (Manual) ABG pH POC ABG pCO2 POC ABG pO2 ABG Hemoglobin ABG Oxyhemoglobin ABG Potassium ABG Chloride ABG Glucose Sodium Potassium Chloride Carbon Dioxide BUN Glucose POC Glucose 113 H 139 H 122 H Calcium Magnesium TIBC Alkaline Phosphatase Albumin Arterial Blood Glucose Arterial Blood Ionized Calcium Lymph Enumerat CD4/CD8 % CD3 Cells Absolute CD3 Count % CD4 Cells Absolute CD4 Count Absolute CD8 Count Absolute CD19 Count Crossmatch 09/09/20 09/09/20 09/09/20 08:08 11:28 16:22 WBC RBC Hgb Hct MCH MCHC RDW Plt Count Lymph # (Auto) Seg Neutrophils % Seg Neuts % (Manual) Lymphocytes % (Manual) Seg Neutrophils # Man Abs Lymphs (Manual) Lymphocytes # (Manual) ABG pH POC ABG pCO2 POC ABG pO2 ABG Hemoglobin ABG Oxyhemoglobin ABG Potassium ABG Chloride ABG Glucose Sodium Potassium Chloride Carbon Dioxide BUN Glucose POC Glucose 107 H 113 H 108 H Calcium Magnesium TIBC Alkaline Phosphatase Albumin Arterial Blood Glucose Arterial Blood Ionized Calcium Lymph Enumerat CD4/CD8 % CD3 Cells Absolute CD3 Count % CD4 Cells Absolute CD4 Count Absolute CD8 Count Absolute CD19 Count Crossmatch 09/10/20 09/10/20 09/10/20 11:55 16:10 20:56 WBC RBC Hgb Hct MCH MCHC RDW Plt Count Lymph # (Auto) Seg Neutrophils % Seg Neuts % (Manual) Lymphocytes % (Manual) Seg Neutrophils # Man Abs Lymphs (Manual) Lymphocytes # (Manual) ABG pH POC ABG pCO2 POC ABG pO2 ABG Hemoglobin ABG Oxyhemoglobin ABG Potassium ABG Chloride ABG Glucose Sodium Potassium Chloride Carbon Dioxide BUN Glucose POC Glucose 156 H 127 H 311 H Calcium Magnesium TIBC Alkaline Phosphatase Albumin Arterial Blood Glucose Arterial Blood Ionized Calcium Lymph Enumerat CD4/CD8 % CD3 Cells Absolute CD3 Count % CD4 Cells Absolute CD4 Count Absolute CD8 Count Absolute CD19 Count Crossmatch 09/11/20 09/11/20 09/11/20 04:07 07:41 11:19 WBC RBC Hgb Hct MCH MCHC RDW Plt Count Lymph # (Auto) Seg Neutrophils % Seg Neuts % (Manual) Lymphocytes % (Manual) Seg Neutrophils # Man Abs Lymphs (Manual) Lymphocytes # (Manual) ABG pH POC ABG pCO2 POC ABG pO2 ABG Hemoglobin ABG Oxyhemoglobin ABG Potassium ABG Chloride ABG Glucose Sodium Potassium Chloride 95.1 L Carbon Dioxide 48 H* BUN Glucose 135 H POC Glucose 151 H 152 H Calcium 6.1 L Magnesium TIBC Alkaline Phosphatase Albumin Arterial Blood Glucose Arterial Blood Ionized Calcium Lymph Enumerat CD4/CD8 % CD3 Cells Absolute CD3 Count % CD4 Cells Absolute CD4 Count Absolute CD8 Count Absolute CD19 Count Crossmatch 09/11/20 09/11/20 09/12/20 16:45 20:22 08:12 WBC RBC Hgb Hct MCH MCHC RDW Plt Count Lymph # (Auto) Seg Neutrophils % Seg Neuts % (Manual) Lymphocytes % (Manual) Seg Neutrophils # Man Abs Lymphs (Manual) Lymphocytes # (Manual) ABG pH POC ABG pCO2 POC ABG pO2 ABG Hemoglobin ABG Oxyhemoglobin ABG Potassium ABG Chloride ABG Glucose Sodium Potassium Chloride Carbon Dioxide BUN Glucose POC Glucose 156 H 220 H 202 H Calcium Magnesium TIBC Alkaline Phosphatase Albumin Arterial Blood Glucose Arterial Blood Ionized Calcium Lymph Enumerat CD4/CD8 % CD3 Cells Absolute CD3 Count % CD4 Cells Absolute CD4 Count Absolute CD8 Count Absolute CD19 Count Crossmatch 09/12/20 09/12/20 09/12/20 10:52 12:37 16:47 WBC RBC Hgb Hct MCH MCHC RDW Plt Count Lymph # (Auto) Seg Neutrophils % Seg Neuts % (Manual) Lymphocytes % (Manual) Seg Neutrophils # Man Abs Lymphs (Manual) Lymphocytes # (Manual) ABG pH POC ABG pCO2 POC ABG pO2 ABG Hemoglobin ABG Oxyhemoglobin ABG Potassium ABG Chloride ABG Glucose Sodium Potassium Chloride Carbon Dioxide BUN Glucose POC Glucose 62 L 170 H 261 H Calcium Magnesium TIBC Alkaline Phosphatase Albumin Arterial Blood Glucose Arterial Blood Ionized Calcium Lymph Enumerat CD4/CD8 % CD3 Cells Absolute CD3 Count % CD4 Cells Absolute CD4 Count Absolute CD8 Count Absolute CD19 Count Crossmatch 09/13/20 09/13/20 09/13/20 00:40 07:25 11:15 WBC RBC Hgb Hct MCH MCHC RDW Plt Count Lymph # (Auto) Seg Neutrophils % Seg Neuts % (Manual) Lymphocytes % (Manual) Seg Neutrophils # Man Abs Lymphs (Manual) Lymphocytes # (Manual) ABG pH POC ABG pCO2 POC ABG pO2 ABG Hemoglobin ABG Oxyhemoglobin ABG Potassium ABG Chloride ABG Glucose Sodium Potassium Chloride Carbon Dioxide BUN Glucose POC Glucose 134 H 158 H 130 H Calcium Magnesium TIBC Alkaline Phosphatase Albumin Arterial Blood Glucose Arterial Blood Ionized Calcium Lymph Enumerat CD4/CD8 % CD3 Cells Absolute CD3 Count % CD4 Cells Absolute CD4 Count Absolute CD8 Count Absolute CD19 Count Crossmatch 09/13/20 09/13/20 09/14/20 15:30 20:37 10:27 WBC RBC Hgb Hct MCH MCHC RDW Plt Count Lymph # (Auto) Seg Neutrophils % Seg Neuts % (Manual) Lymphocytes % (Manual) Seg Neutrophils # Man Abs Lymphs (Manual) Lymphocytes # (Manual) ABG pH 7.471 H POC ABG pCO2 62.3 H POC ABG pO2 ABG Hemoglobin 8.2 L ABG Oxyhemoglobin ABG Potassium 3.1 L ABG Chloride 94.0 L ABG Glucose 189 H Sodium Potassium Chloride Carbon Dioxide BUN Glucose POC Glucose 147 H 159 H Calcium Magnesium TIBC Alkaline Phosphatase Albumin Arterial Blood Glucose 189 H Arterial Blood Ionized Calcium 3.0 L Lymph Enumerat CD4/CD8 % CD3 Cells Absolute CD3 Count % CD4 Cells Absolute CD4 Count Absolute CD8 Count Absolute CD19 Count Crossmatch 09/14/20 09/14/20 09/14/20 11:48 17:11 21:56 WBC RBC Hgb Hct MCH MCHC RDW Plt Count Lymph # (Auto) Seg Neutrophils % Seg Neuts % (Manual) Lymphocytes % (Manual) Seg Neutrophils # Man Abs Lymphs (Manual) Lymphocytes # (Manual) ABG pH POC ABG pCO2 POC ABG pO2 ABG Hemoglobin ABG Oxyhemoglobin ABG Potassium ABG Chloride ABG Glucose Sodium Potassium Chloride Carbon Dioxide BUN Glucose POC Glucose 187 H 145 H 221 H Calcium Magnesium TIBC Alkaline Phosphatase Albumin Arterial Blood Glucose Arterial Blood Ionized Calcium Lymph Enumerat CD4/CD8 % CD3 Cells Absolute CD3 Count % CD4 Cells Absolute CD4 Count Absolute CD8 Count Absolute CD19 Count Crossmatch 09/15/20 09/15/20 09/15/20 04:18 04:18 10:43 WBC RBC 1.73 L Hgb 5.3 L* Hct 16.1 L* MCH MCHC RDW 21.7 H Plt Count 136 L Lymph # (Auto) 0.8 L Seg Neutrophils % 81.3 H Seg Neuts % (Manual) Lymphocytes % (Manual) Seg Neutrophils # Man Abs Lymphs (Manual) Lymphocytes # (Manual) ABG pH POC ABG pCO2 POC ABG pO2 ABG Hemoglobin ABG Oxyhemoglobin ABG Potassium ABG Chloride ABG Glucose Sodium 146 H Potassium 3.5 L Chloride 97.7 L Carbon Dioxide 42 H* BUN Glucose 102 H POC Glucose Calcium 5.5 L* Magnesium 1.60 L TIBC Alkaline Phosphatase Albumin Arterial Blood Glucose Arterial Blood Ionized Calcium Lymph Enumerat CD4/CD8 % CD3 Cells Absolute CD3 Count % CD4 Cells Absolute CD4 Count Absolute CD8 Count Absolute CD19 Count Crossmatch See Detail 09/15/20 09/15/20 10:43 12:41 WBC RBC Hgb 5.9 L* Hct 18.5 L* MCH MCHC RDW Plt Count Lymph # (Auto) Seg Neutrophils % Seg Neuts % (Manual) Lymphocytes % (Manual) Seg Neutrophils # Man Abs Lymphs (Manual) Lymphocytes # (Manual) ABG pH POC ABG pCO2 POC ABG pO2 ABG Hemoglobin ABG Oxyhemoglobin ABG Potassium ABG Chloride ABG Glucose Sodium Potassium Chloride Carbon Dioxide BUN Glucose POC Glucose 119 H Calcium Magnesium TIBC Alkaline Phosphatase Albumin Arterial Blood Glucose Arterial Blood Ionized Calcium Lymph Enumerat CD4/CD8 % CD3 Cells Absolute CD3 Count % CD4 Cells Absolute CD4 Count Absolute CD8 Count Absolute CD19 Count Crossmatch Allied health notes reviewed: nursing
[2020-09-15] MEDS: MONTELUKAST 10 MG TAB PO SCH (21:49)
[2020-09-15] MEDS: MIRTAZAPINE 15 MG TAB PO SCH (21:50)
[2020-09-16] MEDS: IPRATROPIUM 0.02% NEBU 2.5 ML IH SCH ×4 (00:57→21:47)
[2020-09-16] MEDS: LEVALBUTEROL 0.63 MG/3 ML NEBU IH SCH ×4 (00:57→21:47)
[2020-09-16 04:59] LABS: Basophils % (Auto) 0.6 % (0.0-1.8); Eosinophils % (Auto) 0.4 % (0.0-4.3); Hemoglobin 8.8 gm/dl (11.8-15.2); Lymphocytes # (Auto) 0.8 K/mm3 (1.2-5.4); Lymphocytes % (Auto) 16.6 % (13.4-35.0); Mean Corpuscular HGB Conc 34 % (32-34); Mean Corpuscular Volume 93 fl (84-94); Monocytes # (Auto) 0.4 K/mm3 (0.0-0.8); Monocytes % (Auto) 8.9 % (0.0-7.3); Platelet Count 151 K/mm3 (140-440); Red Blood Count 2.79 M/mm3 (3.65-5.03)
[2020-09-16] MEDS: HEPARIN 5,000 UNIT/1 ML VIAL SUB-Q SCH ×3 (06:48→21:01)
[2020-09-16] MEDS: BUDESONIDE 0.5 MG/2 ML NEBU IH SCH ×2 (08:14→21:47)
[2020-09-16] MEDS: ARFORMOTEROL 15 MCG/2 ML NEBU IH SCH ×2 (08:15→21:47)
[2020-09-16] MEDS: INSULIN NPH/REGULAR 70/30 INJ SUB-Q SCH ×2 (09:45→17:48)
[2020-09-16] MEDS: predniSONE 20 MG TAB PO SCH (09:45)
[2020-09-16] MEDS: MULTIVITAMINS ,THERAPEUTIC TAB PO SCH (09:45)
[2020-09-16] MEDS: FE FUMARATE/FA/MV, MIN COMB#15 CAP (HEMOCYTE PLUS) PO SCH (09:45)
[2020-09-16] MEDS: PANTOPRAZOLE 40 MG TAB PO SCH (09:46)
[2020-09-16] MEDS: ASPIRIN EC 81 MG TAB PO SCH (09:46)
[2020-09-16] MEDS: POLYETHYLENE GLYCOL 3350 17 GM POWDER PO SCH (09:46)
[2020-09-16] MEDS: CALCIUM CARBONATE 500 MG TAB CHEW PO SCH ×3 (09:46→21:00)
[2020-09-16] MEDS: carvediloL 6.25 MG TAB PO SCH ×2 (09:46→21:00)
--- NOTE | 2020-09-16 16:07 | Gastroenterology Progress Note ---
Assessment and Plan GI: h/o pud now anemia, heme + stool - h/h stable after transfusion - PPI qd - diet as tolerated - no plans to scope at this time - will follow - ok to dc from GI standpoint Subjective Date of service: 09/16/20 Principal diagnosis: Ac hypoxemic resp failure; AE-COPD; ANGELIC; HIV +ve; HTN; Cocaine Use Interval history: - no signs bleeding overnight. No GI complaints Objective - Constitutional Vitals: Temp Pulse Resp BP Pulse Ox 98.9 F 68 18 117/62 99 09/16/20 07:33 09/16/20 10:00 09/16/20 07:33 09/16/20 07:33 09/16/20 07:33 General appearance: no acute distress - EENT Eyes: PERRL - Respiratory Respiratory: bilateral: CTA - Cardiovascular Rhythm: regular Heart Sounds: Present: S1 & S2 - Gastrointestinal General gastrointestinal: Present: soft, non-tender, non-distended - Labs CBC & Chem 7: 09/16/20 04:36 09/15/20 04:18 Labs: Laboratory Results - last 24 hr 09/03/20 09/15/20 09/15/20 09:56 10:43 23:48 WBC RBC Hgb Hct MCV MCH MCHC RDW Plt Count Lymph % (Auto) [place] % (Auto) Eos % (Auto) Baso % (Auto) Lymph # (Auto) [place] # (Auto) Eos # (Auto) Baso # (Auto) Seg Neutrophils % Seg Neutrophils # POC Glucose 187 H Magnesium Blood Type A POSITIVE Antibody Screen Negative Crossmatch See Detail See Detail 09/16/20 09/16/20 09/16/20 04:36 04:36 07:30 WBC 4.9 RBC 2.79 L Hgb 8.8 L Hct 26.0 L D MCV 93 MCH 32 MCHC 34 RDW 17.0 H Plt Count 151 Lymph % (Auto) 16.6 [place] % (Auto) 8.9 H Eos % (Auto) 0.4 Baso % (Auto) 0.6 Lymph # (Auto) 0.8 L [place] # (Auto) 0.4 Eos # (Auto) 0.0 Baso # (Auto) 0.0 Seg Neutrophils % 73.5 H Seg Neutrophils # 3.6 POC Glucose 79 Magnesium 1.80 Blood Type Antibody Screen Crossmatch 09/16/20 09/16/20 10:53 15:53 WBC RBC Hgb Hct MCV MCH MCHC RDW Plt Count Lymph % (Auto) [place] % (Auto) Eos % (Auto) Baso % (Auto) Lymph # (Auto) [place] # (Auto) Eos # (Auto) Baso # (Auto) Seg Neutrophils % Seg Neutrophils # POC Glucose 122 H 196 H Magnesium Blood Type Antibody Screen Crossmatch
--- NOTE | 2020-09-16 17:35 | Progress Note ---
Assessment and Plan Acute hypoxemic respiratory failure Acute COPD exacerbation ANGELIC GERD (gastroesophageal reflux disease) HIV (human immunodeficiency virus infection) Hypertension Cocaine use Tobacco use disorder Acute hypoxemic respiratory failure Acute COPD exacerbation ANGELIC GERD (gastroesophageal reflux disease) HIV (human immunodeficiency virus infection) Hypertension Cocaine use Tobacco use disorder - continue PPI therapy - continue low dose Prednisone for severe COPD exacerbation but taper to 10 mg dose daily - continue to wean supplemental oxygen to keep O2 sats > 89-90% - no new issues, continue care as below; - prn CXR's & ABG's at this point - discharge planning ok pulmonary-rodriguez - continue Bronchodilators (HEIDI & LABA) with pulm hygiene per RT - continue inhaled corticosteroids - avoid nephrotoxins, renally dose all medications - continue mobility protocols to prevent pressure ulcers - PT/OT as tolerated - Wound care per RN/WCT - continue accuchecks with glycemic control per SSI for target blood glucose < 180 mg/dL - tobacco abstinence strongly counseled at the bedside - home oxygen evaluation at discharge - GI & VTE prophylaxis - Flu & pneumovax per protocol - Pulmonary out patient follow up for PFTs and optimization of respiratory status - continue other care per attending / other consultants - prn analgesia per pain score ... re-evaluate in am & prn Subjective Date of service: 09/16/20 Principal diagnosis: Ac hypoxemic resp failure; AE-COPD; ANGELIC; HIV +ve; HTN; Cocaine Use Interval history: Patient is seen today for: Acute hypoxemic respiratory failure; AE-COPD; ANGELIC; HIV infection; HTN; Cocaine use; Tobacco use disorder Seen and examined at bedside; 24hour events reviewed; nursing and respiratory care staff consulted; no adverse overnight events reported to me; resting in bed; remains on supplemental oxygen; no gross G.I. bleeding; denies chest pains or palpitations Objective Vital Signs - 12hr 09/16/20 09/16/20 09/16/20 07:33 10:00 10:54 Temperature 98.9 F 98.0 F Pulse Rate 68 68 93 H Respiratory 18 16 Rate Blood Pressure 117/62 123/72 O2 Sat by Pulse 99 94 Oximetry Constitutional: appears uncomfortable, other (mildly increased work of breathing at rest) Eyes: non-icteric ENT: oropharynx moist Neck: supple, no JVD Effort: mildly labored Ascultation: Bilateral: diminished breath sounds, rhonchi, other (Prolonged expiratory phase.) Percussion: Bilateral: not dull Cardiovascular: regular rate and rhythm Gastrointestinal: normoactive bowel sounds, soft, non-tender, non-distended Integumentary: normal Extremities: no cyanosis, no edema, pulses normal, no ischemia or petechiae Neurologic: normal mental status, non-focal exam, pupils equal and round, motor strength normal and Psychiatric: mood appropriate, affect normal CBC and BMP: 09/16/20 04:36 09/15/20 04:18 ABG, PT/INR, D-dimer: ABG ABG pH 7.471 (7.320-7.450) H 09/14/20 10:27 POC ABG pCO2 62.3 mmHg (32.0-48.0) H 09/14/20 10:27 POC ABG pO2 96.7 mmHg (83-108) 09/14/20 10:27 POC ABG HCO3 44.4 09/14/20 10:27 ABG O2 Saturation 97.3 (0-100) 09/14/20 10:27 Abnormal lab findings: Abnormal Labs 08/24/20 08/24/20 08/25/20 19:29 19:29 07:00 WBC RBC 3.36 L Hgb 9.7 L Hct 28.5 L MCH MCHC RDW 20.6 H Plt Count Young % (Auto) Lymph # (Auto) Seg Neutrophils % Seg Neuts % (Manual) 97.0 H Lymphocytes % (Manual) 1.0 L Seg Neutrophils # Man 10.2 H Abs Lymphs (Manual) Lymphocytes # (Manual) 0.1 L ABG pH POC ABG pCO2 POC ABG pO2 ABG Hemoglobin ABG Oxyhemoglobin ABG Potassium ABG Chloride ABG Glucose Sodium Potassium 3.3 L Chloride Carbon Dioxide BUN Glucose 121 H POC Glucose 211 H Calcium 7.6 L Magnesium TIBC Alkaline Phosphatase 154 H Albumin 3.4 L Arterial Blood Glucose Arterial Blood Ionized Calcium Lymph Enumerat CD4/CD8 % CD3 Cells Absolute CD3 Count % CD4 Cells Absolute CD4 Count Absolute CD8 Count Absolute CD19 Count Crossmatch 08/25/20 08/25/20 08/25/20 07:21 07:21 12:06 WBC RBC 3.13 L Hgb 8.9 L Hct 26.5 L MCH MCHC RDW 20.6 H Plt Count Young % (Auto) Lymph # (Auto) Seg Neutrophils % Seg Neuts % (Manual) 96.0 H Lymphocytes % (Manual) 3.0 L Seg Neutrophils # Man Abs Lymphs (Manual) Lymphocytes # (Manual) 0.2 L ABG pH POC ABG pCO2 POC ABG pO2 ABG Hemoglobin ABG Oxyhemoglobin ABG Potassium ABG Chloride ABG Glucose Sodium Potassium Chloride Carbon Dioxide 31 H BUN Glucose 208 H POC Glucose 162 H Calcium 7.4 L Magnesium TIBC Alkaline Phosphatase Albumin Arterial Blood Glucose Arterial Blood Ionized Calcium Lymph Enumerat CD4/CD8 % CD3 Cells Absolute CD3 Count % CD4 Cells Absolute CD4 Count Absolute CD8 Count Absolute CD19 Count Crossmatch 08/25/20 08/25/20 08/26/20 17:01 21:52 05:09 WBC 14.9 H RBC 3.11 L Hgb 8.9 L Hct 26.7 L MCH MCHC RDW 20.6 H Plt Count Young % (Auto) Lymph # (Auto) Seg Neutrophils % Seg Neuts % (Manual) Lymphocytes % (Manual) Seg Neutrophils # Man Abs Lymphs (Manual) Lymphocytes # (Manual) ABG pH POC ABG pCO2 POC ABG pO2 ABG Hemoglobin ABG Oxyhemoglobin ABG Potassium ABG Chloride ABG Glucose Sodium Potassium Chloride Carbon Dioxide BUN Glucose POC Glucose 158 H 175 H Calcium Magnesium TIBC Alkaline Phosphatase Albumin Arterial Blood Glucose Arterial Blood Ionized Calcium Lymph Enumerat CD4/CD8 % CD3 Cells Absolute CD3 Count % CD4 Cells Absolute CD4 Count Absolute CD8 Count Absolute CD19 Count Crossmatch 08/26/20 08/26/20 08/26/20 05:09 07:21 11:21 WBC RBC Hgb Hct MCH MCHC RDW Plt Count Young % (Auto) Lymph # (Auto) Seg Neutrophils % Seg Neuts % (Manual) Lymphocytes % (Manual) Seg Neutrophils # Man Abs Lymphs (Manual) Lymphocytes # (Manual) ABG pH POC ABG pCO2 POC ABG pO2 ABG Hemoglobin ABG Oxyhemoglobin ABG Potassium ABG Chloride ABG Glucose Sodium Potassium Chloride Carbon Dioxide 31 H BUN 21 H Glucose 183 H POC Glucose 149 H 145 H Calcium 7.0 L Magnesium TIBC Alkaline Phosphatase Albumin Arterial Blood Glucose Arterial Blood Ionized Calcium Lymph Enumerat CD4/CD8 % CD3 Cells Absolute CD3 Count % CD4 Cells Absolute CD4 Count Absolute CD8 Count Absolute CD19 Count Crossmatch 08/26/20 08/26/20 08/27/20 16:49 21:19 04:41 WBC 11.5 H RBC 2.93 L Hgb 8.0 L Hct 25.2 L MCH 27 L MCHC RDW 21.0 H Plt Count Young % (Auto) Lymph # (Auto) Seg Neutrophils % Seg Neuts % (Manual) Lymphocytes % (Manual) Seg Neutrophils # Man Abs Lymphs (Manual) Lymphocytes # (Manual) ABG pH POC ABG pCO2 POC ABG pO2 ABG Hemoglobin ABG Oxyhemoglobin ABG Potassium ABG Chloride ABG Glucose Sodium Potassium Chloride Carbon Dioxide BUN Glucose POC Glucose 177 H 144 H Calcium Magnesium TIBC Alkaline Phosphatase Albumin Arterial Blood Glucose Arterial Blood Ionized Calcium Lymph Enumerat CD4/CD8 % CD3 Cells Absolute CD3 Count % CD4 Cells Absolute CD4 Count Absolute CD8 Count Absolute CD19 Count Crossmatch 08/27/20 08/27/20 08/27/20 04:41 07:25 07:30 WBC RBC Hgb Hct MCH MCHC RDW Plt Count Young % (Auto) Lymph # (Auto) Seg Neutrophils % Seg Neuts % (Manual) Lymphocytes % (Manual) Seg Neutrophils # Man Abs Lymphs (Manual) Lymphocytes # (Manual) ABG pH POC ABG pCO2 POC ABG pO2 ABG Hemoglobin ABG Oxyhemoglobin ABG Potassium ABG Chloride ABG Glucose Sodium Potassium Chloride Carbon Dioxide 35 H BUN 24 H Glucose 173 H POC Glucose 153 H 143 H Calcium 7.3 L Magnesium TIBC Alkaline Phosphatase Albumin Arterial Blood Glucose Arterial Blood Ionized Calcium Lymph Enumerat CD4/CD8 % CD3 Cells Absolute CD3 Count % CD4 Cells Absolute CD4 Count Absolute CD8 Count Absolute CD19 Count Crossmatch 08/27/20 08/27/20 08/27/20 11:27 15:49 21:17 WBC RBC Hgb Hct MCH MCHC RDW Plt Count Young % (Auto) Lymph # (Auto) Seg Neutrophils % Seg Neuts % (Manual) Lymphocytes % (Manual) Seg Neutrophils # Man Abs Lymphs (Manual) Lymphocytes # (Manual) ABG pH POC ABG pCO2 POC ABG pO2 ABG Hemoglobin ABG Oxyhemoglobin ABG Potassium ABG Chloride ABG Glucose Sodium Potassium Chloride Carbon Dioxide BUN Glucose POC Glucose 236 H 184 H 144 H Calcium Magnesium TIBC Alkaline Phosphatase Albumin Arterial Blood Glucose Arterial Blood Ionized Calcium Lymph Enumerat CD4/CD8 % CD3 Cells Absolute CD3 Count % CD4 Cells Absolute CD4 Count Absolute CD8 Count Absolute CD19 Count Crossmatch 08/28/20 08/28/20 08/28/20 05:55 05:55 07:25 WBC RBC 2.58 L Hgb 7.6 L Hct 22.1 L MCH MCHC 35 H RDW 20.3 H Plt Count Young % (Auto) Lymph # (Auto) Seg Neutrophils % Seg Neuts % (Manual) Lymphocytes % (Manual) Seg Neutrophils # Man Abs Lymphs (Manual) Lymphocytes # (Manual) ABG pH POC ABG pCO2 POC ABG pO2 ABG Hemoglobin ABG Oxyhemoglobin ABG Potassium ABG Chloride ABG Glucose Sodium Potassium 3.5 L Chloride Carbon Dioxide BUN 33 H Glucose 183 H POC Glucose 164 H Calcium 6.8 L Magnesium TIBC Alkaline Phosphatase Albumin Arterial Blood Glucose Arterial Blood Ionized Calcium Lymph Enumerat CD4/CD8 % CD3 Cells Absolute CD3 Count % CD4 Cells Absolute CD4 Count Absolute CD8 Count Absolute CD19 Count Crossmatch 08/28/20 08/28/20 08/28/20 11:00 12:06 15:28 WBC RBC Hgb Hct MCH MCHC RDW Plt Count Young % (Auto) Lymph # (Auto) Seg Neutrophils % Seg Neuts % (Manual) Lymphocytes % (Manual) Seg Neutrophils # Man Abs Lymphs (Manual) Lymphocytes # (Manual) ABG pH 7.316 L POC ABG pCO2 68.0 H POC ABG pO2 75.4 L ABG Hemoglobin 8.3 L ABG Oxyhemoglobin 92.5 L ABG Potassium ABG Chloride ABG Glucose 302 H Sodium Potassium Chloride Carbon Dioxide BUN Glucose POC Glucose 233 H 146 H Calcium Magnesium TIBC Alkaline Phosphatase Albumin Arterial Blood Glucose 302 H Arterial Blood Ionized Calcium 3.8 L Lymph Enumerat CD4/CD8 % CD3 Cells Absolute CD3 Count % CD4 Cells Absolute CD4 Count Absolute CD8 Count Absolute CD19 Count Crossmatch 08/28/20 08/29/20 08/29/20 21:34 07:26 12:05 WBC RBC Hgb Hct MCH MCHC RDW Plt Count Young % (Auto) Lymph # (Auto) Seg Neutrophils % Seg Neuts % (Manual) Lymphocytes % (Manual) Seg Neutrophils # Man Abs Lymphs (Manual) Lymphocytes # (Manual) ABG pH POC ABG pCO2 POC ABG pO2 ABG Hemoglobin ABG Oxyhemoglobin ABG Potassium ABG Chloride ABG Glucose Sodium Potassium Chloride Carbon Dioxide BUN Glucose POC Glucose 201 H 167 H 253 H Calcium Magnesium TIBC Alkaline Phosphatase Albumin Arterial Blood Glucose Arterial Blood Ionized Calcium Lymph Enumerat CD4/CD8 % CD3 Cells Absolute CD3 Count % CD4 Cells Absolute CD4 Count Absolute CD8 Count Absolute CD19 Count Crossmatch 08/29/20 08/29/20 08/30/20 16:32 21:56 07:53 WBC RBC Hgb Hct MCH MCHC RDW Plt Count Young % (Auto) Lymph # (Auto) Seg Neutrophils % Seg Neuts % (Manual) Lymphocytes % (Manual) Seg Neutrophils # Man Abs Lymphs (Manual) Lymphocytes # (Manual) ABG pH POC ABG pCO2 POC ABG pO2 ABG Hemoglobin ABG Oxyhemoglobin ABG Potassium ABG Chloride ABG Glucose Sodium Potassium Chloride Carbon Dioxide BUN Glucose POC Glucose 128 H 220 H 286 H Calcium Magnesium TIBC Alkaline Phosphatase Albumin Arterial Blood Glucose Arterial Blood Ionized Calcium Lymph Enumerat CD4/CD8 % CD3 Cells Absolute CD3 Count % CD4 Cells Absolute CD4 Count Absolute CD8 Count Absolute CD19 Count Crossmatch 08/30/20 08/30/20 08/30/20 11:29 17:32 22:03 WBC RBC Hgb Hct MCH MCHC RDW Plt Count Young % (Auto) Lymph # (Auto) Seg Neutrophils % Seg Neuts % (Manual) Lymphocytes % (Manual) Seg Neutrophils # Man Abs Lymphs (Manual) Lymphocytes # (Manual) ABG pH POC ABG pCO2 POC ABG pO2 ABG Hemoglobin ABG Oxyhemoglobin ABG Potassium ABG Chloride ABG Glucose Sodium Potassium Chloride Carbon Dioxide BUN Glucose POC Glucose 299 H 260 H 196 H Calcium Magnesium TIBC Alkaline Phosphatase Albumin Arterial Blood Glucose Arterial Blood Ionized Calcium Lymph Enumerat CD4/CD8 % CD3 Cells Absolute CD3 Count % CD4 Cells Absolute CD4 Count Absolute CD8 Count Absolute CD19 Count Crossmatch 08/31/20 08/31/20 08/31/20 07:41 11:26 16:19 WBC RBC Hgb Hct MCH MCHC RDW Plt Count Young % (Auto) Lymph # (Auto) Seg Neutrophils % Seg Neuts % (Manual) Lymphocytes % (Manual) Seg Neutrophils # Man Abs Lymphs (Manual) Lymphocytes # (Manual) ABG pH POC ABG pCO2 POC ABG pO2 ABG Hemoglobin ABG Oxyhemoglobin ABG Potassium ABG Chloride ABG Glucose Sodium Potassium Chloride Carbon Dioxide BUN Glucose POC Glucose 166 H 269 H 265 H Calcium Magnesium TIBC Alkaline Phosphatase Albumin Arterial Blood Glucose Arterial Blood Ionized Calcium Lymph Enumerat CD4/CD8 % CD3 Cells Absolute CD3 Count % CD4 Cells Absolute CD4 Count Absolute CD8 Count Absolute CD19 Count Crossmatch 08/31/20 09/01/20 09/01/20 20:44 07:40 11:39 WBC RBC Hgb Hct MCH MCHC RDW Plt Count Young % (Auto) Lymph # (Auto) Seg Neutrophils % Seg Neuts % (Manual) Lymphocytes % (Manual) Seg Neutrophils # Man Abs Lymphs (Manual) Lymphocytes # (Manual) ABG pH POC ABG pCO2 POC ABG pO2 ABG Hemoglobin ABG Oxyhemoglobin ABG Potassium ABG Chloride ABG Glucose Sodium Potassium Chloride Carbon Dioxide BUN Glucose POC Glucose 243 H 272 H 320 H Calcium Magnesium TIBC Alkaline Phosphatase Albumin Arterial Blood Glucose Arterial Blood Ionized Calcium Lymph Enumerat CD4/CD8 % CD3 Cells Absolute CD3 Count % CD4 Cells Absolute CD4 Count Absolute CD8 Count Absolute CD19 Count Crossmatch 09/01/20 09/01/20 09/02/20 16:16 21:59 08:32 WBC RBC Hgb Hct MCH MCHC RDW Plt Count Young % (Auto) Lymph # (Auto) Seg Neutrophils % Seg Neuts % (Manual) Lymphocytes % (Manual) Seg Neutrophils # Man Abs Lymphs (Manual) Lymphocytes # (Manual) ABG pH POC ABG pCO2 POC ABG pO2 ABG Hemoglobin ABG Oxyhemoglobin ABG Potassium ABG Chloride ABG Glucose Sodium Potassium Chloride Carbon Dioxide BUN Glucose POC Glucose 319 H 157 H 195 H Calcium Magnesium TIBC Alkaline Phosphatase Albumin Arterial Blood Glucose Arterial Blood Ionized Calcium Lymph Enumerat CD4/CD8 % CD3 Cells Absolute CD3 Count % CD4 Cells Absolute CD4 Count Absolute CD8 Count Absolute CD19 Count Crossmatch 09/02/20 09/02/20 09/03/20 11:44 20:09 05:02 WBC RBC 2.25 L Hgb 6.5 L Hct 19.7 L* MCH MCHC RDW 21.3 H Plt Count Young % (Auto) Lymph # (Auto) Seg Neutrophils % Seg Neuts % (Manual) Lymphocytes % (Manual) Seg Neutrophils # Man Abs Lymphs (Manual) Lymphocytes # (Manual) ABG pH POC ABG pCO2 POC ABG pO2 ABG Hemoglobin ABG Oxyhemoglobin ABG Potassium ABG Chloride ABG Glucose Sodium Potassium Chloride Carbon Dioxide BUN Glucose POC Glucose 167 H 214 H Calcium Magnesium TIBC Alkaline Phosphatase Albumin Arterial Blood Glucose Arterial Blood Ionized Calcium Lymph Enumerat CD4/CD8 % CD3 Cells Absolute CD3 Count % CD4 Cells Absolute CD4 Count Absolute CD8 Count Absolute CD19 Count Crossmatch 09/03/20 09/03/20 09/03/20 05:02 07:35 09:56 WBC RBC Hgb Hct MCH MCHC RDW Plt Count Young % (Auto) Lymph # (Auto) Seg Neutrophils % Seg Neuts % (Manual) Lymphocytes % (Manual) Seg Neutrophils # Man Abs Lymphs (Manual) Lymphocytes # (Manual) ABG pH POC ABG pCO2 POC ABG pO2 ABG Hemoglobin ABG Oxyhemoglobin ABG Potassium ABG Chloride ABG Glucose Sodium 149 H Potassium 3.3 L Chloride Carbon Dioxide 38 H BUN 30 H Glucose 212 H POC Glucose 207 H Calcium 6.7 L Magnesium TIBC Alkaline Phosphatase Albumin Arterial Blood Glucose Arterial Blood Ionized Calcium Lymph Enumerat CD4/CD8 % CD3 Cells Absolute CD3 Count % CD4 Cells Absolute CD4 Count Absolute CD8 Count Absolute CD19 Count Crossmatch See Detail 09/03/20 09/03/20 09/04/20 12:05 16:04 05:53 WBC 14.8 H RBC 2.99 L Hgb 8.6 L Hct 26.4 L D MCH MCHC RDW 19.0 H Plt Count Young % (Auto) Lymph # (Auto) Seg Neutrophils % Seg Neuts % (Manual) Lymphocytes % (Manual) Seg Neutrophils # Man Abs Lymphs (Manual) Lymphocytes # (Manual) ABG pH POC ABG pCO2 POC ABG pO2 ABG Hemoglobin ABG Oxyhemoglobin ABG Potassium ABG Chloride ABG Glucose Sodium Potassium Chloride Carbon Dioxide BUN Glucose POC Glucose 193 H 174 H Calcium Magnesium TIBC Alkaline Phosphatase Albumin Arterial Blood Glucose Arterial Blood Ionized Calcium Lymph Enumerat CD4/CD8 % CD3 Cells Absolute CD3 Count % CD4 Cells Absolute CD4 Count Absolute CD8 Count Absolute CD19 Count Crossmatch 09/04/20 09/04/20 09/04/20 05:53 05:53 08:33 WBC RBC Hgb Hct MCH MCHC RDW Plt Count Young % (Auto) Lymph # (Auto) Seg Neutrophils % Seg Neuts % (Manual) Lymphocytes % (Manual) Seg Neutrophils # Man Abs Lymphs (Manual) 98 L Lymphocytes # (Manual) ABG pH POC ABG pCO2 POC ABG pO2 ABG Hemoglobin ABG Oxyhemoglobin ABG Potassium ABG Chloride ABG Glucose Sodium 149 H Potassium Chloride Carbon Dioxide 39 H BUN 28 H Glucose 175 H POC Glucose 222 H Calcium 6.9 L Magnesium TIBC 214 L Alkaline Phosphatase Albumin Arterial Blood Glucose Arterial Blood Ionized Calcium Lymph Enumerat CD4/CD8 0.68 L % CD3 Cells 51 L Absolute CD3 Count 50 L % CD4 Cells 20 L Absolute CD4 Count 20 L Absolute CD8 Count 29 L Absolute CD19 Count 17 L Crossmatch 09/04/20 09/04/20 09/05/20 11:21 15:42 04:56 WBC RBC 2.88 L Hgb 8.6 L Hct 25.3 L MCH MCHC RDW 19.6 H Plt Count Young % (Auto) Lymph # (Auto) Seg Neutrophils % Seg Neuts % (Manual) Lymphocytes % (Manual) Seg Neutrophils # Man Abs Lymphs (Manual) Lymphocytes # (Manual) ABG pH POC ABG pCO2 POC ABG pO2 ABG Hemoglobin ABG Oxyhemoglobin ABG Potassium ABG Chloride ABG Glucose Sodium Potassium Chloride Carbon Dioxide BUN Glucose POC Glucose 253 H 240 H Calcium Magnesium TIBC Alkaline Phosphatase Albumin Arterial Blood Glucose Arterial Blood Ionized Calcium Lymph Enumerat CD4/CD8 % CD3 Cells Absolute CD3 Count % CD4 Cells Absolute CD4 Count Absolute CD8 Count Absolute CD19 Count Crossmatch 09/05/20 09/05/20 09/05/20 04:56 07:31 12:01 WBC RBC Hgb Hct MCH MCHC RDW Plt Count Young % (Auto) Lymph # (Auto) Seg Neutrophils % Seg Neuts % (Manual) Lymphocytes % (Manual) Seg Neutrophils # Man Abs Lymphs (Manual) Lymphocytes # (Manual) ABG pH POC ABG pCO2 POC ABG pO2 ABG Hemoglobin ABG Oxyhemoglobin ABG Potassium ABG Chloride ABG Glucose Sodium 149 H Potassium 3.1 L Chloride Carbon Dioxide 48 H* D BUN 24 H Glucose 142 H POC Glucose 131 H 124 H Calcium 6.5 L Magnesium TIBC Alkaline Phosphatase Albumin Arterial Blood Glucose Arterial Blood Ionized Calcium Lymph Enumerat CD4/CD8 % CD3 Cells Absolute CD3 Count % CD4 Cells Absolute CD4 Count Absolute CD8 Count Absolute CD19 Count Crossmatch 09/05/20 09/05/20 09/06/20 16:52 20:19 04:26 WBC RBC Hgb Hct MCH MCHC RDW Plt Count Young % (Auto) Lymph # (Auto) Seg Neutrophils % Seg Neuts % (Manual) Lymphocytes % (Manual) Seg Neutrophils # Man Abs Lymphs (Manual) Lymphocytes # (Manual) ABG pH POC ABG pCO2 POC ABG pO2 ABG Hemoglobin ABG Oxyhemoglobin ABG Potassium ABG Chloride ABG Glucose Sodium 151 H Potassium 3.3 L Chloride Carbon Dioxide 44 H* BUN 24 H Glucose POC Glucose 168 H 130 H Calcium 5.8 L* Magnesium TIBC Alkaline Phosphatase Albumin Arterial Blood Glucose Arterial Blood Ionized Calcium Lymph Enumerat CD4/CD8 % CD3 Cells Absolute CD3 Count % CD4 Cells Absolute CD4 Count Absolute CD8 Count Absolute CD19 Count Crossmatch 09/06/20 09/06/20 09/06/20 11:51 15:19 20:20 WBC RBC Hgb Hct MCH MCHC RDW Plt Count Young % (Auto) Lymph # (Auto) Seg Neutrophils % Seg Neuts % (Manual) Lymphocytes % (Manual) Seg Neutrophils # Man Abs Lymphs (Manual) Lymphocytes # (Manual) ABG pH POC ABG pCO2 POC ABG pO2 ABG Hemoglobin ABG Oxyhemoglobin ABG Potassium ABG Chloride ABG Glucose Sodium Potassium Chloride Carbon Dioxide BUN Glucose POC Glucose 150 H 113 H 138 H Calcium Magnesium TIBC Alkaline Phosphatase Albumin Arterial Blood Glucose Arterial Blood Ionized Calcium Lymph Enumerat CD4/CD8 % CD3 Cells Absolute CD3 Count % CD4 Cells Absolute CD4 Count Absolute CD8 Count Absolute CD19 Count Crossmatch 09/07/20 09/07/20 09/07/20 07:41 09:41 11:47 WBC RBC Hgb Hct MCH MCHC RDW Plt Count Young % (Auto) Lymph # (Auto) Seg Neutrophils % Seg Neuts % (Manual) Lymphocytes % (Manual) Seg Neutrophils # Man Abs Lymphs (Manual) Lymphocytes # (Manual) ABG pH POC ABG pCO2 POC ABG pO2 ABG Hemoglobin ABG Oxyhemoglobin ABG Potassium ABG Chloride ABG Glucose Sodium 146 H Potassium Chloride Carbon Dioxide 43 H* BUN 24 H Glucose 186 H POC Glucose 118 H 198 H Calcium 6.1 L Magnesium TIBC Alkaline Phosphatase Albumin Arterial Blood Glucose Arterial Blood Ionized Calcium Lymph Enumerat CD4/CD8 % CD3 Cells Absolute CD3 Count % CD4 Cells Absolute CD4 Count Absolute CD8 Count Absolute CD19 Count Crossmatch 09/07/20 09/08/20 09/08/20 21:58 05:09 07:55 WBC RBC Hgb Hct MCH MCHC RDW Plt Count Young % (Auto) Lymph # (Auto) Seg Neutrophils % Seg Neuts % (Manual) Lymphocytes % (Manual) Seg Neutrophils # Man Abs Lymphs (Manual) Lymphocytes # (Manual) ABG pH POC ABG pCO2 POC ABG pO2 ABG Hemoglobin ABG Oxyhemoglobin ABG Potassium ABG Chloride ABG Glucose Sodium 146 H Potassium Chloride Carbon Dioxide 47 H* BUN Glucose 120 H POC Glucose 215 H 110 H Calcium 6.1 L Magnesium TIBC Alkaline Phosphatase Albumin Arterial Blood Glucose Arterial Blood Ionized Calcium Lymph Enumerat CD4/CD8 % CD3 Cells Absolute CD3 Count % CD4 Cells Absolute CD4 Count Absolute CD8 Count Absolute CD19 Count Crossmatch 09/08/20 09/08/20 09/08/20 11:27 16:46 20:17 WBC RBC Hgb Hct MCH MCHC RDW Plt Count Young % (Auto) Lymph # (Auto) Seg Neutrophils % Seg Neuts % (Manual) Lymphocytes % (Manual) Seg Neutrophils # Man Abs Lymphs (Manual) Lymphocytes # (Manual) ABG pH POC ABG pCO2 POC ABG pO2 ABG Hemoglobin ABG Oxyhemoglobin ABG Potassium ABG Chloride ABG Glucose Sodium Potassium Chloride Carbon Dioxide BUN Glucose POC Glucose 113 H 139 H 122 H Calcium Magnesium TIBC Alkaline Phosphatase Albumin Arterial Blood Glucose Arterial Blood Ionized Calcium Lymph Enumerat CD4/CD8 % CD3 Cells Absolute CD3 Count % CD4 Cells Absolute CD4 Count Absolute CD8 Count Absolute CD19 Count Crossmatch 09/09/20 09/09/20 09/09/20 08:08 11:28 16:22 WBC RBC Hgb Hct MCH MCHC RDW Plt Count Young % (Auto) Lymph # (Auto) Seg Neutrophils % Seg Neuts % (Manual) Lymphocytes % (Manual) Seg Neutrophils # Man Abs Lymphs (Manual) Lymphocytes # (Manual) ABG pH POC ABG pCO2 POC ABG pO2 ABG Hemoglobin ABG Oxyhemoglobin ABG Potassium ABG Chloride ABG Glucose Sodium Potassium Chloride Carbon Dioxide BUN Glucose POC Glucose 107 H 113 H 108 H Calcium Magnesium TIBC Alkaline Phosphatase Albumin Arterial Blood Glucose Arterial Blood Ionized Calcium Lymph Enumerat CD4/CD8 % CD3 Cells Absolute CD3 Count % CD4 Cells Absolute CD4 Count Absolute CD8 Count Absolute CD19 Count Crossmatch 09/10/20 09/10/20 09/10/20 11:55 16:10 20:56 WBC RBC Hgb Hct MCH MCHC RDW Plt Count Young % (Auto) Lymph # (Auto) Seg Neutrophils % Seg Neuts % (Manual) Lymphocytes % (Manual) Seg Neutrophils # Man Abs Lymphs (Manual) Lymphocytes # (Manual) ABG pH POC ABG pCO2 POC ABG pO2 ABG Hemoglobin ABG Oxyhemoglobin ABG Potassium ABG Chloride ABG Glucose Sodium Potassium Chloride Carbon Dioxide BUN Glucose POC Glucose 156 H 127 H 311 H Calcium Magnesium TIBC Alkaline Phosphatase Albumin Arterial Blood Glucose Arterial Blood Ionized Calcium Lymph Enumerat CD4/CD8 % CD3 Cells Absolute CD3 Count % CD4 Cells Absolute CD4 Count Absolute CD8 Count Absolute CD19 Count Crossmatch 09/11/20 09/11/20 09/11/20 04:07 07:41 11:19 WBC RBC Hgb Hct MCH MCHC RDW Plt Count Young % (Auto) Lymph # (Auto) Seg Neutrophils % Seg Neuts % (Manual) Lymphocytes % (Manual) Seg Neutrophils # Man Abs Lymphs (Manual) Lymphocytes # (Manual) ABG pH POC ABG pCO2 POC ABG pO2 ABG Hemoglobin ABG Oxyhemoglobin ABG Potassium ABG Chloride ABG Glucose Sodium Potassium Chloride 95.1 L Carbon Dioxide 48 H* BUN Glucose 135 H POC Glucose 151 H 152 H Calcium 6.1 L Magnesium TIBC Alkaline Phosphatase Albumin Arterial Blood Glucose Arterial Blood Ionized Calcium Lymph Enumerat CD4/CD8 % CD3 Cells Absolute CD3 Count % CD4 Cells Absolute CD4 Count Absolute CD8 Count Absolute CD19 Count Crossmatch 09/11/20 09/11/20 09/12/20 16:45 20:22 08:12 WBC RBC Hgb Hct MCH MCHC RDW Plt Count Young % (Auto) Lymph # (Auto) Seg Neutrophils % Seg Neuts % (Manual) Lymphocytes % (Manual) Seg Neutrophils # Man Abs Lymphs (Manual) Lymphocytes # (Manual) ABG pH POC ABG pCO2 POC ABG pO2 ABG Hemoglobin ABG Oxyhemoglobin ABG Potassium ABG Chloride ABG Glucose Sodium Potassium Chloride Carbon Dioxide BUN Glucose POC Glucose 156 H 220 H 202 H Calcium Magnesium TIBC Alkaline Phosphatase Albumin Arterial Blood Glucose Arterial Blood Ionized Calcium Lymph Enumerat CD4/CD8 % CD3 Cells Absolute CD3 Count % CD4 Cells Absolute CD4 Count Absolute CD8 Count Absolute CD19 Count Crossmatch 09/12/20 09/12/20 09/12/20 10:52 12:37 16:47 WBC RBC Hgb Hct MCH MCHC RDW Plt Count Young % (Auto) Lymph # (Auto) Seg Neutrophils % Seg Neuts % (Manual) Lymphocytes % (Manual) Seg Neutrophils # Man Abs Lymphs (Manual) Lymphocytes # (Manual) ABG pH POC ABG pCO2 POC ABG pO2 ABG Hemoglobin ABG Oxyhemoglobin ABG Potassium ABG Chloride ABG Glucose Sodium Potassium Chloride Carbon Dioxide BUN Glucose POC Glucose 62 L 170 H 261 H Calcium Magnesium TIBC Alkaline Phosphatase Albumin Arterial Blood Glucose Arterial Blood Ionized Calcium Lymph Enumerat CD4/CD8 % CD3 Cells Absolute CD3 Count % CD4 Cells Absolute CD4 Count Absolute CD8 Count Absolute CD19 Count Crossmatch 09/13/20 09/13/20 09/13/20 00:40 07:25 11:15 WBC RBC Hgb Hct MCH MCHC RDW Plt Count Young % (Auto) Lymph # (Auto) Seg Neutrophils % Seg Neuts % (Manual) Lymphocytes % (Manual) Seg Neutrophils # Man Abs Lymphs (Manual) Lymphocytes # (Manual) ABG pH POC ABG pCO2 POC ABG pO2 ABG Hemoglobin ABG Oxyhemoglobin ABG Potassium ABG Chloride ABG Glucose Sodium Potassium Chloride Carbon Dioxide BUN Glucose POC Glucose 134 H 158 H 130 H Calcium Magnesium TIBC Alkaline Phosphatase Albumin Arterial Blood Glucose Arterial Blood Ionized Calcium Lymph Enumerat CD4/CD8 % CD3 Cells Absolute CD3 Count % CD4 Cells Absolute CD4 Count Absolute CD8 Count Absolute CD19 Count Crossmatch 09/13/20 09/13/20 09/14/20 15:30 20:37 10:27 WBC RBC Hgb Hct MCH MCHC RDW Plt Count Young % (Auto) Lymph # (Auto) Seg Neutrophils % Seg Neuts % (Manual) Lymphocytes % (Manual) Seg Neutrophils # Man Abs Lymphs (Manual) Lymphocytes # (Manual) ABG pH 7.471 H POC ABG pCO2 62.3 H POC ABG pO2 ABG Hemoglobin 8.2 L ABG Oxyhemoglobin ABG Potassium 3.1 L ABG Chloride 94.0 L ABG Glucose 189 H Sodium Potassium Chloride Carbon Dioxide BUN Glucose POC Glucose 147 H 159 H Calcium Magnesium TIBC Alkaline Phosphatase Albumin Arterial Blood Glucose 189 H Arterial Blood Ionized Calcium 3.0 L Lymph Enumerat CD4/CD8 % CD3 Cells Absolute CD3 Count % CD4 Cells Absolute CD4 Count Absolute CD8 Count Absolute CD19 Count Crossmatch 09/14/20 09/14/20 09/14/20 11:48 17:11 21:56 WBC RBC Hgb Hct MCH MCHC RDW Plt Count Young % (Auto) Lymph # (Auto) Seg Neutrophils % Seg Neuts % (Manual) Lymphocytes % (Manual) Seg Neutrophils # Man Abs Lymphs (Manual) Lymphocytes # (Manual) ABG pH POC ABG pCO2 POC ABG pO2 ABG Hemoglobin ABG Oxyhemoglobin ABG Potassium ABG Chloride ABG Glucose Sodium Potassium Chloride Carbon Dioxide BUN Glucose POC Glucose 187 H 145 H 221 H Calcium Magnesium TIBC Alkaline Phosphatase Albumin Arterial Blood Glucose Arterial Blood Ionized Calcium Lymph Enumerat CD4/CD8 % CD3 Cells Absolute CD3 Count % CD4 Cells Absolute CD4 Count Absolute CD8 Count Absolute CD19 Count Crossmatch 09/15/20 09/15/20 09/15/20 04:18 04:18 10:43 WBC RBC 1.73 L Hgb 5.3 L* Hct 16.1 L* MCH MCHC RDW 21.7 H Plt Count 136 L Young % (Auto) Lymph # (Auto) 0.8 L Seg Neutrophils % 81.3 H Seg Neuts % (Manual) Lymphocytes % (Manual) Seg Neutrophils # Man Abs Lymphs (Manual) Lymphocytes # (Manual) ABG pH POC ABG pCO2 POC ABG pO2 ABG Hemoglobin ABG Oxyhemoglobin ABG Potassium ABG Chloride ABG Glucose Sodium 146 H Potassium 3.5 L Chloride 97.7 L Carbon Dioxide 42 H* BUN Glucose 102 H POC Glucose Calcium 5.5 L* Magnesium 1.60 L TIBC Alkaline Phosphatase Albumin Arterial Blood Glucose Arterial Blood Ionized Calcium Lymph Enumerat CD4/CD8 % CD3 Cells Absolute CD3 Count % CD4 Cells Absolute CD4 Count Absolute CD8 Count Absolute CD19 Count Crossmatch See Detail 09/15/20 09/15/20 09/15/20 10:43 12:41 23:48 WBC RBC Hgb 5.9 L* Hct 18.5 L* MCH MCHC RDW Plt Count Young % (Auto) Lymph # (Auto) Seg Neutrophils % Seg Neuts % (Manual) Lymphocytes % (Manual) Seg Neutrophils # Man Abs Lymphs (Manual) Lymphocytes # (Manual) ABG pH POC ABG pCO2 POC ABG pO2 ABG Hemoglobin ABG Oxyhemoglobin ABG Potassium ABG Chloride ABG Glucose Sodium Potassium Chloride Carbon Dioxide BUN Glucose POC Glucose 119 H 187 H Calcium Magnesium TIBC Alkaline Phosphatase Albumin Arterial Blood Glucose Arterial Blood Ionized Calcium Lymph Enumerat CD4/CD8 % CD3 Cells Absolute CD3 Count % CD4 Cells Absolute CD4 Count Absolute CD8 Count Absolute CD19 Count Crossmatch 09/16/20 09/16/20 09/16/20 04:36 10:53 15:53 WBC RBC 2.79 L Hgb 8.8 L Hct 26.0 L D MCH MCHC RDW 17.0 H Plt Count Young % (Auto) 8.9 H Lymph # (Auto) 0.8 L Seg Neutrophils % 73.5 H Seg Neuts % (Manual) Lymphocytes % (Manual) Seg Neutrophils # Man Abs Lymphs (Manual) Lymphocytes # (Manual) ABG pH POC ABG pCO2 POC ABG pO2 ABG Hemoglobin ABG Oxyhemoglobin ABG Potassium ABG Chloride ABG Glucose Sodium Potassium Chloride Carbon Dioxide BUN Glucose POC Glucose 122 H 196 H Calcium Magnesium TIBC Alkaline Phosphatase Albumin Arterial Blood Glucose Arterial Blood Ionized Calcium Lymph Enumerat CD4/CD8 % CD3 Cells Absolute CD3 Count % CD4 Cells Absolute CD4 Count Absolute CD8 Count Absolute CD19 Count Crossmatch Allied health notes reviewed: nursing
[2020-09-16] MEDS: oxyCODONE /ACETAMINOPHEN 5-325MG TAB PO PRN ×2 (17:48→21:01)
[2020-09-16] MEDS: MONTELUKAST 10 MG TAB PO SCH (21:00)
[2020-09-16] MEDS: MIRTAZAPINE 15 MG TAB PO SCH (21:01)
[2020-09-16] MEDS: INSULIN LISPRO 100 UNIT/ML SUB-Q SCH ×2 (21:14)
[2020-09-17] MEDS: IPRATROPIUM 0.02% NEBU 2.5 ML IH SCH ×5 (01:29→20:37)
[2020-09-17] MEDS: LEVALBUTEROL 0.63 MG/3 ML NEBU IH SCH ×5 (01:29→20:37)
[2020-09-17] MEDS: HEPARIN 5,000 UNIT/1 ML VIAL SUB-Q SCH ×3 (06:02→21:12)
[2020-09-17] MEDS: BUDESONIDE 0.5 MG/2 ML NEBU IH SCH ×3 (09:15→20:37)
[2020-09-17] MEDS: ARFORMOTEROL 15 MCG/2 ML NEBU IH SCH ×3 (09:15→20:37)
[2020-09-17] MEDS: INSULIN NPH/REGULAR 70/30 INJ SUB-Q SCH ×2 (09:52→18:37)
[2020-09-17] MEDS: MULTIVITAMINS ,THERAPEUTIC TAB PO SCH (09:52)
[2020-09-17] MEDS: POLYETHYLENE GLYCOL 3350 17 GM POWDER PO SCH (09:52)
[2020-09-17] MEDS: CALCIUM CARBONATE 500 MG TAB CHEW PO SCH ×3 (09:52→21:12)
[2020-09-17] MEDS: predniSONE 20 MG TAB PO SCH (09:52)
[2020-09-17] MEDS: PANTOPRAZOLE 40 MG TAB PO SCH (09:52)
[2020-09-17] MEDS: FE FUMARATE/FA/MV, MIN COMB#15 CAP (HEMOCYTE PLUS) PO SCH (09:52)
[2020-09-17] MEDS: ASPIRIN EC 81 MG TAB PO SCH (09:52)
[2020-09-17] MEDS: carvediloL 6.25 MG TAB PO SCH ×2 (09:52→21:13)
[2020-09-17] MEDS ORDERED: predniSONE 20 MG TAB PO SCH (15:18)
--- NOTE | 2020-09-17 15:18 | Progress Note ---
Assessment and Plan Acute hypoxemic respiratory failure Acute COPD exacerbation ANGELIC GERD (gastroesophageal reflux disease) HIV (human immunodeficiency virus infection) Hypertension Cocaine use Tobacco use disorder Acute hypoxemic respiratory failure Acute COPD exacerbation ANGELIC GERD (gastroesophageal reflux disease) HIV (human immunodeficiency virus infection) Hypertension Cocaine use Tobacco use disorder - continue low dose Prednisone for severe COPD exacerbation - continue to wean supplemental oxygen to keep O2 sats > 89-90% - no new issues, continue care as below; - prn CXR's & ABG's at this point - discharge planning ok pulmonary-rodriguez - continue Bronchodilators (HEIDI & LABA) with pulm hygiene per RT - continue inhaled corticosteroids - avoid nephrotoxins, renally dose all medications - continue mobility protocols to prevent pressure ulcers - PT/OT as tolerated - Wound care per RN/WCT - continue accuchecks with glycemic control per SSI for target blood glucose < 180 mg/dL - tobacco abstinence strongly counseled at the bedside - home oxygen evaluation at discharge - GI & VTE prophylaxis - Flu & pneumovax per protocol - Pulmonary out patient follow up for PFTs and optimization of respiratory st atus - continue other care per attending / other consultants - prn analgesia per pain score ... re-evaluate in am & prn Subjective Date of service: 09/17/20 Principal diagnosis: Ac hypoxemic resp failure; AE-COPD; ANGELIC; HIV +ve; HTN; Cocaine Use Interval history: Patient is seen today for: Acute hypoxemic respiratory failure; AE-COPD; ANGELIC; HIV infection; HTN; Cocaine use; Tobacco use disorder Seen and examined at bedside; 24hour events reviewed; nursing and respiratory care staff consulted; no adverse overnight events reported to me; resting in bed; remains on supplemental oxygen; Objective Vital Signs - 12hr 09/17/20 09/17/20 09/17/20 05:12 08:46 10:00 Temperature 97.6 F 97.9 F Pulse Rate 74 70 61 Respiratory 20 18 Rate Blood Pressure 140/82 Blood Pressure 140/80 [Left] O2 Sat by Pulse 92 92 Oximetry 09/17/20 12:24 Temperature 97.9 F Pulse Rate 96 H Respiratory 18 Rate Blood Pressure Blood Pressure 140/86 [Left] O2 Sat by Pulse 98 Oximetry Constitutional: appears uncomfortable, other (mildly increased work of breathing at rest) Eyes: non-icteric ENT: oropharynx moist Neck: supple, no JVD Effort: mildly labored Ascultation: Bilateral: diminished breath sounds, wheezes (faint; end expiratory), rhonchi, other (Prolonged expiratory phase.) Percussion: Bilateral: not dull Cardiovascular: regular rate and rhythm Gastrointestinal: normoactive bowel sounds, soft, non-tender, non-distended Integumentary: normal Extremities: no cyanosis, no edema, pulses normal, no ischemia or petechiae Neurologic: normal mental status, non-focal exam, pupils equal and round, motor strength normal and Psychiatric: mood appropriate, affect normal CBC and BMP: 09/16/20 04:36 09/15/20 04:18 ABG, PT/INR, D-dimer: ABG ABG pH 7.471 (7.320-7.450) H 09/14/20 10:27 POC ABG pCO2 62.3 mmHg (32.0-48.0) H 09/14/20 10:27 POC ABG pO2 96.7 mmHg (83-108) 09/14/20 10:27 POC ABG HCO3 44.4 09/14/20 10:27 ABG O2 Saturation 97.3 (0-100) 09/14/20 10:27 Abnormal lab findings: Abnormal Labs 08/24/20 08/24/20 08/25/20 19:29 19:29 07:00 WBC RBC 3.36 L Hgb 9.7 L Hct 28.5 L MCH MCHC RDW 20.6 H Plt Count [place] % (Auto) Lymph # (Auto) Seg Neutrophils % Seg Neuts % (Manual) 97.0 H Lymphocytes % (Manual) 1.0 L Seg Neutrophils # Man 10.2 H Abs Lymphs (Manual) Lymphocytes # (Manual) 0.1 L ABG pH POC ABG pCO2 POC ABG pO2 ABG Hemoglobin ABG Oxyhemoglobin ABG Potassium ABG Chloride ABG Glucose Sodium Potassium 3.3 L Chloride Carbon Dioxide BUN Glucose 121 H POC Glucose 211 H Calcium 7.6 L Magnesium TIBC Alkaline Phosphatase 154 H Albumin 3.4 L Arterial Blood Glucose Arterial Blood Ionized Calcium Lymph Enumerat CD4/CD8 % CD3 Cells Absolute CD3 Count % CD4 Cells Absolute CD4 Count Absolute CD8 Count Absolute CD19 Count Crossmatch 08/25/20 08/25/20 08/25/20 07:21 07:21 12:06 WBC RBC 3.13 L Hgb 8.9 L Hct 26.5 L MCH MCHC RDW 20.6 H Plt Count [place] % (Auto) Lymph # (Auto) Seg Neutrophils % Seg Neuts % (Manual) 96.0 H Lymphocytes % (Manual) 3.0 L Seg Neutrophils # Man Abs Lymphs (Manual) Lymphocytes # (Manual) 0.2 L ABG pH POC ABG pCO2 POC ABG pO2 ABG Hemoglobin ABG Oxyhemoglobin ABG Potassium ABG Chloride ABG Glucose Sodium Potassium Chloride Carbon Dioxide 31 H BUN Glucose 208 H POC Glucose 162 H Calcium 7.4 L Magnesium TIBC Alkaline Phosphatase Albumin Arterial Blood Glucose Arterial Blood Ionized Calcium Lymph Enumerat CD4/CD8 % CD3 Cells Absolute CD3 Count % CD4 Cells Absolute CD4 Count Absolute CD8 Count Absolute CD19 Count Crossmatch 08/25/20 08/25/20 08/26/20 17:01 21:52 05:09 WBC 14.9 H RBC 3.11 L Hgb 8.9 L Hct 26.7 L MCH MCHC RDW 20.6 H Plt Count [place] % (Auto) Lymph # (Auto) Seg Neutrophils % Seg Neuts % (Manual) Lymphocytes % (Manual) Seg Neutrophils # Man Abs Lymphs (Manual) Lymphocytes # (Manual) ABG pH POC ABG pCO2 POC ABG pO2 ABG Hemoglobin ABG Oxyhemoglobin ABG Potassium ABG Chloride ABG Glucose Sodium Potassium Chloride Carbon Dioxide BUN Glucose POC Glucose 158 H 175 H Calcium Magnesium TIBC Alkaline Phosphatase Albumin Arterial Blood Glucose Arterial Blood Ionized Calcium Lymph Enumerat CD4/CD8 % CD3 Cells Absolute CD3 Count % CD4 Cells Absolute CD4 Count Absolute CD8 Count Absolute CD19 Count Crossmatch 08/26/20 08/26/20 08/26/20 05:09 07:21 11:21 WBC RBC Hgb Hct MCH MCHC RDW Plt Count [place] % (Auto) Lymph # (Auto) Seg Neutrophils % Seg Neuts % (Manual) Lymphocytes % (Manual) Seg Neutrophils # Man Abs Lymphs (Manual) Lymphocytes # (Manual) ABG pH POC ABG pCO2 POC ABG pO2 ABG Hemoglobin ABG Oxyhemoglobin ABG Potassium ABG Chloride ABG Glucose Sodium Potassium Chloride Carbon Dioxide 31 H BUN 21 H Glucose 183 H POC Glucose 149 H 145 H Calcium 7.0 L Magnesium TIBC Alkaline Phosphatase Albumin Arterial Blood Glucose Arterial Blood Ionized Calcium Lymph Enumerat CD4/CD8 % CD3 Cells Absolute CD3 Count % CD4 Cells Absolute CD4 Count Absolute CD8 Count Absolute CD19 Count Crossmatch 08/26/20 08/26/20 08/27/20 16:49 21:19 04:41 WBC 11.5 H RBC 2.93 L Hgb 8.0 L Hct 25.2 L MCH 27 L MCHC RDW 21.0 H Plt Count [place] % (Auto) Lymph # (Auto) Seg Neutrophils % Seg Neuts % (Manual) Lymphocytes % (Manual) Seg Neutrophils # Man Abs Lymphs (Manual) Lymphocytes # (Manual) ABG pH POC ABG pCO2 POC ABG pO2 ABG Hemoglobin ABG Oxyhemoglobin ABG Potassium ABG Chloride ABG Glucose Sodium Potassium Chloride Carbon Dioxide BUN Glucose POC Glucose 177 H 144 H Calcium Magnesium TIBC Alkaline Phosphatase Albumin Arterial Blood Glucose Arterial Blood Ionized Calcium Lymph Enumerat CD4/CD8 % CD3 Cells Absolute CD3 Count % CD4 Cells Absolute CD4 Count Absolute CD8 Count Absolute CD19 Count Crossmatch 08/27/20 08/27/20 08/27/20 04:41 07:25 07:30 WBC RBC Hgb Hct MCH MCHC RDW Plt Count [place] % (Auto) Lymph # (Auto) Seg Neutrophils % Seg Neuts % (Manual) Lymphocytes % (Manual) Seg Neutrophils # Man Abs Lymphs (Manual) Lymphocytes # (Manual) ABG pH POC ABG pCO2 POC ABG pO2 ABG Hemoglobin ABG Oxyhemoglobin ABG Potassium ABG Chloride ABG Glucose Sodium Potassium Chloride Carbon Dioxide 35 H BUN 24 H Glucose 173 H POC Glucose 153 H 143 H Calcium 7.3 L Magnesium TIBC Alkaline Phosphatase Albumin Arterial Blood Glucose Arterial Blood Ionized Calcium Lymph Enumerat CD4/CD8 % CD3 Cells Absolute CD3 Count % CD4 Cells Absolute CD4 Count Absolute CD8 Count Absolute CD19 Count Crossmatch 08/27/20 08/27/20 08/27/20 11:27 15:49 21:17 WBC RBC Hgb Hct MCH MCHC RDW Plt Count [place] % (Auto) Lymph # (Auto) Seg Neutrophils % Seg Neuts % (Manual) Lymphocytes % (Manual) Seg Neutrophils # Man Abs Lymphs (Manual) Lymphocytes # (Manual) ABG pH POC ABG pCO2 POC ABG pO2 ABG Hemoglobin ABG Oxyhemoglobin ABG Potassium ABG Chloride ABG Glucose Sodium Potassium Chloride Carbon Dioxide BUN Glucose POC Glucose 236 H 184 H 144 H Calcium Magnesium TIBC Alkaline Phosphatase Albumin Arterial Blood Glucose Arterial Blood Ionized Calcium Lymph Enumerat CD4/CD8 % CD3 Cells Absolute CD3 Count % CD4 Cells Absolute CD4 Count Absolute CD8 Count Absolute CD19 Count Crossmatch 08/28/20 08/28/20 08/28/20 05:55 05:55 07:25 WBC RBC 2.58 L Hgb 7.6 L Hct 22.1 L MCH MCHC 35 H RDW 20.3 H Plt Count [place] % (Auto) Lymph # (Auto) Seg Neutrophils % Seg Neuts % (Manual) Lymphocytes % (Manual) Seg Neutrophils # Man Abs Lymphs (Manual) Lymphocytes # (Manual) ABG pH POC ABG pCO2 POC ABG pO2 ABG Hemoglobin ABG Oxyhemoglobin ABG Potassium ABG Chloride ABG Glucose Sodium Potassium 3.5 L Chloride Carbon Dioxide BUN 33 H Glucose 183 H POC Glucose 164 H Calcium 6.8 L Magnesium TIBC Alkaline Phosphatase Albumin Arterial Blood Glucose Arterial Blood Ionized Calcium Lymph Enumerat CD4/CD8 % CD3 Cells Absolute CD3 Count % CD4 Cells Absolute CD4 Count Absolute CD8 Count Absolute CD19 Count Crossmatch 08/28/20 08/28/20 08/28/20 11:00 12:06 15:28 WBC RBC Hgb Hct MCH MCHC RDW Plt Count [place] % (Auto) Lymph # (Auto) Seg Neutrophils % Seg Neuts % (Manual) Lymphocytes % (Manual) Seg Neutrophils # Man Abs Lymphs (Manual) Lymphocytes # (Manual) ABG pH 7.316 L POC ABG pCO2 68.0 H POC ABG pO2 75.4 L ABG Hemoglobin 8.3 L ABG Oxyhemoglobin 92.5 L ABG Potassium ABG Chloride ABG Glucose 302 H Sodium Potassium Chloride Carbon Dioxide BUN Glucose POC Glucose 233 H 146 H Calcium Magnesium TIBC Alkaline Phosphatase Albumin Arterial Blood Glucose 302 H Arterial Blood Ionized Calcium 3.8 L Lymph Enumerat CD4/CD8 % CD3 Cells Absolute CD3 Count % CD4 Cells Absolute CD4 Count Absolute CD8 Count Absolute CD19 Count Crossmatch 08/28/20 08/29/20 08/29/20 21:34 07:26 12:05 WBC RBC Hgb Hct MCH MCHC RDW Plt Count [place] % (Auto) Lymph # (Auto) Seg Neutrophils % Seg Neuts % (Manual) Lymphocytes % (Manual) Seg Neutrophils # Man Abs Lymphs (Manual) Lymphocytes # (Manual) ABG pH POC ABG pCO2 POC ABG pO2 ABG Hemoglobin ABG Oxyhemoglobin ABG Potassium ABG Chloride ABG Glucose Sodium Potassium Chloride Carbon Dioxide BUN Glucose POC Glucose 201 H 167 H 253 H Calcium Magnesium TIBC Alkaline Phosphatase Albumin Arterial Blood Glucose Arterial Blood Ionized Calcium Lymph Enumerat CD4/CD8 % CD3 Cells Absolute CD3 Count % CD4 Cells Absolute CD4 Count Absolute CD8 Count Absolute CD19 Count Crossmatch 08/29/20 08/29/20 08/30/20 16:32 21:56 07:53 WBC RBC Hgb Hct MCH MCHC RDW Plt Count [place] % (Auto) Lymph # (Auto) Seg Neutrophils % Seg Neuts % (Manual) Lymphocytes % (Manual) Seg Neutrophils # Man Abs Lymphs (Manual) Lymphocytes # (Manual) ABG pH POC ABG pCO2 POC ABG pO2 ABG Hemoglobin ABG Oxyhemoglobin ABG Potassium ABG Chloride ABG Glucose Sodium Potassium Chloride Carbon Dioxide BUN Glucose POC Glucose 128 H 220 H 286 H Calcium Magnesium TIBC Alkaline Phosphatase Albumin Arterial Blood Glucose Arterial Blood Ionized Calcium Lymph Enumerat CD4/CD8 % CD3 Cells Absolute CD3 Count % CD4 Cells Absolute CD4 Count Absolute CD8 Count Absolute CD19 Count Crossmatch 08/30/20 08/30/20 08/30/20 11:29 17:32 22:03 WBC RBC Hgb Hct MCH MCHC RDW Plt Count [place] % (Auto) Lymph # (Auto) Seg Neutrophils % Seg Neuts % (Manual) Lymphocytes % (Manual) Seg Neutrophils # Man Abs Lymphs (Manual) Lymphocytes # (Manual) ABG pH POC ABG pCO2 POC ABG pO2 ABG Hemoglobin ABG Oxyhemoglobin ABG Potassium ABG Chloride ABG Glucose Sodium Potassium Chloride Carbon Dioxide BUN Glucose POC Glucose 299 H 260 H 196 H Calcium Magnesium TIBC Alkaline Phosphatase Albumin Arterial Blood Glucose Arterial Blood Ionized Calcium Lymph Enumerat CD4/CD8 % CD3 Cells Absolute CD3 Count % CD4 Cells Absolute CD4 Count Absolute CD8 Count Absolute CD19 Count Crossmatch 08/31/20 08/31/20 08/31/20 07:41 11:26 16:19 WBC RBC Hgb Hct MCH MCHC RDW Plt Count [place] % (Auto) Lymph # (Auto) Seg Neutrophils % Seg Neuts % (Manual) Lymphocytes % (Manual) Seg Neutrophils # Man Abs Lymphs (Manual) Lymphocytes # (Manual) ABG pH POC ABG pCO2 POC ABG pO2 ABG Hemoglobin ABG Oxyhemoglobin ABG Potassium ABG Chloride ABG Glucose Sodium Potassium Chloride Carbon Dioxide BUN Glucose POC Glucose 166 H 269 H 265 H Calcium Magnesium TIBC Alkaline Phosphatase Albumin Arterial Blood Glucose Arterial Blood Ionized Calcium Lymph Enumerat CD4/CD8 % CD3 Cells Absolute CD3 Count % CD4 Cells Absolute CD4 Count Absolute CD8 Count Absolute CD19 Count Crossmatch 08/31/20 09/01/20 09/01/20 20:44 07:40 11:39 WBC RBC Hgb Hct MCH MCHC RDW Plt Count [place] % (Auto) Lymph # (Auto) Seg Neutrophils % Seg Neuts % (Manual) Lymphocytes % (Manual) Seg Neutrophils # Man Abs Lymphs (Manual) Lymphocytes # (Manual) ABG pH POC ABG pCO2 POC ABG pO2 ABG Hemoglobin ABG Oxyhemoglobin ABG Potassium ABG Chloride ABG Glucose Sodium Potassium Chloride Carbon Dioxide BUN Glucose POC Glucose 243 H 272 H 320 H Calcium Magnesium TIBC Alkaline Phosphatase Albumin Arterial Blood Glucose Arterial Blood Ionized Calcium Lymph Enumerat CD4/CD8 % CD3 Cells Absolute CD3 Count % CD4 Cells Absolute CD4 Count Absolute CD8 Count Absolute CD19 Count Crossmatch 09/01/20 09/01/20 09/02/20 16:16 21:59 08:32 WBC RBC Hgb Hct MCH MCHC RDW Plt Count [place] % (Auto) Lymph # (Auto) Seg Neutrophils % Seg Neuts % (Manual) Lymphocytes % (Manual) Seg Neutrophils # Man Abs Lymphs (Manual) Lymphocytes # (Manual) ABG pH POC ABG pCO2 POC ABG pO2 ABG Hemoglobin ABG Oxyhemoglobin ABG Potassium ABG Chloride ABG Glucose Sodium Potassium Chloride Carbon Dioxide BUN Glucose POC Glucose 319 H 157 H 195 H Calcium Magnesium TIBC Alkaline Phosphatase Albumin Arterial Blood Glucose Arterial Blood Ionized Calcium Lymph Enumerat CD4/CD8 % CD3 Cells Absolute CD3 Count % CD4 Cells Absolute CD4 Count Absolute CD8 Count Absolute CD19 Count Crossmatch 09/02/20 09/02/20 09/03/20 11:44 20:09 05:02 WBC RBC 2.25 L Hgb 6.5 L Hct 19.7 L* MCH MCHC RDW 21.3 H Plt Count [place] % (Auto) Lymph # (Auto) Seg Neutrophils % Seg Neuts % (Manual) Lymphocytes % (Manual) Seg Neutrophils # Man Abs Lymphs (Manual) Lymphocytes # (Manual) ABG pH POC ABG pCO2 POC ABG pO2 ABG Hemoglobin ABG Oxyhemoglobin ABG Potassium ABG Chloride ABG Glucose Sodium Potassium Chloride Carbon Dioxide BUN Glucose POC Glucose 167 H 214 H Calcium Magnesium TIBC Alkaline Phosphatase Albumin Arterial Blood Glucose Arterial Blood Ionized Calcium Lymph Enumerat CD4/CD8 % CD3 Cells Absolute CD3 Count % CD4 Cells Absolute CD4 Count Absolute CD8 Count Absolute CD19 Count Crossmatch 09/03/20 09/03/20 09/03/20 05:02 07:35 09:56 WBC RBC Hgb Hct MCH MCHC RDW Plt Count [place] % (Auto) Lymph # (Auto) Seg Neutrophils % Seg Neuts % (Manual) Lymphocytes % (Manual) Seg Neutrophils # Man Abs Lymphs (Manual) Lymphocytes # (Manual) ABG pH POC ABG pCO2 POC ABG pO2 ABG Hemoglobin ABG Oxyhemoglobin ABG Potassium ABG Chloride ABG Glucose Sodium 149 H Potassium 3.3 L Chloride Carbon Dioxide 38 H BUN 30 H Glucose 212 H POC Glucose 207 H Calcium 6.7 L Magnesium TIBC Alkaline Phosphatase Albumin Arterial Blood Glucose Arterial Blood Ionized Calcium Lymph Enumerat CD4/CD8 % CD3 Cells Absolute CD3 Count % CD4 Cells Absolute CD4 Count Absolute CD8 Count Absolute CD19 Count Crossmatch See Detail 09/03/20 09/03/20 09/04/20 12:05 16:04 05:53 WBC 14.8 H RBC 2.99 L Hgb 8.6 L Hct 26.4 L D MCH MCHC RDW 19.0 H Plt Count [place] % (Auto) Lymph # (Auto) Seg Neutrophils % Seg Neuts % (Manual) Lymphocytes % (Manual) Seg Neutrophils # Man Abs Lymphs (Manual) Lymphocytes # (Manual) ABG pH POC ABG pCO2 POC ABG pO2 ABG Hemoglobin ABG Oxyhemoglobin ABG Potassium ABG Chloride ABG Glucose Sodium Potassium Chloride Carbon Dioxide BUN Glucose POC Glucose 193 H 174 H Calcium Magnesium TIBC Alkaline Phosphatase Albumin Arterial Blood Glucose Arterial Blood Ionized Calcium Lymph Enumerat CD4/CD8 % CD3 Cells Absolute CD3 Count % CD4 Cells Absolute CD4 Count Absolute CD8 Count Absolute CD19 Count Crossmatch 09/04/20 09/04/20 09/04/20 05:53 05:53 08:33 WBC RBC Hgb Hct MCH MCHC RDW Plt Count [place] % (Auto) Lymph # (Auto) Seg Neutrophils % Seg Neuts % (Manual) Lymphocytes % (Manual) Seg Neutrophils # Man Abs Lymphs (Manual) 98 L Lymphocytes # (Manual) ABG pH POC ABG pCO2 POC ABG pO2 ABG Hemoglobin ABG Oxyhemoglobin ABG Potassium ABG Chloride ABG Glucose Sodium 149 H Potassium Chloride Carbon Dioxide 39 H BUN 28 H Glucose 175 H POC Glucose 222 H Calcium 6.9 L Magnesium TIBC 214 L Alkaline Phosphatase Albumin Arterial Blood Glucose Arterial Blood Ionized Calcium Lymph Enumerat CD4/CD8 0.68 L % CD3 Cells 51 L Absolute CD3 Count 50 L % CD4 Cells 20 L Absolute CD4 Count 20 L Absolute CD8 Count 29 L Absolute CD19 Count 17 L Crossmatch 09/04/20 09/04/20 09/05/20 11:21 15:42 04:56 WBC RBC 2.88 L Hgb 8.6 L Hct 25.3 L MCH MCHC RDW 19.6 H Plt Count [place] % (Auto) Lymph # (Auto) Seg Neutrophils % Seg Neuts % (Manual) Lymphocytes % (Manual) Seg Neutrophils # Man Abs Lymphs (Manual) Lymphocytes # (Manual) ABG pH POC ABG pCO2 POC ABG pO2 ABG Hemoglobin ABG Oxyhemoglobin ABG Potassium ABG Chloride ABG Glucose Sodium Potassium Chloride Carbon Dioxide BUN Glucose POC Glucose 253 H 240 H Calcium Magnesium TIBC Alkaline Phosphatase Albumin Arterial Blood Glucose Arterial Blood Ionized Calcium Lymph Enumerat CD4/CD8 % CD3 Cells Absolute CD3 Count % CD4 Cells Absolute CD4 Count Absolute CD8 Count Absolute CD19 Count Crossmatch 09/05/20 09/05/20 09/05/20 04:56 07:31 12:01 WBC RBC Hgb Hct MCH MCHC RDW Plt Count [place] % (Auto) Lymph # (Auto) Seg Neutrophils % Seg Neuts % (Manual) Lymphocytes % (Manual) Seg Neutrophils # Man Abs Lymphs (Manual) Lymphocytes # (Manual) ABG pH POC ABG pCO2 POC ABG pO2 ABG Hemoglobin ABG Oxyhemoglobin ABG Potassium ABG Chloride ABG Glucose Sodium 149 H Potassium 3.1 L Chloride Carbon Dioxide 48 H* D BUN 24 H Glucose 142 H POC Glucose 131 H 124 H Calcium 6.5 L Magnesium TIBC Alkaline Phosphatase Albumin Arterial Blood Glucose Arterial Blood Ionized Calcium Lymph Enumerat CD4/CD8 % CD3 Cells Absolute CD3 Count % CD4 Cells Absolute CD4 Count Absolute CD8 Count Absolute CD19 Count Crossmatch 09/05/20 09/05/20 09/06/20 16:52 20:19 04:26 WBC RBC Hgb Hct MCH MCHC RDW Plt Count [place] % (Auto) Lymph # (Auto) Seg Neutrophils % Seg Neuts % (Manual) Lymphocytes % (Manual) Seg Neutrophils # Man Abs Lymphs (Manual) Lymphocytes # (Manual) ABG pH POC ABG pCO2 POC ABG pO2 ABG Hemoglobin ABG Oxyhemoglobin ABG Potassium ABG Chloride ABG Glucose Sodium 151 H Potassium 3.3 L Chloride Carbon Dioxide 44 H* BUN 24 H Glucose POC Glucose 168 H 130 H Calcium 5.8 L* Magnesium TIBC Alkaline Phosphatase Albumin Arterial Blood Glucose Arterial Blood Ionized Calcium Lymph Enumerat CD4/CD8 % CD3 Cells Absolute CD3 Count % CD4 Cells Absolute CD4 Count Absolute CD8 Count Absolute CD19 Count Crossmatch 09/06/20 09/06/20 09/06/20 11:51 15:19 20:20 WBC RBC Hgb Hct MCH MCHC RDW Plt Count [place] % (Auto) Lymph # (Auto) Seg Neutrophils % Seg Neuts % (Manual) Lymphocytes % (Manual) Seg Neutrophils # Man Abs Lymphs (Manual) Lymphocytes # (Manual) ABG pH POC ABG pCO2 POC ABG pO2 ABG Hemoglobin ABG Oxyhemoglobin ABG Potassium ABG Chloride ABG Glucose Sodium Potassium Chloride Carbon Dioxide BUN Glucose POC Glucose 150 H 113 H 138 H Calcium Magnesium TIBC Alkaline Phosphatase Albumin Arterial Blood Glucose Arterial Blood Ionized Calcium Lymph Enumerat CD4/CD8 % CD3 Cells Absolute CD3 Count % CD4 Cells Absolute CD4 Count Absolute CD8 Count Absolute CD19 Count Crossmatch 09/07/20 09/07/20 09/07/20 07:41 09:41 11:47 WBC RBC Hgb Hct MCH MCHC RDW Plt Count [place] % (Auto) Lymph # (Auto) Seg Neutrophils % Seg Neuts % (Manual) Lymphocytes % (Manual) Seg Neutrophils # Man Abs Lymphs (Manual) Lymphocytes # (Manual) ABG pH POC ABG pCO2 POC ABG pO2 ABG Hemoglobin ABG Oxyhemoglobin ABG Potassium ABG Chloride ABG Glucose Sodium 146 H Potassium Chloride Carbon Dioxide 43 H* BUN 24 H Glucose 186 H POC Glucose 118 H 198 H Calcium 6.1 L Magnesium TIBC Alkaline Phosphatase Albumin Arterial Blood Glucose Arterial Blood Ionized Calcium Lymph Enumerat CD4/CD8 % CD3 Cells Absolute CD3 Count % CD4 Cells Absolute CD4 Count Absolute CD8 Count Absolute CD19 Count Crossmatch 09/07/20 09/08/20 09/08/20 21:58 05:09 07:55 WBC RBC Hgb Hct MCH MCHC RDW Plt Count [place] % (Auto) Lymph # (Auto) Seg Neutrophils % Seg Neuts % (Manual) Lymphocytes % (Manual) Seg Neutrophils # Man Abs Lymphs (Manual) Lymphocytes # (Manual) ABG pH POC ABG pCO2 POC ABG pO2 ABG Hemoglobin ABG Oxyhemoglobin ABG Potassium ABG Chloride ABG Glucose Sodium 146 H Potassium Chloride Carbon Dioxide 47 H* BUN Glucose 120 H POC Glucose 215 H 110 H Calcium 6.1 L Magnesium TIBC Alkaline Phosphatase Albumin Arterial Blood Glucose Arterial Blood Ionized Calcium Lymph Enumerat CD4/CD8 % CD3 Cells Absolute CD3 Count % CD4 Cells Absolute CD4 Count Absolute CD8 Count Absolute CD19 Count Crossmatch 09/08/20 09/08/20 09/08/20 11:27 16:46 20:17 WBC RBC Hgb Hct MCH MCHC RDW Plt Count [place] % (Auto) Lymph # (Auto) Seg Neutrophils % Seg Neuts % (Manual) Lymphocytes % (Manual) Seg Neutrophils # Man Abs Lymphs (Manual) Lymphocytes # (Manual) ABG pH POC ABG pCO2 POC ABG pO2 ABG Hemoglobin ABG Oxyhemoglobin ABG Potassium ABG Chloride ABG Glucose Sodium Potassium Chloride Carbon Dioxide BUN Glucose POC Glucose 113 H 139 H 122 H Calcium Magnesium TIBC Alkaline Phosphatase Albumin Arterial Blood Glucose Arterial Blood Ionized Calcium Lymph Enumerat CD4/CD8 % CD3 Cells Absolute CD3 Count % CD4 Cells Absolute CD4 Count Absolute CD8 Count Absolute CD19 Count Crossmatch 09/09/20 09/09/20 09/09/20 08:08 11:28 16:22 WBC RBC Hgb Hct MCH MCHC RDW Plt Count [place] % (Auto) Lymph # (Auto) Seg Neutrophils % Seg Neuts % (Manual) Lymphocytes % (Manual) Seg Neutrophils # Man Abs Lymphs (Manual) Lymphocytes # (Manual) ABG pH POC ABG pCO2 POC ABG pO2 ABG Hemoglobin ABG Oxyhemoglobin ABG Potassium ABG Chloride ABG Glucose Sodium Potassium Chloride Carbon Dioxide BUN Glucose POC Glucose 107 H 113 H 108 H Calcium Magnesium TIBC Alkaline Phosphatase Albumin Arterial Blood Glucose Arterial Blood Ionized Calcium Lymph Enumerat CD4/CD8 % CD3 Cells Absolute CD3 Count % CD4 Cells Absolute CD4 Count Absolute CD8 Count Absolute CD19 Count Crossmatch 09/10/20 09/10/20 09/10/20 11:55 16:10 20:56 WBC RBC Hgb Hct MCH MCHC RDW Plt Count [place] % (Auto) Lymph # (Auto) Seg Neutrophils % Seg Neuts % (Manual) Lymphocytes % (Manual) Seg Neutrophils # Man Abs Lymphs (Manual) Lymphocytes # (Manual) ABG pH POC ABG pCO2 POC ABG pO2 ABG Hemoglobin ABG Oxyhemoglobin ABG Potassium ABG Chloride ABG Glucose Sodium Potassium Chloride Carbon Dioxide BUN Glucose POC Glucose 156 H 127 H 311 H Calcium Magnesium TIBC Alkaline Phosphatase Albumin Arterial Blood Glucose Arterial Blood Ionized Calcium Lymph Enumerat CD4/CD8 % CD3 Cells Absolute CD3 Count % CD4 Cells Absolute CD4 Count Absolute CD8 Count Absolute CD19 Count Crossmatch 09/11/20 09/11/20 09/11/20 04:07 07:41 11:19 WBC RBC Hgb Hct MCH MCHC RDW Plt Count [place] % (Auto) Lymph # (Auto) Seg Neutrophils % Seg Neuts % (Manual) Lymphocytes % (Manual) Seg Neutrophils # Man Abs Lymphs (Manual) Lymphocytes # (Manual) ABG pH POC ABG pCO2 POC ABG pO2 ABG Hemoglobin ABG Oxyhemoglobin ABG Potassium ABG Chloride ABG Glucose Sodium Potassium Chloride 95.1 L Carbon Dioxide 48 H* BUN Glucose 135 H POC Glucose 151 H 152 H Calcium 6.1 L Magnesium TIBC Alkaline Phosphatase Albumin Arterial Blood Glucose Arterial Blood Ionized Calcium Lymph Enumerat CD4/CD8 % CD3 Cells Absolute CD3 Count % CD4 Cells Absolute CD4 Count Absolute CD8 Count Absolute CD19 Count Crossmatch 09/11/20 09/11/20 09/12/20 16:45 20:22 08:12 WBC RBC Hgb Hct MCH MCHC RDW Plt Count [place] % (Auto) Lymph # (Auto) Seg Neutrophils % Seg Neuts % (Manual) Lymphocytes % (Manual) Seg Neutrophils # Man Abs Lymphs (Manual) Lymphocytes # (Manual) ABG pH POC ABG pCO2 POC ABG pO2 ABG Hemoglobin ABG Oxyhemoglobin ABG Potassium ABG Chloride ABG Glucose Sodium Potassium Chloride Carbon Dioxide BUN Glucose POC Glucose 156 H 220 H 202 H Calcium Magnesium TIBC Alkaline Phosphatase Albumin Arterial Blood Glucose Arterial Blood Ionized Calcium Lymph Enumerat CD4/CD8 % CD3 Cells Absolute CD3 Count % CD4 Cells Absolute CD4 Count Absolute CD8 Count Absolute CD19 Count Crossmatch 09/12/20 09/12/20 09/12/20 10:52 12:37 16:47 WBC RBC Hgb Hct MCH MCHC RDW Plt Count [place] % (Auto) Lymph # (Auto) Seg Neutrophils % Seg Neuts % (Manual) Lymphocytes % (Manual) Seg Neutrophils # Man Abs Lymphs (Manual) Lymphocytes # (Manual) ABG pH POC ABG pCO2 POC ABG pO2 ABG Hemoglobin ABG Oxyhemoglobin ABG Potassium ABG Chloride ABG Glucose Sodium Potassium Chloride Carbon Dioxide BUN Glucose POC Glucose 62 L 170 H 261 H Calcium Magnesium TIBC Alkaline Phosphatase Albumin Arterial Blood Glucose Arterial Blood Ionized Calcium Lymph Enumerat CD4/CD8 % CD3 Cells Absolute CD3 Count % CD4 Cells Absolute CD4 Count Absolute CD8 Count Absolute CD19 Count Crossmatch 09/13/20 09/13/20 09/13/20 00:40 07:25 11:15 WBC RBC Hgb Hct MCH MCHC RDW Plt Count [place] % (Auto) Lymph # (Auto) Seg Neutrophils % Seg Neuts % (Manual) Lymphocytes % (Manual) Seg Neutrophils # Man Abs Lymphs (Manual) Lymphocytes # (Manual) ABG pH POC ABG pCO2 POC ABG pO2 ABG Hemoglobin ABG Oxyhemoglobin ABG Potassium ABG Chloride ABG Glucose Sodium Potassium Chloride Carbon Dioxide BUN Glucose POC Glucose 134 H 158 H 130 H Calcium Magnesium TIBC Alkaline Phosphatase Albumin Arterial Blood Glucose Arterial Blood Ionized Calcium Lymph Enumerat CD4/CD8 % CD3 Cells Absolute CD3 Count % CD4 Cells Absolute CD4 Count Absolute CD8 Count Absolute CD19 Count Crossmatch 09/13/20 09/13/20 09/14/20 15:30 20:37 10:27 WBC RBC Hgb Hct MCH MCHC RDW Plt Count [place] % (Auto) Lymph # (Auto) Seg Neutrophils % Seg Neuts % (Manual) Lymphocytes % (Manual) Seg Neutrophils # Man Abs Lymphs (Manual) Lymphocytes # (Manual) ABG pH 7.471 H POC ABG pCO2 62.3 H POC ABG pO2 ABG Hemoglobin 8.2 L ABG Oxyhemoglobin ABG Potassium 3.1 L ABG Chloride 94.0 L ABG Glucose 189 H Sodium Potassium Chloride Carbon Dioxide BUN Glucose POC Glucose 147 H 159 H Calcium Magnesium TIBC Alkaline Phosphatase Albumin Arterial Blood Glucose 189 H Arterial Blood Ionized Calcium 3.0 L Lymph Enumerat CD4/CD8 % CD3 Cells Absolute CD3 Count % CD4 Cells Absolute CD4 Count Absolute CD8 Count Absolute CD19 Count Crossmatch 09/14/20 09/14/20 09/14/20 11:48 17:11 21:56 WBC RBC Hgb Hct MCH MCHC RDW Plt Count [place] % (Auto) Lymph # (Auto) Seg Neutrophils % Seg Neuts % (Manual) Lymphocytes % (Manual) Seg Neutrophils # Man Abs Lymphs (Manual) Lymphocytes # (Manual) ABG pH POC ABG pCO2 POC ABG pO2 ABG Hemoglobin ABG Oxyhemoglobin ABG Potassium ABG Chloride ABG Glucose Sodium Potassium Chloride Carbon Dioxide BUN Glucose POC Glucose 187 H 145 H 221 H Calcium Magnesium TIBC Alkaline Phosphatase Albumin Arterial Blood Glucose Arterial Blood Ionized Calcium Lymph Enumerat CD4/CD8 % CD3 Cells Absolute CD3 Count % CD4 Cells Absolute CD4 Count Absolute CD8 Count Absolute CD19 Count Crossmatch 09/15/20 09/15/20 09/15/20 04:18 04:18 10:43 WBC RBC 1.73 L Hgb 5.3 L* Hct 16.1 L* MCH MCHC RDW 21.7 H Plt Count 136 L [place] % (Auto) Lymph # (Auto) 0.8 L Seg Neutrophils % 81.3 H Seg Neuts % (Manual) Lymphocytes % (Manual) Seg Neutrophils # Man Abs Lymphs (Manual) Lymphocytes # (Manual) ABG pH POC ABG pCO2 POC ABG pO2 ABG Hemoglobin ABG Oxyhemoglobin ABG Potassium ABG Chloride ABG Glucose Sodium 146 H Potassium 3.5 L Chloride 97.7 L Carbon Dioxide 42 H* BUN Glucose 102 H POC Glucose Calcium 5.5 L* Magnesium 1.60 L TIBC Alkaline Phosphatase Albumin Arterial Blood Glucose Arterial Blood Ionized Calcium Lymph Enumerat CD4/CD8 % CD3 Cells Absolute CD3 Count % CD4 Cells Absolute CD4 Count Absolute CD8 Count Absolute CD19 Count Crossmatch See Detail 09/15/20 09/15/20 09/15/20 10:43 12:41 23:48 WBC RBC Hgb 5.9 L* Hct 18.5 L* MCH MCHC RDW Plt Count [place] % (Auto) Lymph # (Auto) Seg Neutrophils % Seg Neuts % (Manual) Lymphocytes % (Manual) Seg Neutrophils # Man Abs Lymphs (Manual) Lymphocytes # (Manual) ABG pH POC ABG pCO2 POC ABG pO2 ABG Hemoglobin ABG Oxyhemoglobin ABG Potassium ABG Chloride ABG Glucose Sodium Potassium Chloride Carbon Dioxide BUN Glucose POC Glucose 119 H 187 H Calcium Magnesium TIBC Alkaline Phosphatase Albumin Arterial Blood Glucose Arterial Blood Ionized Calcium Lymph Enumerat CD4/CD8 % CD3 Cells Absolute CD3 Count % CD4 Cells Absolute CD4 Count Absolute CD8 Count Absolute CD19 Count Crossmatch 09/16/20 09/16/20 09/16/20 04:36 10:53 15:53 WBC RBC 2.79 L Hgb 8.8 L Hct 26.0 L D MCH MCHC RDW 17.0 H Plt Count [place] % (Auto) 8.9 H Lymph # (Auto) 0.8 L Seg Neutrophils % 73.5 H Seg Neuts % (Manual) Lymphocytes % (Manual) Seg Neutrophils # Man Abs Lymphs (Manual) Lymphocytes # (Manual) ABG pH POC ABG pCO2 POC ABG pO2 ABG Hemoglobin ABG Oxyhemoglobin ABG Potassium ABG Chloride ABG Glucose Sodium Potassium Chloride Carbon Dioxide BUN Glucose POC Glucose 122 H 196 H Calcium Magnesium TIBC Alkaline Phosphatase Albumin Arterial Blood Glucose Arterial Blood Ionized Calcium Lymph Enumerat CD4/CD8 % CD3 Cells Absolute CD3 Count % CD4 Cells Absolute CD4 Count Absolute CD8 Count Absolute CD19 Count Crossmatch 09/16/20 21:13 WBC RBC Hgb Hct MCH MCHC RDW Plt Count [place] % (Auto) Lymph # (Auto) Seg Neutrophils % Seg Neuts % (Manual) Lymphocytes % (Manual) Seg Neutrophils # Man Abs Lymphs (Manual) Lymphocytes # (Manual) ABG pH POC ABG pCO2 POC ABG pO2 ABG Hemoglobin ABG Oxyhemoglobin ABG Potassium ABG Chloride ABG Glucose Sodium Potassium Chloride Carbon Dioxide BUN Glucose POC Glucose 152 H Calcium Magnesium TIBC Alkaline Phosphatase Albumin Arterial Blood Glucose Arterial Blood Ionized Calcium Lymph Enumerat CD4/CD8 % CD3 Cells Absolute CD3 Count % CD4 Cells Absolute CD4 Count Absolute CD8 Count Absolute CD19 Count Crossmatch Allied health notes reviewed: nursing
--- NOTE | 2020-09-17 16:59 | Gastroenterology Progress Note ---
Assessment and Plan GI: h/o pud now anemia, heme + stool - h/h stable after transfusion - PPI qd - diet as tolerated - no plans to scope at this time - will follow - ok to dc from GI standpoint - will sign off, call if needed Subjective Date of service: 09/17/20 Principal diagnosis: Ac hypoxemic resp failure; AE-COPD; ANGELIC; HIV +ve; HTN; Cocaine Use Interval history: - tolerating po, no GI complaints Objective - Constitutional Vitals: Temp Pulse Resp BP Pulse Ox 97.9 F 96 H 18 140/86 98 09/17/20 12:24 09/17/20 12:24 09/17/20 12:24 09/17/20 12:24 09/17/20 12:24 General appearance: no acute distress - EENT Eyes: PERRL - Respiratory Respiratory: bilateral: CTA - Cardiovascular Rhythm: regular Heart Sounds: Present: S1 & S2 - Gastrointestinal General gastrointestinal: Present: soft, non-tender, non-distended - Labs CBC & Chem 7: 09/16/20 04:36 09/15/20 04:18 Labs: Laboratory Results - last 24 hr 09/16/20 09/17/20 09/17/20 21:13 07:26 11:51 POC Glucose 152 H 83 78 09/17/20 16:49 POC Glucose 200 H
[2020-09-17] MEDS: MIRTAZAPINE 15 MG TAB PO SCH (21:13)
[2020-09-17] MEDS: MONTELUKAST 10 MG TAB PO SCH (21:13)
[2020-09-17] MEDS: oxyCODONE /ACETAMINOPHEN 5-325MG TAB PO PRN (21:13)
[2020-09-17] MEDS: INSULIN LISPRO 100 UNIT/ML SUB-Q SCH (22:01)
[2020-09-18] MEDS: HEPARIN 5,000 UNIT/1 ML VIAL SUB-Q SCH ×3 (05:00→21:57)
[2020-09-18] MEDS: IPRATROPIUM 0.02% NEBU 2.5 ML IH SCH ×4 (07:36→15:54)
[2020-09-18] MEDS: LEVALBUTEROL 0.63 MG/3 ML NEBU IH SCH ×4 (07:36→15:54)
[2020-09-18] MEDS: ARFORMOTEROL 15 MCG/2 ML NEBU IH SCH ×2 (07:37→20:04)
[2020-09-18] MEDS: BUDESONIDE 0.5 MG/2 ML NEBU IH SCH ×2 (07:37→20:04)
[2020-09-18] MEDS: ASPIRIN EC 81 MG TAB PO SCH (10:22)
[2020-09-18] MEDS: CALCIUM CARBONATE 500 MG TAB CHEW PO SCH ×3 (10:22→21:58)
[2020-09-18] MEDS: PANTOPRAZOLE 40 MG TAB PO SCH (10:22)
[2020-09-18] MEDS: INSULIN NPH/REGULAR 70/30 INJ SUB-Q SCH ×2 (10:22→18:04)
[2020-09-18] MEDS: MULTIVITAMINS ,THERAPEUTIC TAB PO SCH (10:22)
[2020-09-18] MEDS: predniSONE 10 MG TAB PO SCH (10:22)
[2020-09-18] MEDS: carvediloL 6.25 MG TAB PO SCH ×2 (10:22→21:58)
[2020-09-18] MEDS: POLYETHYLENE GLYCOL 3350 17 GM POWDER PO SCH ×2 (10:22→10:28)
[2020-09-18] MEDS: FE FUMARATE/FA/MV, MIN COMB#15 CAP (HEMOCYTE PLUS) PO SCH (10:22)
[2020-09-18] MEDS: oxyCODONE /ACETAMINOPHEN 5-325MG TAB PO PRN ×2 (10:23→21:58)
--- NOTE | 2020-09-18 14:49 | Progress Note ---
Assessment and Plan 64-year-old male with past medical history of COPD, hypertension, Diabetes,asthma PE was brought to the emergency room because of shortness of breath since this morning. Patient had an IV started by EMS and was given IV mag, Solu-Medrol and an albuterol treatment. EMS states that the patient states his symptoms are worsening. Patient states 5 breathing treatment just prior to arrival and did not work. Shortness of breath better with rest and worse with exertion. Patient states he has a long history of COPD and asthma. Patient states he had multiple visits to the ER for this. Patient denies chest pain. Patient denies fever and chills. Patient complains of dry cough Patient has history of smoking 1 pack x 40 years. Says stopped smoking 2 months ago. History of using Cocaine. Denies alcohol abuse. Says worked in [employer] field before he disabled. Patient and has two children.No Known drug allergies Patient awake and on 2 litres O2. O2 saturation recorded is 98%. patient not using his O2 all the time. Counseled to use O2 all the time. Patient breathing better. Patient afebrile and has no leukocytosis. Chest xray done 08/24/20 reported There is hyperinflation the lungs. No focal infiltrate is seen. Rusty cified granulomata are noted in the upper lung zones bilaterally. No pneumothorax. Chest xray 09/14/20 reported Opacity within the left lower lung which is concerning for infectious process in the appropriate clinical setting Patient is on Brovanna/Budesonide aerosol treatments, S/C Heparin and Protonix, and prednisone. - Patient Problems (1) Acute respiratory failure with hypoxia Current Visit: No Status: Acute Plan to address problem: O2 2 litres via nasal canula. Brovanna/Budesonide aerosol treatments. Albuterol/atrovent aerosol treatments as needed. S/C Heparin. Protonix, and prednisone. (2) COPD exacerbation Current Visit: No Status: Acute Plan to address problem: O2 2 litres via nasal canula. Brovanna/Budesonide aerosol treatments. Albuterol/atrovent aerosol treatments as needed. S/C Heparine. Protonix, and prednisone. PFTs as out patient. (3) ANGELIC (acute kidney injury) Current Visit: No Status: Acute Plan to address problem: Management as per nephrology. (4) GERD (gastroesophageal reflux disease) Current Visit: No Status: Acute Plan to address problem: Patient is on Protonix. (5) HIV (human immunodeficiency virus infection) Current Visit: No Status: Acute Qualifiers: Plan to address problem: Management as per infectious disease consultants. (6) Hypertension Current Visit: No Status: Acute Plan to address problem: Management as per primary care. (7) Cocaine use Current Visit: No Status: Chronic Plan to address problem: Counseled do not use any illegal drugs. (8) Tobacco use Current Visit: No Status: Chronic Plan to address problem: Counseled continue stop smoking. Subjective Date of service: 09/18/20 Principal diagnosis: Ac hypoxemic resp failure; AE-COPD; ANGELIC; HIV +ve; HTN; Cocaine Use Interval history: 64-year-old male with past medical history of COPD, hypertension, D iabetes,asthma PE was brought to the emergency room because of shortness of breath since this morning. Patient had an IV started by EMS and was given IV mag, Solu-Medrol and an albuterol treatment. EMS states that the patient states his symptoms are worsening. Patient states 5 breathing treatment just prior to arrival and did not work. Shortness of breath better with rest and worse with exertion. Patient states he has a long history of COPD and asthma. Patient states he had multiple visits to the ER for this. Patient denies chest pain. Patient denies fever and chills. Patient complains of dry cough Patient has history of smoking 1 pack x 40 years. Says stopped smoking 2 months ago. History of using Cocaine. Denies alcohol abuse. 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 Patient and has two children.No Known drug allergies Patient awake and on 2 litres O2. O2 saturation recorded is 98%. patient not using his O2 all the time. Counseled to use O2 all the time. Patient breathing better. Patient afebrile and has no leukocytosis. Chest xray done 08/24/20 repo rted There is hyperinflation the lungs. No focal infiltrate is seen. Calcified granulomata are noted in the upper lung zones bilaterally. No pneumothorax. Chest xray 09/14/20 reported Opacity within the left lower lung which is concerning for infectious process in the appropriate clinical setting Patient is on Brovanna/Budesonide aerosol treatments, S/C Heparin and Protonix, and prednisone. Objective Vital Signs - 12hr 09/18/20 09/18/20 09/18/20 04:18 07:37 10:00 Temperature 98.2 F 98.8 F Pulse Rate 84 68 Pulse Rate [ 84 Bilateral] Respiratory 20 20 Rate Respiratory 20 Rate [Bilateral ] Blood Pressure 112/76 149/93 O2 Sat by Pulse 98 99 96 Oximetry 09/18/20 11:19 Temperature 98.4 F Pulse Rate 82 Pulse Rate [ Bilateral] Respiratory 20 Rate Respiratory Rate [Bilateral ] Blood Pressure 138/89 O2 Sat by Pulse 99 Oximetry Constitutional: no acute distress, alert, other (mildly increased work of breathing at rest) Eyes: non-icteric ENT: oropharynx moist Neck: supple, no JVD Effort: mildly labored Ascultation: Bilateral: diminished breath sounds, wheezes (faint; end expiratory), rhonchi, other (Prolonged expiratory phase.) Percussion: Bilateral: not dull Cardiovascular: regular rate and rhythm Gastrointestinal: normoactive bowel sounds, soft, non-tender, non-distended Integumentary: normal Extremities: no cyanosis, no edema, pulses normal, no ischemia or petechiae Neurologic: normal mental status, non-focal exam, pupils equal and round, motor strength normal and Psychiatric: mood appropriate, affect normal CBC and BMP: 09/16/20 04:36 09/15/20 04:18 ABG, PT/INR, D-dimer: ABG ABG pH 7.471 (7.320-7.450) H 09/14/20 10:27 POC ABG pCO2 62.3 mmHg (32.0-48.0) H 09/14/20 10:27 POC ABG pO2 96.7 mmHg (83-108) 09/14/20 10:27 POC ABG HCO3 44.4 09/14/20 10:27 ABG O2 Saturation 97.3 (0-100) 09/14/20 10:27 Abnormal lab findings: Abnormal Labs 08/24/20 08/24/20 08/25/20 19:29 19:29 07:00 WBC RBC 3.36 L Hgb 9.7 L Hct 28.5 L MCH MCHC RDW 20.6 H Plt Count [place] % (Auto) Lymph # (Auto) Seg Neutrophils % Seg Neuts % (Manual) 97.0 H Lymphocytes % (Manual) 1.0 L Seg Neutrophils # Man 10.2 H Abs Lymphs (Manual) Lymphocytes # (Manual) 0.1 L ABG pH POC ABG pCO2 POC ABG pO2 ABG Hemoglobin ABG Oxyhemoglobin ABG Potassium ABG Chloride ABG Glucose Sodium Potassium 3.3 L Chloride Carbon Dioxide BUN Glucose 121 H POC Glucose 211 H Calcium 7.6 L Magnesium TIBC Alkaline Phosphatase 154 H Albumin 3.4 L Arterial Blood Glucose Arterial Blood Ionized Calcium Lymph Enumerat CD4/CD8 % CD3 Cells Absolute CD3 Count % CD4 Cells Absolute CD4 Count Absolute CD8 Count Absolute CD19 Count Crossmatch 08/25/20 08/25/20 08/25/20 07:21 07:21 12:06 WBC RBC 3.13 L Hgb 8.9 L Hct 26.5 L MCH MCHC RDW 20.6 H Plt Count [place] % (Auto) Lymph # (Auto) Seg Neutrophils % Seg Neuts % (Manual) 96.0 H Lymphocytes % (Manual) 3.0 L Seg Neutrophils # Man Abs Lymphs (Manual) Lymphocytes # (Manual) 0.2 L ABG pH POC ABG pCO2 POC ABG pO2 ABG Hemoglobin ABG Oxyhemoglobin ABG Potassium ABG Chloride ABG Glucose Sodium Potassium Chloride Carbon Dioxide 31 H BUN Glucose 208 H POC Glucose 162 H Calcium 7.4 L Magnesium TIBC Alkaline Phosphatase Albumin Arterial Blood Glucose Arterial Blood Ionized Calcium Lymph Enumerat CD4/CD8 % CD3 Cells Absolute CD3 Count % CD4 Cells Absolute CD4 Count Absolute CD8 Count Absolute CD19 Count Crossmatch 08/25/20 08/25/20 08/26/20 17:01 21:52 05:09 WBC 14.9 H RBC 3.11 L Hgb 8.9 L Hct 26.7 L MCH MCHC RDW 20.6 H Plt Count [place] % (Auto) Lymph # (Auto) Seg Neutrophils % Seg Neuts % (Manual) Lymphocytes % (Manual) Seg Neutrophils # Man Abs Lymphs (Manual) Lymphocytes # (Manual) ABG pH POC ABG pCO2 POC ABG pO2 ABG Hemoglobin ABG Oxyhemoglobin ABG Potassium ABG Chloride ABG Glucose Sodium Potassium Chloride Carbon Dioxide BUN Glucose POC Glucose 158 H 175 H Calcium Magnesium TIBC Alkaline Phosphatase Albumin Arterial Blood Glucose Arterial Blood Ionized Calcium Lymph Enumerat CD4/CD8 % CD3 Cells Absolute CD3 Count % CD4 Cells Absolute CD4 Count Absolute CD8 Count Absolute CD19 Count Crossmatch 08/26/20 08/26/2021 05:09 07:21 11:21 WBC RBC Hgb Hct MCH MCHC RDW Plt Count [place] % (Auto) Lymph # (Auto) Seg Neutrophils % Seg Neuts % (Manual) Lymphocytes % (Manual) Seg Neutrophils # Man Abs Lymphs (Manual) Lymphocytes # (Manual) ABG pH POC ABG pCO2 POC ABG pO2 ABG Hemoglobin ABG Oxyhemoglobin ABG Potassium ABG Chloride ABG Glucose Sodium Potassium Chloride Carbon Dioxide 31 H BUN 21 H Glucose 183 H POC Glucose 149 H 145 H Calcium 7.0 L Magnesium TIBC Alkaline Phosphatase Albumin Arterial Blood Glucose Arterial Blood Ionized Calcium Lymph Enumerat CD4/CD8 % CD3 Cells Absolute CD3 Count % CD4 Cells Absolute CD4 Count Absolute CD8 Count Absolute CD19 Count Crossmatch 08/26/20 08/26/20 08/27/20 16:49 21:19 04:41 WBC 11.5 H RBC 2.93 L Hgb 8.0 L Hct 25.2 L MCH 27 L MCHC RDW 21.0 H Plt Count [place] % (Auto) Lymph # (Auto) Seg Neutrophils % Seg Neuts % (Manual) Lymphocytes % (Manual) Seg Neutrophils # Man Abs Lymphs (Manual) Lymphocytes # (Manual) ABG pH POC ABG pCO2 POC ABG pO2 ABG Hemoglobin ABG Oxyhemoglobin ABG Potassium ABG Chloride ABG Glucose Sodium Potassium Chloride Carbon Dioxide BUN Glucose POC Glucose 177 H 144 H Calcium Magnesium TIBC Alkaline Phosphatase Albumin Arterial Blood Glucose Arterial Blood Ionized Calcium Lymph Enumerat CD4/CD8 % CD3 Cells Absolute CD3 Count % CD4 Cells Absolute CD4 Count Absolute CD8 Count Absolute CD19 Count Crossmatch 08/27/20 08/27/20 08/27/20 04:41 07:25 07:30 WBC RBC Hgb Hct MCH MCHC RDW Plt Count [place] % (Auto) Lymph # (Auto) Seg Neutrophils % Seg Neuts % (Manual) Lymphocytes % (Manual) Seg Neutrophils # Man Abs Lymphs (Manual) Lymphocytes # (Manual) ABG pH POC ABG pCO2 POC ABG pO2 ABG Hemoglobin ABG Oxyhemoglobin ABG Potassium ABG Chloride ABG Glucose Sodium Potassium Chloride Carbon Dioxide 35 H BUN 24 H Glucose 173 H POC Glucose 153 H 143 H Calcium 7.3 L Magnesium TIBC Alkaline Phosphatase Albumin Arterial Blood Glucose Arterial Blood Ionized Calcium Lymph Enumerat CD4/CD8 % CD3 Cells Absolute CD3 Count % CD4 Cells Absolute CD4 Count Absolute CD8 Count Absolute CD19 Count Crossmatch 08/27/20 08/27/20 08/27/20 11:27 15:49 21:17 WBC RBC Hgb Hct MCH MCHC RDW Plt Count [place] % (Auto) Lymph # (Auto) Seg Neutrophils % Seg Neuts % (Manual) Lymphocytes % (Manual) Seg Neutrophils # Man Abs Lymphs (Manual) Lymphocytes # (Manual) ABG pH POC ABG pCO2 POC ABG pO2 ABG Hemoglobin ABG Oxyhemoglobin ABG Potassium ABG Chloride ABG Glucose Sodium Potassium Chloride Carbon Dioxide BUN Glucose POC Glucose 236 H 184 H 144 H Calcium Magnesium TIBC Alkaline Phosphatase Albumin Arterial Blood Glucose Arterial Blood Ionized Calcium Lymph Enumerat CD4/CD8 % CD3 Cells Absolute CD3 Count % CD4 Cells Absolute CD4 Count Absolute CD8 Count Absolute CD19 Count Crossmatch 08/28/20 08/28/20 08/28/20 05:55 05:55 07:25 WBC RBC 2.58 L Hgb 7.6 L Hct 22.1 L MCH MCHC 35 H RDW 20.3 H Plt Count [place] % (Auto) Lymph # (Auto) Seg Neutrophils % Seg Neuts % (Manual) Lymphocytes % (Manual) Seg Neutrophils # Man Abs Lymphs (Manual) Lymphocytes # (Manual) ABG pH POC ABG pCO2 POC ABG pO2 ABG Hemoglobin ABG Oxyhemoglobin ABG Potassium ABG Chloride ABG Glucose Sodium Potassium 3.5 L Chloride Carbon Dioxide BUN 33 H Glucose 183 H POC Glucose 164 H Calcium 6.8 L Magnesium TIBC Alkaline Phosphatase Albumin Arterial Blood Glucose Arterial Blood Ionized Calcium Lymph Enumerat CD4/CD8 % CD3 Cells Absolute CD3 Count % CD4 Cells Absolute CD4 Count Absolute CD8 Count Absolute CD19 Count Crossmatch 08/28/20 08/28/20 08/28/20 11:00 12:06 15:28 WBC RBC Hgb Hct MCH MCHC RDW Plt Count [place] % (Auto) Lymph # (Auto) Seg Neutrophils % Seg Neuts % (Manual) Lymphocytes % (Manual) Seg Neutrophils # Man Abs Lymphs (Manual) Lymphocytes # (Manual) ABG pH 7.316 L POC ABG pCO2 68.0 H POC ABG pO2 75.4 L ABG Hemoglobin 8.3 L ABG Oxyhemoglobin 92.5 L ABG Potassium ABG Chloride ABG Glucose 302 H Sodium Potassium Chloride Carbon Dioxide BUN Glucose POC Glucose 233 H 146 H Calcium Magnesium TIBC Alkaline Phosphatase Albumin Arterial Blood Glucose 302 H Arterial Blood Ionized Calcium 3.8 L Lymph Enumerat CD4/CD8 % CD3 Cells Absolute CD3 Count % CD4 Cells Absolute CD4 Count Absolute CD8 Count Absolute CD19 Count Crossmatch 08/28/20 08/29/20 08/29/20 21:34 07:26 12:05 WBC RBC Hgb Hct MCH MCHC RDW Plt Count [place] % (Auto) Lymph # (Auto) Seg Neutrophils % Seg Neuts % (Manual) Lymphocytes % (Manual) Seg Neutrophils # Man Abs Lymphs (Manual) Lymphocytes # (Manual) ABG pH POC ABG pCO2 POC ABG pO2 ABG Hemoglobin ABG Oxyhemoglobin ABG Potassium ABG Chloride ABG Glucose Sodium Potassium Chloride Carbon Dioxide BUN Glucose POC Glucose 201 H 167 H 253 H Calcium Magnesium TIBC Alkaline Phosphatase Albumin Arterial Blood Glucose Arterial Blood Ionized Calcium Lymph Enumerat CD4/CD8 % CD3 Cells Absolute CD3 Count % CD4 Cells Absolute CD4 Count Absolute CD8 Count Absolute CD19 Count Crossmatch 08/29/20 08/29/20 08/30/20 16:32 21:56 07:53 WBC RBC Hgb Hct MCH MCHC RDW Plt Count [place] % (Auto) Lymph # (Auto) Seg Neutrophils % Seg Neuts % (Manual) Lymphocytes % (Manual) Seg Neutrophils # Man Abs Lymphs (Manual) Lymphocytes # (Manual) ABG pH POC ABG pCO2 POC ABG pO2 ABG Hemoglobin ABG Oxyhemoglobin ABG Potassium ABG Chloride ABG Glucose Sodium Potassium Chloride Carbon Dioxide BUN Glucose POC Glucose 128 H 220 H 286 H Calcium Magnesium TIBC Alkaline Phosphatase Albumin Arterial Blood Glucose Arterial Blood Ionized Calcium Lymph Enumerat CD4/CD8 % CD3 Cells Absolute CD3 Count % CD4 Cells Absolute CD4 Count Absolute CD8 Count Absolute CD19 Count Crossmatch 08/30/20 08/30/20 08/30/20 11:29 17:32 22:03 WBC RBC Hgb Hct MCH MCHC RDW Plt Count [place] % (Auto) Lymph # (Auto) Seg Neutrophils % Seg Neuts % (Manual) Lymphocytes % (Manual) Seg Neutrophils # Man Abs Lymphs (Manual) Lymphocytes # (Manual) ABG pH POC ABG pCO2 POC ABG pO2 ABG Hemoglobin ABG Oxyhemoglobin ABG Potassium ABG Chloride ABG Glucose Sodium Potassium Chloride Carbon Dioxide BUN Glucose POC Glucose 299 H 260 H 196 H Calcium Magnesium TIBC Alkaline Phosphatase Albumin Arterial Blood Glucose Arterial Blood Ionized Calcium Lymph Enumerat CD4/CD8 % CD3 Cells Absolute CD3 Count % CD4 Cells Absolute CD4 Count Absolute CD8 Count Absolute CD19 Count Crossmatch 08/31/20 08/31/20 08/31/20 07:41 11:26 16:19 WBC RBC Hgb Hct MCH MCHC RDW Plt Count [place] % (Auto) Lymph # (Auto) Seg Neutrophils % Seg Neuts % (Manual) Lymphocytes % (Manual) Seg Neutrophils # Man Abs Lymphs (Manual) Lymphocytes # (Manual) ABG pH POC ABG pCO2 POC ABG pO2 ABG Hemoglobin ABG Oxyhemoglobin ABG Potassium ABG Chloride ABG Glucose Sodium Potassium Chloride Carbon Dioxide BUN Glucose POC Glucose 166 H 269 H 265 H Calcium Magnesium TIBC Alkaline Phosphatase Albumin Arterial Blood Glucose Arterial Blood Ionized Calcium Lymph Enumerat CD4/CD8 % CD3 Cells Absolute CD3 Count % CD4 Cells Absolute CD4 Count Absolute CD8 Count Absolute CD19 Count Crossmatch 08/31/20 09/01/20 09/01/20 20:44 07:40 11:39 WBC RBC Hgb Hct MCH MCHC RDW Plt Count [place] % (Auto) Lymph # (Auto) Seg Neutrophils % Seg Neuts % (Manual) Lymphocytes % (Manual) Seg Neutrophils # Man Abs Lymphs (Manual) Lymphocytes # (Manual) ABG pH POC ABG pCO2 POC ABG pO2 ABG Hemoglobin ABG Oxyhemoglobin ABG Potassium ABG Chloride ABG Glucose Sodium Potassium Chloride Carbon Dioxide BUN Glucose POC Glucose 243 H 272 H 320 H Calcium Magnesium TIBC Alkaline Phosphatase Albumin Arterial Blood Glucose Arterial Blood Ionized Calcium Lymph Enumerat CD4/CD8 % CD3 Cells Absolute CD3 Count % CD4 Cells Absolute CD4 Count Absolute CD8 Count Absolute CD19 Count Crossmatch 09/01/20 09/01/20 09/02/20 16:16 21:59 08:32 WBC RBC Hgb Hct MCH MCHC RDW Plt Count [place] % (Auto) Lymph # (Auto) Seg Neutrophils % Seg Neuts % (Manual) Lymphocytes % (Manual) Seg Neutrophils # Man Abs Lymphs (Manual) Lymphocytes # (Manual) ABG pH POC ABG pCO2 POC ABG pO2 ABG Hemoglobin ABG Oxyhemoglobin ABG Potassium ABG Chloride ABG Glucose Sodium Potassium Chloride Carbon Dioxide BUN Glucose POC Glucose 319 H 157 H 195 H Calcium Magnesium TIBC Alkaline Phosphatase Albumin Arterial Blood Glucose Arterial Blood Ionized Calcium Lymph Enumerat CD4/CD8 % CD3 Cells Absolute CD3 Count % CD4 Cells Absolute CD4 Count Absolute CD8 Count Absolute CD19 Count Crossmatch 09/02/20 09/02/20 09/03/20 11:44 20:09 05:02 WBC RBC 2.25 L Hgb 6.5 L Hct 19.7 L* MCH MCHC RDW 21.3 H Plt Count [place] % (Auto) Lymph # (Auto) Seg Neutrophils % Seg Neuts % (Manual) Lymphocytes % (Manual) Seg Neutrophils # Man Abs Lymphs (Manual) Lymphocytes # (Manual) ABG pH POC ABG pCO2 POC ABG pO2 ABG Hemoglobin ABG Oxyhemoglobin ABG Potassium ABG Chloride ABG Glucose Sodium Potassium Chloride Carbon Dioxide BUN Glucose POC Glucose 167 H 214 H Calcium Magnesium TIBC Alkaline Phosphatase Albumin Arterial Blood Glucose Arterial Blood Ionized Calcium Lymph Enumerat CD4/CD8 % CD3 Cells Absolute CD3 Count % CD4 Cells Absolute CD4 Count Absolute CD8 Count Absolute CD19 Count Crossmatch 09/03/20 09/03/20 09/03/20 05:02 07:35 09:56 WBC RBC Hgb Hct MCH MCHC RDW Plt Count [place] % (Auto) Lymph # (Auto) Seg Neutrophils % Seg Neuts % (Manual) Lymphocytes % (Manual) Seg Neutrophils # Man Abs Lymphs (Manual) Lymphocytes # (Manual) ABG pH POC ABG pCO2 POC ABG pO2 ABG Hemoglobin ABG Oxyhemoglobin ABG Potassium ABG Chloride ABG Glucose Sodium 149 H Potassium 3.3 L Chloride Carbon Dioxide 38 H BUN 30 H Glucose 212 H POC Glucose 207 H Calcium 6.7 L Magnesium TIBC Alkaline Phosphatase Albumin Arterial Blood Glucose Arterial Blood Ionized Calcium Lymph Enumerat CD4/CD8 % CD3 Cells Absolute CD3 Count % CD4 Cells Absolute CD4 Count Absolute CD8 Count Absolute CD19 Count Crossmatch See Detail 09/03/20 09/03/20 09/04/20 12:05 16:04 05:53 WBC 14.8 H RBC 2.99 L Hgb 8.6 L Hct 26.4 L D MCH MCHC RDW 19.0 H Plt Count [place] % (Auto) Lymph # (Auto) Seg Neutrophils % Seg Neuts % (Manual) Lymphocytes % (Manual) Seg Neutrophils # Man Abs Lymphs (Manual) Lymphocytes # (Manual) ABG pH POC ABG pCO2 POC ABG pO2 ABG Hemoglobin ABG Oxyhemoglobin ABG Potassium ABG Chloride ABG Glucose Sodium Potassium Chloride Carbon Dioxide BUN Glucose POC Glucose 193 H 174 H Calcium Magnesium TIBC Alkaline Phosphatase Albumin Arterial Blood Glucose Arterial Blood Ionized Calcium Lymph Enumerat CD4/CD8 % CD3 Cells Absolute CD3 Count % CD4 Cells Absolute CD4 Count Absolute CD8 Count Absolute CD19 Count Crossmatch 09/04/20 09/04/20 09/04/20 05:53 05:53 08:33 WBC RBC Hgb Hct MCH MCHC RDW Plt Count [place] % (Auto) Lymph # (Auto) Seg Neutrophils % Seg Neuts % (Manual) Lymphocytes % (Manual) Seg Neutrophils # Man Abs Lymphs (Manual) 98 L Lymphocytes # (Manual) ABG pH POC ABG pCO2 POC ABG pO2 ABG Hemoglobin ABG Oxyhemoglobin ABG Potassium ABG Chloride ABG Glucose Sodium 149 H Potassium Chloride Carbon Dioxide 39 H BUN 28 H Glucose 175 H POC Glucose 222 H Calcium 6.9 L Magnesium TIBC 214 L Alkaline Phosphatase Albumin Arterial Blood Glucose Arterial Blood Ionized Calcium Lymph Enumerat CD4/CD8 0.68 L % CD3 Cells 51 L Absolute CD3 Count 50 L % CD4 Cells 20 L Absolute CD4 Count 20 L Absolute CD8 Count 29 L Absolute CD19 Count 17 L Crossmatch 09/04/20 09/04/20 09/05/20 11:21 15:42 04:56 WBC RBC 2.88 L Hgb 8.6 L Hct 25.3 L MCH MCHC RDW 19.6 H Plt Count [place] % (Auto) Lymph # (Auto) Seg Neutrophils % Seg Neuts % (Manual) Lymphocytes % (Manual) Seg Neutrophils # Man Abs Lymphs (Manual) Lymphocytes # (Manual) ABG pH POC ABG pCO2 POC ABG pO2 ABG Hemoglobin ABG Oxyhemoglobin ABG Potassium ABG Chloride ABG Glucose Sodium Potassium Chloride Carbon Dioxide BUN Glucose POC Glucose 253 H 240 H Calcium Magnesium TIBC Alkaline Phosphatase Albumin Arterial Blood Glucose Arterial Blood Ionized Calcium Lymph Enumerat CD4/CD8 % CD3 Cells Absolute CD3 Count % CD4 Cells Absolute CD4 Count Absolute CD8 Count Absolute CD19 Count Crossmatch 09/05/20 09/05/20 09/05/20 04:56 07:31 12:01 WBC RBC Hgb Hct MCH MCHC RDW Plt Count [place] % (Auto) Lymph # (Auto) Seg Neutrophils % Seg Neuts % (Manual) Lymphocytes % (Manual) Seg Neutrophils # Man Abs Lymphs (Manual) Lymphocytes # (Manual) ABG pH POC ABG pCO2 POC ABG pO2 ABG Hemoglobin ABG Oxyhemoglobin ABG Potassium ABG Chloride ABG Glucose Sodium 149 H Potassium 3.1 L Chloride Carbon Dioxide 48 H* D BUN 24 H Glucose 142 H POC Glucose 131 H 124 H Calcium 6.5 L Magnesium TIBC Alkaline Phosphatase Albumin Arterial Blood Glucose Arterial Blood Ionized Calcium Lymph Enumerat CD4/CD8 % CD3 Cells Absolute CD3 Count % CD4 Cells Absolute CD4 Count Absolute CD8 Count Absolute CD19 Count Crossmatch 09/05/20 09/05/20 09/06/20 16:52 20:19 04:26 WBC RBC Hgb Hct MCH MCHC RDW Plt Count [place] % (Auto) Lymph # (Auto) Seg Neutrophils % Seg Neuts % (Manual) Lymphocytes % (Manual) Seg Neutrophils # Man Abs Lymphs (Manual) Lymphocytes # (Manual) ABG pH POC ABG pCO2 POC ABG pO2 ABG Hemoglobin ABG Oxyhemoglobin ABG Potassium ABG Chloride ABG Glucose Sodium 151 H Potassium 3.3 L Chloride Carbon Dioxide 44 H* BUN 24 H Glucose POC Glucose 168 H 130 H Calcium 5.8 L* Magnesium TIBC Alkaline Phosphatase Albumin Arterial Blood Glucose Arterial Blood Ionized Calcium Lymph Enumerat CD4/CD8 % CD3 Cells Absolute CD3 Count % CD4 Cells Absolute CD4 Count Absolute CD8 Count Absolute CD19 Count Crossmatch 09/06/20 09/06/20 09/06/20 11:51 15:19 20:20 WBC RBC Hgb Hct MCH MCHC RDW Plt Count [place] % (Auto) Lymph # (Auto) Seg Neutrophils % Seg Neuts % (Manual) Lymphocytes % (Manual) Seg Neutrophils # Man Abs Lymphs (Manual) Lymphocytes # (Manual) ABG pH POC ABG pCO2 POC ABG pO2 ABG Hemoglobin ABG Oxyhemoglobin ABG Potassium ABG Chloride ABG Glucose Sodium Potassium Chloride Carbon Dioxide BUN Glucose POC Glucose 150 H 113 H 138 H Calcium Magnesium TIBC Alkaline Phosphatase Albumin Arterial Blood Glucose Arterial Blood Ionized Calcium Lymph Enumerat CD4/CD8 % CD3 Cells Absolute CD3 Count % CD4 Cells Absolute CD4 Count Absolute CD8 Count Absolute CD19 Count Crossmatch 09/07/20 09/07/20 09/07/20 07:41 09:41 11:47 WBC RBC Hgb Hct MCH MCHC RDW Plt Count [place] % (Auto) Lymph # (Auto) Seg Neutrophils % Seg Neuts % (Manual) Lymphocytes % (Manual) Seg Neutrophils # Man Abs Lymphs (Manual) Lymphocytes # (Manual) ABG pH POC ABG pCO2 POC ABG pO2 ABG Hemoglobin ABG Oxyhemoglobin ABG Potassium ABG Chloride ABG Glucose Sodium 146 H Potassium Chloride Carbon Dioxide 43 H* BUN 24 H Glucose 186 H POC Glucose 118 H 198 H Calcium 6.1 L Magnesium TIBC Alkaline Phosphatase Albumin Arterial Blood Glucose Arterial Blood Ionized Calcium Lymph Enumerat CD4/CD8 % CD3 Cells Absolute CD3 Count % CD4 Cells Absolute CD4 Count Absolute CD8 Count Absolute CD19 Count Crossmatch 09/07/20 09/08/20 09/08/20 21:58 05:09 07:55 WBC RBC Hgb Hct MCH MCHC RDW Plt Count [place] % (Auto) Lymph # (Auto) Seg Neutrophils % Seg Neuts % (Manual) Lymphocytes % (Manual) Seg Neutrophils # Man Abs Lymphs (Manual) Lymphocytes # (Manual) ABG pH POC ABG pCO2 POC ABG pO2 ABG Hemoglobin ABG Oxyhemoglobin ABG Potassium ABG Chloride ABG Glucose Sodium 146 H Potassium Chloride Carbon Dioxide 47 H* BUN Glucose 120 H POC Glucose 215 H 110 H Calcium 6.1 L Magnesium TIBC Alkaline Phosphatase Albumin Arterial Blood Glucose Arterial Blood Ionized Calcium Lymph Enumerat CD4/CD8 % CD3 Cells Absolute CD3 Count % CD4 Cells Absolute CD4 Count Absolute CD8 Count Absolute CD19 Count Crossmatch 09/08/20 09/08/20 09/08/20 11:27 16:46 20:17 WBC RBC Hgb Hct MCH MCHC RDW Plt Count [place] % (Auto) Lymph # (Auto) Seg Neutrophils % Seg Neuts % (Manual) Lymphocytes % (Manual) Seg Neutrophils # Man Abs Lymphs (Manual) Lymphocytes # (Manual) ABG pH POC ABG pCO2 POC ABG pO2 ABG Hemoglobin ABG Oxyhemoglobin ABG Potassium ABG Chloride ABG Glucose Sodium Potassium Chloride Carbon Dioxide BUN Glucose POC Glucose 113 H 139 H 122 H Calcium Magnesium TIBC Alkaline Phosphatase Albumin Arterial Blood Glucose Arterial Blood Ionized Calcium Lymph Enumerat CD4/CD8 % CD3 Cells Absolute CD3 Count % CD4 Cells Absolute CD4 Count Absolute CD8 Count Absolute CD19 Count Crossmatch 09/09/20 09/09/20 09/09/20 08:08 11:28 16:22 WBC RBC Hgb Hct MCH MCHC RDW Plt Count [place] % (Auto) Lymph # (Auto) Seg Neutrophils % Seg Neuts % (Manual) Lymphocytes % (Manual) Seg Neutrophils # Man Abs Lymphs (Manual) Lymphocytes # (Manual) ABG pH POC ABG pCO2 POC ABG pO2 ABG Hemoglobin ABG Oxyhemoglobin ABG Potassium ABG Chloride ABG Glucose Sodium Potassium Chloride Carbon Dioxide BUN Glucose POC Glucose 107 H 113 H 108 H Calcium Magnesium TIBC Alkaline Phosphatase Albumin Arterial Blood Glucose Arterial Blood Ionized Calcium Lymph Enumerat CD4/CD8 % CD3 Cells Absolute CD3 Count % CD4 Cells Absolute CD4 Count Absolute CD8 Count Absolute CD19 Count Crossmatch 09/10/20 09/10/20 09/10/20 11:55 16:10 20:56 WBC RBC Hgb Hct MCH MCHC RDW Plt Count [place] % (Auto) Lymph # (Auto) Seg Neutrophils % Seg Neuts % (Manual) Lymphocytes % (Manual) Seg Neutrophils # Man Abs Lymphs (Manual) Lymphocytes # (Manual) ABG pH POC ABG pCO2 POC ABG pO2 ABG Hemoglobin ABG Oxyhemoglobin ABG Potassium ABG Chloride ABG Glucose Sodium Potassium Chloride Carbon Dioxide BUN Glucose POC Glucose 156 H 127 H 311 H Calcium Magnesium TIBC Alkaline Phosphatase Albumin Arterial Blood Glucose Arterial Blood Ionized Calcium Lymph Enumerat CD4/CD8 % CD3 Cells Absolute CD3 Count % CD4 Cells Absolute CD4 Count Absolute CD8 Count Absolute CD19 Count Crossmatch 09/11/20 09/11/20 09/11/20 04:07 07:41 11:19 WBC RBC Hgb Hct MCH MCHC RDW Plt Count [place] % (Auto) Lymph # (Auto) Seg Neutrophils % Seg Neuts % (Manual) Lymphocytes % (Manual) Seg Neutrophils # Man Abs Lymphs (Manual) Lymphocytes # (Manual) ABG pH POC ABG pCO2 POC ABG pO2 ABG Hemoglobin ABG Oxyhemoglobin ABG Potassium ABG Chloride ABG Glucose Sodium Potassium Chloride 95.1 L Carbon Dioxide 48 H* BUN Glucose 135 H POC Glucose 151 H 152 H Calcium 6.1 L Magnesium TIBC Alkaline Phosphatase Albumin Arterial Blood Glucose Arterial Blood Ionized Calcium Lymph Enumerat CD4/CD8 % CD3 Cells Absolute CD3 Count % CD4 Cells Absolute CD4 Count Absolute CD8 Count Absolute CD19 Count Crossmatch 09/11/20 09/11/20 09/12/20 16:45 20:22 08:12 WBC RBC Hgb Hct MCH MCHC RDW Plt Count [place] % (Auto) Lymph # (Auto) Seg Neutrophils % Seg Neuts % (Manual) Lymphocytes % (Manual) Seg Neutrophils # Man Abs Lymphs (Manual) Lymphocytes # (Manual) ABG pH POC ABG pCO2 POC ABG pO2 ABG Hemoglobin ABG Oxyhemoglobin ABG Potassium ABG Chloride ABG Glucose Sodium Potassium Chloride Carbon Dioxide BUN Glucose POC Glucose 156 H 220 H 202 H Calcium Magnesium TIBC Alkaline Phosphatase Albumin Arterial Blood Glucose Arterial Blood Ionized Calcium Lymph Enumerat CD4/CD8 % CD3 Cells Absolute CD3 Count % CD4 Cells Absolute CD4 Count Absolute CD8 Count Absolute CD19 Count Crossmatch 09/12/20 09/12/20 09/12/20 10:52 12:37 16:47 WBC RBC Hgb Hct MCH MCHC RDW Plt Count [place] % (Auto) Lymph # (Auto) Seg Neutrophils % Seg Neuts % (Manual) Lymphocytes % (Manual) Seg Neutrophils # Man Abs Lymphs (Manual) Lymphocytes # (Manual) ABG pH POC ABG pCO2 POC ABG pO2 ABG Hemoglobin ABG Oxyhemoglobin ABG Potassium ABG Chloride ABG Glucose Sodium Potassium Chloride Carbon Dioxide BUN Glucose POC Glucose 62 L 170 H 261 H Calcium Magnesium TIBC Alkaline Phosphatase Albumin Arterial Blood Glucose Arterial Blood Ionized Calcium Lymph Enumerat CD4/CD8 % CD3 Cells Absolute CD3 Count % CD4 Cells Absolute CD4 Count Absolute CD8 Count Absolute CD19 Count Crossmatch 09/13/20 09/13/20 09/13/20 00:40 07:25 11:15 WBC RBC Hgb Hct MCH MCHC RDW Plt Count [place] % (Auto) Lymph # (Auto) Seg Neutrophils % Seg Neuts % (Manual) Lymphocytes % (Manual) Seg Neutrophils # Man Abs Lymphs (Manual) Lymphocytes # (Manual) ABG pH POC ABG pCO2 POC ABG pO2 ABG Hemoglobin ABG Oxyhemoglobin ABG Potassium ABG Chloride ABG Glucose Sodium Potassium Chloride Carbon Dioxide BUN Glucose POC Glucose 134 H 158 H 130 H Calcium Magnesium TIBC Alkaline Phosphatase Albumin Arterial Blood Glucose Arterial Blood Ionized Calcium Lymph Enumerat CD4/CD8 % CD3 Cells Absolute CD3 Count % CD4 Cells Absolute CD4 Count Absolute CD8 Count Absolute CD19 Count Crossmatch 09/13/20 09/13/20 09/14/20 15:30 20:37 10:27 WBC RBC Hgb Hct MCH MCHC RDW Plt Count [place] % (Auto) Lymph # (Auto) Seg Neutrophils % Seg Neuts % (Manual) Lymphocytes % (Manual) Seg Neutrophils # Man Abs Lymphs (Manual) Lymphocytes # (Manual) ABG pH 7.471 H POC ABG pCO2 62.3 H POC ABG pO2 ABG Hemoglobin 8.2 L ABG Oxyhemoglobin ABG Potassium 3.1 L ABG Chloride 94.0 L ABG Glucose 189 H Sodium Potassium Chloride Carbon Dioxide BUN Glucose POC Glucose 147 H 159 H Calcium Magnesium TIBC Alkaline Phosphatase Albumin Arterial Blood Glucose 189 H Arterial Blood Ionized Calcium 3.0 L Lymph Enumerat CD4/CD8 % CD3 Cells Absolute CD3 Count % CD4 Cells Absolute CD4 Count Absolute CD8 Count Absolute CD19 Count Crossmatch 09/14/20 09/14/20 09/14/20 11:48 17:11 21:56 WBC RBC Hgb Hct MCH MCHC RDW Plt Count [place] % (Auto) Lymph # (Auto) Seg Neutrophils % Seg Neuts % (Manual) Lymphocytes % (Manual) Seg Neutrophils # Man Abs Lymphs (Manual) Lymphocytes # (Manual) ABG pH POC ABG pCO2 POC ABG pO2 ABG Hemoglobin ABG Oxyhemoglobin ABG Potassium ABG Chloride ABG Glucose Sodium Potassium Chloride Carbon Dioxide BUN Glucose POC Glucose 187 H 145 H 221 H Calcium Magnesium TIBC Alkaline Phosphatase Albumin Arterial Blood Glucose Arterial Blood Ionized Calcium Lymph Enumerat CD4/CD8 % CD3 Cells Absolute CD3 Count % CD4 Cells Absolute CD4 Count Absolute CD8 Count Absolute CD19 Count Crossmatch 09/15/20 09/15/20 09/15/20 04:18 04:18 10:43 WBC RBC 1.73 L Hgb 5.3 L* Hct 16.1 L* MCH MCHC RDW 21.7 H Plt Count 136 L [place] % (Auto) Lymph # (Auto) 0.8 L Seg Neutrophils % 81.3 H Seg Neuts % (Manual) Lymphocytes % (Manual) Seg Neutrophils # Man Abs Lymphs (Manual) Lymphocytes # (Manual) ABG pH POC ABG pCO2 POC ABG pO2 ABG Hemoglobin ABG Oxyhemoglobin ABG Potassium ABG Chloride ABG Glucose Sodium 146 H Potassium 3.5 L Chloride 97.7 L Carbon Dioxide 42 H* BUN Glucose 102 H POC Glucose Calcium 5.5 L* Magnesium 1.60 L TIBC Alkaline Phosphatase Albumin Arterial Blood Glucose Arterial Blood Ionized Calcium Lymph Enumerat CD4/CD8 % CD3 Cells Absolute CD3 Count % CD4 Cells Absolute CD4 Count Absolute CD8 Count Absolute CD19 Count Crossmatch See Detail 09/15/20 09/15/20 09/15/20 10:43 12:41 23:48 WBC RBC Hgb 5.9 L* Hct 18.5 L* MCH MCHC RDW Plt Count [place] % (Auto) Lymph # (Auto) Seg Neutrophils % Seg Neuts % (Manual) Lymphocytes % (Manual) Seg Neutrophils # Man Abs Lymphs (Manual) Lymphocytes # (Manual) ABG pH POC ABG pCO2 POC ABG pO2 ABG Hemoglobin ABG Oxyhemoglobin ABG Potassium ABG Chloride ABG Glucose Sodium Potassium Chloride Carbon Dioxide BUN Glucose POC Glucose 119 H 187 H Calcium Magnesium TIBC Alkaline Phosphatase Albumin Arterial Blood Glucose Arterial Blood Ionized Calcium Lymph Enumerat CD4/CD8 % CD3 Cells Absolute CD3 Count % CD4 Cells Absolute CD4 Count Absolute CD8 Count Absolute CD19 Count Crossmatch 09/16/20 09/16/20 09/16/20 04:36 10:53 15:53 WBC RBC 2.79 L Hgb 8.8 L Hct 26.0 L D MCH MCHC RDW 17.0 H Plt Count [place] % (Auto) 8.9 H Lymph # (Auto) 0.8 L Seg Neutrophils % 73.5 H Seg Neuts % (Manual) Lymphocytes % (Manual) Seg Neutrophils # Man Abs Lymphs (Manual) Lymphocytes # (Manual) ABG pH POC ABG pCO2 POC ABG pO2 ABG Hemoglobin ABG Oxyhemoglobin ABG Potassium ABG Chloride ABG Glucose Sodium Potassium Chloride Carbon Dioxide BUN Glucose POC Glucose 122 H 196 H Calcium Magnesium TIBC Alkaline Phosphatase Albumin Arterial Blood Glucose Arterial Blood Ionized Calcium Lymph Enumerat CD4/CD8 % CD3 Cells Absolute CD3 Count % CD4 Cells Absolute CD4 Count Absolute CD8 Count Absolute CD19 Count Crossmatch 09/16/20 09/17/20 09/17/20 21:13 16:49 23:39 WBC RBC Hgb Hct MCH MCHC RDW Plt Count [place] % (Auto) Lymph # (Auto) Seg Neutrophils % Seg Neuts % (Manual) Lymphocytes % (Manual) Seg Neutrophils # Man Abs Lymphs (Manual) Lymphocytes # (Manual) ABG pH POC ABG pCO2 POC ABG pO2 ABG Hemoglobin ABG Oxyhemoglobin ABG Potassium ABG Chloride ABG Glucose Sodium Potassium Chloride Carbon Dioxide BUN Glucose POC Glucose 152 H 200 H 175 H Calcium Magnesium TIBC Alkaline Phosphatase Albumin Arterial Blood Glucose Arterial Blood Ionized Calcium Lymph Enumerat CD4/CD8 % CD3 Cells Absolute CD3 Count % CD4 Cells Absolute CD4 Count Absolute CD8 Count Absolute CD19 Count Crossmatch 09/18/20 09/18/20 07:46 11:31 WBC RBC Hgb Hct MCH MCHC RDW Plt Count [place] % (Auto) Lymph # (Auto) Seg Neutrophils % Seg Neuts % (Manual) Lymphocytes % (Manual) Seg Neutrophils # Man Abs Lymphs (Manual) Lymphocytes # (Manual) ABG pH POC ABG pCO2 POC ABG pO2 ABG Hemoglobin ABG Oxyhemoglobin ABG Potassium ABG Chloride ABG Glucose Sodium Potassium Chloride Carbon Dioxide BUN Glucose POC Glucose 162 H 135 H Calcium Magnesium TIBC Alkaline Phosphatase Albumin Arterial Blood Glucose Arterial Blood Ionized Calcium Lymph Enumerat CD4/CD8 % CD3 Cells Absolute CD3 Count % CD4 Cells Absolute CD4 Count Absolute CD8 Count Absolute CD19 Count Crossmatch Chest x-ray: report reviewed, image reviewed Additional Studies: CHEST 2 VIEWS 09/14/20 INDICATION / CLINICAL INFORMATION: COPD exacerbation. COMPARISON: 07/12/2020 FINDINGS: SUPPORT DEVICES: None. HEART / MEDIASTINUM: No significant abnormality. LUNGS / PLEURA: There is increased opacity within the left lower lung with the lingular lobe favored No pneumothorax. ADDITIONAL FINDINGS: No significant additional findings. IMPRESSION: 1. Opacity within the left lower lung which is concerning for infectious process in the appropriate clinical setting Allied health notes reviewed: nursing
[2020-09-18] MEDS: MIRTAZAPINE 15 MG TAB PO SCH (21:58)
[2020-09-18] MEDS: MONTELUKAST 10 MG TAB PO SCH (21:58)
[2020-09-18] MEDS: INSULIN LISPRO 100 UNIT/ML SUB-Q SCH (21:59)
[2020-09-19] MEDS: IPRATROPIUM 0.02% NEBU 2.5 ML IH SCH ×3 (02:30→15:05)
[2020-09-19] MEDS: LEVALBUTEROL 0.63 MG/3 ML NEBU IH SCH ×3 (02:30→15:04)
[2020-09-19] MEDS: HEPARIN 5,000 UNIT/1 ML VIAL SUB-Q SCH ×3 (06:34→21:42)
[2020-09-19] MEDS: ARFORMOTEROL 15 MCG/2 ML NEBU IH SCH ×2 (08:47→19:59)
[2020-09-19] MEDS: BUDESONIDE 0.5 MG/2 ML NEBU IH SCH ×2 (08:47→19:59)
[2020-09-19] MEDS: INSULIN NPH/REGULAR 70/30 INJ SUB-Q SCH ×2 (10:09→18:43)
[2020-09-19] MEDS: CALCIUM CARBONATE 500 MG TAB CHEW PO SCH ×3 (10:09→21:43)
[2020-09-19] MEDS: carvediloL 6.25 MG TAB PO SCH ×2 (10:10→21:08)
[2020-09-19] MEDS: ALPRAZolam 0.25 MG TAB PO PRN (10:13)
[2020-09-19] MEDS: FE FUMARATE/FA/MV, MIN COMB#15 CAP (HEMOCYTE PLUS) PO SCH (10:13)
[2020-09-19] MEDS: ASPIRIN EC 81 MG TAB PO SCH (10:13)
[2020-09-19] MEDS: predniSONE 10 MG TAB PO SCH (10:14)
[2020-09-19] MEDS: PANTOPRAZOLE 40 MG TAB PO SCH (10:14)
[2020-09-19] MEDS: POLYETHYLENE GLYCOL 3350 17 GM POWDER PO SCH (10:14)
[2020-09-19] MEDS: MULTIVITAMINS ,THERAPEUTIC TAB PO SCH (10:15)
--- NOTE | 2020-09-19 10:15 | Progress Note ---
Assessment and Plan Assessment and plan: --Severe anemia; no external evidence of bleeding; Type and cross transfuse 3 units of PRBC, Check stool for occult blood closely monitor H&H and transfuse additional PRBC As needed Consult GI if needed --Severe hypocalcemia; replenish with calcium gluconate Oral calcium carbonate, monitor levels --Hypokalemia/hypomagnesemia; Replenished with KCl and magnesium sulfate Monitor electrolytes --history of HIV infection for many years; Asymptomatic for many years, not on antiretrovirals Patient follow-up private ID/health department as needed --SIRS; without organ dysfunction, present on admission --General debility; Physical therapy, Occupational Therapy, rehabilitation PT OT recommended SNF placement --Paroxysmal atrial fibrillation; Patient is in sinus rhythm today with heart rate in 70s No A. fib last 24 hours Cardiology following Continue beta-blockers, not a candidate for anticoagulation Due to severe anemia requiring blood transfusion --Acute exacerbation of COPD ; Patient is a current smoker Continue nasal cannula oxygen titrate O2 sats to more than 90% --Acute hypoxic respiratory failure ; requiring BiPAP Continue oxygen via nasal cannula 4 L today Titrate O2 sats more than 90%, BiPAP as needed --Leukocytosis- resolved --Hypertension; moderate control Continue current antihypertensives, as needed medications --Normocytic anemia Hemoglobin is down to 8.0 > 7.6 this morning Closely monitor H&H transfuse as needed --Hyperglycemia -likely secondary to steroids HD A1c 5.8, Accu-Chek sliding scale coverage Long-acting insulin if needed --Ongoing tobacco abuse Patient counseled on tobacco cessation Nicotine patch as needed --Mild to moderate malnutrition/hypoalbuminemia Nutrition supplements and supportive care --DVT prophylaxis; Heparin subcu/SCDs Physical therapy/Occupational Therapy evaluation and treatment DC planning per case management OT recommended subacute rehab /SNF placement. Awaiting placement, patient is medically stable for discharge Peer to peer with insurance physician, 09/14/2020, did not approve SNF placement no indication for SNF placement per [facility] insurance physician. Awaiting placement DC planning per case management 64-year-old male with past medical history of COPD, hypertension asthma PE was admitted through emergency room with shortness of breath of 1 day duration morning. Patient was noted to be hypoxemic requiring supplemental oxygen, and work-up is consistent with acute exacerbation of COPD and acute on chronic h ypoxic respiratory failure. Requiring BiPAP and supplemental oxygen. Patient continues to be hypoxemic requiring supplemental oxygen. Patient symptoms slowly but gradually improved, however patient is debilitated with her underlying medical condition of chronic hypoxia, HIV disease Electrolyte imbalances, chronic alcohol use. Patient was evaluated by PT OT, strongly recommended SNF placement, however the insurance did not approve Saying that patient does not have the criteria for SNF placement Recommended long-term care placement instead 08/29; patient requiring BiPAP, severely short of breath, pulmonary following; Wean as tolerated ; requiring intermittent BiPAP especially at night This morning patient is on 4 L of nasal cannula oxygen Patient already has home oxygen at 3 L Pulmonary following 08/31/2020; patient continues to be in shortness of breath Unable to keep his oxygen, confused at times BiPAP as needed, pulmonary following Recommend placement SNF, Check for mccracken PCR PT OT evaluation 09/01/2020; on 4 L of nasal oxygen Awaiting placement Resumed service; 09/05/2020; I checked with monitor room, patient is in sinus heart rate in 70s No A. fib last 24 hours Awaiting subacute rehab placement 09/06/2020; hypokalemia, hypocalcemia Replenished with KCl, calcium gluconate and calcium carbonate Follow electrolytes 09/07/2020; follow today's labs Awaiting placement 09/08/2020; patient is clinically stable for discharge Awaiting subacute rehab placement 09/09/2020; awaiting placement 09/10/2020; no new complaints, stable for discharge Awaiting placement 09/11/2020; pulmonary cleared for discharge Pending placement DC planning per case management 09/12/2020; Pending placement SNF needs updated PT OT evaluations 09/13/2020; patient had PT OT updates Recommend SNF placement 09/14/2020; I had P2P with Dr. López[Nancie] at now insurance physician Discussed in detail patient's condition treatment and discharge planning The physician said patient does not fit the criteria for SNF, did not approve SNF placement However recommended to consider long-term care. I informed case management Ms. Ha the above conversation DC planning per case management Patient is medically stable for discharge 09/15/2020; patient has severe anemia today transfuse 3 units of PRBC, Stool for occult blood, GI consult, hypomagnesemia hypocalcemia and hypokalemia Replenish per protocol, closely monitor I resumed service; 09/19/2020; patient awaiting placement No new complaints History Interval history: I have seen and examined the patient at the bedside Patient's chart and medications reviewed Patient has no new complaints Vital signs noted Awaiting placement Hospitalist Physical - Constitutional Vitals: Temp Pulse Resp BP Pulse Ox 97.2 F L 90 19 128/74 99 09/19/20 07:27 09/19/20 08:49 09/19/20 08:49 09/19/20 07:27 09/19/20 08:48 General appearance: Present: no acute distress, well-nourished - EENT Eyes: Present: PERRL, EOM intact - Neck Neck: Present: supple, normal ROM - Respiratory Respiratory effort: normal Respiratory: bilateral: diminished, negative: rales, rhonchi, wheezing - Cardiovascular Rhythm: regular Heart Sounds: Present: S1 & S2 - Extremities Extremities: no ischemia, No edema - Abdominal General gastrointestinal: soft, non-tender, non-distended, normal bowel sounds - Integumentary Integumentary: Present: clear, warm - Psychiatric Psychiatric: appropriate mood/affect, cooperative - Neurologic Neurologic: CNII-XII intact, moves all extremities HEART Score - HEART Score Troponin: Troponin T < 0.010 ng/mL (0.00-0.029) 09/04/20 05:53 Results - Labs CBC & Chem 7: 09/16/20 04:36 09/15/20 04:18 Labs: Laboratory Last Values WBC 4.9 K/mm3 (4.5-11.0) 09/16/20 04:36 RBC 2.79 M/mm3 (3.65-5.03) L 09/16/20 04:36 Hgb 8.8 gm/dl (11.8-15.2) L 09/16/20 04:36 Hct 26.0 % (35.5-45.6) L D 09/16/20 04:36 MCV 93 fl (84-94) 09/16/20 04:36 MCH 32 pg (28-32) 09/16/20 04:36 MCHC 34 % (32-34) 09/16/20 04:36 RDW 17.0 % (13.2-15.2) H 09/16/20 04:36 Plt Count 151 K/mm3 (140-440) 09/16/20 04:36 Lymph % (Auto) 16.6 % (13.4-35.0) 09/16/20 04:36 [place] % (Auto) 8.9 % (0.0-7.3) H 09/16/20 04:36 Eos % (Auto) 0.4 % (0.0-4.3) 09/16/20 04:36 Baso % (Auto) 0.6 % (0.0-1.8) 09/16/20 04:36 Lymph # (Auto) 0.8 K/mm3 (1.2-5.4) L 09/16/20 04:36 [place] # (Auto) 0.4 K/mm3 (0.0-0.8) 09/16/20 04:36 Eos # (Auto) 0.0 K/mm3 (0.0-0.4) 09/16/20 04:36 Baso # (Auto) 0.0 K/mm3 (0.0-0.1) 09/16/20 04:36 Add Manual Diff Complete 08/25/20 07:21 Total Counted 100 08/25/20 07:21 Seg Neutrophils % 73.5 % (40.0-70.0) H 09/16/20 04:36 Seg Neuts % (Manual) 96.0 % (40.0-70.0) H 08/25/20 07:21 Lymphocytes % (Manual) 3.0 % (13.4-35.0) L 08/25/20 07:21 Monocytes % (Manual) 2.0 % (0.0-7.3) 08/24/20 19:29 Myelocytes % 1.0 % 08/25/20 07:21 Nucleated RBC % Not Reportable 08/25/20 07:21 Seg Neutrophils # 3.6 K/mm3 (1.8-7.7) 09/16/20 04:36 Seg Neutrophils # Man 4.8 K/mm3 (1.8-7.7) 08/25/20 07:21 Band Neutrophils # 0.0 K/mm3 08/25/20 07:21 Abs Lymphs (Manual) 98 cells/uL (850-3900) L 09/04/20 05:53 Lymphocytes # (Manual) 0.2 K/mm3 (1.2-5.4) L 08/25/20 07:21 Abs React Lymphs (Man) 0.0 K/mm3 08/25/20 07:21 Monocytes # (Manual) 0.0 K/mm3 (0.0-0.8) 08/25/20 07:21 Eosinophils # (Manual) 0.0 K/mm3 (0.0-0.4) 08/25/20 07:21 Basophils # (Manual) 0.0 K/mm3 (0.0-0.1) 08/25/20 07:21 Metamyelocytes # 0.0 K/mm3 08/25/20 07:21 Myelocytes # 0.1 K/mm3 08/25/20 07:21 Promyelocytes # 0.0 K/mm3 08/25/20 07:21 Blast Cells # 0.0 K/mm3 08/25/20 07:21 WBC Morphology Not Reportable 08/25/20 07:21 Hypersegmented Neuts Not Reportable 08/25/20 07:21 Hyposegmented Neuts Not Reportable 08/25/20 07:21 Hypogranular Neuts Not Reportable 08/25/20 07:21 Smudge Cells Not Reportable 08/25/20 07:21 Toxic Granulation Not Reportable 08/25/20 07:21 Toxic Vacuolation Not Reportable 08/25/20 07:21 Dohle Bodies Not Reportable 08/25/20 07:21 Pelger-Huet Anomaly Not Reportable 08/25/20 07:21 Ruma Rods Not Reportable 08/25/20 07:21 Platelet Estimate Consistent w auto 08/25/20 07:21 Clumped Platelets Not Reportable 08/25/20 07:21 Plt Clumps, EDTA Not Reportable 08/25/20 07:21 Large Platelets Not Reportable 08/25/20 07:21 Giant Platelets Not Reportable 08/25/20 07:21 Platelet Satelliting Not Reportable 08/25/20 07:21 Plt Morphology Comment Not Reportable 08/25/20 07:21 RBC Morphology Not Reportable 08/25/20 07:21 Dimorphic RBCs Not Reportable 08/25/20 07:21 Polychromasia Not Reportable 08/25/20 07:21 Hypochromasia 1+ 08/25/20 07:21 Poikilocytosis 1+ 08/25/20 07:21 Anisocytosis 1+ 08/25/20 07:21 Microcytosis Not Reportable 08/25/20 07:21 Macrocytosis Not Reportable 08/25/20 07:21 Spherocytes Not Reportable 08/25/20 07:21 Pappenheimer Bodies Not Reportable 08/25/20 07:21 Sickle Cells Not Reportable 08/25/20 07:21 Target Cells Not Reportable 08/25/20 07:21 Tear Drop Cells Not Reportable 08/25/20 07:21 Ovalocytes 1+ 08/25/20 07:21 Helmet Cells Not Reportable 08/25/20 07:21 [place] Bodies Not Reportable 08/25/20 07:21 [place] Rings Not Reportable 08/25/20 07:21 [place] Cells Not Reportable 08/25/20 07:21 Bite Cells Not Reportable 08/25/20 07:21 Crenated Cell Not Reportable 08/25/20 07:21 Elliptocytes 2+ 08/25/20 07:21 Acanthocytes (Spur) 1+ 08/25/20 07:21 Rouleaux Not Reportable 08/25/20 07:21 Hemoglobin C Crystals Not Reportable 08/25/20 07:21 Schistocytes Not Reportable 08/25/20 07:21 Malaria parasites Not Reportable 08/25/20 07:21 Ric Bodies Not Reportable 08/25/20 07:21 Hem Pathologist Commnt No 08/25/20 07:21 ABG pH 7.471 (7.320-7.450) H 09/14/20 10:27 POC ABG pCO2 62.3 mmHg (32.0-48.0) H 09/14/20 10:27 POC ABG pO2 96.7 mmHg (83-108) 09/14/20 10:27 POC ABG HCO3 44.4 09/14/20 10:27 ABG O2 Saturation 97.3 (0-100) 09/14/20 10:27 POC ABG Base Excess 18.6 09/14/20 10:27 ABG Hemoglobin 8.2 (12.0-17.5) L 09/14/20 10:27 ABG Oxyhemoglobin 96.1 (94-98) 09/14/20 10:27 ABG Methemoglobin 0.3 (0.0-1.5) 09/14/20 10:27 ABG Sodium 141.5 mmol/L (136.0-145.0) 09/14/20 10:27 ABG Potassium 3.1 mmol/L (3.40-4.50) L 09/14/20 10:27 ABG Chloride 94.0 mmol/L (98-107) L 09/14/20 10:27 ABG Glucose 189 mg/dL (65-95) H 09/14/20 10:27 Carboxyhemoglobin 0.9 (0.5-1.5) 09/14/20 10:27 FiO2 % 32.0 09/14/20 10:27 Sodium 146 mmol/L (137-145) H 09/15/20 04:18 Potassium 3.5 mmol/L (3.6-5.0) L 09/15/20 04:18 Chloride 97.7 mmol/L (98-107) L 09/15/20 04:18 Carbon Dioxide 42 mmol/L (22-30) H* 09/15/20 04:18 Anion Gap 10 mmol/L 09/15/20 04:18 BUN 14 mg/dL (9-20) 09/15/20 04:18 Creatinine 0.9 mg/dL (0.8-1.3) 09/15/20 04:18 Estimated GFR > 60 ml/min 09/15/20 04:18 BUN/Creatinine Ratio 16 % 09/15/20 04:18 Glucose 102 mg/dL (75-100) H 09/15/20 04:18 POC Glucose 70 mg/dL (70-105) 09/19/20 07:29 Hemoglobin A1c 5.8 % (4-6) 08/25/20 07:27 Calcium 5.5 mg/dL (8.4-10.2) L* 09/15/20 04:18 Magnesium 1.80 mg/dL (1.7-2.3) 09/16/20 04:36 Iron 58 ug/dL (49-181) 09/04/20 05:53 TIBC 214 mcg/dL (250-450) L 09/04/20 05:53 Total Bilirubin 0.40 mg/dL (0.1-1.2) 08/24/20 19:29 AST 21 units/L (5-40) 08/24/20 19:29 ALT 36 units/L (7-56) 08/24/20 19:29 Alkaline Phosphatase 154 units/L (35-129) H 08/24/20 19:29 Troponin T < 0.010 ng/mL (0.00-0.029) 09/04/20 05:53 Total Protein 6.5 g/dL (6.3-8.2) 08/24/20 19:29 Albumin 3.4 g/dL (3.9-5) L 08/24/20 19:29 Albumin/Globulin Ratio 1.1 % 08/24/20 19:29 Arterial Blood Glucose 189 mg/dL (65-95) H 09/14/20 10:27 Arterial Blood Ionized Calcium 3.0 mg/dL (4.6-5.3) L 09/14/20 10:27 Lymph Enumerat CD4/CD8 0.68 (0.86-5.00) L 09/04/20 05:53 % CD3 Cells 51 % (57-85) L 09/04/20 05:53 Absolute CD3 Count 50 cells/uL (840-3060) L 09/04/20 05:53 % CD4 Cells 20 % (30-61) L 09/04/20 05:53 Absolute CD4 Count 20 cells/uL (490-1740) L 09/04/20 05:53 % CD8 Cells 30 % (12-42) 09/04/20 05:53 Absolute CD8 Count 29 cells/uL (180-1170) L 09/04/20 05:53 % CD19 Cells 17 % (6-29) 09/04/20 05:53 Absolute CD19 Count 17 cells/uL (110-660) L 09/04/20 05:53 Coronavirus (PCR) Negative (Negative) 09/01/20 Unknown Blood Type A POSITIVE 09/15/20 10:43 Antibody Screen Negative 09/15/20 10:43 Crossmatch See Detail 09/15/20 10:43 [place]/IV: Voiding Method Urinal Active Medications - Current Medications Current Medications: Generic Name Dose Route Start Last Admin Trade Name Freq PRN Reason Stop Dose Admin Acetaminophen 650 mg 08/24/20 22:12 09/13/20 20:35 Acetaminophen 325 Mg Tab PO 650 mg Q4H PRN Administration Pain MILD(1-3)/Fever >100.5/KOENIG Alprazolam 0.25 mg 08/30/20 11:30 09/14/20 23:17 Alprazolam 0.25 Mg Tab PO 0.25 mg Q8H PRN Administration Anxiety Arformoterol Tartrate 15 mcg 08/25/20 20:00 09/19/20 08:47 Arformoterol 15 Mcg/2 Ml Nebu IH 15 mcg Q12HRT NADIA Administration Aspirin 81 mg 08/25/20 10:00 09/18/20 10:22 Aspirin Ec 81 Mg Tab PO 81 mg QDAY NADIA Administration Atorvastatin Calcium 40 mg 08/25/20 22:00 09/18/20 21:58 Atorvastatin 40 Mg Tab PO 40 mg QHS NADIA Administration Budesonide 0.5 mg 08/25/20 08:00 09/19/20 08:47 Budesonide 0.5 Mg/2 Ml Nebu IH 0.5 mg Q12HRT NADIA Administration Calcium Carbonate/Glycine 500 mg 09/06/20 09:00 09/19/20 10:09 Calcium Carbonate 500 Mg Tab Chew PO 500 mg TID NADIA Administration Carvedilol 6.25 mg 09/02/20 12:00 09/19/20 10:10 Carvedilol 6.25 Mg Tab PO 6.25 mg BID NADIA Administration Guaifenesin 400 mg 08/29/20 13:00 08/30/20 05:33 Guaifenesin 200 Mg Tab PO 400 mg Q4HR PRN Administration Cough Heparin Sodium (Porcine) 5,000 unit 08/25/20 06:00 09/19/20 06:34 Heparin 5,000 Unit/1 Ml Vial SUB-Q 5,000 unit Q8HR NADIA Administration Hydralazine HCl 10 mg 08/24/20 22:14 08/31/20 13:40 Hydralazine 20 Mg/1 Ml Inj IV 10 mg Q6H PRN Administration SBP>/=160; DBP >/=100 Insulin Human Isoph/Insulin Regular 5 unit 09/10/20 17:00 09/19/20 10:09 Insulin Nph/Regular 70/30 Inj SUB-Q 5 unit BIDDIAB NADIA Administration Insulin Human Lispro 0 unit 08/25/20 22:00 09/18/20 21:59 Insulin Lispro 100 Unit/Ml SUB-Q Not Given QHS [facility] Protocol Ipratropium Organ 0.5 mg 09/02/20 16:00 09/19/20 02:30 Ipratropium 0.02% Nebu 2.5 Ml IH Not Given Q8HRT NADIA Levalbuterol HCl 0.63 mg 09/01/20 18:00 09/19/20 08:48 Levalbuterol 0.63 Mg/3 Ml Nebu IH Not Given Q8HRT NADIA Mirtazapine 7.5 mg 08/25/20 22:00 09/18/20 21:58 Mirtazapine 15 Mg Tab PO 7.5 mg QHS NADIA Administration Montelukast Sodium 10 mg 08/25/20 22:00 09/18/20 21:58 Montelukast 10 Mg Tab PO 10 mg QHS NADIA Administration Multivitamins 1 each 09/04/20 10:00 09/18/20 10:22 Multivitamins ,Therapeutic Tab PO 1 each QDAY NADIA Administration Multivitamins/Iron 1 each 09/04/20 10:00 09/18/20 10:22 Fe Fumarate/Fa/Mv, Min Comb#15 Cap (Hemocyte Plus) PO 1 each QDAY NADIA Administration Ondansetron HCl 4 mg 08/24/20 22:12 Ondansetron 4 Mg/2 Ml Inj IV Q8H PRN Nausea And Vomiting Oxycodone/Acetaminophen 1 tab 08/24/20 22:23 09/18/20 21:58 Oxycodone /Acetaminophen 5-325mg Tab PO 1 tab BID PRN Administration Pain , Severe (7-10) Pantoprazole Sodium 40 mg 08/25/20 10:00 09/18/20 10:22 Pantoprazole 40 Mg Tab PO 40 mg QDAY NADIA Administration Polyethylene Glycol 17 gm 08/28/20 10:00 09/18/20 10:28 Polyethylene Glycol 3350 17 Gm Powder PO Not Given QDAY NADIA Prednisone 10 mg 09/18/20 10:00 09/18/20 10:22 Prednisone 10 Mg Tab PO 10 mg QDAY NADIA Administration Sodium Chloride 10 ml 08/25/20 10:00 09/18/20 21:58 Sodium Chloride 0.9% 10 Ml Flush Syringe IV 10 ml BID NADIA Administration Sodium Chloride 10 ml 08/24/20 22:12 Sodium Chloride 0.9% 10 Ml Flush Syringe IV PRN PRN LINE FLUSH Tramadol HCl 50 mg 08/24/20 22:23 09/09/20 01:47 Tramadol 50 Mg Tab PO 50 mg Q6HR PRN Administration Pain, Moderate (4-6) Nutrition/Malnutrition Assess - Dietary Evaluation Nutrition/Malnutrition Findings: Nutrition Notes Start: 08/25/20 08:25 Freq: Status: Active Protocol: Document 09/14/20 10:32 ERWIN (Rec: 09/14/20 10:35 ERWIN [id number]) Nutrition Notes Initial or Follow up Brief Note Current Diet Cardiac/Consistent CHO + Ensure Clear BID Height 5 ft 5 in Weight 51.8 kg Felt Body Weight (kg) 61.81 BMI 19.0 Weight Status Underweight Subjective/Other Information Pt has consumed 44% of meals since last assessment. Awaiting placement. Percent of energy/protein needs met: 59% energy 61% pro (excludes ONS) Is patient on ventilator? No Is Patient Ambulatory and/or Out of Bed No REE-([place]-confined to bed) 1481.472 Kcal/Kg value to use for calculation 35 Approximate Energy Requirements Using 1813 kcal/Kg Calculation Used for Recommendations Kcal/kg Additional Notes Pro needs 1.2-1.5g/k-78g/ day Fluid needs 1ml/kcal Nutrition Intervention Follow-Up By: 09/20/20 Additional Comments F/U: intakes (meals, ONS), wt
--- NOTE | 2020-09-19 12:07 | Progress Note ---
Assessment and Plan 64-year-old male with past medical history of COPD, hypertension, Diabetes,asthma PE was brought to the emergency room because of shortness of breath since this morning. Patient had an IV started by EMS and was given IV mag, Solu-Medrol and an albuterol treatment. EMS states that the patient states his symptoms are worsening. Patient states 5 breathing treatment just prior to arrival and did not work. Shortness of breath better with rest and worse with exertion. Patient states he has a long history of COPD and asthma. Patient states he had multiple visits to the ER for this. Patient denies chest pain. Patient denies fever and chills. Patient complains of dry cough Patient has history of smoking 1 pack x 40 years. Says stopped smoking 2 months ago. History of using Cocaine. Denies alcohol abuse. Says worked in [employer] field before he disabled. Patient and has two children.No Known drug allergies Patient sleeping on 2 litres O2. O2 saturation recorded is 94%. Patient breathing better. No acute respiratory distress. Patient afebrile and has no leukocytosis. Chest xray done 08/24/20 reported There is hyperinflation the lungs. No focal infiltrate is seen. Calcified granulomata are noted in the upper lung zones bilaterally. No pneumothorax. Chest xray 09/14/20 reported Opacity within the left lower lung which is concerning for infectious process in the appropriate clinical setting Patient is on Brovanna/Budesonide aerosol treatments, S/C Heparin and Protonix, and prednisone. - Patient Problems (1) Acute respiratory failure with hypoxia Current Visit: No Status: Acute Plan to address problem: O2 2 litres via nasal canula. Brovanna/Budesonide aerosol treatments. Albuterol/atrovent aerosol treatments as needed. S/C Heparin. Protonix, and prednisone. (2) COPD exacerbation Current Visit: No Status: Acute Plan to address problem: O2 2 litres via nasal canula. Brovanna/Budesonide aerosol treatments. Albuterol/atrovent aerosol treatments as needed. S/C Heparine. Protonix, and prednisone. PFTs as out patient. (3) ANGELIC (acute kidney injury) Current Visit: No Status: Acute Plan to address problem: Management as per nephrology. (4) GERD (gastroesophageal reflux disease) Current Visit: No Status: Acute Plan to address problem: Patient is on Protonix. (5) HIV (human immunodeficiency virus infection) Current Visit: No Status: Acute Qualifiers: Plan to address problem: Management as per infectious disease consultants. (6) Hypertension Current Visit: No Status: Acute Plan to address problem: Management as per primary care. (7) Cocaine use Current Visit: No Status: Chronic Plan to address problem: Counseled do not use any illegal drugs. (8) Tobacco use Current Visit: No Status: Chronic Plan to address problem: Counseled continue stop smoking. Subjective Date of service: 09/19/20 Principal diagnosis: Ac hypoxemic resp failure; AE-COPD; ANGELIC; HIV +ve; HTN; Cocaine Use Interval history: 64-year-old male with past medical history of COPD, hypertension, Diabetes,asthma PE was brought to the emergency room because of shortness of breath since this morning. Patient had an IV started by EMS and was given IV mag, Solu-Medrol and an albuterol treatment. EMS states that the patient states his symptoms are worsening. Patient states 5 breathing treatment just prior to arrival and did not work. Shortness of breath better with rest and worse with exertion. Patient states he has a long history of COPD and asthma. Patient states he had multiple visits to the ER for this. Patient denies chest pain. Patient denies fever and chills. Patient complains of dry cough Patient has history of smoking 1 pack x 40 years. Says stopped smoking 2 months ago. History of using Cocaine. Denies alcohol abuse. 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 Patient and has two children.No Known drug allergies Patient sleeping on 2 litres O2. O2 saturation recorded is 94%. Patient br eathing better. No acute respiratory distress. Patient afebrile and has no leukocytosis. Chest xray done 08/24/20 reported There is hyperinflation the lungs. No focal infiltrate is seen. Calcified granulomata are noted in the upper lung zones bilaterally. No pneumothorax. Chest xray 09/14/20 reported Opacity within the left lower lung which is concerning for infectious process in the appropriate clinical setting Patient is on Brovanna/Budesonide aerosol treatments, S/C Heparin and Protonix, and prednisone. Objective Vital Signs - 12hr 09/19/20 09/19/20 09/19/20 05:09 07:27 08:09 Temperature 98.5 F 97.2 F L Pulse Rate 78 79 78 Pulse Rate [ Bilateral] Respiratory 20 20 Rate Respiratory Rate [Bilateral ] Blood Pressure 144/91 128/74 O2 Sat by Pulse 92 96 98 Oximetry 09/19/20 09/19/20 08:48 08:49 Temperature Pulse Rate Pulse Rate [ 90 Bilateral] Respiratory Rate Respiratory 19 Rate [Bilateral ] Blood Pressure O2 Sat by Pulse 99 Oximetry Constitutional: no acute distress, asleep Eyes: non-icteric ENT: oropharynx moist Neck: supple, no JVD Effort: mildly labored Ascultation: Bilateral: diminished breath sounds, wheezes (faint; end expiratory), rhonchi, other (Prolonged expiratory phase.) Percussion: Bilateral: not dull Cardiovascular: regular rate and rhythm Gastrointestinal: normoactive bowel sounds, soft, non-tender, non-distended Integumentary: normal Extremities: no cyanosis, no edema, pulses normal, no ischemia or petechiae Neurologic: normal mental status, non-focal exam, pupils equal and round, motor strength normal and Psychiatric: mood appropriate, affect normal CBC and BMP: 09/16/20 04:36 09/15/20 04:18 ABG, PT/INR, D-dimer: ABG ABG pH 7.471 (7.320-7.450) H 09/14/20 10:27 POC ABG pCO2 62.3 mmHg (32.0-48.0) H 09/14/20 10:27 POC ABG pO2 96.7 mmHg (83-108) 09/14/20 10:27 POC ABG HCO3 44.4 09/14/20 10:27 ABG O2 Saturation 97.3 (0-100) 09/14/20 10:27 Abnormal lab findings: Abnormal Labs 08/24/20 08/24/20 08/25/20 19:29 19:29 07:00 WBC RBC 3.36 L Hgb 9.7 L Hct 28.5 L MCH MCHC RDW 20.6 H Plt Count [place] % (Auto) Lymph # (Auto) Seg Neutrophils % Seg Neuts % (Manual) 97.0 H Lymphocytes % (Manual) 1.0 L Seg Neutrophils # Man 10.2 H Abs Lymphs (Manual) Lymphocytes # (Manual) 0.1 L ABG pH POC ABG pCO2 POC ABG pO2 ABG Hemoglobin ABG Oxyhemoglobin ABG Potassium ABG Chloride ABG Glucose Sodium Potassium 3.3 L Chloride Carbon Dioxide BUN Glucose 121 H POC Glucose 211 H Calcium 7.6 L Magnesium TIBC Alkaline Phosphatase 154 H Albumin 3.4 L Arterial Blood Glucose Arterial Blood Ionized Calcium Lymph Enumerat CD4/CD8 % CD3 Cells Absolute CD3 Count % CD4 Cells Absolute CD4 Count Absolute CD8 Count Absolute CD19 Count Crossmatch 08/25/20 08/25/20 08/25/20 07:21 07:21 12:06 WBC RBC 3.13 L Hgb 8.9 L Hct 26.5 L MCH MCHC RDW 20.6 H Plt Count [place] % (Auto) Lymph # (Auto) Seg Neutrophils % Seg Neuts % (Manual) 96.0 H Lymphocytes % (Manual) 3.0 L Seg Neutrophils # Man Abs Lymphs (Manual) Lymphocytes # (Manual) 0.2 L ABG pH POC ABG pCO2 POC ABG pO2 ABG Hemoglobin ABG Oxyhemoglobin ABG Potassium ABG Chloride ABG Glucose Sodium Potassium Chloride Carbon Dioxide 31 H BUN Glucose 208 H POC Glucose 162 H Calcium 7.4 L Magnesium TIBC Alkaline Phosphatase Albumin Arterial Blood Glucose Arterial Blood Ionized Calcium Lymph Enumerat CD4/CD8 % CD3 Cells Absolute CD3 Count % CD4 Cells Absolute CD4 Count Absolute CD8 Count Absolute CD19 Count Crossmatch 08/25/20 08/25/20 08/26/20 17:01 21:52 05:09 WBC 14.9 H RBC 3.11 L Hgb 8.9 L Hct 26.7 L MCH MCHC RDW 20.6 H Plt Count [place] % (Auto) Lymph # (Auto) Seg Neutrophils % Seg Neuts % (Manual) Lymphocytes % (Manual) Seg Neutrophils # Man Abs Lymphs (Manual) Lymphocytes # (Manual) ABG pH POC ABG pCO2 POC ABG pO2 ABG Hemoglobin ABG Oxyhemoglobin ABG Potassium ABG Chloride ABG Glucose Sodium Potassium Chloride Carbon Dioxide BUN Glucose POC Glucose 158 H 175 H Calcium Magnesium TIBC Alkaline Phosphatase Albumin Arterial Blood Glucose Arterial Blood Ionized Calcium Lymph Enumerat CD4/CD8 % CD3 Cells Absolute CD3 Count % CD4 Cells Absolute CD4 Count Absolute CD8 Count Absolute CD19 Count Crossmatch 08/26/20 08/26/20 08/26/20 05:09 07:21 11:21 WBC RBC Hgb Hct MCH MCHC RDW Plt Count [place] % (Auto) Lymph # (Auto) Seg Neutrophils % Seg Neuts % (Manual) Lymphocytes % (Manual) Seg Neutrophils # Man Abs Lymphs (Manual) Lymphocytes # (Manual) ABG pH POC ABG pCO2 POC ABG pO2 ABG Hemoglobin ABG Oxyhemoglobin ABG Potassium ABG Chloride ABG Glucose Sodium Potassium Chloride Carbon Dioxide 31 H BUN 21 H Glucose 183 H POC Glucose 149 H 145 H Calcium 7.0 L Magnesium TIBC Alkaline Phosphatase Albumin Arterial Blood Glucose Arterial Blood Ionized Calcium Lymph Enumerat CD4/CD8 % CD3 Cells Absolute CD3 Count % CD4 Cells Absolute CD4 Count Absolute CD8 Count Absolute CD19 Count Crossmatch 08/26/20 08/26/20 08/27/20 16:49 21:19 04:41 WBC 11.5 H RBC 2.93 L Hgb 8.0 L Hct 25.2 L MCH 27 L MCHC RDW 21.0 H Plt Count [place] % (Auto) Lymph # (Auto) Seg Neutrophils % Seg Neuts % (Manual) Lymphocytes % (Manual) Seg Neutrophils # Man Abs Lymphs (Manual) Lymphocytes # (Manual) ABG pH POC ABG pCO2 POC ABG pO2 ABG Hemoglobin ABG Oxyhemoglobin ABG Potassium ABG Chloride ABG Glucose Sodium Potassium Chloride Carbon Dioxide BUN Glucose POC Glucose 177 H 144 H Calcium Magnesium TIBC Alkaline Phosphatase Albumin Arterial Blood Glucose Arterial Blood Ionized Calcium Lymph Enumerat CD4/CD8 % CD3 Cells Absolute CD3 Count % CD4 Cells Absolute CD4 Count Absolute CD8 Count Absolute CD19 Count Crossmatch 08/27/20 08/27/20 08/27/20 04:41 07:25 07:30 WBC RBC Hgb Hct MCH MCHC RDW Plt Count [place] % (Auto) Lymph # (Auto) Seg Neutrophils % Seg Neuts % (Manual) Lymphocytes % (Manual) Seg Neutrophils # Man Abs Lymphs (Manual) Lymphocytes # (Manual) ABG pH POC ABG pCO2 POC ABG pO2 ABG Hemoglobin ABG Oxyhemoglobin ABG Potassium ABG Chloride ABG Glucose Sodium Potassium Chloride Carbon Dioxide 35 H BUN 24 H Glucose 173 H POC Glucose 153 H 143 H Calcium 7.3 L Magnesium TIBC Alkaline Phosphatase Albumin Arterial Blood Glucose Arterial Blood Ionized Calcium Lymph Enumerat CD4/CD8 % CD3 Cells Absolute CD3 Count % CD4 Cells Absolute CD4 Count Absolute CD8 Count Absolute CD19 Count Crossmatch 08/27/20 08/27/20 08/27/20 11:27 15:49 21:17 WBC RBC Hgb Hct MCH MCHC RDW Plt Count [place] % (Auto) Lymph # (Auto) Seg Neutrophils % Seg Neuts % (Manual) Lymphocytes % (Manual) Seg Neutrophils # Man Abs Lymphs (Manual) Lymphocytes # (Manual) ABG pH POC ABG pCO2 POC ABG pO2 ABG Hemoglobin ABG Oxyhemoglobin ABG Potassium ABG Chloride ABG Glucose Sodium Potassium Chloride Carbon Dioxide BUN Glucose POC Glucose 236 H 184 H 144 H Calcium Magnesium TIBC Alkaline Phosphatase Albumin Arterial Blood Glucose Arterial Blood Ionized Calcium Lymph Enumerat CD4/CD8 % CD3 Cells Absolute CD3 Count % CD4 Cells Absolute CD4 Count Absolute CD8 Count Absolute CD19 Count Crossmatch 08/28/20 08/28/20 08/28/20 05:55 05:55 07:25 WBC RBC 2.58 L Hgb 7.6 L Hct 22.1 L MCH MCHC 35 H RDW 20.3 H Plt Count [place] % (Auto) Lymph # (Auto) Seg Neutrophils % Seg Neuts % (Manual) Lymphocytes % (Manual) Seg Neutrophils # Man Abs Lymphs (Manual) Lymphocytes # (Manual) ABG pH POC ABG pCO2 POC ABG pO2 ABG Hemoglobin ABG Oxyhemoglobin ABG Potassium ABG Chloride ABG Glucose Sodium Potassium 3.5 L Chloride Carbon Dioxide BUN 33 H Glucose 183 H POC Glucose 164 H Calcium 6.8 L Magnesium TIBC Alkaline Phosphatase Albumin Arterial Blood Glucose Arterial Blood Ionized Calcium Lymph Enumerat CD4/CD8 % CD3 Cells Absolute CD3 Count % CD4 Cells Absolute CD4 Count Absolute CD8 Count Absolute CD19 Count Crossmatch 08/28/20 08/28/20 08/28/20 11:00 12:06 15:28 WBC RBC Hgb Hct MCH MCHC RDW Plt Count [place] % (Auto) Lymph # (Auto) Seg Neutrophils % Seg Neuts % (Manual) Lymphocytes % (Manual) Seg Neutrophils # Man Abs Lymphs (Manual) Lymphocytes # (Manual) ABG pH 7.316 L POC ABG pCO2 68.0 H POC ABG pO2 75.4 L ABG Hemoglobin 8.3 L ABG Oxyhemoglobin 92.5 L ABG Potassium ABG Chloride ABG Glucose 302 H Sodium Potassium Chloride Carbon Dioxide BUN Glucose POC Glucose 233 H 146 H Calcium Magnesium TIBC Alkaline Phosphatase Albumin Arterial Blood Glucose 302 H Arterial Blood Ionized Calcium 3.8 L Lymph Enumerat CD4/CD8 % CD3 Cells Absolute CD3 Count % CD4 Cells Absolute CD4 Count Absolute CD8 Count Absolute CD19 Count Crossmatch 07/05/21 07/06/21 07/06/21 21:34 07:26 12:05 WBC RBC Hgb Hct MCH MCHC RDW Plt Count [place] % (Auto) Lymph # (Auto) Seg Neutrophils % Seg Neuts % (Manual) Lymphocytes % (Manual) Seg Neutrophils # Man Abs Lymphs (Manual) Lymphocytes # (Manual) ABG pH POC ABG pCO2 POC ABG pO2 ABG Hemoglobin ABG Oxyhemoglobin ABG Potassium ABG Chloride ABG Glucose Sodium Potassium Chloride Carbon Dioxide BUN Glucose POC Glucose 201 H 167 H 253 H Calcium Magnesium TIBC Alkaline Phosphatase Albumin Arterial Blood Glucose Arterial Blood Ionized Calcium Lymph Enumerat CD4/CD8 % CD3 Cells Absolute CD3 Count % CD4 Cells Absolute CD4 Count Absolute CD8 Count Absolute CD19 Count Crossmatch 08/29/20 08/29/20 08/30/20 16:32 21:56 07:53 WBC RBC Hgb Hct MCH MCHC RDW Plt Count [place] % (Auto) Lymph # (Auto) Seg Neutrophils % Seg Neuts % (Manual) Lymphocytes % (Manual) Seg Neutrophils # Man Abs Lymphs (Manual) Lymphocytes # (Manual) ABG pH POC ABG pCO2 POC ABG pO2 ABG Hemoglobin ABG Oxyhemoglobin ABG Potassium ABG Chloride ABG Glucose Sodium Potassium Chloride Carbon Dioxide BUN Glucose POC Glucose 128 H 220 H 286 H Calcium Magnesium TIBC Alkaline Phosphatase Albumin Arterial Blood Glucose Arterial Blood Ionized Calcium Lymph Enumerat CD4/CD8 % CD3 Cells Absolute CD3 Count % CD4 Cells Absolute CD4 Count Absolute CD8 Count Absolute CD19 Count Crossmatch 08/30/20 08/30/20 08/30/20 11:29 17:32 22:03 WBC RBC Hgb Hct MCH MCHC RDW Plt Count [place] % (Auto) Lymph # (Auto) Seg Neutrophils % Seg Neuts % (Manual) Lymphocytes % (Manual) Seg Neutrophils # Man Abs Lymphs (Manual) Lymphocytes # (Manual) ABG pH POC ABG pCO2 POC ABG pO2 ABG Hemoglobin ABG Oxyhemoglobin ABG Potassium ABG Chloride ABG Glucose Sodium Potassium Chloride Carbon Dioxide BUN Glucose POC Glucose 299 H 260 H 196 H Calcium Magnesium TIBC Alkaline Phosphatase Albumin Arterial Blood Glucose Arterial Blood Ionized Calcium Lymph Enumerat CD4/CD8 % CD3 Cells Absolute CD3 Count % CD4 Cells Absolute CD4 Count Absolute CD8 Count Absolute CD19 Count Crossmatch 08/31/20 08/31/20 08/31/20 07:41 11:26 16:19 WBC RBC Hgb Hct MCH MCHC RDW Plt Count [place] % (Auto) Lymph # (Auto) Seg Neutrophils % Seg Neuts % (Manual) Lymphocytes % (Manual) Seg Neutrophils # Man Abs Lymphs (Manual) Lymphocytes # (Manual) ABG pH POC ABG pCO2 POC ABG pO2 ABG Hemoglobin ABG Oxyhemoglobin ABG Potassium ABG Chloride ABG Glucose Sodium Potassium Chloride Carbon Dioxide BUN Glucose POC Glucose 166 H 269 H 265 H Calcium Magnesium TIBC Alkaline Phosphatase Albumin Arterial Blood Glucose Arterial Blood Ionized Calcium Lymph Enumerat CD4/CD8 % CD3 Cells Absolute CD3 Count % CD4 Cells Absolute CD4 Count Absolute CD8 Count Absolute CD19 Count Crossmatch 08/31/20 09/01/20 09/01/20 20:44 07:40 11:39 WBC RBC Hgb Hct MCH MCHC RDW Plt Count [place] % (Auto) Lymph # (Auto) Seg Neutrophils % Seg Neuts % (Manual) Lymphocytes % (Manual) Seg Neutrophils # Man Abs Lymphs (Manual) Lymphocytes # (Manual) ABG pH POC ABG pCO2 POC ABG pO2 ABG Hemoglobin ABG Oxyhemoglobin ABG Potassium ABG Chloride ABG Glucose Sodium Potassium Chloride Carbon Dioxide BUN Glucose POC Glucose 243 H 272 H 320 H Calcium Magnesium TIBC Alkaline Phosphatase Albumin Arterial Blood Glucose Arterial Blood Ionized Calcium Lymph Enumerat CD4/CD8 % CD3 Cells Absolute CD3 Count % CD4 Cells Absolute CD4 Count Absolute CD8 Count Absolute CD19 Count Crossmatch 09/01/20 09/01/20 09/02/20 16:16 21:59 08:32 WBC RBC Hgb Hct MCH MCHC RDW Plt Count [place] % (Auto) Lymph # (Auto) Seg Neutrophils % Seg Neuts % (Manual) Lymphocytes % (Manual) Seg Neutrophils # Man Abs Lymphs (Manual) Lymphocytes # (Manual) ABG pH POC ABG pCO2 POC ABG pO2 ABG Hemoglobin ABG Oxyhemoglobin ABG Potassium ABG Chloride ABG Glucose Sodium Potassium Chloride Carbon Dioxide BUN Glucose POC Glucose 319 H 157 H 195 H Calcium Magnesium TIBC Alkaline Phosphatase Albumin Arterial Blood Glucose Arterial Blood Ionized Calcium Lymph Enumerat CD4/CD8 % CD3 Cells Absolute CD3 Count % CD4 Cells Absolute CD4 Count Absolute CD8 Count Absolute CD19 Count Crossmatch 09/02/20 09/02/20 09/03/20 11:44 20:09 05:02 WBC RBC 2.25 L Hgb 6.5 L Hct 19.7 L* MCH MCHC RDW 21.3 H Plt Count [place] % (Auto) Lymph # (Auto) Seg Neutrophils % Seg Neuts % (Manual) Lymphocytes % (Manual) Seg Neutrophils # Man Abs Lymphs (Manual) Lymphocytes # (Manual) ABG pH POC ABG pCO2 POC ABG pO2 ABG Hemoglobin ABG Oxyhemoglobin ABG Potassium ABG Chloride ABG Glucose Sodium Potassium Chloride Carbon Dioxide BUN Glucose POC Glucose 167 H 214 H Calcium Magnesium TIBC Alkaline Phosphatase Albumin Arterial Blood Glucose Arterial Blood Ionized Calcium Lymph Enumerat CD4/CD8 % CD3 Cells Absolute CD3 Count % CD4 Cells Absolute CD4 Count Absolute CD8 Count Absolute CD19 Count Crossmatch 09/03/20 09/03/20 09/03/20 05:02 07:35 09:56 WBC RBC Hgb Hct MCH MCHC RDW Plt Count [place] % (Auto) Lymph # (Auto) Seg Neutrophils % Seg Neuts % (Manual) Lymphocytes % (Manual) Seg Neutrophils # Man Abs Lymphs (Manual) Lymphocytes # (Manual) ABG pH POC ABG pCO2 POC ABG pO2 ABG Hemoglobin ABG Oxyhemoglobin ABG Potassium ABG Chloride ABG Glucose Sodium 149 H Potassium 3.3 L Chloride Carbon Dioxide 38 H BUN 30 H Glucose 212 H POC Glucose 207 H Calcium 6.7 L Magnesium TIBC Alkaline Phosphatase Albumin Arterial Blood Glucose Arterial Blood Ionized Calcium Lymph Enumerat CD4/CD8 % CD3 Cells Absolute CD3 Count % CD4 Cells Absolute CD4 Count Absolute CD8 Count Absolute CD19 Count Crossmatch See Detail 09/03/20 09/03/20 09/04/20 12:05 16:04 05:53 WBC 14.8 H RBC 2.99 L Hgb 8.6 L Hct 26.4 L D MCH MCHC RDW 19.0 H Plt Count [place] % (Auto) Lymph # (Auto) Seg Neutrophils % Seg Neuts % (Manual) Lymphocytes % (Manual) Seg Neutrophils # Man Abs Lymphs (Manual) Lymphocytes # (Manual) ABG pH POC ABG pCO2 POC ABG pO2 ABG Hemoglobin ABG Oxyhemoglobin ABG Potassium ABG Chloride ABG Glucose Sodium Potassium Chloride Carbon Dioxide BUN Glucose POC Glucose 193 H 174 H Calcium Magnesium TIBC Alkaline Phosphatase Albumin Arterial Blood Glucose Arterial Blood Ionized Calcium Lymph Enumerat CD4/CD8 % CD3 Cells Absolute CD3 Count % CD4 Cells Absolute CD4 Count Absolute CD8 Count Absolute CD19 Count Crossmatch 09/04/20 09/04/20 09/04/20 05:53 05:53 08:33 WBC RBC Hgb Hct MCH MCHC RDW Plt Count [place] % (Auto) Lymph # (Auto) Seg Neutrophils % Seg Neuts % (Manual) Lymphocytes % (Manual) Seg Neutrophils # Man Abs Lymphs (Manual) 98 L Lymphocytes # (Manual) ABG pH POC ABG pCO2 POC ABG pO2 ABG Hemoglobin ABG Oxyhemoglobin ABG Potassium ABG Chloride ABG Glucose Sodium 149 H Potassium Chloride Carbon Dioxide 39 H BUN 28 H Glucose 175 H POC Glucose 222 H Calcium 6.9 L Magnesium TIBC 214 L Alkaline Phosphatase Albumin Arterial Blood Glucose Arterial Blood Ionized Calcium Lymph Enumerat CD4/CD8 0.68 L % CD3 Cells 51 L Absolute CD3 Count 50 L % CD4 Cells 20 L Absolute CD4 Count 20 L Absolute CD8 Count 29 L Absolute CD19 Count 17 L Crossmatch 09/04/20 09/04/20 09/05/20 11:21 15:42 04:56 WBC RBC 2.88 L Hgb 8.6 L Hct 25.3 L MCH MCHC RDW 19.6 H Plt Count [place] % (Auto) Lymph # (Auto) Seg Neutrophils % Seg Neuts % (Manual) Lymphocytes % (Manual) Seg Neutrophils # Man Abs Lymphs (Manual) Lymphocytes # (Manual) ABG pH POC ABG pCO2 POC ABG pO2 ABG Hemoglobin ABG Oxyhemoglobin ABG Potassium ABG Chloride ABG Glucose Sodium Potassium Chloride Carbon Dioxide BUN Glucose POC Glucose 253 H 240 H Calcium Magnesium TIBC Alkaline Phosphatase Albumin Arterial Blood Glucose Arterial Blood Ionized Calcium Lymph Enumerat CD4/CD8 % CD3 Cells Absolute CD3 Count % CD4 Cells Absolute CD4 Count Absolute CD8 Count Absolute CD19 Count Crossmatch 09/05/20 09/05/20 09/05/20 04:56 07:31 12:01 WBC RBC Hgb Hct MCH MCHC RDW Plt Count [place] % (Auto) Lymph # (Auto) Seg Neutrophils % Seg Neuts % (Manual) Lymphocytes % (Manual) Seg Neutrophils # Man Abs Lymphs (Manual) Lymphocytes # (Manual) ABG pH POC ABG pCO2 POC ABG pO2 ABG Hemoglobin ABG Oxyhemoglobin ABG Potassium ABG Chloride ABG Glucose Sodium 149 H Potassium 3.1 L Chloride Carbon Dioxide 48 H* D BUN 24 H Glucose 142 H POC Glucose 131 H 124 H Calcium 6.5 L Magnesium TIBC Alkaline Phosphatase Albumin Arterial Blood Glucose Arterial Blood Ionized Calcium Lymph Enumerat CD4/CD8 % CD3 Cells Absolute CD3 Count % CD4 Cells Absolute CD4 Count Absolute CD8 Count Absolute CD19 Count Crossmatch 09/05/20 09/05/20 09/06/20 16:52 20:19 04:26 WBC RBC Hgb Hct MCH MCHC RDW Plt Count [place] % (Auto) Lymph # (Auto) Seg Neutrophils % Seg Neuts % (Manual) Lymphocytes % (Manual) Seg Neutrophils # Man Abs Lymphs (Manual) Lymphocytes # (Manual) ABG pH POC ABG pCO2 POC ABG pO2 ABG Hemoglobin ABG Oxyhemoglobin ABG Potassium ABG Chloride ABG Glucose Sodium 151 H Potassium 3.3 L Chloride Carbon Dioxide 44 H* BUN 24 H Glucose POC Glucose 168 H 130 H Calcium 5.8 L* Magnesium TIBC Alkaline Phosphatase Albumin Arterial Blood Glucose Arterial Blood Ionized Calcium Lymph Enumerat CD4/CD8 % CD3 Cells Absolute CD3 Count % CD4 Cells Absolute CD4 Count Absolute CD8 Count Absolute CD19 Count Crossmatch 09/06/20 09/06/20 09/06/20 11:51 15:19 20:20 WBC RBC Hgb Hct MCH MCHC RDW Plt Count [place] % (Auto) Lymph # (Auto) Seg Neutrophils % Seg Neuts % (Manual) Lymphocytes % (Manual) Seg Neutrophils # Man Abs Lymphs (Manual) Lymphocytes # (Manual) ABG pH POC ABG pCO2 POC ABG pO2 ABG Hemoglobin ABG Oxyhemoglobin ABG Potassium ABG Chloride ABG Glucose Sodium Potassium Chloride Carbon Dioxide BUN Glucose POC Glucose 150 H 113 H 138 H Calcium Magnesium TIBC Alkaline Phosphatase Albumin Arterial Blood Glucose Arterial Blood Ionized Calcium Lymph Enumerat CD4/CD8 % CD3 Cells Absolute CD3 Count % CD4 Cells Absolute CD4 Count Absolute CD8 Count Absolute CD19 Count Crossmatch 09/07/20 09/07/20 09/07/20 07:41 09:41 11:47 WBC RBC Hgb Hct MCH MCHC RDW Plt Count [place] % (Auto) Lymph # (Auto) Seg Neutrophils % Seg Neuts % (Manual) Lymphocytes % (Manual) Seg Neutrophils # Man Abs Lymphs (Manual) Lymphocytes # (Manual) ABG pH POC ABG pCO2 POC ABG pO2 ABG Hemoglobin ABG Oxyhemoglobin ABG Potassium ABG Chloride ABG Glucose Sodium 146 H Potassium Chloride Carbon Dioxide 43 H* BUN 24 H Glucose 186 H POC Glucose 118 H 198 H Calcium 6.1 L Magnesium TIBC Alkaline Phosphatase Albumin Arterial Blood Glucose Arterial Blood Ionized Calcium Lymph Enumerat CD4/CD8 % CD3 Cells Absolute CD3 Count % CD4 Cells Absolute CD4 Count Absolute CD8 Count Absolute CD19 Count Crossmatch 09/07/20 09/08/20 09/08/20 21:58 05:09 07:55 WBC RBC Hgb Hct MCH MCHC RDW Plt Count [place] % (Auto) Lymph # (Auto) Seg Neutrophils % Seg Neuts % (Manual) Lymphocytes % (Manual) Seg Neutrophils # Man Abs Lymphs (Manual) Lymphocytes # (Manual) ABG pH POC ABG pCO2 POC ABG pO2 ABG Hemoglobin ABG Oxyhemoglobin ABG Potassium ABG Chloride ABG Glucose Sodium 146 H Potassium Chloride Carbon Dioxide 47 H* BUN Glucose 120 H POC Glucose 215 H 110 H Calcium 6.1 L Magnesium TIBC Alkaline Phosphatase Albumin Arterial Blood Glucose Arterial Blood Ionized Calcium Lymph Enumerat CD4/CD8 % CD3 Cells Absolute CD3 Count % CD4 Cells Absolute CD4 Count Absolute CD8 Count Absolute CD19 Count Crossmatch 09/08/20 09/08/20 09/08/20 11:27 16:46 20:17 WBC RBC Hgb Hct MCH MCHC RDW Plt Count [place] % (Auto) Lymph # (Auto) Seg Neutrophils % Seg Neuts % (Manual) Lymphocytes % (Manual) Seg Neutrophils # Man Abs Lymphs (Manual) Lymphocytes # (Manual) ABG pH POC ABG pCO2 POC ABG pO2 ABG Hemoglobin ABG Oxyhemoglobin ABG Potassium ABG Chloride ABG Glucose Sodium Potassium Chloride Carbon Dioxide BUN Glucose POC Glucose 113 H 139 H 122 H Calcium Magnesium TIBC Alkaline Phosphatase Albumin Arterial Blood Glucose Arterial Blood Ionized Calcium Lymph Enumerat CD4/CD8 % CD3 Cells Absolute CD3 Count % CD4 Cells Absolute CD4 Count Absolute CD8 Count Absolute CD19 Count Crossmatch 09/09/20 09/09/20 09/09/20 08:08 11:28 16:22 WBC RBC Hgb Hct MCH MCHC RDW Plt Count [place] % (Auto) Lymph # (Auto) Seg Neutrophils % Seg Neuts % (Manual) Lymphocytes % (Manual) Seg Neutrophils # Man Abs Lymphs (Manual) Lymphocytes # (Manual) ABG pH POC ABG pCO2 POC ABG pO2 ABG Hemoglobin ABG Oxyhemoglobin ABG Potassium ABG Chloride ABG Glucose Sodium Potassium Chloride Carbon Dioxide BUN Glucose POC Glucose 107 H 113 H 108 H Calcium Magnesium TIBC Alkaline Phosphatase Albumin Arterial Blood Glucose Arterial Blood Ionized Calcium Lymph Enumerat CD4/CD8 % CD3 Cells Absolute CD3 Count % CD4 Cells Absolute CD4 Count Absolute CD8 Count Absolute CD19 Count Crossmatch 09/10/20 09/10/20 09/10/20 11:55 16:10 20:56 WBC RBC Hgb Hct MCH MCHC RDW Plt Count [place] % (Auto) Lymph # (Auto) Seg Neutrophils % Seg Neuts % (Manual) Lymphocytes % (Manual) Seg Neutrophils # Man Abs Lymphs (Manual) Lymphocytes # (Manual) ABG pH POC ABG pCO2 POC ABG pO2 ABG Hemoglobin ABG Oxyhemoglobin ABG Potassium ABG Chloride ABG Glucose Sodium Potassium Chloride Carbon Dioxide BUN Glucose POC Glucose 156 H 127 H 311 H Calcium Magnesium TIBC Alkaline Phosphatase Albumin Arterial Blood Glucose Arterial Blood Ionized Calcium Lymph Enumerat CD4/CD8 % CD3 Cells Absolute CD3 Count % CD4 Cells Absolute CD4 Count Absolute CD8 Count Absolute CD19 Count Crossmatch 09/11/20 09/11/20 09/11/20 04:07 07:41 11:19 WBC RBC Hgb Hct MCH MCHC RDW Plt Count [place] % (Auto) Lymph # (Auto) Seg Neutrophils % Seg Neuts % (Manual) Lymphocytes % (Manual) Seg Neutrophils # Man Abs Lymphs (Manual) Lymphocytes # (Manual) ABG pH POC ABG pCO2 POC ABG pO2 ABG Hemoglobin ABG Oxyhemoglobin ABG Potassium ABG Chloride ABG Glucose Sodium Potassium Chloride 95.1 L Carbon Dioxide 48 H* BUN Glucose 135 H POC Glucose 151 H 152 H Calcium 6.1 L Magnesium TIBC Alkaline Phosphatase Albumin Arterial Blood Glucose Arterial Blood Ionized Calcium Lymph Enumerat CD4/CD8 % CD3 Cells Absolute CD3 Count % CD4 Cells Absolute CD4 Count Absolute CD8 Count Absolute CD19 Count Crossmatch 09/11/20 09/11/20 09/12/20 16:45 20:22 08:12 WBC RBC Hgb Hct MCH MCHC RDW Plt Count [place] % (Auto) Lymph # (Auto) Seg Neutrophils % Seg Neuts % (Manual) Lymphocytes % (Manual) Seg Neutrophils # Man Abs Lymphs (Manual) Lymphocytes # (Manual) ABG pH POC ABG pCO2 POC ABG pO2 ABG Hemoglobin ABG Oxyhemoglobin ABG Potassium ABG Chloride ABG Glucose Sodium Potassium Chloride Carbon Dioxide BUN Glucose POC Glucose 156 H 220 H 202 H Calcium Magnesium TIBC Alkaline Phosphatase Albumin Arterial Blood Glucose Arterial Blood Ionized Calcium Lymph Enumerat CD4/CD8 % CD3 Cells Absolute CD3 Count % CD4 Cells Absolute CD4 Count Absolute CD8 Count Absolute CD19 Count Crossmatch 09/12/20 09/12/20 09/12/20 10:52 12:37 16:47 WBC RBC Hgb Hct MCH MCHC RDW Plt Count [place] % (Auto) Lymph # (Auto) Seg Neutrophils % Seg Neuts % (Manual) Lymphocytes % (Manual) Seg Neutrophils # Man Abs Lymphs (Manual) Lymphocytes # (Manual) ABG pH POC ABG pCO2 POC ABG pO2 ABG Hemoglobin ABG Oxyhemoglobin ABG Potassium ABG Chloride ABG Glucose Sodium Potassium Chloride Carbon Dioxide BUN Glucose POC Glucose 62 L 170 H 261 H Calcium Magnesium TIBC Alkaline Phosphatase Albumin Arterial Blood Glucose Arterial Blood Ionized Calcium Lymph Enumerat CD4/CD8 % CD3 Cells Absolute CD3 Count % CD4 Cells Absolute CD4 Count Absolute CD8 Count Absolute CD19 Count Crossmatch 09/13/20 09/13/20 09/13/20 00:40 07:25 11:15 WBC RBC Hgb Hct MCH MCHC RDW Plt Count [place] % (Auto) Lymph # (Auto) Seg Neutrophils % Seg Neuts % (Manual) Lymphocytes % (Manual) Seg Neutrophils # Man Abs Lymphs (Manual) Lymphocytes # (Manual) ABG pH POC ABG pCO2 POC ABG pO2 ABG Hemoglobin ABG Oxyhemoglobin ABG Potassium ABG Chloride ABG Glucose Sodium Potassium Chloride Carbon Dioxide BUN Glucose POC Glucose 134 H 158 H 130 H Calcium Magnesium TIBC Alkaline Phosphatase Albumin Arterial Blood Glucose Arterial Blood Ionized Calcium Lymph Enumerat CD4/CD8 % CD3 Cells Absolute CD3 Count % CD4 Cells Absolute CD4 Count Absolute CD8 Count Absolute CD19 Count Crossmatch 09/13/20 09/13/20 09/14/20 15:30 20:37 10:27 WBC RBC Hgb Hct MCH MCHC RDW Plt Count [place] % (Auto) Lymph # (Auto) Seg Neutrophils % Seg Neuts % (Manual) Lymphocytes % (Manual) Seg Neutrophils # Man Abs Lymphs (Manual) Lymphocytes # (Manual) ABG pH 7.471 H POC ABG pCO2 62.3 H POC ABG pO2 ABG Hemoglobin 8.2 L ABG Oxyhemoglobin ABG Potassium 3.1 L ABG Chloride 94.0 L ABG Glucose 189 H Sodium Potassium Chloride Carbon Dioxide BUN Glucose POC Glucose 147 H 159 H Calcium Magnesium TIBC Alkaline Phosphatase Albumin Arterial Blood Glucose 189 H Arterial Blood Ionized Calcium 3.0 L Lymph Enumerat CD4/CD8 % CD3 Cells Absolute CD3 Count % CD4 Cells Absolute CD4 Count Absolute CD8 Count Absolute CD19 Count Crossmatch 09/14/20 09/14/20 09/14/20 11:48 17:11 21:56 WBC RBC Hgb Hct MCH MCHC RDW Plt Count [place] % (Auto) Lymph # (Auto) Seg Neutrophils % Seg Neuts % (Manual) Lymphocytes % (Manual) Seg Neutrophils # Man Abs Lymphs (Manual) Lymphocytes # (Manual) ABG pH POC ABG pCO2 POC ABG pO2 ABG Hemoglobin ABG Oxyhemoglobin ABG Potassium ABG Chloride ABG Glucose Sodium Potassium Chloride Carbon Dioxide BUN Glucose POC Glucose 187 H 145 H 221 H Calcium Magnesium TIBC Alkaline Phosphatase Albumin Arterial Blood Glucose Arterial Blood Ionized Calcium Lymph Enumerat CD4/CD8 % CD3 Cells Absolute CD3 Count % CD4 Cells Absolute CD4 Count Absolute CD8 Count Absolute CD19 Count Crossmatch 09/15/20 09/15/20 09/15/20 04:18 04:18 10:43 WBC RBC 1.73 L Hgb 5.3 L* Hct 16.1 L* MCH MCHC RDW 21.7 H Plt Count 136 L [place] % (Auto) Lymph # (Auto) 0.8 L Seg Neutrophils % 81.3 H Seg Neuts % (Manual) Lymphocytes % (Manual) Seg Neutrophils # Man Abs Lymphs (Manual) Lymphocytes # (Manual) ABG pH POC ABG pCO2 POC ABG pO2 ABG Hemoglobin ABG Oxyhemoglobin ABG Potassium ABG Chloride ABG Glucose Sodium 146 H Potassium 3.5 L Chloride 97.7 L Carbon Dioxide 42 H* BUN Glucose 102 H POC Glucose Calcium 5.5 L* Magnesium 1.60 L TIBC Alkaline Phosphatase Albumin Arterial Blood Glucose Arterial Blood Ionized Calcium Lymph Enumerat CD4/CD8 % CD3 Cells Absolute CD3 Count % CD4 Cells Absolute CD4 Count Absolute CD8 Count Absolute CD19 Count Crossmatch See Detail 09/15/20 09/15/20 09/15/20 10:43 12:41 23:48 WBC RBC Hgb 5.9 L* Hct 18.5 L* MCH MCHC RDW Plt Count [place] % (Auto) Lymph # (Auto) Seg Neutrophils % Seg Neuts % (Manual) Lymphocytes % (Manual) Seg Neutrophils # Man Abs Lymphs (Manual) Lymphocytes # (Manual) ABG pH POC ABG pCO2 POC ABG pO2 ABG Hemoglobin ABG Oxyhemoglobin ABG Potassium ABG Chloride ABG Glucose Sodium Potassium Chloride Carbon Dioxide BUN Glucose POC Glucose 119 H 187 H Calcium Magnesium TIBC Alkaline Phosphatase Albumin Arterial Blood Glucose Arterial Blood Ionized Calcium Lymph Enumerat CD4/CD8 % CD3 Cells Absolute CD3 Count % CD4 Cells Absolute CD4 Count Absolute CD8 Count Absolute CD19 Count Crossmatch 09/16/20 09/16/20 09/16/20 04:36 10:53 15:53 WBC RBC 2.79 L Hgb 8.8 L Hct 26.0 L D MCH MCHC RDW 17.0 H Plt Count [place] % (Auto) 8.9 H Lymph # (Auto) 0.8 L Seg Neutrophils % 73.5 H Seg Neuts % (Manual) Lymphocytes % (Manual) Seg Neutrophils # Man Abs Lymphs (Manual) Lymphocytes # (Manual) ABG pH POC ABG pCO2 POC ABG pO2 ABG Hemoglobin ABG Oxyhemoglobin ABG Potassium ABG Chloride ABG Glucose Sodium Potassium Chloride Carbon Dioxide BUN Glucose POC Glucose 122 H 196 H Calcium Magnesium TIBC Alkaline Phosphatase Albumin Arterial Blood Glucose Arterial Blood Ionized Calcium Lymph Enumerat CD4/CD8 % CD3 Cells Absolute CD3 Count % CD4 Cells Absolute CD4 Count Absolute CD8 Count Absolute CD19 Count Crossmatch 09/16/20 09/17/20 09/17/20 21:13 16:49 23:39 WBC RBC Hgb Hct MCH MCHC RDW Plt Count [place] % (Auto) Lymph # (Auto) Seg Neutrophils % Seg Neuts % (Manual) Lymphocytes % (Manual) Seg Neutrophils # Man Abs Lymphs (Manual) Lymphocytes # (Manual) ABG pH POC ABG pCO2 POC ABG pO2 ABG Hemoglobin ABG Oxyhemoglobin ABG Potassium ABG Chloride ABG Glucose Sodium Potassium Chloride Carbon Dioxide BUN Glucose POC Glucose 152 H 200 H 175 H Calcium Magnesium TIBC Alkaline Phosphatase Albumin Arterial Blood Glucose Arterial Blood Ionized Calcium Lymph Enumerat CD4/CD8 % CD3 Cells Absolute CD3 Count % CD4 Cells Absolute CD4 Count Absolute CD8 Count Absolute CD19 Count Crossmatch 09/18/20 09/18/20 09/18/20 07:46 11:31 16:36 WBC RBC Hgb Hct MCH MCHC RDW Plt Count [place] % (Auto) Lymph # (Auto) Seg Neutrophils % Seg Neuts % (Manual) Lymphocytes % (Manual) Seg Neutrophils # Man Abs Lymphs (Manual) Lymphocytes # (Manual) ABG pH POC ABG pCO2 POC ABG pO2 ABG Hemoglobin ABG Oxyhemoglobin ABG Potassium ABG Chloride ABG Glucose Sodium Potassium Chloride Carbon Dioxide BUN Glucose POC Glucose 162 H 135 H 459 H Calcium Magnesium TIBC Alkaline Phosphatase Albumin Arterial Blood Glucose Arterial Blood Ionized Calcium Lymph Enumerat CD4/CD8 % CD3 Cells Absolute CD3 Count % CD4 Cells Absolute CD4 Count Absolute CD8 Count Absolute CD19 Count Crossmatch 09/19/20 11:51 WBC RBC Hgb Hct MCH MCHC RDW Plt Count [place] % (Auto) Lymph # (Auto) Seg Neutrophils % Seg Neuts % (Manual) Lymphocytes % (Manual) Seg Neutrophils # Man Abs Lymphs (Manual) Lymphocytes # (Manual) ABG pH POC ABG pCO2 POC ABG pO2 ABG Hemoglobin ABG Oxyhemoglobin ABG Potassium ABG Chloride ABG Glucose Sodium Potassium Chloride Carbon Dioxide BUN Glucose POC Glucose 52 L Calcium Magnesium TIBC Alkaline Phosphatase Albumin Arterial Blood Glucose Arterial Blood Ionized Calcium Lymph Enumerat CD4/CD8 % CD3 Cells Absolute CD3 Count % CD4 Cells Absolute CD4 Count Absolute CD8 Count Absolute CD19 Count Crossmatch Allied health notes reviewed: nursing
[2020-09-19] MEDS: oxyCODONE /ACETAMINOPHEN 5-325MG TAB PO PRN (21:08)
[2020-09-19] MEDS: MIRTAZAPINE 15 MG TAB PO SCH (21:08)
[2020-09-19] MEDS: MONTELUKAST 10 MG TAB PO SCH (21:08)
[2020-09-19] MEDS: INSULIN LISPRO 100 UNIT/ML SUB-Q SCH (21:27)
[2020-09-20] MEDS: LEVALBUTEROL 0.63 MG/3 ML NEBU IH SCH ×3 (02:16→17:36)
[2020-09-20] MEDS: IPRATROPIUM 0.02% NEBU 2.5 ML IH SCH ×3 (02:17→17:36)
[2020-09-20] MEDS: HEPARIN 5,000 UNIT/1 ML VIAL SUB-Q SCH ×3 (05:24→21:30)
[2020-09-20] MEDS: predniSONE 10 MG TAB PO SCH ×2 (08:32→11:31)
[2020-09-20] MEDS: ASPIRIN EC 81 MG TAB PO SCH ×2 (08:32→11:30)
[2020-09-20] MEDS: FE FUMARATE/FA/MV, MIN COMB#15 CAP (HEMOCYTE PLUS) PO SCH ×2 (08:32→11:30)
[2020-09-20] MEDS: MULTIVITAMINS ,THERAPEUTIC TAB PO SCH ×2 (08:32→11:31)
[2020-09-20] MEDS: POLYETHYLENE GLYCOL 3350 17 GM POWDER PO SCH ×2 (08:32→11:30)
[2020-09-20] MEDS: carvediloL 6.25 MG TAB PO SCH ×3 (08:33→21:30)
[2020-09-20] MEDS: PANTOPRAZOLE 40 MG TAB PO SCH ×2 (08:33→11:31)
[2020-09-20] MEDS: INSULIN NPH/REGULAR 70/30 INJ SUB-Q SCH ×2 (08:33→17:16)
[2020-09-20] MEDS: ALPRAZolam 0.25 MG TAB PO PRN (08:34)
[2020-09-20] MEDS: CALCIUM CARBONATE 500 MG TAB CHEW PO SCH ×3 (08:35→21:30)
[2020-09-20] MEDS: ARFORMOTEROL 15 MCG/2 ML NEBU IH SCH ×2 (09:16→21:35)
[2020-09-20] MEDS: BUDESONIDE 0.5 MG/2 ML NEBU IH SCH ×2 (09:17→21:35)
--- NOTE | 2020-09-20 13:05 | Progress Note ---
Assessment and Plan Assessment and plan: --Severe anemia; no external evidence of bleeding; Type and cross transfuse 3 units of PRBC, Check stool for occult blood closely monitor H&H and transfuse additional PRBC As needed Consult GI if needed --Severe hypocalcemia; replenish with calcium gluconate Oral calcium carbonate, monitor levels --Hypokalemia/hypomagnesemia; Replenished with KCl and magnesium sulfate Monitor electrolytes --history of HIV infection for many years; Asymptomatic for many years, not on antiretrovirals Patient follow-up private ID/health department as needed --SIRS; without organ dysfunction, present on admission --General debility; Physical therapy, Occupational Therapy, rehabilitation PT OT recommended SNF placement --Paroxysmal atrial fibrillation; Patient is in sinus rhythm today with heart rate in 70s No A. fib last 24 hours Cardiology following Continue beta-blockers, not a candidate for anticoagulation Due to severe anemia requiring blood transfusion --Acute exacerbation of COPD ; Patient is a current smoker Continue nasal cannula oxygen titrate O2 sats to more than 90% --Acute hypoxic respiratory failure ; requiring BiPAP Continue oxygen via nasal cannula 4 L today Titrate O2 sats more than 90%, BiPAP as needed --Leukocytosis- resolved --Hypertension; moderate control Continue current antihypertensives, as needed medications --Normocytic anemia Hemoglobin is down to 8.0 > 7.6 this morning Closely monitor H&H transfuse as needed --Hyperglycemia -likely secondary to steroids HD A1c 5.8, Accu-Chek sliding scale coverage Long-acting insulin if needed --Ongoing tobacco abuse Patient counseled on tobacco cessation Nicotine patch as needed --Mild to moderate malnutrition/hypoalbuminemia Nutrition supplements and supportive care --DVT prophylaxis; Heparin subcu/SCDs Physical therapy/Occupational Therapy evaluation and treatment DC planning per case management OT recommended subacute rehab /SNF placement. Awaiting placement, patient is medically stable for discharge Peer to peer with insurance physician, 09/14/2020, did not approve SNF placement no indication for SNF placement per [facility] insurance physician. Awaiting placement DC planning per case management Brief history and hospital course; 64-year-old male with past medical history of COPD, hypertension asthma PE was admitted through emergency room with shortness of breath of 1 day duration morning. Patient was noted to be hypoxemic requiring supplemental oxygen, and work-up is consistent with acute exacerbation of COPD and acute on chronic hypoxic respiratory failure. Requiring BiPAP and supplemental oxygen. Patient continues to be hypoxemic requiring supplemental oxygen. Patient symptoms slowly but gradually improved, however patient is debilitated with her underlying medical condition of chronic hypoxia, HIV disease Electrolyte imbalances, chronic alcohol use. Patient was evaluated by PT OT, strongly recommended SNF placement, however the insurance did not approve Saying that patient does not have the criteria for SNF placement Recommended long-term care placement instead 08/29; patient requiring BiPAP, severely short of breath, pulmonary following; Wean as tolerated ; requiring intermittent BiPAP especially at night This morning patient is on 4 L of nasal cannula oxygen Patient already has home oxygen at 3 L Pulmonary following 08/31/2020; patient continues to be in shortness of breath Unable to keep his oxygen, confused at times BiPAP as needed, pulmonary following Recommend placement SNF, Check for mccracken PCR PT OT evaluation 09/01/2020; on 4 L of nasal oxygen Awaiting placement Resumed service; 09/05/2020; I checked with monitor room, patient is in sinus heart rate in 70s No A. fib last 24 hours Awaiting subacute rehab placement 09/06/2020; hypokalemia, hypocalcemia Replenished with KCl, calcium gluconate and calcium carbonate Follow electrolytes 09/07/2020; follow today's labs Awaiting placement 09/08/2020; patient is clinically stable for discharge Awaiting subacute rehab placement 09/09/2020; awaiting placement 09/10/2020; no new complaints, stable for discharge Awaiting placement 09/11/2020; pulmonary cleared for discharge Pending placement DC planning per case management 09/12/2020; Pending placement SNF needs updated PT OT evaluations 09/13/2020; patient had PT OT updates Recommend SNF placement 09/14/2020; I had P2P with Dr. López[Nancie] at now insurance physician Discussed in detail patient's condition treatment and discharge planning The physician said patient does not fit the criteria for SNF, did not approve SNF placement However recommended to consider long-term care. I informed case management Ms. Ha the above conversation DC planning per case management Patient is medically stable for discharge 09/15/2020; patient has severe anemia today transfuse 3 units of PRBC, Stool for occult blood, GI consult, hypomagnesemia hypocalcemia and hypokalemia Replenish per protocol, closely monitor I resumed service; 09/19/2020; patient awaiting placement No new complaints 09/20/2020; patient awaiting placement Stable for discharge History Interval history: I have seen and examined the patient at the bedside Patient's chart and medications reviewed Patient has no new complaints Awaiting placement Vital signs noted Hospitalist Physical - Constitutional Vitals: Temp Pulse Resp BP Pulse Ox 98.3 F 77 18 105/64 86 09/20/20 11:48 09/20/20 11:48 09/20/20 11:48 09/20/20 11:48 09/20/20 11:48 General appearance: Present: no acute distress, well-nourished - EENT Eyes: Present: PERRL, EOM intact - Neck Neck: Present: supple, normal ROM - Respiratory Respiratory effort: normal Respiratory: bilateral: diminished, negative: rales, rhonchi, wheezing - Cardiovascular Rhythm: regular Heart Sounds: Present: S1 & S2 - Extremities Extremities: no ischemia, No edema - Abdominal General gastrointestinal: soft, non-tender, non-distended, normal bowel sounds - Integumentary Integumentary: Present: clear, warm - Psychiatric Psychiatric: appropriate mood/affect, cooperative - Neurologic Neurologic: CNII-XII intact, moves all extremities HEART Score - HEART Score Troponin: Troponin T < 0.010 ng/mL (0.00-0.029) 09/04/20 05:53 Results - Labs CBC & Chem 7: 09/16/20 04:36 09/15/20 04:18 Labs: Laboratory Last Values WBC 4.9 K/mm3 (4.5-11.0) 09/16/20 04:36 RBC 2.79 M/mm3 (3.65-5.03) L 09/16/20 04:36 Hgb 8.8 gm/dl (11.8-15.2) L 09/16/20 04:36 Hct 26.0 % (35.5-45.6) L D 09/16/20 04:36 MCV 93 fl (84-94) 09/16/20 04:36 MCH 32 pg (28-32) 09/16/20 04:36 MCHC 34 % (32-34) 09/16/20 04:36 RDW 17.0 % (13.2-15.2) H 09/16/20 04:36 Plt Count 151 K/mm3 (140-440) 09/16/20 04:36 Lymph % (Auto) 16.6 % (13.4-35.0) 09/16/20 04:36 [place] % (Auto) 8.9 % (0.0-7.3) H 09/16/20 04:36 Eos % (Auto) 0.4 % (0.0-4.3) 09/16/20 04:36 Baso % (Auto) 0.6 % (0.0-1.8) 09/16/20 04:36 Lymph # (Auto) 0.8 K/mm3 (1.2-5.4) L 09/16/20 04:36 [place] # (Auto) 0.4 K/mm3 (0.0-0.8) 09/16/20 04:36 Eos # (Auto) 0.0 K/mm3 (0.0-0.4) 09/16/20 04:36 Baso # (Auto) 0.0 K/mm3 (0.0-0.1) 09/16/20 04:36 Add Manual Diff Complete 08/25/20 07:21 Total Counted 100 08/25/20 07:21 Seg Neutrophils % 73.5 % (40.0-70.0) H 09/16/20 04:36 Seg Neuts % (Manual) 96.0 % (40.0-70.0) H 08/25/20 07:21 Lymphocytes % (Manual) 3.0 % (13.4-35.0) L 08/25/20 07:21 Monocytes % (Manual) 2.0 % (0.0-7.3) 08/24/20 19:29 Myelocytes % 1.0 % 08/25/20 07:21 Nucleated RBC % Not Reportable 08/25/20 07:21 Seg Neutrophils # 3.6 K/mm3 (1.8-7.7) 09/16/20 04:36 Seg Neutrophils # Man 4.8 K/mm3 (1.8-7.7) 08/25/20 07:21 Band Neutrophils # 0.0 K/mm3 08/25/20 07:21 Abs Lymphs (Manual) 98 cells/uL (850-3900) L 09/04/20 05:53 Lymphocytes # (Manual) 0.2 K/mm3 (1.2-5.4) L 08/25/20 07:21 Abs React Lymphs (Man) 0.0 K/mm3 08/25/20 07:21 Monocytes # (Manual) 0.0 K/mm3 (0.0-0.8) 08/25/20 07:21 Eosinophils # (Manual) 0.0 K/mm3 (0.0-0.4) 08/25/20 07:21 Basophils # (Manual) 0.0 K/mm3 (0.0-0.1) 08/25/20 07:21 Metamyelocytes # 0.0 K/mm3 08/25/20 07:21 Myelocytes # 0.1 K/mm3 08/25/20 07:21 Promyelocytes # 0.0 K/mm3 08/25/20 07:21 Blast Cells # 0.0 K/mm3 08/25/20 07:21 WBC Morphology Not Reportable 08/25/20 07:21 Hypersegmented Neuts Not Reportable 08/25/20 07:21 Hyposegmented Neuts Not Reportable 08/25/20 07:21 Hypogranular Neuts Not Reportable 08/25/20 07:21 Smudge Cells Not Reportable 08/25/20 07:21 Toxic Granulation Not Reportable 08/25/20 07:21 Toxic Vacuolation Not Reportable 08/25/20 07:21 Dohle Bodies Not Reportable 08/25/20 07:21 Pelger-Huet Anomaly Not Reportable 08/25/20 07:21 Ruma Rods Not Reportable 08/25/20 07:21 Platelet Estimate Consistent w auto 08/25/20 07:21 Clumped Platelets Not Reportable 08/25/20 07:21 Plt Clumps, EDTA Not Reportable 08/25/20 07:21 Large Platelets Not Reportable 08/25/20 07:21 Giant Platelets Not Reportable 08/25/20 07:21 Platelet Satelliting Not Reportable 08/25/20 07:21 Plt Morphology Comment Not Reportable 08/25/20 07:21 RBC Morphology Not Reportable 08/25/20 07:21 Dimorphic RBCs Not Reportable 08/25/20 07:21 Polychromasia Not Reportable 08/25/20 07:21 Hypochromasia 1+ 07/02/21 07:21 Poikilocytosis 1+ 08/25/20 07:21 Anisocytosis 1+ 08/25/20 07:21 Microcytosis Not Reportable 08/25/20 07:21 Macrocytosis Not Reportable 08/25/20 07:21 Spherocytes Not Reportable 08/25/20 07:21 Pappenheimer Bodies Not Reportable 08/25/20 07:21 Sickle Cells Not Reportable 08/25/20 07:21 Target Cells Not Reportable 08/25/20 07:21 Tear Drop Cells Not Reportable 08/25/20 07:21 Ovalocytes 1+ 08/25/20 07:21 Helmet Cells Not Reportable 08/25/20 07:21 [place] Bodies Not Reportable 08/25/20 07:21 [place] Rings Not Reportable 08/25/20 07:21 [place] Cells Not Reportable 08/25/20 07:21 Bite Cells Not Reportable 08/25/20 07:21 Crenated Cell Not Reportable 08/25/20 07:21 Elliptocytes 2+ 08/25/20 07:21 Acanthocytes (Spur) 1+ 08/25/20 07:21 Rouleaux Not Reportable 08/25/20 07:21 Hemoglobin C Crystals Not Reportable 08/25/20 07:21 Schistocytes Not Reportable 08/25/20 07:21 Malaria parasites Not Reportable 08/25/20 07:21 Ric Bodies Not Reportable 08/25/20 07:21 Hem Pathologist Commnt No 08/25/20 07:21 ABG pH 7.471 (7.320-7.450) H 09/14/20 10:27 POC ABG pCO2 62.3 mmHg (32.0-48.0) H 09/14/20 10:27 POC ABG pO2 96.7 mmHg (83-108) 09/14/20 10:27 POC ABG HCO3 44.4 09/14/20 10:27 ABG O2 Saturation 97.3 (0-100) 09/14/20 10:27 POC ABG Base Excess 18.6 09/14/20 10:27 ABG Hemoglobin 8.2 (12.0-17.5) L 09/14/20 10:27 ABG Oxyhemoglobin 96.1 (94-98) 09/14/20 10:27 ABG Methemoglobin 0.3 (0.0-1.5) 09/14/20 10:27 ABG Sodium 141.5 mmol/L (136.0-145.0) 09/14/20 10:27 ABG Potassium 3.1 mmol/L (3.40-4.50) L 09/14/20 10:27 ABG Chloride 94.0 mmol/L (98-107) L 09/14/20 10:27 ABG Glucose 189 mg/dL (65-95) H 09/14/20 10:27 Carboxyhemoglobin 0.9 (0.5-1.5) 09/14/20 10:27 FiO2 % 32.0 09/14/20 10:27 Sodium 146 mmol/L (137-145) H 09/15/20 04:18 Potassium 3.5 mmol/L (3.6-5.0) L 09/15/20 04:18 Chloride 97.7 mmol/L (98-107) L 09/15/20 04:18 Carbon Dioxide 42 mmol/L (22-30) H* 09/15/20 04:18 Anion Gap 10 mmol/L 09/15/20 04:18 BUN 14 mg/dL (9-20) 09/15/20 04:18 Creatinine 0.9 mg/dL (0.8-1.3) 09/15/20 04:18 Estimated GFR > 60 ml/min 09/15/20 04:18 BUN/Creatinine Ratio 16 % 09/15/20 04:18 Glucose 102 mg/dL (75-100) H 09/15/20 04:18 POC Glucose 127 mg/dL (70-105) H 09/20/20 11:55 Hemoglobin A1c 5.8 % (4-6) 08/25/20 07:27 Calcium 5.5 mg/dL (8.4-10.2) L* 09/15/20 04:18 Magnesium 1.80 mg/dL (1.7-2.3) 09/16/20 04:36 Iron 58 ug/dL (49-181) 09/04/20 05:53 TIBC 214 mcg/dL (250-450) L 09/04/20 05:53 Total Bilirubin 0.40 mg/dL (0.1-1.2) 08/24/20 19:29 AST 21 units/L (5-40) 08/24/20 19:29 ALT 36 units/L (7-56) 08/24/20 19:29 Alkaline Phosphatase 154 units/L (35-129) H 08/24/20 19:29 Troponin T < 0.010 ng/mL (0.00-0.029) 09/04/20 05:53 Total Protein 6.5 g/dL (6.3-8.2) 08/24/20 19:29 Albumin 3.4 g/dL (3.9-5) L 08/24/20 19:29 Albumin/Globulin Ratio 1.1 % 08/24/20 19:29 Arterial Blood Glucose 189 mg/dL (65-95) H 09/14/20 10:27 Arterial Blood Ionized Calcium 3.0 mg/dL (4.6-5.3) L 09/14/20 10:27 Lymph Enumerat CD4/CD8 0.68 (0.86-5.00) L 09/04/20 05:53 % CD3 Cells 51 % (57-85) L 09/04/20 05:53 Absolute CD3 Count 50 cells/uL (840-3060) L 09/04/20 05:53 % CD4 Cells 20 % (30-61) L 09/04/20 05:53 Absolute CD4 Count 20 cells/uL (490-1740) L 09/04/20 05:53 % CD8 Cells 30 % (12-42) 09/04/20 05:53 Absolute CD8 Count 29 cells/uL (180-1170) L 09/04/20 05:53 % CD19 Cells 17 % (6-29) 09/04/20 05:53 Absolute CD19 Count 17 cells/uL (110-660) L 09/04/20 05:53 Coronavirus (PCR) Negative (Negative) 09/01/20 Unknown Blood Type A POSITIVE 09/15/20 10:43 Antibody Screen Negative 09/15/20 10:43 Crossmatch See Detail 09/15/20 10:43 [place]/IV: Voiding Method Urinal Active Medications - Current Medications Current Medications: Generic Name Dose Route Start Last Admin Trade Name Freq PRN Reason Stop Dose Admin Acetaminophen 650 mg 08/24/20 22:12 09/13/20 20:35 Acetaminophen 325 Mg Tab PO 650 mg Q4H PRN Administration Pain MILD(1-3)/Fever >100.5/KOENIG Alprazolam 0.25 mg 08/30/20 11:30 09/20/20 08:34 Alprazolam 0.25 Mg Tab PO 0.25 mg Q8H PRN Administration Anxiety Arformoterol Tartrate 15 mcg 08/25/20 20:00 09/20/20 09:16 Arformoterol 15 Mcg/2 Ml Nebu IH 15 mcg Q12HRT NADIA Administration Aspirin 81 mg 08/25/20 10:00 09/20/20 11:30 Aspirin Ec 81 Mg Tab PO Not Given QDAY NADIA Atorvastatin Calcium 40 mg 08/25/20 22:00 09/19/20 21:08 Atorvastatin 40 Mg Tab PO 40 mg QHS NADIA Administration Budesonide 0.5 mg 08/25/20 08:00 09/20/20 09:17 Budesonide 0.5 Mg/2 Ml Nebu IH 0.5 mg Q12HRT NADIA Administration Calcium Carbonate/Glycine 500 mg 09/06/20 09:00 09/20/20 08:35 Calcium Carbonate 500 Mg Tab Chew PO 500 mg TID NADIA Administration Carvedilol 6.25 mg 09/02/20 12:00 09/20/20 11:30 Carvedilol 6.25 Mg Tab PO Not Given BID NADIA Guaifenesin 400 mg 08/29/20 13:00 08/30/20 05:33 Guaifenesin 200 Mg Tab PO 400 mg Q4HR PRN Administration Cough Heparin Sodium (Porcine) 5,000 unit 08/25/20 06:00 09/20/20 05:24 Heparin 5,000 Unit/1 Ml Vial SUB-Q 5,000 unit Q8HR NADIA Administration Hydralazine HCl 10 mg 08/24/20 22:14 08/31/20 13:40 Hydralazine 20 Mg/1 Ml Inj IV 10 mg Q6H PRN Administration SBP>/=160; DBP >/=100 Insulin Human Isoph/Insulin Regular 5 unit 09/10/20 17:00 09/20/20 08:33 Insulin Nph/Regular 70/30 Inj SUB-Q Not Given BIDDIAB [facility] Insulin Human Lispro 0 unit 08/25/20 22:00 09/19/20 21:27 Insulin Lispro 100 Unit/Ml SUB-Q Not Given QHS [facility] Protocol Ipratropium [place] 0.5 mg 09/02/20 16:00 09/20/20 09:17 Ipratropium 0.02% Nebu 2.5 Ml IH 0.5 mg Q8HRT NADIA Administration Levalbuterol HCl 0.63 mg 09/01/20 18:00 09/20/20 09:17 Levalbuterol 0.63 Mg/3 Ml Nebu IH 0.63 mg Q8HRT NADIA Administration Mirtazapine 7.5 mg 08/25/20 22:00 09/19/20 21:08 Mirtazapine 15 Mg Tab PO 7.5 mg QHS [facility] Administration Montelukast Sodium 10 mg 08/25/20 22:00 09/19/20 21:08 Montelukast 10 Mg Tab PO 10 mg QHS [facility] Administration Multivitamins 1 each 09/04/20 10:00 09/20/20 11:31 Multivitamins ,Therapeutic Tab PO Not Given QDAY [facility] Multivitamins/Iron 1 each 09/04/20 10:00 09/20/20 11:30 Fe Fumarate/Fa/Mv, Min Comb#15 Cap (Hemocyte Plus) PO Not Given QDAY [facility] Ondansetron HCl 4 mg 08/24/20 22:12 Ondansetron 4 Mg/2 Ml Inj IV Q8H PRN Nausea And Vomiting Oxycodone/Acetaminophen 1 tab 08/24/20 22:23 09/19/20 21:08 Oxycodone /Acetaminophen 5-325mg Tab PO 1 tab BID PRN Administration Pain , Severe (7-10) Pantoprazole Sodium 40 mg 08/25/20 10:00 09/20/20 11:31 Pantoprazole 40 Mg Tab PO Not Given QDAY [facility] Polyethylene Glycol 17 gm 08/28/20 10:00 09/20/20 11:30 Polyethylene Glycol 3350 17 Gm Powder PO Not Given QDAY [facility] Prednisone 10 mg 09/18/20 10:00 09/20/20 11:31 Prednisone 10 Mg Tab PO Not Given QDAY [facility] Sodium Chloride 10 ml 08/25/20 10:00 09/20/20 11:31 Sodium Chloride 0.9% 10 Ml Flush Syringe IV Not Given BID [facility] Sodium Chloride 10 ml 08/24/20 22:12 Sodium Chloride 0.9% 10 Ml Flush Syringe IV PRN PRN LINE FLUSH Tramadol HCl 50 mg 08/24/20 22:23 09/09/20 01:47 Tramadol 50 Mg Tab PO 50 mg Q6HR PRN Administration Pain, Moderate (4-6) Nutrition/Malnutrition Assess - Dietary Evaluation Nutrition/Malnutrition Findings: Nutrition Notes Start: 08/25/20 08:25 Freq: Status: Active Protocol: Document 09/20/20 12:47 (Rec: 09/20/20 12:51 [email or web address]) Nutrition Notes Initial or Follow up Brief Note Current Diagnosis COPD,Hypertension,Respiratory Failure Other Pertinent Diagnosis HIV Current Diet Cardiac/Consistent CHO + Ensure Clear BID Labs/Tests reviewed Pertinent Medications reviewed Height 5 ft 5 in Weight 50.4 kg [place] Body Weight (kg) 61.81 BMI 18.4 Weight change and time frame wt fluctuations Weight Status Underweight Subjective/Other Information Pt consuming 50% of meals and 100% of one ONS daily. Percent of energy/protein needs met: 70%/82% Burn Absent Trauma Absent Current % PO Fair (50-74%) Minimum of two criteria Yes Energy Intake (non-severe) <75% Estimated Energy Requirement >7 days Interpretation of Weight Loss (severe) >5% in 1 month #2 Nutrition Diagnosis Malnutrition Diagnosis Progress(for reassessment Continues documentation) #1 Nutrition Diagnosis Inadequate oral intake Diagnosis Progress(for reassessment Improved documentation) Is patient on ventilator? No Is Patient Ambulatory and/or Out of Bed No REE-([facility]-confined to bed) 1464.684 Kcal/Kg value to use for calculation 35 Approximate Energy Requirements Using 1764 kcal/Kg Calculation Used for Recommendations Kcal/kg Additional Notes Pro needs 1.2-1.5g/k-78g/ day Fluid needs 1ml/kcal Nutrition Intervention Change Diet Order: Continue current diet order Add Supplement/Snack (indicate name/kcal Ensure Clear BID /protein ) Provides kCal: 480 Provides Protein (gm) 16 Goal #1 PO intake of meals plus ONS to meet at least 75% energy and pro needs Goal #2 Wt maintenance and/or gain Follow-Up By: 09/22/20 Additional Comments F/U: intakes (meals, ONS), wt
--- NOTE | 2020-09-20 13:33 | Progress Note ---
Assessment and Plan 64-year-old male with past medical history of COPD, hypertension, Diabetes,asthma PE was brought to the emergency room because of shortness of breath since this morning. Patient had an IV started by EMS and was given IV mag, Solu-Medrol and an albuterol treatment. EMS states that the patient states his symptoms are worsening. Patient states 5 breathing treatment just prior to arrival and did not work. Shortness of breath better with rest and worse with exertion. Patient states he has a long history of COPD and asthma. Patient states he had multiple visits to the ER for this. Patient denies chest pain. Patient denies fever and chills. Patient complains of dry cough Patient has history of smoking 1 pack x 40 years. Says stopped smoking 2 months ago. History of using Cocaine. Denies alcohol abuse. Says worked in [employer] [place] before he disabled. Patient and has two children.No Known drug allergies Patient Awake. Resting on on 2 litres O2. O2 saturation recorded is 92%. Patient breathing better. No acute respiratory distress.Patient sitting up by the side of the bed. Patient afebrile and has no leukocytosis. Chest xray done 08/24/20 reported There is hyperinflation the lungs. No focal infiltrate is seen. Calcified granulomata are noted in the upper lung zones bilaterally. No pneumothorax. Chest xray 09/14/20 reported Opacity within the left lower lung which is concerning for infectious process in the appropriate clinical setting Patient is on Brovanna/Budesonide aerosol treatments, S/C Heparin and Protonix, and prednisone. - Patient Problems (1) Acute respiratory failure with hypoxia Current Visit: No Status: Acute Plan to address problem: O2 2 litres via nasal canula. Brovanna/Budesonide aerosol treatments. Albuterol/atrovent aerosol treatments as needed. S/C Heparin. Protonix, and prednisone. (2) COPD exacerbation Current Visit: No Status: Acute Plan to address problem: O2 2 litres via nasal canula. Brovanna/Budesonide aerosol treatments. Albuterol/atrovent aerosol treatments as needed. S/C Heparine. Protonix, and prednisone. PFTs as out patient. (3) ANGELIC (acute kidney injury) Current Visit: No Status: Acute Plan to address problem: Management as per nephrology. (4) GERD (gastroesophageal reflux disease) Current Visit: No Status: Acute Plan to address problem: Patient is on Protonix. (5) HIV (human immunodeficiency virus infection) Current Visit: No Status: Acute Qualifiers: Plan to address problem: Management as per infectious disease consultants. (6) Hypertension Current Visit: No Status: Acute Plan to address problem: Management as per primary care. (7) Cocaine use Current Visit: No Status: Chronic Plan to address problem: Counseled do not use any illegal drugs. (8) Tobacco use Current Visit: No Status: Chronic Plan to address problem: Counseled continue stop smoking. Subjective Date of service: 09/20/20 Principal diagnosis: Ac hypoxemic resp failure; AE-COPD; ANGELIC; HIV +ve; HTN; Cocaine Use Interval history: 64-year-old male with past medical history of COPD, hypertension, Diabetes,asthma PE was brought to the emergency room because of shortness of breath since this morning. Patient had an IV started by EMS and was given IV mag, Solu-Medrol and an albuterol treatment. EMS states that the patient states his symptoms are worsening. Patient states 5 breathing treatment just prior to arrival and did not work. Shortness of breath better with rest and wor se with exertion. Patient states he has a long history of COPD and asthma. Patient states he had multiple visits to the ER for this. Patient denies chest pain. Patient denies fever and chills. Patient complains of dry cough Patient has history of smoking 1 pack x 40 years. Says stopped smoking 2 months ago. History of using Cocaine. Denies alcohol abuse. 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 Patient and has two children.No Known drug allergies Patient Awake. Resting on on 2 litres O2. O2 saturation recorded is 92%. Patient breathing better. No acute respiratory distress.Patient sitting up by the side of the bed. Patient afebrile and has no leukocytosis. Chest xray done 08/24/20 reported There is hyperinflation the lungs. No focal infiltrate is seen. Calcified granulomata are noted in the upper lung zones bilaterally. No pneumothorax. Chest xray 09/14/20 reported Opacity within the left lower lung which is concerning for infectious process in the appropriate clinical setting Patient is on Brovanna/Budesonide aerosol treatments, S/C Heparin and Protonix, and prednisone. Objective Vital Signs - 12hr 09/20/20 09/20/2009/20/21 02:17 03:30 07:26 Temperature 98.2 F 97.9 F Pulse Rate 77 76 Pulse Rate [ 88 Bilateral] Respiratory 17 18 Rate Respiratory 20 Rate [Bilateral ] Blood Pressure 109/68 127/76 O2 Sat by Pulse 91 91 Oximetry 09/20/20 09/20/20 09/20/20 08:00 08:33 09:21 Temperature Pulse Rate 76 Pulse Rate [ 82 Bilateral] Respiratory Rate Respiratory 16 Rate [Bilateral ] Blood Pressure 127/76 O2 Sat by Pulse 97 Oximetry 09/20/20 09/20/20 10:31 11:48 Temperature 98.3 F Pulse Rate 76 77 Pulse Rate [ Bilateral] Respiratory 18 Rate Respiratory Rate [Bilateral ] Blood Pressure 105/64 O2 Sat by Pulse 92 86 Oximetry Constitutional: no acute distress, alert Eyes: non-icteric ENT: oropharynx moist Neck: supple, no JVD Effort: mildly labored Ascultation: Bilateral: diminished breath sounds, wheezes (faint; end expiratory), rhonchi, other (Prolonged expiratory phase.) Percussion: Bilateral: not dull Cardiovascular: regular rate and rhythm Gastrointestinal: normoactive bowel sounds, soft, non-tender, non-distended Integumentary: normal Extremities: no cyanosis, no edema, pulses normal, no ischemia or petechiae Neurologic: normal mental status, non-focal exam, pupils equal and round, motor strength normal and Psychiatric: mood appropriate, affect normal CBC and BMP: 09/16/20 04:36 09/15/20 04:18 ABG, PT/INR, D-dimer: ABG ABG pH 7.471 (7.320-7.450) H 09/14/20 10:27 POC ABG pCO2 62.3 mmHg (32.0-48.0) H 09/14/20 10:27 POC ABG pO2 96.7 mmHg (83-108) 09/14/20 10:27 POC ABG HCO3 44.4 09/14/20 10:27 ABG O2 Saturation 97.3 (0-100) 09/14/20 10:27 Abnormal lab findings: Abnormal Labs 08/24/20 08/24/20 08/25/20 19:29 19:29 07:00 WBC RBC 3.36 L Hgb 9.7 L Hct 28.5 L MCH MCHC RDW 20.6 H Plt Count [place] % (Auto) Lymph # (Auto) Seg Neutrophils % Seg Neuts % (Manual) 97.0 H Lymphocytes % (Manual) 1.0 L Seg Neutrophils # Man 10.2 H Abs Lymphs (Manual) Lymphocytes # (Manual) 0.1 L ABG pH POC ABG pCO2 POC ABG pO2 ABG Hemoglobin ABG Oxyhemoglobin ABG Potassium ABG Chloride ABG Glucose Sodium Potassium 3.3 L Chloride Carbon Dioxide BUN Glucose 121 H POC Glucose 211 H Calcium 7.6 L Magnesium TIBC Alkaline Phosphatase 154 H Albumin 3.4 L Arterial Blood Glucose Arterial Blood Ionized Calcium Lymph Enumerat CD4/CD8 % CD3 Cells Absolute CD3 Count % CD4 Cells Absolute CD4 Count Absolute CD8 Count Absolute CD19 Count Crossmatch 08/25/20 08/25/20 08/25/20 07:21 07:21 12:06 WBC RBC 3.13 L Hgb 8.9 L Hct 26.5 L MCH MCHC RDW 20.6 H Plt Count [place] % (Auto) Lymph # (Auto) Seg Neutrophils % Seg Neuts % (Manual) 96.0 H Lymphocytes % (Manual) 3.0 L Seg Neutrophils # Man Abs Lymphs (Manual) Lymphocytes # (Manual) 0.2 L ABG pH POC ABG pCO2 POC ABG pO2 ABG Hemoglobin ABG Oxyhemoglobin ABG Potassium ABG Chloride ABG Glucose Sodium Potassium Chloride Carbon Dioxide 31 H BUN Glucose 208 H POC Glucose 162 H Calcium 7.4 L Magnesium TIBC Alkaline Phosphatase Albumin Arterial Blood Glucose Arterial Blood Ionized Calcium Lymph Enumerat CD4/CD8 % CD3 Cells Absolute CD3 Count % CD4 Cells Absolute CD4 Count Absolute CD8 Count Absolute CD19 Count Crossmatch 08/25/20 08/25/20 08/26/20 17:01 21:52 05:09 WBC 14.9 H RBC 3.11 L Hgb 8.9 L Hct 26.7 L MCH MCHC RDW 20.6 H Plt Count [place] % (Auto) Lymph # (Auto) Seg Neutrophils % Seg Neuts % (Manual) Lymphocytes % (Manual) Seg Neutrophils # Man Abs Lymphs (Manual) Lymphocytes # (Manual) ABG pH POC ABG pCO2 POC ABG pO2 ABG Hemoglobin ABG Oxyhemoglobin ABG Potassium ABG Chloride ABG Glucose Sodium Potassium Chloride Carbon Dioxide BUN Glucose POC Glucose 158 H 175 H Calcium Magnesium TIBC Alkaline Phosphatase Albumin Arterial Blood Glucose Arterial Blood Ionized Calcium Lymph Enumerat CD4/CD8 % CD3 Cells Absolute CD3 Count % CD4 Cells Absolute CD4 Count Absolute CD8 Count Absolute CD19 Count Crossmatch 08/26/20 08/26/20 08/26/20 05:09 07:21 11:21 WBC RBC Hgb Hct MCH MCHC RDW Plt Count [place] % (Auto) Lymph # (Auto) Seg Neutrophils % Seg Neuts % (Manual) Lymphocytes % (Manual) Seg Neutrophils # Man Abs Lymphs (Manual) Lymphocytes # (Manual) ABG pH POC ABG pCO2 POC ABG pO2 ABG Hemoglobin ABG Oxyhemoglobin ABG Potassium ABG Chloride ABG Glucose Sodium Potassium Chloride Carbon Dioxide 31 H BUN 21 H Glucose 183 H POC Glucose 149 H 145 H Calcium 7.0 L Magnesium TIBC Alkaline Phosphatase Albumin Arterial Blood Glucose Arterial Blood Ionized Calcium Lymph Enumerat CD4/CD8 % CD3 Cells Absolute CD3 Count % CD4 Cells Absolute CD4 Count Absolute CD8 Count Absolute CD19 Count Crossmatch 08/26/20 08/26/20 08/27/20 16:49 21:19 04:41 WBC 11.5 H RBC 2.93 L Hgb 8.0 L Hct 25.2 L MCH 27 L MCHC RDW 21.0 H Plt Count [place] % (Auto) Lymph # (Auto) Seg Neutrophils % Seg Neuts % (Manual) Lymphocytes % (Manual) Seg Neutrophils # Man Abs Lymphs (Manual) Lymphocytes # (Manual) ABG pH POC ABG pCO2 POC ABG pO2 ABG Hemoglobin ABG Oxyhemoglobin ABG Potassium ABG Chloride ABG Glucose Sodium Potassium Chloride Carbon Dioxide BUN Glucose POC Glucose 177 H 144 H Calcium Magnesium TIBC Alkaline Phosphatase Albumin Arterial Blood Glucose Arterial Blood Ionized Calcium Lymph Enumerat CD4/CD8 % CD3 Cells Absolute CD3 Count % CD4 Cells Absolute CD4 Count Absolute CD8 Count Absolute CD19 Count Crossmatch 08/27/20 08/27/20 08/27/20 04:41 07:25 07:30 WBC RBC Hgb Hct MCH MCHC RDW Plt Count [place] % (Auto) Lymph # (Auto) Seg Neutrophils % Seg Neuts % (Manual) Lymphocytes % (Manual) Seg Neutrophils # Man Abs Lymphs (Manual) Lymphocytes # (Manual) ABG pH POC ABG pCO2 POC ABG pO2 ABG Hemoglobin ABG Oxyhemoglobin ABG Potassium ABG Chloride ABG Glucose Sodium Potassium Chloride Carbon Dioxide 35 H BUN 24 H Glucose 173 H POC Glucose 153 H 143 H Calcium 7.3 L Magnesium TIBC Alkaline Phosphatase Albumin Arterial Blood Glucose Arterial Blood Ionized Calcium Lymph Enumerat CD4/CD8 % CD3 Cells Absolute CD3 Count % CD4 Cells Absolute CD4 Count Absolute CD8 Count Absolute CD19 Count Crossmatch 08/27/20 08/27/20 08/27/20 11:27 15:49 21:17 WBC RBC Hgb Hct MCH MCHC RDW Plt Count [place] % (Auto) Lymph # (Auto) Seg Neutrophils % Seg Neuts % (Manual) Lymphocytes % (Manual) Seg Neutrophils # Man Abs Lymphs (Manual) Lymphocytes # (Manual) ABG pH POC ABG pCO2 POC ABG pO2 ABG Hemoglobin ABG Oxyhemoglobin ABG Potassium ABG Chloride ABG Glucose Sodium Potassium Chloride Carbon Dioxide BUN Glucose POC Glucose 236 H 184 H 144 H Calcium Magnesium TIBC Alkaline Phosphatase Albumin Arterial Blood Glucose Arterial Blood Ionized Calcium Lymph Enumerat CD4/CD8 % CD3 Cells Absolute CD3 Count % CD4 Cells Absolute CD4 Count Absolute CD8 Count Absolute CD19 Count Crossmatch 08/28/20 08/28/20 08/28/20 05:55 05:55 07:25 WBC RBC 2.58 L Hgb 7.6 L Hct 22.1 L MCH MCHC 35 H RDW 20.3 H Plt Count [place] % (Auto) Lymph # (Auto) Seg Neutrophils % Seg Neuts % (Manual) Lymphocytes % (Manual) Seg Neutrophils # Man Abs Lymphs (Manual) Lymphocytes # (Manual) ABG pH POC ABG pCO2 POC ABG pO2 ABG Hemoglobin ABG Oxyhemoglobin ABG Potassium ABG Chloride ABG Glucose Sodium Potassium 3.5 L Chloride Carbon Dioxide BUN 33 H Glucose 183 H POC Glucose 164 H Calcium 6.8 L Magnesium TIBC Alkaline Phosphatase Albumin Arterial Blood Glucose Arterial Blood Ionized Calcium Lymph Enumerat CD4/CD8 % CD3 Cells Absolute CD3 Count % CD4 Cells Absolute CD4 Count Absolute CD8 Count Absolute CD19 Count Crossmatch 08/28/20 08/28/20 08/28/20 11:00 12:06 15:28 WBC RBC Hgb Hct MCH MCHC RDW Plt Count [place] % (Auto) Lymph # (Auto) Seg Neutrophils % Seg Neuts % (Manual) Lymphocytes % (Manual) Seg Neutrophils # Man Abs Lymphs (Manual) Lymphocytes # (Manual) ABG pH 7.316 L POC ABG pCO2 68.0 H POC ABG pO2 75.4 L ABG Hemoglobin 8.3 L ABG Oxyhemoglobin 92.5 L ABG Potassium ABG Chloride ABG Glucose 302 H Sodium Potassium Chloride Carbon Dioxide BUN Glucose POC Glucose 233 H 146 H Calcium Magnesium TIBC Alkaline Phosphatase Albumin Arterial Blood Glucose 302 H Arterial Blood Ionized Calcium 3.8 L Lymph Enumerat CD4/CD8 % CD3 Cells Absolute CD3 Count % CD4 Cells Absolute CD4 Count Absolute CD8 Count Absolute CD19 Count Crossmatch 08/28/20 08/29/20 08/29/20 21:34 07:26 12:05 WBC RBC Hgb Hct MCH MCHC RDW Plt Count [place] % (Auto) Lymph # (Auto) Seg Neutrophils % Seg Neuts % (Manual) Lymphocytes % (Manual) Seg Neutrophils # Man Abs Lymphs (Manual) Lymphocytes # (Manual) ABG pH POC ABG pCO2 POC ABG pO2 ABG Hemoglobin ABG Oxyhemoglobin ABG Potassium ABG Chloride ABG Glucose Sodium Potassium Chloride Carbon Dioxide BUN Glucose POC Glucose 201 H 167 H 253 H Calcium Magnesium TIBC Alkaline Phosphatase Albumin Arterial Blood Glucose Arterial Blood Ionized Calcium Lymph Enumerat CD4/CD8 % CD3 Cells Absolute CD3 Count % CD4 Cells Absolute CD4 Count Absolute CD8 Count Absolute CD19 Count Crossmatch 08/29/20 08/29/20 08/30/20 16:32 21:56 07:53 WBC RBC Hgb Hct MCH MCHC RDW Plt Count [place] % (Auto) Lymph # (Auto) Seg Neutrophils % Seg Neuts % (Manual) Lymphocytes % (Manual) Seg Neutrophils # Man Abs Lymphs (Manual) Lymphocytes # (Manual) ABG pH POC ABG pCO2 POC ABG pO2 ABG Hemoglobin ABG Oxyhemoglobin ABG Potassium ABG Chloride ABG Glucose Sodium Potassium Chloride Carbon Dioxide BUN Glucose POC Glucose 128 H 220 H 286 H Calcium Magnesium TIBC Alkaline Phosphatase Albumin Arterial Blood Glucose Arterial Blood Ionized Calcium Lymph Enumerat CD4/CD8 % CD3 Cells Absolute CD3 Count % CD4 Cells Absolute CD4 Count Absolute CD8 Count Absolute CD19 Count Crossmatch 08/30/20 08/30/20 08/30/20 11:29 17:32 22:03 WBC RBC Hgb Hct MCH MCHC RDW Plt Count [place] % (Auto) Lymph # (Auto) Seg Neutrophils % Seg Neuts % (Manual) Lymphocytes % (Manual) Seg Neutrophils # Man Abs Lymphs (Manual) Lymphocytes # (Manual) ABG pH POC ABG pCO2 POC ABG pO2 ABG Hemoglobin ABG Oxyhemoglobin ABG Potassium ABG Chloride ABG Glucose Sodium Potassium Chloride Carbon Dioxide BUN Glucose POC Glucose 299 H 260 H 196 H Calcium Magnesium TIBC Alkaline Phosphatase Albumin Arterial Blood Glucose Arterial Blood Ionized Calcium Lymph Enumerat CD4/CD8 % CD3 Cells Absolute CD3 Count % CD4 Cells Absolute CD4 Count Absolute CD8 Count Absolute CD19 Count Crossmatch 08/31/20 08/31/20 08/31/20 07:41 11:26 16:19 WBC RBC Hgb Hct MCH MCHC RDW Plt Count [place] % (Auto) Lymph # (Auto) Seg Neutrophils % Seg Neuts % (Manual) Lymphocytes % (Manual) Seg Neutrophils # Man Abs Lymphs (Manual) Lymphocytes # (Manual) ABG pH POC ABG pCO2 POC ABG pO2 ABG Hemoglobin ABG Oxyhemoglobin ABG Potassium ABG Chloride ABG Glucose Sodium Potassium Chloride Carbon Dioxide BUN Glucose POC Glucose 166 H 269 H 265 H Calcium Magnesium TIBC Alkaline Phosphatase Albumin Arterial Blood Glucose Arterial Blood Ionized Calcium Lymph Enumerat CD4/CD8 % CD3 Cells Absolute CD3 Count % CD4 Cells Absolute CD4 Count Absolute CD8 Count Absolute CD19 Count Crossmatch 08/31/20 09/01/20 09/01/20 20:44 07:40 11:39 WBC RBC Hgb Hct MCH MCHC RDW Plt Count [place] % (Auto) Lymph # (Auto) Seg Neutrophils % Seg Neuts % (Manual) Lymphocytes % (Manual) Seg Neutrophils # Man Abs Lymphs (Manual) Lymphocytes # (Manual) ABG pH POC ABG pCO2 POC ABG pO2 ABG Hemoglobin ABG Oxyhemoglobin ABG Potassium ABG Chloride ABG Glucose Sodium Potassium Chloride Carbon Dioxide BUN Glucose POC Glucose 243 H 272 H 320 H Calcium Magnesium TIBC Alkaline Phosphatase Albumin Arterial Blood Glucose Arterial Blood Ionized Calcium Lymph Enumerat CD4/CD8 % CD3 Cells Absolute CD3 Count % CD4 Cells Absolute CD4 Count Absolute CD8 Count Absolute CD19 Count Crossmatch 09/01/20 09/01/20 09/02/20 16:16 21:59 08:32 WBC RBC Hgb Hct MCH MCHC RDW Plt Count [place] % (Auto) Lymph # (Auto) Seg Neutrophils % Seg Neuts % (Manual) Lymphocytes % (Manual) Seg Neutrophils # Man Abs Lymphs (Manual) Lymphocytes # (Manual) ABG pH POC ABG pCO2 POC ABG pO2 ABG Hemoglobin ABG Oxyhemoglobin ABG Potassium ABG Chloride ABG Glucose Sodium Potassium Chloride Carbon Dioxide BUN Glucose POC Glucose 319 H 157 H 195 H Calcium Magnesium TIBC Alkaline Phosphatase Albumin Arterial Blood Glucose Arterial Blood Ionized Calcium Lymph Enumerat CD4/CD8 % CD3 Cells Absolute CD3 Count % CD4 Cells Absolute CD4 Count Absolute CD8 Count Absolute CD19 Count Crossmatch 09/02/20 09/02/20 09/03/20 11:44 20:09 05:02 WBC RBC 2.25 L Hgb 6.5 L Hct 19.7 L* MCH MCHC RDW 21.3 H Plt Count [place] % (Auto) Lymph # (Auto) Seg Neutrophils % Seg Neuts % (Manual) Lymphocytes % (Manual) Seg Neutrophils # Man Abs Lymphs (Manual) Lymphocytes # (Manual) ABG pH POC ABG pCO2 POC ABG pO2 ABG Hemoglobin ABG Oxyhemoglobin ABG Potassium ABG Chloride ABG Glucose Sodium Potassium Chloride Carbon Dioxide BUN Glucose POC Glucose 167 H 214 H Calcium Magnesium TIBC Alkaline Phosphatase Albumin Arterial Blood Glucose Arterial Blood Ionized Calcium Lymph Enumerat CD4/CD8 % CD3 Cells Absolute CD3 Count % CD4 Cells Absolute CD4 Count Absolute CD8 Count Absolute CD19 Count Crossmatch 09/03/20 09/03/20 09/03/20 05:02 07:35 09:56 WBC RBC Hgb Hct MCH MCHC RDW Plt Count [place] % (Auto) Lymph # (Auto) Seg Neutrophils % Seg Neuts % (Manual) Lymphocytes % (Manual) Seg Neutrophils # Man Abs Lymphs (Manual) Lymphocytes # (Manual) ABG pH POC ABG pCO2 POC ABG pO2 ABG Hemoglobin ABG Oxyhemoglobin ABG Potassium ABG Chloride ABG Glucose Sodium 149 H Potassium 3.3 L Chloride Carbon Dioxide 38 H BUN 30 H Glucose 212 H POC Glucose 207 H Calcium 6.7 L Magnesium TIBC Alkaline Phosphatase Albumin Arterial Blood Glucose Arterial Blood Ionized Calcium Lymph Enumerat CD4/CD8 % CD3 Cells Absolute CD3 Count % CD4 Cells Absolute CD4 Count Absolute CD8 Count Absolute CD19 Count Crossmatch See Detail 09/03/20 09/03/20 09/04/20 12:05 16:04 05:53 WBC 14.8 H RBC 2.99 L Hgb 8.6 L Hct 26.4 L D MCH MCHC RDW 19.0 H Plt Count [place] % (Auto) Lymph # (Auto) Seg Neutrophils % Seg Neuts % (Manual) Lymphocytes % (Manual) Seg Neutrophils # Man Abs Lymphs (Manual) Lymphocytes # (Manual) ABG pH POC ABG pCO2 POC ABG pO2 ABG Hemoglobin ABG Oxyhemoglobin ABG Potassium ABG Chloride ABG Glucose Sodium Potassium Chloride Carbon Dioxide BUN Glucose POC Glucose 193 H 174 H Calcium Magnesium TIBC Alkaline Phosphatase Albumin Arterial Blood Glucose Arterial Blood Ionized Calcium Lymph Enumerat CD4/CD8 % CD3 Cells Absolute CD3 Count % CD4 Cells Absolute CD4 Count Absolute CD8 Count Absolute CD19 Count Crossmatch 09/04/20 09/04/20 09/04/20 05:53 05:53 08:33 WBC RBC Hgb Hct MCH MCHC RDW Plt Count [place] % (Auto) Lymph # (Auto) Seg Neutrophils % Seg Neuts % (Manual) Lymphocytes % (Manual) Seg Neutrophils # Man Abs Lymphs (Manual) 98 L Lymphocytes # (Manual) ABG pH POC ABG pCO2 POC ABG pO2 ABG Hemoglobin ABG Oxyhemoglobin ABG Potassium ABG Chloride ABG Glucose Sodium 149 H Potassium Chloride Carbon Dioxide 39 H BUN 28 H Glucose 175 H POC Glucose 222 H Calcium 6.9 L Magnesium TIBC 214 L Alkaline Phosphatase Albumin Arterial Blood Glucose Arterial Blood Ionized Calcium Lymph Enumerat CD4/CD8 0.68 L % CD3 Cells 51 L Absolute CD3 Count 50 L % CD4 Cells 20 L Absolute CD4 Count 20 L Absolute CD8 Count 29 L Absolute CD19 Count 17 L Crossmatch 09/04/20 09/04/20 09/05/20 11:21 15:42 04:56 WBC RBC 2.88 L Hgb 8.6 L Hct 25.3 L MCH MCHC RDW 19.6 H Plt Count [place] % (Auto) Lymph # (Auto) Seg Neutrophils % Seg Neuts % (Manual) Lymphocytes % (Manual) Seg Neutrophils # Man Abs Lymphs (Manual) Lymphocytes # (Manual) ABG pH POC ABG pCO2 POC ABG pO2 ABG Hemoglobin ABG Oxyhemoglobin ABG Potassium ABG Chloride ABG Glucose Sodium Potassium Chloride Carbon Dioxide BUN Glucose POC Glucose 253 H 240 H Calcium Magnesium TIBC Alkaline Phosphatase Albumin Arterial Blood Glucose Arterial Blood Ionized Calcium Lymph Enumerat CD4/CD8 % CD3 Cells Absolute CD3 Count % CD4 Cells Absolute CD4 Count Absolute CD8 Count Absolute CD19 Count Crossmatch 09/05/20 09/05/20 09/05/20 04:56 07:31 12:01 WBC RBC Hgb Hct MCH MCHC RDW Plt Count [place] % (Auto) Lymph # (Auto) Seg Neutrophils % Seg Neuts % (Manual) Lymphocytes % (Manual) Seg Neutrophils # Man Abs Lymphs (Manual) Lymphocytes # (Manual) ABG pH POC ABG pCO2 POC ABG pO2 ABG Hemoglobin ABG Oxyhemoglobin ABG Potassium ABG Chloride ABG Glucose Sodium 149 H Potassium 3.1 L Chloride Carbon Dioxide 48 H* D BUN 24 H Glucose 142 H POC Glucose 131 H 124 H Calcium 6.5 L Magnesium TIBC Alkaline Phosphatase Albumin Arterial Blood Glucose Arterial Blood Ionized Calcium Lymph Enumerat CD4/CD8 % CD3 Cells Absolute CD3 Count % CD4 Cells Absolute CD4 Count Absolute CD8 Count Absolute CD19 Count Crossmatch 09/05/20 09/05/20 09/06/20 16:52 20:19 04:26 WBC RBC Hgb Hct MCH MCHC RDW Plt Count [place] % (Auto) Lymph # (Auto) Seg Neutrophils % Seg Neuts % (Manual) Lymphocytes % (Manual) Seg Neutrophils # Man Abs Lymphs (Manual) Lymphocytes # (Manual) ABG pH POC ABG pCO2 POC ABG pO2 ABG Hemoglobin ABG Oxyhemoglobin ABG Potassium ABG Chloride ABG Glucose Sodium 151 H Potassium 3.3 L Chloride Carbon Dioxide 44 H* BUN 24 H Glucose POC Glucose 168 H 130 H Calcium 5.8 L* Magnesium TIBC Alkaline Phosphatase Albumin Arterial Blood Glucose Arterial Blood Ionized Calcium Lymph Enumerat CD4/CD8 % CD3 Cells Absolute CD3 Count % CD4 Cells Absolute CD4 Count Absolute CD8 Count Absolute CD19 Count Crossmatch 09/06/20 09/06/20 09/06/20 11:51 15:19 20:20 WBC RBC Hgb Hct MCH MCHC RDW Plt Count [place] % (Auto) Lymph # (Auto) Seg Neutrophils % Seg Neuts % (Manual) Lymphocytes % (Manual) Seg Neutrophils # Man Abs Lymphs (Manual) Lymphocytes # (Manual) ABG pH POC ABG pCO2 POC ABG pO2 ABG Hemoglobin ABG Oxyhemoglobin ABG Potassium ABG Chloride ABG Glucose Sodium Potassium Chloride Carbon Dioxide BUN Glucose POC Glucose 150 H 113 H 138 H Calcium Magnesium TIBC Alkaline Phosphatase Albumin Arterial Blood Glucose Arterial Blood Ionized Calcium Lymph Enumerat CD4/CD8 % CD3 Cells Absolute CD3 Count % CD4 Cells Absolute CD4 Count Absolute CD8 Count Absolute CD19 Count Crossmatch 09/07/20 09/07/20 09/07/20 07:41 09:41 11:47 WBC RBC Hgb Hct MCH MCHC RDW Plt Count [place] % (Auto) Lymph # (Auto) Seg Neutrophils % Seg Neuts % (Manual) Lymphocytes % (Manual) Seg Neutrophils # Man Abs Lymphs (Manual) Lymphocytes # (Manual) ABG pH POC ABG pCO2 POC ABG pO2 ABG Hemoglobin ABG Oxyhemoglobin ABG Potassium ABG Chloride ABG Glucose Sodium 146 H Potassium Chloride Carbon Dioxide 43 H* BUN 24 H Glucose 186 H POC Glucose 118 H 198 H Calcium 6.1 L Magnesium TIBC Alkaline Phosphatase Albumin Arterial Blood Glucose Arterial Blood Ionized Calcium Lymph Enumerat CD4/CD8 % CD3 Cells Absolute CD3 Count % CD4 Cells Absolute CD4 Count Absolute CD8 Count Absolute CD19 Count Crossmatch 09/07/20 09/08/20 09/08/20 21:58 05:09 07:55 WBC RBC Hgb Hct MCH MCHC RDW Plt Count [place] % (Auto) Lymph # (Auto) Seg Neutrophils % Seg Neuts % (Manual) Lymphocytes % (Manual) Seg Neutrophils # Man Abs Lymphs (Manual) Lymphocytes # (Manual) ABG pH POC ABG pCO2 POC ABG pO2 ABG Hemoglobin ABG Oxyhemoglobin ABG Potassium ABG Chloride ABG Glucose Sodium 146 H Potassium Chloride Carbon Dioxide 47 H* BUN Glucose 120 H POC Glucose 215 H 110 H Calcium 6.1 L Magnesium TIBC Alkaline Phosphatase Albumin Arterial Blood Glucose Arterial Blood Ionized Calcium Lymph Enumerat CD4/CD8 % CD3 Cells Absolute CD3 Count % CD4 Cells Absolute CD4 Count Absolute CD8 Count Absolute CD19 Count Crossmatch 09/08/20 09/08/20 09/08/20 11:27 16:46 20:17 WBC RBC Hgb Hct MCH MCHC RDW Plt Count [place] % (Auto) Lymph # (Auto) Seg Neutrophils % Seg Neuts % (Manual) Lymphocytes % (Manual) Seg Neutrophils # Man Abs Lymphs (Manual) Lymphocytes # (Manual) ABG pH POC ABG pCO2 POC ABG pO2 ABG Hemoglobin ABG Oxyhemoglobin ABG Potassium ABG Chloride ABG Glucose Sodium Potassium Chloride Carbon Dioxide BUN Glucose POC Glucose 113 H 139 H 122 H Calcium Magnesium TIBC Alkaline Phosphatase Albumin Arterial Blood Glucose Arterial Blood Ionized Calcium Lymph Enumerat CD4/CD8 % CD3 Cells Absolute CD3 Count % CD4 Cells Absolute CD4 Count Absolute CD8 Count Absolute CD19 Count Crossmatch 09/09/20 09/09/20 09/09/20 08:08 11:28 16:22 WBC RBC Hgb Hct MCH MCHC RDW Plt Count [place] % (Auto) Lymph # (Auto) Seg Neutrophils % Seg Neuts % (Manual) Lymphocytes % (Manual) Seg Neutrophils # Man Abs Lymphs (Manual) Lymphocytes # (Manual) ABG pH POC ABG pCO2 POC ABG pO2 ABG Hemoglobin ABG Oxyhemoglobin ABG Potassium ABG Chloride ABG Glucose Sodium Potassium Chloride Carbon Dioxide BUN Glucose POC Glucose 107 H 113 H 108 H Calcium Magnesium TIBC Alkaline Phosphatase Albumin Arterial Blood Glucose Arterial Blood Ionized Calcium Lymph Enumerat CD4/CD8 % CD3 Cells Absolute CD3 Count % CD4 Cells Absolute CD4 Count Absolute CD8 Count Absolute CD19 Count Crossmatch 09/10/20 09/10/20 09/10/20 11:55 16:10 20:56 WBC RBC Hgb Hct MCH MCHC RDW Plt Count [place] % (Auto) Lymph # (Auto) Seg Neutrophils % Seg Neuts % (Manual) Lymphocytes % (Manual) Seg Neutrophils # Man Abs Lymphs (Manual) Lymphocytes # (Manual) ABG pH POC ABG pCO2 POC ABG pO2 ABG Hemoglobin ABG Oxyhemoglobin ABG Potassium ABG Chloride ABG Glucose Sodium Potassium Chloride Carbon Dioxide BUN Glucose POC Glucose 156 H 127 H 311 H Calcium Magnesium TIBC Alkaline Phosphatase Albumin Arterial Blood Glucose Arterial Blood Ionized Calcium Lymph Enumerat CD4/CD8 % CD3 Cells Absolute CD3 Count % CD4 Cells Absolute CD4 Count Absolute CD8 Count Absolute CD19 Count Crossmatch 09/11/20 09/11/20 09/11/20 04:07 07:41 11:19 WBC RBC Hgb Hct MCH MCHC RDW Plt Count [place] % (Auto) Lymph # (Auto) Seg Neutrophils % Seg Neuts % (Manual) Lymphocytes % (Manual) Seg Neutrophils # Man Abs Lymphs (Manual) Lymphocytes # (Manual) ABG pH POC ABG pCO2 POC ABG pO2 ABG Hemoglobin ABG Oxyhemoglobin ABG Potassium ABG Chloride ABG Glucose Sodium Potassium Chloride 95.1 L Carbon Dioxide 48 H* BUN Glucose 135 H POC Glucose 151 H 152 H Calcium 6.1 L Magnesium TIBC Alkaline Phosphatase Albumin Arterial Blood Glucose Arterial Blood Ionized Calcium Lymph Enumerat CD4/CD8 % CD3 Cells Absolute CD3 Count % CD4 Cells Absolute CD4 Count Absolute CD8 Count Absolute CD19 Count Crossmatch 09/11/20 09/11/20 09/12/20 16:45 20:22 08:12 WBC RBC Hgb Hct MCH MCHC RDW Plt Count [place] % (Auto) Lymph # (Auto) Seg Neutrophils % Seg Neuts % (Manual) Lymphocytes % (Manual) Seg Neutrophils # Man Abs Lymphs (Manual) Lymphocytes # (Manual) ABG pH POC ABG pCO2 POC ABG pO2 ABG Hemoglobin ABG Oxyhemoglobin ABG Potassium ABG Chloride ABG Glucose Sodium Potassium Chloride Carbon Dioxide BUN Glucose POC Glucose 156 H 220 H 202 H Calcium Magnesium TIBC Alkaline Phosphatase Albumin Arterial Blood Glucose Arterial Blood Ionized Calcium Lymph Enumerat CD4/CD8 % CD3 Cells Absolute CD3 Count % CD4 Cells Absolute CD4 Count Absolute CD8 Count Absolute CD19 Count Crossmatch 09/12/20 09/12/20 09/12/20 10:52 12:37 16:47 WBC RBC Hgb Hct MCH MCHC RDW Plt Count [place] % (Auto) Lymph # (Auto) Seg Neutrophils % Seg Neuts % (Manual) Lymphocytes % (Manual) Seg Neutrophils # Man Abs Lymphs (Manual) Lymphocytes # (Manual) ABG pH POC ABG pCO2 POC ABG pO2 ABG Hemoglobin ABG Oxyhemoglobin ABG Potassium ABG Chloride ABG Glucose Sodium Potassium Chloride Carbon Dioxide BUN Glucose POC Glucose 62 L 170 H 261 H Calcium Magnesium TIBC Alkaline Phosphatase Albumin Arterial Blood Glucose Arterial Blood Ionized Calcium Lymph Enumerat CD4/CD8 % CD3 Cells Absolute CD3 Count % CD4 Cells Absolute CD4 Count Absolute CD8 Count Absolute CD19 Count Crossmatch 09/13/20 09/13/20 09/13/20 00:40 07:25 11:15 WBC RBC Hgb Hct MCH MCHC RDW Plt Count [place] % (Auto) Lymph # (Auto) Seg Neutrophils % Seg Neuts % (Manual) Lymphocytes % (Manual) Seg Neutrophils # Man Abs Lymphs (Manual) Lymphocytes # (Manual) ABG pH POC ABG pCO2 POC ABG pO2 ABG Hemoglobin ABG Oxyhemoglobin ABG Potassium ABG Chloride ABG Glucose Sodium Potassium Chloride Carbon Dioxide BUN Glucose POC Glucose 134 H 158 H 130 H Calcium Magnesium TIBC Alkaline Phosphatase Albumin Arterial Blood Glucose Arterial Blood Ionized Calcium Lymph Enumerat CD4/CD8 % CD3 Cells Absolute CD3 Count % CD4 Cells Absolute CD4 Count Absolute CD8 Count Absolute CD19 Count Crossmatch 09/13/20 09/13/20 09/14/20 15:30 20:37 10:27 WBC RBC Hgb Hct MCH MCHC RDW Plt Count [place] % (Auto) Lymph # (Auto) Seg Neutrophils % Seg Neuts % (Manual) Lymphocytes % (Manual) Seg Neutrophils # Man Abs Lymphs (Manual) Lymphocytes # (Manual) ABG pH 7.471 H POC ABG pCO2 62.3 H POC ABG pO2 ABG Hemoglobin 8.2 L ABG Oxyhemoglobin ABG Potassium 3.1 L ABG Chloride 94.0 L ABG Glucose 189 H Sodium Potassium Chloride Carbon Dioxide BUN Glucose POC Glucose 147 H 159 H Calcium Magnesium TIBC Alkaline Phosphatase Albumin Arterial Blood Glucose 189 H Arterial Blood Ionized Calcium 3.0 L Lymph Enumerat CD4/CD8 % CD3 Cells Absolute CD3 Count % CD4 Cells Absolute CD4 Count Absolute CD8 Count Absolute CD19 Count Crossmatch 09/14/20 09/14/20 09/14/20 11:48 17:11 21:56 WBC RBC Hgb Hct MCH MCHC RDW Plt Count [place] % (Auto) Lymph # (Auto) Seg Neutrophils % Seg Neuts % (Manual) Lymphocytes % (Manual) Seg Neutrophils # Man Abs Lymphs (Manual) Lymphocytes # (Manual) ABG pH POC ABG pCO2 POC ABG pO2 ABG Hemoglobin ABG Oxyhemoglobin ABG Potassium ABG Chloride ABG Glucose Sodium Potassium Chloride Carbon Dioxide BUN Glucose POC Glucose 187 H 145 H 221 H Calcium Magnesium TIBC Alkaline Phosphatase Albumin Arterial Blood Glucose Arterial Blood Ionized Calcium Lymph Enumerat CD4/CD8 % CD3 Cells Absolute CD3 Count % CD4 Cells Absolute CD4 Count Absolute CD8 Count Absolute CD19 Count Crossmatch 09/15/20 09/15/20 09/15/20 04:18 04:18 10:43 WBC RBC 1.73 L Hgb 5.3 L* Hct 16.1 L* MCH MCHC RDW 21.7 H Plt Count 136 L [place] % (Auto) Lymph # (Auto) 0.8 L Seg Neutrophils % 81.3 H Seg Neuts % (Manual) Lymphocytes % (Manual) Seg Neutrophils # Man Abs Lymphs (Manual) Lymphocytes # (Manual) ABG pH POC ABG pCO2 POC ABG pO2 ABG Hemoglobin ABG Oxyhemoglobin ABG Potassium ABG Chloride ABG Glucose Sodium 146 H Potassium 3.5 L Chloride 97.7 L Carbon Dioxide 42 H* BUN Glucose 102 H POC Glucose Calcium 5.5 L* Magnesium 1.60 L TIBC Alkaline Phosphatase Albumin Arterial Blood Glucose Arterial Blood Ionized Calcium Lymph Enumerat CD4/CD8 % CD3 Cells Absolute CD3 Count % CD4 Cells Absolute CD4 Count Absolute CD8 Count Absolute CD19 Count Crossmatch See Detail 09/15/20 09/15/20 09/15/20 10:43 12:41 23:48 WBC RBC Hgb 5.9 L* Hct 18.5 L* MCH MCHC RDW Plt Count [place] % (Auto) Lymph # (Auto) Seg Neutrophils % Seg Neuts % (Manual) Lymphocytes % (Manual) Seg Neutrophils # Man Abs Lymphs (Manual) Lymphocytes # (Manual) ABG pH POC ABG pCO2 POC ABG pO2 ABG Hemoglobin ABG Oxyhemoglobin ABG Potassium ABG Chloride ABG Glucose Sodium Potassium Chloride Carbon Dioxide BUN Glucose POC Glucose 119 H 187 H Calcium Magnesium TIBC Alkaline Phosphatase Albumin Arterial Blood Glucose Arterial Blood Ionized Calcium Lymph Enumerat CD4/CD8 % CD3 Cells Absolute CD3 Count % CD4 Cells Absolute CD4 Count Absolute CD8 Count Absolute CD19 Count Crossmatch 09/16/20 09/16/20 09/16/20 04:36 10:53 15:53 WBC RBC 2.79 L Hgb 8.8 L Hct 26.0 L D MCH MCHC RDW 17.0 H Plt Count [place] % (Auto) 8.9 H Lymph # (Auto) 0.8 L Seg Neutrophils % 73.5 H Seg Neuts % (Manual) Lymphocytes % (Manual) Seg Neutrophils # Man Abs Lymphs (Manual) Lymphocytes # (Manual) ABG pH POC ABG pCO2 POC ABG pO2 ABG Hemoglobin ABG Oxyhemoglobin ABG Potassium ABG Chloride ABG Glucose Sodium Potassium Chloride Carbon Dioxide BUN Glucose POC Glucose 122 H 196 H Calcium Magnesium TIBC Alkaline Phosphatase Albumin Arterial Blood Glucose Arterial Blood Ionized Calcium Lymph Enumerat CD4/CD8 % CD3 Cells Absolute CD3 Count % CD4 Cells Absolute CD4 Count Absolute CD8 Count Absolute CD19 Count Crossmatch 09/16/20 09/17/20 09/17/20 21:13 16:49 23:39 WBC RBC Hgb Hct MCH MCHC RDW Plt Count [place] % (Auto) Lymph # (Auto) Seg Neutrophils % Seg Neuts % (Manual) Lymphocytes % (Manual) Seg Neutrophils # Man Abs Lymphs (Manual) Lymphocytes # (Manual) ABG pH POC ABG pCO2 POC ABG pO2 ABG Hemoglobin ABG Oxyhemoglobin ABG Potassium ABG Chloride ABG Glucose Sodium Potassium Chloride Carbon Dioxide BUN Glucose POC Glucose 152 H 200 H 175 H Calcium Magnesium TIBC Alkaline Phosphatase Albumin Arterial Blood Glucose Arterial Blood Ionized Calcium Lymph Enumerat CD4/CD8 % CD3 Cells Absolute CD3 Count % CD4 Cells Absolute CD4 Count Absolute CD8 Count Absolute CD19 Count Crossmatch 09/18/20 09/18/20 09/18/20 07:46 11:31 16:36 WBC RBC Hgb Hct MCH MCHC RDW Plt Count [place] % (Auto) Lymph # (Auto) Seg Neutrophils % Seg Neuts % (Manual) Lymphocytes % (Manual) Seg Neutrophils # Man Abs Lymphs (Manual) Lymphocytes # (Manual) ABG pH POC ABG pCO2 POC ABG pO2 ABG Hemoglobin ABG Oxyhemoglobin ABG Potassium ABG Chloride ABG Glucose Sodium Potassium Chloride Carbon Dioxide BUN Glucose POC Glucose 162 H 135 H 459 H Calcium Magnesium TIBC Alkaline Phosphatase Albumin Arterial Blood Glucose Arterial Blood Ionized Calcium Lymph Enumerat CD4/CD8 % CD3 Cells Absolute CD3 Count % CD4 Cells Absolute CD4 Count Absolute CD8 Count Absolute CD19 Count Crossmatch 09/19/20 09/19/20 09/19/20 11:51 16:50 20:18 WBC RBC Hgb Hct MCH MCHC RDW Plt Count [place] % (Auto) Lymph # (Auto) Seg Neutrophils % Seg Neuts % (Manual) Lymphocytes % (Manual) Seg Neutrophils # Man Abs Lymphs (Manual) Lymphocytes # (Manual) ABG pH POC ABG pCO2 POC ABG pO2 ABG Hemoglobin ABG Oxyhemoglobin ABG Potassium ABG Chloride ABG Glucose Sodium Potassium Chloride Carbon Dioxide BUN Glucose POC Glucose 52 L 210 H 165 H Calcium Magnesium TIBC Alkaline Phosphatase Albumin Arterial Blood Glucose Arterial Blood Ionized Calcium Lymph Enumerat CD4/CD8 % CD3 Cells Absolute CD3 Count % CD4 Cells Absolute CD4 Count Absolute CD8 Count Absolute CD19 Count Crossmatch 09/20/20 09/20/20 07:33 11:55 WBC RBC Hgb Hct MCH MCHC RDW Plt Count [place] % (Auto) Lymph # (Auto) Seg Neutrophils % Seg Neuts % (Manual) Lymphocytes % (Manual) Seg Neutrophils # Man Abs Lymphs (Manual) Lymphocytes # (Manual) ABG pH POC ABG pCO2 POC ABG pO2 ABG Hemoglobin ABG Oxyhemoglobin ABG Potassium ABG Chloride ABG Glucose Sodium Potassium Chloride Carbon Dioxide BUN Glucose POC Glucose 106 H 127 H Calcium Magnesium TIBC Alkaline Phosphatase Albumin Arterial Blood Glucose Arterial Blood Ionized Calcium Lymph Enumerat CD4/CD8 % CD3 Cells Absolute CD3 Count % CD4 Cells Absolute CD4 Count Absolute CD8 Count Absolute CD19 Count Crossmatch Allied health notes reviewed: nursing
--- NOTE | 2020-09-20 18:55 | Event Note ---
Date: 09/14/20 09/14/2020; I had P2P with Dr. López[Nancie] [facility] insurance physician Discussed in detail patient's condition treatment and discharge planning The physician said patient does not fit the criteria for SNF, did not approve SNF placement However recommended to consider long-term care. I informed case management Ms. Ha the above conversation DC planning per case management Patient is medically stable for discharge
[2020-09-20] MEDS: oxyCODONE /ACETAMINOPHEN 5-325MG TAB PO PRN (21:29)
[2020-09-20] MEDS: MONTELUKAST 10 MG TAB PO SCH (21:35)
[2020-09-20] MEDS: MIRTAZAPINE 15 MG TAB PO SCH (21:35)
[2020-09-20] MEDS: INSULIN LISPRO 100 UNIT/ML SUB-Q SCH (22:00)
[2020-09-21] MEDS: IPRATROPIUM 0.02% NEBU 2.5 ML IH SCH ×3 (02:48→15:56)
[2020-09-21] MEDS: LEVALBUTEROL 0.63 MG/3 ML NEBU IH SCH ×3 (02:49→15:56)
[2020-09-21] MEDS: HEPARIN 5,000 UNIT/1 ML VIAL SUB-Q SCH (06:21)
[2020-09-21 06:40] LABS: Hematocrit 26.3 % (35.5-45.6); Hemoglobin 8.9 gm/dl (11.8-15.2)
[2020-09-21] MEDS: ARFORMOTEROL 15 MCG/2 ML NEBU IH SCH (08:10)
[2020-09-21] MEDS: BUDESONIDE 0.5 MG/2 ML NEBU IH SCH (08:10)
[2020-09-21] MEDS: FE FUMARATE/FA/MV, MIN COMB#15 CAP (HEMOCYTE PLUS) PO SCH (09:51)
[2020-09-21] MEDS: PANTOPRAZOLE 40 MG TAB PO SCH (09:51)
[2020-09-21] MEDS: MULTIVITAMINS ,THERAPEUTIC TAB PO SCH (09:51)
[2020-09-21] MEDS: predniSONE 10 MG TAB PO SCH (09:51)
[2020-09-21] MEDS: carvediloL 6.25 MG TAB PO SCH (09:51)
[2020-09-21] MEDS: ASPIRIN EC 81 MG TAB PO SCH (09:51)
[2020-09-21] MEDS: POLYETHYLENE GLYCOL 3350 17 GM POWDER PO SCH (09:51)
[2020-09-21] MEDS: CALCIUM CARBONATE 500 MG TAB CHEW PO SCH (09:52)
[2020-09-21] MEDS: INSULIN NPH/REGULAR 70/30 INJ SUB-Q SCH (09:52)
--- NOTE | 2020-09-21 10:05 | Progress Note ---
Assessment and Plan Assessment and plan: --Severe anemia; no external evidence of bleeding; Type and cross transfuse 3 units of PRBC, Check stool for occult blood closely monitor H&H and transfuse additional PRBC As needed Consult GI if needed --Severe hypocalcemia; replenish with calcium gluconate Oral calcium carbonate, monitor levels --Hypokalemia/hypomagnesemia; Replenished with KCl and magnesium sulfate Monitor electrolytes --history of HIV infection for many years; Asymptomatic for many years, not on antiretrovirals Patient follow-up private ID/health department as needed --SIRS; without organ dysfunction, present on admission --General debility; Physical therapy, Occupational Therapy, rehabilitation PT OT recommended SNF placement --Paroxysmal atrial fibrillation; Patient is in sinus rhythm today with heart rate in 70s No A. fib last 24 hours Cardiology following Continue beta-blockers, not a candidate for anticoagulation Due to severe anemia requiring blood transfusion --Acute exacerbation of COPD ; Patient is a current smoker Continue nasal cannula oxygen titrate O2 sats to more than 90% --Acute hypoxic respiratory failure ; requiring BiPAP Continue oxygen via nasal cannula 4 L today Titrate O2 sats more than 90%, BiPAP as needed --Leukocytosis- resolved --Hypertension; moderate control Continue current antihypertensives, as needed medications --Normocytic anemia Hemoglobin is down to 8.0 > 7.6 this morning Closely monitor H&H transfuse as needed --Hyperglycemia -likely secondary to steroids HD A1c 5.8, Accu-Chek sliding scale coverage Long-acting insulin if needed --Ongoing tobacco abuse Patient counseled on tobacco cessation Nicotine patch as needed --Mild to moderate malnutrition/hypoalbuminemia Nutrition supplements and supportive care --DVT prophylaxis; Heparin subcu/SCDs Physical therapy/Occupational Therapy evaluation and treatment DC planning per case management OT recommended subacute rehab /SNF placement. Awaiting placement, patient is medically stable for discharge Peer to peer with insurance physician, 09/14/2020, did not approve SNF placement no indication for SNF placement per [facility] insurance physician. Awaiting placement DC planning per case management Hospitalist Physical - Constitutional Vitals: Temp Pulse Resp BP Pulse Ox 97.9 F 73 14 93/52 91 09/21/20 03:23 09/21/20 03:23 09/21/20 03:23 09/21/20 03:23 09/21/20 03:23 General appearance: Present: no acute distress, well-nourished HEART Score - HEART Score Troponin: Troponin T < 0.010 ng/mL (0.00-0.029) 09/04/20 05:53 Results - Labs CBC & Chem 7: 09/21/20 04:23 09/15/20 04:18 Labs: Laboratory Last Values WBC 4.9 K/mm3 (4.5-11.0) 09/16/20 04:36 RBC 2.79 M/mm3 (3.65-5.03) L 09/16/20 04:36 Hgb 8.9 gm/dl (11.8-15.2) L 09/21/20 04:23 Hct 26.3 % (35.5-45.6) L 09/21/20 04:23 MCV 93 fl (84-94) 09/16/20 04:36 MCH 32 pg (28-32) 09/16/20 04:36 MCHC 34 % (32-34) 09/16/20 04:36 RDW 17.0 % (13.2-15.2) H 09/16/20 04:36 Plt Count 151 K/mm3 (140-440) 09/16/20 04:36 Lymph % (Auto) 16.6 % (13.4-35.0) 09/16/20 04:36 [place] % (Auto) 8.9 % (0.0-7.3) H 09/16/20 04:36 Eos % (Auto) 0.4 % (0.0-4.3) 09/16/20 04:36 Baso % (Auto) 0.6 % (0.0-1.8) 09/16/20 04:36 Lymph # (Auto) 0.8 K/mm3 (1.2-5.4) L 09/16/20 04:36 [place] # (Auto) 0.4 K/mm3 (0.0-0.8) 09/16/20 04:36 Eos # (Auto) 0.0 K/mm3 (0.0-0.4) 09/16/20 04:36 Baso # (Auto) 0.0 K/mm3 (0.0-0.1) 09/16/20 04:36 Add Manual Diff Complete 08/25/20 07:21 Total Counted 100 08/25/20 07:21 Seg Neutrophils % 73.5 % (40.0-70.0) H 09/16/20 04:36 Seg Neuts % (Manual) 96.0 % (40.0-70.0) H 08/25/20 07:21 Lymphocytes % (Manual) 3.0 % (13.4-35.0) L 08/25/20 07:21 Monocytes % (Manual) 2.0 % (0.0-7.3) 08/24/20 19:29 Myelocytes % 1.0 % 08/25/20 07:21 Nucleated RBC % Not Reportable 08/25/20 07:21 Seg Neutrophils # 3.6 K/mm3 (1.8-7.7) 09/16/20 04:36 Seg Neutrophils # Man 4.8 K/mm3 (1.8-7.7) 08/25/20 07:21 Band Neutrophils # 0.0 K/mm3 08/25/20 07:21 Abs Lymphs (Manual) 98 cells/uL (850-3900) L 09/04/20 05:53 Lymphocytes # (Manual) 0.2 K/mm3 (1.2-5.4) L 08/25/20 07:21 Abs React Lymphs (Man) 0.0 K/mm3 08/25/20 07:21 Monocytes # (Manual) 0.0 K/mm3 (0.0-0.8) 08/25/20 07:21 Eosinophils # (Manual) 0.0 K/mm3 (0.0-0.4) 08/25/20 07:21 Basophils # (Manual) 0.0 K/mm3 (0.0-0.1) 08/25/20 07:21 Metamyelocytes # 0.0 K/mm3 08/25/20 07:21 Myelocytes # 0.1 K/mm3 08/25/20 07:21 Promyelocytes # 0.0 K/mm3 08/25/20 07:21 Blast Cells # 0.0 K/mm3 08/25/20 07:21 WBC Morphology Not Reportable 08/25/20 07:21 Hypersegmented Neuts Not Reportable 08/25/20 07:21 Hyposegmented Neuts Not Reportable 08/25/20 07:21 Hypogranular Neuts Not Reportable 08/25/20 07:21 Smudge Cells Not Reportable 08/25/20 07:21 Toxic Granulation Not Reportable 08/25/20 07:21 Toxic Vacuolation Not Reportable 08/25/20 07:21 Dohle Bodies Not Reportable 08/25/20 07:21 Pelger-Huet Anomaly Not Reportable 08/25/20 07:21 Ruma Rods Not Reportable 08/25/20 07:21 Platelet Estimate Consistent w auto 08/25/20 07:21 Clumped Platelets Not Reportable 08/25/20 07:21 Plt Clumps, EDTA Not Reportable 08/25/20 07:21 Large Platelets Not Reportable 08/25/20 07:21 Giant Platelets Not Reportable 08/25/20 07:21 Platelet Satelliting Not Reportable 08/25/20 07:21 Plt Morphology Comment Not Reportable 08/25/20 07:21 RBC Morphology Not Reportable 08/25/20 07:21 Dimorphic RBCs Not Reportable 08/25/20 07:21 Polychromasia Not Reportable 08/25/20 07:21 Hypochromasia 1+ 08/25/20 07:21 Poikilocytosis 1+ 08/25/20 07:21 Anisocytosis 1+ 08/25/20 07:21 Microcytosis Not Reportable 08/25/20 07:21 Macrocytosis Not Reportable 08/25/20 07:21 Spherocytes Not Reportable 08/25/20 07:21 Pappenheimer Bodies Not Reportable 08/25/20 07:21 Sickle Cells Not Reportable 08/25/20 07:21 Target Cells Not Reportable 08/25/20 07:21 Tear Drop Cells Not Reportable 08/25/20 07:21 Ovalocytes 1+ 08/25/20 07:21 Helmet Cells Not Reportable 08/25/20 07:21 David-Abernathy Bodies Not Reportable 08/25/20 07:21 [place] Rings Not Reportable 08/25/20 07:21 Don Cells Not Reportable 08/25/20 07:21 Bite Cells Not Reportable 08/25/20 07:21 Crenated Cell Not Reportable 08/25/20 07:21 Elliptocytes 2+ 08/25/20 07:21 Acanthocytes (Spur) 1+ 08/25/20 07:21 Rouleaux Not Reportable 08/25/20 07:21 Hemoglobin C Crystals Not Reportable 08/25/20 07:21 Schistocytes Not Reportable 08/25/20 07:21 Malaria parasites Not Reportable 08/25/20 07:21 Ric Bodies Not Reportable 08/25/20 07:21 Hem Pathologist Commnt No 08/25/20 07:21 ABG pH 7.471 (7.320-7.450) H 09/14/20 10:27 POC ABG pCO2 62.3 mmHg (32.0-48.0) H 09/14/20 10:27 POC ABG pO2 96.7 mmHg (83-108) 09/14/20 10:27 POC ABG HCO3 44.4 09/14/20 10:27 ABG O2 Saturation 97.3 (0-100) 09/14/20 10:27 POC ABG Base Excess 18.6 09/14/20 10:27 ABG Hemoglobin 8.2 (12.0-17.5) L 09/14/20 10:27 ABG Oxyhemoglobin 96.1 (94-98) 09/14/20 10:27 ABG Methemoglobin 0.3 (0.0-1.5) 09/14/20 10:27 ABG Sodium 141.5 mmol/L (136.0-145.0) 09/14/20 10:27 ABG Potassium 3.1 mmol/L (3.40-4.50) L 09/14/20 10:27 ABG Chloride 94.0 mmol/L (98-107) L 09/14/20 10:27 ABG Glucose 189 mg/dL (65-95) H 09/14/20 10:27 Carboxyhemoglobin 0.9 (0.5-1.5) 09/14/20 10:27 FiO2 % 32.0 09/14/20 10:27 Sodium 146 mmol/L (137-145) H 09/15/20 04:18 Potassium 3.5 mmol/L (3.6-5.0) L 09/15/20 04:18 Chloride 97.7 mmol/L (98-107) L 09/15/20 04:18 Carbon Dioxide 42 mmol/L (22-30) H* 09/15/20 04:18 Anion Gap 10 mmol/L 09/15/20 04:18 BUN 14 mg/dL (9-20) 09/15/20 04:18 Creatinine 0.9 mg/dL (0.8-1.3) 09/15/20 04:18 Estimated GFR > 60 ml/min 09/15/20 04:18 BUN/Creatinine Ratio 16 % 09/15/20 04:18 Glucose 102 mg/dL (75-100) H 09/15/20 04:18 POC Glucose 126 mg/dL (70-105) H 09/21/20 07:50 Hemoglobin A1c 5.8 % (4-6) 08/25/20 07:27 Calcium 5.5 mg/dL (8.4-10.2) L* 09/15/20 04:18 Magnesium 1.80 mg/dL (1.7-2.3) 09/16/20 04:36 Iron 58 ug/dL (49-181) 09/04/20 05:53 TIBC 214 mcg/dL (250-450) L 09/04/20 05:53 Total Bilirubin 0.40 mg/dL (0.1-1.2) 08/24/20 19:29 AST 21 units/L (5-40) 08/24/20 19:29 ALT 36 units/L (7-56) 08/24/20 19:29 Alkaline Phosphatase 154 units/L (35-129) H 08/24/20 19:29 Troponin T < 0.010 ng/mL (0.00-0.029) 09/04/20 05:53 Total Protein 6.5 g/dL (6.3-8.2) 08/24/20 19:29 Albumin 3.4 g/dL (3.9-5) L 08/24/20 19:29 Albumin/Globulin Ratio 1.1 % 08/24/20 19:29 Arterial Blood Glucose 189 mg/dL (65-95) H 09/14/20 10:27 Arterial Blood Ionized Calcium 3.0 mg/dL (4.6-5.3) L 09/14/20 10:27 Lymph Enumerat CD4/CD8 0.68 (0.86-5.00) L 09/04/20 05:53 % CD3 Cells 51 % (57-85) L 09/04/20 05:53 Absolute CD3 Count 50 cells/uL (840-3060) L 09/04/20 05:53 % CD4 Cells 20 % (30-61) L 09/04/20 05:53 Absolute CD4 Count 20 cells/uL (490-1740) L 09/04/20 05:53 % CD8 Cells 30 % (12-42) 09/04/20 05:53 Absolute CD8 Count 29 cells/uL (180-1170) L 09/04/20 05:53 % CD19 Cells 17 % (6-29) 09/04/20 05:53 Absolute CD19 Count 17 cells/uL (110-660) L 09/04/20 05:53 Coronavirus (PCR) Negative (Negative) 09/01/20 Unknown Blood Type A POSITIVE 09/15/20 10:43 Antibody Screen Negative 09/15/20 10:43 Crossmatch See Detail 09/15/20 10:43 [place]/IV: Voiding Method Toilet Active Medications - Current Medications Current Medications: Generic Name Dose Route Start Last Admin Trade Name Freq PRN Reason Stop Dose Admin Acetaminophen 650 mg 08/24/20 22:12 09/13/20 20:35 Acetaminophen 325 Mg Tab PO 650 mg Q4H PRN Administration Pain MILD(1-3)/Fever >100.5/KOENIG Alprazolam 0.25 mg 08/30/20 11:30 09/20/20 08:34 Alprazolam 0.25 Mg Tab PO 0.25 mg Q8H PRN Administration Anxiety Arformoterol Tartrate 15 mcg 08/25/20 20:00 09/21/20 08:10 Arformoterol 15 Mcg/2 Ml Nebu IH 15 mcg Q12HRT NADIA Administration Aspirin 81 mg 08/25/20 10:00 09/21/20 09:51 Aspirin Ec 81 Mg Tab PO 81 mg QDAY NADIA Administration Atorvastatin Calcium 40 mg 08/25/20 22:00 09/20/20 21:31 Atorvastatin 40 Mg Tab PO 40 mg QHS NADIA Administration Budesonide 0.5 mg 08/25/20 08:00 09/21/20 08:10 Budesonide 0.5 Mg/2 Ml Nebu IH 0.5 mg Q12HRT NADIA Administration Calcium Carbonate/Glycine 500 mg 09/06/20 09:00 09/21/20 09:52 Calcium Carbonate 500 Mg Tab Chew PO 500 mg TID NADIA Administration Carvedilol 6.25 mg 09/02/20 12:00 09/21/20 09:51 Carvedilol 6.25 Mg Tab PO 6.25 mg BID NADIA Administration Guaifenesin 400 mg 08/29/20 13:00 08/30/20 05:33 Guaifenesin 200 Mg Tab PO 400 mg Q4HR PRN Administration Cough Heparin Sodium (Porcine) 5,000 unit 08/25/20 06:00 09/21/20 06:21 Heparin 5,000 Unit/1 Ml Vial SUB-Q 5,000 unit Q8HR NADIA Administration Hydralazine HCl 10 mg 08/24/20 22:14 08/31/20 13:40 Hydralazine 20 Mg/1 Ml Inj IV 10 mg Q6H PRN Administration SBP>/=160; DBP >/=100 Insulin Human Isoph/Insulin Regular 5 unit 09/10/20 17:00 09/21/20 09:52 Insulin Nph/Regular 70/30 Inj SUB-Q 5 unit BIDDIAB NADIA Administration Insulin Human Lispro 0 unit 08/25/20 22:00 09/20/20 22:00 Insulin Lispro 100 Unit/Ml SUB-Q Not Given QHS [facility] Protocol Ipratropium [place] 0.5 mg 09/02/20 16:00 09/21/20 08:10 Ipratropium 0.02% Nebu 2.5 Ml IH 0.5 mg Q8HRT NADIA Administration Levalbuterol HCl 0.63 mg 09/01/20 18:00 09/21/20 08:10 Levalbuterol 0.63 Mg/3 Ml Nebu IH 0.63 mg Q8HRT NADIA Administration Mirtazapine 7.5 mg 08/25/20 22:00 09/20/20 21:35 Mirtazapine 15 Mg Tab PO 7.5 mg QHS NADIA Administration Montelukast Sodium 10 mg 08/25/20 22:00 09/20/20 21:35 Montelukast 10 Mg Tab PO 10 mg QHS NADIA Administration Multivitamins 1 each 09/04/20 10:00 09/21/20 09:51 Multivitamins ,Therapeutic Tab PO 1 each QDAY NADIA Administration Multivitamins/Iron 1 each 09/04/20 10:00 09/21/20 09:51 Fe Fumarate/Fa/Mv, Min Comb#15 Cap (Hemocyte Plus) PO 1 each QDAY NADIA Administration Ondansetron HCl 4 mg 08/24/20 22:12 Ondansetron 4 Mg/2 Ml Inj IV Q8H PRN Nausea And Vomiting Oxycodone/Acetaminophen 1 tab 08/24/20 22:23 09/20/20 21:29 Oxycodone /Acetaminophen 5-325mg Tab PO 1 tab BID PRN Administration Pain , Severe (7-10) Pantoprazole Sodium 40 mg 08/25/20 10:00 09/21/20 09:51 Pantoprazole 40 Mg Tab PO 40 mg QDAY NADIA Administration Polyethylene Glycol 17 gm 08/28/20 10:00 09/21/20 09:51 Polyethylene Glycol 3350 17 Gm Powder PO 17 gm QDAY NADIA Administration Prednisone 10 mg 09/18/20 10:00 09/21/20 09:51 Prednisone 10 Mg Tab PO 10 mg QDAY NADIA Administration Sodium Chloride 10 ml 08/25/20 10:00 09/21/20 09:52 Sodium Chloride 0.9% 10 Ml Flush Syringe IV 10 ml BID NADIA Administration Sodium Chloride 10 ml 08/24/20 22:12 Sodium Chloride 0.9% 10 Ml Flush Syringe IV PRN PRN LINE FLUSH Tramadol HCl 50 mg 08/24/20 22:23 09/09/20 01:47 Tramadol 50 Mg Tab PO 50 mg Q6HR PRN Administration Pain, Moderate (4-6) Nutrition/Malnutrition Assess - Dietary Evaluation Nutrition/Malnutrition Findings: Nutrition Notes Start: 08/25/20 08:25 Freq: Status: Active Protocol: Document 09/20/20 12:47 (Rec: 09/20/20 12:51 [id number]) Nutrition Notes Initial or Follow up Brief Note Current Diagnosis COPD,Hypertension,Respiratory Failure Other Pertinent Diagnosis HIV Current Diet Cardiac/Consistent CHO + Ensure Clear BID Labs/Tests reviewed Pertinent Medications reviewed Height 5 ft 5 in Weight 50.4 kg [place] Body Weight (kg) 61.81 BMI 18.4 Weight change and time frame wt fluctuations Weight Status Underweight Subjective/Other Information Pt consuming 50% of meals and 100% of one ONS daily. Percent of energy/protein needs met: 70%/82% Burn Absent Trauma Absent Current % PO Fair (50-74%) Minimum of two criteria Yes Energy Intake (non-severe) <75% Estimated Energy Requirement >7 days Interpretation of Weight Loss (severe) >5% in 1 month #2 Nutrition Diagnosis Malnutrition Diagnosis Progress(for reassessment Continues documentation) #1 Nutrition Diagnosis Inadequate oral intake Diagnosis Progress(for reassessment Improved documentation) Is patient on ventilator? No Is Patient Ambulatory and/or Out of Bed No REE-([place]-St. Jeor-confined to bed) 1464.684 Kcal/Kg value to use for calculation 35 Approximate Energy Requirements Using 1764 kcal/Kg Calculation Used for Recommendations Kcal/kg Additional Notes Pro needs 1.2-1.5g/k-78g/ day Fluid needs 1ml/kcal Nutrition Intervention Change Diet Order: Continue current diet order Add Supplement/Snack (indicate name/kcal Ensure Clear BID /protein ) Provides kCal: 480 Provides Protein (gm) 16 Goal #1 PO intake of meals plus ONS to meet at least 75% energy and pro needs Goal #2 Wt maintenance and/or gain Follow-Up By: 09/22/20 Additional Comments F/U: intakes (meals, ONS), wt
[2020-09-21 10:34] VITALS: BP 129/90
--- NOTE | 2020-09-21 13:42 | Discharge Summary ---
Providers - Providers Date of Admission: 08/26/20 13:05 Date of discharge: 09/21/20 Attending physician: KIMBERLY GUTIERREZ 08/27/20 09:52 Consult to Physician [CONS] Routine Comment: Consulting Provider: MEGAN IRAHETA Physician Instructions: Reason For Exam: COPD 08/31/20 11:59 Physical Therapy Evaluation and Treat [CONS] Stat Comment: Reason For Exam: eval and treat 08/31/20 18:11 Occupational Therapy Evaluate and Treat [CONS] Routine Comment: Reason For Exam: Evaluate and treat/DC needs 09/03/20 06:41 Consult to Physician [CONS] Routine Comment: Consulting Provider: MARYANNE TURNER Physician Instructions: Reason For Exam: GI bleed 09/15/20 11:20 Consult to Physician [CONS] Routine Comment: Consulting Provider: GREGOR CLEMENT Physician Instructions: Reason For Exam: Severe anemia Hb 5.6/heme positive stool [facility] Hospitalization Condition: Critical Hospital course: --Severe anemia; no external evidence of bleeding; Type and cross transfuse 3 units of PRBC, Check stool for occult blood closely monitor H&H and transfuse additional PRBC As needed Consult GI if needed --Severe hypocalcemia; replenish with calcium gluconate Oral calcium carbonate, monitor levels --Hypokalemia/hypomagnesemia; Replenished with KCl and magnesium sulfate Monitor electrolytes --history of HIV infection for many years; Asymptomatic for many years, not on antiretrovirals Patient follow-up private ID/health department as needed --SIRS; without organ dysfunction, present on admission --General debility; Physical therapy, Occupational Therapy, rehabilitation PT OT recommended SNF placement --Paroxysmal atrial fibrillation; Patient is in sinus rhythm today with heart rate in 70s No A. fib last 24 hours Cardiology following Continue beta-blockers, not a candidate for anticoagulation Due to severe anemia requiring blood transfusion --Acute exacerbation of COPD ; Patient is a current smoker Continue nasal cannula oxygen titrate O2 sats to more than 90% --Acute hypoxic respiratory failure ; requiring BiPAP Continue oxygen via nasal cannula 4 L today Titrate O2 sats more than 90%, BiPAP as needed --Leukocytosis- resolved --Hypertension; moderate control Continue current antihypertensives, as needed medications --Normocytic anemia Hemoglobin is down to 8.0 > 7.6 this morning Closely monitor H&H transfuse as needed --Hyperglycemia -likely secondary to steroids HD A1c 5.8, Accu-Chek sliding scale coverage Long-acting insulin if needed --Ongoing tobacco abuse Patient counseled on tobacco cessation Nicotine patch as needed --Mild to moderate malnutrition/hypoalbuminemia Nutrition supplements and supportive care --DVT prophylaxis; Heparin subcu/SCDs Physical therapy/Occupational Therapy evaluation and treatment DC planning per case management OT recommended subacute rehab /SNF placement. Disposition: DC-01 TO HOME OR SELFCARE Time spent for discharge: 35 min Exam - Constitutional Vitals: Temp Pulse Resp BP Pulse Ox 97.7 F 99 H 20 129/90 94 09/21/20 10:13 09/21/20 10:13 09/21/20 10:13 09/21/20 10:13 09/21/20 10:13 Plan Activity: advance as tolerated, fall precautions Diet: other (cardiac diet) Additional Instructions: Fall precautions. If you have worsening symptoms contact MD or go to emergency room as needed. Advised to comply with medications diet follow-up visits [facility]Primary Care Provider[facility] - 7 Days GODWIN CANALES MD [Staff Physician] - 7 Days MEGAN IRAHETA MD [Staff Physician] - 14 Days Prescriptions: Acetaminophen [8 Hour Acetaminophen] 650 mg PO Q6HR PRN #20 tablet.er PRN Reason: Pain , Severe (7-10) Calcium Carbonate [Calcium Carbonate 400MG CHEW] 400 mg PO QDAY 30 Days #30 tab.chew dilTIAZem CD [Cardizem CD] 240 mg PO QDAY #30 capsule Docusate Sodium [Colace CAP] 100 mg PO BID PRN #60 capsule PRN Reason: Constip Unreliev By Mom/Or Npo Ferrous Sulfate [Feosol 325 MG tab] 325 mg PO QDAY 60 Days #60 tablet guaiFENesin [Guaifenesin] 400 mg PO Q4H #20 tablet Aspirin EC [Halfprin EC] 81 mg PO QDAY #30 tablet. AtorvaSTATin [Lipitor] 40 mg PO QHS #30 tablet Multivitamin Tab [Multiple Vitamin TAB (Theragran)] 1 each PO QDAY #30 tablet Prednisone [predniSONE 10 mg (6-Day Pack, 21 Tabs)] 10 mg PO .TAPER #1 tab.ds.pk Albuterol Mdi (or & Nicu Only) [ProAir HFA Inhaler] 2 puff IH QID PRN #8.5 gram PRN Reason: Shortness Of Breath Pantoprazole [Protonix TAB] 40 mg PO QDAY 30 Days #30 tablet Mirtazapine [Remeron 15mg TAB] 7.5 mg PO QHS #7 tablet Montelukast [Singulair] 10 mg PO QHS #30 tablet traMADoL [Ultram 50 MG tab] 50 mg PO Q8H PRN #12 tablet PRN Reason: Pain
--- NOTE | 2020-09-21 14:45 | Progress Note ---
Assessment and Plan Acute hypoxemic respiratory failure Acute COPD exacerbation ANGELIC GERD (gastroesophageal reflux disease) HIV (human immunodeficiency virus infection) Hypertension Cocaine use Tobacco use disorder Acute hypoxemic respiratory failure Acute COPD exacerbation ANGELIC GERD (gastroesophageal reflux disease) HIV (human immunodeficiency virus infection) Hypertension Cocaine use Tobacco use disorder - continue low dose Prednisone for severe COPD exacerbation - continue to wean supplemental oxygen to keep O2 sats > 89-90% - no new issues, continue care as below; - prn CXR's & ABG's at this point - discharge planning ok pulmonary-rodriguez - continue Bronchodilators (HEIDI & LABA) with pulm hygiene per RT - continue inhaled corticosteroids - avoid nephrotoxins, renally dose all medications - continue mobility protocols to prevent pressure ulcers - PT/OT as tolerated - Wound care per RN/WCT - continue accuchecks with glycemic control per SSI for target blood glucose < 180 mg/dL - tobacco abstinence strongly counseled at the bedside - home oxygen evaluation at discharge - GI & VTE prophylaxis - Flu & pneumovax per protocol - Pulmonary out patient follow up for PFTs and optimization of respiratory st atus - continue other care per attending / other consultants - prn analgesia per pain score ... re-evaluate in am & prn Subjective Date of service: 09/21/20 Principal diagnosis: Ac hypoxemic resp failure; AE-COPD; ANGELIC; HIV +ve; HTN; Cocaine Use Interval history: Patient is seen today for: Acute hypoxemic respiratory failure; AE-COPD; ANGELIC; HIV infection; HTN; Cocaine use; Tobacco use disorder Seen and examined at bedside; 24hour events reviewed; nursing and respiratory care staff consulted; no adverse overnight events reported to me; resting in bed; remains on supplemental oxygen; Objective Vital Signs - 12hr 09/21/20 09/21/20 09/21/20 03:23 10:00 10:09 Temperature 97.9 F 97.9 F Pulse Rate 73 88 Respiratory 14 20 Rate Blood Pressure 93/52 140/91 O2 Sat by Pulse 91 94 93 Oximetry 09/21/20 10:13 Temperature 97.7 F Pulse Rate 99 H Respiratory 20 Rate Blood Pressure 129/90 O2 Sat by Pulse 94 Oximetry Constitutional: no acute distress, alert Eyes: non-icteric ENT: oropharynx moist Neck: supple, no JVD Effort: mildly labored Ascultation: Bilateral: diminished breath sounds, wheezes (faint; end expiratory), rhonchi, other (Prolonged expiratory phase.) Percussion: Bilateral: not dull Cardiovascular: regular rate and rhythm Gastrointestinal: normoactive bowel sounds, soft, non-tender, non-distended Integumentary: normal Extremities: no cyanosis, no edema, pulses normal, no ischemia or petechiae Neurologic: normal mental status, non-focal exam, pupils equal and round, motor strength normal and Psychiatric: mood appropriate, affect normal CBC and BMP: 09/21/20 04:23 09/15/20 04:18 ABG, PT/INR, D-dimer: ABG ABG pH 7.471 (7.320-7.450) H 09/14/20 10:27 POC ABG pCO2 62.3 mmHg (32.0-48.0) H 09/14/20 10:27 POC ABG pO2 96.7 mmHg (83-108) 09/14/20 10:27 POC ABG HCO3 44.4 09/14/20 10:27 ABG O2 Saturation 97.3 (0-100) 09/14/20 10:27 Abnormal lab findings: Abnormal Labs 08/24/20 08/24/20 08/25/20 19:29 19:29 07:00 WBC RBC 3.36 L Hgb 9.7 L Hct 28.5 L MCH MCHC RDW 20.6 H Plt Count Roberts % (Auto) Lymph # (Auto) Seg Neutrophils % Seg Neuts % (Manual) 97.0 H Lymphocytes % (Manual) 1.0 L Seg Neutrophils # Man 10.2 H Abs Lymphs (Manual) Lymphocytes # (Manual) 0.1 L ABG pH POC ABG pCO2 POC ABG pO2 ABG Hemoglobin ABG Oxyhemoglobin ABG Potassium ABG Chloride ABG Glucose Sodium Potassium 3.3 L Chloride Carbon Dioxide BUN Glucose 121 H POC Glucose 211 H Calcium 7.6 L Magnesium TIBC Alkaline Phosphatase 154 H Albumin 3.4 L Arterial Blood Glucose Arterial Blood Ionized Calcium Lymph Enumerat CD4/CD8 % CD3 Cells Absolute CD3 Count % CD4 Cells Absolute CD4 Count Absolute CD8 Count Absolute CD19 Count Crossmatch 08/25/20 08/25/20 08/25/20 07:21 07:21 12:06 WBC RBC 3.13 L Hgb 8.9 L Hct 26.5 L MCH MCHC RDW 20.6 H Plt Count Roberts % (Auto) Lymph # (Auto) Seg Neutrophils % Seg Neuts % (Manual) 96.0 H Lymphocytes % (Manual) 3.0 L Seg Neutrophils # Man Abs Lymphs (Manual) Lymphocytes # (Manual) 0.2 L ABG pH POC ABG pCO2 POC ABG pO2 ABG Hemoglobin ABG Oxyhemoglobin ABG Potassium ABG Chloride ABG Glucose Sodium Potassium Chloride Carbon Dioxide 31 H BUN Glucose 208 H POC Glucose 162 H Calcium 7.4 L Magnesium TIBC Alkaline Phosphatase Albumin Arterial Blood Glucose Arterial Blood Ionized Calcium Lymph Enumerat CD4/CD8 % CD3 Cells Absolute CD3 Count % CD4 Cells Absolute CD4 Count Absolute CD8 Count Absolute CD19 Count Crossmatch 08/25/20 08/25/20 08/26/20 17:01 21:52 05:09 WBC 14.9 H RBC 3.11 L Hgb 8.9 L Hct 26.7 L MCH MCHC RDW 20.6 H Plt Count Roberts % (Auto) Lymph # (Auto) Seg Neutrophils % Seg Neuts % (Manual) Lymphocytes % (Manual) Seg Neutrophils # Man Abs Lymphs (Manual) Lymphocytes # (Manual) ABG pH POC ABG pCO2 POC ABG pO2 ABG Hemoglobin ABG Oxyhemoglobin ABG Potassium ABG Chloride ABG Glucose Sodium Potassium Chloride Carbon Dioxide BUN Glucose POC Glucose 158 H 175 H Calcium Magnesium TIBC Alkaline Phosphatase Albumin Arterial Blood Glucose Arterial Blood Ionized Calcium Lymph Enumerat CD4/CD8 % CD3 Cells Absolute CD3 Count % CD4 Cells Absolute CD4 Count Absolute CD8 Count Absolute CD19 Count Crossmatch 08/26/20 08/26/20 08/26/20 05:09 07:21 11:21 WBC RBC Hgb Hct MCH MCHC RDW Plt Count Roberts % (Auto) Lymph # (Auto) Seg Neutrophils % Seg Neuts % (Manual) Lymphocytes % (Manual) Seg Neutrophils # Man Abs Lymphs (Manual) Lymphocytes # (Manual) ABG pH POC ABG pCO2 POC ABG pO2 ABG Hemoglobin ABG Oxyhemoglobin ABG Potassium ABG Chloride ABG Glucose Sodium Potassium Chloride Carbon Dioxide 31 H BUN 21 H Glucose 183 H POC Glucose 149 H 145 H Calcium 7.0 L Magnesium TIBC Alkaline Phosphatase Albumin Arterial Blood Glucose Arterial Blood Ionized Calcium Lymph Enumerat CD4/CD8 % CD3 Cells Absolute CD3 Count % CD4 Cells Absolute CD4 Count Absolute CD8 Count Absolute CD19 Count Crossmatch 08/26/20 08/26/20 08/27/20 16:49 21:19 04:41 WBC 11.5 H RBC 2.93 L Hgb 8.0 L Hct 25.2 L MCH 27 L MCHC RDW 21.0 H Plt Count Roberts % (Auto) Lymph # (Auto) Seg Neutrophils % Seg Neuts % (Manual) Lymphocytes % (Manual) Seg Neutrophils # Man Abs Lymphs (Manual) Lymphocytes # (Manual) ABG pH POC ABG pCO2 POC ABG pO2 ABG Hemoglobin ABG Oxyhemoglobin ABG Potassium ABG Chloride ABG Glucose Sodium Potassium Chloride Carbon Dioxide BUN Glucose POC Glucose 177 H 144 H Calcium Magnesium TIBC Alkaline Phosphatase Albumin Arterial Blood Glucose Arterial Blood Ionized Calcium Lymph Enumerat CD4/CD8 % CD3 Cells Absolute CD3 Count % CD4 Cells Absolute CD4 Count Absolute CD8 Count Absolute CD19 Count Crossmatch 08/27/20 08/27/20 08/27/20 04:41 07:25 07:30 WBC RBC Hgb Hct MCH MCHC RDW Plt Count Roberts % (Auto) Lymph # (Auto) Seg Neutrophils % Seg Neuts % (Manual) Lymphocytes % (Manual) Seg Neutrophils # Man Abs Lymphs (Manual) Lymphocytes # (Manual) ABG pH POC ABG pCO2 POC ABG pO2 ABG Hemoglobin ABG Oxyhemoglobin ABG Potassium ABG Chloride ABG Glucose Sodium Potassium Chloride Carbon Dioxide 35 H BUN 24 H Glucose 173 H POC Glucose 153 H 143 H Calcium 7.3 L Magnesium TIBC Alkaline Phosphatase Albumin Arterial Blood Glucose Arterial Blood Ionized Calcium Lymph Enumerat CD4/CD8 % CD3 Cells Absolute CD3 Count % CD4 Cells Absolute CD4 Count Absolute CD8 Count Absolute CD19 Count Crossmatch 08/27/20 08/27/20 08/27/20 11:27 15:49 21:17 WBC RBC Hgb Hct MCH MCHC RDW Plt Count Roberts % (Auto) Lymph # (Auto) Seg Neutrophils % Seg Neuts % (Manual) Lymphocytes % (Manual) Seg Neutrophils # Man Abs Lymphs (Manual) Lymphocytes # (Manual) ABG pH POC ABG pCO2 POC ABG pO2 ABG Hemoglobin ABG Oxyhemoglobin ABG Potassium ABG Chloride ABG Glucose Sodium Potassium Chloride Carbon Dioxide BUN Glucose POC Glucose 236 H 184 H 144 H Calcium Magnesium TIBC Alkaline Phosphatase Albumin Arterial Blood Glucose Arterial Blood Ionized Calcium Lymph Enumerat CD4/CD8 % CD3 Cells Absolute CD3 Count % CD4 Cells Absolute CD4 Count Absolute CD8 Count Absolute CD19 Count Crossmatch 08/28/20 08/28/20 08/28/20 05:55 05:55 07:25 WBC RBC 2.58 L Hgb 7.6 L Hct 22.1 L MCH MCHC 35 H RDW 20.3 H Plt Count Roberts % (Auto) Lymph # (Auto) Seg Neutrophils % Seg Neuts % (Manual) Lymphocytes % (Manual) Seg Neutrophils # Man Abs Lymphs (Manual) Lymphocytes # (Manual) ABG pH POC ABG pCO2 POC ABG pO2 ABG Hemoglobin ABG Oxyhemoglobin ABG Potassium ABG Chloride ABG Glucose Sodium Potassium 3.5 L Chloride Carbon Dioxide BUN 33 H Glucose 183 H POC Glucose 164 H Calcium 6.8 L Magnesium TIBC Alkaline Phosphatase Albumin Arterial Blood Glucose Arterial Blood Ionized Calcium Lymph Enumerat CD4/CD8 % CD3 Cells Absolute CD3 Count % CD4 Cells Absolute CD4 Count Absolute CD8 Count Absolute CD19 Count Crossmatch 08/28/20 08/28/20 08/28/20 11:00 12:06 15:28 WBC RBC Hgb Hct MCH MCHC RDW Plt Count Roberts % (Auto) Lymph # (Auto) Seg Neutrophils % Seg Neuts % (Manual) Lymphocytes % (Manual) Seg Neutrophils # Man Abs Lymphs (Manual) Lymphocytes # (Manual) ABG pH 7.316 L POC ABG pCO2 68.0 H POC ABG pO2 75.4 L ABG Hemoglobin 8.3 L ABG Oxyhemoglobin 92.5 L ABG Potassium ABG Chloride ABG Glucose 302 H Sodium Potassium Chloride Carbon Dioxide BUN Glucose POC Glucose 233 H 146 H Calcium Magnesium TIBC Alkaline Phosphatase Albumin Arterial Blood Glucose 302 H Arterial Blood Ionized Calcium 3.8 L Lymph Enumerat CD4/CD8 % CD3 Cells Absolute CD3 Count % CD4 Cells Absolute CD4 Count Absolute CD8 Count Absolute CD19 Count Crossmatch 08/28/20 08/29/20 08/29/20 21:34 07:26 12:05 WBC RBC Hgb Hct MCH MCHC RDW Plt Count Roberts % (Auto) Lymph # (Auto) Seg Neutrophils % Seg Neuts % (Manual) Lymphocytes % (Manual) Seg Neutrophils # Man Abs Lymphs (Manual) Lymphocytes # (Manual) ABG pH POC ABG pCO2 POC ABG pO2 ABG Hemoglobin ABG Oxyhemoglobin ABG Potassium ABG Chloride ABG Glucose Sodium Potassium Chloride Carbon Dioxide BUN Glucose POC Glucose 201 H 167 H 253 H Calcium Magnesium TIBC Alkaline Phosphatase Albumin Arterial Blood Glucose Arterial Blood Ionized Calcium Lymph Enumerat CD4/CD8 % CD3 Cells Absolute CD3 Count % CD4 Cells Absolute CD4 Count Absolute CD8 Count Absolute CD19 Count Crossmatch 08/29/20 08/29/20 08/30/20 16:32 21:56 07:53 WBC RBC Hgb Hct MCH MCHC RDW Plt Count Roberts % (Auto) Lymph # (Auto) Seg Neutrophils % Seg Neuts % (Manual) Lymphocytes % (Manual) Seg Neutrophils # Man Abs Lymphs (Manual) Lymphocytes # (Manual) ABG pH POC ABG pCO2 POC ABG pO2 ABG Hemoglobin ABG Oxyhemoglobin ABG Potassium ABG Chloride ABG Glucose Sodium Potassium Chloride Carbon Dioxide BUN Glucose POC Glucose 128 H 220 H 286 H Calcium Magnesium TIBC Alkaline Phosphatase Albumin Arterial Blood Glucose Arterial Blood Ionized Calcium Lymph Enumerat CD4/CD8 % CD3 Cells Absolute CD3 Count % CD4 Cells Absolute CD4 Count Absolute CD8 Count Absolute CD19 Count Crossmatch 08/30/20 08/30/20 08/30/20 11:29 17:32 22:03 WBC RBC Hgb Hct MCH MCHC RDW Plt Count Roberts % (Auto) Lymph # (Auto) Seg Neutrophils % Seg Neuts % (Manual) Lymphocytes % (Manual) Seg Neutrophils # Man Abs Lymphs (Manual) Lymphocytes # (Manual) ABG pH POC ABG pCO2 POC ABG pO2 ABG Hemoglobin ABG Oxyhemoglobin ABG Potassium ABG Chloride ABG Glucose Sodium Potassium Chloride Carbon Dioxide BUN Glucose POC Glucose 299 H 260 H 196 H Calcium Magnesium TIBC Alkaline Phosphatase Albumin Arterial Blood Glucose Arterial Blood Ionized Calcium Lymph Enumerat CD4/CD8 % CD3 Cells Absolute CD3 Count % CD4 Cells Absolute CD4 Count Absolute CD8 Count Absolute CD19 Count Crossmatch 08/31/20 08/31/20 08/31/20 07:41 11:26 16:19 WBC RBC Hgb Hct MCH MCHC RDW Plt Count Roberts % (Auto) Lymph # (Auto) Seg Neutrophils % Seg Neuts % (Manual) Lymphocytes % (Manual) Seg Neutrophils # Man Abs Lymphs (Manual) Lymphocytes # (Manual) ABG pH POC ABG pCO2 POC ABG pO2 ABG Hemoglobin ABG Oxyhemoglobin ABG Potassium ABG Chloride ABG Glucose Sodium Potassium Chloride Carbon Dioxide BUN Glucose POC Glucose 166 H 269 H 265 H Calcium Magnesium TIBC Alkaline Phosphatase Albumin Arterial Blood Glucose Arterial Blood Ionized Calcium Lymph Enumerat CD4/CD8 % CD3 Cells Absolute CD3 Count % CD4 Cells Absolute CD4 Count Absolute CD8 Count Absolute CD19 Count Crossmatch 08/31/20 09/01/20 09/01/20 20:44 07:40 11:39 WBC RBC Hgb Hct MCH MCHC RDW Plt Count Roberts % (Auto) Lymph # (Auto) Seg Neutrophils % Seg Neuts % (Manual) Lymphocytes % (Manual) Seg Neutrophils # Man Abs Lymphs (Manual) Lymphocytes # (Manual) ABG pH POC ABG pCO2 POC ABG pO2 ABG Hemoglobin ABG Oxyhemoglobin ABG Potassium ABG Chloride ABG Glucose Sodium Potassium Chloride Carbon Dioxide BUN Glucose POC Glucose 243 H 272 H 320 H Calcium Magnesium TIBC Alkaline Phosphatase Albumin Arterial Blood Glucose Arterial Blood Ionized Calcium Lymph Enumerat CD4/CD8 % CD3 Cells Absolute CD3 Count % CD4 Cells Absolute CD4 Count Absolute CD8 Count Absolute CD19 Count Crossmatch 09/01/20 09/01/20 09/02/20 16:16 21:59 08:32 WBC RBC Hgb Hct MCH MCHC RDW Plt Count Roberts % (Auto) Lymph # (Auto) Seg Neutrophils % Seg Neuts % (Manual) Lymphocytes % (Manual) Seg Neutrophils # Man Abs Lymphs (Manual) Lymphocytes # (Manual) ABG pH POC ABG pCO2 POC ABG pO2 ABG Hemoglobin ABG Oxyhemoglobin ABG Potassium ABG Chloride ABG Glucose Sodium Potassium Chloride Carbon Dioxide BUN Glucose POC Glucose 319 H 157 H 195 H Calcium Magnesium TIBC Alkaline Phosphatase Albumin Arterial Blood Glucose Arterial Blood Ionized Calcium Lymph Enumerat CD4/CD8 % CD3 Cells Absolute CD3 Count % CD4 Cells Absolute CD4 Count Absolute CD8 Count Absolute CD19 Count Crossmatch 09/02/20 09/02/20 09/03/20 11:44 20:09 05:02 WBC RBC 2.25 L Hgb 6.5 L Hct 19.7 L* MCH MCHC RDW 21.3 H Plt Count Roberts % (Auto) Lymph # (Auto) Seg Neutrophils % Seg Neuts % (Manual) Lymphocytes % (Manual) Seg Neutrophils # Man Abs Lymphs (Manual) Lymphocytes # (Manual) ABG pH POC ABG pCO2 POC ABG pO2 ABG Hemoglobin ABG Oxyhemoglobin ABG Potassium ABG Chloride ABG Glucose Sodium Potassium Chloride Carbon Dioxide BUN Glucose POC Glucose 167 H 214 H Calcium Magnesium TIBC Alkaline Phosphatase Albumin Arterial Blood Glucose Arterial Blood Ionized Calcium Lymph Enumerat CD4/CD8 % CD3 Cells Absolute CD3 Count % CD4 Cells Absolute CD4 Count Absolute CD8 Count Absolute CD19 Count Crossmatch 09/03/20 09/03/20 09/03/20 05:02 07:35 09:56 WBC RBC Hgb Hct MCH MCHC RDW Plt Count Roberts % (Auto) Lymph # (Auto) Seg Neutrophils % Seg Neuts % (Manual) Lymphocytes % (Manual) Seg Neutrophils # Man Abs Lymphs (Manual) Lymphocytes # (Manual) ABG pH POC ABG pCO2 POC ABG pO2 ABG Hemoglobin ABG Oxyhemoglobin ABG Potassium ABG Chloride ABG Glucose Sodium 149 H Potassium 3.3 L Chloride Carbon Dioxide 38 H BUN 30 H Glucose 212 H POC Glucose 207 H Calcium 6.7 L Magnesium TIBC Alkaline Phosphatase Albumin Arterial Blood Glucose Arterial Blood Ionized Calcium Lymph Enumerat CD4/CD8 % CD3 Cells Absolute CD3 Count % CD4 Cells Absolute CD4 Count Absolute CD8 Count Absolute CD19 Count Crossmatch See Detail 09/03/20 09/03/20 09/04/20 12:05 16:04 05:53 WBC 14.8 H RBC 2.99 L Hgb 8.6 L Hct 26.4 L D MCH MCHC RDW 19.0 H Plt Count Roberts % (Auto) Lymph # (Auto) Seg Neutrophils % Seg Neuts % (Manual) Lymphocytes % (Manual) Seg Neutrophils # Man Abs Lymphs (Manual) Lymphocytes # (Manual) ABG pH POC ABG pCO2 POC ABG pO2 ABG Hemoglobin ABG Oxyhemoglobin ABG Potassium ABG Chloride ABG Glucose Sodium Potassium Chloride Carbon Dioxide BUN Glucose POC Glucose 193 H 174 H Calcium Magnesium TIBC Alkaline Phosphatase Albumin Arterial Blood Glucose Arterial Blood Ionized Calcium Lymph Enumerat CD4/CD8 % CD3 Cells Absolute CD3 Count % CD4 Cells Absolute CD4 Count Absolute CD8 Count Absolute CD19 Count Crossmatch 09/04/20 09/04/20 09/04/20 05:53 05:53 08:33 WBC RBC Hgb Hct MCH MCHC RDW Plt Count Roberts % (Auto) Lymph # (Auto) Seg Neutrophils % Seg Neuts % (Manual) Lymphocytes % (Manual) Seg Neutrophils # Man Abs Lymphs (Manual) 98 L Lymphocytes # (Manual) ABG pH POC ABG pCO2 POC ABG pO2 ABG Hemoglobin ABG Oxyhemoglobin ABG Potassium ABG Chloride ABG Glucose Sodium 149 H Potassium Chloride Carbon Dioxide 39 H BUN 28 H Glucose 175 H POC Glucose 222 H Calcium 6.9 L Magnesium TIBC 214 L Alkaline Phosphatase Albumin Arterial Blood Glucose Arterial Blood Ionized Calcium Lymph Enumerat CD4/CD8 0.68 L % CD3 Cells 51 L Absolute CD3 Count 50 L % CD4 Cells 20 L Absolute CD4 Count 20 L Absolute CD8 Count 29 L Absolute CD19 Count 17 L Crossmatch 09/04/20 09/04/20 09/05/20 11:21 15:42 04:56 WBC RBC 2.88 L Hgb 8.6 L Hct 25.3 L MCH MCHC RDW 19.6 H Plt Count Roberts % (Auto) Lymph # (Auto) Seg Neutrophils % Seg Neuts % (Manual) Lymphocytes % (Manual) Seg Neutrophils # Man Abs Lymphs (Manual) Lymphocytes # (Manual) ABG pH POC ABG pCO2 POC ABG pO2 ABG Hemoglobin ABG Oxyhemoglobin ABG Potassium ABG Chloride ABG Glucose Sodium Potassium Chloride Carbon Dioxide BUN Glucose POC Glucose 253 H 240 H Calcium Magnesium TIBC Alkaline Phosphatase Albumin Arterial Blood Glucose Arterial Blood Ionized Calcium Lymph Enumerat CD4/CD8 % CD3 Cells Absolute CD3 Count % CD4 Cells Absolute CD4 Count Absolute CD8 Count Absolute CD19 Count Crossmatch 09/05/20 09/05/20 09/05/20 04:56 07:31 12:01 WBC RBC Hgb Hct MCH MCHC RDW Plt Count Roberts % (Auto) Lymph # (Auto) Seg Neutrophils % Seg Neuts % (Manual) Lymphocytes % (Manual) Seg Neutrophils # Man Abs Lymphs (Manual) Lymphocytes # (Manual) ABG pH POC ABG pCO2 POC ABG pO2 ABG Hemoglobin ABG Oxyhemoglobin ABG Potassium ABG Chloride ABG Glucose Sodium 149 H Potassium 3.1 L Chloride Carbon Dioxide 48 H* D BUN 24 H Glucose 142 H POC Glucose 131 H 124 H Calcium 6.5 L Magnesium TIBC Alkaline Phosphatase Albumin Arterial Blood Glucose Arterial Blood Ionized Calcium Lymph Enumerat CD4/CD8 % CD3 Cells Absolute CD3 Count % CD4 Cells Absolute CD4 Count Absolute CD8 Count Absolute CD19 Count Crossmatch 09/05/20 09/05/20 09/06/20 16:52 20:19 04:26 WBC RBC Hgb Hct MCH MCHC RDW Plt Count Roberts % (Auto) Lymph # (Auto) Seg Neutrophils % Seg Neuts % (Manual) Lymphocytes % (Manual) Seg Neutrophils # Man Abs Lymphs (Manual) Lymphocytes # (Manual) ABG pH POC ABG pCO2 POC ABG pO2 ABG Hemoglobin ABG Oxyhemoglobin ABG Potassium ABG Chloride ABG Glucose Sodium 151 H Potassium 3.3 L Chloride Carbon Dioxide 44 H* BUN 24 H Glucose POC Glucose 168 H 130 H Calcium 5.8 L* Magnesium TIBC Alkaline Phosphatase Albumin Arterial Blood Glucose Arterial Blood Ionized Calcium Lymph Enumerat CD4/CD8 % CD3 Cells Absolute CD3 Count % CD4 Cells Absolute CD4 Count Absolute CD8 Count Absolute CD19 Count Crossmatch 09/06/20 09/06/20 09/06/20 11:51 15:19 20:20 WBC RBC Hgb Hct MCH MCHC RDW Plt Count Roberts % (Auto) Lymph # (Auto) Seg Neutrophils % Seg Neuts % (Manual) Lymphocytes % (Manual) Seg Neutrophils # Man Abs Lymphs (Manual) Lymphocytes # (Manual) ABG pH POC ABG pCO2 POC ABG pO2 ABG Hemoglobin ABG Oxyhemoglobin ABG Potassium ABG Chloride ABG Glucose Sodium Potassium Chloride Carbon Dioxide BUN Glucose POC Glucose 150 H 113 H 138 H Calcium Magnesium TIBC Alkaline Phosphatase Albumin Arterial Blood Glucose Arterial Blood Ionized Calcium Lymph Enumerat CD4/CD8 % CD3 Cells Absolute CD3 Count % CD4 Cells Absolute CD4 Count Absolute CD8 Count Absolute CD19 Count Crossmatch 09/07/20 09/07/20 09/07/20 07:41 09:41 11:47 WBC RBC Hgb Hct MCH MCHC RDW Plt Count Roberts % (Auto) Lymph # (Auto) Seg Neutrophils % Seg Neuts % (Manual) Lymphocytes % (Manual) Seg Neutrophils # Man Abs Lymphs (Manual) Lymphocytes # (Manual) ABG pH POC ABG pCO2 POC ABG pO2 ABG Hemoglobin ABG Oxyhemoglobin ABG Potassium ABG Chloride ABG Glucose Sodium 146 H Potassium Chloride Carbon Dioxide 43 H* BUN 24 H Glucose 186 H POC Glucose 118 H 198 H Calcium 6.1 L Magnesium TIBC Alkaline Phosphatase Albumin Arterial Blood Glucose Arterial Blood Ionized Calcium Lymph Enumerat CD4/CD8 % CD3 Cells Absolute CD3 Count % CD4 Cells Absolute CD4 Count Absolute CD8 Count Absolute CD19 Count Crossmatch 09/07/20 09/08/20 09/08/20 21:58 05:09 07:55 WBC RBC Hgb Hct MCH MCHC RDW Plt Count Roberts % (Auto) Lymph # (Auto) Seg Neutrophils % Seg Neuts % (Manual) Lymphocytes % (Manual) Seg Neutrophils # Man Abs Lymphs (Manual) Lymphocytes # (Manual) ABG pH POC ABG pCO2 POC ABG pO2 ABG Hemoglobin ABG Oxyhemoglobin ABG Potassium ABG Chloride ABG Glucose Sodium 146 H Potassium Chloride Carbon Dioxide 47 H* BUN Glucose 120 H POC Glucose 215 H 110 H Calcium 6.1 L Magnesium TIBC Alkaline Phosphatase Albumin Arterial Blood Glucose Arterial Blood Ionized Calcium Lymph Enumerat CD4/CD8 % CD3 Cells Absolute CD3 Count % CD4 Cells Absolute CD4 Count Absolute CD8 Count Absolute CD19 Count Crossmatch 09/08/20 09/08/20 09/08/20 11:27 16:46 20:17 WBC RBC Hgb Hct MCH MCHC RDW Plt Count Roberts % (Auto) Lymph # (Auto) Seg Neutrophils % Seg Neuts % (Manual) Lymphocytes % (Manual) Seg Neutrophils # Man Abs Lymphs (Manual) Lymphocytes # (Manual) ABG pH POC ABG pCO2 POC ABG pO2 ABG Hemoglobin ABG Oxyhemoglobin ABG Potassium ABG Chloride ABG Glucose Sodium Potassium Chloride Carbon Dioxide BUN Glucose POC Glucose 113 H 139 H 122 H Calcium Magnesium TIBC Alkaline Phosphatase Albumin Arterial Blood Glucose Arterial Blood Ionized Calcium Lymph Enumerat CD4/CD8 % CD3 Cells Absolute CD3 Count % CD4 Cells Absolute CD4 Count Absolute CD8 Count Absolute CD19 Count Crossmatch 09/09/20 09/09/20 09/09/20 08:08 11:28 16:22 WBC RBC Hgb Hct MCH MCHC RDW Plt Count Roberts % (Auto) Lymph # (Auto) Seg Neutrophils % Seg Neuts % (Manual) Lymphocytes % (Manual) Seg Neutrophils # Man Abs Lymphs (Manual) Lymphocytes # (Manual) ABG pH POC ABG pCO2 POC ABG pO2 ABG Hemoglobin ABG Oxyhemoglobin ABG Potassium ABG Chloride ABG Glucose Sodium Potassium Chloride Carbon Dioxide BUN Glucose POC Glucose 107 H 113 H 108 H Calcium Magnesium TIBC Alkaline Phosphatase Albumin Arterial Blood Glucose Arterial Blood Ionized Calcium Lymph Enumerat CD4/CD8 % CD3 Cells Absolute CD3 Count % CD4 Cells Absolute CD4 Count Absolute CD8 Count Absolute CD19 Count Crossmatch 09/10/20 09/10/20 09/10/20 11:55 16:10 20:56 WBC RBC Hgb Hct MCH MCHC RDW Plt Count Roberts % (Auto) Lymph # (Auto) Seg Neutrophils % Seg Neuts % (Manual) Lymphocytes % (Manual) Seg Neutrophils # Man Abs Lymphs (Manual) Lymphocytes # (Manual) ABG pH POC ABG pCO2 POC ABG pO2 ABG Hemoglobin ABG Oxyhemoglobin ABG Potassium ABG Chloride ABG Glucose Sodium Potassium Chloride Carbon Dioxide BUN Glucose POC Glucose 156 H 127 H 311 H Calcium Magnesium TIBC Alkaline Phosphatase Albumin Arterial Blood Glucose Arterial Blood Ionized Calcium Lymph Enumerat CD4/CD8 % CD3 Cells Absolute CD3 Count % CD4 Cells Absolute CD4 Count Absolute CD8 Count Absolute CD19 Count Crossmatch 09/11/20 09/11/20 09/11/20 04:07 07:41 11:19 WBC RBC Hgb Hct MCH MCHC RDW Plt Count Roberts % (Auto) Lymph # (Auto) Seg Neutrophils % Seg Neuts % (Manual) Lymphocytes % (Manual) Seg Neutrophils # Man Abs Lymphs (Manual) Lymphocytes # (Manual) ABG pH POC ABG pCO2 POC ABG pO2 ABG Hemoglobin ABG Oxyhemoglobin ABG Potassium ABG Chloride ABG Glucose Sodium Potassium Chloride 95.1 L Carbon Dioxide 48 H* BUN Glucose 135 H POC Glucose 151 H 152 H Calcium 6.1 L Magnesium TIBC Alkaline Phosphatase Albumin Arterial Blood Glucose Arterial Blood Ionized Calcium Lymph Enumerat CD4/CD8 % CD3 Cells Absolute CD3 Count % CD4 Cells Absolute CD4 Count Absolute CD8 Count Absolute CD19 Count Crossmatch 09/11/20 09/11/20 09/12/20 16:45 20:22 08:12 WBC RBC Hgb Hct MCH MCHC RDW Plt Count Roberts % (Auto) Lymph # (Auto) Seg Neutrophils % Seg Neuts % (Manual) Lymphocytes % (Manual) Seg Neutrophils # Man Abs Lymphs (Manual) Lymphocytes # (Manual) ABG pH POC ABG pCO2 POC ABG pO2 ABG Hemoglobin ABG Oxyhemoglobin ABG Potassium ABG Chloride ABG Glucose Sodium Potassium Chloride Carbon Dioxide BUN Glucose POC Glucose 156 H 220 H 202 H Calcium Magnesium TIBC Alkaline Phosphatase Albumin Arterial Blood Glucose Arterial Blood Ionized Calcium Lymph Enumerat CD4/CD8 % CD3 Cells Absolute CD3 Count % CD4 Cells Absolute CD4 Count Absolute CD8 Count Absolute CD19 Count Crossmatch 09/12/20 09/12/20 09/12/20 10:52 12:37 16:47 WBC RBC Hgb Hct MCH MCHC RDW Plt Count Roberts % (Auto) Lymph # (Auto) Seg Neutrophils % Seg Neuts % (Manual) Lymphocytes % (Manual) Seg Neutrophils # Man Abs Lymphs (Manual) Lymphocytes # (Manual) ABG pH POC ABG pCO2 POC ABG pO2 ABG Hemoglobin ABG Oxyhemoglobin ABG Potassium ABG Chloride ABG Glucose Sodium Potassium Chloride Carbon Dioxide BUN Glucose POC Glucose 62 L 170 H 261 H Calcium Magnesium TIBC Alkaline Phosphatase Albumin Arterial Blood Glucose Arterial Blood Ionized Calcium Lymph Enumerat CD4/CD8 % CD3 Cells Absolute CD3 Count % CD4 Cells Absolute CD4 Count Absolute CD8 Count Absolute CD19 Count Crossmatch 09/13/20 09/13/20 09/13/20 00:40 07:25 11:15 WBC RBC Hgb Hct MCH MCHC RDW Plt Count [place] % (Auto) Lymph # (Auto) Seg Neutrophils % Seg Neuts % (Manual) Lymphocytes % (Manual) Seg Neutrophils # Man Abs Lymphs (Manual) Lymphocytes # (Manual) ABG pH POC ABG pCO2 POC ABG pO2 ABG Hemoglobin ABG Oxyhemoglobin ABG Potassium ABG Chloride ABG Glucose Sodium Potassium Chloride Carbon Dioxide BUN Glucose POC Glucose 134 H 158 H 130 H Calcium Magnesium TIBC Alkaline Phosphatase Albumin Arterial Blood Glucose Arterial Blood Ionized Calcium Lymph Enumerat CD4/CD8 % CD3 Cells Absolute CD3 Count % CD4 Cells Absolute CD4 Count Absolute CD8 Count Absolute CD19 Count Crossmatch 09/13/20 09/13/20 09/14/20 15:30 20:37 10:27 WBC RBC Hgb Hct MCH MCHC RDW Plt Count [place] % (Auto) Lymph # (Auto) Seg Neutrophils % Seg Neuts % (Manual) Lymphocytes % (Manual) Seg Neutrophils # Man Abs Lymphs (Manual) Lymphocytes # (Manual) ABG pH 7.471 H POC ABG pCO2 62.3 H POC ABG pO2 ABG Hemoglobin 8.2 L ABG Oxyhemoglobin ABG Potassium 3.1 L ABG Chloride 94.0 L ABG Glucose 189 H Sodium Potassium Chloride Carbon Dioxide BUN Glucose POC Glucose 147 H 159 H Calcium Magnesium TIBC Alkaline Phosphatase Albumin Arterial Blood Glucose 189 H Arterial Blood Ionized Calcium 3.0 L Lymph Enumerat CD4/CD8 % CD3 Cells Absolute CD3 Count % CD4 Cells Absolute CD4 Count Absolute CD8 Count Absolute CD19 Count Crossmatch 09/14/20 09/14/20 09/14/20 11:48 17:11 21:56 WBC RBC Hgb Hct MCH MCHC RDW Plt Count [place] % (Auto) Lymph # (Auto) Seg Neutrophils % Seg Neuts % (Manual) Lymphocytes % (Manual) Seg Neutrophils # Man Abs Lymphs (Manual) Lymphocytes # (Manual) ABG pH POC ABG pCO2 POC ABG pO2 ABG Hemoglobin ABG Oxyhemoglobin ABG Potassium ABG Chloride ABG Glucose Sodium Potassium Chloride Carbon Dioxide BUN Glucose POC Glucose 187 H 145 H 221 H Calcium Magnesium TIBC Alkaline Phosphatase Albumin Arterial Blood Glucose Arterial Blood Ionized Calcium Lymph Enumerat CD4/CD8 % CD3 Cells Absolute CD3 Count % CD4 Cells Absolute CD4 Count Absolute CD8 Count Absolute CD19 Count Crossmatch 09/15/20 09/15/20 09/15/20 04:18 04:18 10:43 WBC RBC 1.73 L Hgb 5.3 L* Hct 16.1 L* MCH MCHC RDW 21.7 H Plt Count 136 L Roberts % (Auto) Lymph # (Auto) 0.8 L Seg Neutrophils % 81.3 H Seg Neuts % (Manual) Lymphocytes % (Manual) Seg Neutrophils # Man Abs Lymphs (Manual) Lymphocytes # (Manual) ABG pH POC ABG pCO2 POC ABG pO2 ABG Hemoglobin ABG Oxyhemoglobin ABG Potassium ABG Chloride ABG Glucose Sodium 146 H Potassium 3.5 L Chloride 97.7 L Carbon Dioxide 42 H* BUN Glucose 102 H POC Glucose Calcium 5.5 L* Magnesium 1.60 L TIBC Alkaline Phosphatase Albumin Arterial Blood Glucose Arterial Blood Ionized Calcium Lymph Enumerat CD4/CD8 % CD3 Cells Absolute CD3 Count % CD4 Cells Absolute CD4 Count Absolute CD8 Count Absolute CD19 Count Crossmatch See Detail 09/15/20 09/15/20 09/15/20 10:43 12:41 23:48 WBC RBC Hgb 5.9 L* Hct 18.5 L* MCH MCHC RDW Plt Count [place] % (Auto) Lymph # (Auto) Seg Neutrophils % Seg Neuts % (Manual) Lymphocytes % (Manual) Seg Neutrophils # Man Abs Lymphs (Manual) Lymphocytes # (Manual) ABG pH POC ABG pCO2 POC ABG pO2 ABG Hemoglobin ABG Oxyhemoglobin ABG Potassium ABG Chloride ABG Glucose Sodium Potassium Chloride Carbon Dioxide BUN Glucose POC Glucose 119 H 187 H Calcium Magnesium TIBC Alkaline Phosphatase Albumin Arterial Blood Glucose Arterial Blood Ionized Calcium Lymph Enumerat CD4/CD8 % CD3 Cells Absolute CD3 Count % CD4 Cells Absolute CD4 Count Absolute CD8 Count Absolute CD19 Count Crossmatch 09/16/20 09/16/20 09/16/20 04:36 10:53 15:53 WBC RBC 2.79 L Hgb 8.8 L Hct 26.0 L D MCH MCHC RDW 17.0 H Plt Count Roberts % (Auto) 8.9 H Lymph # (Auto) 0.8 L Seg Neutrophils % 73.5 H Seg Neuts % (Manual) Lymphocytes % (Manual) Seg Neutrophils # Man Abs Lymphs (Manual) Lymphocytes # (Manual) ABG pH POC ABG pCO2 POC ABG pO2 ABG Hemoglobin ABG Oxyhemoglobin ABG Potassium ABG Chloride ABG Glucose Sodium Potassium Chloride Carbon Dioxide BUN Glucose POC Glucose 122 H 196 H Calcium Magnesium TIBC Alkaline Phosphatase Albumin Arterial Blood Glucose Arterial Blood Ionized Calcium Lymph Enumerat CD4/CD8 % CD3 Cells Absolute CD3 Count % CD4 Cells Absolute CD4 Count Absolute CD8 Count Absolute CD19 Count Crossmatch 09/16/20 09/17/20 09/17/20 21:13 16:49 23:39 WBC RBC Hgb Hct MCH MCHC RDW Plt Count [place] % (Auto) Lymph # (Auto) Seg Neutrophils % Seg Neuts % (Manual) Lymphocytes % (Manual) Seg Neutrophils # Man Abs Lymphs (Manual) Lymphocytes # (Manual) ABG pH POC ABG pCO2 POC ABG pO2 ABG Hemoglobin ABG Oxyhemoglobin ABG Potassium ABG Chloride ABG Glucose Sodium Potassium Chloride Carbon Dioxide BUN Glucose POC Glucose 152 H 200 H 175 H Calcium Magnesium TIBC Alkaline Phosphatase Albumin Arterial Blood Glucose Arterial Blood Ionized Calcium Lymph Enumerat CD4/CD8 % CD3 Cells Absolute CD3 Count % CD4 Cells Absolute CD4 Count Absolute CD8 Count Absolute CD19 Count Crossmatch 09/18/20 09/18/20 09/18/20 07:46 11:31 16:36 WBC RBC Hgb Hct MCH MCHC RDW Plt Count [place] % (Auto) Lymph # (Auto) Seg Neutrophils % Seg Neuts % (Manual) Lymphocytes % (Manual) Seg Neutrophils # Man Abs Lymphs (Manual) Lymphocytes # (Manual) ABG pH POC ABG pCO2 POC ABG pO2 ABG Hemoglobin ABG Oxyhemoglobin ABG Potassium ABG Chloride ABG Glucose Sodium Potassium Chloride Carbon Dioxide BUN Glucose POC Glucose 162 H 135 H 459 H Calcium Magnesium TIBC Alkaline Phosphatase Albumin Arterial Blood Glucose Arterial Blood Ionized Calcium Lymph Enumerat CD4/CD8 % CD3 Cells Absolute CD3 Count % CD4 Cells Absolute CD4 Count Absolute CD8 Count Absolute CD19 Count Crossmatch 09/19/20 09/19/20 09/19/20 11:51 16:50 20:18 WBC RBC Hgb Hct MCH MCHC RDW Plt Count [place] % (Auto) Lymph # (Auto) Seg Neutrophils % Seg Neuts % (Manual) Lymphocytes % (Manual) Seg Neutrophils # Man Abs Lymphs (Manual) Lymphocytes # (Manual) ABG pH POC ABG pCO2 POC ABG pO2 ABG Hemoglobin ABG Oxyhemoglobin ABG Potassium ABG Chloride ABG Glucose Sodium Potassium Chloride Carbon Dioxide BUN Glucose POC Glucose 52 L 210 H 165 H Calcium Magnesium TIBC Alkaline Phosphatase Albumin Arterial Blood Glucose Arterial Blood Ionized Calcium Lymph Enumerat CD4/CD8 % CD3 Cells Absolute CD3 Count % CD4 Cells Absolute CD4 Count Absolute CD8 Count Absolute CD19 Count Crossmatch 09/20/20 09/20/20 09/20/20 07:33 11:55 15:44 WBC RBC Hgb Hct MCH MCHC RDW Plt Count [place] % (Auto) Lymph # (Auto) Seg Neutrophils % Seg Neuts % (Manual) Lymphocytes % (Manual) Seg Neutrophils # Man Abs Lymphs (Manual) Lymphocytes # (Manual) ABG pH POC ABG pCO2 POC ABG pO2 ABG Hemoglobin ABG Oxyhemoglobin ABG Potassium ABG Chloride ABG Glucose Sodium Potassium Chloride Carbon Dioxide BUN Glucose POC Glucose 106 H 127 H 186 H Calcium Magnesium TIBC Alkaline Phosphatase Albumin Arterial Blood Glucose Arterial Blood Ionized Calcium Lymph Enumerat CD4/CD8 % CD3 Cells Absolute CD3 Count % CD4 Cells Absolute CD4 Count Absolute CD8 Count Absolute CD19 Count Crossmatch 09/20/20 09/21/20 09/21/20 20:39 04:23 07:50 WBC RBC Hgb 8.9 L Hct 26.3 L MCH MCHC RDW Plt Count [place] % (Auto) Lymph # (Auto) Seg Neutrophils % Seg Neuts % (Manual) Lymphocytes % (Manual) Seg Neutrophils # Man Abs Lymphs (Manual) Lymphocytes # (Manual) ABG pH POC ABG pCO2 POC ABG pO2 ABG Hemoglobin ABG Oxyhemoglobin ABG Potassium ABG Chloride ABG Glucose Sodium Potassium Chloride Carbon Dioxide BUN Glucose POC Glucose 147 H 126 H Calcium Magnesium TIBC Alkaline Phosphatase Albumin Arterial Blood Glucose Arterial Blood Ionized Calcium Lymph Enumerat CD4/CD8 % CD3 Cells Absolute CD3 Count % CD4 Cells Absolute CD4 Count Absolute CD8 Count Absolute CD19 Count Crossmatch Allied health notes reviewed: nursing
== END 2020-09-21 17:25 | disposition home or self-care (01) | DRG 189 ==
LOC: ED 17:56 → 3A 21:49 → OBSVTOIN 08-26 13:05 → 4A 09-01 18:06
PROVIDERS: ADMIT Hospitalist; ATTEND Internal Medicine
PROC: 5A09557 Assistance with Respiratory Ventilation, Greater than 96 Consecutive Hours, Continuous Positive Airway Pressure (ICD-10-PCS; 2020-08-28)
PROC: 30233N1 Transfusion of Nonautologous Red Blood Cells into Peripheral Vein, Percutaneous Approach (ICD-10-PCS; principal; 2020-09-03)
PROC: 4A033R1 Measurement of Arterial Saturation, Peripheral, Percutaneous Approach (ICD-10-PCS; 2020-09-14)
DX: J96.01 Acute respiratory failure with hypoxia (principal); N17.0 Acute kidney failure with tubular necrosis; J44.1 Chronic obstructive pulmonary disease with (acute) exacerbation; E44.0 Moderate protein-calorie malnutrition; R65.10 Systemic inflammatory response syndrome (SIRS) of non-infectious origin without acute organ dysfunction; J45.901 Unspecified asthma with (acute) exacerbation; B20 Human immunodeficiency virus [HIV] disease; E87.0 Hyperosmolality and hypernatremia; I48.0 Paroxysmal atrial fibrillation; I10 Essential (primary) hypertension; E78.5 Hyperlipidemia, unspecified; Z68.22 Body mass index [BMI] 22.0-22.9, adult; I25.10 Atherosclerotic heart disease of native coronary artery without angina pectoris; Z20.822 Contact with and (suspected) exposure to COVID-19; K21.9 Gastro-esophageal reflux disease without esophagitis; D63.8 Anemia in other chronic diseases classified elsewhere; E87.6 Hypokalemia; E83.51 Hypocalcemia; M54.9 Dorsalgia, unspecified; G89.29 Other chronic pain; F17.200 Nicotine dependence, unspecified, uncomplicated; Z79.82 Long term (current) use of aspirin; Z86.711 Personal history of pulmonary embolism; Z71.6 Tobacco abuse counseling; E11.65 Type 2 diabetes mellitus with hyperglycemia; F14.90 Cocaine use, unspecified, uncomplicated; Z91.19 Patient's noncompliance with other medical treatment and regimen; R53.81 Other malaise
CPT/HCPCS: 36415; 36600; 71045; 71046; 80048; 80053; 82024; 82270; 82805; 82962; 83036; 83550; 83735; 84484; 85007; 85014; 85018; 85025; 85027; 86850; 86900; 86901; 86920; 93005; 94640; 94644; 94660; G0378; A9270-GY; J0282; J0360; J0610; J1644; J1815; J1885; J2920; J2930; J3475; J7040; J7050; J7060; J7512; P9016; U0003